=== PATIENT | female | born 1960 | race Caucasian/White ===

== ENCOUNTER 2022-12-18 12:43 | Day surgery (SDC) | payer MEDICARE, MEDICAID, SELFPAY ==
[2022-12-13 09:02] VITALS: BMI 30.6
--- NOTE | 2022-12-18 13:02 | HO.ANESPROP2 ---
[facility] Past Medical History Medical History Atrial fibrillation Chronic pain syndrome COPD (chronic obstructive pulmonary disease) Coronary atherosclerosis Depression Elevated cholesterol Fibromyalgia Gitelman syndrome Heart valve regurgitation HTN (hypertension) Hypercalcemia Hypothyroid Mild asthma Multiple sclerosis Myocardial infarction Neuropathy Opioid dependence Orthostatic hypotension Polycystic ovarian syndrome PTSD (post-traumatic stress disorder) Pulmonary embolism Raynaud's disease Sleep apnea Thyroid nodule Type 2 diabetes mellitus Surgical History Surgical History History of colon resection History of lobectomy of thyroid History of rectal surgery Hx of appendectomy Hx of dilation and curettage Hx of heart artery stent Hx of hernia repair Hx of hysterectomy Hx of reduction mammoplasty Hx of tubal ligation S/P panniculectomy History of Problems with Anesthesia: No Social History Social History Are you a primary residential care officer to a significant other at home: No Patient Tobacco Use Status: Former Tobacco user Quit Date: 2011 Tobacco use type: Cigarette Use of substances other than those prescribed or required for medical reasons: No Have you been hit, kicked, punched, or otherwise hurt by someone within the past year? If so, by whom?: No Are you DNR?: No Advance Directives: No Advance Directives Information Provided: Yes Advance Directives on File: No Recently lost weight without trying: No Eating poorly because of decreased appetite: No Nutrition Risks: No Nutritional Risk Patient : No Poor oral hygiene: Yes (2 chipped teeth) Meds Allergies Allergy/AdvReac Type Severity Reaction Status Date / Time diphenhydramine Allergy Severe Anaphylaxis Verified 12/13/22 08:34 [From Benadryl] Penicillins Allergy Severe Anaphylaxis Verified 12/13/22 08:34 Sulfa (Sulfonamide Allergy Severe Anaphylaxis Verified 12/13/22 08:34 Antibiotics) Cephalosporins Allergy Intermediate shortness Verified 12/13/22 08:34 of breath (can take cephalexin) clarithromycin Allergy Intermediate Shortness Verified 12/13/22 08:34 of Breath gabapentin Allergy Intermediate Confusion Verified 12/13/22 08:34 hydrochlorothiazide Allergy Intermediate Shortness Verified 12/13/22 08:34 [From Hyzaar] of Breath levofloxacin [From Levaquin] Allergy Intermediate dizziness/h Verified 12/13/22 08:34 eadache/ulices sea losartan [From Cozaar] Allergy Intermediate Shortness Verified 12/13/22 08:34 of Breath metformin Allergy Intermediate strange Verified 12/13/22 08:34 feeling amoxicillin [From Augmentin] Allergy Unknown Unknown Verified 12/13/22 08:34 clavulanic acid Allergy Unknown Unknown Verified 12/13/22 08:34 [From Augmentin] duloxetine [From Cymbalta] Allergy Unknown Unknown Verified 12/13/22 08:34 fluoxetine Allergy Unknown Unknown Verified 12/13/22 08:34 NSAIDS (Non-Steroidal Allergy Unknown Unknown Verified 12/13/22 08:34 Anti-Inflamma pregabalin AdvReac Intermediate Dizziness Verified 12/13/22 08:34 doxycycline AdvReac Mild Gastrointestinal Verified 12/13/22 08:34 Upset Active Medications: Current Medications Albuterol Sulfate (Albuterol Sulfate (0.083%) 2.5 Mg/3 Ml Vial.Neb) 2.5 mg INHALE ONCE PRN PRN Reason: Shortness of Breath/Wheezing Lactated Ringer's (Lr) 1,000 mls @ 50 mls/hr IVCONT .Q20H ROBERT Home Medications Medication Instructions Recorded Confirmed Last Taken Type amantadine HCl 100 mg capsule 100 mg PO BID 12/13/22 12/13/22 Unknown History apixaban 5 mg tablet (Eliquis) 5 mg PO BID 12/13/22 12/13/22 Unknown History aspirin 81 mg tablet,delayed 81 mg PO DAILY 12/13/22 12/13/22 Unknown History release brimonidine 0.2 % eye drops 1 drp ophthalmic (eye) DAILY 12/13/22 12/13/22 Unknown History dextroamphetamine-amphetamine 30 30 mg PO DAILY 12/13/22 12/13/22 Unknown History mg tablet (Adderall) dorzolamide 2 % eye drops 1 drp ophthalmic (eye) DAILY 12/13/22 12/13/22 Unknown History dulaglutide 4.5 mg/0.5 mL 4.5 mg subcut QWEEK 12/13/22 12/13/22 Unknown History subcutaneous pen injector (Trulicity) ergocalciferol (vitamin D2) 1,250 1,250 mcg PO QWEEK 12/13/22 12/13/22 Unknown History mcg (50,000 unit) capsule (Vitamin D2) estradiol 10 mcg vaginal tablet 10 mcg vaginal 2XW 12/13/22 12/13/22 Unknown History fluconazole 150 mg tablet 300 mg PO QWEEK 12/13/22 12/13/22 Unknown History glipizide 5 mg tablet 10 mg PO BID 12/13/22 12/13/22 Unknown History levothyroxine 100 mcg tablet PO 12/13/22 Unknown History lisinopril 5 mg tablet 5 mg PO DAILY 12/13/22 12/13/22 Unknown History magnesium oxide 2,000 mg PO BID 12/13/22 12/13/22 Unknown History methenamine hippurate 1 gram tablet 1 g PO DAILY 12/13/22 12/13/22 Unknown History modafinil 100 mg tablet 100 mg PO BID 12/13/22 12/13/22 Unknown History montelukast 10 mg tablet 10 mg PO DAILY 12/13/22 12/13/22 Unknown History morphine 15 mg immediate release 15 mg PO TID PRN Pain 12/13/22 12/13/22 Unknown History tablet promethazine 25 mg tablet 25 mg PO Q6H PRN Vomiting 12/13/22 12/13/22 Unknown History sildenafil (pulm.hypertension) 20 20 mg PO TID 12/13/22 12/13/22 Unknown History mg tablet spironolactone 100 mg tablet 100 mg PO DAILY 12/13/22 12/13/22 Unknown History zolpidem 5 mg tablet 5 mg PO BEDTIME 12/13/22 12/13/22 Unknown History Exam Exam Date and Time: December 18, 2022 130 Height,Weight and Vital Signs: Height 5 ft 2.5 in Weight 77.111 kg Airway Mallampati Class: III TM Dist: >3cm Neck ROM: Full Loose/Missing/Broken Teeth: Yes, Upper and Lower Heart: RRR Lungs: CTA Assessment and Plan Assessment Anesthesia Assessment: Anesthesia Plan Discussed and Chart Reviewed Final Anesthetic Review History of Problems with Anesthesia: No NPO: Yes ASA Class: III Final Preanesthetic Review: Meds/Allgs Chart Reviewed, Consent Obtained/Reviewed and Anes Risks/Benef Reviewed Patient Risk: Intermediate Procedure Risk: Low Anesthetic Plan Anesthetic Plan: GA Disposition: Standard PACU
[2022-12-18 13:20] LABS: Glucose, Whole Blood 324 mg/dL (60-115)
[2022-12-18 13:35] VITALS: BMI 30.6
[2022-12-18 13:56] LABS: Anion Gap 15 (12-20); Carbon Dioxide 24 mmol/L (22-29); Chloride 98 mmol/L (96-108); Sodium 133 mmol/L (135-145)
[2022-12-18] MEDS: Insulin Lispro 100 UNIT/ML 3 ML VIAL 10 UNIT SUBCUT (14:10)
[2022-12-18] MEDS: Lactated Ringers 1,000 ML 50 ML IVCONT (14:12)
[2022-12-18 14:32] LABS: Magnesium 1.4 mg/dL (1.6-2.6)
[2022-12-18 15:20] VITALS: BP 162/77; PULSE 66; RESP 14; TEMP 36.4; O2SAT 100
--- NOTE | 2022-12-18 15:22 | HO.OPHTHAL ---
Ophthalmology Operative Note Date of Service: 12/18/22 Narrative: Diet and diagnosis exotropia. Procedure bilateral lateral rectus recessions of [address] Estrada. Anesthesia general. Complications none. The patient was brought to the operating room placed under general anesthesia. The eyes were prepped and draped in the usual sterile ophthalmic fashion. A lid speculum was placed in the right eye and incisions made at bare sclera in the inferotemporal fornix. The lateral rectus muscle was hooked and secured with a double-armed Vicryl suture. The muscle was disinserted the globe and reattached to a position 5 mm behind the original insertion. Conjunctiva was closed with interrupted Vicryl sutures. An identical procedure was then performed on the left eye. The patient was then awoken from general anesthesia and discharged to postoperative recovery in good condition.
[2022-12-18 15:25] VITALS: BP 143/67; PULSE 64; RESP 14; O2SAT 98
[2022-12-18 15:28] LABS: Glucose, Whole Blood 271 mg/dL (60-115)
[2022-12-18 15:30] VITALS: BP 143/69; PULSE 66; RESP 16; O2SAT 96
[2022-12-18 15:32] VITALS: BP 137/68; PULSE 65; RESP 16; O2SAT 96
[2022-12-18 15:47] VITALS: BP 147/71; PULSE 69; RESP 16; TEMP 36.4; O2SAT 97
== END 2022-12-18 16:18 | disposition home or self-care (01) ==
PROVIDERS: Anesthesiology; PCP Thoracic Surgery (Cardiothoracic Vascular Surgery); Visit Provider Ophthalmology
PROC: (CPT 67311; principal; 2022-12-18 14:40)
DX: H50.15 Alternating exotropia (principal); Z79.01 Long term (current) use of anticoagulants; Z79.82 Long term (current) use of aspirin; Z79.85 Long-term (current) use of injectable non-insulin antidiabetic drugs; Z79.84 Long term (current) use of oral hypoglycemic drugs; G35 Multiple sclerosis; M79.7 Fibromyalgia; G89.4 Chronic pain syndrome; E78.5 Hyperlipidemia, unspecified; I48.91 Unspecified atrial fibrillation; I25.10 Atherosclerotic heart disease of native coronary artery without angina pectoris; Z95.5 Presence of coronary angioplasty implant and graft; I10 Essential (primary) hypertension; E11.40 Type 2 diabetes mellitus with diabetic neuropathy, unspecified; Z88.0 Allergy status to penicillin; Z88.1 Allergy status to other antibiotic agents; Z88.2 Allergy status to sulfonamides; Z88.8 Allergy status to other drugs, medicaments and biological substances; Z79.899 Other long term (current) drug therapy; Z87.891 Personal history of nicotine dependence; Z98.890 Other specified postprocedural states
CPT/HCPCS: 67311; 36415; 80051; 82947; 83735; J0131; J1100; J1885; J2250; J2405; J3010

== ENCOUNTER 2025-04-16 19:21 | Inpatient (IN) | payer OTHER, SELFPAY ==
--- NOTE | 2025-04-16 | ECG_ITS ---
Test Reason : chest pain Blood Pressure : */* mmHG Vent. Rate : 75 BPM Atrial Rate : 75 BPM P-R Int : * ms QRS Dur : 96 ms QT Int : 404 ms P-R-T Axes : * 26 -2 degrees QTcB Int : 451 ms Atrial fibrillation Incomplete right bundle branch block Abnormal ECG No previous ECGs available Referred By: Generic ED Physician Electronically Signed By: Franklin Ayers
--- NOTE | ~2025-04-16 | CT_ITS ---
CLINICAL HISTORY: abdominal pain and vomiting CT abdomen and pelvis without contrast Comparison: None provided Findings: The lung bases are clear. Prior cholecystectomy. Mdvq-vo-[id number] calcified atherosclerotic disease of the abdominal aorta. Unremarkable solid organs. No urolithiasis. No bowel obstruction, pneumoperitoneum, or pneumatosis. Pelvic contents unremarkable. Normal appendix. No acute fracture. Prior hysterectomy. There is diffuse fecal material seen throughout the colon. Prior rectal surgical anastomosis. Mild osteopenia. IMPRESSION: Constipation. Bhko-fj-czvjmlfh calcified atherosclerotic disease of the abdominal aorta. This document has been electronically signed by: Austen Lamas MD on 04/16/2025 23:12:09
--- NOTE | ~2025-04-16 | XR_ITS ---
EXAMINATION: XR CHEST CLINICAL INFORMATION: post PPM COMPARISON: X-ray 02/19/2025 TECHNIQUE: Frontal view of the chest was obtained. FINDINGS: [Cardiac pacemaker with lead tip projected over the right ventricle. Cardiomediastinal silhouette is stable. Aortic arch calcification. Slightly low lung volumes. No consolidation. No effusion. No pulmonary edema. No pneumothorax. No acute osseous findings XR/XR chest 1V IMPRESSION: No acute pulmonary process. Electronically signed by: Scout Coombs MD 04/22/2025 11:08 AM JUDY
--- NOTE | ~2025-04-16 | XR_ITS ---
CLINICAL HISTORY: s p pacemaker 1 view chest x-ray. Comparison: 04/20/2025 Findings: No consolidation or effusion. No pneumothorax. Cardiac and mediastinal contours reveal interval placement of the cardiac pacer hardware, lead tip overlies right ventricle. Bones unremarkable. Impression: 1. No acute pulmonary disease. This document has been electronically signed by: Fabricio Call MD on 04/21/2025 20:25:40
--- NOTE | ~2025-04-16 | XR_ITS ---
CLINICAL HISTORY: chest pian, shortness of breath 1 view chest x-ray Comparison: CR - XR CHEST 1V - 04/16/25 20:49 EST Findings: No consolidation or effusion. Normal size heart. No acute fracture. IMPRESSION: 1. No acute findings. This document has been electronically signed by: Narcisa Pascual MD on 04/20/2025 22:02:33
[2025-04-16 19:26] VITALS: BP 99/46; PULSE 64; O2SAT 98
[2025-04-16 19:28] VITALS: BP 95/43; PULSE 80; RESP 20; TEMP 37.2; O2SAT 97; BMI 25.5
[2025-04-16 20:15] LABS: Alanine Aminotransferase 18 U/L (0-31); Albumin Level 3.0 g/dL (3.5-5.0); Alkaline Phosphatase 305 U/L (39-117); Anion Gap 14 (12-20); Aspartate Amino Transferase 50 U/L (5-31); Blood Urea Nitrogen 37 mg/dL (9-16); Calcium 9.0 mg/dL (8.4-10.2); Carbon Dioxide 24 mmol/L (22-29); Chloride 104 mmol/L (96-108); Creatinine Clr Calc Pharmacy 28.2; Estimated Glomerular Filt Rate 30; Potassium 3.6 mmol/L (3.3-5.1); Sodium 138 mmol/L (135-145); Total Protein 6.5 g/dL (6.5-8.0)
[2025-04-16 20:21] LABS: Hematocrit 26.0 % (37.0-47.0); Hemoglobin 8.3 g/dl (12.0-16.0); Mean Corpuscular HGB Conc 31.9 g/dl (31.0-35.0); Mean Corpuscular Hemoglobin 28.8 pg (27.0-33.0); Mean Corpuscular Volume 90.3 fL (80.0-98.0); NRBC Abs Auto 0.000 X10*3/uL (0.0-0.012); NRBC Pct Auto 0.0 /100WBC (0.0-0.2); Platelet Count 402 X10*3/uL (160-400); Red Blood Count 2.88 X10*6/uL (4.20-5.50); Troponin-I High Sensitivity 9.1 ng/L (<3.5-17.0); White Blood Count 17.5 X10*3/uL (4.8-10.8)
--- OUTSIDE RECORDS SUMMARY | 2025-04-16 20:53 | XMS_ITS | Encounter Summary ---
Author Organization [facility] Address [address] [place] [address] Phone Care Team Providers Care Equine Breeder Name Role Phone Martin Bales MD Unavailable Jose Gallagher MD Unavailable [phone] Ramiro Schmidt MD Unavailable Enio Starkey MD Unavailable [phone] Kenneth Carter MD Unavailable [phone] Noe Mccann MD Unavailable Unavailable Audra Gutierrez MD Unavailable [phone] Edouard Mosley MD Unavailable Martin Green MD Primary Care Provider Nara Tejada MD Unavailable Jose Thomas MD Unavailable [phone] Trish Hammonds MD Unavailable Celina He DPM Unavailable Fabián Seaman MD Unavailable [phone] Elizabeth Goode MD Unavailable Martin Green MD Primary Care Provider +[phone] Martin Green MD Primary Care Provider +-[phone] Griselda Bello NP Primary Care Provider [phone]- [phone] Encounter Details Date Type Department Care Team (Late Contact Info) Description 05/19/2019 Transcribe Orders [facility] Pulmonary, Allergy and Critical Care Medicine [address] [place] [address] Audra Gutierrez MD [address] [place] [id number] Social History Tobacco Use Types Packs/Day Years Used Date Smoking Tobacco: Former Cigarettes 2 45 1 966 - 2010 Smokeless Tobacco: Never Alcohol Use Standard Drinks/Week Comments No 0 (1 standard drink = 0.6 oz pur e alcohol) Comments No Sex and Gender Information Value Date Recorded Sex Assigned at Female 10/17/2017 8:32 PM EDT Legal Sex Female 12:39 PM EDT Gender Identity Female 10/17/2017 8:32 PM EDT Sexual Orientation Straight 06/30/2020 5: 59 PM EST 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 documented as of this encounter Plan of Treatment Upcoming Encounters Date Type Department Care Team (Late Contact Info) Description 04/28/2025 2:00 PM EST Office Visit [facility] [address] [place] [address], [address] [place] [address] Minda Nelson DNP [address] [place] [address], [address] [address] 07/29/2025 1:00 PM EST Office Visit [facility] [address] [place] [address] 3rd [facility], [address] [place] [address] Minda Nelson DNP [address] [place] [address], [address] [address] [email or web address] 08/31/2025 11:50 AM EDT Office Visit [facility] Pulmonary, Allergy and Critical Care Medicine [address] [facility] [place] [address] Audra Gutierrez MD [address] [facility] 2nd [place] [address] [email or web address] documented as of this encounter Visit Diagnoses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documented in this encounter Additional Health Concerns Infection Onset Date Last Indicated Resolved Time 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 Infection Utility 08/05/2015 08/05/2015 07/24/2022 1:27 A M EST CoV-Risk 12/17/2019 12/20/2019 12/31/2019 3:34 AM EDT CoV-Risk 03/26/2020 03/26/2020 03/27/2020 11:4 8 AM EDT CoV-Risk 05/19/2020 05/19/2020 06/02/2020 1:24 AM EST CoV-Exposed Comment:Positive COVID-19 05/24/2021 05/24/2021 05/26/2021 5:5 6 PM EST CoV-Risk 05/26/2021 05/26/2021 05/26/2021 5:56 PM EST COVID-19 05/26/2021 05/26/2021 06/16/2021 1:23 AM EST CoV-Risk 05/29/2023 06/05/2023 06/06/2023 9:59 AM EST CoV-Risk Comment:Per note documentation 07/20/2024 07/20/2024 5:59 PM EST CoV-Risk 01/30/2025 01/30/2025 02/10/2025 1:21 AM EDT CDiff-Risk 03/21/2025 03/21/2025 03/22/2025 9:01 AM EDT CDiff-Risk 03/26/2025 03/26/2025 03/27/2025 8:59 AM EDT CDiff-Risk 04/10/2025 04/10/2025 04/10/2025 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 documented as of this encounter Care Teams Equine Breeder Relationship Specialty Start Date End Date Martin Green MD [address] [place] [address], [address] [address] [email or web address] PCP - General Internal Medicine 02/11/19 04/11/20 Martin Green MD [address] [place] [address], [address] [address] [email or web address] PCP - General Internal Medicine 04/12/20 05/25/23 Martin Green MD [address] [place] [phone] [email or web address] PCP - General Internal Medicine 05/26/23 01/25/25 Griselda Bello NP [address] [place] [address] PCP - General Nurse Practitioner 01/26/25 Martin Bales MD [address] [place] [address] [email or web address] Gastroenterology 10/07/18 11/13/20 Jose Gallagher MD [address] [place] [address], [address] [place] [address] [email or web address] Urology 10/07/18 11/13/20 Ramiro Schmidt MD [address] [place] [address], [address] [place] [address] Endocrinology 02/11/19 11/13/20 Enio Starkey MD [address] [facility], [address] [place] [address] [email or web address] Cardiology 02/11/19 11/13/20 Kenneth Carter MD [address] [place] [address] Neurology 02/11/19 11/13/20 Noe Mccann MD Ophthalmology 02/11/19 Audra Gutierrez MD [address] [address] [email or web address] Intensive Care 02/11/19 Edouard Mosley MD [address] [place] [address], [facility] [address] [place] [address] [email or web address] Plastic and Reconstructive Surgery 02/11/19 Nara Tejada MD [address] [place] [address], [address] [place] [address] Consulting Provider Nephrology 02/11/19 Jose Thomas MD [address] [place] [address] [email or web address] Consulting Provider Infectious Diseases 02/11/19 Trish Hammonds MD [address] [place] [address], [address] [place] [address] [email or web address] Rheumatology 02/11/19 Celina He DPM [address] [facility], [address] [place] [address] [email or web address] Podiatry 02/11/19 Fabián Seaman MD [address] [facility], [address] [place] [address] [email or web address] Insurance Assigned Provider 03/06/19 07/09/19 Elizabeth Goode MD [address] [place] [address] Psychologist 03/27/20 documented as of this encounter Additional Source Comments The information contained in this document represents components of the legal health record. It is not the complete legal health record.[facility]
--- OUTSIDE RECORDS SUMMARY | 2025-04-16 20:53 | XMS_ITS | Encounter Summary ---
Author Organization [facility] Address [address] [place] [address] [address] [place] [address] Phone Care Team Providers Care Attendant Arcade Name Role Phone Noe Mccann MD Unavailable Unavailable Audra Gutierrez MD Unavailable Edoaurd Mosley MD Unavailable Nara Tejada MD Unavailable [phone] Jose Thomas MD Unavailable + [phone] Trish Hammonds MD Unavailable [phone] Celina He DPM Unavailable [phone] Elizabeth Goode MD Unavailable [phone] Martin Green MD Primary Care Provider [phone] Martin Green MD Primary Care Provider [phone] Griselda Bello NP Primary Care Provider + [phone] Encounter Details Date Type Department Care Team (Late st Contact Info) Description 11/14/2020 Procedure Pass [facility], Ct Scan - [facility] [address] [place] [address] Social History Tobacco Use Types Packs/Day Years [...] 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 Wish to be (Past 1 Month) No 021 1:07 PM EDT Dara Latham RN 2. Non-Specific Active Suici aby Thoughts (Past 1 Month) No 11/14/2020 1:07 PM EDT Dara Latham RN 6. Suicidal Behavior (Lifetime) No 1:07 PM EDT Dara Latham RN documented as of this encounter Plan of Treatment Upcoming Encounters Date Type Department Care Team (Late st Contact Info) Description 04/28/2025 2:00 PM EST Office Visit [facility] [address] [place] [address], [address] [address] Minda Nelson DNP [address] [place] [address] 07/29/2025 1:00 PM EST Office Visit [facility] [address] 3rd [facility], [address] [address] Minda Nelson DNP [address] [place] [address] 08/31/2025 11:50 AM EDT Office Visit [facility] Pulmonary, Allergy and Critical Care Medicine [address] [facility] [place] [address] Audra Gutierrez MD [address] [place] [address] [place] [address] [email or web address] documented as of this encounter Visit Diagnoses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documented in this encounter Additional Health Concerns Infection Onset Date Last Indicated Resolved Time 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 Infection Utility 08/05/2015 08/05/2015 07/24/2022 1:[address] CoV-Exposed Comment:Positive COVID-19 05/24/2021 05/24/2021 05/26/2021 5:5 [...] documented as of this encounter Care Teams Attendant Arcade Relationship Specialty Start Date End Date Martin Green MD [address] [place] [address] [address] [place] [address] [email or web address] PCP - General Internal Medicine 04/12/20 05/25/23 Martin Green MD [address] [place] [address] [email or web address] PCP - General Internal Medicine 05/26/23 01/25/25 Griselda Bello, GAEL [address] [place] [address] PCP - General Nurse Practitioner 01/26/25 Noe Mccann MD Ophthalmology 02/11/19 Audra Gutierrez MD [address] [place] [address] 2nd [place] [address] Intensive Care 02/11/19 Edouard Mosley MD [address] [place] [address], [facility] [address] [place] [address] Plastic and Reconstructive Surgery 02/11/19 Nara Tejada MD [address] [place] [address], [address] [place] [address] Consulting Provider Nephrology 02/11/19 Jose Thomas MD [address] [place] [address] [email or web address] Consulting Provider Infectious Diseases 02/11/19 Trish Hammonds MD [address] [place] [address], [address] [place] [address] Rheumatology 02/11/19 Celina He DPM [address] [place] [address], [address] [place] [address] [email or web address] Podiatry 02/11/19 Elizabeth Goode MD [address] [place] [address] Psychologist 03/27/20 documented as of this encounter Additional Source Comments The information contained in this document represents components of the legal health record. It is not the complete legal health record.[facility]
--- OUTSIDE RECORDS SUMMARY | 2025-04-16 20:53 | XMS_ITS | Encounter Summary ---
Author Organization [facility] Address [address] [place] [address] Phone Care Team Providers Care Lap Winder Name Role Phone Noe Mccann MD Unavailable Unavailable Audra Gutierrez MD Unavailable Edouard Mosley MD Unavailable Nara Tejada MD Unavailable Jose Thomas MD Unavailable [phone] Trish Hammonds MD Unavailable Celina He DPM Unavailable Elizabeth Goode MD Unavailable Griselda Bello OBSTETRICS GYN PHYSICIAN Primary Care Provider [phone]- [phone] Encounter Details Date Type Department Care Team (Late st Contact Info) Description 03/26/2025 Procedure Pass [facility] CT, Josh [address] [facility], 2nd Floor, [address] [place] [address] Social History Tobacco Use Types Packs/Day Years Used Date Smoking Tobacco: Former Cigarettes 2 45 1 966 - 2010 Passive Smoke Exposure: Past Smokeless Tobacco: Never Alcohol Use Standard Drinks/Week Comments No 0 (1 standard drink = 0.6 oz pur e alcohol) Home Health Assessment: Transportation Answer Date Recorded Lack of Transportation (Medical) No 10/12/2024 Lack of Transportation (Non-Medical) No 10/12/2024 Patient Unable or Declines to Respond No 10/12/2024 Education Answer Date Recorded Are you interested in more education? Not on lucius e 10/04/2022 Are you concerned about learning?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 10/04/2022 No 10/04/2022 No 10/04/2022 Food Answer Date Recorded Within the past 6 months we worried whether our food would run out before we got money to buy more. Never True 03/10/2025 Within the past 6 months the food we bought just didn't last and we didn't have enough money to get more. Never True Residential Stability Answer Date Recor ded What is your housing situation today? I have krish sing 03/10/2025 How many times have you move d in the past 12 months? Zero (I did not move) 03/10/2025 Paying for Meds Answer Date Recorded Do you have trouble paying for medicines? No 03/10/2025 Paying Utility Bills Answer Date Record ed Do you have trouble paying your heating or elect ricity bill? No 03/10/2025 Transportation Answer Date Recorded Has the lack of transportati on kept you from medical appointments or from getting medications? No 03/10/2025 Digital Access Answer Date Recorded No 03/10/2025 Yes 03/10/2025 Do you have reliable internet access at home? Ye s 03/10/2025 Do you have a device (e.g., phone, tablet, computer) with a working camera? Yes 03/10/2025 Intimate Partner Violence Answer Date R ecorded Are you denied basic needs s uch as food, clothing, or medical care? No 03/17/2025 In the past 12 months have y ou been in a relationship with a person who hurts, threatens, or tries to control you? No 03/17/2025 Are you denied basic needs s uch as food, clothing, or medical care? No 03/17/2025 In the past 12 months have y ou been in a relationship with a person who hurts, threatens, or tries to control you? 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 documented as of this encounter Plan of Treatment Upcoming Encounters Date Type Department Care Team ([facility] st Contact Info) Description 04/28/2025 2:00 PM EST Office Visit [facility] [address] [place] [address] [address] [facility], [address] [place] [address] Minda Nelson DNP [address] [place] [address] [email or web address] 07/29/2025 1:00 PM EST Office Visit [facility] [address] [facility], [address] [place] [address] Minda Nelson DNP [address] [place] [address] 08/31/2025 11:50 AM EDT Office Visit [facility] [address] [place] [address] Audra Gutierrez MD [address] [place] [address] documented as of this encounter Visit Diagnoses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documented in this encounter Additional Health Concerns 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 03/26/2025 03/26/2025 03/27/2025 8:59 AM EDT CDiff-Risk 04/10/2025 04/10/2025 04/10/2025 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 Assessment Noted Time PHQ-9 Depression Total Score: 20 021 1:11 PM EDT PHQ-2 Depression Total Score: 6 01/16/20 21 1:11 PM EDT documented as of this encounter Care Teams Lap Winder Relationship Specialty Start Date End Date AceGriseldaGAEL fine [address] [place] [address] PCP - General Nurse Practitioner 01/26/25 Noe Mccann MD Ophthalmology 02/11/19 Audra Gutierrez MD [address] [place] [address] 2nd [place] [address] [email or web address] Intensive Care 02/11/19 Edouard Mosley MD [address] [place] [address] [email or web address] Plastic and Reconstructive Surgery 02/11/19 Nara Tejada MD [address] [place] [address], [address] [place] [address] [email or web address] Consulting Provider Nephrology 02/11/19 Jose Thomas MD [address] [place] [address] [email or web address] Consulting Provider Infectious Diseases 02/11/19 Trish Hammonds MD [address] [place] [address] [email or web address] Rheumatology 02/11/19 Celina He DPM [address] [place] [address] Podiatry 02/11/19 Elizabeth Goode MD [address] [facility] 200 [place] [address] Psychologist 03/27/20 documented as of this encounter Additional Source Comments The information contained in this document represents components of the legal health record. It is not the complete legal health record.[facility]
--- OUTSIDE RECORDS SUMMARY | 2025-04-16 20:53 | XMS_ITS | Encounter Summary ---
Author Organization [facility] Address [address] [place] [address] [address] [place] [address] Phone Care Team Providers Care Laundry Route Driver Name Role Phone Noe Mccann MD Unavailable Unavailable Audra Gutierrez MD Unavailable Edouard Mosley MD Unavailable Nara Tejada MD Unavailable [phone] Jose Thomas MD Unavailable + [phone] Trish Hammonds MD Unavailable [phone] Celina He DPM Unavailable [phone] Elizabeth Goode MD Unavailable [phone] Martin Green MD Primary Care Provider [phone] Martin Green MD Primary Care Provider [phone] Griselda Bello NP Primary Care Provider + [phone] Encounter Details Date Type Department Care Team (Late st Contact Info) Description 11/14/2020 Procedure Pass [facility] Ct Scan - [facility] [address] [place] [address] Social History Tobacco Use Types Packs/Day Years [...] 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 documented as of this encounter Functional Status * Calculated C-SSRS Risk Score (Lifetime/Recent) Answer Date of Assessment Author No Risk Indicated 11/14/2020 1:07 PM EDT Dara Latham RN * [place] Suicide Severity Rating Scale (Screener/Recent Self-Report) Question [...] Description 04/28/2025 2:00 PM EST Office Visit [facility] [address] [place] [address], [address] [address] Minda Nelson DNP [address] [place] [address] 07/29/2025 1:00 PM EST Office Visit [facility] [address] 3rd [facility], [address] [address] Minda Nelson DNP [address] [place] [address] 08/31/2025 11:50 AM EDT Office Visit [facility] [address] [facility] [address] [place] [address] Audra Gutierrez MD [address] [place] [address] [place] [address] [email or web address] documented as of this encounter Visit Diagnoses [...] documented as of this encounter Care Teams Laundry Route Driver Relationship Specialty Start Date End Date Martin Green MD [address] [place] [address] [address] [place] [address] [email or web address] PCP - General Internal Medicine 04/12/20 05/25/23 Martin Green MD [address] [place] [address] [email or web address] PCP - General Internal Medicine 05/26/23 01/25/25 Griselda Bello, GAEL [address] [place] [address] PCP - General Nurse Practitioner 01/26/25 Noe Mccann MD Ophthalmology 02/11/19 Audra Gutierrez MD [address] [place] [address] 2nd [place] [address] Intensive Care 02/11/19 Edouard Mosley MD [address] [place] [address], [facility] [address] [place] [address] Plastic and Reconstructive Surgery 02/11/19 Nara Tejada MD [address] [place] [address], [address] [place] [address] Consulting Provider Nephrology 02/11/19 Jose Thomas MD [address] [place] [address] [email or web address] Consulting Provider Infectious Diseases 02/11/19 Trish Hammonds MD [address] [place] [address], [address] [place] [address] Rheumatology 02/11/19 Celina He DPM [address] [place] [address], [address] [place] [address] [email or web address] Podiatry 02/11/19 Elizabeth Goode MD [address] [place] [address] Psychologist 03/27/20 documented as of this encounter Additional Source Comments The information contained in this document represents components of the legal health record. It is not the complete legal health record.[facility]
--- OUTSIDE RECORDS SUMMARY | 2025-04-16 20:53 | XMS_ITS | Encounter Summary ---
Author Organization [facility] [place] Address [address] [place] [address] Phone Care Team Providers Care Sales Assistant Entertainment [employer] Media Name Role Phone Noe Mccann MD Unavailable Unavailable Audra Gutierrez MD Unavailable Edouard Mosley MD Unavailable Nara Tejada MD Unavailable Jose Thomas MD Unavailable [phone] Trish Hammonds MD Unavailable Celina He DPM Unavailable Elizabeth Goode MD Unavailable Griselda Bello COPY COORDINATOR Primary Care Provider [phone] Encounter Details Date Type Department Care Team (Late st Contact Info) Description 04/04/2025 Procedure Pass [facility], Josh 2 [address] [facility], 2nd Floor, [address] [place] [address] Social History Tobacco Use Types Packs/Day Years [...] 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 documented as of this encounter Plan of Treatment Upcoming Encounters Date Type Department Care Team ([facility] st Contact Info) Description 04/28/2025 2:00 PM EST Office Visit [facility] [address] [place] [address] 3rd [facility], [address] [place] [address] Minda Nelson DNP [address] [place] [address] 07/29/2025 1:00 PM EST Office Visit [facility] [address] [place] [address] 3rd Floor, [address] [place] [address] Minda Nelson DNP [address] [place] [address] 08/31/2025 11:50 AM EDT Office Visit [facility] [address] [place] [address] Audra Gutierrez MD [address] [place] [address] documented as of this encounter Visit Diagnoses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documented in this encounter Additional Health Concerns 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 04/10/2025 04/10/2025 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 Assessment Noted Time PHQ-9 Depression Total Score: 20 021 1:11 PM EDT PHQ-2 Depression Total Score: 6 01/16/20 21 1:11 PM EDT documented as of this encounter Care Teams Sales Assistant Entertainment And Media Relationship Specialty Start Date End Date Ace Griseldajourdan Cancino, GAEL [address] [place] [address] PCP - General Nurse Practitioner 01/26/25 Noe Mccann MD Ophthalmology 02/11/19 Audra Gutierrez MD [address] [place] [address] 2nd [place] [address] [email or web address] Intensive Care 02/11/19 Edouard Mosley MD [address] [place] [address], [facility] 202 [place] [address] [email or web address] Plastic and Reconstructive Surgery 02/11/19 Nraa Tejada MD [address] [place] [address], [address] [place] [address] [email or web address] Consulting Provider Nephrology 02/11/19 Jose Thomas MD [address] [place] [address] [email or web address] Consulting Provider Infectious Diseases 02/11/19 Trish Hammonds MD [address] [place] [address], [address] [address] Rheumatology 02/11/19 Celina He DPM [address] [place] [address], [address] [address] Podiatry 02/11/19 Elizabeth Goode MD [address] [facility] 200 [place] [address] Psychologist 03/27/20 documented as of this encounter Additional Source Comments The information contained in this document represents components of the legal health record. It is not the complete legal health record.[facility] [place]
--- OUTSIDE RECORDS SUMMARY | 2025-04-16 20:53 | XMS_ITS | Encounter Summary ---
Author Organization [facility] Address [address] [place] [address] Phone Care Team Providers Care Auctioneer Art Name Role Phone Noe Mccann MD Unavailable Unavailable Audra Gutierrez MD Unavailable [phone] Edouard Mosley MD Unavailable Nara Tejada MD Unavailable [phone] Jose Thomas MD Unavailable [phone] Trish Hammonds MD Unavailable Celina He DPM Unavailable [phone] Elizabeth Goode MD Unavailable Griselda Bello JUNIOR SYSTEMS ANALYST Primary Care Provider [phone] Encounter Details Date Type Department Care Team (Late st Contact Info) Description 03/26/2025 Procedure Pass [facility] CT, Josh 2 [address] [facility], 2nd Floor, [address] [place] [address] Social History Tobacco Use Types Packs/Day Years [...] 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 documented as of this encounter Plan of Treatment Upcoming Encounters Date Type Department Care Team ([facility] st Contact Info) Description 04/28/2025 2:00 PM EST Office Visit [facility] [address] [place] [address] [address]rd [facility], [address] [place] [address] Minda Nelson DNP [address] [place] [address] 07/29/2025 1:00 PM EST Office Visit [facility] [address] [facility], [address] [place] [address] Minda Nelson DNP [address] [place] [address] 08/31/2025 11:50 AM EDT Office Visit [facility] [address] [place] [address] Audra Gutierrez MD [address] [place] [address] documented as of this encounter Visit Diagnoses [...] documented as of this encounter Care Teams Auctioneer Art Relationship Specialty Start Date End Date AceGriseldaGAEL fine [address] [place] [address] PCP - General Nurse Practitioner 01/26/25 oNe Mccann MD Ophthalmology 02/11/19 Audra Gutierrez MD [address] [place] [address] 2nd [place] [address] [email or web address] Intensive Care 02/11/19 Edouard Mosley MD [address] [place] [address] [email or web address] Plastic and Reconstructive Surgery 02/11/19 Nara Tejada MD [address] [place] [address], [address] [place] [address] [email or web address] Consulting Provider Nephrology 02/11/19 Jose Thomas MD [address] [place] [address] [email or web address] Consulting Provider Infectious Diseases 02/11/19 Trish Hammonds MD [address] [place] [address] [email or web address] Rheumatology 02/11/19 Celina He DPM [address] [place] [address] Podiatry 02/11/19 Elizabeth Goode MD [address] [facility] 200 [place] [address] Psychologist 03/27/20 documented as of this encounter Additional Source Comments The information contained in this document represents components of the legal health record. It is not the complete legal health record.[facility]
--- OUTSIDE RECORDS SUMMARY | 2025-04-16 20:53 | XMS_ITS | Encounter Summary ---
Author Organization [facility] Address [address] [place] [address] Phone Care Team Providers Care Survey Associate Name Role Phone Noe Mccann MD Unavailable Unavailable Audra Gutierrez MD Unavailable Edouard Mosley MD Unavailable Nara Tejada MD Unavailable Jose Thomas MD Unavailable [phone] Trish Hammonds MD Unavailable Celina He DPM Unavailable Elizabeth Goode MD Unavailable [phone] Griselda Bello CARCASS WASHER Primary Care Provider [phone] Reason for Visit * Auth/Cert (Routine) Specialty Diagnoses / Procedures Referred By Ludwin christie Referred To Contact Diagnoses Renal failure MS, Liver Failure, Renal Failure Referral ID Status Reason Start Date Expiration Date Visits Re quested Visits Authorized [id number] 1 1 Encounter Details Date Type Department Care Team (Late st Contact Info) Description 04/15/2025 Lab Requisition [facility] Lab Main [address] [place] [address] Alia Vail, DNP [address] [place] [address] [email or web address] Encounter for general adult medical examination without abnormal findings Social History Tobacco Use Types Packs/Day Years [...] your housing situation today? 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 documented as of this encounter Plan of Treatment Upcoming Encounters Date Type Department Care Team (Late st Contact Info) Description 04/28/2025 2:00 PM EST Office Visit [facility] [address] [place] [address], [address] [address] Minda Nelson DNP [address] [place] [address] 07/29/2025 1:00 PM EST Office Visit [facility] [address], [address] [address] Minda Nelson DNP [address] [place] [address] 08/31/2025 11:50 AM EDT Office Visit [facility] 10 [place] [address] Audra Gutierrez MD [address] [address] documented as of this encounter Procedures Procedure Name Priority Date/Time Associated Diagnosis Comments MAGNESIUM Today 04/15/2025 6:40 AM EST Encounter for general adult medical examination without abnormal findings BASIC METABOLIC PANEL (BMP) Today 04/15/2025 6:40 AM EST Encounter for general adult medical examination without abnormal findings documented in this encounter Results * Magnesium (04/15/2025 6:40 AM EST) Magnesium 1.8 1.7 - 2.6 mg/dL 04/15/2025 8:26 AM EST [facility] Blood (Blood) 04/15/2025 6:4 0 AM EST 04/15/2025 7:39 AM EST us Alia Vail DNP LAB BLOOD BKR ORDERABLES Fi nal Result Performing Organization Address City/State/[facility] Co de Phone Number [address] [address] * (ABNORMAL) Basic Metabolic Panel (BMP) (04/15/2025 6:40 AM EST) Sodium 137 136 - 145 mmol/L 04/15/2025 8:26 AM EST [facility] Potassium 4.2 3.4 - 5.1 mmol/L 04/15/2025 8:26 AM EST [facility] Chloride 104 98 - 107 mmol/L 04/15/2025 8:26 AM EST [facility] CO2 20 20 - 31 mmol/L 04/15/2025 8:26 AM EST [facility] Anion Gap 13 3 - 17 mmol/L 04/15/2025 8:26 AM EST [facility] BUN 33(H) 6 - 23 mg/dL 04/15/2025 8:26 AM [facility] Creatinine 1.46(H) 0.50 - 1.00 mg/dL 04/15/2025 8:26 AM [facility] eGFR 39(L) >59 mL/min/1. 73m2 04/15/2025 8:26 AM EST [facility] Comment:Estimated glomerular filtration rate calculated using the CKD-EPI refit equation. 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 Assessment Noted Time PHQ-9 Depression Total Score: 20 021 1:11 PM EDT PHQ-2 Depression Total Score: 6 01/16/20 21 1:11 PM EDT documented as of this encounter Care Teams Survey Associate Relationship Specialty Start Date End Date Griselda Bello NP [address] [place] [address] PCP - General Nurse Practitioner 01/26/25 Noe Mccann MD Ophthalmology 02/11/19 Audra Gutierrez MD [address] [place] [address] 2nd [place] [address] [email or web address] Intensive Care 02/11/19 Edouard Mosley MD [address] [place] [address], [address] [place] [address] Plastic and Reconstructive Surgery 02/11/19 Nara Tejada MD [address] [facility], [address] [place] [address] Consulting Provider Nephrology 02/11/19 Jose Thomas MD [address] [place] [address] [email or web address] Consulting Provider Infectious Diseases 02/11/19 Trish Hammonds MD [address] [facility] [place], [address] [address] [email or web address] Rheumatology 02/11/19 Celina He DPM [address] [facility] [place], [address] [address] [email or web address] Podiatry 02/11/19 Elizabeth Goode MD [address] [place] [address] Psychologist 03/27/20 documented as of this encounter Additional Source Comments The information contained in this document represents components of the legal health record. It is not the complete legal health record.[facility]
--- OUTSIDE RECORDS SUMMARY | 2025-04-16 20:53 | XMS_ITS | Encounter Summary ---
Author Organization [facility] Address [address] [facility] [address] [place] [address] Phone Care Team Providers Care Watch And Clock Repairer Name Role Phone Noe Mccann MD Unavailable Unavailable Audra Gutierrez MD Unavailable Edouard Mosley MD Unavailable Nara Tejada MD Unavailable Jose Thomas MD Unavailable [phone] Trish Hammonds MD Unavailable [phone] Celina He DPM Unavailable Elizabeth Goode MD Unavailable Griselda Bello STRAP SEWER Primary Care Provider [phone] Encounter Details Date Type Department Care Team (Late st Contact Info) Description 04/05/2025 Procedure Pass [facility] [place] Thread Tool Grinder Set Up Operator [address] [facility], [address] 9, [address] [place] [address] Social History Tobacco Use Types Packs/Day Years [...] 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 documented as of this encounter Plan of Treatment Upcoming Encounters Date Type Department Care Team ([facility] st Contact Info) Description 04/28/2025 2:00 PM EST Office Visit [facility] [address] [place] [address] 3rd [facility], [address] [place] [address] Minda Nelson DNP [address] [place] [address] 07/29/2025 1:00 PM EST Office Visit [facility] [address] 3rd [facility], [address] [place] [address] Minda Nelson DNP [address] [place] [address] 08/31/2025 11:50 AM EDT Office Visit [facility] [address] [place] [address] Audra Gutierrez MD [address] [place] [address] documented as of this encounter Visit Diagnoses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documented in this encounter Additional Health Concerns 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 04/10/2025 04/10/2025 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 Assessment Noted Time PHQ-9 Depression Total Score: 20 021 1:11 PM EDT PHQ-2 Depression Total Score: 6 01/16/20 21 1:11 PM EDT documented as of this encounter Care Teams Watch And Clock Repairer Relationship Specialty Start Date End Date Ace Griseldajourdan Cancino, GAEL [address] [place] [address] PCP - General Nurse Practitioner 01/26/25 Noe Mccann MD Ophthalmology 02/11/19 Audra Gutierrez MD [address] [place] [address] 2nd [place] [address] [email or web address] Intensive Care 02/11/19 Edouard Mosley MD [address] [place] [address], [facility] 202 [place] [address] [email or web address] Plastic and Reconstructive Surgery 02/11/19 Nara Tejada MD [address] [place] [address], [address] [place] [address] Consulting Provider Nephrology 02/11/19 Jose Thomas MD [address] [place] [address] [email or web address] Consulting Provider Infectious Diseases 02/11/19 Trish Hammonds MD [address] [place] [address], [address] [address] Rheumatology 02/11/19 Celina He DPM [address] [place] [address], [address] [place] [address] Podiatry 02/11/19 Elizabeth Goode MD [address] [facility] 200 [place] [address] Psychologist 03/27/20 documented as of this encounter Additional Source Comments The information contained in this document represents components of the legal health record. It is not the complete legal health record.[facility]
--- OUTSIDE RECORDS SUMMARY | 2025-04-16 20:53 | XMS_ITS | Encounter Summary ---
Author Organization [facility] Address [address] [facility] [address] [place] [address] Phone Care Team Providers Care Meat Scrubber Name Role Phone Noe Mccann MD Unavailable Unavailable Audra Gutierrez MD Unavailable Edouard Mosley MD Unavailable Nara Tejada MD Unavailable [phone] Jose Thomas MD Unavailable [phone] Trish Hammonds MD Unavailable Celina He DPM Unavailable Elizabeth Goode MD Unavailable Griselda Bello BULLDOZER MECHANIC Primary Care Provider [phone] Encounter Details Date Type Department Care Team (Late st Contact Info) Description 04/03/2025 Procedure Pass [facility] [place], Josh [address] [facility], 2nd Floor, [address] [place] [address] Social History Tobacco Use Types Packs/Day Years [...] 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, [address] [place] [address] Minda Nelson DNP [address] [place] [address] 07/29/2025 1:00 PM EST Office Visit [facility] [address] [place] [address] 3rd Floor, [address] [place] [address] Minda Nelson DNP [address] [place] [address] 08/31/2025 11:50 AM EDT Office Visit [facility] [address] [place] [address] Audra Gutierrez MD [address] [place] [address] documented as of this encounter Visit Diagnoses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documented in this encounter Additional Health Concerns 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 04/10/2025 04/10/2025 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 Assessment Noted Time PHQ-9 Depression Total Score: 20 021 1:11 PM EDT PHQ-2 Depression Total Score: 6 01/16/20 21 1:11 PM EDT documented as of this encounter Care Teams Meat Scrubber Relationship Specialty Start Date End Date Ace Griseldajourdan Cancino, GAEL [address] [place] [address] PCP - General Nurse Practitioner 01/26/25 Noe Mccann MD Ophthalmology 02/11/19 Audra Gutierrez MD [address] [place] [address] 2nd [place] [address] [email or web address] Intensive Care 02/11/19 Edouard Mosley MD [address] [place] [address], [facility] 202 [place] [address] [email or web address] Plastic and Reconstructive Surgery 02/11/19 Nara Tejada MD [address] [place] [address], [address] [place] [address] [email or web address] Consulting Provider Nephrology 02/11/19 Jose Thomas MD [address] [place] [address] [email or web address] Consulting Provider Infectious Diseases 02/11/19 Trish Hammonds MD [address] [place] [address], [address] [address] Rheumatology 02/11/19 Celina He DPM [address] [place] [address], [address] [address] Podiatry 02/11/19 Elizabeth Goode MD [address] [facility] 200 [place] [address] Psychologist 03/27/20 documented as of this encounter Additional Source Comments The information contained in this document represents components of the legal health record. It is not the complete legal health record.[facility]
--- OUTSIDE RECORDS SUMMARY | 2025-04-16 20:53 | XMS_ITS | Encounter Summary ---
Author Organization [facility] Address [address] [facility] [address] [place] [address] Phone Care Team Providers Care Information Systems Coordinator Name Role Phone Noe Mccann MD Unavailable Unavailable Audra Gutierrez MD Unavailable [phone] Edouard Mosley MD Unavailable Nara Tejada MD Unavailable [phone] Jose Thomas MD Unavailable [phone] Trish Hammonds MD Unavailable [phone] Celina He DPM Unavailable [phone] Elizabeth Goode MD Unavailable [phone] Griselda Bello VP OF MARKETING Primary Care Provider [phone] Reason for Visit * Auth/Cert (Routine) Specialty Diagnoses / Procedures Referred By Ludwin christie Referred To Contact Diagnoses Renal failure MS, Liver Failure, Renal Failure Referral ID Status Reason Start Date Expiration Date Visits Re quested Visits Authorized [id number] 1 1 Encounter Details Date Type Department Care Team (Late st Contact Info) Description 04/15/2025 Lab Requisition [facility] Lab Main [address] [place] [address] Alia Vail, DNP [address] BLK [address] [place] [address] [email or web address] Encounter for general adult medical examination without [...] 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 documented as of this encounter Plan of Treatment Upcoming Encounters Date Type Department Care Team (Late st Contact Info) Description 04/28/2025 2:00 PM EST Office Visit [facility] [address] [place] [address], [address] [address] Minda Nelson DNP [address] [place] [address] 07/29/2025 1:00 PM EST Office Visit [facility] [address], [address] [address] Minad Nelson DNP [address] [place] [address] 08/31/2025 11:50 AM EDT Office Visit [facility] 10 [place] [address] Audra Gutierrez MD [address] [address] Pending Results Name Type Priority Associated Diagnoses Date /Time Basic Metabolic Panel (BMP) Lab Today Encounter for general adult medical examination without abnormal findings 04/15/2025 6:40 AM EST Magnesium Lab Today Encounter for general adult medical examination without abnormal findings 04/15/2025 6:40 AM EST documented as of this encounter Visit Diagnoses Diagnosis Encounter for general adult medical examination without abnormal findings documented in this encounter 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 Assessment Noted Time PHQ-9 Depression Total Score: 20 021 1:11 PM EDT PHQ-2 Depression Total Score: 6 01/16/20 21 1:11 PM EDT documented as of this encounter Care Teams Information Systems Coordinator Relationship Specialty Start Date End Date Griselda Bello NP [address] [place] [address] PCP - General Nurse Practitioner 01/26/25 Noe Mccann MD Ophthalmology 02/11/19 Audra Gutierrez MD [address] [place] [address] 2nd [place] [address] [email or web address] Intensive Care 02/11/19 Edouard Mosley MD [address] [place] [address], [address] [place] [address] [email or web address] Plastic and Reconstructive Surgery 02/11/19 Nara Tejada MD [address] [place] [address], [address] [place] [address] [email or web address] Consulting Provider Nephrology 02/11/19 Jose Thomas MD [address] [place] [address] [email or web address] Consulting Provider Infectious Diseases 02/11/19 Trish Hammonds MD [address] [facility], [address] [address] Rheumatology 02/11/19 Celina He DPM [address] [facility], [address] [address] Podiatry 02/11/19 Elizabeth Goode MD [address] [place] [address] Psychologist 03/27/20 documented as of this encounter Additional Source Comments The information contained in this document represents components of the legal health record. It is not the complete legal health record.[facility]
--- OUTSIDE RECORDS SUMMARY | 2025-04-16 20:53 | XMS_ITS | Encounter Summary ---
Author Organization [facility] Address [address] [place] [address] [place] [address] Phone Care Team Providers Care Manager Audio Name Role Phone Noe Mccann MD Unavailable Unavailable Audra Gutierrez MD Unavailable [phone] Edouard Mosley MD Unavailable Nara Tejada MD Unavailable [phone] Jose Thomas MD Unavailable + [phone] Trish Hammonds MD Unavailable [phone] Celina He DPM Unavailable [phone] Elizabeth Goode MD Unavailable [phone] Martin Green MD Primary Care Provider + Martin Green MD Primary Care Provider + Griselda Bello NP Primary Care Provider + [phone] Encounter Details Date Type Department Care Team (Late st Contact Info) Description 02/23/2021 Ancillary Orders [facility],Outside Imaging [address] [place], [place] [id number] System, Provider Not In, [place] [address] Social History Tobacco Use Types Packs/Day Years Used Date Smoking Tobacco: Former Cigarettes 2 45 1 966 - 2011 Smokeless Tobacco: Never Alcohol Use Standard Drinks/Week [...] 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 documented as of this encounter Plan of Treatment Upcoming Encounters Date Type Department Care Team ([facility] st Contact Info) Description 04/28/2025 2:00 PM EST Office Visit [facility] [address], [address] [address] Minda Nelson DNP [address] [place] [address] 07/29/2025 1:00 PM EST Office Visit [address], [address] [address] Minda Nelson DNP [address] [place] [address] 08/31/2025 11:50 AM EDT Office Visit [facility], Allergy and Critical Care Medicine [address] [place] [address] Audra Gutierrez MD [address] [address] documented as of this encounter Results * CT Chest Outside (No Interpretation) (02/19/2021 12:00 AM EDT) Narrative SYSTEMGENERATED, DOCUMENTATION - 02/23/2021 1:05 PM EDT This study is for PACS storage only and not for interpretation. us Provider Not In System PhD IMG OUTSIDE IMAGING W /OUT INTERPRETATION Final Result documented in this encounter Visit Diagnoses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documented [...] documented as of this encounter Care Teams Manager Audio Relationship Specialty Start Date End Date Martin Green MD [address] [address] PCP - General Internal Medicine 04/12/20 05/25/23 Martin Green MD 238 [place] [address] [email or web address] PCP - General Internal Medicine 05/26/23 01/25/25 Griselda Bello, GAEL [address] [place] [address] PCP - General Nurse Practitioner 01/26/25 Noe Mccann MD Ophthalmology 02/11/19 Audar Gutierrez MD [address] [place] [address] 2nd [place] [address] [email or web address] Intensive Care 02/11/19 Edouard Mosley MD [address] [place] [address], [facility] 202 [place] [address] Plastic and Reconstructive Surgery 02/11/19 Nara Tejada MD [address] [place] [address], [address] [place] [address] Consulting Provider Nephrology 02/11/19 Jose Thomas MD [address] [place] [address] [email or web address] Consulting Provider Infectious Diseases 02/11/19 Trish Hammonds MD [address] [place] [address], [address] [place] [address] Rheumatology 02/11/19 Celina He DPM [address] [place] [address], [address] [place] [address] [email or web address] Podiatry 02/11/19 Elizabeth Goode MD [address] [place] [address] Psychologist 03/27/20 documented as of this encounter Additional Source Comments The information contained in this document represents components of the legal health record. It is not the complete legal health record.[facility]
--- OUTSIDE RECORDS SUMMARY | 2025-04-16 20:53 | XMS_ITS | Encounter Summary ---
Author Organization [facility] Address [address] [facility] [address] [place] [address] Phone Care Team Providers Care Drywall Hanger Framer Name Role Phone Noe Mccann MD Unavailable Unavailable Audra Gutierrez MD Unavailable [phone] Edouard Mosley MD Unavailable Nara Tejada MD Unavailable Jose Thomas MD Unavailable [phone] Trish Hammonds MD Unavailable [phone] Celina He DPEvelin Unavailable [phone] Elizabeth Goode MD Unavailable Griselda Bello PELLET POST INSPECTOR Primary Care Provider [phone] Encounter Details Date Type Department Care Team (Late st Contact Info) Description 03/24/2025 Procedure Pass [facility] [place] [address] [place] [address] Social History Tobacco Use Types Packs/Day Years [...] 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 st Contact Info) Description 04/28/2025 2:00 PM EST Office Visit [facility] [address] [place] [address], [address] [address] Minda Nelson DNP [address] [place] [address] [email or web address] 07/29/2025 1:00 PM EST Office Visit [facility] [address], [address] [address] Minda Nelson DNP [address] [place] [address] [email or web address] 08/31/2025 11:50 AM EDT Office Visit [facility], Allergy and Critical Care Medicine [address] [place] [address] Audra Gutierrez MD [address] [place] [address] documented as of this encounter Visit Diagnoses [...] documented as of this encounter Care Teams Drywall Hanger Framer Relationship Specialty Start Date End Date Griselda Bello NP [address] [place] [address] PCP - General Nurse Practitioner 01/26/25 Noe Mccann MD Ophthalmology 02/11/19 Audra Gutierrez MD [address] [place] [address] 2nd [place] [address] [email or web address] Intensive Care 02/11/19 Edouard Mosley MD [address] [place] [address], [address] [place] [address] [email or web address] Plastic and Reconstructive Surgery 02/11/19 Nara Tejada MD [address] [place] [address], [address] [place] [address] [email or web address] Consulting Provider Nephrology 02/11/19 Jose Thomas MD [address] [place] [address] [email or web address] Consulting Provider Infectious Diseases 02/11/19 Trish Hammonds MD [address] [place] [address], [address] [place] [address] [email or web address] Rheumatology 02/11/19 Celina He DPM 22 [facility], [address] [place] [address] Podiatry 02/11/19 Elizabeth Goode MD [address] [place] [address] Psychologist 03/27/20 documented as of this encounter Additional Source Comments The information contained in this document represents components of the legal health record. It is not the complete legal health record.[facility]
--- OUTSIDE RECORDS SUMMARY | 2025-04-16 20:53 | XMS_ITS | Encounter Summary ---
Author Organization [facility] Address [address] [place] [address] Phone Care Team Providers Care Security Systems Engineer Name Role Phone Noe Mccann MD Unavailable Unavailable Audra Gutierrez MD Unavailable Edouard Mosley MD Unavailable Nara Tejada MD Unavailable [phone] Jose Thomas MD Unavailable [phone] Trish Hammonds MD Unavailable Celina He DPM Unavailable [phone] Elizabeth Goode MD Unavailable [phone] Griselda Bello SURGICAL ASSISTANT CERTIFIED Primary Care Provider [phone] Reason for Visit * Auth/Cert (Routine) Specialty Diagnoses / Procedures Referred By Ludwin christie Referred To Contact Diagnoses Renal failure MS, Liver Failure, Renal Failure Referral ID Status Reason Start Date Expiration Date Visits Re quested Visits Authorized [id number] 1 1 Encounter Details Date Type Department Care Team (Late st Contact Info) Description 04/15/2025 Lab Requisition [facility] [address] [place], [place] [id number] Virginia Gonsales MD [id number] [place] [address] [email or web address] Encounter for general adult medical examination without [...] 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 documented as of this encounter Plan of Treatment Upcoming Encounters Date Type Department Care Team (Late st Contact Info) Description 04/28/2025 2:00 PM EST Office Visit [facility] [address] [place] [address], [address] [address] Minda Nelson DNP [address] [place] [address] 07/29/2025 1:00 PM EST Office Visit [facility] [address], [address] [address] Minda Nelson DNP [address] [place] [address] 08/31/2025 11:50 AM EDT Office Visit [facility] 10 [place] [address] Audra Gutierrez MD [address] [address] documented as of this encounter Procedures Procedure Name Priority Date/Time Associated Diagnosis Comments CBC Today 04/15/2025 6:40 AM EST Encounter for general adult medical examination without abnormal findings documented in this encounter Results * (ABNORMAL) CBC (04/15/2025 6:40 AM EST) WBC 16.89(H) 4.00 - 11.00 K/uL 04/15/2025 8:03 AM [facility] RBC 2.82(L) 4.00 - 5.20 M/uL 04/15/2025 8:03 AM [facility] Hemoglobin 8.2(L) 12.0 - 16.0 g/dL 04/15/2025 8:03 AM [facility] Hematocrit 25.3(L) 36.0 - 46.0 % 04/15/2025 8:03 AM [facility] MCV 89.7 80.0 - 100.0 fL 04/15/2025 8:03 AM [facility] MCH 29.1 27.0 - 31.0 pg 04/15/2025 8:03 AM [facility] MCHC 32.4 32.0 - 36.0 g/dL 04/15/2025 8:03 AM [facility] PLT 342 150 - 450 K/uL 04/15/2025 8:03 AM [facility] MPV 9.3 8.4 - 12.0 fL 04/15/2025 8:03 AM [facility] RDW-CV 16.5(H) 11.5 - 14.5 % 04/15/2025 8:03 AM [facility] Absolute NRBC 0.00 <=0.00 K cells/uL 04/15/2025 8:03 AM [facility] NRBC 0.0 <=0.0 /100 WBCs 04/15/2025 8:03 AM [facility] Blood (Blood) 04/15/2025 6:4 0 AM EST 04/15/2025 7:46 AM EST us Virginia Gonsales MD LAB BLOOD BKR ORDERABLES Final R esult [facility] [address] [place] [address] documented in this encounter Visit Diagnoses Diagnosis Encounter for general adult medical examination without abnormal findings documented in this encounter 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 Assessment Noted Time PHQ-9 Depression Total Score: 20 021 1:11 PM EDT PHQ-2 Depression Total Score: 6 01/16/20 21 1:11 PM EDT documented as of this encounter Care Teams Security Systems Engineer Relationship Specialty Start Date End Date Griselda Bello NP [address] [place] [address] PCP - General Nurse Practitioner 01/26/25 Noe Mccann MD Ophthalmology 02/11/19 Audra Gutierrez MD [address] [place] [address] 2nd [place] [address] [email or web address] Intensive Care 02/11/19 Edouard Mosley MD [address] [place] [address], [address] [place] [address] [email or web address] Plastic and Reconstructive Surgery 02/11/19 Nara Tejada MD [address] [place] [address], [address] [place] [address] [email or web address] Consulting Provider Nephrology 02/11/19 Jose Thomas MD [address] [place] [address] [email or web address] Consulting Provider Infectious Diseases 02/11/19 Trish Hammonds MD [address] [place] [address], [address] [place] [address] Rheumatology 02/11/19 Celina He DPM [address] [place] [address], [address] [place] [address] Podiatry 02/11/19 Elizabeth Goode MD [address] [place] [address] Psychologist 03/27/20 documented as of this encounter Additional Source Comments The information contained in this document represents components of the legal health record. It is not the complete legal health record.[facility]
--- OUTSIDE RECORDS SUMMARY | 2025-04-16 20:53 | XMS_ITS | Encounter Summary ---
Author Organization [facility] Address [address] [place] [address] [address] [place] [address] Phone Care Team Providers Care Transformer Assembler Name Role Phone Noe Mccann MD Unavailable Unavailable Audra Gutierrez MD Unavailable Edouard Mosley MD Unavailable Nara Tejada MD Unavailable Jose Thomas MD Unavailable [phone] Trish Hammonds MD Unavailable Celina He DPEvelin Unavailable Elizabeth Goode MD Unavailable Griselda Bello LICENSE CLERK Primary Care Provider [phone] Encounter Details Date Type Department Care Team (Late st Contact Info) Description 03/31/2025 Procedure Pass [facility], [address], Floor 1 [place] [address] Social History Tobacco Use Types Packs/Day Years [...] 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 documented as of this encounter Plan of Treatment Upcoming Encounters Date Type Department Care Team ([facility] st Contact Info) Description 04/28/2025 2:00 PM EST Office Visit [facility] [address] [place] [address], [address] [place] [address] Minda Nelson DNP [address] [place] [address] 07/29/2025 1:00 PM EST Office Visit [address], [address] [address] Minda Nelson DNP [address] [place] [address] 08/31/2025 11:50 AM EDT Office Visit [facility] [address] [place] [address] Audra Gutierrez MD [address] [place] [address] documented as of this encounter Visit Diagnoses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documented in this encounter Additional Health Concerns 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 04/10/2025 04/10/2025 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 Assessment Noted Time PHQ-9 Depression Total Score: 20 021 1:11 PM EDT PHQ-2 Depression Total Score: 6 01/16/20 21 1:11 PM EDT documented as of this encounter Care Teams Transformer Assembler Relationship Specialty Start Date End Date AceGriseldaleine, GAEL [address] [place] [address] PCP - General Nurse Practitioner 01/26/25 Noe Mccann MD Ophthalmology 02/11/19 Audra Gutierrez MD [address] [place] [address] 2nd [place] [address] [email or web address] Intensive Care 02/11/19 Edouard Mosley MD [address] [place] [address], [address] [place] [address] [email or web address] Plastic and Reconstructive Surgery 02/11/19 Nara Tejada MD [address] [place] [address], 3 [place] [address] [email or web address] Consulting Provider Nephrology 02/11/19 Jose Thomas MD [address] [place] [address] [email or web address] Consulting Provider Infectious Diseases 02/11/19 Trish Hammonds MD [address] [place] [address], [address] [place] [address] Rheumatology 02/11/19 Celina He DPM [address] [place] [address], [address] [place] [address] Podiatry 02/11/19 Elizabeth Goode MD 301 [facility] [address] [place] [address] Psychologist 03/27/20 documented as of this encounter Additional Source Comments The information contained in this document represents components of the legal health record. It is not the complete legal health record.[facility]
--- OUTSIDE RECORDS SUMMARY | 2025-04-16 20:54 | XMS_ITS | Encounter Summary ---
Author Organization [facility] Address [address] [place] [address] Phone Care Team Providers Care Painter Touch Up Name Role Phone Martin Bales MD Unavailable Jose Gallagher MD Unavailable [phone] Ramiro Schmidt MD Unavailable [phone] Enio Starkey MD Unavailable [phone] Kenneth Carter MD Unavailable Noe Mccann MD Unavailable Unavailable Audra Gutierrez MD Unavailable [phone] Edouard Mosley MD Unavailable Nara Tejada MD Unavailable [phone] Jose Thomas MD Unavailable [phone] Trish Hammonds MD Unavailable Celina He DPM Unavailable Elizabeth Goode MD Unavailable Martin Green MD Primary Care Provider [phone] Martin Green MD Primary Care Provider Griselda Bello NP Primary Care Provider [phone] Encounter Details Date Type Department Care Team (Late Contact Info) Description 08/30/2020 Transcribe Orders Virtual Department 30 [place] [address] Martin Green MD [address] [place] [address] Encounter for laboratory testing for COVID-19 virus (Primary Dx) Social History Tobacco Use Types Packs/Day Years [...] 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 documented as of this encounter Plan of Treatment Upcoming Encounters Date Type Department Care Team (Late Contact Info) Description 04/28/2025 2:00 PM EST Office Visit [facility] [address] [place] [address], [address] [address] Minda Nelson DNP [address] [place] [address] 07/29/2025 1:00 PM EST Office Visit [facility] [address] [place] [address], [address] [address] Minda Nelson DNP [address] [place] [address] 08/31/2025 11:50 AM EDT Office Visit [facility] [address] [facility] [place] [address] Audra Gutierrez MD 10 [facility] 2nd [place] [address] [email or web address] documented as of this encounter Results * COVID-19 PCR Order (09/02/2020 7:47 AM EDT) COVID Testing Status Specimen received in analyzing lab. Results should be available within 24 to 48 hrs. [facility] Symptomatic? NO [facility] 09/02/2020 7:47 AM EDT 09/02/2020 3:24 PM EDT us Martin Green MD LAB GENERAL ORDERABLES Final Re sult [address] [address] [facility] [address] [place] [address] documented in this encounter Visit Diagnoses Diagnosis Encounter for laboratory testing for COVID-19 virus- Primary documented in this encounter Additional Health Concerns [...] documented as of this encounter Care Teams Painter Touch Up Relationship Specialty Start Date End Date Martin Green MD [address] [place] [address] [address] [place] [address] [email or web address] PCP - General Internal Medicine 04/12/20 05/25/23 Martin Green MD [address] [place] [phone] [email or web address] PCP - General Internal Medicine 05/26/23 01/25/25 Griselda Bello NP [address] [place] [address] PCP - General Nurse Practitioner 01/26/25 Martin Balse MD [address] [place] [address] Gastroenterology 10/07/18 11/13/20 Jose Gallagher MD [address] [place] [address], [address] [place] [address] Urology 10/07/18 11/13/20 Ramiro Schmidt MD [address] [place] [address], [address] [place] [address] [email or web address] Endocrinology 02/11/19 11/13/20 [place] [address] [place] [address], [address] [place] [address] [email or web address] Cardiology 02/11/19 11/13/20 Kenneth Carter MD [address] [place] [address] Neurology 02/11/19 11/13/20 Noe Mccann MD Ophthalmology 02/11/19 Audra Gutierrez MD [address] [place] [address] 2nd [place] [address] [email or web address] Intensive Care 02/11/19 Edouard Mosley MD [address] [place] [address], [address] [place] [address] [email or web address] Plastic and Reconstructive Surgery 02/11/19 Nara Tejada MD [address] [place] [address], [address] [place] [address] [email or web address] Consulting Provider Nephrology 02/11/19 Jose Thomas MD [address] [place] [address] [email or web address] Consulting Provider Infectious Diseases 02/11/19 Trish Hammonds MD [address] [place] [address], [address] [place] [address] Rheumatology 02/11/19 Celina He DPM [address] [facility], [address] [place] [address] [email or web address] Podiatry 02/11/19 Elizabeth Goode MD [address] [place] [address] Psychologist 03/27/20 documented as of this encounter Additional Source Comments The information contained in this document represents components of the legal health record. It is not the complete legal health record.[facility]
--- OUTSIDE RECORDS SUMMARY | 2025-04-16 20:54 | XMS_ITS | Encounter Summary ---
Author Organization [facility] Address [address] [facility] [address] [place] [address] Phone Care Team Providers Care Maintenance Electrician Name Role Phone Martin Bales MD Unavailable Jose Gallagher MD Unavailable [phone] Ramiro Schmidt MD Unavailable Enio Starkey MD Unavailable [phone] Kenneth Carter MD Unavailable [phone] Noe Mccann MD Unavailable Unavailable Audra Gutierrez MD Unavailable Edouard Mosley MD Unavailable Nara Tejada MD Unavailable Jose Thomas MD Unavailable [phone] Trish Hammonds MD Unavailable [phone] Celina He DPM Unavailable Elizabeth Goode MD Unavailable Martin Green MD Primary Care Provider [phone] Martin Green MD Primary Care Provider Griselda Bello NP Primary Care Provider [phone] Encounter Details Date Type Department Care Team (Late Contact Info) Description 09/05/2020 Procedure Pass [facility] Cardiac Bed And Breakfast Cook [address] [place] [address] Social History Tobacco Use Types Packs/Day Years [...] 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 documented as of this encounter Plan of Treatment Upcoming Encounters Date Type Department Care Team (Late Contact Info) Description 04/28/2025 2:00 PM EST Office Visit [facility] [address] [place] [address], [address] [address] Minda Nelson DNP [address] [place] [address] 07/29/2025 1:00 PM EST Office Visit [facility] [address] 3rd [facility], [address] [address] Minda Nelson DNP [address] [place] [address] 08/31/2025 11:50 AM EDT Office Visit [facility] [address] [place] [address] Audra Gutierrez MD 10 [facility] 2nd [place] [address] [email or web address] documented as of this encounter Visit Diagnoses [...] documented as of this encounter Care Teams Maintenance Electrician Relationship Specialty Start Date End Date Martin Green MD [address] [place] [address] [email or web address] PCP - General Internal Medicine 04/12/20 05/25/23 Martin Green MD [address] [place] [phone] [email or web address] PCP - General Internal Medicine 05/26/23 01/25/25 Griselda Bello NP [address] [place] [address] PCP - General Nurse Practitioner 01/26/25 Martin Bales MD [address] [place] [address] [email or web address] Gastroenterology 10/07/18 11/13/20 Jose Gallagher MD [address] [place] [address], [address] [address] [email or web address] Urology 10/07/18 11/13/20 Ramiro Schmidt MD [address] [place] [address], [address] [address] [email or web address] Endocrinology 02/11/19 11/13/20 Enio Starkey MD [address] [place] [address], [address] [address] [email or web address] Cardiology 02/11/19 11/13/20 Kenneth Carter MD [address] [place] [address] Neurology 02/11/19 11/13/20 Noe Mccann MD Ophthalmology 02/11/19 Audra Gutierrez MD [address] [place] [address] [email or web address] Intensive Care 02/11/19 Edouard Mosley MD [address] [place] [address], [address] [place] [address] [email or web address] Plastic and Reconstructive Surgery 02/11/19 Nara Tejada MD [address] [place] [address], [address] [place] [address] [email or web address] Consulting Provider Nephrology 02/11/19 Jose Thomas MD [address] [place] [address] [email or web address] Consulting Provider Infectious Diseases 02/11/19 Trish Hammonds MD 22 [facility] 203 [place] [address] [email or web address] Rheumatology 02/11/19 Celina He DPM [address] [facility], [address] [address] [email or web address] Podiatry 02/11/19 Elizabeth Goode MD [address] [place] [address] Psychologist 03/27/20 documented as of this encounter Additional Source Comments The information contained in this document represents components of the legal health record. It is not the complete legal health record.[facility]
--- OUTSIDE RECORDS SUMMARY | 2025-04-16 20:55 | XMS_ITS | Clinical Summary ---
Author Organization [facility] Address [address] [place] [id number] Phone Care Team Providers Care Plan Manager Name Role Phone Noe Mccann MD Unavailable Unavailable Audra Gutierrez MD Unavailable Edouard Mosley MD Unavailable Nara Tejada MD Unavailable [phone] Jose Thomas MD Unavailable [phone] Trish Hammonds MD Unavailable [phone] Celina He DPM Unavailable [phone] Elizabeth Goode MD Unavailable [phone] Griselda Bello [employer] Primary Care Provider [phone] Allergies Active Allergy Reactions Criticality Noted Date Comments Acetaminophen-Salicylam serjio Nausea and/or Vomiting 03/23/2020 Fluticasone Propion-Salmeterol Shortness Of Breath High 10/06/2019 SOB Amoxicillin-Pot Clavulanate Anaphylaxis High 04/24/2017 Diphenhydramine Hcl Anaphylaxis High 05/12/2017 Cephalosporins Shortness Of Breath High 10/14/2013 Difficulty with several cephalosporins but cephalexin is OK Ciprofloxacin Unknown Clarithromycin Shortness Of Breath High 10/14/2013 Codeine Shortness Of Breath High 04/24/2017 Losartan Shortness Of Breath High 07/11/2017 Duloxetine Other (See Comments) Medium 02/11/2019 Depression Doxycycline Calcium Shortness Of Breath High 03/21/2020 Doxycycline Hyclate GI Upset 09/10/2017 Duloxetine Hcl Other (See Comments) 03/29/2021 Cefadroxil Shortness Of Breath High 05/12/2017 Fluoxetine Other (See Comments) Medium 11/10/2013 Made her mean Gabapentin Medium 04/24/2017 can't think right Levofloxacin Shortness Of Breath High 01/28/2020 Escitalopram Oxalate Mental Status Change Medium 10/07/2018 Made her mean Lisinopril Medium 04/24/2017 can't think right Metformin Other (See Comments) Medium 02/11/2019 I did not feel like myself Nsaids (Non-Steroidal Anti-Inflammatory Drug) Other (See Comments) 02/11/2019 GI upset Ondansetron Nausea and/or Vomiting 01/21/2023 Other Anaphylaxis,Shortn ess Of Breath High 10/14/2013 Benadryl. Codeine Derivatives. Steroids Penicillins Anaphylaxis High 05/12/2017 Pregabalin Dizziness Medium Red Blood Cells Other (See Comments) High 03/23/2025 The patient has a history of clinically significant antibody against RBC antigens. Delays in provision of compatible blood may occur. A new blood bank sample is required >= 24 hrs before elective surgery. DO NOT DELETE OR MODIFY THIS MESSAGE: ONLY DESIGNATED BLOOD BANK STAFF MAY MODIFY. Sulfa (Sulfonamide Antibiotics) Anaphylaxis High 05/12/2017 Sulfamethoxazole-Trimet hopri 09/26/2021 Ketorolac Shortness Of Breath High 03/27/2020 Medications montelukast (SINGULAIR) 10 mg tabletIndicatio ns:Asthma TAKE ONE TABLET BY MOUTH EVERY DAY 90 tablet 3 018 Active dorzolamide (TRUSOPT) 2 % ophthalmic solution Place 1 drop into each eye 2 (two) times a day. 020 Active modafiniL (PROVIGIL) 100 MG tablet Take 100 mg by mouth 2 (two) times a day. Active ELIQUIS 5 mg tabletIndicatio ns:Acute saddle pulmonary embolism TAKE ONE TABLET BY MOUTH TWICE A DAY 60 tablet 5 Active spironolactone (ALDACTONE) 25 MG tablet Take 25 mg by mouth daily. Active brimonidine (ALPHAGAN) 0.2 % ophthalmic solution Place 1 drop into each eye 2 (two) times a day. Active aspirin 81 mg Cap Take 81 mg by mouth daily. Active promethazine (PHENERGAN) 25 MG tablet Take 25 mg by mouth as needed for nausea. Active nut.tx.glucose intolerance,soy (GLUCERNA ORAL) Take 237 mL by mouth 4 (four) times a day. Active diazePAM (VALIUM) 5 MG tablet Take 5 mg by mouth every 8 (eight) hours as needed for other (free text field) or anxiety (Spasm). Active amantadine HCl (SYMMETREL) 100 mg capsule Take 100 mg by mouth 2 (two) times a day. Active dextroamphetami ne-amphetamine (ADDERALL) 30 mg Tab tablet Take 30 mg by mouth daily. Active FREESTYLE LITE Strp strips Active levothyroxine (SYNTHROID, LEVOTHROID) 75 MCG tablet Take 75 mcg by mouth. Active DUPIXENT SYRINGE 300 mg/2 mL subcutaneous syringe Inject 2 mL (300 mg total) under the skin every 14 (fourteen) days. 4 mL 11 Active latanoprost (XALATAN) 0.005 % ophthalmic solution Place 1 drop into each eye nightly at bedtime. Active sildenafiL (REVATIO) 20 mg tabletIndicatio ns:Raynaud's disease without gangrene TAKE ONE TABLET BY MOUTH THREE TIMES A DAY 270 tablet 3 Active pantoprazole (PROTONIX) 20 MG tablet Take 40 mg by mouth daily. Active TRULICITY 3 mg/0.5 mL subcutaneous injection Active albuterol 2.5 mg /3 mL (0.083 %) nebulizer solutionIndicat ions:Severe persistent asthma, unspecified whether complicated,Joya rtness of breath Take 3 mL (2.5 mg total) by nebulization every 6 (six) hours as needed for wheezing. 240 mL 11 Active sodium chloride (HYPERSAL) 7 % NebuIndications :Severe persistent asthma, unspecified whether complicated,Joya rtness of breath Take 4 mL by nebulization 2 (two) times a day. 240 mL 6 Active prednisoLONE acetate (PRED FORTE) 1 % ophthalmic suspension Place 1 drop into the right eye 3 (three) times a day. Active ketorolac (ACULAR) 0.5 % ophthalmic solution Place 1 drop into the right eye 3 (three) times a day. Active empagliflozin (JARDIANCE) 10 mg tablet Take 1 tablet (10 mg total) by mouth daily. 30 tablet Active camphor-menthoL (SARNA) lotion Apply topically as needed for itching. Active diclofenac sodium (VOLTAREN) 1 % Gel Apply 2 g topically 4 (four) times a day. Active dilTIAZem (TIAZAC) 300 MG 24 hr capsule Take 1 capsule (300 mg total) by mouth daily. Active insulin glargine (LANTUS) 100 unit/mL injection vial Inject 30 Units under the skin nightly at bedtime. Active insulin lispro (ADMELOG, HUMALOG) 100 unit/mL injection vial Inject 0-12 Units under the skin 3 (three) times a day with meals. Active insulin lispro (ADMELOG, HUMALOG) 100 unit/mL injection vial Inject 2 Units under the skin With Snacks as needed (with snacks). Active insulin lispro (ADMELOG, HUMALOG) 100 unit/mL injection vial Inject 6 Units under the skin 3 (three) times a day with meals. Active lidocaine 4 % Place 1 patch onto the skin daily. Active lidocaine 4 % Place 2 patches onto the skin daily. Active melatonin 5 mg Tab Take 1 tablet (5 mg total) by mouth nightly at bedtime. Active metoprolol succinate (TOPROL-XL) 50 MG 24 hr tablet Take 1 tablet (50 mg total) by mouth daily. Active multivitamin with tcsocctf-hiuk-p olic acid (ONE-A-DAY WOMEN'S COMPLETE) 18 mg iron- 400 mcg Tab per tablet Take 1 tablet by mouth daily. Active nystatin (NYSTOP) powder Apply topically 2 (two) times a day. Active thiamine (VITAMIN B-1) 100 MG tablet Take 1 tablet (100 mg total) by mouth daily. Active torsemide (DEMADEX) 20 MG tablet Take 2 tablets (40 mg total) by mouth daily. Active traZODone (DESYREL) 50 MG tablet Take 0.5 tablets (25 mg total) by mouth every 6 (six) hours as needed (insomnia). Active linezolid (ZYVOX) 600 mg tablet Take 1 tablet (600 mg total) by mouth every 12 (twelve) hours for 10 doses. 2024 Active morphine (MSIR) 15 MG tablet Take 1 tablet (15 mg total) by mouth every 8 (eight) hours as needed for pain (specific location in comments). 9 tablet 2024 Active morphine (MSIR) 15 MG tablet Take 15 mg by mouth every 8 (eight) hours as needed. 2024 Discontinued lactulose (CONSTULOSE) 10 gram/15 mL solution Take 30 mL (20 g total) by mouth 3 (three) times a day. 2024 Discontinued(S top Taking at Discharge) Active Problems Problem Noted Date Diagnosed Date SVT (supraventricular tachycardia) 04/06/2025 Assessment & Plan (04/14/2025 1:16 PM EST): # SVT # ?Tachy/dalia syndrome # Hypotension Developed chest pain and tachycardia to 150s, reassuringly remained HDS. EKG showed SVT which ultimately resolved with metoprolol tartrate 5 mg IV x 2, 6 mg adenosine x 2, amio 150 mg x 1 plus 400 mg po, and 20 mg IV diltiazem. Recurred again 03/31, though resistant to adenosine 6 mg then 12 mg IV, as well as PO Amio. At this time thought to have atrial tachycardia with variable block and was transitioned to diltiazem with adequate rate control. Encinal to be possibly related to volume overload and underling structural damage from rheumatic heart disease. Also some concern for possible tachy/dalia syndrome which may require a pacemaker. Developed SVT again overnight on 04/11 with HR in 160s. Suspect SVT was likely provoked in the setting of infection, as UA earlier in the day was suggestive of UTI. She received 10 mg IV diltiazem and subsequently developed hypotension to 80s/50s. Hypotension possibly related to active infection vs decreased filling time from SVT vs medication effect from Diltiazem and recently resumed Sildenafil. Started on metoprolol per discussion with cardiology with overall improvement in HR and BP. Recurrence of SVT 04/14 with HR 160-180s. Pt asymptomatic with stable EKG without ischemic changes. Of note, diltiazem not given 04/13 d/t hold parameters. Gave scheduled diltiazem and metoprolol. Also ordered diltiazem 30mg BID for today with plan to increase to 300 mg diltiazem tomorrow. HR subsequently improved to 90s. Will ensure hold parameters are updated so that pt does not miss doses of diltiazem or metoprolol. - Appreciate EP input - Increase Diltiazem ER to 300 mg daily - Continue metoprolol tartrate 12.5 mg Q6H, consolidate to metoprolol succinate 50 mg daily when BP and HR stable - Hold Sildenafil, consider resuming pending BP trend - If she goes into a junctional bradycardic rhythm, then she will have declared herself to need a pacemaker, at which point further diltiazem should be held - Continue Low-risk telemetry Discharge planning: - EP study outpatient - Cardiology f/u 04/28/25 at 1:45 pm with [facility] Assessment & Plan (04/13/2025 4:07 PM EST): # SVT # ?Tachy/dalia syndrome # Hypotension Developed chest pain and tachycardia to 150s, reassuringly remained HDS. EKG showed SVT which ultimately resolved with metoprolol tartrate 5 mg IV x 2, 6 mg adenosine x 2, amio 150 mg x 1 plus 400 mg po, and 20 mg IV diltiazem. Recurred again 03/31, though resistant to adenosine 6 mg then 12 mg IV, as well as PO Amio. At this time thought to have atrial tachycardia with variable block and was transitioned to diltiazem with adequate rate control. Encinal to be possibly related to volume overload and underling structural damage from rheumatic heart disease. Also some concern for possible tachy/dalia syndrome which may require a pacemaker. Developed SVT again overnight on 04/11 with HR in 160s. Suspect SVT was likely provoked in the setting of infection, as UA earlier in the day was suggestive of UTI. She received 10 mg IV diltiazem and subsequently developed hypotension to 80s/50s. Hypotension possibly related to active infection vs decreased filling time from SVT vs medication effect from Diltiazem and recently resumed Sildenafil. Started on metoprolol per discussion with cardiology with overall improvement in HR and BP. - Appreciate EP input - Continue Diltiazem ER 240 mg daily - Continue metoprolol tartrate 12.5 mg Q6H, with plan to consolidate to metoprolol succinate 50 mg daily tomorrow - Hold Sildenafil, consider resuming pending BP trend - If she goes into a junctional bradycardic rhythm, then she will have declared herself to need a pacemaker, at which point further diltiazem should be held - Continue Low-risk telemetry Discharge planning: - EP study outpatient - Cardiology f/u 04/28/25 at 1:45 pm with [facility] Assessment & Plan (04/12/2025 3:48 PM EST): # SVT # ?Tachy/dalia syndrome # Hypotension Developed chest pain and tachycardia to 150s, reassuringly remained HDS. EKG showed SVT which ultimately resolved with metoprolol tartrate 5 mg IV x 2, 6 mg adenosine x 2, amio 150 mg x 1 plus 400 mg po, and 20 mg IV diltiazem. Recurred again 03/31, though resistant to adenosine 6 mg then 12 mg IV, as well as PO Amio. At this time thought to have atrial tachycardia with variable block and was transitioned to diltiazem with adequate rate control. Encinal to be possibly related to volume overload and underling structural damage from rheumatic heart disease. Also some concern for possible tachy/dalia syndrome which may require a pacemaker. Developed SVT again overnight on 04/11 with HR in 160s despite being stable on current dose of diltiazem. Suspect SVT was likely provoked in the setting of infection, as UA earlier in the day was suggestive of UTI. She received 10 mg IV diltiazem and subsequently developed hypotension to 80s/50s. Hypotension possibly related to active infection vs decreased filling time from SVT vs medication effect from Diltiazem and recently resumed Sildenafil. Started on metoprolol per discussion with cardiology with overall improvement in HR and BP. - Appreciate EP input - Continue Diltiazem ER 240 mg daily - START metoprolol tartrate 12.5 mg Q6H, if tolerates hemodynamically with adequate rhythm control would change to Toprol XL 25 mg BID. If recurrent AT/SVT, can uptitrate metoprolol as tolerated - Hold Sildenafil, consider resuming pending BP trend - If she goes into a junctional bradycardic rhythm, then she will have declared herself to need a pacemaker, at which point further diltiazem should be held - Low-risk telemetry Discharge planning: - EP study outpatient - Cardiology f/u 04/28/25 at 1:45 pm with [facility] Assessment & Plan (04/11/2025 6:03 PM EST): # SVT # ?Tachy/dalia syndrome Developed chest pain and tachycardia to 150s, reassuringly remained HDS. EKG showed SVT which ultimately resolved with metoprolol tartrate 5 mg IV x 2, 6 mg adenosine x 2, amio 150 mg x 1 plus 400 mg po, and 20 mg IV diltiazem. Recurred again 03/31, though resistant to adenosine 6 mg then 12 mg IV, as well as PO Amio. At this time thought to have atrial tachycardia with variable block and was transitioned to diltiazem with adequate rate control. Encinal to be possibly related to volume overload and underling structural damage from rheumatic heart disease. Also some concern for possible tachy/dalia syndrome which may require a pacemaker. - Continue Diltiazem ER 240 mg daily - If she goes into a junctional bradycardic rhythm, then she will have declared herself to need a pacemaker, at which point further diltiazem should be held - Low-risk telemetry Discharge planning: - EP study outpatient - Cardiology f/u 04/28/25 at 1:45 pm with [facility] Assessment & Plan (04/10/2025 4:46 PM EST): # SVT # ?Tachy/dalia syndrome Developed chest pain and tachycardia to 150s, reassuringly remained HDS. EKG showed SVT which ultimately resolved with metoprolol tartrate 5 mg IV x 2, 6 mg adenosine x 2, amio 150 mg x 1 plus 400 mg po, and 20 mg IV diltiazem. Recurred again 03/31, though resistant to adenosine 6 mg then 12 mg IV, as well as PO Amio. At this time thought to have atrial tachycardia with variable block and was transitioned to diltiazem with adequate rate control. Encinal to be possibly related to volume overload and underling structural damage from rheumatic heart disease. Also some concern for possible tachy/dalia syndrome which may require a pacemaker. - Continue Diltiazem ER 240 mg daily - If she goes into a junctional bradycardic rhythm, then she will have declared herself to need a pacemaker, at which point further diltiazem should be held - Low-risk telemetry Discharge planning: - EP study outpatient - Cardiology f/u 04/28/25 at 1:45 pm with [facility] Assessment & Plan (04/09/2025 11:38 AM EDT): #SVT #?Tachy/dalia syndrome Developed chest pain and tachycardia to 150s, reassuringly remained HDS. EKG showed SVT which ultimately resolved with metoprolol tartrate 5 mg IV x 2, 6 mg adenosine x 2, amio 150 mg x 1 plus 400 mg po, and 20 mg IV diltiazem. Recurred again 03/31, though resistant to adenosine 6 mg then 12 mg IV, as well as PO Amio. At this time thought to have atrial tachycardia with variable block and was transitioned to diltiazem with adequate rate control. Encinal to be possibly related to volume overload and underling structural damage from rheumatic heart disease. Also some concern for possible tachy/dalia syndrome which may require a pacemaker. Dx: -telemetry monitoring Tx: -Consolidate Diltiazem to 240 mg extended release -If she goes into a junctional bradycardic rhythm, then she will have declared herself to need a pacemaker, at which point further diltiazem should be held Dispo: -Ep study outpatient -Cardiology f/u 04/28/25 at 1:45 pm with [facility] Assessment & Plan (04/08/2025 1:48 PM EDT): #SVT #?Tachy/dalia syndrome Developed chest pain and tachycardia to 150s, reassuringly remained HDS. EKG showed SVT which ultimately resolved with metoprolol tartrate 5 mg IV x 2, 6 mg adenosine x 2, amio 150 mg x 1 plus 400 mg po, and 20 mg IV diltiazem. Recurred again 03/31, though resistant to adenosine 6 mg then 12 mg IV, as well as PO Amio. At this time thought to have atrial tachycardia with variable block and was transitioned to diltiazem with adequate rate control. Encinal to be possibly related to volume overload and underling structural damage from rheumatic heart disease. Also some concern for possible tachy/dalia syndrome which may require a pacemaker. Dx: -telemetry monitoring Tx: -Consolidate Diltiazem to 240 mg extended release -If she goes into a junctional bradycardic rhythm, then she will have declared herself to need a pacemaker, at which point further diltiazem should be held Dispo: -Ep study outpatient -Cardiology f/u 04/28/25 at 1:45 pm with [facility] Assessment & Plan (04/07/2025 4:02 PM EDT): #SVT #?Tachy/dalia syndrome Developed chest pain and tachycardia to 150s, reassuringly remained HDS. EKG showed SVT which ultimately resolved with metoprolol tartrate 5 mg IV x 2, 6 mg adenosine x 2, amio 150 mg x 1 plus 400 mg po, and 20 mg IV diltiazem. Recurred again 03/31, though resistant to adenosine 6 mg then 12 mg IV, as well as PO Amio. At this time thought to have atrial tachycardia with variable block and was transitioned to diltiazem 45 mg Q6 which was consolidated to 180 extended release with good effect, though 04/06 with recurrence of sustained heart rates on the 150s. EP reengaged and recommended diltiazem 60 mg Q6h and felt possibly related to volume overload and underling structural damage from rheumatic heart disease. Also some concern for possible tachy/dalia syndrome which may require a pacemaker. Dx: -telemetry monitoring Tx: -continue diltiazem 60 mg Q6, uptitrate PRN, consolidate as able -If she goes into a junctional bradycardic rhythm, then she will have declared herself to need a pacemaker, at which point further diltiazem should be held Dispo: -Ep study outpatient -Cardiology f/u 07/29/2025, IAC request placed to move up appointment Assessment & Plan (04/06/2025 2:39 PM EDT): #SVT #?Tachy/dalia syndrome Developed chest pain and tachycardia to 150s, reassuringly remained HDS. EKG showed SVT which ultimately resolved with metoprolol tartrate 5 mg IV x 2, 6 mg adenosine x 2, amio 150 mg x 1 plus 400 mg po, and 20 mg IV diltiazem. Recurred again 03/31, though resistant to adenosine 6 mg then 12 mg IV, as well as PO Amio. At this time thought to have atrial tachycardia with variable block and was transitioned to diltiazem 45 mg Q6 which was consolidated to 180 extended release with good effect, though 04/06 with recurrence of sustained heart rates on the 150s. EP reengaged and recommended diltiazem 60 mg Q6h and felt possibly related to volume overload and underling structural damage from rheumatic heart disease. Also some concern for possible tachy/dalia syndrome which may require a pacemaker. Dx: -telemetry monitoring Tx: -continue diltiazem 60 mg Q6, uptitrate PRN -If she goes into a junctional bradycardic rhythm, then she will have declared herself to need a pacemaker, at which point further diltiazem should be held Dispo: -Ep study outpatient Schizophrenia 04/01/2025 Assessment & Plan (04/14/2025 12:24 PM EST): Patient with unclear hx of schizophrenia and PTSD. On home valium, no other medications listed. Psyciatry consulted iso agitation/delerium-did not note any signs of myron, psychosis, or acute depression necessitating treatment. - Trazodone 25 mg Q6PRN Assessment & Plan (04/13/2025 4:34 PM EST): Patient with unclear hx of schizophrenia and PTSD. On home valium, no other medications listed. Psyciatry consulted iso agitation/delerium-did not note any signs of myron, psychosis, or acute depression necessitating treatment. - Trazodone 25 mg Q6PRN Assessment & Plan (04/12/2025 1:57 PM EST): Patient with unclear hx of schizophrenia and PTSD. On home valium, no other medications listed. Psyciatry consulted iso agitation/delerium-did not note any signs of myron, psychosis, or acute depression necessitating treatment. - Trazodone 25 mg Q6PRN Assessment & Plan (04/11/2025 6:03 PM EST): Patient with unclear hx of schizophrenia and PTSD. On home valium, no other medications listed. Psyciatry consulted iso agitation/delerium-did not note any signs of myron, psychosis, or acute depression necessitating treatment. - Trazodone 25 mg Q6PRN Assessment & Plan (04/10/2025 4:46 PM EST): Patient with unclear hx of schizophrenia and PTSD. On home valium, no other medications listed. Psyciatry consulted iso agitation/delerium-did not note any signs of myron, psychosis, or acute depression necessitating treatment. - Trazodone 25 mg Q6PRN Assessment & Plan (04/09/2025 11:38 AM EDT): #Schizophrenia Patient with unclear hx of schizophrenia and PTSD. On home valium, no other medications listed. Psyciatry consulted iso agitation/delerium-did not note any signs of myron, psychosis, or acute depression necessitating treatment. Trazodone Prn recommended for agitation -trazodone 25 mg Q6PRN Assessment & Plan (04/08/2025 1:48 PM EDT): #Schizophrenia Patient with unclear hx of schizophrenia and PTSD. On home valium, no other medications listed. Psyciatry consulted iso agitation/delerium-did not note any signs of myron, psychosis, or acute depression necessitating treatment. Trazodone Prn recommended for agitation -trazodone 25 mg Q6PRN Assessment & Plan (04/07/2025 4:02 PM EDT): #Schizophrenia Patient with unclear hx of schizophrenia and PTSD. On home valium, no other medications listed. Psyciatry consulted iso agitation/delerium-did not note any signs of myron, psychosis, or acute depression necessitating treatment. Trazodone Prn recommended for agitation -trazodone 25 mg Q6PRN Assessment & Plan (04/06/2025 2:39 PM EDT): Patient with unclear hx of schizophrenia and PTSD. On home valium, no other medications listed. Psyciatry consulted iso agitation/delerium-did not note any signs of myron, psychosis, or acute depression necessitating treatment. Trazodone Prn recommended for agitation -trazodone 25 mg Q6PRN Assessment & Plan (04/05/2025 8:06 AM EDT): Patient with unclear hx of schizophrenia and PTSD. On home valium, no other medications listed. Noted to have ongoing agitation and delirium this hospital admission without psych consultation. Will reach out to psych for recs. Reassuringly although agitated at times, is somewhat agreeable to plan of care and interventions with continued discussions and encouragement. -F/u psych consult, appreciate recs Assessment & Plan (04/04/2025 5:43 PM EDT): Patient with unclear hx of schizophrenia and PTSD. On home valium, no other medications listed. Noted to have ongoing agitation and delirium this hospital admission without psych consultation. Will reach out to psych for recs. Reassuringly although agitated at times, is somewhat agreeable to plan of care and interventions with continued discussions and encouragement. -F/u psych consult, appreciate recs Assessment & Plan (04/03/2025 1:14 PM EDT): Patient with unclear hx of schizophrenia and PTSD. On home valium, no other medications listed. Noted to have ongoing agitation and delirium this hospital admission without psych consultation. Will reach out to psych for recs. -F/u psych consult, appreciate recs Assessment & Plan (04/02/2025 10:41 AM EDT): Patient with unclear hx of schizophrenia and PTSD. On home valium, no other medications listed. Noted to have ongoing agitation and delirium this hospital admission without psych consultation. Will reach out to psych for recs. -F/u psych consult, appreciate recs Assessment & Plan (04/01/2025 1:44 PM EDT): Patient with unclear hx of schizophrenia and PTSD. On home valium, no other medications listed. Noted to have ongoing agitation and delirium this hospital admission without psych consultation. Will reach out to psych for recs. -F/u psych consult, appreciate recs MGUS (monoclonal gammopathy of unknown significa nce) 03/28/2025 Assessment & Plan (04/14/2025 12:24 PM EST): SPEP/FLCs sent for ARF workup. Elevated FLCs and a 0.06 g/dl IgG lambda M component and 0.13 g/dl IgG kappa M component, both in the gamma region. - Recommend repeat SPEP/FLCs in 4-6 months given e/o MGUS Assessment & Plan (04/13/2025 4:34 PM EST): SPEP/FLCs sent for ARF workup. Elevated FLCs and a 0.06 g/dl IgG lambda M component and 0.13 g/dl IgG kappa M component, both in the gamma region. - Recommend repeat SPEP/FLCs in 4-6 months given e/o MGUS Assessment & Plan (04/12/2025 1:57 PM EST): SPEP/FLCs sent for ARF workup. Elevated FLCs and a 0.06 g/dl IgG lambda M component and 0.13 g/dl IgG kappa M component, both in the gamma region. - Recommend repeat SPEP/FLCs in 4-6 months given e/o MGUS Assessment & Plan (04/11/2025 6:03 PM EST): SPEP/FLCs sent for ARF workup. Elevated FLCs and a 0.06 g/dl IgG lambda M component and 0.13 g/dl IgG kappa M component, both in the gamma region. - Recommend repeat SPEP/FLCs in 4-6 months given e/o MGUS Assessment & Plan (04/10/2025 4:46 PM EST): SPEP/FLCs sent for ARF workup. Elevated FLCs and a 0.06 g/dl IgG lambda M component and 0.13 g/dl IgG kappa M component, both in the gamma region. - Recommend repeat SPEP/FLCs in 4-6 months given e/o MGUS Assessment & Plan (04/09/2025 11:38 AM EDT): #MGUS SPEP/FLCs sent for ARF workup. Elevated FLCs and a 0.06 g/dl IgG lambda M component and 0.13 g/dl IgG kappa M component, both in the gamma region. - Recommend repeat SPEP/FLCs in 4-6 months given e/o MGUS Assessment & Plan (04/08/2025 1:48 PM EDT): #MGUS SPEP/FLCs sent for ARF workup. Elevated FLCs and a 0.06 g/dl IgG lambda M component and 0.13 g/dl IgG kappa M component, both in the gamma region. - Recommend repeat SPEP/FLCs in 4-6 months given e/o MGUS Assessment & Plan (04/07/2025 8:30 AM EDT): #MGUS SPEP/FLCs sent for ARF workup. Elevated FLCs and a 0.06 g/dl IgG lambda M component and 0.13 g/dl IgG kappa M component, both in the gamma region. - Recommend repeat SPEP/FLCs in 4-6 months given e/o MGUS Assessment & Plan (04/06/2025 2:39 PM EDT): #MGUS SPEP/FLCs sent for ARF workup. Elevated FLCs and a 0.06 g/dl IgG lambda M component and 0.13 g/dl IgG kappa M component, both in the gamma region. - Recommend repeat SPEP/FLCs in 4-6 months given e/o MGUS Assessment & Plan (04/05/2025 1:43 PM EDT): SPEP/FLCs sent for ARF workup. Elevated FLCs and a 0.06 g/dl IgG lambda M component and 0.13 g/dl IgG kappa M component, both in the gamma region. - Recommend repeat SPEP/FLCs in 4-6 months given e/o MGUS Assessment & Plan (04/04/2025 4:38 PM EDT): SPEP/FLCs sent for ARF workup. Elevated FLCs and a 0.06 g/dl IgG lambda M component and 0.13 g/dl IgG kappa M component, both in the gamma region. - Recommend repeat SPEP/FLCs in 4-6 months given e/o MGUS Assessment & Plan (04/03/2025 1:14 PM EDT): SPEP/FLCs sent for ARF workup. Elevated FLCs and a 0.06 g/dl IgG lambda M component and 0.13 g/dl IgG kappa M component, both in the gamma region. - Recommend repeat SPEP/FLCs in 4-6 months given e/o MGUS Assessment & Plan (04/02/2025 10:41 AM EDT): SPEP/FLCs sent for ARF workup. Elevated FLCs and a 0.06 g/dl IgG lambda M component and 0.13 g/dl IgG kappa M component, both in the gamma region. - Recommend repeat SPEP/FLCs in 4-6 months given e/o MGUS Assessment & Plan (04/01/2025 7:39 AM EDT): SPEP/FLCs sent for ARF workup. Elevated FLCs and a 0.06 g/dl IgG lambda M component and 0.13 g/dl IgG kappa M component, both in the gamma region. - Recommend repeat SPEP/FLCs in 4-6 months given e/o MGUS Assessment & Plan (03/31/2025 7:38 AM EDT): SPEP/FLCs sent for ARF workup. Elevated FLCs and a 0.06 g/dl IgG lambda M component and 0.13 g/dl IgG kappa M component, both in the gamma region. - Recommend repeat SPEP/FLCs in 4-6 months given e/o MGUS Assessment & Plan (03/30/2025 7:04 AM EDT): SPEP/FLCs sent for ARF workup. Elevated FLCs and a 0.06 g/dl IgG lambda M component and 0.13 g/dl IgG kappa M component, both in the gamma region. - Recommend repeat SPEP/FLCs in 4-6 months given e/o MGUS Assessment & Plan (03/29/2025 8:15 AM EDT): SPEP/FLCs sent for ARF workup. Elevated FLCs and a 0.06 g/dl IgG lambda M component and 0.13 g/dl IgG kappa M component, both in the gamma region. - Recommend repeat SPEP/FLCs in 4-6 months given e/o MGUS Assessment & Plan (03/28/2025 5:52 PM EDT): SPEP/FLCs sent for ARF workup. Elevated FLCs and a 0.06 g/dl IgG lambda M component and 0.13 g/dl IgG kappa M component, both in the gamma region. - Recommend repeat SPEP/FLCs in 4-6 months given e/o MGUS Bilateral subdural hematomas 03/27/2025 Assessment & Plan (04/14/2025 1:16 PM EST): CT head obtained 03/26 for persistent delirium as below, with interval development/ b/l SDH of 4.4mm, repeat CTH unchanged. Neuro exam remains nonfocal. Per neurology, etiology of bilateral SDH may be related to underlying coagulopathy and liver dysfunction. NSGY also consulted who noted no need for surgical intervention and she was treated with 7 days of Keppra empirically. Given stability/ resolution on interval CT started on heparin ggt and ultimately transitioned to her home apixaban without recurrence of altered mentation. - Appreciate Neurology recs --- Goal platelets >100 --- rEEG (patient continues to refuse) --- Keep HOB >30 degrees --- Goal SBP <160 - Appreciate Neurosurgery recs (following peripherally) --- No indication for surgical intervention Assessment & Plan (04/13/2025 4:07 PM EST): CT head obtained 03/26 for persistent delirium as below, with interval development/ b/l SDH of 4.4mm, repeat CTH unchanged. Neuro exam remains nonfocal. Per neurology, etiology of bilateral SDH may be related to underlying coagulopathy and liver dysfunction. NSGY also consulted who noted no need for surgical intervention and she was treated with 7 days of Keppra empirically. Given stability/ resolution on interval CT started on heparin ggt in anticipation of procedures which was transitioned to her home apixaban without recurrence of altered mentation. - Appreciate Neurology recs --- Goal platelets >100 --- rEEG (patient continues to refuse) --- Keep HOB >30 degrees --- Goal SBP <160 - Appreciate Neurosurgery recs (following peripherally) --- No indication for surgical intervention Assessment & Plan (04/12/2025 3:48 PM EST): CT head obtained 03/26 for persistent delirium as below, with interval development/ b/l SDH of 4.4mm, repeat CTH unchanged. Neuro exam remains nonfocal. Per neurology, etiology of bilateral SDH may be related to underlying coagulopathy and liver dysfunction. NSGY also consulted who noted no need for surgical intervention and she was treated with 7 days of Keppra empirically. Given stability/ resolution on interval CT started on heparin ggt in anticipation of procedures which was transitioned to her home apixaban without recurrence of altered mentation. - Appreciate Neurology recs --- Goal platelets >100 --- rEEG (patient continues to refuse) --- Keep HOB >30 degrees --- Goal SBP <160 - Appreciate Neurosurgery recs (following peripherally) --- No indication for surgical intervention Assessment & Plan (04/11/2025 6:03 PM EST): CT head obtained 03/26 for persistent delirium as below, with interval development/ b/l SDH of 4.4mm, repeat CTH unchanged. Neuro exam remains nonfocal. Per neurology, etiology of bilateral SDH may be related to underlying coagulopathy and liver dysfunction. NSGY also consulted who noted no need for surgical intervention and she was treated with 7 days of Keppra empirically. Given stability/ resolution on interval CT started on heparin ggt in anticipation of procedures which was transitioned to her home apixaban without recurrence of altered mentation. - Appreciate Neurology recs --- Goal platelets >100 --- rEEG (patient continues to refuse) --- Keep HOB >30 degrees --- Goal SBP <160 - Appreciate Neurosurgery recs (following peripherally) --- No indication for surgical intervention Assessment & Plan (04/10/2025 4:46 PM EST): CT head obtained 03/26 for persistent delirium as below, with interval development/ b/l SDH of 4.4mm, repeat CTH unchanged. Neuro exam remains nonfocal. Per neurology, etiology of bilateral SDH may be related to underlying coagulopathy and liver dysfunction. NSGY also consulted who noted no need for surgical intervention and she was treated with 7 days of Keppra empirically. Given stability/ resolution on interval CT started on heparin ggt in anticipation of procedures which was transitioned to her home apixaban without recurrence of altered mentation. - Appreciate Neurology recs --- Goal platelets >100 --- rEEG (patient continues to refuse) --- Keep HOB >30 degrees --- Goal SBP <160 - Appreciate Neurosurgery recs (following peripherally) --- No indication for surgical intervention Assessment & Plan (04/09/2025 11:38 AM EDT): #SDH CT head obtained 03/26 for persistent delirium as below, with interval development/ b/l SDH of 4.4mm, repeat CTH unchanged. Neuro exam remains nonfocal. Per neurology, etiology of bilateral SDH may be related to underlying coagulopathy and liver dysfunction. NSGY also consulted who noted no need for surgical intervention and she was treated with 7 days of Keppra empirically. Given stability/ resolution on interval CT started on heparin ggt in anticipation of procedures which was transitioned to her home apixaban without recurrence of altered mentation. - Appreciate Neurology recs --- Goal platelets >100 --- rEEG (patient continues to refuse) --- Keep HOB >30 degrees --- Goal SBP <160 - Appreciate Neurosurgery recs (following peripherally) --- No indication for surgical intervention Assessment & Plan (04/08/2025 1:48 PM EDT): #SDH CT head obtained 03/26 for persistent delirium as below, with interval development/ b/l SDH of 4.4mm, repeat CTH unchanged. Neuro exam remains nonfocal. Per neurology, etiology of bilateral SDH may be related to underlying coagulopathy and liver dysfunction. NSGY also consulted who noted no need for surgical intervention and she was treated with 7 days of Keppra empirically. Given stability/ resolution on interval CT started on heparin ggt in anticipation of procedures which was transitioned to her home apixaban without recurrence of altered mentation. - Appreciate Neurology recs --- Goal platelets >100 --- rEEG (patient continues to refuse) --- Keep HOB >30 degrees --- Goal SBP <160 - Appreciate Neurosurgery recs (following peripherally) --- No indication for surgical intervention Assessment & Plan (04/07/2025 4:02 PM EDT): #SDH CT head obtained 03/26 for persistent delirium as below, with interval development/ b/l SDH of 4.4mm, repeat CTH unchanged. Neuro exam remains nonfocal. Per neurology, etiology of bilateral SDH may be related to underlying coagulopathy and liver dysfunction. NSGY also consulted who noted no need for surgical intervention and she was treated with 7 days of Keppra empirically. Given stability/ resolution on interval CT started on heparin ggt in anticipation of procedures which was transitioned to her home apixaban - Appreciate Neurology recs --- Goal platelets >100 --- rEEG (patient continues to refuse) --- Keep HOB >30 degrees --- Goal SBP <160 - Appreciate Neurosurgery recs (following peripherally) --- No indication for surgical intervention Assessment & Plan (04/06/2025 2:39 PM EDT): #SDH CT head obtained 03/26 for persistent delirium as below, with interval development/ b/l SDH of 4.4mm, repeat CTH unchanged. Neuro exam remains nonfocal. Per neurology, etiology of bilateral SDH may be related to underlying coagulopathy and liver dysfunction. NSGY also consulted who noted no need for surgical intervention and she was treated with 7 days of Keppra empirically. Given stability/ resolution on interval CT started on heparin ggt in anticipation of procedures which was transitioned to her home apixaban - Appreciate Neurology recs --- Goal platelets >100 --- rEEG (patient continues to refuse) --- Keep HOB >30 degrees --- Goal SBP <160 - Appreciate Neurosurgery recs (following peripherally) --- No indication for surgical intervention --- s/p Vitamin K 03/26-03/27 (S/p vitamin K IV 10mg x1 on 03/26, PO 5mg on 03/27) (goal INR <1.4) Assessment & Plan (04/05/2025 1:43 PM EDT): CT head obtained 03/26 for persistent delirium as below, with interval development/ b/l SDH of 4.4mm, repeat CTH unchanged. The patient has been on a heparin gtt for therapeutic AC for hx of PE as below (on eliquis at home.) INR was ranging 1.6- 2.4 in the time the SDH developed. Neuro exam remains nonfocal. Speech nonsensical, though orientation waxes and wanes. Per neurology, etiology of bilateral SDH may be related to underlying coagulopathy and liver dysfunction. Repeat CTH completed 03/31 stable without changes so restarted anticoagulation per neurology 04/01. Pt r/o new onset STALLINGS 04/03 evening. Obtained repeat HCT 04/03 which showed interval decrease in size of the bilateral SDH without new intracranial hemorrage. And addition HCT 04/04 once heparin gtt was therapeutic and SDH was stable. - Appreciate Neurology recs --- Goal platelets >100 --- rEEG (patient continues to refuse) --- Discontinued Apixiban 2.5 mg BID in consideration of RHC Friday. --- Briefly on therapeutic lovenox in setting to RHC, later transitioned to heparin gtt for improved control of anticoagulation in preparation for RHC. Continue heparin gtt for PTT goal 60-90. --- Keep HOB >30 degrees --- Goal SBP <160 - Appreciate Neurosurgery recs (following peripherally) --- No indication for surgical intervention --- Continue Keppra 500 mg BID x7d (03/26-04/01), dosed per CrCl --- s/p Vitamin K 03/26-03/27 (S/p vitamin K IV 10mg x1 on 03/26, PO 5mg on 03/27) (goal INR <1.4) Assessment & Plan (04/04/2025 5:43 PM EDT): CT head obtained 03/26 for persistent delirium as below, with interval development/ b/l SDH of 4.4mm, repeat CTH unchanged. The patient has been on a heparin gtt for therapeutic AC for hx of PE as below (on eliquis at home.) INR was ranging 1.6- 2.4 in the time the SDH developed. Neuro exam remains nonfocal. Speech nonsensical, though orientation waxes and wanes. Per neurology, etiology of bilateral SDH may be related to underlying coagulopathy and liver dysfunction. Repeat CTH completed 03/31 stable without changes so restarted anticoagulation per neurology 04/01. Pt r/o new onset STALLINGS 04/03 evening. Obtained repeat HCT 04/03 which showed interval decrease in size of the bilateral SDH without new intracranial hemorrage. - Appreciate Neurology recs --- Goal platelets >100 --- rEEG (patient continues to refuse) --- Discontinued DVT ppx heparin SQ BID --- Discontinued Apixiban 2.5 mg BID in consideration of RHC Friday. --- Briefly on therapeutic lovenox in setting to RHC, later transitioned to heparin gtt for improved control of anticoagulation in preparation for RHC. --- Keep HOB >30 degrees --- Goal SBP <160 - Appreciate Neurosurgery recs (following peripherally) --- No indication for surgical intervention --- Continue Keppra 500 mg BID x7d (03/26-04/01), dosed per CrCl --- s/p Vitamin K 03/26-03/27 (S/p vitamin K IV 10mg x1 on 03/26, PO 5mg on 03/27) (goal INR <1.4) Assessment & Plan (04/03/2025 4:54 PM EDT): CT head obtained 03/26 for persistent delirium as below, with interval development/ b/l SDH of 4.4mm, repeat CTH unchanged. The patient has been on a heparin gtt for therapeutic AC for hx of PE as below (on eliquis at home.) INR was ranging 1.6- 2.4 in the time the SDH developed. Neuro exam remains nonfocal. Speech nonsensical, though orientation waxes and wanes. Per neurology, etiology of bilateral SDH may be related to underlying coagulopathy and liver dysfunction. Repeat CTH completed 03/31 stable without changes so will plan to restart apixiban tomorrow pr neurology recs and closely monitor. - Appreciate Neurology recs --- Goal platelets >100 --- rEEG (patient continues to refuse) --- Discontinued DVT ppx heparin SQ BID --- Discontinued Apixiban 2.5 mg BID in consideration of C Friday. -----Continue therapeutic Lovenox 70mg BID started . Anti-Xa sent for dose monitoring, likely unreliable given Eliquis is still in system. -- Per neurology will follow-up HCT 04/04 to monitor SDH while on anticoagulation. --- Keep HOB >30 degrees --- Goal SBP <160 - Appreciate Neurosurgery recs (following peripherally) --- No indication for surgical intervention --- Continue Keppra 500 mg BID x7d (03/26-04/01), dosed per CrCl --- s/p Vitamin K 03/26-03/27 (S/p vitamin K IV 10mg x1 on 03/26, PO 5mg on 03/27) (goal INR <1.4) Assessment & Plan (04/02/2025 5:28 PM EDT): CT head obtained 03/26 for persistent delirium as below, with interval development/ b/l SDH of 4.4mm, repeat CTH unchanged. The patient has been on a heparin gtt for therapeutic AC for hx of PE as below (on eliquis at home.) INR was ranging 1.6- 2.4 in the time the SDH developed. Neuro exam remains nonfocal. Speech nonsensical, though orientation waxes and wanes. Per neurology, etiology of bilateral SDH may be related to underlying coagulopathy and liver dysfunction. Repeat CTH completed 03/31 stable without changes so will plan to restart apixiban tomorrow pr neurology recs and closely monitor. - Appreciate Neurology recs --- Goal platelets >100 --- rEEG (patient continues to refuse) --- Discontinued DVT ppx heparin SQ BID --- Continue Apixiban 5 mg BID and closely monitor -----Will plan to discontinue after evening dose and start therapeutic Lovenox in preparation for possible RHC Friday. --- Keep HOB >30 degrees --- Goal SBP <160 - Appreciate Neurosurgery recs (following peripherally) --- No indication for surgical intervention --- Continue Keppra 500 mg BID x7d (03/26-04/01), dosed per CrCl --- s/p Vitamin K 03/26-03/27 (S/p vitamin K IV 10mg x1 on 03/26, PO 5mg on 03/27) (goal INR <1.4) Assessment & Plan (04/01/2025 1:44 PM EDT): CT head obtained 03/26 for persistent delirium as below, with interval development/ b/l SDH of 4.4mm, repeat CTH unchanged. The patient has been on a heparin gtt for therapeutic AC for hx of PE as below (on eliquis at home.) INR was ranging 1.6- 2.4 in the time the SDH developed. Neuro exam remains nonfocal. Speech nonsensical, though orientation waxes and wanes. Per neurology, etiology of bilateral SDH may be related to underlying coagulopathy and liver dysfunction. Repeat CTH completed 03/31 stable without changes so will plan to restart apixiban tomorrow pr neurology recs and closely monitor. - Appreciate Neurology recs --- Goal platelets >100 --- rEEG (patient continues to refuse) --- Discontinue DVT ppx heparin SQ BID --- Restart Apixiban 5 mg BID and closely monitor --- Keep HOB >30 degrees --- Goal SBP <160 - Appreciate Neurosurgery recs (following peripherally) --- No indication for surgical intervention --- Continue Keppra 500 mg BID x7d (03/26-04/01), dosed per CrCl --- s/p Vitamin K 03/26-03/27 (S/p vitamin K IV 10mg x1 on 03/26, PO 5mg on 03/27) (goal INR <1.4) Assessment & Plan (03/31/2025 4:37 PM EDT): CT head obtained 03/26 for persistent delirium as below, with interval development/ b/l SDH of 4.4mm, repeat CTH unchanged. The patient has been on a heparin gtt for therapeutic AC for hx of PE as below (on eliquis at home.) INR was ranging 1.6- 2.4 in the time the SDH developed. Neuro exam remains nonfocal. Speech nonsensical, though orientation waxes and wanes. Per neurology, etiology of bilateral SDH may be related to underlying coagulopathy and liver dysfunction. Repeat CTH completed 03/31 stable without changes so will plan to restart apixiban tomorrow and closely monitor. - Appreciate Neurology recs --- Goal platelets >100 --- rEEG (patient continues to refuse) --- Restart Apixiban tomorrow 04/01 --- Keep HOB >30 degrees --- Goal SBP <160 - Appreciate Neurosurgery recs (following peripherally) --- No indication for surgical intervention --- Continue Keppra 500 mg BID x7d (03/26-04/01), dosed per CrCl --- s/p Vitamin K 03/26-03/27 (S/p vitamin K IV 10mg x1 on 03/26, PO 5mg on 03/27) (goal INR <1.4) - Discontinue DVT ppx heparin SQ BID after 2100 dose Assessment & Plan (03/30/2025 10:47 AM EDT): CT head obtained 03/26 for persistent delirium as below, with interval development/ b/l SDH of 4.4mm, repeat CTH unchanged. The patient has been on a heparin gtt for therapeutic AC for hx of PE as below (on eliquis at home.) INR was ranging 1.6- 2.4 in the time the SDH developed. Neuro exam remains nonfocal. Speech nonsensical, though orientation waxes and wanes. Per neurology, etiology of bilateral SDH may be related to underlying coagulopathy and liver dysfunction. - Appreciate Neurology recs --- Goal platelets >100 --- rEEG (patient has been refusing 03/28, 03/29, 03/30) --- Continue to hold AC (Heparin gtt) --- Keep HOB >30 degrees --- Goal SBP <160 - Appreciate Neurosurgery recs (following peripherally) --- No indication for surgical intervention --- Continue Keppra 500 mg BID x7d (03/26-04/01), dosed per CrCl --- Prior to initiating AC will obtain CTH for stability, then start hep gtt, low dose, no bolus. Obtain CTH when therapeutic. --- s/p Vitamin K 03/26-03/27 (S/p vitamin K IV 10mg x1 on 03/26, PO 5mg on 03/27) (goal INR <1.4) - Continue DVT ppx today, heparin SQ BID, and monitor closely for bleeding (the patient's mental status has been improving daily since 03/26, INR is 1.2, H/H are stable, PLTs >100) Assessment & Plan (03/29/2025 5:37 PM EDT): CT head obtained 03/26 for persistent delirium as below, with interval development/ b/l SDH of 4.4mm, repeat CTH unchanged. The patient has been on a heparin gtt for therapeutic AC for hx of PE as below (on eliquis at home.) INR was ranging 1.6- 2.4 in the time the SDH developed. Neuro exam remains nonfocal. Speech nonsensical, though orientation waxes and wanes. Per neurology, etiology of bilateral SDH may be related to underlying coagulopathy and liver dysfunction. - Appreciate Neurology recs --- Goal platelets >100 --- rEEG (patient has been refusing 03/28 and 03/29) --- Continue to hold AC (Heparin gtt) --- Keep HOB >30 degrees --- Goal SBP <160 - Appreciate Neurosurgery recs (following peripherally) --- No indication for surgical intervention --- Continue Keppra 500 mg BID x7d (03/26-04/01), dosed per CrCl --- Prior to initiating AC will obtain CTH for stability, then start hep gtt, low dose, no bolus. Obtain CTH when therapeutic. --- s/p Vitamin K 03/26-03/27 (S/p vitamin K IV 10mg x1 on 03/26, PO 5mg on 03/27) (goal INR <1.4) - Start DVT ppx today, heparin SQ BID, and monitor closely for bleeding (the patient's mental status has been improving daily since 03/26, INR is 1.2, H/H are stable, PLTs >100) Assessment & Plan (03/28/2025 6:38 PM EDT): CT head obtained 03/26 for persistent delirium as below, with interval development/ b/l SDH of 4.4mm, repeat CTH unchanged. The patient has been on a heparin gtt for therapeutic AC for hx of PE as below (on eliquis at home.) INR was ranging 1.6- 2.4 in the time the SDH developed. Neuro exam remains nonfocal. Speech nonsensical, though orientation waxes and wanes. Per neurology, etiology of bilateral SDH may be related to underlying coagulopathy and liver dysfunction. - Appreciate Neurology recs --- Goal platelets >100 --- rEEG scheduled for today 03/28; patient refused, will continue to attempt --- Continue to hold AC (Heparin gtt) --- Keep HOB >30 degrees --- Goal SBP <160 - Appreciate Neurosurgery recs (following peripherally) --- No indication for surgical intervention --- Continue Keppra 500 mg BID x7d (03/26-04/01), dosed per CrCl --- Prior to initiating AC will obtain CTH for stability, then start hep gtt, low dose, no bolus. Obtain CTH when therapeutic. --- Vitamin K x3 days (goal INR <1.4) 03/26-03/28 (S/p vitamin K IV 10mg x1 on 03/26, PO 5mg on 03/27) - Consider hematology consult given coagulopathy and history of PEs as well as GI bleeds and now SDH Assessment & Plan (03/27/2025 6:39 PM EDT): CT head obtained 03/26 for persistent delirium as below, with interval development/ b/l SDH of 4.4mm, repeat CTH unchanged. The patient has been on a heparin gtt for therapeutic AC for hx of PE as below (on eliquis at home.) INR was ranging 1.6- 2.4 in the time the SDH developed. Neuro exam remains nonfocal. Speech nonsensical, though orientation waxes and wanes. Per neurology, etiology of bilateral SDH may be related to underlying coagulopathy and liver dysfunction. - Appreciate Neurology recs --- Goal platelets >100 --- rEEG scheduled for today 03/27 --- Continue to hold AC (Heparin gtt) --- Keep HOB >30 degrees --- Goal SBP <160 - Appreciate Neurosurgery recs (following peripherally) --- No indication for surgical intervention --- Continue Keppra 500 mg BID x7d (03/26-04/01), dosed per CrCl --- Prior to initiating AC (indication per primary team), please obtain CTH for stability, then can start hep gtt, low dose, no bolus. Obtain CTH when therapeutic. --- Vitamin K 5 mg PO x3 (goal INR <1.4) 03/27-03/29 (S/p vitamin K IV 10mg x1 on 03/26) - Consider hematology consult given coagulopathy and history of PEs as well as GI bleeds and now SDH - Hold hep gtt Acute liver failure without hepatic coma 025 Assessment & Plan (04/14/2025 12:24 PM EST): # Coagulopathy (improved) Initially presented to [facility] in acute liver failure, with INR of 7.7. On transfer her LFTs significantly elevated with AST 1258 and ALT 1354. Infectious (Hepatitis, HIV, VZV, HSV, lyme/ehrlichia/anaplasma serologies, hep E IgM), autoimmune markers (GILBERTO weakly + 1:160), malignant (AFP), and tox screen negative with no Hx ETOH intake. RUQUS showed patent hepatic vasculature; no acute abnormalities on OSH MRCP. GI/hepatology was consulted and felt to be possibly related to DILI (recent fosfomycin and macrobid), though more likely related to vascular congestion iso severe TR/MR given improvement with diuresis. INR was corrected with IV vitamin K and was treated with NAC for non APAP HALF-WAY X4 days (03/17-03/20). Initially started on lactulose and rifaximin which have since been discontinued as encephalopathy/hyperammoniemia has resolved. Ultimately LFTs improved with diuresis and remained stable. - GI/Hepatology signed off, appreciate recommendations - Omeprazole 40mg BID in place of home pantoprazole - Diuresis as above Dispo: - Of note; lupus anticoagulant/PTT-LA uninterpretable due to apixaban, anticardiolipin IgM weakly positive (24). Per heme, will need to repeat ALPS labs as outpatient if able to temporarily rotate off apixaban Assessment & Plan (04/13/2025 4:07 PM EST): # Coagulopathy (improved) Initially presented to [facility] in acute liver failure, with INR of 7.7. On transfer her LFTs significantly elevated with AST 1258 and ALT 1354. Infectious (Hepatitis, HIV, VZV, HSV, lyme/ehrlichia/anaplasma serologies, hep E IgM), autoimmune markers (GILBERTO weakly + 1:160), malignant (AFP), and tox screen negative with no Hx ETOH intake. RUQUS showed patent hepatic vasculature; no acute abnormalities on OSH MRCP. GI/hepatology was consulted and felt to be possibly related to DILI (recent fosfomycin and macrobid), though more likely related to vascular congestion iso severe TR/MR given improvement with diuresis. INR was corrected with IV vitamin K and was treated with NAC for non APAP HALF-WAY X4 days (03/17-03/20). Initially started on lactulose and rifaximin which have since been discontinued as encephalopathy/hyperammoniemia has resolved. Ultimately LFTs improved with diuresis and remained stable. - GI/Hepatology signed off, appreciate recommendations - Omeprazole 40mg BID in place of home pantoprazole - Diuresis as above Dispo: - Of note; lupus anticoagulant/PTT-LA uninterpretable due to apixaban, anticardiolipin IgM weakly positive (24). Per heme, will need to repeat ALPS labs as outpatient if able to temporarily rotate off apixaban Assessment & Plan (04/12/2025 3:48 PM EST): # Coagulopathy (improved) Initially presented to [facility] in acute liver failure, with INR of 7.7. On transfer her LFTs significantly elevated with AST 1258 and ALT 1354. Infectious (Hepatitis, HIV, VZV, HSV, lyme/ehrlichia/anaplasma serologies, hep E IgM), autoimmune markers (GILBERTO weakly + 1:160), malignant (AFP), and tox screen negative with no Hx ETOH intake. RUQUS showed patent hepatic vasculature; no acute abnormalities on OSH MRCP. GI/hepatology was consulted and felt to be possibly related to DILI (recent fosfomycin and macrobid), though more likely related to vascular congestion iso severe TR/MR given improvement with diuresis. INR was corrected with IV vitamin K and was treated with NAC for non APAP EMA X4 days (03/17-03/20). Initially started on lactulose and rifaximin which have since been discontinued as encephalopathy/hyperammoniemia has resolved. Ultimately LFTs improved with diuresis and remained stable. - GI/Hepatology signed off, appreciate recommendations - Omeprazole 40mg qd in place of home pantoprazole - Diuresis as above Dispo: - Of note; lupus anticoagulant/PTT-LA uninterpretable due to apixaban, anticardiolipin IgM weakly positive (24). Per heme, will need to repeat ALPS labs as outpatient if able to temporarily rotate off apixaban Assessment & Plan (04/11/2025 6:03 PM EST): # Coagulopathy (improved) Initially presented to [facility] in acute liver failure, with INR of 7.7. On transfer her LFTs significantly elevated with AST 1258 and ALT 1354. Infectious (Hepatitis, HIV, VZV, HSV, lyme/ehrlichia/anaplasma serologies, hep E IgM), autoimmune markers (GILBERTO weakly + 1:160), malignant (AFP), and tox screen negative with no Hx ETOH intake. RUQUS showed patent hepatic vasculature; no acute abnormalities on OSH MRCP. GI/hepatology was consulted and felt to be possibly related to DILI (recent fosfomycin and macrobid), though more likely related to vascular congestion iso severe TR/MR given improvement with diuresis. INR was corrected with IV vitamin K and was treated with NAC for non APAP HALF-WAY X4 days (03/17-03/20). Initially started on lactulose and rifaximin which have since been discontinued as encephalopathy/hyperammoniemia has resolved. Ultimately LFTs improved with diuresis and remained stable. - GI/Hepatology signed off, appreciate recommendations - Omeprazole 40mg qd in place of home pantoprazole - Diuresis as above Dispo: - Of note; lupus anticoagulant/PTT-LA uninterpretable due to apixaban, anticardiolipin IgM weakly positive (24). Per heme, will need to repeat ALPS labs as outpatient if able to temporarily rotate off apixaban Assessment & Plan (04/10/2025 4:46 PM EST): # Coagulopathy (improved) Initially presented to [facility] in acute liver failure, with INR of 7.7. On transfer her LFTs significantly elevated with AST 1258 and ALT 1354. Infectious (Hepatitis, HIV, VZV, HSV, lyme/ehrlichia/anaplasma serologies, hep E IgM), autoimmune markers (GILBERTO weakly + 1:160), malignant (AFP), and tox screen negative with no Hx ETOH intake. RUQUS showed patent hepatic vasculature; no acute abnormalities on OSH MRCP. GI/hepatology was consulted and felt to be possibly related to DILI (recent fosfomycin and macrobid), though more likely related to vascular congestion iso severe TR/MR. INR was corrected with IV vitamin K and was treated with NAC for non APAP EMA X4 days (03/17-03/20). Initially started on lactulose and rifaximin which have since been discontinued as encephalopathy/hyperammoniemia has resolved. Ultimately LFTs improved with diuresis and remained stable. - GI/Hepatology signed off, appreciate recommendations - Omeprazole 40mg qd in place of home pantoprazole - Diuresis as above Dispo: - Of note; lupus anticoagulant/PTT-LA uninterpretable due to apixaban, anticardiolipin IgM weakly positive (24). Per heme, will need to repeat ALPS labs as outpatient if able to temporarily rotate off apixaban Assessment & Plan (04/09/2025 11:38 AM EDT): #Coagulopathy (improved) Initially presented to [facility] in acute liver failure, with INR of 7.7. On transfer her LFTs significantly elevated with AST 1258 and ALT 1354. Infectious (Hepatitis, HIV, VZV, HSV, lyme/ehrlichia/anaplasma serologies, hep E IgM), autoimmune markers (GILBERTO weakly + 1:160), malignant (AFP), and tox screen negative with no Hx ETOH intake. RUQUS showed patent hepatic vasculature; no acute abnormalities on OSH MRCP. GI/hepatology was consulted and felt to be possibly related to DILI (recent fosfomycin and macrobid), though more likely related to vascular congestion iso severe TR/MR. INR was corrected with IV vitamin K and was treated with NAC for non APAP EMA X4 days (03/17-03/20). Initially started on lactulose and rifaximin which have since been discontinued as encephalopathy/hyperammoniemia has resolved. Ultimately LFTs improved with diuresis and remained stable. - GI/Hepatology signed off, appreciate recommendations - Omeprazole 40mg qd in place of home pantoprazole - Diuresis as above Dispo: - Of note; lupus anticoagulant/PTT-LA uninterpretable due to apixaban, anticardiolipin IgM weakly positive (24). Per heme, will need to repeat ALPS labs as outpatient if able to temporarily rotate off apixaban Assessment & Plan (04/08/2025 1:48 PM EDT): #Coagulopathy (improved) Initially presented to [facility] in acute liver failure, with INR of 7.7. On transfer her LFTs significantly elevated with AST 1258 and ALT 1354. Infectious (Hepatitis, HIV, VZV, HSV, lyme/ehrlichia/anaplasma serologies, hep E IgM), autoimmune markers (GILBERTO weakly + 1:160), malignant (AFP), and tox screen negative with no Hx ETOH intake. RUQUS showed patent hepatic vasculature; no acute abnormalities on OSH MRCP. GI/hepatology was consulted and felt to be possibly related to DILI (recent fosfomycin and macrobid), though more likely related to vascular congestion iso severe TR/MR. INR was corrected with IV vitamin K and was treated with NAC for non APAP HALF-WAY X4 days (03/17-03/20). Initially started on lactulose and rifaximin which have since been discontinued as encephalopathy/hyperammoniemia has resolved. Ultimately LFTs improved with diuresis and remained stable. - GI/Hepatology signed off, appreciate recommendations - Omeprazole 40mg qd in place of home pantoprazole - Diuresis as above Dispo: - Of note; lupus anticoagulant/PTT-LA uninterpretable due to apixaban, anticardiolipin IgM weakly positive (24). Per heme, will need to repeat ALPS labs as outpatient if able to temporarily rotate off apixaban Assessment & Plan (04/07/2025 8:30 AM EDT): #Coagulopathy (improved) Initially presented to [facility] in acute liver failure, with INR of 7.7. On transfer her LFTs significantly elevated with AST 1258 and ALT 1354. Hepatitis, VZV, HSV, lyme/ehrlichia/anaplasma serologies, and hep E IgM were negative; RUQUS showed patent hepatic vasculature; no acute abnormalities on OSH MRCP; hepatitis and HIV serologies negative; tox screen negative; no hx ETOH intake; autoimmune markers negative (GILBERTO weakly + 1:160); AFP<1.8. INR corrected with IV vitamin K. She was also treated with NAC for non-APAP HALF-WAY x 4 days (03/17-), and started on lactulose and rifaximin given encephalopathy and hyperammonemia, both now discontinued as ammonia level WNL and she is having frequent BMs. She has been diuresed as above, and LFTs continue to downtrend steadily. GI/hepatology was consulted and have signed off. It is possible ALI was related to a DILI (recent fosfomycin, macrobid are potential culprits,) however it is more likely her ALI and subsequent coagulopathy may have been in the setting of vascular congestion given findings of severe TR this admission and improvement with diuresis. INR may have also been disproportionately elevated due to previous SANDRA and impaired clearance of eliquis. - GI/Hepatology signed off, appreciate recommendations - Trend LFTs, INR daily - Omeprazole 40mg qd in [address] of home pantoprazole - Diuresis as above Dispo: - Of note; lupus anticoagulant/PTT-LA uninterpretable due to apixaban, anticardiolipin IgM weakly positive (24). Per heme, will need to repeat ALPS labs as outpatient if able to temporarily rotate off apixaban Assessment & Plan (04/06/2025 2:39 PM EDT): #Coagulopathy (improved) Initially presented to [facility] in acute liver failure, with INR of 7.7. On transfer her LFTs significantly elevated with AST 1258 and ALT 1354. Hepatitis, VZV, HSV, lyme/ehrlichia/anaplasma serologies, and hep E IgM were negative; RUQUS showed patent hepatic vasculature; no acute abnormalities on OSH MRCP; hepatitis and HIV serologies negative; tox screen negative; no hx ETOH intake; autoimmune markers negative (GILBERTO weakly + 1:160); AFP<1.8. INR corrected with IV vitamin K. She was also treated with NAC for non-APAP EMA x 4 days (03/17-), and started on lactulose and rifaximin given encephalopathy and hyperammonemia, both now discontinued as ammonia level WNL and she is having frequent BMs. She has been diuresed as above, and LFTs continue to downtrend steadily. GI/hepatology was consulted and have signed off. It is possible ALI was related to a DILI (recent fosfomycin, macrobid are potential culprits,) however it is more likely her ALI and subsequent coagulopathy may have been in the setting of vascular congestion given findings of severe TR this admission and improvement with diuresis. INR may have also been disproportionately elevated due to previous SANDRA and impaired clearance of eliquis. - GI/Hepatology signed off, appreciate recommendations - Trend LFTs, INR daily - Omeprazole 40mg qd in [address] of home pantoprazole - Diuresis as above Dispo: - Of note; lupus anticoagulant/PTT-LA uninterpretable due to apixaban, anticardiolipin IgM weakly positive (24). Per heme, will need to repeat ALPS labs as outpatient if able to temporarily rotate off apixaban Assessment & Plan (04/05/2025 8:06 AM EDT): #Coagulopathy (improved) Initially presented to [facility] in acute liver failure, with INR of 7.7. On transfer her LFTs significantly elevated with AST 1258 and ALT 1354. Hepatitis, VZV, HSV, lyme/ehrlichia/anaplasma serologies, and hep E IgM were negative; RUQUS showed patent hepatic vasculature; no acute abnormalities on OSH MRCP; hepatitis and HIV serologies negative; tox screen negative; no hx ETOH intake; autoimmune markers negative (GILBERTO weakly + 1:160); AFP<1.8. INR corrected with IV vitamin K. She was also treated with NAC for non-APAP EMA x 4 days (03/17-), and started on lactulose and rifaximin given encephalopathy and hyperammonemia, both now discontinued as ammonia level WNL and she is having frequent BMs. She has been diuresed as above, and LFTs continue to downtrend steadily. GI/hepatology was consulted and have signed off. It is possible ALI was related to a DILI (recent fosfomycin, macrobid are potential culprits,) however it is more likely her ALI and subsequent coagulopathy may have been in the setting of vascular congestion given findings of severe TR this admission and improvement with diuresis. INR may have also been disproportionately elevated due to previous SANDRA and impaired clearance of eliquis. - GI/Hepatology signed off, appreciate recommendations - Trend LFTs, INR daily - Discontinued rifaximin 550mg BID given stable ammonia level and downtrending LFTs - Omeprazole [address]mg q[address] of home pantoprazole - Diuresis as above Dispo: - Of note; lupus anticoagulant/PTT-LA uninterpretable due to apixaban, anticardiolipin IgM weakly positive (24). Per heme, will need to repeat ALPS labs as outpatient if able to temporarily rotate off apixaban Assessment & Plan (04/04/2025 4:38 PM EDT): #Coagulopathy (improved) Initially presented to [facility] in acute liver failure, with INR of 7.7. On transfer her LFTs significantly elevated with AST 1258 and ALT 1354. Hepatitis, VZV, HSV, lyme/ehrlichia/anaplasma serologies, and hep E IgM were negative; RUQUS showed patent hepatic vasculature; no acute abnormalities on OSH MRCP; hepatitis and HIV serologies negative; tox screen negative; no hx ETOH intake; autoimmune markers negative (GILBERTO weakly + 1:160); AFP<1.8. INR corrected with IV vitamin K. She was also treated with NAC for non-APAP HALF-WAY x 4 days (03/17-), and started on lactulose and rifaximin given encephalopathy and hyperammonemia, both now discontinued as ammonia level WNL and she is having frequent BMs. She has been diuresed as above, and LFTs continue to downtrend steadily. GI/hepatology was consulted and have signed off. It is possible ALI was related to a DILI (recent fosfomycin, macrobid are potential culprits,) however it is more likely her ALI and subsequent coagulopathy may have been in the setting of vascular congestion given findings of severe TR this admission and improvement with diuresis. INR may have also been disproportionately elevated due to previous SANDRA and impaired clearance of eliquis. - GI/Hepatology signed off, appreciate recommendations - Trend LFTs, INR daily - Discontinued rifaximin 550mg BID given stable ammonia level and downtrending LFTs - Omeprazole [address]mg q[address] in [address] of home pantoprazole - Diuresis as above Dispo: - Of note; lupus anticoagulant/PTT-LA uninterpretable due to apixaban, anticardiolipin IgM weakly positive (24). Per heme, will need to repeat ALPS labs as outpatient if able to temporarily rotate off apixaban Assessment & Plan (04/03/2025 1:14 PM EDT): #Coagulopathy (improved) Initially presented to [facility] in acute liver failure, with INR of 7.7. On transfer her LFTs significantly elevated with AST 1258 and ALT 1354. Hepatitis, VZV, HSV, lyme/ehrlichia/anaplasma serologies, and hep E IgM were negative; RUQUS showed patent hepatic vasculature; no acute abnormalities on OSH MRCP; hepatitis and HIV serologies negative; tox screen negative; no hx ETOH intake; autoimmune markers negative (GILBERTO weakly + 1:160); AFP<1.8. INR corrected with IV vitamin K. She was also treated with NAC for non-APAP EMA x 4 days (03/17-), and started on lactulose and rifaximin given encephalopathy and hyperammonemia, both now discontinued as ammonia level WNL and she is having frequent BMs. She has been diuresed as above, and LFTs continue to downtrend steadily. GI/hepatology was consulted and have signed off. It is possible ALI was related to a DILI (recent fosfomycin, macrobid are potential culprits,) however it is more likely her ALI and subsequent coagulopathy may have been in the setting of vascular congestion given findings of severe TR this admission and improvement with diuresis. INR may have also been disproportionately elevated due to previous SANDRA and impaired clearance of eliquis. - GI/Hepatology signed off, appreciate recommendations - Trend LFTs, INR daily - Discontinued rifaximin 550mg BID given stable ammonia level and downtrending LFTs - Omeprazole 40mg q[address] in [address] of home pantoprazole - Diuresis as above Dispo: - Of note; lupus anticoagulant/PTT-LA uninterpretable due to apixaban, anticardiolipin IgM weakly positive (24). Per heme, will need to repeat ALPS labs as outpatient if able to temporarily rotate off apixaban Assessment & Plan (04/02/2025 5:28 PM EDT): #Coagulopathy (improved) Initially presented to [facility] in acute liver failure, with INR of 7.7. On transfer her LFTs significantly elevated with AST 1258 and ALT 1354. Hepatitis, VZV, HSV, lyme/ehrlichia/anaplasma serologies, and hep E IgM were negative; RUQUS showed patent hepatic vasculature; no acute abnormalities on OSH MRCP; hepatitis and HIV serologies negative; tox screen negative; no hx ETOH intake; autoimmune markers negative (GILBERTO weakly + 1:160); AFP<1.8. INR corrected with IV vitamin K. She was also treated with NAC for non-APAP EMA x 4 days (03/17-), and started on lactulose and rifaximin given encephalopathy and hyperammonemia, both now discontinued as ammonia level WNL and she is having frequent BMs. She has been diuresed as above, and LFTs continue to downtrend steadily. GI/hepatology was consulted and have signed off. It is possible ALI was related to a DILI (recent fosfomycin, macrobid are potential culprits,) however it is more likely her ALI and subsequent coagulopathy may have been in the setting of vascular congestion given findings of severe TR this admission and improvement with diuresis. INR may have also been disproportionately elevated due to previous SANDRA and impaired clearance of eliquis. - GI/Hepatology signed off, appreciate recommendations - Trend LFTs, INR daily - Discontinued rifaximin 550mg BID given stable ammonia level and downtrending LFTs - Omeprazole 40mg q[address] in [address] of home pantoprazole - Diuresis as above Dispo: - Of note; lupus anticoagulant/PTT-LA uninterpretable due to apixaban, anticardiolipin IgM weakly positive (24). Per heme, will need to repeat ALPS labs as outpatient if able to temporarily rotate off apixaban Assessment & Plan (04/01/2025 7:39 AM EDT): #Coagulopathy (improved) Initially presented to [facility] in acute liver failure, with INR of 7.7. On transfer her LFTs significantly elevated with AST 1258 and ALT 1354. Hepatitis, VZV, HSV, lyme/ehrlichia/anaplasma serologies, and hep E IgM were negative; RUQUS showed patent hepatic vasculature; no acute abnormalities on OSH MRCP; hepatitis and HIV serologies negative; tox screen negative; no hx ETOH intake; autoimmune markers negative (GILBERTO weakly + 1:160); AFP<1.8. INR corrected with IV vitamin K. She was also treated with NAC for non-APAP HALF-WAY x 4 days (03/17-), and started on lactulose and rifaximin given encephalopathy and hyperammonemia, both now discontinued as ammonia level WNL and she is having frequent BMs. She has been diuresed as above, and LFTs continue to downtrend steadily. GI/hepatology was consulted and have signed off. It is possible ALI was related to a DILI (recent fosfomycin, macrobid are potential culprits,) however it is more likely her ALI and subsequent coagulopathy may have been in the setting of vascular congestion given findings of severe TR this admission and improvement with diuresis. INR may have also been disproportionately elevated due to previous SANDRA and impaired clearance of eliquis. - GI/Hepatology signed off, appreciate recommendations - Trend LFTs, INR daily - Discontinued rifaximin 550mg BID given stable ammonia level and downtrending LFTs - Omeprazole [address]mg q[address] in [address] of home pantoprazole - Diuresis as above Dispo: - Of note; lupus anticoagulant/PTT-LA uninterpretable due to apixaban, anticardiolipin IgM weakly positive (24). Per heme, will need to repeat ALPS labs as outpatient if able to temporarily rotate off apixaban Assessment & Plan (03/31/2025 7:38 AM EDT): #Coagulopathy (improved) Initially presented to [facility] in acute liver failure, with INR of 7.7. On transfer her LFTs significantly elevated with AST 1258 and ALT 1354. Hepatitis, VZV, HSV, lyme/ehrlichia/anaplasma serologies, and hep E IgM were negative; RUQUS showed patent hepatic vasculature; no acute abnormalities on OSH MRCP; hepatitis and HIV serologies negative; tox screen negative; no hx ETOH intake; autoimmune markers negative (GILBERTO weakly + 1:160); AFP<1.8. INR corrected with IV vitamin K. She was also treated with NAC for non-APAP HALF-WAY x 4 days (03/17-), and started on lactulose and rifaximin given encephalopathy and hyperammonemia, both now discontinued as ammonia level WNL and she is having frequent BMs. She has been diuresed as above, and LFTs continue to downtrend steadily. GI/hepatology was consulted and have signed off. It is possible ALI was related to a DILI (recent fosfomycin, macrobid are potential culprits,) however it is more likely her ALI and subsequent coagulopathy may have been in the setting of vascular congestion given findings of severe TR this admission and improvement with diuresis. INR may have also been disproportionately elevated due to previous SANDRA and impaired clearance of eliquis. - GI/Hepatology signed off, appreciate recommendations - Trend LFTs, INR daily - Discontinued rifaximin 550mg BID given stable ammonia level and downtrending LFTs - Omeprazole 40mg qd in place of home pantoprazole - Diuresis as above Dispo: - Of note; lupus anticoagulant/PTT-LA uninterpretable due to apixaban, anticardiolipin IgM weakly positive (24). Per heme, will need to repeat ALPS labs as outpatient if able to temporarily rotate off apixaban Assessment & Plan (03/30/2025 7:04 AM EDT): #Coagulopathy (improved) Initially presented to [facility] in acute liver failure, with INR of 7.7. On transfer her LFTs significantly elevated with AST 1258 and ALT 1354. Hepatitis, VZV, HSV, lyme/ehrlichia/anaplasma serologies, and hep E IgM were negative; RUQUS showed patent hepatic vasculature; no acute abnormalities on OSH MRCP; hepatitis and HIV serologies negative; tox screen negative; no hx ETOH intake; autoimmune markers negative (GILBERTO weakly + 1:160); AFP<1.8. INR corrected with IV vitamin K. She was also treated with NAC for non-APAP HALF-WAY x 4 days (03/17-), and started on lactulose and rifaximin given encephalopathy and hyperammonemia, both now discontinued as ammonia level WNL and she is having frequent BMs. She has been diuresed as above, and LFTs continue to downtrend steadily. GI/hepatology was consulted and have signed off. It is possible ALI was related to a DILI (recent fosfomycin, macrobid are potential culprits,) however it is more likely her ALI and subsequent coagulopathy may have been in the setting of vascular congestion given findings of severe TR this admission and improvement with diuresis. INR may have also been disproportionately elevated due to previous SANDRA and impaired clearance of eliquis. - GI/Hepatology signed off, appreciate recommendations - Trend LFTs, INR daily - Discontinued rifaximin 550mg BID given stable ammonia level and downtrending LFTs - Omeprazole 40mg qd in [address] of home pantoprazole - Diuresis as above Dispo: - Of note; lupus anticoagulant/PTT-LA uninterpretable due to apixaban, anticardiolipin IgM weakly positive (24). Per heme, will need to repeat ALPS labs as outpatient if able to temporarily rotate off apixaban Assessment & Plan (03/29/2025 5:37 PM EDT): #Coagulopathy (improved) Initially presented to [facility] in acute liver failure, with INR of 7.7. On transfer her LFTs significantly elevated with AST 1258 and ALT 1354. Hepatitis, VZV, HSV, lyme/ehrlichia/anaplasma serologies, and hep E IgM were negative; RUQUS showed patent hepatic vasculature; no acute abnormalities on OSH MRCP; hepatitis and HIV serologies negative; tox screen negative; no hx ETOH intake; autoimmune markers negative (GILBERTO weakly + 1:160); AFP<1.8. INR corrected with IV vitamin K. She was also treated with NAC for non-APAP EMA x 4 days (03/17-), and started on lactulose and rifaximin given encephalopathy and hyperammonemia, both now discontinued as ammonia level WNL and she is having frequent BMs. She has been diuresed as above, and LFTs continue to downtrend steadily. GI/hepatology was consulted and have signed off. It is possible ALI was related to a DILI (recent fosfomycin, macrobid are potential culprits,) however it is more likely her ALI and subsequent coagulopathy may have been in the setting of vascular congestion given findings of severe TR this admission and improvement with diuresis. INR may have also been disproportionately elevated due to previous SANDRA and impaired clearance of eliquis. - GI/Hepatology signed off, appreciate recommendations - Trend LFTs, INR daily - Discontinued rifaximin 550mg BID given stable ammonia level and downtrending LFTs - Omeprazole 40mg qd in [address] of home pantoprazole - Diuresis as above Dispo: - Of note; lupus anticoagulant/PTT-LA uninterpretable due to apixaban, anticardiolipin IgM weakly positive (24). Per heme, will need to repeat ALPS labs as outpatient if able to temporarily rotate off apixaban Assessment & Plan (03/28/2025 6:38 PM EDT): #Coagulopathy (improved) Initially presented to [facility] in acute liver failure, with INR of 7.7. On transfer her LFTs significantly elevated with AST 1258 and ALT 1354. Hepatitis, VZV, HSV, lyme/ehrlichia/anaplasma serologies, and hep E IgM were negative; RUQUS showed patent hepatic vasculature; no acute abnormalities on OSH MRCP; hepatitis and HIV serologies negative; tox screen negative; no hx ETOH intake; autoimmune markers negative (GILBERTO weakly + 1:160); AFP<1.8. INR corrected with IV vitamin K. She was also treated with NAC for non-APAP EMA x 4 days (03/17-), and started on lactulose and rifaximin given encephalopathy and hyperammonemia, both now discontinued as ammonia level WNL and she is having frequent BMs. She has been diuresed as above, and LFTs continue to downtrend steadily. GI/hepatology was consulted and have signed off. It is possible ALI was related to a DILI (recent fosfomycin, macrobid are potential culprits,) however it is more likely her ALI and subsequent coagulopathy may have been in the setting of vascular congestion given findings of severe TR this admission and improvement with diuresis. INR may have also been disproportionately elevated due to previous SANDRA and impaired clearance of eliquis. - GI/Hepatology signed off, appreciate recommendations - Trend LFTs, INR daily - Discontinue rifaximin 550mg BID given stable ammonia level and downtrending LFTs - Omeprazole 40mg q[address] of home pantoprazole - Diuresis as above Dispo: - Of note; lupus anticoagulant/PTT-LA uninterpretable due to apixaban, anticardiolipin IgM weakly positive (24). Per heme, will need to repeat ALPS labs as outpatient if able to temporarily rotate off apixaban Assessment & Plan (03/27/2025 6:39 PM EDT): #Coagulopathy (improved) Initially presented to [facility] in acute liver failure, with INR of 7.7. On transfer her, LFTs significantly elevated with AST 1258 and ALT 1354. Hepatology was consulted who are unclear on true etiology, but suggest that this may have been a DILI (recent fosfomycin, macrobid are potential culprits) versus congestive hepatopathy especially in the setting of newly severe #TR. In terms of workup for alternative etiologies: Hepatitis, VZV, HSV, lyme/ehrlichia/anaplasma serologies were negative; RUQUS showed patent hepatic vasculature; no acute abnormalities on OSH MRCP; hepatitis and HIV serologies negative; tox screen negative; no hx ETOH intake; autoimmune markers negative (GILBERTO weakly + 1:160); AFP<1.8. For her INR, she received IV VK 10mg x 3 doses (03/16-03/18). She was also treated with NAC for non-APAP EMA x 4 days (03/17-), and started on lactulose and rifaximin given # delirium and hyperammonemia. With time and ongoing diuresis, LFTs have been down-trending steadily, supporting congestive hepatopathy +/- DILI. Lactulose was held iso colitis/pneumonitis, but now with asterixis on exam. Repeat ammonia level 23. Continues to meet goal BMs per day. - Appreciate Hepatology following & recs - Trend LFTs, INR daily - F/U pending workup: hep E IgM, SPEP - Of note; lupus anticoagulant/PTT-LA uninterpretable due to apixaban, anticardiolipin IgM weakly positive (24). - Stopped lactulose per GI given improvement in hepatic function. Maintain bowel regimen with rifaxamin and prn miralax/senna, goal 2-3 BMs/day - Cont rifaximin 550mg BID - Omeprazole 40mg q[address] of home pantoprazole - Diuresis as above Dispo: - Per heme, will need to repeat ALPS labs as outpatient if able to temporarily rotate off apixaban Assessment & Plan (03/26/2025 6:37 PM EDT): #Coagulopathy (improved) Initially presented to [facility] in acute liver failure, with INR of 7.7. On transfer her, LFTs significantly elevated with AST 1258 and ALT 1354. Hepatology was consulted who are unclear on true etiology, but suggest that this may have been a DILI (recent fosfomycin, macrobid are potential culprits) versus congestive hepatopathy especially in the setting of newly severe #TR. In terms of workup for alternative etiologies: Hepatitis, VZV, HSV, lyme/ehrlichia/anaplasma serologies were negative; RUQUS showed patent hepatic vasculature; no acute abnormalities on OSH MRCP; hepatitis and HIV serologies negative; tox screen negative; no hx ETOH intake; autoimmune markers negative (GILBERTO weakly + 1:160); AFP<1.8. For her INR, she received IV VK 10mg x 3 doses (03/16-03/18). She was also treated with NAC for non-APAP EMA x 4 days (03/17-), and started on lactulose and rifaximin given # delirium and hyperammonemia. With time and ongoing diuresis, LFTs have been down-trending steadily, supporting congestive hepatopathy +/- DILI. Lactulose was held iso colitis/pneumonitis, but now with asterixis on exam. Will check ammonia level. Had 2 large soft stools today. - Appreciate Hepatology following & recs - Trend LFTs, INR daily - F/u ammonia - F/U pending workup: hep E IgM, SPEP - Of note; lupus anticoagulant/PTT-LA uninterpretable due to apixaban, anticardiolipin IgM weakly positive (24). - Stopped lactulose per GI given improvement in hepatic function. Maintain bowel regimen with rifaxamin and prn miralax/senna, goal 2-3 BMs/day - Cont rifaximin 550mg BID - Omeprazole 40mg q[address] of home pantoprazole - Diuresis as above Dispo: - Per heme, will need to repeat ALPS labs as outpatient if able to temporarily rotate off apixaban Assessment & Plan (03/25/2025 12:00 PM EDT): #Coagulopathy (improved) Initially presented to [facility] in acute liver failure, with INR of 7.7. On transfer her, LFTs significantly elevated with AST 1258 and ALT 1354. Hepatology was consulted who are unclear on true etiology, but suggest that this may have been a DILI (recent fosfomycin, macrobid are potential culprits) versus congestive hepatopathy especially in the setting of newly severe #TR. In terms of workup for alternative etiologies: Hepatitis, VZV, HSV, lyme/ehrlichia/anaplasma serologies were negative; RUQUS showed patent hepatic vasculature; no acute abnormalities on OSH MRCP; hepatitis and HIV serologies negative; tox screen negative; no hx ETOH intake; autoimmune markers negative (GILBERTO weakly + 1:160); AFP<1.8. For her INR, she received IV VK 10mg x 3 doses (03/16-03/18). She was also treated with NAC for non-APAP HALF-WAY x 4 days (03/17-), and started on lactulose and rifaximin given # delirium and hyperammonemia (now resolved). With time and ongoing diuresis, LFTs have been down-trending steadily, supporting congestive hepatopathy +/- DILI. - Appreciate Hepatology following & recs - Trend LFTs, INR daily - F/U pending workup: hep E IgM, SPEP --- Of note; lupus anticoagulant/PTT-LA uninterpretable due to apixaban, anticardiolipin IgM weakly positive (24). - Stopped lactulose per GI given improvement in hepatic function. Maintain bowel regimen with rifaxamin and prn miralax/senna, goal 2-3 BMs/day - Cont rifaximin 550mg BID - Omeprazole 40mg qd [address] of home pantoprazole - Diuresis as above Dispo: - Per heme, will need to repeat ALPS labs as outpatient if able to temporarily rotate off apixaban Assessment & Plan (03/24/2025 4:37 PM EDT): #Coagulopathy (improved) Initially presented to [facility] in acute liver failure, with INR of 7.7. On transfer her, LFTs significantly elevated with AST 1258 and ALT 1354. Hepatology was consulted who are unclear on true etiology, but suggest that this may have been a DILI (recent fosfomycin, macrobid are potential culprits) versus congestive hepatopathy especially in the setting of newly severe #TR. In terms of workup for alternative etiologies: RUQUS with patent hepatic vasculature; no acute abnormalities on OSH MRCP; hepatitis and HIV serologies negative; tox screen negative; no hx ETOH intake; autoimmune markers negative (GILBERTO weakly + 1:160); AFP<1.8. For her INR, she received IV VK 10mg x 3 doses (03/16-03/18). She was also treated with NAC for non-APAP HALF-WAY x 4 days (03/17-), and started on lactulose and rifaximin given # delirium and hyperammonemia (now resolved). With time and ongoing diuresis, LFTs have been down-trending steadily, supporting congestive hepatopathy +/- DILI. - Appreciate Hepatology following & recs - Trend LFTs, INR daily - F/U pending workup: hep E IgM, SPEP --- PEth, Lyme/ehrlichia/anaplasma. VZV, HSV negative, Lupus anticoagulant/PTT- LA uninterpretable due to apixaban, anticardiolipin IgM weakly positive (24). - Stopped lactulose per GI given improvement in hepatic function, maintain bowel regimen with rifaxamin and prn miralax/senna, goal 2-3 BMs/day - Cont rifaximin 550mg BID - Omeprazole 40mg qd [address] of home pantoprazole - Diuresis as above Dispo: - Per heme, will need to repeat ALPS labs as outpatient if able to temporarily rotate off apixaban Assessment & Plan (03/23/2025 2:31 PM EDT): #Coagulopathy (improved) Initially presented to [facility] in acute liver failure, with INR of 7.7. On transfer her, LFTs significantly elevated with AST 1258 and ALT 1354. Hepatology was consulted who are unclear on true etiology, but suggest that this may have been a DILI (recent fosfomycin, macrobid are potential culprits) versus congestive hepatopathy especially in the setting of newly severe #TR. In terms of workup for alternative etiologies: RUQUS with patent hepatic vasculature; no acute abnormalities on OSH MRCP; hepatitis and HIV serologies negative; tox screen negative; no hx ETOH intake; autoimmune markers negative (GILBERTO weakly + 1:160); AFP<1.8. For her INR, she received IV VK 10mg x 3 doses (03/16-03/18). She was also treated with NAC for non-APAP EMA x 4 days (03/17-), and started on lactulose and rifaximin given # delirium and hyperammonemia (now resolved). With time and ongoing diuresis, LFTs have been down-trending steadily, supporting congestive hepatopathy +/- DILI. - Appreciate Hepatology following & recs - Trend LFTs, INR daily - F/U pending workup: VZV IgM, HSV PCR, hep E IgM, SPEP/SFLC, APLAS labs --- Lyme/ehrlichia/anaplasma negative, Lupus anticoagulant/PTT-LA positive, anticardiolipin IgM weakly positive (24), PEth negative. - STOP lactulose per GI given improvement in hepatic function, maintain bowel regimen with rifaxamin and prn miralax/senna, goal 2-3 BMs/day - Cont rifaximin 550mg BID - Omeprazole 40mg q[address] of home pantoprazole - Diuresis as above Assessment & Plan (03/22/2025 2:02 PM EDT): #Coagulopathy (improved) Initially presented to [facility] in acute liver failure, with INR of 7.7. On transfer her, LFTs significantly elevated with AST 1258 and ALT 1354. Hepatology was consulted who are unclear on true etiology, but suggest that this may have been a DILI (recent fosfomycin, macrobid are potential culprits) versus congestive hepatopathy especially in the setting of newly severe #TR. In terms of workup for alternative etiologies: RUQUS with patent hepatic vasculature; no acute abnormalities on OSH MRCP; hepatitis and HIV serologies negative; tox screen negative; no hx ETOH intake; autoimmune markers negative (GILBERTO weakly + 1:160); AFP<1.8. For her INR, she received IV VK 10mg x 3 doses (03/16-03/18). She was also treated with NAC for non-APAP HALF-WAY x 4 days (03/17-), and started on lactulose and rifaximin given # delirium and hyperammonemia (now resolved). With time and ongoing diuresis, LFTs have been down-trending steadily, supporting congestive hepatopathy +/- DILI. - Appreciate Hepatology following & recs - Trend LFTs, INR daily - F/U pending workup: VZV IgM, HSV PCR, hep E IgM, SPEP/SFLC, PEth, Lyme screen, ehrlichia/anaplasma, APLAS labs --- Lyme negative, - Cont lactulose 20g TID; hold if >3 BMs in 1 day - Cont rifaximin 550mg BID - Omeprazole 40mg qd in [address] of home pantoprazole - Diuresis as above Assessment & Plan (03/21/2025 10:17 AM EDT): Patient with liver function tests initially notable for AST 1258 and ALT 1354. Hepatology consulted who are unclear on true etiology, but suggest that this could be DILI (fosfomycin, macrobid are potential culprits) versus congestive hepatopathy especially in the setting of newly severe # TR. In terms of workup for alternative etiologies: RUQUS with patent hepatic vasculature; no acute abnormalities on OSH MRCP; hepatitis and HIV serologies negative; tox screen negative; no hx ETOH intake; autoimmune markers negative (GILBERTO weakly + 1:160); AFP<1.8. With ongoing diuresis LFTs have been down-trending steadily, supporting congestive hepatopathy as most likely. Treated with NAC for non-APAP HALF-WAY x 4 days (03/17-) per GI and started on lactulose and rifaximin given # delirium and hyperammonemia (peak 97, wnl in 40s last check, no longer trending per GI). - Appreciate hepatology following & recs - Trend LFTs daily - F/U pending workup: VZV IgM, HSV PCR, hep E IgM, SPEP/SFLC, PEth, Lyme screen, ehrlichia/anaplasma, APLAS labs - S/P NAC - Cont lactulose 20g TID - Cont rifaximin 550mg BID - Diuresis as above Assessment & Plan (03/20/2025 2:00 PM EDT): Patient with liver function tests initially notable for AST 1258 and ALT 1354. Hepatology consulted who are unclear on true etiology, but suggest that this could be DILI (fosfomycin, macrobid are potential culprits) versus congestive hepatopathy especially in the setting of severe TR. In terms of workup for alternative etiologies: RUQUS with patent hepatic vasculature; no acute abnormalities on OSH MRCP; hepatitis and HIV serologies negative; tox screen negative; no hx ETOH intake; autoimmune markers negative (GILBERTO weakly + 1:160); AFP<1.8. With ongoing diuresis LFTs have been down-trending steadily, supporting congestive hepatopathy as most likely. Treated with NAC for non-APAP HALF-WAY x 4 days (03/17-) per GI and started on lactulose and rifaximin given # somnolence and hyperammonemia (peak 97, wnl in 40s last check, no longer trending per GI). - Appreciate hepatology following & recs - Trend LFTs daily - F/U pending workup: VZV IgM, HSV PCR, hep E IgM, SPEP/SFLC, PEth, Lyme screen, APLAS labs - S/P NAC 03/17- - Cont lactulose 20g TID - Start rifaximin 550mg BID per GI - Diuresis as above Assessment & Plan (03/20/2025 4:11 AM EDT): Patient with liver function tests initially notable for AST 1258 and ALT 1354, now improving. Hepatology consulted who are unclear on true etiology, but suggest that this could be DILI versus congestive hepatopathy especially in the setting of severe TR. Dopper US with patent veins without evidence of portal HTN. Also unclear story if patient ever received fosfomycin but appears she has not. - Hepatology following, appreciate recs - trend LFTs - f/u PEth - held home eliquis given elevated INR requiring vitamin K earlier in hospital course - continue NAC protocol for now AMS (altered mental status) 03/20/2025 Assessment & Plan (04/14/2025 12:24 PM EST): # TME (resolved) # Hepatic encephalopathy (resolved) # Delirium (resolved) Pt with hx CVA, PE (2019) as below as well as white matter lesions due to MS. Per son Olvin, her baseline cognition is very good. This admission pt with AMS and somnolence found to be multifactorial in the setting of hospital acquired delirium, TME from colitis in the setting of MS, and bilateral SDH as elsewhere. Psychiatry consulted who recommended trazodone as first line for agitation, of note family is not comfortable with pt receiving zyprexa as second line. Reassuringly her mental status has improved to baseline. - Appreciate psych recs ---Trazodone 25mg Q6h PRN - Monitor for recurrence of infection as per #colitis - Optimize sleep/wake cycle --- Scheduled melatonin earlier for 6pm for improved effect. - Ensure regular BMs - Appreciate GEOLOGICAL ENGINEER following --- Advanced to regular diet, carb controlled - Hold home adderall, amantadine, valium Assessment & Plan (04/13/2025 4:07 PM EST): # TME (resolved) # Hepatic encephalopathy (resolved) # Delirium (resolved) Pt with hx CVA, PE (2019) as below as well as white matter lesions due to MS. Per maxx Bah, her baseline cognition is very good. This admission pt with AMS and somnolence found to be multifactorial in the setting of hospital acquired delirium, TME from colitis in the setting of MS, and bilateral SDH as elsewhere. Psychiatry consulted who recommended trazodone as first line for agitation, of note family is not comfortable with pt receiving zyprexa as second line. Reassuringly her mental status has improved to baseline. - Appreciate psych recs ---Trazodone 25mg Q6h PRN - Monitor for recurrence of infection as per #colitis - Optimize sleep/wake cycle --- Scheduled melatonin earlier for 6pm for improved effect. - Ensure regular BMs - Appreciate GEOLOGICAL ENGINEER following --- Advanced to regular diet, carb controlled - Hold home adderall, amantadine, valium Assessment & Plan (04/12/2025 3:48 PM EST): # TME (resolved) # Hepatic encephalopathy (resolved) # Delirium (resolved) Pt with hx CVA, PE (2019) as below as well as white matter lesions due to MS. Per son Olvin, her baseline cognition is very good. This admission pt with AMS and somnolence found to be multifactorial in the setting of hospital acquired delirium, TME from colitis in the setting of MS, and bilateral SDH as elsewhere. Psychiatry consulted who recommended trazodone as first line for agitation, of note family is not comfortable with pt receiving zyprexa as second line. Reassuringly her mental status has improved to baseline. - Appreciate psych recs ---Trazodone 25mg Q6h PRN - Monitor for recurrence of infection as per #colitis - Optimize sleep/wake cycle --- Scheduled melatonin earlier for 6pm for improved effect. - Ensure regular BMs - Appreciate GEOLOGICAL ENGINEER following --- Advanced to regular diet, carb controlled - Hold home adderall, amantadine, valium Assessment & Plan (04/11/2025 6:03 PM EST): # TME (resolved) # Hepatic encephalopathy (resolved) # Delirium (resolved) Pt with hx CVA, PE (2019) as below as well as white matter lesions due to MS. Per maxx Bah, her baseline cognition is very good. This admission pt with AMS and somnolence found to be multifactorial in the setting of hospital acquired delirium, TME from colitis in the setting of MS, and bilateral SDH as elsewhere. Psychiatry consulted who recommended trazodone as first line for agitation, of note family is not comfortable with pt receiving zyprexa as second line. Reassuringly her mental status has improved to baseline. -Appreciate psych recs ---Trazodone 25mg Q6h PRN - Monitor for recurrence of infection as per #colitis - Optimize sleep/wake cycle --- Scheduled melatonin earlier for 6pm for improved effect. - Ensure regular BMs - Appreciate GEOLOGICAL ENGINEER following --- Advanced to regular diet, carb controlled. - Hold home adderall, amantadine, valium Assessment & Plan (04/10/2025 4:46 PM EST): # TME (resolved) # Hepatic encephalopathy (resolved) # Delirium (resolved) Pt with hx CVA, PE (2019) as below as well as white matter lesions due to MS. Per maxx Bah, her baseline cognition is very good. This admission pt with AMS and somnolence found to be multifactorial in the setting of hospital acquired delirium, TME from colitis in the setting of MS, and bilateral SDH as elsewhere. Psychiatry consulted who recommended trazodone as first line for agitation, of note family is not comfortable with pt receiving zyprexa as second line. Reassuringly her mental status has improved to baseline. -Appreciate psych recs ---Trazodone 25mg Q6h PRN - Monitor for recurrence of infection as per #colitis - Optimize sleep/wake cycle --- Scheduled melatonin earlier for 6pm for improved effect. - Ensure regular BMs - Appreciate GEOLOGICAL ENGINEER following --- Advanced to regular diet, carb controlled. - Hold home adderall, amantadine, valium Assessment & Plan (04/09/2025 11:38 AM EDT): #TME (resolved) #Hepatic encephalopathy (resolved) #Delirium (resolved) Pt with hx CVA, PE (2019) as below as well as white matter lesions due to MS. Per maxx Bah, her baseline cognition is very good. This admission pt with AMS and somnolence found to be multifactorial in the setting of hospital acquired delirium, TME from colitis in the setting of MS, and bilateral SDH as elsewhere. Psychiatry consulted who recommended trazodone as first line for agitation, of note family is not comfortable with pt receiving zyprexa as second line. Reassuringly her mental status has improved to baseline. -Appreciate psych recs ---Trazodone 25mg Q6h PRN - Monitor for recurrence of infection as per #colitis - Optimize sleep/wake cycle --- Scheduled melatonin earlier for 6pm for improved effect. - Ensure regular BMs - Appreciate GEOLOGICAL ENGINEER following --- Advanced to regular diet, carb controlled. - Hold home modafinil, adderall, amantadine, valium Assessment & Plan (04/08/2025 1:48 PM EDT): #TME (resolved) #Hepatic encephalopathy (resolved) #Delirium (resolved) Pt with hx CVA, PE (2019) as below as well as white matter lesions due to MS. Per maxx Bah, her baseline cognition is very good. This admission pt with AMS and somnolence found to be multifactorial in the setting of hospital acquired delirium, TME from colitis in the setting of MS, and bilateral SDH as elsewhere. Psychiatry consulted who recommended trazodone as first line for agitation, of note family is not comfortable with pt receiving zyprexa as second line. Reassuringly her mental status has improved to baseline. -Appreciate psych recs ---Trazodone 25mg Q6h PRN - Monitor for recurrence of infection as per #colitis - Optimize sleep/wake cycle --- Scheduled melatonin earlier for 6pm for improved effect. - Ensure regular BMs - Appreciate GEOLOGICAL ENGINEER following --- Advanced to regular diet, carb controlled. - Hold home modafinil, adderall, amantadine, valium Assessment & Plan (04/07/2025 8:30 AM EDT): #TME (resolved) #Hepatic encephalopathy (resolved) #Delirium (resolved) Pt with hx CVA, PE (2019) as below as well as white matter lesions due to MS. Per maxx Bah, her baseline cognition is very good. She has help at home with laundry, cooking, but this is mostly due to physical disability. This admission pt with AMS and somnolence iso ARF and ALI as elsewhere. Had mild hyperammonemia (peak 97) so HE likely contributed as well. Additionally, she had colitis and hypernatremia that could have contributed to her AMS as her renal and liver function improved. It is possible that any improvement in mental status is lagging behind the corrections in toxic-metabolic derangements. Multiple CT heads (03/17, 03/21) negative, though mental status continued to deteriorate, repeat CTH 03/26 with interval development of SDH as above. Repeat ammonia level 23, and with downtrending LFTs, less likely related to ALI/HE. AMS is likely multifactorial in the setting of hospital acquired delirium, TME from colitis (which may take time to clear after the infection has been treated) in the setting of MS, and bilateral SDH. Psychiatry consulted who recommended trazodone as first line for agitation, of note family is not comfortable with pt receiving zyprexa as second line, though reassuringly her mental status has improved to baseline. -Appreciate psych recs ---Trazodone 25mg Q6h PRN - Monitor for recurrence of infection as per #colitis - Optimize sleep/wake cycle --- Scheduled melatonin earlier for 6pm for improved effect. - Ensure regular BMs - Appreciate GEOLOGICAL ENGINEER following --- Advanced to regular diet, carb controlled. - Hold home modafinil, adderall, amantadine, valium Assessment & Plan (04/06/2025 2:39 PM EDT): #TME (resolved) #Hepatic encephalopathy (resolved) #Delirium (resolved) Pt with hx CVA, PE (2019) as below as well as white matter lesions due to MS. Per son Olvin, her baseline cognition is very good. She has help at home with laundry, cooking, but this is mostly due to physical disability. This admission pt with AMS and somnolence iso ARF and ALI as elsewhere. Had mild hyperammonemia (peak 97) so HE likely contributed as well. Additionally, she had colitis and hypernatremia that could have contributed to her AMS as her renal and liver function improved. It is possible that any improvement in mental status is lagging behind the corrections in toxic-metabolic derangements. Multiple CT heads (03/17, 03/21) negative, though mental status continued to deteriorate, repeat CTH 03/26 with interval development of SDH as above. Repeat ammonia level 23, and with downtrending LFTs, less likely related to ALI/HE. AMS is likely multifactorial in the setting of hospital acquired delirium, TME from colitis (which may take time to clear after the infection has been treated) in the setting of MS, and bilateral SDH. Psychiatry consulted who recommended trazodone as first line for agitation, of note family is not comfortable with pt receiving zyprexa as second line, though reassuringly her mental status has improved to baseline. -Appreciate psych recs ---Trazodone 25mg Q6h PRN - Monitor for recurrence of infection as per #colitis - Optimize sleep/wake cycle --- Scheduled melatonin earlier for 6pm for improved effect. - Ensure regular BMs - Appreciate GEOLOGICAL ENGINEER following --- Advanced to regular diet, carb controlled. - Hold home modafinil, adderall, amantadine, valium Assessment & Plan (04/05/2025 1:43 PM EDT): #TME #Hepatic encephalopathy #Delirium Pt with hx CVA, PE (2019) as below as well as white matter lesions due to MS. Per son Olvin, her baseline cognition is very good. She has help at home with laundry, cooking, but this is mostly due to physical disability. This admission pt with AMS and somnolence iso ARF and ALI as elsewhere. Had mild hyperammonemia (peak 97) so HE likely contributed as well. Additionally, she had colitis and hypernatremia that could have contributed to her AMS as her renal and liver function improved. It is possible that any improvement in mental status is lagging behind the corrections in toxic-metabolic derangements. Multiple CT heads (03/17, 03/21) negative, though mental status continued to deteriorate, repeat CTH 03/26 with interval development of SDH as above. Repeat ammonia level 23, and with downtrending LFTs, less likely related to ALI/HE. AMS is likely multifactorial in the setting of hospital acquired delirium, TME from colitis (which may take time to clear after the infection has been treated) in the setting of MS, and bilateral SDH. Given ongoing delirium (improving) and continued agitation, consulted psych team for recommendations. - Monitor for recurrence of infection as per #colitis - consulted psych, appreciate recs - discussed with son who is not comfortable with pt receiving olanzapine for agitation given side effects. Pt has not required. Continue with trazodone prn. Olanzapine discontinued. - Optimize sleep/wake cycle --- Scheduled melatonin earlier for 6pm for improved effect. - Ensure regular BMs - Appreciate GEOLOGICAL ENGINEER following --- Advanced to regular diet, carb controlled. - Hold home modafinil, adderall, amantadine, valium Assessment & Plan (04/04/2025 5:43 PM EDT): #TME #Hepatic encephalopathy #Delirium Pt with hx CVA, PE (2019) as below as well as white matter lesions due to MS. Per son Olvin, her baseline cognition is very good. She has help at home with laundry, cooking, but this is mostly due to physical disability. This admission pt with AMS and somnolence iso ARF and ALI as elsewhere. Had mild hyperammonemia (peak 97) so HE likely contributed as well. Additionally, she had colitis and hypernatremia that could have contributed to her AMS as her renal and liver function improved. It is possible that any improvement in mental status is lagging behind the corrections in toxic-metabolic derangements. Multiple CT heads (03/17, 03/21) negative, though mental status continued to deteriorate, repeat CTH 03/26 with interval development of SDH as above. Repeat ammonia level 23, and with downtrending LFTs, less likely related to ALI/HE. AMS is likely multifactorial in the setting of hospital acquired delirium, TME from colitis (which may take time to clear after the infection has been treated) in the setting of MS, and bilateral SDH. Given ongoing delirium (improving) and continued agitation, consulted psych team for recommendations. - Monitor for recurrence of infection as per #colitis - consulted psych, appreciate recs - discussed with son who is not comfortable with pt receiving olanzapine for agitation given side effects. Pt has not required. Continue with trazodone prn. - Optimize sleep/wake cycle --- Scheduled melatonin earlier for 6pm for improved effect. - Ensure regular BMs - Appreciate GEOLOGICAL ENGINEER following --- Advanced to regular diet, carb controlled. - Hold home modafinil, adderall, amantadine, valium Assessment & Plan (04/03/2025 4:54 PM EDT): #TME #Hepatic encephalopathy #Delirium Pt with hx CVA, PE (2019) as below as well as white matter lesions due to MS. Per son Olvin, her baseline cognition is very good. She has help at home with laundry, cooking, but this is mostly due to physical disability. This admission pt with AMS and somnolence iso ARF and ALI as elsewhere. Had mild hyperammonemia (peak 97) so HE likely contributed as well. Additionally, she had colitis and hypernatremia that could have contributed to her AMS as her renal and liver function improved. It is possible that any improvement in mental status is lagging behind the corrections in toxic-metabolic derangements. Multiple CT heads (03/17, 03/21) negative, though mental status continued to deteriorate, repeat CTH 03/26 with interval development of SDH as above. Repeat ammonia level 23, and with downtrending LFTs, less likely related to ALI/HE. AMS is likely multifactorial in the setting of hospital acquired delirium, TME from colitis (which may take time to clear after the infection has been treated) in the setting of MS, and bilateral SDH. Given ongoing delirium (improving) and continued agitation, consulted psych team for recommendations. - Monitor for recurrence of infection as per #colitis - consulted psych, appreciate recs - discussed with son who is not comfortable with pt receiving olanzapine for agitation given side effects. Pt has not required. Continue with trazodone prn. - Optimize sleep/wake cycle --- Scheduled melatonin earlier for 6pm for improved effect. - Ensure regular BMs - Appreciate GEOLOGICAL ENGINEER following --- Dysphagia soft & bite sized + thin liquids with 1:1 feeding assistance. --- Aspiration precautions - Hold home modafinil, adderall, amantadine, valium Assessment & Plan (04/02/2025 5:28 PM EDT): #TME #Hepatic encephalopathy #Delirium Pt with hx CVA, PE (2019) as below as well as white matter lesions due to MS. Per maxx Bah, her baseline cognition is very good. She has help at home with laundry, cooking, but this is mostly due to physical disability. This admission pt with AMS and somnolence iso ARF and ALI as elsewhere. Had mild hyperammonemia (peak 97) so HE likely contributed as well. Additionally, she had colitis and hypernatremia that could have contributed to her AMS as her renal and liver function improved. It is possible that any improvement in mental status is lagging behind the corrections in toxic-metabolic derangements. Multiple CT heads (03/17, 03/21) negative, though mental status continued to deteriorate, repeat CTH 03/26 with interval development of SDH as above. Repeat ammonia level 23, and with downtrending LFTs, less likely related to ALI/HE. AMS is likely multifactorial in the setting of hospital acquired delirium, TME from colitis (which may take time to clear after the infection has been treated) in the setting of MS, and bilateral SDH. Given ongoing delirium (imrpoving) and agitation, will consult psych team for recommendations. - Monitor for recurrence of infection as per #colitis - consulted psych, appreciate recs - discussed with son who is not comfortable with pt receiving olanzapine for agitation given side effects. Pt has not required. Continue with trazodone prn. - Optimize sleep/wake cycle --- Scheduled melatonin earlier for 6pm for improved effect. - Ensure regular BMs - Appreciate GEOLOGICAL ENGINEER following --- Dysphagia soft & bite sized + thin liquids with 1:1 feeding assistance. --- Aspiration precautions - Hold home modafinil, adderall, amantadine, valium Assessment & Plan (04/01/2025 1:44 PM EDT): #TME #Hepatic encephalopathy #Delirium Pt with hx CVA, PE (2019) as below as well as white matter lesions due to MS. Per son Olvin, her baseline cognition is very good. She has help at home with laundry, cooking, but this is mostly due to physical disability. This admission pt with AMS and somnolence iso ARF and ALI as elsewhere. Had mild hyperammonemia (peak 97) so HE likely contributed as well. Additionally, she had colitis and hypernatremia that could have contributed to her AMS as her renal and liver function improved. It is possible that any improvement in mental status is lagging behind the corrections in toxic-metabolic derangements. Multiple CT heads (03/17, 03/21) negative, though mental status continued to deteriorate, repeat CTH 03/26 with interval development of SDH as above. Repeat ammonia level 23, and with downtrending LFTs, less likely related to ALI/HE. AMS is likely multifactorial in the setting of hospital acquired delirium, TME from colitis (which may take time to clear after the infection has been treated) in the setting of MS, and bilateral SDH. Given ongoing delirium (imrpoving) and agitation, will consult psych team for recommendations. - Monitor for recurrence of infection as per #colitis - consulted psych, appreciate recs - Optimize sleep/wake cycle --- Schedule melatonin earlier - Ensure regular BMs - Appreciate GEOLOGICAL ENGINEER following --- Dysphagia soft & bite sized + thin liquids with 1:1 feeding assistance. --- Aspiration precautions - Hold home modafinil, adderall, amantadine, valium Assessment & Plan (03/31/2025 7:38 AM EDT): #TME #Hepatic encephalopathy #Delirium Pt with hx CVA, PE (2019) as below as well as white matter lesions due to MS. Per son Olvin, her baseline cognition is very good. She has help at home with laundry, cooking, but this is mostly due to physical disability. This admission pt with AMS and somnolence iso ARF and ALI as elsewhere. Had mild hyperammonemia (peak 97) so HE likely contributed as well. Additionally, she had colitis and hypernatremia that could have contributed to her AMS as her renal and liver function improved. It is possible that any improvement in mental status is lagging behind the corrections in toxic-metabolic derangements. Multiple CT heads (03/17, 03/21) negative, though mental status continued to deteriorate, repeat CTH 03/26 with interval development of SDH as above. Repeat ammonia level 23, and with downtrending LFTs, less likely related to ALI/HE. AMS is likely multifactorial in the setting of hospital acquired delirium, TME from colitis (which may take time to clear after the infection has been treated) in the setting of MS, and bilateral SDH. - Monitor for recurrence of infection as per #colitis - Optimize sleep/wake cycle --- Schedule melatonin earlier --- Belsomra 5mg nightly PRN - Ensure regular BMs - Appreciate GEOLOGICAL ENGINEER following --- Dysphagia soft & bite sized + thin liquids with 1:1 feeding assistance. --- Aspiration precautions - Hold home modafinil, adderall, amantadine, valium Assessment & Plan (03/30/2025 7:04 AM EDT): #TME #Hepatic encephalopathy #Delirium Pt with hx CVA, PE (2019) as below as well as white matter lesions due to MS. Per maxx Bah, her baseline cognition is very good. She has help at home with laundry, cooking, but this is mostly due to physical disability. This admission pt with AMS and somnolence iso ARF and ALI as elsewhere. Had mild hyperammonemia (peak 97) so HE likely contributed as well. Additionally, she had colitis and hypernatremia that could have contributed to her AMS as her renal and liver function improved. It is possible that any improvement in mental status is lagging behind the corrections in toxic-metabolic derangements. Multiple CT heads (03/17, 03/21) negative, though mental status continued to deteriorate, repeat CTH 03/26 with interval development of SDH as above. Repeat ammonia level 23, and with downtrending LFTs, less likely related to ALI/HE. AMS is likely multifactorial in the setting of hospital acquired delirium, TME from colitis (which may take time to clear after the infection has been treated) in the setting of MS, and bilateral SDH. - Monitor for recurrence of infection as per #colitis - Optimize sleep/wake cycle --- Schedule melatonin earlier --- Belsomra 5mg nightly PRN - Ensure regular BMs - Appreciate GEOLOGICAL ENGINEER following --- Dysphagia soft & bite sized + thin liquids with 1:1 feeding assistance. --- Aspiration precautions - Hold home modafinil, adderall, amantadine, valium Assessment & Plan (03/29/2025 8:15 AM EDT): #TME #Hepatic encephalopathy #Delirium Pt with hx CVA, PE (2019) as below as well as white matter lesions due to MS. Per maxx Bah, her baseline cognition is very good. She has help at home with laundry, cooking, but this is mostly due to physical disability. This admission pt with AMS and somnolence iso ARF and ALI as elsewhere. Had mild hyperammonemia (peak 97) so HE likely contributed as well. Additionally, she had colitis and hypernatremia that could have contributed to her AMS as her renal and liver function improved. It is possible that any improvement in mental status is lagging behind the corrections in toxic-metabolic derangements. Multiple CT heads (03/17, 03/21) negative, though mental status continued to deteriorate, repeat CTH 03/26 with interval development of SDH as above. Repeat ammonia level 23, and with downtrending LFTs, less likely related to ALI/HE. AMS is likely multifactorial in the setting of hospital acquired delirium, TME from colitis (which may take time to clear after the infection has been treated) in the setting of MS, and bilateral SDH. - Monitor for recurrence of infection as per #colitis - Optimize sleep/wake cycle --- Schedule melatonin earlier --- Belsomra 5mg nightly PRN - Ensure regular BMs - Appreciate GEOLOGICAL ENGINEER following --- Dysphagia soft & bite sized + thin liquids with 1:1 feeding assistance. --- Aspiration precautions - Hold home modafinil, adderall, amantadine, valium Assessment & Plan (03/28/2025 6:38 PM EDT): #TME #Hepatic encephalopathy #Delirium Pt with hx CVA, PE (2019) as below as well as white matter lesions due to MS. Per son Olvin, her baseline cognition is very good. She has help at home with laundry, cooking, but this is mostly due to physical disability. This admission pt with AMS and somnolence iso ARF and ALI as elsewhere. Had mild hyperammonemia (peak 97) so HE likely contributed as well. Additionally, she had colitis and hypernatremia that could have contributed to her AMS as her renal and liver function improved. It is possible that any improvement in mental status is lagging behind the corrections in toxic-metabolic derangements. Multiple CT heads (03/17, 03/21) negative, though mental status continued to deteriorate, repeat CTH 03/26 with interval development of SDH as above. Repeat ammonia level 23, and with downtrending LFTs, less likely related to ALI/HE. AMS is likely multifactorial in the setting of hospital acquired delirium, TME from colitis (which may take time to clear after the infection has been treated) in the setting of MS, and bilateral SDH. - Monitor for recurrence of infection as per #colitis - Optimize sleep/wake cycle --- Schedule melatonin earlier --- Belsomra 5mg nightly PRN - Ensure regular BMs - Appreciate GEOLOGICAL ENGINEER following --- Dysphagia soft & bite sized + thin liquids with 1:1 feeding assistance. --- Aspiration precautions - Hold home modafinil, adderall, amantadine, valium Assessment & Plan (03/27/2025 6:39 PM EDT): #TME #Hepatic encephalopathy #Aspiration risk Pt with hx CVA, PE (2019) as below as well as white matter lesions due to MS. Per son Olvin, her baseline cognition is very good. She has help at home with laundry, cooking, but this is mostly due to physical disability. This admission pt with AMS and somnolence iso ARF and ALI as elsewhere. Had mild hyperammonemia (peak 97) so HE likely contributed as well. Additionally, she had colitis and hypernatremia that could have contributed to her AMS as her renal and liver function improved. It is possible that any improvement in mental status is lagging behind the corrections in toxic-metabolic derangements. Multiple CT heads (03/17, 03/21) negative, though mental status seemingly continued to deteriorate. Repeat ammonia level 23. - For agitation: - PO trazodone 25mg (1st line; 12.5mg was ineffective) - IV zyprexa 2.5-5mg (2nd line or refusing PO) - Continue rifaximin 550mg BID - Appreciate GEOLOGICAL ENGINEER following - dysphagia soft & bite sized + thin liquids with aspiration precautions and 1:1 feeding assistance. - Liquid diet for bowel rest in setting of colitis. As able, resume dysphagia soft & bite-sized solids + thin liquids with aspiration precautions and 1:1 assistance with feeding. - Hold home modafinil, adderall, amantadine, valium for now Assessment & Plan (03/26/2025 6:37 PM EDT): #Bilateral SDH #TME #Hepatic encephalopathy #Aspiration risk Pt with hx CVA, PE (2019) as below as well as white matter lesions due to MS. Per son Olvin, her baseline cognition is very good. She has help at home with laundry, cooking, but this is mostly due to physical disability. This admission pt with AMS and somnolence iso ARF and ALI as elsewhere. Had mild hyperammonemia (peak 97) so HE likely contributed as well. Additionally, she had colitis and hypernatremia that could have contributed to her AMS as her renal and liver function improved. It is possible that any improvement in mental status is lagging behind the corrections in toxic-metabolic derangements. Multiple CT heads (03/17, 03/21) negative, though mental status seemingly continued to deteriorate. Repeat CT head done today 03/26 with new b/l SDH. Neuro exam nonfocal. Speech nonsensical, though orientation waxes and wanes. Neurosurgery and Neurology consulted. Will get repeat CT head. C/s: - Appreciate Neurology recs - Appreciate Neurosurgery recs Dx: - CTM mental status - Repeat NTCTH - Vitamin K 10 mg IV x3 (goal INR <1.4) - F/u ammonia Tx: - Keep HOB >30 degrees - Goal SBP <160 - Start Keppra 500 mg BID x7 days - For agitation: - PO trazodone 25mg (1st line; 12.5mg was ineffective) - IV zyprexa 2.5-5mg (2nd line or refusing PO) - Continue rifaximin 550mg BID - Appreciate GEOLOGICAL ENGINEER following - dysphagia soft & bite sized + thin liquids with aspiration precautions and 1:1 feeding assistance. - Liquid diet for bowel rest in setting of colitis. As able, resume dysphagia soft & bite-sized solids + thin liquids with aspiration precautions and 1:1 assistance with feeding. - Hold home modafinil, adderall, amantadine, valium for now - Hold hep gtt Assessment & Plan (03/25/2025 12:00 PM EDT): # Aspiration risk Pt with hx # CVA iso # PE as below as well as white matter lesions ISO # MS. Per son Olvin, her baseline cognition is very good. She has help at home with laundry, cooking, but this is mostly due to physical disability. This admission pt with AMS and somnolence iso # ARF and # ALI as above. Multiple CT heads (03/17, 03/21) negative. Had mild hyperammonemia (peak 97) so HE likely contributed as well as uremia and overall critical illness in a poor substrate. Now with additional insult of #colitis and #hypernatremia. With improvement in renal and liver function her mental status has improved though still not back to baseline. GEOLOGICAL ENGINEER evaluated and cleared her for dysphagia soft & bite sized + thin liquids with aspiration precautions and 1:1 feeding assistance. - CTM mental status - For agitation: --- PO trazodone 25mg (1st line; 12.5mg was ineffective) --- IV zyprexa 2.5-5mg (2nd line or refusing PO) - Continue rifaximin 550mg BID - Holding home modafinil, adderall, amantadine, valium for now - Appreciate GEOLOGICAL ENGINEER following - Liquid diet for bowel rest in setting of colitis. As able, resume dysphagia soft & bite-sized solids + thin liquids with aspiration precautions and 1:1 assistance with feeding. Assessment & Plan (03/24/2025 4:37 PM EDT): # Aspiration risk Pt with hx # CVA iso # PE as below as well as white matter lesions ISO # MS. Per son Olvin, her baseline cognition is very good. She has help at home with laundry, cooking, but this is mostly due to physical disability. This admission pt with AMS and somnolence iso # ARF and # ALI as above. Multiple CT heads (03/17, 03/21) negative. Had mild hyperammonemia (peak 97) so HE likely contributed as well as uremia and overall critical illness in a poor substrate. Now with additional insult of #colitis and #hypernatremia. With improvement in renal and liver function her mental status has improved though still not back to baseline. GEOLOGICAL ENGINEER evaluated and cleared her for dysphagia soft & bite sized + thin liquids with aspiration precautions and 1:1 feeding assistance. - CTM mental status - For agitation: --- PO trazodone 25mg (1st line; 12.5mg ineffective) --- IV zyprexa 2.5-5mg (2nd line or refusing PO) - Continue rifaximin 550mg BID - Continue home modafinil 100mg BID; holding home adderall, amantadine, valium for now - Appreciate GEOLOGICAL ENGINEER following - CLD for bowel rest in setting of colitis. As able, resume dysphagia soft & bite-sized solids + thin liquids with aspiration precautions and 1:1 assistance with feeding. Assessment & Plan (03/23/2025 2:31 PM EDT): # Aspiration risk Pt with hx # CVA iso # PE as below as well as white matter lesions ISO # MS. Per maxx Bah, her baseline cognition is very good. She has help at home with laundry, cooking, but this is mostly due to physical disability. This admission pt with AMS and somnolence iso # ARF and # ALI as above. Multiple CT heads (03/17, 03/21) negative. Had mild hyperammonemia (peak 97) so HE likely contributed as well as uremia and overall critical illness in a poor substrate. Now with additional insult of #colitis and #hypernatremia. With improvement in renal and liver function her mental status has improved though still not back to baseline. GEOLOGICAL ENGINEER evaluated and cleared her for dysphagia soft & bite sized + thin liquids with aspiration precautions and 1:1 feeding assistance. - CTM mental status - For agitation: --- PO trazodone 25mg (1st line; 12.5mg ineffective) --- IV zyprexa 2.5-5mg (2nd line or refusing PO) - Continue rifaximin 550mg BID - Continue home modafinil 100mg BID; holding home adderall, amantadine, valium for now - Appreciate GEOLOGICAL ENGINEER following - NPO for bowel rest in setting of colitis. When able to resume POs, resume dysphagia soft & bite-sized solids + thin liquids with aspiration precautions and 1:1 assistance with feeding. Assessment & Plan (03/22/2025 2:00 PM EDT): # Aspiration risk Pt with hx # CVA iso # PE as below as well as white matter lesions ISO # MS. Per maxx Bah, her baseline cognition is very good. She has help at home with laundry, cooking, but this is mostly due to physical disability. This admission pt with AMS and somnolence iso # ARF and # ALI as above. Multiple CT heads (03/17, 03/21) negative. Had mild hyperammonemia (peak 97) so HE likely contributed as well as uremia and overall critical illness in a poor substrate. Now with additional insult of #colitis. With improvement in renal and liver function her mental status has improved though still not back to baseline. GEOLOGICAL ENGINEER evaluated and cleared her for dysphagia soft & bite sized + thin liquids with aspiration precautions and 1:1 feeding assistance. - CTM mental status - Continue lactulose 20g TID + rifaximin 550mg BID - Continue home modafinil 100mg BID; holding home adderall, amantadine, valium for now - Appreciate GEOLOGICAL ENGINEER following - NPO for bowel rest in setting of colitis. When able to resume POs, resume dysphagia soft & bite-sized solids + thin liquids with aspiration precautions and 1:1 assistance with feeding. Assessment & Plan (03/21/2025 10:17 AM EDT): # Aspiration risk Pt with hx # CVA iso # PE as below as well as white matter lesions iso # MS but per son Olvin her baseline cognition is very good. She has help at home with laundry, cooking, but this is mostly due to physical disability. This admission pt with AMS and somnolence iso # ARF and # ALI as above. CTH negative. Had mild hyperammonemia (peak 97) so HE likely contributed as well as uremia and overall critical illness in a poor substrate. With improvement in renal and liver function her mental status has improved tho still not back to baseline. NPO except meds on transfer to the floor 03/20. Seen by GEOLOGICAL ENGINEER who noted no swallowing issues with main limitation related to delirium; cleared her for dysphagia soft & bite sized + thin liquids with aspiration precautions and 1:1 feeding assistance. Tolerating thus far. - CTM mental status - Continue lactulose 20g TID + rifaximin 550mg BID - Continue home modafinil 100mg BID; holding home adderall, amantadine, valium for now - Appreciate GEOLOGICAL ENGINEER following; cont dysphagia soft & bite-sized solids + thin liquids with aspiration precautions and 1:1 assistance with feeding Assessment & Plan (03/20/2025 2:00 PM EDT): Pt with hx # CVA iso # PE as below as well as white matter lesions iso # MS but per son Olvin her baseline cognition is very good. She has help at home with laundry, cooking, but this is mostly due to physical disability. This admission pt with AMS and somnolence iso # ARF and # ALI as above. CTH negative. Had mild hyperammonemia (peak 97) so HE likely contributed as well as uremia and overall critical illness in a poor substrate. With improvement in renal and liver function her mental status has improved tho still not back to baseline. NPO except meds on transfer to the floor 03/20. - CTM mental status - Continue lactulose 20g TID + rifaximin 550mg BID - Continue home modafinil 100mg BID; holding home adderall, amantadine, valium for now - Seen by GEOLOGICAL ENGINEER 03/20: swallow is OK but delirium is major risk factor for aspiration; cleared for dysphagia soft & bite-sized solids + thin liquids with aspiration precautions and 1:1 assistance with feeding Assessment & Plan (03/20/2025 3:53 AM EDT): Patient with altered mental status but some signs of somnolence. She was confused but able to follow commands. Ammonia peaked at 97, started on lactulose initially but was unable to take due to lack of enteral access. Given concern for cerebral edema in acute liver failure, head CT was performed which was negative. Appears to be improving. - continue lactulose 20g TID if able to tolerate - continue modafinil 100 mg BID Nonrheumatic tricuspid valve regurgitation 03/20 Assessment & Plan (04/14/2025 1:16 PM EST): # HFpEF # CAD c/b STEMI in 2012 s/p ERNST to LAD # HTN # Severe MR, TR Patient presents with significant volume overload and markedly elevated NT- proBNP (>22,000). Has a long-standing history of dyspnea, followed by cardiology at [facility]. Work-up had been relatively negative, including PFTs, CPET and right heart catheterization. Most recent stress test for chest discomfort and dyspnea last year without evidence of ischemia. Initial TTE showed preserved EF (65%) but new RV dilation, severe tricuspid regurgitation (TR), and elevated RVSP (39 mmHg), all worsening compared to prior studies. Troponin was elevated (190s) but adynamic, likely secondary to demand ischemia from hypervolemia and RV strain. Cardiology was consulted. Repeat TTE showed progression of mitral regurgitation to moderate-severe, persistent severe TR, definitive pulmonary hypertension, and reduced EF (57%). Right and Left heart cath notable for elevated PCWP and v waves though no obstructive coronary disease. Was diuresed with IV lasix, then transitioned to home spironolactone and oral torsemide to maintain TBB even to slightly negative. Home diuretics held briefly d/t elevated Cr, now resuming as at renal baseline. - Trend daily standing weights - Trend I/O: goal euvolemic to slightly negative - Monitor and replete electrolytes to maintain goal Mg > 2.2, K > 4 - GDMT ---MRA: spironolactone 25 mg daily ---Would benefit from SGLT2-I, though will defer at this time. Jardiance copay $0 sent 03/30 SGLT2i iso UTI - Hold statin as LFTs normalize, consider starting low dose rosuvastatin - Hold ASA while on apixaban given SDH - HOLD amlodipine iso soft BPs - HOLD home clonidine given bradycardia and junctional rhythm - Hold Torsemide 40 mg daily, consider dosing in PM pending BP and HR as discussed elsewhere - Received Venofer 300 mg x2 doses, 3rd dose held in the setting of active infection --- Repeat iron studies in 2-3 months Assessment & Plan (04/13/2025 4:34 PM EST): # HFpEF # CAD c/b STEMI in 2013 s/p ERNST to LAD # HTN # Severe MR, TR Patient presents with significant volume overload and markedly elevated NT- proBNP (>22,000). Has a long-standing history of dyspnea, followed by cardiology at [facility]. Work-up had been relatively negative, including PFTs, CPET and right heart catheterization. Most recent stress test for chest discomfort and dyspnea last year without evidence of ischemia. Initial TTE showed preserved EF (65%) but new RV dilation, severe tricuspid regurgitation (TR), and elevated RVSP (39 mmHg), all worsening compared to prior studies. Troponin was elevated (190s) but adynamic, likely secondary to demand ischemia from hypervolemia and RV strain. Cardiology was consulted. Repeat TTE showed progression of mitral regurgitation to moderate-severe, persistent severe TR, definitive pulmonary hypertension, and reduced EF (57%). Right and Left heart cath notable for elevated PCWP and v waves though no obstructive coronary disease. Was diuresed with IV lasix, then transitioned to home spironolactone and oral torsemide to maintain TBB even to slightly negative. Home diuretics held briefly d/t elevated Cr, now resuming as at renal baseline. - Trend daily standing weights - Trend I/O: goal euvolemic to slightly negative - Monitor and replete electrolytes to maintain goal Mg > 2.2, K > 4 - GDMT ---MRA: spironolactone 25 mg daily ---Would benefit from SGLT2-I, though will defer at this time. Jardiance copay $0 sent 03/30 SGLT2i iso UTI - Hold statin as LFTs normalize, consider starting low dose rosuvastatin - Hold ASA while on apixaban given SDH - HOLD amlodipine iso soft BPs - HOLD home clonidine given bradycardia and junctional rhythm - Resume Torsemide 40 mg daily - Received Venofer 300 mg x2 doses, 3rd dose held in the setting of active infection --- Repeat iron studies in 2-3 months Assessment & Plan (04/12/2025 3:48 PM EST): # HFpEF # CAD c/b STEMI in 2013 s/p ERNST to LAD # HTN # Severe MR, TR Patient presents with significant volume overload and markedly elevated NT- proBNP (>22,000). Has a long-standing history of dyspnea, followed by cardiology at [facility]. Work-up had been relatively negative, including PFTs, CPET and right heart catheterization. Most recent stress test for chest discomfort and dyspnea last year without evidence of ischemia. Initial TTE showed preserved EF (65%) but new RV dilation, severe tricuspid regurgitation (TR), and elevated RVSP (39 mmHg), all worsening compared to prior studies. Troponin was elevated (190s) but adynamic, likely secondary to demand ischemia from hypervolemia and RV strain. Cardiology was consulted. Repeat TTE showed progression of mitral regurgitation to moderate-severe, persistent severe TR, definitive pulmonary hypertension, and reduced EF (57%). Right and Left heart cath notable for elevated PCWP and v waves though no obstructive coronary disease. Was diuresed with IV lasix, now transitioned or home spironolactone and oral torsemide to maintain TBB even to slightly negative. Dx: - Trend daily standing weights - Trend I/O: goal euvolemic to slightly negative - Monitor and replete electrolytes to maintain goal Mg > 2.2, K > 4 Tx: - GDMT ---MRA: spironolactone 25 mg daily - holding iso SANDRA ---Would benefit from SGLT2-I, though will defer at this time. Jardiance copay $0 sent 03/30 SGLT2i iso UTI - Hold statin as LFTs normalize, consider starting low dose rosuvastatin - Hold ASA while on apixaban given SDH - HOLD amlodipine iso soft BPs - HOLD home clonidine given bradycardia and junctional rhythm - Hold Torsemide 40 mg daily iso SANDRA, resume pending volume status/creatinine trend - Received Venofer 300 mg x2 doses, 3rd dose held in the setting of active infection --- Repeat iron studies in 2-3 months Assessment & Plan (04/11/2025 6:03 PM EST): # HFpEF # CAD c/b STEMI in 2012 s/p ERNST to LAD # HTN # Severe MR, TR Patient presents with significant volume overload and markedly elevated NT- proBNP (>22,000). Has a long-standing history of dyspnea, followed by cardiology at [facility]. Work-up had been relatively negative, including PFTs, CPET and right heart catheterization. Most recent stress test for chest discomfort and dyspnea last year without evidence of ischemia. Initial TTE showed preserved EF (65%) but new RV dilation, severe tricuspid regurgitation (TR), and elevated RVSP (39 mmHg), all worsening compared to prior studies. Troponin was elevated (190s) but adynamic, likely secondary to demand ischemia from hypervolemia and RV strain. Cardiology was consulted. Repeat TTE showed progression of mitral regurgitation to moderate-severe, persistent severe TR, definitive pulmonary hypertension, and reduced EF (57%). Right and Left heart cath notable for elevated PCWP and v waves though no obstructive coronary disease. Was diuresed with IV lasix, now transitioned or home spironolactone and oral torsemide to maintain TBB even to slightly negative. Dx: - Trend daily standing weights - Trend I/O: goal euvolemic to slightly negative - Monitor and replete electrolytes to maintain goal Mg > 2.2, K > 4 Tx: - GDMT ---MRA: spironolactone 25 mg daily - holding iso SANDRA ---Would benefit from SGLT2-I, though will defer at this time. Jardiance copay $0 sent 03/30 SGLT2i iso UTI - Hold statin as LFTs normalize, consider starting low dose rosuvastatin - Hold ASA while on apixaban given SDH - HOLD amlodipine iso soft BPs - HOLD home clonidine given bradycardia and junctional rhythm - Hold Torsemide 40 mg daily iso SANDRA, resume pending volume status/creatinine trend - Venofer 300 mg 3X weekly for 3 doses, repeat iron studies in 2-3 months Assessment & Plan (04/10/2025 4:46 PM EST): # HFpEF # CAD c/b STEMI in 2012 s/p ERNST to LAD # HTN # Severe MR, TR Patient presents with significant volume overload and markedly elevated NT- proBNP (>22,000). Has a long-standing history of dyspnea, followed by cardiology at [facility]. Work-up had been relatively negative, including PFTs, CPET and right heart catheterization. Most recent stress test for chest discomfort and dyspnea last year without evidence of ischemia. Initial TTE showed preserved EF (65%) but new RV dilation, severe tricuspid regurgitation (TR), and elevated RVSP (39 mmHg), all worsening compared to prior studies. Troponin was elevated (190s) but adynamic, likely secondary to demand ischemia from hypervolemia and RV strain. Cardiology was consulted. Repeat TTE showed progression of mitral regurgitation to moderate-severe, persistent severe TR, definitive pulmonary hypertension, and reduced EF (57%). Right and Left heart cath notable for elevated PCWP and v waves though no obstructive coronary disease. Was diuresed with IV lasix, now transitioned or home spironolactone and oral torsemide to maintain TBB even to slightly negative. Dx: - Trend daily standing weights - Trend I/O: goal euvolemic to slightly negative - Monitor and replete electrolytes to maintain goal Mg > 2.2, K > 4 Tx: - GDMT ---MRA: spironolactone 25 mg daily ---Would benefit from SGLT2-I, though will defer at this time. Jardiance copay $0 sent 03/30 SGLT2i iso UTI - Hold statin as LFTs normalize, consider starting low dose rosuvastatin - Hold ASA while on apixaban given SDH - HOLD amlodipine iso soft BPs - HOLD home clonidine given bradycardia and junctional rhythm -Torsemide 40 mg daily - Venofer 300 mg 3X weekly for 3 doses, repeat iron studies in 2-3 months Assessment & Plan (04/09/2025 1:07 PM EDT): #HFpEF #CAD c/b STEMI in 2013 s/p ERNST to LAD #HTN #Severe MR, TR Patient presents with significant volume overload and markedly elevated NT- proBNP (>22,000). Has a long-standing history of dyspnea, followed by cardiology at [facility]. Work-up had been relatively negative, including PFTs, CPET and right heart catheterization. Most recent stress test for chest discomfort and dyspnea last year without evidence of ischemia. Initial TTE showed preserved EF (65%) but new RV dilation, severe tricuspid regurgitation (TR), and elevated RVSP (39 mmHg), all worsening compared to prior studies. Troponin was elevated (190s) but adynamic, likely secondary to demand ischemia from hypervolemia and RV strain. Cardiology was consulted. Repeat TTE showed progression of mitral regurgitation to moderate-severe, persistent severe TR, definitive pulmonary hypertension, and reduced EF (57%). Right and Left heart cath notable for elevated PCWP and v waves though no obstructive coronary disease. Was diuresed with IV lasix, now transitioned or home spironolactone and oral torsemide to maintain TBB even to slightly negative. Dx: -Trend daily standing weights -Trend I/O: goal euvolemic to slightly negative - monitor and replete electrolytes to maintain Mg++>2.2, K+>4 Tx: -GDMT -----MRA: spironolactone 25 mg daily ----Would benefit from SGLT2-I, though will defer at this time. Jardiance copay $0 sent 03/30 SGLT2i iso UTI - Hold statin as LFTs normalize, consider starting low dose rosuvastatin - Hold ASA while on apixaban given SDH - HOLD amlodipine iso soft BPs - HOLD home clonidine given bradycardia and junctional rhythm -Torsemide 40 mg daily -Venofer 300 mg 3X weekly for 3 doses, repeat iron studies in 2-3 months Assessment & Plan (04/08/2025 1:48 PM EDT): #HFpEF #CAD c/b STEMI in 2013 s/p ERNST to LAD #HTN #Severe MR, TR Patient presents with significant volume overload and markedly elevated NT- proBNP (>22,000). Has a long-standing history of dyspnea, followed by cardiology at [facility]. Work-up had been relatively negative, including PFTs, CPET and right heart catheterization. Most recent stress test for chest discomfort and dyspnea last year without evidence of ischemia. Initial TTE showed preserved EF (65%) but new RV dilation, severe tricuspid regurgitation (TR), and elevated RVSP (39 mmHg), all worsening compared to prior studies. Troponin was elevated (190s) but adynamic, likely secondary to demand ischemia from hypervolemia and RV strain. Cardiology was consulted. Repeat TTE showed progression of mitral regurgitation to moderate-severe, persistent severe TR, definitive pulmonary hypertension, and reduced EF (57%). Right and Left heart cath notable for elevated PCWP and v waves though no obstructive coronary disease. Was diuresed with IV lasix, now transitioned or home spironolactone and oral torsemide to maintain TBB even to slightly negative. Dx: -Trend daily standing weights -Trend I/O: goal euvolemic to slightly negative - monitor and replete electrolytes to maintain Mg++>2.2, K+>4 Tx: -GDMT -----MRA: spironolactone 25 mg daily ----Would benefit from SGLT2-I, though will defer at this time. Jardiance copay $0 sent 03/30 SGLT2i iso UTI -Hold statin as LFTs normalize, consider starting low dose rosuvastatin when normalized -Hold ASA while on apixaban given SDH - HOLD amlodipine iso soft BPs - HOLD home clonidine given bradycardia and junctional rhythm - HOLD home ASA iso SDH -Torsemide 40 mg daily -Venofer 300 mg 3X weekly for 3 doses, repeat iron studies in 2-3 months Assessment & Plan (04/07/2025 4:02 PM EDT): #HFpEF #CAD c/b STEMI in 2013 s/p ERNST to LAD #HTN #Severe MR, TR Patient presents with significant volume overload and markedly elevated NT- proBNP (>22,000). Has a long-standing history of dyspnea, followed by cardiology at [facility]. Work-up had been relatively negative, including PFTs, CPET and right heart catheterization. Most recent stress test for chest discomfort and dyspnea last year without evidence of ischemia. Initial TTE showed preserved EF (65%) but new RV dilation, severe tricuspid regurgitation (TR), and elevated RVSP (39 mmHg), all worsening compared to prior studies. Troponin was elevated (190s) but adynamic, likely secondary to demand ischemia from hypervolemia and RV strain. Cardiology was consulted. Repeat TTE showed progression of mitral regurgitation to moderate-severe, persistent severe TR, definitive pulmonary hypertension, and reduced EF (57%). Right and Left heart cath notable for elevated PCWP and v waves though no obstructive coronary disease. Was intermittently diuresed with IV lasix, now transitioned or home spironolactone and oral torsemide to maintain TBB even to slightly negative. Dx: -Trend daily standing weights -Trend I/O: goal euvolemic to slightly negative - monitor and replete electrolytes to maintain Mg++>2.2, K+>4 Tx: -GDMT -----MRA: spironolactone 25 mg daily ----Would benefit from SGLT2-I, though will defer at this time. Jardiance copay $0 sent 03/30 SGLT2i iso UTI -Hold statin as LFTs normalize, consider starting low dose rosuvastatin when normalized -Hold ASA while on apixaban given SDH - HOLD amlodipine iso soft BPs - HOLD home clonidine given bradycardia and junctional rhythm - HOLD home ASA iso SDH -Torsemide 40 mg daily -Venofer 300 mg 3X weekly for 3 doses, repeat iron studies in 2-3 months Assessment & Plan (04/06/2025 2:39 PM EDT): #HFpEF #CAD c/b STEMI in 2012 s/p ERNST to LAD #HTN Patient presents with significant volume overload and markedly elevated NT- proBNP (>22,000). patient has a long-standing history of dyspnea, followed by cardiology at [facility]. Work-up had been relatively negative, including PFTs, CPET and right heart catheterization. Most recent stress test for chest discomfort and dyspnea last year without evidence of ischemia. Initial TTE showed preserved EF (65%) but new RV dilation, severe tricuspid regurgitation (TR), and elevated RVSP (39 mmHg), all worsening compared to prior studies. Troponin was elevated (190s) but adynamic, likely secondary to demand ischemia from hypervolemia and RV strain. Cardiology was consulted. Repeat TTE showed progression of mitral regurgitation to moderate-severe, persistent severe TR, definitive pulmonary hypertension, and reduced EF (57%). Right and Left heart cath notable for elevated PCWP and v waves though no obstructive coronary disease. Was intermittently diuresed with IV lasix, now transitioned or home spironolactone and intermittent oral torsemide to maintain TBB even to slightly negative. Dx: -Trend daily standing weights -Trend I/O: goal euvolemic to slightly negative - monitor and replete electrolytes to maintain Mg++>2.2, K+>4 Tx: -GDMT -----MRA: spironolactone 25 mg daily ----Would benefit from SGLT2-I, though will defer at this time. Jardiance copay $0 sent 03/30 SGLT2i iso UTI -Hold statin as LFTs normalize, consider starting low dose rosuvastatin when normalized -Hold ASA while on apixaban given SDH - HOLD amlodipine iso soft BPs - HOLD home clonidine given bradycardia and junctional rhythm - HOLD home ASA -Consider IV iron when infectious concerns resolved Pt went for RHC 04/05. - EP following for rhythm management (now signed off) ---Continue diltiazem to 45mg Q6H (can uptitrate as needed to reduce HR while mindful of BP effects) ---EP study outpatient Assessment & Plan (04/05/2025 1:43 PM EDT): #Volume overload #CAD c/b STEMI in 2013 s/p ERNST to LAD #HTN Patient presents with significant volume overload and markedly elevated NT- proBNP (>22,000). Initial TTE showed preserved EF (65%) but new RV dilation, severe tricuspid regurgitation (TR), and elevated RVSP (39 mmHg), all worsening compared to prior studies. Troponin was elevated (190s) but adynamic, likely secondary to demand ischemia from hypervolemia and RV strain. There is concern for worsening valvular disease contributing to acute liver failure and acute renal failure due to congestive pathology, though primary hepatic injury leading to TR/RV strain and subsequent cardiorenal syndrome is also considered. Cardiology was consulted. Lipid panel was normal. Patient received IV diuresis. Repeat TTE showed progression of mitral regurgitation to moderate-severe, persistent severe TR, definitive pulmonary hypertension, and reduced EF (57%). 03/30 pt c/o chest pain with onset of HR sustained 150c. BP remained stable. EKG showed SVT (baseline junctional). Chest pain resolved with metoprolol, but tachycardia persisted. Gave adenosine, amio 150mg bolus, and diltiazem. Cardiology considered cardioversion, but deferred in setting of limited ability to received anticoagulation in setting of SDH. Suspect atrial tachycardia verses flutter (less likely fib), which improves temporarily after receiving gianni blockade with gradual return to tachycardia. We suspect this patient has tachybrady syndrome. EP team consulted. Overall strategy will be to manage SVT with diltiazem as she has been responsive to it while pursuing RHC and coronary angiogram, with likely pacemaker pending w/u and course. Pt went for RHC 04/05. - EP following for rhythm management (now signed off) ---Continue diltiazem to 45mg Q6H (can uptitrate as needed to reduce HR while mindful of BP effects) ---EP study outpatient - Cardiology following, appreciate recs --- Continue home spironolactone 25mg. --- Hold diuresis today given euvolemic on exam. --- Plan for RHC and coronary angiogram 04/05. --- Goal euvolemic --- would benefit from SGLT2-I, though will defer at this time. Jardiance copay $0 sent 03/30 - Standing weights as able - Strict Is/Os - monitor and replete electrolytes to maintain Mg++>2.2, K+>4 - HOLD amlodipine iso soft BPs - HOLD home clonidine given bradycardia and junctional rhythm - HOLD home ASA iso #coagulopathy and SDH - Consider starting statin once LFTs normalize if patient is amenable Assessment & Plan (04/04/2025 5:43 PM EDT): #Volume overload #CAD c/b STEMI in 2013 s/p ERNTS to LAD #HTN Patient presents with significant volume overload and markedly elevated NT- proBNP (>22,000). Initial TTE showed preserved EF (65%) but new RV dilation, severe tricuspid regurgitation (TR), and elevated RVSP (39 mmHg), all worsening compared to prior studies. Troponin was elevated (190s) but adynamic, likely secondary to demand ischemia from hypervolemia and RV strain. There is concern for worsening valvular disease contributing to acute liver failure and acute renal failure due to congestive pathology, though primary hepatic injury leading to TR/RV strain and subsequent cardiorenal syndrome is also considered. Cardiology was consulted. Lipid panel was normal. Patient received IV diuresis. Repeat TTE showed progression of mitral regurgitation to moderate-severe, persistent severe TR, definitive pulmonary hypertension, and reduced EF (57%). 03/30 evening patient c/o chest pain with HR sustained in 150s, BP 130/60s. EKG with SVT (baseline junctional). S/p metoprolol 5mg IV x1 chest pain resolved, though HR remained elevated. Then given adenosine 6 mg IV x2, amio 150 mg IV bolus, and diltiazem 20 mg IV x1. Cards attending discussed possible cardioversion with EP team, though have deferred at this time given overall clinical stability and hesitancy to anticoagulate given recent SDH. Neurology aware and if needed, OK for AC with serial CT head monitoring. HR again noted to have tachycardia with a rate sustaining in he 140s-150s. Our suspicion is just this may be an atrial tachycardia versus flutter (less likely fib), which improves temporarily after receiving gianni blockade with gradual return to tachycardia. We suspect this patient has tachybrady syndrome. EP team consulted. Overall strategy will be to manage SVT with diltiazem as she has been responsive to it while pursuing RHC and coronary angiogram, with likely pacemaker pending w/u and course. 04/03 pt reported chest pain that was sharp and did not radiate. Correlated with elevated HR 120s-130s with stable BP. ECG obtained showing ectopic artrial tachycardia with 2nd degree AV block. Largely unchanged him prior ECG 04/01. Troponin obtained and unremarkable. Chest pain reoccurred later in afternoon with repeat troponin stable. Reassuringly improved with IVF 250cc. No reported chest pain 04/04. Cardiology made aware and following. - EP following for rhythm management (now signed off) ---Continue diltiazem to 45mg Q6H (can uptitrate as needed to reduce HR while mindful of BP effects) ---EP study outpatient - Cardiology following, appreciate recs --- Continue home spironolactone 25mg. --- Hold diuresis today given euvolemic on exam. --- Plan for RHC and coronary angiogram 04/05. --- Goal euvolemic --- would benefit from SGLT2-I, though will defer at this time. Jardiance copay $0 sent 03/30 - Standing weights as able - Strict Is/Os - monitor and replete electrolytes to maintain Mg++>2.2, K+>4 - HOLD amlodipine iso soft BPs - HOLD home clonidine given bradycardia and junctional rhythm - HOLD home ASA iso #coagulopathy and SDH - Consider starting statin once LFTs normalize if patient is amenable Assessment & Plan (04/03/2025 4:54 PM EDT): #Volume overload #CAD c/b STEMI in 2012 s/p ERNST to LAD #HTN Patient presents with significant volume overload and markedly elevated NT- proBNP (>22,000). Initial TTE showed preserved EF (65%) but new RV dilation, severe tricuspid regurgitation (TR), and elevated RVSP (39 mmHg), all worsening compared to prior studies. Troponin was elevated (190s) but adynamic, likely secondary to demand ischemia from hypervolemia and RV strain. There is concern for worsening valvular disease contributing to acute liver failure and acute renal failure due to congestive pathology, though primary hepatic injury leading to TR/RV strain and subsequent cardiorenal syndrome is also considered. Cardiology was consulted. Lipid panel was normal. Patient received IV diuresis. Repeat TTE showed progression of mitral regurgitation to moderate-severe, persistent severe TR, definitive pulmonary hypertension, and reduced EF (57%). 03/30 evening patient c/o chest pain with HR sustained in 150s, BP 130/60s. EKG with SVT (baseline junctional). S/p metoprolol 5mg IV x1 chest pain resolved, though HR remained elevated. Then given adenosine 6 mg IV x2, amio 150 mg IV bolus, and diltiazem 20 mg IV x1. Cards attending discussed possible cardioversion with EP team, though have deferred at this time given overall clinical stability and hesitancy to anticoagulate given recent SDH. Neurology aware and if needed, OK for AC with serial CT head monitoring. HR again noted to have tachycardia with a rate sustaining in he 140s-150s. Our suspicion is just this may be an atrial tachycardia versus flutter (less likely fib), which improves temporarily after receiving gianni blockade with gradual return to tachycardia. We suspect this patient has tachybrady syndrome. EP team consulted. Overall strategy will be to manage SVT with diltiazem as she has been responsive to it while pursuing RHC and coronary angiogram, with likely pacemaker pending w/u and course. Pt reported chest pain in afternoon. Reported sharp pain that did not radiate. Denied chest tightness, ECG obtained showing ectopic artrial tachycardia with 2nd degree AV block. Largely unchanged him prior ECG 04/01. Troponin obtained and unremarkable at 47 with is decreased prior prior check of 63 on 03/31. Reassuringly pain improved on repeat evaluation. Would also consider possible PE given anticoagulation was held intermittently in setting of SDH. Can consider CT PE if chest pain is persistent. - EP following for rhythm management (now signed off) ---Increased diltiazem to 45mg Q6H (can uptitrate as needed to reduce HR while mindful of BP effects) ---EP study outpatient - Cardiology following, appreciate recs --- Continue home spironolactone 25mg. --- Hold diuresis today given euvolemic on exam. --- will need RHC and coronary angiogram pending mental status and stability of arrhythmia (likely Friday next week). --- Goal net negative 1-2L --- would benefit from SGLT2-I, though will defer at this time. Jardiance copay $0 sent 03/30 - Standing weights as able - Strict Is/Os - monitor and replete electrolytes to maintain Mg++>2.2, K+>4 - HOLD amlodipine iso soft BPs - HOLD home clonidine given bradycardia and junctional rhythm - HOLD home ASA iso #coagulopathy and SDH - Consider starting statin once LFTs normalize if patient is amenable Assessment & Plan (04/02/2025 5:28 PM EDT): #Volume overload #CAD c/b STEMI in 2013 s/p ERNST to LAD #HTN Patient presents with significant volume overload and markedly elevated NT- proBNP (>22,000). Initial TTE showed preserved EF (65%) but new RV dilation, severe tricuspid regurgitation (TR), and elevated RVSP (39 mmHg), all worsening compared to prior studies. Troponin was elevated (190s) but adynamic, likely secondary to demand ischemia from hypervolemia and RV strain. There is concern for worsening valvular disease contributing to acute liver failure and acute renal failure due to congestive pathology, though primary hepatic injury leading to TR/RV strain and subsequent cardiorenal syndrome is also considered. Cardiology was consulted. Lipid panel was normal. Patient received IV diuresis. Repeat TTE showed progression of mitral regurgitation to moderate-severe, persistent severe TR, definitive pulmonary hypertension, and reduced EF (57%). 03/30 evening patient c/o chest pain with HR sustained in 150s, BP 130/60s. EKG with SVT (baseline junctional). S/p metoprolol 5mg IV x1 chest pain resolved, though HR remained elevated. Then given adenosine 6 mg IV x2, amio 150 mg IV bolus, and diltiazem 20 mg IV x1. Cards attending discussed possible cardioversion with EP team, though have deferred at this time given overall clinical stability and hesitancy to anticoagulate given recent SDH. Neurology aware and if needed, OK for AC with serial CT head monitoring. HR again noted to have tachycardia with a rate sustaining in he 140s-150s. Our suspicion is just this may be an atrial tachycardia versus flutter (less likely fib), which improves temporarily after receiving gianni blockade with gradual return to tachycardia. We suspect this patient has tachybrady syndrome. EP team consulted. Overall strategy will be to manage SVT with diltiazem as she has been responsive to it while pursuing RHC and coronary angiogram, with likely pacemaker pending w/u and course. - EP following for rhythm management (now signed off) ---continue diltiazem 30 mg Q6H (can uptitrate as needed to reduce HR while mindful of BP effects) ---EP study outpatient - Cardiology following, appreciate recs --- Continue home spironolactone 25mg --- Hold diuresis today given euvolemic on exam, consider resuming 04/03. --- will need RHC and coronary angiogram pending mental status and stability of arrhythmia (likely Friday next week) --- Goal net negative 1-2L --- would benefit from SGLT2-I, though will defer at this time. Fe copay $0 sent 03/30 - Standing weights as able - Strict Is/Os - monitor and replete electrolytes to maintain Mg++>2.2, K+>4 - HOLD amlodipine iso soft BPs - HOLD home clonidine given bradycardia and junctional rhythm - HOLD home ASA iso #coagulopathy and SDH - Consider starting statin once LFTs normalize if patient is amenable Assessment & Plan (04/01/2025 12:25 PM EDT): #Volume overload #CAD c/b STEMI in 2012 s/p ERNST to LAD #HTN Patient presents with significant volume overload and markedly elevated NT- proBNP (>22,000). Initial TTE showed preserved EF (65%) but new RV dilation, severe tricuspid regurgitation (TR), and elevated RVSP (39 mmHg), all worsening compared to prior studies. Troponin was elevated (190s) but adynamic, likely secondary to demand ischemia from hypervolemia and RV strain. There is concern for worsening valvular disease contributing to acute liver failure and acute renal failure due to congestive pathology, though primary hepatic injury leading to TR/RV strain and subsequent cardiorenal syndrome is also considered. Cardiology was consulted. Lipid panel was normal. Patient received IV diuresis. Repeat TTE showed progression of mitral regurgitation to moderate-severe, persistent severe TR, definitive pulmonary hypertension, and reduced EF (57%). 03/30 evening patient c/o chest pain with HR sustained in 150s, BP 130/60s. EKG with SVT (baseline junctional). S/p metoprolol 5mg IV x1 chest pain resolved, though HR remained elevated. Then given adenosine 6 mg IV x2, amio 150 mg IV bolus, and diltiazem 20 mg IV x1. Cards attending discussed possible cardioversion with EP team, though have deferred at this time given overall clinical stability and hesitancy to anticoagulate given recent SDH. Neurology aware and if needed, OK for AC with serial CT head monitoring. HR again noted to have tachycardia with a rate sustaining in he 140s-150s. Our suspicion is just this may be an atrial tachycardia versus flutter (less likely fib), which improves temporarily after receiving gianni blockade with gradual return to tachycardia. We suspect this patient has tachybrady syndrome. EP team consulted. Overall strategy will be to manage SVT with diltiazem as she has been responsive to it while pursuing RHC and coronary angiogram, with likely pacemaker pending w/u and course. - EP following for rhythm management (now signed off) ---continue diltiazem 30 mg Q6H (can uptitrate as needed to reduce HR while mindful of BP effects) ---EP study outpatient - Cardiology following, appreciate recs --- Restart home spironolactone 25mg ---give 40 mg IV lasix x1 --- will need RHC and coronary angiogram pending mental status and stability of arrhythmia (likely Friday next week) --- Goal net negative 1-2L --- would benefit from SGLT2-I, though will defer at this time. Jardiance copay $0 sent 03/30 - Standing weights - Strict Is/Os - monitor and replete electrolytes to maintain Mg++>2.2, K+>4 - HOLD amlodipine iso soft BPs - HOLD home clonidine given bradycardia and junctional rhythm - HOLD home ASA iso #coagulopathy and SDH - Consider starting statin once LFTs normalize if patient is amenable Assessment & Plan (03/31/2025 4:37 PM EDT): #Volume overload #CAD c/b STEMI in 2012 s/p ERNST to LAD #HTN Patient presents with significant volume overload and markedly elevated NT- proBNP (>22,000). Initial TTE showed preserved EF (65%) but new RV dilation, severe tricuspid regurgitation (TR), and elevated RVSP (39 mmHg), all worsening compared to prior studies. Troponin was elevated (190s) but adynamic, likely secondary to demand ischemia from hypervolemia and RV strain. There is concern for worsening valvular disease contributing to acute liver failure and acute renal failure due to congestive pathology, though primary hepatic injury leading to TR/RV strain and subsequent cardiorenal syndrome is also considered. Cardiology was consulted. Lipid panel was normal. Patient received IV diuresis. Repeat TTE showed progression of mitral regurgitation to moderate-severe, persistent severe TR, definitive pulmonary hypertension, and reduced EF (57%). 03/30 evening patient c/o chest pain with HR sustained in 150s, BP 130/60s. EKG with SVT (baseline junctional). S/p metoprolol 5mg IV x1 chest pain resolved, though HR remained elevated. Then given adenosine 6 mg IV x2, amio 150 mg IV bolus, and diltiazem 20 mg IV x1. Cards attending discussed possible cardioversion with EP team, though have deferred at this time given overall clinical stability and hesitancy to anticoagulate given recent SDH. Neurology aware and if needed, OK for AC with serial CT head monitoring. HR again noted to have tachycardia with a rate sustaining in he 140s-150s. Our suspicion is just this may be an atrial tachycardia versus flutter (less likely fib), which improves temporarily after receiving gianni blockade with gradual return to tachycardia. We suspect this patient has tachybrady syndrome. EP team consulted. Overall strategy will be to manage SVT with diltiazem as she has been responsive to it while pursuing RHC and coronary angiogram, with likely pacemaker pending w/u and course. - EP consulted, appreciate recs ---start diltiazem 30 mg Q6H (can uptitrate as needed to reduce HR while mindful of BP effects) ---pending ischemic eval and her course may need PPM for sinus node dysfunction - Cardiology following, appreciate recs ---will need RHC and coronary angiogram when euvolemic and not in SVT --- Goal net negative 1-2L --- Continue home spironolactone 25mg (restarted 03/29) --- would benefit from SGLT2-I, though will defer at this time. Jardiance copay $0 sent 03/30 - Standing weights - Strict Is/Os - HOLD amlodipine iso soft BPs - HOLD home clonidine given bradycardia and junctional rhythm - HOLD home ASA iso #coagulopathy and SDH - Consider starting statin once LFTs normalize if patient is amenable Assessment & Plan (03/30/2025 1:40 PM EDT): #Volume overload #CAD c/b STEMI in 2012 s/p ERNST to LAD #HTN NT-proBNP elevated at >22K in the setting of volume overload. Obtained TTE 03/18 which showed EF preserved at 65%, but new dilated RV and severe TR with RVSP 39, significantly worse compared to TTE 03/11 and prior in 2022. Trop elevated to 190s but adynamic, likely demand related iso hypervolemia and RV strain. Suspect worsening valvular disease may have contributed to # acute liver failure and # ARF due congestive pathology, though it is also possible that the original injury was hepatic which then caused the worsening TR/RV strain which then led to cardiorenal syndrome. Cardiology was consulted for further workup and management. Lipid tests WNL. She was actively diuresed with IV lasix, repeated TTE which showed progression of MR to mod-severe, similar severe TR, now-definitive evidence of pulmonary HTN, and a reduced EF from 65-->57%. - Cardiology consulted, appreciate recs --- Goal net negative 1-2L --- Resume IV diuresis as able (unable to place PIV as patient is continuing to refuse PIV placement) Give 40 mg po Torsemide now and reassess for evening dose --- Continue home spironolactone 25mg (restarted 03/29) --- would benefit from SGLT2-I, though will defer at this time. Jardiance copay $0 sent 03/30 - Standing weights - Strict Is/Os - Continue amlodipine - HOLD home clonidine given bradycardia and junctional rhythm - HOLD home ASA iso #coagulopathy and SDH - Consider starting statin once LFTs normalize if patient is amenable Assessment & Plan (03/29/2025 5:51 PM EDT): #Volume overload #CAD c/b STEMI in 2012 s/p ERNST to LAD #HTN NT-proBNP elevated at >22K in the setting of volume overload. Obtained TTE 03/18 which showed EF preserved at 65%, but new dilated RV and severe TR with RVSP 39, significantly worse compared to TTE 03/11 and prior in 2022. Trop elevated to 190s but adynamic, likely demand related iso hypervolemia and RV strain. Suspect worsening valvular disease may have contributed to # acute liver failure and # ARF due congestive pathology, though it is also possible that the original injury was hepatic which then caused the worsening TR/RV strain which then led to cardiorenal syndrome. Cardiology was consulted for further workup and management. She was actively diuresed with IV lasix, with a plan to repeat TTE once euvolemic, which showed progression of MR to mod-severe, similar severe TR, now-definitive evidence of pulmonary HTN, and a reduced EF from 65-->57%. - Cardiology consulted, appreciate recs --- Goal net negative 1-2L --- Resume IV diuresis as able (unable to place PIV today as patient is refusing PIV placement.); s/p lasix 20mg PO this morning, will give PO torsemide 40mg this PM and continue to work towards getting IV access --- RESTART home spironolactone 25mg - Standing weights - Strict Is/Os - Continue amlodipine - HOLD home clonidine given bradycardia and junctional rhythm - HOLD home ASA iso #coagulopathy and SDH - Consider starting statin once LFTs normalize if patient is amenable Assessment & Plan (03/28/2025 6:38 PM EDT): #Volume overload #CAD c/b STEMI in 2012 s/p ERNST to LAD #HTN NT-proBNP elevated at >22K in the setting of volume overload. Obtained TTE 03/18 which showed EF preserved at 65%, but new dilated RV and severe TR with RVSP 39, significantly worse compared to TTE 03/11 and prior in 2022. Trop elevated to 190s but adynamic, likely demand related iso hypervolemia and RV strain. Suspect worsening valvular disease may have contributed to # acute liver failure and # ARF due congestive pathology, though it is also possible that the original injury was hepatic which then caused the worsening TR/RV strain which then led to cardiorenal syndrome. Cardiology was consulted for further workup and management. She was actively diuresed with IV lasix, with a plan to repeat TTE once euvolemic, which showed progression of MR to mod-severe, similar severe TR, now-definitive evidence of pulmonary HTN, and a reduced EF from 65-->57%. - Cardiology signed off for now, appreciate recs - Initiate lasix 20mg daily for maintenance dosing - Continue amlodipine - HOLD home spironolactone 25mg due to recovering SANDRA - HOLD home clonidine given bradycardia and junctional rhythm - HOLD home ASA iso #coagulopathy and SDH - Consider starting statin once LFTs normalize if patient is amenable Assessment & Plan (03/27/2025 6:39 PM EDT): #volume overload #CAD c/b STEMI in 2013 s/p ERNST to LAD #HTN NT-proBNP elevated at >22K in the setting of volume overload. Obtained TTE 03/18 which showed EF preserved at 65%, but new dilated RV and severe TR with RVSP 39, significantly worse compared to TTE 03/11 and prior in 2022. Trop elevated to 190s but adynamic, likely demand related iso hypervolemia and RV strain. Suspect worsening valvular disease may have contributed to # acute liver failure and # ARF due congestive pathology, though it is also possible that the original injury was hepatic which then caused the worsening TR/RV strain which then led to cardiorenal syndrome. Cardiology was consulted for further workup and management. She was actively diuresed with IV lasix, with a plan to repeat TTE once euvolemic. - Cardiology signed off for now, appreciate recs - Repeat TTE (ordered) - Hold diuresis as patient appear euvolemic on exam - Continue amlodipine - HOLD home spironolactone 25mg due to recovering SANDRA - HOLD home clonidine given recent bradycardia at [facility] and junctional rhythm - HOLD home ASA iso #coagulopathy and blood clots in stool - Consider starting statin once LFTs normalize if patient is amenable Assessment & Plan (03/26/2025 6:37 PM EDT): #volume overload #CAD c/b STEMI in 2012 s/p ERNST to LAD #HTN NT-proBNP elevated at >22K in the setting of volume overload. Obtained TTE 03/18 which showed EF preserved at 65%, but new dilated RV and severe TR with RVSP 39, significantly worse compared to TTE 03/11 and prior in 2022. Trop elevated to 190s but adynamic, likely demand related iso hypervolemia and RV strain. Suspect worsening valvular disease may have contributed to # acute liver failure and # ARF due congestive pathology, though it is also possible that the original injury was hepatic which then caused the worsening TR/RV strain which then led to cardiorenal syndrome. Cardiology was consulted for further workup and management. She was actively diuresed with IV lasix, with a plan to repeat TTE once euvolemic. - Cardiology signed off for now, appreciate recs - Will repeat TTE (not yet scheduled) - Continue amlodipine - HOLD home spironolactone 25mg due to recovering SANDRA - HOLD home clonidine given recent bradycardia at [facility] and junctional rhythm - HOLD home ASA iso #coagulopathy and blood clots in stool - Consider starting statin once LFTs normalize if patient is amenable Assessment & Plan (03/25/2025 12:00 PM EDT): #volume overload #CAD c/b STEMI in 2013 s/p ERNST to LAD #HTN NT-proBNP elevated at >22K in the setting of volume overload. Obtained TTE 03/18 which showed EF preserved at 65%, but new dilated RV and severe TR with RVSP 39, significantly worse compared to TTE 03/11 and prior in 2022. Trop elevated to 190s but adynamic, likely demand related iso hypervolemia and RV strain. Suspect worsening valvular disease may have contributed to # acute liver failure and # ARF due congestive pathology, though it is also possible that the original injury was hepatic which then caused the worsening TR/RV strain which then led to cardiorenal syndrome. Cardiology was consulted for further workup and management. She was actively diuresed with IV lasix, with a plan to repeat TTE once euvolemic. - Cardiology signed off for now, appreciate recs -- Now dry/euvolemic on exam, will repeat TTE to re-assess tricuspid regurgitation (Cards notified 03/25) - HOLD home spironolactone 25mg due to recovering SANDRA - Resume new amlodipine today - HOLD home clonidine given recent bradycardia at [facility] and junctional rhythm - HOLD home ASA iso #coagulopathy and blood clots in stool - Consider starting statin once LFTs normalize if patient is amenable Assessment & Plan (03/24/2025 4:37 PM EDT): #volume overload #CAD c/b STEMI in 2013 s/p ERNST to LAD #HTN NT-proBNP elevated at >22K in the setting of volume overload. Obtained TTE 03/18 which showed EF preserved at 65%, but new dilated RV and severe TR with RVSP 39, significantly worse compared to TTE 03/11 and prior in 2022. Trop elevated to 190s but adynamic, likely demand related iso hypervolemia and RV strain. Suspect worsening valvular disease may have contributed to # acute liver failure and # ARF due congestive pathology, though it is also possible that the original injury was hepatic which then caused the worsening TR/RV strain which then led to cardiorenal syndrome. Cardiology was consulted for further workup and management. - Cardiology signed off for now, appreciate recs -- Dry/euvolemic on exam, will repeat TTE to re-assess tricuspid regurgitation - HOLD home spironolactone 25mg due to recovering SANDRA - HOLD new amlodipine in the setting of colitis, resume as able - HOLD home clonidine given recent bradycardia at [facility] and junctional rhythm - HOLD home ASA iso #coagulopathy and blood clots in stool - Consider starting statin once LFTs normalize if patient is amenable Assessment & Plan (03/23/2025 2:31 PM EDT): #volume overload #CAD c/b STEMI in 2012 s/p ERNST to LAD #HTN NT-proBNP elevated at >22K in the setting of volume overload. Obtained TTE 03/18 which showed EF preserved at 65%, but new dilated RV and severe TR with RVSP 39, significantly worse compared to TTE 03/11 and prior in 2022. Trop elevated to 190s but adynamic, likely demand related iso hypervolemia and RV strain. Suspect worsening valvular disease may have contributed to # acute liver failure and # ARF due congestive pathology, though it is also possible that the original injury was hepatic which then caused the worsening TR/RV strain which then led to cardiorenal syndrome. Cardiology was consulted for further workup and management. - Cardiology signing off for now, appreciate recs - Continue diuresis for goal 1-2L TBB negative; responding well to 40mg IV Lasix --- BID BMP/Mg while actively diuresing, replete as needed for K>4, Mg>2.2. - HOLD home spironolactone 25mg due to recovering SANDRA - HOLD new amlodipine in the setting of worsening colitis, resume as able - HOLD home clonidine given recent bradycardia at [facility] and junctional rhythm - HOLD home ASA iso #coagulopathy and blood clots in stool - Once closer to euvolemia re-consult Cardiology and get TTE to re-assess tricuspid regurgitation - Consider starting statin once LFTs normalize if patient is amenable Assessment & Plan (03/22/2025 2:51 PM EDT): #volume overload #CAD c/b STEMI in 2012 s/p ERNST to LAD #HTN NT-proBNP elevated at >22K in the setting of volume overload. Obtained TTE 03/18 which showed EF preserved at 65%, but new dilated RV and severe TR with RVSP 39, significantly worse compared to TTE 03/11 and prior in 2022. Trop elevated to 190s but adynamic, likely demand related iso hypervolemia and RV strain. Suspect worsening valvular disease may have contributed to # acute liver failure and # ARF due congestive pathology, though it is also possible that the original injury was hepatic which then caused the worsening TR/RV strain which then led to cardiorenal syndrome. Cardiology now consulted for further workup and management. - Cardiology following, appreciate recs - Continue diuresis for goal 1-2L TBB negative; responding well to 40mg IV Lasix --- BID BMP/Mg while actively diuresing, replete as needed for K>4, Mg>2.2. - HOLD home spironolactone 25mg due to recovering SANDRA - HOLD new amlodipine in the setting of worsening colitis, resume as able - HOLD home clonidine given recent bradycardia at [facility] and junctional rhythm - HOLD home ASA iso # coagulopathy and 2 episodes melena in ICU; if no recurrent melena and Hgb stable will consider resuming ASA in coming days - once closer to euvolemia will repeat TTE to re-assess tricuspid regurgitation - Consider starting statin once LFTs normalize if patient is amenable Assessment & Plan (03/21/2025 10:17 AM EDT): Patient found to have elevated NT-proBNP >22K from 7.3K on 03/07. TTE 03/18 notable for EF 65%, dilated RV, trace AI, mild-moderate MR, and severe TR with RVSP 39. TR noted to have worsened significantly compared to TTE 03/11, and even moreso compared to TTE prior to that in 2022. Suspect # acute liver failure and # ARF 2/2 congestive pathology iso new severe TR, tho it is also possible that the original injury was hepatic which then caused the worsening TR/RV strain which then led to cardiorenal syndrome. - Cardiology consulted, appreciate recs - Diuresis as elsewhere Assessment & Plan (03/20/2025 2:00 PM EDT): Patient found to have elevated NT-proBNP >22K from 7.3K on 03/07. TTE 03/18 notable for EF 65%, dilated RV, trace AI, mild-moderate MR, and severe TR with RVSP 39. TR noted to have worsened significantly compared to TTE 03/11. - Diuresis as elsewhere - Consider cardiology involvement PRN; structural cards down the line once acute issues stabilized Assessment & Plan (03/20/2025 3:53 AM EDT): Patient found to have elevated NT-proBNP>22k. TTE notable for EF 65%, dilated RV, trace AI, mild-moderate MR, severe TR with RVSP 39. Coagulopathy 03/20/2025 Assessment & Plan (03/21/2025 10:17 AM EDT): On presentation to [facility] INR elevated to 7.7 iso # acute liver failure. S/P IV VK 10mg x 3 doses (). With this and improvement in LFTs, INR improved. Reportedly with 2 episodes of melena in ICU tho none observed since transfer to the floor and Hgb remains stable, see # anemia. Home eliquis has been on hold in the setting of all this; INR dropped below 2 on 03/21 so resuming eliquis. - Trend PT-INR daily - Monitor for melena, overt bleeding - Revert PPI from IV back to home PO - omeprazole 40mg qd in place of home pantoprazole - Resume home apixaban 5mg BID today 03/21 given INR now <2 Assessment & Plan (03/20/2025 2:00 PM EDT): On presentation to [facility] INR elevated to 7.7 iso # ALI. S/P IV VK 10mg x 3 doses (). With this and improvement in # ALI, INR improving, now 2.7 as of 03/20. Reportedly with 2 episodes of melena in ICU tho none observed since transfer to the floor and Hgb remains stable, see # anemia. - Trend PT-INR daily - Monitor for melena, overt bleeding; cont IV PPI BID in place of home PO pantoprazole - Holding home apixaban, ASA for now; holding DVT ppx Leukocytosis 03/20/2025 Assessment & Plan (04/14/2025 1:16 PM EST): # Diarrhea (resolved) # UTI Initial leukocytosis on admission felt to be secondary to colitis, infectious workup unrevealing and ultimately resolved without intervention. Now with recurrent leukocytosis. Does have intermittent diarrhea, C Diff negative and diarrhea now resolved. UA positive and urine culture growing vancomycin resistant Enterococcus faecium . Treated with fosfomycin 3g x1 on 04/11. - Trend CBC with diff - F/u Ucx - vancomycin resistant Enterococcus faecium - F/u Bcx (04/12)- NGTD - S/p Fosfomycin 3g x1 (04/11), LFTs stable - S/p CTX 2g IV x1 (04/12), will defer further doses as Fosfomycin should provide adequate coverage - FYI: Extensive antibiotic allergies (PCN, cephalosporins (but keflex apparently OK), amoxicillin, bactrim, LVQ, cipro, doxycycline, clarithromycin). Avoid potential nephrotoxins and dose for GFR<30; avoid potential hepatotoxins. Options for empiric abx include keflex, vanc (but MRSA negative), azithromycin (on this chronically at home for asthma), carbapenems Assessment & Plan (04/13/2025 4:24 PM EST): # Diarrhea (resolved) # UTI Initial leukocytosis on admission felt to be secondary to colitis, infectious workup unrevealing and ultimately resolved without intervention. Now with recurrent leukocytosis. Does have intermittent diarrhea, C Diff negative and diarrhea now resolved. UA notable for 2+ blood, 3+ leukocyte esterase, > 100 WBC and patient endorsing dysuria c/w UTI. Treated with fosfomycin 3g x1 on 04/11. However, patient developed recurrent episode of SVT overnight 04/11-04/12 possibly provoked in the setting of infection. CXR without evidence of PNA. - Trend CBC with diff - F/u Ucx - >100,000 Enterococcus faecium - F/u Bcx (04/12) - S/p Fosfomycin 3g x1 (04/11), LFTs stable - S/p CTX 2g IV x1 (04/12), will defer further doses as Fosfomycin should provide adequate coverage. If WBC trending up, consider broadening antibiotics. - FYI: Extensive antibiotic allergies (PCN, cephalosporins (but keflex apparently OK), amoxicillin, bactrim, LVQ, cipro, doxycycline, clarithromycin). Avoid potential nephrotoxins and dose for GFR<30; avoid potential hepatotoxins. Options for empiric abx include keflex, vanc (but MRSA negative), azithromycin (on this chronically at home for asthma), carbapenems Assessment & Plan (04/12/2025 3:54 PM EST): # Diarrhea (resolved) # UTI Initial leukocytosis on admission felt to be secondary to colitis, infectious workup unrevealing and ultimately resolved without intervention. Now with recurrent leukocytosis trending up to 14.9 -> 15.87 today. Does have intermittent diarrhea, C Diff negative and diarrhea now resolved. UA notable for 2+ blood, 3+ leukocyte esterase, > 100 WBC and patient endorsing dysuria c/w UTI. Treated with fosfomycin 3g x1 on 04/11. However, patient developed recurrent episode of SVT overnight 04/11- 04/12 possibly provoked in the setting of infection. CXR without evidence of PNA. - Trend CBC with diff - F/u Ucx - pending - F/u Bcx (04/12) - S/p Fosfomycin 3g x1 (04/11), LFTs stable - S/p CTX 2g IV x1 (04/12), will defer further doses pending WBC trend tomorrow as Fosfomycin should provide adequate coverage. If WBC trending up, consider broadening antibiotics. - FYI: Extensive antibiotic allergies (PCN, cephalosporins (but keflex apparently OK), amoxicillin, bactrim, LVQ, cipro, doxycycline, clarithromycin). Avoid potential nephrotoxins and dose for GFR<30; avoid potential hepatotoxins. Options for empiric abx include keflex, vanc (but MRSA negative), azithromycin (on this chronically at home for asthma), carbapenems Assessment & Plan (04/11/2025 6:03 PM EST): # Diarrhea # UTI Leukocytosis on admission felt to be secondary to colitis, infectious workup unrevealing and ultimately resolved without intervention. Now with new leukocytosis trending up to 14.9 today. Does have intermittent diarrhea, C Diff negative. Patient now with new dysuria today, UA notable for 2+ blood, 3+ leukocyte esterase, > 100 WBC c/w UTI. - Trend CBC with diff - Treat with Fosfomycin 3g x1, will trend LFTs with AM labs given c/f possible DILI however liver injury on admission most likely related to hepatic congestion, as elsewhere --- Can consider CTX as alternate antibiotic (previously tolerated) - FYI: Extensive antibiotic allergies (PCN, cephalosporins (but keflex apparently OK), amoxicillin, bactrim, LVQ, cipro, doxycycline, clarithromycin). Avoid potential nephrotoxins and dose for GFR<30; avoid potential hepatotoxins. Options for empiric abx include keflex, vanc (but MRSA negative), azithromycin (on this chronically at home for asthma), carbapenems Assessment & Plan (04/10/2025 4:46 PM EST): # Diarrhea Leukocytosis on admission felt to be secondary to colitis, infectious workup unrevealing and ultimately resolved without intervention. Now with new leukocytosis with WBC to 13 today. Patient denies any shortness of breath, cough, dysuria, or other localizing infectious symptoms. Per nursing, patient has had multiple episodes of watery diarrhea today raising concern for ongoing colitis vs possible C Diff infection given prolonged hospitalization and recent antibiotic treatment for UTI. - Trend CBC with diff - F/u C Diff - Defer antibiosis for now in the absence of localizing symptoms - If fevers, would repeat infectious workup (Bcx, UA, CXR) and start broad spectrum antibiotics with vanc, flagyl, meropenem - FYI: Extensive antibiotic allergies (PCN, cephalosporins (but keflex apparently OK), amoxicillin, bactrim, LVQ, cipro, doxycycline, clarithromycin). Avoid potential nephrotoxins and dose for GFR<30; avoid potential hepatotoxins. Options for empiric abx include keflex, vanc (but MRSA negative), azithromycin (on this chronically at home for asthma), carbapenems Assessment & Plan (03/21/2025 10:17 AM EDT): WBC slightly elevated low teens on transfer to [facility], normalizing by 03/18, then rising again 8->10->12->17 by 03/20. No fever, hypotension or tachycardia. UA 03/20 bland, BCx NGTD. Blanchable area on sacrum, no open wounds. MRSA negative 03/17. Remains on RA without respiratory symptoms; CXR 03/19 with no evidence of PNA, tho she is at risk for aspiration iso # delirium. Also consider GI source as in # abdominal pain below. Ddx also includes reactive leukocytosis iso ALI however with CRP also elevated to 129 (ESR wnl). Has not received any steroids recently. - Trend WBC on daily CBC - Infectious GI workup as below in # abdominal pain - F/U pending ID studies as in # acute liver failure - Extensive antibiotic allergies (PCN, cephalosporins (but keflex apparently OK), amoxicillin, bactrim, LVQ, cipro, doxycycline, clarithromycin). Avoid potential nephrotoxins and dose for GFR<30; avoid potential hepatotoxins. Options for empiric abx include keflex, vanc (but MRSA negative), azithromycin (on this chronically at home for asthma), carbapenems Assessment & Plan (03/20/2025 4:19 PM EDT): WBC slightly elevated low teens on transfer to [facility] [place], normalizing by 03/18, then rising again 8->10->12->17 as of 03/20. No fever, hypotension or tachycardia. UA/cx 03/17 negative. BCx 03/18 NGTD. Remains on RA without respiratory symptoms; CXR 03/19 with no evidence of PNA. She is at risk for aspiration iso # delirium. Also has been having frequent loose stools the past couple days but is on lactulose; no blood in the stool per nursing. Blanchable area on sacrum, no open wounds. MRSA negative 03/17. Ddx includes reactive iso ALI vs infectious vs inflammatory vs malignancy. - Trend WBC on daily CBC; obtain diff tmrw AM - F/U AM CRP, ESR - F/U repeat UA w/ reflex - F/U pending ID studies (ehrlichia/anaplasma, Lyme screen, BCx 03/18, etc) - Extensive antibiotic allergies (PCN, cephalosporins (but keflex apparently OK), amoxicillin, bactrim, LVQ, cipro, doxycycline, clarithromycin). Avoid potential nephrotoxins and dose for GFR<30; avoid potential hepatotoxins. Options for empiric abx include keflex, vanc (but MRSA negative), azithromycin (on this chronically at home for asthma), carbapenems Elevated liver enzymes 03/17/2025 Acute renal failure 03/17/2025 Assessment & Plan (04/14/2025 12:24 PM EST): # Cardiorenal syndrome Baseline Cr. ~1.5. Transferred from OSH to [facility] on 03/17 with SANDRA up to Cr of 4.9. Renal was consulted, ultimately felt to be cardiorenal in the setting of volume overload (discussed elsewhere). Autoimmune workup with C3/C4, cryoglobulin, ASO screen, UPEP negative. SLFC ratio elevated (2.6). Cr improved with diuresis and did not require CVVH. AIN was also felt to be possible given WBCs on sediment, however with improving Cr renal did not recommend steroids. Cr now returned to baseline. - Diuretics as above - Trend I&O's, Cr - Repeat SPEP, SFLC in 4-6 months Assessment & Plan (04/13/2025 4:16 PM EST): # Cardiorenal syndrome Baseline Cr. ~1.5. Transferred from OSH to [facility] on 03/17 with SANDRA up to Cr of 4.9. Renal was consulted, ultimately felt to be cardiorenal in the setting of volume overload (discussed elsewhere). Autoimmune workup with C3/C4, cryoglobulin, ASO screen, UPEP negative. SLFC ratio elevated (2.6). Cr improved with diuresis and did not require CVVH. AIN was also felt to be possible given WBCs on sediment, however with improving Cr renal did not recommend steroids. Cr now returned to baseline. - Diuretics as above - Trend I&O's, Cr - Repeat SPEP, SFLC in 4-6 months Assessment & Plan (04/12/2025 3:48 PM EST): # Cardiorenal syndrome Baseline Cr. ~1.5. Transferred from OSH to [facility] on 03/17 with SANDRA up to Cr of 4.9. Renal was consulted, ultimately felt to be cardiorenal in the setting of volume overload (discussed elsewhere). Autoimmune workup with C3/C4, cryoglobulin, ASO screen, UPEP negative. SLFC ratio elevated (2.6). Cr improved with diuresis and did not require CVVH. AIN was also felt to be possible given WBCs on sediment, however with improving Cr renal did not recommend steroids. Cr now returned to baseline. - Diuretics as above - Trend I&O's, Cr - Repeat SPEP, SFLC in 4-6 months Assessment & Plan (04/11/2025 6:03 PM EST): # Cardiorenal syndrome Baseline Cr. ~1.5. Transferred from OSH to [facility] on 03/17 with SANDRA up to Cr of 4.9. Renal was consulted, ultimately felt to be cardiorenal in the setting of volume overload (discussed elsewhere). Autoimmune workup with C3/C4, cryoglobulin, ASO screen, UPEP negative. SLFC ratio elevated (2.6). Cr improved with diuresis and did not require CVVH. AIN was also felt to be possible given WBCs on sediment, however with improving Cr renal did not recommend steroids. Cr now returned to baseline. - Diuretics as above - Trend I&O's, Cr - Repeat SPEP, SFLC in 4-6 months Assessment & Plan (04/10/2025 4:46 PM EST): # Cardiorenal syndrome Baseline Cr. ~1.5. Transferred from OSH to [facility] on 03/17 with SANDRA up to Cr of 4.9. Renal was consulted, ultimately felt to be cardiorenal in the setting of volume overload (discussed elsewhere). Autoimmune workup with C3/C4, cryoglobulin, ASO screen, UPEP negative. SLFC ratio elevated (2.6). Cr improved with diuresis and did not require CVVH. AIN was also felt to be possible given WBCs on sediment, however with improving Cr renal did not recommend steroids. Cr now returned to baseline. - Diuretics as above - Trend I&O's, Cr - Repeat SPEP, SFLC in 4-6 months Assessment & Plan (04/09/2025 11:38 AM EDT): #Cardiorenal syndrome Baseline Cr. ~1.5. Transferred from OSH to [facility] on 10/9 with SANDRA up to Cr of 4.9. Renal was consulted, ultimately felt to be cardiorenal in the setting of volume overload (discussed elsewhere). Autoimmune workup with C3/C4, cryoglobulin, ASO screen, UPEP negative. SLFC ratio elevated (2.6). Cr improved with diuresis and did not require CVVH. AIN was also felt to be possible given WBCs on sediment, however with improving Cr renal did not recommend steroids. Cr now returned to baseline. - Diuretics as above - Trend I&O's, Cr -Repeat SPEP, SFLC in 4-6 months Assessment & Plan (04/08/2025 1:48 PM EDT): #Cardiorenal syndrome Baseline Cr. ~1.5. Transferred from OSH to [facility] on 03/17 with SANDRA up to Cr of 4.9. Renal was consulted, ultimately felt to be cardiorenal in the setting of volume overload (discussed elsewhere). Autoimmune workup with C3/C4, cryoglobulin, ASO screen, UPEP negative. SLFC ratio elevated (2.6). Cr improved with diuresis and did not require CVVH. AIN was also felt to be possible given WBCs on sediment, however with improving Cr renal did not recommend steroids. Cr now returned to baseline. - Diuretics as above - Trend I&O's, Cr -Repeat SPEP, SFLC in 4-6 months Assessment & Plan (04/07/2025 11:36 AM EDT): #Cardiorenal syndrome Baseline Cr. ~1.5. Transferred from OSH to [facility] on 03/17 with SANDRA up to Cr of 4.9. Renal was consulted, ultimately felt to be cardiorenal in the setting of volume overload (discussed elsewhere). Autoimmune workup with C3/C4, cryoglobulin, ASO screen, UPEP negative. SLFC ratio elevated (2.6). Cr improved with diuresis and did not require CVVH. AIN was also felt to be possible given WBCs on sediment, however with improving Cr renal did not recommend steroids. Cr now returned to baseline. - Diuretics as above - Trend I&O's, Cr Assessment & Plan (04/06/2025 2:39 PM EDT): #Cardiorenal syndrome #MGUS Baseline Cr. ~1.5. Transferred from OSH to [facility] on 03/17 with SANDRA up to Cr of 4.9. Renal was consulted, ultimately felt to be cardiorenal in the setting of volume overload (discussed elsewhere). Autoimmune workup with C3/C4, cryoglobulin, ASO screen, UPEP negative. SLFC ratio elevated (2.6). Cr improved with diuresis and did not require CVVH. AIN was also felt to be possible given WBCs on sediment, however with improving Cr renal did not recommend steroids. Cr now returned to baseline. - Diuretics as above - Trend I&O's, Cr Assessment & Plan (04/05/2025 8:06 AM EDT): #Cardiorenal syndrome #MGUS Baseline Cr. ~1.5. Transferred from OSH to [facility] on 03/17 with SANDRA up to Cr of 4.9. Renal was consulted, ultimately felt to be cardiorenal in the setting of volume overload (discussed elsewhere). Autoimmune workup with C3/C4, cryoglobulin, ASO screen, UPEP negative. SLFC ratio elevated (2.6). Cr improved with diuresis and did not require CVVH. AIN was also felt to be possible given WBCs on sediment, however with improving Cr renal did not recommend steroids. Cr now returned to baseline. - Nephrology following, appreciate recs - Diuretics as above - Trend I&O's, Cr Assessment & Plan (04/04/2025 4:38 PM EDT): #Cardiorenal syndrome #MGUS Baseline Cr. ~1.5. Transferred from OSH to [facility] on 03/17 with SANDRA up to Cr of 4.9. Renal was consulted, ultimately felt to be cardiorenal in the setting of volume overload (discussed elsewhere). Autoimmune workup with C3/C4, cryoglobulin, ASO screen, UPEP negative. SLFC ratio elevated (2.6). Cr improved with diuresis and did not require CVVH. AIN was also felt to be possible given WBCs on sediment, however with improving Cr renal did not recommend steroids. Cr now returned to baseline. - Nephrology following, appreciate recs - Diuretics as above - Trend I&O's, Cr Assessment & Plan (04/03/2025 1:14 PM EDT): #Cardiorenal syndrome #MGUS Baseline Cr. ~1.5. Transferred from OSH to [facility] on 03/17 with SANDRA up to Cr of 4.9. Renal was consulted, ultimately felt to be cardiorenal in the setting of volume overload (discussed elsewhere). Autoimmune workup with C3/C4, cryoglobulin, ASO screen, UPEP negative. SLFC ratio elevated (2.6). Cr improved with diuresis and did not require CVVH. AIN was also felt to be possible given WBCs on sediment, however with improving Cr renal did not recommend steroids. Cr now returned to baseline. - Nephrology following, appreciate recs - Diuretics as above - Trend I&O's, Cr Assessment & Plan (04/02/2025 10:41 AM EDT): #Cardiorenal syndrome #MGUS Baseline Cr. ~1.5. Transferred from OSH to [facility] on 03/17 with SANDRA up to Cr of 4.9. Renal was consulted, ultimately felt to be cardiorenal in the setting of volume overload (discussed elsewhere). Autoimmune workup with C3/C4, cryoglobulin, ASO screen, UPEP negative. SLFC ratio elevated (2.6). Cr improved with diuresis and did not require CVVH. AIN was also felt to be possible given WBCs on sediment, however with improving Cr renal did not recommend steroids. Cr now returned to baseline. - Nephrology following, appreciate recs - Diuretics as above - Trend I&O's, Cr Assessment & Plan (04/01/2025 12:25 PM EDT): #Cardiorenal syndrome #MGUS Baseline Cr. ~1.5. Transferred from OSH to [facility] on 03/17 with SANDRA up to Cr of 4.9. Renal was consulted, ultimately felt to be cardiorenal in the setting of volume overload (discussed elsewhere). Autoimmune workup with C3/C4, cryoglobulin, ASO screen, UPEP negative. SLFC ratio elevated (2.6). Cr improved with diuresis and did not require CVVH. AIN was also felt to be possible given WBCs on sediment, however with improving Cr renal did not recommend steroids. Cr now returned to baseline. - Nephrology following, appreciate recs - Diuretics as above - Trend I&O's, Cr Assessment & Plan (03/31/2025 7:38 AM EDT): #Cardiorenal syndrome #MGUS Baseline Cr. ~1.5. Transferred from OSH to [facility] on 03/17 with SANDRA up to Cr of 4.9. Renal was consulted, ultimately felt to be cardiorenal in the setting of volume overload (discussed elsewhere). Autoimmune workup with C3/C4, cryoglobulin, ASO screen, UPEP negative. SLFC ratio elevated (2.6). Cr improved with diuresis and did not require CVVH. AIN was also felt to be possible given WBCs on sediment, however with improving Cr renal did not recommend steroids. Cr now returned to baseline. Has subsequently developed new hypernatremia to 158, likely in the setting of loop diuretics, poor PO intake, and diarrhea. S/p D5W with improvement in Na. Cr back to baseline (improved.) - Nephrology following, appreciate recs - Diuretics as above - Trend I&O's, Cr Assessment & Plan (03/30/2025 7:04 AM EDT): #Cardiorenal syndrome #MGUS Baseline Cr. ~1.5. Transferred from OSH to [facility] on 03/17 with SANDRA up to Cr of 4.9. Renal was consulted, ultimately felt to be cardiorenal in the setting of volume overload (discussed elsewhere). Autoimmune workup with C3/C4, cryoglobulin, ASO screen, UPEP negative. SLFC ratio elevated (2.6). Cr improved with diuresis and did not require CVVH. AIN was also felt to be possible given WBCs on sediment, however with improving Cr renal did not recommend steroids. Cr now returned to baseline. Has subsequently developed new hypernatremia to 158, likely in the setting of loop diuretics, poor PO intake, and diarrhea. S/p D5W with improvement in Na. Cr back to baseline (improved.) - Nephrology following, appreciate recs - Diuretics as above - Trend I&O's, Cr Assessment & Plan (03/29/2025 5:37 PM EDT): #Cardiorenal syndrome #MGUS Baseline Cr. ~1.5. Transferred from OSH to [facility] on 03/17 with SANDRA up to Cr of 4.9. Renal was consulted, ultimately felt to be cardiorenal in the setting of volume overload (discussed elsewhere). Autoimmune workup with C3/C4, cryoglobulin, ASO screen, UPEP negative. SLFC ratio elevated (2.6). Cr improved with diuresis and did not require CVVH. AIN was also felt to be possible given WBCs on sediment, however with improving Cr renal did not recommend steroids. Cr now returned to baseline. Has subsequently developed new hypernatremia to 158, likely in the setting of loop diuretics, poor PO intake, and diarrhea. S/p D5W with improvement in Na. Cr back to baseline (improved.) - Nephrology following, appreciate recs - Diuretics as above - Trend I&O's, Cr Assessment & Plan (03/28/2025 6:38 PM EDT): #Cardiorenal syndrome #MGUS Baseline Cr. ~1.5. Transferred from OSH to [facility] on 03/17 with SANDRA up to Cr of 4.9. Renal was consulted, ultimately felt to be cardiorenal in the setting of volume overload (discussed elsewhere). Autoimmune workup with C3/C4, cryoglobulin, ASO screen, UPEP negative. SLFC ratio elevated (2.6). Cr improved with diuresis and did not require CVVH. AIN was also felt to be possible given WBCs on sediment, however with improving Cr renal did not recommend steroids. Cr now returned to baseline. Has subsequently developed new hypernatremia to 158, likely in the setting of loop diuretics, poor PO intake, and diarrhea. S/p D5W with improvement in Na. Cr back to baseline (improved.) - Nephrology following, appreciate recs - Diuretics as below - Trend I&O's, Cr Assessment & Plan (03/27/2025 6:39 PM EDT): #Cardiorenal syndrome #Hypernatremia Baseline Cr. ~1.5. Transferred from OSH to [facility] on 03/17 with SANDRA up to Cr of 4.9. Renal was consulted, ultimately felt to be cardiorenal in the setting of volume overload (discussed elsewhere). Autoimmune workup with C3/C4, cryoglobulin, ASO screen, UPEP negative. SLFC ratio elevated (2.6). Cr improved with diuresis and did not require CVVH. AIN was also felt to be possible given WBCs on sediment, however with improving Cr renal did not recommend steroids. Cr now returned to baseline. Has subsequently developed new hypernatremia to 158, likely in the setting of loop diuretics, poor PO intake, and diarrhea. Now giving D5W as needed, with improvement in Na. - Nephrology following, appreciate recs - D5W prn for hypernatremia - Diuretics as below - Trend I&O's, Cr - F/u remaining autoimmune workup: SPEP Assessment & Plan (03/26/2025 6:37 PM EDT): #Cardiorenal syndrome #Hypernatremia Baseline Cr. ~1.5. Transferred from OSH to [facility] on 03/17 with SANDRA up to Cr of 4.9. Renal was consulted, ultimately felt to be cardiorenal in the setting of volume overload (discussed elsewhere). Autoimmune workup with C3/C4, cryoglobulin, ASO screen, UPEP negative. SLFC ratio elevated (2.6). Cr improved with diuresis and did not require CVVH. AIN was also felt to be possible given WBCs on sediment, however with improving Cr renal did not recommend steroids. Cr now returned to baseline. Has subsequently developed new hypernatremia to 158, likely in the setting of loop diuretics, poor PO intake, and diarrhea. Now giving D5W as needed, with improvement in Na. - Nephrology following, appreciate recs - D5W prn for hypernatremia - Diuretics as below - Trend I&O's, Cr - F/u remaining autoimmune workup: SPEP Assessment & Plan (03/25/2025 12:00 PM EDT): #Cardiorenal syndrome #Hypernatremia Baseline Cr. ~1.5. Transferred from OSH to [facility] on 03/17 with SANDRA up to Cr of 4.9. Renal was consulted, ultimately felt to be cardiorenal in the setting of volume overload (discussed elsewhere). Autoimmune workup with C3/C4, cryoglobulin, ASO screen, UPEP negative. SLFC ratio elevated (2.6). Cr improved with diuresis and did not require CVVH. AIN was also felt to be possible given WBCs on sediment, however with improving Cr renal did not recommend steroids. Cr now returned to baseline. Has subsequently developed new hypernatremia to 158, likely in the setting of loop diuretics, poor PO intake, and diarrhea. Now giving D5W as needed, with improvement in Na. - Nephrology following, appreciate recs - S/p 1.5L D5W 03/24, Na down to 146 today. Will defer further D5W today - Diuretics as below - Trend I&O's, Cr - F/u remaining autoimmune workup: SPEP Assessment & Plan (03/24/2025 5:44 PM EDT): #Cardiorenal syndrome #Hypernatremia Baseline Cr. ~1.5. Transferred from OSH to [facility] on 03/17 with SANDRA up to Cr of 4.9. Renal was consulted out of concern for HRS vs ATN vs AIN. SANDRA was ultimately felt to be cardiorenal in the setting of volume overload (discussed elsewhere), and her Cr improved with diuresis. Did not require CVVH. No casts on sediment that would be c/w ATN. HRS less likely with BPs on the higher side. AIN possible given WBCs on sediment however with improving Cr renal would not treat with steroids. Cr now returned to baseline, though with new hypernatremia to 158 (likely loop diuretics vs poorPO/GI losses ISO frequent BMs) - Nephrology re-consulted for management of SANDRA and hypernatremia, appreciate recs - S/p D5W 03/23, Na 152 today. Repeat D5W 500ccs bolus, next BMP 8pm. Goal Na 150 by 03/25 AM - Diuretics as below - Trend I&O's, Cr - C3/C4 low. No cryoglobulin. ASO screen negative. UPEP negative. SLFC ratio elevated (2.6). APLS labs as per #coagulopathy. F/u SPEP Assessment & Plan (03/23/2025 5:32 PM EDT): #Cardiorenal syndrome #Hypernatremia Baseline Cr. ~1.5. Transferred from OSH to [facility] on 03/17 with SANDRA up to Cr of 4.9. Renal was consulted out of concern for HRS vs ATN vs AIN. SANDRA was ultimately felt to be cardiorenal in the setting of volume overload (discussed elsewhere), and her Cr improved with diuresis. Did not require CVVH. No casts on sediment that would be c/w ATN. HRS less likely with BPs on the higher side. AIN possible given WBCs on sediment however with improving Cr renal would not treat with steroids. Cr now returned to baseline, though with new hypernatremia to 153 (likely loop diuretics vs poorPO/GI losses ISO frequent BMs) - Nephrology re-consulted for management of SANDRA and hypernatremia, appreciate recs - Diuretics as below - Trend I&O's, Cr - C3/C4 low. No cryoglobulin. ASO screen negative. UPEP negative. APLS labs as per #coagulopathy. F/u SPEP, SFLC. Assessment & Plan (03/22/2025 2:00 PM EDT): #Cardiorenal syndrome Baseline Cr. ~1.5. Transferred from OSH to [facility] on 03/17 with SANDRA up to Cr of 4.9. Renal was consulted out of concern for HRS vs ATN vs AIN. SANDRA was ultimately felt to be cardiorenal in the setting of volume overload (discussed elsewhere), and her Cr improved with diuresis. Did not require CVVH. No casts on sediment that would be c/w ATN. HRS less likely with BPs on the higher side. AIN possible given WBCs on sediment however with improving Cr renal would not treat with steroids. As of 03/22, Cr returned to baseline and Renal signed off. - Diuretics as below - Trend I&O's, Cr - C3/C4 low. No cryoglobulin. ASO screen negative. F/u SPEP, SFLC; APLAS labs. Reach back out to Renal if any abnormal. Assessment & Plan (03/21/2025 10:17 AM EDT): Patient has hx CKD with baseline Cr ~1.5. Presented to OSH 03/10 with SANDRA with Cr peak at 4.9. Transferred to [facility] given concern for potential need for CVVH. Nephrology consulted here. Etiology of SANDRA at this point favored to be cardiorenal given improvement with diuresis. No casts on sediment that would be c/w ATN. HRS less likely with BPs on the higher side. AIN possible given WBCs on sediment however with improving Cr renal would not treat with steroids. Noted to have low C3/C4 at OSH as well. With ongoing diuresis Cr has been down-trending, now to 1.8. No indication for METEOROLOGICAL EQUIPMENT REPAIRER. 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 Presented to OSH 03/10 with SANDRA with Cr peak at 4.9. Transferred to [facility] given concern for potential need for CVVH. Nephrology consulted here. Etiology of SANDRA at this point favored to be cardiorenal given improvement with diuresis. No casts on sediment that would be c/w ATN. HRS less likely with BPs on the higher side. AIN possible given WBCs on sediment. Noted to have low C3/C4 at OSH as well. With ongoing diuresis Cr has been down-trending, now to 2.5. No indication for METEOROLOGICAL EQUIPMENT REPAIRER. - Appreciate renal following & recs - Trend Cr on daily BMP - F/U repeat C3, C4; cryoglobulins; SPEP, SFLC; ASO screen; APLAS labs - Cont diuresis for goal 1-2L TBB negative; responding well to 40mg IV Lasix Assessment & Plan (03/20/2025 2:41 AM EDT): Assessment & Plan (03/20/2025 4:11 AM EDT): #SANDRA Patient was admitted to OSH with acute kidney injury, transferred to [facility] for consideration of CVVH if needed. Cr peaked at 4.9 before improving. Baseline Cr around 1.5. Nephrology was consulted who are unclear of true etiology of renal failure who believe at least part of presentation may be due to cardiorenal syndrome. Currently making adequate urine. - continue diuresis for at least 1-2L negative, hold off on further IVF - trend Cr - f/u complement C3, C4, lyme screen, lupus anticoagulant, anti-cardiolipin, cryoglobulins - Nephrology consulting, appreciate recs Acidosis 03/16/2025 Assessment & Plan (03/17/2025 9:04 AM EDT): - In the setting of high anion gap metabolic acidosis associated with SANDRA and liver failure component of lactic acid likely playing a role. Assessment & Plan (03/16/2025 8:43 AM EDT): - In the setting of high anion gap metabolic acidosis associated with SANDRA and liver failure component of lactic acid likely playing a role. Known medical problems 03/15/2025 Assessment & Plan (04/14/2025 1:16 PM EST): # Hx saddle PE # History of CVA Unprovoked PE in 2019 with pulmonary infarct in the RLL and RML, also c/b # CVA. Has been on apixaban since with plan for lifelong AC. Apixaban held on admission iso # coagulopathy and SDH. Started on heparin ggt for procedures and now transitioned back to home apixaban. - Continue apixaban 5 mg BID # MS Follows with [facility] neurology Dr. Carter for long-standing hx MS. Recent MRI brain 03/05 showed no changes in white matter lesions or evidence of progressive disease. - Continue modafinil 100 mg BID - Holding home amantadine, adderall for now as above # Asthma Follows with [facility] Dr Gutierrez, managed on azithromycin 250 mg daily and dupixent, not on any inhalers. No wheezing or cough currently, stable on RA. - Holding home azithromycin and dupixent for now; unclear when last dupixent dose was (q14 days) - Cont home singulair - Albuterol INH PRN # Chronic pain syndrome # Chronic right shoulder pain On MSIR 15 mg q8H PRN at home. - Continue home MSIR 15 mg Q8H PRN - Lidocaine patch daily - Voltaren gel QID # Raynaud's disease - Hold home sildenafil 20 mg TID given newly initiated metoprolol, monitor BP # Hypothyroidism TSH wnl 03/15. - Cont home levothyroxine 75 mcg qd Assessment & Plan (04/13/2025 4:34 PM EST): # Hx saddle PE # History of CVA Unprovoked PE in 2019 with pulmonary infarct in the RLL and RML, also c/b # CVA. Has been on apixaban since with plan for lifelong AC. Apixaban held on admission iso # coagulopathy and SDH. Started on heparin ggt for procedures and now transitioned back to home apixaban. - Continue apixaban 5 mg BID # MS Follows with [facility] neurology Dr. Carter for long-standing hx MS. Recent MRI brain 03/05 showed no changes in white matter lesions or evidence of progressive disease. - Continue modafinil 100 mg BID - Holding home amantadine, adderall for now as above # Asthma Follows with [facility] Dr Gutierrez, managed on azithromycin 250 mg daily and dupixent, not on any inhalers. No wheezing or cough currently, stable on RA. - Holding home azithromycin and dupixent for now; unclear when last dupixent dose was (q14 days) - Cont home singulair - Albuterol INH PRN # Chronic pain syndrome # Chronic right shoulder pain On MSIR 15 mg q8H PRN at home. - Continue home MSIR 15 mg Q8H PRN - Lidocaine patch daily - Voltaren gel QID # Raynaud's disease - Hold home sildenafil 20 mg TID given newly initiated metoprolol, monitor BP # Hypothyroidism TSH wnl 03/15. - Cont home levothyroxine 75 mcg qd Assessment & Plan (04/12/2025 3:55 PM EST): # Hx saddle PE # History of CVA Unprovoked PE in 2020 with pulmonary infarct in the RLL and RML, also c/b # CVA. Has been on apixaban since with plan for lifelong AC. Apixaban held on admission iso # coagulopathy and SDH. Started on heparin ggt in anticipation of RHC. Resumed home apixaban 04/05 - Continue apixaban 5 mg BID # MS Follows with [facility] neurology Dr. Carter for long-standing hx MS. Recent MRI brain 03/05 showed no changes in white matter lesions or evidence of progressive disease. - Resume modafinil - Holding home amantadine, adderall for now as above # Asthma Follows with [facility] Dr Gutierrez, managed on azithromycin 250 mg daily and dupixent, not on any inhalers. No wheezing or cough currently, stable on RA. - Holding home azithromycin and dupixent for now; unclear when last dupixent dose was (q14 days) - Cont home singulair - Albuterol INH PRN # Chronic pain syndrome # Chronic right shoulder pain On MSIR 15 mg q8H PRN at home. - Continue home MSIR 15 mg Q8H PRN - Lidocaine patch daily - Voltaren gel QID # Raynaud's disease - Resume home sildenafil 20 mg TID (ok to resume home dose per discussion with pharmacy) # Hypothyroidism TSH wnl 03/15. - Cont home levothyroxine 75 mcg qd Assessment & Plan (04/11/2025 6:03 PM EST): # Hx saddle PE # History of CVA Unprovoked PE in 2019 with pulmonary infarct in the RLL and RML, also c/b # CVA. Has been on apixaban since with plan for lifelong AC. Apixaban held on admission iso # coagulopathy and SDH. Started on heparin ggt in anticipation of RHC. Resumed home apixaban 04/05 - Continue apixaban 5 mg BID # MS Follows with [facility] neurology Dr. Carter for long-standing hx MS. Recent MRI brain 03/05 showed no changes in white matter lesions or evidence of progressive disease. - Resume modafinil - Holding home amantadine, adderall for now as above # Asthma Follows with [facility] Dr Gutierrez, managed on azithromycin 250 mg daily and dupixent, not on any inhalers. No wheezing or cough currently, stable on RA. - Holding home azithromycin and dupixent for now; unclear when last dupixent dose was (q14 days) - Cont home singulair - Albuterol INH PRN # Chronic pain syndrome On MSIR 15 mg q8H PRN at home. - Increase MSIR to home dose 15 mg Q8H PRN # Raynaud's disease - Resume home sildenafil 20 mg TID (ok to resume home dose per discussion with pharmacy) # Hypothyroidism TSH wnl 03/15. - Cont home levothyroxine 75 mcg qd Assessment & Plan (04/10/2025 4:46 PM EST): # Hx saddle PE # History of CVA Unprovoked PE in 2019 with pulmonary infarct in the RLL and RML, also c/b # CVA. Has been on apixaban since with plan for lifelong AC. Apixaban held on admission iso # coagulopathy and SDH. Started on heparin ggt in anticipation of RHC. Resumed home apixaban 04/05 - Continue apixaban 5 mg BID # MS Follows with [facility] neurology Dr. Carter for long-standing hx MS. Recent MRI brain 03/05 showed no changes in white matter lesions or evidence of progressive disease. - Resume modafinil - Holding home amantadine, adderall for now as above # Asthma Follows with [facility] Dr Gutierrez, managed on azithromycin 250 mg daily and dupixent, not on any inhalers. No wheezing or cough currently, stable on RA. - Holding home azithromycin and dupixent for now; unclear when last dupixent dose was (q14 days) - Cont home singulair - Albuterol INH PRN # Chronic pain syndrome On MSIR 15 mg q8H PRN at home. - Increase MSIR to home dose 15 mg Q8H PRN # Raynaud's disease - HOLD home sildenafil 20 mg TID, consider resuming 04/11 # Hypothyroidism TSH wnl 03/15. - Cont home levothyroxine 75 mcg qd Assessment & Plan (04/09/2025 1:07 PM EDT): #Hx saddle PE #History of CVA Unprovoked PE in 2019 with pulmonary infarct in the RLL and RML, also c/b # CVA. Has been on apixaban since with plan for lifelong AC. Apixaban held on admission iso # coagulopathy and SDH. Started on heparin ggt in anticipation of RHC. Resumed home apixaban 04/05 - Continue apixaban 5 mg BID #MS Follows with [facility] neurology Dr. Carter for long-standing hx MS. Recent MRI brain 03/05 showed no changes in white matter lesions or evidence of progressive disease. - Holding home modafinil, amantadine, adderall for now as above #Asthma Follows with [facility] Dr Gutierrez, managed on azithromycin 250mg daily and dupixent, not on any inhalers. No wheezing or cough currently, stable on RA. - Holding home azithromycin and dupixent for now; unclear when last dupixent dose was (q14 days) - Cont home singulair - Albuterol INH PRN #Chronic pain syndrome On MSIR 15mg q8H PRN at home. -Continue on reduced dose 10mg q8H #Raynaud's disease - HOLD home sildenafil 20mg TID #Hypothyroidism TSH wnl 03/15. 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 Has been on apixaban since with plan for lifelong AC. Apixaban held on admission iso # coagulopathy and SDH. Started on heparin ggt in anticipation of RHC. Resumed home apixaban 04/05 - Continue apixaban 5 mg BID #MS Follows with [facility] neurology Dr. Carter for long-standing hx MS. Recent MRI brain 03/05 showed no changes in white matter lesions or evidence of progressive disease. - Holding home modafinil, amantadine, adderall for now as above #Asthma Follows with [facility] Dr Gutierrez, managed on azithromycin 250mg daily and dupixent, not on any inhalers. No wheezing or cough currently, stable on RA. - Holding home azithromycin and dupixent for now; unclear when last dupixent dose was (q14 days) - Cont home singulair - Albuterol INH PRN #Chronic pain syndrome On MSIR 15mg q8H PRN at home. - Cont reduced dose PO morphine 5mg TID PRN moderate pain for now iso # delirium + IV dilaudid discontinued as pt was not requiring. #Raynaud's disease - HOLD home sildenafil 20mg TID #Hypothyroidism TSH wnl 03/15. 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 Has been on apixaban since with plan for lifelong AC. Apixaban held on admission iso # coagulopathy and SDH. Started on heparin ggt in anticipation of RHC. Resumed home apixaban 04/05 - Continue apixaban 5 mg BID #MS Follows with [facility] neurology Dr. Carter for long-standing hx MS. Recent MRI brain 03/05 showed no changes in white matter lesions or evidence of progressive disease. - Holding home modafinil, amantadine, adderall for now as above #Asthma Follows with [facility] Dr Gutierrez, managed on azithromycin 250mg daily and dupixent, not on any inhalers. No wheezing or cough currently, stable on RA. - Holding home azithromycin and dupixent for now; unclear when last dupixent dose was (q14 days) - Cont home singulair - Albuterol INH PRN #Chronic pain syndrome On MSIR 15mg q8H PRN at home. - Cont reduced dose PO morphine 5mg TID PRN moderate pain for now iso # delirium + IV dilaudid discontinued as pt was not requiring. #Raynaud's disease - HOLD home sildenafil 20mg TID #Hypothyroidism TSH wnl 03/15. 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 Has been on apixaban since with plan for lifelong AC. Apixaban held on admission iso # coagulopathy and SDH. Started on heparin ggt in anticipation of RHC. Resumed home apixaban 04/05 - Continue apixaban 5 mg BID #MS Follows with [facility] neurology Dr. Carter for long-standing hx MS. Recent MRI brain 03/05 showed no changes in white matter lesions or evidence of progressive disease. - Holding home modafinil, amantadine, adderall for now as above #Asthma Follows with [facility] Dr Gutierrez, managed on azithromycin 250mg daily and dupixent, not on any inhalers. No wheezing or cough currently, stable on RA. - Holding home azithromycin and dupixent for now; unclear when last dupixent dose was (q14 days) - Cont home singulair - Albuterol INH PRN #Chronic pain syndrome On MSIR 15mg q8H PRN at home. - Cont reduced dose PO morphine 5mg TID PRN moderate pain for now iso # delirium + IV dilaudid discontinued as pt was not requiring. #Raynaud's disease - HOLD home sildenafil 20mg TID #Hypothyroidism TSH wnl 03/15. - Cont home levothyroxine 75mcg qd Assessment & Plan (04/05/2025 8:06 AM EDT): #Hx saddle PE #History of CVA Unprovoked PE in 2019 with pulmonary infarct in the RLL and RML, also c/b # CVA. Has been on apixaban since with plan for lifelong AC. Apixaban held on admission iso # coagulopathy, now holding in setting of SDH, restarted 04/01 at reduced dose. Stopped in setting or RHC, Started on therapeutic Lovenox. - Resumed home apixiban, now on therapeutic lovenox. #MS Follows with [facility] neurology Dr. Carter for long-standing hx MS. Recent MRI brain 03/05 showed no changes in white matter lesions or evidence of progressive disease. - Holding home modafinil, amantadine, adderall for now as above #Asthma Follows with [facility] Dr Gutierrez, managed on azithromycin 250mg daily and dupixent, not on any inhalers. No wheezing or cough currently, stable on RA. - Holding home azithromycin and dupixent for now; unclear when last dupixent dose was (q14 days) - Cont home singulair - Albuterol INH PRN #Chronic pain syndrome On MSIR 15mg q8H PRN at home. - Cont reduced dose PO morphine 5mg TID PRN moderate pain for now iso # delirium + IV dilaudid discontinued as pt was not requiring. #Raynaud's disease - HOLD home sildenafil 20mg TID #Hypothyroidism TSH wnl 03/15. - Cont home levothyroxine 75mcg qd Assessment & Plan (04/04/2025 4:38 PM EDT): #Hx saddle PE #History of CVA Unprovoked PE in 2019 with pulmonary infarct in the RLL and RML, also c/b # CVA. Has been on apixaban since with plan for lifelong AC. Apixaban held on admission iso # coagulopathy, now holding in setting of SDH, restarted 04/01 at reduced dose. Stopped in setting or RHC, Started on therapeutic Lovenox. - Resumed home apixiban, now on therapeutic lovenox. #MS Follows with [facility] neurology Dr. Carter for long-standing hx MS. Recent MRI brain 03/05 showed no changes in white matter lesions or evidence of progressive disease. - Holding home modafinil, amantadine, adderall for now as above #Asthma Follows with [facility] Dr Gutierrez, managed on azithromycin 250mg daily and dupixent, not on any inhalers. No wheezing or cough currently, stable on RA. - Holding home azithromycin and dupixent for now; unclear when last dupixent dose was (q14 days) - Cont home singulair - Albuterol INH PRN #Chronic pain syndrome On MSIR 15mg q8H PRN at home. - Cont reduced dose PO morphine 5mg TID PRN moderate pain for now iso # delirium + IV dilaudid discontinued as pt was not requiring. #Raynaud's disease - HOLD home sildenafil 20mg TID #Hypothyroidism TSH wnl 03/15. - Cont home levothyroxine 75mcg qd Assessment & Plan (04/03/2025 4:54 PM EDT): #Hx saddle PE #History of CVA Unprovoked PE in 2019 with pulmonary infarct in the RLL and RML, also c/b # CVA. Has been on apixaban since with plan for lifelong AC. Apixaban held on admission iso # coagulopathy, now holding in setting of SDH, restarted 04/01 at reduced dose. Stopped in setting or RHC, Started on therapeutic Lovenox. - Resumed home apixiban, now on therapeutic lovenox. #MS Follows with [facility] neurology Dr. Carter for long-standing hx MS. Recent MRI brain 03/05 showed no changes in white matter lesions or evidence of progressive disease. - Holding home modafinil, amantadine, adderall for now as above #Asthma Follows with [facility] Dr Gutierrez, managed on azithromycin 250mg daily and dupixent, not on any inhalers. No wheezing or cough currently, stable on RA. - Holding home azithromycin and dupixent for now; unclear when last dupixent dose was (q14 days) - Cont home singulair - Albuterol INH PRN #Chronic pain syndrome On MSIR 15mg q8H PRN at home. - Cont reduced dose PO morphine 5mg TID PRN moderate pain for now iso # delirium + IV dilaudid discontinued as pt was not requiring. #Raynaud's disease - HOLD home sildenafil 20mg TID #Hypothyroidism TSH wnl 03/15. - Cont home levothyroxine 75mcg qd Assessment & Plan (04/02/2025 10:41 AM EDT): #Hx saddle PE #History of CVA Unprovoked PE in 2019 with pulmonary infarct in the RLL and RML, also c/b # CVA. Has been on apixaban since with plan for lifelong AC. Apixaban held on admission iso # coagulopathy, now holding in setting of SDH. - Resume home apixiban #MS Follows with [facility] neurology Dr. Carter for long-standing hx MS. Recent MRI brain 03/05 showed no changes in white matter lesions or evidence of progressive disease. - Holding home modafinil, amantadine, adderall for now as above #Asthma Follows with [facility] Dr Gutierrez, managed on azithromycin 250mg daily and dupixent, not on any inhalers. No wheezing or cough currently, stable on RA. - Holding home azithromycin and dupixent for now; unclear when last dupixent dose was (q14 days) - Cont home singulair - Albuterol INH PRN #Chronic pain syndrome On MSIR 15mg q8H PRN at home. - Cont reduced dose PO morphine 5mg TID PRN moderate pain for now iso # delirium + IV dilaudid 0.2-0.5mg Q3H PRN severe pain #Raynaud's disease - HOLD home sildenafil 20mg TID #Hypothyroidism TSH wnl 03/15. - Cont home levothyroxine 75mcg qd Assessment & Plan (04/01/2025 12:25 PM EDT): #Hx saddle PE #History of CVA Unprovoked PE in 2019 with pulmonary infarct in the RLL and RML, also c/b # CVA. Has been on apixaban since with plan for lifelong AC. Apixaban held on admission iso # coagulopathy, now holding in setting of SDH. - Resume home apixiban #MS Follows with [facility] neurology Dr. Carter for long-standing hx MS. Recent MRI brain 03/05 showed no changes in white matter lesions or evidence of progressive disease. - Holding home modafinil, amantadine, adderall for now as above #Asthma Follows with [facility] Dr Gutierrez, managed on azithromycin 250mg daily and dupixent, not on any inhalers. No wheezing or cough currently, stable on RA. - Holding home azithromycin and dupixent for now; unclear when last dupixent dose was (q14 days) - Cont home singulair - Albuterol INH PRN #Chronic pain syndrome On MSIR 15mg q8H PRN at home. - Cont reduced dose PO morphine 5mg TID PRN moderate pain for now iso # delirium + IV dilaudid 0.2-0.5mg Q3H PRN severe pain #Raynaud's disease - HOLD home sildenafil 20mg TID #Hypothyroidism TSH wnl 03/15. - Cont home levothyroxine 75mcg qd Assessment & Plan (03/31/2025 4:37 PM EDT): #Hx saddle PE #History of CVA Unprovoked PE in 2019 with pulmonary infarct in the RLL and RML, also c/b # CVA. Has been on apixaban since with plan for lifelong AC. Apixaban held on admission iso # coagulopathy, now holding in setting of SDH. - Resuming home apixiban tomorrow 04/01 #MS Follows with [facility] neurology Dr. Carter for long-standing hx MS. Recent MRI brain 03/05 showed no changes in white matter lesions or evidence of progressive disease. - Holding home modafinil, amantadine, adderall for now as above #Asthma Follows with [facility] Dr Gutierrez, managed on azithromycin 250mg daily and dupixent, not on any inhalers. No wheezing or cough currently, stable on RA. - Holding home azithromycin and dupixent for now; unclear when last dupixent dose was (q14 days) - Cont home singulair - Albuterol INH PRN #Chronic pain syndrome On MSIR 15mg q8H PRN at home. - Cont reduced dose PO morphine 5mg TID PRN moderate pain for now iso # delirium + IV dilaudid 0.2-0.5mg Q3H PRN severe pain #Raynaud's disease - HOLD home sildenafil 20mg TID #Hypothyroidism TSH wnl 03/15. - Cont home levothyroxine 75mcg qd Assessment & Plan (03/30/2025 7:04 AM EDT): #Hx saddle PE #History of CVA Unprovoked PE in 2019 with pulmonary infarct in the RLL and RML, also c/b # CVA. Has been on apixaban since with plan for lifelong AC. Apixaban held on admission iso # coagulopathy, now holding in setting of SDH. - Apixaban & heparin gtt held iso SDH, resume as able. #MS Follows with [facility] neurology Dr. Carter for long-standing hx MS. Recent MRI brain 03/05 showed no changes in white matter lesions or evidence of progressive disease. - Holding home modafinil, amantadine, adderall for now as above #Asthma Follows with [facility] Dr Gutierrez, managed on azithromycin 250mg daily and dupixent, not on any inhalers. No wheezing or cough currently, stable on RA. - Holding home azithromycin and dupixent for now; unclear when last dupixent dose was (q14 days) - Cont home singulair - Albuterol INH PRN #Chronic pain syndrome On MSIR 15mg q8H PRN at home. - Cont reduced dose PO morphine 5mg TID PRN moderate pain for now iso # delirium + IV dilaudid 0.2-0.5mg Q3H PRN severe pain #Raynaud's disease - Cont home sildenafil 20mg TID #Hypothyroidism TSH wnl 03/15. - Cont home levothyroxine 75mcg qd Assessment & Plan (03/29/2025 8:15 AM EDT): #Hx saddle PE #History of CVA Unprovoked PE in 2019 with pulmonary infarct in the RLL and RML, also c/b # CVA. Has been on apixaban since with plan for lifelong AC. Apixaban held on admission iso # coagulopathy, now holding in setting of SDH. - Apixaban & heparin gtt held iso SDH, resume as able. #MS Follows with [facility] neurology Dr. Carter for long-standing hx MS. Recent MRI brain 03/05 showed no changes in white matter lesions or evidence of progressive disease. - Holding home modafinil, amantadine, adderall for now as above #Asthma Follows with [facility] Dr Gutierrez, managed on azithromycin 250mg daily and dupixent, not on any inhalers. No wheezing or cough currently, stable on RA. - Holding home azithromycin and dupixent for now; unclear when last dupixent dose was (q14 days) - Cont home singulair - Albuterol INH PRN #Chronic pain syndrome On MSIR 15mg q8H PRN at home. - Cont reduced dose PO morphine 5mg TID PRN moderate pain for now iso # delirium + IV dilaudid 0.2-0.5mg Q3H PRN severe pain #Raynaud's disease - Cont home sildenafil 20mg TID #Hypothyroidism TSH wnl 03/15. - Cont home levothyroxine 75mcg qd Assessment & Plan (03/28/2025 6:38 PM EDT): #Hx saddle PE #History of CVA Unprovoked PE in 2019 with pulmonary infarct in the RLL and RML, also c/b # CVA. Has been on apixaban since with plan for lifelong AC. Apixaban held on admission iso # coagulopathy, now holding in setting of SDH. - Apixaban & heparin gtt held iso SDH, resume as able. #MS Follows with [facility] neurology Dr. Carter for long-standing hx MS. Recent MRI brain 03/05 showed no changes in white matter lesions or evidence of progressive disease. - Holding home modafinil, amantadine, adderall for now as above #Asthma Follows with [facility] Dr Gutierrez, managed on azithromycin 250mg daily and dupixent, not on any inhalers. No wheezing or cough currently, stable on RA. - Holding home azithromycin and dupixent for now; unclear when last dupixent dose was (q14 days) - Cont home singulair - Albuterol INH PRN #Chronic pain syndrome On MSIR 15mg q8H PRN at home. - Cont reduced dose PO morphine 5mg TID PRN moderate pain for now iso # delirium + IV dilaudid 0.2-0.5mg Q3H PRN severe pain #Raynaud's disease - Cont home sildenafil 20mg TID #Hypothyroidism TSH wnl 03/15. - Cont home levothyroxine 75mcg qd Assessment & Plan (03/27/2025 7:17 AM EDT): #MS Follows with [facility] neurology Dr. Carter for long-standing hx MS. Recent MRI brain 03/05 showed no changes in white matter lesions or evidence of progressive disease. - Holding home modafinil, amantadine, adderall for now #Asthma Follows with [facility] Dr Gutierrez, managed on azithromycin 250mg daily and dupixent, not on any inhalers. No wheezing or cough currently, stable on RA. - Holding home azithromycin and dupixent for now; unclear when last dupixent dose was (q14 days) - Cont home singulair - Albuterol INH PRN #Chronic pain syndrome On MSIR 15mg q8H PRN at home. - Cont reduced dose PO morphine 5mg TID PRN moderate pain for now iso # delirium + IV dilaudid 0.2-0.5mg Q3H PRN severe pain #Raynaud's disease - Cont home sildenafil 20mg TID #Hypothyroidism TSH wnl 03/15. - Cont home levothyroxine 75mcg qd Assessment & Plan (03/26/2025 6:37 PM EDT): #MS Follows with [facility] neurology Dr. Carter for long-standing hx MS. Recent MRI brain 03/05 showed no changes in white matter lesions or evidence of progressive disease. - Holding home modafinil, amantadine, adderall for now #Asthma Follows with [facility] Dr Gutierrez, managed on azithromycin 250mg daily and dupixent, not on any inhalers. No wheezing or cough currently, stable on RA. - Holding home azithromycin and dupixent for now; unclear when last dupixent dose was (q14 days) - Cont home singulair - Albuterol INH PRN #Chronic pain syndrome On MSIR 15mg q8H PRN at home. - Cont reduced dose PO morphine 5mg TID PRN moderate pain for now iso # delirium + IV dilaudid 0.2-0.5mg Q3H PRN severe pain #Raynaud's disease - Cont home sildenafil 20mg TID #Hypothyroidism TSH wnl 03/15. - Cont home levothyroxine 75mcg qd Assessment & Plan (03/25/2025 12:00 PM EDT): #MS Follows with [facility] neurology Dr. Carter for long-standing hx MS. Recent MRI brain 03/05 showed no changes in white matter lesions or evidence of progressive disease. - Holding home modafinil, amantadine, adderall for now #Asthma Follows with [facility] Dr Gutierrez, managed on azithromycin 250mg daily and dupixent, not on any inhalers. No wheezing or cough currently, stable on RA. - Holding home azithromycin and dupixent for now; unclear when last dupixent dose was (q14 days) - Cont home singulair - Albuterol INH PRN #Chronic pain syndrome On MSIR 15mg q8H PRN at home. - Cont reduced dose PO morphine 5mg TID PRN moderate pain for now iso # delirium + IV dilaudid 0.2-0.5mg q3H PRN severe pain #Raynaud's disease - Cont home sildenafil 20mg TID #Hypothyroidism TSH wnl 03/15. - Cont home levothyroxine 75mcg qd Assessment & Plan (03/24/2025 2:39 PM EDT): #MS Follows with [facility] neurology Dr. Carter for long-standing hx MS. Recent MRI brain 03/05 showed no changes in white matter lesions or evidence of progressive disease. - Holding home amantadine, adderall for now - Cont home modafinil 100mg BID #Asthma Follows with [facility] Dr Gutierrez, managed on azithromycin 250mg daily and dupixent, not on any inhalers. No wheezing or cough currently, stable on RA. - Holding home azithromycin and dupixent for now; unclear when last dupixent dose was (q14 days) - Cont home singulair - Albuterol INH PRN #Chronic pain syndrome On MSIR 15mg q8H PRN at home. - Cont reduced dose PO morphine 5mg TID PRN moderate pain for now iso # delirium + IV dilaudid 0.2-0.5mg q3H PRN severe pain #Raynaud's disease - Cont home sildenafil 20mg TID #Hypothyroidism TSH wnl 03/15. - Cont home levothyroxine 75mcg qd Assessment & Plan (03/23/2025 9:02 AM EDT): #MS Follows with [facility] neurology Dr. Carter for long-standing hx MS. Recent MRI brain 03/05 showed no changes in white matter lesions or evidence of progressive disease. - Holding home amantadine, adderall for now - Cont home modafinil 100mg BID #Asthma Follows with [facility] Dr Gutierrez, managed on azithromycin 250mg daily and dupixent, not on any inhalers. No wheezing or cough currently, stable on RA. - Holding home azithromycin and dupixent for now; unclear when last dupixent dose was (q14 days) - Cont home singulair - Albuterol INH PRN #Chronic pain syndrome On MSIR 15mg q8H PRN at home. - Cont reduced dose PO morphine 5mg TID PRN moderate pain for now iso # delirium + IV dilaudid 0.2-0.5mg q3H PRN severe pain #Raynaud's disease - Cont home sildenafil 20mg TID #Hypothyroidism TSH wnl 03/15. - Cont home levothyroxine 75mcg qd Assessment & Plan (03/22/2025 2:00 PM EDT): #MS Follows with [facility] neurology Dr. Carter for long-standing hx MS. Recent MRI brain 03/05 showed no changes in white matter lesions or evidence of progressive disease. - Holding home amantadine, adderall for now - Cont home modafinil 100mg BID #Asthma Follows with [facility] Dr Gutierrez, managed on azithromycin 250mg daily and dupixent, not on any inhalers. No wheezing or cough currently, stable on RA. - Holding home azithromycin and dupixent for now; unclear when last dupixent dose was (q14 days) - Cont home singulair - Albuterol INH PRN #Chronic pain syndrome On MSIR 15mg q8H PRN at home. - Cont reduced dose PO morphine 5mg TID PRN moderate pain for now iso # delirium + IV dilaudid 0.2-0.5mg q3H PRN severe pain #Raynaud's disease - Cont home sildenafil 20mg TID #Hypothyroidism TSH wnl 03/15. - Cont home levothyroxine 75mcg qd Assessment & Plan (03/20/2025 3:53 AM EDT): #MS - cont home modafinil #DM - hold home trulicity, POC glucose and RISS Assessment & Plan (03/16/2025 3:56 PM EDT): Anemia Workup includes iron, iron saturation, TIBC, folate, B12, ferritin all within normal limits. Recent colonoscopy and endoscopy were unremarkable.Reported redish diarrhea but HH stable. - Will continue to monitor H&H as it appears to be stable. - Will likely need outpatient capsule endoscopy. - Follow-up with GI. Multiple sclerosis -Not on any treatment at this time Chronic pain syndrome -Continue morphine DM2 (diabetes mellitus, type 2) -Trulicity on hold (there was a prior ICU hospitalization for persistent hypoglycemia and patient was advised to discontinue Trulicity however it appears that she is still currently on it) HgbA1c is 5.8. Blood sugars here thus far been well-controlled -Monitor point of care, cover with insulin sliding scale as needed Essential hypertension -BP controlled -Spironolactone on hold for sandra Asthma - Stable. Currently no wheezing -Continue albuterol, hypersal, empiric azithro History of pulmonary embolus (PE) -Continue Eliquis(dosing is for PE) Bradycardia Patient monitored on telemetry and noted to have bradycardia with heart rate in the 40 consistently throughout the day. On review with monitor check patient appears to be in junctional rhythm but asymptomatic. -Avoiding gianni blocking drugs, clonidine. -Cardiology following,for now improving so doesn't need immediate attention Assessment & Plan (03/15/2025 5:12 PM EDT): Anemia Workup includes iron, iron saturation, TIBC, folate, B12, ferritin all within normal limits. Recent colonoscopy and endoscopy were unremarkable.Reported redish diarrhea but HH stable. - Will continue to monitor H&H as it appears to be stable. - Will likely need outpatient capsule endoscopy. - Follow-up with GI. Multiple sclerosis -Not on any treatment at this time Chronic pain syndrome -Continue morphine DM2 (diabetes mellitus, type 2) -Trulicity on hold (there was a prior ICU hospitalization for persistent hypoglycemia and patient was advised to discontinue Trulicity however it appears that she is still currently on it) HgbA1c is 5.8. Blood sugars here thus far been well-controlled -Monitor point of care, cover with insulin sliding scale as needed Essential hypertension -BP controlled -Spironolactone on hold for sandra Asthma - Stable. Currently no wheezing -Continue albuterol, hypersal, empiric azithro History of pulmonary embolus (PE) -Continue Eliquis(dosing is for PE) Bradycardia Patient monitored on telemetry and noted to have bradycardia with heart rate in the 40 consistently throughout the day. On review with monitor check patient appears to be in junctional rhythm but asymptomatic. Blood pressure is borderline. -Avoiding gianni blocking drugs, clonidine. -Cardiology following, if not improving off meds, will need pacer New onset of congestive heart failure 03/15/2025 Drug-induced injury of liver 03/14/2025 Assessment & Plan (03/16/2025 3:56 PM EDT): LFTs trending up after last discharge 03/08, negative hepatitis A, B, C panel. Right upper quadrant ultrasound limited but showing s/p cholecystectomy. CBD mildly dilated thought to be postcholecystectomy state. MRCP without acute finding. GI suspects this might be drug-induced liver injury from macrobid or fosfomycin. Not clear that she took prescribed antibiotics. Concurrent kidney injury as above. - further work up: as above - Continue to trend LFTs - Supportive care - GI following: hold off liver biopsy for now - Monitor for symptoms of hepatic decompensation (encephalopathy, jaundice, INR, ammonia) INR and ammonia up, vitamin k and lactulose Assessment & Plan (03/15/2025 5:12 PM EDT): LFTs trending up after last discharge 03/08, negative hepatitis A, B, C panel. Right upper quadrant ultrasound limited but showing s/p cholecystectomy. CBD mildly dilated thought to be postcholecystectomy state. MRCP without acute finding. GI suspects this might be drug-induced liver injury from macrobid. Concurrent kidney injury as above. - further work up: as above - Continue to trend LFTs - Supportive care - GI following: hold off liver biopsy for now - Monitor for symptoms of hepatic decompensation (encephalopathy, jaundice, INR, ammonia) Assessment & Plan (03/14/2025 6:54 PM EDT): LFTs trending up after last discharge 03/08, negative hepatitis A, B, C panel. Right upper quadrant ultrasound limited but showing s/p cholecystectomy. CBD mildly dilated thought to be postcholecystectomy state. MRCP without acute finding. GI suspects this might be drug-induced liver injury from macrobid. - Continue to trend LFTs - Supportive care - GI following - Monitor for symptoms of hepatic decompensation (encephalopathy, jaundice, INR, ammonia) Tinnitus 03/14/2025 Assessment & Plan (03/16/2025 3:48 PM EDT): Left Ear Tinnitus: New complaint of ringing in left ear. No associated dizziness, vertigo, hearing loss, or otalgia. Could be medication-related, vascular, or related to systemic illness -Basic hearing exam at bedside -Review med list (modafinil, amphetamines, etc.) for ototoxicity -No inpatient ENT, outpatient ENT referral if persistent Assessment & Plan (03/15/2025 5:12 PM EDT): Left Ear Tinnitus: New complaint of ringing in left ear. No associated dizziness, vertigo, hearing loss, or otalgia. Could be medication-related, vascular, or related to systemic illness -Basic hearing exam at bedside -Review med list (modafinil, amphetamines, etc.) for ototoxicity -No inpatient ENT, outpatient ENT referral if persistent Assessment & Plan (03/14/2025 6:54 PM EDT): Left Ear Tinnitus: New complaint of ringing in left ear. No associated dizziness, vertigo, hearing loss, or otalgia. Could be medication-related, vascular, or related to systemic illness -Basic hearing exam at bedside -Review med list (modafinil, amphetamines, etc.) for ototoxicity -Outpatient ENT referral if persistent Bradycardia 03/11/2025 Assessment & Plan (03/14/2025 6:54 PM EDT): Patient monitored on telemetry and noted to have bradycardia with heart rate in the 40 consistently throughout the day. On review with monitor check patient appears to be in junctional rhythm but asymptomatic. Blood pressure is borderline. -Avoiding gianni blocking drugs, clonidine. -Cardiology following, if not improving off meds, will need pacer. Assessment & Plan (03/13/2025 3:14 PM EDT): Patient monitored on telemetry and noted to have bradycardia with heart rate in the 40 consistently throughout the day. On review with monitor check patient appears to be in junctional rhythm but asymptomatic. Blood pressure is borderline. Avoiding gianni blocking drugs. Stopping clonidine 03/13. Cardiology following, if not improving off meds, will need pacer. Assessment & Plan (03/12/2025 4:32 PM EDT): Patient monitored on telemetry and noted to have bradycardia with heart rate in the 40 consistently throughout the day. On review with monitor check patient appears to be in junctional rhythm but asymptomatic. Blood pressure is borderline. Avoiding gianni blocking drugs. May need to remove the clonidine. Cardiology aware and following Assessment & Plan (03/11/2025 5:55 PM EDT): Patient monitored on telemetry and noted to have bradycardia with heart rate in the 40 consistently throughout the day. On review with monitor check patient appears to be in junctional rhythm but asymptomatic. Blood pressure is borderline. -Will review with cardiology question bradycardia contributing to cardiac output and SANDRA on falls. May need pacemaker. SANDRA (acute kidney injury) 03/10/2025 Assessment & Plan (03/17/2025 9:04 AM EDT): - Labs pending this morning, SANDRA unclear urine output at this point clinically remains unchanged in acute delirium, rising transaminitis consistent with metabolic encephalopathy. Increased ammonia levels 97. -Coagulopathic transaminitis is noted workup in progress, given the clinical course in the context of hepatic encephalopathy and SANDRA further diagnostics such as tissue biopsy will make sense including liver biopsy, presently not entirely clear if renal biopsy would make a difference in the diagnosis and therapy. Will add LDH haptoglobin consider tick panel. - If renal parameters worsening or no improvement dialysis not available here today, I would highly suggest to consider transfer patient to our liver center in [place] - Persistent lower extremity edema proteinuria not overwhelming consider echocardiogram rule out R>L heart failure. Assessment & Plan (03/16/2025 3:56 PM EDT): SANDRA on CKD with creatinine up trending (Cr baseline 1.4, 03/08), 4.7, 4.5, 4.8 . No urinary retention. Renal bladder ultrasound no obstruction, no hydronephrosis. Small/volume ascites noted. Initially worked on likely prerenal azotemia due to intravascular depletion (dry exam), despite elevated BNP, receiving IVF but reporting weight gain, oligouria, persistent weakness. S/P IVF at 100 mL/hr, now off -> encourage PO - further workup: LKM1, GILBERTO (positive), Anti-dsDNA, ANCA (c-ANCA, p-ANCA), Anti- GBM antibody, Complement levels (C3, C4), ASO titers (post-streptococcal), Cryoglobulins, Hepatitis B & C (NR), SPEP, UPEP -Daily renal panel, monitor BUN/Cr trend -Hold nephrotoxic meds: spironolactone, amantadine -All current meds renally dosed -- continue monitoring -Consider renal biopsy ? cannot happen until INR improved Michelle <20 perhaps indicating hypovolemia Acidosis as well Will resuscitate with D5W with sodium bicarb Assessment & Plan (03/16/2025 8:43 AM EDT): - Labs showing mild improvement in SANDRA unclear urine output at this point unfortunately remains in acute delirium, rising transaminitis consistent with metabolic encephalopathy. Increased ammonia levels 97. -Coagulopathic transaminitis is noted workup in progress, given the clinical course in the context of hepatic encephalopathy and SANDRA further diagnostics such as tissue biopsy will make sense including liver biopsy, presently not entirely clear if renal biopsy would make a difference in the diagnosis and therapy. Will add LDH haptoglobin consider tick panel. -I agree with vitamin K, consider trial of D5W +3 A of sodium bicarbonate at 75 mL/h x 1 L if hypoxemia signs consider a trial of IV furosemide 80 mg IVP. Fortunately at present time no acute dialysis requirements however if no improvement may require renal replacement therapy in the next 24 hours. -I would highly suggest to consider transfer patient to our liver center in [place] - Persistent lower extremity edema proteinuria not overwhelming consider echocardiogram rule out R>L heart failure. Assessment & Plan (03/15/2025 5:12 PM EDT): SANDRA on CKD with creatinine up trending (Cr baseline 1.4, 03/08), 4.7, 4.5, 4.8 today. No urinary retention. Renal bladder ultrasound no obstruction, no hydronephrosis. Small/volume ascites noted. Initially worked on likely prerenal azotemia due to intravascular depletion (dry exam), despite elevated BNP, receiving IVF but reporting weight gain, oligouria, persistent weakness. S/P IVF at 100 mL/hr, now off -> encourage PO - further workup: LKM1, GILBERTO (positive), Anti-dsDNA, ANCA (c-ANCA, p-ANCA), Anti- GBM antibody, Complement levels (C3, C4), ASO titers (post-streptococcal), Cryoglobulins, Hepatitis B & C (NR), SPEP, UPEP -Daily renal panel, monitor BUN/Cr trend -Hold nephrotoxic meds: spironolactone, amantadine -All current meds renally dosed -- continue monitoring -Consider renal biopsy ? discussed with renal, but patient asked to think about it tonight, while pending work ups as above -Nephrology following: consider renal biopsy but no CVVD Assessment & Plan (03/15/2025 8:46 AM EDT): - Labs pending this morning however creatinine levels starting to show some improvement - Continue to push p.o. intake good consider starting a diuretic torsemide 20 mg p.o. twice daily hold off on the spironolactone. - Strict I's and O's bladder scans every shift -Low-sodium diet - Persistent lower extremity edema proteinuria not overwhelming consider echocardiogram rule out R>L heart failure. Assessment & Plan (03/14/2025 6:54 PM EDT): SANDRA on CKD with creatinine up trending (Cr baseline 1.4, 03/08), peaked 4.7, down trending 4.5 today. No urinary retention. Renal bladder ultrasound no obstruction, no hydronephrosis. Small/volume ascites noted. Likely prerenal azotemia due to intravascular depletion (dry exam), despite elevated BNP. - S/P IVF at 100 mL/hr, now off -> encourage PO -Daily renal panel, monitor BUN/Cr trend -Hold nephrotoxic meds: spironolactone, amantadine -All current meds renally dosed -- continue monitoring -Consider albumin if poor response to fluids and continued third spacing ? DW urology/renal -Nephrology following: current no plans of renal biopsy or CVVD Assessment & Plan (03/14/2025 10:42 AM EDT): - Creatinine levels starting to show some improvement - Would hold off on further IV fluids keep pushing p.o. intake - Continue to hold off spironolactone and clonidine. - Strict I's and O's bladder scans every shift - Repeat urinalysis and urine sodium. Assessment & Plan (03/13/2025 3:14 PM EDT): -Patient with CKD and baseline creatinine of around 1.4, 03/08 her creatinine was 1.9 increased to 3.6. Creatinine stable at 4.7 today. -Bladder scan showed low PVRs in the 60s and patient has not voided overnight. No evidence of urinary retention. She must be third spacing the fluid. Will DW urology if albumin might help in the short term. SANDRA likely secondary to prerenal azotemia as patient is very dry despite elevated BNP. -IV fluids 100 mL/h - Repeat renal labs in a.m. - Renal bladder ultrasound no obstruction, no hydronephrosis. Small/volume ascites noted -Continue to hold spironolactone and amantadine. Her meds are all renally dosed. Assessment & Plan (03/12/2025 4:32 PM EDT): -Patient with CKD and baseline creatinine of around 1.4, 03/08 her creatinine was 1.9 increased to 3.6. Creatinine stable at 4.7 today. -Bladder scan showed low PVRs in the 60s and patient has not voided overnight. No evidence of urinary retention. Continuing IV fluids for now. SANDRA likely secondary to prerenal azotemia as patient is very dry despite elevated BNP. -IV fluids 100 mL/h - Repeat renal labs in a.m. - Renal bladder ultrasound to look for obstruction, no hydronephrosis. Small/volume ascites noted -Continue to hold spironolactone and amantadine Assessment & Plan (03/11/2025 2:39 PM EDT): -Patient with CKD and baseline creatinine of around 1.4, 03/08 her creatinine was 1.9 increased to 3.6. 03/11 Creatinine now up to 4.7 today. Patient did receive IV Lasix in the ED x 1 dose. -Bladder scan showed low PVRs in the 60s and patient has not voided overnight. No evidence of urinary retention SANDRA likely secondary to prerenal azotemia as patient is very dry despite elevated BNP, urine output is minimal since admission with low PVRs.. Seen by cardiology and nephrology and both agree. - Abdominal ultrasound was limited focus primarily on the biliary tree with no mention of the kidneys. -IV fluids 100 mL/h overnight. - Repeat renal labs in a.m. - Renal bladder ultrasound to look for obstruction -Continue to hold spironolactone and amantadine -Follow urine and blood cultures rule out UTI - Follow with nephrology - Avoid nephrotoxic meds Assessment & Plan (03/10/2025 8:22 PM EDT): -Patient with CKD and baseline creatinine of around 1.4, 03/08 her creatinine was 1.9, and today it is 3.6 -Follow-up bladder scan to rule out retention -Hold nephrotoxic meds including spironolactone, amantadine -Follow-up nephro consult Elevated troponin 03/10/2025 Assessment & Plan (03/14/2025 6:54 PM EDT): -Patient denies any chest pain. Seen by cardiology not thought to have ACS -Likely secondary to SANDRA Assessment & Plan (03/13/2025 3:14 PM EDT): -Patient denies any chest pain. Seen by cardiology not thought to have ACS -Likely secondary to SANDRA Assessment & Plan (03/12/2025 4:32 PM EDT): -Patient denies any chest pain. Seen by cardiology not thought to have ACS -Likely secondary to SANDRA Assessment & Plan (03/11/2025 2:39 PM EDT): -Patient denies any chest pain. Seen by cardiology not thought to have ACS -Likely secondary to SANDRA Assessment & Plan (03/10/2025 8:22 PM EDT): -Patient denies any chest pain -Likely secondary to SANDRA Elevated brain natriuretic peptide (BNP) level 1 Assessment & Plan (03/14/2025 6:54 PM EDT): -In January BNP was around 2000, 3 days ago BNP was 7000, and on admission was 27,000 -Repeat echo RV moderately dilated. Mildly reduced function. No valvular disease. EF 55%. PA pressure moderately elevated. Clinically she appears dry. Assessment & Plan (03/13/2025 3:14 PM EDT): -In January BNP was around 2000, 3 days ago BNP was 7000, and on admission was 27,000 -Repeat echo RV moderately dilated. Mildly reduced function. No valvular disease. EF 55%. PA pressure moderately elevated. Clinically she appears dry. Assessment & Plan (03/12/2025 4:32 PM EDT): -In January BNP was around 2000, 3 days ago BNP was 7000, and on admission was 27,000 -Repeat echo RV moderately dilated. Mildly reduced function. No valvular disease. EF 55%. PA pressure moderately elevated. Clinically she appears dry. Assessment & Plan (03/11/2025 2:39 PM EDT): -In January BNP was around 2000, 3 days ago BNP was 7000, and today it is almost 27,000. -Chest x-ray is clear. -In the ED patient received a dose of IV Lasix, -Today patient appears dry with no JVD, pulmonary crackles, leg edema. - Seen by cardiology and thought to be dry recommend IV fluid but hold further diuretics until renal function back to baseline. -Consider outpatient CardioMEMS implant given difficult to assess fluid status. -Repeat echo RV moderately dilated. Mildly reduced function. No valvular disease. EF 55%. PA pressure moderately elevated. Assessment & Plan (03/10/2025 8:22 PM EDT): -In January BNP was around 2000, 3 days ago BNP was 7000, and today it is almost 27,000 -There is no lower extremity edema, lungs are clear, minimal JVD is seen, chest x-ray is clear -In the ED patient received a dose of IV Lasix, will monitor response and renal function but hold off on further diuresis for now -Follow-up TTE -Follow-up cardiology consult Elevated LFTs 03/10/2025 Assessment & Plan (03/14/2025 10:42 AM EDT): - Likely drug-induced, continue GI recommendations Assessment & Plan (03/13/2025 3:14 PM EDT): -LFTs were slightly trending up prior to her discharge 03/08 and are further trending up today -hepatitis A, B, C panel nonreactive, right upper quadrant ultrasound limited but showing s/p cholecystectomy. CBD mildly dilated thought to be postcholecystectomy state. MRCP without acute finding. GI suspects this might be drug-induced liver injury. Has steatosis. Continue to trend LFTs. Hopefully peaking in net day or two. Assessment & Plan (03/12/2025 4:32 PM EDT): -LFTs were slightly trending up prior to her discharge 03/08 and are further trending up today -hepatitis A, B, C panel nonreactive, - right upper quadrant ultrasound limited but showing s/p cholecystectomy. CBD mildly dilated thought to be postcholecystectomy state. MRCP without acute finding. GI suspects this might be drug-induced liver injury. Has steatosis. Continue to trend LFTs Assessment & Plan (03/11/2025 2:39 PM EDT): -LFTs were slightly trending up prior to her discharge 03/08 and are further trending up today -hepatitis A, B, C panel nonreactive, -EBV, CMV pending. - right upper quadrant ultrasound limited but showing s/p cholecystectomy. CBD mildly dilated thought to be postcholecystectomy state. - Seen by GI recommend MRCP with no contrast.. Autoimmune markers ordered. Assessment & Plan (03/10/2025 8:22 PM EDT): -LFTs were slightly trending up prior to her discharge 03/08 and are further trending up today -Follow-up hepatitis panel, EBV, CMV -Follow-up right upper quadrant ultrasound -Follow-up GI consult Weakness 03/07/2025 Assessment & Plan (03/07/2025 11:44 PM EDT): Patient presented with progressive generalized weakness in setting of her MS. Having increased difficulty in ambulating despite the use of a walker which is complicated by worsening vision due to cataracts/glaucoma/early macular degeneration. Workup has otherwise been unremarkable although proBNP is elevated greater than 7000. Patient commented on nonspecific shortness of breath but there is no peripheral edema or evidence of congestion on chest x-ray. Saturating in the high 90s on room air. Urinalysis had concerns for possible infection but may be contaminated. Patient had concern of malodorous urine and darker in appearance. ED recommended observation for PT/case management in the morning for rehab placement. - Patient will be observed on MedSurg -Repeating CBC and CMP -Will attempt repeating urinalysis with reflex. But given her symptoms we will plan to give 1 dose of fosfomycin - PT/OT/Case management consultation in the morning History of pulmonary embolus (PE) 03/07/2025 Assessment & Plan (03/14/2025 6:54 PM EDT): -Continue Eliquis(dosing is for PE) Assessment & Plan (03/13/2025 3:14 PM EDT): -Continue Eliquis(dosing is for PE) Assessment & Plan (03/12/2025 4:32 PM EDT): -Continue Eliquis Assessment & Plan (03/11/2025 2:39 PM EDT): -Continue Eliquis Assessment & Plan (03/10/2025 8:22 PM EDT): -Continue Eliquis Assessment & Plan (03/07/2025 11:44 PM EDT): Continue Eliquis 5 mg twice daily Anemia 07/23/2024 Assessment & Plan (04/14/2025 12:24 PM EST): # Iron deficiency anemia Recent b/l Hgb ~9. Colonoscopy and EGD in 07/2024 largely normal aside from hemorrhoids. Has been below baseline this admission at ~7-8. Likely in the setting of coagulopathy (reportedly melena x 2 in ICU) and critical illness. B12, folate, hemolysis labs all reassuring/wnl. Received 2 units pRBC this admission. Given heart failure and Tsat <20, gave IV repletion x2 doses (held 3rd dose d/t UTI as discussed elsewhere). - Trend Hgb on daily CBC - Maintain active T&S (expires 04/16) --- Of note, patient has a history of clinically significant antibodies, extra time may be required to identify antigen-negative, compatible RBC units - S/p Venofer 300 mg x2 doses, repeat iron studies in 2-3 months Assessment & Plan (04/13/2025 4:16 PM EST): # Iron deficiency anemia Recent b/l Hgb ~9. Colonoscopy and EGD in 07/2024 largely normal aside from hemorrhoids. Has been below baseline this admission at ~7-8. Likely in the setting of coagulopathy (reportedly melena x 2 in ICU) and critical illness. B12, folate, hemolysis labs all reassuring/wnl. Received 2 units pRBC this admission. Given heart failure and Tsat <20, gave IV repletion x2 doses (held 3rd dose d/t UTI as discussed elsewhere). - Trend Hgb on daily CBC - Maintain active T&S (expires 04/16) --- Of note, patient has a history of clinically significant antibodies, extra time may be required to identify antigen-negative, compatible RBC units - S/p Venofer 300 mg x2 doses, repeat iron studies in 2-3 months Assessment & Plan (04/12/2025 3:48 PM EST): # Iron deficiency anemia Recent b/l Hgb ~9. Colonoscopy and EGD in 07/2024 largely normal aside from hemorrhoids. Has been below baseline this admission at ~7-8. Likely in the setting of coagulopathy (reportedly melena x 2 in ICU) and critical illness. Required 1U PRBC in ICU. B12, folate, hemolysis labs all reassuring/wnl. No s/sx of bleeding at this time. Hgb decreased to 6.9 04/04 evening. Received 1 unit pRBC with good response in Hgb to 8.4. Low suspicion for active bleed at this time given HDS. Given heart failure will plan for IV iron repletion as Tsat <20. - Trend Hgb on daily CBC - Maintain active T&S (expires 04/12 at 11:59PM) --- Of note, patient has a history of clinically significant antibodies, extra time may be required to identify antigen-negative, compatible RBC units - Venofer 300 mg 3X weekly for 3 doses, repeat iron studies in 2-3 months Assessment & Plan (04/11/2025 6:03 PM EST): # Iron deficiency anemia Recent b/l Hgb ~9. Colonoscopy and EGD in 07/2024 largely normal aside from hemorrhoids. Has been below baseline this admission at ~7-8. Likely in the setting of coagulopathy (reportedly melena x 2 in ICU) and critical illness. Required 1U PRBC in ICU. B12, folate, hemolysis labs all reassuring/wnl. No s/sx of bleeding at this time. Hgb decreased to 6.9 04/04 evening. Received 1 unit pRBC with good response in Hgb to 8.4. Low suspicion for active bleed at this time given HDS. Given heart failure will plan for IV iron repletion as Tsat <20. - Trend Hgb on daily CBC - Maintain active T&S (expires 04/12 at 11:59PM) --- Of note, patient has a history of clinically significant antibodies, extra time may be required to identify antigen-negative, compatible RBC units - Venofer 300 mg 3X weekly for 3 doses, repeat iron studies in 2-3 months Assessment & Plan (04/10/2025 4:46 PM EST): # Iron deficiency anemia Recent b/l Hgb ~9. Colonoscopy and EGD in 07/2024 largely normal aside from hemorrhoids. Has been below baseline this admission at ~7-8. Likely in the setting of coagulopathy (reportedly melena x 2 in ICU) and critical illness. Required 1U PRBC in ICU. B12, folate, hemolysis labs all reassuring/wnl. No s/sx of bleeding at this time. Hgb decreased to 6.9 10 evening. Received 1 unit pRBC with good response in Hgb to 8.4. Low suspicion for active bleed at this time given HDS. Given heart failure will plan for IV iron repletion as Tsat <20. - Trend Hgb on daily CBC. - Maintain active T&S (expires 04/12 at 11:59PM) --- Of note, patient has a history of clinically significant antibodies, extra time may be required to identify antigen-negative, compatible RBC units - Venofer 300 mg 3X weekly for 3 doses, repeat iron studies in 2-3 months Assessment & Plan (04/09/2025 11:38 AM EDT): #Anemia Recent b/l Hgb ~9. Colonoscopy and EGD in 07/2024 largely normal aside from hemorrhoids. Has been below baseline this admission at ~7-8. Likely in the setting of coagulopathy (reportedly melena x 2 in ICU) and critical illness. Required 1U PRBC in ICU. B12, folate, hemolysis labs all reassuring/wnl. No s/sx of bleeding at this time. Hgb decreased to 6.9 10 evening. Received 1 unit pRBC with good response in Hgb to 8.4. Low suspicion for active bleed at this time given HDS. Given heart failure will plan for IV iron repletion as Tsat <20 - Trend Hgb on daily CBC. - Maintain active T&S - expires 04/08 11:59PM --- Of note, patient has a history of clinically significant antibodies, extra time may be required to identify antigen-negative, compatible RBC units. -Venofer 300 mg 3X weekly for 3 doses, repeat iron studies in 2-3 months Assessment & Plan (04/08/2025 1:48 PM EDT): #Anemia Recent b/l Hgb ~9. Colonoscopy and EGD in 07/2024 largely normal aside from hemorrhoids. Has been below baseline this admission at ~7-8. Likely in the setting of coagulopathy (reportedly melena x 2 in ICU) and critical illness. Required 1U PRBC in ICU. B12, folate, hemolysis labs all reassuring/wnl. No s/sx of bleeding at this time. Hgb decreased to 6.9 10 evening. Received 1 unit pRBC with good response in Hgb to 8.4. Low suspicion for active bleed at this time given HDS. Given heart failure will plan for IV iron repletion as Tsat <20 - Trend Hgb on daily CBC. - Maintain active T&S - expires 04/08 11:59PM --- Of note, patient has a history of clinically significant antibodies, extra time may be required to identify antigen-negative, compatible RBC units. -Venofer 300 mg 3X weekly for 3 doses, repeat iron studies in 2-3 months Assessment & Plan (04/07/2025 11:36 AM EDT): #Anemia Recent b/l Hgb ~9. Colonoscopy and EGD in 07/2024 largely normal aside from hemorrhoids. Has been below baseline this admission at ~7-8. Likely in the setting of coagulopathy (reportedly melena x 2 in ICU) and critical illness. Required 1U PRBC in ICU. B12, folate, hemolysis labs all reassuring/wnl. No s/sx of bleeding at this time. Hgb decreased to 6.9 04/04 evening. Received 1 unit pRBC with good response in Hgb to 8.4. Low suspicion for active bleed at this time given HDS. Given heart failure will plan for IV iron repletion as Tsat <20 - Trend Hgb on daily CBC. - Maintain active T&S - expires 04/08 11:59PM --- Of note, patient has a history of clinically significant antibodies, extra time may be required to identify antigen-negative, compatible RBC units. -Venofer 300 mg 3X weekly for 3 doses, repeat iron studies in 2-3 months Assessment & Plan (04/06/2025 9:22 AM EDT): Recent b/l Hgb ~9. Colonoscopy and EGD in 07/2024 largely normal aside from hemorrhoids. Has been below baseline this admission at ~7-8. Likely in the setting of coagulopathy (reportedly melena x 2 in ICU) and critical illness. Required 1U PRBC in ICU. Iron studies, B12, folate, hemolysis labs all reassuring/wnl. No s/sx of bleeding at this time. Hgb decreased to 6.9 10 evening. Received 1 unit pRBC with good response in Hgb to 8.4. Low suspicion for active bleed at this time given HDS. No melena or hematemesis. Pt reported improved abdominal pain. - Trend Hgb on daily CBC - Noted Hgb decreased from 8.6 to 7.8. - Follow-up CBC 1600 to ensure stable. - Maintain active T&S - expires 04/05 11:59PM- reordered 04/05. --- Of note, patient has a history of clinically significant antibodies, extra time may be required to identify antigen-negative, compatible RBC units. Assessment & Plan (04/05/2025 1:43 PM EDT): Recent b/l Hgb ~9. Colonoscopy and EGD in 07/2024 largely normal aside from hemorrhoids. Has been below baseline this admission at ~7-8. Likely in the setting of coagulopathy (reportedly melena x 2 in ICU) and critical illness. Required 1U PRBC in ICU. Iron studies, B12, folate, hemolysis labs all reassuring/wnl. No s/sx of bleeding at this time. Hgb decreased to 6.9 10 evening. Received 1 unit pRBC with good response in Hgb to 8.4. Low suspicion for active bleed at this time given HDS. No melena or hematemesis. Pt reported improved abdominal pain. - Trend Hgb on daily CBC - Noted Hgb decreased from 8.6 to 7.8. - Follow-up CBC 1600 to ensure stable. - Maintain active T&S - expires 04/05 11:59PM- reordered 04/05. --- Of note, patient has a history of clinically significant antibodies, extra time may be required to identify antigen-negative, compatible RBC units. Assessment & Plan (04/04/2025 5:43 PM EDT): Recent b/l Hgb ~9. Colonoscopy and EGD in 07/2024 largely normal aside from hemorrhoids. Has been below baseline this admission at ~7-8. Likely in the setting of coagulopathy (reportedly melena x 2 in ICU) and critical illness. Required 1U PRBC in ICU. Iron studies, B12, folate, hemolysis labs all reassuring/wnl. No s/sx of bleeding at this time. Hgb decreased to 6.9 04/04 evening. Received 1 unit pRBC with good response in Hgb. Low suspicion for active bleed at this time given HDS. No melena or hematemesis. Pt reported improved abdominal pain. - Trend Hgb on daily CBC - Maintain active T&S - expires 04/05 11:59PM --- Of note, patient has a history of clinically significant antibodies, extra time may be required to identify antigen-negative, compatible RBC units. Assessment & Plan (04/03/2025 1:14 PM EDT): Recent b/l Hgb ~9. Colonoscopy and EGD in 07/2024 largely normal aside from hemorrhoids. Has been below baseline this admission at ~7-8. Likely in the setting of coagulopathy (reportedly melena x 2 in ICU) and critical illness. Required 1U PRBC in ICU. Iron studies, B12, folate, hemolysis labs all reassuring/wnl. No s/sx of bleeding at this time. - Trend Hgb on daily CBC - Maintain active T&S - expires 04/01 (reordered for am labs) --- Of note, patient has a history of clinically significant antibodies, extra time may be required to identify antigen-negative, compatible RBC units. Assessment & Plan (04/02/2025 10:41 AM EDT): Recent b/l Hgb ~9. Colonoscopy and EGD in 07/2024 largely normal aside from hemorrhoids. Has been below baseline this admission at ~7-8. Likely in the setting of coagulopathy (reportedly melena x 2 in ICU) and critical illness. Required 1U PRBC in ICU. Iron studies, B12, folate, hemolysis labs all reassuring/wnl. No s/sx of bleeding at this time. - Trend Hgb on daily CBC - Maintain active T&S - expires 04/01 (reordered for am labs) --- Of note, patient has a history of clinically significant antibodies, extra time may be required to identify antigen-negative, compatible RBC units. Assessment & Plan (04/01/2025 12:25 PM EDT): Recent b/l Hgb ~9. Colonoscopy and EGD in 07/2024 largely normal aside from hemorrhoids. Has been below baseline this admission at ~7-8. Likely in the setting of coagulopathy (reportedly melena x 2 in ICU) and critical illness. Required 1U PRBC in ICU. Iron studies, B12, folate, hemolysis labs all reassuring/wnl. No s/sx of bleeding at this time. - Trend Hgb on daily CBC - Maintain active T&S - expires 04/01 (reordered for am labs) --- Of note, patient has a history of clinically significant antibodies, extra time may be required to identify antigen-negative, compatible RBC units. Assessment & Plan (03/31/2025 7:38 AM EDT): Recent b/l Hgb ~9. Colonoscopy and EGD in 07/2024 largely normal aside from hemorrhoids. Has been below baseline this admission at ~7-8. Likely in the setting of coagulopathy (reportedly melena x 2 in ICU) and critical illness. Required 1U PRBC 10/10 for Hgb 6.7 with appropriate bump to 8.1. Largely stable since, thought intermittently passing clots in stool in setting of #colitis. Iron studies, B12, folate, hemolysis labs all reassuring/wnl. - Trend Hgb on daily CBC - Maintain active T&S - expires 04/01 --- Of note, patient has a history of clinically significant antibodies, extra time may be required to identify antigen-negative, compatible RBC units. Assessment & Plan (03/30/2025 1:33 PM EDT): Recent b/l Hgb ~9. Colonoscopy and EGD in 07/2024 largely normal aside from hemorrhoids. Has been below baseline this admission at ~7-8. Likely in the setting of coagulopathy (reportedly melena x 2 in ICU) and critical illness. Required 1U PRBC 10/10 for Hgb 6.7 with appropriate bump to 8.1. Largely stable since, thought intermittently passing clots in stool in setting of #colitis. Iron studies, B12, folate, hemolysis labs all reassuring/wnl. - Trend Hgb on daily CBC - Maintain active T&S - expires 04/01 --- Of note, patient has a history of clinically significant antibodies, extra time may be required to identify antigen-negative, compatible RBC units. Assessment & Plan (03/29/2025 8:15 AM EDT): Recent b/l Hgb ~9. Colonoscopy and EGD in 07/2024 largely normal aside from hemorrhoids. Has been below baseline this admission at ~7-8. Likely in the setting of coagulopathy (reportedly melena x 2 in ICU) and critical illness. Required 1U PRBC 10/10 for Hgb 6.7 with appropriate bump to 8.1. Largely stable since, thought intermittently passing clots in stool in setting of #colitis. Iron studies, B12, folate, hemolysis labs all reassuring/wnl. - Trend Hgb on daily CBC - Maintain active T&S - expires 03/28; next ordered --- Of note, patient has a history of clinically significant antibodies, extra time may be required to identify antigen-negative, compatible RBC units. Assessment & Plan (03/28/2025 5:52 PM EDT): Recent b/l Hgb ~9. Colonoscopy and EGD in 07/2024 largely normal aside from hemorrhoids. Has been below baseline this admission at ~7-8. Likely in the setting of coagulopathy (reportedly melena x 2 in ICU) and critical illness. Required 1U PRBC 10/10 for Hgb 6.7 with appropriate bump to 8.1. Largely stable since, thought intermittently passing clots in stool in setting of #colitis. Iron studies, B12, folate, hemolysis labs all reassuring/wnl. - Trend Hgb on daily CBC - Maintain active T&S - expires 03/28; next ordered --- Of note, patient has a history of clinically significant antibodies, extra time may be required to identify antigen-negative, compatible RBC units. Assessment & Plan (03/27/2025 6:39 PM EDT): Recent b/l Hgb ~9. Colonoscopy and EGD in 07/2024 largely normal aside from hemorrhoids. Has been below baseline this admission at ~7-8. Likely in the setting of coagulopathy (reportedly melena x 2 in ICU) and critical illness. Required 1U PRBC 10/10 for Hgb 6.7 with appropriate bump to 8.1. Largely stable since, thought intermittently passing clots in stool in setting of #colitis. Iron studies, B12, folate, hemolysis labs all reassuring/wnl. - Trend Hgb on daily CBC - Maintain active T&S - expires 03/28 - Of note, patient has a history of clinically significant antibodies, extra time may be required to identify antigen-negative, compatible RBC units. Assessment & Plan (03/26/2025 6:37 PM EDT): Recent b/l Hgb ~9. Colonoscopy and EGD in 07/2024 largely normal aside from hemorrhoids. Has been below baseline this admission at ~7-8. Likely in the setting of coagulopathy (reportedly melena x 2 in ICU) and critical illness. Required 1U PRBC 10/10 for Hgb 6.7 with appropriate bump to 8.1. Largely stable since, thought intermittently passing clots in stool in setting of #colitis. Iron studies, B12, folate, hemolysis labs all reassuring/wnl. - Trend Hgb on daily CBC - Maintain active T&S - expires 03/28 - Of note, patient has a history of clinically significant antibodies, extra time may be required to identify antigen-negative, compatible RBC units. Assessment & Plan (03/25/2025 12:00 PM EDT): Recent b/l Hgb ~9. Colonoscopy and EGD in 07/2024 largely normal aside from hemorrhoids. Has been below baseline this admission at ~7-8. Likely in the setting of # coagulopathy (reportedly melena x 2 in ICU) and critical illness. Required 1U PRBC 10/10 for Hgb 6.7 with appropriate bump to 8.1. Largely stable since, thought intermittently passing clots in stool in setting of #colitis. Iron studies, B12, folate, hemolysis labs all reassuring/wnl. - Trend Hgb on daily CBC - Maintain active T&S - expires 03/28 --- Of note, patient has a history of clinically significant antibodies, extra time may be required to identify antigen-negative, compatible RBC units. Assessment & Plan (03/24/2025 4:37 PM EDT): Recent b/l Hgb ~9. Colonoscopy and EGD in 07/2024 largely normal aside from hemorrhoids. Has been below baseline this admission at ~7-8. Likely in the setting of # coagulopathy (reportedly melena x 2 in ICU) and critical illness. Required 1U PRBC 10/10 for Hgb 6.7 with appropriate bump to 8.1. Largely stable since with no overt GIB witnessed on the floor. Iron studies, B12, folate, hemolysis labs all reassuring/wnl. - Trend Hgb on daily CBC - Maintain active T&S - ordered for 03/25 Assessment & Plan (03/23/2025 9:02 AM EDT): Recent b/l Hgb ~9. Colonoscopy and EGD in 07/2024 largely normal aside from hemorrhoids. Has been below baseline this admission at ~7-8. Likely in the setting of # coagulopathy (reportedly melena x 2 in ICU) and critical illness. Required 1U PRBC 10/10 for Hgb 6.7 with appropriate bump to 8.1. Largely stable since with no overt GIB witnessed on the floor. Iron studies, B12, folate, hemolysis labs all reassuring/wnl. - Trend Hgb on daily CBC - Maintain active T&S - current exp 03/24 @ [id number] Assessment & Plan (03/22/2025 2:00 PM EDT): Recent b/l Hgb ~9. Colonoscopy and EGD in 07/2024 largely normal aside from hemorrhoids. Has been below baseline this admission at ~7-8. Likely in the setting of # coagulopathy (reportedly melena x 2 in ICU) and critical illness. Required 1U PRBC 10/10 for Hgb 6.7 with appropriate bump to 8.1. Largely stable since with no overt GIB witnessed on the floor. Iron studies, B12, folate, hemolysis labs all reassuring/wnl. - Trend Hgb on daily CBC - Maintain active T&S - current exp 03/24 Assessment & Plan (03/21/2025 10:17 AM EDT): Recent b/l Hgb ~9. Colonoscopy and EGD in 07/2024 largely normal aside from hemorrhoids. Has been below baseline this admission ~7-8 iso # coagulopathy and reportedly melena x 2 in ICU. S/P 1U PRBC 10/10 for Hgb 6.7 with appropriate bump to 8.1 and largely stable since with no overt GIB witnessed on the floor. Iron studies, B12, folate, hemolysis labs all reassuring/wnl. - Trend Hgb on daily CBC - Maintain active T&S - current exp 03/24 Assessment & Plan (03/20/2025 2:00 PM EDT): Recent b/l Hgb ~9. Colonoscopy and EGD in 07/2024 largely normal aside from hemorrhoids. Has been below baseline this admission ~7-8 iso # coagulopathy and reportedly melena x 2 in ICU. S/P 1U PRBC 10/10 for Hgb 6.7 with appropriate bump to 8.1 and largely stable since with no overt GIB witnessed on the floor. Iron studies, B12, folate, hemolysis labs all reassuring/wnl. - Trend Hgb on daily CBC - Maintain active T&S - ordered for 03/21 AM Assessment & Plan (03/14/2025 6:54 PM EDT): Hemoglobin ranging from 8.6-9.4 for the past 10 months. In July patient was anemic to 6.8 on July 24 when she was in house and transfused 1 unit of packed red cells. She was seen by gastroenterology and underwent upper endoscopy Revealing normal exam with no bleeding source identified. Recommendation was for outpatient colonoscopy. - Patient had heme positive stools and colonoscopy was performed on 07/28 revealing a polyp which was snared and cauterized in the cecum but no source of anemia identified. 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 Workup includes iron, iron saturation, TIBC, folate, B12, ferritin all within normal limits. As noted above recent colonoscopy and endoscopy were unremarkable. -FIT is positive for Hemoccult blood as it has been in the past. - Will continue to monitor H&H as it appears to be stable. - Will likely need outpatient capsule endoscopy. Follow-up with GI. Assessment & Plan (03/13/2025 3:14 PM EDT): Hemoglobin ranging from 8.6-9.4 for the past 10 months. In July patient was anemic to 6.8 on July 24 when she was in house and transfused 1 unit of packed red cells. She was seen by gastroenterology and underwent upper endoscopy Revealing normal exam with no bleeding source identified. Recommendation was for outpatient colonoscopy. - Patient had heme positive stools and colonoscopy was performed on 07/28 revealing a polyp which was snared and cauterized in the cecum but no source of anemia identified. 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 Workup includes iron, iron saturation, TIBC, folate, B12, ferritin all within normal limits. As noted above recent colonoscopy and endoscopy were unremarkable. -FIT is positive for Hemoccult blood as it has been in the past. - Will continue to monitor H&H as it appears to be stable. - Will likely need outpatient capsule endoscopy. Follow-up with GI. Assessment & Plan (03/12/2025 4:32 PM EDT): Hemoglobin ranging from 8.6-9.4 for the past 10 months. In July patient was anemic to 6.8 on July 24 when she was in house and transfused 1 unit of packed red cells. She was seen by gastroenterology and underwent upper endoscopy Revealing normal exam with no bleeding source identified. Recommendation was for outpatient colonoscopy. - Patient had heme positive stools and colonoscopy was performed on 07/28 revealing a polyp which was snared and cauterized in the cecum but no source of anemia identified. 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 Workup includes iron, iron saturation, TIBC, folate, B12, ferritin all within normal limits. As noted above recent colonoscopy and endoscopy were unremarkable. -FIT is positive for Hemoccult blood as it has been in the past. - Will continue to monitor H&H as it appears to be stable. - Will likely need outpatient capsule endoscopy. Follow-up with GI. Assessment & Plan (03/11/2025 2:39 PM EDT): Hemoglobin ranging from 8.6-9.4 for the past 10 months. In July patient was anemic to 6.8 on July 24 when she was in house and transfused 1 unit of packed red cells. She was seen by gastroenterology and underwent upper endoscopy Revealing normal exam with no bleeding source identified. Recommendation was for outpatient colonoscopy. - Patient had heme positive stools and colonoscopy was performed on 07/28 revealing a polyp which was snared and cauterized in the cecum but no source of anemia identified. 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 Workup includes iron, iron saturation, TIBC, folate, B12, ferritin all within normal limits. As noted above recent colonoscopy and endoscopy were unremarkable. -FIT is positive for Hemoccult blood as it has been in the past. - Will continue to monitor H&H as it appears to be stable. - Will likely need outpatient capsule endoscopy. Follow-up with GI. Assessment & Plan (03/10/2025 8:22 PM EDT): -Follow-up FIT -Follow-up iron studies, B12, folate Assessment & Plan (07/28/2024 4:15 PM EST): - concern for GI etiology given epigastric pain and report of recent melena - agree also component of dilution and renal dz may have contributed - 07/22 iron studies did not show iron deficiency - 07/23 held anticoagulation - 07/24 held aspirin - 07/24 1 unit of blood transfused - 07/25 hemoglobin improved - 07/26 Hb stable - history of PE, holding eliquis for now in setting of concern for recent bleeding -EGD was normal -Colonoscopy normal 1 polyp was biopsied -Monitor overnight (she was hypotensive during her colonoscopy) with expected discharge in the morning Assessment & Plan (07/27/2024 1:50 PM EST): - concern for GI etiology given epigastric pain and report of recent melena - agree also component of dilution and renal dz may have contributed - 07/22 iron studies did not show iron deficiency - 07/23 held anticoagulation - 15 held aspirin - /15 1 unit of blood transfused - 07/25 hemoglobin improved - 07/26 Hb stable - history of PE, holding eliquis for now in setting of concern for recent bleeding -EGD was normal -MgCitrate prep unsuccessful; willing to try golytly today -CLS tomorrow if prep successful Assessment & Plan (07/26/2024 12:30 PM EST): - concern for GI etiology given epigastric pain and report of recent melena - agree also component of dilution and renal dz may have contributed - 07/22 iron studies did not show iron deficiency - 07/23 held anticoagulation - 07/24 held aspirin - 15 1 unit of blood transfused - 07/25 hemoglobin improved - 07/26 Hb stable - history of PE, holding eliquis for now in setting of concern for recent bleeding -EGD today was normal -Patient agreeable to colonoscopy tomorrow, prep this evening Assessment & Plan (07/25/2024 11:56 AM EST): - concern for GI etiology given epigastric pain and report of recent melena - agree also component of dilution and renal dz may have contributed - 07/22 iron studies did not show iron deficiency - 07/23 held anticoagulation - 15 held aspirin - 15 1 unit of blood transfused - 07/25 hemoglobin improved - repeat CBC on 07/26 - history of PE, holding eliquis for now in setting of concern for recent bleeding, likely resume after endoscopy Assessment & Plan (07/24/2024 9:58 AM EST): - concern for GI etiology given epigastric pain and report of melena - agree also component of dilution and renal dz may have contributed - currently reporting constipation - 07/22 iron studies did not show iron deficiency - 07/23 held anticoagulation - 15 holding aspirin - 15 hemoglobin has continued to decrease, no active bleeding, melena was a few days ago - clear diet, IV PPI, transfuse 1 unit, 1 unit on hold, GI consult, considering endoscopy, appreciate GI recs - patient has a number of concerns about safety of procedure - assess serial hemoglobin (now off IVF so will not have further dilution) Assessment & Plan (07/23/2024 4:46 PM EST): - concern for GI etiology given epigastric pain and report of melena - currently reporting constipation - 07/22 iron studies did not show iron deficiency - 07/23 hold anticoagulation for today and reassess hemoglobin in am - empiric ppi if can tolerated (has 28 allergies/intolerances) - take aspirin with food HTN (hypertension), benign 07/22/2024 Assessment & Plan (03/21/2025 7:24 AM EDT): [employer] meds include clonidine 0.1mg BID and spironolactone 25mg qd. BPs have generally been elevated this admission, with SBP ~140s-160s. - Holding home clonidine, spironolactone for now Assessment & Plan (03/20/2025 2:00 PM EDT): [employer] meds include clonidine 0.1mg BID and spironolactone 25mg qd. BPs have generally been elevated this admission, with SBP ~140s-160s. - Holding home clonidine, spironolactone for now Assessment & Plan (07/28/2024 4:15 PM EST): Blood pressure is fine on clonidine only Holding lisinopril and spironolactone currently Assessment & Plan (07/27/2024 1:50 PM EST): Blood pressure is fine on clonidine only Holding lisinopril and spironolactone currently Assessment & Plan (07/26/2024 12:30 PM EST): Blood pressure is fine on clonidine only Holding lisinopril and spironolactone currently Assessment & Plan (07/25/2024 12:12 PM EST): Assessment & Plan (07/25/2024 12:12 PM EST): Assessment & Plan (07/24/2024 9:58 AM EST): Assessment & Plan (07/24/2024 7:52 AM EST): Assessment & Plan (07/23/2024 11:43 AM EST): Assessment & Plan (07/23/2024 9:03 AM EST): Assessment & Plan (07/22/2024 2:44 PM EST): Holding her home meds due to sandra and relative hypotension Hypoglycemia 07/20/2024 Assessment & Plan (07/28/2024 4:15 PM EST): Possibly from [facility], and change in renal function Prior to admission she told me she had not recently been on steroids (though appears 5 days of prednisone 40 mg daily was prescribed in June), this admission, in the setting of hypocglycemia, she was initially empirically started on hydrocortisone for an adrenal crisis, completed 2 day IV steroid blood sugars have improved Holding trulicity - ICU team felt she should not resume trulicity - 2/14 hyperglycemia, increased insulin - 2/15 blood glucose below goal, decreased insulin - she did not take glargine - 2/16 no changes in ordered insulin - likely discharge on small doses of insulin - monitoring off steroids - close monitoring for signs of adrenal insufficiency Assessment & Plan (07/27/2024 1:50 PM EST): Possibly from [facility], and change in renal function Prior to admission she told me she had not recently been on steroids (though appears 5 days of prednisone 40 mg daily was prescribed in June), this admission, in the setting of hypocglycemia, she was initially empirically started on hydrocortisone for an adrenal crisis, completed 2 day IV steroid blood sugars have improved Holding trulicity - ICU team felt she should not resume trulicity - 2/14 hyperglycemia, increased insulin - 2/15 blood glucose below goal, decreased insulin - she did not take glargine - 2/16 no changes in ordered insulin - likely discharge on small doses of insulin - monitoring off steroids - close monitoring for signs of adrenal insufficiency Assessment & Plan (07/26/2024 12:30 PM EST): Possibly from [facility], and change in renal function Prior to admission she told me she had not recently been on steroids (though appears 5 days of prednisone 40 mg daily was prescribed in June), this admission, in the setting of hypocglycemia, she was initially empirically started on hydrocortisone for an adrenal crisis, completed 2 day IV steroid blood sugars have improved Holding trulicity - ICU team felt she should not resume trulicity - 2/14 hyperglycemia, increased insulin - 2/15 blood glucose below goal, decreased insulin - she did not take glargine - 2/16 no changes in ordered insulin - likely discharge on small doses of insulin - monitoring off steroids - close monitoring for signs of adrenal insufficiency Assessment & Plan (07/25/2024 12:12 PM EST): Possibly from [facility], and change in renal function Prior to admission she told me she had not recently been on steroids (though appears 5 days of prednisone 40 mg daily was prescribed in June), this admission, in the setting of hypocglycemia, she was initially empirically started on hydrocortisone for an adrenal crisis, completed 2 day IV steroid blood sugars have improved Holding trulicity - ICU team felt she should not resume trulicity - 2/14 hyperglycemia, increased insulin - 2/15 blood glucose below goal, decreased insulin - she did not take glargine - 2/16 no changes in ordered insulin - likely discharge on small doses of insulin - monitoring off steroids - close monitoring for signs of adrenal insufficiency Assessment & Plan (07/24/2024 9:58 AM EST): Possibly from [facility], and change in renal function Was started on hydrocortisone for an adrenal crisis blood sugars have improved Holding trulicity - 2/14 hyperglycemia, increased insulin - 2/15 blood glucose below goal, decrease insulin - monitoring off steroids - close monitoring for signs of adrenal insufficiency Assessment & Plan (07/23/2024 4:46 PM EST): Possibly from [facility], and change in renal function Was started on hydrocortisone for an adrenal crisis blood sugars have improved Holding trulicity - 2/14 hyperglycemia - increase insulin - she has not been on chronic steroids - trial stopping steroids - monitor closely - may need steroid or maintenance dose if there is further evidence of adrenal insufficiency Assessment & Plan (07/22/2024 2:44 PM EST): Possibly from [facility], though that seems unlikely. Was started on hydrocortisone for an adrenal crisis and blood sugars have improved Hold trulicity Diabetic diet Begin steroid taper, switching to TID today Vitamin D deficiency, unspecified 03/14/2024 Hair loss 02/26/2024 Assessment & Plan (03/14/2024 8:01 PM EDT): Continue well-balanced nutritionally diet, rich in vitamins from group B and check TSH to make sure that thyroid dysfunction is not contributory. Use gentle shampoo and conditioner boosting hair regrowth. Anxiety 06/11/2023 Assessment & Plan (06/12/2023 12:53 PM EST): She is reporting significant anxiety. Told nursing she takes alprazolam for this. PDMP shows prescriptions for diazepam but not alprazolam Suspect Solu-Medrol may be worsening her anxiety -- using valium prn Hyperglycemia 06/11/2023 Assessment & Plan (06/12/2023 12:55 PM EST): Blood sugar levels today climbing into the 300s. This is probably steroid- induced Hemoglobin A1c is 6.6 Blood sugar level still elevated but improved -- Increase Lantus to 15 units tonight. Continue mealtime insulin Acute kidney injury 06/06/2023 Assessment & Plan (06/10/2023 8:17 PM EST): Resolving. Suspect due to prerenal/poor PO intake from having her teeth removed earlier this month. Fever 06/06/2023 Assessment & Plan (06/09/2023 1:48 PM EST): Notes having sweats and chills at home however says she does not have a temperature. Was febrile on last admission without clear cause. Not febrile currently. Has a cough which sounds chronic. Recently had a number of teeth pulled, no particular symptoms in mouth currently. Bcx thought to represent contamination and antibiotics have been stopped. Echo without vegetation. Repeat blood cultures NGTD 07/13 Bcx coag negative staff Repeat bcx pending ID recommended discontinuing antibiotics Other insomnia 06/06/2023 Assessment & Plan (03/14/2024 7:55 PM EDT): Principles of sleep hygiene strongly encouraged and continue close follow-up with sleep specialist as scheduled to review different option/adjustment since CPAP causes burning throat. Assessment & Plan (06/12/2023 1:00 PM EST): States that she has trouble sleeping in the hospital. Has used trazodone with good effect in the past. Dose was increased to 50 mg earlier in the admission. Would wonder if this is contributing to her orthostasis -- Hold trazodone. -- Will give melatonin prn At high risk for injury related to fall 06/06/20 Assessment & Plan (06/10/2023 8:18 PM EST): Due to orthostatic hypotension. Pt/ot referrals Right ear pain 06/06/2023 Assessment & Plan (06/06/2023 4:39 AM EST): Reports using qtips. Does have a scratch with some dried blood to external auditory canal. TM appears pearly lynn. No evidence of otitis externa. Bacteremia 06/06/2023 Dysphagia 05/28/2023 Assessment & Plan (03/14/2024 8:02 PM EDT): Continue to monitor closely, avoid known triggers and follow instructions from speech and swallow specialist. Assessment & Plan (05/28/2023 5:46 PM EST): She is reporting some swallowing difficulty -- GEOLOGICAL ENGINEER eval --Patient requests minced and moist diet Fever 05/28/2023 Assessment & Plan (05/28/2023 5:50 PM EST): Fever to 100.9 today Blood and urine cultures this admission negative. SARS Cov 19 PCR negative in ED. Influenza swab also negative -- Check 2nd COVID --Could consider abdominal imaging if she has more symptoms are persistent unexplained fever DM2 (diabetes mellitus, type 2) 05/26/2023 Assessment & Plan (04/14/2025 1:16 PM EST): # Type II diabetes Managed on Trulicity at home. Hgb A1c 5.8 on 03/11. Poor PO here. Reportedly FS are less accurate than blood draw glucose iso # Raynaud's. Noted to have elevated BS, considered to be in setting of ensure plus/clear beverages. Adjusted to boost (glucerna) for improved carb control. Given persistently elevated BS started nutritional and basal insulin and titrating doses as needed. - Holding home Trulicity in-house - FSBG with meals - Continue Moderate dose sliding scale TID with meals - Continue nutritional insulin lispro 6 units w/ meals. - Continue nutritional insulin lispro 2 units PRN with snacks - Continue Lantus to 30 units nightly, consider increasing further pending glucose trend - Consider diabetes consult Assessment & Plan (04/13/2025 4:34 PM EST): # Type II diabetes Managed on Trulicity at home. Hgb A1c 5.8 on 03/11. Poor PO here. Reportedly FS are less accurate than blood draw glucose iso # Raynaud's. Noted to have elevated BS, considered to be in setting of ensure plus/clear beverages. Adjusted to boost (glucerna) for improved carb control. Given persistently elevated BS started nutritional and basal insulin and titrating doses as needed. - Holding home Trulicity in-house - FSBG with meals - Continue Moderate dose sliding scale TID with meals - Increase nutritional insulin lispro to 6 units w/ meals. - Start nutritional insulin lispro 2 units PRN with snacks - Increase Lantus to 30 units nightly, consider increasing further pending glucose trend - Consider diabetes consult Assessment & Plan (04/12/2025 3:48 PM EST): # Type II diabetes Managed on Trulicity at home. Hgb A1c 5.8 on 03/11. Poor PO here. Reportedly FS are less accurate than blood draw glucose iso # Raynaud's. Noted to have elevated BS, considered to be in setting of ensure plus/clear beverages. Adjusted to boost (glucerna) for improved carb control. Given persistently elevated BS will add nutritional and basal insulin. - Holding home Trulicity in-house - FSBG with meals - Continue Moderate dose sliding scale TID with meals - Continue nutritional insulin lispro 4 units w/ meals. - Adjusted Lantus to 28 units nightly, consider increasing further pending glucose trend - Consider diabetes consult Assessment & Plan (04/11/2025 6:03 PM EST): # Type II diabetes Managed on Trulicity at home. Hgb A1c 5.8 on 03/11. Poor PO here. Reportedly FS are less accurate than blood draw glucose iso # Raynaud's. Noted to have elevated BS, considered to be in setting of ensure plus/clear beverages. Adjusted to boost (glucerna) for improved carb control. Given persistently elevated BS will add nutritional and basal insulin. - Holding home Trulicity in-house - FSBG with meals - Continue Moderate dose sliding scale TID with meals - Continue nutritional insulin lispro 4 units w/ meals. - Increase Lantus to 35 units nightly, consider increasing further pending glucose trend - Consider diabetes consult Assessment & Plan (04/10/2025 4:46 PM EST): # Type II diabetes Managed on Trulicity at home. Hgb A1c 5.8 on 03/11. Poor PO here. Reportedly FS are less accurate than blood draw glucose iso # Raynaud's. Noted to have elevated BS, considered to be in setting of ensure plus/clear beverages. Adjusted to boost (glucerna) for improved carb control. Given persistently elevated BS will add nutritional and basal insulin. - Holding home Trulicity in-house - FSBG with meals - Continue Moderate dose sliding scale TID with meals - Continue nutritional insulin lispro 2 units w/ meals. - Increased Lantus 23 units nightly, consider increasing further pending glucose trend - Consider diabetes consult Assessment & Plan (04/09/2025 11:38 AM EDT): #Type II diabetes Managed on Trulicity at home. Hgb A1c 5.8 on 03/11. Poor PO here. Reportedly FS are less accurate than blood draw glucose iso # Raynaud's. Noted to have elevated BS, considered to be in setting of ensure plus/clear beverages. Adjusted to boost(glucerna) for improved carb control. Given persistently elevated BS will add nutritional and basal insulin. - Holding home Trulicity in-house - FSBG with meals - Continue Moderate dose sliding scale - Continue nutritional insulin lispro 2 units w/ meals. - Increase Lantus 23 units nightly. Assessment & Plan (04/08/2025 1:48 PM EDT): #Type II diabetes Managed on Trulicity at home. Hgb A1c 5.8 on 03/11. Poor PO here. Reportedly FS are less accurate than blood draw glucose iso # Raynaud's. Noted to have elevated BS, considered to be in setting of ensure plus/clear beverages. Adjusted to boost(glucerna) for improved carb control. Given persistently elevated BS will add nutritional and basal insulin. - Holding home Trulicity in-house - FSBG with meals - Continue Moderate dose sliding scale - Continue nutritional insulin lispro 2 units w/ meals. - Increase Lantus 23 units nightly. Assessment & Plan (04/07/2025 4:02 PM EDT): #Type II diabetes Managed on Trulicity at home. Hgb A1c 5.8 on 03/11. Poor PO here. Reportedly FS are less accurate than blood draw glucose iso # Raynaud's. Noted to have elevated BS, considered to be in setting of ensure plus/clear beverages. Adjusted to boost(glucerna) for improved carb control. Given persistently elevated BS will add nutritional and basal insulin. - Holding home Trulicity in-house - FSBG with meals - Continue Moderate dose sliding scale - Continue nutritional insulin lispro 2 units w/ meals. - Increase Lantus 15 units nightly. Assessment & Plan (04/06/2025 2:39 PM EDT): #Type II diabetes Managed on Trulicity at home. Hgb A1c 5.8 on 03/11. Poor PO here. Reportedly FS are less accurate than blood draw glucose iso # Raynaud's. Noted to have elevated BS, considered to be in setting of ensure plus/clear beverages. Adjusted to boost(glucerna) for improved carb control. Given persistently elevated BS will add nutritional and basal insulin. - Holding home Trulicity in-house - FSBG with meals - Continue Moderate dose sliding scale - Continue nutritional insulin lispro 2 units w/ meals. - Increase Lantus 9 units nightly. Assessment & Plan (04/05/2025 8:06 AM EDT): Managed on Trulicity at home. Hgb A1c 5.8 on 03/11. Poor PO here. Reportedly FS are less accurate than blood draw glucose iso # Raynaud's. Noted to have elevated BS, considered to be in setting of ensure plus/clear beverages. Adjusted to boost(glucerna) for improved carb control. Given persistently elevated BS will add nutritional and basal insulin. - Holding home Trulicity in-house - FSBG with meals - Continue Moderate dose sliding scale - Continue nutritional insulin lispro 2 units w/ meals. - Continue Lantus 4 units nightly. Assessment & Plan (04/04/2025 5:43 PM EDT): Managed on Trulicity at home. Hgb A1c 5.8 on 03/11. Poor PO here. Reportedly FS are less accurate than blood draw glucose iso # Raynaud's. Noted to have elevated BS, considered to be in setting of ensure plus/clear beverages. Adjusted to boost(glucerna) for improved carb control. Given persistently elevated BS will add nutritional and basal insulin. - Holding home Trulicity in-house - FSBG with meals - Continue Moderate dose sliding scale - Continue nutritional insulin lispro 2 units w/ meals. - Continue Lantus 4 units nightly. Assessment & Plan (04/03/2025 1:14 PM EDT): Managed on Trulicity at home. Hgb A1c 5.8 on 03/11. Poor PO here. Reportedly FS are less accurate than blood draw glucose iso # Raynaud's. Noted to have elevated BS, considered to be in setting of ensure plus/clear beverages. Adjusted to boost(glucerna) for improved carb control. Given persistently elevated BS will add nutritional and basal insulin. - Holding home Trulicity in-house - FSBG with meals - Continue Moderate dose sliding scale - Start nutritional insulin lispro 2 units w/ meals. - Start Lantus 4 units nightly. Assessment & Plan (04/02/2025 5:28 PM EDT): Managed on Trulicity at home. Hgb A1c 5.8 on 03/11. Poor PO here. Reportedly FS are less accurate than blood draw glucose iso # Raynaud's. Noted to have elevated BS 04/02, considered to be in setting of ensure plus/clear beverages. Adjusted to boost(glucerna) for improved carb control. - Holding home Trulicity in-house - FSBG with meals - Continue Moderate dose sliding scale Assessment & Plan (04/01/2025 7:39 AM EDT): Managed on Trulicity at home. Hgb A1c 5.8 on 03/11. Poor PO here. Reportedly FS are less accurate than blood draw glucose iso # Raynaud's. - Holding home Trulicity in-house - FSBG with meals - Moderate dose sliding scale Assessment & Plan (03/31/2025 7:38 AM EDT): Managed on Trulicity at home. Hgb A1c 5.8 on 03/11. Poor PO here. Reportedly FS are less accurate than blood draw glucose iso # Raynaud's. - Holding home Trulicity in-house - FSBG with meals - Moderate dose sliding scale Assessment & Plan (03/30/2025 7:04 AM EDT): Managed on Trulicity at home. Hgb A1c 5.8 on 03/11. Poor PO here. Reportedly FS are less accurate than blood draw glucose iso # Raynaud's. - Holding home Trulicity in-house - FSBG with meals - Moderate dose sliding scale Assessment & Plan (03/29/2025 5:37 PM EDT): Managed on Trulicity at home. Hgb A1c 5.8 on 03/11. Poor PO here. Reportedly FS are less accurate than blood draw glucose iso # Raynaud's. - Holding home Trulicity in-house - FSBG with meals - Moderate dose sliding scale Assessment & Plan (03/28/2025 6:58 AM EDT): Managed on Trulicity at home. Hgb A1c 5.8 on 03/11. Poor PO here. Reportedly FS are less accurate than blood draw glucose iso # Raynaud's. - Holding home Trulicity in-house - FSBG Q6H + ISS Assessment & Plan (03/27/2025 7:17 AM EDT): Managed on Trulicity at home. Hgb A1c 5.8 on 03/11. Poor PO here. Reportedly FS are less accurate than blood draw glucose iso # Raynaud's. - Holding home Trulicity in-house - FSBG Q6H + ISS Assessment & Plan (03/26/2025 6:37 PM EDT): Managed on Trulicity at home. Hgb A1c 5.8 on 03/11. Poor PO here. Reportedly FS are less accurate than blood draw glucose iso # Raynaud's. - Holding home Trulicity in-house - FSBG Q6H + ISS Assessment & Plan (03/25/2025 8:54 AM EDT): Managed on Trulicity at home. Hgb A1c 5.8 on 03/11. Poor PO here. Reportedly FS are less accurate than blood draw glucose iso # Raynaud's. - Holding home Trulicity in-house - FSBG q6H + ISS Assessment & Plan (03/24/2025 2:39 PM EDT): Managed on Trulicity at home. Hgb A1c 5.8 on 03/11. Poor PO here. Reportedly FS are less accurate than blood draw glucose iso # Raynaud's. - Holding home Trulicity in-house - FSBG q6H + ISS Assessment & Plan (03/23/2025 9:02 AM EDT): Managed on Trulicity at home. Hgb A1c 5.8 on 03/11. Poor PO here. Reportedly FS are less accurate than blood draw glucose iso # Raynaud's. - Holding home Trulicity in-house - FSBG q6H + ISS Assessment & Plan (03/22/2025 10:36 AM EDT): Managed on Trulicity at home. Hgb A1c 5.8 on 03/11. Poor PO here. Reportedly FS are less accurate than blood draw glucose iso # Raynaud's. - Holding home Trulicity in-house - FSBG q6H + ISS Assessment & Plan (03/21/2025 7:24 AM EDT): Managed on Trulicity at home. Hgb A1c 5.8 on 03/11. Poor PO here. Reportedly FS are less accurate than blood draw glucose iso # Raynaud's. - Holding home Trulicity in-house - FSBG q6H + ISS Assessment & Plan (03/20/2025 2:00 PM EDT): Managed on Trulicity at home. Hgb A1c 5.8 on 03/11. Poor PO here. Reportedly FS are less accurate than blood draw glucose iso # Raynaud's. - Holding home Trulicity in-house - FSBG q6H + ISS Assessment & Plan (03/14/2025 6:54 PM EDT): -Trulicity on hold (there was a prior ICU hospitalization for persistent hypoglycemia and patient was advised to discontinue Trulicity however it appears that she is still currently on it) HgbA1c is 5.8. Blood sugars here thus far been well-controlled -Monitor point of care, cover with insulin sliding scale as needed Assessment & Plan (03/13/2025 3:14 PM EDT): -Trulicity on hold (there was a prior ICU hospitalization for persistent hypoglycemia and patient was advised to discontinue Trulicity however it appears that she is still currently on it) HgbA1c is 5.8. Blood sugars here thus far been well-controlled -Monitor point of care, cover with insulin sliding scale as needed Assessment & Plan (03/12/2025 4:32 PM EDT): -Trulicity on hold (there was a prior ICU hospitalization for persistent hypoglycemia and patient was advised to discontinue Trulicity however it appears that she is still currently on it) HgbA1c is 5.8. Blood sugars here thus far been well-controlled -Monitor point of care, cover with insulin sliding scale as needed Assessment & Plan (03/11/2025 2:39 PM EDT): -Trulicity on hold (there was a prior ICU hospitalization for persistent hypoglycemia and patient was advised to discontinue Trulicity however it appears that she is still currently on it) HgbA1c is 5.8. 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 Continue regular nightly foot spa. Carefully apply topical lidocaine Encephalopathy acute 07/26/2022 Assessment & Plan (07/28/2024 4:15 PM EST): Resolved-suspect this was due to hypoglycemia, possibly meds as well Resume home meds as tolerated - holding dextroamphetamine-amphetamine and modafinil at her request - cont as needed valium Assessment & Plan (07/27/2024 1:50 PM EST): Improved suspected this was due to hypoglycemia, possibly meds as well Resume home meds as tolerated - holding dextroamphetamine-amphetamine and modafinil at her request - cont as needed valium Assessment & Plan (07/26/2024 12:30 PM EST): Improved suspected this was due to hypoglycemia, possibly meds as well Resume home meds as tolerated - holding dextroamphetamine-amphetamine and modafinil at her request - cont as needed valium Assessment & Plan (07/25/2024 11:56 AM EST): Improved suspected this was due to hypoglycemia, possibly meds as well Resume home meds as tolerated - holding dextroamphetamine-amphetamine and modafinil at her request - cont as needed valium Assessment & Plan (07/24/2024 9:58 AM EST): Improved suspected this was due to hypoglycemia, possibly meds as well Resume home meds as tolerated 07/24 extreme anxiety, had re-started as needed valium on 07/23 - request BHRT and SW visit - holding dextroamphetamine-amphetamine and modafinil at her request Assessment & Plan (07/23/2024 4:46 PM EST): Improved suspected this was due to hypoglycemia, possibly meds as well Resume home meds as tolerated Assessment & Plan (07/22/2024 2:44 PM EST): I suspect this was due to hypoglycemia, possibly meds as well Improving Resume home meds as tolerated Headache 07/26/2022 Hypertensive urgency 07/26/2022 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 She feels that it would come right back. Seeing learning coach. Pain is getting worse. Hypokalemia 05/24/2021 Assessment & Plan (03/21/2025 10:17 AM EDT): Intermittent HypoK in low 3's iso ongoing diuresis. Refused PO KCl repletion 03/20 so given IV. K 3.6 03/21 AM. - Monitor K and Mg BID while diuresing and replete PRN - Holding home spironolactone for now (d/w renal, they want to cont to hold) Assessment & Plan (03/20/2025 2:00 PM EDT): HypoK in low 3's iso ongoing diuresis. Refusing PO KCl 03/20. - IV KCl 10 mEq q1H x 4 doses - Diuresis as elsewhere - Replete Mg PRN - Holding home spironolactone for now (d/w renal, they want to cont to hold) Assessment & Plan (05/24/2021 2:36 PM EST): Repeat BMP MJ. Cont with KCL supplements. Stage 3b chronic kidney disease 04/10/2021 Assessment & Plan (03/07/2025 11:44 PM EDT): Possibly new baseline creatinine 1.9. Creatinine has been trending up over the past 6 months ranging from 1.6-2. -Continue to monitor and follow-up with renal outpatient Assessment & Plan (02/26/2024 4:54 PM EDT): Keep well-hydrated. Avoid antibiotics, NSAIDs and other nephrotoxics. Assessment & Plan (05/21/2023 2:45 PM EST): Keep well-hydrated. Avoid antibiotics, NSAIDs and other nephrotoxics. Assessment & Plan (12/08/2022 6:54 PM EDT): Keep well-hydrated. Avoid antibiotics, NSAIDs and other nephrotoxics. Acute metabolic encephalopathy 03/23/2021 Assessment & Plan (03/25/2021 5:46 PM EDT): Likely from acute valium withdrawal. She is doing better, back to her mental baseline. She does not want to continue Zyprexa. No clinical evidence of infection. No fever, nl wbc. UA essentially normal, CXR negative. Ammonia <10. Head CT showed nothing acute. Case discussed with Dr Sung who agrees that abrupt volume cessation is the likely cause of her symptoms. He agrees with discontinuing Zyprexa, continuing Valium and starting trazodone at night. -Provigil and Adderall remain on hold, due to agitation. Diabetic polyneuropathy asso ciated with type 2 diabetes mellitus 12/13/2020 Assessment & Plan (05/21/2023 2:47 PM EST): She finds lidocaine patches somewhat helpful and requests refills so she can tolerate the pain. Assessment & Plan (11/20/2022 3:14 PM EDT): She finds lidocaine patches somewhat helpful and requests refills so she can tolerate the pain. Assessment & Plan (09/28/2021 12:30 PM EDT): She finds lidocaine patches somewhat helpful and requests refills so she can tolerate the pain. Assessment & Plan (03/20/2021 12:01 AM EDT): POC's and SSI while here Diabetic diet Assessment & Plan (12/17/2020 2:36 PM EDT): She finds lidocaine patches somewhat helpful and requests refills so she can tolerate the pain. Anticoagulated 12/13/2020 Assessment & Plan (05/21/2023 2:47 PM EST): Continue Eliquis as prescribed due to history of saddle pulmonary emboli. Avoid falls, injuries and cuts. Monitor for excessive bruising and bleeding. 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 Avoid falls, injuries and cuts. Monitor for excessive bruising and bleeding. Assessment & Plan (09/28/2021 12:29 PM EDT): Avoid falls, injuries and cuts. Monitor for excessive bruising and bleeding. Assessment & Plan (03/20/2021 12:00 AM EDT): Continue Eliquis for hx of PE's Assessment & Plan (12/13/2020 11:38 AM EDT): Avoid falls, injuries and cuts. Monitor for excessive bruising and bleeding. Dysautonomia 09/18/2020 Assessment & Plan (10/22/2021 10:37 AM EDT): Patient is needing stockings that going up past the waist. She will try to get the waist length from a ballet store. Assessment & Plan (09/28/2021 12:30 PM EDT): Continue midodrine, compression stockings and Pedialyte prior to exertion as instructed by her chassis wirer and neurologist-close follow-up as scheduled. Assessment & Plan (05/24/2021 2:34 PM EST): Recommend compression stockings. Send to [facility]. Assessment & Plan (12/17/2020 2:38 PM EDT): Continue midodrine, compression stockings and Pedialyte prior to exertion as instructed by her chassis wirer and neurologist-close follow-up as scheduled. Assessment & Plan (12/06/2020 2:46 PM EDT): Continue with the midodrine. Continue with compression stockings and using Pedialyte prior to exertion. Needs to stay well-hydrated. Had to ED visits requiring IV fluids. Follow-up skin biopsy done last week. She will be seeing her neurologist soon. Assessment & Plan (09/18/2020 11:28 AM EDT): Patient does seem to have testing consistent with dysautonomia. Will likely need a nerve biopsy. Patient to f/u with Dr. Sewell whom I hope will have some connections there. In the meanwhile I have ordered some compression stockings and advised taking Pedialyte (because she can't drink sugar-free gatorade) prior to exertion. JERRELL (obstructive sleep apnea) 09/18/2020 Assessment & Plan (03/14/2024 7:57 PM EDT): Initially had difficulty using CPAP though lately reports severe burning in her throat with nightly use. Contact the supplier and treating chassis wirer/sleep specialist to discuss adjustments/different options. Assessment & Plan (02/05/2024 2:08 PM EDT): Reports of chronic fatigue and poor sleep quality. Previous non-compliance with CPAP therapy. -Encouraged to try using CPAP machine again, initially during waking hours to acclimate to the device. -If needed, can order CPAP supplies. Assessment & Plan (02/15/2021 12:58 PM EDT): Encouraged f/u with CPAP. Assessment & Plan (12/06/2020 2:47 PM EDT): CPAP titration study performed last week. Again waiting for the study. I think CPAP with help her quite a bit. Assessment & Plan (09/18/2020 11:29 AM EDT): Mild JERRELL but sxs severe. Waking up gasping for air in the middle of the night. This would not be explained by dysautonomia. Recommend CPAP titration study. Patient is agreeable. New daily persistent headache 07/18/2020 Assessment & Plan (07/18/2020 5:30 PM EST): Patient complaining of headaches and nausea. Also has been falling frequently listing to the right side. Last MRI was couple of years ago. Will repeat MRI now. We hope that these are not signs of increasing intracranial pressure. Patient does have a neurologist who I hope will have access to these results. Monilial esophagitis 04/14/2020 Assessment & Plan (04/14/2020 2:13 PM EST): Signs and sxs consistent with monilial esophagitis. Will treat with Diflucan for 21 days. Patient does not wish to proceed with a barium swallow at this time. Constipation 03/29/2020 Assessment & Plan (07/28/2024 4:15 PM EST): - reviewed home med list and med dispense hx- dont see bowel meds, consistent with her report that she has been using various over the counter options -Underwent colon prep while hospitalized Assessment & Plan (07/27/2024 1:50 PM EST): - reviewed home med list and med dispense hx- dont see bowel meds, consistent with her report that she has been using various over the counter options - as needed oral bisacodyl as she requested - continue to discuss potential bowel regimen options - Colon prep continues Assessment & Plan (07/26/2024 12:30 PM EST): - reviewed home med list and med dispense hx- dont see bowel meds, consistent with her report that she has been using various over the counter options - as needed oral bisacodyl as she requested - continue to discuss potential bowel regimen options -Plans for colon prep later this evening Assessment & Plan (07/25/2024 11:56 AM EST): - reviewed home med list and med dispense hx- dont see bowel meds, consistent with her report that she has been using various over the counter options - here as needed oral bisacodyl as she requested - last BM 07/24 but she feels there is still stool to clear and certainly many options that could be given orally today but she is declining bowel meds until after procedure tomorrow - offered suppository 07/25 which may have a quicker effect, declined - continue to discuss potential bowel regimen options Assessment & Plan (06/12/2023 12:54 PM EST): She has chronic constipation relating to MS, chronic opioid use, immobility -- Give fleets enema now. Continue senna and MiraLAX Assessment & Plan (03/29/2020 4:31 PM EDT): - fleet enema today - she is one increased opiates now, discussed with her, should increase oral bowel regimen, consider senna, miralax, discussed lactulose but will likely worse blood sugars - constipation may be contributing to RUQ tenderness - in addition to pleuritic pain from PE Other chest pain 03/28/2020 Assessment & Plan (08/06/2023 1:42 PM EST): Patient is not due to see a hematology specialist for another month. Not actively having chest pain now but I do worry about coronary artery disease given her history of NH and stent over 10 years ago. I will order a stress test prior to her visit with her hematology specialist. She did have an echo as an inpatient a few weeks ago that had a normal ejection fraction. Assessment & Plan (06/12/2023 12:55 PM EST): Chest pain is relieved by rubbing the sternum. Suspect this is related to anxiety. Troponin levels normal. EKG did not show ischemic changes -- Symptoms have resolved. Will continue to monitor Assessment & Plan (07/18/2022 1:44 PM EST): Twelve-lead EKG obtained in the office. Does look like atrial fibrillation though she does not carry this diagnosis. Could be a few PACs. Recommend she follow-up with cardiology. Also the abnormalities on her potassium and magnesium could be contributing to an arrhythmia. I will send a message to Dr. Sanchez. If she is in A-fib then that could be the cause of her more recent symptoms. Assessment & Plan (09/26/2021 4:02 PM EDT): Atypical. Nonexertional. No indication that her known CAD is progressing or worsening based on symptoms reported. Assessment & Plan (02/15/2021 1:01 PM EDT): Will repeat CTPA to see if there is a chronic clot causing her unusual chest pain. Assessment & Plan (03/28/2020 12:26 PM EDT): Right-sided chest pain with tenderness on palpation under the right breast. It is also pleuritic in nature. Some of this is likely related to right pulmonary infarct resulting in pleuritic pain. There appears to also be a musculoskeletal component with tenderness to palpation on exam. Per patient, lidocaine patches have not helped. Could try warm compress, Tylenol as needed. NSAIDs would be contraindicated given the patient's history of coronary disease. Acute saddle pulmonary embolism 03/26/2020 Assessment & Plan (03/27/2025 6:39 PM EDT): #History of CVA Unprovoked PE in 2020 with pulmonary infarct in the RLL and RML, also c/b # CVA. Has been on apixaban since with plan for lifelong AC. Apixaban held on admission iso # coagulopathy, now holding in setting of colitis. - Apixaban & heparin gtt held iso SDH, resume as able. Assessment & Plan (03/26/2025 6:37 PM EDT): #History of CVA Unprovoked PE in 2019 with pulmonary infarct in the RLL and RML, also c/b # CVA. Has been on apixaban since with plan for lifelong AC. Apixaban held on admission iso # coagulopathy, now holding in setting of colitis. - Apixaban & heparin gtt held iso SDH, resume as able. Assessment & Plan (03/25/2025 8:54 AM EDT): #History of CVA Unprovoked PE in 2019 with pulmonary infarct in the RLL and RML, also c/b # CVA. Has been on apixaban since with plan for lifelong AC. Apixaban held on admission iso # coagulopathy, now holding in setting of colitis. - Apixaban on hold while on heparin gtt, resume as able. Assessment & Plan (03/24/2025 2:39 PM EDT): #History of CVA Unprovoked PE in 2019 with pulmonary infarct in the RLL and RML, also c/b # CVA. Has been on apixaban since with plan for lifelong AC. Apixaban held on admission iso # coagulopathy, now holding in setting of colitis. - Apixaban on hold while on heparin gtt, resume as able. Assessment & Plan (03/23/2025 9:02 AM EDT): #History of CVA Unprovoked PE in 2019 with pulmonary infarct in the RLL and RML, also c/b # CVA. Has been on apixaban since with plan for lifelong AC. Apixaban held on admission iso # coagulopathy, now holding in setting of colitis. - Apixaban on hold while on heparin gtt, resume as able. Assessment & Plan (03/22/2025 2:00 PM EDT): #History of CVA Unprovoked PE in 2019 with pulmonary infarct in the RLL and RML, also c/b # CVA. Has been on apixaban since with plan for lifelong AC. Apixaban held on admission iso # coagulopathy, now holding in setting of colitis. - Apixaban on hold while on heparin gtt, resume as able. Assessment & Plan (03/21/2025 10:17 AM EDT): Unprovoked PE in 2019 with pulmonary infarct in the RLL and RML, also c/b # CVA. Has been on apixaban since with plan for lifelong AC. Apixaban held on admission iso # coagulopathy, resumed 03/21 once INR<2. - Cont home apixaban 5mg BID Assessment & Plan (03/20/2025 2:00 PM EDT): Unprovoked PE in 2019 with pulmonary infarct in the RLL and RML, also c/b # CVA. Has been on apixaban since with plan for lifelong AC. - Holding home apixaban for now iso # coagulopathy Assessment & Plan (12/17/2022 5:08 PM EDT): Continue with Eliquis 2.5 mg twice daily. Assessment & Plan (07/18/2022 1:45 PM EST): History of unprovoked PE. Continue with Eliquis 2.5 twice daily. Assessment & Plan (03/23/2021 7:11 PM EDT): Continue Eliquis BID. Assessment & Plan (12/06/2020 2:46 PM EDT): Continue with lifelong anticoagulation. Assessment & Plan (04/14/2020 2:12 PM EST): Continue with Eliquis. Hopefully her symptoms are not side effects of that medication. Assessment & Plan (03/28/2020 12:29 PM EDT): Patient presented with acute onset of right-sided pleuritic chest pain and subacute worsening of dyspnea. CTA chest from 03/26/2020 notable for saddle PE and pulmonary infarct in the right lower lobe and right middle lobe. No radiographic or EKG evidence of right heart strain, normal RV on echo, and cardiac biomarkers not elevated. Suspect subacute PE resulting for recent worsening of her dyspnea. Despite significant clot burden, no indication for thrombolytic therapy or catheter directed thrombolysis. Bilateral lower extremity Doppler ultrasound negative for DVT. She was transitioned from heparin drip to apixaban today. Very discouraged about her overall health. Recommendations in brief: -Agree with transition to apixaban -No obvious provoking factor identified to date (patient was on vaginal estradiol but this would seem to be an unlikely precipitant) so for now, patient should continue indefinite anticoagulation -Hypercoagulable work-up in the outpatient setting -Incentive spirometry, out of bed Assessment & Plan (03/29/2020 4:28 PM EDT): -- and right sided infarct - cont apixaban - feel she needs life long anticoagulation - severe pleuritic pain: trial off IV meds, using oral morphine and lidocaine (can't take NSAIDs or acetaminophen) - also has diazepam which she uses chronically - f/u GILBERTO (recommended by Dr. Schmitt, was positive in 2018) - can discuss age appropriate cancer screening with PCP - encouraged patient will need to stop vaginal estogen, restaurant line cook recommends can use coconut oil or A+D ointment, she had more questions about this and I asked women's health triage nurse to see if office could answer some of her questions, she will need follow up visit Assessment & Plan (03/26/2020 9:31 AM EDT): Acute versus subacute pulmonary embolism. Given history, very likely a subacute PE accounting for recent worsening dyspnea, followed by secondary acute thromboembolism with right infarct causing pleuritic pain and current medical evaluation. Radiographic finding of saddle thromboembolism, right middle/lower lobe infarct but stable hemodynamics, no oxygen requirement, normal EKG with normal troponin and BNP. Despite significant clot burden and radiographic changes, no features indicating need for ICU monitoring and no indication for thrombolytic therapy. RECOMMENDATION: Agree with fractionated heparin bolus followed by drip. Patient upon discharge would likely benefit most from DOAC therapy, and given comorbidities, will require lifelong anticoagulation. Echocardiogram ordered to rule out right heart strain. Lower extremity Dopplers ordered to rule out occult DVT. Pain control for right-sided pleurisy related to pulmonary infarct. Incentive spirometry. Infiltrate relatively small in associated area of infarct, further bleeding risk relatively low despite full anticoagulation. Close monitoring however certainly is warranted. Recommend limited hypercoagulable work-up to include repeat GILBERTO, rheumatoid factor, and lupus anticoagulant. Stable to admit to telemetry. Impression reviewed with emergency room physician and covering hospitalist. Pulmonary service will continue to follow. Low threshold for reevaluation and transfer to ICU if evidence of clinical deterioration. Hypomagnesemia 03/26/2020 Assessment & Plan (02/26/2024 5:00 PM EDT): Check serum level to make sure that she does not require additional supplementation Assessment & Plan (09/28/2021 12:30 PM EDT): Check serum level to make sure that she does not require additional supplementation Assessment & Plan (12/17/2020 2:35 PM EDT): Check serum level to make sure that she does not require additional supplementation Assessment & Plan (03/28/2020 11:43 AM EDT): -improved cont large oral dose she takes chronically Oropharyngeal dysphagia 11/24/2019 Assessment & Plan (02/15/2021 1:02 PM EDT): Check modified barium swallow. Previously improved with Diflucan. Assessment & Plan (12/31/2019 12:54 PM EDT): Much improved after Diflucan. Assessment & Plan (11/24/2019 11:19 AM EDT): Though I am certain some of this has to do with the multiple sclerosis, I cannot exclude that a monilial esophagitis is not to be contributing. At least this is something we can treat. I will give her Diflucan for 14 days. She is continually aspirating due to it her esophagitis perhaps we can treat the underlying problem and not have this problem anymore. Esophageal dysmotility 11/19/2019 Assessment & Plan (03/24/2020 1:21 PM EDT): Continue speech therapy guided safe swallowing techniques. Keep a diary of episodes with modifying factors. Seek help if increasing frequency/severity of episodes. Assessment & Plan (11/20/2019 5:17 PM EDT): Continue speech therapy guided safe swallowing techniques. Opiate use 07/02/2019 Assessment & Plan (02/26/2024 4:54 PM EDT): Take exactly as prescribed, try to limit frequency by employing non-for pharmacologic measures such as topical creams, warm packs, patches, regular relaxation/mediation/positive imagery sessions etc. Build up regular exercise routine up to the goal of 30-45 minutes daily. Monitor for increasing shortness of breath, reduced respiratory drive, increasing constipation Assessment & Plan (06/07/2023 1:20 PM EST): Resume home dose of morphine Assessment & Plan (05/21/2023 2:53 PM EST): Take exactly as prescribed, try to limit frequency by employing non-for pharmacologic measures such as topical creams, warm packs, patches, regular relaxation/mediation/positive imagery sessions etc. Build up regular exercise routine up to the goal of 30-45 minutes daily. Monitor for increasing shortness of breath, reduced respiratory drive, increasing constipation Assessment & Plan (09/28/2021 12:31 PM EDT): Take exactly as prescribed, try to limit frequency by employing non-for pharmacologic measures such as topical creams, warm packs, patches, regular relaxation/mediation/positive imagery sessions etc. Build up regular exercise routine up to the goal of 30-45 minutes daily. Monitor for increasing shortness of breath, reduced respiratory drive, increasing constipation Assessment & Plan (03/20/2021 12:01 AM EDT): Chronic use, Verified in PDMP Continue home dosing of controlled narcotic and benzo Assessment & Plan (12/17/2020 2:38 PM EDT): Take exactly as prescribed, try to limit frequency by employing non-for pharmacologic measures such as topical creams, warm packs, patches, regular relaxation/mediation/positive imagery sessions etc. Build up regular exercise routine up to the goal of 30-45 minutes daily. Monitor for increasing shortness of breath, reduced respiratory drive, increasing constipation Assessment & Plan (10/02/2019 11:11 AM EDT): Take exactly as prescribed, try to limit frequency by employing non-for pharmacologic measures such as topical creams, warm packs, patches, regular relaxation/mediation/positive imagery sessions etc. Build up regular exercise routine up to the goal of 30-45 minutes daily. Monitor for increasing shortness of breath, reduced respiratory drive, increasing constipation Assessment & Plan (07/02/2019 9:35 AM EST): Take exactly as prescribed, try to limit frequency by employing non-for pharmacologic measures such as topical creams, warm packs, patches, regular relaxation/mediation/positive imagery sessions etc. Build up regular exercise routine up to the goal of 30-45 minutes daily. Monitor for increasing shortness of breath, reduced respiratory drive, increasing constipation Acute diarrhea 06/13/2019 Assessment & Plan (06/14/2019 9:57 AM EST): The patient believes that her diarrhea is due to a single dose of linaclotide that she took in the morning before her diarrhea started. She has had no further episodes of diarrhea during her admission. She was hydrated with IVF. Acute kidney injury superimposed on chronic kidn ey disease 06/13/2019 Assessment & Plan (07/28/2024 4:15 PM EST): - baseline creatinine appears to be 1.2 (December 2023), peaked at 4.2 -gradual improvement 1.2 - holding spironolactone and lisinopril (renal function improving but blood pressures intermittently low) Assessment & Plan (07/27/2024 1:50 PM EST): - baseline creatinine appears to be 1.2 (December 2023), peaked at 4.2 -gradual improvement 1.2 - holding spironolactone and lisinopril (renal function improving but blood pressures intermittently low) Assessment & Plan (07/26/2024 12:30 PM EST): - baseline creatinine appears to be 1.2 (December 2023), peaked at 4.2 -gradual improvement 1.3 - holding spironolactone and lisinopril (renal function improving but blood pressures intermittently low) -cont IVF while prep for CLS underway Assessment & Plan (07/25/2024 12:12 PM EST): -Renal function improving (creatinine 1.5 mg/dL today) doing well off of IV fluids -Dosing meds for eGFR < 45 mL/min -Given labile BP readings, I would continue holding ACEi and spironolactone for now -Continue to monitor chemistries blood cultures urine culture and urine output. Assessment & Plan (07/25/2024 11:56 AM EST): - baseline creatinine appears to be 1.2 (December 2023), peaked at 4.2 Renal following Continue to monitor -gradual improvement - holding spironolactone and lisinopril (renal function improving but blood pressures intermittently low) - 07/23 re-started clonidine - 2/15 off IVF Assessment & Plan (07/24/2024 9:58 AM EST): - baseline creatinine appears to be 1.2 (December 2023), peaked at 4.2 Renal following Continue to monitor -gradual improvement - holding spironolactone and lisinopril - 07/23 re-started clonidine - 2/15 off IVF Assessment & Plan (07/24/2024 7:52 AM EST): -Renal function improving (creatinine 1.7 mg/dL today) ok to stop IV fluids at this time as long as adequate PO intake. -Dosing meds for eGFR < 45 mL/min -OK to continue holding ACEi and spironolactone for now -Continue to monitor chemistries blood cultures urine culture and urine output. Assessment & Plan (07/23/2024 4:46 PM EST): - baseline creatinine appears to be 1.2 (December 2023), peaked at 4.2 Renal following Continue to monitor - thus far, modest improvement, cont IVF as recommended by Dr. Bucio - holding spironolactone and lisinopril - 07/23 re-start clonidine Assessment & Plan (07/23/2024 9:03 AM EST): -Renal function improving on IV fluids could potentially continue for another 24 hours. Fortunately hypoglycemia has resolved. -Continue to monitor chemistries blood cultures urine culture and urine output. Assessment & Plan (07/22/2024 2:44 PM EST): Likely prerenal, responding to resuscitation Renal following Continue to monitor Assessment & Plan (07/22/2024 9:09 AM EST): -Renal function improving on IV fluids continue with IV fluids as you are doing. -Could switch fluids to D5 NS. -Continue to monitor chemistries blood cultures urine culture and urine output. Assessment & Plan (03/23/2021 7:16 PM EDT): Continue to hold aldactone; encourage oral hydration; continues to slowly improve. Assessment & Plan (03/20/2021 12:00 AM EDT): Mild SANDRA bump from 1.2 -> 1.9, with reassuring UA. No clear etiology Urine FeNa pending US renal pending for structural abnormalities as well. BP's normal range currently, will monitor. Expect if there is modest renal function improvement she could follow up with scheduled outpatient evaluation with Nephrology on 04/09 as she reports. Will continue to hold spironolactone as PCP advised. Assessment & Plan (06/14/2019 9:58 AM EST): The patient's baseline creatinine appears to be 0.9 and today is 1.3. She appears to be suffering from acute kidney injury due to volume depletion. She was hydrated with IVF with normalized kidney function Confusion and disorientation 04/28/2019 Assessment & Plan (04/28/2019 3:30 PM EST): Patient had some admissions with aphasia and disorientation. Subsequent MR brain confirmed CVA. However does have fecal incontinence with these episodes. Will check EEG. Asthma 04/26/2019 Assessment & Plan (03/21/2025 10:17 AM EDT): Follows with [facility] Dr Gutierrez, managed on azithromycin 250mg daily and dupixent, not on any inhalers. No wheezing or cough currently, stable on RA. - Holding home azithromycin and dupixent for now; unclear when last dupixent dose was (q14 days) - Cont home singulair - Albuterol INH PRN Assessment & Plan (03/20/2025 2:00 PM EDT): Follows with [facility] Dr Gutierrez, managed on azithromycin 250mg daily and dupixent, not on any inhalers. No wheezing or cough currently, stable on RA. - Holding home azithromycin and dupixent for now; unclear when last dupixent dose was (q14 days) Assessment & Plan (03/14/2025 6:54 PM EDT): - Stable. Currently no wheezing -Continue albuterol, hypersal, empiric azithro Assessment & Plan (03/13/2025 3:14 PM EDT): - Stable. Currently no wheezing -Continue albuterol, hypersal, empiric azithro Assessment & Plan (03/12/2025 4:32 PM EDT): - Stable. Currently no wheezing -Continue albuterol, hypersal, empiric azithro Assessment & Plan (03/11/2025 2:39 PM EDT): - Stable. Currently no wheezing -Continue albuterol, hypersal, empiric azithro Assessment & Plan (03/10/2025 8:22 PM EDT): -Currently no wheezing -Continue albuterol, hypersal, empiric azithro Assessment & Plan (03/07/2025 11:44 PM EDT): History of asthma followed by Dr. Gutierrez, on daily azithromycin, twice daily hypersaline nebs, and albuterol as needed. No evidence of acute exacerbation. -Continue home medications. Assessment & Plan (02/23/2025 4:02 PM EDT): Reports recent episode of increased mucus production and difficulty breathing, managed with Robitussin. Continues on Dupixent and azithromycin, which are generally effective. No current use of inhalers or oxygen due to throat irritation. No recent chest x-ray changes. - Continue Dupixent and azithromycin with refills for a year. - Use Robitussin as needed for mucus management. - Order chest x-ray if significant increase in cough or sputum production. Orders: albuterol 2.5 mg /3 mL (0.083 %) nebulizer solution; Take 3 mL (2.5 mg total) by nebulization every 6 (six) hours as needed for wheezing. azithromycin (ZITHROMAX) 250 MG tablet; Take 1 tablet (250 mg total) by mouth daily. sodium chloride (HYPERSAL) 7 % Nebu; Take 4 mL by nebulization 2 (two) times a day. Assessment & Plan (02/05/2024 2:08 PM EDT): Improvement in symptoms with Dupixent and azithromycin. No current cough or phlegm production. -Continue Dupixent and azithromycin. -Perform EKG to rule out cardiac arrhythmias secondary to azithromycin use. Steroid Use Currently on 2mg Medrol daily with plan to taper off. Reports of bruising likely secondary to steroid use. -Taper Medrol to 2mg every other day for two weeks, then discontinue. -Monitor for signs of adrenal insufficiency (increased fatigue). Assessment & Plan (10/09/2023 4:38 PM EDT): Steroid Use: Patient is currently on 4mg of steroids daily and is experiencing side effects such as bruising. She expresses a desire to reduce steroid use. -Reduce steroid dose to 2mg daily. Monitor for any worsening of respiratory symptoms. Dupixent Therapy: Patient has been on Dupixent for approximately six weeks for an unspecified condition. She reports missing one and a half doses. -Continue Dupixent therapy for a full six months before assessing efficacy. Assessment & Plan (08/06/2023 1:41 PM EST): Continue with the 4 mg of Medrol until 2 doses of Dupixent is ended. Then drop to 2 mg daily of Medrol. After her third dose of Dupixent we will see how she is feeling and then perhaps discontinue this. Continue with the standing azithromycin. Patient is intolerant of all inhalers. Assessment & Plan (06/11/2023 3:20 PM EST): Followed by Dr. Gutierrez. On chronic solumedrol and azithromycin. Continue home meds. -- Resume home dose steroids after completion of IV and oral pulse Assessment & Plan (04/22/2023 10:59 AM EST): Continue with Medrol at 4 mg daily. If she thinks the dosing is too high it is okay with me to drop it after 30 days to 2 mg daily. I do think since she is now steroid-dependent asthma that we should add Dupixent. She is agreeable. We will also continue standing azithromycin. Patient is intolerant of all inhalers. Assessment & Plan (03/05/2023 11:37 AM EDT): Patient is intolerant of inhalers and prednisone. Continue with montelukast. We will plan to check blood work at next visit when she is not sick to see if she is a candidate for some of the Biologics. Assessment & Plan (12/17/2022 5:08 PM EDT): Continue with montelukast and Acapella valve. I wonder if she would be a candidate for some of the Biologics. We will plan to check some blood work for that at her next visit if she remains short of breath. Assessment & Plan (07/18/2022 1:44 PM EST): Continue with montelukast and Acapella valve. Unfortunately she is unable to tolerate any inhalers or steroids. Assessment & Plan (10/22/2021 10:33 AM EDT): Cont montelukast. Acapella valve. Assessment & Plan (05/24/2021 2:35 PM EST): Cont Spiriva, montelukast Assessment & Plan (02/15/2021 12:57 PM EDT): Cont with Spiriva and montelukast. Assessment & Plan (04/14/2020 2:13 PM EST): History of questionable asthma. Continue Spiriva and montelukast. Assessment & Plan (03/26/2020 9:18 AM EDT): History of questionable asthma. Would hold all inhalers at this time. Can continue montelukast. Use albuterol MDI as needed. Assessment & Plan (03/10/2020 1:15 PM EDT): We will continue with the Spiriva. Assessment & Plan (12/31/2019 12:53 PM EDT): Continue with Spiriva. Offered stiolto but she thinks her insurance won't pay for it and she can't afford it. Assessment & Plan (11/24/2019 11:18 AM EDT): Continue with Spiriva and albuterol inhaler despite the uncomfortable feeling on her vocal cords. No steroids have not helped her breathing in the past and are detrimental to her multiple sclerosis according to her doctors. Assessment & Plan (09/29/2019 9:58 AM EDT): Will add albuterol inhaler PRN and standing Spiriva for asthma. Assessment & Plan (07/23/2019 1:12 PM EST): Has never done well with inhalers but will try with Anoro. Assessment & Plan (04/28/2019 3:28 PM EST): Asthma noted on PFTs, but patient never improved on inhalers. Will hold off. Cognitive change 03/18/2019 Atrial ectopy 12/18/2018 Assessment & Plan (12/18/2018 9:05 AM EDT): Fairly frequent atrial ectopy with short atrial runs but no atrial fibrillation. She is unaware of this dysrhythmia and I have occasions for this. Shortness of breath 12/06/2018 Assessment & Plan (02/23/2025 4:02 PM EDT): Recommend repeat CBC and BMP given the abnormalities noted at last ED visit. Would also repeat CXR. She's not able to drive so these things are tricky. She is planning on following up with her PCP for this. Orders: albuterol 2.5 mg /3 mL (0.083 %) nebulizer solution; Take 3 mL (2.5 mg total) by nebulization every 6 (six) hours as needed for wheezing. sodium chloride (HYPERSAL) 7 % Nebu; Take 4 mL by nebulization 2 (two) times a day. XR Chest; Future CBC and differential; Future Basic metabolic panel; Future Assessment & Plan (05/24/2024 12:57 PM EST): Continues to report shortness of breath which is chronic, ongoing. She does follow with Dr. Gutierrez Assessment & Plan (10/09/2023 4:39 PM EDT): Patient reports shortness of breath with minimal exertion. CT scan shows ground glass nodules and a cyst, but overall lung appearance is good. Mild emphysema noted, likely due to past smoking history. Patient has a history of MS, which may be contributing to her symptoms. -Order an incentive spirometer for the patient to use at home to improve lung capacity and potentially alleviate symptoms. -Consider a repeat pulmonary function test if symptoms persist despite use of the spirometer. Assessment & Plan (03/05/2023 11:37 AM EDT): Recommend starting Mucinex at 600 mg twice daily for a week and then increasing to 1200 mg twice daily. My recollection is that she had some pain in her chest when she was on that medication previously. She should drink plenty of water. Continue with Acapella valve. I do think she should try to sterilize it before her next use. We will try to get her a new device as well. Assessment & Plan (12/17/2022 5:07 PM EDT): I do think that a lot of her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 in a diet. Assessment & Plan (08/06/2018 7:56 PM EST): Begin insulin lispro SC injection Hold dulaglutide (trulicity) POCT glucose 4 times daily before meals and at bedtime Assessment & Plan (05/14/2018 2:27 PM EST): Controlled. The hemoglobin A1c has increased from 6.2-6.7%. However based on this hemoglobin A1c she has excellent glycemic control. She is doing well on Trulicity 1.5 mg and I do not see any reason to change it. She will follow in 6 months time. Assessment & Plan (10/18/2017 5:24 PM EDT): Trulicity nonformulary. Since her intake is minimal at this time we will just check her sugars and use sliding scale insulin if needed Multiple sclerosis 04/29/2017 Assessment & Plan (03/21/2025 7:24 AM EDT): Follows with [facility] neurology Dr. Carter for long-standing hx MS. Recent MRI brain 03/05 showed no changes in white matter lesions or evidence of progressive disease. - Holding home amantadine, adderall for now - Cont home modafinil 100mg BID Assessment & Plan (03/20/2025 2:00 PM EDT): Follows with [facility] neurology Dr. Carter for long-standing hx MS. Recent MRI brain 03/05 showed no changes in white matter lesions or evidence of progressive disease. - Holding home amantadine, adderall for now - Cont home modafinil 100mg BID Assessment & Plan (03/14/2025 6:54 PM EDT): -Not on any treatment at this time Assessment & Plan (03/13/2025 3:14 PM EDT): -Not on any treatment at this time Assessment & Plan (03/12/2025 4:32 PM EDT): -Not on any treatment at this time Assessment & Plan (03/11/2025 2:39 PM EDT): -Not on any treatment at this time Assessment & Plan (03/10/2025 8:22 PM EDT): -Not on any treatment at this time Assessment & Plan (03/07/2025 11:44 PM EDT): Patient has a history of multiple sclerosis diagnosed in 1995 followed by [facility] neurology, not currently on treatment. Experiencing increasing neurological complications with cognitive/speech/mobility. Had a recent MRI which is pending review by her neurologist. - Fall precaution -Continue management as above -Will need follow-up with [facility] for treatment plan options Assessment & Plan (07/28/2024 4:15 PM EST): 07/[address] Kenneth Carter [facility] neuro office, held and ultimately left a message - 07/25 resumed home med amantadine (renally dosed) - methenamine prophylaxis held while renal function improving; resume at discharge Assessment & Plan (07/27/2024 1:50 PM EST): 07/[address] Kenneth Carter [facility] neuro office, held and ultimately left a message - 07/25 resumed home med amantadine (renally dosed) - methenamine prophylaxis held while renal function improving; resume at discharge Assessment & Plan (07/26/2024 12:30 PM EST): 07/[address] Kenneth Carter [facility] neuro office, held and ultimately left a message - 07/25 resumed home med amantadine (renally dosed) - methenamine prophylaxis held while renal function improving Assessment & Plan (07/25/2024 11:56 AM EST): 07/[address] Kenneth Carter [facility] neuro office, held and ultimately left a message - 07/25 resumed home med amantadine (renally dosed) - methenamine prophylaxis held while renal function improving Assessment & Plan (07/24/2024 9:58 AM EST): 07/[address] Kenneth Carter [facility] neuro office, held and ultimately left a message Assessment & Plan (07/23/2024 4:46 PM EST): Called her neurologist Dr. Kenneth Carter [facility] neuro office, held and ultimately left a message Assessment & Plan (07/22/2024 2:44 PM EST): Patient describing increased weakness and falls she feels could be due to an MS flare. I called her neurologists office twice with no answer. Assessment & Plan (03/14/2024 7:59 PM EDT): Continue diazepam as prescribed. Reach out to MS support group to access needed services. Close follow-up with treating neurologist exactly as scheduled. Assessment & Plan (02/05/2024 2:07 PM EDT): Reports of fatigue and difficulty with fine motor skills. Discussed the impact of MS on daily life and the patient's frustration with her current state. -Encouraged to continue current MS management. -Consider reaching out to MS Society for caregiver resources. Assessment & Plan (06/12/2023 12:54 PM EST): MRI brain 05/27 and MRI cervical spine 06/10 unchanged. 06/10: Hospitalist called her outpatient Neurologist, Dr. Kenneth Carter. He is on vacation, but I spoke to one of his colleagues, Dr Debbie Diaz. On speakerphone, Dr Diaz interviewed the patient and felt the patient's new blurry vision symptom and the fact that her chronic symptoms are still worse is suggestive of MS flare. Dr Ashton recommended initiation of IV steroids. - treat with solumedrol 1g daily (06/10-06/12), to be followed by 5 day prednisone taper (50/40/30/20/10mg) - while getting IV steroids, daily BMP --Watching glucose. Will give insulin - Neurology suggests consideration of workup for adrenal insufficiency as outpatient. Orthostatic hypotension here is probably related to autonomic dysregulation as she is currently receiving high-dose steroids - of note, patient is a steroid dependent asthmatic, takes medrol 4mg daily per Dr Gutierrez. After prednisone taper, should return to prior medrol regimen. Assessment & Plan (05/28/2023 5:46 PM EST): Acute on chronic nausea and lower extremity pain. ED discussed the case with teleneurology who was concerned of possible MS exacerbation. Recommended giving Solu-Medrol 1000 mg daily x 3 days ONLY IF MRI brain shows an enhancing lesion. MRI brain showed no new lesions, so no solu-medrol indicated. Will provide symptomatic relief of her nausea and lower extremity pain. -- PT following -- Oral Dulcolax for constipation --Neurologist is at [facility] Assessment & Plan (04/22/2023 11:00 AM EST): Not sure if symptoms are related to MS at all. Should improve with the medrol as well if so. Assessment & Plan (03/26/2020 12:53 PM EDT): - cont home med: amantidine - cont urine prophylaxis Assessment & Plan (10/02/2019 11:08 AM EDT): Continue diazepam as prescribed. Close follow-up with treating neurologist. Assessment & Plan (07/23/2019 1:11 PM EST): Progressive symptoms. Following with doctor in [place]. Considering switching to another group in [place] that might be closer. Assessment & Plan (07/02/2019 9:31 AM EST): Continue diazepam as prescribed. Close follow-up with treating neurologist. Assessment & Plan (05/13/2019 5:54 PM EST): Continue diazepam as prescribed. Close follow-up with treating neurologist. Assessment & Plan (04/28/2019 3:28 PM EST): Suspect much of her sxs are progressive MS. She has a neurologist at [facility]. Will try a dose of Kenalog 80mg IM. Assessment & Plan (12/06/2018 11:20 AM EDT): Has not found any benefit from prednisone in the past. She does see a new neurologist at [place]. Perhaps they will have other ideas dyspnea. Ho help the underlying problem that is causing her dyspnea. Assessment & Plan (10/17/2018 12:10 PM EDT): Continue diazepam and Ampyra (dalfampridine) as prescribed. Close follow-up with treating neurologist. Assessment & Plan (08/06/2018 8:20 PM EST): Continue Dalfampridine (ampyra) 10mg BID BID Continue diazepam Assessment & Plan (10/18/2017 5:21 PM EDT): Her medication is non-form Assessment & Plan (07/02/2017 10:00 AM EST): Assessment This is a 57 year old woman with a >20 year history of multiple sclerosis. She presents today for a second opinion seeking a unifying diagnosis of her numerous neurological and systemic symptoms. In retrospect it is very difficult to assess the initial diagnosis of multiple sclerosis. Over the years she certainly has not had symptoms consistent with multiple sclerosis relapses, and it would not explain her numerous symptoms. It is possible that this is a benign form of multiple sclerosis, alternatively the white matter changes on her Brain MRI could be explained by migraine and vascular risk factors. The lesion in the spinal cord could represent a demyelinating event, or other process such as a vascular event. Regardless, disease modifying therapy is not indicated given her relative stability of many years. With regards to her numerous other symptoms, we discussed that there may not be an underlying unifying diagnosis, but it is more likely that these are contributed to by her multiple chronic medical problems. This includes diabetes complicated by a neuropathy confirmed by EMG, fibromyalgia on chronic opiate therapy, and a possible rheumatologic disorder with Raynaud's phenomenon. With regards to her Raynaud's phenomenon, she does not describe white clearly demarcated changes in the toes as I might expect. Given the inconclusive rheumatologic serological testing, and remaining uncertainty regarding her rheumatologic diagnosis it may be helpful to obtain a second opinion from Rheumatology. Plan 1. I do not recommend initiation of disease modifying therapy for MS. 2. Consult with [facility] Rheumatology requested. This would be facilitated by her PCP providing results of prior rheumatologic serological testing and Rheumatology evaluautions. 3. Use Ampyra with caution given her diabetic chronic kidney disease. This puts her at an increased risk for seizures. It is also not clear this medication is offering a clear benefit. 4. RTC as needed. Chronic pain syndrome 04/29/2017 Assessment & Plan (03/21/2025 10:17 AM EDT): On MSIR 15mg q8H PRN at home. - Cont reduced dose PO morphine 5mg TID PRN moderate pain for now iso # delirium + IV dilaudid 0.2-0.5mg q3H PRN severe pain Assessment & Plan (03/20/2025 2:00 PM EDT): On MSIR 15mg q8H PRN at home. - Cont reduced dose MSIR 5mg TID PRN for now iso # delirium Assessment & Plan (03/14/2025 6:54 PM EDT): -Continue morphine Assessment & Plan (03/13/2025 3:14 PM EDT): -Continue morphine Assessment & Plan (03/12/2025 4:32 PM EDT): -Continue morphine Assessment & Plan (03/11/2025 2:39 PM EDT): -Continue morphine Assessment & Plan (03/10/2025 8:22 PM EDT): -Continue morphine Assessment & Plan (03/07/2025 11:44 PM EDT): PDMP confirmed. Continue morphine sulfate 15 mg 3 times daily. Assessment & Plan (07/28/2024 4:15 PM EST): Continue morphine - 2/14 chest pain, seems noncardiac, improved - PE unlikely not hypoxic -using prn oral morphine 1-2 times daily Assessment & Plan (07/27/2024 1:50 PM EST): Continue morphine - 2/14 chest pain, seems noncardiac, improved - PE unlikely not hypoxic -using prn oral morphine 1-2 times daily Assessment & Plan (07/26/2024 12:30 PM EST): Continue morphine - 2/14 chest pain, seems noncardiac, improved - PE unlikely not hypoxic -using prn oral morphine 1-2 times daily Assessment & Plan (07/25/2024 11:56 AM EST): Continue morphine - 2/14 chest pain, seems noncardiac, improved - PE unlikely not hypoxic - IV morphine added while assessing - this has been improved and she hasn't needed any further IV morphine, she generally tries to avoid medications Assessment & Plan (07/24/2024 9:58 AM EST): Continue morphine - 2/14 chest pain, seems noncardiac, improved - PE unlikely not hypoxic - IV morphine added while assessing Assessment & Plan (07/23/2024 4:46 PM EST): Continue morphine - 2/14 chest pain, seems noncardiac based on troponins EKG, do not suspect pulmonary embolism - there is chest pain to palpation on exam, GI etiology also considered - IV morphine added while assessing Assessment & Plan (07/22/2024 2:44 PM EST): Continue morphine Assessment & Plan (02/26/2024 4:49 PM EDT): Gentle, regular exercise routine. Continue regular meditation and stress management strategies as educated by cognitive behavioral therapy. Continue regular personal psychotherapy with positive imagery, DNRS etc. Use topical creams versus patches as needed. Take anti- anxiety medications as instructed Assessment & Plan (05/21/2023 2:47 PM EST): Gentle, regular exercise routine. Continue regular meditation and stress management strategies as educated by cognitive behavioral therapy. Continue regular personal psychotherapy with positive imagery, DNRS etc. Use topical creams versus patches as needed. Take anti- anxiety medications as instructed Assessment & Plan (11/20/2022 3:13 PM EDT): Gentle, regular exercise routine. Continue regular meditation and stress management strategies as educated by cognitive behavioral therapy. Continue regular personal psychotherapy with positive imagery, DNRS etc. Use topical creams versus patches as needed. Take anti- anxiety medications as instructed Assessment & Plan (09/28/2021 12:30 PM EDT): Gentle, regular exercise routine. Continue regular meditation and stress management strategies as educated by cognitive behavioral therapy. Continue regular personal psychotherapy with positive imagery, DNRS etc. Use topical creams versus patches as needed. Take anti- anxiety medications as instructed Assessment & Plan (12/13/2020 11:38 AM EDT): Gentle, regular exercise routine. Continue regular meditation and stress management strategies as educated by cognitive behavioral therapy. Continue regular personal psychotherapy with positive imagery, DNRS etc. Use topical creams versus patches as needed. Take anti- anxiety medications as instructed Assessment & Plan (09/11/2020 11:49 AM EDT): Gentle, regular exercise routine. Continue regular meditation and stress management strategies as educated by cognitive behavioral therapy. Continue regular personal psychotherapy with positive imagery, DNRS etc. Use topical creams versus patches as needed. Take anti- anxiety medications as instructed Assessment & Plan (03/27/2020 3:40 PM EDT): . Assessment & Plan (03/24/2020 1:21 PM EDT): Gentle, regular exercise routine. Continue regular meditation and stress management strategies as educated by cognitive behavioral therapy. Continue regular personal psychotherapy with positive imagery, DNRS etc. Use topical creams versus patches as needed. Take anti- anxiety medications as instructed Assessment & Plan (11/20/2019 5:17 PM EDT): Gentle, regular exercise routine. Continue regular meditation and stress management strategies as educated by cognitive behavioral therapy. Continue regular personal psychotherapy with positive imagery, DNRS etc. Use topical creams versus patches as needed. Take anti- anxiety medications as instructed Assessment & Plan (07/02/2019 9:30 AM EST): Gentle, regular exercise routine. Continue regular meditation and stress management strategies as educated by cognitive behavioral therapy. Continue regular personal psychotherapy with positive imagery, DNRS etc. Use topical creams versus patches as needed. Take anti- anxiety medications as instructed Assessment & Plan (06/13/2019 2:17 AM EST): We have continued the patient's usual medications for PTSD, chronic pain and anxiety. Her polypharmacy is somewhat alarming but can be dealt with as an outpatient. Assessment & Plan (05/13/2019 5:48 PM EST): Gentle, regular exercise routine. Continue regular meditation and stress management strategies as educated by cognitive behavioral therapy. Continue regular personal psychotherapy with positive imagery, DNRS etc. Use topical creams versus patches as needed. Take anti- anxiety medications as instructed Assessment & Plan (10/17/2018 12:13 PM EDT): Gentle, regular exercise routine. Continue regular meditation and stress management strategies as educated by cognitive behavioral therapy. Continue regular personal psychotherapy with positive imagery, DNRS etc. Use topical creams versus patches as needed. Take anti- anxiety medications as instructed Assessment & Plan (08/06/2018 7:44 PM EST): Continue lidocaine 4% 1 patch Assessment & Plan (07/14/2018 7:55 PM EST): Joint protection, energy conservation. Gentle, regular exercise routine. Continue regular meditation and stress management strategies as educated by cognitive behavioral therapy. Consider regular personal psychotherapy with positive imagery, DNRS etc. Use topical creams versus patches as needed. Take anti- anxiety medications as instructed Assessment & Plan (05/10/2017 7:28 PM EST): Not sure what her pain is from. I do agree with her PCP to refer to a neurologist. Patient is not interested. She thinks everyone will blame her MS. Atherosclerosis of [place] ronary artery of [place] heart without angina pectoris 04/23/2017 Overview (12/07/2019): 12/2012 PCI STEMI LAD EF 40-50% 08/2015 NUKE - EF 55% 12/2015 ECHO EF 60-65%; SL PAS 11/2018 ECHO EF 50-55%; 1+AI; 1+MR; DD1; NL PAS 04/08/2019 NUKE - EF 59% 07/10/2019 ECHO Normal LV size and function EF 55%. Normal diastolic function for age. Normal PA pressure estimation. Trace aortic insufficiency. Mild to moderate tricuspid regurgitation with normal PA pressure estimation. Compared to study from November 2018, no change. Assessment & Plan (03/21/2025 10:17 AM EDT): Hx CAD c/b STEMI in 2012 s/p ERNST to LAD. Stress test 07/2023 normal. Trop elevated to 190s on admission but adynamic, likely demand related iso hypervolemia and RV strain. - Cardiology c/s as above - Holding home ASA iso # coagulopathy and 2 episodes melena in ICU; resuming eliquis 03/21, if no recurrent melena and Hgb stable will consider resuming ASA in coming days - Not on BB (?hx bradycardia) or statin (?intolerance, ?refusal) Assessment & Plan (03/20/2025 2:00 PM EDT): Hx CAD c/b STEMI in 2012 s/p ERNST to LAD. Stress test 07/2023 normal. Trop elevated to 190s on admission but adynamic, likely demand related iso hypervolemia and RV strain. - Holding home ASA iso # coagulopathy and 2 episodes melena in ICU - Not on BB (?hx bradycardia) or statin (?intolerance, ?refusal) Assessment & Plan (03/14/2025 6:54 PM EDT): -History of drug eluting stent. -She is fully anticoagulated on Eliquis and reports not always taking aspirin. -Seen by cardiology. No changes Assessment & Plan (03/13/2025 3:14 PM EDT): -History of drug eluting stent. -She is fully anticoagulated on Eliquis and reports not always taking aspirin. -Seen by cardiology. No changes Assessment & Plan (03/12/2025 4:32 PM EDT): -History of drug eluting stent. -She is fully anticoagulated on Eliquis and reports not always taking aspirin. -Seen by cardiology. No changes Assessment & Plan (03/11/2025 2:39 PM EDT): -History of drug eluting stent. -She is fully anticoagulated on Eliquis and reports not always taking aspirin. -Seen by cardiology. No changes Assessment & Plan (03/10/2025 8:22 PM EDT): -History of ERNST -She is fully anticoagulated on Eliquis and reports not always taking aspirin Assessment & Plan (03/07/2025 11:44 PM EDT): History of CAD status post drug-eluting stents to LAD. No evidence of active chest pain. Recent cardiology visit in January for medical clearance. Recent stress test in 2023 was normal. - Continue aspirin 81 mg, spironolactone 25 mg daily Assessment & Plan (01/26/2025 3:46 PM EDT): She denies having chest pain with any activity. She did have a stress test in 2023 which is essentially normal we will continue to optimize cardiac risk factors though she is possibly taking aspirin 81 mg daily she does not do this. She is on Eliquis 5 mg twice daily for anticoagulation. She has on clonidine 0.2 mg nightly, spironolactone 25 mg daily. Her blood pressure is well-controlled at 124/80. Assessment & Plan (05/24/2024 12:56 PM EST): repeat ETT with nuclear MPI which showed no evidence of infarction or ischemia. Will continue to optimize cardiac risk factors. She is on aspirin 81 mg daily which she remain on lifelong, clonidine 0.1 mg twice daily, lisinopril 5 mg daily, spironolactone 100 mg daily. She will remain on his medication without change. SBP goal less than 130/80. LDL goal less than 70 mg/dL. Assessment & Plan (04/05/2020 12:33 PM EDT): No evidence for ischemic etiology. Overall systolic function low normal. She is aware of my plans to retire and will follow up with a colleague in several months. Assessment & Plan (12/07/2019 9:14 AM EDT): No clinical events. Her various aches and pains do not appear to be cardiac. Assessment & Plan (07/06/2019 9:38 AM EST): Chest pain continues but no evidence of myocardial ischemia. Assessment & Plan (04/20/2019 3:04 PM EST): I have no evidence that her symptoms are cardiac. Assessment & Plan (04/02/2019 9:18 AM EDT): I think it is unlikely that her symptoms represent ischemic disease but I believe it is worthwhile at least putting her through another nuclear stress test to be sure nothing has changed. She is not able to exercise. Assessment & Plan (12/18/2018 9:01 AM EDT): No convincing evidence of angina. Systolic function preserved. Assessment & Plan (10/12/2018 4:34 PM EDT): No symptoms. I will have her echo repeated. Last one was 2-1/2 years ago without evidence of a wall motion abnormality and systolic function was normal. I have ordered the 30-day monitor as well. Assessment & Plan (09/23/2018 4:08 PM EDT): Present chest discomfort is noncardiac. Assessment & Plan (08/21/2018 12:21 PM EDT): 1 of the few symptoms she has not had is significant anginal like chest discomfort. She has remained on a cardiac medications. Her LDL has come down to 99 without specific therapy but likely relates to her poor intake. Assessment & Plan (07/13/2018 3:13 PM EST): No cardiac issues. Her ECG today is a normal tracing at a rate of 85. No evidence for ischemia or her previous infarct. Examination of her chest reveals some extremely tender spots and I wonder about a rib fracture. She is refusing to have x-rays done but I told her if the pain does not get better over the next several days to call and I will order rib films. Assessment & Plan (04/17/2018 9:45 AM EST): No convincing symptoms of angina. No changes for now but I will have her come back in 3 or 4 months. Assessment & Plan (12/15/2017 4:34 PM EDT): At least from a cardiac perspective she continues to do well. Her chest discomforts come and go and are unlikely related to ischemic disease although every year or so we do put her through some functional testing. Assessment & Plan (10/18/2017 5:28 PM EDT): No signs of any acute issues presently. This diagnosis accurate. She is not on no medications treat this issue Assessment & Plan (04/24/2017 11:06 AM EST): No clinical evidence of recurrence. She has atypical chest discomfort on and off which is noncardiac. She is known to have normal systolic function. Last nuclear stress test was benign and was performed I believe in 2014. Peripheral neuropathy 11/10/2013 Overview (07/26/2022): Peripheral Neuropathy Peripheral Neuropathy History of myocardial infarction 10/14/2013 Overview (07/26/2022): Prior Myocardial Infarction Resolved Problems Problem Noted Date Diagnosed Date Resolved Date Urinary tract infection 04/05/2025 11/0 07/2024 Assessment & Plan (04/09/2025 11:38 AM EDT): #UTI Pt reported burning with urination UA sent 04/03 with >100 WBC. Pt started on IV CTX 1g (04/04, 04/05) Urine culture resulted showed <100,000 colony forming units if mixed organisms. - Discontinued CTX 04/05, will monitor urinary symptoms off antibiotics. Assessment & Plan (04/08/2025 1:48 PM EDT): #UTI Pt reported burning with urination UA sent 04/03 with >100 WBC. Pt started on IV CTX 1g (04/04, 04/05) Urine culture resulted showed <100,000 colony forming units if mixed organisms. - Discontinued CTX 04/05, will monitor urinary symptoms off antibiotics. Assessment & Plan (04/07/2025 4:02 PM EDT): #UTI Pt reported burning with urination UA sent 04/03 with >100 WBC. Pt started on IV CTX 1g (04/04, 04/05) Urine culture resulted showed <100,000 colony forming units if mixed organisms. - Discontinued CTX 04/05, will monitor urinary symptoms off antibiotics. Assessment & Plan (04/06/2025 2:39 PM EDT): #UTI Pt reported burning with urination UA sent 04/03 with >100 WBC. Pt started on IV CTX 1g (04/04, 04/05) Urine culture resulted showed <100,000 colony forming units if mixed organisms. - Discontinued CTX 04/05, will monitor urinary symptoms off antibiotics. Assessment & Plan (04/05/2025 1:43 PM EDT): Pt reported burning with urination UA sent 04/03 with >100 WBC. Pt started on IV CTX 1g (04/04, 04/05) Urine culture resulted showed <100,000 colony forming units if mixed organisms. - Discontinued CTX 04/05, will monitor urinary symptoms off antibiotics. Stage 3a chronic kidney disease 05/26/2023 02/26/2024 Assessment & Plan (05/26/2023 11:29 PM EST): Renal function stable. detention current use of systemic steroids 05/21/2023 02/26/2024 Assessment & Plan (05/24/2023 5:10 PM EST): Gently taper as tolerated. Daily calcium and vitamin D supplementation. Regular weightbearing exercises. Fall prevention strategies. Monitor for multiple side effects including but not limited to increased risk of hips, knees, jaw osteonecrosis, mood swings, increased intraocular and systemic pressure, diabetes, osteoporosis, fluid retention, increased appetite, risk of infection, bruising, hair thinning etc. At risk for polypharmacy 03/20/2021 Assessment & Plan (03/25/2021 5:47 PM EDT): She is tolerating her chronic home medications point. Assessment & Plan (03/20/2021 12:17 AM EDT): Patient appears to be at significant risk for polypharmacy with multiple high risk substances, which could be contributing to her falls. Consider [facility] consult as an outpatient to help address this impending issue. Positive GILBERTO (antinuclear antibody) 05/13/2019 05/21/2023 Acute metabolic encephalopathy 08/06/2018 08/08/2018 Assessment & Plan (08/07/2018 7:45 PM EST): Patient presentation of lethargy and comorbidities concerning for metabolic encephalopathy. There was a concern for overdose due to pinpoint pupils and lethargy with a positive toxicology for amphetamines and opiates. While in the emergency department she received 0.2 mg of Narcan which immediately the patient became responsive. However upon arrival on the floor she again became less responsive and another 0.2 mg of Narcan was given with good effect. Contrast CT of brain revealed no hematoma or ischemia. Fever on admission, up to 38.9 Celsius overnight. Chest x- ray no acute disease. Urinalysis no leukocyte esterase or nitrite. CT abdomen and pelvis without contrast no acute pathology. TSH nl. 08/07 had a long discussion with the son who was quite defensive when I asked questions about patient's use of narcotics and benzodiazepines. acute metabolic encephalopathy appears to be a combination of infection (fevers all night) and medication. Urine drug screen positive for amphetamines, benzodiazepines, opiates. Patient is on all 3. Patient states she takes her Dilaudid 4 mg 4 times a day and did not increase, in fact decrease the dose on the day of admission. Infection pointing more viral at this time. no antibiotics for now. - Blood cultures pending Colitis 08/06/2018 04/12/2025 Assessment & Plan (04/11/2025 6:03 PM EST): # Abdominal pain (resolved) # Leukocytosis # Lactic acidosis (resolved) CTAP on admission showed circumferential ascending colonic wall thickening c/f colitis with possible right sided colonic pneumatosis accompanied by rising leukocytosis, inflammatory markers, and lactate. Infectious studies (Cdiff, bacterial pcr) were negative, felt most likely to be due to ischemia in the setting of venous congestion as elsewhere. Evaluated by surgery who advised non operative management given medical complexity, significant surgical history, and likely need for end-ileostomy. She was treated briefly with vanc/meropenem/flagyl (03/21-03/24) which was narrowed to meropenem monotherapy (03/24-03/26) in addition to diuresis. Complicated by continued rising lactic acid despite interval improvement in colitis on CT, negative UA, negative blood cultures and no other signs/symptoms of infection. Ultimately felt to be due to delayed clearance in the setting of hepatic dysfunction. Reassuringly has remained asymptomatic, hemodynamically stable. - If clinical change, recheck lactate (new fever, abdominal pain, HD instability) and notify [facility] team Assessment & Plan (04/10/2025 4:46 PM EST): # Abdominal pain (resolved) # Leukocytosis # Lactic acidosis (resolved) CTAP on admission showed circumferential ascending colonic wall thickening c/f colitis with possible right sided colonic pneumatosis accompanied by rising leukocytosis, inflammatory markers, and lactate. Infectious studies (Cdiff, bacterial pcr) were negative, felt most likely to be due to ischemia in the setting of venous congestion as elsewhere. Evaluated by surgery who advised non operative management given medical complexity, significant surgical history, and likely need for end-ileostomy. She was treated briefly with vanc/meropenem/flagyl (03/21-03/24) which was narrowed to meropenem monotherapy (03/24-03/26) in addition to diuresis. Complicated by continued rising lactic acid despite interval improvement in colitis on CT, negative UA, negative blood cultures and no other signs/symptoms of infection. Ultimately felt to be due to delayed clearance in the setting of hepatic dysfunction. Reassuringly has remained asymptomatic, hemodynamically stable. - If clinical change, recheck lactate (new fever, abdominal pain, HD instability) and notify [facility] team Assessment & Plan (04/09/2025 11:38 AM EDT): #Abdominal pain (resolved) #Leukocytosis (resolved) #Lactic acidosis (resolved) CTAP on admission showed circumferential ascending colonic wall thickening c/f colitis with possible right sided colonic pneumatosis accompanied by rising leukocytosis, inflammatory markers, and lactate. Infectious studies (Cdiff, bacterial pcr) were negative, felt most likely to be due to ischemia in the setting of venous congestion as elsewhere. Evaluated by surgery who advised non operative management given medical complexity, significant surgical history, and likely need for end-ileostomy. She was treated briefly with vanc/meropenem/flagyl (03/21-03/24) which was narrowed to meropenem monotherapy (03/24-03/26) in addition to diuresis. Complicated by continued rising lactic acid despite interval improvement in colitis on CT, negative UA, negative blood cultures and no other signs/symptoms of infection. Ultimately felt to be due to delayed clearance in the setting of hepatic dysfunction. Reassuringly has remained asymptomatic, hemodynamically stable, and without leukocytosis - Trend leukocytosis - If clinical change, recheck lactate (new fever, abdominal pain, HD instability) and notify [facility] team Assessment & Plan (04/08/2025 1:48 PM EDT): #Abdominal pain (resolved) #Leukocytosis (resolved) #Lactic acidosis (resolved) CTAP on admission showed circumferential ascending colonic wall thickening c/f colitis with possible right sided colonic pneumatosis accompanied by rising leukocytosis, inflammatory markers, and lactate. Infectious studies (Cdiff, bacterial pcr) were negative, felt most likely to be due to ischemia in the setting of venous congestion as elsewhere. Evaluated by surgery who advised non operative management given medical complexity, significant surgical history, and likely need for end-ileostomy. She was treated briefly with vanc/meropenem/flagyl (03/21-03/24) which was narrowed to meropenem monotherapy (03/24-03/26) in addition to diuresis. Complicated by continued rising lactic acid despite interval improvement in colitis on CT, negative UA, negative blood cultures and no other signs/symptoms of infection. Ultimately felt to be due to delayed clearance in the setting of hepatic dysfunction. Reassuringly has remained asymptomatic, hemodynamically stable, and without leukocytosis - Trend leukocytosis - If clinical change, recheck lactate (new fever, abdominal pain, HD instability) and notify [facility] team Assessment & Plan (04/07/2025 11:36 AM EDT): #Abdominal pain (resolved) #Leukocytosis (resolved) #Lactic acidosis (resolved) CTAP on admission showed circumferential ascending colonic wall thickening c/f colitis, along with mild leukocytosis. Had no other clinical signs/symptoms of colitis at that time. On 03/21, developed worsening abdominal pain and leukocytosis up to the 20s, elevated CRP, and lactate rising to 3.1. Repeat CTAP showed worsening colitis, with possible right-sided colonic pneumatosis. Encinal most likely to be ischemic from venous congestion in the setting of volume overload. Unlikely infectious given CDiff and stool PCR were negative. Surgery evaluated and given her medical complexity and significant surgical history, advised non-operative management as surgery would likely result in need for end ileostomy. She was made NPO, started on empiric vanc/meropenem/flagyl (03/21), and diuresed with IV lasix. Despite this, developed worsening lactic acidosis up to 7 (03/22-03/23), with new blood clots in the stool. CTAP 03/23 showed improvement in the colitis. Repeat UA was negative, and had no respiratory symptoms to suggest pneumonia. Lactate ultimately felt to be elevated possibly from delayed clearance in the setting of hepatic dysfunction. Most recent c.diff negative 03/27 (repeated for diarrhea.) Abx narrowed to meropenem alone and discontinued given benign abdominal exam, improvement in leukocytosis, afebrile, and stable lactates. Blood cultures with no growth. Has remained asymptomatic - Trend leukocytosis - S/p vanc/flagyl (03/21-03/24), meropenem (03/21 - 03/26) - Surgery signed off --- If clinical change, recheck lactate (new fever, abdominal pain, HD instability) and notify [facility] team Assessment & Plan (04/06/2025 2:39 PM EDT): #Abdominal pain (resolved) #Leukocytosis (resolved) #Lactic acidosis (resolved) CTAP on admission showed circumferential ascending colonic wall thickening c/f colitis, along with mild leukocytosis. Had no other clinical signs/symptoms of colitis at that time. On 03/21, developed worsening abdominal pain and leukocytosis up to the 20s, elevated CRP, and lactate rising to 3.1. Repeat CTAP showed worsening colitis, with possible right-sided colonic pneumatosis. Encinal most likely to be ischemic from venous congestion in the setting of volume overload. Unlikely infectious given CDiff and stool PCR were negative. Surgery evaluated and given her medical complexity and significant surgical history, advised non-operative management as surgery would likely result in need for end ileostomy. She was made NPO, started on empiric vanc/meropenem/flagyl (03/21), and diuresed with IV lasix. Despite this, developed worsening lactic acidosis up to 7 (03/22-03/23), with new blood clots in the stool. CTAP 03/23 showed improvement in the colitis. Repeat UA was negative, and had no respiratory symptoms to suggest pneumonia. Lactate ultimately felt to be elevated possibly from delayed clearance in the setting of hepatic dysfunction. Most recent c.diff negative 03/27 (repeated for diarrhea.) Abx narrowed to meropenem alone and discontinued given benign abdominal exam, improvement in leukocytosis, afebrile, and stable lactates. Blood cultures with no growth. - Trend leukocytosis - S/p vanc/flagyl (03/21-03/24), meropenem (03/21 - 03/26) - Surgery signed off --- If clinical change, recheck lactate (new fever, abdominal pain, HD instability) and notify [facility] Assessment & Plan (04/05/2025 8:06 AM EDT): #Abdominal pain (resolved) #Leukocytosis #Lactic acidosis (resolved) CTAP on admission showed circumferential ascending colonic wall thickening c/f colitis, along with mild leukocytosis. Had no other clinical signs/symptoms of colitis at that time. On 03/21, developed worsening abdominal pain and leukocytosis up to the 20s, elevated CRP, and lactate rising to 3.1. Repeat CTAP showed worsening colitis, with possible right-sided colonic pneumatosis. Encinal most likely to be ischemic from venous congestion in the setting of volume overload. Unlikely infectious given CDiff and stool PCR were negative. Surgery evaluated and given her medical complexity and significant surgical history, advised non-operative management as surgery would likely result in need for end ileostomy. She was made NPO, started on empiric vanc/meropenem/flagyl (03/21), and diuresed with IV lasix. Despite this, developed worsening lactic acidosis up to 7 (03/22-03/23), with new blood clots in the stool. CTAP 03/23 showed improvement in the colitis. Repeat UA was negative, and had no respiratory symptoms to suggest pneumonia. Lactate ultimately felt to be elevated possibly from delayed clearance in the setting of hepatic dysfunction. Most recent c.diff negative 03/27 (repeated for diarrhea.) Abx narrowed to meropenem alone and discontinued given benign abdominal exam, improvement in leukocytosis, afebrile, and stable lactates. Blood cultures with no growth. - Trend leukocytosis, improved at 6.3 - S/p vanc/flagyl (03/21-03/24), meropenem (03/21 - 03/26) - Dysphagia soft & bite-sized solids + thin liquids with aspiration precautions - Surgery signed off --- If clinical change, recheck lactate (new fever, abdominal pain, HD instability) and notify [facility] Assessment & Plan (04/04/2025 4:38 PM EDT): #Abdominal pain (resolved) #Leukocytosis #Lactic acidosis (resolved) CTAP on admission showed circumferential ascending colonic wall thickening c/f colitis, along with mild leukocytosis. Had no other clinical signs/symptoms of colitis at that time. On 03/21, developed worsening abdominal pain and leukocytosis up to the 20s, elevated CRP, and lactate rising to 3.1. Repeat CTAP showed worsening colitis, with possible right-sided colonic pneumatosis. Encinal most likely to be ischemic from venous congestion in the setting of volume overload. Unlikely infectious given CDiff and stool PCR were negative. Surgery evaluated and given her medical complexity and significant surgical history, advised non-operative management as surgery would likely result in need for end ileostomy. She was made NPO, started on empiric vanc/meropenem/flagyl (03/21), and diuresed with IV lasix. Despite this, developed worsening lactic acidosis up to 7 (03/22-03/23), with new blood clots in the stool. CTAP 03/23 showed improvement in the colitis. Repeat UA was negative, and had no respiratory symptoms to suggest pneumonia. Lactate ultimately felt to be elevated possibly from delayed clearance in the setting of hepatic dysfunction. Most recent c.diff negative 03/27 (repeated for diarrhea.) Abx narrowed to meropenem alone and discontinued given benign abdominal exam, improvement in leukocytosis, afebrile, and stable lactates. Blood cultures with no growth. - Trend leukocytosis, improved at 6.3 - S/p vanc/flagyl (03/21-03/24), meropenem (03/21 - 03/26) - Dysphagia soft & bite-sized solids + thin liquids with aspiration precautions - Surgery signed off --- If clinical change, recheck lactate (new fever, abdominal pain, HD instability) and notify [facility] team Assessment & Plan (04/03/2025 1:14 PM EDT): #Abdominal pain (resolved) #Leukocytosis #Lactic acidosis (resolved) CTAP on admission showed circumferential ascending colonic wall thickening c/f colitis, along with mild leukocytosis. Had no other clinical signs/symptoms of colitis at that time. On 03/21, developed worsening abdominal pain and leukocytosis up to the 20s, elevated CRP, and lactate rising to 3.1. Repeat CTAP showed worsening colitis, with possible right-sided colonic pneumatosis. Encinal most likely to be ischemic from venous congestion in the setting of volume overload. Unlikely infectious given CDiff and stool PCR were negative. Surgery evaluated and given her medical complexity and significant surgical history, advised non-operative management as surgery would likely result in need for end ileostomy. She was made NPO, started on empiric vanc/meropenem/flagyl (03/21), and diuresed with IV lasix. Despite this, developed worsening lactic acidosis up to 7 (03/22-03/23), with new blood clots in the stool. CTAP 03/23 showed improvement in the colitis. Repeat UA was negative, and had no respiratory symptoms to suggest pneumonia. Lactate ultimately felt to be elevated possibly from delayed clearance in the setting of hepatic dysfunction. Most recent c.diff negative 03/27 (repeated for diarrhea.) Abx narrowed to meropenem alone and discontinued given benign abdominal exam, improvement in leukocytosis, afebrile, and stable lactates. Blood cultures with no growth. - Trend leukocytosis, improved at 6.3 - S/p vanc/flagyl (03/21-03/24), meropenem (03/21 - 03/26) - Dysphagia soft & bite-sized solids + thin liquids with aspiration precautions - Surgery signed off --- If clinical change, recheck lactate (new fever, abdominal pain, HD instability) and notify [facility] team Assessment & Plan (04/02/2025 5:28 PM EDT): #Abdominal pain (resolved) #Leukocytosis #Lactic acidosis (resolved) CTAP on admission showed circumferential ascending colonic wall thickening c/f colitis, along with mild leukocytosis. Had no other clinical signs/symptoms of colitis at that time. On 03/21, developed worsening abdominal pain and leukocytosis up to the 20s, elevated CRP, and lactate rising to 3.1. Repeat CTAP showed worsening colitis, with possible right-sided colonic pneumatosis. Encinal most likely to be ischemic from venous congestion in the setting of volume overload. Unlikely infectious given CDiff and stool PCR were negative. Surgery evaluated and given her medical complexity and significant surgical history, advised non-operative management as surgery would likely result in need for end ileostomy. She was made NPO, started on empiric vanc/meropenem/flagyl (03/21), and diuresed with IV lasix. Despite this, developed worsening lactic acidosis up to 7 (03/22-03/23), with new blood clots in the stool. CTAP 03/23 showed improvement in the colitis. Repeat UA was negative, and had no respiratory symptoms to suggest pneumonia. Lactate ultimately felt to be elevated possibly from delayed clearance in the setting of hepatic dysfunction. Most recent c.diff negative 03/27 (repeated for diarrhea.) Abx narrowed to meropenem alone and discontinued given benign abdominal exam, improvement in leukocytosis, afebrile, and stable lactates. Blood cultures with no growth. - Trend leukocytosis, improved at 6.3 - S/p vanc/flagyl (03/21-03/24), meropenem (03/21 - 03/26) - Dysphagia soft & bite-sized solids + thin liquids with aspiration precautions - Surgery signed off --- If clinical change, recheck lactate (new fever, abdominal pain, HD instability) and notify [facility] team Assessment & Plan (04/01/2025 7:39 AM EDT): #Abdominal pain (resolved) #Leukocytosis #Lactic acidosis (resolved) CTAP on admission showed circumferential ascending colonic wall thickening c/f colitis, along with mild leukocytosis. Had no other clinical signs/symptoms of colitis at that time. On 03/21, developed worsening abdominal pain and leukocytosis up to the 20s, elevated CRP, and lactate rising to 3.1. Repeat CTAP showed worsening colitis, with possible right-sided colonic pneumatosis. Encinal most likely to be ischemic from venous congestion in the setting of volume overload. Unlikely infectious given CDiff and stool PCR were negative. Surgery evaluated and given her medical complexity and significant surgical history, advised non-operative management as surgery would likely result in need for end ileostomy. She was made NPO, started on empiric vanc/meropenem/flagyl (03/21), and diuresed with IV lasix. Despite this, developed worsening lactic acidosis up to 7 (03/22-03/23), with new blood clots in the stool. CTAP 03/23 showed improvement in the colitis. Repeat UA was negative, and had no respiratory symptoms to suggest pneumonia. Lactate ultimately felt to be elevated possibly from delayed clearance in the setting of hepatic dysfunction. Most recent c.diff negative 03/27 (repeated for diarrhea.) Abx narrowed to meropenem alone and discontinued given benign abdominal exam, improvement in leukocytosis, afebrile, and stable lactates. Blood cultures with no growth. - Trend leukocytosis - S/p vanc/flagyl (03/21-03/24), meropenem (03/21 - 03/26) - Dysphagia soft & bite-sized solids + thin liquids with aspiration precautions - Surgery signed off --- If clinical change, recheck lactate (new fever, abdominal pain, HD instability) and notify [facility] team Assessment & Plan (03/31/2025 4:37 PM EDT): #Abdominal pain (resolved) #Leukocytosis #Lactic acidosis (resolved) CTAP on admission showed circumferential ascending colonic wall thickening c/f colitis, along with mild leukocytosis. Had no other clinical signs/symptoms of colitis at that time. On 03/21, developed worsening abdominal pain and leukocytosis up to the 20s, elevated CRP, and lactate rising to 3.1. Repeat CTAP showed worsening colitis, with possible right-sided colonic pneumatosis. Encinal most likely to be ischemic from venous congestion in the setting of volume overload. Unlikely infectious given CDiff and stool PCR were negative. Surgery evaluated and given her medical complexity and significant surgical history, advised non-operative management as surgery would likely result in need for end ileostomy. She was made NPO, started on empiric vanc/meropenem/flagyl (03/21), and diuresed with IV lasix. Despite this, developed worsening lactic acidosis up to 7 (03/22-03/23), with new blood clots in the stool. CTAP 03/23 showed improvement in the colitis. Repeat UA was negative, and had no respiratory symptoms to suggest pneumonia. Lactate ultimately felt to be elevated possibly from delayed clearance in the setting of hepatic dysfunction. Most recent c.diff negative 03/27 (repeated for diarrhea.) Abx narrowed to meropenem alone and discontinued given benign abdominal exam, improvement in leukocytosis, afebrile, and stable lactates. Blood cultures with no growth. - Trend leukocytosis - S/p vanc/flagyl (03/21-03/24), meropenem (03/21 - 03/26) - Dysphagia soft & bite-sized solids + thin liquids with aspiration precautions - Surgery signed off --- If clinical change, recheck lactate (new fever, abdominal pain, HD instability) and notify [facility] team Assessment & Plan (03/30/2025 7:19 AM EDT): #Abdominal pain (resolved) #Leukocytosis #Lactic acidosis (resolved) CTAP on admission showed circumferential ascending colonic wall thickening c/f colitis, along with mild leukocytosis. Had no other clinical signs/symptoms of colitis at that time. On 03/21, developed worsening abdominal pain and leukocytosis up to the 20s, elevated CRP, and lactate rising to 3.1. Repeat CTAP showed worsening colitis, with possible right-sided colonic pneumatosis. Encinal most likely to be ischemic from venous congestion in the setting of volume overload. Unlikely infectious given CDiff and stool PCR were negative. Surgery evaluated and given her medical complexity and significant surgical history, advised non-operative management as surgery would likely result in need for end ileostomy. She was made NPO, started on empiric vanc/meropenem/flagyl (03/21), and diuresed with IV lasix. Despite this, developed worsening lactic acidosis up to 7 (03/22-03/23), with new blood clots in the stool. CTAP 03/23 showed improvement in the colitis. Repeat UA was negative, and had no respiratory symptoms to suggest pneumonia. Lactate ultimately felt to be elevated possibly from delayed clearance in the setting of hepatic dysfunction. Most recent c.diff negative 03/27 (repeated for diarrhea.) Abx narrowed to meropenem alone and discontinued given benign abdominal exam, improvement in leukocytosis, afebrile, and stable lactates. Blood cultures with no growth. - Trend leukocytosis - S/p vanc/flagyl (03/21-03/24), meropenem (03/21 - 03/26) - Dysphagia soft & bite-sized solids + thin liquids with aspiration precautions - Surgery signed off --- If clinical change, recheck lactate (new fever, abdominal pain, HD instability) and notify [facility] team Assessment & Plan (03/29/2025 5:37 PM EDT): #Abdominal pain (resolved) #Leukocytosis #Lactic acidosis (resolved) CTAP on admission showed circumferential ascending colonic wall thickening c/f colitis, along with mild leukocytosis. Had no other clinical signs/symptoms of colitis at that time. On 03/21, developed worsening abdominal pain and leukocytosis up to the 20s, elevated CRP, and lactate rising to 3.1. Repeat CTAP showed worsening colitis, with possible right-sided colonic pneumatosis. Encinal most likely to be ischemic from venous congestion in the setting of volume overload. Unlikely infectious given CDiff and stool PCR were negative. Surgery evaluated and given her medical complexity and significant surgical history, advised non-operative management as surgery would likely result in need for end ileostomy. She was made NPO, started on empiric vanc/meropenem/flagyl (03/21), and diuresed with IV lasix. Despite this, developed worsening lactic acidosis up to 7 (03/22-03/23), with new blood clots in the stool. CTAP 03/23 showed improvement in the colitis. Repeat UA was negative, and had no respiratory symptoms to suggest pneumonia. Lactate ultimately felt to be elevated possibly from delayed clearance in the setting of hepatic dysfunction. Most recent c.diff negative 03/27 (repeated for diarrhea.) Abx narrowed to meropenem alone and discontinued given benign abdominal exam, improvement in leukocytosis, afebrile, and stable lactates. Blood cultures with no growth. - Trend leukocytosis - S/p vanc/flagyl (03/21-03/24), meropenem (03/21 - 03/26) - Advance diet to dysphagia soft & bite-sized solids + thin liquids with aspiration precautions - Surgery signed off --- If clinical change, recheck lactate (new fever, abdominal pain, HD instability) and notify [facility] team Assessment & Plan (03/28/2025 6:38 PM EDT): #Abdominal pain (resolved) #Leukocytosis #Lactic acidosis (resolved) CTAP on admission showed circumferential ascending colonic wall thickening c/f colitis, along with mild leukocytosis. Had no other clinical signs/symptoms of colitis at that time. On 03/21, developed worsening abdominal pain and leukocytosis up to the 20s, elevated CRP, and lactate rising to 3.1. Repeat CTAP showed worsening colitis, with possible right-sided colonic pneumatosis. Encinal most likely to be ischemic from venous congestion in the setting of volume overload. Unlikely infectious given CDiff and stool PCR were negative. Surgery evaluated and given her medical complexity and significant surgical history, advised non-operative management as surgery would likely result in need for end ileostomy. She was made NPO, started on empiric vanc/meropenem/flagyl (03/21), and diuresed with IV lasix. Despite this, developed worsening lactic acidosis up to 7 (03/22-03/23), with new blood clots in the stool. CTAP 03/23 showed improvement in the colitis. Repeat UA was negative, and had no respiratory symptoms to suggest pneumonia. Lactate ultimately felt to be elevated possibly from delayed clearance in the setting of hepatic dysfunction. Most recent c.diff negative 03/27 (repeated for diarrhea.) Abx narrowed to meropenem alone and discontinued given benign abdominal exam, improvement in leukocytosis, afebrile, and stable lactates. Blood cultures with no growth. - Trend leukocytosis - S/p vanc/flagyl (03/21-03/24), meropenem (03/21 - 03/26) - Continue liquid diet for bowel rest in setting of colitis. As able, resume dysphagia soft & bite-sized solids + thin liquids with aspiration precautions; anticipate advancing 03/29 if abdominal exam remains benign - Surgery signed off --- If clinical change, recheck lactate (new fever, abdominal pain, HD instability) and notify [facility] team Assessment & Plan (03/27/2025 6:39 PM EDT): #Abdominal pain #Leukocytosis #Lactic acidosis CTAP on admission showed circumferential ascending colonic wall thickening c/f colitis, along with mild leukocytosis. Had no other clinical signs/symptoms of colitis at that time. On 03/21, developed worsening abdominal pain and leukocytosis up to the 20s, elevated CRP, and lactate rising to 3.1. Repeat CTAP showed worsening colitis, with possible right-sided colonic pneumatosis. Encinal most likely to be ischemic from venous congestion in the setting of volume overload. Unlikely infectious given CDiff and stool PCR were negative. Surgery evaluated and given her medical complexity and significant surgical history, advised non-operative management as surgery would likely result in need for end ileostomy. She was made NPO, started on empiric vanc/meropenem/flagyl (03/21), and diuresed with IV lasix. Despite this, developed worsening lactic acidosis up to 7 (03/22-03/23), with new blood clots in the stool. CTAP 03/23 showed improvement in the colitis, and blood cultures have remained NGTD. Repeat UA was negative, and had no respiratory symptoms to suggest pneumonia. Lactate ultimately felt to be elevated possibly from delayed clearance in the setting of hepatic dysfunction. Abx narrowed to meropenem alone. Abdomen was benign on exam and lactate continued to downtrend, so tobi was discontinued. Dx - Trend leukocytosis - Trend lactate daily unless clinical change (new fever, abdominal pain, HD instability) - F/u blood cultures: - 03/18: NGTD - 03/22: NGTD - 03/23: NGTD - Repeat C.diff negative 03/27 Tx - S/p vanc/flagyl (03/21-03/24), meropenem (03/21 - 03/26) - Surgery signed off - Continue full liquid 03/25 - Apixaban held - Holding heparin gtt due to new SDH - In the event patient becomes unstable, notify [facility] team Assessment & Plan (03/26/2025 6:37 PM EDT): #Abdominal pain #Leukocytosis #Lactic acidosis CTAP on admission showed circumferential ascending colonic wall thickening c/f colitis, along with mild leukocytosis. Had no other clinical signs/symptoms of colitis at that time. On 03/21, developed worsening abdominal pain and leukocytosis up to the 20s, elevated CRP, and lactate rising to 3.1. Repeat CTAP showed worsening colitis, with possible right-sided colonic pneumatosis. Encinal most likely to be ischemic from venous congestion in the setting of volume overload. Unlikely infectious given CDiff and stool PCR were negative. Surgery evaluated and given her medical complexity and significant surgical history, advised non-operative management as surgery would likely result in need for end ileostomy. She was made NPO, started on empiric vanc/meropenem/flagyl (03/21), and diuresed with IV lasix. Despite this, developed worsening lactic acidosis up to 7 (03/22-03/23), with new blood clots in the stool. CTAP 03/23 showed improvement in the colitis, and blood cultures have remained NGTD. Repeat UA was negative, and had no respiratory symptoms to suggest pneumonia. Lactate ultimately felt to be elevated possibly from delayed clearance in the setting of hepatic dysfunction. Abx narrowed to meropenem alone. Abdomen was benign on exam and lactate continued to downtrend, so tobi was discontinued. Dx - Trend leukocytosis - Trend lactate daily unless clinical change (new fever, abdominal pain, HD instability) - Discontinued meropenem - F/u blood cultures: - 03/18: NGTD - 03/22: NGTD - 03/23: NGTD Tx - S/p vanc/flagyl (03/21-03/24), meropenem (03/21 - 03/26) - Surgery signed off - Continue full liquid 03/25 - Apixaban held - Holding heparin gtt due to new blood clots - In the event patient becomes unstable, notify [facility] team Assessment & Plan (03/25/2025 12:00 PM EDT): #abdominal pain #leukocytosis #lactic acidosis CTAP on admission showed circumferential ascending colonic wall thickening c/f colitis, along with mild leukocytosis. Had no other clinical signs/symptoms of colitis at that time. On 03/21, developed worsening abdominal pain and leukocytosis up to the 20s, elevated CRP, and lactate rising to 3.1. Repeat CTAP showed worsening colitis, with possible right-sided colonic pneumatosis. Encinal most likely to be ischemic from venous congestion in the setting of volume overload. Unlikely infectious given CDiff and stool PCR were negative. Surgery evaluated and given her medical complexity and significant surgical history, advised non-operative management as surgery would likely result in need for end ileostomy. She was made NPO, started on empiric vanc/meropenem/flagyl (D1 03/21), and diuresed with IV lasix. Despite this, developed worsening lactic acidosis up to 7 03/22-03/23, with new blood clots in the stool. CTAP 03/23 showed improvement in the colitis, and blood cultures have remained NGTD. Repeat UA was negative, and had no respiratory symptoms to suggest pneumonia. Lactate ultimately felt to be elevated possibly from delayed clearance in the setting of hepatic dysfunction. Now narrowed to meropenem alone. Lactate continues to improve and abdominal exam is benign. Advancing diet as tolerated. Dx - Trend leukocytosis - Trend lactate daily unless clinical change (new fever, abdominal pain, HD instability) - ID consulted for antibiotic management given multiple drug allergies -- Extensive antibiotic allergies (PCN, cephalosporins (but keflex apparently OK), amoxicillin, bactrim, LVQ, cipro, doxycycline, clarithromycin). Defer test dose of cefepime given medical complexities/severe illness. - F/u blood cultures: --- 03/18: NGTD --- 03/22: NGTD --- 03/23: NGTD Tx - S/p vanc/flagyl (03/21-03/24), continue meropenem (03/21 - ___) for now - Surgery signed off - Advance diet to full liquid 03/25 -- Apixaban on hold, heparin gtt for anticoagulation (#PE) while she is in this acute window - Holding heparin gtt due to new blood clots -- In the event patient becomes unstable, notify [facility] team Assessment & Plan (03/24/2025 4:37 PM EDT): #abdominal pain #leukocytosis #lactic acidosis CTAP on admission showed circumferential ascending colonic wall thickening c/f colitis, along with mild leukocytosis. Had no other clinical signs/symptoms of colitis at that time. On 03/21, developed worsening abdominal pain and leukocytosis up to 20, and lactate rising to 3.1. ESR normal, CRP elevated (129). Repeat CTAP showed worsening colitis, with possible right-sided colonic pneumatosis. Greatest concern is for ischemic (venous congestion in the setting of volume overload) rather than infectious given CDiff and stool PCR negative. Surgery evaluated and given her medical complexity and significant surgical history, advised non-operative management as surgery would likely result in need for end ileostomy. She was started on empiric vanc/meropenem/flagyl (D1 03/21), then narrowed to meropenem alone. Continuing with active diuresis to optimize volume status. 03/22-03/23 developed worsening lactic acidosis up to 7, with new blood clots in the stool. BP stable, and her abdominal exam remains largely reassuring. Greatest concern for source of lactic acidosis is worsening colitis, though CTAP 03/23 showed improvement. Considered infectious sources, though repeat UA negative, and no respiratory symptoms to suggest pneumonia. Blood cultures NGTD making gut translocation less likely. Lactate elevated possibly due to delayed clearance in the setting of hepatic dysfunction. VBG reassuringly shows she is compensated. She was empirically broadened back to vanc/tobi/flagyl into 03/24, now with improving lactate. Dx - Trend leukocytosis - BID CBC - Trend lactate, next 03/24 unless clinical changes - Check TTE now volume status is improving - ID consulted for antibiotic management given multiple drug allergies -- Extensive antibiotic allergies (PCN, cephalosporins (but keflex apparently OK), amoxicillin, bactrim, LVQ, cipro, doxycycline, clarithromycin). Defer test dose of cefepime given medical complexities/severe illness. - F/u blood cultures: --- 03/18: NGTD --- 03/22: NGTD --- 03/23: NGTD Tx - Stop vanc/flagyl (03/21-03/24), continue empiric meropenem (03/21 - ___) for now - Surgery following, appreciate recs -- OK to advance diet today, start with CLD 03/24 -- Apixaban on hold, heparin gtt for anticoagulation (#PE) while she is in this acute window - Holding heparin gtt due to new blood clots -- In the event patient becomes unstable, notify [facility] team Assessment & Plan (03/23/2025 2:31 PM EDT): #abdominal pain #leukocytosis #lactic acidosis CTAP on admission showed circumferential ascending colonic wall thickening c/f colitis, along with mild leukocytosis. Had no other clinical signs/symptoms of colitis at that time. On 03/21, developed worsening abdominal pain and leukocytosis up to 20, and lactate rising to 3.1. ESR normal, CRP elevated (129). Repeat CTAP showed worsening colitis, with possible right-sided colonic pneumatosis. Greatest concern is for ischemic (venous congestion in the setting of volume overload) rather than infectious given CDiff and stool PCR negative. Surgery evaluated and given her medical complexity and significant surgical history, advised non-operative management as surgery would likely result in need for end ileostomy. She was started on empiric vanc/meropenem/flagyl (D1 03/21), now narrowed to meropenem alone per ID recs. Continuing with active diuresis to optimize volume status. 03/22 overnight developed worsening lactic acidosis again to 4.7 on 03/23 AM, with new blood clots in the stool. BP stable, and her abdominal exam remains largely reassuring. Greatest concern for source of lactic acidosis is worsening colitis, though should also consider infectious sources. Repeat UA negative, and no respiratory symptoms to suggest pneumonia. Blood cultures NGTD making gut translocation less likely. Dx - Trend leukocytosis - BID CBC - Trend lactate, next 6pm 03/23 unless clinical changes - Repeat CTAP with contrast today - ID consulted for antibiotic management given multiple drug allergies -- Extensive antibiotic allergies (PCN, cephalosporins (but keflex apparently OK), amoxicillin, bactrim, LVQ, cipro, doxycycline, clarithromycin). Defer test dose of cefepime given medical complexities/severe illness. - F/u blood cultures: --- 03/18: NGTD --- 03/22: NGTD --- repeat Bcx 03/23 Tx - S/p vanc/flagyl (03/21-03/22), continue empiric meropenem (03/21 - ___) for now - Surgery following, appreciate recs -- NPO for bowel rest -- Apixaban on hold, heparin gtt for anticoagulation (#PE) while she is in this acute window - HOLD heparin gtt due to new blood clots -- In the event patient becomes unstable, tx to ICU for continued medical management and notify [facility] team. Assessment & Plan (03/22/2025 2:00 PM EDT): #abdominal pain #leukocytosis CTAP on admission showed circumferential ascending colonic wall thickening c/f colitis, along with mild leukocytosis. Had no other clinical signs/symptoms of colitis at that time. On 03/21, developed worsening abdominal pain and leukocytosis up to 20, and lactate rising to 3.1. ESR normal, CRP elevated (129). Repeat CTAP showed worsening colitis, with possible right-sided colonic pneumatosis. Greatest concern is for ischemic (venous congestion in the setting of volume overload) vs infectious. Surgery evaluated and given her medical complexity and significant surgical history, advised non-operative management as surgery would likely result in need for end ileostomy. She was started on empiric vanc/meropenem/flagyl (D1 03/21). Now continuing with active diuresis to optimize volume status, while undergoing infectious workup. CDiff negative. Reassuringly remains afebrile, HD stable, with a soft abdomen on exam. - Continue empiric vanc/meropenem/flagyl (D1 03/21) for now - ID consulted for antibiotic management given multiple drug allergies -- Extensive antibiotic allergies (PCN, cephalosporins (but keflex apparently OK), amoxicillin, bactrim, LVQ, cipro, doxycycline, clarithromycin). Defer test dose of cefepime given medical complexities/severe illness -- F/u stool PCR - Surgery following, appreciate recs -- NPO for bowel rest -- Apixaban on hold, heparin gtt for anticoagulation (#PE) while she is in this acute window -- Recheck lactate 03/22, page Surgery if uptrending again -- In the event patient becomes unstable, tx to ICU for continued medical management and notify [facility] team. Assessment & Plan (03/21/2025 10:17 AM EDT): Complaining of diffuse abdominal pain with tenderness and guarding on exam 03/21 iso # leukocytosis. CTAP 03/17 showed circumferential ascending colonic wall thickening c/f colitis however no clinical evidence of this at that time. Has been having frequent loose BMs but is on lactulose. No vomiting, tolerating PO, and no distention on exam, with normoactive BS. Colonoscopy and EGD in 07/2024 largely normal aside from hemorrhoids. Ddx includes infectious colitis/Cdif vs ischemic colitis (holding home AC, but INR>2 iso # coagulopathy until 03/21) vs related to # chronic pain/possible inadequate analgesia (holding home MSIR but giving PRN IV dilaudid and PO morphine at lower dose). LFTs cont to trend down so low suspicion for biliary etiology. Repeat UA 03/20 with no pyuria so low suspicion for UTI. No significant ascites on abdominal imaging or exam so low suspicion for SBP. - Repeat CTAP today 03/21 - Check Cdif, lipase, lactate - Cont PPI, analgesia and diet as elsewhere Assessment & Plan (08/07/2018 7:35 PM EST): Patient presents with lethargy and complains of abdominal pain. Based on questioning of secondary sources, she has been having diarrhea, abdominal pain, and foul smelling breath for the last several days. She has a significant past abdominal surgery history. 08/06 CT abdomen/pelvis no acute pathology. Clear liquid diet Altered mental status 10/18/20172017 Assessment & Plan (10/18/2017 5:20 PM EDT): Patient is somnolent. There is concern raised about medication overuse. 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 04/29/2017 10/18/2017 Assessment & Plan (10/18/2017 5:18 PM EDT): Due to somnolence pain medication held Dyslipidemia 10/14/2013 09/23/2018 Overview (08/04/2017): Overview: Dyslipidemia Assessment & Plan (08/06/2018 8:18 PM EST): No meds Encounters Date Type Department Care Team Description 04/15/2025 Lab Requisition [facility] Main [address] [place] [address] Virginia Gonsales MD Encounter for general adult medical examination without abnormal findings 04/15/2025 Lab Requisition [facility] Lab Main [address] [place] [address] Alia Vail DNP Encounter for general adult medical examination without abnormal findings 04/15/2025 Lab Requisition [facility] Lab Main [address] [place] [address] Alia Vail, ESTRELLITA Encounter for general adult medical examination without abnormal findings 04/10/2025 Orders Only [facility] [address] [place] [address] Ishmael Sanchez MD, MPH 04/05/2025 11:40 AM EDT - 04/05/2025 1:15 PM EDT Surgery [facility] Cardiac Plant [employer] Scientist [address] [facility], Floor 9, [address] [place] [address] Baron Shabazz MD Coronary Arteriogram with Possible Intervention 04/05/2025 Procedure Pass [facility] Cardiac Plant [employer] Scientist [address] [facility], Floor [address], [address] [place] [address] 04/04/2025 Procedure Pass [facility] CT, Josh [address] [facility], 2nd Floor, [address] [place] [address] 04/03/2025 Procedure Pass [facility] CT, Josh [address] [facility], 2nd Floor, [address] [place] [address] 03/31/2025 Procedure Pass [facility] Emergency Imaging, [facility] [address] [facility], Floor [address] [place] [address] 03/26/2025 Procedure Pass [facility] CT, Josh [address] [facility], 2nd Floor, [address] [place] [address] 03/26/2025 Procedure Pass [facility] CT, Josh [address] [facility], 2nd Floor, [address] [place] [address] 03/24/2025 Procedure Pass [facility] Cardiac US [address] [place] [address] 03/23/2025 Procedure Pass [facility] CT, Josh [address] [facility], 2nd Floor, [address] [place] [address] 03/21/2025 Procedure Pass [facility] CT, Josh [address] [facility], 2nd Floor, [address] [place] [address] 03/21/2025 Procedure Pass [facility] CT, Josh [address] [facility], 2nd Floor, [address] [place] [address] 03/18/2025 Orders Only [facility] [address] [place] [address] Homehealth, Harriet Garrido MD 03/17/2025 7:03 PM EDT - 04/15/2025 12:40 PM EST Hospital Encounter [facility] [facility] Perez [address] [place] [address] Patrick Troncoso MD Medoff, MD Anup Chapman, MD Celina Shafer Warren, MD Gwyn, MD Ralph Morataya, Janusz Regalado MD, MPH Sybil, Barry Regalado MD, MPH Ilda, MD Justin Coleman, Adria Caballero MD Discharge Disposition: Rehab Facility 03/17/2025 Procedure Pass [facility] Cardiac US [address] [place] [address] 03/17/2025 Procedure Pass [facility] CT, Josh [address] [facility], 2nd Floor, [address] [place] [address] 03/17/2025 Procedure Pass [facility], Ct Scan - [address] [address] 03/11/2025 Procedure Pass [facility], Mri - [address] [address] 03/10/2025 12:49 PM EDT - 03/17/2025 4:30 PM EDT Hospital Encounter [facility] [address] [place] [address] Tim Grossman MD Israeli, Diana A, Jeniffer Gamble MD Miskovsky, Glenn E, MD Lu, Sarah Hernandez MD, PhD Quiana Hernandez MD Discharge Disposition: Short Term Hospital 03/10/2025 Procedure Pass [facility] Echo Lab [address] [place] [address] 03/10/2025 Home Care Visit [facility] [address] [place] [address] Che Giles RN TELEPHONE ENCOUNTER 03/10/2025 Telephone [facility] Rheumatology [address] [place] [address] Trish Hammonds MD Appointment 03/08/2025 Orders Only [facility] [address] [place] [address] Homehealth, Interface Provider, 03/07/2025 12:33 PM EDT - 03/08/2025 3:17 PM EDT Hospital Encounter [facility] [place] [id number] [address] [place] [address] Omari Peoples MD Wong, MD Marielena Mcneil, Katina Mckeon DO, MPH Discharge Disposition: Home-Health Care Sv 03/03/2025 Telephone [facility] [address] [place] [address] Eloisa Grant orders for labs, XR chest and resp smear to [facility] 02/23/2025 2:00 PM EDT Office Visit [facility] [address] [place] [address] Audra Gutierrez MD Shortness of breath (Primary Dx); Severe persistent asthma, unspecified whether complicated 01/31/2025 Telephone [facility] [address] [place] [address] Farrah Gramajo RN 01/30/2025 10:47 PM EDT - 01/31/2025 7:18 AM EDT Emergency [facility] Emergency [address] [place] [address] Alan Deleon MD Perez, Alberto Juan Ignacio, MD Discharge Disposition: Home or Self Care 01/26/2025 3:30 PM EDT Office Visit [facility] [address] 3[address] Floor, [address] [place] [address] Minda Nelson, ESTRELLITA Atherosclerosis of beaver coronary artery of beaver heart without angina pectoris (Primary Dx); Essential hypertension; Cerebrovascular accident (CVA) due to embolism of left middle cerebral artery from Last 3 Months Immunizations Immunization Administration Dates Next Due COVID-19 (Pre-03/31) Pfizer Vaccine, mRNA, PF 09/16/2020,08/24/2020 Influenza High-Dose Trivalen t Preservative Free IM 07/29/2024(Deferred: Patient Refused) Influenza Quadrivalent Prese rvative Free IM 03/26/2021(Deferred: Patient Refused) Pneumococcal conjugate PCV13 06/30/2014 Pneumococcal polysaccharide PPSV23 10/07/2017, Td (adult),2 Lf Tetanus Toxo id, PF, Adsorbed 10/20/2018 Tdap 12/11/2012 Family History Medical History Relation Comments Cancer Brother 1 carcinoma in sit u of mouth Multiple sclerosis Brother 1 Stroke Brother 1 Multiple sclerosis Brother 2 Heart attack Father Hypertension Father Premature CHD Father first of 5 NH's age 42 Heart attack Maternal Aunt Carotid stenosis Mother Glaucoma Mother Heart attack Mother Hypertension Mother Pacemaker Mother Peripheral Arterial Disease Mother Stroke Mother Heart attack Paternal Aunt Raynaud syndrome Sister 1 Tremor Sister 1 Heart attack Sister 2 Rheumatoid arthritis Sister 2 Alcohol abuse Son Schizoaffective disorder Son Relation Status Comments Brother 1 Brother 2 Alive Father (Age 48) Maternal Aunt Mother (Age 88) Paternal Aunt Sister 1 Alive Sister 2 Son Alive Social History Tobacco Use Types Packs/Day Years Used Date Smoking Tobacco: Former Cigarettes 2 45 1 966 - 2010 Passive Smoke Exposure: Past Smokeless Tobacco: Never Tobacco Cessation:Counseling Given: Not Answered Alcohol Use Standard Drinks/Week Comments No 0 [...] Job Start Date Job End Date Retired [employer]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 Last Filed Vital Signs Vital Sign Reading Time Taken Comments Blood Pressure 109/59 04/15/2025 9:04 AM EST Pulse 90 04/15/2025 9:04 AM EST Temperature 36.7 C (98.1 F) 04/15/2025 8:35 AM EST Respiratory Rate 18 04/15/2025 7:59 AM EST Oxygen Saturation 98% 04/15/2025 7:59 AM EST Inhaled Oxygen Concentration - - Weight 62.3 kg (137 lb 5.6 oz) 04/13/2025 3:14 A M EST Height 157.5 cm (5' 2.01 ) 03/18/2025 3:00 PM E DT Body Mass Index 25.11 03/18/2025 3:00 PM EDT Plan of Treatment Upcoming Encounters Date Type Department Care Team (Late st Contact Info) Description 04/28/2025 2:00 PM EST Office Visit [facility] [address] [place] [address], [address] [place] [phone] Minda Nelson DNP [address] [place] [id number] 07/29/2025 1:00 PM EST Office Visit [facility] [address] [place] [address], [address] [place] [id number] Minda Nelson DNP [address] [place] [address], [address] [address] 08/31/2025 11:50 AM EDT Office Visit [facility] [address] [place] [address] Audra Gutierrez MD [address] [address] Health Maintenance Due Date Last Done Comments HEPATITIS A VACCINES (1 of 2 - Risk 2-dose series) 1977 COLOGUARD 2003 FOBT 2003 SIGMOIDOSCOPY 2003 VIRTUAL COLONOSCOPY 2003 RSV VACCINE (1 - Risk 50-74 years 1-dose series) 01/05/2008 ZOSTER VACCINES (1 of 2) 01/05/2008 DIABETIC EYE EXAM 01/08/2019 01/08/2018 MAMMOGRAM 10/09/2020 10/09/2018 DEPRESSION SCREENING 01/15/2022 01/15/2021, 01/16/20 21 PNEUMOCOCCAL VACCINES (50+ years) (3 of 3 - PCV20 or PCV21) 10/07/2022 10/07/2017, 06/30/2014, 12/11/2012 LUNG CANCER SCREENING (LDCT Only) 09/16/2024 09/17/2023, 11/14/2020, 08/22/2020, Additional history exists INFLUENZA VACCINE (#1) 2025 04/05/2022, 2018 COVID-19 VACCINE ( season) 2025 10/15/2021, 06/22/2021, 09/16/2020, Additional history exists BLOOD PRESSURE 07/29/2025 01/26/2025 HEMOGLOBIN A1C 09/09/2025 03/11/2025, 07/10, 06/06/2023, Additional history exists TSH LEVEL 03/15/2026 03/15/2025, 07/10, 03/05/2024, Additional history exists FIT TEST 03/16/2026 03/16/2025, 07/23/2024 LIPID PANEL 03/30/2026 03/30/2025, 03/09, 05/15/2020, Additional history exists CREATININE LEVEL 04/15/2026 04/15/2025, 11/2024, 04/13/2025, Additional history exists POTASSIUM LEVEL 04/15/2026 04/15/2025, 11/0 11/2024, 04/13/2025, Additional history exists COLONOSCOPY 07/29/2027 07/28/2024, 10/05/2018 COLORECTAL CANCER SCREENING 07/29/2027 Adult Td,Tdap Booster 10/20/2028 10/20/2018, 013 OSTEOPOROSIS SCREENING INITIAL (ONE-TIME) Completed 12/16/2018 HEPATITIS C SCREENING Completed 03/17/2025 , 03/11/2025, 03/11/2025, Additional history exists HIB VACCINES Aged Out No longer eligi ble based on patient's age to complete this topic IPV VACCINES Aged Out No longer eligi ble based on patient's age to complete this topic MENINGOCOCCAL VACCINES (ACWY) Aged Out No longer eligible based on patient's age to complete this topic MENINGOCOCCAL VACCINES (B) Aged Out N o longer eligible based on patient's age to complete this topic Medical Devices Implanted Type Area Fittings Finisher Device Identifier Shelf Expiration Date Model / Serial / Lot Clip Clip Stent Stent Heart Procedures Procedure Name Priority Date/Time Associated Diagnosis Comments POCT GLUCOSE Routine 04/15/2025 12:11 PM EST POCT GLUCOSE Routine 04/15/2025 8:00 AM EST CBC Today 04/15/2025 6:40 AM EST Encounter for general adult medical examination without abnormal findings MAGNESIUM Today 04/15/2025 6:40 AM EST Encounter for general adult medical examination without abnormal findings BASIC METABOLIC PANEL (BMP) Today 12/2024 6:40 AM EST Encounter for general adult medical examination without abnormal findings POCT GLUCOSE Routine 04/14/2025 8:33 PM EST POCT GLUCOSE Routine 04/14/2025 4:09 PM EST POCT GLUCOSE Routine 04/14/2025 11:18 AM EST POCT GLUCOSE Routine 04/14/2025 7:32 AM EST CBC STAT 04/14/2025 5:25 AM EST MAGNESIUM Routine 04/14/2025 5:25 AM EST BASIC METABOLIC PANEL (BMP) Routine 11/2024 5:25 AM EST POCT GLUCOSE Routine 04/13/2025 8:43 PM EST POCT GLUCOSE Routine 04/13/2025 4:41 PM EST POCT GLUCOSE Routine 04/13/2025 12:11 PM EST POCT GLUCOSE Routine 04/13/2025 7:39 AM EST ANTIBODY IDENTIFICATION Today 04/13/20 3:23 AM EST TYPE AND SCREEN (ABO, RH, ANTIBODY SCREEN) Routine 04/13/2025 3:23 AM EST TYPE AND SCREEN (ABO,RH,ANTIBODY SCREEN) Routine 04/13/2025 3:23 AM EST CBC STAT 04/13/2025 3:23 AM EST MAGNESIUM Routine 04/13/2025 3:23 AM EST BASIC METABOLIC PANEL (BMP) Routine 10/2024 3:23 AM EST POCT GLUCOSE Routine 04/12/2025 8:05 PM EST POCT GLUCOSE Routine 04/12/2025 4:36 PM EST POCT GLUCOSE Routine 04/12/2025 11:05 AM EST XR CHEST PORTABLE Routine 04/12/2025 8:17 AM EST POCT GLUCOSE Routine 04/12/2025 7:28 AM EST BLOOD CULTURE, ROUTINE STAT 6:10 AM EST MRSA NASAL SCREEN Routine 04/12/2025 6:10 AM EST BLOOD CULTURE, ROUTINE STAT 6:09 AM EST TROPONIN Routine 04/12/2025 2:08 AM EST LFTS (HEPATIC PANEL) Routine 04/12/2025 2:08 AM EST CBC STAT 04/12/2025 2:08 AM EST MAGNESIUM Routine 04/12/2025 2:08 AM EST BASIC METABOLIC PANEL (BMP) Routine 09/2024 2:08 AM EST COMPREHENSIVE METABOLIC PANE L (CMP) Routine 04/12/2025 12:40 AM EST TROPONIN Routine 04/12/2025 12:38 AM EST POCT GLUCOSE Routine 04/11/2025 8:03 PM EST POCT GLUCOSE Routine 04/11/2025 4:44 PM EST URINE CULTURE Routine 04/11/2025 4:12 PM EST URINE SEDIMENT Today 04/11/2025 12:55 PM EST URINALYSIS WITH REFLEX TO URINE CULTURE Routine 04/11/2025 12:55 PM EST POCT GLUCOSE Routine 04/11/2025 11:41 AM EST POCT GLUCOSE Routine 04/11/2025 7:44 AM EST RED BLOOD CELL (RBC) MORPHOLOGY STAT 04/11/2025 5:45 AM EST DIFFERENTIAL, MANUAL (SYSMEX) STAT 5:45 AM EST CBC AND DIFFERENTIAL STAT 04/11/2025 5:45 AM EST SEDIMENTATION RATE (ESR) Routine 5:45 AM EST C-REACTIVE PROTEIN (CRP) Routine 5:45 AM EST CBC AND DIFFERENTIAL Routine 04/11/2025 5:45 AM EST LFTS (HEPATIC PANEL) STAT 04/11/2025 5:45 AM EST MAGNESIUM Routine 04/11/2025 5:45 AM EST BASIC METABOLIC PANEL (BMP) Routine 08/2024 5:45 AM EST POCT GLUCOSE Routine 04/10/2025 8:10 PM EST CLOSTRIDIOIDES (CLOSTRIDIUM) DIFFICILE, PCR Routine 04/10/2025 5:32 PM EST POCT GLUCOSE Routine 04/10/2025 4:37 PM EST POCT GLUCOSE Routine 04/10/2025 4:09 PM EST POCT GLUCOSE Routine 04/10/2025 11:55 AM EST MAGNESIUM Routine 04/10/2025 11:04 AM EST CBC Routine 04/10/2025 11:04 AM EST BASIC METABOLIC PANEL (BMP) Routine 07/2024 11:04 AM EST TYPE AND SCREEN (CONVERSION) Routine 07/2024 8:45 AM EST POCT GLUCOSE Routine 04/10/2025 7:18 AM EST POCT GLUCOSE Routine 04/09/2025 8:40 PM EDT POCT GLUCOSE Routine 04/09/2025 4:50 PM EDT POCT GLUCOSE Routine 04/09/2025 4:46 PM EDT POCT GLUCOSE Routine 04/09/2025 11:42 AM EDT POCT GLUCOSE Routine 04/09/2025 7:28 AM EDT HC ANTIBODY SCREEN RBC EACH SERUM TECHNIQUE Routine 04/09/2025 5:53 AM EDT CBC Routine 04/09/2025 5:40 AM EDT MAGNESIUM Routine 04/09/2025 5:40 AM EDT BASIC METABOLIC PANEL (BMP) Routine 06/2024 5:40 AM EDT PHOSPHORUS Routine 04/09/2025 5:40 AM EDT POCT GLUCOSE Routine 04/08/2025 8:04 PM EDT POCT GLUCOSE Routine 04/08/2025 4:29 PM EDT POCT GLUCOSE Routine 04/08/2025 11:48 AM EDT POCT GLUCOSE Routine 04/08/2025 7:52 AM EDT CBC Routine 04/08/2025 5:55 AM EDT MAGNESIUM Routine 04/08/2025 5:55 AM EDT BASIC METABOLIC PANEL (BMP) Routine 03/11 5:55 AM EDT PHOSPHORUS Routine 04/08/2025 5:55 AM EDT POCT GLUCOSE Routine 04/07/2025 8:56 PM EDT POCT GLUCOSE Routine 04/07/2025 4:02 PM EDT POCT GLUCOSE Routine 04/07/2025 11:23 AM EDT POCT GLUCOSE Routine 04/07/2025 7:52 AM EDT CBC Routine 04/07/2025 6:25 AM EDT MAGNESIUM Routine 04/07/2025 6:25 AM EDT BASIC METABOLIC PANEL (BMP) Routine 03/11 6:25 AM EDT PT-INR Routine 04/07/2025 6:25 AM EDT PHOSPHORUS Routine 04/07/2025 6:25 AM EDT POCT GLUCOSE Routine 04/06/2025 8:48 PM EDT POCT GLUCOSE Routine 04/06/2025 4:30 PM EDT POCT GLUCOSE Routine 04/06/2025 11:25 AM EDT XR CHEST PORTABLE Routine 04/06/2025 10:43 AM EDT PREPARE RBC Routine 04/06/2025 7:58 AM EDT POCT GLUCOSE Routine 04/06/2025 7:13 AM EDT CBC Routine 04/06/2025 5:50 AM EDT MAGNESIUM Routine 04/06/2025 5:50 AM EDT BASIC METABOLIC PANEL (BMP) Routine 03/10 5:50 AM EDT PT-INR Routine 04/06/2025 5:50 AM EDT PHOSPHORUS Routine 04/06/2025 5:50 AM EDT POCT GLUCOSE Routine 04/05/2025 8:25 PM EDT POCT GLUCOSE Routine 04/05/2025 5:03 PM EDT CBC Routine 04/05/2025 4:20 PM EDT POCT ACTIVATED CLOTTING TIME Routine 1:08 PM EDT RIGHT HEART CATHETERIZATION Routine 03/10 1:07 PM EDT Acute on chronic heart failure, unspecified heart failure type Junctional bradycardia Acute on chronic diastolic (congestive) heart failure CORONARY ARTERIOGRAM WITH POSSIBLE INTERVENTION Routine 04/05/2025 1:07 PM EDT Acute on chronic heart failure, unspecified heart failure type Junctional bradycardia Acute on chronic diastolic (congestive) heart failure POCT GLUCOSE Routine 04/05/2025 11:31 AM EDT PTT STAT 04/05/2025 11:25 AM EDT HC BLOOD TYPING SEROLOGIC ABO Routine 11:24 AM EDT POCT GLUCOSE Routine 04/05/2025 8:45 AM EDT PTT STAT 04/05/2025 6:00 AM EDT CBC Routine 04/05/2025 5:27 AM EDT MAGNESIUM Routine 04/05/2025 5:27 AM EDT BASIC METABOLIC PANEL (BMP) Routine 03/10 5:27 AM EDT PT-INR Routine 04/05/2025 5:27 AM EDT PHOSPHORUS Routine 04/05/2025 5:27 AM EDT PREPARE RBC Routine 04/05/2025 12:38 AM EDT POCT GLUCOSE Routine 04/04/2025 9:[address] HEAD WITHOUT CONTRAST Routine 025 9:26 PM EDT PTT STAT 04/04/2025 5:35 PM EDT POCT GLUCOSE Routine 04/04/2025 4:36 PM EDT PTT STAT 04/04/2025 11:30 AM EDT POCT GLUCOSE Routine 04/04/2025 11:18 AM EDT POCT GLUCOSE Routine 04/04/2025 7:48 AM EDT PTT STAT 04/04/2025 4:02 AM EDT LACTIC ACID (LACTATE) Routine 04/04/2025 4:02 AM EDT CBC Routine 04/04/2025 4:02 AM EDT LFTS (HEPATIC PANEL) Routine 04/04/2025 4:02 AM EDT MAGNESIUM Routine 04/04/2025 4:02 AM EDT BASIC METABOLIC PANEL (BMP) Routine 03/10 4:02 AM EDT PT-INR Routine 04/04/2025 4:02 AM EDT PHOSPHORUS Routine 04/04/2025 4:02 AM EDT HC URNLS DIP STICK/TABLET REAGENT AUTO MICROSCOPY Routine 04/03/2025 11:15 PM EDT URINALYSIS WITH REFLEX TO URINE CULTURE Routine 04/03/2025 11:15 PM EDT URINE CULTURE Routine 04/03/2025 11:15 PM EDT PTT STAT 04/03/2025 9:45 PM EDT TRANSFUSE RED BLOOD CELLS STAT 2024 9:13 PM EDT POCT GLUCOSE Routine 04/03/2025 9:00 PM EDT LACTIC ACID (LACTATE) STAT 04/03/2025 8:23 PM EDT BLOOD CULTURE, ROUTINE Routine 8:[address] HEAD WITHOUT CONTRAST STAT 025 8:04 PM EDT TROPONIN STAT 04/03/2025 7:40 PM EDT VENOUS BLOOD GAS STAT 04/03/2025 7:40 PM EDT XR CHEST PORTABLE Routine 04/03/2025 7:24 PM EDT BLOOD CULTURE, ROUTINE Routine 7:22 PM EDT LFTS (HEPATIC PANEL) STAT 04/03/2025 6:52 PM EDT LACTIC ACID (LACTATE) STAT 04/03/2025 6:52 PM EDT CBC STAT 04/03/2025 6:52 PM EDT MAGNESIUM STAT 04/03/2025 6:52 PM EDT BASIC METABOLIC PANEL (BMP) STAT 03/10 6:52 PM EDT POCT GLUCOSE Routine 04/03/2025 4:33 PM EDT TROPONIN Routine 04/03/2025 2:45 PM EDT ANTI-XA (FOR LOVENOX) Routine 04/03/2025 12:52 PM EDT POCT GLUCOSE Routine 04/03/2025 11:37 AM EDT POCT GLUCOSE Routine 04/03/2025 7:34 AM EDT CBC Routine 04/03/2025 4:29 AM EDT MAGNESIUM Routine 04/03/2025 4:29 AM EDT BASIC METABOLIC PANEL (BMP) Routine 03/10 4:29 AM EDT PT-INR Routine 04/03/2025 4:29 AM EDT PHOSPHORUS Routine 04/03/2025 4:29 AM EDT POCT GLUCOSE Routine 04/02/2025 8:39 PM EDT POCT GLUCOSE Routine 04/02/2025 5:05 PM EDT POCT GLUCOSE Routine 04/02/2025 11:21 AM EDT POCT GLUCOSE Routine 04/02/2025 7:37 AM EDT PT-INR Routine 04/02/2025 6:46 AM EDT CBC Routine 04/02/2025 6:20 AM EDT LFTS (HEPATIC PANEL) Routine 04/02/2025 6:20 AM EDT MAGNESIUM Routine 04/02/2025 6:20 AM EDT BASIC METABOLIC PANEL (BMP) Routine 03/10 6:20 AM EDT PHOSPHORUS Routine 04/02/2025 6:20 AM EDT HC BLOOD TYPING SEROLOGIC ABO Routine 6:19 AM EDT POCT GLUCOSE Routine 04/01/2025 8:12 PM EDT POCT GLUCOSE Routine 04/01/2025 4:52 PM EDT POCT GLUCOSE Routine 04/01/2025 11:20 AM EDT ECG 12-LEAD Routine 04/01/2025 8:24 AM EDT POCT GLUCOSE Routine 04/01/2025 7:48 AM EDT CBC Routine 04/01/2025 4:10 AM EDT MAGNESIUM Routine 04/01/2025 4:10 AM EDT BASIC METABOLIC PANEL (BMP) Routine 03/10 4:10 AM EDT PT-INR Routine 04/01/2025 4:10 AM EDT PHOSPHORUS Routine 04/01/2025 4:10 AM EDT POCT GLUCOSE Routine 03/31/2025 9:07 PM EDT POCT GLUCOSE Routine 03/31/2025 4:28 PM EDT POCT GLUCOSE Routine 03/31/2025 11:56 AM EDT URINE SEDIMENT Routine 03/31/2025 8:45 AM EDT URINALYSIS WITH REFLEX TO URINE CULTURE Routine 03/31/2025 8:45 AM EDT VENOUS BLOOD GAS STAT 03/31/2025 8:09 AM EDT BLOOD CULTURE, ROUTINE Routine 8:06 AM EDT BLOOD CULTURE, ROUTINE STAT 8:06 AM EDT POCT GLUCOSE Routine 03/31/2025 8:05 AM EDT LAB ADD ON Routine 03/31/2025 7:50 AM EDT DIFFERENTIAL Routine 03/31/2025 6:00 AM EDT LACTIC ACID (LACTATE) Routine 03/31/2025 6:00 AM EDT TROPONIN Routine 03/31/2025 6:00 AM EDT CBC Routine 03/31/2025 6:00 AM EDT LFTS (HEPATIC PANEL) Routine 03/31/2025 6:00 AM EDT MAGNESIUM Routine 03/31/2025 6:00 AM EDT BASIC METABOLIC PANEL (BMP) Routine 03/10 6:00 AM EDT PT-INR Routine 03/31/2025 6:00 AM EDT PHOSPHORUS Routine 03/31/2025 6:[address] HEAD WITHOUT CONTRAST STAT 025 2:40 AM EDT LFTS (HEPATIC PANEL) Routine 03/30/2025 10:30 PM EDT CBC Routine 03/30/2025 10:30 PM EDT MAGNESIUM Routine 03/30/2025 10:30 PM EDT BASIC METABOLIC PANEL (BMP) Routine 03/10 10:30 PM EDT TROPONIN STAT 03/30/2025 10:30 PM EDT LACTIC ACID (LACTATE) Routine 03/30/2025 10:30 PM EDT POCT GLUCOSE Routine 03/30/2025 8:55 PM EDT XR CHEST PORTABLE Routine 03/30/2025 7:08 PM EDT LAB ADD ON Routine 03/30/2025 6:52 PM EDT TROPONIN STAT 03/30/2025 5:39 PM EDT TROPONIN Routine 03/30/2025 5:31 PM EDT MAGNESIUM Routine 03/30/2025 5:31 PM EDT LAB ADD ON Routine 03/30/2025 5:31 PM EDT LACTIC ACID (LACTATE) STAT 03/30/2025 5:31 PM EDT PTT STAT 03/30/2025 5:31 PM EDT PT-INR STAT 03/30/2025 5:31 PM EDT LFTS (HEPATIC PANEL) STAT 03/30/2025 5:31 PM EDT BASIC METABOLIC PANEL (BMP) STAT 03/10 5:31 PM EDT CBC STAT 03/30/2025 5:31 PM EDT POCT GLUCOSE Routine 03/30/2025 5:30 PM EDT POCT GLUCOSE Routine 03/30/2025 4:58 PM EDT POCT GLUCOSE Routine 03/30/2025 11:51 AM EDT POCT GLUCOSE Routine 03/30/2025 7:39 AM EDT LAB ADD ON Routine 03/30/2025 6:43 AM EDT LIPID PANEL Routine 03/30/2025 6:05 AM EDT CBC Routine 03/30/2025 6:05 AM EDT MAGNESIUM Routine 03/30/2025 6:05 AM EDT BASIC METABOLIC PANEL (BMP) Routine 03/10 6:05 AM EDT PT-INR Routine 03/30/2025 6:05 AM EDT PHOSPHORUS Routine 03/30/2025 6:05 AM EDT POCT GLUCOSE Routine 03/29/2025 8:45 PM EDT POCT GLUCOSE Routine 03/29/2025 4:52 PM EDT POCT GLUCOSE Routine 03/29/2025 11:22 AM EDT NT-PROBNP Routine 03/29/2025 6:00 AM EDT LAB ADD ON Routine 03/29/2025 6:00 AM EDT MAGNESIUM Routine 03/29/2025 6:00 AM EDT BASIC METABOLIC PANEL (BMP) Routine 03/10 6:00 AM EDT CBC AND DIFFERENTIAL Routine 03/29/2025 6:00 AM EDT PT-INR Routine 03/29/2025 6:00 AM EDT PHOSPHORUS Routine 03/29/2025 6:00 AM EDT LFTS (HEPATIC PANEL) Routine 03/29/2025 6:00 AM EDT POCT GLUCOSE Routine 03/29/2025 5:53 AM EDT HC BLOOD TYPING SEROLOGIC ABO Routine 2:50 AM EDT POCT GLUCOSE Routine 03/28/2025 11:41 PM EDT POCT GLUCOSE Routine 03/28/2025 5:13 PM EDT ECG 12-LEAD Routine 03/28/2025 12:08 PM EDT POCT GLUCOSE Routine 03/28/2025 11:09 AM EDT TTE COMPREHENSIVE Routine 03/28/2025 9:16 AM EDT Acute on chronic heart failure, unspecified heart failure type POCT GLUCOSE Routine 03/28/2025 5:28 AM EDT TROPONIN Routine 03/28/2025 4:00 AM EDT BASIC METABOLIC PANEL (BMP) Routine 03/10 4:00 AM EDT CBC AND DIFFERENTIAL Routine 03/28/2025 4:00 AM EDT MAGNESIUM Routine 03/28/2025 4:00 AM EDT PT-INR Routine 03/28/2025 4:00 AM EDT PHOSPHORUS Routine 03/28/2025 4:00 AM EDT LFTS (HEPATIC PANEL) Routine 03/28/2025 4:00 AM EDT LACTIC ACID (LACTATE) Routine 03/28/2025 1:44 AM EDT TROPONIN Routine 03/28/2025 1:44 AM EDT POCT GLUCOSE Routine 03/27/2025 11:27 PM EDT POCT GLUCOSE Routine 03/27/2025 9:09 PM EDT BASIC METABOLIC PANEL (BMP) Routine 03/09 7:26 PM EDT MAGNESIUM Routine 03/27/2025 7:26 PM EDT POCT GLUCOSE Routine 03/27/2025 4:26 PM EDT POCT GLUCOSE Routine 03/27/2025 11:42 AM EDT POCT GLUCOSE Routine 03/27/2025 5:58 AM EDT TROPONIN Routine 03/27/2025 3:42 AM EDT LACTIC ACID (LACTATE) Routine 03/27/2025 1:57 AM EDT AMMONIA Routine 03/27/2025 1:57 AM EDT BASIC METABOLIC PANEL (BMP) Routine 03/09 1:57 AM EDT MAGNESIUM Routine 03/27/2025 1:57 AM EDT PHOSPHORUS Routine 03/27/2025 1:57 AM EDT LFTS (HEPATIC PANEL) Routine 03/27/2025 1:57 AM EDT TROPONIN Routine 03/27/2025 1:40 AM EDT CBC AND DIFFERENTIAL Routine 03/27/2025 1:40 AM EDT PT-INR Routine 03/27/2025 1:40 AM EDT POCT GLUCOSE Routine 03/26/2025 11:08 PM EDT POCT GLUCOSE Routine 03/26/2025 8:[address] HEAD WITHOUT CONTRAST Imaging within next 6 hours 03/26/2025 6:27 PM EDT CLOSTRIDIOIDES (CLOSTRIDIUM) DIFFICILE, PCR Routine 03/26/2025 5:53 PM EDT LAB ADD ON Routine 03/26/2025 5:36 PM EDT POCT GLUCOSE Routine 03/26/2025 5:06 PM EDT VENOUS BLOOD GAS Routine 03/26/2025 3:28 PM EDT BASIC METABOLIC PANEL (BMP) Routine 03/09 3:28 PM EDT MAGNESIUM Routine 03/26/2025 3:[address] HEAD WITHOUT CONTRAST Routine 1:44 PM EDT POCT GLUCOSE Routine 03/26/2025 11:37 AM EDT BASIC METABOLIC PANEL (BMP) Routine 03/09 6:19 AM EDT CBC AND DIFFERENTIAL Routine 03/26/2025 6:19 AM EDT MAGNESIUM Routine 03/26/2025 6:19 AM EDT PT-INR Routine 03/26/2025 6:19 AM EDT PHOSPHORUS Routine 03/26/2025 6:19 AM EDT LFTS (HEPATIC PANEL) Routine 03/26/2025 6:19 AM EDT POCT GLUCOSE Routine 03/26/2025 6:00 AM EDT POCT GLUCOSE Routine 03/25/2025 11:59 PM EDT POCT GLUCOSE Routine 03/25/2025 8:46 PM EDT BASIC METABOLIC PANEL (BMP) Routine 03/09 8:20 PM EDT MAGNESIUM Routine 03/25/2025 8:20 PM EDT POCT GLUCOSE Routine 03/25/2025 4:46 PM EDT POCT GLUCOSE Routine 03/25/2025 12:33 PM EDT LAB ADD ON Routine 03/25/2025 11:06 AM EDT CYSTATIN C WITH ESTIMATED GLOMERULAR FILTRATION RATE (EGFR) Routine 03/25/2025 7:22 AM EDT HC BLOOD TYPING SEROLOGIC ABO Routine 7:22 AM EDT BASIC METABOLIC PANEL (BMP) Routine 03/09 7:22 AM EDT CBC AND DIFFERENTIAL Routine 03/25/2025 7:22 AM EDT LACTIC ACID (LACTATE) Routine 03/25/2025 7:22 AM EDT MAGNESIUM Routine 03/25/2025 7:22 AM EDT PT-INR Routine 03/25/2025 7:22 AM EDT PHOSPHORUS Routine 03/25/2025 7:22 AM EDT LFTS (HEPATIC PANEL) Routine 03/25/2025 7:22 AM EDT POCT GLUCOSE Routine 03/25/2025 5:03 AM EDT POCT GLUCOSE Routine 03/25/2025 12:07 AM EDT BASIC METABOLIC PANEL (BMP) Routine 03/09 8:20 PM EDT MAGNESIUM Routine 03/24/2025 6:30 PM EDT POCT GLUCOSE Routine 03/24/2025 5:47 PM EDT LACTIC ACID (LACTATE) Routine 03/24/2025 2:07 PM EDT BASIC METABOLIC PANEL (BMP) Routine 03/09 2:07 PM EDT POCT GLUCOSE Routine 03/24/2025 11:45 AM EDT LAB ADD ON Routine 03/24/2025 10:47 AM EDT VANCOMYCIN, TROUGH Timed 03/24/2025 8:55 AM EDT VANCOMYCIN, UNSPECIFIED Timed 03/24/20 25 7:45 AM EDT IMMUNOFIXATION Routine 03/24/2025 5:58 AM EDT DIFFERENTIAL Routine 03/24/2025 5:58 AM EDT FREE LIGHT CHAINS, SERUM Routine 025 5:58 AM EDT SPEP PANEL Routine 03/24/2025 5:58 AM EDT MAGNESIUM Routine 03/24/2025 5:58 AM EDT BASIC METABOLIC PANEL (BMP) Routine 03/09 5:58 AM EDT CBC Routine 03/24/2025 5:58 AM EDT PT-INR Routine 03/24/2025 5:58 AM EDT PHOSPHORUS Routine 03/24/2025 5:58 AM EDT LFTS (HEPATIC PANEL) Routine 03/24/2025 5:58 AM EDT LACTIC ACID (LACTATE) Routine 03/24/2025 5:50 AM EDT POCT GLUCOSE Routine 03/24/2025 5:42 AM EDT POCT GLUCOSE Routine 03/24/2025 12:26 AM EDT POCT GLUCOSE Routine 03/23/2025 11:44 PM EDT PTT Timed 03/23/2025 10:05 PM EDT LFTS (HEPATIC PANEL) Routine 03/23/2025 10:05 PM EDT BASIC METABOLIC PANEL (BMP) Routine 03/09 10:05 PM EDT FIBRINOGEN Routine 03/23/2025 10:05 PM EDT PT-INR Routine 03/23/2025 10:05 PM EDT CBC Routine 03/23/2025 10:05 PM EDT LACTIC ACID (LACTATE) Routine 03/23/2025 10:05 PM EDT VENOUS BLOOD GAS Routine 03/23/2025 7:20 PM EDT POCT GLUCOSE Routine 03/23/2025 5:[address] ABDOMEN/PELVIS WITH CONTRAST Imaging within next 6 hours 03/23/2025 5:30 PM EDT CBC Routine 03/23/2025 4:34 PM EDT LACTIC ACID (LACTATE) Routine 03/23/2025 4:13 PM EDT BLOOD CULTURE, ROUTINE Routine 4:13 PM EDT LAB ADD ON Routine 03/23/2025 3:46 PM EDT URINE SEDIMENT Routine 03/23/2025 1:20 PM EDT URINALYSIS WITH REFLEX TO URINE CULTURE Routine 03/23/2025 1:20 PM EDT POCT GLUCOSE Routine 03/23/2025 12:10 PM EDT LACTIC ACID (LACTATE) STAT 03/23/2025 8:29 AM EDT DIFFERENTIAL Routine 03/23/2025 8:06 AM EDT MAGNESIUM Routine 03/23/2025 8:06 AM EDT CBC Routine 03/23/2025 8:06 AM EDT LFTS (HEPATIC PANEL) Routine 03/23/2025 8:06 AM EDT BASIC METABOLIC PANEL (BMP) Routine 03/09 8:06 AM EDT POCT GLUCOSE Routine 03/23/2025 5:49 AM EDT LAB ADD ON Routine 03/23/2025 5:34 AM EDT PTT Routine 03/23/2025 3:50 AM EDT LACTIC ACID (LACTATE) Routine 03/23/2025 3:50 AM EDT MAGNESIUM Routine 03/23/2025 3:50 AM EDT BASIC METABOLIC PANEL (BMP) Routine 03/09 3:50 AM EDT CBC Routine 03/23/2025 3:50 AM EDT PT-INR Routine 03/23/2025 3:50 AM EDT PHOSPHORUS Routine 03/23/2025 3:50 AM EDT LFTS (HEPATIC PANEL) Routine 03/23/2025 3:50 AM EDT POCT GLUCOSE Routine 03/23/2025 12:09 AM EDT POTASSIUM STAT 03/22/2025 9:28 PM EDT PTT STAT 03/22/2025 7:48 PM EDT MAGNESIUM Routine 03/22/2025 7:48 PM EDT BASIC METABOLIC PANEL (BMP) Routine 03/09 7:48 PM EDT LACTIC ACID (LACTATE) Routine 03/22/2025 7:48 PM EDT BLOOD CULTURE, ROUTINE Routine 7:00 PM EDT BLOOD CULTURE, ROUTINE Routine 6:39 PM EDT POCT GLUCOSE Routine 03/22/2025 5:09 PM EDT POCT GLUCOSE Routine 03/22/2025 12:35 PM EDT PTT STAT 03/22/2025 11:49 AM EDT LACTIC ACID (LACTATE) Routine 03/22/2025 5:58 AM EDT LIPASE Routine 03/22/2025 5:58 AM EDT LIPID PANEL Routine 03/22/2025 5:58 AM EDT CBC Routine 03/22/2025 5:58 AM EDT PT-INR Routine 03/22/2025 5:58 AM EDT PHOSPHORUS Routine 03/22/2025 5:58 AM EDT MAGNESIUM Routine 03/22/2025 5:58 AM EDT BASIC METABOLIC PANEL (BMP) Routine 03/09 5:58 AM EDT LFTS (HEPATIC PANEL) Routine 03/22/2025 5:58 AM EDT POCT GLUCOSE Routine 03/22/2025 5:54 AM EDT LACTIC ACID (LACTATE) Routine 03/22/2025 12:10 AM EDT POCT GLUCOSE Routine 03/22/2025 12:05 AM EDT POCT GLUCOSE Routine 03/21/2025 7:56 PM EDT CBC Routine 03/21/2025 7:55 PM EDT LACTIC ACID (LACTATE) Routine 03/21/2025 7:55 PM EDT XR CHEST PORTABLE Routine 03/21/2025 4:[address] HEAD WITHOUT CONTRAST Routine 4:[address] ABDOMEN/PELVIS WITH CONTRAST Routine 03/21/2025 4:10 PM EDT AMMONIA Routine 03/21/2025 2:55 PM EDT LIPASE Routine 03/21/2025 2:55 PM EDT LACTIC ACID (LACTATE) Routine 03/21/2025 2:55 PM EDT MAGNESIUM Routine 03/21/2025 2:55 PM EDT BASIC METABOLIC PANEL (BMP) Routine 03/09 2:55 PM EDT BACTERIAL STOOL PCR PANEL Routine 2024 12:04 PM EDT CLOSTRIDIOIDES (CLOSTRIDIUM) DIFFICILE, PCR Routine 03/21/2025 12:04 PM EDT POCT GLUCOSE Routine 03/21/2025 11:55 AM EDT PREPARE RBC Routine 03/21/2025 7:51 AM EDT C-REACTIVE PROTEIN (CRP) Routine 025 5:45 AM EDT SEDIMENTATION RATE (ESR) Routine 025 5:45 AM EDT CBC AND DIFFERENTIAL Routine 03/21/2025 5:45 AM EDT PT-INR Routine 03/21/2025 5:45 AM EDT PHOSPHORUS Routine 03/21/2025 5:45 AM EDT MAGNESIUM Routine 03/21/2025 5:45 AM EDT BASIC METABOLIC PANEL (BMP) Routine 03/09 5:45 AM EDT LFTS (HEPATIC PANEL) Routine 03/21/2025 5:45 AM EDT VARICELLA-ZOSTER (VZV) ANTIBODY, IGM Routine 03/21/2025 5:45 AM EDT HC IADNA HERPES SOMPLX VIRUS QUANTIFICATION Routine 03/21/2025 5:45 AM EDT HEPATITIS E ANTIBODY, IGM Routine 2024 5:45 AM EDT HC BLOOD TYPING SEROLOGIC ABO Routine 5:38 AM EDT POCT GLUCOSE Routine 03/21/2025 5:28 AM EDT POCT GLUCOSE Routine 03/20/2025 11:21 PM EDT URINE SEDIMENT Routine 03/20/2025 5:30 PM EDT URINALYSIS WITH REFLEX TO URINE CULTURE Routine 03/20/2025 5:30 PM EDT POCT GLUCOSE Routine 03/20/2025 4:45 PM EDT PTT Routine 03/20/2025 12:59 PM EDT PT-INR Routine 03/20/2025 12:59 PM EDT FIBRINOGEN Routine 03/20/2025 12:59 PM EDT CBC Routine 03/20/2025 12:59 PM EDT HC ASSAY OF MAGNESIUM Routine 03/20/2025 12:59 PM EDT LFTS (HEPATIC PANEL) Routine 03/20/2025 12:59 PM EDT BASIC METABOLIC PANEL (BMP) Routine 03/09 12:59 PM EDT POCT GLUCOSE Routine 03/20/2025 11:32 AM EDT POCT GLUCOSE Routine 03/20/2025 8:21 AM EDT POCT GLUCOSE Routine 03/20/2025 7:35 AM EDT POCT GLUCOSE Routine 03/20/2025 4:58 AM EDT POCT GLUCOSE Routine 03/20/2025 4:56 AM EDT ECG 12-LEAD Routine 03/20/2025 4:24 AM EDT POCT GLUCOSE Routine 03/20/2025 12:37 AM EDT COMPLEMENT C4 Routine 03/20/2025 12:31 AM EDT COMPLEMENT C3 Routine 03/20/2025 12:31 AM EDT PTT Timed 03/20/2025 12:31 AM EDT PT-INR Routine 03/20/2025 12:31 AM EDT PHOSPHORUS Routine 03/20/2025 12:31 AM EDT MAGNESIUM Routine 03/20/2025 12:31 AM EDT LFTS (HEPATIC PANEL) Routine 03/20/2025 12:31 AM EDT FIBRINOGEN Routine 03/20/2025 12:31 AM EDT CBC Routine 03/20/2025 12:31 AM EDT BASIC METABOLIC PANEL (BMP) Routine 03/09 12:31 AM EDT POTASSIUM Routine 03/19/2025 9:12 PM EDT POCT GLUCOSE Routine 03/19/2025 5:26 PM EDT POCT GLUCOSE Routine 03/19/2025 11:08 AM EDT PTT Timed 03/19/2025 11:03 AM EDT PT-INR Routine 03/19/2025 11:03 AM EDT PHOSPHORUS Routine 03/19/2025 11:03 AM EDT MAGNESIUM Routine 03/19/2025 11:03 AM EDT LFTS (HEPATIC PANEL) Routine 03/19/2025 11:03 AM EDT FIBRINOGEN Routine 03/19/2025 11:03 AM EDT CBC Routine 03/19/2025 11:03 AM EDT BASIC METABOLIC PANEL (BMP) Routine 03/09 11:03 AM EDT BASIC METABOLIC PANEL (BMP) Routine 03/09 5:24 AM EDT LACTIC ACID (LACTATE) Routine 03/19/2025 5:24 AM EDT POCT GLUCOSE Routine 03/19/2025 5:14 AM EDT POCT GLUCOSE Routine 03/19/2025 5:09 AM EDT POCT GLUCOSE Routine 03/19/2025 5:07 AM EDT ECG 12-LEAD Routine 03/19/2025 5:02 AM EDT XR CHEST PORTABLE Imaging in AM 03/19/2025 4:40 AM EDT PTT Timed 03/19/2025 12:06 AM EDT PT-INR Routine 03/19/2025 12:06 AM EDT PHOSPHORUS Routine 03/19/2025 12:06 AM EDT MAGNESIUM Routine 03/19/2025 12:06 AM EDT LFTS (HEPATIC PANEL) Routine 03/19/2025 12:06 AM EDT LACTIC ACID (LACTATE) Routine 03/19/2025 12:06 AM EDT FIBRINOGEN Routine 03/19/2025 12:06 AM EDT CBC Routine 03/19/2025 12:06 AM EDT BASIC METABOLIC PANEL (BMP) Routine 03/09 12:06 AM EDT POCT GLUCOSE Routine 03/19/2025 12:05 AM EDT XR ABDOMEN 2 VIEWS Routine 03/18/2025 11:22 PM EDT FIBRINOGEN Routine 03/18/2025 9:40 PM EDT CBC Routine 03/18/2025 8:37 PM EDT LACTIC ACID (LACTATE) Routine 03/18/2025 8:37 PM EDT VENOUS BLOOD GAS Routine 03/18/2025 8:37 PM EDT PT-INR Routine 03/18/2025 8:37 PM EDT PHOSPHORUS Routine 03/18/2025 8:37 PM EDT MAGNESIUM Routine 03/18/2025 8:37 PM EDT LFTS (HEPATIC PANEL) Routine 03/18/2025 8:37 PM EDT BASIC METABOLIC PANEL (BMP) Routine 03/09 8:37 PM EDT POCT GLUCOSE Routine 03/18/2025 5:37 PM EDT TTE COMPREHENSIVE Routine 03/18/2025 3:33 PM EDT Localized edema LACTIC ACID (LACTATE) Routine 03/18/2025 2:40 PM EDT LYME SCREEN W/REFLEX TO ENZYME IMMUNOASSAYS Routine 03/18/2025 12:39 PM EDT US ABDOMEN LIMITED WITH DOPPLER Routine 03/18/2025 11:11 AM EDT HC HEPARIN NEUTRALIZATION Routine 2024 10:08 AM EDT LUPUS ANTICOAGULANT PANEL Routine 2024 10:08 AM EDT HC HEPARIN ASSAY Routine 03/18/2025 10:08 AM EDT PTT Routine 03/18/2025 10:08 AM EDT INR Routine 03/18/2025 10:08 AM EDT SPECIAL COAGULATION INTERPRETATION Routine 03/18/2025 10:08 AM EDT ANTI-CARDIOLIPIN ANTIBODIES Routine 03/09 10:08 AM EDT FACTOR II Routine 03/18/2025 10:08 AM EDT HC CLOTTING FACTOR V ACG/PROACCELERIN LABILE FACTOR Routine 03/18/2025 10:08 AM EDT ANTI-XA (FOR LOVENOX) Routine 03/18/2025 10:08 AM EDT PTT MIXING STUDIES Routine 03/18/2025 10:08 AM EDT PT MIXING STUDIES Routine 03/18/2025 10:08 AM EDT FIBRINOGEN Routine 03/18/2025 10:08 AM EDT FACTOR VIII Routine 03/18/2025 10:08 AM EDT FACTOR VII Routine 03/18/2025 10:08 AM EDT LUPUS ANTICOAGULANT PANEL Routine 2024 10:08 AM EDT SPECIAL SLIDE BOX Routine 03/18/2025 10:08 AM EDT FACTOR INHIBITOR ASSAY Routine 10:08 AM EDT VENOUS BLOOD GAS Routine 03/18/2025 10:08 AM EDT PT-INR Routine 03/18/2025 10:08 AM EDT PHOSPHORUS Routine 03/18/2025 10:08 AM EDT MAGNESIUM Routine 03/18/2025 10:08 AM EDT CBC Routine 03/18/2025 10:08 AM EDT LFTS (HEPATIC PANEL) Routine 03/18/2025 10:08 AM EDT LACTIC ACID (LACTATE) Routine 03/18/2025 10:08 AM EDT BASIC METABOLIC PANEL (BMP) Routine 03/09 10:08 AM EDT SODIUM, RANDOM URINE Routine 03/18/2025 10:01 AM EDT NT-PROBNP Routine 03/18/2025 9:57 AM EDT POCT GLUCOSE Routine 03/18/2025 5:29 AM EDT AMMONIA Routine 03/18/2025 4:46 AM EDT CRYOGLOBULINS Routine 03/18/2025 4:46 AM EDT PT-INR Routine 03/18/2025 4:46 AM EDT PHOSPHORUS Routine 03/18/2025 4:46 AM EDT MAGNESIUM Routine 03/18/2025 4:46 AM EDT CBC Routine 03/18/2025 4:46 AM EDT LFTS (HEPATIC PANEL) Routine 03/18/2025 4:46 AM EDT LACTIC ACID (LACTATE) Routine 03/18/2025 4:46 AM EDT KETONE BODIES, SERUM Routine 03/18/2025 4:46 AM EDT BASIC METABOLIC PANEL (BMP) Routine 03/09 4:46 AM EDT ECG 12-LEAD Routine 03/18/2025 4:44 AM EDT VENOUS BLOOD GAS Routine 03/18/2025 3:18 AM EDT TRANSFUSE RED BLOOD CELLS Routine 2024 3:12 AM EDT BLOOD CULTURE, ROUTINE Routine 2:26 AM EDT POCT GLUCOSE Routine 03/18/2025 12:24 AM EDT PTT Timed 03/18/2025 12:22 AM EDT PT-INR Routine 03/18/2025 12:22 AM EDT CBC Routine 03/18/2025 12:22 AM EDT LFTS (HEPATIC PANEL) Routine 03/18/2025 12:22 AM EDT AFP (NON-MATERNAL SPECIMENS) Routine 03/2025 12:22 AM EDT LACTIC ACID (LACTATE) Routine 03/18/2025 12:22 AM EDT BABESIA SPECIES PCR Routine 03/18/2025 12:22 AM EDT HIV-1 VIRAL LOAD (PCR) Routine 12:[address] HEAD WITHOUT CONTRAST Imaging within next 6 hours 03/17/2025 10:09 PM EDT LAB ADD ON Routine 03/17/2025 9:35 PM EDT CREATINE KINASE (CK) Routine 03/17/2025 8:10 PM EDT SPECIAL SLIDE BOX Routine 03/17/2025 8:10 PM EDT HAPTOGLOBIN Routine 03/17/2025 8:10 PM EDT LDH Routine 03/17/2025 8:10 PM EDT Ehrlichia/anaplasma PCR Routine 03/17/20 8:10 PM EDT URINALYSIS Routine 03/17/2025 8:02 PM EDT AMMONIA Routine 03/17/2025 8:02 PM EDT Basic serum toxicology Routine 8:02 PM EDT PHOSPHATIDYLETHANOL Routine 03/17/2025 8:02 PM EDT TOXICOLOGY SCREEN, URINE Routine 025 8:02 PM EDT ACETAMINOPHEN LEVEL Timed 03/17/2025 8:02 PM EDT URINE CULTURE Routine 03/17/2025 8:02 PM EDT HEPATITIS A ANTIBODY, IGM Routine 2024 8:02 PM EDT ANTIBODY IDENTIFICATION Routine 03/17/20 25 7:47 PM EDT ABO AND RH Routine 03/17/2025 7:47 PM EDT HC BLOOD TYPING SEROLOGIC ABO Routine 7:47 PM EDT CBC AND DIFFERENTIAL Routine 03/17/2025 7:44 PM EDT FIBRINOGEN Routine 03/17/2025 7:44 PM EDT PTT Timed 03/17/2025 7:44 PM EDT PT-INR Routine 03/17/2025 7:44 PM EDT VENOUS BLOOD GAS STAT 03/17/2025 7:44 PM EDT LACTIC ACID (LACTATE) STAT 03/17/2025 7:44 PM EDT PHOSPHORUS Routine 03/17/2025 7:44 PM EDT MAGNESIUM Routine 03/17/2025 7:44 PM EDT LFTS (HEPATIC PANEL) Routine 03/17/2025 7:44 PM EDT BASIC METABOLIC PANEL (BMP) Routine 02/2025 7:44 PM EDT VANCOMYCIN RESISTANT ENTEROCOCCI (VRE) RECTAL SCREEN Routine 03/17/2025 7:44 PM EDT MRSA NASAL SCREEN Routine 03/17/2025 7:44 PM EDT LDH STAT 03/17/2025 1:37 PM EDT HAPTOGLOBIN STAT 03/17/2025 1:37 PM EDT FIBRINOGEN STAT 03/17/2025 1:37 PM EDT D-DIMER STAT 03/17/2025 1:37 PM EDT HC BLOOD TYPING SEROLOGIC ABO Routine 1:[address] ABDOMEN/PELVIS WITHOUT CONTRAST STAT 03/17/2025 11:56 AM EDT POCT GLUCOSE Routine 03/17/2025 11:45 AM EDT PT-INR Routine 03/17/2025 7:51 AM EDT COMPREHENSIVE METABOLIC PANE L (CMP) Routine 03/17/2025 7:51 AM EDT CBC Routine 03/17/2025 7:51 AM EDT RHEUMATOID FACTOR Routine 03/17/2025 7:51 AM EDT CRYOGLOBULINS Routine 03/17/2025 7:51 AM EDT POCT GLUCOSE Routine 03/17/2025 7:24 AM EDT POCT GLUCOSE Routine 03/16/2025 8:14 PM EDT POCT GLUCOSE Routine 03/16/2025 4:36 PM EDT ECG 12-LEAD Routine 03/16/2025 1:39 PM EDT POCT GLUCOSE Routine 03/16/2025 11:21 AM EDT HC CREATININE OTHER SOURCE Routine 03/16 10:52 AM EDT ECG 12-LEAD Routine 03/16/2025 10:09 AM EDT POCT GLUCOSE Routine 03/16/2025 7:48 AM EDT AMMONIA STAT 03/16/2025 7:40 AM EDT SODIUM, RANDOM URINE Routine 03/16/2025 7:31 AM EDT FECAL IMMUNOCHEMICAL BLOOD TEST X1 (FIT) Routine 03/16/2025 7:31 AM EDT LDH Routine 03/16/2025 5:56 AM EDT HAPTOGLOBIN Routine 03/16/2025 5:56 AM EDT PT-INR Routine 03/16/2025 5:56 AM EDT CBC Routine 03/16/2025 5:56 AM EDT 25-OH VITAMIN D Routine 03/16/2025 5:56 AM EDT COMPREHENSIVE METABOLIC PANE L (CMP) Routine 03/16/2025 5:56 AM EDT PHOSPHORUS Routine 03/16/2025 5:56 AM EDT MAGNESIUM Routine 03/16/2025 5:56 AM EDT POCT GLUCOSE Routine 03/15/2025 7:41 PM EDT LIVER KIDNEY MICROSOMAL (LKM1) ANTIBODIES Routine 03/15/2025 5:40 PM EDT COMPLEMENT C4 Routine 03/15/2025 5:40 PM EDT COMPLEMENT C3 Routine 03/15/2025 5:40 PM EDT GLOMERULAR BASEMENT MEMBRANE (GBM) ANTIBODY Routine 03/15/2025 5:40 PM EDT ANTI-NEUTROPHIL CYTOPLASMIC ANTIBODY (ANCA) Routine 03/15/2025 5:40 PM EDT DOUBLE STRANDED DNA ANTIBODIES Routine 03/15/2025 5:40 PM EDT MONOCLONAL PROTEIN STUDY, SERUM Routine 03/15/2025 5:40 PM EDT ANTISTREPTOLYSIN O (ASO) SCREEN Routine 03/15/2025 5:40 PM EDT POCT GLUCOSE Routine 03/15/2025 5:09 PM EDT URINE SEDIMENT Routine 03/15/2025 12:53 PM EDT URINALYSIS WITH REFLEX TO URINE CULTURE Routine 03/15/2025 12:53 PM EDT URINE CULTURE Routine 03/15/2025 12:53 PM EDT POCT GLUCOSE Routine 03/15/2025 11:54 AM EDT XR CHEST PORTABLE Routine 03/15/2025 8:06 AM EDT POCT GLUCOSE Routine 03/15/2025 7:57 AM EDT THYROID STIMULATING HORMONE (TSH) Routine 03/15/2025 5:38 AM EDT LFTS (HEPATIC PANEL) Routine 03/15/2025 5:38 AM EDT CBC Routine 03/15/2025 5:38 AM EDT MAGNESIUM Routine 03/15/2025 5:38 AM EDT BASIC METABOLIC PANEL (BMP) Routine 12/2024 5:38 AM EDT POCT GLUCOSE Routine 03/14/2025 8:16 PM EDT POCT GLUCOSE Routine 03/14/2025 4:46 PM EDT HC NASAL SMEAR EOSINOPHILS Routine 03/14 1:59 PM EDT TOTAL PROTEIN CREATININE RATIO, RANDOM URINE Routine 03/14/2025 1:59 PM EDT URINE SEDIMENT Routine 03/14/2025 1:59 PM EDT OSMOLALITY (URINE, RANDOM) Routine 03/14 1:59 PM EDT CREATININE (RANDOM URINE) Routine 2024 1:59 PM EDT SODIUM, RANDOM URINE Routine 03/14/2025 1:59 PM EDT URINALYSIS Routine 03/14/2025 1:59 PM EDT POCT GLUCOSE Routine 03/14/2025 11:35 AM EDT ECG 12-LEAD Routine 03/14/2025 10:18 AM EDT POCT GLUCOSE Routine 03/14/2025 7:34 AM EDT MAGNESIUM Routine 03/14/2025 5:27 AM EDT BASIC METABOLIC PANEL (BMP) Routine 11/2024 5:27 AM EDT LFTS (HEPATIC PANEL) Routine 03/14/2025 5:27 AM EDT POCT GLUCOSE Routine 03/13/2025 7:22 PM EDT POCT GLUCOSE Routine 03/13/2025 4:39 PM EDT POCT GLUCOSE Routine 03/13/2025 11:30 AM EDT ECG 12-LEAD Routine 03/13/2025 9:43 AM EDT BASIC METABOLIC PANEL (BMP) Routine 10/2024 8:07 AM EDT LFTS (HEPATIC PANEL) Routine 03/13/2025 8:07 AM EDT CBC Routine 03/13/2025 8:07 AM EDT POCT GLUCOSE Routine 03/13/2025 7:25 AM EDT POCT GLUCOSE Routine 03/12/2025 7:14 PM EDT POCT GLUCOSE Routine 03/12/2025 4:36 PM EDT POCT GLUCOSE Routine 03/12/2025 11:47 AM EDT US KIDNEYS AND BLADDER Routine 9:54 AM EDT POCT GLUCOSE Routine 03/12/2025 7:42 AM EDT Antinuclear antibody, titer and pattern Routine 03/12/2025 5:43 AM EDT BASIC METABOLIC PANEL (BMP) Routine 09/2024 5:43 AM EDT ANTINUCLEAR ANTIBODY (GILBERTO) Routine 03/12 5:43 AM EDT SMOOTH MUSCLE ANTIBODY Routine 5:43 AM EDT MRI CHOLANGIOPANCREATOGRAPHY (MRCP) WITHOUT CONTRAST Routine 03/11/2025 9:58 PM EDT URINE SEDIMENT STAT 03/11/2025 9:29 PM EDT CREATININE (RANDOM URINE) Routine 2024 9:29 PM EDT SODIUM, RANDOM URINE Routine 03/11/2025 9:29 PM EDT URINALYSIS WITH REFLEX TO URINE CULTURE STAT 03/11/2025 9:29 PM EDT URINE CULTURE Routine 03/11/2025 9:29 PM EDT POCT GLUCOSE Routine 03/11/2025 9:14 PM EDT POCT GLUCOSE Routine 03/11/2025 4:20 PM EDT POCT GLUCOSE Routine 03/11/2025 12:26 PM EDT LAB ADD ON Routine 03/11/2025 10:38 AM EDT POCT GLUCOSE Routine 03/11/2025 9:48 AM EDT US ABDOMEN LIMITED SINGLE ORGAN Routine 03/11/2025 8:57 AM EDT TTE COMPREHENSIVE Routine 03/11/2025 8:48 AM EDT Acute heart failure, unspecified heart failure type HEMOGLOBIN A1C Routine 03/11/2025 5:33 AM EDT HEPATITIS B SURFACE ANTIBODY Routine 08/2024 5:33 AM EDT FOLATE Routine 03/11/2025 5:33 AM EDT VITAMIN B12 Routine 03/11/2025 5:33 AM EDT FERRITIN Routine 03/11/2025 5:33 AM EDT IRON AND IRON BINDING CAPACITY Routine 03/11/2025 5:33 AM EDT LFTS (HEPATIC PANEL) Routine 03/11/2025 5:33 AM EDT CBC AND DIFFERENTIAL Routine 03/11/2025 5:33 AM EDT PHOSPHORUS Routine 03/11/2025 5:33 AM EDT MAGNESIUM Routine 03/11/2025 5:33 AM EDT BASIC METABOLIC PANEL (BMP) Routine 08/2024 5:33 AM EDT HEPATITIS C ANTIBODY, QUALITATIVE Routine 03/11/2025 5:33 AM EDT HEPATITIS B SURFACE ANTIGEN Routine 08/2024 5:33 AM EDT HEPATITIS B CORE ANTIBODY, TOTAL Routine 03/11/2025 5:33 AM EDT HEPATITIS A ANTIBODY, TOTAL Routine 08/2024 5:33 AM EDT Cytomegalovirus (CMV) PCR, blood Routine 03/11/2025 5:33 AM EDT Jessica-Jacobs virus (EBV) PCR , blood Routine 03/11/2025 5:33 AM EDT ECG 12-LEAD STAT 03/10/2025 11:57 PM EDT POCT GLUCOSE Routine 03/10/2025 8:57 PM EDT POCT GLUCOSE Routine 03/10/2025 8:55 PM EDT ECG 12-LEAD Routine 03/10/2025 8:52 PM EDT TROPONIN STAT 03/10/2025 3:59 PM EDT ECG 12-LEAD Routine 03/10/2025 3:19 PM EDT XR CHEST 1 VIEW Routine 03/10/2025 2:43 PM EDT TROPONIN Routine 03/10/2025 2:14 PM EDT NT-PROBNP STAT 03/10/2025 2:14 PM EDT MAGNESIUM STAT 03/10/2025 2:14 PM EDT LFTS (HEPATIC PANEL) STAT 03/10/2025 2:14 PM EDT BASIC METABOLIC PANEL (BMP) STAT 07/2024 2:14 PM EDT CBC AND DIFFERENTIAL STAT 03/10/2025 2:14 PM EDT POCT GLUCOSE Routine 03/08/2025 11:46 AM EDT POCT GLUCOSE Routine 03/08/2025 7:50 AM EDT CBC AND DIFFERENTIAL Routine 03/08/2025 6:02 AM EDT COMPREHENSIVE METABOLIC PANE L (CMP) Routine 03/08/2025 6:02 AM EDT POCT GLUCOSE Routine 03/08/2025 12:59 AM EDT URINE SEDIMENT STAT 03/08/2025 12:32 AM EDT URINALYSIS WITH REFLEX TO URINE CULTURE STAT 03/08/2025 12:32 AM EDT URINE CULTURE Routine 03/08/2025 12:32 AM EDT XR CHEST PORTABLE Routine 03/07/2025 4:43 PM EDT NT-PROBNP STAT 03/07/2025 4:32 PM EDT LIPASE STAT 03/07/2025 4:32 PM EDT LFTS (HEPATIC PANEL) STAT 03/07/2025 4:32 PM EDT BASIC METABOLIC PANEL (BMP) STAT 02/08 4:32 PM EDT CBC AND DIFFERENTIAL STAT 03/07/2025 4:32 PM EDT URINE SEDIMENT STAT 03/07/2025 4:31 PM EDT URINALYSIS WITH REFLEX TO URINE CULTURE STAT 03/07/2025 4:31 PM EDT URINE CULTURE Routine 03/07/2025 4:31 PM EDT ECG 12-LEAD STAT 03/07/2025 1:22 PM EDT URINE SEDIMENT STAT 01/31/2025 1:11 AM EDT URINALYSIS WITH REFLEX TO URINE CULTURE STAT 01/31/2025 1:11 AM EDT URINE CULTURE Routine 01/31/2025 1:11 AM EDT COVID PANDEMIC RESPIRATORY VIRAL ORDER (PRO) STAT 01/30/2025 11:38 PM EDT TROPONIN STAT 01/30/2025 11:26 PM EDT ECG 12-LEAD STAT 01/30/2025 8:31 PM EDT TROPONIN Routine 01/30/2025 8:21 PM EDT NT-PROBNP Routine 01/30/2025 8:21 PM EDT MAGNESIUM Routine 01/30/2025 8:21 PM EDT BASIC METABOLIC PANEL (BMP) STAT 01/08 8:21 PM EDT CBC AND DIFFERENTIAL STAT 01/30/2025 8:21 PM EDT XR CHEST 1 VIEW Routine 01/30/2025 7:57 PM EDT ECG 12-LEAD STAT 01/30/2025 7:49 PM EDT ENDOSCOPY, COLON 07/28/2024 1:[address] CHEST WITH CONTRAST Routine 4 1:02 PM EDT Other chest pain BD DXA AXIAL (SPINE) WITH HIP Routine 11:00 AM EDT Vitamin D insufficiency BI MAMMOGRAM SCREENING WITH TOMOSYNTHESIS WITH CAD (BILATERAL) Routine 10/09/2018 12:58 PM EDT Breast screening DIABETES EYE EXAM FOR RESULT ENTRY ONLY Routine 01/08/2018 from Last 3 Months or Most Recently Relevant to Health Maintenance Results * (ABNORMAL) POCT Glucose (04/15/2025 12:11 PM EST) Only the most recent of23 resultswithin the time period is included. Glucose 261(H) 70 - 99 mg/dL 04/15/2025 12:13 PM EST [facility] GROUPS 1 & 2 Blood (Blood) 04/15/2025 12: 11 PM EST 04/15/2025 12:13 PM EST Adria Anderson MD LAB POCT DOCKED DEVICE UNSOLICT ED RESULTS Final Result Performing Organization Address City/State/[facility] Co de Phone Number [facility] SPECIAL [facility] GROUPS 1 & [address] [place], [place] [id number] * (ABNORMAL) CBC (04/15/2025 6:40 AM EST) Only the most recent of39 resultswithin the time period is included. WBC 16.89(H) 4.00 - 11.00 K/uL 04/15/2025 8:03 AM [facility] RBC 2.82(L) 4.00 - 5.20 M/uL 04/15/2025 8:03 AM [facility] Hemoglobin 8.2(L) 12.0 - 16.0 g/dL 04/15/2025 8:03 AM [facility] Hematocrit 25.3(L) 36.0 - 46.0 % 04/15/2025 8:03 AM [facility] MCV 89.7 80.0 - 100.0 fL 04/15/2025 8:03 AM [facility] MCH 29.1 27.0 - 31.0 pg 04/15/2025 8:03 AM [facility] MCHC 32.4 32.0 - 36.0 g/dL 04/15/2025 8:03 AM [facility] PLT 342 150 - 450 K/uL 04/15/2025 8:03 AM [facility] MPV 9.3 8.4 - 12.0 fL 04/15/2025 8:03 AM [facility] RDW-CV 16.5(H) 11.5 - 14.5 % 04/15/2025 8:03 AM [facility] Absolute NRBC 0.00 <=0.00 K cells/uL 04/15/2025 8:03 AM [facility] NRBC 0.0 <=0.0 /100 WBCs 04/15/2025 8:03 AM [facility] Blood (Blood) 04/15/2025 6:4 0 AM EST 04/15/2025 7:46 AM EST us Virginia Gonsales MD LAB BLOOD BKR ORDERABLES Final R esult Performing Organization Address City/[facility]/ZIP Co de Phone Number [address] [id number] * Magnesium (04/15/2025 6:40 AM EST) Only the most recent of49 resultswithin the time period is included. Magnesium 1.8 1.7 - 2.6 mg/dL 04/15/2025 8:26 AM [facility] Blood (Blood) 04/15/2025 6:4 0 AM EST 04/15/2025 7:39 AM EST us Alia Vail DNP LAB BLOOD BKR ORDERABLES Fi nal Result Performing Organization Address City/[facility]/ZIP Co de Phone Number [address] [address] * (ABNORMAL) Basic Metabolic Panel (BMP) (04/15/2025 6:40 AM EST) Only the most recent of55 resultswithin the time period is included. Sodium 137 136 - 145 mmol/L 04/15/2025 8:26 AM [facility] Potassium 4.2 3.4 - 5.1 mmol/L 04/15/2025 8:26 AM [facility] Chloride 104 98 - 107 mmol/L 04/15/2025 8:26 AM [facility] CO2 20 20 - 31 mmol/L 04/15/2025 8:26 AM [facility] Anion Gap 13 3 - 17 mmol/L 04/15/2025 8:26 AM [facility] BUN 33(H) 6 - 23 mg/dL 04/15/2025 8:26 AM [facility] Creatinine 1.46(H) 0.50 - 1.00 mg/dL 04/15/2025 8:26 AM [facility] eGFR 39(L) >59 mL/min/1. 73m2 04/15/2025 8:26 AM [facility] Comment:Estimated glomerular filtration rate calculated using the CKD-EPI refit equation. Glucose 83 70 - 99 mg/dL 04/15/2025 8:26 AM [facility] Calcium 9.5 8.5 - 10.5 mg/dL 04/15/2025 8:26 AM [facility] Blood (Blood) 04/15/2025 6:4 0 AM EST 04/15/2025 7:39 AM EST Alia Vail [facility] LAB BLOOD BKR ORDERABLES Fi nal Result [address] [address] * (ABNORMAL) RBC Antibody Identification (04/13/2025 3:23 AM EST) Only the most recent of2 resultswithin the time period is included. Anti-JKB POS <JKB(A) 04/13/2025 12:34 PM EST [facility] [facility] Blood (Blood) Catheter/Line / Unknown 04/13/2025 3:23 AM EST 04/13/2025 3:37 AM EST Alia Vail DNP LAB BLOOD BANK TEST ORDERAB LES Final Result [facility]OLOG[facility] [address] [place] [id number] * (ABNORMAL) Type and Screen (ABO, Rh, Antibody Screen) (04/13/2025 3:23 AM EST) ABO/Rh A POS 04/13/2025 4:42 AM EST [facility] Antibody Screen POS(A) 4:42 AM EST [facility] Sample Expiration 04/16/2025 23:59 04/13/2025 4:42 AM EST [facility] Blood (Blood) Catheter/Line / Unknown 04/13/2025 3:23 AM EST 04/13/2025 3:37 AM EST us Alia Vail DNP LAB BLOOD BANK TEST ORDERAB LES Final Result Performing Organization Address City/State/[facility] Co de Phone Number [facility]OLOGY [address] [place] [id number] * XR Chest Portable (04/12/2025 8:17 AM EST) Anatomical Region Laterality Modality Chest Computed Radiogr aphy 04/12/2025 10:3 9 AM EST Impressions 04/12/2025 10:41 AM EST The heart size is at the upper limits of normal. Lungs however are well expanded and clear. There is no evidence of pneumonia or other infection Narrative 04/12/2025 10:41 AM EST XR CHEST PORTABLE Referring clinician's provided indication for this examination in [facility]: Pneumonia; concern for worsening PNA; Infection COMPARISON: XR CHEST PORTABLE FINDINGS: Devices/Tubes/Lines: None. Lungs: RIGHT lung is well expanded and clear. Pleura: Normal. No pleural effusion or pneumothorax. Heart/Mediastinum: Normal heart and mediastinum. Bones/Soft Tissues: Normal. No significant skeletal abnormality. Procedure Note Bella Barreto MD - 04/12/2025 XR CHEST PORTABLE Referring clinician's provided indication for this examination in [facility]:Pneumonia; concern for worsening PNA; Infection COMPARISON: XR CHEST PORTABLE FINDINGS: Devices/Tubes/Lines: None. Lungs: RIGHT lung is well expanded and clear. Pleura: Normal. No pleural effusion or pneumothorax. Heart/Mediastinum: Normal heart and mediastinum. Bones/Soft Tissues: Normal. No significant skeletal abnormality. IMPRESSION: The heart size is at the upper limits of normal. Lungs however are well expanded and clear. There is no evidence of pneumonia or other infection us Adore Kim MEDICATION ASSISTANT IMG XR CHEST Final Result * MRSA Screen, Culture (04/12/2025 6:10 AM EST) Only the most recent of2 resultswithin the time period is included. Methicillin Resistant Staphylococcus Aureus (MRSA) Screen Culture/Test No MRSA isolated 04/13/2025 9:00 AM EST [facility] Swab (Anterior Nares) Non-Blood Collection / Unknown 04/12/2025 6:10 AM EST 04/12/2025 9:36 AM EST Madison Enicso MD LAB MICROBIOLOGY CULTURE ORDERABLES Final Result [address] [address] * (ABNORMAL) Hepatic Panel (LFTs) (04/12/2025 2:08 AM EST) Only the most recent of34 resultswithin the time period is included. AST 28 9 - 32 U/L 04/12/2025 6:26 AM EST [facility] ALT 17 7 - 33 U/L 04/12/2025 6:26 AM EST [facility] Alkaline Phosphatase 308(H) 40 - 130 U/L 04/12/2025 6:26 AM EST [facility] Bilirubin, Total 0.5 0.0 - 1.2 mg/dL 04/12/2025 6:26 AM [facility] Bilirubin, Direct 0.3 0.0 - 0.3 mg/dL 04/12/2025 6:26 AM EST [facility] Total Protein 6.5 6.4 - 8.3 g/dL 04/12/2025 6:26 AM EST [facility] Albumin 3.1(L) 3.5 - 5.2 g/dL 04/12/2025 6:26 AM EST [facility] Globulin 3.4 1.9 - 4.1 g/dL 04/12/2025 6:26 AM EST [facility] Blood (Blood) Catheter/Line / Unknown 04/12/2025 2:08 AM EST 04/12/2025 2:40 AM EST us Alia Vail DNP LAB BLOOD BKR ORDERABLES Fi nal Result Performing Organization Address City/[facility]/ZIP Co de Phone Number [address] [address] * (ABNORMAL) Troponin (04/12/2025 2:08 AM EST) Only the most recent of16 resultswithin the time period is included. Pathologist [facility] Troponin-T HS Gen5 41(H) 0 - 9 ng/L 04/12/2025 5:40 AM [facility] Blood (Blood) Catheter/Line / Unknown 04/12/2025 2:08 AM EST 04/12/2025 2:40 AM EST us Madison Enciso MD LAB BLOOD BKR ORDERABLES Final Result Performing Organization Address City/[facility] Co de Phone Number [address] [address] * (ABNORMAL) Comprehensive Metabolic Panel (CMP) (04/12/2025 12:40 AM EST) Only the most recent of4 resultswithin the time period is included. Sodium 131(L) 136 - 145 mmol/L 04/12/2025 7:01 AM [facility] Potassium 3.9 3.4 - 5.1 mmol/L 04/12/2025 7:01 AM [facility] Chloride 96(L) 98 - 107 mmol/L 04/12/2025 7:01 AM [facility] CO2 20 20 - 31 mmol/L 04/12/2025 7:01 AM [facility] Anion Gap 15 3 - 17 mmol/L 04/12/2025 7:01 AM [facility] BUN 37(H) 6 - 23 mg/dL 04/12/2025 7:01 AM [facility] Creatinine 1.44(H) 0.50 - 1.00 mg/dL 04/12/2025 7:01 AM [facility] eGFR 40(L) >59 mL/min/1. 73m2 04/12/2025 7:01 AM [facility] Comment:Estimated glomerular filtration rate calculated using the CKD-EPI refit equation. Glucose 263(H) 70 - 99 mg/dL 04/12/2025 7:01 AM [facility] Calcium 9.3 8.5 - 10.5 mg/dL 04/12/2025 7:01 AM [facility] AST 28 9 - 32 U/L 04/12/2025 7:01 AM [facility] ALT 19 7 - 33 U/L 04/12/2025 7:01 AM [facility] Alkaline Phosphatase 309(H) 40 - 130 U/L 04/12/2025 7:01 AM [facility] Bilirubin, Total 0.5 0.0 - 1.2 mg/dL 04/12/2025 7:01 AM [facility] Total Protein 6.6 6.4 - 8.3 g/dL 04/12/2025 7:01 AM [facility] Albumin 3.0(L) 3.5 - 5.2 g/dL 04/12/2025 7:01 AM [facility] Globulin 3.6 1.9 - 4.1 g/dL 04/12/2025 7:01 AM [facility] Blood (Blood) Venipuncture / Unknown 04/12/2025 12:40 AM EST 04/12/2025 1:32 AM EST Madison Enciso MD LAB BLOOD BKR ORDERABLES Final Result Performing Organization Address City/State/[facility] Co de Phone Number [address] [address] * (ABNORMAL) Urine Culture (04/11/2025 4:12 PM EST) Only the most recent of8 resultswithin the time period is included. Urine Culture/Tala t >100,000 CFU/mL Enterococcus faecium(A) RAPID SUSCEPTIBILITY TESTING (EULOGIO) 04/14/2025 3:29 PM [facility] Urine (Urine, Voided) Non-Blood Collection / Unknown 04/11/2025 4:12 PM EST 04/11/2025 8:05 PM EST Narrative [facility] - 04/14/2025 3:29 PM EST Plus growth of clinically insignificant microbiota. Organism Antibiotic Method Susceptibility Enterococcus faecium Ampicillin RAPID SUSCE PTIBILITY TESTING (EULOGIO) >=32: Resistant Enterococcus faecium Ciprofloxacin RAPID SUSCE PTIBILITY TESTING (EULOGIO) >=8: Resistant Enterococcus faecium Levofloxacin RAPID SUSCE PTIBILITY TESTING (EULOGIO) >=8: Resistant Enterococcus faecium Linezolid RAPID SUSCE PTIBILITY TESTING (EULOGIO) 2: Susceptible Enterococcus faecium Vancomycin RAPID SUSCE PTIBILITY TESTING (EULOGIO) >=32: Resistant Enterococcus faecium Doxycycline RAPID SUSCE PTIBILITY TESTING (EULOGIO) >=16: Resistant Enterococcus faecium Tetracycline RAPID SUSCE PTIBILITY TESTING (EULOGIO) >=16: Resistant Enterococcus faecium Nitrofurantoin RAPID SUSCE PTIBILITY TESTING (EULOGIO) 64: Intermediate Alia Vail [facility] LAB MICROBIOLOGY CULTURE OR DERABLES Final Result [address] [address] * (ABNORMAL) Urinalysis with Reflex to Urine Culture (04/11/2025 12:55 PM EST) Only the most recent of10 resultswithin the time period is included. Color Maria A(A) Yellow 04/11/2025 2:07 PM [facility] Comment:Abnormal urine color may be associated with false-positive results. Interpret results with caution. Clarity Turbid(A) Clear 04/11/2025 2:07 PM EST [facility] Glucose Negative Negative 04/11/2025 2:07 PM [facility] Bilirubin Urine Negative Negative 2:07 PM EST [facility] Ketone Urine Negative Negative 04/11/2025 2:07 PM EST [facility] Specific [place] 1.012 1.001 - 1.035 04/11/2025 2:07 PM EST [facility] Blood 2+(A) Negative 04/11/2025 2:07 PM [facility] pH 5.5 5.0 - 8.0 04/11/2025 2:07 PM EST [facility] Protein 1+(A) Negative 04/11/2025 2:07 PM [facility] Nitrites Negative Negative 04/11/2025 2:07 PM [facility] Leukocyte Esterase 3+(A) Negative 04/11/2025 2:07 PM EST [facility] Urobilinogen Negative Negative 04/11/2025 2:07 PM EST [facility] Urine (Urine, Voided) Non-Blood Collection / Unknown 04/11/2025 12:55 PM EST 04/11/2025 1:14 PM EST Alia Vail [facility] LAB URINE ORDERABLES Final Result Performing Organization Address City/[facility]/ZIP Co de Phone Number [address] [address] * (ABNORMAL) URINE SEDIMENT (04/11/2025 12:55 PM EST) Only the most recent of7 resultswithin the time period is included. WBC >100(A) 0 - 9 /hpf 04/11/2025 2:39 PM EST [facility] RBC 10-20(A) 0 - 2 /hpf 04/11/2025 2:39 PM [facility] Squamous Epithelial Cells 6-9(A) Not Present /hpf 04/11/2025 2:39 PM EST [facility] Mucus Present(A ) Not Present /hpf 04/11/2025 2:39 PM [facility] Bacteria 3+(A) Negative /hpf 04/11/2025 2:39 PM [facility] WBC Clumps Present(A ) Not Present /hpf 04/11/2025 2:39 PM [facility] Hyaline Cast >100(A) 0 - 2 /lpf 04/11/2025 2:39 PM [facility] Amorphous Urate/Phosphat e crystals Present(A ) Not Present /hpf 04/11/2025 2:39 PM EST [facility] Budding Yeast Present(A ) Not Present /hpf 04/11/2025 2:39 PM EST [facility] Urine (Urine, Voided) Non-Blood Collection / Unknown 04/11/2025 12:55 PM EST 04/11/2025 1:14 PM EST Alia Vail DNP LAB URINE ORDERABLES Final Result Performing Organization Address City/[facility]/ZIP Co de Phone Number [address] [address] * (ABNORMAL) DIFFERENTIAL, MANUAL (SYSMEX) (04/11/2025 5:45 AM EST) Neutrophils 70.1 % 04/11/2025 8:30 AM EST [facility] Bands 1.7 % 04/11/2025 8:30 AM EST [facility] Lymphocytes 10.3 % 04/11/2025 8:30 AM [facility] Monocytes 9.4 % 04/11/2025 8:30 AM [facility] Eosinophils 0.8 % 04/11/2025 8:30 AM EST [facility] Basophils 0.8 % 04/11/2025 8:30 AM [facility] Metamyelocytes 4.3 % 04/11/2025 8:30 AM [facility] Myelocytes 2.6 % 04/11/2025 8:30 AM [facility] Absolute Neutrophils 10.70(H) 1.92 - 7.60 K/uL 04/11/2025 8:30 AM [facility] Absolute Lymphocytes 1.53 0.72 - 4.10 K/uL 04/11/2025 8:30 AM [facility] Absolute Monocytes 1.40(H) 0.16 - 1.10 K/uL 04/11/2025 8:30 AM [facility] Absolute Eosinophils 0.12 0.00 - 0.50 K/uL 04/11/2025 8:30 AM [facility] Absolute Basophils 0.12 0.00 - 0.15 K/uL 04/11/2025 8:30 AM [facility] Absolute Metamyelocytes 0.64(H) <=0.00 K/uL 04/11/2025 8:30 AM [facility] Absolute Myelocytes 0.39(H) <=0.00 K/uL 04/11/2025 8:30 AM [facility] Diff Type Manual 04/11/2025 8:30 AM [facility] Blood (Blood) Catheter/Line / Unknown 04/11/2025 5:45 AM EST 04/11/2025 6:39 AM EST us Virginia Gonsaels MD LAB BLOOD BKR ORDERABLES Final R esult [facility] [address] [place] [address] * (ABNORMAL) CBC and Differential (04/11/2025 5:45 AM [facility]) WBC 14.90(H) 4.00 - 11.00 K/uL 04/11/2025 8:30 AM [facility] RBC 2.89(L) 4.00 - 5.20 M/uL 04/11/2025 8:30 AM [facility] Hemoglobin 8.3(L) 12.0 - 16.0 g/dL 04/11/2025 8:30 AM [facility] Hematocrit 26.9(L) 36.0 - 46.0 % 04/11/2025 8:30 AM [facility] MCV 93.1 80.0 - 100.0 fL 04/11/2025 8:30 AM [facility] MCH 28.7 27.0 - 31.0 pg 04/11/2025 8:30 AM [facility] MCHC 30.9(L) 32.0 - 36.0 g/dL 04/11/2025 8:30 AM [facility] MPV 9.7 8.4 - 12.0 fL 04/11/2025 8:30 AM [facility] RDW-CV 17.1(H) 11.5 - 14.5 % 04/11/2025 8:30 AM [facility] PLT 394 150 - 450 K/uL 04/11/2025 8:30 AM [facility] NRBC 0.0 <=0.0 /100 WBCs 04/11/2025 8:30 AM [facility] Absolute NRBC 0.00 <=0.00 K cells/uL 04/11/2025 8:30 AM [facility] Absolute Neutrophils 8.87(H) 1.92 - 7.60 K/uL 04/11/2025 8:30 AM [facility] Comment:Automated cell count . Manual ANC may differ if performed. Diff Type Manual 04/11/2025 8:30 AM [facility] Blood (Blood) Catheter/Line / Unknown 04/11/2025 5:45 AM EST 04/11/2025 6:39 AM EST us Virginia Gonsales MD LAB BLOOD BKR ORDERABLES Final R esult Performing Organization Address City/[facility]/ZIP Co de Phone Number [address] [address] * Red Blood Cell (RBC) Morphology (04/11/2025 5:45 AM EST) RBC Morphology Reviewed 04/11/2025 8:30 AM EST [facility] Dohle Bodies present 04/11/2025 8:30 AM EST [facility] Giant/Large Platelets present 04/11/2025 8:30 AM EST [facility] Blood (Blood) Catheter/Line / Unknown 04/11/2025 5:45 AM EST 04/11/2025 6:39 AM EST us Virginia Gonsales MD LAB BLOOD BKR ORDERABLES Final R esult Performing Organization Address [facility] Co de Phone Number [address] [address] * (ABNORMAL) Erythrocyte Sedimentation Rate (ESR) (04/11/2025 5:45 AM EST) Only the most recent of2 resultswithin the time period is included. ESR 65(H) 0 - 30 mm/h 04/11/2025 7:32 AM EST [facility] Blood (Blood) Catheter/Line / Unknown 04/11/2025 5:45 AM EST 04/11/2025 6:39 AM EST us Alia Vail DNP LAB BLOOD BKR ORDERABLES Fi nal Result Performing Organization Address City/[facility]/ZIP Co de Phone Number [address] [address] * (ABNORMAL) C-Reactive Protein (CRP) (04/11/2025 5:45 AM EST) Only the most recent of2 resultswithin the time period is included. C Reactive Protein 147.4(H) <10.0 mg/L 04/11/2025 7:26 AM EST [facility] Comment:NOTE: This reference range is for the evaluation of inflammation. Order CRP, High Sensitivity for cardiac risk status evaluation. Blood (Blood) Catheter/Line / Unknown 04/11/2025 5:45 AM EST 04/11/2025 6:40 AM EST Alia Vail DNP LAB BLOOD BKR ORDERABLES Fi nal Result Performing Organization Address [facility] Co de Phone Number [address] [address] * CLOSTRIDIOIDES (CLOSTRIDIUM) DIFFICILE, PCR (04/10/2025 5:32 PM EST) Only the most recent of3 resultswithin the time period is included. C. difficile PCR Negative Negative 04/10/2025 9:10 PM EST [facility] Comment:Negative for C. diff icile Stool (Per Rectum) 04/10/2025 5:32 PM EST 04/10/2025 6:45 PM EST Alia Vail DNP LAB BODY FLUIDS AND STOOL O RDERABLES Final Result Performing Organization Address [facility] Co de Phone Number [address] [address] * Type and Screen (Conversion) (04/10/2025 8:45 AM EST) Hold Tube Completed? Yes 04/10/2025 8:55 AM EST [facility] Blood (Blood) 04/10/2025 8:4 5 AM EST 04/10/2025 8:45 AM EST Ishmael Sanchez MD, MPH LAB BLOOD BANK TEST ORDERAB LES Final Result Performing Organization Address [facility] Co de Phone Number [facility] [address] [place] [phone] * (ABNORMAL) POCT Glucose (04/09/2025 8:40 PM EDT) Only the most recent of133 resultswithin the time period is included. Glucose, POCT 241(H) 70 - 110 mg/dL [facility] 04/09/2025 8:40 PM EDT 04/09/2025 8:42 PM EDT us Virginia Gonsales MD POINT OF CARE TEST ORDERABLES Fi nal Result [address] [address] * Type and Screen (ABO,Rh,Antibody Screen) (04/09/2025 5:53 AM EDT) Only the most recent of8 resultswithin the time period is included. Expiration Date of Sample 04/12/2025 11:59 PM [facility] Antibody Screen Negative 04/09/2025 8:01 AM EDT [facility] Resulting Agency [facility] ABO A 04/09/2025 8:07 AM EDT [facility] Rh Positive 04/09/2025 8:07 AM EDT [facility] Blood 04/09/2025 5:53 AM EDT 04/09/2025 6:07 AM EDT us Nallely An PA-C LAB BLOOD BANK TEST ORDERA BLES Final Result Performing Organization Address City/[facility] Co de Phone Number [address] [address] * Phosphorus (04/09/2025 5:40 AM EDT) Only the most recent of29 resultswithin the time period is included. PHOSPHORUS 3.7 2.6 - 4.5 mg/dL [facility] Blood 04/09/2025 5:40 AM EDT 04/09/2025 6:45 AM EDT us Lynn Gaines PA-C LAB BLOOD BKR ORDERAB LES Final Result [address] [address] * (ABNORMAL) PT-INR (04/07/2025 6:25 AM EDT) Only the most recent of31 resultswithin the time period is included. PT 17.8(H) 10.0 - 13.0 sec [facility] INR 1.6(H) 0.9 - 1.1 [facility] Blood 04/07/2025 6:25 AM EDT 04/07/2025 7:25 AM EDT us Lynn Gaines PA-C LAB BLOOD BKR ORDERAB LES Final Result [facility] [address] [place] [address] * XR Chest Portable (04/06/2025 10:43 AM EDT) Anatomical Region Laterality Modality Chest Computed Radiogr aphy 04/06/2025 12:1 3 PM EDT Impressions 04/06/2025 2:48 PM EDT New patchy left apical opacity suspicious for pneumonia. Left basal subsegmental atelectasis. ATTESTATION: I, Dr. Jose Luis Martínez as teaching physician, have reviewed the images for this case and if necessary edited the report originally created by Aureliano Pacheco. Narrative 04/06/2025 2:48 PM EDT XR CHEST PORTABLE Referring clinician's provided indication for this examination in [facility]: Cough; Cough, persistent COMPARISON: XR CHEST PORTABLE FINDINGS: Devices/Tubes/Lines: None. Lungs: New patchy left apical opacity. Subsegmental left basilar atelectasis. Pleura: No pleural effusion or pneumothorax. Heart/Mediastinum: Borderline-enlarged cardiac silhouette. Bones/Soft Tissues: No significant skeletal abnormality. Procedure Note Jose Luis Martínez MD - 04/06/2025 XR CHEST PORTABLE Referring clinician's provided indication for this examination in [facility]:Cough; Cough, persistent COMPARISON: XR CHEST PORTABLE FINDINGS: Devices/Tubes/Lines: None. Lungs: New patchy left apical opacity. Subsegmental left basilaratelectasis. Pleura: No pleural effusion or pneumothorax. Heart/Mediastinum: Borderline-enlarged cardiac silhouette. Bones/Soft Tissues: No significant skeletal abnormality. IMPRESSION: New patchy left apical opacity suspicious for pneumonia. Left basal subsegmental atelectasis. ATTESTATION: I, Dr. Jose Luis Martínez as teaching physician, have reviewedthe images for this case and if necessary edited the report originallycreated by Aureliano Pacheco. us Nallely An PA-C IMG XR CHEST Final Resu lt * Prepare RBC, 1 Units (04/06/2025 7:58 AM EDT) Only the most recent of3 resultswithin the time period is included. Product Code [id number] 04/06/2025 7:58 AM EDT [facility] Unit Number [id number] 04/06/20 7:58 AM EDT [facility] Crossmatch Interpretation Compatible 04/04/2025 3:24 PM EDT [facility] Product Status No Longer Ready 04/06 7:58 AM EDT [facility] ABO/Rh of Unit ONEG 04/06/2025 7:58 AM EDT [facility] Expiration Date/Time [id number] 04/06/2025 7:58 AM EDT [facility] Unit Barcode 04/06/2025 7:58 AM EDT [facility] 04/02/2025 6:3 1 AM EDT us Anisa Tsang MEDICATION ASSISTANT BLOOD BANK PRODUCT ORDERABLES F inal Result Performing Organization Address [facility] Co de Phone Number [address] [address] * (ABNORMAL) POCT Activated Clotting Time (04/05/2025 1:08 PM EDT) ACTIVATED CLOT TIME 178(H) 90 - 130 sec [facility] 04/05/2025 1:08 PM EDT 04/05/2025 1:14 PM EDT us Janusz Rosas MD, MPH LAB POCT ENTER/EDIT ORDERAB LES Final Result Performing Organization Address City/[facility] Co de Phone Number [address] [address] * CORONARY ARTERIOGRAM WITH POSSIBLE INTERVENTION, RIGHT HEART CATHETERIZATION (04/05/2025 1:07 PM EDT) Anatomical Region Laterality Modality X-Ray Angiograph y 04/05/2025 1:07 PM EDT Narrative 04/13/2025 7:50 AM EST Cardiac Catheterization Report [facility] CARDIAC CATHETERIZATION LABORATORY FINAL REPORT PATIENT NAME:EVERTON COBURN AGE: 65 CASE DATE/TIME: 04/05/2025 12:42 PM DESTINATION: Post side for TRB removal DIAGNOSTIC ATTENDING MD: Baron Shabazz MD DIAGNOSTIC FELLOW MD: Jose Luis Doss MD PRELIMINARY DIAGNOSES: Heart failure, unspecified Bradycardia, unspecified FINAL DIAGNOSES: Heart failure, unspecified, Supraventricular tachycardia, Acute on chronic diastolic (congestive) heart failure, INDICATION(S) FOR PRIMARY, SECONDARY PROCEDURE: Supraventricular Tachycardia, HFpEF DIAGNOSTIC SUMMARY: 1. RHC - Right IJ access was obtained under ultrasound-guidance and a 7F introducer sheath was advanced into position using a modified Seldinger technique. - 7Fr balloon-tipped PA catheter advanced and hemodynamic measurements obtained. - Elevated right and left filling pressures. - Moderate pulmonary hypertension. - Normal cardiac output and index. - At the conclusion of the procedure, the catheter and introducer were removed and pressure was applied to achieve hemostasis. Condition:Rest Thermodilution Cardiac Output:4.07 l/min; CI:2.42 l/min/m2 RA (m):17 RV (s/edp):37/17 PA (s/d/m):40/22/30 PW (m/v-wave):20/30 AO (s/d/m):97/62/76 2. Coronary angiogram: - Right radial artery access was obtained under ultrasound-guidance and a 6F Slender introducer sheath was advanced into position using a modified Seldinger technique. - Pre-shaped coronary diagnostic catheters were then advanced over a 0.035 wire into the aortic root. - A 5Fr JR4 diagnostic catheter was used to engage the right coronary artery and a 5F JL3.5 diagnostic catheter was used to engage the left main coronary artery. - Angiographic images were then obtained in multiple projections. * Results: - Right dominant circulation. - LMCA: Large sized vessel. Bifurcates into the LAD and LCx. Minimal luminal irregularities. - LAD: Medium sized vessel. Gives rise to 2 medium sized diagonal branches. Minimal luminal irregularities. - LCx: Medium sized vessel. Gives rise to 2 medium sized obtuse marginal branches. Minimal luminal irregularities. - RCA: Medium sized vessel. Proximal 50% disease. Diffuse mild disease otherwise with moderate calcification. PATIENT CONDITION, PLAN AND RECOMMENDATIONS: - Moderate CAD without obstructive disease. Elevated filling pressures. - Maximize medical therapy. - Return to floor for further management. PROCEDURES: Ultrasound guidance for vascular access Right Heart Catheterization including oximetry and CO measurement Coronary Angiogram Only including S&I Moderate sedation provided by the same physician performing procedure, requiring the presence of an independent trained observer to assist in the monitoring of the patients LOC and physiol status; initial 15 minutes, patient 5 years or older Moderate sedation provided by the same physician performing procedure, requiring the presence of an independent trained observer to assist in the monitoring of the patients LOC and physiol status; initial 15 minutes, patient 5 years or older DIAGNOSTIC TECHNIQUE: Under ultrasound guidance and Lidocaine 2% local anesthesia a 7 F non-tunneled central venous catheter was placed in the right internal jugular vein using a 7F micropuncture access kit and maintained usual fashion. A 7 F balloon tipped catheter was introduced via the venous sheath, the balloon was inflated and catheter was advanced through the right heart chambers into the pulmonary capillary wedge position. Right sided pressures were obtained and recorded. Cardiac output was measured using thermodilution. Following the procedure, the sheath was removed. Under Lidocaine 2% local anesthesia a 5F introducer was placed in the right radial artery using modified Seldinger technique. Selective coronary arteriography was then performed using a 5 F Wendy left number 3.5 catheter to engage the left coronary artery and a 5 F Wendy right number 4 catheter to engage the right coronary artery. Right and left coronary arteriography were performed in multiple views by hand injections of Omnipaque 350. Following the procedure, the sheath was removed. HEMODYNAMICS: STATE: Rest Thermodilution Cardiac Output (l/min):4.07; CI (l/min/m2):2.42 PVR (dyn*s/cm5):196.6 Walker Units:2.46 SVR (dyn*s/cm5):1159.7 Walker Units:14.5 ; Index:1950.5 PVR/SVR Ratio:0.17 Heart rate (bpm):94 PRESSURES(mmHg): RA 19 / 22 / 17 RV 37 / 10 / 17 PA 40 / 22 / 30 PCW AO 97 / 62 / 76 CORONARY ANATOMY FINDINGS: Dominance: Right Left Main: The left main coronary artery originates from the left sinus of Valsalva. It is large sized and medium length vessel. Left main bifurcates and gives origin to Left Anterior Descending and Left Circumflex coronary arteries. Left main coronary artery contains minimal irregularities. LAD: The left anterior descending coronary artery originates from the left main. It is medium sized vessel reaching the apex of the heart. It gives origin to 2 moderate sized diagonal arteries. Left anterior descending coronary artery contains minimal irregularities. Left Circumflex: The left circumflex coronary artery originates from the left main. It is medium sized vessel of moderate length. It gives origin to 2 moderate sized obtuse marginal arteries. Left circumflex coronary artery contains minimal irregularities. RCA: RCA is moderate sized vessel. It originates from the right sinus of Valsalva. The Proximal RCA has a focal 50 % stenosis . EQUIPMENT: Terumo, [place] Precision access system, Introducer Sheath, 7F, 10 [facility], [place] Catheter, [place] Catheter, 7F, 0 Terumo, 5F Slender, Transradial Access Kit, 5F, 10 Cordis, INFINITI JR 4, Diagnostic Catheter, 4F, 100 Cordis, INFINITI JL 4.0, Diagnostic Catheter, 4F, 100 Burden, Versacore MOD J, Peripheral Guidewire, 175 [employer], JL 3.5, Diagnostic Catheter, 5F, 100 Terumo, TR Band -- Regular, Hemostasis Device, 0 Terumo, 5F Slender, Transradial Access Kit, 5F, 10 Terumo, [place] Precision access system, Introducer Sheath, 7F, 10 ACTIVATED CLOTTING TIME: Time of test Sec 04/05/2025 1:08:58 PM 178 04/05/2025 1:08:58 PM 178 MEDICATIONS: LIDOCAINE HCL 20 MG/ML (2 %) INJECTION SOLUTION : 5 ml Subcutaneous LIDOCAINE HCL 20 MG/ML (2 %) INJECTION SOLUTION : 2 ml Subcutaneous Comment:R Wrist MIDAZOLAM (PF) 1 MG/ML INJECTION SOLUTION : 0.5 mg Intravenous FENTANYL (PF) 50 MCG/ML INJECTION SOLUTION : 50 mcg Intravenous FENTANYL (PF) 50 MCG/ML INJECTION SOLUTION : 25 mcg Intravenous FENTANYL (PF) 50 MCG/ML INJECTION SOLUTION : 25 mcg Intravenous VERAPAMIL 2.5 MG/ML INTRAVENOUS SOLUTION : 5 mg Intra-Arterial HEPARIN (PORCINE) 1,000 UNIT/ML INJECTION SOLUTION : 2000 units Intra-Arterial DICLOFENAC 1 % TOPICAL GEL : 2 g Topical CASE DURATION: 24 minutes VASCULAR ACCESS: Routine CONTRAST Volume(ml) Omnipaque 350 40 ARTERIAL ACCESS SITE: radial. ANESTHETIC: Local and conscious sedation X-RAY DOSE: Fluro Time: 5 min . Kerma Area Product: 9 (Gy.cm2) Reference Air Kerma: 84.6 (mGy) COMPLICATIONS: none The procedural team has confirmed that the Time-Out has occurred. Anesthetic: Local and conscious sedation Estimated Blood loss: <50 cc Specimens: None Procedural findings were communicated to: MD Baron Melendez MD was personally present during the entire procedure. I was present from the first injection of medication for sedation and continuously for the administration and monitoring of sedation for 47 minutes. The sedation level was moderate. The patients post-sedation status at the end of the procedure was stable. EMERGENCY CONTACTS: Baron Shabazz MD Pager: [phone] This report has been electronically signed by Dr. Baron Shabazz MD, Date: 04/13/2025 7:50:51 AM. This is a Final Report. Preliminary report was initially submitted on 04/07/2025 3:34:16 PM by Baron Shabazz MD. Reference Ranges: All Hemodynamics pressure measurements are in mm Hg Oxygen saturation - Arterial: 90-100% - Mixed venous: 60-80% ACT - 170-230 sec for patients on G2b-3a inhibitors - 200-240 sec for patients off G2b-3a inhibitors Finger stick glucose - Adult fastin-140 mg/dl - Non-fastin-200 mg/dl - Critical values: <40 or >500 mg/dl Procedure Note Baron Shabazz MD - 04/13/2025 Cardiac Catheterization Report [facility] FINAL REPORT PATIENT NAME:EVERTON COBURN AGE: 65 CASE DATE/TIME: 04/05/2025 12:42 PM DESTINATION: Post side for TRB removal DIAGNOSTIC ATTENDING MD: Baron Shabazz MD DIAGNOSTIC FELLOW MD: Jose Luis Doss MD PRELIMINARY DIAGNOSES: Heart failure, unspecified Bradycardia, unspecified FINAL DIAGNOSES: Heart failure, unspecified, Supraventricular tachycardia, Acute on chronicdiastolic (congestive) heart failure, INDICATION(S) FOR PRIMARY, SECONDARY PROCEDURE: Supraventricular Tachycardia, HFpEF DIAGNOSTIC SUMMARY: 1. RHC - Right IJ access was obtained under ultrasound-guidance and a 7F introducer sheath was advanced into position using a modified Seldinger technique. - 7Fr balloon-tipped PA catheter advanced and hemodynamic measurements obtained. - Elevated right and left filling pressures. - Moderate pulmonary hypertension. - Normal cardiac output and index. - At the conclusion of the procedure, the catheter and introducer were removed and pressure was applied to achieve hemostasis. Condition:Rest Thermodilution Cardiac Output:4.07 l/min; CI:2.42 l/min/m2 RA (m):17 RV (s/edp):37/17 PA (s/d/m):40/22/30 PW (m/v-wave):20/30 AO (s/d/m):97/62/76 2. Coronary angiogram: - Right radial artery access was obtained under ultrasound-guidance jose 6F Slender introducer sheath was advanced into position using a modified Seldinger technique. - Pre-shaped coronary diagnostic catheters were then advanced over a 0.035 wire into the aortic root. - A 5Fr JR4 diagnostic catheter was used to engage the right coronary artery and a 5F JL3.5 diagnostic catheter was used to engage the leftmain coronary artery. - Angiographic images were then obtained in multiple projections. * Results: - Right dominant circulation. - LMCA: Large sized vessel. Bifurcates into the LAD and LCx. Minimal luminal irregularities. - LAD: Medium sized vessel. Gives rise to 2 medium sized diagonal branches. Minimal luminal irregularities. - LCx: Medium sized vessel. Gives rise to 2 medium sized obtuse marginal branches. Minimal luminal irregularities. - RCA: Medium sized vessel. Proximal 50% disease. Diffuse mild disease otherwise with moderate calcification. PATIENT CONDITION, PLAN AND RECOMMENDATIONS: - Moderate CAD without obstructive disease. Elevated filling pressures. - Maximize medical therapy. - Return to floor for further management. PROCEDURES: Ultrasound guidance for vascular access Right Heart Catheterization including oximetry and CO measurement Coronary Angiogram Only including S&I Moderate sedation provided by the same physician performing procedure, requiring the presence of an independent trained observer to assist inthe monitoring of the patients LOC and physiol status; initial 15 minutes,patient 5 years or older Moderate sedation provided by the same physician performing procedure, requiring the presence of an independent trained observer to assist inthe monitoring of the patients LOC and physiol status; initial 15 minutes,patient 5 years or older DIAGNOSTIC TECHNIQUE: Under ultrasound guidance and Lidocaine 2% local anesthesia a 7 F non-tunneled central venous catheter was placed in the right internal jugular vein using a 7F micropuncture access kit and maintained usual fashion. A 7 F balloon tipped catheter was introduced via the venous sheath, the balloon was inflated and catheter was advanced through the right heart chambers into the pulmonary capillary wedge position. Right sided pressures were obtained and recorded. Cardiac output was measured using thermodilution. Following the procedure, the sheath was removed. Under Lidocaine 2% local anesthesia a 5F introducer was placed in the right radial artery using modified Seldinger technique. Selectivecoronary arteriography was then performed using a 5 F Wendy left number 3.5 catheter to engage the left coronary artery and a 5 F Wendy rightnumber 4 catheter to engage the right coronary artery. Right and left coronary arteriography were performed in multiple views by hand injections of Omnipaque 350. Following the procedure, the sheath was removed. HEMODYNAMICS: STATE: Rest Thermodilution Cardiac Output (l/min):4.07; CI (l/min/m2):2.42 PVR (dyn*s/cm5):196.6 Walker Units:2.46 SVR (dyn*s/cm5):1159.7 Walker Units:14.5 ; Index:1950.5 PVR/SVR Ratio:0.17 Heart rate (bpm):94 PRESSURES(mmHg): RA 19 / 22 / 17 RV 37 / 10 / 17 PA PCW AO 97 / 62 / 76 CORONARY ANATOMY FINDINGS: Dominance: Right Left Main: The left main coronary artery originates from the left sinus of Valsalva.It is large sized and medium length vessel. Left main bifurcates and givesorigin to Left Anterior Descending and Left Circumflex coronary arteries. Leftmain coronary artery contains minimal irregularities. LAD: The left anterior descending coronary artery originates from the leftmain. It is medium sized vessel reaching the apex of the heart. It gives origin to2 moderate sized diagonal arteries. Left anterior descending coronaryartery contains minimal irregularities. Left Circumflex: The left circumflex coronary artery originates from the left main. It ismedium sized vessel of moderate length. It gives origin to 2 moderate sizedobtuse marginal arteries. Left circumflex coronary artery contains minimal irregularities. RCA: RCA is moderate sized vessel. It originates from the right sinus ofValsalva. The Proximal RCA has a focal 50 % stenosis . EQUIPMENT: Terumo, [place] Precision access system, Introducer Sheath, 7F, 10 [facility], [place] Catheter, [place] Catheter, 7F, 0 Terumo, 5F Slender, Transradial Access Kit, 5F, 10 Cordis, INFINITI JR 4, Diagnostic Catheter, 4F, 100 Cordis, INFINITI JL 4.0, Diagnostic Catheter, 4F, 100 Burden, Versacore MOD J, Peripheral Guidewire, 175 [employer], JL 3.5, Diagnostic Catheter, 5F, 100 Terumo, TR Band -- Regular, Hemostasis Device, 0 Terumo, 5F Slender, Transradial Access Kit, 5F, 10 Terumo, [place] Precision access system, Introducer Sheath, 7F, 10 ACTIVATED CLOTTING TIME: Time of test Sec 04/05/2025 1:08:58 PM 178 04/05/2025 1:08:58 PM 178 MEDICATIONS: LIDOCAINE HCL 20 MG/ML (2 %) INJECTION SOLUTION : 5 ml Subcutaneous LIDOCAINE HCL 20 MG/ML (2 %) INJECTION SOLUTION : 2 ml Subcutaneous Comment:R Wrist MIDAZOLAM (PF) 1 MG/ML INJECTION SOLUTION : 0.5 mg Intravenous FENTANYL (PF) 50 MCG/ML INJECTION SOLUTION : 50 mcg Intravenous FENTANYL (PF) 50 MCG/ML INJECTION SOLUTION : 25 mcg Intravenous FENTANYL (PF) 50 MCG/ML INJECTION SOLUTION : 25 mcg Intravenous VERAPAMIL 2.5 MG/ML INTRAVENOUS SOLUTION : 5 mg Intra-Arterial HEPARIN (PORCINE) 1,000 UNIT/ML INJECTION SOLUTION : 2000 units Intra-Arterial DICLOFENAC 1 % TOPICAL GEL : 2 g Topical CASE DURATION: 24 minutes VASCULAR ACCESS: Routine CONTRAST Volume(ml) Omnipaque 350 40 ARTERIAL ACCESS SITE: radial. ANESTHETIC: Local and conscious sedation X-RAY DOSE: Fluro Time: 5 min . Kerma Area Product: 9 (Gy.cm2) Reference Air Kerma: 84.6 (mGy) COMPLICATIONS: none The procedural team has confirmed that the Time-Out has occurred. Anesthetic: Local and conscious sedation Estimated Blood loss: <50 cc Specimens: None Procedural findings were communicated to: MD Baron Melendez MD was personally present during the entire procedure. I was present from the first injection of medication for sedation and continuously for the administration and monitoring of sedation for 47 minutes. The sedation level was moderate. The patients post-sedation status at the end of the procedure was stable. EMERGENCY CONTACTS: Baron Shabazz MD Pager: [phone] This report has been electronically signed by Dr. Baron Shabazz MD,Date: 04/13/2025 7:50:51 AM. This is a Final Report. Preliminary report was initially submitted on04/07/2025 3:34:16 PM by Baron Shabazz MD. Reference Ranges: All Hemodynamics pressure measurements are in mm Hg Oxygen saturation - Arterial: 90-100% - Mixed venous: 60-80% ACT - 170-230 sec for patients on G2b-3a inhibitors - 200-240 sec for patients off G2b-3a inhibitors Finger stick glucose - Adult fastin-140 mg/dl - Non-fastin-200 mg/dl - Critical values: <40 or >500 mg/dl Kathy Jones MEDICATION ASSISTANT CV CARDIAC CATH ORDERABLES F inal Result * (ABNORMAL) PTT (04/05/2025 11:25 AM EDT) Only the most recent of17 resultswithin the time period is included. APTT 98.0(H) 24.0 - 37.5 sec [facility] Comment:Check MAR for the ta rget range that is ordered for your patient. Blood 04/05/2025 11:2 5 AM EDT 04/05/2025 11:32 AM EDT Alyson Goode MD LAB BLOOD BKR ORDERABLES Final R esult [address] [address] * CT HEAD WITHOUT CONTRAST (04/04/2025 9:26 PM EDT) Anatomical Region Laterality Modality Head Computed Tomogra phy 04/04/2025 9:48 PM EDT Impressions 04/04/2025 10:26 PM EDT 1. Further slight interval decrease in size of previously noted small bilateral subdural collections. The left subdural collection is no longer discretely measurable. 2. No new acute intracranial hemorrhage. ATTESTATION: I, Andi Mcfarland as teaching physician, have reviewed the images for this case and if necessary edited the report originally created by Jeremías Strickland. Narrative 04/04/2025 10:[address] HEAD WITHOUT CONTRAST Referring clinician's provided indication for this examination in Epic: * Subdural hematoma TECHNIQUE: Multidetector-row CT of the head was performed without intravenous contrast using tailored dose modulation techniques. Images were reconstructed in the axial, coronal, and sagittal planes. COMPARISON: CT HEAD WITHOUT CONTRAST FINDINGS: Brain Parenchyma: No midline shift, mass effect, parenchymal hemorrhage, or evidence of acute territorial infarct. There are areas of hypodensity in the periventricular white matter, likely a manifestation of chronic small vessel disease. 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 Ventricular System and Extra-Axial Spaces: The ventricles and sulci are prominent. Minimal decrease in size of the previously noted hypoattenuating right extra- axial collection, measuring approximately 2 mm in thickness, previously 3 mm. Previously noted left extra-axial collection is less conspicuous and no longer measurable. Basal cisterns are patent. No hydrocephalus. Osseous and Extracranial Structures: Hyperostosis frontalis. No significant paranasal sinus disease. Right lens replacement. Procedure Note Andi Mcfarland MD - 04/04/2025 CT HEAD WITHOUT CONTRAST Referring clinician's provided indication for this examination in Epic: *Subdural hematoma TECHNIQUE: Multidetector-row CT of the head was performed withoutintravenous contrast using tailored dose modulation techniques. Imageswere reconstructed in the axial, coronal, and sagittal planes. COMPARISON: CT HEAD WITHOUT CONTRAST FINDINGS: Brain Parenchyma: No midline shift, mass effect, parenchymal hemorrhage,or evidence of acute territorial infarct. There are areas of hypodensityin the periventricular white matter, likely a manifestation of chronicsmall vessel disease. Unchanged chronic infarction in the left inferiorfrontal gyrus. Ventricular System and Extra-Axial Spaces: The ventricles and sulci areprominent. Minimal decrease in size of the previously notedhypoattenuating right extra- axial collection, measuring approximately 2 mmin thickness, previously 3 mm. Previously noted left extra-axialcollection is less conspicuous and no longer measurable. Basal cisternsare patent. No hydrocephalus. Osseous and Extracranial Structures: Hyperostosis frontalis. Nosignificant paranasal sinus disease. Right lens replacement. IMPRESSION: 1. Further slight interval decrease in size of previously noted smallbilateral subdural collections. The left subdural collection is no longerdiscretely measurable. 2. No new acute intracranial hemorrhage. ATTESTATION: I, Andi Mcfarland as teaching physician, have reviewed theimages for this case and if necessary edited the report originally createdby Jeremías Strickland. us Anisa Tsang CNP IMG CT HEAD/NECK Final Result * Lactate (04/04/2025 4:02 AM EDT) Only the most recent of28 resultswithin the time period is included. LACTIC ACID (MMOL/L) 1.6 0.5 - 2.0 mmol/L [facility] Blood 04/04/2025 4:0 2 AM EDT 04/04/2025 4:14 AM EDT Alyson Goode MD LAB BLOOD BKR ORDERABLES Final R esult Performing Organization Address City/[facility] Co de Phone Number [address] [address] * Transfuse RBC (04/03/2025 11:31 PM EDT) Only the most recent of2 resultswithin the time period is included. Anisa Tsang CNP NURSING TREATMENT ORDERABLES - BLOOD ADMIN Final Result Performing Organization Address [facility] de Phone Number [id number] * (ABNORMAL) Urine Sediment (04/03/2025 11:15 PM EDT) Only the most recent of4 resultswithin the time period is included. Pathologist [facility] RBC 3-5(A) 0 - 2 /hpf [facility] WBC >100(A) <10 /hpf [facility] SQUAMOUS CELLS Present(A ) None /hpf [facility] BLADDER CELLS 2+(A) None /hpf [facility] BACTERIA 1+(A) None /hpf [facility] HYALINE CAST 5-10(A) 0 - 2 /lpf [facility] YEAST Present(A ) None /hpf [facility] WBC CLUMPS Present(A ) None /hpf [facility] MUCUS Present(A ) None [facility] AMORPHOUS CRYSTALS Present(A ) None /hpf [facility] 04/03/2025 11:1 5 PM EDT 04/03/2025 11:31 PM EDT Anisa Tsang CNP URINE ORDERABLES Final Result Performing Organization Address [facility] Co de Phone Number [address] [address] * Blood Culture, Routine (04/03/2025 8:14 PM EDT) Only the most recent of8 resultswithin the time period is included. Special Requests INFORMATION TAKEN FROM SPECIMEN CONTAINER. 04/03/2025 9:39 PM EDT [facility] BLOOD CULTURE NO GROWTH 5 DAYS 04/08/2025 9:01 AM EDT [facility] Blood (Blood) 04/03/2025 8:1 4 PM EDT 04/03/2025 9:38 PM EDT Comment:LEFT~HAND us Anisa Tsang MEDICATION ASSISTANT LAB MICROBIOLOGY CULTURE ORDERA BLES Final Result [facility] [address] [place] [address] * CT HEAD WITHOUT CONTRAST (04/03/2025 8:04 PM EDT) Anatomical Region Laterality Modality Head Computed Tomogra phy 04/03/2025 8:16 PM EDT Impressions 04/03/2025 9:07 PM EDT 1. Slight interval decrease in size of the trace bilateral subdural collections. 2. No new intracranial hemorrhage. ATTESTATION: I, Dr. Jorge Flores as teaching physician, have reviewed the images for this case and if necessary edited the report originally created by Dave Encarnacion. Narrative 04/03/2025 9:[address] HEAD WITHOUT CONTRAST Referring clinician's provided indication for this examination in Epic: * Subdural hematoma TECHNIQUE: Multidetector-row CT of the head was performed without intravenous contrast using tailored dose modulation techniques. Images were reconstructed in the axial, coronal, and sagittal planes. COMPARISON: CT HEAD WITHOUT CONTRAST (most recent prior); CT HEAD WITHOUT CONTRAST (first described); CT HEAD WITHOUT CONTRAST (baseline study) FINDINGS: Brain Parenchyma: No midline shift, mass effect, parenchymal hemorrhage, or evidence of acute territorial infarct. There are faint areas of hypoattenuation in the periventricular white matter, likely a manifestation of chronic small vessel change. Ventricular System and Extra-Axial Spaces: Interval minimal decrease in size of the bilateral low attenuating subdural collections, now measuring up to 3 mm in the right and 2 mm on the left. No new extra-axial fluid collections. Basal cisterns are patent. No hydrocephalus. Atherosclerotic calcification of the bilateral vertebral arteries and the carotid siphons. Osseous and Extracranial Structures: There is hyperostosis frontalis. No significant paranasal sinus disease. Deviated nasal septum to the left. Right lens extraction. Procedure Note Jorge Flores MD - 04/03/2025 CT HEAD WITHOUT CONTRAST Referring clinician's provided indication for this examination in Epic: *Subdural hematoma TECHNIQUE: Multidetector-row CT of the head was performed withoutintravenous contrast using tailored dose modulation techniques. Imageswere reconstructed in the axial, coronal, and sagittal planes. COMPARISON: CT HEAD WITHOUT CONTRAST (most recent prior); CTHEAD WITHOUT CONTRAST (first described); CT HEAD WITHOUTCONTRAST (baseline study) FINDINGS: Brain Parenchyma: No midline shift, mass effect, parenchymal hemorrhage,or evidence of acute territorial infarct. There are faint areas ofhypoattenuation in the periventricular white matter, likely amanifestation of chronic small vessel change. Ventricular System and Extra-Axial Spaces: Interval minimal decrease insize of the bilateral low attenuating subdural collections, now measuringup to 3 mm in the right and 2 mm on the left. No new extra-axial fluidcollections. Basal cisterns are patent. No hydrocephalus. Atheroscleroticcalcification of the bilateral vertebral arteries and the carotidsiphons. Osseous and Extracranial Structures: There is hyperostosis frontalis. Nosignificant paranasal sinus disease. Deviated nasal septum to the left.Right lens extraction. IMPRESSION: 1. Slight interval decrease in size of the trace bilateral subduralcollections. 2. No new intracranial hemorrhage. ATTESTATION: I, Dr. Jorge Flores as teaching physician, have reviewedthe images for this case and if necessary edited the report originallycreated by Dave Encarnacion. Anisa Tsang CNP [facility] CT HEAD/NECK Final Result * (ABNORMAL) Venous blood gas (04/03/2025 7:40 PM EDT) Only the most recent of8 resultswithin the time period is included. FIO2 UNSPEC. FIO2/L min [facility] PH 7.46(H) 7.30 - 7.40 [facility] PCO2 31(L) 38 - 50 mm[Hg] [facility] PO2 58(H) 35 - 50 mm[Hg] [facility] Base Excess, unspecified NEG 0.0 - 3.0 mmol/L [facility] Comment:1.8NEG HCO3, unspecified 22(L) 24 - 30 mmol/L [facility] Blood 04/03/2025 7:40 PM EDT 04/03/2025 7:45 PM EDT us Anisa Tsang CNP LAB BLOOD BKR ORDERABLES Final Result [address] [address] * XR Chest Portable (04/03/2025 7:24 PM EDT) Anatomical Region Laterality Modality Chest Computed Radiogr aphy 04/04/2025 9:03 AM EDT Impressions 04/04/2025 9:05 AM EDT Faint linear opacities in the right lower lung may represent atelectasis or scarring. Superimposed aspiration/pneumonia cannot be excluded Narrative 04/04/2025 9:05 AM EDT XR CHEST PORTABLE Referring clinician's provided indication for this examination in [facility]: Infection COMPARISON: XR CHEST PORTABLE FINDINGS: Devices/Tubes/Lines: None. Lungs: There are faint linear opacities in the right lower lung. There is no pulmonary edema. Pleura: No pleural effusion or pneumothorax. Heart/Mediastinum: Unchanged in appearance. Bones/Soft Tissues: Unchanged Procedure Note Rose Larkin MD - 04/04/2025 XR CHEST PORTABLE Referring clinician's provided indication for this examination in [facility]:Infection COMPARISON: XR CHEST PORTABLE FINDINGS: Devices/Tubes/Lines: None. Lungs: There are faint linear opacities in the right lower lung. There isno pulmonary edema. Pleura: No pleural effusion or pneumothorax. Heart/Mediastinum: Unchanged in appearance. Bones/Soft Tissues: Unchanged IMPRESSION: Faint linear opacities in the right lower lung may represent atelectasisor scarring. Superimposed aspiration/pneumonia cannot be excluded us Anisa Tsang MEDICATION ASSISTANT IMG XR CHEST Final Result * (ABNORMAL) Anti-Xa (Lovenox) (04/03/2025 12:52 PM EDT) Only the most recent of2 resultswithin the time period is included. Pathologist [facility] Anti-Xa (Lovenox) 1.29(H) <1.00 IU/mL [facility] Comment: The therapeutic range for treatment of deep venous thrombosis with low molecular weight heparin using twice daily dosing measured by this Anti-Xa method on a specimen drawn 4 HOURS after low molecular weight heparin injection is 0.5 to 1.0 IU/mL. This range does not apply to any other anticoagulants. Lower results indicate lower levels of anticoagulation. Higher results indicate higher levels of anticoagulation. Note: Antithrombin III is not added in this assay. It is dependent on the patient's antithrombin III level. Rivaroxaban or apixaban, even at trough levels, are detected by this assay and can cause these results to be >2.0 IU/mL. Blood 04/03/2025 12:5 2 PM EDT 04/03/2025 1:06 PM EDT Anisa Tsang CNP LAB BLOOD BKR ORDERABLES Final Result [address] [address] * ECG 12-LEAD (04/01/2025 8:24 AM EDT) Only the most recent of15 resultswithin the time period is included. Systolic Blood Pressure [facility] Diastolic Blood Pressure [facility] Ventricular Rate EKG/MIN 113 BPM [facility] Atrial Rate 147 BPM [facility] NE Interval [facility] QRS Duration 90 ms [facility] QT [facility]val 276 ms [facility] QTC Interval 378 ms [facility] P [place] 253 degrees [facility] R Wave [place] 19 degrees [facility] T Wave [place] -75 degrees [facility] 04/01/2025 8:24 AM EDT 04/09/2025 1:58 AM EDT Narrative [facility] - 04/09/2025 1:58 AM EDT LOC: [id number] DX: ARRHYTHMIA REF: ISLAS LAUREN ATRIAL FIBRILLATION WITH RAPID VENTRICULAR RESPONSE BORDERLINE CRITERIA FOR LOW VOLTAGE NONSPECIFIC T WAVE ABNORMALITIES WHEN COMPARED WITH ECG OF 01-Apr-2025 08:23, NO SIGNIFICANT CHANGE us Lynn Islas PILLOW AGENT ECG ORDERABLES Final Result [facility] [place] * Lab Add On: differential (03/31/2025 7:50 AM EDT) Only the most recent of12 resultswithin the time period is included. TEST REQUESTED DIFFERENTIAL [facility] Comments (Chemistry) ADD ON COMPLETE. [facility] Comment:SEE ACCN:[id number] 03/31/2025 7:50 AM EDT 03/31/2025 8:05 AM EDT Lynn Islas PILLOW AGENT LAB BLOOD ORDERABLES Final Result Performing Organization Address City/[facility] Co de Phone Number [facility] [address] [place] [address] * (ABNORMAL) Differential (03/31/2025 6:00 AM EDT) Only the most recent of3 resultswithin the time period is included. DIFF METHOD Auto [facility] [facility] NEUTS 76.7(H) 48.0 - 76.0 % [facility] LYMPHS 14.1(L) 18.0 - 41.0 % [facility] MONOS 6.0 4.0 - 11.0 % [facility] EOS 2.1 0.0 - 5.0 % [facility] BASOS 0.4 0.0 - 1.5 % [facility] % IMMATURE GRANS 0.7 0.0 - 0.9 % [facility] ABSOLUTE NEUTS 8.56(H) 1.92 - 7.60 K/uL [facility] ABSOLUTE LYMPHS 1.57 0.72 - 4.10 K/uL [facility] ABSOLUTE MONOS 0.67 0.16 - 1.10 K/uL [facility] ABSOLUTE EOS 0.23 0.00 - 0.50 K/uL [facility] ABSOLUTE BASOS 0.04 0.00 - 0.15 K/uL [facility] ABS IMMATURE GRANS 0.08 0.00 - 0.09 K/uL [facility] 03/31/2025 6:00 AM EDT 03/31/2025 6:23 AM EDT us Danielle Luevano MEDICATION ASSISTANT LAB BLOOD ORDERABLES Final Res ult [facility] [address] [place] [address] * CT HEAD WITHOUT CONTRAST (03/31/2025 2:40 AM EDT) Anatomical Region Laterality Modality Head Computed Tomogra phy 03/31/2025 2:53 AM EDT Impressions 03/31/2025 3:59 AM EDT * Similar size and appearance of bilateral low-attenuation subdural collections measuring up to 4 mm. * No evidence of new hemorrhage. ATTESTATION: Sean Cleveland as teaching physician, have reviewed the images for this case and if necessary edited the report originally created by Aaron Prince. Narrative 03/31/2025 3:[address] HEAD WITHOUT CONTRAST Referring clinician's provided indication for this examination in Epic: * Subdural hematoma; hx of bilateral subdural now reporting worsening headache. TECHNIQUE: Multidetector-row CT of the head was performed without intravenous contrast using tailored dose modulation techniques. Images were reconstructed in the axial, coronal, and sagittal planes. COMPARISON: CT HEAD WITHOUT CONTRAST FINDINGS: Brain Parenchyma: No midline shift, mass effect, parenchymal hemorrhage, or evidence of acute territorial infarct. Ventricular System and Extra-Axial Spaces: Similar size and appearance of low-attenuation bilateral subdural collections measuring up to 4 mm bilaterally. Basal cisterns are patent. No hydrocephalus. Osseous and Extracranial Structures: Hyperostosis frontalis interna. No significant paranasal sinus disease. No orbital abnormality. No evidence of displacement. Procedure Note Sean Irwin MD - 03/31/2025 CT HEAD WITHOUT CONTRAST Referring clinician's provided indication for this examination in [facility]: *Subdural hematoma; hx of bilateral subdural now reporting worseningheadache. TECHNIQUE: Multidetector-row CT of the head was performed withoutintravenous contrast using tailored dose modulation techniques. Imageswere reconstructed in the axial, coronal, and sagittal planes. COMPARISON: CT HEAD WITHOUT CONTRAST FINDINGS: Brain Parenchyma: No midline shift, mass effect, parenchymal hemorrhage,or evidence of acute territorial infarct. Ventricular System and Extra-Axial Spaces: Similar size and appearance oflow-attenuation bilateral subdural collections measuring up to 4 mmbilaterally. Basal cisterns are patent. No hydrocephalus. Osseous and Extracranial Structures: Hyperostosis frontalis interna. Nosignificant paranasal sinus disease. No orbital abnormality. No evidenceof displacement. IMPRESSION: * Similar size and appearance of bilateral low-attenuation subduralcollections measuring up to 4 mm. * No evidence of new hemorrhage. ATTESTATION: ISean as teaching physician, have reviewed theimages for this case and if necessary edited the report originally createdby Aaron Prince. Segun Elizondo MD IMG CT HEAD/NECK Fi nal Result * XR Chest Portable (03/30/2025 7:08 PM EDT) Anatomical Region Laterality Modality Chest Computed Radiogr aphy 03/31/2025 8:25 AM EDT Impressions 03/31/2025 8:25 AM EDT Normal heart size and clear lungs Narrative 03/31/2025 8:25 AM EDT XR CHEST PORTABLE Referring clinician's provided indication for this examination in [facility]: Pain COMPARISON: XR CHEST PORTABLE FINDINGS: Devices/Tubes/Lines: None. Lungs: Normal. The lungs are clear. No focal consolidation or pulmonary edema. Pleura: Normal. No pleural effusion or pneumothorax. Heart/Mediastinum: Normal heart and mediastinum. Bones/Soft Tissues: Normal. No significant skeletal abnormality. Procedure Note Bella Barreto MD - 03/31/2025 XR CHEST PORTABLE Referring clinician's provided indication for this examination in [facility]:Pain COMPARISON: XR CHEST PORTABLE FINDINGS: Devices/Tubes/Lines: None. Lungs: Normal. The lungs are clear. No focal consolidation or pulmonaryedema. Pleura: Normal. No pleural effusion or pneumothorax. Heart/Mediastinum: Normal heart and mediastinum. Bones/Soft Tissues: Normal. No significant skeletal abnormality. IMPRESSION: Normal heart size and clear lungs Eloisa Pineda MEDICATION ASSISTANT IMG XR CHEST Fi nal Result * (ABNORMAL) Lipid panel (03/30/2025 6:05 AM EDT) Only the most recent of2 resultswithin the time period is included. HDL 20(L) 35 - 100 mg/dL [facility] CHOLESTEROL 67 <200 mg/dL [facility] TRIGLYCERIDES 66 40 - 150 mg/dL [facility] LDL 34(L) 50 - 129 mg/dL [facility] CARDIAC RISK RATIO 3.4 0.0 - 5.0 [facility] NON-HDL CHOLESTEROL 47 mg/dL [facility] Comment:Guidelines suggest a non-HDL cholesterol goal 30 mg/dL higher than the patient-specific LDL goal. 03/30/2025 6:05 AM EDT 03/30/2025 7:04 AM EDT Lynn Gaines PA-C LAB BLOOD BKR ORDERAB LES Final Result [facility] [address] [place] [address] * (ABNORMAL) CBC and differential (03/29/2025 6:00 AM EDT) Only the most recent of12 resultswithin the time period is included. WBC 10.50 4.00 - 11.00 K/uL [facility] RBC 2.72(L) 4.00 - 5.20 M/uL [facility] HGB 8.2(L) 12.0 - 16.0 g/dL [facility] HCT 26.7(L) 36.0 - 46.0 % [facility] PLT 174 150 - 450 K/uL [facility] MCV 98.2 80.0 - 100.0 fL [facility] MCH 30.1 27.0 - 31.0 pg [facility] MCHC 30.7(L) 32.0 - 36.0 g/dL [facility] RDW 17.6(H) 11.5 - 14.5 % [facility] MPV 11.3 8.4 - 12.0 fL [facility] NRBC 0.00 0.00 /100 WBCs [facility] ABSOLUTE NRBC 0.00 0.00 K/uL [facility] DIFF METHOD Manual [facility] TOTAL CELLS COUNTED 116 [facility] NEUTS 81.0(H) 48.0 - 76.0 % [facility] LYMPHS 9.5(L) 18.0 - 41.0 % [facility] MONOS 5.2 4.0 - 11.0 % [facility] EOS 2.6 0.0 - 5.0 % [facility] BASOS 1.7(H) 0.0 - 1.5 % [facility] ABSOLUTE NEUTS 8.51(H) 1.92 - 7.60 K/uL [facility] ABSOLUTE LYMPHS 1.00 0.72 - 4.10 K/uL [facility] ABSOLUTE MONOS 0.55 0.16 - 1.10 K/uL [facility] ABSOLUTE EOS 0.27 0.00 - 0.50 K/uL [facility] ABSOLUTE BASOS 0.18(H) 0.00 - 0.15 K/uL [facility] VIKASH CELLS Present(A) None [facility] POLYCHROME 1+(A) NORMAL [facility] SCHISTOCYTES 1+(A) None [facility] PLTS, giant Present [facility] Blood 03/29/2025 6:00 AM EDT 03/29/2025 6:40 AM EDT us Griselda Jarvis PA-C, MPH LAB BLOOD BKR ORDERABLES F inal Result [address] [address] * (ABNORMAL) NT-proBNP (03/29/2025 6:00 AM EDT) Only the most recent of5 resultswithin the time period is included. NT-PROBNP 4,331(H) 0 - 900 pg/mL [facility] Comment: Reference Range: Age <50 years: 0-450 pg/ml Age 50-75 years: 0-900 pg/ml Age >75 years: 0-1800 pg/ml Among patients with dyspnea, NT-proBNP is highly sensitive for the detection of acute congestive heart failure. In addition, a NT-proBNP <300 pg/ml effectively rules out acute congestive heart failure, with 99% negative predictive value. Knowledge of each individual patient's NT-proBNP range may be more useful than using similar cut-points for every patient. Marked elevations in NT-proBNP levels may be observed in states other than left ventricular congestive heart failure, including: acute coronary syndromes, right heart strain/failure (including pulmonary embolism and cor pulmonae), critical illness, renal failure, atrial fibrillation, as well as advanced age. Falsely low NT-proBNP in congestive heart failure patients may be observed with increasing body-mass index. 03/29/2025 6:00 AM EDT 03/29/2025 1:55 PM EDT us Danielle Luevano MEDICATION ASSISTANT LAB BLOOD BKR ORDERABLES Final Result [facility] [address] [place] [address] * TTE COMPREHENSIVE (03/28/2025 9:16 AM EDT) Body Surface Area 1.78 m2 Left Ventricle Internal Diameter End Diastole 48 37 - 52 mm Interventricular Septum Thickness 9 6 - 11 mm Aortic Sinus Diameter 32 <40 mm Height 158 cm Left Ventricle Internal Diameter End Systole 30 <35 mm Left Ventricular Posterior Wall Thickness 9 6 - 11 mm Ascending Aorta Diameter 30 <36 mm Weight 72.20 kg Raw LV EF% 61 % Left Atrium Dimension Anterior-Posterior 43 15 - 40 mm Left Ventricular Apical Contribution 10 Left Atrial Volume Index 47 16 - 34 mL/m2 Ejection Fraction 57 50 - 75 % Right Ventricle TAPSE 20 >=17 mm Right Ventricle Pulse Doppler S Wave 14.0 >=9.5 cm/s Relative Wall Thickness 0.38 0.22 - 0.42 Left Ventricle indexed to BSA 83.0 g/m2 Right Ventricle Basal Diameter 44 25 - 41 mm Left Atrial Volume 83 mL Left Atrial Volume Index by Height 53 mL/m Right Atrium Dimension Superior-Inferior 62 mm Right Atrium Index Superior-Inferior 35 19 - 30 mm/m2 Right Atrium Dimension Medial-Lateral 49 mm Right Atrium Dimension Medial-Lateral 28 13 - 25 mm/m2 Aortic Valve Sinus Index by BSA 18 mm/m2 Aorta Sinus Index by Height 2.03 cm/m Aorta Sinus CSA index by Height 5.09 cm2/m Ascending Aorta Index 17 mm/m2 Asc Aorta CSA Index by Height 4.47 cm2/m Ascending Aorta Index 17 mm Aortic Sinus Index 18 mm Ascending Aorta Diameter 17 mm Aortic Valve Sinus Index 1 18 19 - 27 mm AO ASC DIAM BSA INDEX 16.85 Right Atrium Dimension Medial-Lateral 28 mm/m2 Right Atrium Index Superior-Inferior 35 mm/m2 Tricuspid Valve Peak Velocity 2.7 m/s Right Ventricle to Right Atrium Pressure Gradient 29 mmHg Right Ventricle Peak Systolic Pressure (Assuming RAP 10) 39 mmHg MGB CV ECHO TV RVSP (ASSUMING RAP OF 5) 34 mmHg RVSP (Exclusive of RAP) 29 mmHg Mitral Valve Peak Gradient 9 mmHg Aortic Valve Peak Velocity 1.2 m/s Mitral Valve Mean Gradient 2 mmHg Left Ventricular Outflow Tract Velocity 0.8 m/s Mitral Valve Prosthetic Peak Gradient 9 mmHg Mitral Valve Prosthetic Mean Gradient 2 mmHg Mitral Valve Gradient HR 56 bpm Mitral Valve Aliasing Velocity 31.9 cm/s Mitral Valve PISA Radius 0.23 cm Tricuspid Valve EROA PISA Equation 0.63 cm2 Tricuspid Valve PISA Radius 9 mm Tricuspid Valve Nyquist Aliasing Velocity 33.5 cm/s TV VTI 80.1 cm Tricuspid Valve Regurgitant Volume 51 ml MGB CV AV DIMENSIONLESS INDEX (PEAK) - STRESS ECHO DOBUT - REST 0.67 Pulmonary Valve Peak Velocity 1.4 m/s Tricuspid Valve Prosthetic Peak Gradient 5 mmHg Tricuspid Valve Prosthetic Mean Gradient 1 mmHg Tricuspid Valve Peak Gradient 5 mmHg Tricuspid Valve Mean Gradient 1 mmHg Tricuspid Valve Gradient HR 55 bpm Mitral Valve Vena Contracta 7.0 mm Anatomical Region Laterality Modality Heart Ultrasound Addenda Addendum by Nam Moyer MD on 03/28/2025 3:18 PM EDT Normal left ventricular size and systolic function (LVEF 57%) Right ventricular dilation with preserved systolic function Rheumatic valvular heart disease, 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 Mitral stenosis. Severe tricuspid regurgitation Biatrial enlargement Trace aortic regurgitation Mild pulmonic regurgitation with evidence of PHTN Left Ventricle The left ventricle is normal in size. There is normal wall thickness. There is normal left ventricular systolic function. The LV ejection fraction is 57% (calculated via biplane measurement). There are no wall motion abnormalities. Right Ventricle The right ventricle is dilated. The RV basal dimension is 44 mm. There is normal right ventricular systolic function. TAPSE is 20 mm (normal: >= 17 mm). RV S' wave is 14.0 cm/s (normal: >= 9.5 cm/s). Left Atrium The left atrium is moderately dilated. The left atrial volume is 83 mL. The left atrial volume index by BSA is 47 mL/m2 (normal: 16-34 mL/m2). Right Atrium The right atrium is dilated. The right atrial superior-inferior dimension is 62 mm; index is 35 mm/m2 (normal: 19-30 mm/m2). The right atrial medial-lateral dimension is 49 mm; index is 28 mm/m2 (normal: 13-25 mm/m2). The IVC is not assessed. Mitral Valve There is no evidence of mitral valve prolapse. There is diffuse thickening of both mitral leaflets. There is anterior leaflet doming with immobility of the posterior leaflet, consistent with rheumatic disease. There is chordal thickening present. There is subvalvular thickening. 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 The mitral valve peak and mean gradients are 9 mmHg and 2 mmHg respectively at 56 bpm (regular). There is moderate to severe mitral regurgitation. There is systolic blunting of the pulmonary vein flow, consistent with elevated left atrial pressure. The mitral valve vena contracta width is 7.0 mm. See loop 10 frame 22; also in 62.25, splay of the proximal jet is c/w mod-sev MR. Tricuspid Valve There is incomplete coaptation of the tricuspid valve leaflets. There are rheumatic changes of the tricuspid valve without significant stenosis. There is severe tricuspid regurgitation with a centrally directed jet. The tricuspid valve effective regurgitant orifice area is calculated at 0.63 cm2, by PISA method. The tricuspid valve regurgitant volume is calculated at 51 ml, by PISA method. RVSP could not be estimated due to rapid equilibration of RV and RA pressure due to severe TR. Aortic Valve The aortic valve is tricuspid. Multiple leaflets are thickened. There is no aortic stenosis. There is trace aortic regurgitation. Pulmonic Valve There is mild pulmonic regurgitation. The main, right and left pulmonary arteries are dilated. There is echocardiographic evidence of pulmonary hypertension. Pericardium There is no pericardial effusion. General Findings The image quality was fair (3). Patient terminated exam early. Comparison Findings Compared to prior study (direct image comparison) on 03/18/2025, The degree of mitral regurgitation has increased, previously mild-mod; in part this may relate to technical factors, but appears significant. TR remains severe. PA flow shows more definite evidence of PHTN. IAS/IVS There is diastolic flattening of the interventricular septum consistent with right ventricular volume overload. Griselda Jarvis PA-C, MPH CV ECHO ORDERABLES Edited Result - Final * Ammonia (03/27/2025 1:57 AM EDT) Only the most recent of5 resultswithin the time period is included. PLASMA AMMONIA 23 12 - 48 umol/L [facility] Blood 03/27/2025 1:57 AM EDT 03/27/2025 2:02 AM EDT Karla Andrade PA-C LAB BLOOD BKR ORDERABLES Fi nal Result [address] [address] * CT HEAD WITHOUT CONTRAST (03/26/2025 6:27 PM EDT) Anatomical Region Laterality Modality Head Computed Tomogra phy 03/26/2025 6:51 PM EDT Impressions 03/26/2025 7:43 PM EDT 1. Similar size and appearance of bilateral low-attenuation subdural collections measuring up to 4 mm. 2. No evidence of new hemorrhage. Narrative 03/26/2025 7:[address] HEAD WITHOUT CONTRAST Referring clinician's provided indication for this examination in Epic: * Subdural hematoma; New b/l subdural collections, monitor for worsening per NSGY TECHNIQUE: Multidetector-row CT of the head was performed without intravenous contrast using tailored dose modulation techniques. Images were reconstructed in the axial, coronal, and sagittal planes. COMPARISON: CT head 03/26/2025 FINDINGS: Brain Parenchyma: No midline shift, mass effect, parenchymal hemorrhage, or evidence of acute territorial infarct. Ventricular System and Extra-Axial Spaces: Similar size and appearance of low-attenuation bilateral subdural collections measuring up to 4 mm bilaterally. Basal cisterns are patent. No hydrocephalus. Osseous and Extracranial Structures: Hyperostosis frontalis interna. No significant paranasal sinus disease. No orbital abnormality. Procedure Note Gil Kelley MD - 03/26/2025 CT HEAD WITHOUT CONTRAST Referring clinician's provided indication for this examination in Epic: *Subdural hematoma; New b/l subdural collections, monitor for worsening perNSGY TECHNIQUE: Multidetector-row CT of the head was performed withoutintravenous contrast using tailored dose modulation techniques. Imageswere reconstructed in the axial, coronal, and sagittal planes. COMPARISON: CT head 03/26/2025 FINDINGS: Brain Parenchyma: No midline shift, mass effect, parenchymal hemorrhage,or evidence of acute territorial infarct. Ventricular System and Extra-Axial Spaces: Similar size and appearance oflow-attenuation bilateral subdural collections measuring up to 4 mmbilaterally. Basal cisterns are patent. No hydrocephalus. Osseous and Extracranial Structures: Hyperostosis frontalis interna. Nosignificant paranasal sinus disease. No orbital abnormality. IMPRESSION: 1. Similar size and appearance of bilateral low-attenuation subduralcollections measuring up to 4 mm. 2. No evidence of new hemorrhage. Karla Andrade PA-C IMJudd CT HEAD/NECK Final Resu lt * CT HEAD WITHOUT CONTRAST (03/26/2025 1:44 PM EDT) Anatomical Region Laterality Modality Head Computed Tomogra phy 03/26/2025 3:03 PM EDT Impressions 03/26/2025 3:34 PM EDT 1. Interval development of bilateral subdural collections measuring up to 4 mm, with slight narrowing of the ventricles and partial sulcal effacement. No midline shift or herniation. Collections may be secondary to hemorrhage or intracranial hypotension for example. MRI brain with contrast could be helpful for further evaluation. 2. No evidence of acute territorial infarct or parenchymal hemorrhage. ATTESTATION: I, Andi Mcfarland as teaching physician, have reviewed the images for this case and if necessary edited the report originally created by Renard Nugent. Narrative 03/26/2025 3:[address] HEAD WITHOUT CONTRAST Referring clinician's provided indication for this examination in [facility]: * Delirium; * Mental status change, unknown cause; 65F Hx of CVA, CAD with ERNST, MS, admitted with SANDRA, acute liver failure, and vol overload, course c/b delirium and agitation. Labs improving, but mental status continuing to deteriorate TECHNIQUE: Multidetector-row CT of the head was performed without intravenous contrast using tailored dose modulation techniques. Images were reconstructed in the axial, coronal, and sagittal planes. COMPARISON: CT HEAD WITHOUT CONTRAST ; MRI BRAIN (MS) WITH AND WITHOUT CONTRAST . CT head March 23, 2021. FINDINGS: Brain Parenchyma: No midline shift, parenchymal hemorrhage, or evidence of acute territorial infarct. Ventricular System and Extra-Axial Spaces: Interval development of bilateral subdural collections most prominently along the frontoparietal convexities measuring up to 4 mm bilaterally. Collections appear hypodense, but this can be confounded by adjacent artifact from the calvarium. Interval slight narrowing of the ventricles, with partial sulcal effacement within the frontal, temporal, and parietal lobes. Mamillopontine distance measures 5.5 mm, on the lower limits of normal and decreased since March 21, 2025.. Basal cisterns are patent. No hydrocephalus. Osseous and Extracranial Structures: No significant paranasal sinus disease. Right lens extraction. Procedure Note Andi Mcfarland MD - 03/26/2025 CT HEAD WITHOUT CONTRAST Referring clinician's provided indication for this examination in [facility]: *Delirium; * Mental status change, unknown cause; 65F Hx of CVA, CAD withDES, MS, admitted with SANDRA, acute liver failure, and vol overload, coursec/b delirium and agitation. Labs improving, but mental status continuingto deteriorate TECHNIQUE: Multidetector-row CT of the head was performed withoutintravenous contrast using tailored dose modulation techniques. Imageswere reconstructed in the axial, coronal, and sagittal planes. COMPARISON: CT HEAD WITHOUT CONTRAST ; MRI BRAIN (MS) WITH ANDWITHOUT CONTRAST . CT head March 23, 2021. FINDINGS: Brain Parenchyma: No midline shift, parenchymal hemorrhage, or evidence ofacute territorial infarct. Ventricular System and Extra-Axial Spaces: Interval development ofbilateral subdural collections most prominently along the frontoparietalconvexities measuring up to 4 mm bilaterally. Collections appearhypodense, but this can be confounded by adjacent artifact from thecalvarium. Interval slight narrowing of the ventricles, with partialsulcal effacement within the frontal, temporal, and parietal lobes.Mamillopontine distance measures 5.5 mm, on the lower limits of normal anddecreased since March 21, 2025.. Basal cisterns are patent. Nohydrocephalus. Osseous and Extracranial Structures: No significant paranasal sinusdisease. Right lens extraction. IMPRESSION: 1. Interval development of bilateral subdural collections measuring up to4 mm, with slight narrowing of the ventricles and partial sulcaleffacement. No midline shift or herniation. Collections may be secondaryto hemorrhage or intracranial hypotension for example. MRI brain withcontrast could be helpful for further evaluation. 2. No evidence of acute territorial infarct or parenchymal hemorrhage. ATTESTATION: I, Andi Mcfarland as teaching physician, have reviewed theimages for this case and if necessary edited the report originally createdby Renard Nugent. us Karla Andrade PA-C IMG CT HEAD/NECK Final Resu lt * (ABNORMAL) Cystatin C (03/25/2025 7:22 AM EDT) Cystatin C 2.35(H) 0.61 - 0.95 mg/L [facility] eGFR (Cystatin C) 23(L) >59 mL/min/1. 73m2 [facility] Comment: Cystatin C-based eGFR may differ substantially from creatinine-based eGFR in patients with abnormal muscle mass or acutely changing renal function. Please interpret together with relevant clinical features. 03/25/2025 7:22 AM EDT 03/25/2025 7:29 AM EDT us Lynn Gaines PA-C LAB BLOOD BKR ORDERAB LES Final Result [address] [address] * (ABNORMAL) Vancomycin, trough (03/24/2025 8:55 AM EDT) VANCOMYCIN,TRO UGH 21.0(H) 10.0 - 20.0 ug/mL [facility] Blood 03/24/2025 8:55 AM EDT 03/24/2025 9:34 AM EDT Griselda Jarvis PA-C, MPH LAB BLOOD BKR ORDERABLES F inal Result Performing Organization Address City/[facility] Co de Phone Number [address] [address] * Vancomycin, unspecified (03/24/2025 7:45 AM EDT) VANCOMYCIN,UNS PECIF. 21.2 ug/mL [facility] Comment: PEAK: 15.0-35.0 TROUGH: 10.0-20.0 Blood 03/24/2025 7:45 AM EDT 03/24/2025 9:35 AM EDT Griselda Jarvis PA-C, MPH LAB BLOOD BKR ORDERABLES F inal Result Performing Organization Address City/[facility] Co de Phone Number [address] [address] * Immunofixation only (03/24/2025 5:58 AM EDT) IMMUNOFIXATION There is a 0.06 g/dl IgG lambda M component and a 0.13 g/dl IgG kappa M component, both in the gamma region. [facility] Comment: M-components at concentrations of 0.05 to 0.5 grams per dl, previously designated as very low and low concentration bands, may be seen in patients with treated MM. Also, unusual forms of MM, such as IgD myeloma and the light chain version of MM in which the M-component seldom exceeds 0.2 grams per dl, cold agglutinin disease, Type II cryoproteinemia, CLL and other B cell lymphomas, chronic infection, AIDS, Sjogren's syndrome, immune-mediated neuropathies and amyloidosis. M-components of various concentrations are the product of an expanded clone of B-lymphocytes or plasma cells. If clinical evaluation reveals no other evidence of a lymphoproliferative process, then it seems prudent to determine the stability of the finding at 4-6 month intervals during the first year and, if stable, at yearly intervals, thereafter. In monoclonal gammopathy of uncertain significance (MGUS), the M-component is usually present in concentration of 0.5 to 3 grams per dl, and in multiple myeloma (MM), the concentration of M-component is usually 3 to 5 grams per dl. Performing Physician, Tyson Santos M.D., [id number] 03/24/2025 5:58 AM EDT 03/24/2025 6:50 AM EDT Griselda Jarvis PA-C, MPH LAB BLOOD BKR ORDERABLES F inal Result Performing Organization Address [facility] Co de Phone Number [address] [address] * (ABNORMAL) SPEP PANEL (03/24/2025 5:58 AM EDT) Total Protein 5.7(L) 6.0 - 8.3 g/dL [facility] IMMUNOGLOBULIN G 924 614 - 1,295 mg/dL [facility] IgA 190 69 - 309 mg/dL [facility] IMMUNOGLOBULIN M 90 53 - 334 mg/dL [facility] SPEP Abnormal pattern [facility] Comment: Banding present. Please see Immunofixation for final results. Performing Physician, Tyson Santos M.D., [id number] Serum protein electrophoresis results should be evaluated in the context of separately reported serum free light chain levels and ratio when these additional results are available. Blood 03/24/2025 5:58 AM EDT 03/24/2025 6:50 AM EDT Griselda Jarvis PA-C, MPH LAB BLOOD BKR ORDERABLES F inal Result Performing Organization Address [facility] Co de Phone Number [address] [address] * (ABNORMAL) Free light chains, serum (03/24/2025 5:58 AM EDT) FREE KAPPA LT CHAIN 124.4(H) 3.3 - 19.4 mg/L [facility] FREE LAMBDA LT CHAIN 48.1(H) 5.7 - 26.3 mg/L [facility] FREE KAPPA LAMBDA RAT 2.59(H) 0.30 - 1.70 [facility] Blood 03/24/2025 5:58 AM EDT 03/24/2025 6:50 AM EDT Griselda Jarvis PA-C, MPH LAB BLOOD BKR ORDERABLES F inal Result Performing Organization Address [facility] Co de Phone Number [address] [address] * Fibrinogen (03/23/2025 10:05 PM EDT) Only the most recent of9 resultswithin the time period is included. FIBRINOGEN 365 200 - 400 mg/dL [facility] Blood 03/23/2025 10:0 5 PM EDT 03/23/2025 10:11 PM EDT Griselda Jarvis PA-C, MPH LAB BLOOD BKR ORDERABLES F inal Result Performing Organization Address [facility] de Phone Number [address] [address] * CT ABDOMEN/PELVIS WITH CONTRAST (03/23/2025 5:30 PM EDT) Anatomical Region Laterality Modality Abdomen, Pelvis Computed Tomogra phy 03/23/2025 5:38 PM EDT Impressions 03/23/2025 6:18 PM EDT Compared to CT 03/21/2025: * No acute process of the abdomen or pelvis. * Interval improvement/resolution of colonic pneumatosis. Liquefied stool contents within the large bowel. * Increased small left pleural effusion. ATTESTATION: I, Dr. Javier Rodriguez as teaching physician, have reviewed the images for this case and if necessary edited the report originally created by Kamla Devine. Narrative 03/23/2025 6:[address] ABDOMEN/PELVIS WITH CONTRAST Referring clinician's provided indication for this examination in Epic: * Infectious gastroenteritis or colitis TECHNIQUE: Multidetector-row CT of the abdomen and pelvis was performed after administration of intravenous contrast using tailored dose modulation techniques. Images were reconstructed in the axial, coronal, and sagittal planes. COMPARISON: CT ABDOMEN/PELVIS WITH CONTRAST FINDINGS: Lower chest: Mild cardiomegaly. Mild coronary artery atherosclerotic calcifications. Increased small left pleural effusion with associated compressive atelectasis. Bibasilar scarring. Liver: Hepatic steatosis. No suspicious focal lesions. Biliary: Cholecystomy. No biliary ductal dilatation. Spleen: No splenomegaly or focal lesions. Pancreas: No masses or ductal dilatation. Adrenal glands: No nodules. Kidneys/ureters: Renal cysts. No solid masses or hydronephrosis. No obstructive stones. Bowel: Similar wall thickening of the partially imaged esophagus. Patent colorectal anastomosis. Liquefied contents of the cecum (2:73). Peritoneum/retroperitoneum: No masses, free air, or fluid. Lymph nodes: No lymphadenopathy. Pelvic organs/bladder: No masses. Hysterectomy. Maza balloon and tip within the decompressed urinary bladder. Vessels: Atherosclerotic calcifications of the aorta and its major branch, moderate. No abdominal aortic aneurysm. Bones/soft tissues: No destructive osseous lesions. Diffuse anasarca. Ventral hernia repair with mesh. Gluteal calcified injection granulomas. Procedure Note Javier Rodriguez MD - 03/23/2025 CT ABDOMEN/PELVIS WITH CONTRAST Referring clinician's provided indication for this examination in Epic: *Infectious gastroenteritis or colitis TECHNIQUE: Multidetector-row CT of the abdomen and pelvis was performedafter administration of intravenous contrast using tailored dosemodulation techniques. Images were reconstructed in the axial, coronal,and sagittal planes. COMPARISON: CT ABDOMEN/PELVIS WITH CONTRAST FINDINGS: Lower chest: Mild cardiomegaly. Mild coronary artery atheroscleroticcalcifications. Increased small left pleural effusion with associatedcompressive atelectasis. Bibasilar scarring. Liver: Hepatic steatosis. No suspicious focal lesions. Biliary: Cholecystomy. No biliary ductal dilatation. Spleen: No splenomegaly or focal lesions. Pancreas: No masses or ductal dilatation. Adrenal glands: No nodules. Kidneys/ureters: Renal cysts. No solid masses or hydronephrosis. Noobstructive stones. Bowel: Similar wall thickening of the partially imaged esophagus. Patentcolorectal anastomosis. Liquefied contents of the cecum (2:73). Peritoneum/retroperitoneum: No masses, free air, or fluid. Lymph nodes: No lymphadenopathy. Pelvic organs/bladder: No masses. Hysterectomy. Maza balloon and tipwithin the decompressed urinary bladder. Vessels: Atherosclerotic calcifications of the aorta and its major branch,moderate. No abdominal aortic aneurysm. Bones/soft tissues: No destructive osseous lesions. Diffuse anasarca.Ventral hernia repair with mesh. Gluteal calcified injection granulomas. IMPRESSION: Compared to CT 03/21/2025: * No acute process of the abdomen or pelvis. * Interval improvement/resolution of colonic pneumatosis. Liquefied stoolcontents within the large bowel. * Increased small left pleural effusion. ATTESTATION: I, Dr. Javier Rodriguez as teaching physician, have reviewed theimages for this case and if necessary edited the report originally createdby Kamla Devine. us Griselda Jarvis PA-C, MPH IMG CT ABD/PELVIS Final Re sult * Potassium (03/22/2025 9:28 PM EDT) Only the most recent of2 resultswithin the time period is included. POTASSIUM 4.8 3.4 - 5.0 mmol/L [facility] Blood 03/22/2025 9:28 PM EDT 03/22/2025 9:34 PM EDT us Alie Bojorquez MD LAB BLOOD BKR ORDERABLES Fin al Result [address] [address] * (ABNORMAL) Lipase (03/22/2025 5:58 AM EDT) Only the most recent of3 resultswithin the time period is included. LIPASE 203(H) 13 - 60 U/L [facility] Blood 03/22/2025 5:58 AM EDT 03/22/2025 6:23 AM EDT us Lynn Gaines PA-C LAB BLOOD BKR ORDERAB LES Final Result [facility] [address] [place] [address] * XR Chest Portable (03/21/2025 4:32 PM EDT) Anatomical Region Laterality Modality Chest Computed Radiogr aphy 03/21/2025 4:59 PM EDT Impressions 03/21/2025 5:02 PM EDT Findings suggestive of mild interstitial pulmonary edema. Narrative 03/21/2025 5:02 PM EDT XR CHEST PORTABLE Referring clinician's provided indication for this examination in Epic: Infection COMPARISON: XR CHEST PORTABLE FINDINGS: Devices/Tubes/Lines: None. Lungs: There is cephalization of the pulmonary vasculature. No new consolidation is present. Pleura: No pleural effusion or pneumothorax. Heart/Mediastinum: Unchanged in appearance. Bones/Soft Tissues: The thoracic skeleton is unchanged. Procedure Note Oscar Michele MD - 03/21/2025 XR CHEST PORTABLE Referring clinician's provided indication for this examination in [facility]:Infection COMPARISON: XR CHEST PORTABLE FINDINGS: Devices/Tubes/Lines: None. Lungs: There is cephalization of the pulmonary vasculature. No newconsolidation is present. Pleura: No pleural effusion or pneumothorax. Heart/Mediastinum: Unchanged in appearance. Bones/Soft Tissues: The thoracic skeleton is unchanged. IMPRESSION: Findings suggestive of mild interstitial pulmonary edema. 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 Possible right colonic pneumatosis which may indicate additional ischemia. These findings were discussed with Lynn Gaines on 03/21/2025 4:27 PM, who responded indicating that the communication was understood. A clinically significant result was initiated on 03/21/2025 5:10 PM, Message ID [id number]. ATTESTATION: I, Dr. Ashok Doss as teaching physician, have reviewed the images for this case and if necessary edited the report originally created by Harrison Briggs. Narrative 03/21/2025 5:[address] ABDOMEN/PELVIS WITH CONTRAST Referring clinician's provided indication for this examination in [facility]: * Abdominal abscess/infection suspected; * Abdominal pain, acute, nonlocalized; possible colitis on CT 03/17, now with abd pain/tenderness and leukocytosis TECHNIQUE: Multidetector-row CT of the abdomen and pelvis was performed after administration of intravenous contrast using tailored dose modulation techniques. Images were reconstructed in the axial, coronal, and sagittal planes. COMPARISON: CT ABDOMEN/PELVIS WITHOUT CONTRAST FINDINGS: Lower chest: Peripheral patchy areas of subpleural groundglass in the right middle lobe are new from prior and may reflect areas of infection/inflammation. Biatrial enlargement. Coronary artery calcifications. Liver: No focal lesions. Biliary: Cholecystectomy. No biliary ductal dilatation. Spleen: No splenomegaly or focal lesions. Pancreas: No masses or ductal dilatation. Adrenal glands: No nodules. Kidneys/ureters: No solid masses or hydronephrosis. No stones. Small right renal cyst. Bowel: Increased mural thickening of the partially imaged esophagus, likely infectious/inflammatory. Slightly worse areas of bowel wall thickening including the cecum, ascending colon, transverse colon, and splenic flexure. Curvilinear lucencies along the wall of the cecum and ascending colon may reflect pneumatosis. Bubbly lucencies in the descending colon are likely related to stool. No obstruction. Patent colorectal anastomosis. Peritoneum/retroperitoneum: No masses, free air. Trace ascites. Lymph nodes: No lymphadenopathy. Pelvic organs/bladder: No masses. Maza catheter terminates in an underdistended bladder. Hysterectomy. Vessels: No abdominal aortic aneurysm. Moderate atherosclerosis. Replaced common hepatic artery. Bones/soft tissues: No destructive osseous lesions. Diffuse anasarca. Gluteal injection granulomas. Postoperative changes in the ventral abdominal wall. Procedure Note Ashok Doss MD, MPH - 03/21/2025 CT ABDOMEN/PELVIS WITH CONTRAST Referring clinician's provided indication for this examination in [facility]: *Abdominal abscess/infection suspected; * Abdominal pain, acute,nonlocalized; possible colitis on CT 03/17, now with abd pain/tendernessand leukocytosis TECHNIQUE: Multidetector-row CT of the abdomen and pelvis was performedafter administration of intravenous contrast using tailored dosemodulation techniques. Images were reconstructed in the axial, coronal,and sagittal planes. COMPARISON: CT ABDOMEN/PELVIS WITHOUT CONTRAST FINDINGS: Lower chest: Peripheral patchy areas of subpleural groundglass in theright middle lobe are new from prior and may reflect areas ofinfection/inflammation. Biatrial enlargement. Coronary arterycalcifications. Liver: No focal lesions. Biliary: Cholecystectomy. No biliary ductal dilatation. Spleen: No splenomegaly or focal lesions. Pancreas: No masses or ductal dilatation. Adrenal glands: No nodules. Kidneys/ureters: No solid masses or hydronephrosis. No stones. Small rightrenal cyst. Bowel: Increased mural thickening of the partially imaged esophagus,likely infectious/inflammatory. Slightly worse areas of bowel wallthickening including the cecum, ascending colon, transverse colon, andsplenic flexure. Curvilinear lucencies along the wall of the cecum andascending colon may reflect pneumatosis. Bubbly lucencies in thedescending colon are likely related to stool. No obstruction. Patentcolorectal anastomosis. Peritoneum/retroperitoneum: No masses, free air. Trace ascites. Lymph nodes: No lymphadenopathy. Pelvic organs/bladder: No masses. Maza catheter terminates in anunderdistended bladder. Hysterectomy. Vessels: No abdominal aortic aneurysm. Moderate atherosclerosis. Replacedcommon hepatic artery. Bones/soft tissues: No destructive osseous lesions. Diffuse anasarca.Gluteal injection granulomas. Postoperative changes in the ventralabdominal wall. IMPRESSION: Since 03/17/2025: * Worsening colitis, which may be infectious or inflammatory. Possibleright colonic pneumatosis which may indicate additional ischemia. These findings were discussed with Lynn Gaines on 03/21/2025 4:27 PM,who responded indicating that the communication was understood. A clinically significant result was initiated on 03/21/2025 5:10 PM,Message ID [id number]. ATTESTATION: I, Dr. Ashok Doss as teaching physician, have reviewedthe images for this case and if necessary edited the report originallycreated by Harrison Briggs. us Lynn Osullivan Prince TRIPLETT IMG CT ABD/PELVIS Fin al Result * CT HEAD WITHOUT CONTRAST (03/21/2025 4:10 PM EDT) Anatomical Region Laterality Modality Head Computed Tomogra phy 03/21/2025 4:12 PM EDT Impressions 03/21/2025 4:45 PM EDT No acute intracranial findings. ATTESTATION: I, Dr. Paty Mooney as teaching physician, have reviewed the images for this case and if necessary edited the report originally created by Obinna Sarabia. Narrative 03/21/2025 4:[address] HEAD WITHOUT CONTRAST Referring clinician's provided indication for this examination in [facility]: * Delirium TECHNIQUE: Multidetector-row CT of the head was performed without intravenous contrast using tailored dose modulation techniques. Images were reconstructed in the axial, coronal, and sagittal planes. COMPARISON: CT HEAD WITHOUT CONTRAST FINDINGS: Brain Parenchyma: No midline shift, mass effect, parenchymal hemorrhage, or evidence of acute territorial infarct. Mild hypoattenuation in the periventricular and subcortical white matter, nonspecific but likely represents sequela of small vessel disease. Ventricular System and Extra-Axial Spaces: No extra-axial fluid collections. Basilar cisterns are patent. No hydrocephalus. Prominence of the ventricles, sulci, and cisterns consistent with age-related brain parenchymal volume loss. Atherosclerotic calcifications in the carotid siphons and intradural vertebral arteries.. Extracranial Structures: No orbital abnormality. No calvarial lesion is identified. No significant paranasal sinus disease. No mastoid effusion. Right lens implant. Procedure Note Paty Mooney MD - 03/21/2025 CT HEAD WITHOUT CONTRAST Referring clinician's provided indication for this examination in [facility]: *Delirium TECHNIQUE: Multidetector-row CT of the head was performed withoutintravenous contrast using tailored dose modulation techniques. Imageswere reconstructed in the axial, coronal, and sagittal planes. COMPARISON: CT HEAD WITHOUT CONTRAST FINDINGS: Brain Parenchyma: No midline shift, mass effect, parenchymal hemorrhage,or evidence of acute territorial infarct. Mild hypoattenuation in theperiventricular and subcortical white matter, nonspecific but likelyrepresents sequela of small vessel disease. Ventricular System and Extra-Axial Spaces: No extra-axial fluidcollections. Basilar cisterns are patent. No hydrocephalus. Prominence ofthe ventricles, sulci, and cisterns consistent with age-related brainparenchymal volume loss. Atherosclerotic calcifications in the carotidsiphons and intradural vertebral arteries.. Extracranial Structures: No orbital abnormality. No calvarial lesion isidentified. No significant paranasal sinus disease. No mastoid effusion.Right lens implant. IMPRESSION: No acute intracranial findings. ATTESTATION: I, Dr. Paty Mooney as teaching physician, have reviewed theimages for this case and if necessary edited the report originally createdby Obinna Sarabia. us Lynn Gaines PA-C IMG CT HEAD/NECK Angle l Result * Bacterial Stool PCR Panel (03/21/2025 12:04 PM EDT) Pathologist [facility] Shigella spp./Enteroinvas coral E.coli PCR Not Detected Not Detected [facility] Shiga toxin (stx1/stx2) PCR Not Detected Not Detected [facility] Campylobacter spp. PCR Not Detected Not Detected [facility] Salmonella spp. PCR Not Detected Not Detected [facility] Comment:Low volume of stool received. Potential for false negative results. Please recollect sample if clinically indicated. Stool (Stool) 03/21/2025 12: 04 PM EDT 03/21/2025 6:43 PM EDT Lynn Gaines PA-C LAB BODY FLUIDS AND S TOOL ORDERABLES Final Result [facility] [address] [place] [address] * HSV TYPE 1,2 QUANTITATIVE PCR, BLOOD (03/21/2025 5:45 AM EDT) Pathologist [facility] HSV 1 DNA Not Detected Not Detected copies/mL [facility] HSV 2 PCR Not Detected Not Detected copies/mL [facility] Comment: (NOTE) Assay Range for HSV 1 is 37 copies/mL to 1.00E+08 copies/mL Assay Range for HSV 2 is 73 copies/mL to 1.00E+08 copies/mL The limit of quantitation (LOQ) is 37 (HSV 1) and 73 (HSV 2) copies/mL. HSV DNA detected below the LOQ will be reported as Detected:<37 copies/mL (HSV 1) or Detected:<73 copies/mL (HSV 2). This test was developed and its performance characteristics determined by [employer]. It has not been cleared or approved by the U.S. Food and Drug Administration. Results should be used in conjunction with clinical findings, and should not form the sole basis for a diagnosis or treatment decision. Testing Performed At: [facility] [address] [place] [address], [address] [place] [address] Perianesthesia Nurse: Armando Roberts, PhD ANGELLA (ABB) CLIA # [id number] FLAG Interpretation: A = Abnormal, H = High, L = Low Blood 03/21/2025 5:45 AM EDT 03/21/2025 6:43 AM EDT Lynn Gaines PA-C LAB BLOOD BKR ORDERAB LES Final Result [facility] [address] [place] [address] * HEPATITIS E ANTIBODY, IGM (03/21/2025 5:45 AM EDT) Hepatitis E Virus IgM Antibody Screen Negative Negative [facility] Comment: (NOTE) If clinical suspicion persists, submit new specimen for retesting in 1 to 2 weeks. ADDITIONAL INFORMATION This test was developed and its performance characteristics determined by [facility] in a manner consistent with CLIA requirements. This test has not been cleared or approved by the U.S. Food and Drug Administration. Blood 03/21/2025 5:45 AM EDT 03/21/2025 6:43 AM EDT Lynn Gaines PA-C LAB BLOOD ORDERABLES Final Result Performing Organization Address City/[facility]/ZIP Co de Phone Number [facility] [address] [place] [place] [address] * VARICELLA-ZOSTER (VZV) ANTIBODY, IGM (03/21/2025 5:45 AM EDT) VARICELLA ZOSTER AB, IGM, S Negative Negative [facility] MED/PATH [facility] Blood (Blood) 03/21/2025 5: 45 AM EDT 03/21/2025 6:44 AM EDT Lynn Gaines PA-C NON CULTURE MICROBIOL OGY Final Result Performing Organization Address [facility] de Phone Number [facility] MED/PATH [facility] [address] [place] [address] * (ABNORMAL) Mg/Phos pkg (03/20/2025 12:59 PM EDT) MAGNESIUM 1.6(L) 1.7 - 2.4 mg/dL [facility] PHOSPHORUS 2.5(L) 2.6 - 4.5 mg/dL [facility] 03/20/2025 12:5 9 PM EDT 03/20/2025 1:08 PM EDT Boy Patrick MD LAB BLOOD ORDERABLES Final Resu lt Performing Organization Address [facility]/ZIP Co de Phone Number [facility] [address] [place] [address] * (ABNORMAL) Complement C3 (03/20/2025 12:31 AM EDT) Only the most recent of2 resultswithin the time period is included. C3 65(L) 81 - 157 mg/dl [facility] Comment:Result checked Blood 03/20/2025 12:3 1 AM EDT 03/20/2025 12:54 AM EDT us Summer Nj MEDICATION ASSISTANT LAB BLOOD BKR ORDERABLES Final Result Performing Organization Address City/[facility] Co de Phone Number [address] [address] * (ABNORMAL) Complement C4 (03/20/2025 12:31 AM EDT) Only the most recent of2 resultswithin the time period is included. C4 8(L) 12 - 39 mg/dL [facility] Comment:Result checked Blood 03/20/2025 12:3 1 AM EDT 03/20/2025 12:54 AM EDT Summer Nj [facility] LAB BLOOD BKR ORDERABLES Final Result Performing Organization Address [facility]/[place] de Phone Number [address] [address] * XR Chest Portable (03/19/2025 4:40 AM EDT) Anatomical Region Laterality Modality Chest Computed Radiogr aphy 03/19/2025 11:4 8 AM EDT Impressions 03/19/2025 11:49 AM EDT No evidence of pneumonia or pulmonary edema. Narrative 03/19/2025 11:49 AM EDT XR CHEST PORTABLE Referring clinician's provided indication for this examination in [facility]: Dyspnea (Shortness of Breath) COMPARISON: XR CHEST PORTABLE ; CT CHEST WITH CONTRAST ; CT ABDOMEN/PELVIS WITHOUT CONTRAST FINDINGS: Devices/Tubes/Lines: None. Lungs: No focal consolidation or pulmonary edema. Pleura: Decreased trace right pleural effusion. No pneumothorax. Heart/Mediastinum: Normal cardiomediastinal silhouette. Bones/Soft Tissues: Bony thorax and extrathoracic soft tissues are unchanged. Procedure Note Sepideh Snell MD - 03/19/2025 XR CHEST PORTABLE Referring clinician's provided indication for this examination in [facility]:Dyspnea (Shortness of Breath) COMPARISON: XR CHEST PORTABLE ; CT CHEST WITH [id number]; CT ABDOMEN/PELVIS WITHOUT CONTRAST FINDINGS: Devices/Tubes/Lines: None. Lungs: No focal consolidation or pulmonary edema. Pleura: Decreased trace right pleural effusion. No pneumothorax. Heart/Mediastinum: Normal cardiomediastinal silhouette. Bones/Soft Tissues: Bony thorax and extrathoracic soft tissues areunchanged. IMPRESSION: No evidence of pneumonia or pulmonary edema. us Darion-Chet Jw Turno PA-C IMG XR CHEST Final Result * XR ABDOMEN 2 VIEWS (03/18/2025 11:22 PM EDT) Anatomical Region Laterality Modality Abdomen Computed Radiogr aphy 03/19/2025 9:22 AM EDT Impressions 03/19/2025 9:31 AM EDT FINDINGS/IMPRESSION: Tubes/Lines: Midline pelvic catheter. Cholecystectomy clips. Bowel: Normal. No bowel dilatation. Free Air: Normal. No pneumoperitoneum. Narrative 03/19/2025 9:31 AM EDT XR ABDOMEN 2 VIEWS Referring clinician's provided indication for this examination in [facility]: Abdominal distension; Pain COMPARISON: CT ABDOMEN/PELVIS WITHOUT CONTRAST Procedure Note Annie Kern MD, PhD - 03/19/2025 XR ABDOMEN 2 VIEWS Referring clinician's provided indication for this examination in [facility]:Abdominal distension; Pain COMPARISON: CT ABDOMEN/PELVIS WITHOUT CONTRAST IMPRESSION: FINDINGS/IMPRESSION: Tubes/Lines: Midline pelvic catheter. Cholecystectomy clips. Bowel: Normal. No bowel dilatation. Free Air: Normal. No pneumoperitoneum. us Darion-Chet Jw Turno PA-C IMG XR ABDOMEN Final Result * TTE COMPREHENSIVE (03/18/2025 3:33 PM EDT) Body Surface Area 1.78 m2 Left Ventricular Apical Contribution 10 Tricuspid Valve Peak Velocity 2.7 m/s Right Ventricle to Right Atrium Pressure Gradient 29 mmHg Right Ventricle Peak Systolic Pressure (Assuming RAP 10) 39 mmHg MGB CV ECHO TV RVSP (ASSUMING RAP OF 5) 34 mmHg RVSP (Exclusive of RAP) 29 mmHg Left Ventricle Internal Diameter End Diastole 46 37 - 52 mm Interventricular Septum Thickness 9 6 - 11 mm Aortic Sinus Diameter 33 <40 mm Left Ventricle Internal Diameter End Systole 31 <35 mm Left Ventricular Posterior Wall Thickness 10 6 - 11 mm Ascending Aorta Diameter 35 <36 mm Raw LV EF% 55 % Relative Wall Thickness 0.43 0.22 - 0.42 Left Ventricle indexed to BSA 83.2 g/m2 Aortic Valve Sinus Index by BSA 19 mm/m2 Ascending Aorta Index 20 mm/m2 Ascending Aorta Index 20 mm Aortic Sinus Index 19 mm Ascending Aorta Diameter 20 mm Aortic Valve Sinus Index 1 19 19 - 27 mm AO ASC DIAM BSA INDEX 19.66 Height 158 cm Weight 77.00 kg Left Atrium Dimension Anterior-Posterior 40 15 - 40 mm Ejection Fraction 65 50 - 75 % Aorta Sinus Index by Height 2.09 cm/m Aorta Sinus CSA index by Height 5.41 cm2/m Asc Aorta CSA Index by Height 6.09 cm2/m Tricuspid Valve Vena Contracta 9.0 mm Anatomical Region Laterality Modality Heart Ultrasound Narrative 03/18/2025 4:53 PM EDT Normal biventricular systolic function Dilated RV Rheumatic changes of mitral valve with mild to moderate MR Severe TR with rheumatic changes. Left Ventricle The left ventricle is normal in size. There is normal wall thickness. There is normal left ventricular systolic function. The LV ejection fraction is 65% (calculated via the single dimension method). There are no wall motion abnormalities. Right Ventricle The RV is suboptimally visualized. Visually the right ventricle appears dilated. There appears to be normal systolic function. Left Atrium Left atrial volumes could not be quantified. Right Atrium The right atrium is suboptimally visualized. There is a prominent Eustachian valve (normal variant). The IVC is dilated with reduced inspiratory collapse. This is consistent with elevated RA pressure. The IVC diameter is (normal: <= 21 mm). Mitral Valve There is diffuse thickening of both mitral leaflets without prolapse. There is anterior leaflet doming with immobility of the posterior leaflet, consistent with rheumatic disease. There is mild to moderate mitral regurgitation. Tricuspid Valve There is incomplete closure of the tricuspid valve. There are rheumatic changes of the tricuspid valve without significant stenosis. There is severe tricuspid regurgitation. There is reversal of systolic flow in the hepatic veins. The tricuspid valve vena contracta is 9.0 mm. The RV systolic pressure was calculated at 39 mmHg (using TR peak velocity of 2.7 m/s and assuming an RA pressure of 10 mmHg). (This is likely understimated given the severity of tricuspid regurgitation.) Aortic Valve The aortic valve is tricuspid. There is leaflet thickening without stenosis. There is trace aortic regurgitation. The visualized portions of the thoracic aorta appear normal in size. Pulmonic Valve There is mild pulmonic regurgitation. Pericardium There is no pericardial effusion. General Findings The study was technically difficult (4). Study quality explanation: no apical window and no subcostal views. Comparison Findings Compared to prior report on 03/11/2025, ([facility] TTE) TR is severe. RVSP is lower but likely underestimated. us Carmelina Walden MEDICATION ASSISTANT CV ECHO ORDERABLES Final Resu lt * Lyme Screen w/Reflex to Enzyme Immunoassays (03/18/2025 12:39 PM EDT) LYME IGG/IGM AB Non-React coral [facility] 03/18/2025 12:3 9 PM EDT 03/18/2025 1:10 PM EDT Daniella Kearney MEDICATION ASSISTANT LAB BLOOD BKR ORDERABLES Final Result [address] [address] * US ABDOMEN LIMITED WITH DOPPLER (03/18/2025 11:11 AM EDT) Anatomical Region Laterality Modality Abdomen Ultrasound 03/18/2025 11:3 8 AM EDT Impressions 03/18/2025 11:49 AM EDT - The portal veins demonstrate bidirectional flow reflecting portal hypertension. Otherwise patent hepatic vasculature. - No biliary ductal dilatation. ATTESTATION: I, Dr. Julita White as teaching physician, have reviewed the images for this case and if necessary edited the report originally created by Lesly Hernandez. Narrative 03/18/2025 11:49 AM EDT US ABDOMEN LIMITED WITH DOPPLER Referring clinician's provided indication for this examination in Epic: Hepatic failure; Hepatitis, acute TECHNIQUE: US Abdominal limited right upper quadrant. Color and spectral Doppler performed. COMPARISON: US ABDOMEN LIMITED ONE OR MORE ORGANS ; CT ABDOMEN/PELVIS WITHOUT CONTRAST FINDINGS: Limitations: Technically difficult exam due to patient factors. Liver: No focal lesions. Hepatic Vasculature: Hepatic arteries: Patent with normal waveform and normal velocity. Portal Veins: The main, right and left portal veins are patent but demonstrate bidirectional flow, reflecting portal hypertension. Hepatic Veins: Patent with normal waveforms. Gallbladder: Surgically absent. Biliary: No intrahepatic or extrahepatic biliary ductal dilatation. The common bile duct measures 8 mm, within normal limits post cholecystectomy. Procedure Note Julita White, [facility] LATESHA - 03/18/2025 US ABDOMEN LIMITED WITH DOPPLER Referring clinician's provided indication for this examination in Epic:Hepatic failure; Hepatitis, acute TECHNIQUE: US Abdominal limited right upper quadrant. Color and spectralDoppler performed. COMPARISON: US ABDOMEN LIMITED ONE OR MORE ORGANS ; CTABDOMEN/PELVIS WITHOUT CONTRAST FINDINGS: Limitations: Technically difficult exam due to patient factors. Liver: No focal lesions. Hepatic Vasculature: Hepatic arteries: Patent with normal waveform and normal velocity. Portal Veins: The main, right and left portal veins are patent butdemonstrate bidirectional flow, reflecting portal hypertension. Hepatic Veins: Patent with normal waveforms. Gallbladder: Surgically absent. Biliary: No intrahepatic or extrahepatic biliary ductal dilatation. The common bile duct measures 8 mm, within normal limitspost cholecystectomy. IMPRESSION: - The portal veins demonstrate bidirectional flow reflecting portalhypertension. Otherwise patent hepatic vasculature. - No biliary ductal dilatation. ATTESTATION: I, Dr. Julita White as teaching physician, have reviewedthe images for this case and if necessary edited the report originallycreated by Lesly Hernandez. Summer Nj [facility] IM US ABDOMEN Final Result * Anti XA Screen (03/18/2025 10:08 AM EDT) Anti-Xa Screen Detected [facility] Comment:Anti-Xa assay was pe rformed to determine presence/absence of heparin or other Xa inhibitors for interpretation. Result should not be used to monitor therapy. 03/18/2025 10:0 8 AM EDT 03/18/2025 11:17 AM EDT us Daniella Kearney MEDICATION ASSISTANT LAB BLOOD BKR ORDERABLES Edited Result - Final Performing Organization Address [facility]/ZIP Co de Phone Number [address] [address] * (ABNORMAL) PTT after Hepzyme (03/18/2025 10:08 AM EDT) PTT AFTER HEPZYME 37.9(H) 24.0 - 37.5 sec [facility] 03/18/2025 10:0 8 AM EDT 03/18/2025 11:17 AM EDT us Daniella Gamboa Christel MEDICATION ASSISTANT LAB BLOOD ORDERABLES Angle l Result Performing Organization Address [facility] Co de Phone Number [address] [address] * PTT (03/18/2025 10:08 AM EDT) APTT 34.6 24.0 - 37.5 sec [facility] 03/18/2025 10:0 8 AM EDT 03/18/2025 11:17 AM EDT us Daniella Gamboa Christel MEDICATION ASSISTANT LAB BLOOD ORDERABLES Angle l Result Performing Organization Address [facility] Co de Phone Number [address] [address] * (ABNORMAL) INR (03/18/2025 10:08 AM EDT) PROTHROMBIN TIME 80.0(H) 10.0 - 13.0 sec [facility] INR 7.3(H) 0.9 - 1.1 [facility] 03/18/2025 10:0 8 AM EDT 03/18/2025 11:17 AM EDT us Daniella Gamboa Christel MEDICATION ASSISTANT LAB BLOOD ORDERABLES Angle l Result Performing Organization Address City/[facility]/ZIP Co de Phone Number [address] [address] * (ABNORMAL) Lupus anticoagulant panel (03/18/2025 10:08 AM EDT) Lupus anticoagulant (Hexagonal Phase) Positive (A) Negative [facility] 03/18/2025 10:0 8 AM EDT 03/18/2025 11:17 AM EDT Daniella Kearney [facility] LAB BLOOD ORDERABLES Angle pardo Result [facility] [address] [place] [address] * Special coagulation interpretation (03/18/2025 10:08 AM EDT) Pathologist Richard SPECIAL COAG INTERP. (NOTE) [facility] Comment: 1. The PT is prolonged and the PTT is normal. An Anti-Xa assay detects an anticoagulant, presumably apixaban at 2.10 IU/mL. When the specimen was treated with an enzyme that degrades heparin, the PTT did not decrease, suggesting heparin is not present in the specimen. DOAC exposure can prolong the PT, though not typically to this extent. Additional potential etiologies for the PT prolongation include coumadin, liver dysfunction, vitamin K deficiency, or (if clinically suspected) disseminated intravascular coagulation (DIC). Note that the PT reagent contains a heparin neutralizer, so heparin does not cause an elevated PT. Occasionally, lupus anticoagulants can also prolong the PT by decreasing factor II or by artifactually interfering with the PT assay. The PTT mix was credited because the PTT was not prolonged 5 seconds from the normal range. The PT mix could not be interpreted in the context of apixaban. 2. The PTT-LA lupus anticoagulant assay required confirmation by a second assay because it was initially prolonged but corrected in a 1:1 mix. The confirmatory hexagonal phase assay is positive. Taken together, the results are POSITIVE for a lupus anticoagulant. The IgM anticardiolipin antibody is moderately elevated. Although this value is above the reference range, values under 40 do not count toward the diagnosis of antiphospholipid antibody syndrome. For updated criteria please see PMID [id number]. IgG anticardiolipin antibody is normal. Note that the lupus anticoagulant panel is incomplete as the DRVVT cannot be interpreted due to apixaban interference. If clinically indicated, lupus anticoagulant testing can be repeated when the patient is no longer on apixaban to allow for interpretation of the DRVVT result. Note that other DOACs and warfarin can also interfere with the interpretation of the DRVVT test. The diagnosis of antiphospholipid antibody syndrome (APLAS) requires at least one positive antiphospholipid antibody test (e.g. positive hexagonal phase PTT-LA OR positive DRVVT OR anticardiolipin/qeof-ckqa4-ooegvzryxyjm I as well as thrombosis or complications). Persistently positive tests and proximity to the clinical event increase the likelihood of APLAS. If clinically indicated, repeat testing at least 12 weeks from the positive result. For updated criteria please see PMID [id number]. 3. Factor II, V, VII, and VIII activities could not be interpreted in the context of apixaban. Performing Pathologist: Kanika Phipps MD Signout Location: [facility] [address] [place] [address] Perianesthesia Nurse: Raffy Chinchilla MD 03/18/2025 10:0 8 AM EDT 03/18/2025 11:17 AM EDT us Daniella Kearney [facility] LAB BLOOD ORDERABLES Angle l Result Performing Organization Address City/[facility] Co de Phone Number [facility] [address] [place] [address] * Special slide box (03/18/2025 10:08 AM EDT) Only the most recent of2 resultswithin the time period is included. SPECIAL SLIDE BOX Slide in Main Heme Lab [facility] Blood 03/18/2025 10:0 8 AM EDT 03/18/2025 10:29 AM EDT us Daniella Kearney [facility] LAB BLOOD BKR ORDERABLES Final Result Performing Organization Address [facility]/[place] [address] * PTT mixing studies (03/18/2025 10:08 AM EDT) PTT MIXING STUDY Credit [facility] Comment:Unable to perform mi jason study, the PTT on this specimen is normal. Blood 03/18/2025 10:0 8 AM EDT 03/18/2025 11:17 AM EDT Daniella Kearney MEDICATION ASSISTANT LAB BLOOD BKR ORDERABLES Final Result Performing Organization Address City/[facility]/ZIP Co de Phone Number [address] [address] * PT mixing studies (03/18/2025 10:08 AM EDT) PT MIXING STUDY Results are uninterpretable due to apixaban. [facility] Blood 03/18/2025 10:0 8 AM EDT 03/18/2025 11:17 AM EDT Daniella Kearney MEDICATION ASSISTANT LAB BLOOD ORDERABLES Angle l Result Performing Organization Address [facility] Co de Phone Number [address] [address] * Clotting Inhibitor Level (03/18/2025 10:08 AM EDT) FACTOR INHIBITOR Results are uninterpretable due to apixaban. 0 - 0.5 BU [facility] Blood 03/18/2025 10:0 8 AM EDT 03/18/2025 11:17 AM EDT Daniella Kearney MEDICATION ASSISTANT LAB BLOOD BKR ORDERABLES Final Result Performing Organization Address City/[facility] Co de Phone Number [address] [address] * (ABNORMAL) Lupus anticoagulant panel (03/18/2025 10:08 AM EDT) PTT-LA Preliminary positive, see PTTLA (confirm)(A) Negative for a lupus anticoagul ant. [facility] Comment:Testing done after r emoving heparin from sample. DRVVT Screen Results are uninterpretable due to apixaban.(A) Negative for a lupus anticoagul ant. [facility] Blood 03/18/2025 10:0 8 AM EDT 03/18/2025 11:17 AM EDT Daniella Kearney [facility] LAB BLOOD BKR ORDERABLES Final Result Performing Organization Address [facility] Co de Phone Number [address] [address] * (ABNORMAL) Anti-cardiolipin antibodies (03/18/2025 10:08 AM EDT) [facility] ANTICARDIOLIPIN IGG <9.4 0.0 - 20.0 GPL [facility] ANTICARDIOLIPIN IGM 24.4(H) 0.0 - 20.0 MPL [facility] Blood 03/18/2025 10:0 8 AM EDT 03/18/2025 11:17 AM EDT Daniella Kearney [facility] LAB BLOOD BKR ORDERABLES Final Result Performing Organization Address [facility] Co de Phone Number [address] [address] * Factor VIII (03/18/2025 10:08 AM EDT) Pathologist [facility] FACTOR VIII Results are uninterpretable due to apixaban. 50 - 150 % [facility] Comment:Corrected on 03/22 A T 1245: previously reported as 248 This test overestimates FVIII activity in patients taking emicizumab/hemlibra and underestimates FVIII activity in patients taking efanesoctocog nelson/Altuviiio. Blood 03/18/2025 10:0 8 AM EDT 03/18/2025 11:17 AM EDT Daniella Kearney [facility] LAB BLOOD BKR ORDERABLES Edited Result - Final Performing Organization Address [facility] Co de Phone Number [address] [address] * Factor VII (03/18/2025 10:08 AM EDT) Pathologist [facility] FACTOR VII Results are uninterpretable due to apixaban. 60 - 150 % [facility] Comment:Corrected on 03/22 A T 1244: previously reported as 7 Blood 03/18/2025 10:0 8 AM EDT 03/18/2025 11:17 AM EDT Daniella Kearney MEDICATION ASSISTANT LAB BLOOD ORDERABLES Edit ed Result - Final Performing Organization Address City/[facility]/ZIP Co de Phone Number [address] [address] * Factor V (03/18/2025 10:08 AM EDT) FACTOR V Results are uninterpretable due to apixaban. 60 - 150 % [facility] Comment:Corrected on 03/22 A T 1243: previously reported as 13 Blood 03/18/2025 10:0 8 AM EDT 03/18/2025 11:17 AM EDT Daniella Kearney [facility] LAB BLOOD ORDERABLES Edit ed Result - Final Performing Organization Address [facility] Co de Phone Number [address] [address] * FACTOR II (03/18/2025 10:08 AM EDT) FACTOR II Results are uninterpretable due to apixaban. 60 - 150 % [facility] Comment:Corrected on 03/22 A T 1243: previously reported as 46 Blood 03/18/2025 10:0 8 AM EDT 03/18/2025 11:17 AM EDT Daniella Kearney [facility] LAB BLOOD ORDERABLES Edit ed Result - Final Performing Organization Address [facility] Co de Phone Number [address] [address] * Sodium, random urine (03/18/2025 10:01 AM EDT) Only the most recent of4 resultswithin the time period is included. URINE SODIUM <20 mmol/L [facility] Comment:Results must be inte rpreted based on patient context and with other clinical and laboratory data. Urine (Urine) 03/18/2025 10: 01 AM EDT 03/18/2025 10:12 AM EDT Daniella Gamboa Christel MEDICATION ASSISTANT LAB URINE ORDERABLES Angle l Result [address] [address] * (ABNORMAL) Ketone bodies, serum (03/18/2025 4:46 AM EDT) BETA HYDROXYBUTYRATE 0.5(H) <0.4 mmol/L [facility] Blood 03/18/2025 4:46 AM EDT 03/18/2025 5:03 AM EDT Carmelina Walden MEDICATION ASSISTANT LAB BLOOD BKR ORDERABLES Angle l Result Performing Organization Address [facility] Co de Phone Number [address] [address] * Cryoglobulins (03/18/2025 4:46 AM EDT) Only the most recent of2 resultswithin the time period is included. CRYOPROTEIN None present. [facility] Comment:Normal: None present Blood 03/18/2025 4:46 AM EDT 03/18/2025 5:03 AM EDT Carmelina Walden MEDICATION ASSISTANT LAB BLOOD ORDERABLES Final Re sult Performing Organization Address City/[facility] Co de Phone Number [address] [address] * Babesia species PCR (03/18/2025 12:22 AM EDT) B. Microti DNA, PCR Not Detected Not Detected [facility] Comment: A negative result indicates absence of detectable DNA from Babesia microti in the specimen but does not always rule out ongoing babesiosis since the parasitemia may be present at a very low level or may be sporadic.This test is not expected to detect non-microti Babesia species (e.g., B. duncani, B. divergens, B. divergens-like). This test was developed and its performance characteristics determined by the [facility] Microbiology Laboratory. It has not been cleared or approved by the U.S. Food and Drug Administration, but such licensure is not required since this laboratory is approved under CLIA for high complexity testing. Blood 03/18/2025 12:2 2 AM EDT 03/18/2025 3:53 AM EDT Carmelina Walden [facility] LAB BLOOD ORDERABLES Final Re sult Performing Organization Address [facility] Co de Phone Number [address] [address] * HIV-1 viral load (PCR) (03/18/2025 12:22 AM EDT) [facility] [facility] HIV-1 RNA PCR Not Detected Not Detected cp/mL [facility] Comment: Assay Range: 20-10,000,000 cp/ml Please refer any questions to the Molecular Diagnostics Lab at extension [phone]. This is a quantitative assay utilizing real-time PCR technology. Results of this test may be clinically useful in monitoring the clinical course or response to antiviral therapy in HIV-1 infected patients. This test is not approved for the diagnosis of HIV-1 infection. A test result of less than the lower limit of quantitation (LLoQ) (<20 cp/mL) should be interpreted as <20 HIV-1 RNA cp/mL. The result HIV-1 RNA not detected does not exclude HIV-1 infection. Blood (Blood) 03/18/2025 12: 22 AM EDT 03/18/2025 1:04 AM EDT Carmelina Walden [facility] LAB BLOOD BKR ORDERABLES Angle l Result Performing Organization Address [facility] Co de Phone Number [address] [address] * AFP (non-maternal specimens) (03/18/2025 12:22 AM EDT) [facility] AFP (NON-MATERNAL) <1.8 <7.9 ng/mL [facility] Comment: Note: Reference interval does not apply to newborns where very high levels are expected. Range for newborns is not available. This assay is performed on the Spencer Amanda 8000. Values obtained with different assay methods or kits cannot be used interchangably. The use of AFP as a tumor marker is not recommended in females. Serum levels of AFP, regardless of levels, should not be interpreted as absolute evidence of the presence or absence of disease. AFP is not intended for use as a cancer-screening test. Blood 03/18/2025 12:2 2 AM EDT 03/18/2025 12:49 AM EDT us Carmeilna Walden MEDICATION ASSISTANT LAB BLOOD BKR ORDERABLES Angle l Result [facility] [address] [place] [address] * CT HEAD WITHOUT CONTRAST (03/17/2025 10:09 PM EDT) Anatomical Region Laterality Modality Head Computed Tomogra phy 03/17/2025 10:1 7 PM EDT Impressions 03/17/2025 10:57 PM EDT No evidence of acute territorial infarction, hemorrhage, intracranial mass, or hydrocephalus. Chronic changes as described. ATTESTATION: I, Juventino Arellano as teaching physician, have reviewed the images for this case and if necessary edited the report originally created by Sudheer Kramer. Narrative 03/17/2025 10:[address] HEAD WITHOUT CONTRAST Referring clinician's provided indication for this examination in Epic: * Mental status change, unknown cause; 65 yo OSH admit with liver failure with INR 7, AMS, renal failure TECHNIQUE: Multidetector-row CT of the head was performed without intravenous contrast using tailored dose modulation techniques. Images were reconstructed in the axial, coronal, and sagittal planes. COMPARISON: CT HEAD (CODE STROKE) WITHOUT CONTRAST ; MRI BRAIN (MS) WITH AND WITHOUT CONTRAST FINDINGS: Brain Parenchyma: No midline shift, mass effect, parenchymal hemorrhage, or evidence of acute territorial infarct. Small focus of encephalomalacia is noted in the left precentral gyrus, unchanged from prior exam likely representing sequelae of old insult. There are areas of hypodensity in the periventricular white matter, likely representing a combination of chronic small vessel disease and known demyelinating lesions. Ventricular System and Extra-Axial Spaces: The ventricles and sulci are prominent. No extra-axial fluid collections. Basilar cisterns are patent. No hydrocephalus. Vascular calcifications are seen in the carotid siphons and in the intracranial vertebral arteries bilaterally. Osseous and Extracranial Structures: No significant paranasal sinus disease. Patient is status post right lens replacement. The middle ear cavities and the mastoid air cells are clear. Procedure Note Juventino Arellano MD - 03/17/2025 CT HEAD WITHOUT CONTRAST Referring clinician's provided indication for this examination in [facility]: *Mental status change, unknown cause; 65 yo OSH admit with liver failurewith INR 7, AMS, renal failure TECHNIQUE: Multidetector-row CT of the head was performed withoutintravenous contrast using tailored dose modulation techniques. Imageswere reconstructed in the axial, coronal, and sagittal planes. COMPARISON: CT HEAD (CODE STROKE) WITHOUT CONTRAST ; MRI BRAIN(MS) WITH AND WITHOUT CONTRAST FINDINGS: Brain Parenchyma: No midline shift, mass effect, parenchymal hemorrhage,or evidence of acute territorial infarct. Small focus of encephalomalaciais noted in the left precentral gyrus, unchanged from prior exam likelyrepresenting sequelae of old insult. There are areas of hypodensity in the periventricular white matter, likelyrepresenting a combination of chronic small vessel disease and knowndemyelinating lesions. Ventricular System and Extra-Axial Spaces: The ventricles and sulci areprominent. No extra-axial fluid collections. Basilar cisterns are patent.No hydrocephalus. Vascular calcifications are seen in the carotid siphonsand in the intracranial vertebral arteries bilaterally. Osseous and Extracranial Structures: No significant paranasal sinusdisease. Patient is status post right lens replacement. The middle earcavities and the mastoid air cells are clear. IMPRESSION: No evidence of acute territorial infarction, hemorrhage, intracranialmass, or hydrocephalus. Chronic changes as described. ATTESTATION: IJuventino as teaching physician, have reviewed theimages for this case and if necessary edited the report originally createdby Sudheer Kramer. Carmelina Walden CNP IM CT HEAD/NECK Final Result * Ehrlichia/anaplasma PCR (03/17/2025 8:10 PM EDT) ANAPLASMA PHAGOCYTO Negative Negative [facility] DPT OF LAB MED AND PAT+ EHRLICHIA CHAFFEENS Negative Negative [facility] DPT OF LAB MED AND PAT+ EHRL EWINGII/CANIS Negative Negative [facility] DPT OF LAB MED AND PAT+ EHRL MURIS-LIKE Negative Negative [facility] DPT OF LAB MED AND PAT+ Comment: (NOTE) ADDITIONAL INFORMATION This test was developed and its performance characteristics determined by [facility] in a manner consistent with CLIA requirements. This test has not been cleared or approved by the U.S. Food and Drug Administration. Blood 03/17/2025 8:10 PM EDT 03/17/2025 8:31 PM EDT Carmelina Walden [facility] LAB BLOOD ORDERABLES Final Re sult [facility] DPT OF LAB MED AND PAT+ [address] [place] [address] * (ABNORMAL) LDH (03/17/2025 8:10 PM EDT) Only the most recent of3 resultswithin the time period is included. LDH 556(H) 110 - 210 U/L [facility] Comment:Hemolysis present, r esult falsely increased. Blood 03/17/2025 8:10 PM EDT 03/17/2025 8:31 PM EDT Carmelina Walden [facility] LAB BLOOD BKR ORDERABLES Angle l Result [facility] [address] [place] [address] * Haptoglobin (03/17/2025 8:10 PM EDT) Only the most recent of3 resultswithin the time period is included. HAPTOGLOBIN 152 30 - 200 mg/dL [facility] Blood 03/17/2025 8:10 PM EDT 03/17/2025 8:31 PM EDT Carmelina Walden [facility] LAB BLOOD BKR ORDERABLES Angle l Result [address] [address] * CPK (creatine kinase) (03/17/2025 8:10 PM EDT) CREATINE KINASE 87 40 - 150 U/L [facility] 03/17/2025 8:10 PM EDT 03/17/2025 8:31 PM EDT Ptarick Troncoso MD LAB BLOOD BKR ORDERABL ES Final Result Performing Organization Address [facility]/ZIP Co de Phone Number [address] [address] * Phosphatidylethanol (03/17/2025 8:02 PM EDT) PEth 16:0/18:1 (POPEth) by LC-MS/MS <10 Cutoff: 10 ng/mL [facility] Comment: (NOTE) Phosphatidylethanol (PEth) homologues result interpretation PEth 16:0/18:1 (POPEth) Less than 10 ng/mL: Not detected 10 - 19 ng/mL: Abstinence or light alcohol consumption (<2 drinks per day for several days a week) 20 - 200 ng/mL: Moderate alcohol consumption (up to 4 drinks per day for several days a week) Greater than 200 ng/mL: Heavy alcohol consumption or chronic alcohol use (at least 4 drinks per day several days a week) (Reference: Loreto Sweet and Fabricio Mg 2018 J. Forensic Sci) PEth 16:0/18:2 (PLPEth) by LC-MS/MS <10 Cutoff: 10 ng/mL [facility] Comment: (NOTE) PEth 16:0/18:2 (PLPEth) Reference ranges are not well established PEth Interpretation Negative. [facility] Comment: (NOTE) ADDITIONAL INFORMATION This report is intended for use in clinical monitoring and management of patients. It is not intended for use in employment-related testing. This test was developed and its performance characteristics determined by [facility] in a manner consistent with CLIA requirements. This test has not been cleared or approved by the U.S. Food and Drug Administration. Blood 03/17/2025 8:02 PM EDT 03/17/2025 8:32 PM EDT Carmelina Walden [facility] LAB BLOOD BKR ORDERABLES Angle l Result [facility] [address] [place] [address] * Hepatitis A antibody, IgM (03/17/2025 8:02 PM EDT) Hepatitis A Antibody, IgM Negative Negative [facility] Comment:IgM anti-HAV not det ected. Does not exclude the possibility of exposure to or infection with HAV. Levels of IgM anti-HAV may be below the cut-off in early infection. Blood 03/17/2025 8:02 PM EDT 03/17/2025 8:32 PM EDT Carmelina Walden [facility] LAB BLOOD BKR ORDERABLES Angle l Result Performing Organization Address [facility] Co de Phone Number [address] [address] * Basic serum toxicology (03/17/2025 8:02 PM EDT) SALICYLATES <0.3 0.0 - 20.0 mg/dL [facility] ACETAMINOPHEN <5.0 0.0 - 25.0 ug/mL [facility] ETHANOL Negative Negative mg/dL [facility] TRICYCLIC Negative Negative [facility] Blood 03/17/2025 8:02 PM EDT 03/17/2025 8:32 PM EDT Carmelina Walden [facility] LAB BLOOD BKR ORDERABLES Angle l Result Performing Organization Address City/[facility]/ZIP Co de Phone Number [address] [address] * (ABNORMAL) Toxicology screen, urine (03/17/2025 8:02 PM EDT) URINE AMPHETAMINES Positive(A) Negative [facility] Comment:A false positive res ult can be caused by use of Labetalol, Ranitidine, or Trazodone. URINE BENZODIAZEPINE Positive(A) Negative [facility] URINE COCAINE METAB Negative Negative [facility] URINE OPIATES Positive(A) Negative [facility] URINE OXYCODONE Negative Negative [facility] Fentanyl, urine Negative Negative [facility] URINE CREATININE 132 mg/dL [facility] Urine (Urine) 03/17/2025 8:0 2 PM EDT 03/17/2025 9:47 PM EDT Carmelina Walden CNP LAB URINE ORDERABLES Final Re sult Performing Organization Address [facility] Co de Phone Number [address] [address] * Urinalysis (03/17/2025 8:02 PM EDT) Only the most recent of2 resultswithin the time period is included. COLOR Yellow Yellow [facility] CLARITY Clear Clear [facility] GLUCOSE Negative Negative [facility] BILI Negative Negative [facility] KETONES Negative Negative [facility] SPECIFIC GRAVITY 1.017 1.001 - 1.035 [facility] BLOOD Negative Negative [facility] PH 5.0 5.0 - 9.0 [facility] Protein-UA Negative Negative [facility] UROBILINOGEN Negative Negative [facility] NITRITE Negative Negative [facility] Leukocyte esterase, ur Negative Negative [facility] Urine (Urine) 03/17/2025 8:0 2 PM EDT 03/17/2025 9:47 PM EDT Carmelina Walden CNP LAB URINE ORDERABLES Final Re sult Performing Organization Address [facility] Co de Phone Number [address] [address] * Acetaminophen level (03/17/2025 8:02 PM EDT) ACETAMINOPHEN <5.0 0.0 - 25.0 ug/mL [facility] Blood 03/17/2025 8:02 PM EDT 03/17/2025 8:32 PM EDT Carmelina Walden CNP LAB BLOOD BKR ORDERABLES Angle l Result Performing Organization Address City/[facility]/ZIP Co de Phone Number [address] [address] * ABO and Rh (03/17/2025 7:47 PM EDT) Expiration Date of Sample 03/20/2025 11:59 PM [facility] ABO A 03/17/2025 8:51 PM EDT [facility] Rh Positive 03/17/2025 8:51 PM EDT [facility] Resulting Agency [facility] 03/17/2025 7:47 PM EDT 03/17/2025 7:52 PM EDT Blood Bank LAB BLOOD BANK TEST ORDERABLES F inal Result Performing Organization Address [facility] Co de Phone Number [address] [address] * Vancomycin Resistant Enterococci (VRE), Rectal Screen (03/17/2025 7:44 PM EDT) Special Requests No Special Requests 03/17/2025 7:44 PM EDT [facility] VRE Rectal Culture NEGATIVE FOR VRE 03/19/2025 7:56 AM EDT [facility] Stool (Stool swab) 03/17/2025 7:44 PM EDT 03/17/2025 10:01 PM EDT Carmelina Walden MEDICATION ASSISTANT LAB MICROBIOLOGY CULTURE ORDE RABLES Final Result [address] [address] * (ABNORMAL) D-dimer (03/17/2025 1:37 PM EDT) D-DIMER 6,286(H) <500 ng/mL FEU [facility] Comment:In patients with low to moderate pre-test probability scores for VTE (PE or DVT), a D-Dimer cut-off less than 500 ng/mL (FEU) has a negative predictive value (NPV) of 97 to 100%. Blood 03/17/2025 1:37 PM EDT 03/17/2025 1:55 PM EDT us Quiana Hernandez MD LAB BLOOD BKR ORDERABLES Fi nal Result [facility] [address] [place] [address] * CT ABDOMEN/PELVIS WITHOUT CONTRAST (03/17/2025 11:56 AM EDT) Anatomical Region Laterality Modality Abdomen, Pelvis Computed Tomogra phy 03/17/2025 11:5 7 AM EDT Impressions 03/17/2025 12:22 PM EDT 1. Small right pleural effusion with adjacent atelectasis. 2. Diffuse subcutaneous edema, new from prior study. 3. Probable circumferential colonic wall thickening involving the ascending colon suggesting colitis in the correct clinical scenario, follow-up to resolution advised. No pneumatosis or bowel obstruction. 4. No biliary ductal dilatation or hydronephrosis. Narrative 03/17/2025 12:[address] ABDOMEN/PELVIS WITHOUT CONTRAST Referring clinician's provided indication for this examination in Epic: * Abdominal pain, acute, nonlocalized TECHNIQUE: Multidetector-row CT of the abdomen and pelvis was performed without intravenous contrast using tailored dose modulation techniques. Images were reconstructed in the axial, coronal, and sagittal planes. COMPARISON: Prior studies including 07/20/2024 ABSENCE OF INTRAVENOUS CONTRAST DECREASES SENSITIVITY FOR DETECTION OF FOCAL LESIONS AND VASCULAR PATHOLOGY. FINDINGS: Lower Chest: Small right pleural effusion with adjacent atelectasis. Liver: No focal lesions, within the limitations of this unenhanced technique. Biliary: No biliary ductal dilatation. Cholecystectomy. Spleen: The spleen is nonenlarged. Pancreas: No pancreatic ductal dilatation or peripancreatic inflammation. Adrenal Glands: No nodules. Kidneys/Ureters: No hydronephrosis or radiopaque renal/ureteral stone. . Bowel: Rectosigmoid anastomosis. No bowel obstruction. There is probable circumferential colonic wall thickening involving the ascending colon with adjacent stranding suggesting colitis. Peritoneum/Retroperitoneum: No free intraperitoneal gas or fluid collection. Lymph Nodes: No enlarged abdominal or pelvic lymph nodes. Pelvic Organs/Bladder: No mass. Vessels: No abdominal aortic aneurysm. Bones/Soft Tissues: Degenerative disc changes in the lumbar spine without destructive bone lesion. Diffuse subcutaneous edema, new from prior study. Procedure Note Sukh Guajardo MD - 03/17/2025 CT ABDOMEN/PELVIS WITHOUT CONTRAST Referring clinician's provided indication for this examination in Epic: *Abdominal pain, acute, nonlocalized TECHNIQUE: Multidetector-row CT of the abdomen and pelvis was performedwithout intravenous contrast using tailored dose modulation techniques.Images were reconstructed in the axial, coronal, and sagittal planes. COMPARISON: Prior studies including 07/20/2024 ABSENCE OF INTRAVENOUS CONTRAST DECREASES SENSITIVITY FOR DETECTION OFFOCAL LESIONS AND VASCULAR PATHOLOGY. FINDINGS: Lower Chest: Small right pleural effusion with adjacent atelectasis. Liver: No focal lesions, within the limitations of this unenhancedtechnique. Biliary: No biliary ductal dilatation. Cholecystectomy. Spleen: The spleen is nonenlarged. Pancreas: No pancreatic ductal dilatation or peripancreaticinflammation. Adrenal Glands: No nodules. Kidneys/Ureters: No hydronephrosis or radiopaque renal/ureteral stone. . Bowel: Rectosigmoid anastomosis. No bowel obstruction. There is probable circumferential colonic wall thickening involving theascending colon with adjacent stranding suggesting colitis. Peritoneum/Retroperitoneum: No free intraperitoneal gas or fluidcollection. Lymph Nodes: No enlarged abdominal or pelvic lymph nodes. Pelvic Organs/Bladder: No mass. Vessels: No abdominal aortic aneurysm. Bones/Soft Tissues: Degenerative disc changes in the lumbar spine withoutdestructive bone lesion. Diffuse subcutaneous edema, new from prior study. IMPRESSION: 1. Small right pleural effusion with adjacent atelectasis. 2. Diffuse subcutaneous edema, new from prior study. 3. Probable circumferential colonic wall thickening involving theascending colon suggesting colitis in the correct clinical scenario,follow-up to resolution advised. No pneumatosis or bowel obstruction. 4. No biliary ductal dilatation or hydronephrosis. us Quiana Hernandez MD IMG CT ABD/PELVIS Final Res ult * Rheumatoid factor (03/17/2025 7:51 AM EDT) Pathologist [facility] RHEUMATOID FACTOR 10.9 0.0 - 14.0 IU/ml [facility] Blood 03/17/2025 7:51 AM EDT 03/17/2025 8:33 AM EDT us Quiana Hernandez MD LAB BLOOD BKR ORDERABLES Fi nal Result [address] [address] * (ABNORMAL) MONOCLONAL PROTEIN STUDY, RANDOM URINE (03/16/2025 10:52 AM EDT) Pathologist [facility] M-Protein Isotope MS, Random, U No monoclonal protein detected. [facility] Comment: (NOTE) ADDITIONAL INFORMATION The submitted sample was assayed by five separate immunopurifications for IgG, IgA, IgM, kappa and lambda. The result reflects the findings of either no monoclonal protein detected or those monoclonal immunoglobulins that were detected. This test was developed and its performance characteristics determined by [facility] in a manner consistent with CLIA requirements. This test has not been cleared or approved by the U.S. Food and Drug Administration. Flag M-Protein Isotope MS, Random, U Negative Negative [facility] [address] Albumin 48.8 mg/dL [facility] [address] Alpha-1 Globulin 1.6 mg/dL [facility] [address] Alpha-2 Globulin 8.0 mg/dL [facility]PATH [address] Beta Globulin 11.2 mg/dL [facility] LAB MED/PATH [address] DR Gamma Globulin 9.6 mg/dL [facility]PATH [address] DR A/G RATIO 1.61 % [facility] LAB MED/PATH [address] DR Waters SPIKE Test component not applicable or not reported. [facility] MED/PATH [address] Waters SPIKE Test component not applicable or not reported. [facility] IMPRESSION SEE NOTE [facility] Comment: (NOTE) All fractions present, no apparent M-spike. See Isotype. ADDITIONAL INFORMATION This test has been modified from the campus recruiting internship's instructions. Its performance characteristics were determined by [facility] in a manner consistent with CLIA requirements. This test has not been cleared or approved by the U.S. Food and Drug Administration. Protein, Total, Random, U 80 mg/dL [facility] DPT OF LAB MED AND PAT+ Creatinine, Random, U 167 16 - 326 mg/dL [facility] DPT OF LAB MED AND PAT+ Protein/Creatinine Ratio 0.48(H) <0.18 mg/mg [facility] DPT OF LAB MED AND PAT+ Urine (Urine) 03/16/2025 10: 52 AM EDT 03/16/2025 9:03 PM EDT Quiana Hernandez MD URINE ORDERABLES Final Resu lt Performing Organization Address City/[facility]/ZIP Co de Phone Number [facility] DPT OF LAB MED AND PAT+ [address] [place] [address] [facility] [address] [place] [address] * (ABNORMAL) Fecal immunochemical test x1 (FIT) (03/16/2025 7:31 AM EDT) Immuno Fecal Occult Positive(A ) Negative [facility] Stool (Stool) 03/16/2025 7:3 1 AM EDT 03/17/2025 8:39 AM EDT Sarah Pandya MD, PhD LAB BODY FLUIDS AND STOOL OR DERABLES Final Result Performing Organization Address City/[facility]/ZIP Co de Phone Number [facility] [address] [place] [address] * (ABNORMAL) 25-OH vitamin D (03/16/2025 5:56 AM EDT) 25 OH VIT D (TOTAL) 101(H) 30 - 60 ng/mL [facility] Blood 03/16/2025 5:56 AM EDT 03/16/2025 6:11 AM EDT us Sarah Pandya MD, PhD LAB BLOOD BKR ORDERABLES Fin al Result Performing Organization Address City/[facility]/ZIP Co de Phone Number [facility] [address] [place] [address] * Glomerular basement membrane (GBM) antibody (03/15/2025 5:40 PM EDT) GBM AB <0.2 <1.0 (Negative) U [facility] Blood 03/15/2025 5:40 PM EDT 03/15/2025 5:53 PM EDT us Sarah Pandya MD, PhD LAB BLOOD ORDERABLES Final R esult Performing Organization Address [facility] Co de Phone Number [facility] [address] [place] [address] * ANTISTREPTOLYSIN O (ASO) SCREEN (03/15/2025 5:40 PM EDT) ANTISTREP O TITER <20 0 - 530 IU/mL [facility] Blood (Blood) 03/15/2025 5:4 0 PM EDT 03/15/2025 5:57 PM EDT us Sarah Pandya MD, PhD LAB BLOOD BKR ORDERABLES Fin al Result Performing Organization Address City/[facility]/ZIP Co de Phone Number [facility] [address] [place] [address] * Liver kidney microsomal (LKM1) antibodies (03/15/2025 5:40 PM EDT) LKM1 ANTIBODIES <5.0 <=20.0 (Negative) U [facility] Blood 03/15/2025 5:40 PM EDT 03/15/2025 5:57 PM EDT Sarah Pandya MD, PhD LAB BLOOD ORDERABLES Final R esult Performing Organization Address City/[facility] Co de Phone Number [facility] [address] [place] [address] * Double stranded DNA antibodies (03/15/2025 5:40 PM EDT) ANTI DSDNA ANTIBODY Negative at 1:10 [facility] Comment: Performing Pathologist, Zelda Rainey M.D., Ph.D. [id number] Normal: Negative at 1:10 To interpret a negative test for anti-beaver or double stranded DNA antibodies in a patient suspected of having systemic lupus erythematosus, the following limitation should be noted. Anti-double stranded DNA antibodies are usually detected in SLE patients with active disease, especially in those with active renal disease. Anti-DNA antibodies are usually not detected in SLE patients with spontaneous or drug-induced remissions. Blood 03/15/2025 5:40 PM EDT 03/15/2025 5:56 PM EDT Sarah Pandya MD, PhD LAB BLOOD BKR ORDERABLES Fin al Result Performing Organization Address [facility] Co de Phone Number [address] [address] * Anti-Neutrophil Cytoplasmic Antibody (ANCA) (03/15/2025 5:40 PM EDT) C-ANCA Negative Negative [facility] P-ANCA Negative Negative [facility] Comment: (NOTE) Negative for cANCA and pANCA patterns by immunofluorescence. ADDITIONAL INFORMATION This test was developed and its performance characteristics determined by [facility] in a manner consistent with CLIA requirements. This test has not been cleared or approved by the U.S. Food and Drug Administration. Blood 03/15/2025 5:40 PM EDT 03/15/2025 5:53 PM EDT us Sarah Pandya MD, PhD LAB BLOOD BKR ORDERABLES Fin al Result [facility] [address] [place] [address] * XR Chest Portable (03/15/2025 8:06 AM EDT) Anatomical Region Laterality Modality Chest Computed Radiogr aphy 03/15/2025 8:16 AM EDT Impressions 03/15/2025 8:21 AM EDT Trace right pleural effusion. Narrative 03/15/2025 8:21 AM EDT XR CHEST PORTABLE Referring clinician's provided indication for this examination in [facility]: Infection COMPARISON: XR CHEST 1 VIEW ; XR CHEST PORTABLE ; XR CHEST 1 VIEW ; XR CHEST 1 VIEW FINDINGS: Devices/Tubes/Lines: None. Lungs: Linear atelectasis right lung base. No focal consolidation or pulmonary edema. Pleura: Trace right pleural effusion. No pneumothorax. Heart/Mediastinum: Mildly enlarged cardiac silhouette, unchanged. Scattered thoracic aortic calcifications. Bones/Soft Tissues: Mild spondylosis. Procedure Note Patrick Woods MD - 03/15/2025 XR CHEST PORTABLE Referring clinician's provided indication for this examination in [facility]:Infection COMPARISON: XR CHEST 1 VIEW ; XR CHEST PORTABLE ; XRCHEST 1 VIEW ; XR CHEST 1 VIEW FINDINGS: Devices/Tubes/Lines: None. Lungs: Linear atelectasis right lung base. No focal consolidation orpulmonary edema. Pleura: Trace right pleural effusion. No pneumothorax. Heart/Mediastinum: Mildly enlarged cardiac silhouette, unchanged.Scattered thoracic aortic calcifications. Bones/Soft Tissues: Mild spondylosis. IMPRESSION: Trace right pleural effusion. us Sarah Pandya MD, PhD IMG XR CHEST Final Result * TSH (03/15/2025 5:38 AM EDT) TSH 3.24 0.27 - 4.20 uIU/mL [facility] 03/15/2025 5:38 AM EDT 03/15/2025 5:51 AM EDT us Sarah Pandya MD, PhD LAB BLOOD BKR ORDERABLES Fin al Result Performing Organization Address [facility]/ZIP Co de Phone Number [address] [address] * Smear for eosinophils (03/14/2025 1:59 PM EDT) Neutrophils (manual) Few [facility] SMEAR FOR EOS None None [facility] Specimen Source/Descripti on RANDOM URINE [facility] 03/14/2025 1:59 PM EDT 03/14/2025 2:44 PM EDT us Antolin Bucio MD LAB BLOOD ORDERABLES Final Resul t Performing Organization Address [facility] Co de Phone Number [address] [address] * (ABNORMAL) TOTAL PROTEIN CREATININE RATIO, RANDOM URINE (03/14/2025 1:59 PM EDT) URINE TOTAL PROTEIN 57.0 mg/dL [facility] URINE CREATININE 215 mg/dL [facility] URINE TP CRE RATIO 0.27(H) 0 - 0.19 [facility] 03/14/2025 1:59 PM EDT 03/15/2025 9:03 AM EDT us Tim Grossman MD LAB URINE ORDERABLES Angle l Result Performing Organization Address [facility] Co de Phone Number [address] [address] * Osmolality, Random Urine (03/14/2025 1:59 PM EDT) URINE OSMOLALITY 367 mOsm/kg water [facility] Urine (Urine) 03/14/2025 1:5 9 PM EDT 03/14/2025 2:44 PM EDT us Sarah Pandya MD, PhD LAB URINE ORDERABLES Final R esult Performing Organization Address [facility] de Phone Number [address] [address] * Creatinine, random urine (03/14/2025 1:59 PM EDT) Only the most recent of2 resultswithin the time period is included. URINE CREATININE 210 mg/dL [facility] Urine (Urine) 03/14/2025 1:5 9 PM EDT 03/14/2025 2:44 PM EDT us Antolin Bucio MD LAB URINE ORDERABLES Final Resul t Performing Organization Address [facility] de Phone Number [address] [address] * US Kidneys and Bladder (03/12/2025 9:54 AM EDT) Anatomical Region Laterality Modality Abdomen, Kidney Ultrasound 03/12/2025 11:4 8 AM EDT Impressions 03/12/2025 11:50 AM EDT 1. No hydronephrosis. 2. Small volume ascites. Narrative 03/12/2025 11:50 AM EDT US KIDNEYS AND BLADDER Referring clinician's provided indication for this examination in Epic: Renal failure, acute TECHNIQUE: Kidney Ultrasound. COMPARISON: MRI CHOLANGIOPANCREATOGRAPHY (MRCP) WITHOUT CONTRAST FINDINGS: Right Kidney: Size: 8.7 cm No stones or hydronephrosis. Left Kidney: Size: 9.3 cm No stones or hydronephrosis. Bladder: Not well distended. Small volume ascites. Procedure Note Patrick Woods MD - 03/12/2025 US KIDNEYS AND BLADDER Referring clinician's provided indication for this examination in Epic:Renal failure, acute TECHNIQUE: Kidney Ultrasound. COMPARISON: MRI CHOLANGIOPANCREATOGRAPHY (MRCP) WITHOUT [id number] FINDINGS: Right Kidney: Size: 8.7 cm No stones or hydronephrosis. Left Kidney: Size: 9.3 cm No stones or hydronephrosis. Bladder: Not well distended. Small volume ascites. IMPRESSION: 1. No hydronephrosis. 2. Small volume ascites. us Jeniffer Moy MD [facility] US RENAL Final Result * Antinuclear antibody, titer and pattern (03/12/2025 5:43 AM EDT) GILBERTO TITER 1:160 Nucleolar [facility] 03/12/2025 5:43 AM EDT 03/12/2025 5:55 AM EDT us Mark Steele MD LAB BLOOD BKR ORDERABLES Fin al Result [address] [address] * Smooth Muscle Antibody (03/12/2025 5:43 AM EDT) ANTI-SMOOTH MUSCLE AB Negative Negative [facility] [address] Comment: (NOTE) Negative: No further testing will be performed ADDITIONAL INFORMATION This test was developed and its performance characteristics determined by [facility] in a manner consistent with CLIA requirements. This test has not been cleared or approved by the U.S. Food and Drug Administration. Blood 03/12/2025 5:43 AM EDT 03/12/2025 5:55 AM EDT us Mark Steele MD LAB BLOOD ORDERABLES Final R esult Performing Organization Address [facility]/ZIP Co de Phone Number [facility] [address] [place] [address] * (ABNORMAL) Antinuclear antibody (GILBERTO) (03/12/2025 5:43 AM EDT) GILBERTO SCREEN ON HEP 2 Positive(A ) Negative [facility] Comment: Atypical GILBERTO pattern observed, further testing may be indicated. An GILBERTO Titer has been reflexed. The results will follow. Blood 03/12/2025 5:43 AM EDT 03/12/2025 5:55 AM EDT us Mark Steele MD LAB BLOOD BKR ORDERABLES Fin al Result Performing Organization Address [facility] de Phone Number [address] [address] * MRI CHOLANGIOPANCREATOGRAPHY (MRCP) WITHOUT CONTRAST (03/11/2025 9:58 PM EDT) Anatomical Region Laterality Modality Pancreas, Biliary Magnetic Reson ance 03/12/2025 9:28 AM EDT Impressions 03/12/2025 9:38 AM EDT 1. No choledocholithiasis. 2. Mild periportal edema, small volume ascites, small right pleural effusion and body wall edema, may represent third spacing. 3. Mild hepatic steatosis. Narrative 03/12/2025 9:38 AM EDT MRI CHOLANGIOPANCREATOGRAPHY (MRCP) WITHOUT CONTRAST Referring clinician's provided indication for this examination in Epic: * Cholelithiasis TECHNIQUE: Multiplanar MR imaging of the abdomen was performed using T1, T2, fat saturated, and diffusion weighted techniques. 2D and 3D MRCP sequences were performed. No intravenous contrast was administered. COMPARISON: CT ABDOMEN/PELVIS WITHOUT CONTRAST ABSENCE OF INTRAVENOUS CONTRAST DECREASES SENSITIVITY FOR DETECTION OF FOCAL LESIONS AND VASCULAR PATHOLOGY. FINDINGS: Lower Chest: Small right pleural effusion. Liver: Mild signal loss on opposed phase imaging consistent with mild fatty liver. Mild periportal edema. No suspicious focal lesions on this noncontrast exam. Biliary: Cholecystectomy. 8 mm extrahepatic duct, without obstructing process visualized. No choledocholithiasis. Spleen: No splenomegaly or focal lesion. Pancreas: Mild diffuse parenchymal atrophy, without ductal dilatation or focal lesion. Adrenal Glands: No nodules. Kidneys/Ureters: Small simple bilateral renal cysts. No definite solid mass or hydronephrosis. Bowel: Small hiatal hernia. No inflammation or obstruction evident. Peritoneum/Retroperitoneum: Small volume ascites. Lymph Nodes: Stable 12 mm periportal lymph node. No suspicious lymph nodes in the upper abdomen. Vessels: No abdominal aortic aneurysm. Bones/Soft Tissues: Mild body wall edema. No suspicious marrow replacing lesions. Procedure Note Patrick Woods MD - 03/12/2025 MRI CHOLANGIOPANCREATOGRAPHY (MRCP) WITHOUT CONTRAST Referring clinician's provided indication for this examination in Epic: *Cholelithiasis TECHNIQUE: Multiplanar MR imaging of the abdomen was performed using T1,T2, fat saturated, and diffusion weighted techniques. 2D and 3D MRCPsequences were performed. No intravenous contrast was administered. COMPARISON: CT ABDOMEN/PELVIS WITHOUT CONTRAST ABSENCE OF INTRAVENOUS CONTRAST DECREASES SENSITIVITY FOR DETECTION OFFOCAL LESIONS AND VASCULAR PATHOLOGY. FINDINGS: Lower Chest: Small right pleural effusion. Liver: Mild signal loss on opposed phase imaging consistent with mildfatty liver. Mild periportal edema. No suspicious focal lesions on thisnoncontrast exam. Biliary: Cholecystectomy. 8 mm extrahepatic duct, without obstructingprocess visualized. No choledocholithiasis. Spleen: No splenomegaly or focal lesion. Pancreas: Mild diffuse parenchymal atrophy, without ductal dilatation orfocal lesion. Adrenal Glands: No nodules. Kidneys/Ureters: Small simple bilateral renal cysts. No definite solidmass or hydronephrosis. Bowel: Small hiatal hernia. No inflammation or obstruction evident. Peritoneum/Retroperitoneum: Small volume ascites. Lymph Nodes: Stable 12 mm periportal lymph node. No suspicious lymph nodesin the upper abdomen. Vessels: No abdominal aortic aneurysm. Bones/Soft Tissues: Mild body wall edema. No suspicious marrow replacinglesions. IMPRESSION: 1. No choledocholithiasis. 2. Mild periportal edema, small volume ascites, small right pleuraleffusion and body wall edema, may represent third spacing. 3. Mild hepatic steatosis. us Jeniffer Moy MD IMG MR ABDOMEN Final Result * US ABDOMEN LIMITED SINGLE ORGAN (03/11/2025 8:57 AM EDT) Anatomical Region Laterality Modality Abdomen Ultrasound 03/11/2025 9:09 AM EDT Impressions 03/11/2025 9:14 AM EDT 1. Limited examination due to patient's underlying condition and inability to appropriately position and breath hold. 2. Status post cholecystectomy. Common bile duct is mildly dilated measuring 8 mm in diameter likely due to postcholecystectomy state. Narrative 03/11/2025 9:14 AM EDT US ABDOMEN LIMITED ONE OR MORE ORGANS Referring clinician's provided indication for this examination in Epic: Cholecystitis TECHNIQUE: US Abdominal limited one or more organs. COMPARISON: CT dated 12/26/2023, 07/20/2024 FINDINGS: Limited examination due to patient's underlying condition and inability to appropriately position and breath hold. Within the limitations no focal hepatic lesions identified in the visualized liver. Main Portal Vein: Patent with normal direction of flow. Gallbladder: Surgically absent. Biliary: Common bile duct measures 8 mm in diameter. No dilated intrahepatic biliary ducts. No sonographic evidence for choledocholithiasis in the visualized bile ducts. Procedure Note Ryne Castaneda MD - 03/11/2025 US ABDOMEN LIMITED ONE OR MORE ORGANS Referring clinician's provided indication for this examination in Epic:Cholecystitis TECHNIQUE: US Abdominal limited one or more organs. COMPARISON: CT dated 12/26/2023, 07/20/2024 FINDINGS: Limited examination due to patient's underlying condition and inability toappropriately position and breath hold. Within the limitations no focal hepatic lesions identified in thevisualized liver. Main Portal Vein: Patent with normal direction of flow. Gallbladder: Surgically absent. Biliary: Common bile duct measures 8 mm in diameter. No dilated intrahepatic biliary ducts. No sonographic evidence forcholedocholithiasis in the visualized bile ducts. IMPRESSION: 1. Limited examination due to patient's underlying condition andinability to appropriately position and breath hold. 2. Status post cholecystectomy. Common bile duct is mildly dilatedmeasuring 8 mm in diameter likely due to postcholecystectomy state. us Mark Steele MD IMG US ABDOMEN Final Result * TTE COMPREHENSIVE (03/11/2025 8:48 AM EDT) Body Surface Area 1.64 m2 Height 158 cm Weight 64 kg Systolic BP 114 mmHg Diastolic BP 44 mmHg Interventricular Septum Thickness 8 6 - 11 mm Left Ventricle Internal Diameter End Diastole 46 37 - 52 mm Left Ventricle Internal Diameter End Systole 31 <35 mm Left Ventricular Outflow Tract Diameter 20.0 mm LVOT VTI REST 157.0 mm Left Ventricular Outflow Tract Velocity 0.8 m/s Left Ventricular Outflow Tract Gradient at Rest 2 mmHg Left Ventricular Posterior Wall Thickness 9 6 - 11 mm Left Ventricle Ea Lateral Wave Speed 11.1 cm/s Left Ventricle Ea Septal Wave Speed 6.9 cm/s Ejection Fraction 54 50 - 75 Percent Aortic Valve Mean Gradient 4 mmHg Aortic Valve Time Velocity Integral 301.0 mm Aortic Valve Peak Velocity 1.3 m/s Aortic Valve Peak Gradient 7 mmHg Aortic Sinus Diameter 32 <40 mm Ascending Aorta Diameter 34 <36 mm Left Ventricle A Wave Speed 31.2 cm/s Left Ventricle E Wave Speed 132.0 cm/s Mitral Valve Mean Gradient 2 mmHg Mitral Valve Peak Gradient 8 mmHg Mitral Valve Area Continuity Equation 1.50 cm2 Pulmonary Valve Peak Velocity 1.3 m/s Pulmonary Valve Peak Gradient 7 mmHg Right Ventricle Basal Diameter 43 25 - 41 mm Tricuspid Valve Peak Velocity 2.9 m/s Raw LV EF% 55 % MV E/E' Tissue Velocity Lateral 11.89 Relative Wall Thickness 0.39 0.22 - 0.42 Left Ventricle indexed to BSA 77.8 g/m2 MV E/A ratio 4.2 MV E/e' septal 19.13 Left Ventricle E/e' Average 15.5 Aortic Valve Prosthetic Peak Gradient 7 mmHg Aortic Valve Prosthetic Mean Gradient 4 mmHg Aortic Valve Sinus Index by BSA 20 mm/m2 Aorta Sinus Index by Height 2.03 cm/m Aorta Sinus CSA index by Height 5.09 cm2/m Ascending Aorta Index 21 mm/m2 Asc Aorta CSA Index by Height 5.74 cm2/m Mitral Valve Prosthetic Peak Gradient 8 mmHg Mitral Valve Prosthetic Mean Gradient 2 mmHg Right Ventricle to Right Atrium Pressure Gradient 34 mmHg Right Ventricle Peak Systolic Pressure (Assuming RAP 10) 44 mmHg MGB CV ECHO TV RVSP (ASSUMING RAP OF 5) 39 mmHg RVSP (Exclusive of RAP) 34 mmHg Pulmonic Valve Prosthetic Peak Gradient 7 mmHg MGB CV AV DIMENSIONLESS INDEX (PEAK) - STRESS ECHO DOBUT - REST 0.62 Ascending Aorta Index 21 mm Aortic Sinus Index 20 mm Ascending Aorta Diameter 21 mm Aortic Valve Sinus Index 1 20 19 - 27 mm AO ASC DIAM BSA INDEX 20.73 Echo E/Ea 19.13 Left Atrial Volume Index 46 16 - 34 mL/m2 Right Ventricle TAPSE 18 >=17 mm Right Ventricle Pulse Doppler S Wave 12.5 >=9.5 cm/s Left Atrial Volume 75 mL Left Atrial Volume Index by Height 47 mL/m Right Atrium Area 27 cm2 Right Atrium Area index 16 cm2/m2 Inferior Vena Cava Diameter 27 <21 mm Right Ventricle Peak Systolic Pressure 49 mmHg Right Atrium Pressure Estimated 15 mmHg Anatomical Region Laterality Modality Heart Ultrasound Narrative 03/11/2025 9:19 AM EDT Images from the original result were not included. 1. The indication is heart failure. This patient was imaged during sinus bradycardia. There is grade 1 diastolic impairment and normal left ventricular thickness. Regional wall motion was normal. 2. Mild to moderate dilatation to the RV cavity with mild RV dysfunction. 3. Trileaflet aortic valve there is no evidence of aortic stenosis the ascending aortic root is 34 mm. 4. Moderate mitral and moderate to severe tricuspid insufficiency, the PA pressure on the study is moderately elevated at approximately 50 mmHg. 5. Normal pericardium when compared to the prior echo the degree of mitral and tricuspid sufficiency has increased and the pulmonary artery pressure has increased as well. Left Ventricle The left ventricle is normal in size. There is normal wall thickness. Left ventricular systolic function is at the lower limits of normal. The LV ejection fraction is 54% (calculated via biplane measurement). There is abnormal diastolic function. The E/A ratio is 4.2. The e' septal wave velocity is 6.9 cm/s. The e' lateral wave velocity is 11.1 cm/s. The average E/e' ratio is 15.5. Right Ventricle The right ventricle is dilated. There is normal right ventricular systolic function. TAPSE is 18 mm. RV S' wave is 12.5 cm/s. Left Atrium The left atrium is dilated. The left atrial volume is 75 mL. The left atrial volume index by BSA is 46 mL/m2. Right Atrium The right atrium is dilated. The right atrial area is 27 cm2. The right atrial area index is 16 cm2/m2. The IVC is dilated with reduced inspiratory collapse. Mitral Valve There is mild mitral valve thickening. There is no mitral stenosis. There is moderate mitral regurgitation with a centrally directed jet. Tricuspid Valve There is no obvious structural abnormality. There is no tricuspid stenosis. There is moderate to severe tricuspid regurgitation. The RV systolic pressure was calculated at 49 mmHg (using TR peak velocity of 2.9 m/s and assuming an RA pressure of 15 mmHg). Aortic Valve The aortic valve is tricuspid. There is no aortic stenosis. There is trace aortic regurgitation. The aortic sinus diameter is 32 mm. The ascending aorta is mildly dilated. The ascending aortic diameter is 34 mm. The ascending aorta index by BSA is 21 mm/m2. Pulmonic Valve The pulmonic valve appears normal. There is no pulmonic stenosis. There is trace to mild pulmonic regurgitation. Pericardium There is no pericardial effusion. General Findings The image quality was fair (3). Technique(s) used in the evaluation: Color flow Doppler and Spectral Doppler. Consent was obtained from: patient The predominant rhythm during the study was sinus bradycardia. Patient tolerated the procedure well. No complications observed during the procedure. Comparison Findings Compared to prior TTE on 06/06/2023, IAS/IVS The interatrial septum is suboptimally visualized. us Naila Willisi DO CV ECHO ORDERABLES Final Resu lt * HEPATITIS A ANTIBODY, TOTAL (03/11/2025 5:33 AM EDT) Pathologist [facility] HAV TOTAL AB NON-REACTI VE NON-REACTI VE [facility] Blood 03/11/2025 5:33 AM EDT 03/11/2025 5:42 AM EDT Naila A Palauan DO LAB BLOOD BKR ORDERABLES Angle l Result Performing Organization Address City/[facility]/ZIP Co de Phone Number [address] [address] * Hepatitis C antibody, qualitative (03/11/2025 5:33 AM EDT) Pathologist [facility] HCV NON-REACTIV E NON-REACTI VE [facility] Blood 03/11/2025 5:33 AM EDT 03/11/2025 5:42 AM EDT Naila A Palauan DO LAB BLOOD BKR ORDERABLES Angle l Result Performing Organization Address [facility] Co de Phone Number [address] [address] * Iron and iron binding capacity (03/11/2025 5:33 AM EDT) [facility] IRON 39 30 - 160 ug/dL [facility] IRON BINDING CAPACITY 256 228 - 428 ug/dL [facility] TRANSFERRIN SATURAT. 15 15 - 50 % [facility] Blood 03/11/2025 5:33 AM EDT 03/11/2025 5:42 AM EDT Naila A Palauan DO LAB BLOOD BKR ORDERABLES Angle l Result Performing Organization Address City/[facility] Co de Phone Number [address] [address] * Jessica-Jacobs virus (EBV) PCR, blood (03/11/2025 5:33 AM EDT) Pathologist [facility] EBV Blood, PCR Undetected Undetected IU/mL [facility] Comment: (NOTE) Result in log IU/mL is Undetected. ADDITIONAL INFORMATION The quantification range of this assay is 35 to 100,000,000 IU/mL (1.54 log to 8.00 log IU/mL). Testing was performed using the amanda EBV test ([employer] Blood (Blood) 03/11/2025 5:3 3 AM EDT 03/11/2025 5:41 AM EDT Naila A Palauan DO LAB BLOOD BKR ORDERABLES Angle l Result Performing Organization Address City/[facility]/ZIP Co de Phone Number [facility] [address] [place] [address] * Hepatitis B core antibody, total (03/11/2025 5:33 AM EDT) [facility] HEP B CORE AB, TOT NON-REACTI VE NON-REACTI VE [facility] Blood 03/11/2025 5:33 AM EDT 03/11/2025 5:42 AM EDT Naila A Palauan DO LAB BLOOD BKR ORDERABLES Angle l Result Performing Organization Address City/[facility]/ZIP Co de Phone Number [address] [address] * Cytomegalovirus (CMV) PCR, blood (03/11/2025 5:33 AM EDT) Pathologist [facility] CMV DNA DETECT/QUANT Undetected Undetected IU/mL [facility] Comment: (NOTE) Result in log IU/mL is Undetected. ADDITIONAL INFORMATION The quantification range of this assay is 35 to 10,000,000 IU/mL (1.54 log to 7.00 log IU/mL). Testing was performed using the amanda CMV test ([employer] Blood (Blood) 03/11/2025 5:3 3 AM EDT 03/11/2025 5:41 AM EDT Naila A Palauan DO LAB BLOOD BKR ORDERABLES Angle l Result [facility] [address] [place] [address] * Hepatitis B surface antibody (03/11/2025 5:33 AM EDT) HBV SURFACE ANTIBODY NON-REACTI VE [facility] Comment: Unvaccinated: Non Reactive Vaccinated: Reactive Blood 03/11/2025 5:33 AM EDT 03/11/2025 5:42 AM EDT Naila A Palauan DO LAB BLOOD BKR ORDERABLES Angle l Result Performing Organization Address [facility] Co de Phone Number [address] [address] * Hepatitis B surface antigen (03/11/2025 5:33 AM EDT) HBV SURFACE ANTIGEN NON-REACTI VE NON-REACTI VE [facility] Blood 03/11/2025 5:33 AM EDT 03/11/2025 5:42 AM EDT [facility] A Palauan DO LAB BLOOD BKR ORDERABLES Angle l Result Performing Organization Address City/[facility] Co de Phone Number [address] [address] * Hemoglobin A1c (03/11/2025 5:33 AM EDT) HEMOGLOBIN A1C 5.8 4.3 - 5.8 % [facility] Blood 03/11/2025 5:33 AM EDT 03/11/2025 5:41 AM EDT Naila A Palauan DO LAB BLOOD BKR ORDERABLES Angle l Result Performing Organization Address City/[facility]/ZIP Co de Phone Number [address] [address] * Folate (03/11/2025 5:33 AM EDT) FOLIC ACID 5.5 4.2 - 19.9 ng/mL [facility] Blood 03/11/2025 5:33 AM EDT 03/11/2025 5:42 AM EDT Naila A Palauan DO LAB BLOOD BKR ORDERABLES Angle l Result Performing Organization Address [facility] Co de Phone Number [address] [address] * (ABNORMAL) Ferritin (03/11/2025 5:33 AM EDT) FERRITIN 197(H) 13 - 150 ug/L [facility] Blood 03/11/2025 5:33 AM EDT 03/11/2025 5:42 AM EDT Naila A Palauan DO LAB BLOOD BKR ORDERABLES Angle l Result Performing Organization Address [facility] Co de Phone Number [address] [address] * (ABNORMAL) Vitamin B12 (03/11/2025 5:33 AM EDT) VITAMIN B12 1,409(H) 232 - 1,245 pg/mL [facility] Blood 03/11/2025 5:3 3 AM EDT 03/11/2025 5:42 AM EDT Naila A Palauan DO LAB BLOOD BKR ORDERABLES Angle l Result Performing Organization Address City/[facility]/ZIP Co de Phone Number [address] [address] * POCT Glucose (03/10/2025 8:57 PM EDT) 03/10/2025 8:57 PM EDT Naila Young DO LAB POCT ENTER/EDIT ORDERABLE S Final Result * XR CHEST 1 VIEW (03/10/2025 2:43 PM EDT) Anatomical Region Laterality Modality Chest Computed Radiogr aphy 03/10/2025 3:39 PM EDT Impressions 03/10/2025 3:40 PM EDT No acute abnormality. Narrative 03/10/2025 3:40 PM EDT XR CHEST 1 VIEW Referring clinician's provided indication for this examination in [facility]: Fatigue; hypoxia on arrival COMPARISON: 03/07/2025 FINDINGS: Devices/Tubes/Lines: None. Lungs: No focal consolidation or pulmonary edema. Minimal right basilar atelectasis. Pleura: No pleural effusion or pneumothorax. Heart/Mediastinum: The heart and mediastinum are normal. Bones/Soft Tissues: No significant abnormality. Procedure Note Modesto Christianson MBBS - 03/10/2025 XR CHEST 1 VIEW Referring clinician's provided indication for this examination in [facility]:Fatigue; hypoxia on arrival COMPARISON: 03/07/2025 FINDINGS: Devices/Tubes/Lines: None. Lungs: No focal consolidation or pulmonary edema. Minimal right basilaratelectasis. Pleura: No pleural effusion or pneumothorax. Heart/Mediastinum: The heart and mediastinum are normal. Bones/Soft Tissues: No significant abnormality. IMPRESSION: No acute abnormality. Tim Grossman MD IMG XR CHEST Final Res ult * XR Chest Portable (03/07/2025 4:43 PM EDT) Anatomical Region Laterality Modality Chest Computed Radiogr aphy 03/07/2025 5:53 PM EDT Impressions 03/07/2025 5:53 PM EDT No acute abnormality. Narrative 03/07/2025 5:53 PM EDT XR CHEST PORTABLE Referring clinician's provided indication for this examination in [facility]: Dyspnea (Shortness of Breath) COMPARISON: XR CHEST 1 VIEW FINDINGS: Devices/Tubes/Lines: None. Lungs: No focal consolidation or pulmonary edema. Pleura: No pleural effusion or pneumothorax. Heart/Mediastinum: Normal heart and mediastinum. Bones/Soft Tissues: No significant abnormality. Procedure Note Malachi Tracy MD, MPH - 03/07/2025 XR CHEST PORTABLE Referring clinician's provided indication for this examination in [facility]:Dyspnea (Shortness of Breath) COMPARISON: XR CHEST 1 VIEW FINDINGS: Devices/Tubes/Lines: None. Lungs: No focal consolidation or pulmonary edema. Pleura: No pleural effusion or pneumothorax. Heart/Mediastinum: Normal heart and mediastinum. Bones/Soft Tissues: No significant abnormality. IMPRESSION: No acute abnormality. us Mary English PA-C IMG XR CHEST Final Resul t * COVID Pandemic Respiratory Viral Order (PRO) (01/30/2025 11:38 PM EDT) Test Ordered COVID, Flu has been ordered [facility] Specimen Source/Descriptio n NASOPHARYNGEAL SWAB [facility] Influenza A PCR Not Detected Not Detected [facility] Influenza B PCR Not Detected Not Detected [facility] SARS-CoV 2 (COVID-19) PCR Not Detected Not Detected [facility] Comment: SARS-CoV-2 not detected Negative results do not preclude SARS-CoV-2 infection and should not be used as the sole basis for patient management decisions. Negative results must be combined with clinical observations, patient history, and epidemiological information. Other (Nasopharyngeal swab) 01/30/2025 11:38 PM EDT 01/31/2025 12:04 AM EDT us Alan Deleon MD LAB GENERAL ORDERABLES F inal Result [address] [address] * XR CHEST 1 VIEW (01/30/2025 7:57 PM EDT) Anatomical Region Laterality Modality Chest Computed Radiogr aphy 01/30/2025 8:08 PM EDT Impressions 01/30/2025 8:08 PM EDT No acute abnormality. Narrative 01/30/2025 8:08 PM EDT XR CHEST 1 VIEW Referring clinician's provided indication for this examination in [facility]: Cough; Infection COMPARISON: XR CHEST 1 VIEW FINDINGS: Devices/Tubes/Lines: None. Lungs: No focal consolidation or pulmonary edema. Pleura: No pleural effusion or pneumothorax. Heart/Mediastinum: Normal heart and mediastinum. Bones/Soft Tissues: No significant abnormality. Procedure Note Keeley Soto MBBS - 01/30/2025 XR CHEST 1 VIEW Referring clinician's provided indication for this examination in [facility]:Cough; Infection COMPARISON: XR CHEST 1 VIEW FINDINGS: Devices/Tubes/Lines: None. Lungs: No focal consolidation or pulmonary edema. Pleura: No pleural effusion or pneumothorax. Heart/Mediastinum: Normal heart and mediastinum. Bones/Soft Tissues: No significant abnormality. IMPRESSION: No acute abnormality. us Tim Grossman MD IMG XR CHEST Final Res ult * ENDOSCOPY, COLON (07/28/2024 1:55 PM EST) Narrative Transcriptions Melchor Collins MD - 07/28/2024 1:55 PM EST [facility] Patient Name: Bella Coburn Attending MD:: MELCHOR COLLINS MD, Procedure Date: 07/28/2024 1:55 PM Date of : 1960 Age: 64 Admit Type: Inpatient Gender: Female Room: [place] [address] Referring MD: MELCHOR FALK MD Exam Type: Colonoscopy Indications: Last colonoscopy: September 2018, Iron deficiencyanemia Medications: Propofol per Anesthesia Procedure: Informed consent was obtained from the patientafter discussion of the indications, limitations, alternatives, benefits, and risks of the procedure. Risks specifically discussed include but are not limited to medication reactions, missed lesions, bleeding, perforation, or the need for emergent surgery. Throughout the procedure, the patient's blood pressure, pulse, end-tidal CO2, and oxygensaturations were monitored continuously. The Olympus adult variable colonoscope [id number] #7 was introduced through the anus and advanced to the terminal ileum, with identification of theappendiceal orifice and IC valve. The terminal ileum, the appendiceal orifice and the rectum werephotographed. The colonoscopy was performed without difficulty.The patient tolerated the procedure well. The qualityof the bowel preparation was good. The bowelpreparation used was GoLYTELY and magnesium citrate viaextended prep with split dose instruction. Complications: No immediate complications. Estimated blood loss:None. Findings: The digital rectal exam was normal. Pertinent negatives include no palpable rectal lesions. Hemorrhoids were found on perianal exam. Retroflexion in the right colon was performed. An 11 mm polyp was found in the cecum while retroflexed. The polyp was semi-sessile. The polypwas removed with a hot snare. Resection and retrievalwere complete. The terminal ileum appeared normal. The exam was otherwise without abnormality. Impression: - Hemorrhoids found on perianal exam. - One 11 mm polyp in the cecum, removed with a hot snare. Resected and retrieved. - The examined portion of the ileum was normal. - The examination was otherwise normal. Recommendation: - Resume Eliquis (apixaban) at prior dosetomorrow. - Repeat colonoscopy in 3 years for surveillancebased on pathology results. MELCHOR COLLINS MD 07/28/2024 2:29:00 PM This report has been signed electronically. Number of Addenda: 0 Note Initiated On: 07/28/2024 1:55 PM Procedure Code(s): --- Professional --- 94123, Colonoscopy, flexible; with removal of tumor(s), polyp(s), or other lesion(s) by snare technique --- Technical --- 41390, Colonoscopy, flexible; with removal of tumor(s), polyp(s), or other lesion(s) by snare technique Diagnosis Code(s): --- Professional --- K64.9, Unspecified hemorrhoids D12.0, Benign neoplasm of cecum D50.9, Iron deficiency anemia, unspecified --- Technical --- K64.9, Unspecified hemorrhoids D12.0, Benign neoplasm of cecum D50.9, Iron deficiency anemia, unspecified CPT copyright 2021 [employer]. All rights reserved. The codes documented in this report are preliminary and upon cutter grind tool technician reviewmay be revised to meet current compliance requirements. Procedure Date: 07/28/2024 1:55:[address] [place] [address] us Melchor Falk MD GI PROCEDURE ORDERABLES Final R esult * CT CHEST WITH CONTRAST (09/17/2023 1:02 PM EDT) Anatomical Region Laterality Modality Chest Computed Tomogra phy 09/18/2023 9:32 PM EDT Impressions 09/20/2023 9:36 AM EDT Stable sub-5 mm solid and groundglass pulmonary nodules, most likely benign. Narrative 09/20/2023 9:[address] CHEST WITH CONTRAST Referring clinician's provided indication for this examination in [facility]: * Chest pain or SOB, pleurisy or effusion suspected TECHNIQUE: Multidetector CT of the chest was performed with intravenous contrast using tailored dose modulation techniques. COMPARISON: Chest CT 02/19/2021 FINDINGS: Devices/Tubes/Lines: None. Lungs: Central airways are patent. No consolidation. Linear scarring along the lateral right lung. Punctate calcified granulomas. Solid pulmonary nodules, for example in the left upper lobe on 5:95 and right lower lobe on 5:251, measuring up to 3 mm, stable.5 mm right lower lobe groundglass nodule on 5:140 and 5 mm right upper lobe ground glass nodule on 5:112, stable. No new or enlarging pulmonary nodule. Benign thin-walled cyst in the left lung apex. Pleura: No pleural effusion or pneumothorax. Mediastinum: No cardiomegaly. No mediastinal mass. Similar 1.2 cm hypodense right thyroid nodule, statistically likely benign. Severe coronary calcification. Lymph Nodes: Normal. No enlarged supraclavicular, axillary, mediastinal, or hilar lymph nodes. Upper Abdomen: Partially imaged upper abdomen demonstrates evidence of prior cholecystectomy. Chest Wall: Normal. No chest wall mass. Bones: No suspicious focal osseous lesion. Procedure Note Manjit Wong MD - 09/20/2023 CT CHEST WITH CONTRAST Referring clinician's provided indication for this examination in [facility]: *Chest pain or SOB, pleurisy or effusion suspected TECHNIQUE: Multidetector CT of the chest was performed with intravenouscontrast using tailored dose modulation techniques. COMPARISON: Chest CT 02/19/2021 FINDINGS: Devices/Tubes/Lines: None. Lungs: Central airways are patent. No consolidation. Linear scarring alongthe lateral right lung. Punctate calcified granulomas. Solid pulmonarynodules, for example in the left upper lobe on 5:95 and right lower lobeon 5:251, measuring up to 3 mm, stable.5 mm right lower lobe groundglassnodule on 5:140 and 5 mm right upper lobe ground glass nodule on 5:112,stable. No new or enlarging pulmonary nodule. Benign thin-walled cyst inthe left lung apex. Pleura: No pleural effusion or pneumothorax. Mediastinum: No cardiomegaly. No mediastinal mass. Similar 1.2 cmhypodense right thyroid nodule, statistically likely benign. Severecoronary calcification. Lymph Nodes: Normal. No enlarged supraclavicular, axillary, mediastinal,or hilar lymph nodes. Upper Abdomen: Partially imaged upper abdomen demonstrates evidence ofprior cholecystectomy. Chest Wall: Normal. No chest wall mass. Bones: No suspicious focal osseous lesion. IMPRESSION: Stable sub-5 mm solid and groundglass pulmonary nodules, most likelybenign. us Audra Gutierrez MD IMG CT CHEST Final Result * BD DXA AXIAL (SPINE) WITH HIP (12/16/2018 11:00 AM EDT) Anatomical Region Laterality Modality Bone Density Bone Density 12/16/2018 4:21 PM EDT Impressions 12/16/2018 4:24 PM EDT Bone mineral density remains normal. Statistically significant bone mineral density losses at the left hip and within the lumbar spine compared with 07/11/2016. POS -[id number] Narrative 12/16/2018 4:24 PM EDT This is a 59-year-old postmenopausal female with a perceived lifetime height loss of 0.5 inches. Compared with previous study 07/11/2016. Evaluation of the lumbar spine and both hips is obtained and appears technically adequate. The lumbar spine from L1 through L4 discloses a total bone mineral density of 1.171 g/cm2 with a T-score of 1.1. This is in the normal range. This represents a statistically significant bone mineral density change of -5.3% from 07/11/2016. The right hip has a total bone mineral density of 0.926 g/cm2 with a T-score of -0.1. This is in the normal range. No statistically significant change from 07/11/2016. The left hip has a total bone mineral density of 0.939 g/cm2 for a T-score of 0.0. This is in the normal range. This represents a statistically significant bone mineral density change of -4.4% from 07/11/2016. Lateral instant vertebral imaging is no performed. Procedure Note Mark Avina MD - 12/16/2018 This is a 59-year-old postmenopausal female with a perceived lifetimeheight loss of 0.5 inches. Compared with previous study 07/11/2016. Evaluation of the lumbar spine and both hips is obtained and appearstechnically adequate. The lumbar spine from L1 through L4 discloses a total bone mineral densityof 1.171 g/cm2 with a T-score of 1.1. This is in the normal range. Thisrepresents a statistically significant bone mineral density change of-5.3% from 07/11/2016. The right hip has a total bone mineral density of 0.926 g/cm2 with aT-score of - 0.1. This is in the normal range. No statisticallysignificant change from 07/11/2016. The left hip has a total bone mineral density of 0.939 g/cm2 for a T-scoreof 0.0. This is in the normal range. This represents a statisticallysignificant bone mineral density change of -4.4% from 07/11/2016. Lateral instant vertebral imaging is no performed. IMPRESSION: Bone mineral density remains normal. Statistically significant bonemineral density losses at the left hip and within the lumbar spinecompared with 07/11/2016. POS -[id number] Trish Hammonds MD IMG BD BONE DENSITY DEXA Final Result * BI MAMMOGRAM SCREENING WITH TOMOSYNTHESIS WITH CAD (BILATERAL) (10/09/2018 12:58 PM EDT) Anatomical Region Laterality Modality Breast Left, Breast Right, Breast Bilateral Bila teral Mammography 10/09/2018 2:39 PM EDT Impressions 10/09/2018 2:42 PM EDT Stable appearance relative to prior imaging. No findings suggestive of malignancy are seen. BI-RADS CATEGORY: 1 - Negative. DENSITY: There are scattered fibroglandular densities. POS - [id number] Narrative 10/09/2018 2:42 PM EDT Full-field digital mammography is obtained with computer-aided detection. Comparison with prior imaging from 07/24/2016 is made with older imaging dating back as far as 01/01/2013 also reviewed. There is scattered fibroglandular density evident in the breasts. In addition to 2-D C view imaging, tomosynthesis images are obtained in two projections of each breast. No dominant soft tissue mass of concern, suspicious cluster of calcifications, significant interval skin changes, or architectural distortion is identified. Procedure Note Taisha Philippe MD - 10/09/2018 Full-field digital mammography is obtained with computer-aided detection.Comparison with prior imaging from 07/24/2016 is made with older imagingdating back as far as 01/01/2013 also reviewed. There is scattered fibroglandular density evident in the breasts. Inaddition to 2-D C view imaging, tomosynthesis images are obtained in twoprojections of each breast. No dominant soft tissue mass of concern, suspicious cluster ofcalcifications, significant interval skin changes, or architecturaldistortion is identified. IMPRESSION: Stable appearance relative to prior imaging. No findings suggestive ofmalignancy are seen. BI-RADS CATEGORY: 1 - Negative. DENSITY: There are scattered fibroglandular densities. 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 [place] [id number] [place], [place] [address] MEDICARE REPLACEMENT HILARY SMITH [id number] [facility]ICARE PART A & B [facility] RE[facility] HILARY SMITH [id number] MEDICARE PART A & B MEDICARE PART A & B [facility] & [facility] RE[facility] HILARY SMITH [id number] MEDICARE PART A & B [facility] MEDICARE REPLACEMENT HILARY SMITH [id number] MEDICARE PART A & B [facility] MEDICARE PART A & B MEDICARE PART A & B [facility] MEDICARE REPLACEMENT Advance Directives For more information, please contact: [phone] (9AM - 5PM [facility], Friday-Friday) Documents on File Type Date Recorded Patient Setter Helper Expl anation MOLST 04/15/2025 9:15 AM Healthcare Proxy 03/21/2021 3:14 PM Healthcare Proxy 03/20/2021 2:02 PM healt hcare proxy * DNR/DNI (No CPR/No Intubation) (Latest Code Status on File) Date Activated Date Inactivated Comments 04/14/2025 8:56 AM Question Answer Comments Code Status Confirmed With: Patient Code Status Communicated To: Inpatient Attending * Full Code Date Activated Date Inactivated Comments 04/05/2025 1:48 PM 04/14/2025 8:56 AM Question Answer Comments Code Status Confirmed With: Patient * Full Code Date Activated Date Inactivated Comments 03/17/2025 7:44 PM 04/05/2025 1:48 PM Question Answer Comments Code Status Confirmed With: Patient * Full Code Date Activated Date Inactivated Comments 03/10/2025 7:47 PM 03/17/2025 7:44 PM Question Answer Comments Code Status Confirmed With: Patient * Full Code Date Activated Date Inactivated Comments 03/07/2025 11:12 PM 03/10/2025 7:47 PM Question Answer Comments Code Status Confirmed With: Patient Code Status Communicated To: Inpatient Attending Healthcare Agents on File Name Relationship Healthcare Agent Jessica russ Communication Ana Luisa Garcia Other .Primary Health Care Agent (Proxy form on file) Olvin Borges Alternate Healt hcare Agent (Proxy form on file) Care Teams Plan Manager Relationship Specialty Start Date End Date Griselda Bello NP [address] [place] [id number] PCP - General Nurse Practitioner 01/26/25 Noe Mccann MD Ophthalmology 02/11/19 Audra Gutierrez MD [address] [place] [id number] [email or web address] Intensive Care 02/11/19 Edouard Mosley MD [address] [place] [address] [address] [place] [address] [email or web address] Plastic and Reconstructive Surgery 02/11/19 Nara Tejada MD [address] [place] [address], [address] [place] [address] Consulting Provider Nephrology 02/11/19 Jose Thomas MD [address] [place] [address] [email or web address] Consulting Provider Infectious Diseases 02/11/19 Trish Hammonds MD [address] [place] [address], [address] [place] [address] Rheumatology 02/11/19 Celina He DPM [address] [facility], [address] [place] [address] [email or web address] Podiatry 02/11/19 Elizabeth Goode MD [address] [place] [id number] Psychologist 03/27/20 Additional Source Comments The information contained in this document represents components of the legal health record. It is not the complete legal health record.[facility]
--- OUTSIDE RECORDS SUMMARY | 2025-04-16 20:56 | XMS_ITS | Encounter Summary ---
Author Organization [facility] Address [address] [facility] [address] [place] [address] Phone Care Team Providers Care Plasticator Name Role Phone Olvin Harvey MD Primary Care Provide r Olvin Harvey MD Unavailable [phone] Chelsy MclaughlinW Unavailable [email or web address] DO Primary Care Provider Krissy Hernandez Primary Care Pro vider Martin Green MD Primary Care Provider [phone] Martin Bales MD Unavailable Jose Gallagher MD Unavailable [phone] Ramiro Schmidt MD Unavailable Enio Starkey MD Unavailable [phone] Kenneth Carter MD Unavailable Noe Mccann MD Unavailable Unavailable Audra Gutierrez MD Unavailable Edouard Mosley MD Unavailable Martin Green MD Primary Care Provider + Nara Tejada MD Unavailable [phone] Jose Thomas MD Unavailable + [phone] Trish Hammonds MD Unavailable +[phone] PayamcharCelina DPM Unavailable [phone] Olvin Harvey MD Unavailable [phone] Fabián Seaman MD Unavailable +[phone] Elizabeth Goode MD Unavailable [phone] Martin Green MD Primary Care Provider + Martin Green MD Primary Care Provider + Griselda Bello NP Primary Care Provider [phone] Encounter Details Date Type Department Care Team (Latest Contact Info) Description 05/26/2017 Transcribe Orders [address] [address] Julien Steel MD [address] [place] [address] [email or web address] Inguinal pain, unspecified laterality (Primary Dx) Social History Tobacco Use Types Packs/Day Years Used Date Smoking Tobacco: Former Cigarettes 2 45 1 966 - 2010 Smokeless Tobacco: Never Alcohol Use Standard Drinks/Week Comments No 0 (1 standard drink = 0.6 oz pur e alcohol) Comments Unknown Sex and Gender Information Value Date Recorded Sex Assigned at Female 10/17/2017 8:32 PM EDT Legal Sex Female 12:39 PM EDT Gender Identity Female 10/17/2017 8:32 PM EDT Sexual Orientation Straight 06/30/2020 5: 59 PM EST 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, [address] [address] 07/29/2025 1:00 PM EST Office Visit [facility] [address], [address] [place] [address] Minda Nelson DNP [address] [facility], [address] [place] [address] 08/31/2025 11:50 AM EDT Office Visit [facility] [address] [place] [address] Audra Gutierrez MD [address] [place] [address] documented as of this encounter Results * (ABNORMAL) Comprehensive metabolic panel (05/26/2017 12:16 PM EST) SODIUM 138 133 - 146 mmol/L [facility] POTASSIUM 4.4 3.3 - 5.1 mmol/L [facility] CHLORIDE 96 96 - 108 mmol/L [facility] CO2 30 21 - 35 mmol/L [facility] BUN 20(H) 6 - 19 mg/dL [facility] CREATININE 1.00 0.5 - 1.5 mg/dL [facility] GLUCOSE 148(H) 70 - 99 mg/dL [facility] ALBUMIN 4.0 3.9 - 4.8 g/dL [facility] TOTAL PROTEIN 7.0 6.5 - 8.0 g/dL [facility] CALCIUM 9.7 8.4 - 10.3 mg/dL [facility] ALKALINE PHOSPHATASE 110 39 - 117 U/L [facility] TOTAL BILIRUBIN 0.3 0 - 1.2 mg/dL [facility] AST 25 0 - 37 U/L [facility] ALT 14 0 - 40 U/L [facility] GLOBULIN 3.0 1 - 4.8 g/dL [facility] EGFR 57(L) >60 mL/min/1.7 3m2 [facility] Comment:Abnormal if <60. If patient is -Filipino, multiply the result by 1.21. ANION GAP 16 10 - 20 mmol/L [facility] Blood 05/26/2017 12:1 6 PM EST 05/26/2017 12:21 PM EST us Julien Steel MD LAB BLOOD BKR ORDERABLES Angle pardo Result [facility] [address] [place] [address] * (ABNORMAL) CBC and differential (05/26/2017 12:16 PM EST) WBC 10.68 3.40 - 11.20 K/uL [facility] RBC 4.53 3.80 - 4.80 M/uL [facility] HGB 13.5 12.0 - 15.0 g/dL [facility] HCT 38.9 36.0 - 46.0 % [facility] PLT 320 130 - 400 K/uL [facility] MCV 85.9 79.0 - 98.0 [facility] MCH 29.8 27.0 - 34.8 pg [facility] MCHC 34.7 31.5 - 36.0 g/dL [facility] RDW 12.4 10.8 - 14.6 % [facility] MPV 9.4 9.4 - 12.4 [facility] NRBC 0.00 /100 WBCs [facility] ABSOLUTE NRBC 0.00 K/uL [facility] DIFF METHOD Auto [facility] NEUTS 71.3 45.30 - 77.70 % [facility] LYMPHS 20.6 12.30 - 39.70 % [facility] MONOS 5.0 4.10 - 12.80 % [facility] EOS 2.0 0 - 7.2 % [facility] BASOS 0.5 0 - 2.80 % [facility] Granulocytes, immature (%) 0.6 0.0 - 0.9 % [facility] ABSOLUTE NEUTS 7.63 1.40 - 7.70 K/uL [facility] ABSOLUTE LYMPHS 2.20 0.60 - 3.20 K/uL [facility] ABSOLUTE MONOS 0.53 0.11 - 0.59 K/uL [facility] ABSOLUTE EOS 0.21 0.01 - 0.50 K/uL [facility] ABSOLUTE BASOS 0.05 0.00 - 0.08 K/uL [facility] Granulocytes, immature 0.06(H) 0.00 - 0.05 K/uL [facility] Blood 05/26/2017 12:1 6 PM EST 05/26/2017 12:21 PM EST Julien Steel MD LAB BLOOD BKR ORDERABLES Angle l Result Performing Organization Address City/[facility]/ZIP Co de Phone Number [facility] [address] [place] [address] * Tissue transglutaminase IgA (05/26/2017 12:16 PM EST) TTG IGA ANTIBODY <1.2 <4.0 (Negative) U/mL [facility] DPT OF LAB MED AND PAT+ Blood 05/26/2017 12:1 6 PM EST 05/26/2017 12:22 PM EST us Julien Steel MD LAB BLOOD BKR ORDERABLES Angle l Result [facility] DPT OF LAB MED AND PAT+ [address] [place] [address] * Immunoglobulin A (05/26/2017 12:16 PM EST) IgA 111 70 - 400 mg/dL [facility] Blood 05/26/2017 12:1 6 PM EST 05/26/2017 12:21 PM EST us Julien Steel MD LAB BLOOD BKR ORDERABLES Angle l Result [facility] [address] [place] [address] documented in this encounter Visit Diagnoses Diagnosis Inguinal pain, unspecified laterality- Primary documented in this encounter Additional Health [...] documented as of this encounter Care Teams Plasticator Relationship Specialty Start Date End Date Olvin Harvey MD [address] [facility] 1 [place] [address] [email or web address] PCP - General 12/07/13 06/11/18 Ema Kaufman DO [address] [place] [phone] [email or web address] PCP - General 06/12/18 09/22/18 Krissy Hernandez PA [address] [place] [address] [email or web address] PCP - General Internal Medicine 09/23/18 10/04/18 Martin Green MD [address] [place] [address] [email or web address] PCP - General Internal Medicine 10/05/18 02/10/19 Martin Green MD [address] [place] [address] [email or web address] PCP - General Internal Medicine 02/11/19 04/11/20 Martin Green MD [address] [place] [address] [email or web address] PCP - General Internal Medicine 04/12/20 05/25/23 Martin Green MD [address] [place] [phone] [email or web address] PCP - General Internal Medicine 05/26/23 01/25/25 Griselda Bello NP [address] [place] [address] PCP - General Nurse Practitioner 01/26/25 Olvin Harvey MD [address] [facility] 1 [place] [address] [email or web address] Insurance Assigned Provider 04/12/17 02/10/19 Chelsy Mclaughlin ALARM SIGNALER [address] [facility] 1 [place] [address] [email or web address] Inspector 08/08/17 07/05/18 Martin Bales MD [address] [place] [address] [email or web address] Gastroenterology 10/07/18 11/13/20 Jose Gallagher MD [address] [place] [address], [address] [place] [address] [email or web address] Urology 10/07/18 11/13/20 Ramiro Schmidt MD [address] [place] [address], [address] [place] [address] [email or web address] Endocrinology 02/11/19 11/13/20 Enio Starkey MD [address] [place] [address], [address] [place] [address] [email or web address] Cardiology 02/11/19 11/13/20 Kenneth Carter MD [address] [place] [address] Neurology 02/11/19 11/13/20 Noe Mccann MD Ophthalmology 02/11/19 Audra Gutierrez MD [facility] 2nd [place] [address] [email or web address] Intensive Care 02/11/19 Edouard Mosley MD [address] [place] [address], [address] [place] [address] [email or web address] Plastic and Reconstructive Surgery 02/11/19 Nara Tejada MD [address] [place] [address], [address] [place] [address] [email or web address] Consulting Provider Nephrology 02/11/19 Jose Thomas MD [address] [place] [address] [email or web address] [email or web address] Provider Infectious Diseases 02/11/19 Trish Hammonds MD [address] [facility], [address] [place] [address] [email or web address] Rheumatology 02/11/19 Celina He DPM [address] [facility], [address] [place] [address] [email or web address] Podiatry 02/11/19 Olvin Harvey MD [address] [facility] Floor 1 [place] [address] [email or web address] Insurance Assigned Provider 04/12/17 03/06/19 Fabián Seaman MD [address] [facility], [address] [place] [address] [email or web address] Insurance Assigned Provider 03/06/19 07/09/19 Elizabeth Goode MD [address] [facility] 200 [place] [address] Psychologist 03/27/20 documented as of this encounter Additional Source Comments The information contained in this document represents components of the legal health record. It is not the complete legal health record.[facility]
--- OUTSIDE RECORDS SUMMARY | 2025-04-16 20:56 | XMS_ITS | Encounter Summary ---
Author Organization [facility] Address [address] [place] [address] [address] [place] [address] Phone Care Team Providers Care Ripper Operator Name Role Phone Noe Mccann MD Unavailable Unavailable Audra Gutierrez MD Unavailable [phone] Edouard Mosley MD Unavailable Nara Tejada MD Unavailable [phone] Jose Thomas MD Unavailable [phone]- [phone] Trish Hammonds MD Unavailable [phone] Celina He DPM Unavailable [phone] Elizabeth Goode MD Unavailable [phone] Martin Green MD Primary Care Provider [phone] Martin Green MD Primary Care Provider +[phone] Griselda Bello NP Primary Care Provider + [phone] Encounter Details Date Type Department Care Team (Late st Contact Info) Description 07/26/2022 Procedure Pass [facility], Ct Scan - [facility] [address] [place] [address] Social History Tobacco Use Types Packs/Day Years [...] 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 Wish to be (Past 1 Month) No 023 9:23 AM Priscila Mcadams RN 2. Non-Specific Active Suici aby Thoughts (Past 1 Month) No 07/26/2022 9:23 AM Priscila Mcadams RN 6. Suicidal Behavior (Lifetime) No 9:23 AM Priscila Mcadams RN documented as of this encounter Plan of Treatment Upcoming Encounters Date Type Department Care Team (Late st Contact Info) Description 04/28/2025 2:00 PM EST Office Visit [facility] [address] 3rd [facility], [address] [place] [address] Minda Nelson DNP [address] [place] [address] 07/29/2025 1:00 PM EST Office Visit [facility] [place] [address] [address] [facility], [address] [address] Minda Nelson DNP [address] [place] [address] 08/31/2025 11:50 AM EDT Office Visit [facility] 10 [facility] [place] [address] Audra Gutierrez MD 10 [facility] 2nd [place] [address] [email or web address] documented as of this encounter Visit Diagnoses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documented in this encounter Additional Health Concerns Infection Onset Date Last Indicated Resolved Time CoV-Risk 05/29/2023 06/05/2023 06/06/2023 9:59 AM EST [...] documented as of this encounter Care Teams Ripper Operator Relationship Specialty Start Date End Date Martin Green MD [address] [place] [address] [email or web address] PCP - General Internal Medicine 04/12/20 05/25/23 Martin Green MD [address] [place] [phone] [email or web address] PCP - General Internal Medicine 05/26/23 01/25/25 Griselda Bello NP [address] [place] [address] PCP - General Nurse Practitioner 01/26/25 Noe Mccann MD Ophthalmology 02/11/19 Audra Gutierrez MD [address] [place] [address] 2nd [place] [address] [email or web address] Intensive Care 02/11/19 Edouard Mosley MD [address] [place] [address] [email or web address] Plastic and Reconstructive Surgery 02/11/19 Nara Tejada MD [address] [place] [address], 3 [place] [address] [email or web address] Consulting Provider Nephrology 02/11/19 Jose Thomas MD [address] [place] [address] [email or web address] Consulting Provider Infectious Diseases 02/11/19 Trish Hammonds MD [address] [place] [address], [address] [address] [email or web address] Rheumatology 02/11/19 Celina He DPM [address] [place] [address], [address] [address] Podiatry 02/11/19 Elizabeth Goode MD 301 [facility] 200 [place] [address] Psychologist 03/27/20 documented as of this encounter Additional Source Comments The information contained in this document represents components of the legal health record. It is not the complete legal health record.[facility]
--- OUTSIDE RECORDS SUMMARY | 2025-04-16 20:56 | XMS_ITS | Encounter Summary ---
Author Organization [facility] Address [address] [place] [address] [address] [place] [address] Phone Care Team Providers Care Talent Solutions Manager Name Role Phone Noe Mccann MD Unavailable Unavailable Audra Gutierrez MD Unavailable [phone] Edouard Mosley MD Unavailable Nara Tejada MD Unavailable [phone] Jose Thomas MD Unavailable + [phone] Trish Hammonds MD Unavailable [phone] Celina He DPM Unavailable [phone] Elizabeth Goode MD Unavailable [phone] Martin Green MD Primary Care Provider [phone] Martin Green MD Primary Care Provider +-[phone] Griselda Bello NP Primary Care Provider + [phone] Encounter Details Date Type Department Care Team (Late st Contact Info) Description 03/23/2021 Procedure Pass [facility], Ct Scan - [facility] [address] [place] [address] Social History Tobacco Use Types Packs/Day Years [...] 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 Wish to be (Past 1 Month) No 03/24/2021 1:00 AM Krystal Power RN 2. Non-Specific Active Suici aby Thoughts (Past 1 Month) No 03/24/2021 1:00 AM Krystal oPwer RN 6. Suicidal Behavior (Lifetime) No 1:00 AM Krystal Power RN documented as of this encounter Plan of Treatment Upcoming Encounters Date Type Department Care Team (Late st Contact Info) Description 04/28/2025 2:00 PM EST Office Visit [facility] [address] [place] [address] [place] [address], [address] [place] [address] Minda Nelson DNP [address] [place] [address] 07/29/2025 1:00 PM EST [facility] [address] [facility], [address] [address] Minda Nelson DNP [address] [place] [address] 08/31/2025 11:50 AM EDT Office Visit [facility] 10 [facility] [place] [address] Audra Gutierrez MD 10 [facility] 2nd [place] [address] [email or web address] documented as of this encounter Visit Diagnoses [...] documented as of this encounter Care Teams Talent Solutions Manager Relationship Specialty Start Date End Date Martin Grene MD [address] [place] [address] 200 [place] [address] [email or web address] PCP - General Internal Medicine 04/12/20 05/25/23 Martin Green MD 238 [place] [address] [email or web address] PCP - General Internal Medicine 05/26/23 01/25/25 Griselda Bello, GAEL [address] [place] [address] PCP - General Nurse Practitioner 01/26/25 Noe Mccann MD Ophthalmology 02/11/19 Audra Gutierrez MD [address] [place] [address] 2nd [place] [address] [email or web address] Intensive Care 02/11/19 Edouard Mosley MD [address] [place] [address], [address] [place] [address] [email or web address] Plastic and Reconstructive Surgery 02/11/19 Nara Tejada MD [address] [place] [address], [address] [place] [address] [email or web address] Consulting Provider Nephrology 02/11/19 Jose Thomas MD [address] [place] [address] [email or web address] Consulting Provider Infectious Diseases 02/11/19 Trish Hammonds MD [address] [place] [address], [address] [place] [address] Rheumatology 02/11/19 Celina He DPM 22 [facility], [address] [place] [address] Podiatry 02/11/19 Elizabeth Goode MD [address] [place] [address] Psychologist 03/27/20 documented as of this encounter Additional Source Comments The information contained in this document represents components of the legal health record. It is not the complete legal health record.[facility]
--- OUTSIDE RECORDS SUMMARY | 2025-04-16 20:56 | XMS_ITS | Encounter Summary ---
Author Organization [facility] Address [address] [facility] [address] [place] [address] Phone Care Team Providers Care Shoeblack Name Role Phone Olvin Harvey MD Primary Care Provide r Olvin Harvey MD Unavailable [phone] Chelsy MclaughlinW Unavailable [email or web address] Ema Dumas DO Primary Care Provider Krissy Hernandez Primary Care Pro vider Martin Green MD Primary Care Provider [phone] Martin Bales MD Unavailable Jose Gallagher MD Unavailable [phone] Ramiro Schmidt MD Unavailable [phone] Enio Starkey MD Unavailable [phone] Kenneth Carter MD Unavailable Noe Mccann MD Unavailable Unavailable Audra Gutierrez MD Unavailable [phone] Edouard Mosley MD Unavailable Martin Green MD Primary Care Provider + Nara Tejada MD Unavailable [phone] Jose Thomas MD Unavailable +- [phone] Trish Hammonds MD Unavailable +-- [phone] Payamchar JoanAna Lima DPEvelin Unavailable +- [phone] Olvin Harvey MD Unavailable [phone] Fabián Seaman MD Unavailable +[phone] Elizabeth Goode MD Unavailable [phone] Martin Green MD Primary Care Provider + Martin Green MD Primary Care Provider +[phone] Griselda Bello NP Primary Care Provider [phone] Encounter Details Date Type Department Care Team (Late st Contact Info) Description 07/11/2017 Procedure Pass [facility], Ct Scan - [address] [address] Social History Tobacco Use Types Packs/Day Years [...] 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 documented as of this encounter Plan of Treatment Upcoming Encounters Date Type Department Care Team (Late st Contact Info) Description 04/28/2025 2:00 PM EST Office Visit [facility] [address] [place] [address] 3rd Floor, [address] [place] [address] Minda Nelson, ESTRELLITA [address] [facility], [address] [place], [place] [id number] [email or web address] 07/29/2025 1:00 PM EST Office Visit [facility] [address] [facility] 3rd Floor, [address] [place] [address] Minda Nelson, ESTRELLITA [address] [facility], [address] [place] [address] [email or web address] 08/31/2025 11:50 AM EDT Office Visit [facility] [address] [place] [address] Audra Gutierrez MD [address] [address] documented as of this encounter Visit Diagnoses [...] documented as of this encounter Care Teams Shoeblack Relationship Specialty Start Date End Date Olvin Harvey MD 22 [facility] 1 [place] [address] [email or web address] PCP - General 12/07/13 06/11/18 Ema Kaufman DO [address] [place] [address] [email or web address] PCP - General 06/12/18 09/22/18 Krissy Hernandez PA [address] [place] [address] [email or web address] PCP - General Internal Medicine 09/23/18 10/04/18 Martin Green MD [address] [place] [address] [email or web address] PCP - General Internal Medicine 10/05/18 02/10/19 Martin Green MD [address] [place] [address] PCP - General Internal Medicine 02/11/19 04/11/20 Martin Green MD [address] [place] [address] [email or web address] PCP - General Internal Medicine 04/12/20 05/25/23 Martin Green MD [address] [place] [address] [email or web address] PCP - General Internal Medicine 05/26/23 01/25/25 Griselda Bello NP [address] [place] [address] PCP - General Nurse Practitioner 01/26/25 Olvin Harvey MD [address] [address] [email or web address] Insurance Assigned Provider 04/12/17 02/10/19 Chelsy Mclaughlin, [facility] [address] [facility] 1 [place] [address] [email or web address] [employer] 08/08/17 07/05/18 Martin Bales MD [address] [place] [address] [email or web address] Gastroenterology 10/07/18 11/13/20 Jose Gallagher MD [address] [place] [address], [address] [place] [address] [email or web address] Urology 10/07/18 11/13/20 Ramiro Schmidt MD [address] [place] [address], [address] [place] [address] Endocrinology 02/11/19 11/13/20 Enio Starkey MD [address] [facility], [address] [place] [address] [email or web address] Cardiology 02/11/19 11/13/20 Kenneth Carter MD [address] [place] [address] Neurology 02/11/19 11/13/20 Noe Mccann MD Ophthalmology 02/11/19 Audra Gutierrez MD [address] [address] [email or web address] Intensive Care 02/11/19 Edouard Mosley MD [address] [place] [address], [facility] [address] [place] [address] [email or web address] Plastic and Reconstructive Surgery 02/11/19 Nara Tejada MD [address] [place] [address], [address] [place] [address] Consulting Provider Nephrology 02/11/19 Jose Thomas MD [address] [place] [address] [email or web address] Consulting Provider Infectious Diseases 02/11/19 Trish Hammonds MD [address] [place] [address], [address] [place] [address] [email or web address] Rheumatology 02/11/19 Celina He DPM [address] [facility], [address] [place] [address] [email or web address] Podiatry 02/11/19 Olvin Harvey MD [address] [facility] Floor 1 [place] [address] [email or web address] Insurance Assigned Provider 04/12/17 03/06/19 Fabián Seaman MD [address] [facility], [address] [place] [address] [email or web address] Insurance Assigned Provider 03/06/19 07/09/19 Elizabeth Goode MD [address] [place] [address] Psychologist 03/27/20 documented as of this encounter Additional Source Comments The information contained in this document represents components of the legal health record. It is not the complete legal health record.[facility]
--- OUTSIDE RECORDS SUMMARY | 2025-04-16 20:56 | XMS_ITS | Encounter Summary ---
Author Organization [facility] Address [address] [place] [address] Care Team Providers Care Viscose Cellar Worker Name Role Phone Martin Green Primary Care Provider [phone] Encounter Details Date Type Department Care Team (Late st Contact Info) Description 05/10/2022 Telephone [facility] Central Scheduling Department [address] [place] [address] Telephone Intake, Staff Social History Tobacco Use Types Packs/Day Years Used Date Smoking Tobacco: Former Cigarettes 2 30 0 12/31/1981 - 01/01/2012 Smokeless Tobacco: Never Alcohol Use Standard Drinks/Week Comments No 0 (1 standard drink = 0.6 oz pur e alcohol) Comments Unknown Sex and Gender Information Value Date Recorded Sex Assigned at Female 08/19/2024 9:47 AM EDT Legal Sex Female 8:24 AM EDT Gender Identity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 Sexual Orientation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 documented as of this encounter Miscellaneous Notes * Telephone Encounter - Delfina Lewis LPN - 05/13/2022 4:33 PM EST Refill request sent in * Telephone Encounter - Meera Colon - 05/10/2022 5:16 PM EST Pt called in to request a refill of her Adderall 30mg, prescribed by Dr Carter. She states the pharmacy has send a fax refill request but has not received a response. Additionally, the pt has beenexperiencing some symptoms today that she was concerned about. A message was sent to Dr Carter earlier today but she wanted to follow up. Advised to allow time for messages to be reviewed. Thank you! documented in this encounter Plan of Treatment Upcoming Encounters Date Type Department Care Team (Late st Contact Info) Description 08/25/2025 2:00 PM EDT Office Visit [facility] [address] [place] [address] Roving Frame Tender: Kenneth Walsh MD PhD [address] [place] [address] documented as of this encounter Visit Diagnoses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documented in this encounter Care Teams Viscose Cellar Worker Relationship Specialty Start Date End Date Martin Green [address] [place] [address] PCP - General Internal Medicine 10/08/18 documented as of this encounter
--- OUTSIDE RECORDS SUMMARY | 2025-04-16 20:56 | XMS_ITS | Encounter Summary ---
Author Organization [facility] Address [address] [facility] [address] [place] [address] Phone Care Team Providers Care Environmental Scientist Name Role Phone Olvin Harvey MD Primary Care Provide r Olvin Harvey MD Unavailable [phone] Chelsy MclaughlinW Unavailable [email or web address] Ema Dumas DO Primary Care Provider Krissy Hernandez Primary Care Pro vider Martin Green MD Primary Care Provider [phone] Martin Bales MD Unavailable Jose Gallagher MD Unavailable [phone] Ramiro Schmidt MD Unavailable Enio Starkey MD Unavailable [phone] Kenneth Carter MD Unavailable [phone] Noe Mccann MD Unavailable Unavailable Audra Gutierrez MD Unavailable Edouard Mosley MD Unavailable Martin Green MD Primary Care Provider + Nara Tejada MD Unavailable [phone] Jose Thomas MD Unavailable + [phone] Trish Hammonds MD Unavailable [phone]- [phone] PayamcharCelina DPM Unavailable [phone] Olvin Harvey MD Unavailable [phone] Fabián Seaman MD Unavailable +[phone] Elizabeth Goode MD Unavailable [phone] Martin Green MD Primary Care Provider + Martin Green MD Primary Care Provider + Griselda Bello NP Primary Care Provider [phone] Reason for Referral * Consultation (Elective) - Closed Specialty Diagnoses / Procedures Referred By Ludwin christie Referred To Contact Neurology Diagnoses Encounter for consultation Olvin Harvey MD Phone: tel: fax: [email or web address] [address] [phone] Phone: tel: Referral ID Status Reason Start Date Expiration Date Visits Re quested Visits Authorized [id number] Closed 05/21/2017 05/21/2018 1 1 Encounter Details Date Type Department Care Team (Latest Contact Info) Description 05/21/2017 Transcribe Orders [facility] Department of Neurology [address] [place] [address], 8th Floor, [address] [place] [address] Kenneth Carter MD [address] [place] [address] Encounter for consultation (Primary Dx) Social History Tobacco Use Types [...] Job Start Date Job 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 documented as of this encounter Plan of Treatment Upcoming Encounters Date Type Department Care Team ([facility] Contact Info) Description 04/28/2025 2:00 PM EST Office Visit [facility] [address], [address] [place] [address] Minda Nelson DNP [address] [place] [address] 07/29/2025 1:00 PM EST Office Visit [facility] [address] [facility], [address] [place] [address] Minda Nelson DNP [address] [place] [address], [address] [address] 08/31/2025 11:50 AM EDT Office Visit [facility] [address] [place] [address] Audra Gutierrez MD [address] [address] [email or web address] Scheduled Referrals Name Type Priority Associated Diagnoses Orde r Schedule Ambulatory referral to [facility] Neurology Outpatient Referral Routine Encounter for consultation Ordered: 05/21/2017 documented as of this encounter Visit Diagnoses Diagnosis Encounter for consultation- Primary documented in this encounter Additional Health [...] documented as of this encounter Care Teams Environmental Scientist Relationship Specialty Start Date End Date Olvin Harvey MD [address] [address] [email or web address] PCP - General 12/07/13 06/11/18 Ema Kaufman DO [address] [place] [address] [email or web address] PCP - General 06/12/18 09/22/18 Krissy Hernandez PA [address] [place] [address] [email or web address] PCP - General Internal Medicine 09/23/18 10/04/18 Martin Green MD [address] [place] [address] [email or web address] PCP - General Internal Medicine 10/05/18 02/10/19 Martin Green MD [address] [place] [address] [email or web address] PCP - General Internal Medicine 02/11/19 04/11/20 Martin Green MD [address] [place] [address] [email or web address] PCP - General Internal Medicine 04/12/20 05/25/23 Martin Green MD [address] [place] [phone] [email or web address] PCP - General Internal Medicine 05/26/23 01/25/25 Griselda Bello NP [address] [place] [address] PCP - General Nurse Practitioner 01/26/25 Olvin Harvey MD 22 [facility] 1 [place] [address] [email or web address] Insurance Assigned Provider 04/12/17 02/10/19 Chelsy Mclaughlin LCSW 22 [facility] 1 [place] [address] [email or web address] Assistant Community Director 08/08/17 07/05/18 Martin Bales MD [address] [place] [address] [email or web address] Gastroenterology 10/07/18 11/13/20 Jose Gallagher MD [address] [place] [address], [address] [place] [address] [email or web address] Urology 10/07/18 11/13/20 Ramiro Schmidt MD [address] [place] [address], [address] [place] [address] [email or web address] Endocrinology 02/11/19 11/13/20 Enio Starkey MD [address] [place] [address], [address] [place] [address] [email or web address] Cardiology 02/11/19 11/13/20 Kenneth Carter MD [address] [place] [address] Neurology 02/11/19 11/13/20 Noe Mccann MD Ophthalmology 02/11/19 Audra Gutierrez MD [address] [place] [address] 2nd [place] [address] [email or web address] Intensive Care 02/11/19 Edouard Mosley MD [address] [facility], [address] [place] [address] [email or web address] Plastic and Reconstructive Surgery 02/11/19 Nara Tejada MD [address] [place] [address], [address] [place] [address] [email or web address] Consulting Provider Nephrology 02/11/19 Jose Thomas MD [address] [place] [address] [email or web address] Consulting Provider Infectious Diseases 02/11/19 Trish Hammonds MD [address] [facility], [address] [place] [address] [email or web address] Rheumatology 02/11/19 Celina He DPM [address] [facility], [address] [place] [address] [email or web address] Podiatry 02/11/19 Olvin Harvey MD [address] [facility] Floor 1 [place] [address] [email or web address] Insurance Assigned Provider 04/12/17 03/06/19 Fabián Seaman MD [address] [facility], [address] [place] [address] [email or web address] Insurance Assigned Provider 03/06/19 07/09/19 Elizabeth Goode MD [address] [place] [address] Psychologist 03/27/20 documented as of this encounter Additional Source Comments The information contained in this document represents components of the legal health record. It is not the complete legal health record.[facility]
--- OUTSIDE RECORDS SUMMARY | 2025-04-16 20:56 | XMS_ITS | Data Portability ---
Author Organization [facility], [facility] Address [address] [place] [phone] Care Team Providers Care Clinical Document Improvement Educator Name Role Phone MELCHOR FALK Primary Care Provider [facility] Referring Provider YESENIA SINGH Primary Care Provider Assessment Encounter Date Assessment Date Assessment LastModified by Organization Details LastModified Time 02/25/2023 02/25/2023 service called for burning on urination x5d found 63 zach with hx recurrent UTI, extensive abx allergy no fevers, chills, flank pain UCx from 5d prior results show nearly aguirre sens ecoli per pt nitrofurantion ineffective pt pt immune response impaired due to comorbid MS and usually requires longer abx duration VSS #Acute UTI able to tolerate keflex start course cefpodox 12d course return to primary team notify service if worsening vkudesia Not available 02/25/2023 18:30:02 05/26/2023 05/26/2023 I have reviewed and agree with the Assessment and Plan as documented by the Hhas. I provided real-time medical direction via phone for this encounter, and was available for additional phone based assistance as needed. 63-year-old patient is seen for nausea vomiting malaise inability to tolerate PO. Medic initially attempted to reach me however I was on several other [facility] encounters and after approximately 20 minutes I was able to answer the call for this patient after which patient had decided that she wish to go to the emergency department and activated 911 pallfather Not available 05/29/2023 11:45:43 Plan of Treatment Reminders Order Date Submit Date Provider Last Modified By Organization Details Last Modified Time Details Appointments None recorded. Lab hemoglobin + hematocrit, blood 2022 023 [facility] [place], [address] [place] [address], [phone] 18:39:50 BMP, serum or plasma [address], [phone] 18:40:13 rapid SARS CoV 2 Ag, QL IA, respiratory specimen [address], [id number] 10:33:12 Referral None recorded. Procedures None recorded. Surgeries None recorded. Imaging None recorded. Medication Orders ipratropium 0.5 mg-albutero l 3 mg (2.5 mg base)/3 mL nebulizatio n soln 2022 023 [email or web address] [facility], [address] [place], [address], 18:35:11 albuterol sulfate 2.5 mg/3 mL (0.083 %) solution for nebulizatio n 2022 023 [email or web address] [facility], [address] [place], [address], 19:14:45 cefpodoxime 200 mg tablet 2022 [facility], [address] [place], [address], 16:06:57 Patient TargetsNo targets recorded. Patient InstructionsNo instructions recorded. Reason for Referral None Reported. Results Created Date Observation Date Name Description Value Unit Range Abnormal Flag Note LastModifiedBy Organization Detail LastModifiedTime Result Notes None recorded. Medical Equipment None Reported. Allergies Allergen ID Allergen Name Allergen Category Reaction Reaction Severity Criticality Documentation Date Start Date Code Code System Note Provider Name and Address Organization Details Recorded Time 3317 Product containin g penicilli n (product) medicatio n Not available Not available Not available 02/25/2023 66716 8001 SNOMED Not Available [facility] - production 4 03:49:04 3318 Substance with sulfonami de structure and antibacte rial mechanism of action (substanc e) medicatio n anaphylax is Not available [facility] 02/25/2023 19491 8003 SNOMED Chelsea Naidu MD [address] [place] [address],[address], [place], [phone], [employer] 3 18:24:47 3319 codeine medicatio n anaphylax is Not available high 02/25/2023 2670 RxHoward Naidu MD [address] [place] [address],[address], [place], [address], [employer], [employer] 3 18:25:11 3320 levofloxa gladys medicatio n other Not available [facility] 02/25/2023 [id number] Smiley Naidu MD [address] [place] [address],[address], [place], [phone], [employer] 3 18:26:08 Medications Name Sig Start Date Stop Date Status Note LastModified by Organization Details LastModified Time clonidine HCl 0.1 mg tablet active Not Available Not Available Not Available ipratropium 0.5 mg-albuterol 3 mg (2.5 mg base)/3 mL nebulization soln Inhale 3 mL 4 times a day by nebulizatio n route. 2022 active Not Available Not Available Not Avai lable albuterol sulfate 2.5 mg/3 mL (0.083 %) solution for nebulization active Not Available Not Available Not Available cefpodoxime 200 mg tablet Take 1 tablet every 12 hours by oral route for 12 days. active Not Available Not Available No t Available azithromycin 250 mg tablet active Not Available Not Available Not Available Lidocaine Viscous 2 % mucosal solution active Not Available Not Available Not Available tizanidine 4 mg tablet active Not Available Not Available No t Available fluconazole 150 mg tablet active Not Available Not Available Not Available spironolacto ne 100 mg tablet active Not Available Not Available Not Available amantadine HCl 100 mg capsule active Not Available Not Available Not Available levothyroxin e 100 mcg tablet active Not Available Not Available Not Available methenamine hippurate 1 gram tablet active Not Available Not Available Not Available potassium chloride ER 20 mEq tablet,exten ded release(part /cryst) active Not Available Not Available Not Available cephalexin 500 mg capsule active Not Available Not Available Not Available pyridostigmi ne bromide 60 mg tablet active Not Available Not Available Not Available promethazine 25 mg tablet active Not Available Not Available Not Available brimonidine 0.2 % eye drops active Not Available Not Available Not Available dextroamphet amine-amphet amine 15 mg tablet active Not Available Not Available Not Available montelukast 10 mg tablet active Not Available Not Available Not Available ammonium lactate 12 % topical cream active Not Available Not Available Not Available lisinopril 5 mg tablet active Not Available Not Available No t Available furosemide 20 mg tablet active Not Available Not Available Not Available methylpredni solone 4 mg tablets in a dose pack active Not Available Not Available No t Available morphine 15 mg immediate release tablet active Not Available Not Available Not Available clotrimazole 1 % topical cream active Not Available Not Available Not Available glipizide 5 mg tablet active Not Available Not Available No t Available diazepam 5 mg tablet active Not Available Not Available No t Available dorzolamide 2 % eye drops active Not Available Not Available Not Available modafinil 100 mg tablet active Not Available Not Available Not Available nitrofuranto in monohydrate/ macrocrystal s 100 mg capsule active Not Available Not Available Not Available [facility]000 [facility]/gram topical powder active Not Available Not Available Not Available sildenafil (pulmonary hypertension ) 20 mg tablet active Not Available Not Available Not Available sodium chloride 7 % for nebulization active Not Available Not Available Not Available estradiol 10 mcg vaginal tablet active Not Available Not Available Not Available dalfampridin e ER 10 mg tablet,exten ded release,12 hr active Not Available Not Available Not Available Eliquis 5 mg tablet active Not Available Not Available Not Available Trulicity 4.5 mg/0.5 mL subcutaneous pen injector active Not Available Not Available Not Available Vitals Date Recorded Body temperature Respiratory rate Heart rate Oxygen saturation Oxygen saturation in Arterial blood by Pulse oximetry Systolic And Diastolic Provider Name and Address Organization Details Last Updated DateTime 3 98.1 [degF] 16 /min 78 /min 98 % 98 % 124/80 mm[Hg] Not Available [facility] - production 3 15:38:55 Date Recorded Body weight Body temperature Body height Heart rate Respiratory rate Systolic And Diastolic Provider Name and Address Organization Details Last Updated DateTime 3 51309.8 g 97.9 [degF] 152.4 cm 68 /min 14 /min 110/70 mm[Hg] Not Available [facility] 3 15:34:21 Date Recorded Heart rate Body height Oxygen saturation Oxygen saturation in Arterial blood by Pulse oximetry Body weight Body temperature Respiratory rate Systolic And Diastolic Provider Name and Address Organization Details Last Updated DateTime 3 83 /min 157.48 cm 98 % 98 % 71828.7 2 g 97.9 [degF] 16 /min 154/81 mm[Hg] Not Available [facility] 3 18:33:30 Date Recorded Body weight Oxygen saturation Oxygen saturation in Arterial blood by Pulse oximetry Respiratory rate Body height Heart rate Systolic And Diastolic Provider Name and Address Organization Details Last Updated DateTime 3 30671.7 2 g 98 % 98 % 18 /min 157.48 cm 88 /min 168/99 mm[Hg] Not Available [facility] 3 17:07:37 Date Recorded Body weight Heart rate Body temperature Oxygen saturation Oxygen saturation in Arterial blood by Pulse oximetry Respiratory rate Body height Systolic And Diastolic Provider Name and Address Organization Details Last Updated DateTime 3 29635.6 8 g 93 /min 98.4 [degF] 100 % 100 % 18 /min 157.48 cm 138/84 mm[Hg] Not Available [facility] 3 16:49:01 Social History None recorded. Functional Status None recorded. Mental Status None recorded. Family History Nothing Reported. Medical History No medical history recorded. Gynecological HistoryNo gynecological history recorded. Obstetrics History GPAL:G 0 P 0 0 0 0 Past Encounters Encounter ID Performer Location Encounter Start Date Encounter Closed Date Diagnosis/Indication Diagnosis SNOMED-CT Code Diagnosis ICD10 Code Diagnosis IMO Codes Diagnosis Note [id number] Chelsea Naidu MD [facility] [address] [place] [phone] 02/25/2023 15:38:30 02/26/2023 11:50:47 Acute urinary tract infection 551401608 N39.0 [id number] Gil Giang MD [facility] [address] [place] [phone] 03/13/2023 15:34:17 03/18/2023 00:09:10 Community acquired pneumonia [id number] J18.9 Patient with extensive past medical history including JERRELL, MS, asthma unresponsi ve to inhalers and steroids in the past. Reviewed pulmonolog y notes which recommende d patient to start Azithromyc in for CAP along with starting a Medrol pack. COVID negative. Agree with plan per pulm. Clinically stable at this time. Gave Albuterol neb with mild improvemen t. Discussed red flag signs for which to seek higher level of care. Initially requested labs but will wait for PCP to draw. [id number] Shane Jean Baptiste MD [facility] [address] [place] [phone] 03/30/2023 18:33:28 03/30/2023 22:56:56 Dyspnea on exertion 27469972 R06.09 As noted, we were called to see this patient regarding concerns of trouble breathing in setting of chronic lung disease. Evaluation in the field was performed by my forestry laborer colleague, as noted above, I provided real-time direction and supervisio n for this visit. The evaluation revealed clear lungs and reassuring VS. Is on a copd-style treatment of steroid and azithro per her pulm. Impression :Flare of lung disease, following with pulm and on treatment but hasn't gotten neb machine yet. Neb treatment given. Plan:Albut arjun nebContinu e regimen per pulm Primary care, considerch ranjan-in call Saturday 03/31 Dispositio n:We discussed the diagnostic uncertaint y of home visits and the risk associated with this. In this case, the patient and I felt this to be an acceptable and reasonable amount of risk given the benefit of avoiding an ED visit. We discussed the need to seek care urgently/e mergently in the setting of any new or worsening serious symptoms, particular ly worsening shortness of breath. [id number] Deonna Adams MD [facility] [address] [place] [phone] 03/31/2023 17:07:35 04/01/2023 09:33:32 Chronic obstructive pulmonary disease [id number] J44.9 63 year old female with COPD, being evaluated for SOB in the setting of not having a functional nebulizer machine. Patient reports she has been started on steroids and azithromyc in last month, but remains short of breath due to not having her nebulizer machine. Patient denies fever/chil ls. Exam notable for normal vital signs, rhonchi in right lung smith, no peripheral edema. Presentati on consistent with COPD with persistent shortness of breath in the setting of not having access to her nebulizer treatments . Duo neb treatment given, patient to FU outpatient team as indicated. I have reviewed and agree with the assessment and plan as documented by the forestry laborer. I provided real-time medical direction for this encounter and was immediatel y available to provide additional phone-base d assistance as needed. [id number] Janusz Pierre MD [address] [phone] 05/26/2023 16:26:00 05/29/2023 11:45:49 Health Concerns Section Related Observation LastModified by Organization Detai ls LastModified Time None Recorded Concern Status LastModified by Organization Details LastModified Time None Recorded Advance Directives Directive None Recorded Payers Insurance Date Sequence Insurance Name Policy Number Policy Albert Covered Member ID Albert Member ID Guarantor Name 01/21/2025 1 [facility] - DOS ON OR AFTER 2022 - DUAL ELIGIBLE - [employer] AND ONE [employer] (MEDICARE REPLACEMENT/AD VANTAGE - HMO) Bella Shabazz [id number] Bella Shabazz Notes Date Note Type Note Provider Name and Address Organization Details Recorded Time 02/25/2023 text/html HPI: Pt reporting abdominal pain, burning with urination + odor, starting to have trouble breathing had urine tested 02/20/23> positive for UTI>was given nitrofurantoin with no improvements. history of stroke + bloodclots , neuropathy ....................... ....................... ....................... ....................... ....................... ....................... ... [facility] Nursing Assessment: Comments: Prescribed Macrobid for UTI on 02/20 by PCP. UC came back on Friday, No changes made to current therapy. No improvement in symptoms. Unknown fever. Continues with abdominal pain, dysuria, and odorous urine. ....................... ....................... ....................... ....................... ....................... ....................... ... Hhas Note From Salbador Owens: PT complains of increasing lower abdominal pain with dysuria (burning) x 1 week with recent Rx nitrofurantoin providing minimal improvement. PT was normal in appearance and reports malodorous urine. PT denies chest pain. PT denies lightheadedness and dizziness. UA dipstick was performed and cultures were obtained. contacted and Rx Vantin was sent to PT preferred pharmacy. PT education was provided related to symptom worsening. VG ....................... ....................... ....................... ....................... ....................... ....................... ... Disposition: Fulfilled Chelsea Naidu MD [address] [facility],[address], [place], [phone], GM - [facility] 02/25/2023 18:30:31 03/13/2023 text/html ROS as noted in the HPI [facility] Nursing Assessment: Reason For Request: cough Chief Complaints: Cough, Shortness of Breath/Dyspnea PMH: Diabetes, Other Allergies: Penicillin Comments: Verified identity / address Member was on antibiotics for 16 days for UTI . Member is now c/o increased cough and sputum for the past few days. Member c/o being sob , has MS and lung condition . Member does not have nebs or inhalers in the home. ....................... ....................... ....................... ....................... ....................... ....................... ... Hhas Note From Sukh Patel: Pt caox3 complains of cough x 2 weeks. Was on antibiotic for UTI. Frequent productive cough with yellow/green sputum. Pt complains of dizziness and lightheadedness. Pt reports normal intake and elimination. PT also complains of headache. Pt denies chest pain, nausea, vomiting, diarrhea or any other pain or complaints. Pt reports PCP has already called in prednisone and nebulizer to pharmacy but she can't get it until tomorrow. Pt pink warm and dry, secondary exam unremarkable. Pt speaks full sentences with a steady gait, no tripoding, lung sounds rhonchii throughout, Cough infrequent and productive. Clears airway well. [facility] orders nebulizer, administered as noted. [facility] advises pt to take prescribed prednisone and use nebulizer. I went and picked up her meds so she could take her prednisone MJ. Covid neg via rapid POC. Red flags and pt education discussed. ....................... ....................... ....................... ....................... ....................... ....................... ... Disposition: Fulfilled Gil Giang MD [address] [facility],[address], [place], [phone], [employer] [facility] 03/13/2023 19:15:49 03/30/2023 text/html [facility] Nursing Assessment: Chief Complaints: Shortness of Breath/Dyspnea PMH: Diabetes Allergies: Penicillin Comments: Member reports feeling unwell - Reports having small lung disease - Been on antibiotics since 03/26 - Reports feeling SOB increased with exertion - Coughing/congestion - Sore throat and STALLINGS. Denies fever/chills - Requesting a wellness check - Lorelei GARVEY ....................... ....................... ....................... ....................... ....................... ....................... ... Hhas Note From Mark Tapia: Pt reports having small lung disease, MS, CVA, [place]. Pt sts she began with a dry cough 3 days ago which became productive last night. Her clothing man started her on azithromycin and methylprednisolone yesterday. Pt has albuterol bullets in the home but is waiting on neb machine. Pt requests a neb treatment. Pt denies CP, SOB at rest, f/n/v/d. Pt is alert, NAD, speaking full sentences while walking around. VSS. Afebrile. No change in SpO2 with exertion. Neuro exam and gait normal. Lungs CTA. Benign ABD exam. No LLE. Rapid covid and flu negative. Pt treated with albuterol neb. Pt instructed to f/u with clothing man and/or PCP tomorrow and to seek emergent medical care for new or worsening sx, which are reviewed with her. ....................... ....................... ....................... ....................... ....................... ....................... ... Disposition: Fulfilled Shane Jean Baptiste MD [address] [place] [address],[address], [place], [phone], [employer] [facility] 03/30/2023 21:39:32 03/31/2023 text/html HPI: CP reporting SOB>requesting breathing treatment>working on getting a nebulizer but states its been a process. ....................... ....................... ....................... ....................... ....................... ....................... ... [facility] Nursing Assessment: Comments: Members CP calling in to request a visit, member identified via /name. Member requesting neb treatment. [facility] given [facility] neb treatment. Member with chronic lung disease, on steroids and azithro per her clothing man. Member is awaiting a neb machine. Member stable per CP, and red flags were discussed. ....................... ....................... ....................... ....................... ....................... ....................... ... Hhas Note From Tata Browne: Sent to a call for a follow up visit to administer a neb treatment. SC8 arrives on scene, pt is alert and oriented, airway is patent. Pt states she has MS and small lung disease, and has been on a combination of antibiotics and/or steroids since Feb prescribed by her clothing man. Pt also states her clothing man ordered a nebulizer in Feb, but she hasn't received it yet. Pt states [facility] Pt's care team requested another vist today for a neb treatment. Pt complains of productive cough (difficulty bringing up mucus and sob. BP:168/99, P:88, RR:18, SpO2:98% RA; Head: unremarkable; Lung sounds: right: rhonchi; left: clear; Abdomen: soft, non-tender, no distention; Back: unremarkable; Extremities: unremarkable; Skin: pink, warm, dry; Duo neb administered, and pt reports improvement. Lung sounds: clear bilaterally; Pt has albuterol neb solution at home and states she is borrowing a nebulizer until hers is delivered. A duo neb mask/tubing kit is left with pt to use. [facility] consulted and no orders given. Red flags discussed. Pt has no further questions. ....................... ....................... ....................... ....................... ....................... ....................... ... Disposition: Anderson Deonna Adams MD [address] [facility],[address], [place], [phone], [facility] - [employer], [employer] 03/31/2023 21:27:26 05/26/2023 text/html HPI: Yola is a 63 yo female with significant medical hx including MS, Raynaud's disease, HTN, PTSD, [place], COPD, chronic pain syndrome, Hypomagnesemia, Hypokalemia, Type 2 DM, JERRELL, Orthostatic hypotension, Glaucoma, CKD 3b, Hx of CVA, CAD, chronic anticoagulation, Chronic therapeutic opiate use, and MDD. NKDA. Yola is being treated for chronic UTIs and is on Zithromax, Mbr reports that she has been feeling ill since last Friday. Mbr saw PCP on . Since Friday Yola has had nausea, general malaise, dizziness, hot and cold spells and frequent urination with little urine output each void attempt. Mbrian denies chest pain and at baseline sob with her COPD hx and no changes respiratory meyers. Mbr asking for [facility] for today. Instructed Mbr that if s/s worsen or develops chest pain or increased SOB from baseline, sever headache, to call 911 and go to ER. Mbr agreed with plan. Mbr has changed apt number to 20 and best number to reach Mbr is [phone]. Sent GC activity to CP alerting CP that an [facility] referral was sent in by this CRU RN. ....................... ....................... ....................... ....................... ....................... ....................... ... [facility] Nursing Assessment: Comments: Reviewed - Lorelei GARVEY ....................... ....................... ....................... ....................... ....................... ....................... ... Hhas Note From Tata Browne: Sent to a call for a pt complaining of nausea, general malaise, dizziness, hot and cold spells, and frequent urination with decreased urine output. CCA-01 arrives on scene, pt is alert and oriented, airway is patent. Pt state she had teeth removed on 03/16 and take prednisone and Azithromycin at baseline. Pt also has Phenergan, but states she doesn't want to take it except at night. Pt complains of nausea and difficulty drinking water (due to sensitivity) since teeth removal. Pt also complains of dizziness when standing, feeling hot/cold, general malaise and frequent urination since Friday. Pt also complains of sore throat and dry nose starting today. Pt denies headache, sinus pain, cough, cp, vomiting, diarrhea, abd pain, or fever. Pt states she has drank less than 8oz today. (sitting) BP:138/84, P:93, RR:18, SpO2:100% RA, T:98.4; (standing) BP:128/86, P:108; Head: no sinus tenderness; Throat: erythema; no edema or exudate noted; Lung sounds: clear bilaterally; Abdomen: soft, non-tender, no distention; Back: unremarkable; Extremities: neuropathy and pain at baseline; otherwise unremarkable; Skin: pink, dry, poor skin turgor; Rapid covid test: neg; Rapid flu test: neg; Rapid strep test: neg; Urine sample obtained: yellow, clear, concentrated; Urine dip: uploaded to [employer]. Pt requests IV fluids stating she doesn't think she can drink fluid due to nausea. Pt states Zofran doesn't work for her. Unable to obtain [facility] contact initially. Attempts at IV access unsuccessful. Pt requests transport to ED stating her symptoms will only get worse and she needs IV fluids. 911 called, Pt care transferred to [facility] Dept. Pt transported to [facility] ED. C advised of pt's situation and choice to go to ED. ....................... ....................... ....................... ....................... ....................... ....................... ... Disposition: Fulfilled Janusz Pierre MD 30 [facility],11TH FLOOR, [place], [address], [facility] 05/29/2023 11:45:46 OBGyn Episode No OBEpisode recorded.
--- OUTSIDE RECORDS SUMMARY | 2025-04-16 20:56 | XMS_ITS | Encounter Summary ---
Author Organization [facility] Address [address] [place] [address] [address] [place] [address] Phone Care Team Providers Care Sweet Dough Mixer Name Role Phone Noe Mccann MD Unavailable Unavailable Audra Gutierrez MD Unavailable Edouard Mosley MD Unavailable Nara Tejada MD Unavailable [phone] Jose Thomas MD Unavailable +- [phone] Trish Hammonds MD Unavailable +[phone] Celina He DPM Unavailable +[phone] Elizabeth Goode MD Unavailable [phone] Martin Green MD Primary Care Provider +[phone] Martin Green MD Primary Care Provider +-[phone] Griselda Bello NP Primary Care Provider + [phone] Encounter Details Date Type Department Care Team (Late st Contact Info) Description 07/26/2022 Procedure Pass [facility], Ct Scan - [facility] [address] [place] [address] Social History Tobacco Use Types Packs/Day Years [...] 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 documented as of this encounter Functional Status * Calculated C-SSRS Risk Score (Lifetime/Recent) Answer Date of Assessment Author No Risk Indicated 07/26/2022 9:23 AM Priscila Mcadams RN * [place] Suicide Severity Rating Scale (Screener/Recent Self-Report) Question [...] Description 04/28/2025 2:00 PM EST Office Visit [facility] [address] 3rd [facility], [address] [place] [address] Minda Nelson DNP [address] [place] [address] 07/29/2025 1:00 PM EST Office Visit [facility] [place] [address] [address] 3rd [facility], [address] [address] Minda Nelson DNP [address] [place] [address] 08/31/2025 11:50 AM EDT Office Visit [facility], All[facility] 10 [facility] [address] Audra Gutierrez MD 10 [facility] 2nd [place] [address] [email or web address] documented as of this encounter Visit Diagnoses [...] documented as of this encounter Care Teams Sweet Dough Mixer Relationship Specialty Start Date End Date Martin Green MD [address] [place] [address] [email or web address] PCP - General Internal Medicine 04/12/20 05/25/23 Martin Green MD [address] [place] [phone] [email or web address] PCP - General Internal Medicine 05/26/23 01/25/25 Griselda Bello NP [address] [place] [address] PCP - General Nurse Practitioner 01/26/25 Noe Mccann MD Ophthalmology 02/11/19 Audra Gutierrez MD [address] [place] [address] 2nd [place] [address] [email or web address] Intensive Care 02/11/19 Edouard Mosley MD [address] [place] [address] [email or web address] Plastic and Reconstructive Surgery 02/11/19 Nara Tejada MD [address] [place] [address], 3 [place] [address] [email or web address] Consulting Provider Nephrology 02/11/19 Jose Thomas MD [address] [place] [address] [email or web address] Consulting Provider Infectious Diseases 02/11/19 Trish Hammonds MD [address] [place] [address], [address] [address] [email or web address] Rheumatology 02/11/19 Celina He DPM [address] [place] [address], [address] [address] Podiatry 02/11/19 Elizabeth Goode MD 301 [facility] 200 [place] [address] Psychologist 03/27/20 documented as of this encounter Additional Source Comments The information contained in this document represents components of the legal health record. It is not the complete legal health record.[facility]
--- OUTSIDE RECORDS SUMMARY | 2025-04-16 20:56 | XMS_ITS | Encounter Summary ---
Author Organization [facility] Address [address] [place] [address] [address] [place] [address] Phone Care Team Providers Care Webmethods Architect Name Role Phone Noe Mccann MD Unavailable Unavailable Audra Gutierrez MD Unavailable Edouard Mosley MD Unavailable Nara Tejada MD Unavailable [phone] Jose Thomas MD Unavailable +- [phone] Trish Hammonds MD Unavailable +[phone] Celina He DPM Unavailable [phone] Elizabeth Goode MD Unavailable [phone] Martin Green MD Primary Care Provider +[phone] Martin Green MD Primary Care Provider +-[phone] Griselda Bello NP Primary Care Provider + [phone] Encounter Details Date Type Department Care Team (Late st Contact Info) Description 07/26/2022 Procedure Pass [facility], [address] [address] Social History Tobacco Use Types Packs/Day Years [...] 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, [address] [address] Minda Nelson DNP [address] [place] [address] 07/29/2025 1:00 PM EST Office Visit [facility] [address] [facility], [address] [address] Minda Nelson DNP [address] [place] [address] 08/31/2025 11:50 AM EDT Office Visit [facility] Pulmonary, Allergy and Critical Care Medicine 10 [facility] [place] [address] Audra Gutierrez MD 10 [facility] 2nd [place] [address] [email or web address] documented as of this encounter Visit Diagnoses [...] documented as of this encounter Care Teams Webmethods Architect Relationship Specialty Start Date End Date Martin Green MD [address] [place] [address] [email or web address] PCP - General Internal Medicine 04/12/20 05/25/23 Martin Green MD [address] [place] [phone] [email or web address] PCP - General Internal Medicine 05/26/23 01/25/25 Griselda Bello NP [address] [place] [address] PCP - General Nurse Practitioner 01/26/25 Noe Mccann MD Ophthalmology 02/11/19 Audra Gutierrez MD [address] [place] [address] 2nd [place] [address] [email or web address] Intensive Care 02/11/19 Edouard Mosley MD [address] [place] [address] [email or web address] Plastic and Reconstructive Surgery 02/11/19 Nara Tejada MD [address] [place] [address], 3 [place] [address] [email or web address] Consulting Provider Nephrology 02/11/19 Jose Thomas MD [address] [place] [address] [email or web address] Consulting Provider Infectious Diseases 02/11/19 Trish Hammonds MD [address] [place] [address], [address] [address] [email or web address] Rheumatology 02/11/19 Celina He DPM [address] [place] [address], [address] [address] Podiatry 02/11/19 Elizabeth Goode MD 301 [facility] 200 [place] [address] Psychologist 03/27/20 documented as of this encounter Additional Source Comments The information contained in this document represents components of the legal health record. It is not the complete legal health record.[facility]
--- OUTSIDE RECORDS SUMMARY | 2025-04-16 20:56 | XMS_ITS | Encounter Summary ---
Author Organization [facility] Address [address] [facility] [address] [place] [address] Phone Care Team Providers Care Engraver Wood Name Role Phone Olvin Harvey MD Primary Care Provide r Olvin Harvey MD Unavailable [phone] Chelsy MclaughlinW Unavailable [email or web address] [email or web address] DO Primary Care Provider Krissy Hernandez Primary Care Pro vider Martin Green MD Primary Care Provider +[phone] Martin Bales MD Unavailable Jose Gallagher MD Unavailable [phone] Ramiro Schmidt MD Unavailable Enio Starkey MD Unavailable [phone] Kenneth Carter MD Unavailable Noe Mccann MD Unavailable Unavailable Audra Gutierrez MD Unavailable [phone] Edouard Mosley MD Unavailable Martin Green MD Primary Care Provider + Nara Tejada MD Unavailable [phone] Jose Thoams MD Unavailable + [phone] Trish Hammonds MD Unavailable +- [phone] PayamcharCelina DPM Unavailable [phone] Olvin Harvey MD Unavailable [phone] Fabián Seaman MD Unavailable +[phone] Elizabeth Goode MD Unavailable [phone] Martin Green MD Primary Care Provider + Martin Green MD Primary Care Provider +5 Griselda Bello NP Primary Care Provider [phone] Encounter Details Date Type Department Care Team (Latest Contact Info) Description 08/07/2017 Transcribe Orders [facility] Main 30 [place] [address] Julien Steel MD [address] [place] [address] [email or web address] Hypercalcemia (Primary Dx) Social History Tobacco Use Types [...] 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 documented as of this encounter Plan of Treatment Upcoming Encounters Date Type Department Care Team (Late st Contact Info) Description 04/28/2025 2:00 PM EST Office Visit [facility] [address] Floor, [address] [place] [address] Minda Nelson DNP 22 [facility], [address] [address] 07/29/2025 1:00 PM EST Office Visit [facility] [address] 3rd Floor, [address] [place] [address] Minda Nelson DNP 22 [facility], [address] [address] [email or web address] 08/31/2025 11:50 AM EDT Office Visit [facility] Pulmonary, Allergy and Critical Care Medicine [address] [place] [address] Audra Gutierrez MD [address] [place] [address] [email or web address] documented as of this encounter Results * Vitamin A (08/07/2017 2:56 PM EST) [facility] VITAMIN A 71.2 32.5 - 78.0 mcg/dL [facility] Comment: (NOTE) ADDITIONAL INFORMATION This test was developed and its performance characteristics determined by [facility] in a manner consistent with CLIA requirements. This test has not been cleared or approved by the U.S. Food and Drug Administration. Blood 08/07/2017 2:56 PM EST 08/08/2017 10:16 AM EST us Julien Steel MD LAB BLOOD ORDERABLES Final Re sult [facility] [address] [place] [address] * (ABNORMAL) Renal panel (08/07/2017 2:56 PM EST) SODIUM 140 133 - 146 mmol/L [facility] POTASSIUM 3.5 3.3 - 5.1 mmol/L [facility] CHLORIDE 97 96 - 108 mmol/L [facility] CO2 29 21 - 35 mmol/L [facility] GLUCOSE 183(H) 70 - 99 mg/dL [facility] BUN 14 6 - 19 mg/dL [facility] CREATININE 1.00 0.5 - 1.5 mg/dL [facility] CALCIUM 9.9 8.4 - 10.3 mg/dL [facility] PHOSPHORUS 1.9(L) 2.7 - 4.5 mg/dL [facility] ALBUMIN 3.9 3.9 - 4.8 g/dL [facility] EGFR 57(L) >60 mL/min/1.7 3m2 [facility] Comment:Abnormal if <60. If patient is -[place], multiply the result by 1.21. ANION GAP 18 10 - 20 mmol/L [facility] Blood 08/07/2017 2:56 PM EST 08/07/2017 3:03 PM EST Julien Steel MD LAB BLOOD BKR ORDERABLES Nagle l Result Performing Organization Address City/[facility]/ZIP Co de Phone Number [address] [address] * (ABNORMAL) 25-OH vitamin D (08/07/2017 2:56 PM EST) 25 OH VIT D (TOTAL) 22(L) 30 - 1,000 ng/mL [facility] Blood 08/07/2017 2:56 PM EST 08/07/2017 3:03 PM EST Julien Steel MD LAB BLOOD BKR ORDERABLES Angle l Result Performing Organization Address City/[facility]/ZIP Co de Phone Number [address] [address] * (ABNORMAL) Magnesium (08/07/2017 2:56 PM EST) MAGNESIUM 1.4(L) 1.6 - 2.6 mg/dL [facility] Blood 08/07/2017 2:56 PM EST 08/07/2017 3:03 PM EST Julien Steel MD LAB BLOOD BKR ORDERABLES Angle l Result [address] [address] * TSH (08/07/2017 2:56 PM EST) TSH 0.45 0.27 - 4.20 uIU/mL [facility] Blood 08/07/2017 2:56 PM EST 08/07/2017 3:03 PM EST Julien Steel MD LAB BLOOD BKR ORDERABLES Angle l Result Performing Organization Address [facility]/ZIP Co de Phone Number [address] [address] * Parathyroid hormone (PTH) (08/07/2017 2:56 PM EST) PARATHYROID HORMONE 16 15 - 65 pg/mL [facility] Blood 08/07/2017 2:56 PM EST 08/07/2017 3:03 PM EST Julien Steel MD LAB BLOOD BKR ORDERABLES Angle l Result Performing Organization Address City/[facility]/ZIP Co de Phone Number [address] [address] * (ABNORMAL) Hemoglobin A1c (08/07/2017 2:56 PM EST) HEMOGLOBIN A1C 6.6(H) 4.3 - 5.8 % [facility] Blood 08/07/2017 2:56 PM EST 08/07/2017 3:03 PM EST us Julien Steel MD LAB BLOOD BKR ORDERABLES Angle l Result [address] [address] documented in this encounter Visit Diagnoses Diagnosis Hypercalcemia- Primary documented in this encounter Additional Health [...] documented as of this encounter Care Teams Engraver Wood Relationship Specialty Start Date End Date Olvin Harvey MD 22 [facility] [place] 1 [place] [address] [email or web address] PCP - General 12/07/13 06/11/18 Ema Kaufman DO 9 [place] [address] [email or web address] PCP - General 06/12/18 09/22/18 Krissy Hernandez PA [address] [place] [address] [email or web address] PCP - General Internal Medicine 09/23/18 10/04/18 Martin Green MD [address] [place] [address] [email or web address] PCP - General Internal Medicine 10/05/18 02/10/19 Martin Green MD [address] [place] [address] [email or web address] PCP - General Internal Medicine 02/11/19 04/11/20 Martin Green MD [address] [place] [address] [email or web address] PCP - General Internal Medicine 04/12/20 05/25/23 Martin Green MD [address] [place] [phone] [email or web address] PCP - General Internal Medicine 05/26/23 01/25/25 Griselda Bello, GAEL [address] [place] [address] PCP - General Nurse Practitioner 01/26/25 Olvin Harvey MD [address] [address] [email or web address] Assigned Provider 04/12/17 02/10/19 Chelsy Mclaughlin [facility] [address] [address] [email or web address] Jailer 08/08/17 07/05/18 Martin Bales MD [address] [place] [address] [email or web address] Gastroenterology 10/07/18 11/13/20 Jose Gallagher MD [address] [place] [address], [address] [place] [address] [email or web address] Urology 10/07/18 11/13/20 Ramiro Schmidt MD [address] [place] [address], [address] [place] [address] [email or web address] Endocrinology 02/11/19 11/13/20 Enio Starkey MD [address] [place] [address], [address] [place] [address] [email or web address] Cardiology 02/11/19 11/13/20 Kenneth Carter MD [address] [place] [address] Neurology 02/11/19 11/13/20 Noe Mccann MD Ophthalmology 02/11/19 Audra Gutierrez MD [address] [place] [address] 2nd [place] [address] [email or web address] Intensive Care 02/11/19 Edouard Mosley MD [address] [place] [address], [address] [place] [address] [email or web address] Plastic and Reconstructive Surgery 02/11/19 Nara Tejada MD [address] [place] [address], 3 [place] [address] [email or web address] Consulting Provider Nephrology 02/11/19 Jose Thomas MD [address] [place] [address] [email or web address] Consulting Provider Infectious Diseases 02/11/19 Trish Hammonds MD [address] [place] [address], [facility] 203 [place] [address] [email or web address] Rheumatology 02/11/19 Celina He DPM [address] [place] [address], [address] [place] [address] [email or web address] Podiatry 02/11/19 Olvin Harvey MD 22 [facility] Floor 1 [place] [address] [email or web address] Insurance Assigned Provider 04/12/17 03/06/19 Fabián Seaman MD [address] [place] [address], [address] [place] [address] [email or web address] Insurance Assigned Provider 03/06/19 07/09/19 Elizabeth Goode MD [address] [place] [address] Psychologist 03/27/20 documented as of this encounter Additional Source Comments The information contained in this document represents components of the legal health record. It is not the complete legal health record.[facility]
--- OUTSIDE RECORDS SUMMARY | 2025-04-16 20:56 | XMS_ITS | Encounter Summary ---
Author Organization [facility] Address [address] [place] [address] [address] [place] [address] Phone Care Team Providers Care Emergency Vehicle Technician Name Role Phone Noe Mccann MD Unavailable Unavailable Audra Gutierrez MD Unavailable [phone] Edouard Mosley MD Unavailable Nara Tejada MD Unavailable [phone] Jose Thomas MD Unavailable +- [phone] Trish Hammonds MD Unavailable [phone] Celina He DPM Unavailable [phone] Elizabeth Goode MD Unavailable [phone] Martin Green MD Primary Care Provider +[phone] Martin Green MD Primary Care Provider +-[phone] Griselda Bello NP Primary Care Provider + [phone] Encounter Details Date Type Department Care Team (Late st Contact Info) Description 07/26/2022 Procedure Pass [facility], [address] [address] Social History Tobacco Use Types Packs/Day Years [...] 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 documented as of this encounter Functional Status * Calculated C-SSRS Risk Score (Lifetime/Recent) Answer Date of Assessment Author No Risk Indicated 07/26/2022 9:23 AM Priscila Mcadams RN * [place] Suicide Severity Rating Scale (Screener/Recent Self-Report) Question [...] Description 04/28/2025 2:00 PM EST Office Visit [facility] [address] 3[address] [facility], [address] [address] Minda Nelson DNP [address] [place] [address] 07/29/2025 1:00 PM EST Office Visit [facility] [address] 3[address] [facility], [address] [address] Minda Nelson DNP [address] [place] [address] 08/31/2025 11:50 AM EDT Office Visit [facility], Allergy [facility] Critical [facility] Medicine 10 [facility] [place] [address] Audra Gutierrez MD 10 [facility] 2nd [place] [address] [email or web address] documented as of this encounter Visit Diagnoses [...] documented as of this encounter Care Teams Emergency Vehicle Technician Relationship Specialty Start Date End Date Martin Green MD [address] [place] [address] [email or web address] PCP - General Internal Medicine 04/12/20 05/25/23 Martin Green MD [address] [place] [phone] [email or web address] PCP - General Internal Medicine 05/26/23 01/25/25 Griselda Bello NP [address] [place] [address] PCP - General Nurse Practitioner 01/26/25 Noe Mccann MD Ophthalmology 02/11/19 Audra Gutierrez MD [address] [place] [address] 2nd [place] [address] [email or web address] Intensive Care 02/11/19 Edouard Mosley MD [address] [place] [address] [email or web address] Plastic and Reconstructive Surgery 02/11/19 Nara Tejada MD [address] [place] [address], 3 [place] [address] [email or web address] Consulting Provider Nephrology 02/11/19 Jose Thomas MD [address] [place] [address] [email or web address] Consulting Provider Infectious Diseases 02/11/19 Trish Hammonds MD [address] [place] [address], [address] [address] [email or web address] Rheumatology 02/11/19 Celina He DPM [address] [place] [address], [address] [address] Podiatry 02/11/19 Elizabeth Goode MD 301 [facility] 200 [place] [address] Psychologist 03/27/20 documented as of this encounter Additional Source Comments The information contained in this document represents components of the legal health record. It is not the complete legal health record.[facility]
--- OUTSIDE RECORDS SUMMARY | 2025-04-16 20:56 | XMS_ITS | Encounter Summary ---
Author Organization [facility] Address [address] [place] [address] [address] [place] [address] Phone Care Team Providers Care Director Advertising Name Role Phone Noe Mccann MD Unavailable Unavailable Audra Gutierrez MD Unavailable [phone] Edouard Mosley MD Unavailable Nara Tejada MD Unavailable [phone] Jose Thomas MD Unavailable [phone] Trish Hammonds MD Unavailable [phone] Celina He DPM Unavailable [phone] Elizabeth Goode MD Unavailable [phone] Martin Green MD Primary Care Provider [phone] Martin Green MD Primary Care Provider +[phone] Griselda Bello NP Primary Care Provider + [phone] Encounter Details Date Type Department Care Team (Late st Contact Info) Description 07/26/2022 Procedure Pass [facility], [address] [address] Social History Tobacco Use Types Packs/Day Years [...] 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 documented as of this encounter Functional Status * Calculated C-SSRS Risk Score (Lifetime/Recent) Answer Date of Assessment Author No Risk Indicated 07/26/2022 9:23 AM Priscila Mcadams RN * [place] Suicide Severity Rating Scale (Screener/Recent Self-Report) Question [...] Description 04/28/2025 2:00 PM EST Office Visit [facility] [address] [facility], [address] [address] Minda Nelson DNP [address] [place] [phone] 07/29/2025 1:00 PM EST Office Visit [facility] [address] [facility], [address] [address] Minda Nelson DNP [address] [place] [phone] 08/31/2025 11:50 AM EDT Office Visit [facility] [address] [facility] [place] [address] Audra Gutierrez MD [address] [facility] 2nd [place] [address] [email or web address] documented as of this encounter [...] documented as of this encounter Care Teams Director Advertising Relationship Specialty Start Date End Date Martin Green MD [address] [place] [phone] [email or web address] PCP - General Internal Medicine 04/12/20 05/25/23 Martin Green MD [address] [place] [phone] [email or web address] PCP - General Internal Medicine 05/26/23 01/25/25 Griselda Bello NP [address] [place] [phone] PCP - General Nurse Practitioner 01/26/25 Noe Mccann MD Ophthalmology 02/11/19 Audra Gutierrez MD [address] [place] [address] 2nd [place] [address] [email or web address] Intensive Care 02/11/19 Edouard Mosley MD [address] [place] [phone] [email or web address] Plastic and Reconstructive Surgery 02/11/19 Nara Tejada MD [address] [place] [address], [address] [place] [address] [email or web address] Consulting Provider Nephrology 02/11/19 Jose Thomas MD [address] [place] [address] [email or web address] Consulting Provider Infectious Diseases 02/11/19 Trish Hammonds MD [address] [place] [address], [address] [address] [email or web address] Rheumatology 02/11/19 Celina He DPM [address] [place] [address], [address] [address] Podiatry 02/11/19 Elizabeth Goode MD [address] [facility] [address] [place] [address] Psychologist 03/27/20 documented as of this encounter Additional Source Comments The information contained in this document represents components of the legal health record. It is not the complete legal health record.[facility]
--- OUTSIDE RECORDS SUMMARY | 2025-04-16 20:56 | XMS_ITS ---
Author Organization [facility] Care Team Providers Care Labor And Delivery Nurse Name Role Phone Elder, Valerie Waters Unavailable Unavailable Jess FLAT LOCK OPERATOR, Tiera Hathaway Unavailable Unavailable Giuliana Claros Unavailable Unavailable Allergies and adverse reactions Code CodeSystem Substance Reaction Severity StartDate Concern Status acetaminophen-sa l icylamide Unknown 04/15/2025 active 873962 RXNORM Advair Diskus Dyspnea (code- 154308568, SNOMED CT) Unknown 04/15/2025 active 808192 RXNORM Augmentin Anaphylaxis (code- 89468759, SNOMED CT) Unknown 04/15/2025 active 3498 RXNORM Benadryl Anaphylaxis (code- 67855028, SNOMED CT) Unknown 04/15/[address] Cephalosporins Dyspnea (code- 808499220, SNOMED CT) Unknown 04/15/2025 active 2551 RXNORM Ciprofloxacin Unknown 04/15/2025 active 22693 RXNORM Clarithromycin Dyspnea (code- 805342096, SNOMED CT) Unknown 04/15/2025 active 2670 RXNORM Codeine Dyspnea (code- 200282416, SNOMED CT) Unknown 04/15/2025 active 87695 RXNORM Cozaar Dyspnea (code- 782066474, SNOMED CT) Unknown 04/15/2025 active 647859 RXNORM Cymbalta Unknown 04/15/2025 active 3640 RXNORM Doxycycline Dyspnea (code- 191633513, SNOMED CT) Unknown 04/15/2025 active 71189 RXNORM DULoxetine Unknown 04/15/2025 active 2177 RXNORM Duricef Dyspnea (code- 503839052, SNOMED CT) Unknown 04/15/2025 active 4493 RXNORM FLUoxetine Unknown 04/15/2025 active 34429 RXNORM Gabapentin Unknown 04/15/2025 active 35432 RXNORM Levaquin Dyspnea (code- 750143150, SNOMED CT) Unknown 04/15/2025 active 093458 RXNORM Lexapro Altered mental status (code- 862776087, SNOMED CT) Unknown 04/15/2025 active 98334 RXNORM Lisinopril Unknown 04/15/2025 active 788164 RXNORM Lyrica Unknown 04/15/2025 active 6809 RXNORM metFORMIN Unknown 04/15/[address] NSAIDs Unknown 04/15/2025 active 88650 RXNORM Ondansetron Unknown 04/15/2025 active 7984 RXNORM Penicillin Anaphylaxis (code- 49478529, SNOMED CT) Unknown 04/15/2025 active Red Blood Cells Unknown 04/15/[address] Sulfa Antibiotics Anaphylaxi s (code- 32558755, SNOMED CT) Unknown 04/15/2025 active Sulfamethoxazole / Sulfadiazine/Trim ethoprim Nausea and vomiting (code- 35407700, SNOMED CT) Unknown 04/15/2025 active 751327 RXNORM Toradol Dyspnea (code- 546259469, SNOMED CT) Unknown 04/15/2025 active Care Team Name Role Address Phone Organization Dates Valerie Sargent PCP [address] [address], [place], [address], [place] (Office): : [facility] 04/15/2025 - present Tiera Mercado NP [address] [address], [facility] (Office): [facility] 04/15/2025 - [place], [address], [place] (Office): [facility] 04/15/2025 - present Encounters Encounter Type Code Code System Description Performer Discharge Disposition Service Delivery Location Date Ambulatory Encounter CPT Code = 76990 G35.D ICD 10 MULTIPLE SCLEROSIS, UNSPECIFIED [facility] [address] n Address: [address] [place] [address], [address] [place] [address]. 04/15 Ambulatory Encounter CPT Code = [id number] Chronic pain syndrome [facility] [address] n Address: [address] [place] [address], [address] [place] [address]. 04/15 Ambulatory Encounter CPT Code = [id number] Fibromyalgia [facility] [address] n Address: [address] [place] [address], [phone] [place] [address]. 04/15 Ambulatory Encounter CPT Code = [id number] Raynaud''s disease [facility] [address] n Address: [address] [place] [address], [phone] [place] [address]. 04/15 Ambulatory Encounter CPT Code = [id number] Asthenia [facility] [address] n Address: [address] [place] [address], [phone] [place] [address]. 04/15 Ambulatory Encounter CPT Code = [id number] Schizophrenia [facility] [address] n Address: [address] [place] [address], [phone] [place] [address]. 04/15 Ambulatory Encounter CPT Code = [id number] Anxiety disorder [facility] [address] n Address: [address] [place] [address], [phone] [place] [address]. 04/15 Ambulatory Encounter CPT Code = [id number] Major depression, single episode [facility] [address] n Address: [address] [place] [address], [phone] [place] [address]. 04/15 Ambulatory Encounter CPT Code = [id number] Disorder of nervous system due to type 2 diabetes mellitus [facility] [address] n Address: [address] [place] [address] [facility] [place], [address] [place] [address]. 04/15 Ambulatory Encounter CPT Code = [id number] Polyneuropathy due to type 2 diabetes mellitus [facility] [address] n Address: [address] [place], [place] [address]by [facility] [place], [address] [place] [address]. 04/15 Ambulatory Encounter CPT Code = [id number] Posttraumatic stress disorder [facility] [address] n Address: [address] [place], [place] [address]by [facility] [place], [address] [place] [address]. 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 04/15 Ambulatory Encounter CPT Code = [id number] Vitamin D deficiency [facility] [address] n Address: [address] [place], [place] [address]by [facility] [place], [address] [place] [address]. 04/15 Ambulatory Encounter CPT Code = [id number] Muscle weakness [facility] [address] n Address: [address] [place], [place] [address]by [facility] [place], [address] [place] [address]. 04/15 Ambulatory Encounter CPT Code = [id number] Unsteady when standing [facility] [address] n Address: [address] [place], [place] [address]by [facility] [place], [address] [place] [address]. 04/15 Ambulatory Encounter CPT Code = [id number] Essential hypertension [facility] [address] n Address: [facility] [place], [address] [place] [address]. 04/15 Ambulatory Encounter CPT Code = [id number] Hyperlipidemia [facility] [address] n Address: [facility], [place], [place], [address] [place] [address]. 04/15 Ambulatory Encounter CPT Code = [id number] Type 2 diabetes mellitus without complication [facility] [address] n Address: [place] , [place], [place], [address] [place] [address]. 04/15 Ambulatory Encounter CPT Code = [id number] Pulmonary embolism [facility] [address] n Address: [facility], [facility] [place], [address] [place] [address]. 04/15 Ambulatory Encounter CPT Code = [id number] Long-term current use of anticoagulant [facility] [address] n Address: [facility], [place], [place], [address] [place] [address]. 04/15 Ambulatory Encounter CPT Code = [id number] Polyneuropathy [facility] [address] n Address: [facility] [place], [address] [place] [address]. 04/15 Ambulatory Encounter CPT Code = [id number] Dysphagia [facility] [address] n Address: [facility] , [place], [place], [address] [place] [address]. 04/15 Goals Section Goals Description Status Target Date The resident will be free fr om any s/sx of hyperglycemia through the review date. Active 07/14/2025 The resident will be free fr om any s/sx of hypoglycemia through the review date. Active 07/14/2025 The resident will be free fr om discomfort or adverse reactions related to anticoagulant use through the review date. Active 07/14/2025 The resident will be free fr om discomfort or adverse reactions related to antidepressant therapy through the review date. Active 07/14/2025 The resident will be free of any discomfort or adverse side effects of hypnotic use through the review date. Active 07/14 The resident will be free of falls through the r eview date. Active 07/14/2025 The resident will have no co mplications related to diabetes through the review date. Active 07/14/2025 The resident will not have a n interruption in normal activities due to pain through the review date. Active 07/14/2025 The resident will verbalize adequate relief of pain or ability to cope with incompletely relieved pain through the review date. Active 07/14/2025 Functional Status Code Name Recorded Time Value Entered By Chair/mah-zb-gcitn transfer 04/16/2025 Dependent kmolina Does the resident use a wheelchair and/or scooter? 04/16/2025 Yes (qualifier value) kmolina Eating 04/16/2025 Setup or clean-up assistance kmolina Indicate the type of wheelch air or scooter used 04/16/2025 Independent kmolina Lower body dressing 04/16/2025 Substantial/ maximal assistance kmolina Lying to sitting on side of bed 04/16/2025 Substantial/maximal assistance kmolina Oral hygiene 04/16/2025 Setup or clean-up assistance kmolina Personal hygiene 04/16/2025 Setup or clean-up assist ance kmolina Putting on/taking off footwear 04/16/2025 S ubstantial/maximal assistance kmolina Roll left and right 04/16/2025 Substantial/ maximal assistance kmolina Shower/bathe self 04/16/2025 Substantial/ma ximal assistance kmolina Sit to lying 04/16/2025 Substantial/maxi mal assistance kmolina Sit to stand 04/16/2025 Substantial/maxi mal assistance kmolina Toilet transfer 04/16/2025 Dependent kmolina Toileting hygiene 04/16/2025 Dependent kmolina Transferring 04/16/2025 Extensive Assistance kmolina Upper body dressing 04/16/2025 Partial/moderate assi stance kmolina Walk 10 feet 04/16/2025 Not assessed kmolina Walk 150 feet 04/16/2025 Not assessed kmolina Walk 50 feet 04/16/2025 Not assessed kmolina Wheel 150 feet 04/16/2025 Dependent kmolina Wheel 50 feet with two turns 04/16/2025 Dependent kmolina Medications Section Medication Name Status Code CodeSystem Dose Route Frequency Admin Type Sig Text Start Date End Date Indication Ketorolac Tromethamin e Ophthalmic Solution 0.5 % active 71725 7 RXNORM 1 drop Ophtha lmic three times a day Routin e Insti ll 1 drop in right eye three times a day for eye healt h 2024 - eye health Pantoprazol e Sodium Oral Tablet Delayed Release 20 MG active 64794 2 RXNORM 1 table t Oral one time a day Routin e Give 1 table t by mouth one time a day for GERD 2024 - GERD Lidocaine External Patch 4 % active 61507 94 RXNORM n/a n/a Topica l in the morning Routin e Apply to back topic ally in the morni ng for pain 2 patch es 2024 - pain Latanoprost Ophthalmic Emulsion 0.005 % active 88536 43 RXNORM 1 drop Ophtha lmic at bedtime Routin e Insti ll 1 drop in both eyes at bedti me for eye healt h 2024 - eye health One-A-Day Womens Oral Tablet active 1 table t Oral one time a day Routin e Give 1 table t by mouth one time a day for suppl ement 2024 - supplement Insulin Lispro Injection Solution 100 UNIT/ML active 85135 0 RXNORM n/a n/a Subcut aneous before meals Routin e Injec t as per slidi ng scale : if 150 - 199 = 2 units ; 200 - 249 = 4 units ; 250 - 299 = 6 units ; 300 - 349 = 8 units ; 350 - 399 = 10 units notif y medic al if BS <70 or & gt;40 0, subcu taneo usly befor e meals relat ed to TYPE 2 DIABE ARPAN MELLI TUS WITHO UT COMPL ICATI ONS (E11. 9) AND Injec t 6 unit subcu taneo usly with meals relat ed to TYPE 2 DIABE ARPAN MELLI TUS WITHO UT COMPL ICATI ONS (E11. 9) AND Injec t 2 unit subcu taneo usly as neede d for take with snack s as neede d relat ed to TYPE 2 DIABE ARPAN MELLI TUS WITHO UT COMPL ICATI ONS (E11. 9) 2024 - - 22923 0 RXNORM 6 unit Subcut aneous with meals Routin e Injec t as per slidi ng scale : if 150 - 199 = 2 units ; 200 - 249 = 4 units ; 250 - 299 = 6 units ; 300 - 349 = 8 units ; 350 - 399 = 10 units notif y medic al if BS <70 or & gt;40 0, subcu taneo usly befor e meals relat ed to TYPE 2 DIABE ARPAN MELLI TUS WITHO UT COMPL ICATI ONS (E11. 9) AND Injec t 6 unit subcu taneo usly with meals relat ed to TYPE 2 DIABE ARPAN MELLI TUS WITHO UT COMPL ICATI ONS (E11. 9) AND Injec t 2 unit subcu taneo usly as neede d for take with snack s as neede d relat ed to TYPE 2 DIABE ARPAN MELLI TUS WITHO UT COMPL ICATI ONS (E11. 9) 2024 - - 11089 0 RXNORM 2 unit Subcut aneous as needed PRN Injec t as per juvenal ng scale : if 150 - 199 = 2 units ; 200 - 249 = 4 units ; 250 - 299 = 6 units ; 300 - 349 = 8 units ; 350 - 399 = 10 units notif y medic al if BS <70 or & gt;40 0, subcu taneo usly befor e meals relat ed to TYPE 2 DIABE ARPAN MELLI TUS WITHO UT COMPL ICATI ONS (E11. 9) AND Injec t 6 unit subcu taneo usly with meals relat ed to TYPE 2 DIABE ARPAN MELLI TUS WITHO UT COMPL ICATI ONS (E11. 9) AND Injec t 2 unit subcu taneo usly as neede d for take with snack s as neede d relat ed to TYPE 2 DIABE ARPAN MELLI TUS WITHO UT COMPL ICATI ONS (E11. 9) 2024 - take with snacks as needed Brimonidine Tartrate Ophthalmic Solution 0.2 % active 09695 0 RXNORM 1 drop Ophtha lmic two times a day Routin e Insti ll 1 drop in both eyes two times a day for eye healt h 2024 - eye health Nystatin External Powder 532191 UNIT/GM active 98394 6 RXNORM n/a n/a Topica l every day and evening shift Routin e Apply to funga l rash topic ally every day and eveni ng shift for rash 2024 - rash Empaglifloz in Oral Tablet 10 MG active 20963 58 RXNORM 1 table t Oral one time a day Routin e Give 1 table t by mouth one time a day relat ed to TYPE 2 DIABShekhar VANESSA WITHO UT COMPL ICATI ONS (E11. 9) 2024 - - Trulicity Subcutaneou s Solution Auto-inject or 3 MG/0.5ML active 08419 79 RXNORM 3 mg Subcut aneous one time a day Routin e Injec t 3 mg subcu taneo usly one time a day every Fri relat ed to TYPE 2 DIABShekhar VANESSA WITHO UT COMPL ICATI ONS (E11. 9) 2024 - - Sarna External Lotion 0.5-0.5 % active n/a n/a Topica l as needed PRN Apply to skin topic ally as neede d for itchi ng 2024 - itching Lantus SoloStar Subcutaneou s Solution Pen-injecto r 100 UNIT/ML active 51150 2 RXNORM 30 unit Subcut aneous at bedtime Routin e Injec t 30 unit subcu taneo usly at bedti me relat ed to TYPE 2 MARLENE VANESSA WITHO UT COMPL ICATI ONS (E11. 9) 2024 - - HyperSal Inhalation Nebulizatio n Solution 7 % active 18353 7 RXNORM 4 ml Inhala tion two times a day Routin e 4 ml inhal e orall y via nebul izer two times a day for resp. healt h 2024 - resp. health traZODone HCl Oral Tablet 50 MG active 88083 7 RXNORM 1 table t Oral as needed PRN Give 1 table t by mouth every 6 hours as neede d for insom felix 2024 - insomnia Aspirin Oral Tablet Chewable 81 MG active 21851 2 RXNORM 1 table t Oral one time a day Routin e Give 1 table t by mouth one time a day for heart healt h 2024 - heart health diazePAM Oral Tablet 5 MG active 17248 1 RXNORM 1 table t Oral as needed PRN Give 1 table t by mouth every 8 hours as neede d for anxie ty 2024 - anxiety Sildenafil Citrate Oral Tablet 20 MG active 79702 3 RXNORM 1 table t Oral three times a day Routin e Give 1 table t by mouth three times a day relat ed to RUTH VILLAFelipe (PRIM CHYNA) HYPER TENSI ON (I10) 2024 - - Dupixent Subcutaneou s Solution Auto-inject or 300 MG/2ML active 86091 29 RXNORM 2 ml Subcut aneous one time a day Routin e Injec t 2 ml subcu taneo usly one time a day every 14 day(s ) for routi ne 2024 - routine Torsemide Oral Tablet 20 MG active 1 RXNORM 40 mg Oral one time a day Routin e Give 40 mg by mouth one time a day for diure tic 2024 - diuretic Albuterol Sulfate Nebulizatio n Solution (2.5 MG/3ML) 0.083% active 74557 8 RXNORM 1 vial Inhala tion as needed PRN 1 vial inhal e orall y via nebul izer every 6 hours as neede d for short ness of breat h, wheez ing Pre and Post asses sment L osvaldo Sound nieves: 1 .brent r 2 .whee zes 3 .rhon chi 4 .crac kles 5 .dimi nishe d 2024 - shortness of breath, wheezing Diclofenac Sodium External Gel 1 % active 78185 3 RXNORM n/a n/a Topica l four times a day Routin e Apply to painf ul areas topic ally four times a day relat ed to MULTI PLE SCLER OSIS, UNSPE CIFIE D (G35. D) 2 grams 2024 - - Linezolid Oral Tablet 600 MG active 92273 7 RXNORM 1 table t Oral every 12 hours Routin e Give 1 table t by mouth every 12 hours for uti until 04/19 23:59 04/20 uti Metoprolol Succinate ER Oral Tablet Extended Release 24 Hour 50 MG active 85088 6 RXNORM 1 table t Oral one time a day Routin e Give 1 table t by mouth one time a day relat ed to RUTH ANGELO (PRIM CHYNA) HYPER TENSI ON (I10) 2024 - - Fleet Enema Enema 7-19 GM/118ML active 04811 5 RXNORM 1 dose Rectal as needed PRN Inser t 1 dose recta lly as neede d for Const ipati on (Step 3) as neede d if no bowel movem ent for 8 hours after bisac odyl suppo sitor y. 2024 - Constipatio n Milk of Magnesia Suspension 400 MG/5ML active 53222 7 RXNORM 30 ml Oral as needed PRN Give 30 ml by mouth as neede d for Const ipati on (Step 1) As neede d if no bowel movem ent for three days. (Do not use for Hemod ialys is patie nts). 2024 - Constipatio n Acetaminoph en Tablet 325 MG aborted 64991 2 RXNORM 2 table t Oral as needed PRN Give 2 table t by mouth every 6 hours as neede d for Pain Pain Total dosag e for aceta minop hen and medic ation s that conta in aceta minop hen shoul d not excee d 3 grams / 24 hours . AND Give 2 table t by mouth every 6 hours as neede d for Fever great er than 100.0 F Total dosag e for aceta minop hen and medic ation s that conta in aceta minop hen shoul d not excee d 3 grams / 24 hours . 04/16 Pain 98278 2 RXNORM 2 table t Oral as needed PRN Give 2 table t by mouth every 6 hours as neede d for Pain Pain Total dosag e for aceta minop hen and medic ation s that conta in aceta minop hen shoul d not excee d 3 grams / 24 hours . AND Give 2 table t by mouth every 6 hours as neede d for Fever great er than 100.0 F Total dosag e for aceta minop hen and medic ation s that conta in aceta minop hen shoul d not excee d 3 grams / 24 hours . 04/16 Fever greater than 100.0F Bisacodyl Suppository 10 MG active 9 RXNORM 1 suppo sitor y Rectal as needed PRN Inser t 1 suppo sitor y recta lly as neede d for If no bowel movem ent for 8 hours after Milk of Magne nicolle 2024 - If no bowel movement for 8 hours after Milk of Magnesia Glutose 45 Gel 40 % active 10740 87 RXNORM 1 dose Oral as needed PRN Give 1 dose by mouth as neede d for hypog lycem ic james col Give one tube PO/SL if FSBS <50 and able to swall ow PRN. Reche ck FSBS 10 minut es after admin istra tion and call provi leonid. 2024 - hypoglycemi c protocol GlucaGen HypoKit Solution Reconstitut ed 1 MG active 38716 5 RXNORM 1 mg Subcut aneous as needed PRN Injec t 1 mg subcu taneo usly as neede d for hypog lycem ic james col Speci al instr uctio ns: Gluca gen 1 mg hypok it subcu taneo us if FSBS below 60 and unabl e to swall ow. R echec k FSBS in 10 minut es and updat e provi leonid. 2024 - hypoglycemi c protocol Melatonin Oral Tablet 5 MG active 81037 2 RXNORM 1 table t Oral at bedtime Routin e Give 1 table t by mouth at bedti me for insom felix 2024 - insomnia Levothyroxi ne Sodium Oral Tablet 75 MCG active 29484 2 RXNORM 1 table t Oral one time a day Routin e Give 1 table t by mouth one time a day for hypot hyroi disnm 2024 - hypothyroid isnm Promethazin e HCl Oral Tablet 25 MG active 07984 7 RXNORM 1 table t Oral as needed PRN Give 1 table t by mouth as neede d for nause a 2024 - nausea Dorzolamide HCl Ophthalmic Solution 2 % active 33694 5 RXNORM 1 drop Ophtha lmic two times a day Routin e Insti ll 1 drop in both eyes two times a day for eye healt h 2024 - eye health Amantadine HCl Oral Capsule 100 MG active 18546 9 RXNORM 1 capsu le Oral two times a day Routin e Give 1 capsu le by mouth two times a day for routi ne 2024 - routine prednisoLON E Acetate Ophthalmic Suspension 1 % active 87628 36 RXNORM 1 drop Ophtha lmic three times a day Routin e Insti ll 1 drop in right eye three times a day for eye healt h 2024 - eye health dilTIAZem HCl ER Oral Tablet Extended Release 24 Hour active 300 mg Oral one time a day Routin e Give 300 mg by mouth one time a day relat ed to ESSEN TIAL (PRIM CHYNA) HYPER TENSI ON (I10) 2024 - - Modafinil Oral Tablet 100 MG active 77278 8 RXNORM 1 table t Oral two times a day Routin e Give 1 table t by mouth two times a day relat ed to MULTI PLE SCLER OSIS, UNSPE CIFIE D (G35. D) 2024 - - Spironolact one Oral Tablet 25 MG active 61535 6 RXNORM 1 table t Oral one time a day Routin e Give 1 table t by mouth one time a day for diure tic 2024 - diuretic Thiamine HCl Oral Tablet 100 MG active 09302 3 RXNORM 1 table t Oral one time a day Routin e Give 1 table t by mouth one time a day for suppl ement 2024 - supplement Eliquis Oral Tablet 5 MG active 35702 47 RXNORM 1 table t Oral two times a day Routin e Give 1 table t by mouth two times a day relat ed to ACTIVITY ASSISTANT (CURR ENT) USE OF ANTIC OAGUL ANTS (Z79. 01) 2024 - - Montelukast Sodium Oral Tablet 10 MG active 05155 4 RXNORM 1 table t Oral one time a day Routin e Give 1 table t by mouth one time a day for routi ne 2024 - routine Adderall Oral Tablet 30 MG active 04310 5 RXNORM 1 table t Oral one time a day Routin e Give 1 table t by mouth one time a day relat ed to MULTI PLE SCLER OSIS, UNSPE CIFIE D (G35. D) 2024 - - Morphine Sulfate Oral Tablet 15 MG active 52882 2 RXNORM 1 table t Oral as needed PRN Give 1 table t by mouth every 8 hours as neede d for pain 2024 - pain Insurance Providers Plan of Treatment Section Interventions Intervention Code Code System Display Name Proposed D ate Problems Problem # Description Date of onset Resolved Date Code CodeSystem Concern Status 1 ANXIETY DISORDER, UNSPECIFIED 04/15/[address] active 2 CHRONIC PAIN SYNDROME 04/15/[address] active 3 DIABETES MELLITUS DU E TO UNDERLYING CONDITION WITH MILD NONPROLIFERATIVE DIABETIC RETINOPATHY WITHOUT MACULAR EDEMA, BILATERAL 04/15/[address] active 4 FIBROMYALGIA 04/15/[address] acti ve 5 MAJOR DEPRESSIVE DISORDER, SINGLE EPISODE, UNSPECIFIED 04/15/[address] active 6 MUSCLE WEAKNESS (GENERALIZED) 04/15/[address] active 7 POST-TRAUMATIC STRES S DISORDER, UNSPECIFIED 04/15/[address] active 8 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 04/15/[address] active 9 SCHIZOPHRENIA, UNSPECIFIED 04/15/[address] active 10 TYPE 2 DIABETES MELLITUS WITH DIABETIC NEUROPATHY, UNSPECIFIED 04/15/[address] active 11 TYPE 2 DIABETES MELLITUS WITH DIABETIC POLYNEUROPATHY 04/15/[address] active 12 UNSTEADINESS ON FEET 04/15/[address] active 13 VITAMIN D DEFICIENCY , UNSPECIFIED 04/15/[address] active 14 WEAKNESS 04/15/[address] active 15 DYSPHAGIA, UNSPECIFIED 04/14/[address] active 16 ESSENTIAL (PRIMARY) HYPERTENSION 04/14/[address] active 17 HYPERLIPIDEMIA, UNSPECIFIED 04/14/[address] active 18 ACTIVITY ASSISTANT (CURRENT) USE OF ANTICOAGULANTS 04/14/[address] active 19 MULTIPLE SCLEROSIS, UNSPECIFIED 04/14/2025 G35.D ICD-10-CM active 20 PERSONAL HISTORY OF PULMONARY EMBOLISM 04/14/[address] active 21 POLYNEUROPATHY, UNSPECIFIED 04/14/[address] active 22 TYPE 2 DIABETES MELLITUS WITHOUT COMPLICATIONS 04/14/[address] active Reason for Referral No Reasons for Referral Entered Social History Social History Observation Description Start Date End Date Code Code System Current Smoking Status Tobacco smoking consumption unknown 579127372 SNOMED CT Sex Assigned At Female 1960 44445-3 [facility] Gender Identity Sexual Orientation Vital Signs Code Code System Vitals Name Values and Units Timing Information 2339-0 [facility] Blood Sugar Uhzaz=357.0 Units=mg/dL 04/16/2025 9279-1 [facility] Respiratory Rate Value=18.0 Units=/m in 04/16/2025 8462-4 [facility] Blood Pressure-Diastolic Value=73 Un its=mmHg 04/16/2025 8480-6 [facility] Blood Pressure-Systolic Bztik=111 Un its=mmHg 04/16/2025 8310-5 [facility] Body Temperature Value=97.2 Units= F 04/16/2025 8867-4 [facility] Heart rate Value=95.0 Units=/min 01/2025 05051-5 [facility] O2 % BldC Oximetry Value=98.0 Units= % 04/16/2025 03395-3 [facility] Pain Level Value=0.0 04/16/2025 8302-2 [facility] Height Value=65.0 Units=Inches 04/16/2025 83597-0 [facility] Weight Xmwak=643.6 Units=Lbs 01/2025
--- OUTSIDE RECORDS SUMMARY | 2025-04-16 20:56 | XMS_ITS | Encounter Summary ---
Author Organization [facility] Address [address] [place] [address] Care Team Providers Care Bay Stocker Name Role Phone Martin Green Primary Care Provider [phone] Reason for Visit * Reason Onset Date Comments cs appointment reschedule 11/18/2022 Encounter Details Date Type Department Care Team (Late st Contact Info) Description 11/18/2022 Telephone [facility] Central Scheduling Department [address] [place] [address] Telephone Intake, Staff cs appointment reschedule Social History Tobacco Use Types Packs/Day Years [...] encounter Miscellaneous Notes * Telephone Encounter - Danielle Gray - 11/18/2022 1:45 PM EDT Pt needs to cancel appointment 11/19. I tried to rebook but populate out til Jan. Notes state 6 months November. PT can only come Fri, Friday or . Bella: [phone] Thank you documented in this encounter Plan of Treatment Upcoming Encounters Date Type Department Care Team (Late st Contact Info) Description 08/25/2025 2:00 PM EDT Office Visit [facility] [address] [place] [address] Margin Trimmer: Kenneth Walsh MD PhD [address] [place] [address] [phone] documented as of this encounter Visit Diagnoses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documented in this encounter Care Teams Bay Stocker Relationship Specialty Start Date End Date Martin Green [address] [place] [phone] PCP - General Internal Medicine 10/08/18 documented as of this encounter
--- OUTSIDE RECORDS SUMMARY | 2025-04-16 20:56 | XMS_ITS | Encounter Summary ---
Author Organization [facility] Address [address] [facility] [address] [place] [address] Phone Care Team Providers Care Metal Annealer Name Role Phone Olvin Harvey MD Primary Care Provide r Olvin Harvey MD Unavailable [phone] Chelsy MclaughlinW Unavailable [email or web address] Ema Dumas DO Primary Care Provider Krissy Hernandez Primary Care Pro vider Martin [place] MD Primary Care Provider [phone] Martin Bales MD Unavailable Jose Gallagher MD Unavailable [phone] Ramiro Schmidt MD Unavailable [phone] Enio Starkey MD Unavailable [phone] Kenneth Carter MD Unavailable Noe Mccann MD Unavailable Unavailable Audra Gutierrez MD Unavailable Edouard Mosley MD Unavailable Martin [place] MD Primary Care Provider + Nara Tejada MD Unavailable [phone] Jose Thomas MD Unavailable + [phone] Trish Hammonds MD Unavailable +- [phone] Celina He DPM Unavailable [phone] Olvin Harvey MD Unavailable [phone] Fabián Seaman MD Unavailable +[phone] Elizabeth Goode MD Unavailable [phone] Martin [place] MD Primary Care Provider + Martin [place] MD Primary Care Provider + Griselda Bello NP Primary Care Provider [phone] Encounter Details Date Type Department Care Team (Latest Contact Info) Description 05/19/2017 Transcribe Orders [facility] [address] [place] [address] Ramiro Schmidt MD [address] [place] [address] [email or web address] Hypercalcemia (Primary Dx) Social History Tobacco Use [...] 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 documented as of this encounter Plan of Treatment Upcoming Encounters Date Type Department Care Team (Late st Contact Info) Description 04/28/2025 2:00 PM EST Office Visit [facility] [address] Floor, [address] [place] [address] Minda Nelson DNP 22 [facility], [address] [address] [email or web address] 07/29/2025 1:00 PM EST Office Visit [facility] [address] Floor, [address] [place] [address] Minda Nelson DNP 22 [facility], [address] [address] [email or web address] 08/31/2025 11:50 AM EDT Office Visit [facility] Pulmonary, Allergy and Critical Care Medicine [address] [place] [address] Audra Gutierrez MD [address] [place] [address] documented as of this encounter Procedures Procedure Name Priority Date/Time Associated Diagnosis Comments CORTISOL AM Routine 05/19/2017 8:16 AM EST Hypercalcemia RENAL PANEL Routine 05/19/2017 8:16 AM EST Hypercalcemia VITAMIN A Routine 05/19/2017 8:16 AM EST Hypercalcemia 25-OH VITAMIN D Routine 05/19/2017 8:16 AM EST Hypercalcemia THYROID STIMULATING HORMONE (TSH) Routine 05/19/2017 8:16 AM EST Hypercalcemia PARATHYROID HORMONE (PTH) Routine 05/19/2017 8:16 AM EST Hypercalcemia MAGNESIUM Routine 05/19/2017 8:16 AM EST Hypercalcemia documented in this encounter Results * (ABNORMAL) Cortisol AM (05/19/2017 8:16 AM EST) CORTISOL AM 5.5(L) 6.2 - 19.4 ug/dL [facility] Blood 05/19/2017 8:16 AM EST 05/19/2017 8:25 AM EST us Ramiro Schmidt MD LAB BLOOD BKR ORDERABLES Fi nal Result Performing Organization Address City/[facility] Co de Phone Number [address] [address] * (ABNORMAL) TSH (05/19/2017 8:16 AM EST) [facility] TSH 8.50(H) 0.27 - 4.20 uIU/mL [facility] Blood 05/19/2017 8:16 AM EST 05/19/2017 8:25 AM EST us Ramiro Schmidt MD LAB BLOOD BKR ORDERABLES Fi nal Result Performing Organization Address [facility] Co de Phone Number [address] [address] * Parathyroid hormone (PTH) (05/19/2017 8:16 AM EST) [facility] PARATHYROID HORMONE 19 15 - 65 pg/mL [facility] Blood 05/19/2017 8:16 AM EST 05/19/2017 8:20 AM EST us Ramiro Schmidt MD LAB BLOOD BKR ORDERABLES Fi nal Result Performing Organization Address [facility] de Phone Number [address] [address] * (ABNORMAL) 25-OH vitamin D (05/19/2017 8:16 AM EST) Pathologist [facility] 25 OH VIT D (TOTAL) 17(L) 30 - 1,000 ng/mL [facility] Blood 05/19/2017 8:16 AM EST 05/19/2017 8:25 AM EST Ramiro Schmidt MD LAB BLOOD BKR ORDERABLES Fi nal Result Performing Organization Address [facility] Co de Phone Number [address] [address] * Magnesium (05/19/2017 8:16 AM EST) MAGNESIUM 1.6 1.6 - 2.6 mg/dL [facility] Blood 05/19/2017 8:16 AM EST 05/19/2017 8:25 AM EST Ramiro Schmidt MD LAB BLOOD BKR ORDERABLES Fi nal Result Performing Organization Address [facility] de Phone Number [address] [address] * Vitamin A (05/19/2017 8:16 AM EST) Pathologist [facility] VITAMIN A 65.7 32.5 - 78.0 mcg/dL [facility] Comment: (NOTE) ADDITIONAL INFORMATION This test was developed and its performance characteristics determined by [facility] in a manner consistent with CLIA requirements. This test has not been cleared or approved by the U.S. Food and Drug Administration. Blood 05/19/2017 8:16 AM EST 05/19/2017 8:23 AM EST Ramiro Schmidt MD LAB BLOOD ORDERABLES Final Result Performing Organization Address [facility] Co de Phone Number [facility] [address] [place] [address] * (ABNORMAL) Renal panel (05/19/2017 8:16 AM EST) SODIUM 138 133 - 146 mmol/L [facility] POTASSIUM 4.0 3.3 - 5.1 mmol/L [facility] CHLORIDE 98 96 - 108 mmol/L [facility] CO2 31 21 - 35 mmol/L [facility] GLUCOSE 193(H) 70 - 99 mg/dL [facility] BUN 22(H) 6 - 19 mg/dL [facility] CREATININE 1.00 0.5 - 1.5 mg/dL [facility] CALCIUM 9.0 8.4 - 10.3 mg/dL [facility] PHOSPHORUS 4.2 2.7 - 4.5 mg/dL [facility] ALBUMIN 3.6(L) 3.9 - 4.8 g/dL [facility] EGFR 57(L) 60 - 1,000 mL/min/1.7 3m2 [facility] Comment:Abnormal if <60. If patient is -Guinean, multiply the result by 1.21. ANION GAP 13 10 - 20 mmol/L [facility] Blood 05/19/2017 8:16 AM EST 05/19/2017 8:25 AM EST us Ramiro Schmidt MD LAB BLOOD BKR ORDERABLES Fi nal Result Performing Organization Address City/State/[facility] Co de Phone Number [address] [address] documented in this encounter Visit Diagnoses Diagnosis [...] documented as of this encounter Care Teams Metal Annealer Relationship Specialty Start Date End Date Olvin Harvey MD [address] [facility] 1 [place] [address] [email or web address] PCP - General 12/07/13 06/11/18 Ema Kaufman DO [address] [place] [address] [email or web address] PCP - General 06/12/18 09/22/18 Krissy Hernandez PA [address] [place] [address] [email or web address] PCP - General Internal Medicine 09/23/18 10/04/18 Martin [place] MD [address] [place] [address] [email or web address] PCP - General Internal Medicine 10/05/18 02/10/19 Martin [place] MD [address] [place] [address] [email or web address] PCP - General Internal Medicine 02/11/19 04/11/20 Martin [place] MD [address] [place] [address] [email or web address] PCP - General Internal Medicine 04/12/20 05/25/23 Martin [place] MD [address] [place] [phone] [email or web address] PCP - General Internal Medicine 05/26/23 01/25/25 Griselda Bello NP [address] [place] [address] PCP - General Nurse Practitioner 01/26/25 Olvin Harvey MD 22 [facility] 1 [place] [address] [email or web address] Insurance Assigned Provider 04/12/17 02/10/19 Chelsy Mclaguhlin, [facility] 22 [facility] 1 [place] [address] [email or web address] Aerial Lineman 08/08/17 07/05/18 Martin Bales MD [address] [place] [address] [email or web address] Gastroenterology 10/07/18 11/13/20 Jose Gallagher MD [address] [place] [address], [address] [place] [address] [email or web address] Urology 10/07/18 11/13/20 Ramiro Schmidt MD [address] [place] [address], [address] [place] [address] [email or web address] Endocrinology 02/11/19 11/13/20 Enio Starkey MD [address] [place] [address], [address] [place] [address] [email or web address] Cardiology 02/11/19 11/13/20 Kenneth Carter MD [address] [place] [address] Neurology 02/11/19 11/13/20 Noe Mccann MD Ophthalmology 02/11/19 Audra Gutierrez MD [address] [place] [address] 2nd [place] [address] [email or web address] Intensive Care 02/11/19 Edouard Mosley MD [address] [place] [address], [address] [place] [address] [email or web address] Plastic and Reconstructive Surgery 02/11/19 Nara Tejada MD [address] [place] [address], [address] [place] [address] [email or web address] Consulting Provider Nephrology 02/11/19 Jose Thomas MD [address] [place] [address] [email or web address] Consulting Provider Infectious Diseases 02/11/19 Trish Hammonds MD [address] [facility], [address] [place] [address] [email or web address] Rheumatology 02/11/19 Celina He DPM [address] [facility], [address] [place] [address] [email or web address] Podiatry 02/11/19 Olvin Harvey MD [address] [facility] Floor 1 [place] [address] [email or web address] Insurance Assigned Provider 04/12/17 03/06/19 Fabián Seaman MD [address] [facility], [address] [place] [address] [email or web address] Insurance Assigned Provider 03/06/19 07/09/19 Elizabeth Goode MD [address] [place] [address] [address] [place] [address] Psychologist 03/27/20 documented as of this encounter Additional Source Comments The information contained in this document represents components of the legal health record. It is not the complete legal health record.[facility]
--- OUTSIDE RECORDS SUMMARY | 2025-04-16 20:56 | XMS_ITS | Encounter Summary ---
Author Organization [facility] Address [address] [facility] [address] [place] [address] Phone Care Team Providers Care Escape Wheel Tooth Cutter Name Role Phone Olvin Harvey MD Primary Care Provide r Olvin Harvey MD Unavailable [phone] Chelsy MclaughlinW Unavailable [email or web address] Ema Dumas DO Primary Care Provider Krissy Hernandez Primary Care Pro vider Martin [place] MD Primary Care Provider [phone] Martin Bales MD Unavailable Jose Gallagher MD Unavailable [phone] Ramiro Schmidt MD Unavailable Enio Starkey MD Unavailable [phone] Kenneth Carter MD Unavailable Noe Mccann MD Unavailable Unavailable Audra Gutierrez MD Unavailable Edouard Mosley MD Unavailable Martin [place] MD Primary Care Provider + Nara Tejada MD Unavailable [phone] Jose Thomas MD Unavailable + [phone] Trish Hammonds MD Unavailable +- [phone] Celina He DPM Unavailable [phone] Olvin Harvey MD Unavailable [phone] Fabián Seaman MD Unavailable +[phone] Elizabeth Goode MD Unavailable [phone] Martin [place] MD Primary Care Provider + Martin [place] MD Primary Care Provider + Griselda Bello NP Primary Care Provider [phone] Reason for Referral * Consultation (Within 2 weeks) - Closed Specialty Diagnoses / Procedures Referred By Ludwin christie Referred To Contact Rheumatology Diagnoses Arthralgia, unspecified joint System, Provider Not In, PhD [address] [place] [phone] Phone: tel: Referral ID Status Reason Start Date Expiration Date Visits Re quested Visits Authorized [id number] Closed 07/22/2017 07/22/2018 1 1 Encounter Details Date Type Department Care Team (Latest Contact Info) Description 07/22/2017 Transcribe Orders [facility] Rheumatology [address], 4[address] Floor, [address] [place] [address] Audra Gutierrez MD [address] [address] [email or web address] Arthralgia, unspecified joint (Primary Dx) Social History Tobacco Use Types Packs/Day Years Used Date Smoking Tobacco: Former Cigarettes 2 45 1 6 - 2010 Smokeless Tobacco: Never Alcohol Use Standard Drinks/Week Comments No 0 (1 standard drink = 0.6 oz pur e alcohol) Comments Unknown Sex and Gender Information Value Date Recorded Sex Assigned at Female 10/17/2017 8:32 PM EDT Legal Sex Female 12:39 PM EDT Gender Identity Female 10/17/2017 8:32 PM EDT Sexual Orientation Straight 06/30/2020 5 :59 PM EST 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 documented as of this encounter Plan of Treatment Upcoming Encounters Date Type Department Care Team ([facility] st Contact Info) Description 04/28/2025 2:00 PM EST Office Visit [facility] [address], [address] [place] [address] Minda Nelson DNP [address] [place] [address] 07/29/2025 1:00 PM EST Office Visit [facility] [address], [address] [place] [address] Minda Nelson DNP [address] [place] [address] 08/31/2025 11:50 AM EDT Office Visit [facility] Pulmonary, Allergy and Critical Care Medicine [address] [place] [address] Audra Gutierrez MD [address] [place] [address] [email or web address] Scheduled Referrals Name Type Priority Associated Diagnoses Orde r Schedule Ambulatory referral to [facility] Rheumatology Outpatient Referral Routine Arthralgia, unspecified joint Ordered: 07/22/2017 documented as of this encounter Visit Diagnoses Diagnosis Arthralgia, unspecified joint- Primary documented in this encounter Additional Health [...] documented as of this encounter Care Teams Escape Wheel Tooth Cutter Relationship Specialty Start Date End Date Olvin Harvey MD [address] [address] [email or web address] PCP - General 12/07/13 06/11/18 Ema Kaufman DO [address] [place] [address] [email or web address] PCP - General 06/12/18 09/22/18 Krissy Hernandez PA [address] [place] [address] [email or web address] PCP - General Internal Medicine 09/23/18 10/04/18 Martin [place] MD [address] [place] [address] [email or web address] PCP - General Internal Medicine 10/05/18 02/10/19 Martin [place] MD [address] [place] [address] [email or web address] PCP - General Internal Medicine 02/11/19 04/11/20 Martin [place] MD [address] [place] [address] [email or web address] PCP - General Internal Medicine 04/12/20 05/25/23 Martin [place] MD [address] [place] [phone] [email or web address] PCP - General Internal Medicine 05/26/23 01/25/25 Griselda Bello NP [address] [place] [address] PCP - General Nurse Practitioner 01/26/25 Olvin Harvey MD [address] [place] [address] Floor 1 [place] [address] [email or web address] Insurance Assigned Provider 04/12/17 02/10/19 Chelsy Mclaughlin, PROCESS ARTIST [address] [facility] Floor 1 [place] [address] [email or web address] [email or web address] Advice 08/08/17 07/05/18 Martin Bales MD [address] [place] [address] [email or web address] Gastroenterology 10/07/18 11/13/20 Jose Gallagher MD [address] [place] [address], [address] [place] [address] [email or web address] Urology 10/07/18 11/13/20 Ramiro Schmidt MD [address] [place] [address], [address] [place] [address] [email or web address] Endocrinology 02/11/19 11/13/20 Enio Starkey MD [address] [place] [address], [address] [place] [address] [email or web address] Cardiology 02/11/19 11/13/20 Kenneth Carter MD [address] [place] [address] Neurology 02/11/19 11/13/20 Noe Mccann MD Ophthalmology 02/11/19 Audra Gutierrez MD [address] [place] [address] 2nd [place] [address] [email or web address] Intensive Care 02/11/19 Edouard Mosley MD 40 [facility], [address] [place], [place] [phone] [email or web address] Plastic and Reconstructive Surgery 02/11/19 Nara Tejada MD [address] [place] [address], [address] [place] [address] [email or web address] Consulting Provider Nephrology 02/11/19 Jose Thomas MD [address] [place] [address] [email or web address] Consulting Provider Infectious Diseases 02/11/19 Trish Hammonds MD [address] [place] [address], [address] [place] [address] [email or web address] Rheumatology 02/11/19 Celina He DPM [address] [facility], [address] [place] [address] [email or web address] Podiatry 02/11/19 Olvin Harvey MD [address] [facility] Floor 1 [place] [address] [email or web address] Insurance Assigned Provider 04/12/17 03/06/19 Fabián Seaman MD [address] [facility] [place] [address] [email or web address] Insurance Assigned Provider 03/06/19 07/09/19 Elizabeth Goode MD [address] [place] [address] Psychologist 03/27/20 documented as of this encounter Additional Source Comments The information contained in this document represents components of the legal health record. It is not the complete legal health record.[facility]
--- OUTSIDE RECORDS SUMMARY | 2025-04-16 20:56 | XMS_ITS | Encounter Summary ---
Author Organization [facility] Address [address] [facility] [address] [place] [address] Phone Care Team Providers Care Freight And Passenger Agent Name Role Phone Martin Bales MD Unavailable Jose Gallagher MD Unavailable [phone] Ramiro Schmidt MD Unavailable [phone] Enio Starkey MD Unavailable [phone] Kenneth Carter MD Unavailable Noe Mccann MD Unavailable Unavailable Audra Gutierrez MD Unavailable Edouard Mosley MD Unavailable Nara Tejada MD Unavailable Jose Thomas MD Unavailable [phone] Trish Hammonds MD Unavailable [phone] Celina He DPM Unavailable Elizabeth Goode MD Unavailable [phone] Martin Green MD Primary Care Provider [phone] Martin Green MD Primary Care Provider Griselda Bello NP Primary Care Provider [phone] Encounter Details Date Type Department Care Team (Late Contact Info) Description 08/13/2020 Procedure Pass [facility], Ct Scan - [address] [address] Social History Tobacco Use Types Packs/Day Years [...] Job Start Date Job End Date 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 [employer]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[employer]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 documented as of this encounter Plan of Treatment Upcoming Encounters Date Type Department Care Team (Late Contact Info) Description 04/28/2025 2:00 PM EST Office Visit [facility] [address] 3rd [facility], [address] [address] Minda Nelson DNP [address] [place] [address] 07/29/2025 1:00 PM EST Office Visit [facility] [address] 3rd Floor, [address] [place] [address] Minda Nelson DNP [address] [place] [address] 08/31/2025 11:50 AM EDT Office Visit [facility] [address] [facility] [place] [address] Audra Gutierrez MD 10 [facility] 2nd [place] [address] [email or web address] documented as of this encounter Visit Diagnoses [...] documented as of this encounter Care Teams Freight And Passenger Agent Relationship Specialty Start Date End Date Martin Green MD [address] [place] [address] [email or web address] PCP - General Internal Medicine 04/12/20 05/25/23 Martin Green MD [address] [place] [phone] [email or web address] PCP - General Internal Medicine 05/26/23 01/25/25 Griselda Bello NP [address] [place] [address] PCP - General Nurse Practitioner 01/26/25 Martin Bales MD [address] [place] [address] [email or web address] Gastroenterology 10/07/18 11/13/20 Jose Gallagher MD [address] [place] [address], [address] [address] [email or web address] Urology 10/07/18 11/13/20 Ramiro Schmidt MD [address] [place] [address], [address] [address] [email or web address] Endocrinology 02/11/19 11/13/20 Enio Starkey MD [address] [place] [address], [address] [address] [email or web address] Cardiology 02/11/19 11/13/20 Kenneth Carter MD [address] [place] [address] Neurology 02/11/19 11/13/20 Noe Mccann MD Ophthalmology 02/11/19 Audra Gutierrez MD [address] [place] [address] [email or web address] Intensive Care 02/11/19 Edouard Mosley MD [address] [place] [address], [address] [place] [address] [email or web address] Plastic and Reconstructive Surgery 02/11/19 Nara Tejada MD [address] [place] [address], [address] [place] [address] [email or web address] Consulting Provider Nephrology 02/11/19 Jose Thomas MD [address] [place] [address] [email or web address] Consulting Provider Infectious Diseases 02/11/19 Trish Hammonds MD 22 [facility], [address] [address] [email or web address] Rheumatology 02/11/19 Celina He DPM [address] [address] [email or web address] Podiatry 02/11/19 Elizabeth Goode MD [address] [place] [address] Psychologist 03/27/20 documented as of this encounter Additional Source Comments The information contained in this document represents components of the legal health record. It is not the complete legal health record.[facility]
--- OUTSIDE RECORDS SUMMARY | 2025-04-16 20:56 | XMS_ITS | Encounter Summary ---
Author Organization [facility] Address [address] [place] [address] [address] [place] [address] Phone Care Team Providers Care Mounter Clarinets Name Role Phone Noe Mccann MD Unavailable Unavailable Audra Gutierrez MD Unavailable [phone] Edouard Mosley MD Unavailable Nara Tejada MD Unavailable [phone] Jose Thomas MD Unavailable + [phone] Trish Hammonds MD Unavailable [phone] Celina He DPM Unavailable [phone] Elizabeth Goode MD Unavailable [phone] Martin Green MD Primary Care Provider [phone] Martin Green MD Primary Care Provider [phone] Griselda Bello NP Primary Care Provider + [phone] Encounter Details Date Type Department Care Team (Late st Contact Info) Description 01/18/2022 Procedure Pass [facility], Ct Scan - 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 Wish to be (Past 1 Month) No 01/18/2022 4:21 PM EDT Alycia Rockwell RN 2. Non-Specific Active Suici aby Thoughts (Past 1 Month) No 01/18/2022 4:21 PM EDT Jo-Ann Rockwell RN 6. Suicidal Behavior (Lifetime) No 4:21 PM JEANIET Alycia Rockwell RN documented as of this encounter Plan of Treatment Upcoming Encounters Date Type Department Care Team (Late st Contact Info) Description 04/28/2025 2:00 PM EST Office Visit [facility] [address] Floor, [address] [place] [address] Minda Nelson DNP [address] [place] [address], [address] [address] 07/29/2025 1:00 PM EST Office Visit [facility] [address] 3[address] Floor, [address] [place] [address] Minda Nelson DNP [address] [place] [address], [address] [address] 08/31/2025 11:50 AM EDT Office Visit [facility] 10 [place] [address] Audra Gutierrez MD 10 [facility] 2nd [place] [address] documented as of this encounter Visit Diagnoses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documented in this encounter Additional Health Concerns Infection Onset Date Last Indicated Resolved Time 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 Infection Utility 08/05/2015 08/05/2015 07/24/2022 1:[address] CoV-Risk 05/29/2023 06/05/2023 06/06/2023 9:59 AM EST [...] documented as of this encounter Care Teams Mounter Clarinets Relationship Specialty Start Date End Date Martin Green MD [address] [address] PCP - General Internal Medicine 04/12/20 05/25/23 Martin Green MD [address] [place] [address] [email or web address] PCP - General Internal Medicine 05/26/23 01/25/25 Griselda Bello, GAEL [address] [place] [address] PCP - General Nurse Practitioner 01/26/25 Noe Mccann MD Ophthalmology 02/11/19 Audra Gutierrez MD [address] [place] [address] 2nd [place] [address] [email or web address] Intensive Care 02/11/19 Edouard Mosley MD [address] [place] [address], [facility] [address] [place] [address] [email or web address] Plastic and Reconstructive Surgery 02/11/19 Nara Tejada MD [address] [place] [address], [address] [place] [address] [email or web address] Consulting Provider Nephrology 02/11/19 Jose Thomas MD [address] [place] [address] [email or web address] Consulting Provider Infectious Diseases 02/11/19 Trish Hammonds MD [address] [place] [address], [facility] 203 [place] [address] [email or web address] Rheumatology 02/11/19 Celina He DPM [address] [place] [address] 203 [place] [address] [email or web address] Podiatry 02/11/19 Elizabeth Goode MD 301 [facility] 200 [place] [address] Psychologist 03/27/20 documented as of this encounter Additional Source Comments The information contained in this document represents components of the legal health record. It is not the complete legal health record.[facility]
--- NOTE | 2025-04-16 20:57 | ED.CHESTPAIN ---
HPI - Chest Pain General Chief Complaint: Chest Pain Stated Complaint: chest pain Time Seen by Provider: 04/16/25 20:12 Source: patient, family and EMS Mode of arrival: EMS Limitations: no limitations History of Present Illness ED Provider: DR. Love HPI narrative: 65-year-old female with past complex medical history of MS/MR/ TR, CAD, PE on apixaban, CVA, DM 2, had a recent admission admission at [facility] that was complicated with PREM and ALI the require the patient to be transferred to [facility] patient was hospitalized for a month then was discharged to rehab came back from rehab today for a chest pain, abdominal pain, feeling nauseous, and difficulty breathing. Patient think her symptoms today because she did not take her pain medication in the afternoon, and patient also normally takes Valium for muscle spasm of MS that was discontinued. Related Data Home Medications ?Medication ?Instructions ?Recorded ?Confirmed amantadine HCl 100 mg capsule 100 mg PO BID 12/13/22 04/17/25 apixaban 5 mg tablet (Eliquis) 5 mg PO BID 12/13/22 04/17/25 brimonidine 0.2 % eye drops 1 drp ophthalmic (eye) BID 12/13/22 04/17/25 dorzolamide 2 % eye drops 1 drp ophthalmic (eye) BID 12/13/22 04/17/25 modafinil 100 mg tablet 100 mg PO BID 12/13/22 04/17/25 montelukast 10 mg tablet 10 mg PO DAILY 12/13/22 04/17/25 morphine 15 mg immediate release 15 mg PO Q8H PRN Pain 12/13/22 04/17/25 tablet promethazine 25 mg tablet 25 mg PO Q6H PRN Nausea 12/13/22 04/17/25 sildenafil (pulm.hypertension) 20 20 mg PO TID 12/13/22 04/17/25 mg tablet albuterol sulfate 2.5 mg/3 mL 2.5 mg inhalation Q6H PRN Wheezing 04/17/25 04/17/25 (0.083 %) solution for nebulization aspirin 81 mg chewable tablet 81 mg PO DAILY 04/17/25 04/17/25 bisacodyl 10 mg rectal suppository 10 mg MT DAILY PRN Constipation 04/17/25 04/17/25 camphor-menthol 0.5 %-0.5 % lotion 1 appl topical BID PRN Itching 04/17/25 04/17/25 dextroamphetamine-amphetamine 30 30 mg PO DAILY 04/17/25 04/17/25 mg tablet (Adderall) dextrose 40 % oral gel (Glucose 15 g PO Q15M PRN fsbs < 50 and 04/17/25 04/17/25 Gel) able to swallow diazepam 5 mg tablet 5 mg PO Q8H PRN Anxiety 04/17/25 04/17/25 diclofenac sodium 1 % topical gel 2 g topical QID 04/17/25 04/17/25 diltiazem HCl 300 mg capsule,24 300 mg PO DAILY 04/17/25 04/17/25 hr,extended release dulaglutide 3 mg/0.5 mL 3 mg subcut TU@0900 04/17/25 04/17/25 subcutaneous pen injector (TrulicLockr) dupilumab 300 mg/2 mL subcutaneous 300 mg subcut Q2W 04/17/25 04/17/25 syringe (Dupixent) empagliflozin 10 mg tablet 10 mg PO DAILY 04/17/25 04/17/25 (Jardiance) glucagon 1 mg solution for 1 mg subcut Q20M PRN fsbs beloq 60 04/17/25 04/17/25 injection and unable to swallow insulin glargine 100 unit/mL (3 30 unit subcut BEDTIME 04/17/25 04/17/25 mL) subcutaneous pen (Lantus Solostar U-100 Insulin) insulin lispro 100 unit/mL 1 sliding scale dose subcut TIDAC 04/17/25 04/17/25 subcutaneous solution (Humalog U-100 Insulin) ketorolac 0.5 % eye drops 1 drp ophthalmic-Right TID 04/17/25 04/17/25 latanoprost 0.005 % eye drops 1 drp ophthalmic (eye) BEDTIME 04/17/25 04/17/25 levothyroxine 75 mcg tablet 75 mcg PO DAILY@0600 04/17/25 04/17/25 lidocaine 4 % topical patch 2 patch topical DAILY 04/17/25 04/17/25 linezolid 600 mg tablet 600 mg PO BID 04/17/25 04/17/25 magnesium hydroxide 400 mg/5 mL 30 ml PO BEDTIME PRN Constipation 04/17/25 04/17/25 oral suspension (Milk of Magnesia) melatonin 5 mg tablet 5 mg PO BEDTIME 04/17/25 04/17/25 metoprolol succinate 50 mg 50 mg PO DAILY 04/17/25 04/17/25 tablet,extended release 24 hr multivitamin with minerals 1 tab PO DAILY 04/17/25 04/17/25 nystatin 100,000 unit/gram topical 1 appl topical BID 04/17/25 04/17/25 powder pantoprazole 20 mg tablet,delayed 20 mg PO DAILY@0630 04/17/25 04/17/25 release prednisolone acetate 1 % eye 1 drp ophthalmic-Right TID 04/17/25 04/17/25 drops,suspension sodium chloride 7 % for 1 inh inhalation BID 04/17/25 04/17/25 nebulization sodium phosphates 19 gram-7 118 ml MT BEDTIME PRN Constipation 04/17/25 04/17/25 gram/118 mL enema (Fleet Enema) spironolactone 25 mg tablet 25 mg PO DAILY 04/17/25 04/17/25 thiamine HCl (vitamin B1) 100 mg 100 mg PO DAILY 04/17/25 04/17/25 tablet torsemide 20 mg tablet 40 mg PO DAILY 04/17/25 04/17/25 trazodone 50 mg tablet 50 mg PO Q6H PRN Insomnia 04/17/25 04/17/25 Allergies Allergy/AdvReac Type Severity Reaction Status Date / Time diphenhydramine (From Allergy Severe Anaphylaxis Verified 04/16/25 19:37 Benadryl) Penicillins Allergy Severe Anaphylaxis Verified 04/16/25 19:37 Sulfa (Sulfonamide Allergy Severe Anaphylaxis Verified 04/16/25 19:37 Antibiotics) Cephalosporins Allergy Intermediate shortness Verified 04/16/25 19:37 of breath (can take cephalexin) clarithromycin Allergy Intermediate Shortness Verified 04/16/25 19:37 of Breath gabapentin Allergy Intermediate Confusion Verified 04/16/25 19:37 hydrochlorothiazide (From Allergy Intermediate Shortness Verified 04/16/25 19:37 Hyzaar) of Breath levofloxacin (From Levaquin) Allergy Intermediate dizziness/h Verified 04/16/25 19:37 eadache/ulices sea losartan (From Cozaar) Allergy Intermediate Shortness Verified 04/16/25 19:37 of Breath metformin Allergy Intermediate strange Verified 04/16/25 19:37 feeling amoxicillin (From Augmentin) Allergy Unknown Unknown Verified 04/16/25 19:37 clavulanic acid (From Allergy Unknown Unknown Verified 04/16/25 19:37 Augmentin) duloxetine (From Cymbalta) Allergy Unknown Unknown Verified 04/16/25 19:37 fluoxetine Allergy Unknown Unknown Verified 04/16/25 19:37 NSAIDS (Non-Steroidal Allergy Unknown Unknown Verified 04/16/25 19:37 Anti-Inflamma pregabalin AdvReac Intermediate Dizziness Verified 04/16/25 19:37 doxycycline AdvReac Mild Gastrointestinal Verified 04/16/25 19:37 Upset Review of Systems Review of Systems: All other systems are reviewed and are negative Constitutional: Reports as per HPI and Reports no additional constitutional complaints Eyes: Reports as per HPI and Reports no additional eye complaints Reports system reviewed and no additional complaints, except as documented Cardiovascular: Reports as per HPI and Reports no additional cardiovascular complaints Respiratory: Reports as per HPI and Reports no additional respiratory complaints Gastrointestinal: Reports as per HPI and Reports no additional gastrointestinal complaints Genitourinary: Reports no additional female genitourinary complaints Musculoskeletal: Reports no additional musculoskeletal complaints Skin/Breast: Reports system reviewed and no additional complaints, except as docu Psychiatric: Reports no additional psychiatric complaints Endocrine: Reports no additional endocrine complaints Hematologic/Lymphatic: Reports no additional hematologic/lymphatic complaints Allergic/Immunologic: Reports no additional allergic/immunologic complaints Reports system reviewed and no additional complaints, except as documented and Reports Abnormal speech present [facility] Past Medical History Medical History Heart valve regurgitation Gitelman syndrome Polycystic ovarian syndrome Myocardial infarction Sleep apnea Fibromyalgia COPD (chronic obstructive pulmonary disease) Mild asthma Orthostatic hypotension Raynaud's disease Atrial fibrillation Pulmonary embolism Coronary atherosclerosis HTN (hypertension) Neuropathy Multiple sclerosis Chronic pain syndrome PTSD (post-traumatic stress disorder) Opioid dependence Depression Hypercalcemia Elevated cholesterol Type 2 diabetes mellitus Thyroid nodule Hypothyroid Surgical History Hx of reduction mammoplasty Hx of tubal ligation Hx of hernia repair History of rectal surgery History of colon resection S/P panniculectomy History of lobectomy of thyroid Hx of hysterectomy Hx of appendectomy Hx of dilation and curettage Hx of heart artery stent Social History Social History Are you a primary day care provider to a significant other at home: No Patient Tobacco Use Status: Former Tobacco user Tobacco use type: Cigarette Smoked in Last 30 Days: No Use of substances other than those prescribed or required for medical reasons: No Advance Directives: No Advance Directives Information Provided: No Physical Exam Vital Signs: Vital Signs: Last Vital Signs Temp 98.5 F 04/17/25 23:00 Pulse 89 04/18/25 02:37 Resp 14 04/18/25 02:37 BP 104/61 04/18/25 02:37 Pulse Ox 97 04/17/25 23:00 O2 Del Method Room Air 04/17/25 23:00 BMI result Body Mass Index 25.5 Vital signs have been reviewed and appear to be correct. Blood pressure elevated. Heart rate normal. Respiratory rate normal. Temperature normal. Oxygen saturation normal. Appearance: Alert. Oriented X3. No acute distress. Head: Normal external exam. Normocephalic. Atraumatic. No Lopez signs noted. No raccoon eyes noted Eyes: PERRLA. EOMI. Conjunctiva and sclera normal. Eyelids normal. ENT: TM's Normal. Pharynx normal. Uvula midline. Moist mucous membranes. No trismus noted. No drooling noted. No muffled voice noted. Neck: Normal inspection. Neck supple. FROM. No adenopathy. Thyroid Normal. No meningeal signs. No neck mass noted. CVS: Normal heart rate and rhythm. Heart sound normal. No murmurs noted. Pulses normal throughout. Respiratory: No respiratory distress. Painless inspiration. Breath sounds normal. No wheezes/rales/rhonchi noted. Chest nontender. No accessory muscle usage noted or decreased air movement noted. Abdomen: Soft and nontender. Bowel sounds normal in all 4 quadrants. No distention noted. No organomegaly noted. No visible injury noted. Back: No CVA tenderness. Full range of motion noted. Skin: Skin warm and dry. Normal skin color. Normal skin turgor. No rashes/lesions/lacerations noted. Extremities: No lower extremity edema. Extremities exhibit normal range of motion. Extremities nontender. Neuro: Oriented X 3. Cranial nerve exam: II-XII are grossly intact No motor deficit. No sensory deficit. Reflexes normal. Course Reevaluation(s) Reevaluation #1: 65-year-old female with past complex medical history with just discharged from [facility] and [facility] to rehab today patient stated that she did not like the facility and she does not want to go back there patient requested to come in for chest pain, did not take her pain medication or her muscular relaxant medication today, found to have leukocytosis otherwise unremarkable workup with VSS, patient's symptoms has improved while she is in the emergency department, no chest pain, no abdominal pain after was given pain medication, chest x-ray/CT abdomen and pelvis are unremarkable for acute pathology. Because the patient declined going back to that facility we will keep the patient under physician observation and get social media senior associate consult in the morning, patient expressed interest to go back home with the proper arrangement for VNA. patient with history of pulmonary embolism on [employer], VSS. Will start physician observation now, patient has MOLST form of DNR but requesting to revise it to be a full code. Time: 00:47 Reevaluation #2: 04/17/2025 [id number] Tali Bowers PA-C ---> Observation continues. Spoke with the patient and her son extensively and the patient has determined she would like to go home and in comfort and would like to be comfort measures only. Patient confirms she is DNR/DNI. Case management made aware. 04/17/2025 [id number] Tali Bowers PA-C ---> Observation continues. Patient spoke with the case management team and rescinded her desire for comfort measures only but does want DNR/DNI status as she had previously indicated on the MOLST form. Patient will be discharged home tomorrow (04/18/2025) with her home medications and 40 hours of PROMOTION MANAGER care. 8:25 PM 04/17/2025 (Mikey RICHARD): This provider was just notified by RN that the patient is complaining of 10/10 chest pain with a heart rate of 150. The patient previously had EKG demonstrating atrial fibrillation however the patient is not currently on the monitor, and patient's p.o. Cardizem and metoprolol are unable to be given as they have not yet been verified by pharmacy. Given the patient's report of 03/18 chest pain with tachycardia, the patient will be brought back into the main ED, we will obtain repeat EKG, if repeat EKG demonstrates atrial fibrillation we will provide 0.25 mg/kg Cardizem bolus, if unsuccessful we will attempt 0.35 mg/kg, if necessary will initiate Cardizem drip. Patient will be admitted for chest pain with tachycardia. 8:36 PM 04/17/2025 (Mikey RICHARD): Upon further chart review the patient is a 65-year-old female with a history of MS, CAD, PE on eliquis, CVA, type 2 diabetes, and chronic pain disorder, who appears to have been discharged 1 day ago from a one month long admission at [facility] on 04/15 after being transferred there from [facility] for urosepsis. The patient apparently was unsatisfied with her rehab facility, began complaining of chest pain, and came to the ED for evaluation. In the ED yesterday patient's chest pain reportedly improved following administration of valium, morphine, and then dilaudid. The patient's chest x-ray and CT abdomen and pelvis were unremarkable for acute pathology. The patient was placed under physician observation for PT/case management consultation as she declined to return to her original rehab facility. While in physician observation a goals of care conversation was held with the patient and patient's son, patient advised she wished to change her code status from DNR/DNI to comfort measures only. Case management was made aware of this change, however upon speaking with the case management the patient then rescinded her ORTHOTICS TECHNICIAN request and reestablished DNR/DNI status. The plan was made for patient to be discharged home tomorrow 04/18 with the home medications and 40 hours of PROMOTION MANAGER care. Patient's home medications were ordered for the patient at 19:38, just prior to this provider's notification of the chest pain and elevated heart rate. Upon further chart review of the patient's initial labs upon arrival to the ED demonstrated leukocytosis of 17.5, with PREM with BUN 37 and creatinine 1.69, no old for comparison. On this provider's exam in the ED upon her [facility], the patient appears clinically dehydrated, dry mucous membranes with cracked tongue, blood pressure is borderline at 109/86 with tachycardia as described previously. The patient will undergo EKG, we will also obtain repeat CBC, CMP, and lactic acid, patient will be ordered for IV fluid hydration. 8:45 PM 04/17/2025 (Mikey RICHARD): Patient's EKG demonstrates atrial fibrillation with a rate of 165, with a likely rate related ST inversions and depressions in the lateral leads, more pronounced compared to previous. We will administer 0.25 mg per kg of Cardizem and reassess heart rate following medication and IV fluid hydration. Additionally the patient will have a troponin added on due to her active chest pain with ST changes. Further chart review shows patient has not yet provided a urinalysis, in the setting of recent urosepsis, soft blood pressure, tachycardia, and initial leukocytosis of 17.5, the patient will have a urinalysis ordered. 9:19 PM 04/17/2025 (Mikey RICHARD): The patient's son Olvin was contacted and updated regarding the patient's current condition and plan for admission as opposed to plan discharge. Patient's son states he is appreciative for the update and agreeable to admission. Patient's son is coming to the ED for an additional conversation regarding the patient's care. 9:59 PM 04/17/2025 (Mikey RICHARD): The patient's lactic acid is 2.3, urinalysis is grossly infected. The patient will receive additional IV fluids to complete 30 cc/kilos fluid bolus, we will obtain blood cultures, and initiate antibiotics. The patient's son is present in the ED and [facility], we will select antibiotics based on most recent culture results. 10:23 PM 04/17/2025 (Mikey RICHARD): The patient is most recent urine culture from 04/11 from [facility] was reviewed via the patient's portal on the patient's son's phone, the patient's urine culture was positive for Enterococcus faecalis, with resistance to all antibiotics except for linezolid. The patient will be treated with IV linezolid. The patient's most recent kidney function from [facility] was BUN 33 and creatinine 1.3, fluid rehydration is continuing. Patient is reporting continued generalized pain, we will treat with fentanyl as patient's blood pressure is still soft. Patient's heart rate has improved to 120, we will give an additional 0.35 milligrams/kilogram of Cardizem, and administer the patient is p.o. metoprolol. The patient will receive her p.o. Cardizem pending heart rate control under 100. Patient will be admitted for UTI and A-fib w/ RVR. 12:14 AM 04/18/2025 (Mikey RICHARD): Patient's heart rate has remained under 100, p.o. Cardizem has been added. The patient's chronic pain was treated with fentanyl with minimal effect, patient ordered for morphine. Patient's blood pressure has remained soft, current map of 63. The patient's case will be discussed with ICU given the low map, if deemed appropriate for for we will contact hospitalist for admission as outlined above. 12:25 AM 04/18/2025 (Mikey RICHARD): The patient's case was discussed with Dr. Youngblood of from ICU, who recommends giving 2 bags of albumin, if blood pressure then improves with a map over 65 patient can be admitted to the telemetry floor. If no improvement patient will be accepted to the ICU. 3:10 AM 04/18/2025 (Mikey RICHARD): Patient's blood pressure improved following abdomen, map is currently 75. Patient admitted to the hospitalist service on telemetry unit. Medications Administered Generic Name Dose Route Start Last Admin Trade Name Freq PRN Reason Stop Dose Admin Amantadine HCl 100 mg 04/17/25 21:00 04/17/25 23:11 Amantadine Hcl 100 Mg Capsule PO Not Given BID ROBERT Amphetamine/Dextroamphetamine 30 mg 04/17/25 19:45 04/17/25 23:09 Amphetamine Mixed Salts 10 Mg Tablet PO Not Given DAILY ROBERT Apixaban 5 mg 04/17/25 21:00 04/17/25 23:11 Apixaban 5 Mg Tablet PO Not Given BID ROBERT Aspirin 81 mg 04/17/25 19:45 04/17/25 23:09 Aspirin 81 Mg Tab.Chew PO Not Given DAILY ROBERT Brimonidine Tartrate 1 drop 04/17/25 21:00 04/17/25 23:11 Brimonidine Tartrate 0.2% Oph 5 Ml Bottle EYE-BOTH Not Given BID ROBERT Diltiazem HCl 300 mg 04/17/25 19:45 04/17/25 23:09 Diltiazem Hcl Cd 300 Mg Cap.Er.24h PO Not Given DAILY [facility] Protocol Dorzolamide HCl 1 drop 04/17/25 21:00 04/17/25 23:12 Dorzolamide Hcl 2 % Ophth Doris 10 Ml Drpbtl EYE-BOTH Not Given BID [facility] Empagliflozin 10 mg 04/17/25 19:45 04/17/25 23:10 Empagliflozin 10 Mg Tablet PO Not Given DAILY [facility] Insulin Glargine 30 unit 04/17/25 21:00 04/17/25 23:12 Insulin Glargine,Hum.Rec.Anlog 100 Unit/Ml 10 Ml Vial SUBCUT Not Given BEDTIME [facility] Insulin Human Lispro 0 unit 04/17/25 21:00 04/17/25 23:12 Insulin Lispro 100 Unit/Ml 3 Ml Vial SUBCUT Not Given QIDACHS [facility] Protocol Ketorolac Tromethamine 1 drop 04/17/25 21:00 04/17/25 23:12 Ketorolac Tromethamine 0.5% Op 5 Ml Drops EYE-RIGHT Not Given TID [facility] Latanoprost 1 drop 04/17/25 21:00 04/17/25 23:12 Latanoprost 0.005 % Ophth Doris 2.5 Ml Drops EYE-BOTH Not Given BEDTIME [facility] Lidocaine 2 patch 04/17/25 19:45 04/17/25 23:10 Lidocaine 4 % Patch Adh..Patch TRANSDERMA Not Given DAILY [facility] Protocol Melatonin 6 mg 04/17/25 21:00 04/17/25 23:12 Melatonin 3 Mg Tablet PO Not Given BEDTIME [facility] Metoprolol Succinate 50 mg 04/17/25 19:45 04/17/25 22:41 Metoprolol Succinate Er 50 Mg Tab.Er.24h PO 50 mg DAILY [facility] Administration Protocol Modafinil 100 mg 04/17/25 21:00 04/17/25 23:14 Modafinil 100 Mg Tablet PO Not Given BID [facility] Montelukast Sodium 10 mg 04/17/25 19:45 04/17/25 23:10 Montelukast Sodium 10 Mg Tablet PO Not Given DAILY [facility] Multivitamins/Vitamin C 1 tab 04/17/25 19:45 04/17/25 23:10 Multivitamin Tablet PO Not Given DAILY [facility] Nystatin 1 appl 04/17/25 21:00 04/17/25 23:14 Nystatin Powder 15 Gm Bottle TOPICAL Not Given BID [facility] Protocol Prednisolone Acetate 1 drop 04/17/25 21:00 04/17/25 23:14 Prednisolone Acetate 1 % Oph Susp 5 Ml Drpbtl EYE-RIGHT Not Given TID [facility] Sildenafil Citrate 20 mg 04/17/25 21:00 04/17/25 23:13 Sildenafil Citrate 20 Mg Tablet PO Not Given TID ROBERT Spironolactone 25 mg 04/17/25 19:45 04/17/25 23:11 Spironolactone 25 Mg Tablet PO Not Given DAILY [facility] Protocol Thiamine HCl 100 mg 04/17/25 19:45 04/17/25 23:11 Thiamine Hcl 100 Mg Tablet PO Not Given DAILY ROBERT Torsemide 40 mg 04/17/25 19:45 04/17/25 23:11 Torsemide 20 Mg Tablet PO Not Given DAILY [facility] Protocol Discontinued Medications Generic Name Dose Route Start Last Admin Trade Name Freq PRN Reason Stop Dose Admin Diazepam 2 mg 04/16/25 20:34 04/16/25 20:54 Diazepam 2 Mg Tablet PO 04/16/25 20:35 2 mg ONCE ONE Administration Diltiazem HCl 15 mg 04/17/25 21:08 04/17/25 21:11 Diltiazem Hcl 50 Mg/10 Ml Vial IVPUSH 04/17/25 21:09 15 mg ONCE ONE Administration Diltiazem HCl 22 mg 04/17/25 22:22 04/17/25 22:39 Diltiazem Hcl 50 Mg/10 Ml Vial IVPUSH 04/17/25 22:23 22 mg ONCE ONE Administration Diltiazem HCl 240 mg 04/17/25 23:58 04/18/25 00:09 Diltiazem Hcl Cd 240 Mg Cap.Er.Deg PO 04/17/25 23:59 240 mg ONCE ONE Administration Protocol Fentanyl 25 mcg 04/17/25 22:21 04/17/25 22:40 Fentanyl Citrate/Pf 100 Mcg/2 Ml Vial IVPUSH 04/17/25 22:22 25 mcg ONCE ONE Administration Protocol Hydromorphone HCl 1 mg 04/16/25 22:46 04/16/25 23:11 Hydromorphone Hcl 1 Mg/Ml Syringe IVPUSH 04/16/25 22:47 1 mg ONCE ONE Administration Protocol Sodium Chloride 1,000 mls @ 999 mls/hr 04/17/25 21:00 04/18/25 02:39 Ns IV 04/17/25 22:00 Infused .Q1H1M ROBERT Infusion Linezolid 600 mg in 300 mls @ 300 mls/hr 04/17/25 22:15 04/17/25 23:40 Zyvox/D5w IV 04/17/25 23:14 Infused ONCE ONE Infusion Sodium Chloride 1,000 mls @ 999 mls/hr 04/17/25 22:30 04/18/25 02:40 Ns IV 04/17/25 23:30 Infused .Q1H1M ROBERT Infusion Albumin Human 100 mls @ 200 mls/hr 04/18/25 00:30 04/18/25 02:11 Kedbumin 25 % IV 04/18/25 01:29 Infused Q30M ROBERT Infusion Linezolid 600 mg 04/17/25 21:00 04/17/25 23:13 Linezolid 600 Mg Tablet PO Not Given BID ROBERT Morphine Sulfate 2 mg 04/16/25 20:34 04/16/25 20:54 Morphine Sulfate 4 Mg/Ml Cartridge IVPUSH 04/16/25 20:35 2 mg ONCE ONE Administration Protocol Morphine Sulfate 15 mg 04/17/25 12:36 04/17/25 13:17 Morphine Sulfate Immed Release 15 Mg Tablet PO 04/17/25 12:37 15 mg ONCE ONE Administration Morphine Sulfate 2 mg 04/17/25 23:44 04/18/25 00:07 Morphine Sulfate 4 Mg/Ml Cartridge IVPUSH 04/17/25 23:45 2 mg ONCE ONE Administration Protocol Promethazine HCl 25 mg 04/16/25 20:34 04/16/25 20:54 Promethazine Hcl 25 Mg Tablet PO 04/16/25 20:35 25 mg ONCE ONE Administration Sodium Chloride 1 ml 04/17/25 21:00 04/17/25 22:19 Sodium Chloride 3 % Inhalation 15 Ml Vial.Neb INHALE Not Given RBID [facility] Medical Decision Making Differential Diagnosis Differential Diagnoses: The differential diagnosis associated with the presentation includes (Acute on chronic pain, intra-abdominal pathology, electrolyte derangement, severe anemia.) Admission/Observation Consideration of admission/observation: Escalation of care including admission/observation considered Lab Data MDM Lab Attestation statement: I reviewed the patient's lab results. 04/17/25 20:41 04/17/25 20:41 Labs: Lab Results 04/16/25 04/17/25 04/17/25 Range/Units 19:51 20:41 20:50 WBC 17.5 H 15.8 H (4.8-10.8) X10*3/uL RBC 2.88 L 3.04 L (4.20-5.50) X10*6/uL Hgb 8.3 L 8.7 L (12.0-16.0) g/dl Hct 26.0 L 26.9 L (37.0-47.0) % MCV 90.3 88.5 (80.0-98.0) fL MCH 28.8 28.6 (27.0-33.0) pg MCHC 31.9 32.3 (31.0-35.0) g/dl RDW 16.2 H 16.2 H (11.0-16.0) % Plt Count 402 H 379 (160-400) X10*3/uL MPV 9.1 L 8.9 L (9.4-12.3) fL Immature Gran % (Auto) Cancelled 3.8 H Neut % (Auto) Cancelled 74.7 H Lymph % (Auto) Cancelled 11.7 L [place] % (Auto) Cancelled 8.3 Eos % (Auto) Cancelled 0.8 Baso % (Auto) Cancelled 0.7 Lymph # (Auto) Cancelled 1.9 [place] # (Auto) Cancelled 1.3 H Eos # (Auto) Cancelled 0.1 Baso # (Auto) Cancelled 0.1 Abs Immat Gran (auto) Cancelled 0.60 H Absolute Neuts (auto) Cancelled 11.9 H Absolute Nucleated RBC 0.000 0.000 (0.0-0.012) X10*3/uL Nucleated RBC % (auto) 0.0 0.0 (0.0-0.2) /100WBC Neutrophils % (Manual) 80 H (45-73) % Band Neutrophils % 5 (3-5) % Lymphocytes % (Manual) 8 L (20-40) % Atypical Lymphs % (Man) 2 (0-6) % Monocytes % (Manual) 2 (2-11) % Eosinophils % (Manual) 1 (0-4) % Promyelocytes % 2 % Abs Neuts (Manual) 14.9 H (2.0-8.3) X10*3/uL Lymphocytes # (Manual) 1.4 (1.2-4.9) X10*3/uL Atyp Lymphs # (Manual) 0.4 x10*3/uL Monocytes # (Manual) 0.4 (0.1-1.2) X10*3/uL Eosinophils # (Manual) 0.2 (0.0-0.4) X10*3/uL Promyelocytes # 0.4 X10*3/uL Smudge Cells PRESENT Toxic Granulation PRESENT Toxic Vacuolation PRESENT Platelet Estimate NORMAL (NORMAL) Large Platelets PRESENT Plt Morphology Comment NOTED RBC Morphology NORMAL Polychromasia 1+ (0-2) /OIF Schistocytes 1+ (0-2) /OIF Sodium 138 137 (135-145) mmol/L Potassium 3.6 3.4 (3.3-5.1) mmol/L Chloride 104 103 (96-108) mmol/L Carbon Dioxide 24 21 L (22-29) mmol/L Anion Gap 14 16 (12-20) BUN 37 H 35 H (9-16) mg/dL Creatinine 1.69 H 1.60 H (0.5-1.4) mg/dL Estim Creat Clear Calc 28.2 29.8 Estimated GFR 30 32 Random Glucose 138 H 194 H (60-115) mg/dL Lactic Acid 2.3 H* (0.5-2.0) mmol/L Lactic Acid F/U @ 2Hr (0.5-2.0) mmol/L Lactic Acid F/U @ 4Hr (0.5-2.0) mmol/L Calcium 9.0 9.1 (8.4-10.2) mg/dL Total Bilirubin 0.4 0.3 (0.0-1.0) mg/dL AST 50 H 47 H (5-31) U/L ALT 18 20 (0-31) U/L Alkaline Phosphatase 305 H 275 H (39-117) U/L Troponin I High Sens 9.1 9.7 (<3.5-17.0) ng/L Total Protein 6.5 6.9 (6.5-8.0) g/dL Albumin 3.0 L 3.2 L (3.5-5.0) g/dL Urine Color Urine Appearance Urine pH (5.0-9.0) Ur Specific Omega (1.005-1.025) Urine Protein (Neg-Trace) mg/dL Urine Glucose (UA) (Negative) mg/dL Urine Ketones (Negative) mg/dL Urine Blood (Negative) Urine Nitrite (Negative) Ur Leukocyte Esterase (Negative) Urine RBC (0-2) /HPF Urine WBC (0-5) /HPF Ur Squamous Epith Cells (0-2) /HPF Urine Bacteria (None Seen) Hyaline Casts (0-2) /LPF Urine Yeast 04/17/25 04/17/25 04/18/25 Range/Units 21:32 23:14 01:35 WBC (4.8-10.8) X10*3/uL RBC (4.20-5.50) X10*6/uL Hgb (12.0-16.0) g/dl Hct (37.0-47.0) % MCV (80.0-98.0) fL MCH (27.0-33.0) pg MCHC (31.0-35.0) g/dl RDW (11.0-16.0) % Plt Count (160-400) X10*3/uL MPV (9.4-12.3) fL Immature Gran % (Auto) Neut % (Auto) Lymph % (Auto) [place] % (Auto) Eos % (Auto) Baso % (Auto) Lymph # (Auto) [place] # (Auto) Eos # (Auto) Baso # (Auto) Abs Immat Gran (auto) Absolute Neuts (auto) Absolute Nucleated RBC (0.0-0.012) X10*3/uL Nucleated RBC % (auto) (0.0-0.2) /100WBC Neutrophils % (Manual) (45-73) % Band Neutrophils % (3-5) % Lymphocytes % (Manual) (20-40) % Atypical Lymphs % (Man) (0-6) % Monocytes % (Manual) (2-11) % Eosinophils % (Manual) (0-4) % Promyelocytes % % Abs Neuts (Manual) (2.0-8.3) X10*3/uL Lymphocytes # (Manual) (1.2-4.9) X10*3/uL Atyp Lymphs # (Manual) x10*3/uL Monocytes # (Manual) (0.1-1.2) X10*3/uL Eosinophils # (Manual) (0.0-0.4) X10*3/uL Promyelocytes # X10*3/uL Smudge Cells Toxic Granulation Toxic Vacuolation Platelet Estimate (NORMAL) Large Platelets Plt Morphology Comment RBC Morphology Polychromasia /OIF Schistocytes /OIF Sodium (135-145) mmol/L Potassium (3.3-5.1) mmol/L Chloride (96-108) mmol/L Carbon Dioxide (22-29) mmol/L Anion Gap (12-20) BUN (9-16) mg/dL Creatinine (0.5-1.4) mg/dL Estim Creat Clear Calc Estimated GFR Random Glucose (60-115) mg/dL Lactic Acid (0.5-2.0) mmol/L Lactic Acid F/U @ 2Hr 2.1 H* (0.5-2.0) mmol/L Lactic Acid F/U @ 4Hr 1.4 (0.5-2.0) mmol/L Calcium (8.4-10.2) mg/dL Total Bilirubin (0.0-1.0) mg/dL AST (5-31) U/L ALT (0-31) U/L Alkaline Phosphatase (39-117) U/L Troponin I High Sens (<3.5-17.0) ng/L Total Protein (6.5-8.0) g/dL Albumin (3.5-5.0) g/dL Urine Color Yellow Urine Appearance Turbid Urine pH 5.5 (5.0-9.0) Ur Specific Omega 1.020 (1.005-1.025) Urine Protein 30 (1+) H (Neg-Trace) mg/dL Urine Glucose (UA) >=1000 H (Negative) mg/dL Urine Ketones Negative (Negative) mg/dL Urine Blood Large (3+) H (Negative) Urine Nitrite Negative (Negative) Ur Leukocyte Esterase Moderate (2+) H (Negative) Urine RBC >20 H (0-2) /HPF Urine WBC >50 H (0-5) /HPF Ur Squamous Epith Cells 3-5 (0-2) /HPF Urine Bacteria 1+ (None Seen) Hyaline Casts 3-5 (0-2) /LPF Urine Yeast Present Independent Interpretation I performed an independent interpretation of an: CT Scan ( abdomen pelvis: No acute intra-abdominal pathology.) Radiology Impression Discussion of test interpretation with radiology: I have reviewed the radiologist's reading. Discharge Plan Discharge Clinical Impression: Acute UTI Patient Disposition: Admitted As Inpatient
--- OUTSIDE RECORDS SUMMARY | 2025-04-16 20:57 | XMS_ITS | Encounter Summary ---
Author Organization [facility] Address [address] [facility] [address] [place] [address] Phone Care Team Providers Care Oyster Planter Name Role Phone Olvin Harvey MD Primary Care Provide r Olvin Harvey MD Unavailable [phone] Chelsy MclaughlinW Unavailable [email or web address] Primary Care Provider Krissy Hernandez Primary Care Pro vider Melchor Green MD Primary Care Provider [phone] Melchor Bales MD Unavailable Jose Gallagher MD Unavailable [phone] Ramiro Schmidt MD Unavailable [phone] Enio Starkey MD Unavailable [phone] Kenneth Carter MD Unavailable Noe Mccann MD Unavailable Unavailable Audra Gutierrez MD Unavailable [phone] Edouard Mosley MD Unavailable Melchor Green MD Primary Care Provider + Nara Tejada MD Unavailable [phone] Jose Thomas MD Unavailable + [phone] Trish Hammonds MD Unavailable [phone] PayamcharCelina DPM Unavailable [phone] Olvin Harvey MD Unavailable [phone] Fabián Seaman MD Unavailable +[phone] Elizabeth Goode MD Unavailable [phone] Melchor Green MD Primary Care Provider + Melchor Green MD Primary Care Provider + Griselda Bello NP Primary Care Provider [phone] Reason for Referral * MRI/CAT Scan - Closed Specialty Diagnoses / Procedures Referred By Ludwin christie Referred To Contact Radiology Diagnoses MS (multiple sclerosis) Procedures MRI Brain Kenneth Carter MD Phone: tel: fax: Referral ID Status Reason Start Date Expiration Date Visits Re quested Visits Authorized [id number] Closed 04/23/2017 04/23/2018 1 1 * MRI/CAT Scan - Closed Specialty Diagnoses / Procedures Referred By Ludwin christie Referred To Contact Radiology Diagnoses MS (multiple sclerosis) Procedures MRI Cervical Spine Kenneth Carter MD Phone: tel: fax: Referral ID Status Reason Start Date Expiration Date Visits Re quested Visits Authorized [id number] Closed 04/23/2017 04/23/2018 1 1 Encounter Details Date Type Department Care Team (Late st Contact Info) Description 04/23/2017 Ancillary Orders [facility] Department 30 [place] [address] Kenneth Carter MD [address] [place] [address] MS (multiple sclerosis) Social History Tobacco Use Types Packs/Day Years Used Date Smoking Tobacco: Never Assessed Comments Unknown Sex and Gender Information Value Date Recorded Sex Assigned at Female 10/17/2017 8:32 PM EDT Legal Sex Female 12:39 PM EDT Gender Identity Female 10/17/2017 8:32 PM EDT Sexual Orientation Straight 06/30/2020 5: 59 PM EST documented as of this encounter Plan of Treatment Upcoming Encounters Date Type Department Care Team ([facility] st Contact Info) Description 04/28/2025 2:00 PM EST Office Visit [facility] [address], [address] [address] Minda Nelson DNP [address] [place] [address] 07/29/2025 1:00 PM EST Office Visit [facility] [address], [address] [address] Minda Nelson DNP [address] [place] [address] 08/31/2025 11:50 AM EDT Office Visit [facility] [address] [place] [address] Audra Gutierrez MD [address] [place] [address] documented as of this encounter Results * MRI CERVICAL SPINE (BONE) WITHOUT CONTRAST (04/29/2017 7:34 PM EST) Anatomical Region Laterality Modality C-spine Magnetic Resonan ce 04/30/2017 8:00 AM EST Impressions 04/30/2017 8:12 AM EST 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 No new cord lesions demonstrated. Grossly stable C6-7 disc protrusion. No other significant interval change from 08/01/2016 apparent. POS - [id number] Narrative 04/30/2017 8:12 AM EST COMPARISON:08/01/2016 TECHNIQUE: Exam performed on a 1.5 Desi high-field MRI scanner. Sagittal T1, T2 and STIR, axial T2* gradient echo and 3-D bright fluid sequences were obtained. FINDINGS: Study is slightly limited due to patient body habitus. The small lesion of hyperintense T2 signal within the cord at the C2 level is stable in appearance on the sagittal images and is not completely included on the axial images, where it was poorly visualized previously. No new cord signal abnormalities are identified. No focal zone of cortical thinning or enlargement are noted. C2-3: No focal disc protrusion, central canal stenosis, or significant neural foraminal compromise. C3-4: No focal disc protrusion, central canal stenosis, or gross neural foraminal compromise demonstrated. C4-5: No focal disc protrusion, central canal stenosis, or significant neural foraminal compromise. Prior disc bulge is less conspicuous currently. C5-6: There is chronic right uncovertebral spurring and paramedian spondylosis. No focal disc protrusion or central canal stenosis demonstrated. There appears to be an element of chronic neural foraminal narrowing. C6-7: There is a chronic small hypointense disc protrusion which is relatively broad-based and grossly stable in size, without impingement upon the cord. Neural foramina are poorly assessed on the axial images and I cannot exclude an element of left greater than right neural foraminal narrowing, grossly unchanged. C7-T1: No focal disc protrusion, central canal stenosis, or significant neural foraminal compromise. On the sagittal sequences no focal disc protrusion or central canal stenosis are suggested at the T1-2, T2-3, or T3-4 levels. Fatty marrow signal changes in the C4, T2, and T4 vertebral bodies are again noted and grossly stable. No vertebral body compression deformities demonstrated. No paraspinal soft tissue mass is apparent. Prevertebral soft tissues are not thickened. Procedure Note Melchor Call MD - 04/30/2017 COMPARISON:08/01/2016 TECHNIQUE: Exam performed on a 1.5 Desi high-field MRI scanner. SagittalT1, T2 and STIR, axial T2* gradient echo and 3-D bright fluid sequenceswere obtained. FINDINGS: Study is slightly limited due to patient body habitus. The small lesionof hyperintense T2 signal within the cord at the C2 level is stable inappearance on the sagittal images and is not completely included on theaxial images, where it was poorly visualized previously. No new cordsignal abnormalities are identified. No focal zone of cortical thinningor enlargement are noted. C2-3: No focal disc protrusion, central canal stenosis, or significantneural foraminal compromise. C3-4: No focal disc protrusion, central canal stenosis, or gross neuralforaminal compromise demonstrated. C4-5: No focal disc protrusion, central canal stenosis, or significantneural foraminal compromise. Prior disc bulge is less conspicuouscurrently. C5-6: There is chronic right uncovertebral spurring and paramedianspondylosis. No focal disc protrusion or central canal stenosisdemonstrated. There appears to be an element of chronic neural foraminalnarrowing. C6-7: There is a chronic small hypointense disc protrusion which isrelatively broad-based and grossly stable in size, without impingementupon the cord. Neural foramina are poorly assessed on the axial imagesand I cannot exclude an element of left greater than right neuralforaminal narrowing, grossly unchanged. C7-T1: No focal disc protrusion, central canal stenosis, or significantneural foraminal compromise. On the sagittal sequences no focal disc protrusion or central canalstenosis are suggested at the T1-2, T2-3, or T3-4 levels. Fatty marrow signal changes in the C4, T2, and T4 vertebral bodies areagain noted and grossly stable. No vertebral body compression deformitiesdemonstrated. No paraspinal soft tissue mass is apparent. Prevertebralsoft tissues are not thickened. IMPRESSION: 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 No new cord lesionsdemonstrated. Grossly stable C6-7 disc protrusion. No other significantinterval change from 08/01/2016 apparent. POS - [id number] us Kenneth Carter MD IMG MR XSPECIALTY Final Res ult * MRI BRAIN WITHOUT CONTRAST (04/29/2017 7:33 PM EST) Anatomical Region Laterality Modality Head Magnetic Resonan ce 04/30/2017 7:53 AM EST Impressions 04/30/2017 8:00 AM EST Stable white matter lesions consistent with demyelinating plaques, without other significant interval change in the appearance of the intracranial contents since 08/01/2016. POS - [id number] Narrative 04/30/2017 8:00 AM EST TECHNIQUE: Exam performed on a 1.5 Desi high-field MRI scanner. Axial T1, T2, T2*, T2 FLAIR and diffusion-weighted imaging with ADC map, sagittal T1 FLAIR sequences were obtained. FINDINGS: Comparison is made with prior study of 08/01/2016. Multiple T2 hyperintense lesions scattered throughout the periventricular white matter and extending to the lynn-white matter junctions of the parietal and temporal lobes are stable in overall number, size, and configuration. No new lesions are identified. There is no evidence of intracranial hemorrhage, ischemia, or mass. Ventricles and cerebral sulci are unchanged in size. No pathologic extra-axial fluid collections are noted. Normal flow-voids appear to be present in the major intracranial arteries at the base. No orbital lesion or significant paranasal sinus inflammatory changes are demonstrated. Procedure Note Melchor Call MD - 04/30/2017 TECHNIQUE: Exam performed on a 1.5 Desi high-field MRI scanner. AxialT1, T2, T2*, T2 FLAIR and diffusion-weighted imaging with ADC map,sagittal T1 FLAIR sequences were obtained. FINDINGS: Comparison is made with prior study of 08/01/2016. Multiple [id number] lesions scattered throughout the periventricular white matterand extending to the lynn- white matter junctions of the parietal andtemporal lobes are stable in overall number, size, and configuration. Nonew lesions are identified. There is no evidence of intracranialhemorrhage, ischemia, or mass. Ventricles and cerebral sulci areunchanged in size. No pathologic extra-axial fluid collections are noted.Normal flow-voids appear to be present in the major intracranial arteriesat the base. No orbital lesion or significant paranasal sinusinflammatory changes are demonstrated. IMPRESSION: Stable white matter lesions consistent with demyelinating plaques, withoutother significant interval change in the appearance of the intracranialcontents since 08/01/2016. POS - [id number] us Kenneth Carter MD IMG MR HEAD/NECK Final Resu lt documented in this encounter Visit Diagnoses Diagnosis MS (multiple sclerosis) Multiple sclerosis MS (multiple sclerosis) Multiple sclerosis MS (multiple sclerosis) Multiple sclerosis documented in this encounter Additional Health Concerns [...] documented as of this encounter Care Teams Oyster Planter Relationship Specialty Start Date End Date Olvin Harvey MD [address] [facility] Floor 1 [place] [address] [email or web address] PCP - General 12/07/13 06/11/18 Ema Kaufman DO 9 [place] [address] [email or web address] PCP - General 06/12/18 09/22/18 Krissy Hernandez PA [address] [place] [address] [email or web address] PCP - General Internal Medicine 09/23/18 10/04/18 Melchor Green MD [address] [place] [address] [email or web address] PCP - General Internal Medicine 10/05/18 02/10/19 Melchor Green MD [address] [place] [address] [email or web address] PCP - General Internal Medicine 02/11/19 04/11/20 Melchor Green MD [address] [place] [address] [email or web address] PCP - General Internal Medicine 04/12/20 05/25/23 Melchor Green MD [address] [place] [address] [email or web address] PCP - General Internal Medicine 05/26/23 01/25/25 Griselda Bello NP [address] [place] [address] PCP - General Nurse Practitioner 01/26/25 Olvin Harvey MD [address] [address] [email or web address] Insurance Assigned Provider 04/12/17 02/10/19 Chelsy Mclaughlin [facility] [address] [address] [email or web address] Registered Nurse 08/08/17 07/05/18 Melchor Bales MD [address] [place] [address] [email or web address] Gastroenterology 10/07/18 11/13/20 Jose Gallagher MD [address] [place] [address], [address] [address] [email or web address] Urology 10/07/18 11/13/20 Ramiro Schmidt MD [address] [place] [address], [address] [place] [address] [email or web address] Endocrinology 02/11/19 11/13/20 Enio Starkey MD [address] [place] [address], [address] [place] [address] [email or web address] Cardiology 02/11/19 11/13/20 Kenneth Carter MD [address] [place] [address] Neurology 02/11/19 11/13/20 Noe Mccann MD Ophthalmology 02/11/19 Audra Gutierrez MD [address] [place] [address] 2nd [place] [address] [email or web address] Intensive Care 02/11/19 Edouard Mosley MD [address] [place] [address] [email or web address] Plastic and Reconstructive Surgery 02/11/19 Nara Tejada MD [address] [place] [address], [address] [place] [address] [email or web address] Consulting Provider Nephrology 02/11/19 Jose Thomas MD [address] [place] [address] [email or web address] Consulting Provider Infectious Diseases 02/11/19 Trish Hammonds MD [address] [place] [address], [address] [address] [email or web address] Rheumatology 02/11/19 Celina He DPM [address] [place] [address], [address] [address] Podiatry 02/11/19 Olvin Harvey MD [address] [facility] Floor 1 [place] [address] [email or web address] Insurance Assigned Provider 04/12/17 03/06/19 Fabián Seaman MD [address] [facility], [address] [place] [address] [email or web address] Insurance Assigned Provider 03/06/19 07/09/19 Elizabeth Goode MD [address] [place] [address] 200 [place] [address] Psychologist 03/27/20 documented as of this encounter Additional Source Comments The information contained in this document represents components of the legal health record. It is not the complete legal health record[facility]
--- OUTSIDE RECORDS SUMMARY | 2025-04-16 20:57 | XMS_ITS | Encounter Summary ---
Author Organization [facility] Address [address] [facility] [address] [place] [address] Phone Care Team Providers Care Drafter Civil Engineering Name Role Phone Olvin Harvey MD Primary Care Provide r Olvin Harvey MD Unavailable [phone] Chelsy MclaughlinW Unavailable [email or web address] Ema Dumas DO Primary Care Provider Krissy Hernandez Primary Care Pro vider Martin Green MD Primary Care Provider [phone] Martin Bales MD Unavailable Jose Gallagher MD Unavailable [phone] Ramiro Schmidt MD Unavailable [phone] Enio Starkey MD Unavailable [phone] Kenneth Carter MD Unavailable Noe Mccann MD Unavailable Unavailable Audra Gutierrez MD Unavailable Edouard Mosley MD Unavailable Martin Green MD Primary Care Provider + Nara Tejada MD Unavailable [phone] Jose Thomas MD Unavailable + [phone] Trish Hammonds MD Unavailable [phone]- [phone] PayamcharCelina DPM Unavailable [phone] Olvin Harvey MD Unavailable [phone] Fabián Seaman MD Unavailable +[phone] Elizabeth Goode MD Unavailable [phone] Martin Green MD Primary Care Provider + Martin Green MD Primary Care Provider + Griselda Bello NP Primary Care Provider [phone] Encounter Details Date Type Department Care Team (Latest Contact Info) Description 12/02/2017 Transcribe Orders [address] [place] [address] Ramiro Schmidt MD [address] [place] [address] [email or web address] Diabetes mellitus type 2 with hyperosmolar coma, uncontrolled, unspecified whether manager terminal insulin use (Primary Dx); Hypercalcemia; Postsurgical hypothyroidism Social History Tobacco Use Types Packs/Day Years [...] 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 documented as of this encounter Plan of Treatment Upcoming Encounters Date Type Department Care Team (Late st Contact Info) Description 04/28/2025 2:00 PM EST Office Visit [facility] [address] Floor, [address] [place] [address] [phone] Minda Nelson DNP 22 [facility], [address] [address] 07/29/2025 1:00 PM EST Office Visit [facility] [address], [address] [place] [address] [phone] Minda Nelson DNP 22 [facility], [address] [phone] 08/31/2025 11:50 AM EDT Office Visit [facility] 10 [place] [address] Audra Gutierrez MD [address] [place] [address] [email or web address] documented as of this encounter Results * (ABNORMAL) Magnesium (12/02/2017 1:11 PM EDT) [facility] MAGNESIUM 1.4(L) 1.6 - 2.6 mg/dL [facility] Blood 12/02/2017 1:11 PM EDT 12/02/2017 1:19 PM EDT us Ramiro Schmidt MD LAB BLOOD BKR ORDERABLES Fi nal Result [facility] [address] [place], [place] [phone] * Vitamin A (12/02/2017 1:11 PM EDT) [facility] VITAMIN A 74.2 32.5 - 78.0 mcg/dL [facility] Comment: (NOTE) ADDITIONAL INFORMATION This test was developed and its performance characteristics determined by [facility] in a manner consistent with CLIA requirements. This test has not been cleared or approved by the U.S. Food and Drug Administration. Blood 12/02/2017 1:11 PM EDT 12/02/2017 1:14 PM EDT Ramiro Schmidt MD LAB BLOOD ORDERABLES Final Result [facility] [address] [place] [address] * TSH (12/02/2017 1:11 PM EDT) [facility] TSH 2.39 0.27 - 4.20 uIU/mL [facility] Blood 12/02/2017 1:11 PM EDT 12/02/2017 1:19 PM EDT Ramiro Schmidt MD LAB BLOOD BKR ORDERABLES Fi nal Result Performing Organization Address [facility]/ZIP Co de Phone Number [address] [address] * Parathyroid hormone (PTH) (12/02/2017 1:11 PM EDT) [facility] PARATHYROID HORMONE 21 15 - 65 pg/mL [facility] Blood 12/02/2017 1:11 PM EDT 12/02/2017 1:17 PM EDT Ramiro Schmidt MD LAB BLOOD BKR ORDERABLES Fi nal Result Performing Organization Address City/[facility] Co de Phone Number [address] [address] * (ABNORMAL) 25-OH vitamin D (12/02/2017 1:11 PM EDT) [facility] 25 OH VIT D (TOTAL) 28(L) 30 - 1,000 ng/mL [facility] Blood 12/02/2017 1:11 PM EDT 12/02/2017 1:19 PM EDT us Ramiro Schmidt MD LAB BLOOD BKR ORDERABLES Fi nal Result Performing Organization Address [facility] Co de Phone Number [address] [address] * (ABNORMAL) Renal panel (12/02/2017 1:11 PM EDT) SODIUM 143 133 - 146 mmol/L [facility] POTASSIUM 4.6 3.3 - 5.1 mmol/L [facility] CHLORIDE 102 96 - 108 mmol/L [facility] CO2 32 21 - 35 mmol/L [facility] GLUCOSE 193(H) 70 - 99 mg/dL [facility] BUN 26(H) 6 - 19 mg/dL [facility] CREATININE 0.90 0.5 - 1.5 mg/dL [facility] CALCIUM 9.3 8.4 - 10.3 mg/dL [facility] PHOSPHORUS 3.4 2.7 - 4.5 mg/dL [facility] ALBUMIN 3.9 3.9 - 4.8 g/dL [facility] EGFR 70 >59 mL/min/1.7 3m2 [facility] Comment:If patient is black, multiply result by 1.159. Estimated glomerular filtration rate calculated using the CKD-EPI equation. ANION GAP 14 10 - 20 mmol/L [facility] Blood 12/02/2017 1:11 PM EDT 12/02/2017 1:19 PM EDT us Ramiro Schmidt MD LAB BLOOD BKR ORDERABLES Fi nal Result Performing Organization Address [facility]/ZIP Co de Phone Number [address] [address] * (ABNORMAL) Hemoglobin A1c (12/02/2017 1:11 PM EDT) HEMOGLOBIN A1C 6.2(H) 4.3 - 5.8 % [facility] Blood 12/02/2017 1:11 PM EDT 12/02/2017 1:19 PM EDT us Ramiro Schmidt MD LAB BLOOD BKR ORDERABLES Fi nal Result [facility] [address] [place] [address] documented in this encounter Visit Diagnoses Diagnosis Diabetes mellitus type 2 with hyperosmolar coma, uncontrolled, unspecified whether long-term insulin use- Primary Hypercalcemia Postsurgical hypothyroidism documented in this encounter Additional Health Concerns [...] documented as of this encounter Care Teams Drafter Civil Engineering Relationship Specialty Start Date End Date Olvin Harvey MD 22 [facility] [address] [place] [address] [email or web address] PCP - General 12/07/13 06/11/18 Ema Kaufman DO [address] [place] [address] [email or web address] PCP - General 06/12/18 09/22/18 Krissy Hernandez PA [address] [place] [address] [email or web address] PCP - General Internal Medicine 09/23/18 10/04/18 Martin Green MD [address] [place] [address] [email or web address] PCP - General Internal Medicine 10/05/18 02/10/19 Martin Green MD [address] [place] [address] [email or web address] PCP - General Internal Medicine 02/11/19 04/11/20 Martin Green MD [address] [place] [address] [email or web address] PCP - General Internal Medicine 04/12/20 05/25/23 Martin Green MD [address] [place] [address] [email or web address] PCP - General Internal Medicine 05/26/23 01/25/25 Griselda Bello NP [address] [place] [address] PCP - General Nurse Practitioner 01/26/25 Olvin Harvey MD [address] [address] [email or web address] Insurance Assigned Provider 04/12/17 02/10/19 Chelsy Mclaughlin [employer]LLOWS ASSEMBLER [address] [address] [email or web address] Readiness Paraprofessional 08/08/17 07/05/18 Martin Bales MD [address] [place] [address] [email or web address] Gastroenterology 10/07/18 11/13/20 Jose Gallagher MD [address] [place] [address] [email or web address] Urology 10/07/18 11/13/20 Ramiro Schmidt MD [address] [place] [address], [address] [address] [email or web address] Endocrinology 02/11/19 11/13/20 Enio Starkey MD [address] [place] [address], [address] [address] [email or web address] Cardiology 02/11/19 11/13/20 Kenneth Carter MD [address] [place] [address] Neurology 02/11/19 11/13/20 Noe Mccann MD Ophthalmology 02/11/19 Audra Gutierrez MD [address] [place] [address] 2nd [place] [address] [email or web address] Intensive Care 02/11/19 Edouard Mosley MD [address] [place] [address], [address] [place] [address] [email or web address] Plastic and Reconstructive Surgery 02/11/19 Nara Tejada MD [address] [place] [address], [address] [place] [address] [email or web address] Consulting Provider Nephrology 02/11/19 Jose Thomas MD [address] [place] [address] [email or web address] Consulting Provider Infectious Diseases 02/11/19 Trish Hammonds MD [address] [place] [address] [email or web address] Rheumatology 02/11/19 Celina He DPM [address] [place] [address] Podiatry 02/11/19 Olvin Harvey MD 22 [facility] [address] [place] [address] [email or web address] Insurance Assigned Provider 04/12/17 03/06/19 Fabián Seaman MD [address] [facility], [address] [place] [address] [email or web address] Insurance Assigned Provider 03/06/19 07/09/19 Elizabeth Goode MD [address] [place] [address] [address] [place] [address] Psychologist 03/27/20 documented as of this encounter Additional Source Comments The information contained in this document represents components of the legal health record. It is not the complete legal health record.[facility]
--- OUTSIDE RECORDS SUMMARY | 2025-04-16 20:57 | XMS_ITS | Encounter Summary ---
Author Organization [facility] Address [address] [facility] [address] [place] [address] Phone Care Team Providers Care Edge Burnisher Name Role Phone Olvin Harvey MD Primary Care Provide r Olvin Harvey MD Unavailable [phone] Chelsy MclaughlinW Unavailable [email or web address] Ema Dumas DO Primary Care Provider Krissy Hernandez Primary Care Pro vider Martin Green MD Primary Care Provider [phone] Martin Bales MD Unavailable Jose Gallagher MD Unavailable [phone] Ramiro Schmidt MD Unavailable Enio Starkey MD Unavailable [phone] Kenneth Carter MD Unavailable Noe Mccann MD Unavailable Unavailable Audra Gutierrez MD Unavailable Edouard Mosley MD Unavailable Martin Green MD Primary Care Provider + Nara Tejada MD Unavailable [phone] Jose Thomas MD Unavailable [phone] Trish Hammonds MD Unavailable +[phone] Payamchar JoanAna Lima DPM Unavailable [phone] Olvin Harvey MD Unavailable [phone] Fabián Seaman MD Unavailable +[phone] Elizabeth Goode MD Unavailable [phone] Martin Green MD Primary Care Provider + Martin Green MD Primary Care Provider [phone] Griselda Bello NP Primary Care Provider [phone] Encounter Details Date Type Department Care Team (Late st Contact Info) Description 04/23/2017 Procedure Pass [facility], [address] [address] Social History Tobacco Use Types Packs/Day Years Used Date Smoking Tobacco: Former Cigarettes Q uit: 2011 Smokeless Tobacco: Never Comments Unknown Sex and Gender Information Value [...] Description 04/28/2025 2:00 PM EST Office Visit [facility] [address] 3[address] Floor, [address] [place] [address] Minda Nelson, ESTRELLITA 22 [facility], [address] [address] 07/29/2025 1:00 PM EST Office Visit [facility] [address] Floor, [address] [place] [address] Minda Nelson, ESTRELILTA 22 [facility], [address] [place] [address] 08/31/2025 11:50 AM EDT Office Visit [facility] 10 [facility] [place] [address] Audra Gutierrez MD [address] [address] [email or web address] documented as of this encounter Visit Diagnoses [...] documented as of this encounter Care Teams Edge Burnisher Relationship Specialty Start Date End Date Olvin Harvey MD 22 [facility] 1 [place] [address] [email or web address] PCP - General 12/07/13 06/11/18 Ema Kaufman DO [address] [place] [address] [email or web address] PCP - General 06/12/18 09/22/18 Krissy Hernandez PA [address] [place] [address] [email or web address] PCP - General Internal Medicine 09/23/18 10/04/18 Martin Green MD [address] [place] [address] [email or web address] PCP - General Internal Medicine 10/05/18 02/10/19 Martin Green MD [address] [place] [address] [email or web address] PCP - General Internal Medicine 02/11/19 04/11/20 Martin Green MD [address] [place] [address] [email or web address] PCP - General Internal Medicine 04/12/20 05/25/23 Martin Green MD 238 [place] [address] [email or web address] PCP - General Internal Medicine 05/26/23 01/25/25 Griselda Bello NP 238 [place] [address] PCP - General Nurse Practitioner 01/26/25 Olvin Harvey MD [address] [address] [email or web address] Insurance Assigned Provider 04/12/17 02/10/19 Chelsy Mclaughlin [facility] [address] [address] [email or web address] Tape Keller Operator 08/08/17 07/05/18 Matrin Bales MD [address] [place] [address] [email or web address] Gastroenterology 10/07/18 11/13/20 Jose Gallagher MD [address] [place] [address], [address] [address] [email or web address] Urology 10/07/18 11/13/20 Ramiro Schmidt MD [address] [place] [address], [address] [address] [email or web address] Endocrinology 02/11/19 11/13/20 Enio Starkey MD [address] [place] [address], [address] [address] [email or web address] Cardiology 02/11/19 11/13/20 Kenneth Carter MD [address] [place] [address] Neurology 02/11/19 11/13/20 Noe Mccann MD Ophthalmology 02/11/19 Audra Gutierrez MD [address] [place] [address] 2nd [place] [address] [email or web address] Intensive Care 02/11/19 Edouard Mosley MD [address] [place] [address], [address] [place] [address] [email or web address] Plastic and Reconstructive Surgery 02/11/19 Nara Tejada MD [address] [place] [address], [address] [place] [address] [email or web address] Consulting Provider Nephrology 02/11/19 Jose Thomas MD [address] [place] [address] [email or web address] Consulting Provider Infectious Diseases 02/11/19 Trish Hammonds MD [address] [place] [address], [address] [place] [address] [email or web address] Rheumatology 02/11/19 Celina He DPM 22 [facility], [address] [place] [address] [email or web address] Podiatry 02/11/19 Olvin Harvey MD 22 [facility] Floor 1 [place] [address] [email or web address] Insurance Assigned Provider 04/12/17 03/06/19 Fabián Seaman MD 22 [facility], [address] [place] [address] [email or web address] Insurance Assigned Provider 03/06/19 07/09/19 Elizabeth Goode MD [address] [place] [address] 200 [place] [address] Psychologist 03/27/20 documented as of this encounter Additional Source Comments The information contained in this document represents components of the legal health record. It is not the complete legal health record.[facility]
--- OUTSIDE RECORDS SUMMARY | 2025-04-16 20:57 | XMS_ITS | Clinical Summary ---
Author Organization [facility], Address [address] [place] [address] Phone Care Team Providers Care Welder Journeyman Name Role Phone Martin Green MD Primary Care Provider [phone] Allergies Active Allergy Reactions Criticality Noted Date Comments Amoxicillin-Pot Clavulanate Anaphylaxis High 10/14/2013 shortness of breath Cefadroxil Shortness of breath High 05/12/2017 Cephalosporins Shortness of breath,Other (see comments) High 10/14/2013 Difficulty with several cephalosporins but cephalexin is OK Difficulty with several cephalosporins but cephalexin is OK Ciprofloxacin Other (see comments) 03/29/2021 Other reaction(s): Unknown (inactive) (inactive) Clarithromycin Shortness of breath,Other (see comments) High 10/14/2013 Codeine Anaphylaxis,Shortn ess of breath,Other (see comments) High 04/24/2017 Dyspnea Diphenhydramine Anaphylaxis,Shortn ess of breath,Other (see comments) High 05/12/2017 Doxycycline GI intolerance,Nausea ,Shortness of breath,Other (see comments) High 09/10/2017 Duloxetine Hcl Other (see comments) 03/29/2021 Escitalopram Other (see comments) Medium 10/07/2018 Made her mean Fluoxetine Other (see comments) Medium 11/10/2013 Made her mean Fluticasone-Salmeterol Other (see comments) High 10/06/2019 SOB Gabapentin Other (see comments) Medium 04/24/2017 can't think right altered nental status (active) can't think right Ketorolac Shortness of breath High 03/27/2020 Levofloxacin Shortness of breath,Other (see comments) High 11/22/2019 Lisinopril Other (see comments) Medium 10/14/2013 can't think right Cough can't think right Losartan Shortness of breath,Other (see comments) High 07/11/2017 Shortness of breath Losartan Potassium-Hctz Other (see comments) 03/29/2021 Metformin Other (see comments) Medium 02/11/2019 I did not feel like myself Nsaids Other (see comments) 02/11/2019 GI upset Other Anaphylaxis,Shortn ess of breath,Nausea And Vomiting High 10/14/2013 Benadryl. Codeine Derivatives. Benadryl. Codeine Derivatives. Benadryl. Codeine Derivatives. Steroids Penicillins Anaphylaxis,Shortn ess of breath,Other (see comments) High 10/14/2013 Pregabalin Other (see comments) Medium 03/29/2021 Other reaction(s): Dizziness Sulfa Antibiotics Other (see comments) 03/29/2021 Sulfamethoxazole-Trimet hopri 09/26/2021 Medications amphetamine-dex troamphetamine (ADDERALL) 30 MG tablet Take 30 mg by mouth 0 Active ammonium lactate (AMLACTIN) 12 % cream Apply topically 1 Active apixaban (ELIQUIS) 5 MG tablet Take 1 tablet by mouth 2 (two) times a day 0 Active dorzolamide (TRUSOPT) 2 % ophthalmic solution Administer 1 drop into affected eye(s) twice a day 0 Active glipiZIDE (GLUCOTROL) 10 MG tablet Take 10 mg by mouth in the morning and 10 mg in the evening. Active levothyroxine (SYNTHROID, LEVOTHROID) 100 MCG tablet Take 100 mcg by mouth daily 0 Active magnesium oxide (MAG-OX) 400 MG tablet Take 1,200 mg by mouth twice a day 8 Active methenamine (HIPREX) 1 g tablet Take 1 tablet by mouth 1 (one) time each day 8 Active modafinil (PROVIGIL) 100 MG tablet Take 100 mg by mouth twice a day 1 Active montelukast (SINGULAIR) 10 MG tablet Take 1 tablet by mouth 1 (one) time each day 4 Active morphine (MSIR) 15 MG tablet Take 15 mg by mouth in the morning and 15 mg at noon and 15 mg in the evening. 0 Active nystatin (MYCOSTATIN) powder Apply 1 application topically twice a day 1 Active potassium chloride (KLOR-CON M20) 20 MEQ CR tablet Take 80 mEq by mouth in the morning and 80 mEq in the evening. 1 Active promethazine (PHENERGAN) 25 MG tablet Take 25 mg by mouth every 6 (six) hours if needed 0 Active sildenafil (REVATIO) 20 MG tablet Take 20 mg by mouth 3 times a day 1 Active spironolactone (ALDACTONE) 100 MG tablet Take 100 mg by mouth daily 4 Active amantadine (SYMMETREL) 100 MG capsule Take 100 mg by mouth in the morning and 100 mg in the evening. 2 Active fluconazole (DIFLUCAN) 150 MG tablet Take 300 mg by mouth per week 2 Active carboxymethylce llulose (REFRESH PLUS) 0.5 % solution 1-2 drops daily Active lidocaine (LIDODERM) 5 % patch Place 3 patches on the skin 2 Active topiramate (TOPAMAX) 50 MG tablet Take 50 mg by mouth 2 Active cholecalciferol (VITAMIN D-3) 1.25 MG (68643 UT) tablet Take 50,000 Units by mouth 1 (one) time per week 0 Active clotrimazole (LOTRIMIN) 1 % cream Apply 1 application topically 2 Active aspirin (ST COMPA) 81 MG EC tablet Take 81 mg by mouth 1 (one) time each day Active brimonidine (ALPHAGAN P) 0.1 % solution Activ e lisinopril 5 MG tablet Take 5 mg by mouth 1 (one) time each day Active Estradiol 10 MCG tablet Insert 10 mcg into the vagina 2 (two) times a week 2 Active Dulaglutide (Trulicity) 4.5 MG/0.5ML solution pen-injector Inject 4.5 mg under the skin 2 Active Active Problems Problem Noted Date Diagnosed Date 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 Cont with KCL supplements. Proteinuria 03/29/2021 Renal disorder due to type 2 diabetes mellitus 1 Polyneuropathy due to type 2 diabetes mellitus 0 12/13/2020 Overview (10/05/2021): Last Assessment & Plan: She finds lidocaine patches somewhat helpful and requests refills so she can tolerate the pain. Hypomagnesemia 03/26/2020 Overview (03/29/2021): Last Assessment & Plan: Check serum level to make sure that she does not require additional supplementation Acute nontraumatic kidney injury 06/13/2019 Overview (03/29/2021): Last Assessment & Plan: The patient's baseline creatinine appears to be 0.9 and today is 1.3. She appears to be suffering from acute kidney injury due to volume depletion. She was hydrated with IVF with normalized kidney function Anti-nuclear factor detected 05/13/2019 Vitamin D deficiency 10/07/2018 Overview (03/29/2021): Last Assessment & Plan: Continue proper vitamin D supplementation as prescribed to optimize serum level at 40-45 ng/ml. Hyperlipidemia 09/23/2018 Overview (03/29/2021): Last Assessment & Plan: Profile done in house included triglycerides over 400. Will need repeat. Statin intolerance. Peripheral neuropathy 11/10/2013 Overview (03/29/2021): Peripheral Neuropathy Acquired hypothyroidism 10/14/2013 Overview (10/05/2021): Hypothyroidism Last Assessment & Plan: Continue thyroid hormone replacement therapy as prescribed and follow closely with prescribing physician. Last Assessment & Plan: Continue thyroid hormone replacement therapy as prescribed and follow closely with prescribing physician. Type 2 diabetes mellitus 10/14/2013 Overview (03/29/2021): Diabetes Mellitus Dyslipidemia 10/14/2013 Overview (03/29/2021): Dyslipidemia Essential hypertension 10/14/2013 Overview (10/05/2021): Hypertension Last Assessment & Plan: Trolled on present therapy. No changes. Last Assessment & Plan: Patient has discontinued her spironolactone secondary to PCP recommendation. Her blood pressure today is 130/72 and she is not on any other cardiac medication besides furosemide 20 mg daily. Monitor and follow-up as needed. Urinary tract infection 10/14/2013 Overview (03/29/2021): Urinary Tract Infection Resolved Problems Problem Noted Date Diagnosed Date Resolved Date Stage 3b chronic kidney disease 04/10/2021 09/03/2022 Chronic kidney disease stage 2 03/29/2021 04/10/2021 Immunizations Immunization Administration Dates Next Due Pfizer SARS-COV-2 09/16/2020,08/24/2020 Pneumococcal Conjugate 13-Valent 06/30/2014 Pneumococcal Polysaccharide 10/07/2017, 3 Td 10/20/2018 Tdap 12/11/2012 Family History Medical History Relation Comments Heart disease Father Hypertension Father Diabetes Mother Heart disease Mother also Grandmother Hypertension Mother Stroke Mother Cancer Sibling 1 Mouth/Brother Heart disease Sibling 1 Sister Hypertension Sibling 1 2 Sisters, 2 Bro thers Hypertension Sibling 2 2 sisters, 2 bro thers Heart disease Sibling 3 1 sister Relation Status Comments Father Mother Sibling 1 Sibling 2 Sibling 3 Social History Tobacco Use Types Packs/Day Years Used Date Smoking Tobacco: Former Cigarettes Q uit: 12/16/2010 Comments:Smoking History Inf o:Unknown Alcohol Use Standard Drinks/Week Comments No 0 (1 standard drink = 0.6 oz pur e alcohol) Comments Unknown Sex and Gender Information Value Date Recorded Sex Assigned at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 Legal Sex Female 4:33 PM EST Gender Identity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 Sexual Orientation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 Last Filed Vital Signs Vital Sign Reading Time Taken Comments Blood Pressure 135/70 09/03/2022 1:43 PM EDT Pulse 66 09/03/2022 1:43 PM EDT Temperature 36.7 C (98 F) 01/12/2019 12:00 PM EDT Respiratory Rate 14 09/03/2022 1:43 PM EDT Oxygen Saturation - - Inhaled Oxygen Concentration - - Weight 74.8 kg (165 lb) 09/03/2022 1:43 PM EDT Height 157.5 cm (5' 2 ) 09/03/2022 1:43 PM EDT Body Mass Index 30.18 09/03/2022 1:43 PM EDT Plan of Treatment Health Maintenance Due Date Last Done Comments Breast Cancer Screening 1960 Colorectal Cancer Screening: Annual FOBT 2007 Colorectal Cancer Screening: Colonoscopy 2007 Colorectal Cancer Screening: Sigmoidoscopy 2007 Diabetes: Hemoglobin A1C 08/30/2019 Diabetes: Ophthalmology Exam 08/30/2019 Diabetes: Pedal Pulse Checked 08/30/2019 Diabetes: Sensory Foot Exam 08/30/2019 Diabetes: Visual Foot Exam 08/30/2019 Pneumococcal Vaccine: 50+ Years (4 of 4 - PCV20 or PCV21) 10/07/2022 10/07/2017, 06/30/2014, 12/11/2012 Influenza Vaccine (#1) 2025 Pneumococcal Vaccine: Peds ( 0 to 5 Years) and At-Risk Patients (6 to 49 Years) Discontinued 10/07/2017, 06/30/2014, 12/11/2012 Hepatitis B Vaccine Aged Out No longe r eligible based on patient's age to complete this topic Insurance [employer] Dual SNP ([id number]) HILARY SMITH [id number] Care Teams Welder Journeyman Relationship Specialty Start Date End Date Martin Green MD [address] [place] [phone] PCP - General 04/13/19
--- OUTSIDE RECORDS SUMMARY | 2025-04-16 20:57 | XMS_ITS | Encounter Summary ---
Author Organization [facility] Address [address] [place] [address] Phone Care Team Providers Care Fast Food Restaurant Manager Name Role Phone Martin Bales MD Unavailable Jose Gallagher MD Unavailable [phone] Ramiro Schmidt MD Unavailable Enio Starkey MD Unavailable [phone] Kenneth Carter MD Unavailable Noe Mccann MD Unavailable Unavailable Audra Gutierrez MD Unavailable Edouard Mosley MD Unavailable Martin Green MD Primary Care Provider Nara Tejada MD Unavailable [phone] Jose Thomas MD Unavailable [phone] Trish Hammonds MD Unavailable [phone] Celina He DPM Unavailable Elizabeth Goode MD Unavailable [phone] Martin Green MD Primary Care Provider [phone] Martin Green MD Primary Care Provider [phone] Griselda Bello NP Primary Care Provider [phone] Encounter Details Date Type Department Care Team (Late Contact Info) Description 04/01/2020 Procedure Pass [facility], Ct Scan - [address] [address] Social History Tobacco Use Types Packs/Day Years [...] 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, [address] [place] [address] Minda Nelson DNP [address] [place] [address] 07/29/2025 1:00 PM EST Office Visit [facility] [address]rd Floor, [address] [place] [address] Minda Nelson DNP [address] [place] [address], [address] [address] 08/31/2025 11:50 AM EDT Office Visit [facility] [address] [place] [address] [place] [address] Audra Gutierrez MD [address] [place] [address] [email or web address] documented as of this encounter Visit Diagnoses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documented in this encounter Additional Health Concerns Infection Onset Date Last Indicated Resolved Time 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 Infection Utility 08/05/2015 08/05/2015 07/24/2022 1:[address] CoV-Risk 05/19/2020 05/19/2020 06/02/2020 1:24 AM EST [...] documented as of this encounter Care Teams Fast Food Restaurant Manager Relationship Specialty Start Date End Date Martin Green MD [address] [place] [address], [address] [address] [email or web address] PCP - General Internal Medicine 02/11/19 04/11/20 Martin Green MD [address] [place] [address], [address] [address] [email or web address] PCP - General Internal Medicine 04/12/20 05/25/23 Martin Green MD [address] [place] [phone] [email or web address] PCP - General Internal Medicine 05/26/23 01/25/25 Griselda Bello NP [address] [place] [address] PCP - General Nurse Practitioner 01/26/25 Martin Bales MD [address] [place] [address] [email or web address] Gastroenterology 10/07/18 11/13/20 Jose Gallagher MD [address] [place] [address], [address] [place] [address] [email or web address] Urology 10/07/18 11/13/20 Ramiro Schmidt MD [address] [place] [address], [address] [place] [address] [email or web address] Endocrinology 02/11/19 11/13/20 Enio Starkey MD [address] [place] [address], [address] [place] [address] [email or web address] Cardiology 02/11/19 11/13/20 Kenneth Carter MD [address] [place] [address] Neurology 02/11/19 11/13/20 Noe Mccann MD Ophthalmology 02/11/19 Audra Gutierrez MD [address] [place] [address] 2nd [place] [address] [email or web address] Intensive Care 02/11/19 Edouard Mosley MD [address] [place] [address], [address] [place] [address] [email or web address] Plastic and Reconstructive Surgery 02/11/19 Nara Tejada MD [address] [place] [address], [address] [place] [address] [email or web address] Consulting Provider Nephrology 02/11/19 Jose Thomas MD [address] [place] [address] [email or web address] Consulting Provider Infectious Diseases 02/11/19 Trish Hammonds MD [address] [place] [address] [email or web address] Rheumatology 02/11/19 Celina He DPM [address], [address] [place] [address] [email or web address] Podiatry 02/11/19 Elizabeth Goode MD [address] [place] [address] Psychologist 03/27/20 documented as of this encounter Additional Source Comments The information contained in this document represents components of the legal health record. It is not the complete legal health record.[facility]
--- OUTSIDE RECORDS SUMMARY | 2025-04-16 20:57 | XMS_ITS | Encounter Summary ---
Author Organization [facility] Address [address] [place] [address] Phone Care Team Providers Care Chief Of Planning Name Role Phone Noe Mccann MD Unavailable Unavailable Audra Gutierrez MD Unavailable Edouard Mosley MD Unavailable Nara Tejada MD Unavailable [phone] Jose Thomas MD Unavailable [phone] Trish Hammonds MD Unavailable Celina He DPEvelin Unavailable Elizabeth Goode MD Unavailable [phone] Martin Green MD Primary Care Provider Griselda Bello NP Primary Care Provider [phone] Encounter Details Date Type Department Care Team (Late st Contact Info) Description 07/20/2024 Procedure Pass [facility], Ct Scan - [facility] [address] [place] [address] Social History Tobacco Use Types Packs/Day Years Used Date Smoking Tobacco: Former Cigarettes 2 45 1 966 - 2010 Passive Smoke Exposure: Past Smokeless Tobacco: Never Alcohol Use Standard Drinks/Week Comments No 0 (1 standard drink = 0.6 oz pur e alcohol) Home Health Assessment: Transportation Answer Date Recorded Lack of Transportation (Medical) No 09/01/2023 Lack of Transportation (Non-Medical) Yes 09/01/2023 Patient Unable or Declines to Respond No 09/01/2023 Education Answer Date Recorded Are you interested in more education? Not on lucius e 10/04/2022 Are you concerned about learning?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 10/04/2022 No 10/04/2022 No 10/04/2022 Digital Access Answer Date Recorded No 10/30/2022 No 10/30/2022 Reliable internet access at home?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 10/30/2022 Device with a working camera?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 Intimate Partner Violence Answer Date R ecorded Are you denied basic needs s uch as food, clothing, or medical care? No 07/20/2024 In the past 12 months have y ou been in a relationship with a person who hurts, threatens, or tries to control you? No 07/20/2024 Are you denied basic needs s uch as food, clothing, or medical care? No 07/20/2024 In the past 12 months have y ou been in a relationship with a person who hurts, threatens, or tries to control you? No 07/20/2024 Comments No Sex and Gender Information Value Date Recorded Sex Assigned at Female 10/17/2017 8:32 PM EDT Legal Sex Female 12:39 PM EDT Gender Identity Female 10/17/2017 8:32 PM EDT Sexual Orientation Straight 06/30/2020 5: 59 PM EST Occupation Industry Job Start Date Job End Date Retired [employer]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 documented as of this encounter Functional Status * Calculated C-SSRS Risk Score (Lifetime/Recent) Answer Date of Assessment Author No Risk Indicated 07/20/2024 2:32 PM Elizabeth Potter RN * [place] Suicide Severity Rating Scale (Screener/Recent Self-Report) Question Answer Date of Assessment Author 1. Wish to be (Past 1 Month) No 025 2:32 PM Elizabeth Doran RN 2. Non-Specific Active Suici aby Thoughts (Past 1 Month) No 07/20/2024 2:32 PM Elizabeth Doran RN 6. Suicidal Behavior (Lifetime) No 2:32 PM Elizabeth Doran RN documented as of this encounter Plan of Treatment Upcoming Encounters Date Type Department Care Team ([facility] st Contact Info) Description 04/28/2025 2:00 PM EST Office Visit [facility] [address] [place] [address], [address] [place] [address] Minda Nelson DNP [address] [place] [address] [email or web address] 07/29/2025 1:00 PM EST Office Visit [facility] [address], [address] [address] Minda Nelson DNP [address] [place] [address] 08/31/2025 11:50 AM EDT Office Visit [facility] [address] [place] [address] Audra Gutierrez MD [address] [place] [address] documented as of this encounter Visit Diagnoses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documented in this encounter Additional Health Concerns Infection Onset Date Last Indicated Resolved Time CoV-Risk Comment:Per note documentation 07/20/2024 07/20/2024 5:59 [...] documented as of this encounter Care Teams Chief Of Planning Relationship Specialty Start Date End Date Martin Green MD [address] [place] [address] [email or web address] PCP - General Internal Medicine 05/26/23 01/25/25 Griselda Bello NP [address] [place] [address] PCP - General Nurse Practitioner 01/26/25 Noe Mccann MD Ophthalmology 02/11/19 Audra Gutierrez MD [address] [place] [address] 2nd [place] [address] [email or web address] Intensive Care 02/11/19 Edouard Mosley MD [address] [place] [address], [address] [place] [address] Plastic and Reconstructive Surgery 02/11/19 Nara Tejada MD [address] [place] [address], [address] [place] [address] [email or web address] Consulting Provider Nephrology 02/11/19 Jose Thomas MD [address] [place] [address] [email or web address] Consulting Provider Infectious Diseases 02/11/19 Trish Hammonds MD [address] [facility] [address], [address] [address] Rheumatology 02/11/19 Celina He DPM [address] [place] [address] Podiatry 02/11/19 Elizabeth Goode MD [address] [place] [address] Psychologist 03/27/20 documented as of this encounter Additional Source Comments The information contained in this document represents components of the legal health record. It is not the complete legal health record.[facility]
--- OUTSIDE RECORDS SUMMARY | 2025-04-16 20:57 | XMS_ITS | Encounter Summary ---
Author Organization [facility] Address [address] [place] [address] [address] [place] [address] Phone Care Team Providers Care Firmware Engineer Name Role Phone Noe Mccann MD Unavailable Unavailable Audra Gutierrez MD Unavailable Edouard Mosley MD Unavailable Nara Tejada MD Unavailable [phone] Jose Thomas MD Unavailable + [phone] Trish Hammonds MD Unavailable [phone] Celina He DPM Unavailable [phone] Elizabeth Goode MD Unavailable [phone] Martin Green MD Primary Care Provider [phone] Martin Green MD Primary Care Provider [phone] Griselda Bello NP Primary Care Provider + [phone] Encounter Details Date Type Department Care Team (Late st Contact Info) Description 04/14/2021 Procedure Pass [facility], Ct Scan - [facility] [address] [place] [address] Social History Tobacco Use Types Packs/Day Years [...] 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 Wish to be (Past 1 Month) No 021 12:26 PM EDT Lisa Man RN 2. Non-Specific Active Suici aby Thoughts (Past 1 Month) No 04/14/2021 12:26 PM EDT Cesar Man RN 6. Suicidal Behavior (Lifetime) No 12:26 PM EDT Lisa Man RN documented as of this encounter Plan of Treatment Upcoming Encounters Date Type Department Care Team (Late st Contact Info) Description 04/28/2025 2:00 PM EST Office Visit [facility] [address] [place] [address], [address] [address] Minda Nelson DNP [address] [place] [address] 07/29/2025 1:00 PM EST Office Visit [facility] [address] 3rd [facility], [address] [address] Minda Nelson DNP [address] [place] [address] 08/31/2025 11:50 AM EDT Office Visit [facility] 10 [facility] [place] [address] [place] [address] Audra Gutierrez MD [address] [place] [address] [email or web address] documented as of this encounter Visit Diagnoses [...] documented as of this encounter Care Teams Firmware Engineer Relationship Specialty Start Date End Date Martin Green MD [address] [facility] 200 [place] [address] [email or web address] PCP - General Internal Medicine 04/12/20 05/25/23 Martin Green MD 238 [place] [address] PCP - General Internal Medicine 05/26/23 01/25/25 Griselda Bello, GAEL [address] [place] [address] PCP - General Nurse Practitioner 01/26/25 Noe Mccann MD Ophthalmology 02/11/19 Audra Gutierrez MD [address] [place] [address] [email or web address] Intensive Care 02/11/19 Edouard Mosley MD [address] [place] [address] [email or web address] Plastic and Reconstructive Surgery 02/11/19 Nara Tejada MD [address] [place] [address], 3 [place] [address] [email or web address] Consulting Provider Nephrology 02/11/19 Jose Thomas MD [address] [place] [address] [email or web address] Consulting Provider Infectious Diseases 02/11/19 Trish Hammonds MD [address] [place] [address], [address] [address] Rheumatology 02/11/19 Celina He DPM 22 [facility], [address] [address] Podiatry 02/11/19 Elizabeth Goode MD [address] [place] [address] 200 [place] [address] Psychologist 03/27/20 documented as of this encounter Additional Source Comments The information contained in this document represents components of the legal health record. It is not the complete legal health record.[facility]
--- OUTSIDE RECORDS SUMMARY | 2025-04-16 20:57 | XMS_ITS | Encounter Summary ---
Author Organization [facility] Address [address] [facility] [address] [place] [address] Phone Care Team Providers Care Ap Operator Name Role Phone Noe Mccann MD Unavailable Unavailable Audra Gutierrez MD Unavailable [phone] Edouard Mosley MD Unavailable Nara Tejada MD Unavailable Jose Thomas MD Unavailable [phone] Trish Hammonds MD Unavailable [phone] Celina He DPM Unavailable [phone] Elizabeth Goode MD Unavailable [phone] Griselda Bello SUPERVISOR POLE YARD Primary Care Provider [phone] Encounter Details Date Type Department Care Team (Late st Contact Info) Description 03/23/2025 Procedure Pass [facility], Josh [address] 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 documented as of this encounter Plan of Treatment Upcoming Encounters Date Type Department Care Team ([facility] st Contact Info) Description 04/28/2025 2:00 PM EST Office Visit [facility] [address] [place] [address] 3rd [facility], [address] [place] [address] Minda Nelson DNP [address] [place] [address] 07/29/2025 1:00 PM EST Office Visit [facility] [address] 3rd [facility], [address] [place] [address] Minda Nelson DNP [address] [place] [address] 08/31/2025 11:50 AM EDT Office Visit [facility] [address] [place] [address] Audra Gutierrez MD [address] [place] [address] documented as of this encounter Visit Diagnoses [...] documented as of this encounter Care Teams Ap Operator Relationship Specialty Start Date End Date AceGriseldaGAEL fine [address] [place] [address] PCP - General Nurse Practitioner 01/26/25 Noe Mccann MD Ophthalmology 02/11/19 Audra Gutierrez MD [address] [place] [address] 2nd [place] [address] [email or web address] Intensive Care 02/11/19 Edouard Mosley MD [address] [place] [address] [email or web address] Plastic and Reconstructive Surgery 02/11/19 Nara Tejada MD [address] [place] [address], 3 [place] [address] [email or web address] Consulting Provider Nephrology 02/11/19 Jose Thomas MD [address] [place] [address] [email or web address] Consulting Provider Infectious Diseases 02/11/19 Trish Hammonds MD [address] [place] [address] [email or web address] Rheumatology 02/11/19 Celina He DPM [address] [place] [address] Podiatry 02/11/19 Elizabeth Goode MD 301 [facility] 200 [place] [address] Psychologist 03/27/20 documented as of this encounter Additional Source Comments The information contained in this document represents components of the legal health record. It is not the complete legal health record.[facility]
--- OUTSIDE RECORDS SUMMARY | 2025-04-16 20:57 | XMS_ITS | Encounter Summary ---
Author Organization [facility] Address [address] [facility] [address] [place] [address] Phone Care Team Providers Care Superintendent Landfill Operations Name Role Phone Noe Mccann MD Unavailable Unavailable Audra Gutierrez MD Unavailable Edouard Mosley MD Unavailable Nara Tejada MD Unavailable [phone] Jose Thomas MD Unavailable [phone] Trish Hammonds MD Unavailable [phone] Celina He DPEvelin Unavailable Elizabeth Goode MD Unavailable [phone] Griselda Bello RN ORTHOPEDIC Primary Care Provider [phone] Encounter Details Date Type Department Care Team (Late st Contact Info) Description 03/17/2025 Procedure Pass [facility] Cardiac US [address] [place] [address] Social History Tobacco Use Types Packs/Day Years [...] 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 Wish to be (Past 1 Month) No 03/17/2025 11:00 PM EDT Jillian Salazar RN 2. Non-Specific Active Suicidal Thoughts (Past 1 Month) No 03/17/2025 11:00 PM EDT Jillian Salazar RN 6. Suicidal Behavior (Lifetime) No 03/17/2025 11:00 PM EDT Jillian Salazar RN documented as of this encounter Plan of Treatment Upcoming Encounters Date Type Department Care Team (Late st Contact Info) Description 04/28/2025 2:00 PM EST Office Visit [facility] [address] [place] [address], [address] [address] Minda Nelson DNP [address] [place] [address] 07/29/2025 1:00 PM EST Office Visit [facility] [address] [place] [address], [address] [address] Minda Nelson DNP [address] [place] [address] 08/31/2025 11:50 AM EDT Office Visit [facility] 10 [place] [address] Audra Gutierrez MD [address] [address] [email or web address] documented as of this encounter Visit Diagnoses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documented in this encounter Additional Health Concerns 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 03/21/2025 03/21/2025 03/22/2025 9:01 AM EDT CDiff-Risk 03/26/2025 03/26/2025 03/27/2025 8:59 AM EDT CDiff-Risk 04/10/2025 04/10/2025 04/10/2025 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 Assessment Noted Time PHQ-9 Depression Total Score: 20 021 1:11 PM EDT PHQ-2 Depression Total Score: 6 01/16/20 21 1:11 PM EDT documented as of this encounter Care Teams Superintendent Landfill Operations Relationship Specialty Start Date End Date Griselda Bello NP [address] [place] [address] PCP - General Nurse Practitioner 01/26/25 Noe Mccann MD Ophthalmology 02/11/19 Audra Gutierrez MD [address] [address] [email or web address] Intensive Care 02/11/19 Edouard Mosley MD [address] [place] [address], [address] [place] [address] Plastic and Reconstructive Surgery 02/11/19 Nara Tejada MD [address] [place] [address], [address] [place] [address] Consulting Provider Nephrology 02/11/19 Jose Thomas MD [address] [place] [address] [email or web address] Consulting Provider Infectious Diseases 02/11/19 Trish Hammonds MD [address] [place] [address] [email or web address] Rheumatology 02/11/19 Celina He DPM [address] [place] [address], [address] [address] Podiatry 02/11/19 Elizabeth Goode MD [address] [place] [address] 200 [place] [address] Psychologist 03/27/20 documented as of this encounter Additional Source Comments The information contained in this document represents components of the legal health record. It is not the complete legal health record.[facility]
--- OUTSIDE RECORDS SUMMARY | 2025-04-16 20:57 | XMS_ITS | Encounter Summary ---
Author Organization [facility] Address [address] [facility] [address] [place] [address] Phone Care Team Providers Care Adult Live In Caregiver Name Role Phone Martin Bales MD Unavailable Jose aGllagher MD Unavailable [phone] Ramiro Schmidt MD Unavailable [phone] Enio Starkey MD Unavailable [phone] Kenneth Carter MD Unavailable [phone] Noe Mccann MD Unavailable Unavailable Audra Gutierrez MD Unavailable Edouard Mosley MD Unavailable Nara Tejada MD Unavailable [phone] Jose Thomas MD Unavailable [phone] Trish Hammonds MD Unavailable [phone] Celina He DPM Unavailable Elizabeth Goode MD Unavailable Martin Green MD Primary Care Provider [phone] Martin Green MD Primary Care Provider Griselda Bello NP Primary Care Provider [phone] Encounter Details Date Type Department Care Team (Late Contact Info) Description 05/15/2020 Transcribe Orders [facility] Main [address] [place] [address] Lucie Lakhani NP [address] [place] [address] [email or web address] Mixed hyperlipidemia (Primary Dx); Type 2 diabetes mellitus with hyperglycemia, unspecified whether aircraft seat upholsterer insulin use; Multiple sclerosis; Essential hypertension Social History Tobacco Use Types Packs/Day Years [...] 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 documented as of this encounter Plan of Treatment Upcoming Encounters Date Type Department Care Team ([facility] Contact Info) Description 04/28/2025 2:00 PM EST Office Visit [facility] [address] [place] [address] [place] [address], [address] [place] [address] Minda Nelson DNP [address] [place] [address] [email or web address] 07/29/2025 1:00 PM EST Office Visit [facility] [address] 3rd Floor, [address] [address] Minda Nelson DNP [address] [place] [address] 08/31/2025 11:50 AM EDT Office Visit [facility] 10 [facility] [place] [address] Audra Gutierrez MD 10 [facility] 2nd [place] [address] [email or web address] documented as of this encounter Results * Iron (05/15/2020 10:15 AM EST) IRON 62 30 - 160 ug/dL [facility] Blood 05/15/2020 10:1 5 AM EST 05/15/2020 10:20 AM EST us Lucie Lakhani BLOOD BANK TECHNICIAN LAB BLOOD ORDERABLES Final Res ult Performing Organization Address [facility] Co de Phone Number [address] [address] * Vitamin B12 (05/15/2020 10:15 AM EST) VITAMIN B12 809 232 - 1,245 pg/mL [facility] Blood 05/15/2020 10:1 5 AM EST 05/15/2020 10:20 AM EST us Lucie Lakhani BLOOD BANK TECHNICIAN LAB BLOOD BKR ORDERABLES Final Result Performing Organization Address [facility] Co de Phone Number [address] [address] * (ABNORMAL) TSH (05/15/2020 10:15 AM EST) TSH 6.72(H) 0.27 - 4.20 uIU/mL [facility] Blood 05/15/2020 10:1 5 AM EST 05/15/2020 10:20 AM EST us Lucie Lakhani BLOOD BANK TECHNICIAN LAB BLOOD BKR ORDERABLES Final Result Performing Organization Address [facility]/ZIP Co de Phone Number [place] [address] [place] [address] documented in this encounter Visit Diagnoses Diagnosis Mixed hyperlipidemia- Primary Type 2 diabetes mellitus with hyperglycemia, unspecified whether aircraft seat upholsterer insulin use Multiple sclerosis Essential hypertension Unspecified essential hypertension documented in this encounter Additional Health Concerns [...] documented as of this encounter Care Teams Adult Live In Caregiver Relationship Specialty Start Date End Date Martin Green MD [address] [place] [address] [email or web address] PCP - General Internal Medicine 04/12/20 05/25/23 Martin Green MD [address] [place] [address] [place] [address] [email or web address] PCP - General Internal Medicine 05/26/23 01/25/25 Griselda Bello NP [address] [place] [address] PCP - General Nurse Practitioner 01/26/25 Martin Bales MD [address] [place] [address] [email or web address] Gastroenterology 10/07/18 11/13/20 Jose Gallagher MD [address] [place] [address], [address] [place] [address] [email or web address] Urology 10/07/18 11/13/20 Ramiro Schmidt MD [address] [place] [address], [address] [place] [address] [email or web address] Endocrinology 02/11/19 11/13/20 Enio Starkey MD [address] [place] [address], [address] [place] [address] [email or web address] Cardiology 02/11/19 11/13/20 Kenneth Carter MD [address] [place] [address] Neurology 02/11/19 11/13/20 Noe Mccann MD Ophthalmology 02/11/19 Audra Gutierrez MD [address] [place] [address] [email or web address] Intensive Care 02/11/19 Edouard Mosley MD [address] [place] [address], [address] [place] [address] Plastic and Reconstructive Surgery 02/11/19 Nara Tejada MD [address] [place] [address], [address] [place] [address] Consulting Provider Nephrology 02/11/19 Jose Thomas MD [address] [place] [address] [email or web address] Consulting Provider Infectious Diseases 02/11/19 Trish Hammonds MD [address] [facility], [address] [place] [address] Rheumatology 02/11/19 Celina He DPM [address] [facility], [address] [place] [address] Podiatry 02/11/19 Elizabeth Goode MD [address] [place] [address] Psychologist 03/27/20 documented as of this encounter Additional Source Comments The information contained in this document represents components of the legal health record. It is not the complete legal health record.[facility]
--- OUTSIDE RECORDS SUMMARY | 2025-04-16 20:57 | XMS_ITS | Encounter Summary ---
Author Organization [facility] Address [address] [facility] [address] [place] [address] Phone Care Team Providers Care Supervisor Instrument Mechanics Name Role Phone Noe Mccann MD Unavailable Unavailable Audra Gutierrez MD Unavailable Edouard Mosley MD Unavailable Nara Tejada MD Unavailable Jose Thomas MD Unavailable [phone] Trish Hammonds MD Unavailable Celina He DPEvelin Unavailable Elizabeth Goode MD Unavailable Griselda Bello PRODUCT SAFETY ASSOCIATE Primary Care Provider [phone] Encounter Details Date Type Department Care Team (Late st Contact Info) Description 03/11/2025 Procedure Pass [facility], [facility] [address] [place] [address] Social History Tobacco Use Types Packs/Day Years [...] as food, clothing, or medical care? No 03/10/2025 In the past 12 months have y ou been in a relationship with a person who hurts, threatens, or tries to control you? No 03/10/2025 Are you denied basic needs s uch as food, clothing, or medical care? No 03/10/2025 In the past 12 months have y ou been in a relationship with a person who hurts, threatens, or tries to control you? 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 documented as of this encounter Plan of Treatment Upcoming Encounters Date Type Department Care Team ([facility] st Contact Info) Description 04/28/2025 2:00 PM EST Office Visit [facility] [address] 3rd [facility], [address] [place] [address] Minda Nelson DNP [address] [place] [address] [email or web address] 07/29/2025 1:00 PM EST Office Visit [address] 3rd [facility], [address] [address] Minda Nelson DNP [address] [place] [address] 08/31/2025 11:50 AM EDT Office Visit [facility] [address] [place] [address] Audra Gutierrez MD [address] [place] [address] documented as of this encounter Visit Diagnoses [...] documented as of this encounter Care Teams Supervisor Instrument Mechanics Relationship Specialty Start Date End Date Ace Griselda GAEL Cancino [address] [place] [address] PCP - General Nurse Practitioner 01/26/25 Noe Mccann MD Ophthalmology 02/11/19 Audra Gutierrez MD [address] [place] [address] [email or web address] Intensive Care 02/11/19 Edouard Mosley MD [address] [place] [address] [email or web address] Plastic and Reconstructive Surgery 02/11/19 Nara Tejada MD [address] [place] [address], 3 [place] [address] [email or web address] Consulting Provider Nephrology 02/11/19 Jose Thomas MD [address] [place] [address] [email or web address] Consulting Provider Infectious Diseases 02/11/19 Trish Hammonds MD [address] [place] [address], [address] [place] [address] Rheumatology 02/11/19 Celina He DPM [address] [facility], [address] [place] [address] [email or web address] Podiatry 02/11/19 Elizabeth Goode MD [address] [place] [address] Psychologist 03/27/20 documented as of this encounter Additional Source Comments The information contained in this document represents components of the legal health record. It is not the complete legal health record.[facility]
--- OUTSIDE RECORDS SUMMARY | 2025-04-16 20:57 | XMS_ITS | Encounter Summary ---
Author Organization [facility] Address [address] [facility] [address] [place] [address] Phone Care Team Providers Care Perinatal Nurse Name Role Phone Noe Mccann MD Unavailable Unavailable Audra Gutierrez MD Unavailable Edouard Mosley MD Unavailable Nara Tejada MD Unavailable Jose Thomas MD Unavailable [phone] Trish Hammonds MD Unavailable Celina He DPM Unavailable [phone] Elizabeth Goode MD Unavailable [phone] Griselda Bello UNIFIED COMMUNICATIONS ARCHITECT Primary Care Provider [phone] Encounter Details Date Type Department Care Team (Late st Contact Info) Description 03/21/2025 Procedure Pass [facility] [place], Josh [address] [facility], 2nd Floor, [address] [place] [address] Social History Tobacco Use Types Packs/Day Years [...] 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 documented as of this encounter Plan of Treatment Upcoming Encounters Date Type Department Care Team ([facility] Contact Info) Description 04/28/2025 2:00 PM EST Office Visit [facility] [address] [place] [address], [address] [place] [address] Minda Nelson DNP [address] [place] [address] [email or web address] 07/29/2025 1:00 PM EST Office Visit [facility] [address] 3rd [facility], [address] [place] [address] Minda Nelson DNP [address] [place] [address] 08/31/2025 11:50 AM EDT Office Visit [facility] [address] [place] [address] Audra Gutierrez MD [address] [place] [address] documented as of this encounter Visit Diagnoses [...] documented as of this encounter Care Teams Perinatal Nurse Relationship Specialty Start Date End Date Griselda Bello NP [address] [place] [address] PCP - General Nurse Practitioner 01/26/25 Noe Mccann MD Ophthalmology 02/11/19 Audra Gutierrez MD [address] [place] [address] [email or web address] Intensive Care 02/11/19 Edouard Mosley MD [address] [place] [address] [email or web address] Plastic and Reconstructive Surgery 02/11/19 Nara Tejada MD [address] [place] [address], 3 [place] [address] [email or web address] Consulting Provider Nephrology 02/11/19 Jose Thomas MD [address] [place] [address] [email or web address] Consulting Provider Infectious Diseases 02/11/19 Trish Hammonds MD [address] [place] [address], [address] [place] [address] Rheumatology 02/11/19 Celina He DPM [address] [facility], [address] [place] [address] [email or web address] Podiatry 02/11/19 Elizabeth Goode MD [address] [place] [address] Psychologist 03/27/20 documented as of this encounter Additional Source Comments The information contained in this document represents components of the legal health record. It is not the complete legal health record.[facility]
--- OUTSIDE RECORDS SUMMARY | 2025-04-16 20:57 | XMS_ITS | Encounter Summary ---
Author Organization [facility] Address [address] [facility] [address] [place] [address] Phone Care Team Providers Care Agriculture Engineer Name Role Phone Noe Mccann MD Unavailable Unavailable Audra Gutierrez MD Unavailable [phone] Edouard Mosley MD Unavailable Nara Tejada MD Unavailable Jose Thomas MD Unavailable [phone] Trish Hammonds MD Unavailable Celina He DPM Unavailable [phone] Elizabeth Goode MD Unavailable [phone] Griselda Bello BULK TANK DRIVER Primary Care Provider [phone] Encounter Details Date Type Department Care Team (Late st Contact Info) Description 03/21/2025 Procedure Pass [facility] [place], Josh 2 [address] [facility], 2nd Floor, [address] [place] [address] Social History Tobacco Use Types Packs/Day Years [...] 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 documented as of this encounter Plan of Treatment Upcoming Encounters Date Type Department Care Team ([facility] Contact Info) Description 04/28/2025 2:00 PM EST Office Visit [facility] [address] [place] [address], [address] [place] [address] Minda Nelson DNP [address] [place] [address] 07/29/2025 1:00 PM EST Office Visit [facility] [address] 3rd [facility], [address] [place] [address] Minda Nelson DNP [address] [place] [address] 08/31/2025 11:50 AM EDT Office Visit [facility] [address] [place] [address] Audra Gutierrez MD [address] [place] [address] documented as of this encounter Visit Diagnoses [...] documented as of this encounter Care Teams Agriculture Engineer Relationship Specialty Start Date End Date Griselda Bello NP [address] [place] [address] PCP - General Nurse Practitioner 01/26/25 Noe Mccann MD Ophthalmology 02/11/19 Audra Gutierrez MD [address] [place] [address] [email or web address] Intensive Care 02/11/19 Edouard Mosley MD [address] [place] [address] [email or web address] Plastic and Reconstructive Surgery 02/11/19 Nara eTjada MD [address] [place] [address], 3 [place] [address] [email or web address] Consulting Provider Nephrology 02/11/19 Jose Thomas MD [address] [place] [address] [email or web address] Consulting Provider Infectious Diseases 02/11/19 Trish Hammonds MD [address] [place] [address], [address] [place] [address] Rheumatology 02/11/19 Celina He DPM [address] [facility], [address] [place] [address] [email or web address] Podiatry 02/11/19 Elizabeth Goode MD [address] [place] [address] Psychologist 03/27/20 documented as of this encounter Additional Source Comments The information contained in this document represents components of the legal health record. It is not the complete legal health record.[facility]
--- OUTSIDE RECORDS SUMMARY | 2025-04-16 20:57 | XMS_ITS | Encounter Summary ---
Author Organization [facility] Address [address] [facility] [address] [place] [address] Phone Care Team Providers Care Reducer Name Role Phone Noe Mccann MD Unavailable Unavailable Audra Gutierrez MD Unavailable Edouard Mosley MD Unavailable Nara Tejada MD Unavailable [phone] Joes Thomas MD Unavailable [phone] Trish Hammonds MD Unavailable Celina He DPEvelin Unavailable Elizabeth Goode MD Unavailable Griselda Bello COMPLIANCE ATTORNEY Primary Care Provider [phone] Encounter Details Date Type Department Care Team (Late st Contact Info) Description 03/17/2025 Procedure Pass [facility], Ct Scan [facility] [address] [place] [address] Social History Tobacco Use Types Packs/Day Years [...] 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 documented as of this encounter Functional Status * Calculated C-SSRS Risk Score (Lifetime/Recent) Answer Date of Assessment Author No Risk Indicated 03/17/2025 11:00 PM EDT Jillian Stern RN * [place] Suicide Severity Rating Scale (Screener/Recent Self-Report) Question [...] Description 04/28/2025 2:00 PM EST Office Visit [facility] [address] [facility], [address] [place] [address] Minda Nelson DNP [address] [place] [address] 07/29/2025 1:00 PM EST Office Visit [facility] [address] 3rd Floor, [address] [place] [address] Minda Nelson DNP [address] [place] [address] 08/31/2025 11:50 AM EDT Office Visit [facility] [address] [place] [address] Audra Gutierrez MD [address] [address] [email or web address] documented as of this encounter Visit Diagnoses [...] documented as of this encounter Care Teams Reducer Relationship Specialty Start Date End Date Griselda Bello NP [address] [place] [address] PCP - General Nurse Practitioner 01/26/25 Noe Mccann MD Ophthalmology 02/11/19 Audra Gutierrez MD [address] [place] [address] [email or web address] Intensive Care 02/11/19 Edouard Mosley MD [address] [place] [address], [address] [place] [address] [email or web address] Plastic and Reconstructive Surgery 02/11/19 Nara Tejada MD [address] [place] [address], [address] [place] [address] Consulting Provider Nephrology 02/11/19 Jose Thomas MD [address] [place] [address] [email or web address] [email or web address] Provider Infectious Diseases 02/11/19 Trish Hammonds MD [address] [place] [address], [address] [place] [address] [address] Rheumatology 02/11/19 Celina He DPM [address] [place] [address], [address] [place] [address] [address] Podiatry 02/11/19 Elizabeth Goode MD [address] [facility] [address] [place] [address] Psychologist 03/27/20 documented as of this encounter Additional Source Comments The information contained in this document represents components of the legal health record. It is not the complete legal health record.[facility]
--- OUTSIDE RECORDS SUMMARY | 2025-04-16 20:57 | XMS_ITS | Encounter Summary ---
Author Organization [facility] Address [address] [facility] [address] [place] [address] Phone Care Team Providers Care Mobile Ui Designer Name Role Phone Noe Mccann MD Unavailable Unavailable Audra Gutierrez MD Unavailable [phone] Edouard Mosley MD Unavailable Nara Tejada MD Unavailable Jose Thomas MD Unavailable [phone] Trish Hammonds MD Unavailable [phone] Celina He DPEvelin Unavailable Elizabeth Goode MD Unavailable [phone] Martin Green MD Primary Care Provider [phone] Griselda Bello NP Primary Care Provider [phone] Encounter Details Date Type Department Care Team (Late st Contact Info) Description 12/26/[address] [facility] [address] [place] [address] Social History Tobacco Use Types Packs/Day Years [...] as food, clothing, or medical care? No 06/05/2023 In the past 12 months have y ou been in a relationship with a person who hurts, threatens, or tries to control you? No 06/05/2023 Are you denied basic needs s uch as food, clothing, or medical care? No 06/05/2023 In the past 12 months have y ou been in a relationship with a person who hurts, threatens, or tries to control you? 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 documented as of this encounter Plan of Treatment Upcoming Encounters Date Type Department Care Team (Late st Contact Info) Description 04/28/2025 2:00 PM EST Office Visit [facility] [address] [place] [address] 3rd Floor, [address] [place] [address] Minda Nelson, ESTRELLITA [address] [facility], [address] [place] [address] 07/29/2025 1:00 PM EST Office Visit [facility] [address] [facility] 3rd Floor, [address] [place] [address] Minda Nelson, ESTRELLITA [address] [facility], [address] [place] [address] 08/31/2025 11:50 AM EDT Office Visit [facility] 10 [place] [address] Audra Gutierrez MD [address] [place] [address] 2nd [place] [address] [email or web address] documented as of this encounter Visit Diagnoses [...] documented as of this encounter Care Teams Mobile Ui Designer Relationship Specialty Start Date End Date Martin Green MD [address] [place] [phone] [email or web address] PCP - General Internal Medicine 05/26/23 01/25/25 Griselda Bello NP [address] [place] [address] PCP - General Nurse Practitioner 01/26/25 Noe Mccann MD Ophthalmology 02/11/19 Audra Gutierrez MD [address] [place] [address] 2nd [place] [address] [email or web address] Intensive Care 02/11/19 Edouard Mosley MD [address] [place] [address] [email or web address] Plastic and Reconstructive Surgery 02/11/19 Nara Tejada MD [address] [place] [address], 3 [place] [address] [email or web address] Consulting Provider Nephrology 02/11/19 Jose Thomas MD [address] [place] [address] [email or web address] Consulting Provider Infectious Diseases 02/11/19 Trish Hammonds MD [address] [place] [address], [address] [address] [email or web address] Rheumatology 02/11/19 Celina He DPM [address] [place] [address], [address] [address] Podiatry 02/11/19 Elizabeth Godoe MD [address] [facility] 200 [place] [address] Psychologist 03/27/20 documented as of this encounter Additional Source Comments The information contained in this document represents components of the legal health record. It is not the complete legal health record.[facility]
--- OUTSIDE RECORDS SUMMARY | 2025-04-16 20:57 | XMS_ITS | Encounter Summary ---
Author Organization [facility] Address [address] [place] [address] Care Team Providers Care Family Preservation Caseworker Name Role Phone Martin Green Primary Care Provider [phone] Encounter Details Date Type Department Care Team (Late st Contact Info) Description 08/27/2024 [employer] Message [facility] Financial Clearance Department [address] [place] [address] MycharNight Zookeeper, Generic Provider [facility] [place] [id number] No Auth required Social History Tobacco Use Types Packs/Day Years [...] Description 08/25/2025 2:00 PM EDT Office Visit [facility] [address] [place] [address] Language Translator: Kenneth Walsh MD PhD [address] [place] [address] documented as of this encounter Visit Diagnoses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documented in this encounter Care Teams Family Preservation Caseworker Relationship Specialty Start Date End Date Martin Green [address] [place] [phone] PCP - General Internal Medicine 10/08/18 documented as of this encounter
--- OUTSIDE RECORDS SUMMARY | 2025-04-16 20:57 | XMS_ITS | Encounter Summary ---
Author Organization [facility] Address [address] [place] [address] [address] [place] [address] Phone Care Team Providers Care Affirmative Action Specialist Name Role Phone Noe Mccann MD Unavailable Unavailable Audra Gutierrez MD Unavailable Edouard Mosley MD Unavailable Nara Tejada MD Unavailable [phone] Jose Thomas MD Unavailable [phone] Trish Hammonds MD Unavailable Celina He DPM Unavailable [phone] Elizabeth Goode MD Unavailable [phone] Martin Green MD Primary Care Provider [phone] Griselda Bello NP Primary Care Provider Encounter Details Date Type Department Care Team (Late st Contact Info) Description 07/26/2024 Procedure Pass [facility]oscopy Admitting Dept Virtual Department [address] [place], [place] [phone] Social History Tobacco Use Types Packs/Day Years Used Date Smoking Tobacco: Former Cigarettes 2 45 1 966 - 2010 Passive Smoke Exposure: Past Smokeless Tobacco: Never Alcohol Use Standard Drinks/Week Comments No 0 (1 standard drink = 0.6 oz pur e alcohol) Home Health Assessment: Transportation Answer Date Recorded Lack of Transportation (Medical) No 07/30/2024 Lack of Transportation (Non-Medical) No 07/30/2024 Patient Unable or Declines to Respond No 07/30/2024 Education Answer Date Recorded Are you interested [...] 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 documented as of this encounter Plan of Treatment Upcoming Encounters Date Type Department Care Team (Late st Contact Info) Description 04/28/2025 2:00 PM EST Office Visit [facility] [address] [place] [address] 3rd Floor, [address] [place] [address] Minda Nelson, ESTRELLITA [address] [facility], [address] [place] [address] 07/29/2025 1:00 PM EST Office Visit [facility] [address] [place] [address] 3rd Floor, [address] [place] [address] Minda Nelson, ESTRELLITA [address] [facility], [address] [place] [address] 08/31/2025 11:50 AM EDT Office Visit [facility] [address] [facility] [place] [address] Audra Gutierrez MD 10 [facility] 2nd [place] [address] [email or web address] documented as of this encounter Visit Diagnoses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documented in this encounter Additional Health Concerns Infection Onset Date Last Indicated Resolved Time CoV-Risk 01/30/2025 01/30/2025 02/10/2025 1:21 AM EDT CDiff-Risk 03/21/2025 03/21/2025 03/22/2025 9:01 AM EDT CDiff-Risk 03/26/2025 03/26/2025 03/27/2025 8:59 AM EDT CDiff-Risk 04/10/2025 04/10/2025 04/10/2025 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 Assessment Noted Time PHQ-9 Depression Total Score: 20 021 1:11 PM EDT PHQ-2 Depression Total Score: 6 01/16/20 21 1:11 PM EDT documented as of this encounter Care Teams Affirmative Action Specialist Relationship Specialty Start Date End Date Martin Green MD [address] [place] [phone] [email or web address] PCP - General Internal Medicine 05/26/23 01/25/25 Griselda Bello NP [address] [place] [address] PCP - General Nurse Practitioner 01/26/25 Noe Mccann MD Ophthalmology 02/11/19 Audra Gutierrez MD [address] [place] [address] 2nd [place] [address] [email or web address] Intensive Care 02/11/19 Edouard Mosley MD [address] [place] [address], [address] [place] [address] [email or web address] Plastic and Reconstructive Surgery 02/11/19 Nara Tejada MD [address] [place] [address], [address] [place] [address] [email or web address] Consulting Provider Nephrology 02/11/19 Jose Thomas MD [address] [place] [address] [email or web address] Consulting Provider Infectious Diseases 02/11/19 Trish Hammonds MD [address] [place] [address], [facility] [address] [place] [address] [email or web address] Rheumatology 02/11/19 Celina He DPM 22 [facility], [address] [address] [email or web address] Podiatry 02/11/19 Elizabeth Goode MD [address] [place] [address] Psychologist 03/27/20 documented as of this encounter Additional Source Comments The information contained in this document represents components of the legal health record. It is not the complete legal health record.[facility]
--- OUTSIDE RECORDS SUMMARY | 2025-04-16 20:57 | XMS_ITS | Encounter Summary ---
Author Organization [facility] Address [address] [facility] [address] [place] [address] Phone Care Team Providers Care Stain Remover Name Role Phone Martin Bales MD Unavailable Jose Gallagher MD Unavailable [phone] Ramiro Schmidt MD Unavailable Enio Starkey MD Unavailable [phone] Kenneth Carter MD Unavailable [phone] Noe Mccann MD Unavailable Unavailable Audra Gutierrez MD Unavailable Edouard Mosley MD Unavailable Martin Green MD Primary Care Provider Nara Tejada MD Unavailable [phone] Jose Thomas MD Unavailable [phone] Trish Hammonds MD Unavailable Celina He DPM Unavailable Elizabeth Goode MD Unavailable [phone] Martin Green MD Primary Care Provider [phone] Martin Green MD Primary Care Provider [phone] Griselda Bello NP Primary Care Provider [phone] Encounter Details Date Type Department Care Team (Late Contact Info) Description 03/23/2020 Procedure Pass [facility] Endoscopy Admitting Dept [facility] Department [address] [place] [address] Social History Tobacco Use Types Packs/Day Years [...] 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 documented as of this encounter Plan of Treatment Upcoming Encounters Date Type Department Care Team (Late Contact Info) Description 04/28/2025 2:00 PM EST Office Visit [facility] [address] 3rd [facility], [address] [address] Minda Nelson DNP [address] [place] [address] 07/29/2025 1:00 PM EST Office Visit [facility] [address] 3rd Floor, [address] [place] [address] Minda Nelson DNP [address] [place] [address] 08/31/2025 11:50 AM EDT Office Visit [facility] Pulmonary[facility] Allergy [facility] Critical [facility] Medicine [address] [place] [address] Audra Gutierrez MD [address] [place] [address] 2nd [place] [address] 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 PCP - General Internal Medicine 02/11/19 04/11/20 Martin Green MD [address] [facility], [address] [place] [address] [email or web address] PCP - General Internal Medicine 04/12/20 05/25/23 Martin Green MD [address] [place] [phone] [email or web address] PCP - General Internal Medicine 05/26/23 01/25/25 Griselda Bello NP [address] [place] [address] PCP - General Nurse Practitioner 01/26/25 Martin Bales MD [address] [place] [address] [email or web address] Gastroenterology 10/07/18 11/13/20 Jose Gallagher MD [address] [place] [address], [address] [address] [email or web address] Urology 10/07/18 11/13/20 Ramiro Schmidt MD [address] [place] [address], [address] [address] [email or web address] Endocrinology 02/11/19 11/13/20 Enio Starkey MD [address] [place] [address], [address] [place] [address] [email or web address] Cardiology 02/11/19 11/13/20 Kenneth Carter MD [address] [place] [address] Neurology 02/11/19 11/13/20 Noe Mccann MD Ophthalmology 02/11/19 Audra Gutierrez MD [address] [place] [address] 2nd [place] [address] [email or web address] Intensive Care 02/11/19 Edouard Mosley MD [address] [place] [address], [address] [place] [address] [email or web address] Plastic and Reconstructive Surgery 02/11/19 Nara Tejada MD [address] [place] [address], [address] [place] [address] [email or web address] Consulting Provider Nephrology 02/11/19 Jose Thomas MD [address] [place] [address] [email or web address] Consulting Provider Infectious Diseases 02/11/19 Trish Hammonds MD [address] [place] [address] [email or web address] Rheumatology 02/11/19 Celina He DPM [address] [place] [address] [email or web address] Podiatry 02/11/19 Elizabeth Goode MD [address] [place] [address] [place] [address] Psychologist 03/27/20 documented as of this encounter Additional Source Comments The information contained in this document represents components of the legal health record. It is not the complete legal health record.[facility]
--- OUTSIDE RECORDS SUMMARY | 2025-04-16 20:57 | XMS_ITS | Encounter Summary ---
Author Organization [facility] Address [address] [facility] [address] [place] [address] Phone Care Team Providers Care Capacity Manager Name Role Phone Olvin Harvey MD Primary Care Provide r Olvin Harvey MD Unavailable [phone] Chelsy MclaughlinW Unavailable [email or web address] Ema Dumas DO Primary Care Provider Krissy Hernandez Primary Care Pro vider Martin Green MD Primary Care Provider [phone] Martin Bales MD Unavailable Jose Gallagher MD Unavailable Ramiro Schmidt MD Unavailable Enio Starkey MD Unavailable [phone] Kenneth Carter MD Unavailable Noe Mccann MD Unavailable Unavailable Audra Gutierrez MD Unavailable [phone] Edouard Mosley MD Unavailable Martin Green MD Primary Care Provider + Nara Tejada MD Unavailable [phone] Jose Thomas MD Unavailable + [phone] Trish Hammonds MD Unavailable [phone] PayamJoan [email or web address] Lima DPEvelin Unavailable [phone] Olvin Harvey MD Unavailable [phone] Fabián Seaman MD Unavailable +[phone] Elizabeth Goode MD Unavailable [phone] Martin Green MD Primary Care Provider + Martin Green MD Primary Care Provider [phone] Griselda Bello NP Primary Care Provider [phone] Encounter Details Date Type Department Care Team (Late st Contact Info) Description 04/23/2017 Procedure Pass [facility], [address] [address] Social History Tobacco Use Types Packs/Day Years Used Date Smoking Tobacco: Former Cigarettes Q uit: 2011 Smokeless Tobacco: Never Comments Unknown Sex and Gender Information Value Date Recorded Sex Assigned at Female 10/17/2017 8:32 PM EDT Legal Sex Female 12:39 PM EDT Gender Identity Female 10/17/2017 8:32 PM EDT Sexual Orientation Straight 06/30/2020 5: 59 PM EST documented as of this encounter Last Filed Vital Signs Vital Sign Reading Time Taken Comments Blood Pressure - - Pulse - - Temperature - - Respiratory Rate - - Oxygen Saturation - - Inhaled Oxygen Concentration - - Weight 76.9 kg (169 lb 8.5 oz) 04/24/2017 1:39 P M EST Height 160 cm (5' 2.99 ) 04/24/2017 1:39 PM EST Body Mass Index 30.04 04/24/2017 1:39 PM EST documented in this encounter Plan of Treatment Upcoming Encounters Date Type Department Care Team (Late st Contact Info) Description 04/28/2025 2:00 PM EST Office Visit [facility] [address] 3rd Floor, [address] [place] [address] Minda Nelson DNP [address] [facility], [address] [address] 07/29/2025 1:00 PM EST Office Visit [facility] [address] Floor, [address] [place] [address] Minda Nelson DNP [address] [facility], [address] [address] 08/31/2025 11:50 AM EDT Office Visit [facility] Allergy [facility] Medicine [address] [place] [address] Audra Gutierrez MD [address] [place] [address] documented as of this encounter Visit Diagnoses [...] documented as of this encounter Care Teams Capacity Manager Relationship Specialty Start Date End Date Olvin Harvey MD [address] [address] [email or web address] PCP - General 12/07/13 06/11/18 Ema Kaufman DO [address] [place] [address] [email or web address] PCP - General 06/12/18 09/22/18 Krissy Hernandez PA [address] [place] [address] [email or web address] PCP - General Internal Medicine 09/23/18 10/04/18 Martin Green MD [address] [place] [address] [email or web address] PCP - General Internal Medicine 10/05/18 02/10/19 Martin Green MD [address] [place] [address] [email or web address] PCP - General Internal Medicine 02/11/19 04/11/20 Martin Green MD [address] [place] [address] [email or web address] PCP - General Internal Medicine 04/12/20 05/25/23 Martin Green MD [address] [place] [phone] [email or web address] PCP - General Internal Medicine 05/26/23 01/25/25 Griselda Bello NP [address] [place] [address] PCP - General Nurse Practitioner 01/26/25 Olvin Harvey MD [address] [address] [email or web address] Insurance Assigned Provider 04/12/17 02/10/19 Chelsy Mclaughlin [facility] [address] [address] [email or web address] Project Coordinator 08/08/17 07/05/18 Martin Bales MD [address] [place] [address] [email or web address] Gastroenterology 10/07/18 11/13/20 Jose Gallagher MD [address] [place] [address], [address] [address] [email or web address] Urology 10/07/18 11/13/20 Ramiro Schmidt MD [address] [place] [address], [address] [place] [address] [email or web address] Endocrinology 02/11/19 11/13/20 Enio Starkey MD [address] [place] [address], [address] [place] [address] [email or web address] Cardiology 02/11/19 11/13/20 Kenneth Carter MD [address] [place] [address] Neurology 02/11/19 11/13/20 Noe Mccann MD Ophthalmology 02/11/19 Audra Gutierrez MD [address] [place] [address] 2nd [place] [address] [email or web address] Intensive Care 02/11/19 Edouard Mosley MD [address] [place] [address], [address] [place] [address] [email or web address] Plastic and Reconstructive Surgery 02/11/19 Nara Tejada MD [address] [place] [address], [address] [place] [address] [email or web address] Consulting Provider Nephrology 02/11/19 Jose Thomas MD [address] [place] [address] [email or web address] Consulting Provider Infectious Diseases 02/11/19 Trish Hammonds MD [address] [place] [address], [address] [place] [address] Rheumatology 02/11/19 Celina He DPM [address] [facility], [address] [place] [address] Podiatry 02/11/19 Olvin Harvey MD [address] [facility] Floor 1 [place] [address] [email or web address] Insurance Assigned Provider 04/12/17 03/06/19 Fabián Seaman MD [address] [facility], [address] [place] [address] [email or web address] Insurance Assigned Provider 03/06/19 07/09/19 Elizabeth Goode MD [address] [place] [address] Psychologist 03/27/20 documented as of this encounter Additional Source Comments The information contained in this document represents components of the legal health record. It is not the complete legal health record.[facility]
--- OUTSIDE RECORDS SUMMARY | 2025-04-16 20:57 | XMS_ITS | Encounter Summary ---
Author Organization [facility], Address [address] [place] [address] Phone Care Team Providers Care Decaler Name Role Phone Martin Green MD Primary Care Provider [phone] Encounter Details Date Type Department Care Team (Late st Contact Info) Description 10/17/2022 Documentation Only [facility], - Raffaele [address] [place] [phone] Martin Geren MD [address] [place] [address] Social History Tobacco Use Types Packs/Day Years [...] as of this encounter Plan of Treatment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 documented as of this encounter Visit Diagnoses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documented in this encounter Care Teams Decaler Relationship Specialty Start Date End Date Martin Green MD [address] [place] [phone] PCP - General 04/13/19 documented as of this encounter
--- OUTSIDE RECORDS SUMMARY | 2025-04-16 20:57 | XMS_ITS | Encounter Summary ---
Author Organization [facility] Address [address] [facility] [address] [place] [address] Phone Care Team Providers Care Paperback Machine Operator Name Role Phone Noe Mccann MD Unavailable Unavailable Audra Gutierrez MD Unavailable Edouard Mosley MD Unavailable Nara Tejada MD Unavailable [phone] Jose Thomas MD Unavailable [phone] Trish Hammonds MD Unavailable Celina He DPM Unavailable Elizabeth Goode MD Unavailable [phone] Griselda Bello ACCOUNTING MANAGER CPA Primary Care Provider [phone] Encounter Details Date Type Department Care Team (Late st Contact Info) Description 03/17/2025 Procedure Pass [facility] [place], Josh [address] [facility], 2nd Floor, [address] [place] [address] Social History Tobacco Use Types Packs/Day Years [...] 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 documented as of this encounter Functional Status * Calculated C-SSRS Risk Score (Lifetime/Recent) Answer Date of Assessment Author No Risk Indicated 03/17/2025 11:00 PM EDT Jillian Stern RN * Crawford Suicide Severity Rating Scale (Screener/Recent Self-Report) Question [...] Description 04/28/2025 2:00 PM EST Office Visit [facility] [address] [place] [address] [place] [address], [address] [address] Minda Nelson DNP [address] [place] [address] 07/29/2025 1:00 PM EST Office Visit [facility] [address] 3rd Floor, [address] [place] [address] Minda Nelson DNP [address] [place] [address] 08/31/2025 11:50 AM EDT Office Visit [facility], Allergy [facility] Critical [facility] Medicine [address] [facility] [place] [address] [place] [address] Audra Gutierrez MD [address] [address] [email or web address] documented as of this encounter Visit Diagnoses [...] documented as of this encounter Care Teams Paperback Machine Operator Relationship Specialty Start Date End Date Griselda Bello NP [address] [place] [address] PCP - General Nurse Practitioner 01/26/25 Noe Mccann MD Ophthalmology 02/11/19 Audra Gutierrez MD [address] [place] [address] [email or web address] Intensive Care 02/11/19 Edouard Mosley MD [address] [place] [address], [address] [place] [address] [email or web address] Plastic and Reconstructive Surgery 02/11/19 Nara Tejada MD [address] [place] [address], [address] [place] [address] [email or web address] Consulting Provider Nephrology 02/11/19 Jose Thomas MD [address] [place] [address] [email or web address] Consulting Provider Infectious Diseases 02/11/19 Trish Hammonds MD [address] [facility], [address] [place] [address] [address] [email or web address] Rheumatology 02/11/19 Celina He DPM [address] [facility], [address] [place] [address] [address] Podiatry 02/11/19 Elizabeth Goode MD [address] [place] [address] Psychologist 03/27/20 documented as of this encounter Additional Source Comments The information contained in this document represents components of the legal health record. It is not the complete legal health record.[facility]
--- OUTSIDE RECORDS SUMMARY | 2025-04-16 20:57 | XMS_ITS | Encounter Summary ---
Author Organization [facility] Address [address] [facility] [address] [place] [address] Phone Care Team Providers Care Family Sociologist Name Role Phone Martin Bales MD Unavailable Jose Gallagher MD Unavailable [phone] Ramiro Schmidt MD Unavailable Enio Starkey MD Unavailable [phone] Kenneth Carter MD Unavailable Noe Mccann MD Unavailable Unavailable Audra Gutierrez MD Unavailable [phone] Edouard Mosley MD Unavailable Martin Green MD Primary Care Provider Nara Tejada MD Unavailable Jose Thomas MD Unavailable [phone] Trish Hammonds MD Unavailable [phone] Celina He DPM Unavailable [phone] Elizabeth Goode MD Unavailable [phone] Martin Green MD Primary Care Provider [phone] Martin Green MD Primary Care Provider +- Griselda Bello NP Primary Care Provider + [phone] Encounter Details Date Type Department Care Team (Late Contact Info) Description 12/17/2019 Transcribe Orders Virtual Department [address] [place] [address] Estella Griggs PA [address] [place] [phone] [email or web address] Sore throat (Primary Dx); Shortness of breath Social History Tobacco Use Types Packs/Day Years [...] 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 documented as of this encounter Plan of Treatment Upcoming Encounters Date Type Department Care Team (Late Contact Info) Description 04/28/2025 2:00 PM EST Office Visit [facility] [address] [place] [address] [place] [address], [address] [address] Minda Nelson DNP [address] [place] [address] 07/29/2025 1:00 PM EST Office Visit [facility] [address] [place] [address] 3rd Floor, [address] [address] Minda Nelson DNP [address] [place] [address] 08/31/2025 11:50 AM EDT Office Visit [facility], Allergy and Critical Care Medicine [address] [facility] [place] [address] Audra Gutierrez MD 10 [facility] 2nd [place] [address] [email or web address] documented as of this encounter Results * COVID-19 PCR Order (12/20/2019 9:42 AM EDT) Specimen Source NASOPHARYNGEAL SWAB (PIE BOTTOMER) [facility] COVID Testing Status Sent to [facility] Other 12/20/2019 9:42 AM EDT 12/20/2019 11:28 AM EDT us Estella [facility] GENERAL ORDERABLES Final R esult Performing Organization Address City/State/[facility] Co de Phone Number [address] [address] documented in this encounter Visit Diagnoses Diagnosis Sore throat- Primary Acute pharyngitis Shortness of breath documented in this encounter Additional Health Concerns [...] documented as of this encounter Care Teams Family Sociologist Relationship Specialty Start Date End Date Martin Green MD [address] [place] [address] [email or web address] PCP - General Internal Medicine 02/11/19 04/11/20 Martin Green MD [address] [place] [address] [email or web address] PCP - General Internal Medicine 04/12/20 05/25/23 Martin Green MD [address] [place] [phone] [email or web address] PCP - General Internal Medicine 05/26/23 01/25/25 Griselda Bello NP [address] [place] [address] PCP - General Nurse Practitioner 01/26/25 Martin Bales MD [address] [place] [address] [email or web address] Gastroenterology 10/07/18 11/13/20 Jose Gallagher MD [address] [place] [address], [address] [place] [address] [email or web address] Urology 10/07/18 11/13/20 Ramiro Schmidt MD [address] [place] [address], [address] [place] [address] [email or web address] Endocrinology 02/11/19 11/13/20 Enio Starkey MD [address] [place] [address], [address] [place] [address] [email or web address] Cardiology 02/11/19 11/13/20 Kenneth Carter MD [address] [place] [address] Neurology 02/11/19 11/13/20 Noe Mccann MD Ophthalmology 02/11/19 Audra Gutierrez MD [address] [place] [address] 2nd [place] [address] [email or web address] Intensive Care 02/11/19 Edouard Mosley MD [address] [place] [address], [address] [place] [address] [email or web address] Plastic and Reconstructive Surgery 02/11/19 Nara Tejada MD [address] [place] [address], [address] [place] [address] Consulting Provider Nephrology 02/11/19 Jose Thomas MD [address] [place] [address] [email or web address] Consulting Provider Infectious Diseases 02/11/19 Trish Hammonds MD [address] [facility], [address] [address] Rheumatology 02/11/19 Celina He DPM [address] [facility], [address] [address] [email or web address] Podiatry 02/11/19 Elizabeth Goode MD [address] [place] [address] Psychologist 03/27/20 documented as of this encounter Additional Source Comments The information contained in this document represents components of the legal health record. It is not the complete legal health record.[facility]
--- OUTSIDE RECORDS SUMMARY | 2025-04-16 20:57 | XMS_ITS | Encounter Summary ---
Author Organization [facility] Address [address] [facility] [address] [place] [address] Phone Care Team Providers Care Case Hardener Name Role Phone Martin Bales MD Unavailable Jose Gallagher MD Unavailable [phone] Ramiro Schmidt MD Unavailable Enio Starkey MD Unavailable [phone] Kenneth Carter MD Unavailable Noe Mccann MD Unavailable Unavailable Audra Gutierrez MD Unavailable Edouard Mosley MD Unavailable Martin Green MD Primary Care Provider Nara Tejada MD Unavailable Jose Thomas MD Unavailable [phone] Trish Hammonds MD Unavailable [phone] Celina He DPM Unavailable [phone] Elizabeth Goode MD Unavailable Martin Green MD Primary Care Provider [phone] Martin Green MD Primary Care Provider +[phone] Griselda Bello NP Primary Care Provider [phone]- [phone] Encounter Details Date Type Department Care Team (Late Contact Info) Description 03/26/2020 Procedure Pass [facility], Ct Scan - [address] [address] Social History Tobacco Use Types Packs/Day Years [...] 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 documented as of this encounter Plan of Treatment Upcoming Encounters Date Type Department Care Team (Late Contact Info) Description 04/28/2025 2:00 PM EST Office Visit [facility] [address] 3rd [facility], [address] [place] [address] Minda Nelson DNP [address] [place] [address] 07/29/2025 1:00 PM EST Office Visit [facility] [address] 3rd Floor, [address] [place] [address] Minda Nelsno DNP [address] [place] [address], [address] [address] 08/31/2025 11:50 AM EDT Office Visit [facility], All[facility] [address] [place] [address] [place] [address] Audra Gutierrez MD [address] [place] [address] 2nd [place] [address] [email or web address] documented as of this encounter Visit Diagnoses [...] documented as of this encounter Care Teams Case Hardener Relationship Specialty Start Date End Date Martin Green MD [address] [place] [address], [address] [place] [address] [email or web address] PCP - General Internal Medicine 02/11/19 04/11/20 Martin Green MD [address] [facility], [address] [place] [address] [email or web address] PCP - General Internal Medicine 04/12/20 05/25/23 Martin Green MD [address] [place] [phone] [email or web address] PCP - General Internal Medicine 05/26/23 01/25/25 Griselda Bello NP [address] [place] [address] PCP - General Nurse Practitioner 01/26/25 Martin Bales MD [address] [place] [address] [email or web address] Gastroenterology 10/07/18 11/13/20 Jose Gallagher MD [address] [place] [address], [address] [address] [email or web address] Urology 10/07/18 11/13/20 Ramiro Schmidt MD [address] [place] [address], [address] [place] [address] [email or web address] Endocrinology 02/11/19 11/13/20 Enio Starkey MD [address] [place] [address], [address] [address] [email or web address] Cardiology 02/11/19 11/13/20 Kenneth Carter MD [address] [place] [address] Neurology 02/11/19 11/13/20 Noe Mccann MD Ophthalmology 02/11/19 Audra Gutierrez MD [address] [place] [address] 2nd [place] [address] [email or web address] Intensive Care 02/11/19 Edouard Mosley MD [address] [place] [address], [facility] [address] [place] [address] [email or web address] Plastic and Reconstructive Surgery 02/11/19 Nara Tejada MD [address] [place] [address], [address] [place] [address] [email or web address] Consulting Provider Nephrology 02/11/19 Jose Thomas MD [address] [place] [address] [email or web address] Consulting Provider Infectious Diseases 02/11/19 Trish Hammonds MD [address] [place] [address] [email or web address] Rheumatology 02/11/19 Celina He DPM [address] [place] [address] [email or web address] Podiatry 02/11/19 Elizabeth Goode MD [address] [place] [address] [place] [address] Psychologist 03/27/20 documented as of this encounter Additional Source Comments The information contained in this document represents components of the legal health record. It is not the complete legal health record.[facility]
--- OUTSIDE RECORDS SUMMARY | 2025-04-16 20:57 | XMS_ITS | Encounter Summary ---
Author Organization [facility] Address [address] [facility] [address] [place] [address] Phone Care Team Providers Care Applied Psychology Teacher Name Role Phone Olvin Harvey MD Unavailable [phone] Ema Kaufman DO Primary Care Provider Krissy Hernandez Primary Care Pro vider Martin Green MD Primary Care Provider [phone] Martin Bales MD Unavailable [phone] Jose Gallagher MD Unavailable [phone] Ramiro Schmidt MD Unavailable Enio Starkey MD Unavailable [phone] Kenneth Carter MD Unavailable Noe Mccann MD Unavailable Unavailable Audra Gutierrez MD Unavailable Edouard Mosley MD Unavailable Martin Green MD Primary Care Provider [phone] Nara Tejada MD Unavailable [phone] Jose Thomas MD Unavailable [phone] Trish Hammonds MD Unavailable [phone] Celina He DPM Unavailable [phone] Olvin Harvey MD Unavailable [phone] Fabián Seaman MD Unavailable +[phone] Elizabeth Goode MD Unavailable [phone] Martin Green MD Primary Care Provider [phone] Martin Green MD Primary Care Provider +[phone] Griselda Bello NP Primary Care Provider [phone] Encounter Details Date Type Department Care Team (Late Contact Info) Description 09/21/2018 Ancillary Orders [facility] [address] [place] [address] Abi Valdez MD [address] [facility] RA[employer] [address] [email or web address] Breast screening Social History Tobacco Use Types Packs/Day Years [...] 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 documented as of this encounter Plan of Treatment Upcoming Encounters Date Type Department Care Team (Late Contact Info) Description 04/28/2025 2:00 PM EST Office Visit [facility] [address] [place] [address] 3rd Floor, [address] [place] [address] Minda Nelson DNP [address] [place] [address], [address] [place] [address] 07/29/2025 1:00 PM EST Office Visit [facility] [address] [facility] 3rd Floor, [address] [place] [address] Minda Nelson DNP [address] [facility], [address] [place] [address] 08/31/2025 11:50 AM EDT Office Visit [facility] [place], Allergy and Critical Care Medicine [address] [facility] [place] [address] Audra Gutierrez MD [address] [place] [address] 2nd [place] [address] documented as of this encounter Results * BI MAMMOGRAM SCREENING WITH TOMOSYNTHESIS WITH CAD (BILATERAL) (10/09/2018 12:58 PM EDT) Anatomical Region Laterality Modality Breast Left, Breast Right, Breast Bilateral Bila teral Mammography 10/09/2018 2:39 PM EDT Impressions 10/09/2018 2:42 PM EDT Stable appearance relative to prior imaging. No findings suggestive of malignancy are seen. BI-RADS CATEGORY: 1 - Negative. DENSITY: There are scattered fibroglandular densities. POS - [id number] Narrative 10/09/2018 2:42 PM EDT Full-field digital [...] or architectural distortion is identified. Procedure Note Jacob Philippe MD - 10/09/2018 Full-field digital mammography [...] There are scattered fibroglandular densities. 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 Infection Utility 08/05/2015 08/05/2015 07/24/2022 1:27 A M EST CoV-Risk 12/17/2019 12/20/2019 12/31/2019 3:3 4 AM EDT CoV-Risk 03/26/2020 03/26/2020 03/27/2020 11:4 [...] documented as of this encounter Care Teams Applied Psychology Teacher Relationship Specialty Start Date End Date Ema Kaufman DO [address] [place] [phone] [email or web address] PCP - General 06/12/18 09/22/18 Krissy Hernandez PA [address] [place] [address] [email or web address] PCP - General Internal Medicine 09/23/18 10/04/18 Martin Green MD [address] [place] [address] [email or web address] PCP - General Internal Medicine 10/05/18 02/10/19 Martin Green MD [address] [place] [address] [email or web address] PCP - General Internal Medicine 02/11/19 04/11/20 Martin Green MD [address] [place] [address] [email or web address] PCP - General Internal Medicine 04/12/20 05/25/23 Martin Green MD [address] [place] [address] [email or web address] PCP - General Internal Medicine 05/26/23 01/25/25 Griselda Bello NP [address] [place] [address] PCP - General Nurse Practitioner 01/26/25 Olvin Harvey MD [address] [facility] 1 [place] [address] [email or web address] Insurance Assigned Provider 04/12/17 02/10/19 Martin Bales MD [address] [place] [address] [email or web address] Gastroenterology 10/07/18 11/13/20 Jose Gallagher MD [address] [place] [address], [address] [address] [email or web address] Urology 10/07/18 11/13/20 Ramiro Schmidt MD [address] [place] [address], [address] [address] [email or web address] Endocrinology 02/11/19 11/13/20 Enio Starkey MD [address] [place] [address], [address] [address] [email or web address] Cardiology 02/11/19 11/13/20 Kenneth Carter MD [address] [place] [address] Neurology 02/11/19 11/13/20 Noe Mccann MD Ophthalmology 02/11/19 Audra Gutierrez MD [address] [place] [address] 2nd [place] [address] [email or web address] Intensive Care 02/11/19 Edouard Mosley MD [address] [place] [address], [address] [place] [address] [email or web address] Plastic and Reconstructive Surgery 02/11/19 Nara Tejada MD [address] [place] [address], [address] [place] [address] [email or web address] Consulting Provider Nephrology 02/11/19 Jose Thomas MD [address] [place] [address] [email or web address] Consulting Provider Infectious Diseases 02/11/19 Trish Hammonds MD [address] [place] [address], [facility] [address] [place] [address] [email or web address] Rheumatology 02/11/19 Celina He DPM [address] [place] [address] Podiatry 02/11/19 Olvin Harvey MD [address] [place] [address] Floor 1 [place] [address] [email or web address] Insurance Assigned Provider 04/12/17 03/06/19 Fabián [place]aman MD [address] [place] [address], [address] [place] [address] [email or web address] Insurance Assigned Provider 03/06/19 07/09/19 Elizabeth Goode MD [address] [place] [address] [address] [place] [address] Psychologist 03/27/20 documented as of this encounter Additional Source Comments The information contained in this document represents components of the legal health record. It is not the complete legal health record.[facility]
--- OUTSIDE RECORDS SUMMARY | 2025-04-16 20:57 | XMS_ITS | Encounter Summary ---
Author Organization [facility] Address [address] [facility] [address] [place] [address] Phone Care Team Providers Care Director Critical Care Name Role Phone Martin Bales MD Unavailable Jose Gallagher MD Unavailable [phone] Ramiro Schmidt MD Unavailable [phone] Enio Starkey MD Unavailable [phone] Kenneth Carter MD Unavailable Noe Mccann MD Unavailable Unavailable Audra Gutierrez MD Unavailable Edouard Mosley MD Unavailable Martin Green MD Primary Care Provider Nara Tejada MD Unavailable [phone] Jose Thomas MD Unavailable [phone] Trish Hammonds MD Unavailable Celina He DPM Unavailable [phone] Elizabeth Goode MD Unavailable [phone] Martin Green MD Primary Care Provider [phone] Martin Green MD Primary Care Provider [phone] Griselda Bello NP Primary Care Provider [phone] Encounter Details Date Type Department Care Team (Late Contact Info) Description 01/28/2020 Procedure Pass [facility], Ct Scan - [address] [address] Social History Tobacco Use Types Packs/Day Years [...] 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 documented as of this encounter Plan of Treatment Upcoming Encounters Date Type Department Care Team (Late Contact Info) Description 04/28/2025 2:00 PM EST Office Visit [facility] [address] 3rd [facility], [address] [place] [address] Minda Nelson DNP [address] [place] [address] 07/29/2025 1:00 PM EST Office Visit [facility] [address] 3rd Floor, [address] [place] [address] Minda Nelson DNP [address] [place] [address], [address] [address] 08/31/2025 11:50 AM EDT Office Visit [facility] [address] [place] [address] [place] [address] Audra Gutierrez MD [address] [place] [address] 2nd [place] [address] [email or web address] documented as of this encounter [...] as of this encounter Care Teams Director Critical Care Relationship Specialty Start Date End Date Martin Green MD [address] [place] [address], [address] [place] [address] [email or web address] PCP - General Internal Medicine 02/11/19 04/11/20 Martin Green MD [address] [facility], [address] [place] [address] [email or web address] PCP - General Internal Medicine 04/12/20 05/25/23 Martin Green MD [address] [place] [phone] [email or web address] PCP - General Internal Medicine 05/26/23 01/25/25 Griselda Bello NP [address] [place] [address] PCP - General Nurse Practitioner 01/26/25 Martin Bales MD [address] [place] [address] [email or web address] Gastroenterology 10/07/18 11/13/20 Jose Gallagher MD [address] [place] [address], [address] [address] [email or web address] Urology 10/07/18 11/13/20 Ramiro Schmidt MD [address] [place] [address], [address] [place] [address] [email or web address] Endocrinology 02/11/19 11/13/20 Enio Starkey MD [address] [place] [address], [address] [address] [email or web address] Cardiology 02/11/19 11/13/20 Kenneth Carter MD [address] [place] [address] Neurology 02/11/19 11/13/20 Noe Mccann MD Ophthalmology 02/11/19 Audra Gutierrez MD [address] [place] [address] 2nd [place] [address] [email or web address] Intensive Care 02/11/19 Edouard Mosley MD [address] [place] [address], [facility] [address] [place] [address] [email or web address] Plastic and Reconstructive Surgery 02/11/19 Nara Tejada MD [address] [place] [address], [address] [place] [address] [email or web address] Consulting Provider Nephrology 02/11/19 Jose Thomas MD [address] [place] [address] [email or web address] Consulting Provider Infectious Diseases 02/11/19 Trish Hammonds MD [address] [place] [address] [email or web address] Rheumatology 02/11/19 Celina He DPM [address] [place] [address] [email or web address] Podiatry 02/11/19 Elizabeth Goode MD [address] [place] [address] [place] [address] Psychologist 03/27/20 documented as of this encounter Additional Source Comments The information contained in this document represents components of the legal health record. It is not the complete legal health record.[facility]
--- OUTSIDE RECORDS SUMMARY | 2025-04-16 20:57 | XMS_ITS | Encounter Summary ---
Author Organization [facility] Address [address] [facility] [address] [place] [address] Phone Care Team Providers Care News Library Director Name Role Phone Olvin Harvey MD Unavailable [phone] Ema Kaufman DO Primary Care Provider Krissy Hernandez Primary Care Pro vider Martin Green MD Primary Care Provider [phone] Martin Bales MD Unavailable [phone] Jose Gallagher MD Unavailable [phone] Ramiro Schmidt MD Unavailable Enio Starkey MD Unavailable [phone] Kenneth Carter MD Unavailable Noe Mccann MD Unavailable Unavailable Audra Gutierrez MD Unavailable Edouard Mosley MD Unavailable Martin Green MD Primary Care Provider [phone] Nara Tejada MD Unavailable [phone] Jose Thomas MD Unavailable [phone] Trish Hammonds MD Unavailable Celina He DPEvelin Unavailable [phone] Olvin Harvey MD Unavailable [phone] Fabián Seaman MD Unavailable [phone] Elizabeth Goode MD Unavailable [phone] Martin Green MD Primary Care Provider + Martin Green MD Primary Care Provider [phone] Griselda Bello NP Primary Care Provider [phone] Encounter Details Date Type Department Care Team (Latest Contact Info) Description 09/17/2018 Transcribe Orders Virtual Department 30 [place] [address] Jose Gallagher MD [address] [place] [address], [place] [address] [email or web address] Feeling of incomplete bladder emptying (Primary Dx); Other constipation Social History Tobacco Use Types Packs/Day Years [...] 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 documented as of this encounter Plan of Treatment Upcoming Encounters Date Type Department Care Team (Late st Contact Info) Description 04/28/2025 2:00 PM EST Office Visit [facility] [address] [place] [address] 3rd Floor, [address] [place] [address] Minda Nelson, ESTRELLITA [address] [facility], [address] [address] [email or web address] 07/29/2025 1:00 PM EST Office Visit [facility] [address] [facility] 3rd Floor, [address] [place] [address] Minda Nelson, ESTRELLITA 22 [facility], [address] [place] [address] [email or web address] 08/31/2025 11:50 AM EDT Office Visit [facility] 10 [facility] [place] [address] Audra Gutierrez MD [address] [place] [address] 2nd [place] [address] [email or web address] documented as of this encounter Results * US Kidneys and Bladder (10/09/2018 12:31 PM EDT) Anatomical Region Laterality Modality Abdomen, Kidney Ultrasound 10/09/2018 12:4 1 PM EDT Impressions 10/09/2018 12:46 PM EDT 38% postvoid residual in the urinary bladder. No hydronephrosis is noted. Echogenic structures evident-one in each kidney which are likely angiomyolipomas although parenchymal cortical calcifications are possible. These are not evident on review of prior CT imaging however. S/S: Incomplete bladder emptying, postvoid residual POS - [id number] Narrative 10/09/2018 12:46 PM EDT COMPARISON: CT abdomen and pelvis 08/06/2018 FINDINGS: The right kidney measures 9.9 x 5.0 cm while the left kidney measures 9.9 x 5.0 cm as well. No hydronephrosis is seen. There is a 7 mm echogenic structure evident without shadowing in the upper cortex of the right kidney. This is of indeterminate etiology. I suspect this may represent an angiomyolipoma although a cortical calcification is not excluded. No associated finding is evident in this region on CT scanning. In the left kidney there is an echogenic lesion seen in the mid cortex measuring 4 mm in diameter. This is also non-shadowing and nonvascular. Again a small angiomyolipoma or cortical calcification is possible. No correlate is seen on recent CT scanning. The urinary bladder has an initial volume of 305 mL with a postvoid volume of 40 mL for a 38% postvoid residual. Both ureteral jets are seen. Procedure Note Jacob Philippe MD - 10/09/2018 COMPARISON: CT abdomen and pelvis 08/06/2018 FINDINGS: The right kidney measures 9.9 x 5.0 cm while the left kidney measures 9.9x 5.0 cm as well. No hydronephrosis is seen. There is a 7 mm echogenic structure evident without shadowing in the uppercortex of the right kidney. This is of indeterminate etiology. I suspectthis may represent an angiomyolipoma although a cortical calcification isnot excluded. No associated finding is evident in this region on CTscanning. In the left kidney there is an echogenic lesion seen in the mid cortexmeasuring 4 mm in diameter. This is also non-shadowing and nonvascular.Again a small angiomyolipoma or cortical calcification is possible. Nocorrelate is seen on recent CT scanning. The urinary bladder has an initial volume of 305 mL with a postvoid volumeof 40 mL for a 38% postvoid residual. Both ureteral jets are seen. IMPRESSION: 38% postvoid residual in the urinary bladder. No hydronephrosis is noted. Echogenic structures evident-one in each kidney which are likelyangiomyolipomas although parenchymal cortical calcifications are possible.These are not evident on review of prior CT imaging however. S/S: Incomplete bladder emptying, postvoid residual POS - [id number] Jose Gallagher MD [facility] Final Result documented in this encounter Visit Diagnoses Diagnosis Feeling of incomplete bladder emptying- Primary Other constipation Feeling of incomplete bladder emptying Other constipation documented in this encounter Additional Health Concerns [...] documented as of this encounter Care Teams News Library Director Relationship Specialty Start Date End Date Ema Kaufman DO [address] [place] [address] [email or web address] PCP - General 06/12/18 09/22/18 Krissy Hernandez PA [address] [place] [address] [email or web address] PCP - General Internal Medicine 09/23/18 10/04/18 Martin Green MD [place] [address] [email or web address] PCP - General Internal Medicine 10/05/18 02/10/19 Martin Green MD [address] [place] [address] [email or web address] PCP - General Internal Medicine 02/11/19 04/11/20 Martin Green MD [address] [place] [address] [email or web address] PCP - General Internal Medicine 04/12/20 05/25/23 Martin Green MD [address] [place] [phone] [email or web address] PCP - General Internal Medicine 05/26/23 01/25/25 Griselda Bello NP [address] [place] [address] PCP - General Nurse Practitioner 01/26/25 Olvin Harvey MD [address] [place] [address] 1 [place] [address] [email or web address] Insurance Assigned Provider 04/12/17 02/10/19 Martin Bales MD [address] [place] [address] [email or web address] Gastroenterology 10/07/18 11/13/20 Jose Gallagher MD [address] [place] [address], [address] [place] [address] [email or web address] Urology 10/07/18 11/13/20 Ramiro Schmidt MD [address] [place] [address], [address] [place] [address] [email or web address] Endocrinology 02/11/19 11/13/20 Enio Starkey MD [address] [place] [address], [address] [place] [address] [email or web address] Cardiology 02/11/19 11/13/20 Kenneth Carter MD [address] [place] [address] Neurology 02/11/19 11/13/20 Noe Mccann MD Ophthalmology 02/11/19 Audra Gutierrez MD [address] [place] [address] 2nd [place] [address] [email or web address] Intensive Care 02/11/19 Edouard Mosley MD [address] [place] [address], [address] [place] [address] [email or web address] Plastic and Reconstructive Surgery 02/11/19 Nara Tejada MD [address] [place] [address], [address] [place] [address] [email or web address] Consulting Provider Nephrology 02/11/19 Jose Thomas MD [address] [place] [address] [email or web address] Consulting Provider Infectious Diseases 02/11/19 Trish Hammonds MD [address] [facility], [address] [place] [address] [email or web address] Rheumatology 02/11/19 Celina He DPM [address] [facility], [address] [place] [address] [email or web address] Podiatry 02/11/19 Olvin Harvey MD [address] [facility] Floor 1 [place] [address] [email or web address] Insurance Assigned Provider 04/12/17 03/06/19 Fabián Seaman MD [address] [facility], [address] [place] [address] [email or web address] Insurance Assigned Provider 03/06/19 07/09/19 Elizabeth Goode MD [address] [place] [address] Psychologist 03/27/20 documented as of this encounter Additional Source Comments The information contained in this document represents components of the legal health record. It is not the complete legal health record.[facility]
--- OUTSIDE RECORDS SUMMARY | 2025-04-16 20:57 | XMS_ITS | Encounter Summary ---
Author Organization [facility] Address [address] [place] [address] [address] [place] [address] Phone Care Team Providers Care Ethnic Origins Teacher Name Role Phone Noe Mccann MD Unavailable Unavailable Audra Gutierrez MD Unavailable [phone] Edouard Mosley MD Unavailable Nara Tejada MD Unavailable [phone] Jose Thomas MD Unavailable [phone] Trish Hammonds MD Unavailable Celina He DPM Unavailable Elizabeth Goode MD Unavailable [phone] Martin Green MD Primary Care Provider [phone] Griselda Bello NP Primary Care Provider Encounter Details Date Type Department Care Team (Late st Contact Info) Description 07/28/2024 Procedure Pass [facility] Endoscopy Admitting Dept Virtual Department 30 [place], [place] [id number] Social History Tobacco Use Types Packs/Day Years [...] 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 documented as of this encounter Plan of Treatment Upcoming Encounters Date Type Department Care Team (Late st Contact Info) Description 04/28/2025 2:00 PM EST Office Visit [facility] [address] [place] [address] 3rd Floor, [address] [place] [address] Minda Nelson, ESTRELLITA [address] [facility], [address] [place] [address] 07/29/2025 1:00 PM EST Office Visit [facility] [address] [place] [address] 3rd Floor, [address] [place] [address] Minda Nelson, ESTRELLITA [address] [facility], [address] [place] [address] 08/31/2025 11:50 AM EDT Office Visit [facility] 10 [facility] [place] [address] Audra Gutierrez MD [facility] 2nd [place] [address] [email or web address] documented as of this encounter Visit [...] documented as of this encounter Care Teams Ethnic Origins Teacher Relationship Specialty Start Date End Date Martin Green MD [address] [place] [phone] [email or web address] PCP - General Internal Medicine 05/26/23 01/25/25 Griselda Bello NP [address] [place] [address] PCP - General Nurse Practitioner 01/26/25 Noe Mccann MD Ophthalmology 02/11/19 Audra Gutierrez MD [address] [place] [address] 2nd [place] [address] [email or web address] Intensive Care 02/11/19 Edouard Mosley MD [address] [place] [address], [address] [place] [address] [email or web address] Plastic and Reconstructive Surgery 02/11/19 Nara Tejada MD [address] [place] [address], [address] [place] [address] [email or web address] Consulting Provider Nephrology 02/11/19 Jose Thomas MD [address] [place] [address] [email or web address] Consulting Provider Infectious Diseases 02/11/19 Trish Hammonds MD [address] [place] [address], [facility] [address] [place] [address] [email or web address] Rheumatology 02/11/19 Celina He DPM [address] [facility], [address] [address] [email or web address] Podiatry 02/11/19 Elizabeth Goode MD [address] [place] [address] Psychologist 03/27/20 documented as of this encounter Additional Source Comments The information contained in this document represents components of the legal health record. It is not the complete legal health record.[facility]
--- OUTSIDE RECORDS SUMMARY | 2025-04-16 20:57 | XMS_ITS | Encounter Summary ---
Author Organization [facility] Address [address] [place] [address] [address] [place] [address] Phone Care Team Providers Care Endodontic Assistant Name Role Phone Noe Mccann MD Unavailable Unavailable Audra Gutierrez MD Unavailable [phone] Edouard Mosley MD Unavailable Nara Tejada MD Unavailable Jose Thomas MD Unavailable [phone] Trish Hammonds MD Unavailable [phone] Celina He DPEvelin Unavailable [phone] Elizabeth Goode MD Unavailable Griselda Bello SOFTWARE ENGINEER ADVISOR Primary Care Provider [phone] Encounter Details Date Type Department Care Team (Late st Contact Info) Description 03/10/2025 Procedure Pass [facility] Echo Lab [address] [place], [place] [phone] Social History Tobacco Use Types Packs/Day Years [...] 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 Wish to be (Past 1 Month) No 03/10/2025 1:15 PM EDT Tanisha Paiz RN 2. Non-Specific Active Suici aby Thoughts (Past 1 Month) No 03/10/2025 1:15 PM EDT Mckenna Paiz cia, RN 6. Suicidal Behavior (Lifetime) No 1:15 PM EDT Tanisha Paiz RN documented as of this encounter Plan of Treatment Upcoming Encounters Date Type Department Care Team (Late st Contact Info) Description 04/28/2025 2:00 PM EST Office Visit [facility] [address] [place] [address] [place] [address], [address] [address] Minda Nelson DNP [address] [place] [address] 07/29/2025 1:00 PM EST Office [facility] [address] [place] [address], [address] [address] Minda Nelson DNP [address] [place] [address] 08/31/2025 11:50 AM EDT Office Visit [facility] 10 [place] [address] Audra Gutierrez MD [address] [place] [address] [email or web address] documented as of this encounter Visit Diagnoses [...] documented as of this encounter Care Teams Endodontic Assistant Relationship Specialty Start Date End Date Griselda Bello NP [address] [place] [address] PCP - General Nurse Practitioner 01/26/25 Noe Mccann MD Ophthalmology 02/11/19 Audra Gutierrez MD [address] [place] [address] [email or web address] Intensive Care 02/11/19 Edouard Mosley MD [address] [place] [address], [address] [place] [address] [email or web address] Plastic and Reconstructive Surgery 02/11/19 Nara Tejada MD [address] [place] [address], [address] [place] [address] [email or web address] Consulting Provider Nephrology 02/11/19 Jose Thomas MD [address] [place] [address] [email or web address] Provider Infectious Diseases 02/11/19 Trish Hammonds MD [address] [address] [email or web address] Rheumatology 02/11/19 Celina He DPM [address] [place] [address], [address] [address] [email or web address] Podiatry 02/11/19 Elizabeth Goode MD [address] [place] [address] Psychologist 03/27/20 documented as of this encounter Additional Source Comments The information contained in this document represents components of the legal health record. It is not the complete legal health record.[facility]
--- OUTSIDE RECORDS SUMMARY | 2025-04-16 20:58 | XMS_ITS | Encounter Summary ---
Author Organization [facility] Address [address] [place] [address] [place] [phone] Phone Care Team Providers Care Patroller Name Role Phone Olvin Harvey MD Unavailable [phone] Martin Green MD Primary Care Provider [phone] Martin Bales MD Unavailable Jose Gallagher MD Unavailable [phone] Ramiro Schmidt MD Unavailable Enio Starkey MD Unavailable [phone] Kenneth Carter MD Unavailable Noe Mccann MD Unavailable Unavailable Audra Gutierrez MD Unavailable Edouard Mosley MD Unavailable Martin Green MD Primary Care Provider [phone] Nara Tjeada MD Unavailable Jose Thomas MD Unavailable [phone] Trish Hammonds MD Unavailable Celina He DPM Unavailable Olvin Harvey MD Unavailable [phone] Fabián Seaman MD Unavailable [phone] Elizabeth Goode MD Unavailable [phone] Martin Green MD Primary Care Provider + Martin Green MD Primary Care Provider + Griselda Bello NP Primary Care Provider + [phone] Reason for Referral * MRI/CAT Scan - Closed Specialty Diagnoses / Procedures Referred By Contcaleb t Referred To Contact Diagnoses Atherosclerosis of ewiiaapaayp coronary artery of ewiiaapaayp heart without angina pectoris Procedures MCT (Mobile Cardiac Telemetry) Enio Starkey MD Phone: tel: fax: mailto:[email or web address] Referral ID Status Reason Start Date Expiration Date Visits Re quested Visits Authorized [id number] Closed 12/17/2018 12/17/2019 1 1 Encounter Details Date Type Department Care Team (Latest Contact Info) Description 12/17/2018 Ancillary Orders [facility] [address] [facility] 3rd Floor, [address] [place] [address] Enio Starkey MD [address] [place] [id number] [email or web address] Atherosclerosis of ewiiaapaayp coronary artery of ewi[place]apaay[place] heart without angina pectoris Social History Tobacco Use Types Packs/Day Years [...] Job Start Date Job End Date Retired [employer]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 documented as of this encounter Plan of Treatment Upcoming Encounters Date Type Department Care Team (Late st Contact Info) Description 04/28/2025 2:00 PM EST Office Visit [facility] [address] Floor, [address] [place] [address] Minda Nelson DNP [address] [facility], [address] [address] [email or web address] 07/29/2025 1:00 PM EST Office Visit [facility] [address] [facility] 3rd Floor, [address] [place] [address] Minda Nelson DNP [address] [facility], [address] [address] 08/31/2025 11:50 AM EDT Office Visit [facility] All[facility] [address] [place] [address] Audra Gutierrez MD [address] [place] [phone] documented as of this encounter Results * MCT (Mobile Cardiac Telemetry) (12/17/2018 1:51 PM EDT) Anatomical Region Laterality Modality Heart Other Narrative 12/17/2018 2:36 PM EDT [facility]OT monitor report Indication paroxysmal atrial fibrillation Findings: Enrollment date 11/12/2018 through 12/11/2018 The underlying rhythm is a sinus rhythm with an average heart rate of 85 bpm, minimal heart rate 51 bpm, maximal heart rate 143 bpm. There is no evidence of atrial fibrillation. There were rare isolated PVCs. There were somewhat frequent premature atrial contractions occurring about 1% of total beats. Conclusion: No evidence of atrial fibrillation. Somewhat frequent premature atrial contractions occurring about 1% of total beats. Procedure Note Rich Kendall MD - 12/17/2018 MCOT monitor report Indication paroxysmal atrial fibrillation Findings: Enrollment date 11/12/2018 through 12/11/2018 The underlying rhythm is a sinus rhythm with an average heart rate of 85bpm, minimal heart rate 51 bpm, maximal heart rate 143 bpm. There is no evidence of atrial fibrillation. There were rare isolated PVCs. There were somewhat frequent premature atrial contractions occurring about1% of total beats. Conclusion: No evidence of atrial fibrillation. Somewhat frequent premature atrial contractions occurring about 1% oftotal beats. Enio Starkey MD [facility] ORDERABLES Final Result documented in this encounter Visit Diagnoses Diagnosis Atherosclerosis of ewiiaapaayp coronary artery of ewiiaapaay[place] heart without angina pectoris Atherosclerosis of ewiiaapaayp coronary artery of ewi[place]apaayp heart without angina pectoris documented in this encounter Additional Health Concerns [...] documented as of this encounter Care Teams Patroller Relationship Specialty Start Date End Date Martin Green MD [address] [address] [email or web address] PCP - General Internal Medicine 10/05/18 02/10/19 Martin Green MD [address] [address] [email or web address] PCP - General Internal Medicine 02/11/19 04/11/20 Martin Green MD [address] [address] [email or web address] PCP - General Internal Medicine 04/12/20 05/25/23 Martin Green MD [address] [place] [address] [email or web address] PCP - General Internal Medicine 05/26/23 01/25/25 Griselda Bello NP [address] [place] [address] PCP - General Nurse Practitioner 01/26/25 Olvin Harvey MD [address] [address] [email or web address] Insurance Assigned Provider 04/12/17 02/10/19 Martin Bales MD [address] [place] [address] [email or web address] Gastroenterology 10/07/18 11/13/20 Jose Gallagher MD [address] [place] [address], [address] [place] [address] [email or web address] Urology 10/07/18 11/13/20 Ramiro Schmidt MD [address] [place] [address], [address] [place] [address] [email or web address] Endocrinology 02/11/19 11/13/20 Enio Starkey MD [address] [place] [address], [address] [place] [address] [email or web address] Cardiology 02/11/19 11/13/20 Kenneth Carter MD [address] [place] [address] Neurology 02/11/19 11/13/20 Noe Mccann MD Ophthalmology 02/11/19 Audra Gutierrez MD [address] [place] [address] 2nd [place] [address] [email or web address] Intensive Care 02/11/19 Edouard Mosley MD [address] [place] [address], [address] [place] [address] [email or web address] Plastic and Reconstructive Surgery 02/11/19 Nara Tejada MD [address] [place] [address], [address] [place] [address] [email or web address] Consulting Provider Nephrology 02/11/19 Jose Thomas MD [address] [place] [address] [email or web address] Consulting Provider Infectious Diseases 02/11/19 Trish Hammonds MD [address] [facility], [address] [place] [address] [email or web address] Rheumatology 02/11/19 Celina He DPM [address] [facility], [address] [place] [address] [email or web address] Podiatry 02/11/19 Olvin Harvey MD [address] [facility] Floor 1 [place] [address] [email or web address] Insurance Assigned Provider 04/12/17 03/06/19 Fabián Seaman MD [address] [facility], [address] [place] [address] [email or web address] Insurance Assigned Provider 03/06/19 07/09/19 Elizabeth Goode MD [address] [place] [address] Psychologist 03/27/20 documented as of this encounter Additional Source Comments The information contained in this document represents components of the legal health record. It is not the complete legal health record.[facility]
--- OUTSIDE RECORDS SUMMARY | 2025-04-16 20:58 | XMS_ITS | Clinical Summary ---
Author Organization [facility] Address [address] [place] [address] Care Team Providers Care Software Test Technician Name Role Phone Martin Green Primary Care Provider [phone] Allergies Active Allergy Reactions Criticality Noted Date Comments Amoxicillin-Pot Clavulanate Anaphylaxis High Diphenhydramine Hcl Dyspnea,Anaphylaxi s High 05/12/2017 Cephalosporins Dyspnea High 10/14/2013 Difficulty with several cephalosporins but cephalexin is OK Ciprofloxacin Unknown Other reaction(s): Unknown (inactive) (inactive) Clarithromycin Dyspnea High Codeine Anaphylaxis High 04/24/2017 Dyspnea Losartan Dyspnea High 07/11/2017 Shortness of breath Doxycycline Hyclate Nausea 09/10/2017 Fluoxetine Other (see comments) 11/10/2013 Gabapentin Other (see comments) 04/24/2017 can't think right altered nental status (active) Levofloxacin Unknown 11/22/2019 Lisinopril Cough 04/24/2017 can't think right Pregabalin Dizziness Other reaction(s): Dizziness Other Anaphylaxis,Dyspne a High 10/14/2013 Benadryl. Codeine Derivatives. Penicillins Anaphylaxis High Sulfa (Sulfonamide Antibiotics) Dyspnea,Anaphylaxi s High 05/12/2017 Medications * This document contains information received from the source organization and may not represent a complete record from that organization. lidocaine (LIDODERM) 5% patch 6 Active ammonium lactate (AMLACTIN) 12 % cream Active ergocalciferol (VITAMIN D2) 50,000 unit capsule Take 50,000 Units by mouth. Active levothyroxine (SYNTHROID, LEVOTHROID) 100 mcg tablet Take 75 mcg by mouth daily. Active magnesium oxide (MAG-OX) 400 mg tablet Take 1,200 mg by mouth. Active methenamine (HIPREX) 1 gram tablet TAKE ONE TABLET BY MOUTH TWICE A DAY 8 Active montelukast (SINGULAIR) 10 mg tablet Take 10 mg by mouth. 7 Active blood glucose diagnostic (FREESTYLE LITE STRIPS) test strip as directed In Vitro Three times a day Active apixaban (ELIQUIS) 5 mg tablet 5 mg PO bid 0 Active morphine IR 15 mg tablet Take 15 mg by mouth every 6 hours as needed. 0 Active promethazine (PHENERGAN) 25 mg tablet Take 25 mg by mouth every 6 hours as needed. 0 Active sildenafiL, pulm.hypertensi on, (REVATIO) 20 mg tablet 1 Active dorzolamide (TRUSOPT) 2% ophthalmic solution SMARTSIG:In Eye(s) 3 Active brimonidine (ALPHAGAN) 0.2% ophthalmic solution Instill 1 drop into affected eye(s) 2 times daily. Active cloNIDine (CATAPRES) 0.1 mg tablet Take 0.1 mg by mouth 2 times a day. Take 2 tablets nightly 3 Active spironolactone (ALDACTONE) 100 mg tablet Take 100 mg by mouth daily. Active Dupixent Syringe 300 mg/2 mL syringe injection 300 mg. 4 Active Lactobac. rhamnosus GG-inulin 10 billion cell -200 mg capsule, sprinkle Take 200 mg by mouth daily. Active hydrocortisone 1% cream Apply 1 Application topically to the affected area 2 times daily as needed. Active nut.tx.glucose intolerance,soy (GLUCERNA ORAL) Take by mouth. Active carboxymethylce llulose sodium 0.5 % drops 1-2 drops daily. A ctive biotin 10 mg tablet Take 10 mg by mouth once a day. 90 each 1 5 Active diazePAM (VALIUM) 5 mg tabletIndicatio ns:Demyelinatin g disease of central nervous system (HCC) Take 1 tablet (5 mg total) by mouth every 8 hours as needed for muscle spasms. 90 tablet [address] (PROTONIX) 20 mg tablet Take 1 tablet (20 mg total) by mouth once a day. 30 tablet 1 5 Active aspirin 81 mg capsule Take 81 mg by mouth daily. 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) TAKE ONE TABLET BY MOUTH TWICE A DAY 60 tablet 5 5 Active amantadine (SYMMETREL) 100 mg capsuleIndicati ons:Demyelinati ng disease of central nervous system (HCC) TAKE ONE CAPSULE BY MOUTH TWICE A DAY 60 capsule 11 5 Active Active Problems Problem Noted Date Diagnosed Date Cognitive change 03/18/2019 Cerebrovascular accident (CV A) due to embolism of left middle cerebral artery 10/08/2018 Demyelinating disease 07/12/2015 Encounters Date Type Department Care Team Description 03/24/2025 Telephone [facility] [address] [place] [address] Traveling Clerk: Vania Waterman LPN 03/17/2025 Orders Only [facility] [address] [address] Traveling Clerk: Kecia Galicia MD 03/09/2025 Telephone [facility] [address] [place] [address] Traveling Clerk: Vania Waterman LPN 03/08/2025 Telephone [facility] [address] [address] Traveling Clerk: Ben Turcios LPN 03/08/2025 Refill [facility] [address] [place] [address] Traveling Clerk: Kenneth Walsh MD PhD Demyelinating disease 03/03/2025 Telephone [facility] [address] [place] [address] Traveling Clerk: Lucie Reece CCMA PAC Clinical Questions 03/03/2025 Telephone [facility] [address] [place] [address] Traveling Clerk: Elizabeth Hummel Telephone Intake, Staff PAC General Info 02/25/2025 Telephone [facility] [address] [place] [address] Traveling Clerk: Charles Phillips MA 02/23/2025 Refill [facility] [address] [place] [address] Traveling Clerk: Kenneth Walsh MD PhD Demyelinating disease 02/08/2025 Telephone [facility] [address] [place] [address] Traveling Clerk: Vania Waterman LPN 02/02/2025 1:00 PM EDT Office Visit [facility] [address] [place] [address] Traveling Clerk: Kenneth Walsh MD PhD Multiple sclerosis (HCC) (Primary Dx); Cerebrovascular disease; Demyelinating disease 01/31/2025 Telephone [facility] [address] [place] [address] Mercy Patrick RN 01/31/2025 Telephone [facility] [address] [place] [address] Traveling Clerk: Elizabeth Hummel Telephone Intake, Staff PAC Sick/Symptoms; PAC Nurse Scheduling Request 01/26/2025 Refill [facility] [address] [place] [address] Traveling Clerk: Charles Phillips MA Demyelinating disease from Last 3 Months Social History Tobacco Use Types Packs/Day Years Used Date Smoking Tobacco: Former Cigarettes 2 30 0 12/31/1981 - 01/01/2012 Smokeless Tobacco: Never Tobacco Cessation:Counseling Given: Not [...] Sign Reading Time Taken Comments Blood Pressure 116/61 02/02/2025 1:15 PM EDT Pulse 76 02/02/2025 1:15 PM EDT Temperature 35.6 C (96.1 F) 07/20/2021 8:54 AM EST Respiratory Rate 17 01/30/2021 3:25 PM EDT Oxygen Saturation 95% 02/02/2025 1:15 PM EDT Inhaled Oxygen Concentration - - Weight 62.1 kg (137 lb) 07/20/2021 8:54 AM EST Height 160 cm (5' 3 ) 01/01/2019 9:12 AM EDT Body Mass Index 24.27 01/01/2019 9:12 AM EDT Plan of Treatment Upcoming Encounters Date Type Department Care Team (Late st Contact Info) Description 08/25/2025 2:00 PM EDT Office Visit [facility] [address] [place] [phone] Traveling Clerk: Kenneth Walsh MD PhD [address] [place] [address] Health Maintenance Due Date Last Done Comments Cologuard 1960 Colonoscopy 1960 Hepatitis C Screening 1960 Sigmoidoscopy 1960 Zoster Vaccines (1 of 2) 01/05/2008 RSV Vaccine (60+ years old and patients) (1 - Risk 60-74 years 1-dose series) 2018 Mammogram 10/09/2020 10/09/2018, 10/09/2018 Pneumococcal Vaccine: 50+ Years (3 of 3 - PCV20 or PCV21) 10/07/2022 10/07/2017, 06/30/2014, 12/11/2012 Alcohol/Substance Use Screening 06/09/2024 Depression Screening and Follow-Up 06/09/2024 Health Care Proxy Review 06/09/2024 Social Drivers of Health Annual Screening 06/09/2024 CT Lung Cancer Screening (Baseline) 09/16/2024 09/17/2023, 11/14/2020, 11/14/2020, Additional history exists COVID-19 Vaccine ( season) 2025 10/15/2021, 06/22/2021, 09/16/2020, Additional history exists Influenza Vaccine (#1) 2025 04/05/2022, 2018 Colon Cancer Screening 07/23/2025 FOBT / Fit Test 07/23/2025 07/23/2024 Fall Risk Screening 08/19/2025 08/19/2024 Basic Metabolic Panel 03/08/2026 03/08/2025 , 03/07/2025, 01/30/2025, Additional history exists DTaP,Tdap,and Td Vaccines (3 - Td or Tdap) 10/20/2028 10/20/2018, 12/11/2012 Osteoporosis Screening Completed 12/16/2018 CT Lung Cancer Screening (12 months, previous LungRADS 1 or 2) Discontinued 09/17/2023, 11/14/2020, 11/14/2020, Additional history exists Hepatitis B Vaccines Aged Out No long er eligible based on patient's age to complete this topic Procedures * Due to [place] [employer] law, this organization might not be sharing negative HIV tests. Procedure Name Priority Date/Time Associated Diagnosis Comments IMAGING - SCANNED Routine 03/17/2025 11: 59 AM EDT IMAGING - SCANNED Routine 03/17/2025 11: 58 AM EDT BRAIN C- ICOMETRIX CPT 30251 Routine 03/05/2025 4:10 PM EDT Multiple sclerosis (HCC) Cerebrovascular disease from Last 3 Months Results * Due to [place] state law, this organization might not be sharing negative HIV tests. * IMAGING - SCANNED (03/17/2025 11:59 AM EDT) Only the most recent of2 resultswithin the time period is included. Anatomical Region Laterality Modality Other us Unknown Provider MD SCANNED PROCEDURES Final Res ult * MRI Brain WO Contrast ICOMETRIX (03/05/2025 4:10 PM EDT) Anatomical Region Laterality Modality Body, Brain Magnetic Resonan ce 03/05/2025 3:30 PM EDT Narrative 03/08/2025 11:26 AM EDT [facility] Accession Number: [id number] Patient Name: Bella Shabazz Date of : 1960 Date of Exam: 03-05-2025 Referring Physician: Kenneth Carter [facility] [address] [place] [address] Exam: MR Brain (C-) Icometrix CPT 15772, 0866T Room Description: [facility] 3.0T MRI Brain W/O Icometrix INDICATION / CLINICAL QUESTION: Follow up on demyelinating lesions and cerebrovascular disease and ischemic stroke TECHNIQUE: MRI of the brain was performed without contrast utilizing sagittal and axial T1, axial T2, sagittal 3D FLAIR with multiplanar reformats, and axial DWI sequences. 3-D sagittal FLAIR and 3-D sagittal T1 sequences were submitted for Icometrix postprocessing analysis. COMPARISON: Brain MRI performed 09/13/2020 and 09/14/2018. FINDINGS: BRAIN and EXTRA-AXIAL SPACES: Multiple foci of T2 prolongation are seen in the periventricular, deep, juxtacortical white matter. Accounting for motion and slice selection, these appear similar to prior. There are a few scattered T1 hypointense foci in the supratentorial white matter. There is no restricted diffusion. No definite new lesions are seen. ICOMETRIX: Note that the Icometrix comparison is to the exam in 2019. QC remarks: Low tissue contrast in T1. Suboptimal alignment of scans between type point the reported brain volume changes are considered inaccurate. MS disease FLAIR burden by volume: Periventricular: 1.9 mL Juxtacortical: 0.3 mL, new count +2 Infratentorial: ? 0.05 mL Deep white matter: 2.4 mL, new count +3 Total load: 4.6 mL, percentile 25. New count +5 (0.23 mL), enlarging +14% (0.65 mL). T1 hypointensities volume:1.5 mL, new count +1 Head size normalization factor 0.65. Whole brain volume: 1536 mL, percentile 79 (change -6). Annualized volume change: -0.35%, normal annualized volume change: -0.26%. Simmons matter volume: 833 mL, percentile 5 (change +3). Annualized volume change: -0.11%, normal annualized volume change: -0.25%. There is no mass effect, midline shift, or effacement of the basal cisterns. There is no acute or subacute infarct. There is a chronic infarct with encephalomalacia in the posterior left frontal lobe which is unchanged. There is global prominence of the ventricles and sulci reflecting volume loss. No abnormal extra-axial fluid collections are seen. The expected major intracranial flow voids are present. EXTRACRANIAL SOFT TISSUES: Orbits are unremarkable, with right lens extraction noted. Paranasal sinuses and mastoids are unremarkable. BONES: Marrow signal is preserved. IMPRESSION: No change in multiple white matter lesions consistent with the history of multiple sclerosis. No evidence of progressive disease. WSN: [id number] Ordering Physician: Kenneth Carter Electronically Signed By: Danielle Larsen MD Procedure Note Provider, [place] - 03/08/2025 [facility] Accession Number: [id number] Patient Name: Bella Shabazz Date of : 1960 Date of Exam: 03-05-2025 Referring Physician: Kenneth Carter [facility] [address] [place] [address] Exam: MR Brain (C-) Icometrix CPT 31150, 0866T Room Description: [facility] 3.0T MRI Brain W/O Icometrix INDICATION / CLINICAL QUESTION: Follow up on demyelinating lesions and cerebrovascular disease and ischemic stroke TECHNIQUE: MRI of the brain was performed without contrast utilizingsagittal and axial T1, axial T2, sagittal 3D FLAIR with multiplanar reformats, andaxial DWI sequences. 3-D sagittal FLAIR and 3-D sagittal T1 sequences weresubmitted for Icometrix postprocessing analysis. COMPARISON: Brain MRI performed 09/13/2020 and 09/14/2018. FINDINGS: BRAIN and EXTRA-AXIAL SPACES: Multiple foci of T2 prolongation are seen inthe periventricular, deep, juxtacortical white matter. Accounting for motionand slice selection, these appear similar to prior. There are a few scatteredT1 hypointense foci in the supratentorial white matter. There is norestricted diffusion. No definite new lesions are seen. ICOMETRIX: Note that the Icometrix comparison is to the exam in 2019. QC remarks: Low tissue contrast in T1. Suboptimal alignment of scansbetween type point the reported brain volume changes are considered inaccurate. MS disease FLAIR burden by volume: Periventricular: 1.9 mL Juxtacortical: 0.3 mL, new count +2 Infratentorial: ? 0.05 mL Deep white matter: 2.4 mL, new count +3 Total load: 4.6 mL, percentile 25. New count +5 (0.23 mL), enlarging +14%(0.65 mL). T1 hypointensities volume:1.5 mL, new count +1 Head size normalization factor 0.65. Whole brain volume: 1536 mL, percentile 79 (change -6). Annualized volume change: -0.35%, normal annualized volume change: -0.26%. Simmons matter volume: 833 mL, percentile 5 (change +3). Annualized volumechange: -0.11%, normal annualized volume change: -0.25%. There is no mass effect, midline shift, or effacement of the basalcisterns. There is no acute or subacute infarct. There is a chronic infarct with encephalomalacia in the posterior left frontal lobe which is unchanged.There is global prominence of the ventricles and sulci reflecting volume loss. No abnormal extra-axial fluid collections are seen. The expected major intracranial flow voids are present. EXTRACRANIAL SOFT TISSUES: Orbits are unremarkable, with right lensextraction noted. Paranasal sinuses and mastoids are unremarkable. BONES: Marrow signal is preserved. IMPRESSION: No change in multiple white matter lesions consistent with the history of multiple sclerosis. No evidence of progressive disease. WSN: [id number] Ordering Physician: Kenneth Carter Electronically Signed By: Danielle Larsen MD us Kenneth Carter MD PhD IMG MRI PROCEDURES Angle l Result from Last 3 Months Insurance [facility] [place] [id number] Care Teams Software Test Technician Relationship Specialty Start Date End Date Martin Green [address] [place] [phone] PCP - General Internal Medicine 10/08/18
--- OUTSIDE RECORDS SUMMARY | 2025-04-16 20:58 | XMS_ITS | Encounter Summary ---
Author Organization [facility] Address [address] [place] [address] [address] [place] [address] Phone Care Team Providers Care Milling Machine Tender Name Role Phone Noe Mccann MD Unavailable Unavailable Audra Gutierrez MD Unavailable [phone] Edouard Mosley MD Unavailable Nara Tejada MD Unavailable [phone] Jose Thomas MD Unavailable [phone] Trish Hammonds MD Unavailable [phone] Celina He DPEvelin Unavailable [phone] Elizabeth Goode MD Unavailable [phone] Maritn Green MD Primary Care Provider [phone] Griselda Bello NP Primary Care Provider + [phone] Reason for Referral * MRI/CAT Scan - Closed Specialty Diagnoses / Procedures Referred By Contcaleb t Referred To Contact Radiology Diagnoses Pain Procedures CT Abdomen/Pelvis CHG CT SCAN,ABDOMENT AND PELVIS,W CONTRAST Ramiro Bal PA-C Phone: tel: fax: mailto:[email or web address] Referral ID Status Reason Start Date Expiration Date Visits Re quested Visits Authorized [id number] Closed 12/26/2023 12/26/2023 1 1 Encounter Details Date Type Department Care Team (Late st Contact Info) Description 12/26/2023 Ancillary Orders [facility] Emergency Department [address] [place] [address] Ramiro Bal PA-C [address] [place] [address] 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 documented as of this encounter Plan of Treatment Upcoming Encounters Date Type Department Care Team (Late st Contact Info) Description 04/28/2025 2:00 PM EST Office Visit [facility] [address], [address] [place] [phone] Minda Nelson DNP [address] [place] [phone] 07/29/2025 1:00 PM EST Office Visit [address] [facility], [address] [place] [address] Minda Nelson DNP [address] [place] [address], [address] [address] 08/31/2025 11:50 AM EDT Office Visit [facility] [address] [place] [address] Audra Gutierrez MD [address] [place] [phone] documented as of this encounter Results * CT ABDOMEN/PELVIS WITH CONTRAST (12/26/2023 9:15 PM EDT) Anatomical Region Laterality Modality Abdomen, Pelvis Computed Tomogra phy 12/26/2023 9:41 PM EDT Impressions 12/27/2023 8:45 PM EDT No acute abnormality in the abdomen or pelvis. Discussed by me with Didi Aguirre MD on 12/26/2023 10:28 PM ATTESTATION: Brock [facility], as teaching physician have reviewed the images, if any, for this patient's exam, and if necessary, have edited the report originally created by Anisa Mirza. Narrative 12/27/2023 8:45 PM EDT Referring clinician's provided indication for this examination in [facility]: * Abdominal pain, hernia suspected TECHNIQUE: Multidetector-row CT of the abdomen and pelvis was performed after administration of intravenous contrast using tailored dose modulation techniques. Images were reconstructed in the axial, coronal, and sagittal planes. COMPARISON: May 2023 FINDINGS: Lower Chest: No consolidation or pleural effusions. Liver: No focal lesions. Biliary: Status post cholecystectomy. No biliary ductal dilatation. Spleen: No splenomegaly. Unchanged 0.6 cm hypodensity in the superior spleen (3:105), likely benign. Pancreas: No masses or ductal dilatation. Adrenal Glands: No nodules. Kidneys/Ureters: Unchanged right lower pole cyst. No solid masses, stones, or hydronephrosis. Bowel: Prior appendectomy. Normal small bowel. Status post colectomy with colorectal anastomosis. Moderate colonic stool burden. No bowel obstruction or perforation. Peritoneum/Retroperitoneum: No masses, pneumoperitoneum, or fluid. Lymph Nodes: No lymphadenopathy. Pelvic Organs/Bladder: No mass. Decompressed bladder. Hysterectomy. Vessels: Mild aortic atherosclerosis. No aortic aneurysm. Bones/Soft Tissues: Postsurgical changes of the anterior abdominal wall. Scattered subcutaneous calcified granulomas in the gluteal regions. Degenerative changes of the spine. Procedure Note Brock Sage MBBS - 12/27/2023 Referring clinician's provided indication for this examination in [facility]: *Abdominal pain, hernia suspected TECHNIQUE: Multidetector-row CT of the abdomen and pelvis was performedafter administration of intravenous contrast using tailored dosemodulation techniques. Images were reconstructed in the axial, coronal,and sagittal planes. COMPARISON: May 2023 FINDINGS: Lower Chest: No consolidation or pleural effusions. Liver: No focal lesions. Biliary: Status post cholecystectomy. No biliary ductal dilatation. Spleen: No splenomegaly. Unchanged 0.6 cm hypodensity in the superiorspleen (3:105), likely benign. Pancreas: No masses or ductal dilatation. Adrenal Glands: No nodules. Kidneys/Ureters: Unchanged right lower pole cyst. No solid masses,stones, or hydronephrosis. Bowel: Prior appendectomy. Normal small bowel. Status post colectomy withcolorectal anastomosis. Moderate colonic stool burden. No bowelobstruction or perforation. Peritoneum/Retroperitoneum: No masses, pneumoperitoneum, or fluid. Lymph Nodes: No lymphadenopathy. Pelvic Organs/Bladder: No mass. Decompressed bladder. Hysterectomy. Vessels: Mild aortic atherosclerosis. No aortic aneurysm. Bones/Soft Tissues: Postsurgical changes of the anterior abdominal wall.Scattered subcutaneous calcified granulomas in the gluteal regions.Degenerative changes of the spine. IMPRESSION: No acute abnormality in the abdomen or pelvis. Discussed by me with Didi Aguirre MD on 12/26/2023 10:28 PM ATTESTATION: Brock Cleveland, as teaching physician have reviewed theimages, if any, for this patient's exam, and if necessary, have edited thereport originally created by Anisa Mirza. us Ramiro Bal PA-C IMG CT ABD/PELVIS Final Re sult documented in this encounter Visit Diagnoses Diagnosis Pain- Primary Generalized pain Pain Generalized pain documented in this encounter Additional Health Concerns [...] documented as of this encounter Care Teams Milling Machine Tender Relationship Specialty Start Date End Date Martin Green MD [address] [place] [phone] [email or web address] PCP - General Internal Medicine 05/26/23 01/25/25 Griselda Bello, GAEL [address] [place] [address] PCP - General Nurse Practitioner 01/26/25 Noe Mccann MD Ophthalmology 02/11/19 Audra Gutierrez MD [address] [place] [address] [email or web address] Intensive Care 02/11/19 Edouard Mosley MD [address] [place] [address] [email or web address] Plastic and Reconstructive Surgery 02/11/19 Nara Tejada MD [address] [place] [address], [address] [place] [address] [email or web address] Consulting Provider Nephrology 02/11/19 Jose Thomas MD [address] [place] [address] [email or web address] Consulting Provider Infectious Diseases 02/11/19 Trish Hammonds MD [address] [place] [address], [address] [place] [address] Rheumatology 02/11/19 Celina He DPM [address] [place] [address], [address] [place] [address] [email or web address] Podiatry 02/11/19 Elizabeth Goode MD [address] [facility] [address] [place] [address] Psychologist 03/27/20 documented as of this encounter Additional Source Comments The information contained in this document represents components of the legal health record. It is not the complete legal health record.[facility]
--- OUTSIDE RECORDS SUMMARY | 2025-04-16 20:58 | XMS_ITS | Encounter Summary ---
Author Organization [facility] Address [address] [place] [address] [place] [address] Phone Care Team Providers Care 911 Operator Name Role Phone Olvin Harvey MD Unavailable [phone] Martin Green MD Primary Care Provider +[phone] Martin Bales MD Unavailable Jose Gallagher MD Unavailable [phone] Ramiro Schmidt MD Unavailable Enio Starkey MD Unavailable Kenneth Carter MD Unavailable Noe Mccann MD Unavailable Unavailable Audra Gutierrez MD Unavailable Edouard Mosley MD Unavailable Martin Green MD Primary Care Provider +[phone] Nara Tejada MD Unavailable Jose Thomas MD Unavailable [phone] Trish Hammonds MD Unavailable Celina He DPM Unavailable Olvin Harvey MD Unavailable [phone] Fabián Seaman MD Unavailable [phone] Elizabeth Goode MD Unavailable [phone] Martin Green MD Primary Care Provider + Martin Green MD Primary Care Provider + Griselda Bello NP Primary Care Provider [phone] Reason for Referral * MRI/CAT Scan - Closed Specialty Diagnoses / Procedures Referred By Contac t Referred To Contact Procedures CT Chest Outside (No Interpretation) System, Provider Not In, [facility] [address] [place] [address] Referral ID Status Reason Start Date Expiration Date Visits Re quested Visits Authorized [id number] Closed 12/16/2018 12/16/2019 1 1 Encounter Details Date Type Department Care Team (Late Contact Info) Description 12/16/2018 Ancillary Orders [facility],Outside Imaging [address] [place] [address] System, Provider Not In, [facility] [address] [place] [address] Social History Tobacco Use Types Packs/Day Years [...] 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 documented as of this encounter Plan of Treatment Upcoming Encounters Date Type Department Care Team (Late st Contact Info) Description 04/28/2025 2:00 PM EST Office Visit [facility] [address] [place] [address] 3rd Floor, [address] [place] [address] Minda Nelson DNP 22 [facility], [address] [place] [address] [email or web address] 07/29/2025 1:00 PM EST Office Visit [facility] 22 [facility] 3rd Floor, [address] [place] [address] Minda Nelson DNP 22 [facility], [address] [place] [address] 08/31/2025 11:50 AM EDT Office Visit [facility] [address] [place] [address] Audra Gutierrez MD [address] [place] [address] documented as of this encounter Results * CT Chest Outside (No Interpretation) (12/15/2018 12:00 AM EDT) Narrative SYSTEMGENERATED, DOCUMENTATION - 12/16/2018 3:21 PM EDT This study is for PACS [...] documented as of this encounter Care Teams 911 Operator Relationship Specialty Start Date End Date Martin Green MD [address] [address] [email or web address] PCP - General Internal Medicine 10/05/18 02/10/19 Martin Green MD [address] [address] [email or web address] PCP - General Internal Medicine 02/11/19 04/11/20 Martin Green MD [address] [address] [email or web address] PCP - General Internal Medicine 04/12/20 05/25/23 Martin Green MD [address] [place] [phone] [email or web address] PCP - General Internal Medicine 05/26/23 01/25/25 Griselda Bello NP [address] [place] [address] PCP - General Nurse Practitioner 01/26/25 Olvin Harvey MD 22 [facility] 1 [place] [address] [email or web address] Insurance Assigned Provider 04/12/17 02/10/19 Martin Bales MD [address] [place] [address] [email or web address] Gastroenterology 10/07/18 11/13/20 Jose Gallagher MD [address] [place] [address], [address] [place] [address] Urology 10/07/18 11/13/20 Ramiro Schmidt MD [address] [place] [address], [address] [place] [address] Endocrinology 02/11/19 11/13/20 Enio Starkey MD [address] [place] [address], [address] [place] [address] [email or web address] Cardiology 02/11/19 11/13/20 Kenneth Carter MD [address] [place] [address] Neurology 02/11/19 11/13/20 Noe Mccann MD Ophthalmology 02/11/19 Audra Gutierrez MD [address] [place] [address] 2nd [place] [address] [email or web address] Intensive Care 02/11/19 Edouard Mosley MD [address] [place] [address], [address] [place] [address] [email or web address] Plastic and Reconstructive Surgery 02/11/19 Nara Tejada MD [address] [place] [address], 3 [place] [address] [email or web address] Consulting Provider Nephrology 02/11/19 Jose Thomas MD [address] [place] [address] [email or web address] Consulting Provider Infectious Diseases 02/11/19 Trish Hammonds MD 22 [facility], [facility] 203 [place] [address] [email or web address] Rheumatology 02/11/19 Celina He DPM 22 [facility], [address] [place] [address] [email or web address] Podiatry 02/11/19 Olvin Harvey MD 22 [facility] Floor 1 [place] [address] [email or web address] Insurance Assigned Provider 04/12/17 03/06/19 Fabián Seaman MD [address] [place] [address], [address] [place] [address] [email or web address] Insurance Assigned Provider 03/06/19 07/09/19 Elizabeth Goode MD [address] [place] [address] [address] [place] [address] Psychologist 03/27/20 documented as of this encounter Additional Source Comments The information contained in this document represents components of the legal health record. It is not the complete legal health record.[facility]
--- OUTSIDE RECORDS SUMMARY | 2025-04-16 20:58 | XMS_ITS | Encounter Summary ---
Author Organization [facility] Address [address] [facility] [address] [place] [address] Phone Care Team Providers Care Electrical Controls Assembler Name Role Phone Olvin Harvey MD Primary Care Provide r Olvin Harvey MD Unavailable [phone] Chelsy MclaughlinW Unavailable [email or web address] Ema Dumas DO Primary Care Provider Krissy Hernandez Primary Care Pro vider Martin Green MD Primary Care Provider [phone] Martin Bales MD Unavailable Jose Gallagher MD Unavailable [phone] Ramiro Schmidt MD Unavailable Enio Starkey MD Unavailable [phone] Kenneth Carter MD Unavailable [phone] Noe Mccann MD Unavailable Unavailable Audra Gutierrez MD Unavailable Edouard Mosley MD Unavailable Martin Green MD Primary Care Provider + Nara Tejada MD Unavailable [phone] Jose Thomas MD Unavailable + [phone] Trish Hammonds MD Unavailable [phone] PayamcharCelina DPM Unavailable [phone] Olvin Harvey MD Unavailable [phone] Fabián Seaman MD Unavailable +[phone] Elizabeth Goode MD Unavailable [phone] Martin Green MD Primary Care Provider + Martin Green MD Primary Care Provider + Griselda Bello BARREL CUTTER Primary Care Provider [phone] Encounter Details Date Type Department Care Team (Latest Contact Info) Description 10/01/2017 Transcribe Orders [facility] Phleb Main [address] [place] [address] Jose Gallagher MD [facility], [address] [place] [address] [email or web address] Urinary frequency (Primary Dx) Social History Tobacco Use Types [...] 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 documented as of this encounter Plan of Treatment Upcoming Encounters Date Type Department Care Team (Late st Contact Info) Description 04/28/2025 2:00 PM EST Office Visit [facility] [address] 3[address] Floor, [address] [place] [address] Minda Nelson DNP 22 [facility], [address] [place] [address] 07/29/2025 1:00 PM EST Office Visit [facility] [address] 3rd Floor, [address] [place] [address] Minda Nelson DNP 22 [facility], [address] [place] [address] 08/31/2025 11:50 AM EDT Office Visit [facility] 10 [facility] [place] [address] Audra Gutierrez MD [address] [address] documented as of this encounter Results * (ABNORMAL) Urine culture (10/01/2017 11:27 AM EDT) Specimen Source/ Description URINE URINE URINE [facility] Special Requests None [facility] GRAM STAIN Many WBC'S , Rare GRAM NEGATIVE RODS [facility] Culture/Test >100,000 colony forming units per ml ESCHERICHIA COLI(A) [facility] Report Status 10/03/2017 FINAL [facility] ORGANISM ESCHERICHIA COLI [facility] Urine (Urine) 10/01/2017 11: 27 AM EDT 10/01/2017 11:34 AM EDT Narrative Organism Antibiotic Method Susceptibility Escherichia coli Ampicillin [facility] METHOD 8: Susceptible Escherichia coli Amoxicillin-clavulanate [facility] METHO D <=2: Susceptible Escherichia coli Ampicillin-sulbactam [facility] METHOD 4: Susceptible Escherichia coli Cefazolin [facility] METHOD <=4: Susceptible Escherichia coli Cefepime [facility] METHOD <=1: Susceptible Escherichia coli Ceftazidime [facility] METHOD <=1: Susceptible Escherichia coli Ceftriaxone [facility] METHOD <=1: Susceptible Escherichia coli Ciprofloxacin [facility] METHOD >=4: Resistant Escherichia coli Extended Spectrum B-lactamase [facility] METHOD Negative Escherichia coli Gentamicin [facility] METHOD <=1: Susceptible Escherichia coli Levofloxacin [facility] METHOD >=8: Resistant Escherichia coli Nitrofurantoin [facility] METHOD <=16: Susceptible Escherichia coli Piperacillin-tazobactam [facility] METHO D <=4: Susceptible Escherichia coli Trimethoprim/sulfame thoxaz ole [facility] METHOD >=320: Resistant Comment:>100,000 colony form ing units per ml ESCHERICHIA COLI Jose Gallagher MD LAB MICROBIOLOGY CULTURE ORDER DARY Final Result Performing Organization Address [facility] de Phone Number [address] [address] * (ABNORMAL) Urinalysis with sediment (10/01/2017 11:27 AM EDT) WBC TOO NUMEROUS TO COUNT(A) NONE SEEN /hpf [facility] RBC 0-2(A) NONE SEEN /hpf [facility] URINE EPITHELIAL 0-4(A) NONE SEEN [facility] MUCUS NONE SEEN NONE SEEN /hpf [facility] BACTERIA 2+(A) NONE SEEN [facility] COLOR Yellow Yellow [facility] CLARITY Clear [facility] GLUCOSE Negative Negative [facility] BILI Negative Negative [facility] KETONES Negative Negative [facility] SPECIFIC GRAVITY >1.030 1.005 - 1.030 [facility] BLOOD 3+(A) Negative [facility] PH 6.0 5.0 - 8.0 [facility] Protein-UA 3+(A) Negative [facility] NITRITE Negative Negative [facility] Leukocyte esterase, ur 1+(A) Negative [facility] Urine (Urine) 10/01/2017 11: 27 AM EDT 10/01/2017 11:35 AM EDT Jose Gallagher MD LAB URINE ORDERABLES Final Res ult Performing Organization Address [facility] Co de Phone Number [address] [address] documented in this encounter Visit Diagnoses Diagnosis Urinary frequency- Primary documented in this encounter Additional Health [...] documented as of this encounter Care Teams Electrical Controls Assembler Relationship Specialty Start Date End Date Olvin Harvey MD 22 [facility] 1 [place] [address] [email or web address] PCP - General 12/07/13 06/11/18 Ema Kaufman DO [address] [place] [address] [email or web address] PCP - General 06/12/18 09/22/18 Krissy Hernandez PA [address] [place] [address] [email or web address] PCP - General Internal Medicine 09/23/18 10/04/18 Martin Green MD [address] [place] [address] [email or web address] PCP - General Internal Medicine 10/05/18 02/10/19 Martin Green MD [address] [place] [address] [email or web address] PCP - General Internal Medicine 02/11/19 04/11/20 Martin Green MD [address] [place] [address] [email or web address] PCP - General Internal Medicine 04/12/20 05/25/23 Martin Green MD [address] [place] [phone] [email or web address] PCP - General Internal Medicine 05/26/23 01/25/25 Griselda Bello NP [address] [place] [address] PCP - General Nurse Practitioner 01/26/25 Olvin Harvey MD [address] [place] [address] [email or web address] Insurance Assigned Provider 04/12/17 02/10/19 Chelsy Mclaughlin, HYDRAULIC MODELING ENGINEER 22 [facility] 1 [place] [address] [email or web address] Retailer 08/08/17 07/05/18 Martin Bales MD [address] [place] [address] [email or web address] Gastroenterology 10/07/18 11/13/20 Jose Gallagher MD [address] [place] [address], [address] [address] [email or web address] Urology 10/07/18 11/13/20 Ramiro Schmidt MD [address] [place] [address], [address] [address] [email or web address] Endocrinology 02/11/19 11/13/20 Enio Starkey MD [address] [place] [address], [address] [address] [email or web address] Cardiology 02/11/19 11/13/20 Kenneth Carter MD [address] [place] [address] Neurology 02/11/19 11/13/20 Noe Mccann MD Ophthalmology 02/11/19 Audra Gutierrez MD [address] [place] [address] [email or web address] Intensive Care 02/11/19 Edouard Mosley MD [address] [place] [address], [address] [place] [address] [email or web address] Plastic and Reconstructive Surgery 02/11/19 Nara Tejada MD [address] [place] [address], [address] [place] [address] [email or web address] Consulting Provider Nephrology 02/11/19 Jose Thomas MD [address] [place] [address] [email or web address] Consulting Provider Infectious Diseases 02/11/19 Trish Hammonds MD [address] [place] [address], [address] [place] [address] [email or web address] Rheumatology 02/11/19 Celina He DPM [address] [place] [address], [address] [place] [address] [email or web address] Podiatry 02/11/19 Olvin Harvey MD 22 [facility] Floor 1 [place] [address] [email or web address] Insurance Assigned Provider 04/12/17 03/06/19 Fabián Seaman MD [address] [place] [address], [address] [place] [address] [email or web address] Insurance Assigned Provider 03/06/19 07/09/19 Elizabeth Goode MD [address] [place] [address] Psychologist 03/27/20 documented as of this encounter Additional Source Comments The information contained in this document represents components of the legal health record. It is not the complete legal health record.[facility]
--- OUTSIDE RECORDS SUMMARY | 2025-04-16 20:58 | XMS_ITS | Encounter Summary ---
Author Organization [facility] Address [address] [facility] [address] [place] [address] Phone Care Team Providers Care Violent Crimes Detective Name Role Phone Olvin Harvey MD Primary Care Provide r Olvin Harvey MD Unavailable [phone] Chelsy MclaughlinW Unavailable [email or web address] Ema Dumas DO Primary Care Provider Krissy Hernandez Primary Care Pro vider Martin Green MD Primary Care Provider [phone] Martin Bales MD Unavailable Jose Gallagher MD Unavailable [phone] Ramiro Schmidt MD Unavailable [phone] Enio Starkey MD Unavailable [phone] Kenneth Carter MD Unavailable Noe Mccann MD Unavailable Unavailable Audra Gutierrez MD Unavailable [phone] Edouard Mosley MD Unavailable Martin Green MD Primary Care Provider + Nara Tejada MD Unavailable [phone] Jose Thomas MD Unavailable + [phone] Trish Hammonds MD Unavailable [phone] PayamcharCelina DPM Unavailable [phone] Olvin Harvey MD Unavailable [phone] Fabián Seaman MD Unavailable +58 Elizabeth Goode MD Unavailable [phone] Martin Green MD Primary Care Provider + Martin Green MD Primary Care Provider +[phone] Griselda Bello NP Primary Care Provider [phone] Encounter Details Date Type Department Care Team (Late Contact Info) Description 10/28/2017 Transcribe Orders [facility] [address] [place] [address] Audra Gutierrez MD [address] [place] [phone] [email or web address] Social History Tobacco Use Types Packs/Day Years [...] 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 file documented as of this encounter Plan of Treatment Upcoming Encounters Date Type Department Care Team (Late Contact Info) Description 04/28/2025 2:00 PM EST Office Visit [facility] [address] [place] [address] 3rd Floor, [address] [place] [address] Minda Nelson, ESTRELLITA 22 [facility], [address] [address] 07/29/2025 1:00 PM EST Office Visit [facility] 22 [place] [facility] 3rd [facility], [address] [place] [address] Minda Nelson, ESTRELLITA 22 [facility], [address] [address] 08/31/2025 11:50 AM EDT Office Visit [facility] 10 [place] [address] Audra Gutierrez MD [address] [place] [address] documented as of this encounter Visit Diagnoses [...] documented as of this encounter Care Teams Violent Crimes Detective Relationship Specialty Start Date End Date Olvin Harvey MD 22 [facility] 1 [place] [address] [email or web address] PCP - General 12/07/13 06/11/18 Ema Kaufman DO [address] [place] [address] [email or web address] PCP - General 06/12/18 09/22/18 Krissy Hernandez PA [address] [place] [address] [email or web address] PCP - General Internal Medicine 09/23/18 10/04/18 Martin Green MD [address] [place] [address] [email or web address] PCP - General Internal Medicine 10/05/18 02/10/19 Martin Green MD [address] [place] [address] [email or web address] PCP - General Internal Medicine 02/11/19 04/11/20 Martin Green MD [address] [place] [address] [email or web address] PCP - General Internal Medicine 04/12/20 05/25/23 Martin Green MD [address] [place] [phone] [email or web address] PCP - General Internal Medicine 05/26/23 01/25/25 Griselda Bello NP [address] [place] [address] PCP - General Nurse Practitioner 01/26/25 Olvin Harvey MD [address] [address] [email or web address] Insurance Assigned Provider 04/12/17 02/10/19 Chelsy Mclaughlin [facility] [address] [address] [email or web address] [email or web address] Specialist 08/08/17 07/05/18 Martin Bales MD [address] [place] [address] [email or web address] Gastroenterology 10/07/18 11/13/20 Jose Gallagher MD [address] [place] [address], [address] [address] [email or web address] Urology 10/07/18 11/13/20 Ramiro Schmidt MD [address] [place] [address], [address] [place] [address] [email or web address] Endocrinology 02/11/19 11/13/20 Enio Starkey MD [address] [place] [address], [address] [place] [address] [email or web address] Cardiology 02/11/19 11/13/20 Kenneth Carter MD [address] [place] [address] Neurology 02/11/19 11/13/20 Noe Mccann MD Ophthalmology 02/11/19 Audra Gutierrez MD [address] [place] [address] [email or web address] Intensive Care 02/11/19 Edouard Mosley MD [address] [place] [address], [address] [address] [email or web address] Plastic and Reconstructive Surgery 02/11/19 Nara Tejada MD [address] [place] [address], [address] [place] [address] [email or web address] Consulting Provider Nephrology 02/11/19 Jose Thomas MD [address] [place] [address] [email or web address] Consulting Provider Infectious Diseases 02/11/19 Trish Hammonds MD [address] [place] [address], [address] [place] [address] Rheumatology 02/11/19 Celina He DPM 22 [facility], [address] [place] [address] [email or web address] Podiatry 02/11/19 Olvin Harvey MD 22 [facility] Floor 1 [place] [address] [email or web address] Insurance Assigned Provider 04/12/17 03/06/19 Fabián Seaman MD 22 [facility], [address] [place] [address] [email or web address] Insurance Assigned Provider 03/06/19 07/09/19 Elizabeth Goode MD [address] [place] [address] 200 [place] [address] Psychologist 03/27/20 documented as of this encounter Additional Source Comments The information contained in this document represents components of the legal health record. It is not the complete legal health record.[facility]
--- OUTSIDE RECORDS SUMMARY | 2025-04-16 20:58 | XMS_ITS | Encounter Summary ---
Author Organization [facility] Address [address] [place] [address] [address] [place] [address] Phone Care Team Providers Care Railway Switch Operator Name Role Phone Noe Mccann MD Unavailable Unavailable Audra Gutierrez MD Unavailable Edouard Mosley MD Unavailable Nara Tejada MD Unavailable [phone] Jose Thomas MD Unavailable [phone] Trish Hammonds MD Unavailable [phone] Celina He DPM Unavailable [phone] Elizabeth Goode MD Unavailable [phone] Maritn Green MD Primary Care Provider [phone] Martin Green MD Primary Care Provider [phone] Griselda Bello NP Primary Care Provider [phone] Encounter Details Date Type Department Care Team (Late st Contact Info) Description 04/18/2023 Telephone CD Pulmonary, Allergy and Critical Care Medicine [address] [place] [address] [place] [address] Katina Salazar MA [email or web address] Social History Tobacco Use Types Packs/Day Years Used Date Smoking Tobacco: Former Cigarettes 2 45 1 966 - 2011 Smokeless Tobacco: Never Alcohol Use Standard Drinks/Week Comments No 0 (1 standard drink = 0.6 oz pur e alcohol) Home Health Assessment: Transportation Answer Date Recorded Lack of Transportation (Medical) No 09/13/2022 Lack of Transportation (Non-Medical) No 09/13/2022 Patient Unable or Declines to Respond No 09/13/2022 Education Answer Date Recorded Are you interested in more education? Not on lucius e 10/04/2022 Are you concerned about learning? Not on file 10/04/2022 No 10/04/2022 No 10/04/2022 Digital Access Answer Date Recorded No 10/30/2022 No 10/30/2022 Reliable internet access at home? Not on file 10/30/2022 Device with a working camera? 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 Not on file documented as of this encounter Plan of Treatment Upcoming Encounters Date Type Department Care Team (Late st Contact Info) Description 04/28/2025 2:00 PM EST Office Visit [facility] [address] [place] [address] 3rd [facility], [address] [place] [address] Minda Nelson DNP [address] [place] [address] 07/29/2025 1:00 PM EST Office [facility], [address] [place] [address] Minda Nelson DNP [address] [place] [address] 08/31/2025 11:50 AM EDT Office Visit [facility] Pulmonary, Allergy and Critical Care Medicine 10 [place] [address] Audra Gutierrez MD [address] [address] documented as of this encounter Visit Diagnoses [...] documented as of this encounter Care Teams Railway Switch Operator Relationship Specialty Start Date End Date Martin Green MD [address] [place] [address] [email or web address] PCP - General Internal Medicine 04/12/20 05/25/23 Martin Green MD [address] [place] [phone] [email or web address] PCP - General Internal Medicine 05/26/23 01/25/25 Griselda Bello, GAEL [address] [place] [address] PCP - General Nurse Practitioner 01/26/25 Noe Mccann MD Ophthalmology 02/11/19 Audra Gutierrez MD [address] [place] [address] 2nd [place] [address] [email or web address] Intensive Care 02/11/19 Edouard Mosley MD [address] [place] [address], [facility] 202 [place] [address] [email or web address] Plastic and Reconstructive Surgery 02/11/19 Nara Tejada MD [address] [place] [address], 3 [place] [address] [email or web address] Consulting Provider Nephrology 02/11/19 Jose Thomas MD [address] [place] [address] [email or web address] Consulting Provider Infectious Diseases 02/11/19 Trish Hammonds MD [address] [place] [address], [address] [place] [address] [email or web address] Rheumatology 02/11/19 Celina He DPM [address] [place] [address], [address] [place] [address] Podiatry 02/11/19 Elizabeth Goode MD 301 [facility] 200 [place] [address] Psychologist 03/27/20 documented as of this encounter Additional Source Comments The information contained in this document represents components of the legal health record. It is not the complete legal health record.[facility]
--- OUTSIDE RECORDS SUMMARY | 2025-04-16 20:58 | XMS_ITS | Encounter Summary ---
Author Organization [facility] Address [address] [facility] [address] [place] [address] Phone Care Team Providers Care Oil Agent Name Role Phone Martin Bales MD Unavailable Jose Gallagher MD Unavailable [phone] Ramiro Schmidt MD Unavailable Enio Starkey MD Unavailable [phone] Kenneth Carter MD Unavailable Noe Mccann MD Unavailable Unavailable Audra Gutierrez MD Unavailable Edouard Mosley MD Unavailable Nara Tejada MD Unavailable Jose Thomas MD Unavailable [phone] Trish Hammonds MD Unavailable [phone] Celina He DPM Unavailable Elizabeth Goode MD Unavailable [phone] Martin Green MD Primary Care Provider [phone] Martin Green MD Primary Care Provider Griselda Bello NP Primary Care Provider [phone] Encounter Details Date Type Department Care Team (Late Contact Info) Description 06/20/2020 Transcribe Orders Virtual Department 30 [place] [address] Martin Green MD [address] [place] [address] Encounter for laboratory testing for COVID-19 virus [...] 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 Not on file documented as of this encounter Plan of Treatment Upcoming Encounters Date Type Department Care Team (Late Contact Info) Description 04/28/2025 2:00 PM EST Office Visit [facility] [address] [place] [address], [address] [address] Minda Nelson DNP [address] [place] [address] 07/29/2025 1:00 PM EST Office Visit [facility] [address] [place] [address], [address] [address] Minda Nelson DNP [address] [place] [address] 08/31/2025 11:50 AM EDT Office Visit [facility] Pulmonary, Allergy and Critical Care Medicine [address] [place] [address] Audra Gutierrez MD 10 [facility] 2nd [place] [address] [email or web address] documented as of this encounter Results * COVID-19 PCR Order (06/30/2020 9:02 AM EST) COVID Testing Status Sent to [facility] Symptomatic? NO [facility] 06/30/2020 9:02 AM EST 06/30/2020 5:53 PM EST us Martin Green MD LAB GENERAL ORDERABLES Final Re sult [facility] [address] [place] [address] documented in this encounter Visit Diagnoses Diagnosis [...] documented as of this encounter Care Teams Oil Agent Relationship Specialty Start Date End Date Martin Green MD [address] [place] [address] [email or web address] PCP - General Internal Medicine 04/12/20 05/25/23 Martin Green MD [address] [place] [phone] [email or web address] PCP - General Internal Medicine 05/26/23 01/25/25 Griselda Bello NP [address] [place] [address] PCP - General Nurse Practitioner 01/26/25 Martin Bales MD [address] [place] [address] [email or web address] Gastroenterology 10/07/18 11/13/20 Jose Gallagher MD [address] [place] [address], [address] [address] [email or web address] Urology 10/07/18 11/13/20 Ramiro Schmidt MD [address] [place] [address], [address] [address] [email or web address] Endocrinology 02/11/19 11/13/20 Enio Starkey MD [address] [facility], [address] [place] [address] [email or web address] Cardiology 02/11/19 11/13/20 Kenneth Carter MD [address] [place] [address] Neurology 02/11/19 11/13/20 Noe Mccann MD Ophthalmology 02/11/19 Audra Gutierrez MD [address] [place] [address] [email or web address] Intensive Care 02/11/19 Edouard Mosley MD [address] [place] [address] [email or web address] Plastic and Reconstructive Surgery 02/11/19 Nara Tejada MD [address] [place] [address], [address] [place] [address] [email or web address] Consulting Provider Nephrology 02/11/19 Jose Thomas MD [address] [place] [address] [email or web address] Consulting Provider Infectious Diseases 02/11/19 Trish Hammonds MD [address] [place] [address], [address] [place] [address] [email or web address] Rheumatology 02/11/19 Celina He DPM [address] [place] [address], [address] [place] [address] [email or web address] Podiatry 02/11/19 Elizabeth Goode MD 301 [facility] 200 [place] [address] Psychologist 03/27/20 documented as of this encounter Additional Source Comments The information contained in this document represents components of the legal health record. It is not the complete legal health record.[facility]
--- OUTSIDE RECORDS SUMMARY | 2025-04-16 20:58 | XMS_ITS | Encounter Summary ---
Author Organization [facility] Address [address] [facility] [address] [place] [address] Phone Care Team Providers Care Machine Sweeper Brush Maker Name Role Phone Olvin Harvey MD Primary Care Provide r Olvin Harvey MD Unavailable [phone] Chelsy MclaughlinW Unavailable [email or web address] Ema Dumas DO Primary Care Provider Krissy Hernandez Primary Care Pro vider Martin Green MD Primary Care Provider [phone] Martin Bales MD Unavailable Jose Gallagher MD Unavailable [phone] Ramiro Schmidt MD Unavailable Enio Starkey MD Unavailable [phone] Kenneth Carter MD Unavailable [phone] Noe Mccann MD Unavailable Unavailable Audra Gutierrez MD Unavailable Edouard Mosley MD Unavailable Martin Green MD Primary Care Provider + Nara Tejada MD Unavailable [phone] Jose Thomas MD Unavailable + [phone] Trish Hammonds MD Unavailable [phone] PayamcharCelina DPM Unavailable [phone] Olvin Harvey MD Unavailable [phone] Fabián Seaman MD Unavailable [phone] Elizabeth Goode MD Unavailable [phone] Martin Green MD Primary Care Provider + Martin Green MD Primary Care Provider + Griselda Bello HOSTESS HOST Primary Care Provider [phone] Encounter Details Date Type Department Care Team (Latest Contact Info) Description 11/04/2017 Transcribe Orders [facility]leb Main [address] [place] [address] Jose Gallagher MD [facility], [address] [place] [address] [email or web address] Dysuria (Primary Dx) Social History Tobacco Use Types [...] 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 Not on file documented as of this encounter Plan of Treatment Upcoming Encounters Date Type Department Care Team (Late st Contact Info) Description 04/28/2025 2:00 PM EST Office Visit [facility] [address] 3[address] Floor, [address] [place] [address] Minda Nelson DNP 22 [facility], [address] [place] [address] 07/29/2025 1:00 PM EST Office Visit [facility] [address] 3rd Floor, [address] [place] [address] Minda Nelson DNP 22 [facility], [address] [place] [address] 08/31/2025 11:50 AM EDT Office Visit [facility] Pulmonary, Allergy and Critical Care Medicine 10 [facility] [place] [address] Audra Gutierrez MD [address] [address] documented as of this encounter Procedures Procedure Name Priority Date/Time Associated Diagnosis Comments URINE CULTURE Routine 11/04/2017 7:44 AM EDT Dysuria documented in this encounter Results * (ABNORMAL) Urinalysis with sediment (11/07/2017 2:00 PM EDT) WBC 0-4(A) NONE SEEN /hpf [facility] RBC 0-2(A) NONE SEEN /hpf [facility] URINE EPITHELIAL 0-4(A) NONE SEEN [facility] MUCUS 1+(A) NONE SEEN /hpf [facility] BACTERIA Trace(A) NONE SEEN [facility] CRYSTALS 2+ [facility] Comment:AMORPHOUS COLOR Yellow Yellow [facility] CLARITY Clear [facility] GLUCOSE Trace(A) Negative [facility] BILI Negative Negative [facility] KETONES Negative Negative [facility] SPECIFIC GRAVITY 1.015 1.005 - 1.030 [facility] BLOOD Negative Negative [facility] PH 7.0 5.0 - 8.0 [facility] Protein-UA Negative Negative [facility] NITRITE Negative Negative [facility] Leukocyte esterase, ur Negative Negative [facility] Urine (Urine) 11/07/2017 2:0 0 PM EDT 11/07/2017 4:25 PM EDT Jose Gallagher MD LAB URINE ORDERABLES Final Res ult Performing Organization Address [facility] Co de Phone Number [address] [address] * Urine culture (11/04/2017 7:44 AM EDT) Specimen Source/ Description URINE URINE URINE [facility] Special Requests None [facility] GRAM STAIN Rare GRAM POSITIVE RODS [facility] Culture/Test >100,000 colony forming units per ml MIXED IVAN (3 OR MORE COLONY TYPES) Culture indicates contamination . Please resubmit if necessary. [facility] Report Status 11/05/2017 FINAL [facility] Urine (Urine) 11/04/2017 7:4 4 AM EDT 11/04/2017 7:52 AM EDT Jose Gallagher MD LAB MICROBIOLOGY CULTURE ORDER DARY Final Result Performing Organization Address [facility] Co de Phone Number [address] [address] documented in this encounter Visit Diagnoses Diagnosis Dysuria- Primary documented in this encounter Additional Health [...] documented as of this encounter Care Teams Machine Sweeper Brush Maker Relationship Specialty Start Date End Date Olvin Harvey MD [address] [address] [email or web address] PCP - General 12/07/13 06/11/18 Ema Kaufman DO [address] [place] [address] [email or web address] PCP - General 06/12/18 09/22/18 Krissy Hernandez PA [address] [place] [address] [email or web address] PCP - General Internal Medicine 09/23/18 10/04/18 Martin Green MD [address] [place] [address] [email or web address] PCP - General Internal Medicine 10/05/18 02/10/19 Martin Green MD [address] [place] [address] [email or web address] PCP - General Internal Medicine 02/11/19 04/11/20 Martin Green MD [address] [place] [address] [email or web address] PCP - General Internal Medicine 04/12/20 05/25/23 Martin Green MD [address] [place] [phone] [email or web address] PCP - General Internal Medicine 05/26/23 01/25/25 Griselda Bello, GAEL [address] [place] [address] PCP - General Nurse Practitioner 01/26/25 Olvin Harvey MD [address] [address] [email or web address] Insurance Assigned Provider 04/12/17 02/10/19 Chelsy Mclaughlin REHABILITATION THERAPY TECHNICIAN 22 [facility] 1 [place] [address] [email or web address] 08/08/17 07/05/18 Martin Bales MD [address] [place] [address] [email or web address] Gastroenterology 10/07/18 11/13/20 Jose Gallagher MD [address] [place] [address], [address] [place] [address] [email or web address] Urology 10/07/18 11/13/20 Ramiro Schmidt MD [address] [place] [address], [address] [place] [address] [email or web address] Endocrinology 02/11/19 11/13/20 Enio Starkey MD [address] [place] [address], [address] [place] [address] [email or web address] Cardiology 02/11/19 11/13/20 Kenneth Carter MD [address] [place] [address] Neurology 02/11/19 11/13/20 Noe Mccann MD Ophthalmology 02/11/19 Audra Gutierrez MD [address] [place] [address] 2nd [place] [address] [email or web address] Intensive Care 02/11/19 Edouard Mosley MD [address] [place] [address], [address] [place] [address] [email or web address] Plastic and Reconstructive Surgery 02/11/19 Nara Tejada MD [address] [place] [address], [address] [place] [address] [email or web address] Consulting Provider Nephrology 02/11/19 Jose Thomas MD [address] [place] [address] [email or web address] Consulting Provider Infectious Diseases 02/11/19 Trish Hammonds MD 22 [facility], [address] [place] [address] [email or web address] Rheumatology 02/11/19 Celina He DPM [address] [facility], [address] [place] [address] [email or web address] Podiatry 02/11/19 Olvin Harvey MD 22 [facility] Floor 1 [place] [address] [email or web address] Insurance Assigned Provider 04/12/17 03/06/19 Fabián Seaman MD 22 [facility], [address] [place] [address] [email or web address] Insurance Assigned Provider 03/06/19 07/09/19 Elizabeth Goode MD [address] [place] [address] 200 [place] [address] Psychologist 03/27/20 documented as of this encounter Additional Source Comments The information contained in this document represents components of the legal health record. It is not the complete legal health record.[facility]
--- OUTSIDE RECORDS SUMMARY | 2025-04-16 20:58 | XMS_ITS | Encounter Summary ---
Author Organization [facility] Address [address] [place] [address] [place] [address] Phone Care Team Providers Care Balance Wheel Hand Filer Name Role Phone Olvin Harvey MD Unavailable [phone] Martin Green MD Primary Care Provider +[phone] Martin Bales MD Unavailable Jose Gallagher MD Unavailable [phone] Ramiro Schmidt MD Unavailable Enio Starkey MD Unavailable [phone] Kenneth Carter MD Unavailable Noe Mccann MD Unavailable Unavailable Audra Gutierrez MD Unavailable Edouard Mosley MD Unavailable Martin Green MD Primary Care Provider +[phone] Nara Tejada MD Unavailable Jose Thomas MD Unavailable [phone] Trish Hammonds MD Unavailable Celina He DPM Unavailable Olvin Harvey MD Unavailable [phone] Fabián Seaman MD Unavailable +[phone] Elizabeth Goode MD Unavailable [phone] Martin Green MD Primary Care Provider + Martin Green MD Primary Care Provider + Griselda Bello NP Primary Care Provider [phone] Encounter Details Date Type Department Care Team (Late st Contact Info) Description 10/05/2018 Procedure Pass [facility] Endoscopy Admitting Dept Virtual Department [address] [place] [address] Social History Tobacco Use Types Packs/Day Years [...] 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 file documented as of this encounter Plan of Treatment Upcoming Encounters Date Type Department Care Team (Late Contact Info) Description 04/28/2025 2:00 PM EST Office Visit [facility] [address] [place] [address] 3rd Floor, [address] [place] [address] Minda Nelson DNP [address] [place] [address], [address] [address] [email or web address] 07/29/2025 1:00 PM EST Office Visit [facility] [address] [place] [address] 3rd Floor, [address] [place] [address] Minda Nelson DNP [address] [place] [address], [address] [address] [email or web address] 08/31/2025 11:50 AM EDT Office Visit [facility] 10 [facility] [place] [address] Audra Gutierrez MD 10 [facility] 2nd [place] [address] [email or web address] documented as of this encounter Visit Diagnoses [...] documented as of this encounter Care Teams Balance Wheel Hand Filer Relationship Specialty Start Date End Date Martin Green MD [address] [address] [email or web address] PCP - General Internal Medicine 10/05/18 02/10/19 Martin Green MD [address] [address] [email or web address] PCP - General Internal Medicine 02/11/19 04/11/20 Martin Green MD [address] [address] [email or web address] PCP - General Internal Medicine 04/12/20 05/25/23 Martin Green MD 238 [place] [address] [email or web address] PCP - General Internal Medicine 05/26/23 01/25/25 Griselda Bello, GEAL 238 [place] [address] PCP - General Nurse Practitioner 01/26/25 Olvin Harvey MD [address] [address] [email or web address] Insurance Assigned Provider 04/12/17 02/10/19 Martin Bales MD [address] [place] [address] [email or web address] Gastroenterology 10/07/18 11/13/20 Jose Gallagher MD [address] [place] [address], [address] [place] [address] [email or web address] Urology 10/07/18 11/13/20 Ramiro Schmidt MD [address] [place] [address], [address] [place] [address] [email or web address] Endocrinology 02/11/19 11/13/20 Enio Starkey MD [address] [place] [address], [address] [place] [address] [email or web address] Cardiology 02/11/19 11/13/20 Kenneth Carter MD [address] [place] [address] Neurology 02/11/19 11/13/20 Noe Mccann MD Ophthalmology 02/11/19 Audra Gutierrez MD [address] [place] [address] 2nd [place] [address] [email or web address] Intensive Care 02/11/19 Edouard Mosley MD 40 [facility], [address] [place] [address] [email or web address] Plastic and Reconstructive Surgery 02/11/19 Nara Tejada MD [address] [place] [address], [address] [place] [address] [email or web address] Consulting Provider Nephrology 02/11/19 Jose Thomas MD [address] [place] [address] [email or web address] Consulting Provider Infectious Diseases 02/11/19 Trish Hammonds MD 22 [facility], [address] [place] [address] [email or web address] Rheumatology 02/11/19 Celina He DPM 22 [facility] 203 [place] [address] [email or web address] Podiatry 02/11/19 Olvin Harvey MD 22 [facility] Floor 1 [place] [address] [email or web address] Insurance Assigned Provider 04/12/17 03/06/19 Fabián Seaman MD 22 [facility], [address] [place] [address] [email or web address] Insurance Assigned Provider 03/06/19 07/09/19 Elizabeth Goode MD 301 [facility] 200 [place] [address] Psychologist 03/27/20 documented as of this encounter Additional Source Comments The information contained in this document represents components of the legal health record. It is not the complete legal health record.[facility]
--- OUTSIDE RECORDS SUMMARY | 2025-04-16 20:58 | XMS_ITS | Encounter Summary ---
Author Organization [facility] Address [address] [facility] [address] [place] [address] Phone Care Team Providers Care Passenger Service Representative Name Role Phone Olvin Harvey MD Primary Care Provide r Olvin Harvey MD Unavailable [phone] Chelsy MclaughlinW Unavailable [email or web address] Ema Dumas DO Primary Care Provider Krissy Hernandez Primary Care Pro vider Martin Green MD Primary Care Provider [phone] Martin Bales MD Unavailable Jose Gallagher MD Unavailable [phone] Ramiro Schmidt MD Unavailable Enio Starkey MD Unavailable [phone] Kenneth Carter MD Unavailable Noe Mccann MD Unavailable Unavailable Audra Gutierrez MD Unavailable Edouard Mosley MD Unavailable Martin Green MD Primary Care Provider + Nara Tejada MD Unavailable [phone] Jose Thomas MD Unavailable [phone]- [phone] Trish Hammonds MD Unavailable +[phone] Payamchar JoanAna Lima DPEvelin Unavailable +- [phone] Olvin Harvey MD Unavailable [phone] Fabián Seaman MD Unavailable +-[phone] Elizabeth Goode MD Unavailable [phone] Martin Green MD Primary Care Provider + Martin Green MD Primary Care Provider +[phone] Griselda Bello NP Primary Care Provider [phone] Encounter Details Date Type Department Care Team (Late st Contact Info) Description 10/17/2017 Procedure Pass [facility], Ct Scan - [address] [address] Social History Tobacco Use Types Packs/Day Years [...] 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 Not on file documented as of this encounter Plan of Treatment Upcoming Encounters Date Type Department Care Team (Late st Contact Info) Description 04/28/2025 2:00 PM EST Office Visit [facility] [address] [place] [address] 3rd Floor, [address] [place] [address] Minda Nelson, ESTRELLITA 22 [facility], [address] [place], [place] [address] [email or web address] 07/29/2025 1:00 PM EST Office Visit [facility] 22 [facility] 3rd Floor, [address] [place] [address] Minda Nelson, ESTRELLITA 22 [facility], [address] [place] [address] [email or web address] 08/31/2025 11:50 AM EDT Office Visit [facility] 10 [place] [address] Audra Gutierrez MD [address] [address] documented as of this encounter Visit Diagnoses [...] documented as of this encounter Care Teams Passenger Service Representative Relationship Specialty Start Date End Date Olvin Harvey MD 22 [facility] 1 [place] [address] [email or web address] PCP - General 12/07/13 06/11/18 Ema Kaufman DO 7[address] [place] [address] [email or web address] PCP - General 06/12/18 09/22/18 Krissy Hernandez PA 238 [place] [address] [email or web address] PCP - General Internal Medicine 09/23/18 10/04/18 Martin Green MD 238 [place] [address] [email or web address] PCP - General Internal Medicine 10/05/18 02/10/19 Martin Green MD 238 [place] [address] [email or web address] PCP - General Internal Medicine 02/11/19 04/11/20 Martin Green MD [address] [place] [address] [email or web address] PCP - General Internal Medicine 04/12/20 05/25/23 Martin Green MD 238 [place] [address] [email or web address] PCP - General Internal Medicine 05/26/23 01/25/25 Griselda Bello NP 238 [place] [address] PCP - General Nurse Practitioner 01/26/25 Olvin Harvey MD [address] [address] [email or web address] Insurance Assigned Provider 04/12/17 02/10/19 Chelsy Mclaughlin, [facility] 22 [facility] 1 [place] [address] [email or web address] PHCM Link Cutter 08/08/17 07/05/18 Martin Bales MD [address] [place] [address] [email or web address] Gastroenterology 10/07/18 11/13/20 Jose Gallagher MD [address] [place] [address], [address] [place] [address] [email or web address] Urology 10/07/18 11/13/20 Ramiro Schmidt MD [address] [place] [address], [address] [place] [address] Endocrinology 02/11/19 11/13/20 Enio Starkey MD 3640 [facility] [facility], [address] [place] [address] [email or web address] Cardiology 02/11/19 11/13/20 Kenneth Carter MD [address] [place] [address] Neurology 02/11/19 11/13/20 Noe Mccann MD Ophthalmology 02/11/19 Audra Gutierrez MD [address] [address] [email or web address] Intensive Care 02/11/19 Edouard Mosley MD [address] [place] [address], [facility] 202 [place] [address] [email or web address] Plastic and Reconstructive Surgery 02/11/19 Nara Tejada MD [address] [place] [address], [address] [place] [address] Consulting Provider Nephrology 02/11/19 Jose Thomas MD [address] [place] [address] [email or web address] Consulting Provider Infectious Diseases 02/11/19 Trish Hammonds MD [address] [place] [address], [address] [place] [address] [email or web address] Rheumatology 02/11/19 Celina He DPM 22 [facility], [address] [place] [address] [email or web address] Podiatry 02/11/19 Olvin Harvey MD 22 [facility] Floor 1 [place] [address] [email or web address] Insurance Assigned Provider 04/12/17 03/06/19 Fabián Seaman MD 22 [facility], [address] [place] [address] [email or web address] Insurance Assigned Provider 03/06/19 07/09/19 Elizabeth Goode MD [address] [place] [address] Psychologist 03/27/20 documented as of this encounter Additional Source Comments The information contained in this document represents components of the legal health record. It is not the complete legal health record.[facility]
--- OUTSIDE RECORDS SUMMARY | 2025-04-16 20:58 | XMS_ITS | Encounter Summary ---
Author Organization [facility] Address 399 [facility] [address] [place] [address] Phone Care Team Providers Care Inward Toll Operator Name Role Phone Olvin Harvey MD Primary Care Provide r Olvin Harvey MD Unavailable [phone] Chelsy MclaughlinW Unavailable [email or web address] Ema Dumas DO Primary Care Provider Krissy Hernandez Primary Care Pro vider Matrin Green MD Primary Care Provider [phone] Martin Bales MD Unavailable Jose Gallagher MD Unavailable [phone] Ramiro Schmidt MD Unavailable [phone] Enio Starkey MD Unavailable [phone] Kenneth Carter MD Unavailable Noe Mccann MD Unavailable Unavailable Audra Gutierrez MD Unavailable Edouard Mosley MD Unavailable Martin Green MD Primary Care Provider + Nara Tejada MD Unavailable [phone] Jose Thomas MD Unavailable +- [phone] Trish Hammonds MD Unavailable +[phone] Payamchar JoanAna Lima DPEvelin Unavailable +- [phone] Olvin Harvey MD Unavailable [phone] Fabián Seaman MD Unavailable +-[phone] Elizabeth Goode MD Unavailable [phone] Martin Green MD Primary Care Provider + Martin Green MD Primary Care Provider +[phone] Griselda Bello NP Primary Care Provider +[phone] Encounter Details Date Type Department Care Team (Late st Contact Info) Description 10/18/2017 Procedure Pass [facility], Ct Scan - [address] [address] Social History Tobacco Use Types Packs/Day Years [...] 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 Not on file Not on file documented as of this encounter Plan of Treatment Upcoming Encounters Date Type Department Care Team (Late st Contact Info) Description 04/28/2025 2:00 PM EST Office Visit [facility] [address] [place] [address] 3rd Floor, [address] [place] [address] Minda Nelson, ESTRELLITA 22 [facility], [address] [place], [place] [address] [email or web address] 07/29/2025 1:00 PM EST Office Visit [facility] 22 [facility] 3rd Floor, [address] [place] [address] Minda Nelson, ESTRELLITA 22 [facility], [address] [place] [address] [email or web address] 08/31/2025 11:50 AM EDT Office Visit [facility] 10 [place] [address] Audra Gutierrez MD [address] [address] documented as of this encounter Visit Diagnoses [...] documented as of this encounter Care Teams Inward Toll Operator Relationship Specialty Start Date End Date Olvin Harvey MD 22 [facility] 1 [place] [address] [email or web address] PCP - General 12/07/13 06/11/18 Ema Kaufman DO 759 [place] [address] [email or web address] PCP - General 06/12/18 09/22/18 Krissy Hernandez PA 238 [place] [address] [email or web address] PCP - General Internal Medicine 09/23/18 10/04/18 Martin Green MD 238 [place] [address] [email or web address] PCP - General Internal Medicine 10/05/18 02/10/19 Martin Green MD 238 [place] [address] PCP - General Internal Medicine 02/11/19 04/11/20 Martin Green MD [address] [place] [address] [email or web address] PCP - General Internal Medicine 04/12/20 05/25/23 Martin Green MD 238 [place] [address] [email or web address] PCP - General Internal Medicine 05/26/23 01/25/25 Griselda Bello NP 238 [place] [address] PCP - General Nurse Practitioner 01/26/25 Olvin Harvey MD [address] [address] [email or web address] Insurance Assigned Provider 04/12/17 02/10/19 Chelsy Mclaughlin, [facility] 22 [facility] 1 [place] [address] [email or web address] Bioprocess Engineer 08/08/17 07/05/18 Martin Bales MD [address] [place] [address] [email or web address] Gastroenterology 10/07/18 11/13/20 Jose Gallagher MD [address] [place] [address], [address] [place] [address] [email or web address] Urology 10/07/18 11/13/20 Ramiro Schmidt MD [address] [place] [address], [address] [place] [address] Endocrinology 02/11/19 11/13/20 Enio Starkey MD 3640 [facility], [address] [place] [address] [email or web address] Cardiology 02/11/19 11/13/20 Kenneth Carter MD [address] [place] [address] Neurology 02/11/19 11/13/20 Noe Mccann MD Ophthalmology 02/11/19 Audra Gutierrez MD [address] [address] [email or web address] Intensive Care 02/11/19 Edouard Mosley MD [address] [place] [address], [facility] 202 [place] [address] [email or web address] Plastic and Reconstructive Surgery 02/11/19 Nara Tejada MD [address] [place] [address], [address] [place] [address] Consulting Provider Nephrology 02/11/19 Jose Thomas MD [address] [place] [address] [email or web address] Consulting Provider Infectious Diseases 02/11/19 Trish Hammonds MD [address] [place] [address], [address] [place] [address] [email or web address] Rheumatology 02/11/19 Celina He DPM 22 [facility], [address] [place] [address] [email or web address] Podiatry 02/11/19 Olvin Harvey MD 22 [facility] Floor 1 [place] [address] [email or web address] Insurance Assigned Provider 04/12/17 03/06/19 Fabián Seaman MD 22 [facility], [address] [place] [address] [email or web address] Insurance Assigned Provider 03/06/19 07/09/19 Elizabeth Goode MD [address] [place] [address] Psychologist 03/27/20 documented as of this encounter Additional Source Comments The information contained in this document represents components of the legal health record. It is not the complete legal health record.[facility]
--- OUTSIDE RECORDS SUMMARY | 2025-04-16 20:58 | XMS_ITS | Encounter Summary ---
Author Organization [facility] Address [address] [facility] [address] [place] [address] Phone Care Team Providers Care Sdet Name Role Phone Noe Mccann MD Unavailable Unavailable Audra Gutierrez MD Unavailable Edouard Mosley MD Unavailable Nara Tejada MD Unavailable [phone] Jose Thomas MD Unavailable [phone] Trish Hammonds MD Unavailable [phone] Celina He DPEvelin Unavailable [phone] Elizabeth Goode MD Unavailable [phone] Matrin Green MD Primary Care Provider Griselda Bello NP Primary Care Provider + [phone] Encounter Details Date Type Department Care Team (Late st Contact Info) Description 05/26/2023 Procedure Pass [facility], [address] [address] Social History Tobacco Use Types Packs/Day Years [...] 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 Wish to be (Past 1 Month) No 05/27/2023 2:51 AM Mili Willis RN 2. Non-Specific Active Suicidal Thoughts (Past 1 Month) No 05/27/2023 2:51 AM Mili Willis RN 6. Suicidal Behavior (Lifetime) No 05/27/2023 2:51 AM Mili Willis RN documented as of this encounter Plan of Treatment Upcoming Encounters Date Type Department Care Team (Late st Contact Info) Description 04/28/2025 2:00 PM EST Office Visit [facility] [address] [place] [address] 3rd Floor, [address] [place] [address] Minda Nelson, ESTRELLITA 22 [facility], [address] [place] [address] 07/29/2025 1:00 PM EST Office Visit [facility] [address] [place] [address] 3rd Floor, [address] [place] [address] Minda Nelson, ESTRELLITA 22 [facility], [address] [place] [address] [email or web address] 08/31/2025 11:50 AM EDT Office Visit [facility] [address] [place] [address] Audra Gutierrez MD [address] [place] [address] [email or web address] documented as of [...] documented as of this encounter Care Teams Sdet Relationship Specialty Start Date End Date Martin Green MD 238 [place] [address] [email or web address] PCP - General Internal Medicine 05/26/23 01/25/25 Griselda Bello NP 238 [place] [address] PCP - General Nurse Practitioner 01/26/25 Noe Mccann MD Ophthalmology 02/11/19 Audra Gutierrez MD [address] [place] [address] [email or web address] Intensive Care 02/11/19 Edouard Mosley MD [address] [place] [address] 202 [place] [address] [email or web address] Plastic and Reconstructive Surgery 02/11/19 Nara Tejada MD [address] [place] [address], 3 [place] [address] [email or web address] Consulting Provider Nephrology 02/11/19 Jose Thomas MD [address] [place] [address] [email or web address] Consulting Provider Infectious Diseases 02/11/19 Trish Hammonds MD [address] [place] [address], [address] [place] [address] Rheumatology 02/11/19 Celina He DPM 22 [facility], [address] [place] [address] [email or web address] Podiatry 02/11/19 Elizabeth Goode MD 301 [facility] 200 [place] [address] Psychologist 03/27/20 documented as of this encounter Additional Source Comments The information contained in this document represents components of the legal health record. It is not the complete legal health record.[facility]
--- OUTSIDE RECORDS SUMMARY | 2025-04-16 20:58 | XMS_ITS | Encounter Summary ---
Author Organization [facility] Address [address] [facility] [address] [place] [address] Phone Care Team Providers Care Instrumentation Technologist Name Role Phone Olvin Harvey MD Primary Care Provide r Olvin Harvey MD Unavailable [phone] Chelsy MclaughlinW Unavailable [email or web address] Ema Dumas DO Primary Care Provider Krissy Hernandez Primary Care Pro vider Martin Green MD Primary Care Provider [phone] Martin Bales MD Unavailable Jose Gallagher MD Unavailable [phone] Ramiro Schmidt MD Unavailable Enio Starkey MD Unavailable [phone] Kenneth Carter MD Unavailable Noe Mccann MD Unavailable Unavailable Audra Gutierrez MD Unavailable [phone] Edouard Mosley MD Unavailable Martin Green MD Primary Care Provider + Nara Tejada MD Unavailable [phone] Jose Thomas MD Unavailable + [phone] Trish Hammonds MD Unavailable +- [phone] Payamchar JoanAna Lima DPEvelin Unavailable +[phone] Olvin aHrvey MD Unavailable [phone] Fabián Seaman MD Unavailable +-[phone] Elizabeth Goode MD Unavailable [phone] Martin Green MD Primary Care Provider + Martin Green MD Primary Care Provider +[phone] Griselda Bello NP Primary Care Provider +[phone] Encounter Details Date Type Department Care Team (Late st Contact Info) Description 11/14/2017 Procedure Pass [facility], [address] [address] Social History Tobacco Use Types Packs/Day Years [...] 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 Not on file documented as of this encounter Plan of Treatment Upcoming Encounters Date Type Department Care Team (Late st Contact Info) Description 04/28/2025 2:00 PM EST Office Visit [facility] [address] [place] [address] 3rd Floor, [address] [place] [address] Minda Nelson, ESTRELLITA 22 [facility], [address] [place] [phone] [email or web address] 07/29/2025 1:00 PM EST Office Visit [facility] [address] [facility] 3rd Floor, [address] [place] [address] Minda Nelson, ESTRELLITA 22 [facility], [address] [place] [address] [email or web address] 08/31/2025 11:50 AM EDT Office Visit [facility] 10 [place] [address] Audra Gutierrez MD [address] [address] documented as of this encounter Visit Diagnoses [...] 6 PM EST CoV-Risk 05/26/2021 05/26/2021 05/26/2021 5:5 6 PM EST COVID-19 05/26/2021 05/26/2021 06/16/2021 1:23 AM EST CoV-Risk 05/29/2023 06/05/2023 06/06/2023 9:59 AM EST CoV-Risk Comment:Per note documentation 07/20/2024 07/20/2024 5:59 PM EST CoV-Risk 01/30/2025 01/30/2025 02/10/2025 1:21 AM EDT CDiff-Risk 03/21/2025 03/21/2025 03/22/2025 9:01 AM EDT CDiff-Risk 03/26/2025 03/26/2025 03/27/2025 8:59 AM EDT CDiff-Risk 04/10/2025 04/10/2025 04/10/2025 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 documented as of this encounter Care Teams Instrumentation Technologist Relationship Specialty Start Date End Date Olvin Harvey MD 22 [facility] 1 [place] [address] [email or web address] PCP - General 12/07/13 06/11/18 Ema Kaufman DO 7[address] [place] [address] [email or web address] PCP - General 06/12/18 09/22/18 Krissy Hernandez PA [address] [place] [address] [email or web address] PCP - General Internal Medicine 09/23/18 10/04/18 Martin Green MD [address] [place] [address] [email or web address] PCP - General Internal Medicine 10/05/18 02/10/19 Martin Green MD 238 [place] [address] PCP - General Internal Medicine 02/11/19 04/11/20 Martin Green MD [address] [place] [address] [email or web address] PCP - General Internal Medicine 04/12/20 05/25/23 Martin Green MD 238 [place] [address] [email or web address] PCP - General Internal Medicine 05/26/23 01/25/25 Griselda Bello NP [address] [place] [address] PCP - General Nurse Practitioner 01/26/25 Olvin Harvey MD [address] [address] [email or web address] Insurance Assigned Provider 04/12/17 02/10/19 Chelsy Mclaughlin, [facility] 22 [facility] 1 [place] [address] [email or web address] PHCM Real Estate Processor 08/08/17 07/05/18 Martin Bales MD [address] [place] [address] [email or web address] Gastroenterology 10/07/18 11/13/20 Jose Gallagher MD [address] [place] [address], [address] [address] [email or web address] Urology 10/07/18 11/13/20 Ramiro Schmidt MD [address] [place] [address], [address] [address] Endocrinology 02/11/19 11/13/20 Enio Starkey MD [address] [facility], [address] [place] [address] [email or web address] Cardiology 02/11/19 11/13/20 Kenneth Carter MD [address] [place] [address] Neurology 02/11/19 11/13/20 Noe Mccann MD Ophthalmology 02/11/19 Audra Gutierrez MD [address] [address] [email or web address] Intensive Care 02/11/19 Edouard Mosley MD [address] [place] [address], [facility] [address] [place] [address] [email or web address] Plastic and Reconstructive Surgery 02/11/19 Nara Tejada MD [address] [place] [address], [address] [place] [address] Consulting Provider Nephrology 02/11/19 Jose Thomas MD [address] [place] [address] [email or web address] Consulting Provider Infectious Diseases 02/11/19 Trish Hammonds MD [address] [place] [address], [address] [place] [address] [email or web address] Rheumatology 02/11/19 Celina He DPM 22 [facility], [address] [place] [address] [email or web address] Podiatry 02/11/19 Olvin Harvey MD 22 [facility] Floor 1 [place] [address] [email or web address] Insurance Assigned Provider 04/12/17 03/06/19 Fabián Seaman MD 22 [facility], [address] [place] [address] [email or web address] Insurance Assigned Provider 03/06/19 07/09/19 Elizabeth Goode MD [address] [place] [address] Psychologist 03/27/20 documented as of this encounter Additional Source Comments The information contained in this document represents components of the legal health record. It is not the complete legal health record.[facility]
--- OUTSIDE RECORDS SUMMARY | 2025-04-16 20:58 | XMS_ITS | Encounter Summary ---
Author Organization [facility] Address [address] [facility] [address] [place] [address] Phone Care Team Providers Care Wood Setter Name Role Phone Noe Mccann MD Unavailable Unavailable Audra Gutierrez MD Unavailable Edouard Mosley MD Unavailable Nara Tejada MD Unavailable [phone] Jose Thomas MD Unavailable [phone] Trish Hammonds MD Unavailable Celina He DPEvelin Unavailable Elizabeth Goode MD Unavailable [phone] Martin Green MD Primary Care Provider [phone] Griselda Bello NP Primary Care Provider + [phone] Encounter Details Date Type Department Care Team (Late st Contact Info) Description 06/09/2023 Procedure Pass [facility], [address] [address] Social History Tobacco Use Types Packs/Day Years [...] 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 file documented as of this encounter Plan of Treatment Upcoming Encounters Date Type Department Care Team (Late st Contact Info) Description 04/28/2025 2:00 PM EST Office Visit [facility] [address] [place] [address] 3rd Floor, [address] [place] [address] Minda Nelson, ESTRELLITA 22 [facility], [address] [place] [address] 07/29/2025 1:00 PM EST Office Visit [facility] [address] [place] [address] 3rd Floor, [address] [place] [address] Minda Nelson, ESTRELLITA 22 [facility], [address] [place] [address] 08/31/2025 11:50 AM EDT Office Visit [facility] 10 [place] [address] Audra Gutierrez MD [address] [place] [address] 2nd [place] [address] [email or web address] [...] documented as of this encounter Care Teams Wood Setter Relationship Specialty Start Date End Date Martin Green MD [address] [place] [phone] [email or web address] PCP - General Internal Medicine 05/26/23 01/25/25 Griselda Bello NP [address] [place] [address] PCP - General Nurse Practitioner 01/26/25 Noe Mccann MD Ophthalmology 02/11/19 Audra Gutierrez MD [address] [place] [address] 2nd [place] [address] [email or web address] Intensive Care 02/11/19 Edouard Mosley MD [address] [place] [address] [email or web address] Plastic and Reconstructive Surgery 02/11/19 Nara Tejada MD [address] [place] [address], 3 [place] [address] [email or web address] Consulting Provider Nephrology 02/11/19 Jose Thomas MD [address] [place] [address] [email or web address] Consulting Provider Infectious Diseases 02/11/19 Trish Hammonds MD [address] [place] [address], [address] [address] [email or web address] Rheumatology 02/11/19 Celina He DPM [address] [place] [address], [address] [address] Podiatry 02/11/19 Elizabeth Goode MD [address] [place] [address] Psychologist 03/27/20 documented as of this encounter Additional Source Comments The information contained in this document represents components of the legal health record. It is not the complete legal health record.[facility]
--- OUTSIDE RECORDS SUMMARY | 2025-04-16 20:58 | XMS_ITS | Encounter Summary ---
Author Organization [facility] Address [address] [facility] [address] [place] [address] Phone Care Team Providers Care Tappet Adjuster Name Role Phone Olvin Harvey MD Unavailable [phone] Ema Kaufman DO Primary Care Provider Krissy Hernandez Primary Care Pro vider Martin Green MD Primary Care Provider [phone] Martin Bales MD Unavailable [phone] Jose Gallagher MD Unavailable [phone] Ramiro Schmidt MD Unavailable Enio Starkey MD Unavailable [phone] Kenneth Carter MD Unavailable Noe Mccann MD Unavailable Unavailable Audra Gutierrez MD Unavailable Edouard Mosley MD Unavailable Martin Green MD Primary Care Provider [phone] Nara Tejada MD Unavailable [phone] Jose Thomas MD Unavailable + [phone] Trish Hammonds MD Unavailable Celina He DPEvelin Unavailable [phone] Olvin Harvey MD Unavailable [phone] Fabián Seaman MD Unavailable +[phone] Elizabeth Goode MD Unavailable [phone] Martin Green MD Primary Care Provider + Martin Green MD Primary Care Provider + Griselda Bello NP Primary Care Provider [phone] Encounter Details Date Type Department Care Team (Latest Contact Info) Description 08/05/2018 Ancillary Orders Virtual Department 30 [place] [address] Elizabeth Matias PA-C 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 Not on file documented as of this encounter Plan of Treatment Upcoming Encounters Date Type Department Care Team (Late st Contact Info) Description 04/28/2025 2:00 PM EST Office Visit [facility] [address] [place] [address] 3rd Floor, [address] [place] [address] Minda Nelson DNP [address] [facility], [address] [place] [address] 07/29/2025 1:00 PM EST Office Visit [facility] 22 [facility] 3rd Floor, [address] [place] [address] Minda Nelson DNP [address] [facility], [address] [place] [address] 08/31/2025 11:50 AM EDT Office Visit [facility] [address] [place] [address] [place] [address] Audra Gutierrez MD [address] [place] [address] 2nd [place] [address] documented as of this encounter Visit Diagnoses Diagnosis Dysphagia, pharyngoesophageal phase Abdominal pain, periumbilical Abdominal pain, periumbilic Change in bowel habits Other symptoms involving digestive system Gas pain Flatulence, eructation, and gas pain documented in this encounter Additional Health [...] documented as of this encounter Care Teams Tappet Adjuster Relationship Specialty Start Date End Date Ema Kaufman DO [address] [place] [address] [email or web address] PCP - General 06/12/18 09/22/18 Krissy Hernandez PA [address] [place] [address] [email or web address] PCP - General Internal Medicine 09/23/18 10/04/18 Martin Green MD [address] [place] [address] PCP - General Internal Medicine 10/05/18 02/10/19 Martin Green MD [address] [place] [address] PCP - General Internal Medicine 02/11/19 04/11/20 Martin Green MD [address] [place] [address] [email or web address] PCP - General Internal Medicine 04/12/20 05/25/23 Martin Green MD 238 [place] [address] [email or web address] PCP - General Internal Medicine 05/26/23 01/25/25 Griselda Bello NP 238 [place] [address] PCP - General Nurse Practitioner 01/26/25 Olvin Harvey MD [address] [address] [email or web address] Insurance Assigned Provider 04/12/17 02/10/19 Martin Bales MD [address] [place] [address] [email or web address] Gastroenterology 10/07/18 11/13/20 Jose Gallagher MD [address] [place] [address], [address] [place] [address] [email or web address] Urology 10/07/18 11/13/20 Ramiro Schmidt MD [address] [place] [address], [address] [place] [address] [email or web address] Endocrinology 02/11/19 11/13/20 Enio Starkey MD [address] [place] [address], [address] [place] [address] [email or web address] Cardiology 02/11/19 11/13/20 Kenneth Carter MD [address] [place] [address] Neurology 02/11/19 11/13/20 Noe Mccann MD Ophthalmology 02/11/19 Audra Gutierrez MD [address] [place] [address] 2nd [place] [address] [email or web address] Intensive Care 02/11/19 Edouard Mosley MD [address] [place] [address] 202 [place] [address] [email or web address] Plastic and Reconstructive Surgery 02/11/19 Nara Tejada MD [address] [place] [address], [address] [place] [address] [email or web address] Consulting Provider Nephrology 02/11/19 Jose Thomas MD [address] [place] [address] [email or web address] Consulting Provider Infectious Diseases 02/11/19 Trish Hammonds MD [address] [place] [address], [address] [place] [address] [email or web address] Rheumatology 02/11/19 Celina He DPM [address] [place] [address], [address] [place] [address] [email or web address] Podiatry 02/11/19 Olvin Harvey MD [address] [facility] Floor 1 [place] [address] [email or web address] Insurance Assigned Provider 04/12/17 03/06/19 Fabián Seaman MD [address] [facility], [address] [place] [address] [email or web address] Insurance Assigned Provider 03/06/19 07/09/19 Elizabeth Goode MD [address] [place] [address] [address] [place] [address] Psychologist 03/27/20 documented as of this encounter Additional Source Comments The information contained in this document represents components of the legal health record. It is not the complete legal health record.[facility]
--- OUTSIDE RECORDS SUMMARY | 2025-04-16 20:58 | XMS_ITS | Encounter Summary ---
Author Organization [facility] Address [address] [facility] [address] [place] [address] Phone Care Team Providers Care Telegraph Service Rater Name Role Phone Olvin Harvey MD Primary Care Provide r Olvin Harvey MD Unavailable [phone] Chelsy MclaughlinW Unavailable [email or web address] Ema Dumas DO Primary Care Provider Krissy Hernandez Primary Care Pro vider Martin Green MD Primary Care Provider [phone] Martin Bales MD Unavailable Jose Gallagher MD Unavailable [phone] Ramiro Schmidt MD Unavailable [phone] Enio Starkey MD Unavailable [phone] Kenneth Carter MD Unavailable Noe Mccann MD Unavailable Unavailable Audra Gutierrez MD Unavailable Edouard Mosley MD Unavailable Martni Green MD Primary Care Provider + Nara Tejada MD Unavailable [phone] Jose Thomas MD Unavailable + [phone] Trish Hammonds MD Unavailable [phone] PayamcharCelina DPM Unavailable [phone] Olvin Harvey MD Unavailable [phone] Fabián Seaman MD Unavailable +[phone] Elizabeth Goode MD Unavailable [phone] Martin Green MD Primary Care Provider + Martin Green MD Primary Care Provider + Griselda Bello NP Primary Care Provider [phone] Encounter Details Date Type Department Care Team (Latest Contact Info) Description 11/04/2017 Transcribe Orders [facility] Main [address] [place] [address] ReeseSukh smith DO 22 [place] [address] [email or web address] Diagnosis unknown (Primary Dx) Social History Tobacco Use Types [...] 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 Not on file Not on file documented as of this encounter Plan of Treatment Upcoming Encounters Date Type Department Care Team (Late st Contact Info) Description 04/28/2025 2:00 PM EST Office Visit [facility] [address] 3[address] Floor, [address] [place] [address] Minda Nelson DNP [address] [facility], [address] [place] [address] [email or web address] 07/29/2025 1:00 PM EST Office Visit [facility] [address] Floor, [address] [place] [address] Minda Nelson DNP [address] [facility], [address] [place] [address] [email or web address] 08/31/2025 11:50 AM EDT Office Visit [facility] Pulmonary, Allergy [facility] Critical Care Medicine 10 [facility] [place] [address] Audra Gutierrez MD [address] [address] documented as of this encounter Procedures Procedure Name Priority Date/Time Associated Diagnosis Comments MAGNESIUM Routine 11/04/2017 9:43 AM EDT Diagnosis unknown documented in this encounter Results * Creatinine, 24 hr urine (11/07/2017 2:00 PM EDT) URINE CREATININE 95 mg/dL [facility] CREATININE OUTPUT 950 600 - 1,800 mg/total output [facility] Urine (Urine) 11/07/2017 2:0 0 PM EDT 11/07/2017 4:24 PM EDT us Sukh Leigh DO LAB URINE ORDERABLES Final Resul t [facility] 30 [place] [address] * Phosphorus, 24 hr urine (11/07/2017 2:00 PM EDT) URINE PHOSPHORUS 63.1 mg/dL [facility] PHOSPHORUS OUTPUT 631.0 400 - 1,300 mg/total output [facility] Urine (Urine) 11/07/2017 2:0 0 PM EDT 11/07/2017 4:24 PM EDT us Sukh Leigh DO URINE ORDERABLES Final Result Performing Organization Address [facility] de Phone Number [address] [address] * Calcium, 24 hour urine (11/07/2017 2:00 PM EDT) URINE CALCIUM 12.9 mg/dL [facility] CALCIUM OUTPUT 129 100 - 300 mg/total output [facility] Urine (Urine) 11/07/2017 2:0 0 PM EDT 11/07/2017 4:24 PM EDT Sukh Leigh DO URINE ORDERABLES Final Result Performing Organization Address [facility] de Phone Number [address] [address] * Magnesium (11/04/2017 9:43 AM EDT) MAGNESIUM 1.9 1.6 - 2.6 mg/dL [facility] Blood 11/04/2017 9:43 AM EDT 11/04/2017 9:46 AM EDT us Sukh Leigh DO LAB BLOOD BKR ORDERABLES Final R esult Performing Organization Address [facility] de Phone Number [address] [address] documented in this encounter Visit Diagnoses Diagnosis Diagnosis unknown- Primary documented in this encounter Additional Health Concerns Infection Onset Date Last Indicated Resolved Time 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 PCP - General 12/07/13 06/11/18 Ema Kaufman DO [address] [place] [email or web address] PCP - General 06/12/18 09/22/18 Krissy Hernandez PA [address] [place] [address] [email or web address] PCP - General Internal Medicine 09/23/18 10/04/18 Martin Green MD [address] [place] [address] [email or web address] PCP - General Internal Medicine 10/05/18 02/10/19 Martin Green MD [address] [place] [address] [email or web address] PCP - General Internal Medicine 02/11/19 04/11/20 Martin Green MD [address] [place] [address] [email or web address] PCP - General Internal Medicine 04/12/20 05/25/23 Martin Green MD [address] [place] [phone] [email or web address] PCP - General Internal Medicine 05/26/23 01/25/25 Griselda Bello NP [address] [place] [address] PCP - General Nurse Practitioner 01/26/25 Olvin Harvey MD [address] [facility] Floor 1 [place] [address] [email or web address] Insurance Assigned Provider 04/12/17 02/10/19 Chelsy Mclaughlin LCSW [address] [facility] Floor 1 [place] [address] [email or web address] Justice Court Judge 08/08/17 07/05/18 Martin Bales MD [address] [place] [address] [email or web address] Gastroenterology 10/07/18 11/13/20 Jose Gallagher MD [address] [place] [address], [address] [place] [address] [email or web address] Urology 10/07/18 11/13/20 Ramiro Schmidt MD [address] [place] [address], [address] [place] [address] [email or web address] Endocrinology 02/11/19 11/13/20 Enio Starkey MD [address] [place] [address], [address] [place] [address] [email or web address] Cardiology 02/11/19 11/13/20 Kenneth Carter MD [address] [place] [address] Neurology 02/11/19 11/13/20 Noe Mccann MD Ophthalmology 02/11/19 Audra Gutierrez MD [address] [place] [address] 2nd [place] [address] [email or web address] Intensive Care 02/11/19 Edouard Mosley MD [address] [place] [address], [address] [place] [address] [email or web address] Plastic and Reconstructive Surgery 02/11/19 Nara Tejada MD [address] [place] [address], [address] [place] [address] [email or web address] Consulting Provider Nephrology 02/11/19 Jose Thomas MD [address] [place] [address] [email or web address] Consulting Provider Infectious Diseases 02/11/19 Trish Hammonds MD [address] [place] [address], [address] [place] [address] [email or web address] Rheumatology 02/11/19 Celina He DPM [address] [facility], [address] [place] [address] [email or web address] Podiatry 02/11/19 Olvin Hravey MD [address] [facility] Floor 1 [place] [address] [email or web address] Insurance Assigned Provider 04/12/17 03/06/19 Fabián Seaman MD [address] [facility], [address] [place] [address] [email or web address] Insurance Assigned Provider 03/06/19 07/09/19 Elizabeth Goode MD [address] [place] [address] Psychologist 03/27/20 documented as of this encounter Additional Source Comments The information contained in this document represents components of the legal health record. It is not the complete legal health record.[facility]
--- OUTSIDE RECORDS SUMMARY | 2025-04-16 20:58 | XMS_ITS | Encounter Summary ---
Author Organization [facility] Address [address] [facility] [address] [place] [address] Phone Care Team Providers Care Antique Jewelry Repairer Name Role Phone Noe Mccann MD Unavailable Unavailable Audra Gutierrez MD Unavailable Edouard Mosley MD Unavailable Nara Tejada MD Unavailable [phone] Jose Thomas MD Unavailable [phone] Trish Hammonds MD Unavailable [phone] Celina He DPEvelin Unavailable [phone] Elizabeth Goode MD Unavailable [phone] Martin Green MD Primary Care Provider Griselda Bello NP Primary Care Provider + [phone] Encounter Details Date Type Department Care Team (Late st Contact Info) Description 08/06/2023 Procedure Pass [facility], [facility] [address] [place] [address] Social History Tobacco Use Types Packs/Day Years Used Date Smoking Tobacco: Former Cigarettes 2 45 1 966 - 2010 Smokeless Tobacco: Never Alcohol Use Standard Drinks/Week Comments No 0 (1 standard drink = 0.6 oz pur e alcohol) Home Health Assessment: Transportation Answer Date Recorded Lack of Transportation (Medical) No 06/16/2023 Lack of Transportation (Non-Medical) No 06/16/2023 Patient Unable or Declines to Respond No 06/16/2023 Education Answer Date Recorded Are you interested [...] 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 Not on file documented as of this encounter Plan of Treatment Upcoming Encounters Date Type Department Care Team (Late st Contact Info) Description 04/28/2025 2:00 PM EST Office Visit [facility] [address] [place] [address] 3rd Floor, [address] [place] [address] Minda Nelson, ESTRELLITA [address] [facility], [address] [place] [phone] 07/29/2025 1:00 PM EST Office Visit [facility] [address] [facility] 3rd Floor, [address] [place] [address] Minda Nelson, ESTRELLITA 22 [facility], [address] [place] [address] 08/31/2025 11:50 AM EDT Office Visit [facility] All[facility] Critical [facility] Medicine 10 [place] [address] Audra Gutierrez MD [address] [place] [address] 2nd [place] [address] [email or web address] documented as of this encounter Visit Diagnoses [...] documented as of this encounter Care Teams Antique Jewelry Repairer Relationship Specialty Start Date End Date Martin Green MD [address] [place] [phone] [email or web address] PCP - General Internal Medicine 05/26/23 01/25/25 Griselda Bello NP [address] [place] [address] PCP - General Nurse Practitioner 01/26/25 Noe Mccann MD Ophthalmology 02/11/19 Audra Gutierrez MD [address] [place] [address] 2nd [place] [address] [email or web address] Intensive Care 02/11/19 Edouard Mosley MD [address] [place] [address] [email or web address] Plastic and Reconstructive Surgery 02/11/19 Nara Tejada MD [address] [place] [address], 3 [place] [address] [email or web address] Consulting Provider Nephrology 02/11/19 Jose Thomas MD [address] [place] [address] [email or web address] Consulting Provider Infectious Diseases 02/11/19 Trish Hammonds MD [address] [place] [address], [address] [address] [email or web address] Rheumatology 02/11/19 Celina He DPM [address] [place] [address], [address] [address] Podiatry 02/11/19 Elizabeth Goode MD [address] [facility] [facility] 200 [place] [address] Psychologist 03/27/20 documented as of this encounter Additional Source Comments The information contained in this document represents components of the legal health record. It is not the complete legal health record.[facility]
--- OUTSIDE RECORDS SUMMARY | 2025-04-16 20:58 | XMS_ITS | Encounter Summary ---
Author Organization [facility] Address [address] [place] [address] [address] [place] [address] Phone Care Team Providers Care Medical Educator Name Role Phone Noe Mccann MD Unavailable Unavailable Audra Gutierrez MD Unavailable [phone] Edouard Mosley MD Unavailable Nara Tejada MD Unavailable [phone] Jose Thomas MD Unavailable [phone] Trish Hammonds MD Unavailable [phone] Celina He DPEvelin Unavailable Elizabeth Goode MD Unavailable [phone] Martin Green MD Primary Care Provider [phone] Griselda Bello NP Primary Care Provider + [phone] Encounter Details Date Type Department Care Team (Late st Contact Info) Description 06/06/2023 Procedure Pass [facility] [address] [place] [address] Social History Tobacco Use Types Packs/Day Years [...] 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 Not on file Not on file documented as of this encounter Plan of Treatment Upcoming Encounters Date Type Department Care Team (Late st Contact Info) Description 04/28/2025 2:00 PM EST Office Visit [facility] [address] [place] [address] 3rd Floor, [address] [place] [address] Minda Nelson, ESTRELLITA 22 [facility], [address] [place] [address] 07/29/2025 1:00 PM EST Office Visit [facility] 22 [facility] 3rd Floor, [address] [place] [address] Minda Nelson, ESTRELLITA 22 [facility], [address] [place] [address] 08/31/2025 11:50 AM EDT Office Visit [facility] 10 [place] [address] Audra Gutierrez MD 10 [facility] 2nd [place] [address] [email or web address] documented as of this [...] documented as of this encounter Care Teams Medical Educator Relationship Specialty Start Date End Date Martin Green MD [address] [place] [phone] [email or web address] PCP - General Internal Medicine 05/26/23 01/25/25 Griselda Bello, GAEL [address] [place] [address] PCP - General Nurse Practitioner 01/26/25 Noe Mccann MD Ophthalmology 02/11/19 Audra Gutierrez MD [address] [place] [address] 2nd [place] [address] [email or web address] Intensive Care 02/11/19 Edouard Mosley MD [address] [place] [address] 202 [place] [address] [email or web address] Plastic and Reconstructive Surgery 02/11/19 Nara Tejada MD [address] [place] [address], 3 [place] [address] [email or web address] Consulting Provider Nephrology 02/11/19 Jose Thomas MD [address] [place] [address] [email or web address] Consulting Provider Infectious Diseases 02/11/19 Trish Hammonds MD [address] [place] [address], [address] [address] [email or web address] Rheumatology 02/11/19 Celina He DPM [address] [place] [address], [address] [place] [address] Podiatry 02/11/19 Elizabeth Goode MD 301 [facility] 200 [place] [address] Psychologist 03/27/20 documented as of this encounter Additional Source Comments The information contained in this document represents components of the legal health record. It is not the complete legal health record.[facility]
--- OUTSIDE RECORDS SUMMARY | 2025-04-16 20:58 | XMS_ITS | Encounter Summary ---
Author Organization [facility] Address [address] [place] [address] [address] [place] [address] Phone Care Team Providers Care Title Officer Name Role Phone Noe Mccann MD Unavailable Unavailable Audra Gutierrez MD Unavailable [phone] Edouard Mosley MD Unavailable Nara Tejada MD Unavailable [phone] Jose Thomas MD Unavailable [phone] Trish Hammonds MD Unavailable [phone] Celina He DPM Unavailable [phone] Elizabeth Goode MD Unavailable [phone] Martin Green MD Primary Care Provider [phone] Griselda Bello NP Primary Care Provider [phone] Reason for Referral * MRI/CAT Scan - Closed Specialty Diagnoses / Procedures Referred By Contac t Referred To Contact Radiology Diagnoses Other chest pain Procedures [place] Stress Result for Nuclear Stress Test Audra Gutierrez MD Phone: tel: fax: [email or web address] Referral ID Status Reason Start Date Expiration Date Visits Re quested Visits Authorized [id number] Closed 08/27/2023 1 1 Encounter Details Date Type Department Care Team (Late st Contact Info) Description 08/27/2023 Ancillary Orders [facility] Pulmonary, Allergy and Critical Care Medicine [address] [place] [address] Audra Gutierrez MD 10 [facility] 2nd [place] [address] [email or web address] Other chest pain (Primary Dx) Social History Tobacco Use Types Packs/Day Years Used Date Smoking Tobacco: Former Cigarettes 2 45 1 2010 Smokeless Tobacco: Never Alcohol Use Standard [...] 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 Not on file Not on file documented as of this encounter Plan of Treatment Upcoming Encounters Date Type Department Care Team (Late st Contact Info) Description 04/28/2025 2:00 PM EST Office Visit [facility] 22 [facility] 3rd [facility], [address] [place] [address] Minda Nelson DNP [address] [place] [address] 07/29/2025 1:00 PM EST Office Visit [facility] [address] [place] [address] 3rd [facility], [address] [place] [address] Minda Nelson DNP [address] [place] [address], [address] [address] 08/31/2025 11:50 AM EDT Office Visit [facility] 10 [place] [address] Audra Gutierrez MD [address] [place] [address] [address] documented as of this encounter Results * NC Stress Result for Nuclear Stress Test (08/27/2023 12:11 PM EDT) Max Predicted Heart Rate 155 bpm [facility] Max BP Systolic 110 mmHg [facility] Max BP Diastolic 60 mmHg [facility] Max HR 93 BPM [facility] Resting HR 73 BPM [facility] Resting BP Systolic 110 mmHg [facility] Resting BP Diastolic 58 mmHg [facility] Peak METS 1.0 METS [facility] Peak HR 82 BPM [facility] Anatomical Region Laterality Modality Heart Other 08/27/2023 10:5 7 AM EDT 08/27/2023 12:10 PM EDT Narrative 08/27/2023 2:52 PM EDT Conclusion -Lexiscan portion of nuclear stress test without ECG changes meeting criteria for ischemia. Nuclear images pending and will be reported separately. Stress Findings The resting heart rate was 73 BPM. The resting BP was 110/58 mmHg. A peak heart rate of 82 BPM (93 BPM of max predicted heart rate) was achieved. Max age of predicted heart rate was 155 bpm. ECG 0.4 mg Regadenoson (lexiscan) given IV push over 10 seconds as per protocol immediately followed by injection of Tc99m Sestamibi by Penelope echocardiography technologist. Done as a pharmacologic stress test due to patient's reported inability to ambulate 1. EKG - Baseline EKG showed sinus rhythm with some non-specific ST - T wave abnormalities in inferior leads. With administration of Lexiscan there were no ECG changes meeting criteria for ischemia. 2. SYMPTOMS -Following Lexiscan administration patient developed substernal burning sensation which radiated to her neck, this resolved following administration of aminophylline. She had persistent chest discomfort throughout recovery period which she would state was made better when rubbing chest with her hand. 3. PHYSIOLOGY - Resting HR was 73 bpm. After Lexiscan injection, HR 93 bpm. Blood pressure: 110/60 at rest, 98/56 following Lexiscan, 98/56 on discharge from stress test lab. 4. ARRHYTHMIAS -none Conclusion -Lexiscan portion of nuclear stress test without ECG changes meeting criteria for ischemia. Nuclear images pending and will be reported separately. See attached stress report for full details. Tori Sarmiento NP with Dr. Levy Response to Stress The patient exercised for minutes and seconds, achieving 1.0 METS at peak exercise. Baseline blood pressure was 110/58 mmHg, and baseline heart rate was 73 bpm. The patient achieved a peak heart rate of 82 bpm, which is% of their maximum predicted heart rate. us Audra Gutierrez MD CV NM CARDIAC Final Result documented in this encounter Visit Diagnoses Diagnosis Other chest pain- Primary Other chest pain documented in this encounter Additional Health [...] documented as of this encounter Care Teams Title Officer Relationship Specialty Start Date End Date Martin Green MD [address] [place] [phone] [email or web address] PCP - General Internal Medicine 05/26/23 01/25/25 Griselda Bello NP [address] [place] [address] PCP - General Nurse Practitioner 01/26/25 Noe Mccann MD Ophthalmology 02/11/19 Audra Gutierrez MD [address] [place] [address] 2nd [place] [address] Intensive Care 02/11/19 Edouard Mosley MD [address] [place] [address], [address] [place] [address] Plastic and Reconstructive Surgery 02/11/19 Nara Tejada MD [address] [place] [address], [address] [place] [address] [email or web address] Consulting Provider Nephrology 02/11/19 Jose Thomas MD [address] [place] [address] [email or web address] [email or web address] Provider Infectious Diseases 02/11/19 Trish Hammonds MD 22 [facility], [address] [place] [address] [email or web address] Rheumatology 02/11/19 Celina He DPM 22 [facility], [address] [place] [address] [email or web address] Podiatry 02/11/19 Elizabeth Goode MD [address] [place] [address] Psychologist 03/27/20 documented as of this encounter Additional Source Comments The information contained in this document represents components of the legal health record. It is not the complete legal health record.[facility]
--- OUTSIDE RECORDS SUMMARY | 2025-04-16 20:58 | XMS_ITS | Encounter Summary ---
Author Organization [facility] Address [address] [place] [address] Phone Care Team Providers Care Metal Trades Instructor Name Role Phone Noe Mccann MD Unavailable Unavailable Audra Gutierrez MD Unavailable [phone] Edouard Mosley MD Unavailable Nara Tejada MD Unavailable [phone] Jose Thomas MD Unavailable [phone] Trish Hammonds MD Unavailable Celina He DPEvelin Unavailable Elizabeth Goode MD Unavailable [phone] Martin Green MD Primary Care Provider Griselda Bello NP Primary Care Provider + [phone] Encounter Details Date Type Department Care Team (Late st Contact Info) Description 06/05/2023 Procedure Pass [facility], Ct Scan - [facility] [address] [place] [address] Social History Tobacco Use Types Packs/Day Years [...] 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 Wish to be (Past 1 Month) No 023 4:36 PM Mary Peterson RN 2. Non-Specific Active Suici aby Thoughts (Past 1 Month) No 06/05/2023 4:36 PM Mary Peterson RN 6. Suicidal Behavior (Lifetime) No 4:36 PM Mary Peterson RN documented as of this encounter Plan of Treatment Upcoming Encounters Date Type Department Care Team ([facility] st Contact Info) Description 04/28/2025 2:00 PM EST Office Visit [facility] [address] [place] [address], [address] [place] [address] Minda Nelson DNP [address] [place] [phone] 07/29/2025 1:00 PM EST Office Visit [address], [address] [address] Minda Nelson DNP [address] [place] [phone] 08/31/2025 11:50 AM EDT Office Visit [facility] [address] [place] [address] Audra Gutierrez MD [address] [place] [phone] documented as of this encounter Visit Diagnoses [...] as of this encounter Care Teams Metal Trades Instructor Relationship Specialty Start Date End Date Martin Green MD [address] [place] [address] [email or web address] PCP - General Internal Medicine 05/26/23 01/25/25 Griselda Bello NP [address] [place] [address] PCP - General Nurse Practitioner 01/26/25 Noe Mccann MD Ophthalmology 02/11/19 Audra Gutierrez MD [address] [place] [address] [address] [place] [address] Intensive Care 02/11/19 Edouard Mosley MD [address] [place] [address], [address] [place] [address] Plastic and Reconstructive Surgery 02/11/19 Nara Tejada MD [address] [place] [address], [address] [place] [address] Consulting Provider Nephrology 02/11/19 Jose Thomas MD [address] [place] [address] [email or web address] Consulting Provider Infectious Diseases 02/11/19 Trish Hammonds MD [address] [facility], [address] [address] Rheumatology 02/11/19 Celina He DPM [address] [place] [address], [address] [address] Podiatry 02/11/19 Elizabeth Goode MD [address] [place] [address] Psychologist 03/27/20 documented as of this encounter Additional Source Comments The information contained in this document represents components of the legal health record. It is not the complete legal health record.[facility]
[2025-04-16 21:03] VITALS: BP 91/50; PULSE 74; RESP 18; O2SAT 99
[2025-04-16 21:03] LABS: Atypical Lymph Absolute Manual 0.4 x10*3/uL; Atypical Lymphs Percent Manual 2 % (0-6); Band Neutrophils Percent 5 % (3-5); Eosinophils Absolute Manual 0.2 X10*3/uL (0.0-0.4); Eosinophils Percent Manual 1 % (0-4); Lymphocytes Absolute Manual 1.4 X10*3/uL (1.2-4.9); Lymphocytes Percent Manual 8 % (20-40); Monocytes Absolute Manual 0.4 X10*3/uL (0.1-1.2); Monocytes Percent Manual 2 % (2-11); Neutrophils Absolute Manual 14.9 X10*3/uL (2.0-8.3); Neutrophils Percent Manual 80 % (45-73); Promyelocytes Absolute 0.4 X10*3/uL; Promyelocytes Percent 2 %; RBC Morphology NORMAL
[2025-04-16 21:04] LABS: Large Platelet PRESENT; Polychromasia 1+ (0-2) /OIF; Schistocytes 1+ (0-2) /OIF; Smudge Cells PRESENT
[2025-04-16 21:05] LABS: Toxic Granulation PRESENT; Toxic Vacuolation PRESENT
[2025-04-16 22:15] VITALS: BP 108/65; PULSE 75; RESP 21; TEMP 36.8; O2SAT 98
[2025-04-17] VITALS (9 sets, daily range): BP systolic 95–127; BP diastolic 47–86; PULSE 61–180; RESP 16–20; TEMP 36.4–36.9; O2SAT 95–99
--- NOTE | 2025-04-17 00:24 | PC.NURSE ---
pt incont of bm and urine x2, refusing purewick, assist with cleaning and repositioning in bed, pt resting comfortably at this time
--- NOTE | 2025-04-17 05:28 | PC.NURSE ---
pt resting comfortably throughout the night, no apparent distress noted. call rush w/in reach
[2025-04-17] MEDS: Morphine Sulfate Immed Release 15 MG TABLET PO (13:17)
--- NOTE | 2025-04-17 15:13 | MHC.CM.PN ---
CM ATTEMPTED TO MEET WITH PT THIS MORNING, PT CURLED UP IN BED STATING SHE JUST WANTS TO GO HOME AND PT THEN REQUESTED THE RN/TECH TO HELP CLEAN HER UP, CM INFORMED THEM AND TOLD PT CM WOULD RETURN. CM RETURNED LATER AND MET WITH PT AND SON AFTER BEING INFORMED BY THE ED PROVIDER THAT THEY WERE INTERESTED IN HOSPICE AT HOME. PT INITIALLY STATED SHE DID WANT TO GO HOME WITH HOSPICE, HOWEVER ALSO BELIEVED THAT THEY WOULD BE PROVIDING PERSONAL CARE. CM INFORMED HER SHE WOULD NEED 24/7 CARE PROVIDED BETWEEN HER RECRUITMENT COORDINATOR HOURS AND FAMILY MEMBERS. PTS SON ALSO STATING PT DOES BETTER AT HOME AND IS JUST SICK OF BEING IN FACILITIES PT SAT UP AND ATE HER LUNCH AND DISCUSSED TREATMENT AT THE LAST HOSPITAL SHE WAS IN BOTH PT AND SON REPORT THEY CHANGED HER MEDS AND DID NOT TELL HER WHAT THEY WERE DOING, SON STATES THEY TOOK HER OFF OF HER ADDERALL AND THAT IS ANOTHER REASON SHE DOES NOT FEEL WELL. CM EXPLAINED THAT HOSPICE WOULD BE ABOUT KEEPING HER COMFORTABLE, SHE WOULD NOT NECESSARILY CONTINUE ALL TREATMENT PT STATES SHE DOES NOT WANT TO DO HOSPICE, SHE JUST WANTS TO GO HOME CM ASKED PT IF SHE FELT SHE COULD MANAGE AT HOME AND IF SHE FELT SHE WOULD BE SUFFERING SHE HAD MENTIONED AT LEAST TWICE THAT SHE WAS TIRED OF FIGHTING TO LIVE AND IN PAIN PT STATES SHE IS OK AT HOME, SHE DOES FEEL SHE NEEDS A VNA FOR PT AND SN, REFERRAL PLACED. THEY ALSO ASKED ABOUT GETTING PT A NEW W/C AND COMMODE, CM INFORMED THEM THEY COULD HAVE THE PCP WRITE PRESCRIPTIONS, CALL THE SUPPLIER DIVERSITY DIRECTOR FOR HELP, OR GO TO THE [facility] HELP PROGRAM ON SATURDAYS-ADDRESS AND TIMES GIVEN. PT AND SON ASKING THAT PT DC HOME TOMORROW SON NEEDS TO PREPARE THE HOME PT WILL NEED BLS TRANSPORT
--- NOTE | 2025-04-17 19:30 | PHA.MEDREC ---
Pharmacy Consult ? Medication Reconciliation Pharmacy has completed the medication reconciliation. list utilized from rehab facility
--- NOTE | 2025-04-17 20:24 | ECG_ITS ---
Test Reason : CP Blood Pressure : */* mmHG Vent. Rate : 165 BPM Atrial Rate : 182 BPM P-R Int : * ms QRS Dur : 84 ms QT Int : 266 ms P-R-T Axes : * 24 -77 degrees QTcB Int : 440 ms Atrial fibrillation with rapid ventricular response ST & T wave abnormality, consider inferolateral ischemia Abnormal ECG When compared with ECG of 16-Apr-2025 19:28, Atrial fibrillation with rapid ventricular response has replaced Normal sinus rhythm ST now depressed in Anterior leads T wave inversion now evident in Inferior leads Inverted T waves have replaced nonspecific T wave abnormality in Lateral leads Referred By: Ghanshyam Hager Electronically Signed By: MARGARITA ALATORRE MD
--- NOTE | 2025-04-17 20:28 | PC.NURSE ---
quality assurance monitor body received notification of the pt's rapid/elevated HR. Pt had been waiting for her medication rec to be completed by pharmacy and meds verified/administered. Per SHANTELL, the pt is now experiencing new active chest pain and will require to be brought back to the main department for cardiac monitoring, IV cardizem and admission. Staff to OF to retrieve the patient and she will be placed in bed 12. Room 12 primary RN made aware of plan
--- NOTE | 2025-04-17 20:38 | PC.NURSE ---
pt transferred to [facility] and oriented to staff and unit. lungs CTA, abdomen soft, nontender, Provider made aware of pt having 4 loose stools during shift. Med rec in process and provider aware as soon as completed. Pt reports she always has severe pain. She used ice packs, repositioning for comfort and Provider made aware, pt had morphine with stated positive effect but little change in reported level of pain. She rested intermittently during shift and visited with son.
[2025-04-17 20:46] LABS: MANUAL DIFF FLAG NO
[2025-04-17 20:47] LABS: Hematocrit 26.9 % (37.0-47.0); Hemoglobin 8.7 g/dl (12.0-16.0); Imm Gran Abs Auto 0.60 X10*3/uL (0.00-0.03); Imm Gran Pct Auto 3.8 % (0.0-0.4); Lymphocytes Absolute Auto 1.9 X10*3/uL (1.2-4.9); Mean Corpuscular HGB Conc 32.3 g/dl (31.0-35.0); Mean Corpuscular Hemoglobin 28.6 pg (27.0-33.0); Mean Corpuscular Volume 88.5 fL (80.0-98.0); NRBC Abs Auto 0.000 X10*3/uL (0.0-0.012); NRBC Pct Auto 0.0 /100WBC (0.0-0.2); Platelet Count 379 X10*3/uL (160-400); Red Blood Count 3.04 X10*6/uL (4.20-5.50); White Blood Count 15.8 X10*3/uL (4.8-10.8)
--- NOTE | 2025-04-17 20:57 | PC.NURSE ---
Assumed care at 2039. Pt is in SVT with HR 180's, O2 sat 98% RA, reports feeling sob and uncomfortable with back pain. EKG and lab work done SHANTELL at bedside and aware. Pending new orders.
[2025-04-17 21:00] LABS: Alanine Aminotransferase 20 U/L (0-31); Albumin Level 3.2 g/dL (3.5-5.0); Alkaline Phosphatase 275 U/L (39-117); Anion Gap 16 (12-20); Aspartate Amino Transferase 47 U/L (5-31); Blood Urea Nitrogen 35 mg/dL (9-16); Calcium 9.1 mg/dL (8.4-10.2); Carbon Dioxide 21 mmol/L (22-29); Chloride 103 mmol/L (96-108); Creatinine Clr Calc Pharmacy 29.8; Estimated Glomerular Filt Rate 32; Potassium 3.4 mmol/L (3.3-5.1); Sodium 137 mmol/L (135-145); Total Protein 6.9 g/dL (6.5-8.0)
[2025-04-17 21:15] LABS: Troponin-I High Sensitivity 9.7 ng/L (<3.5-17.0)
--- NOTE | 2025-04-17 21:20 | PC.NURSE ---
Pt has meds due from 1945 and 2099. As per SHANTELL all meds to be held at this time except for Dilt IVPush and Fluids. Urine sample pending. Pt declines straight cath and placed on bed aguirre for sample collection.
[2025-04-17 21:38] LABS: Appearance Urine Turbid; Glucose Urine UA >=1000 mg/dL (Negative); PH 5.5 (5.0-9.0); Specific Gravity - Urine 1.020 (1.005-1.025); UMIC TRIGGER UACC YES
[2025-04-17 21:45] LABS: UACC Culture Trigger YES
[2025-04-17] MEDS: Linezolid/D5W 600 MG/300 ML PIGGYBACK 300 MG IV (22:40)
[2025-04-17] MEDS: Metoprolol Succinate ER 50 MG TAB.ER.24H PO (22:41)
[2025-04-17 23:46] LABS: ~Lactic Acid-LAB USE ONLY 2.1 mmol/L (0.5-2.0)
[2025-04-18] VITALS (9 sets, daily range): BP systolic 92–110; BP diastolic 47–62; PULSE 89–94; RESP 14–18; TEMP 36.7; O2SAT 98–100
[2025-04-18] MEDS: dilTIAZem HCL CD 240 MG CAP.ER.DEG PO (00:09)
[2025-04-18] MEDS: Albumin Human 25 % 100 ML 200 ML IV ×2 (00:49→01:32)
[2025-04-18 01:20] LABS: Reflex Lactate? 2 Y
[2025-04-18 01:52] LABS: ~Lactic Acid-LAB USE ONLY 1.4 mmol/L (0.5-2.0)
--- NOTE | 2025-04-18 03:06 | PM.IMHP ---
History of Present Illness Date of Service: 04/18/25 Attending physician on admission: Yasmany Menendez Chief Complaint: chest pain Patient is a 65-year-old female with a past medical history significant for MS, CAD, PE on Eliquis, CVA, type 2 diabetes and chronic pain disorder with a recent admission at [facility] for 1 month long for urosepsis, discharged 3 days ago, who presented from her rehab facility due to chest pain on 04/16. In the ED the patient's chest pain improved with Valium, morphine and Dilaudid. Chest x-ray on CT abdomen and pelvis were unremarkable. The patient declines returned to the original rehab facility and was placed in ED ops for case management. Last night around 20:00 the patient began complaining of 03/18 chest pain again and was found to be in AFib with RVR with a rate in 160s. Initial labs from 04/16 showed leukocytosis of 17.5, the patient is clinically dehydrated and BP soft with tachycardia. She was given a 30 cc/kg IV fluid bolus and treated with Cardizem x2 doses for her rapid AFib. Record from General were reviewed by the ED provider showed urine culture positive for Enterococcus faecalis only resistant to linezolid. The patient's blood pressures have been soft, likely related to hypotension, AFib medications and pain medications. ICU was consulted based suggested to units of albumin and reassessment of blood pressure which has normalized. ICU recommended admission to telemetry. the pt complains of dysuria which never improved from her month long admission at [facility]. she also complains of chronic pain from her MS. she refuses to go back to the [facility] facility she was at but would like VNA services. Review of Systems Constitutional: Constitutional: Denies body ache(s), Denies chills, Denies fatigue, Denies fever(s) and Denies headache(s) Eyes: Eyes: Denies change in vision ENT: Denies headache(s), Denies nasal congestion and Denies sore throat Cardiovascular: Cardiovascular: Reports as per HPI Respiratory: Respiratory: Denies chest congestion, Denies cough and Denies wheezing Gastrointestinal: Gastrointestinal: Denies abdominal pain, Denies diarrhea, Denies nausea and Denies vomiting Genitourinary: Genitourinary: Reports as per HPI Musculoskeletal: Musculoskeletal: Denies back pain Integumentary/Breasts: Skin/Breast: Denies rash Neurologic: Denies confusion and Denies headache(s) Psychiatric: Psychiatric: Denies confusion Endocrine: Endocrine: Denies fatigue Hematologic/Lymphatic: Hematologic/Lymphatic: Denies easy bleeding Allergic/Immunologic: Allergic/Immunologic: Denies wheezing [facility] Medical History Heart valve regurgitation Gitelman syndrome Polycystic ovarian syndrome Myocardial infarction Sleep apnea Fibromyalgia COPD (chronic obstructive pulmonary disease) Mild asthma Orthostatic hypotension Raynaud's disease Atrial fibrillation Pulmonary embolism Coronary atherosclerosis HTN (hypertension) Neuropathy Multiple sclerosis Chronic pain syndrome PTSD (post-traumatic stress disorder) Opioid dependence Depression Hypercalcemia Elevated cholesterol Type 2 diabetes mellitus Thyroid nodule Hypothyroid Surgical History Hx of reduction mammoplasty Hx of tubal ligation Hx of hernia repair History of rectal surgery History of colon resection S/P panniculectomy History of lobectomy of thyroid Hx of hysterectomy Hx of appendectomy Hx of dilation and curettage Hx of heart artery stent Social History Are you a primary palliative care nurse practitioner to a significant other at home: No Patient Tobacco Use Status: Former Tobacco user Tobacco use type: Cigarette Smoked in Last 30 Days: No Use of substances other than those prescribed or required for medical reasons: No Advance Directives: No Advance Directives Information Provided: No Meds Allergies Allergy/AdvReac Type Severity Reaction Status Date / Time diphenhydramine (From Allergy Severe Anaphylaxis Verified 04/16/25 19:37 Benadryl) Penicillins Allergy Severe Anaphylaxis Verified 04/16/25 19:37 Sulfa (Sulfonamide Allergy Severe Anaphylaxis Verified 04/16/25 19:37 Antibiotics) Cephalosporins Allergy Intermediate shortness Verified 04/16/25 19:37 of breath (can take cephalexin) clarithromycin Allergy Intermediate Shortness Verified 04/16/25 19:37 of Breath gabapentin Allergy Intermediate Confusion Verified 04/16/25 19:37 hydrochlorothiazide (From Allergy Intermediate Shortness Verified 04/16/25 19:37 Hyzaar) of Breath levofloxacin (From Levaquin) Allergy Intermediate dizziness/h Verified 04/16/25 19:37 eadache/ulices sea losartan (From Cozaar) Allergy Intermediate Shortness Verified 04/16/25 19:37 of Breath metformin Allergy Intermediate strange Verified 04/16/25 19:37 feeling amoxicillin (From Augmentin) Allergy Unknown Unknown Verified 04/16/25 19:37 clavulanic acid (From Allergy Unknown Unknown Verified 04/16/25 19:37 Augmentin) duloxetine (From Cymbalta) Allergy Unknown Unknown Verified 04/16/25 19:37 fluoxetine Allergy Unknown Unknown Verified 04/16/25 19:37 NSAIDS (Non-Steroidal Allergy Unknown Unknown Verified 04/16/25 19:37 Anti-Inflamma pregabalin AdvReac Intermediate Dizziness Verified 04/16/25 19:37 doxycycline AdvReac Mild Gastrointestinal Verified 04/16/25 19:37 Upset Active Medications: Current Medications Albuterol Sulfate (Albuterol Sulfate (0.083%) 2.5 Mg/3 Ml Vial.Neb) 2.5 mg INHALE Q6H PRN PRN Reason: Wheezing Amantadine HCl (Amantadine Hcl 100 Mg Capsule) 100 mg PO BID [facility] Last Admin: 04/17/25 23:11 Dose: Not Given Amphetamine/Dextroamphetamine (Amphetamine Mixed Salts 10 Mg Tablet) 30 mg PO DAILY [facility] Last Admin: 04/17/25 23:09 Dose: Not Given Apixaban (Apixaban 5 Mg Tablet) 5 mg PO BID [facility] Last Admin: 04/17/25 23:11 Dose: Not Given Aspirin (Aspirin 81 Mg Tab.Chew) 81 mg PO DAILY [facility] Last Admin: 04/17/25 23:09 Dose: Not Given Bisacodyl (Bisacodyl 10 Mg Supp.Rect) 10 mg NC DAILY PRN PRN Reason: Constipation Brimonidine Tartrate (Brimonidine Tartrate 0.2% Oph 5 Ml Bottle) 1 drop EYE-BOTH BID [facility] Last Admin: 04/17/25 23:11 Dose: Not Given Diazepam (Diazepam 5 Mg Tablet) 5 mg PO Q8H PRN PRN Reason: Anxiety Diltiazem HCl (Diltiazem Hcl Cd 300 Mg Cap.Er.24h) 300 mg PO DAILY [facility]; Protocol Last Admin: 04/17/25 23:09 Dose: Not Given Dorzolamide HCl (Dorzolamide Hcl 2 % Ophth Doris 10 Ml Drpbtl) 1 drop EYE-BOTH BID [facility] Last Admin: 04/17/25 23:12 Dose: Not Given Empagliflozin (Empagliflozin 10 Mg Tablet) 10 mg PO DAILY [facility] Last Admin: 04/17/25 23:10 Dose: Not Given Glucagon (Glucagon Hcl 1 Mg Vial) 1 mg SUBCUT Q20M PRN PRN Reason: FSBS< 60 & unable to swallow Glucose (Glucose Gel 15 Gm Gel..Gram.) 15 gm PO Q15M PRN PRN Reason: fsbs < 50 and able to swallow Linezolid (Zyvox/D5w) 600 mg in 300 mls @ 300 mls/hr IV Q12H [facility] Insulin Glargine (Insulin Glargine,Hum.Rec.Anlog 100 Unit/Ml 10 Ml Vial) 30 unit SUBCUT BEDTIME [facility] Last Admin: 04/17/25 23:12 Dose: Not Given Insulin Human Lispro (Insulin Lispro 100 Unit/Ml 3 Ml Vial) 0 unit SUBCUT QIDACHS [facility]; Protocol Last Admin: 04/17/25 23:12 Dose: Not Given Ketorolac Tromethamine (Ketorolac Tromethamine 0.5% Op 5 Ml Drops) 1 drop EYE-RIGHT TID [facility] Last Admin: 04/17/25 23:12 Dose: Not Given Latanoprost (Latanoprost 0.005 % Ophth Doris 2.5 Ml Drops) 1 drop EYE-BOTH BEDTIME [facility] Last Admin: 04/17/25 23:12 Dose: Not Given Levothyroxine Sodium (Levothyroxine Sodium 75 Mcg Tablet) 75 mcg PO DAILY@0600 [facility] Lidocaine (Lidocaine 4 % Patch Adh..Patch) 2 patch TRANSDERMA DAILY [facility]; Protocol Last Admin: 04/17/25 23:10 Dose: Not Given Magnesium Hydroxide (Milk Of Magnesia 30 Ml Oral.Susp) 30 ml PO BEDTIME PRN PRN Reason: Constipation Melatonin (Melatonin 3 Mg Tablet) 6 mg PO BEDTIME [facility] Last Admin: 04/17/25 23:12 Dose: Not Given Metoprolol Succinate (Metoprolol Succinate Er 50 Mg Tab.Er.24h) 50 mg PO DAILY [facility]; Protocol Last Admin: 04/17/25 22:41 Dose: 50 mg Modafinil (Modafinil 100 Mg Tablet) 100 mg PO BID [facility] Last Admin: 04/17/25 23:14 Dose: Not Given Montelukast Sodium (Montelukast Sodium 10 Mg Tablet) 10 mg PO DAILY [facility] Last Admin: 04/17/25 23:10 Dose: Not Given Multivitamins/Vitamin C (Multivitamin Tablet) 1 tab PO DAILY [facility] Last Admin: 04/17/25 23:10 Dose: Not Given Nystatin (Nystatin Powder 15 Gm Bottle) 1 appl TOPICAL BID [facility]; Protocol Last Admin: 04/17/25 23:14 Dose: Not Given Omeprazole (Omeprazole 20 Mg Capsule.Dr) 20 mg PO DAILY@0630 [facility] Prednisolone Acetate (Prednisolone Acetate 1 % Oph Susp 5 Ml Drpbtl) 1 drop EYE-RIGHT TID [facility] Last Admin: 04/17/25 23:14 Dose: Not Given Promethazine HCl (Promethazine Hcl 25 Mg Tablet) 25 mg PO Q6H PRN PRN Reason: Nausea Sildenafil Citrate (Sildenafil Citrate 20 Mg Tablet) 20 mg PO TID [facility] Last Admin: 04/17/25 23:13 Dose: Not Given Sodium Biphosphate/Sodium Phosphate (Sodium Phosphate,[place]-Dibasic 133 Ml Enema) 118 ml NC BEDTIME PRN PRN Reason: Constipation Spironolactone (Spironolactone 25 Mg Tablet) 25 mg PO DAILY [facility]; Protocol Last Admin: 04/17/25 23:11 Dose: Not Given Thiamine HCl (Thiamine Hcl 100 Mg Tablet) 100 mg PO DAILY [facility] Last Admin: 04/17/25 23:11 Dose: Not Given Torsemide (Torsemide 20 Mg Tablet) 40 mg PO DAILY [facility]; Protocol Last Admin: 04/17/25 23:11 Dose: Not Given Trazodone HCl (Trazodone Hcl 50 Mg Tablet) 50 mg PO Q6H PRN PRN Reason: Insomnia Home Medications ?Medication ?Instructions ?Recorded ?Confirmed ?Last Taken ?Type amantadine HCl 100 mg capsule 100 mg PO BID 12/13/22 04/17/25 Unknown History apixaban 5 mg tablet (Eliquis) 5 mg PO BID 12/13/22 04/17/25 Unknown History brimonidine 0.2 % eye drops 1 drp ophthalmic (eye) BID 12/13/22 04/17/25 Unknown History dorzolamide 2 % eye drops 1 drp ophthalmic (eye) BID 12/13/22 04/17/25 Unknown History modafinil 100 mg tablet 100 mg PO BID 12/13/22 04/17/25 Unknown History montelukast 10 mg tablet 10 mg PO DAILY 12/13/22 04/17/25 Unknown History morphine 15 mg immediate release 15 mg PO Q8H PRN Pain 12/13/22 04/17/25 12/18/22 History tablet promethazine 25 mg tablet 25 mg PO Q6H PRN Nausea 12/13/22 04/17/25 Unknown History sildenafil (pulm.hypertension) 20 20 mg PO TID 12/13/22 04/17/25 Unknown History mg tablet albuterol sulfate 2.5 mg/3 mL 2.5 mg inhalation Q6H PRN Wheezing 04/17/25 04/17/25 Unknown History (0.083 %) solution for nebulization aspirin 81 mg chewable tablet 81 mg PO DAILY 04/17/25 04/17/25 Unknown History bisacodyl 10 mg rectal suppository 10 mg NC DAILY PRN Constipation 04/17/25 04/17/25 Unknown History camphor-menthol 0.5 %-0.5 % lotion 1 appl topical BID PRN Itching 04/17/25 04/17/25 Unknown History dextroamphetamine-amphetamine 30 30 mg PO DAILY 04/17/25 04/17/25 Unknown History mg tablet (Adderall) dextrose 40 % oral gel (Glucose 15 g PO Q15M PRN fsbs < 50 and 04/17/25 04/17/25 Unknown History Gel) able to swallow diazepam 5 mg tablet 5 mg PO Q8H PRN Anxiety 04/17/25 04/17/25 Unknown History diclofenac sodium 1 % topical gel 2 g topical QID 04/17/25 04/17/25 Unknown History diltiazem HCl 300 mg capsule,24 300 mg PO DAILY 04/17/25 04/17/25 Unknown History hr,extended release dulaglutide 3 mg/0.5 mL 3 mg subcut TU@0900 04/17/25 04/17/25 Unknown History subcutaneous pen injector (Trulicity) dupilumab 300 mg/2 mL subcutaneous 300 mg subcut Q2W 04/17/25 04/17/25 Unknown History syringe (Dupixent) empagliflozin 10 mg tablet 10 mg PO DAILY 04/17/25 04/17/25 Unknown History (Jardiance) glucagon 1 mg solution for 1 mg subcut Q20M PRN fsbs beloq 60 04/17/25 04/17/25 Unknown History injection and unable to swallow insulin glargine 100 unit/mL (3 30 unit subcut BEDTIME 04/17/25 04/17/25 Unknown History mL) subcutaneous pen (Lantus Solostar U-100 Insulin) insulin lispro 100 unit/mL 1 sliding scale dose subcut TIDAC 04/17/25 04/17/25 Unknown History subcutaneous solution (Humalog U-100 Insulin) ketorolac 0.5 % eye drops 1 drp ophthalmic-Right TID 04/17/25 04/17/25 Unknown History latanoprost 0.005 % eye drops 1 drp ophthalmic (eye) BEDTIME 04/17/25 04/17/25 Unknown History levothyroxine 75 mcg tablet 75 mcg PO DAILY@0600 04/17/25 04/17/25 Unknown History lidocaine 4 % topical patch 2 patch topical DAILY 04/17/25 04/17/25 Unknown History linezolid 600 mg tablet 600 mg PO BID 04/17/25 04/17/25 Unknown History magnesium hydroxide 400 mg/5 mL 30 ml PO BEDTIME PRN Constipation 04/17/25 04/17/25 Unknown History oral suspension (Milk of Magnesia) melatonin 5 mg tablet 5 mg PO BEDTIME 04/17/25 04/17/25 Unknown History metoprolol succinate 50 mg 50 mg PO DAILY 04/17/25 04/17/25 Unknown History tablet,extended release 24 hr multivitamin with minerals 1 tab PO DAILY 04/17/25 04/17/25 Unknown History nystatin 100,000 unit/gram topical 1 appl topical BID 04/17/25 04/17/25 Unknown History powder pantoprazole 20 mg tablet,delayed 20 mg PO DAILY@0630 04/17/25 04/17/25 Unknown History release prednisolone acetate 1 % eye 1 drp ophthalmic-Right TID 04/17/25 04/17/25 Unknown History drops,suspension sodium chloride 7 % for 1 inh inhalation BID 04/17/25 04/17/25 Unknown History nebulization sodium phosphates 19 gram-7 118 ml NC BEDTIME PRN Constipation 04/17/25 04/17/25 Unknown History gram/118 mL enema (Fleet Enema) spironolactone 25 mg tablet 25 mg PO DAILY 04/17/25 04/17/25 Unknown History thiamine HCl (vitamin B1) 100 mg 100 mg PO DAILY 04/17/25 04/17/25 Unknown History tablet torsemide 20 mg tablet 40 mg PO DAILY 04/17/25 04/17/25 Unknown History trazodone 50 mg tablet 50 mg PO Q6H PRN Insomnia 04/17/25 04/17/25 Unknown History Physical Exam Vital Signs and Narrative: Vital Signs: Last Vital Signs Temp 98.5 F 04/17/25 23:00 Pulse 89 04/18/25 02:37 Resp 14 04/18/25 02:37 BP 104/61 04/18/25 02:37 Pulse Ox 97 04/17/25 23:00 O2 Del Method Room Air 04/17/25 23:00 BMI result Body Mass Index 25.5 General: AOx3, no acute distress Resp: CTA bilaterally CVS: S1, S2, RRR GI: +BS, generalized tenderness, no distention Skin: Warm, dry Neuro: Cranial nerves II-XII grossly intact bilaterally. Motor grossly intact bilaterally Extremities: No pitting edema Psych: Appropriate affect Const: General: No confusion Orientation/consciousness: No confusion Neuro: General: No confusion Results Labs 04/17/25 20:41 04/17/25 20:41 Labs: Laboratory Results - last 24 hr 04/17/25 04/17/25 04/17/25 20:41 20:50 21:32 MCV 88.5 MCH 28.6 MCHC 32.3 RDW 16.2 H Plt Count 379 MPV 8.9 L Immature Gran % (Auto) 3.8 H Neut % (Auto) 74.7 H Lymph % (Auto) 11.7 L [place] % (Auto) 8.3 Eos % (Auto) 0.8 Baso % (Auto) 0.7 Lymph # (Auto) 1.9 [place] # (Auto) 1.3 H Eos # (Auto) 0.1 Baso # (Auto) 0.1 Abs Immat Gran (auto) 0.60 H Absolute Neuts (auto) 11.9 H Absolute Nucleated RBC 0.000 Nucleated RBC % (auto) 0.0 Anion Gap 16 Estim Creat Clear Calc 29.8 Estimated GFR 32 Random Glucose 194 H Lactic Acid 2.3 H* Lactic Acid F/U @ 2Hr Lactic Acid F/U @ 4Hr Calcium 9.1 Total Bilirubin 0.3 AST 47 H ALT 20 Alkaline Phosphatase 275 H Troponin I High Sens 9.7 Total Protein 6.9 Albumin 3.2 L Urine Color Yellow Urine Appearance Turbid Urine pH 5.5 Ur Specific [place] 1.020 Urine Protein 30 (1+) H Urine Glucose (UA) >=1000 H Urine Ketones Negative Urine Blood Large (3+) H Urine Nitrite Negative Ur Leukocyte Esterase Moderate (2+) H Urine RBC >20 H Urine WBC >50 H Ur Squamous Epith Cells 3-5 Urine Bacteria 1+ Hyaline Casts 3-5 Urine Yeast Present 04/17/25 04/18/25 23:14 01:35 MCV MCH MCHC RDW Plt Count MPV Immature Gran % (Auto) Neut % (Auto) Lymph % (Auto) [place] % (Auto) Eos % (Auto) Baso % (Auto) Lymph # (Auto) [place] # (Auto) Eos # (Auto) Baso # (Auto) Abs Immat Gran (auto) Absolute Neuts (auto) Absolute Nucleated RBC Nucleated RBC % (auto) Anion Gap Estim Creat Clear Calc Estimated GFR Random Glucose Lactic Acid Lactic Acid F/U @ 2Hr 2.1 H* Lactic Acid F/U @ 4Hr 1.4 Calcium Total Bilirubin AST ALT Alkaline Phosphatase Troponin I High Sens Total Protein Albumin Urine Color Urine Appearance Urine pH Ur Specific [place] Urine Protein Urine Glucose (UA) Urine Ketones Urine Blood Urine Nitrite Ur Leukocyte Esterase Urine RBC Urine WBC Ur Squamous Epith Cells Urine Bacteria Hyaline Casts Urine Yeast Assessment and Plan (1) Sepsis: Status: Acute (2) Acute UTI: Status: Acute (3) Atrial fibrillation with RVR: Status: Acute (4) PREM (acute kidney injury): Status: Acute Plan Patient is a 65-year-old female with a past medical history significant for MS, CAD, PE on Eliquis, CVA, type 2 diabetes and chronic pain disorder with a recent admission at [facility] for 1 month long for urosepsis, discharged 3 days ago, who presented from her rehab facility due to chest pain on 04/16. Patient was being monitored in ED arbs, found to have AFib with RVR, leukocytosis and UA positive again Sepsis secondary to UTI - linezolid per urine culture from [facility] - urine culture pending - blood cultures pending - blood pressure is soft, continue to monitor - hold torsemide and spironolactone x 24 hours to just sepsis - monitor CBC and BMP Chest pain - EKG nonischemic, troponins flat - monitor on telemetry AFib with RVR, resolved - continue Eliquis, metoprolol and diltiazem PREM, likely secondary to dehydration - monitor BMP CAD - aspirin Type 2 diabetes - diabetic diet - sliding scale insulin - Lantus - Jardiance Hypothyroid - levothyroxine DNR/DNI VTE prophylaxis: Eliquis Patient with sepsis secondary to UTI, complicated by AFib with RVR and PREM, requiring admission for at least 2 midnight stay for IV antibiotics and monitoring. Quality Stroke Does the patient have a stroke diagnosis?: No VTE Prior VTE?: Yes VTE Risk Level:: Medical - moderate - high VTE Device Contraindication: Treatment Not Indicated VTE Drug Contraindication: N/A - Med Ordered
[2025-04-18 05:10] LABS: MANUAL DIFF FLAG NO
[2025-04-18 05:13] LABS: Hematocrit 22.8 % (37.0-47.0); Hemoglobin 7.1 g/dl (12.0-16.0); Imm Gran Abs Auto 0.51 X10*3/uL (0.00-0.03); Imm Gran Pct Auto 3.7 % (0.0-0.4); Lymphocytes Absolute Auto 1.1 X10*3/uL (1.2-4.9); Mean Corpuscular HGB Conc 31.1 g/dl (31.0-35.0); Mean Corpuscular Hemoglobin 28.0 pg (27.0-33.0); Mean Corpuscular Volume 89.8 fL (80.0-98.0); NRBC Abs Auto 0.000 X10*3/uL (0.0-0.012); NRBC Pct Auto 0.0 /100WBC (0.0-0.2); Platelet Count 316 X10*3/uL (160-400); Red Blood Count 2.54 X10*6/uL (4.20-5.50); White Blood Count 13.7 X10*3/uL (4.8-10.8)
[2025-04-18 05:24] LABS: Anion Gap 12 (12-20); Blood Urea Nitrogen 27 mg/dL (9-16); Calcium 8.4 mg/dL (8.4-10.2); Carbon Dioxide 22 mmol/L (22-29); Chloride 105 mmol/L (96-108); Creatinine Clr Calc Pharmacy 36.4; Estimated Glomerular Filt Rate 40; Potassium 3.3 mmol/L (3.3-5.1); Sodium 136 mmol/L (135-145)
--- NOTE | 2025-04-18 06:47 | MHC.EDTECH ---
patient removed monitoring engineer leads, BP cuff and o2 probe. stated it cant be on for too long. Stated RN never came back. educated and demonstrated call rush work to please communicate for her safety and monitoring due to chest pain. Pt was repositioned/ Step up for breakfast. RN aware
--- NOTE | 2025-04-18 07:01 | MHC.EDTECH ---
incon care given pt incon of stool. Pt was clean/placed on the bedpan. callbell in hand.
--- NOTE | 2025-04-18 07:34 | HO.PM.IMPN ---
Subjective Subjective Date of Service: 04/18/25 Interval History: Patient is chest pain-free, however she is undergoing sepsis workup and initiated her on antibiotics linezolid and fluids Patient's blood pressure is soft-we will hold her blood pressure meds spironolactone, torsemide Hold sildenafil as well For pain meds resumed her tramadol, started her on Tylenol, morphine, (she appears to like morphine better) Home meds reconciled and initiated according to clinical status Review of Systems Review of Systems: Yes all other systems are reviewed and are negative Physical Exam Exam: Exam: General: AOx3, mild distress-appears to be uncomfortable Resp: CTA bilaterally CVS: S1, S2, RRR GI: +BS, NT, no distention Neuro: Cranial nerves II-XII grossly intact bilaterally. Motor grossly intact bilaterally Vital Signs: Vital Signs: Last Vital Signs Temp 98.5 F 04/17/25 23:00 Pulse 90 04/18/25 06:46 Resp 18 04/18/25 03:32 BP 110/62 04/18/25 03:32 Pulse Ox 99 04/18/25 06:46 O2 Del Method Room Air 04/18/25 06:46 BMI result Body Mass Index 25.5 Objective Data Active Medications Acetaminophen (Acetaminophen 325 Mg Tablet) 975 mg PO Q6H PRN PRN Reason: Pain, Mild 1-3,fever,headache Albuterol Sulfate (Albuterol Sulfate (0.083%) 2.5 Mg/3 Ml Vial.Neb) 2.5 mg INHALE Q6H PRN PRN Reason: Wheezing Amantadine HCl (Amantadine Hcl 100 Mg Capsule) 100 mg PO BID [facility] Last Admin: 04/17/25 23:11 Dose: Not Given Documented By: GUS Non-Admin Reason: Physician Held Med Amphetamine/Dextroamphetamine (Amphetamine Mixed Salts 10 Mg Tablet) 30 mg PO DAILY [facility] Last Admin: 04/17/25 23:09 Dose: Not Given Documented By: GUS Non-Admin Reason: Physician Held Med Apixaban (Apixaban 5 Mg Tablet) 5 mg PO BID [facility] Last Admin: 04/17/25 23:11 Dose: Not Given Documented By: GUS Non-Admin Reason: Physician Held Med Aspirin (Aspirin 81 Mg Tab.Chew) 81 mg PO DAILY [facility] Last Admin: 04/17/25 23:09 Dose: Not Given Documented By: GUS Non-Admin Reason: Physician Held Med Bisacodyl (Bisacodyl 10 Mg Supp.Rect) 10 mg [place] DAILY PRN PRN Reason: Constipation Brimonidine Tartrate (Brimonidine Tartrate 0.2% Oph 5 Ml Bottle) 1 drop EYE-BOTH BID [facility] Last Admin: 04/17/25 23:11 Dose: Not Given Documented By: GUS Non-Admin Reason: Physician Held Med Calcium Carbonate (Calcium Carbonate 750 Mg Tab.Chew) 750 mg PO Q4H PRN PRN Reason: Heartburn Diazepam (Diazepam 5 Mg Tablet) 5 mg PO Q8H PRN PRN Reason: Anxiety Last Admin: 04/18/25 04:40 Dose: 5 mg Documented By: GUS Diltiazem HCl (Diltiazem Hcl Cd 300 Mg Cap.Er.24h) 300 mg PO DAILY [facility]; Protocol Last Admin: 04/17/25 23:09 Dose: Not Given Documented By: GUS Non-Admin Reason: Physician Held Med Dorzolamide HCl (Dorzolamide Hcl 2 % Ophth Doris 10 Ml Drpbtl) 1 drop EYE-BOTH BID [facility] Last Admin: 04/17/25 23:12 Dose: Not Given Documented By: GUS Non-Admin Reason: Physician Held Med Empagliflozin (Empagliflozin 10 Mg Tablet) 10 mg PO DAILY [facility] Last Admin: 04/17/25 23:10 Dose: Not Given Documented By: GUS Non-Admin Reason: Physician Held Med Glucagon (Glucagon Hcl 1 Mg Vial) 1 mg SUBCUT Q20M PRN PRN Reason: FSBS< 60 & unable to swallow Glucose (Glucose Gel 15 Gm Gel..Gram.) 15 gm PO Q15M PRN PRN Reason: fsbs < 50 and able to swallow Linezolid (Zyvox/D5w) 600 mg in 300 mls @ 300 mls/hr IV Q12H [facility] Insulin Glargine (Insulin Glargine,Hum.Rec.Anlog 100 Unit/Ml 10 Ml Vial) 30 unit SUBCUT BEDTIME [facility] Last Admin: 04/17/25 23:12 Dose: Not Given Documented By: GUS Non-Admin Reason: Physician Held Med Insulin Human Lispro (Insulin Lispro 100 Unit/Ml 3 Ml Vial) 0 unit SUBCUT QIDACHS [facility]; Protocol Last Admin: 04/17/25 23:12 Dose: Not Given Documented By: GUS Non-Admin Reason: Physician Held Med Ketorolac Tromethamine (Ketorolac Tromethamine 0.5% Op 5 Ml Drops) 1 drop EYE-RIGHT TID [facility] Last Admin: 04/17/25 23:12 Dose: Not Given Documented By: GUS Non-Admin Reason: Physician Held Med Latanoprost (Latanoprost 0.005 % Ophth Doris 2.5 Ml Drops) 1 drop EYE-BOTH BEDTIME [facility] Last Admin: 04/17/25 23:12 Dose: Not Given Documented By: GUS Non-Admin Reason: Physician Held Med Levothyroxine Sodium (Levothyroxine Sodium 75 Mcg Tablet) 75 mcg PO DAILY@0600 [facility] Last Admin: 04/18/25 06:46 Dose: 75 mcg Documented By: GUS Lidocaine (Lidocaine 4 % Patch Adh..Patch) 2 patch TRANSDERMA DAILY [facility]; Protocol Last Admin: 04/17/25 23:10 Dose: Not Given Documented By: GUS Non-Admin Reason: Physician Held Med Magnesium Hydroxide (Milk Of Magnesia 30 Ml Oral.Susp) 30 ml PO BEDTIME PRN PRN Reason: Constipation Melatonin (Melatonin 3 Mg Tablet) 6 mg PO BEDTIME [facility] Last Admin: 04/17/25 23:12 Dose: Not Given Documented By: GUS Non-Admin Reason: Physician Held Med Metoprolol Succinate (Metoprolol Succinate Er 50 Mg Tab.Er.24h) 50 mg PO DAILY [facility]; Protocol Last Admin: 04/17/25 22:41 Dose: 50 mg Documented By: GUS Modafinil (Modafinil 100 Mg Tablet) 100 mg PO BID [facility] Last Admin: 04/17/25 23:14 Dose: Not Given Documented By: GUS Non-Admin Reason: Physician Held Med Montelukast Sodium (Montelukast Sodium 10 Mg Tablet) 10 mg PO DAILY [facility] Last Admin: 04/17/25 23:10 Dose: Not Given Documented By: GUS Non-Admin Reason: Physician Held Med Multivitamins/Vitamin C (Multivitamin Tablet) 1 tab PO DAILY [facility] Last Admin: 04/17/25 23:10 Dose: Not Given Documented By: GUS Non-Admin Reason: Physician Held Med Nystatin (Nystatin Powder 15 Gm Bottle) 1 appl TOPICAL BID [facility]; Protocol Last Admin: 04/17/25 23:14 Dose: Not Given Documented By: GUS Non-Admin Reason: Physician Held Med Omeprazole (Omeprazole 20 Mg Capsule.Dr) 20 mg PO DAILY@0630 [facility] Last Admin: 04/18/25 06:47 Dose: Not Given Documented By: GUS Non-Admin Reason: Patient Refused Ondansetron HCl (Ondansetron Hcl 4 Mg/2 Ml Vial) 4 mg IVPUSH Q8H PRN PRN Reason: Nausea and Vomiting Oxycodone HCl (Oxycodone Hcl Immed Release 5 Mg Tablet) 5 mg PO Q6H PRN PRN Reason: Pain, Severe (Pain Scale 7-10) Prednisolone Acetate (Prednisolone Acetate 1 % Oph Susp 5 Ml Drpbtl) 1 drop EYE-RIGHT TID [facility] Last Admin: 04/17/25 23:14 Dose: Not Given Documented By: GUS Non-Admin Reason: Physician Held Med Promethazine HCl (Promethazine Hcl 25 Mg Tablet) 25 mg PO Q6H PRN PRN Reason: Nausea Last Admin: 04/18/25 04:43 Dose: 25 mg Documented By: GUS Sildenafil Citrate (Sildenafil Citrate 20 Mg Tablet) 20 mg PO TID [facility] Last Admin: 04/17/25 23:13 Dose: Not Given Documented By: GUS Non-Admin Reason: Physician Held Med Sodium Biphosphate/Sodium Phosphate (Sodium Phosphate,[place]-Dibasic 133 Ml Enema) 118 ml [place] BEDTIME PRN PRN Reason: Constipation Sodium Chloride (0.9 % Sodium Chloride Flush 3 Ml Syringe) [facility] Spironolactone (Spironolactone 25 Mg Tablet) 25 mg PO DAILY [facility]; Protocol Last Admin: 04/17/25 23:11 Dose: Not Given Documented By: GUS Non-Admin Reason: Physician Held Med Thiamine HCl (Thiamine Hcl 100 Mg Tablet) 100 mg PO DAILY [facility] Last Admin: 04/17/25 23:11 Dose: Not Given Documented By: GUS Non-Admin Reason: Physician Held Med Torsemide (Torsemide 20 Mg Tablet) 40 mg PO DAILY [facility]; Protocol Last Admin: 04/17/25 23:11 Dose: Not Given Documented By: GUS Non-Admin Reason: Physician Held Med Tramadol HCl (Tramadol Hcl 50 Mg Tablet) 50 mg PO Q6H PRN PRN Reason: Pain, Moderate(Pain Scale 4-6) Trazodone HCl (Trazodone Hcl 50 Mg Tablet) 50 mg PO Q6H PRN PRN Reason: Insomnia Labs 04/18/25 04:28 04/18/25 04:28 Labs: Laboratory Results - last 24 hr 04/17/25 04/17/25 04/17/25 20:41 20:50 21:32 MCV 88.5 MCH 28.6 MCHC 32.3 RDW 16.2 H Plt Count 379 MPV 8.9 L Immature Gran % (Auto) 3.8 H Neut % (Auto) 74.7 H Lymph % (Auto) 11.7 L [place] % (Auto) 8.3 Eos % (Auto) 0.8 Baso % (Auto) 0.7 Lymph # (Auto) 1.9 [place] # (Auto) 1.3 H Eos # (Auto) 0.1 Baso # (Auto) 0.1 Abs Immat Gran (auto) 0.60 H Absolute Neuts (auto) 11.9 H Absolute Nucleated RBC 0.000 Nucleated RBC % (auto) 0.0 Anion Gap 16 Estim Creat Clear Calc 29.8 Estimated GFR 32 Random Glucose 194 H Lactic Acid 2.3 H* Lactic Acid F/U @ 2Hr Lactic Acid F/U @ 4Hr Calcium 9.1 Total Bilirubin 0.3 AST 47 H ALT 20 Alkaline Phosphatase 275 H Troponin I High Sens 9.7 Total Protein 6.9 Albumin 3.2 L Urine Color Yellow Urine Appearance Turbid Urine pH 5.5 Ur Specific [place] 1.020 Urine Protein 30 (1+) H Urine Glucose (UA) >=1000 H Urine Ketones Negative Urine Blood Large (3+) H Urine Nitrite Negative Ur Leukocyte Esterase Moderate (2+) H Urine RBC >20 H Urine WBC >50 H Ur Squamous Epith Cells 3-5 Urine Bacteria 1+ Hyaline Casts 3-5 Urine Yeast Present 04/17/25 04/18/25 04/18/25 23:14 01:35 04:28 MCV 89.8 MCH 28.0 MCHC 31.1 RDW 16.4 H Plt Count 316 MPV 9.1 L Immature Gran % (Auto) 3.7 H Neut % (Auto) 78.3 H Lymph % (Auto) 8.3 L [place] % (Auto) 8.3 Eos % (Auto) 0.7 Baso % (Auto) 0.7 Lymph # (Auto) 1.1 L [place] # (Auto) 1.1 Eos # (Auto) 0.1 Baso # (Auto) 0.1 Abs Immat Gran (auto) 0.51 H Absolute Neuts (auto) 10.7 H Absolute Nucleated RBC 0.000 Nucleated RBC % (auto) 0.0 Anion Gap 12 Estim Creat Clear Calc 36.4 Estimated GFR 40 Random Glucose 154 H Lactic Acid Lactic Acid F/U @ 2Hr 2.1 H* Lactic Acid F/U @ 4Hr 1.4 Calcium 8.4 D Total Bilirubin AST ALT Alkaline Phosphatase Troponin I High Sens Total Protein Albumin Urine Color Urine Appearance Urine pH Ur Specific [place] Urine Protein Urine Glucose (UA) Urine Ketones Urine Blood Urine Nitrite Ur Leukocyte Esterase Urine RBC Urine WBC Ur Squamous Epith Cells Urine Bacteria Hyaline Casts Urine Yeast Assessment and Plan (1) Acute UTI: Status: Acute Plan Patient is a 65-year-old female with a past medical history significant for MS, CAD, PE on Eliquis, CVA, type 2 diabetes and chronic pain disorder with a recent admission at [facility] for 1 month long for urosepsis, discharged 3 days ago, who presented from her rehab facility due to chest pain on 04/16. Patient was being monitored in ED arbs, found to have AFib with RVR, leukocytosis and UA positive again. Patient is being monitored hemodynamic status and continued on IV antibiotics-linezolid based on prior cultures. Sepsis secondary to UTI - linezolid per urine culture from [facility] - urine culture drawn here pending - blood cultures drawn he pending - blood pressure is soft, we will hold blood pressure meds spironolactone, torsemide, sildenafil, and given UTI we will also hold empagliflozin Chest pain- repeat 03/18 - atypical - non-cardiogenic - EKG nonischemic, troponins flat - monitor on telemetry AFib with RVR, resolved - continue Eliquis, metoprolol and diltiazem PREM, likely secondary to dehydration - monitor BMP CAD - aspirin Type 2 diabetes - diabetic diet - sliding scale insulin - Lantus - Hold Jardiance - given UTI - despite risks vs benefits Hypothyroid - levothyroxine DNR/DNI VTE prophylaxis: Kai Patient with sepsis secondary to UTI, complicated by AFib with RVR and PREM, requiring admission for at least 1-2 midnight stay for IV antibiotics and monitoring. This note is constructed using voice recognition software. While every effort has been made to ensure accuracy, customer solutions representative errors may have been included. Quality Stroke Does the patient have a stroke diagnosis?: No VTE Prior VTE?: Yes VTE Risk Level:: Medical - moderate - high VTE Device Contraindication: Treatment Not Indicated VTE Drug Contraindication: N/A - Med Ordered
--- NOTE | 2025-04-18 07:45 | PC.NURSE ---
Pt refused 0730 am POC- MD aware. Pt intermittently falling back to sleep, respirations even and unlabored, no increased wob/sob noted. Call rush within reach, all needs met at this time.
--- NOTE | 2025-04-18 09:48 | PC.NURSE ---
Morning medications delayed d/t pt sleeping- pt requesting meds at a later time, MD aware. Pt arousable to verbal stimuli- increased risk for aspiration d/t intermittently falling back asleep, will attempt meds when patient is more alert.
[2025-04-18] MEDS: Lidocaine 4 % Patch ADH..PATCH 2 PATCH TRANSDERMA (10:50)
[2025-04-18] MEDS: Amphetamine Mixed Salts 10 MG TABLET 30 MG PO (10:51)
[2025-04-18] MEDS: Linezolid/D5W 600 MG/300 ML PIGGYBACK 300 MG IV (12:41)
[2025-04-18] MEDS: 0.9 % Sodium Chloride Flush 3 ML SYRINGE IVFLUSH (12:41)
[2025-04-18 12:55] LABS: Glucose, Whole Blood 167 mg/dL (60-115)
--- NOTE | 2025-04-18 12:59 | MHC.CM.PN ---
CM met with Patient and her Son/Olvin at bedside, in the ED, and addressed IMM with them; original was given to Patient and a copy will be placed on the chart. Patient recently at [facility] and she does not want to return there. Patient has a [employer] 40 hours/week and home/resume [employer] & new HVNA VS STR at a different SNF is the tentative plan. CM has initiated and will follow for dc planning. PCP/MORTGAGE FIELD INSPECTOR is Griselda Bello. Niece/Ana Luisa is the current HCP; Patient may want to change her Agent to her Son.
--- NOTE | 2025-04-18 16:00 | PC.NURSE ---
Pt BP noted to be soft 90s/50s- MD Cesar notified. No new orders at this time. Pt remains asymptomatic. Pt incontinent of urine and loose stools- cleaned up, changed, and repositioned. Redness noted to coccyx- pink allevyn foam pad applied. Call rush within reach, all needs met at this time.
--- NOTE | 2025-04-18 17:52 | ECG_ITS ---
Test Reason : CP 03/18 Blood Pressure : */* mmHG Vent. Rate : 91 BPM Atrial Rate : 91 BPM P-R Int : 108 ms QRS Dur : 98 ms QT Int : 394 ms P-R-T Axes : 73 26 -19 degrees QTcB Int : 484 ms Sinus rhythm with short LA with Premature supraventricular complexes Low voltage QRS Incomplete right bundle branch block Nonspecific ST and T wave abnormality Abnormal ECG When compared with ECG of 17-Apr-2025 20:35, Previous ECG has undetermined rhythm, needs review ST no longer depressed in Inferior leads Nonspecific T wave abnormality has replaced inverted T waves in Lateral leads Referred By: Heather Cesar Electronically Signed By:
[2025-04-18 18:43] LABS: Troponin-I High Sensitivity 6.4 ng/L (<3.5-17.0)
[2025-04-18 21:02] LABS: Glucose, Whole Blood 201 mg/dL (60-115)
[2025-04-18] MEDS: Insulin Glargine,Hum.rec.anlog 100 UNIT/ML 10 ML VIAL 30 UNIT SUBCUT (21:18)
[2025-04-19] VITALS (9 sets, daily range): BP systolic 90–124; BP diastolic 52–65; PULSE 91–150; RESP 18–20; TEMP 36.1–36.9; O2SAT 95–100
[2025-04-19] MEDS: Linezolid/D5W 600 MG/300 ML PIGGYBACK 300 MG IV ×3 (00:06→21:59)
[2025-04-19] MEDS: 0.9 % Sodium Chloride Flush 3 ML SYRINGE IVFLUSH ×3 (00:06→15:35)
[2025-04-19 05:46] LABS: MANUAL DIFF FLAG NO
[2025-04-19 05:51] LABS: Hematocrit 23.3 % (37.0-47.0); Hemoglobin 7.5 g/dl (12.0-16.0); Imm Gran Abs Auto 0.25 X10*3/uL (0.00-0.03); Imm Gran Pct Auto 2.0 % (0.0-0.4); Lymphocytes Absolute Auto 1.1 X10*3/uL (1.2-4.9); Mean Corpuscular HGB Conc 32.2 g/dl (31.0-35.0); Mean Corpuscular Hemoglobin 29.1 pg (27.0-33.0); Mean Corpuscular Volume 90.3 fL (80.0-98.0); NRBC Abs Auto 0.000 X10*3/uL (0.0-0.012); NRBC Pct Auto 0.0 /100WBC (0.0-0.2); Platelet Count 336 X10*3/uL (160-400); Red Blood Count 2.58 X10*6/uL (4.20-5.50); White Blood Count 12.3 X10*3/uL (4.8-10.8)
--- NOTE | 2025-04-19 05:57 | PC.NURSE ---
Patient complaining of 10/10 chest and generalized body pain 2 hours after receiving PRN morphine around 9pm, this RN offered PRN Tylenol and or tramadol to patient patient stated I have an allergy to Tylenol and tramadol, am I able to have morphine? Overnight provider made aware of allergy to medications and ordered 1x dose 1mg IVP morphine with good effect.
[2025-04-19 06:05] LABS: Anion Gap 13 (12-20); Blood Urea Nitrogen 28 mg/dL (9-16); Calcium 8.6 mg/dL (8.4-10.2); Carbon Dioxide 19 mmol/L (22-29); Chloride 107 mmol/L (96-108); Creatinine Clr Calc Pharmacy 41.4; Estimated Glomerular Filt Rate 47; Potassium 3.3 mmol/L (3.3-5.1); Sodium 136 mmol/L (135-145)
[2025-04-19 07:14] LABS: Glucose, Whole Blood 217 mg/dL (60-115)
--- NOTE | 2025-04-19 07:16 | HO.PM.IMPN ---
Subjective Subjective Date of Service: 04/19/25 Interval History: Had a very prolonged 3 rounds of discussion with the patient and the family members son Olvin who is the healthcare proxy over the phone-witnessed by my colleagues hospitalist and at the bedside by MARE Cortez Patient does have male multiple medical comorbidities and has been having a very prolonged complicated multiple hospitalizations the past few months. I have spoken to the son in the morning-we requested records from [facility], upon review of records from [facility], it appears that the patient has had a very prolonged complicated prolonged hospitalization requiring ICU level of care, with quick return of less than 1 day to the ED at our hospital for chest pain which revealed AFib with RVR, persistent leukocytosis-yet to complete linezolid for E faecalis UTI. Initially I was not aware of the patient's son stating he wanted to speak to me stat and the need for understanding her prognostication, however upon review of discharge packet from [facility] which I received after 17:00, I spoke to the patient's son, in the presence of bedside MARE Cortez, and reviewed it while I was talking to the patient's son and explained to him that we would take it 1 day at a time. However at around 17:40, bedside MARE Cortez paged me that the patient went into AFib with RVR necessitating Lopressor and a soft blood pressure with concern of hypotension and decompensation. Hence I called the patient's son again in the presence of my chief hospitalist Dr. Duron and had a prolonged 40 minute discussion regarding her multiple medical comorbidities. Patient's son's rick was also over the phone. They both are in agreement that they would not like her to suffer and would want to speak to her in person unchanged her code status after discussion with her to [employer]. Patient's son was very overwhelmed and tearful and I did my best to reassure him that she is getting the best care possible. They are very thankful for the care that she is receiving here in this hospital and the fact that I was able to explain at length about her prognostication. Also explained that the patient's prognosis is based on the current snapshot, and she is hospice appropriate. Hence I have also requested the RN request the night RN to allow the patient's son and rick to come to the bedside at around 20:00 as they live in [place] I will also pass this along to the night attending coming on service. Review of Systems Review of Systems: Yes all other systems are reviewed and are negative, Unobtainable due to mental condition and Unobtainable due to mental status Physical Exam Exam: Exam: General: AOx3, very sick frail looking appears to be mildly uncomfortable, in a position, unable to specify exactly what is the problem She states she is sinking into the bed, I did tell her that she has a lipped down and that she we will be propped up by the nurses once they are done with the morning rounds. Resp: Rhonchi and rales bilateral, mild wheezing CVS: tachycardia GI: [place], diffusely tender ,no guarding no rigidity Neuro: Motor grossly intact bilaterally Vital Signs: Vital Signs: Last Vital Signs Temp 98.5 F 04/19/25 03:12 Pulse 93 04/19/25 03:12 Resp 18 04/19/25 03:12 BP 98/52 L 04/19/25 03:12 Pulse Ox 100 04/19/25 03:12 O2 Del Method Room Air 04/19/25 03:12 BMI result Body Mass Index 25.5 Objective Data Active Medications Acetaminophen (Acetaminophen 325 Mg Tablet) 975 mg PO Q6H PRN PRN Reason: Pain, Mild 1-3,fever,headache Albuterol Sulfate (Albuterol Sulfate (0.083%) 2.5 Mg/3 Ml Vial.Neb) 2.5 mg INHALE Q6H PRN PRN Reason: Wheezing Amantadine HCl (Amantadine Hcl 100 Mg Capsule) 100 mg PO BID [facility] Last Admin: 04/18/25 21:18 Dose: 100 mg Documented By: CHAD Amphetamine/Dextroamphetamine (Amphetamine Mixed Salts 10 Mg Tablet) 30 mg PO DAILY [facility] Last Admin: 04/18/25 10:51 Dose: 30 mg Documented By: HAROON Apixaban (Apixaban 5 Mg Tablet) 5 mg PO BID [facility] Last Admin: 04/18/25 21:18 Dose: 5 mg Documented By: CHAD Aspirin (Aspirin 81 Mg Tab.Chew) 81 mg PO DAILY [facility] Last Admin: 04/18/25 10:53 Dose: 81 mg Documented By: HAROON Bisacodyl (Bisacodyl 10 Mg Supp.Rect) 10 mg MD DAILY PRN On Hold: 04/18/25 17:30 PRN Reason: Constipation Brimonidine Tartrate (Brimonidine Tartrate 0.2% Oph 5 Ml Bottle) 1 drop EYE-BOTH BID [facility] Last Admin: 04/18/25 23:22 Dose: 1 drop Documented By: CHAD Calcium Carbonate (Calcium Carbonate 750 Mg Tab.Chew) 750 mg PO Q4H PRN PRN Reason: Heartburn Diazepam (Diazepam 5 Mg Tablet) 5 mg PO Q8H PRN PRN Reason: Anxiety Last Admin: 04/18/25 04:40 Dose: 5 mg Documented By: GUS Diltiazem HCl (Diltiazem Hcl Cd 300 Mg Cap.Er.24h) 300 mg PO DAILY [facility]; Protocol Last Admin: 04/18/25 12:03 Dose: Not Given Documented By: HAROON Non-Admin Reason: Physician Held Med Dorzolamide HCl (Dorzolamide Hcl 2 % Ophth Doris 10 Ml Drpbtl) 1 drop EYE-BOTH BID [facility] Last Admin: 04/18/25 23:23 Dose: 1 drop Documented By: CHAD Empagliflozin (Empagliflozin 10 Mg Tablet) 10 mg PO DAILY [facility] On Hold: 04/18/25 17:41 Last Admin: 04/18/25 10:53 Dose: Not Given Documented By: HAROON Non-Admin Reason: Patient Refused Glucagon (Glucagon Hcl 1 Mg Vial) 1 mg SUBCUT Q20M PRN PRN Reason: FSBS< 60 & unable to swallow Glucose (Glucose Gel 15 Gm Gel..Gram.) 15 gm PO Q15M PRN PRN Reason: fsbs < 50 and able to swallow Linezolid (Zyvox/D5w) 600 mg in 300 mls @ 300 mls/hr IV Q12H [facility] Last Infusion: 04/19/25 01:12 Dose: Infused Documented By: CHAD Sodium Chloride (Ns) 1,000 mls @ 100 mls/hr IVCONT .Q10H [facility] Last Admin: 04/19/25 06:22 Dose: 100 mls/hr Documented By: CHAD Insulin Glargine (Insulin Glargine,Hum.Rec.Anlog 100 Unit/Ml 10 Ml Vial) 30 unit SUBCUT BEDTIME [facility] Last Admin: 04/18/25 21:18 Dose: 30 unit Documented By: CHAD Insulin Human Lispro (Insulin Lispro 100 Unit/Ml 3 Ml Vial) 0 unit SUBCUT QIDACHS [facility]; Protocol Last Admin: 04/18/25 21:19 Dose: 4 unit Documented By: CHAD Ketorolac Tromethamine (Ketorolac Tromethamine 0.5% Op 5 Ml Drops) 1 drop EYE-RIGHT TID [facility] Last Admin: 04/18/25 23:51 Dose: Not Given Documented By: CHAD Non-Admin Reason: Patient Refused Latanoprost (Latanoprost 0.005 % Ophth Doris 2.5 Ml Drops) 1 drop EYE-BOTH BEDTIME [facility] Last Admin: 04/18/25 23:22 Dose: 1 drop Documented By: CHAD Levothyroxine Sodium (Levothyroxine Sodium 75 Mcg Tablet) 75 mcg PO DAILY@0600 [facility] Last Admin: 04/19/25 06:05 Dose: 75 mcg Documented By: CHAD Lidocaine (Lidocaine 4 % Patch Adh..Patch) 2 patch TRANSDERMA DAILY [facility]; Protocol Last Admin: 04/18/25 10:50 Dose: 2 patch Documented By: HAROON Magnesium Hydroxide (Milk Of Magnesia 30 Ml Oral.Susp) 30 ml PO BEDTIME PRN PRN Reason: Constipation Melatonin (Melatonin 3 Mg Tablet) 6 mg PO BEDTIME [facility] Last Admin: 04/18/25 21:18 Dose: 6 mg Documented By: CHAD Metoprolol Succinate (Metoprolol Succinate Er 50 Mg Tab.Er.24h) 50 mg PO DAILY [facility]; Protocol Last Admin: 04/18/25 12:03 Dose: Not Given Documented By: HAROON Non-Admin Reason: Physician Held Med Modafinil (Modafinil 100 Mg Tablet) 100 mg PO BID [facility] Last Admin: 04/18/25 21:18 Dose: 100 mg Documented By: CHAD Montelukast Sodium (Montelukast Sodium 10 Mg Tablet) 10 mg PO DAILY [facility] Last Admin: 04/18/25 10:53 Dose: 10 mg Documented By: HAROON Morphine Sulfate (Morphine Sulfate 4 Mg/Ml Cartridge) 0.5 mg IVPUSH Q6H PRN; Protocol PRN Reason: Pain, Moderate(Pain Scale 4-6) Last Admin: 04/19/25 03:17 Dose: 0.5 mg Documented By: CHAD Multivitamins/Vitamin C (Multivitamin Tablet) 1 tab PO DAILY [facility] Last Admin: 04/18/25 10:53 Dose: 1 tab Documented By: HAROON Nystatin (Nystatin Powder 15 Gm Bottle) 1 appl TOPICAL BID [facility]; Protocol Last Admin: 04/18/25 23:21 Dose: Not Given Documented By: CHAD Non-Admin Reason: Med Not Available Omeprazole (Omeprazole 20 Mg Capsule.Dr) 20 mg PO DAILY@0630 [facility] Last Admin: 04/19/25 06:05 Dose: Not Given Documented By: CHAD Non-Admin Reason: Patient Refused Ondansetron HCl (Ondansetron Hcl 4 Mg/2 Ml Vial) 4 mg IVPUSH Q8H PRN PRN Reason: Nausea and Vomiting Prednisolone Acetate (Prednisolone Acetate 1 % Oph Susp 5 Ml Drpbtl) 1 drop EYE-RIGHT TID [facility] Last Admin: 04/18/25 23:51 Dose: Not Given Documented By: CHAD Non-Admin Reason: Patient Refused Promethazine HCl (Promethazine Hcl 25 Mg Tablet) 25 mg PO Q6H PRN PRN Reason: Nausea Last Admin: 04/18/25 18:24 Dose: 25 mg Documented By: CHERYL Sildenafil Citrate (Sildenafil Citrate 20 Mg Tablet) 20 mg PO TID [facility] On Hold: 04/18/25 17:39 Last Admin: 04/18/25 17:58 Dose: Not Given Documented By: CHERYL Non-Admin Reason: hold per Sodium Biphosphate/Sodium Phosphate (Sodium Phosphate,[place]-Dibasic 133 Ml Enema) 118 ml MD BEDTIME PRN PRN Reason: Constipation Sodium Chloride (0.9 % Sodium Chloride Flush 3 Ml Syringe) 3 ml IVFLUSH QSHIFT [facility] Last Admin: 04/19/25 00:06 Dose: 3 ml Documented By: CHAD Spironolactone (Spironolactone 25 Mg Tablet) 25 mg PO DAILY [facility]; Protocol On Hold: 04/18/25 17:29 Last Admin: 04/18/25 09:13 Dose: Not Given Documented By: HAROON Non-Admin Reason: Physician Held Med Thiamine HCl (Thiamine Hcl 100 Mg Tablet) 100 mg PO DAILY [facility] Last Admin: 04/18/25 10:53 Dose: 100 mg Documented By: HAROON Torsemide (Torsemide 20 Mg Tablet) 40 mg PO DAILY [facility]; Protocol On Hold: 04/18/25 17:29 Last Admin: 04/18/25 09:13 Dose: Not Given Documented By: HAROON Non-Admin Reason: Physician Held Med Tramadol HCl (Tramadol Hcl 50 Mg Tablet) 50 mg PO Q6H PRN PRN Reason: Pain, Moderate(Pain Scale 4-6) Trazodone HCl (Trazodone Hcl 50 Mg Tablet) 50 mg PO Q6H PRN PRN Reason: Insomnia Labs 04/19/25 05:18 04/19/25 05:18 Labs: Laboratory Results - last 24 hr 04/18/25 04/18/25 04/18/25 12:37 18:10 20:52 MCV MCH MCHC RDW Plt Count MPV Immature Gran % (Auto) Neut % (Auto) Lymph % (Auto) [place] % (Auto) Eos % (Auto) Baso % (Auto) Lymph # (Auto) [place] # (Auto) Eos # (Auto) Baso # (Auto) Abs Immat Gran (auto) Absolute Neuts (auto) Absolute Nucleated RBC Nucleated RBC % (auto) Anion Gap Estim Creat Clear Calc Estimated GFR POC Glucose 167 H 201 H Random Glucose Calcium Troponin I High Sens 6.4 04/19/25 04/19/25 05:18 07:04 MCV 90.3 MCH 29.1 MCHC 32.2 RDW 16.1 H Plt Count 336 MPV 9.2 L Immature Gran % (Auto) 2.0 H Neut % (Auto) 79.4 H Lymph % (Auto) 9.3 L [place] % (Auto) 7.6 Eos % (Auto) 1.1 Baso % (Auto) 0.6 Lymph # (Auto) 1.1 L [place] # (Auto) 0.9 Eos # (Auto) 0.1 Baso # (Auto) 0.1 Abs Immat Gran (auto) 0.25 H Absolute Neuts (auto) 9.8 H Absolute Nucleated RBC 0.000 Nucleated RBC % (auto) 0.0 Anion Gap 13 Estim Creat Clear Calc 41.4 Estimated GFR 47 POC Glucose 217 H Random Glucose 153 H Calcium 8.6 Troponin I High Sens Microbiology Microbiology Results: Microbiology 04/18/25 04:28 Blood Culture - Preliminary Blood - Venous No growth after 24 hours. 04/18/25 04:28 Blood Culture - Preliminary Blood - Venous No growth after 24 hours. 04/17/25 21:32 Urine Culture - Preliminary Urine clean catch - Clean Catch Midstream Culture in progress. Assessment and Plan (1) Acute UTI: Status: Acute Plan Patient is a 65-year-old female with a past medical history significant for MS, CAD, PE on Eliquis, CVA, type 2 diabetes and chronic pain disorder with a recent admission at [facility] for 1 month long for urosepsis, discharged 3 days ago, who presented from her rehab facility due to chest pain on 04/16. Patient was being monitored in ED arbs, found to have AFib with RVR, leukocytosis and UA positive again. Patient is being monitored hemodynamic status and continued on IV antibiotics-linezolid based on prior cultures. 04/19/25: Had a very prolonged 3 rounds of discussion with the patient and the family members son Olvin who is the healthcare proxy over the phone-witnessed by my colleagues hospitalist and at the bedside by MARE Cortez Patient does have male multiple medical comorbidities and has been having a very prolonged complicated multiple hospitalizations the past few months. I have spoken to the son in the morning-we requested records from [facility], upon review of records from [facility], it appears that the patient has had a very prolonged complicated prolonged hospitalization requiring ICU level of care, with quick return of less than 1 day to the ED at our hospital for chest pain which revealed AFib with RVR, persistent leukocytosis-yet to complete linezolid for E faecalis UTI. Initially I was not aware of the patient's son stating he wanted to speak to me stat and the need for understanding her prognostication, however upon review of discharge packet from [facility] which I received after 17:00, I spoke to the patient's son, in the presence of bedside MARE Cortez, and reviewed it while I was talking to the patient's son and explained to him that we would take it 1 day at a time. However at around 17:40, bedside MARE Cortez paged me that the patient went into AFib with RVR necessitating Lopressor and a soft blood pressure with concern of hypotension and decompensation. Hence I called the patient's son again in the presence of my chief hospitalist Dr. Duron and had a prolonged 40 minute discussion regarding her multiple medical comorbidities. Patient's son's rick was also over the phone. They both are in agreement that they would not like her to suffer and would want to speak to her in person unchanged her code status after discussion with her to [employer] vs hospice. Patient's son was very overwhelmed and tearful and I did my best to reassure him that she is getting the best care possible. They are very thankful for the care that she is receiving here in this hospital and the fact that I was able to explain at length about her prognostication. Also explained that the patient's prognosis is based on the current snapshot, and she is hospice appropriate. Hence I have also requested the RN request the night RN to allow the patient's son and rick to come to the bedside at around 20:00 as they live in [place] I will also pass this along to the night attending coming on service. Sepsis secondary to UTI - linezolid per urine culture from [facility] - last date was supposed to be 04/19/25 - urine culture drawn here pending - blood cultures drawn here pending - blood pressure is soft, we will hold blood pressure meds spironolactone, torsemide, sildenafil, and -given UTI we will also hold empagliflozin Chest pain- repeat 03/18 - atypical - non-cardiogenic - EKG nonischemic, troponins flat - monitor on telemetry AFib with RVR, resolved - continue Eliquis, metoprolol and diltiazem PREM, likely secondary to dehydration, diuretics - monitor BMP CAD - aspirin Type 2 diabetes - diabetic diet - sliding scale insulin - Lantus - Hold Jardiance - given UTI - despite risks vs benefits Hypothyroid - levothyroxine DNR/DNI VTE prophylaxis: Eliquis DISPOSITION: This patient has a profoundly complex and progressive medical history, including severe valvular heart disease (mitral stenosis, mitral and tricuspid regurgitation), advanced coronary artery disease, prior pulmonary embolism requiring ongoing anticoagulation, cerebrovascular accident, and type 2 diabetes mellitus. Her recent clinical course has been further complicated by episodes of supraventricular tachycardia (SVT) and subdural hematoma (SDH), in addition to acute kidney injury (PREM) and acute limb ischemia (ALI). These complications necessitated transfer to a tertiary care center, resulting in a prolonged, month-long hospitalization, followed by discharge to rehabilitation. Despite aggressive interventions, she continues to experience significant symptom burden, including chest pain, abdominal pain, nausea, and dyspnea, and has demonstrated ongoing functional decline. The cumulative impact of her advanced cardiac, vascular, neurologic, and nephrogenic metabolic comorbidities?along with recurrent hospitalizations, critical illness, and new complications such as SVT and SDH?reflects severe multi-organ dysfunction and frailty, with a poor overall prognosis and limited potential for meaningful recovery. Given the severity and progression of her underlying conditions, the high risk of further life-threatening complications, and the likelihood that additional invasive interventions would not improve her quality of life, a hospice and code status change ([employer]) is appropriate. This approach prioritizes symptom management, dignity, and quality of life, aligning care with realistic goals and the patient?s best interests. Pt's son is coming at around 20:00 today to have goals of care conversation with her in person. This note is constructed using voice recognition software. While every effort has been made to ensure accuracy, soap drier operator errors may have been included. Total time managing care of this patient today: 90 minutes. Quality Stroke Does the patient have a stroke diagnosis?: No VTE Prior VTE?: Yes VTE Risk Level:: Medical - moderate - high VTE Device Contraindication: Treatment Not Indicated VTE Drug Contraindication: N/A - Med Ordered
[2025-04-19] MEDS: Lidocaine 4 % Patch ADH..PATCH 2 PATCH TRANSDERMA (08:11)
[2025-04-19] MEDS: Amphetamine Mixed Salts 10 MG TABLET 30 MG PO (08:11)
[2025-04-19] MEDS: Brimonidine Tartrate 0.2% Oph 5 ML BOTTLE 1 DROP EYE-BOTH ×2 (08:16→20:28)
[2025-04-19] MEDS: Dorzolamide HCl 2 % Ophth Sol 10 ML DRPBTL 1 DROP EYE-BOTH ×2 (08:17→20:27)
[2025-04-19 11:23] LABS: Glucose, Whole Blood 148 mg/dL (60-115)
--- NOTE | 2025-04-19 13:34 | HO.WOUND ---
Wound Consult: Initial 65yr old?female admitted to [facility] on 04/16/25- See progress notes and H&P for detailed history.? Wound consult placed for coccyx wound POA.? Patient agreeable to assessment and photo documentation.? Patient and son report the patient had a DTI from prior facility and this is improving at the current moment. Gluteal Fold Coccyx Etiology: Stage 2 Pressure Injury - Previously noted for DTI per pt and family. ??Present on Admission Measurements: 0.3cm x 0.4cm x 0.1cm Wound Bed: pink moist wound bed Drainage / Odor: None Edges: ?attached Alida wound: ?scar tissue and hyperpigmentaiton noted No Induration, Fluctuance or Warmth noted Pain: denies Goals of Treatment: ? Off Load Pressure and moist wound healing with Triad and Foam dressing Recommendations: 1. Turn and Reposition every 2 hours and as needed for patient comfort.? Use pillows or wedges to support off loading positions. 2. Off Load all bony prominences with use of pillows and heel boots if needed.? Apply Preventative foams where needed. ? 3. Monitor for incontinence and moisture control, use barrier creams when needed for prevention and treatment. 4. Provide adequate and supplemental nutrition.? 5. Order low air loss mattress. 6. When applicable maintain blood glucose levels per Providers order. Coccyx - Off Load Pressure with Q2 hr turns and use of pillows - Cleanse with PH balance spray or wipes, pat dry. ?Apply thin layer of Triad to wound bed. Do not remove all of paste between applications as this may cause further skin damage.? Cover with foam dressing to aid in off loading and protection from friction. Change every 3 days and PRN. Re-consult wound care Nurse for wound deterioration or wound changes.
--- NOTE | 2025-04-19 14:50 | MHC.CM.PN ---
CM met with pt. to discuss DCP, she said she wants to go home with [facility], when discussing her 2 days at [facility], she said no one helped her to the bathroom, so she sat in urine and feces. CM encouraged pt. to accept STR since she cannot get up to go to the bathroom without assistance, prior to going home. She does not want [facility] or [facility]. Refs out.
[2025-04-19 16:54] LABS: Glucose, Whole Blood 102 mg/dL (60-115)
--- NOTE | 2025-04-19 17:15 | ECG_ITS ---
Test Reason : ? afib Blood Pressure : */* mmHG Vent. Rate : 124 BPM Atrial Rate : * BPM P-R Int : * ms QRS Dur : 88 ms QT Int : 352 ms P-R-T Axes : * 13 -22 degrees QTcB Int : 505 ms Atrial fibrillation with rapid ventricular response with premature ventricular or aberrantly conducted complexes Nonspecific ST and T wave abnormality Abnormal ECG When compared with ECG of 18-Apr-2025 18:24, Atrial fibrillation has replaced Sinus rhythm ST now depressed in Anterior leads Referred By: Heather Cesar Electronically Signed By: MARGARITA ALATORRE MD
[2025-04-19 19:00] LABS: CDiff Gene PCR NEGATIVE (Negative)
[2025-04-19 19:56] LABS: Magnesium 1.6 mg/dL (1.6-2.6)
--- NOTE | 2025-04-19 20:55 | PM.EVENT ---
Event Note Date of Service: 04/19/25 Event Note: ACP note 04/19/2025 at 8:55 pm I had the chance to speak to the patient and her HCP (son) at the bedside in 2 separate occasions. I spent time reviewing her chart as well from [facility]. The patient had prolonged course of hospital stay complicated with heart , respiratory , liver and renal failures that she recovered from. Echo showed multiple valves problems with dilated RV and signs of pulmonary hypertension. At discharge her medications were changed with Cardizem and MEtoprolol added to the list along with Eliquis (no reported Afib though: for hx of PE). The patient mentioned that (she doesnt want to live like vegetable; she mentioned her mother going through hospice and being vegetable for sometime before passing.). The son was anxious about that scenario as well and kept asking if any quicker process can be offered rather than keep increasing her pain and other symptomatic medications for comfort. I explained to him that euthanasia is not an option in [place] and he understood. We finally agreed to discuss her chest pain, abnormal Echo and Afib RvR with cardiology for their insight and will get hospice team consult as well to discuss her options going forward. For now will increase the Morphine dose and monitor her chest pain. total time 40 minutes. Time Spent With Patient Time: Total time managing care of this patient today ____ minutes.
[2025-04-19 21:04] LABS: Glucose, Whole Blood 164 mg/dL (60-115)
[2025-04-19] MEDS: Latanoprost 0.005 % Ophth Sol 2.5 ML DROPS 1 DROP EYE-BOTH (21:13)
[2025-04-19] MEDS: Insulin Glargine,Hum.rec.anlog 100 UNIT/ML 10 ML VIAL 30 UNIT SUBCUT (21:52)
[2025-04-20] VITALS (7 sets, daily range): BP systolic 101–127; BP diastolic 49–65; PULSE 50–90; RESP 16–20; TEMP 36.3–37.1; O2SAT 95–99
[2025-04-20 06:59] LABS: MANUAL DIFF FLAG NO
[2025-04-20] MEDS: Glucose Gel 15 GM GEL..GRAM. PO (06:59)
[2025-04-20 07:04] LABS: Glucose, Whole Blood 58 mg/dL (60-115)
[2025-04-20 07:05] LABS: Hematocrit 23.4 % (37.0-47.0); Hemoglobin 7.3 g/dl (12.0-16.0); Imm Gran Abs Auto 0.30 X10*3/uL (0.00-0.03); Imm Gran Pct Auto 2.6 % (0.0-0.4); Lymphocytes Absolute Auto 1.4 X10*3/uL (1.2-4.9); Mean Corpuscular HGB Conc 31.2 g/dl (31.0-35.0); Mean Corpuscular Hemoglobin 28.2 pg (27.0-33.0); Mean Corpuscular Volume 90.3 fL (80.0-98.0); NRBC Abs Auto 0.000 X10*3/uL (0.0-0.012); NRBC Pct Auto 0.0 /100WBC (0.0-0.2); Platelet Count 328 X10*3/uL (160-400); Red Blood Count 2.59 X10*6/uL (4.20-5.50); White Blood Count 11.4 X10*3/uL (4.8-10.8)
[2025-04-20 07:11] LABS: Glucose, Whole Blood 67 mg/dL (60-115)
--- NOTE | 2025-04-20 07:18 | P.PNIM_ITS ---
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 ordered Review of Systems Review of Systems: Yes all other systems are reviewed and are negative Physical Exam 2 Exam: Exam: General: AOx3, very sick frail looking appears to be mildly uncomfortable, states she is aware that she is dying She states she is sinking into the bed, and that the bed is and golfing her anything her-I explained jokingly that it is unlikely. Resp: Rhonchi and rales bilateral, mild wheezing CVS: tachycardia GI: [place], diffusely tender ,no guarding no rigidity Neuro: Motor grossly intact bilaterally Vital Signs: Vital Signs: Last Vital Signs Temp 97.3 F 04/20/25 07:16 Pulse 90 04/20/25 07:16 Resp 20 04/20/25 07:16 BP 123/65 04/20/25 07:16 Pulse Ox 99 04/20/25 07:16 O2 Del Method Room Air 04/20/25 07:16 BMI result Body Mass Index 25.5 Objective Data Active Medications Acetaminophen (Acetaminophen 325 Mg Tablet) 975 mg PO Q6H PRN PRN Reason: Pain, Mild 1-3,fever,headache Albuterol Sulfate (Albuterol Sulfate (0.083%) 2.5 Mg/3 Ml Vial.Neb) 2.5 mg INHALE Q6H PRN PRN Reason: Wheezing Amantadine HCl (Amantadine Hcl 100 Mg Capsule) 100 mg PO BID [facility] Last Admin: 04/19/25 20:27 Dose: 100 mg Documented By: CHAD Amphetamine/Dextroamphetamine (Amphetamine Mixed Salts 10 Mg Tablet) 30 mg PO DAILY [facility] Last Admin: 04/19/25 08:11 Dose: 30 mg Documented By: DEVI Apixaban (Apixaban 5 Mg Tablet) 5 mg PO BID [facility] Last Admin: 04/19/25 20:26 Dose: 5 mg Documented By: CHAD Aspirin (Aspirin 81 Mg Tab.Chew) 81 mg PO DAILY [facility] Last Admin: 04/19/25 08:11 Dose: 81 mg Documented By: DEVI Bisacodyl (Bisacodyl 10 Mg Supp.Rect) 10 mg [place] DAILY PRN On Hold: 04/18/25 17:30 PRN Reason: Constipation Brimonidine Tartrate (Brimonidine Tartrate 0.2% Oph 5 Ml Bottle) 1 drop EYE- BOTH BID [facility] Last Admin: 04/19/25 20:28 Dose: 1 drop Documented By: CHAD Calcium Carbonate (Calcium Carbonate 750 Mg Tab.Chew) 750 mg PO Q4H PRN PRN Reason: Heartburn Diazepam (Diazepam 5 Mg Tablet) 5 mg PO Q8H PRN PRN Reason: Anxiety Last Admin: 04/20/25 03:19 Dose: 5 mg Documented By: CHAD Digoxin (Digoxin 0.5 Mg/2 Ml Ampul) 0.125 mg IVPUSH Q6H [facility]; Protocol Stop: 04/20/25 08:31 Last Admin: 04/20/25 03:21 Dose: 0.125 mg Documented By: CHAD Diltiazem HCl (Diltiazem Hcl Cd 300 Mg Cap.Er.24h) 300 mg PO DAILY [facility]; Protocol Last Admin: 04/19/25 08:06 Dose: Not Given Documented By: DEVI Non-Admin Reason: Physician Held Med Dorzolamide HCl (Dorzolamide Hcl 2 % Ophth Doris 10 Ml Drpbtl) 1 drop EYE-BOTH BID [facility] Last Admin: 04/19/25 20:27 Dose: 1 drop Documented By: CHAD Empagliflozin (Empagliflozin 10 Mg Tablet) 10 mg PO DAILY [facility] On Hold: 04/18/25 17:41 Last Admin: 04/18/25 10:53 Dose: Not Given Documented By: HAROON Non-Admin Reason: Patient Refused Glucagon (Glucagon Hcl 1 Mg Vial) 1 mg SUBCUT Q20M PRN PRN Reason: FSBS< 60 & unable to swallow Glucose (Glucose Gel 15 Gm Gel..Gram.) 15 gm PO Q15M PRN PRN Reason: fsbs < 50 and able to swallow Linezolid (Zyvox/D5w) 600 mg in 300 mls @ 300 mls/hr IV Q12H [facility] Last Infusion: 04/19/25 23:10 Dose: Infused Documented By: CHAD Sodium Chloride (Ns) 1,000 mls @ 100 mls/hr IVCONT .Q10H [facility] Last Admin: 04/20/25 03:30 Dose: 100 mls/hr Documented By: CHAD Insulin Glargine (Insulin Glargine,Hum.Rec.Anlog 100 Unit/Ml 10 Ml Vial) 30 unit SUBCUT BEDTIME [facility] Last Admin: 04/19/25 21:52 Dose: 30 unit Documented By: CHAD Insulin Human Lispro (Insulin Lispro 100 Unit/Ml 3 Ml Vial) 0 unit SUBCUT QIDACHS [facility]; Protocol Last Admin: 04/19/25 21:52 Dose: Not Given Documented By: CHAD Non-Admin Reason: Patient Refused Ketorolac Tromethamine (Ketorolac Tromethamine 0.5% Op 5 Ml Drops) 1 drop EYE- RIGHT TID [facility] Last Admin: 04/19/25 20:28 Dose: Not Given Documented By: CHAD Non-Admin Reason: Patient Refused Latanoprost (Latanoprost 0.005 % Ophth Doris 2.5 Ml Drops) 1 drop EYE-BOTH BEDTIME [facility] Last Admin: 04/19/25 21:13 Dose: 1 drop Documented By: CHAD Levothyroxine Sodium (Levothyroxine Sodium 75 Mcg Tablet) 75 mcg PO DAILY@0600 [facility] Last Admin: 04/20/25 04:51 Dose: 75 mcg Documented By: CHAD Lidocaine (Lidocaine 4 % Patch Adh..Patch) 2 patch TRANSDERMA DAILY [facility]; Protocol Last Admin: 04/19/25 08:11 Dose: 2 patch Documented By: DEVI Magnesium Hydroxide (Milk Of Magnesia 30 Ml Oral.Susp) 30 ml PO BEDTIME PRN PRN Reason: Constipation Melatonin (Melatonin 3 Mg Tablet) 6 mg PO BEDTIME [facility] Last Admin: 04/19/25 20:26 Dose: 6 mg Documented By: CHAD Metoprolol Succinate (Metoprolol Succinate Er 50 Mg Tab.Er.24h) 50 mg PO DAILY [facility]; Protocol Last Admin: 04/19/25 08:06 Dose: Not Given Documented By: DEVI Non-Admin Reason: Physician Held Med Metoprolol Tartrate (Metoprolol Tartrate 5 Mg/5 Ml Vial) 5 mg IVPUSH Q6H PRN; Protocol PRN Reason: Heart Rate >100 Last Admin: 04/19/25 17:49 Dose: 5 mg Documented By: DEVI Modafinil (Modafinil 100 Mg Tablet) 100 mg PO BID [facility] Last Admin: 04/19/25 20:26 Dose: 100 mg Documented By: CHAD Montelukast Sodium (Montelukast Sodium 10 Mg Tablet) 10 mg PO DAILY [facility] Last Admin: 04/19/25 08:11 Dose: 10 mg Documented By: DEVI Morphine Sulfate (Morphine Sulfate 4 Mg/Ml Cartridge) 1 mg IVPUSH Q4H PRN; Protocol PRN Reason: Pain, Moderate(Pain Scale 4-6) Last Admin: 04/20/25 04:49 Dose: 1 mg Documented By: CHAD Multivitamins/Vitamin C (Multivitamin Tablet) 1 tab PO DAILY [facility] Last Admin: 04/19/25 08:11 Dose: 1 tab Documented By: DEVI Nystatin (Nystatin Powder 15 Gm Bottle) 1 appl TOPICAL BID [facility]; Protocol Last Admin: 04/19/25 20:27 Dose: 1 appl Documented By: CHAD Omeprazole (Omeprazole 20 Mg Capsule.Dr) 20 mg PO DAILY@0630 [facility] Last Admin: 04/20/25 06:03 Dose: Not Given Documented By: CHAD Non-Admin Reason: Patient Refused Ondansetron HCl (Ondansetron Hcl 4 Mg/2 Ml Vial) 4 mg IVPUSH Q8H PRN PRN Reason: Nausea and Vomiting Prednisolone Acetate (Prednisolone Acetate 1 % Oph Susp 5 Ml Drpbtl) 1 drop EYE-RIGHT TID [facility] Last Admin: 04/19/25 20:28 Dose: Not Given Documented By: CHAD Non-Admin Reason: Patient Refused Promethazine HCl (Promethazine Hcl 25 Mg Tablet) 25 mg PO Q6H PRN PRN Reason: Nausea Last Admin: 04/20/25 03:19 Dose: 25 mg Documented By: CHAD Sildenafil Citrate (Sildenafil Citrate 20 Mg Tablet) 20 mg PO TID [facility] Last Admin: 04/19/25 21:51 Dose: 20 mg Documented By: CHAD Sodium Biphosphate/Sodium Phosphate (Sodium Phosphate,[place]-Dibasic 133 Ml Enema) 118 ml [place] BEDTIME PRN PRN Reason: Constipation Sodium Chloride (0.9 % Sodium Chloride Flush 3 Ml Syringe) 3 ml IVFLUSH QSHIFT ROBERT Last Admin: 04/19/25 23:09 Dose: Not Given Documented By: CHAD Non-Admin Reason: IV Running Spironolactone (Spironolactone 25 Mg Tablet) 25 mg PO DAILY ROBERT; Protocol On Hold: 04/18/25 17:29 Last Admin: 04/18/25 09:13 Dose: Not Given Documented By: HAROON Non-Admin Reason: Physician Held Med Thiamine HCl (Thiamine Hcl 100 Mg Tablet) 100 mg PO DAILY ROBERT Last Admin: 04/19/25 08:11 Dose: 100 mg Documented By: DEVI Torsemide (Torsemide 20 Mg Tablet) 40 mg PO DAILY ROBERT; Protocol On Hold: 04/18/25 17:29 Last Admin: 04/18/25 09:13 Dose: Not Given Documented By: HAROON Non-Admin Reason: Physician Held Med Tramadol HCl (Tramadol Hcl 50 Mg Tablet) 50 mg PO Q6H PRN PRN Reason: Pain, Moderate(Pain Scale 4-6) Trazodone HCl (Trazodone Hcl 50 Mg Tablet) 50 mg PO Q6H PRN PRN Reason: Insomnia Labs 04/20/25 06:42 04/20/25 06:42 Labs: Laboratory Results - last 24 hr 04/19/25 04/19/25 04/19/25 05:18 11:19 16:50 MCV MCH MCHC RDW Plt Count MPV Immature Gran % (Auto) Neut % (Auto) Lymph % (Auto) [place] % (Auto) Eos % (Auto) Baso % (Auto) Lymph # (Auto) [place] # (Auto) Eos # (Auto) Baso # (Auto) Abs Immat Gran (auto) Absolute Neuts (auto) Absolute Nucleated RBC Nucleated RBC % (auto) POC Glucose 148 H 102 Magnesium 1.6 C. difficile Tox B Gene 04/19/25 04/19/25 04/20/25 18:00 20:57 06:42 MCV 90.3 MCH 28.2 MCHC 31.2 RDW 16.2 H Plt Count 328 MPV 8.7 L Immature Gran % (Auto) 2.6 H Neut % (Auto) 76.1 H Lymph % (Auto) 12.2 L [place] % (Auto) 7.4 Eos % (Auto) 1.1 Baso % (Auto) 0.6 Lymph # (Auto) 1.4 [place] # (Auto) 0.8 Eos # (Auto) 0.1 Baso # (Auto) 0.1 Abs Immat Gran (auto) 0.30 H Absolute Neuts (auto) 8.6 H Absolute Nucleated RBC 0.000 Nucleated RBC % (auto) 0.0 POC Glucose 164 H Magnesium C. difficile Tox B Gene NEGATIVE 04/20/25 04/20/25 06:50 07:07 MCV MCH MCHC RDW Plt Count MPV Immature Gran % (Auto) Neut % (Auto) Lymph % (Auto) [place] % (Auto) Eos % (Auto) Baso % (Auto) Lymph # (Auto) [place] # (Auto) Eos # (Auto) Baso # (Auto) Abs Immat Gran (auto) Absolute Neuts (auto) Absolute Nucleated RBC Nucleated RBC % (auto) POC Glucose 58 L* 67 Magnesium C. difficile Tox B Gene Microbiology Microbiology Results: Microbiology 04/18/25 04:28 Blood Culture - Preliminary Blood - Venous No growth after 48 hours. 04/18/25 04:28 Blood Culture - Preliminary Blood - Venous No growth after 48 hours. 04/17/25 21:32 Urine Culture - Final Urine clean catch - Clean Catch Midstream Assessment and Plan (1) Tachy-dylon syndrome: Status: Acute Assessment and Plan: Patient is a 65-year-old female with a past medical history significant for MS, CAD, PE on Eliquis, CVA, type 2 diabetes and chronic pain disorder with a recent admission at [facility] for 1 month long for urosepsis, discharged 3 days ago, who presented from her rehab facility due to chest pain on 04/16. Patient was being monitored in ED arbs, found to have AFib with RVR, leukocytosis and UA positive again. Patient developed tachy-dylon syndrome the morning of 04/20/2025 and is going to get a pacemaker on 04/21/2025. Tachy-dylon syndrome Sinus pauses Patient to get a pacemaker on 04/21/2025 Per cardiology note: Tachy-dylno syndrome with paroxysmal atrial fibrillation with patient with post conversion significant pause with multiple pauses after that. Could be related to medication effect with digoxin. She is on couple of rate controlling medication for atrial fibrillation as outpatient which has not been able to be used because of prior history of orthostatic hypotension this admission having softer blood pressure. She then had rapid atrial fibrillation overnight for which she got digoxin. However I think she has underlying sinoatrial gianni dysfunction and for future control of her heart rate will require a pacemaker support. Discussed with her about it. Also discussed with the hospitalist team and the elementary assistant teacher to pursue dual-chamber pacemaker placement. Given that she has normal rhythm, she will need an atrial leads. She does not require AV gianni ablation. She most likely will be controlled with antiarrhythmic drug therapy. Her Eliquis has been held. Pacemaker will be done most likely tomorrow morning so we can figure but keep her NPO past midnight. Hold all rate lowering medications for now. Her chest pain syndrome appears to be atypical and possibly musculoskeletal related to her multiple sclerosis although troponins should be cycled x2. Will need an echocardiogram later today. Plan was discussed with her in details including the need for pacemaker, procedural details and included risks and benefits. She has no overt signs of bacteremia at this point in time. Plan: Patient to remain NPO from midnight Pacer pads to be placed on the patient Atropine p.r.n. Confirmed with the patient that she does not want to be resuscitated aggressively and would like to continue to be DNR DNI Cardiology following Patient continues to complain of substernal elephant like pressured chest pain l ikely from costochondritis Repeat EKG and troponin flat without any overt signs of ACS, no hemodynamic instability, no lightheadedness no syncope Pain control with Tylenol and morphine as needed with good effect Continue to monitor on telemetry AFib with RVR, resolved CAD History of SVT in prior hospitalization at [facility] continue Eliquis, metoprolol and diltiazem - aspirin Sepsis secondary to UTI based on prior records it appears that she had Enterococcus only sensitive to linezolid 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 Continuing to monitor neurological status. PREM, likely secondary to dehydration, diuretics - monitor BMP Type 2 diabetes - diabetic diet - sliding scale insulin - Lantus - Hold Jardiance - given UTI - despite risks vs benefits Hypothyroid - levothyroxine DNR/DNI VTE prophylaxis: Eliquis Before escalating care, reach out to the son. Patient has guarded prognosis. Given the guarded prognosis, hemodynamic collapse, and need for pacemaker, patient needs to be hospitalized for the next few days as prognosis is guarded. Patient also continues to need IV antibiotics for UTI. Quality Stroke Does the patient have a stroke diagnosis?: No VTE Prior VTE?: Yes VTE Risk Level:: Medical - moderate - high VTE Device Contraindication: Treatment Not Indicated VTE Drug Contraindication: N/A - Med Ordered
[2025-04-20 07:20] LABS: Anion Gap 10 (12-20); Blood Urea Nitrogen 20 mg/dL (9-16); Calcium 8.3 mg/dL (8.4-10.2); Carbon Dioxide 20 mmol/L (22-29); Chloride 112 mmol/L (96-108); Creatinine Clr Calc Pharmacy 49.6; Estimated Glomerular Filt Rate 58; Potassium 3.3 mmol/L (3.3-5.1); Sodium 139 mmol/L (135-145)
[2025-04-20 07:36] LABS: Glucose, Whole Blood 95 mg/dL (60-115)
--- NOTE | 2025-04-20 08:33 | ECG_ITS ---
Test Reason : bradycardia Blood Pressure : */* mmHG Vent. Rate : 58 BPM Atrial Rate : 58 BPM P-R Int : 92 ms QRS Dur : 92 ms QT Int : 442 ms P-R-T Axes : * 25 -30 degrees QTcB Int : 433 ms Sinus bradycardia with short SC Low voltage QRS Incomplete right bundle branch block Cannot rule out Anterior infarct (cited on or before 20-Apr-2025) Abnormal ECG When compared with ECG of 20-Apr-2025 08:31, Premature supraventricular complexes are no longer Present Referred By: Jesse Guerrero Electronically Signed By: JESSE GUERRERO MD
--- NOTE | 2025-04-20 08:51 | ECG_ITS ---
Test Reason : heart rate Blood Pressure : */* mmHG Vent. Rate : 57 BPM Atrial Rate : 57 BPM P-R Int : 80 ms QRS Dur : 86 ms QT Int : 430 ms P-R-T Axes : * 24 -50 degrees QTcB Int : 418 ms Sinus bradycardia with short GA with Premature supraventricular complexes Low voltage QRS Cannot rule out Anterior infarct , age undetermined Abnormal ECG When compared with ECG of 19-Apr-2025 17:16, Sinus rhythm has replaced Atrial fibrillation Vent. rate has decreased by 67 bpm T wave inversion now evident in Anterior leads Referred By: Jesse Guerrero Electronically Signed By: JESSE GUERRERO MD
[2025-04-20] MEDS: Amphetamine Mixed Salts 10 MG TABLET 30 MG PO (09:01)
[2025-04-20] MEDS: Lidocaine 4 % Patch ADH..PATCH 2 PATCH TRANSDERMA (09:01)
[2025-04-20] MEDS: Magnesium Sulfate/H2O 2 GM/50 ML PIGGYBACK IV (09:06)
--- NOTE | 2025-04-20 09:50 | PM.CNCAR ---
History of Present Illness History of Present Illness Date of Service: 04/20/25 Requesting physician: Heather Cesar Consult reason: chest pain, atrial fibrillation and other (Tachy-dalia syndrome) Chief complaint: sepsis UTI Narrative: I was consulted to see Trish in cardiology consultation today for noted significant pause, post conversion from atrial fibrillation. Patient is 65 year female with complicated past medical history not completely available at this point time with prior history of multiple sclerosis with gradually progressive decline in his functional status with spasm disorder, CAD with stenting of the LAD in 2012 as per her for symptoms of exertional diaphoresis, no chest pain at that time, PE diagnose in 2018 with settled thrombus has been on oral anticoagulation since then. Was noted to atrial fibrillation as she says by her clinical analyst about 2 years ago. She does not clearly have any symptoms related to it. She follows with a transportation security screener in [place]. She is currently on rate lowering medication with Cardizem and metoprolol. She was recently admitted to [facility] with a very long hospitalization related to urosepsis. Details are not available. Patient was then discharged to local custodial facility and was brought to the emergency room at [place] with symptoms of chest pain. She has chronic pain syndrome related to her multiple sclerosis. While in the emergency room she was being observed because of the chest pain her troponins were negative EKGs not show any significant changes. However then she developed chest pain again with atrial fibrillation rapid ventricular response and was decided to be admitted with noted leukocytosis with possible UTI again in urosepsis. Blood pressures remained soft with a blood pressure in upper 90s to 110 range. It has led to withholding of her usual rate control medications. Last night she went into rapid atrial fibrillation again with no symptoms associated with it. She was then given digoxin on 03:00 in the morning. This morning she remained in slightly rapid heart rate and then converted with pause up to 4 seconds and then follow that she had pause up to 8 seconds. She had some junctional accelerated rhythm in between. Cardiology consult was sought because of her pauses. She has no prior history of syncope. She has no prior history of sinoatrial gianni dysfunction. Patient has received some fluid resuscitation since yesterday. While I was talking to her she said she was having elephant standing on her chest. We did repeat EKGs and did not show any acute changes. Troponin was drawn. Patient says this chest pain syndrome is new however from the chart it appears that she has had prior recurrent chest pain syndromes. Review of Systems Constitutional: Constitutional: Reports weakness Eyes: Eyes: Reports no additional eye complaints Cardiovascular: Cardiovascular: Reports chest pain at rest, Reports rapid heart rate, Denies leg edema, Denies lightheadedness, Denies Loss of Consciousness, Denies dyspnea and Denies dyspnea on exertion Respiratory: Respiratory: Reports no additional respiratory complaints, Denies dyspnea and Denies dyspnea on exertion Gastrointestinal: Gastrointestinal: Reports no additional gastrointestinal complaints Musculoskeletal: Musculoskeletal: Reports no additional musculoskeletal complaints Integumentary/Breasts: Skin/Breast: Reports system reviewed and no additional complaints, except as docu Neurologic: Reports system reviewed and no additional complaints, except as documented and Reports weakness Endocrine: Endocrine: Reports no additional endocrine complaints [facility] Past Medical History Medical History Heart valve regurgitation Gitelman syndrome Polycystic ovarian syndrome Myocardial infarction Sleep apnea Fibromyalgia COPD (chronic obstructive pulmonary disease) Mild asthma Orthostatic hypotension Raynaud's disease Atrial fibrillation Pulmonary embolism Coronary atherosclerosis HTN (hypertension) Neuropathy Multiple sclerosis Chronic pain syndrome PTSD (post-traumatic stress disorder) Opioid dependence Depression Hypercalcemia Elevated cholesterol Type 2 diabetes mellitus Thyroid nodule Hypothyroid Surgical History Surgical History Hx of reduction mammoplasty Hx of tubal ligation Hx of hernia repair History of rectal surgery History of colon resection S/P panniculectomy History of lobectomy of thyroid Hx of hysterectomy Hx of appendectomy Hx of dilation and curettage Hx of heart artery stent Social History Social History Household Members: Children and Other Household Members Other:: son Housing: Apartment Are you a primary health care manager to a significant other at home: No Do you presently have visiting nurse or other home services: No Patient Tobacco Use Status: Former Tobacco user Tobacco use type: Cigarette Smoked in Last 30 Days: No Use of substances other than those prescribed or required for medical reasons: No Currently Displaying Signs/Symptoms of Drug Intoxication Withdrawal: No Have you been hit, kicked, punched, or otherwise hurt by someone within the past year? If so, by whom?: No Do you feel safe in your current relationship?: No Is there a partner from a previous relationship who is making you feel unsafe now?: No Are you made to feel afraid or neglected: No Advance Directives: No Advance Directives Information Provided: No Do you have a plan to hurt others: No Plan Nutrition Risks: No Nutritional Risk Patient : No service: No Meds Allergies Allergy/AdvReac Type Severity Reaction Status Date / Time diphenhydramine (From Allergy Severe Anaphylaxis Verified 04/16/25 19:37 Benadryl) Penicillins Allergy Severe Anaphylaxis Verified 04/16/25 19:37 Sulfa (Sulfonamide Allergy Severe Anaphylaxis Verified 04/16/25 19:37 Antibiotics) Cephalosporins Allergy Intermediate shortness Verified 04/16/25 19:37 of breath (can take cephalexin) clarithromycin Allergy Intermediate Shortness Verified 04/16/25 19:37 of Breath gabapentin Allergy Intermediate Confusion Verified 04/16/25 19:37 hydrochlorothiazide (From Allergy Intermediate Shortness Verified 04/16/25 19:37 Hyzaar) of Breath levofloxacin (From Levaquin) Allergy Intermediate dizziness/h Verified 04/16/25 19:37 eadache/ulices sea losartan (From Cozaar) Allergy Intermediate Shortness Verified 04/16/25 19:37 of Breath metformin Allergy Intermediate strange Verified 04/16/25 19:37 feeling amoxicillin (From Augmentin) Allergy Unknown Unknown Verified 04/16/25 19:37 clavulanic acid (From Allergy Unknown Unknown Verified 04/16/25 19:37 Augmentin) duloxetine (From Cymbalta) Allergy Unknown Unknown Verified 04/16/25 19:37 fluoxetine Allergy Unknown Unknown Verified 04/16/25 19:37 NSAIDS (Non-Steroidal Allergy Unknown Unknown Verified 04/16/25 19:37 Anti-Inflamma pregabalin AdvReac Intermediate Dizziness Verified 04/16/25 19:37 doxycycline AdvReac Mild Gastrointestinal Verified 04/16/25 19:37 Upset Active Medications: Current Medications Acetaminophen (Acetaminophen 325 Mg Tablet) 975 mg PO Q6H PRN PRN Reason: Pain, Mild 1-3,fever,headache Albuterol Sulfate (Albuterol Sulfate (0.083%) 2.5 Mg/3 Ml Vial.Neb) 2.5 mg INHALE Q6H PRN PRN Reason: Wheezing Amantadine HCl (Amantadine Hcl 100 Mg Capsule) 100 mg PO BID [facility] Last Admin: 04/20/25 09:00 Dose: 100 mg Amphetamine/Dextroamphetamine (Amphetamine Mixed Salts 10 Mg Tablet) 30 mg PO DAILY [facility] Last Admin: 04/20/25 09:01 Dose: 30 mg Apixaban (Apixaban 5 Mg Tablet) 5 mg PO BID [facility] Last Admin: 04/20/25 08:53 Dose: Not Given Aspirin (Aspirin 81 Mg Tab.Chew) 81 mg PO DAILY [facility] Last Admin: 04/20/25 09:01 Dose: 81 mg Bisacodyl (Bisacodyl 10 Mg Supp.Rect) 10 mg NV DAILY PRN On Hold: 04/18/25 17:30 PRN Reason: Constipation Brimonidine Tartrate (Brimonidine Tartrate 0.2% Oph 5 Ml Bottle) 1 drop EYE-BOTH BID [facility] Last Admin: 04/19/25 20:28 Dose: 1 drop Calcium Carbonate (Calcium Carbonate 750 Mg Tab.Chew) 750 mg PO Q4H PRN PRN Reason: Heartburn Diazepam (Diazepam 5 Mg Tablet) 5 mg PO Q8H PRN PRN Reason: Anxiety Last Admin: 04/20/25 03:19 Dose: 5 mg Diltiazem HCl (Diltiazem Hcl Cd 300 Mg Cap.Er.24h) 300 mg PO DAILY [facility]; Protocol Last Admin: 04/20/25 08:46 Dose: Not Given Dorzolamide HCl (Dorzolamide Hcl 2 % Ophth Doris 10 Ml Drpbtl) 1 drop EYE-BOTH BID [facility] Last Admin: 04/19/25 20:27 Dose: 1 drop Empagliflozin (Empagliflozin 10 Mg Tablet) 10 mg PO DAILY [facility] On Hold: 04/18/25 17:41 Last Admin: 04/18/25 10:53 Dose: Not Given Glucagon (Glucagon Hcl 1 Mg Vial) 1 mg SUBCUT Q20M PRN PRN Reason: FSBS< 60 & unable to swallow Glucose (Glucose Gel 15 Gm Gel..Gram.) 15 gm PO Q15M PRN PRN Reason: fsbs < 50 and able to swallow Last Admin: 04/20/25 06:59 Dose: 15 gm Linezolid (Zyvox/D5w) 600 mg in 300 mls @ 300 mls/hr IV Q12H [facility] Last Infusion: 04/19/25 23:10 Dose: Infused Sodium Chloride (Ns) 1,000 mls @ 100 mls/hr IVCONT .Q10H [facility] Last Admin: 04/20/25 03:30 Dose: 100 mls/hr Magnesium Sulfate (Magnesium Sulfate/H2o) 2 gm in 50 mls @ 25 mls/hr IV ONCE ONE Stop: 04/20/25 10:48 Last Admin: 04/20/25 09:06 Dose: 25 mls/hr Insulin Glargine (Insulin Glargine,Hum.Rec.Anlog 100 Unit/Ml 10 Ml Vial) 10 unit SUBCUT BEDTIME [facility] Insulin Human Lispro (Insulin Lispro 100 Unit/Ml 3 Ml Vial) 0 unit SUBCUT QIDACHS [facility]; Protocol Last Admin: 04/20/25 08:34 Dose: Not Given Ketorolac Tromethamine (Ketorolac Tromethamine 0.5% Op 5 Ml Drops) 1 drop EYE-RIGHT TID [facility] Last Admin: 04/19/25 20:28 Dose: Not Given Latanoprost (Latanoprost 0.005 % Ophth Doris 2.5 Ml Drops) 1 drop EYE-BOTH BEDTIME [facility] Last Admin: 04/19/25 21:13 Dose: 1 drop Levothyroxine Sodium (Levothyroxine Sodium 75 Mcg Tablet) 75 mcg PO DAILY@0600 [facility] Last Admin: 04/20/25 04:51 Dose: 75 mcg Lidocaine (Lidocaine 4 % Patch Adh..Patch) 2 patch TRANSDERMA DAILY [facility]; Protocol Last Admin: 04/20/25 09:01 Dose: 2 patch Magnesium Hydroxide (Milk Of Magnesia 30 Ml Oral.Susp) 30 ml PO BEDTIME PRN PRN Reason: Constipation Melatonin (Melatonin 3 Mg Tablet) 6 mg PO BEDTIME [facility] Last Admin: 04/19/25 20:26 Dose: 6 mg Metoprolol Succinate (Metoprolol Succinate Er 50 Mg Tab.Er.24h) 50 mg PO DAILY [facility]; Protocol Last Admin: 04/20/25 08:47 Dose: Not Given Metoprolol Tartrate (Metoprolol Tartrate 5 Mg/5 Ml Vial) 5 mg IVPUSH Q6H PRN; Protocol PRN Reason: Heart Rate >100 Last Admin: 04/19/25 17:49 Dose: 5 mg Modafinil (Modafinil 100 Mg Tablet) 100 mg PO BID [facility] Last Admin: 04/20/25 09:00 Dose: 100 mg Montelukast Sodium (Montelukast Sodium 10 Mg Tablet) 10 mg PO DAILY [facility] Last Admin: 04/20/25 09:00 Dose: 10 mg Morphine Sulfate (Morphine Sulfate 4 Mg/Ml Cartridge) 1 mg IVPUSH Q4H PRN; Protocol PRN Reason: Pain, Moderate(Pain Scale 4-6) Last Admin: 04/20/25 04:49 Dose: 1 mg Multivitamins/Vitamin C (Multivitamin Tablet) 1 tab PO DAILY [facility] Last Admin: 04/20/25 09:00 Dose: 1 tab Nystatin (Nystatin Powder 15 Gm Bottle) 1 appl TOPICAL BID [facility]; Protocol Last Admin: 04/19/25 20:27 Dose: 1 appl Omeprazole (Omeprazole 20 Mg Capsule.Dr) 20 mg PO DAILY@0630 [facility] Last Admin: 04/20/25 06:03 Dose: Not Given Ondansetron HCl (Ondansetron Hcl 4 Mg/2 Ml Vial) 4 mg IVPUSH Q8H PRN PRN Reason: Nausea and Vomiting Prednisolone Acetate (Prednisolone Acetate 1 % Oph Susp 5 Ml Drpbtl) 1 drop EYE-RIGHT TID [facility] Last Admin: 04/19/25 20:28 Dose: Not Given Promethazine HCl (Promethazine Hcl 25 Mg Tablet) 25 mg PO Q6H PRN PRN Reason: Nausea Last Admin: 04/20/25 03:19 Dose: 25 mg Sildenafil Citrate (Sildenafil Citrate 20 Mg Tablet) 20 mg PO TID [facility] Last Admin: 04/19/25 21:51 Dose: 20 mg Sodium Biphosphate/Sodium Phosphate (Sodium Phosphate,Zapata-Dibasic 133 Ml Enema) 118 ml NV BEDTIME PRN PRN Reason: Constipation Sodium Chloride (0.9 % Sodium Chloride Flush 3 Ml Syringe) 3 ml IVFLUSH QSHIFT [facility] Last Admin: 04/20/25 08:55 Dose: Not Given Spironolactone (Spironolactone 25 Mg Tablet) 25 mg PO DAILY [facility]; Protocol On Hold: 04/18/25 17:29 Last Admin: 04/18/25 09:13 Dose: Not Given Thiamine HCl (Thiamine Hcl 100 Mg Tablet) 100 mg PO DAILY [facility] Last Admin: 04/20/25 09:00 Dose: 100 mg Torsemide (Torsemide 20 Mg Tablet) 40 mg PO DAILY [facility]; Protocol On Hold: 04/18/25 17:29 Last Admin: 04/18/25 09:13 Dose: Not Given Tramadol HCl (Tramadol Hcl 50 Mg Tablet) 50 mg PO Q6H PRN PRN Reason: Pain, Moderate(Pain Scale 4-6) Trazodone HCl (Trazodone Hcl 50 Mg Tablet) 50 mg PO Q6H PRN PRN Reason: Insomnia Home Medications ?Medication ?Instructions ?Recorded ?Confirmed ?Last Taken ?Type amantadine HCl 100 mg capsule 100 mg PO BID 12/13/22 04/17/25 Unknown History apixaban 5 mg tablet (Eliquis) 5 mg PO BID 12/13/22 04/17/25 Unknown History brimonidine 0.2 % eye drops 1 drp ophthalmic (eye) BID 12/13/22 04/17/25 Unknown History dorzolamide 2 % eye drops 1 drp ophthalmic (eye) BID 12/13/22 04/17/25 Unknown History modafinil 100 mg tablet 100 mg PO BID 12/13/22 04/17/25 Unknown History montelukast 10 mg tablet 10 mg PO DAILY 12/13/22 04/17/25 Unknown History morphine 15 mg immediate release 15 mg PO Q8H PRN Pain 12/13/22 04/17/25 12/18/22 History tablet promethazine 25 mg tablet 25 mg PO Q6H PRN Nausea 12/13/22 04/17/25 Unknown History sildenafil (pulm.hypertension) 20 20 mg PO TID 12/13/22 04/17/25 Unknown History mg tablet albuterol sulfate 2.5 mg/3 mL 2.5 mg inhalation Q6H PRN Wheezing 04/17/25 04/17/25 Unknown History (0.083 %) solution for nebulization aspirin 81 mg chewable tablet 81 mg PO DAILY 04/17/25 04/17/25 Unknown History bisacodyl 10 mg rectal suppository 10 mg NV DAILY PRN Constipation 04/17/25 04/17/25 Unknown History camphor-menthol 0.5 %-0.5 % lotion 1 appl topical BID PRN Itching 04/17/25 04/17/25 Unknown History dextroamphetamine-amphetamine 30 30 mg PO DAILY 04/17/25 04/17/25 Unknown History mg tablet (Adderall) dextrose 40 % oral gel (Glucose 15 g PO Q15M PRN fsbs < 50 and 04/17/25 04/17/25 Unknown History Gel) able to swallow diazepam 5 mg tablet 5 mg PO Q8H PRN Anxiety 04/17/25 04/17/25 Unknown History diclofenac sodium 1 % topical gel 2 g topical QID 04/17/25 04/17/25 Unknown History diltiazem HCl 300 mg capsule,24 300 mg PO DAILY 04/17/25 04/17/25 Unknown History hr,extended release dulaglutide 3 mg/0.5 mL 3 mg subcut TU@0900 04/17/25 04/17/25 Unknown History subcutaneous pen injector (TrulicBitWine) dupilumab 300 mg/2 mL subcutaneous 300 mg subcut Q2W 04/17/25 04/17/25 Unknown History syringe (Dupixent) empagliflozin 10 mg tablet 10 mg PO DAILY 04/17/25 04/17/25 Unknown History (Jardiance) glucagon 1 mg solution for 1 mg subcut Q20M PRN fsbs beloq 60 04/17/25 04/17/25 Unknown History injection and unable to swallow insulin glargine 100 unit/mL (3 30 unit subcut BEDTIME 04/17/25 04/17/25 Unknown History mL) subcutaneous pen (Lantus Solostar U-100 Insulin) insulin lispro 100 unit/mL 1 sliding scale dose subcut TIDAC 04/17/25 04/17/25 Unknown History subcutaneous solution (Humalog U-100 Insulin) ketorolac 0.5 % eye drops 1 drp ophthalmic-Right TID 04/17/25 04/17/25 Unknown History latanoprost 0.005 % eye drops 1 drp ophthalmic (eye) BEDTIME 04/17/25 04/17/25 Unknown History levothyroxine 75 mcg tablet 75 mcg PO DAILY@0600 04/17/25 04/17/25 Unknown History lidocaine 4 % topical patch 2 patch topical DAILY 04/17/25 04/17/25 Unknown History linezolid 600 mg tablet 600 mg PO BID 04/17/25 04/17/25 Unknown History magnesium hydroxide 400 mg/5 mL 30 ml PO BEDTIME PRN Constipation 04/17/25 04/17/25 Unknown History oral suspension (Milk of Magnesia) melatonin 5 mg tablet 5 mg PO BEDTIME 04/17/25 04/17/25 Unknown History metoprolol succinate 50 mg 50 mg PO DAILY 04/17/25 04/17/25 Unknown History tablet,extended release 24 hr multivitamin with minerals 1 tab PO DAILY 04/17/25 04/17/25 Unknown History nystatin 100,000 unit/gram topical 1 appl topical BID 04/17/25 04/17/25 Unknown History powder pantoprazole 20 mg tablet,delayed 20 mg PO DAILY@0630 04/17/25 04/17/25 Unknown History release prednisolone acetate 1 % eye 1 drp ophthalmic-Right TID 04/17/25 04/17/25 Unknown History drops,suspension sodium chloride 7 % for 1 inh inhalation BID 04/17/25 04/17/25 Unknown History nebulization sodium phosphates 19 gram-7 118 ml NV BEDTIME PRN Constipation 04/17/25 04/17/25 Unknown History gram/118 mL enema (Fleet Enema) spironolactone 25 mg tablet 25 mg PO DAILY 04/17/25 04/17/25 Unknown History thiamine HCl (vitamin B1) 100 mg 100 mg PO DAILY 04/17/25 04/17/25 Unknown History tablet torsemide 20 mg tablet 40 mg PO DAILY 04/17/25 04/17/25 Unknown History trazodone 50 mg tablet 50 mg PO Q6H PRN Insomnia 04/17/25 04/17/25 Unknown History Physical Exam Vital Signs: Vital Signs: Last Vital Signs Temp 97.3 F 04/20/25 07:16 Pulse 90 04/20/25 07:16 Resp 20 04/20/25 07:16 BP 123/65 04/20/25 07:16 Pulse Ox 99 04/20/25 07:16 O2 Del Method Room Air 04/20/25 07:16 BMI result Body Mass Index 25.5 Const: General: cooperative, comfortable, alert and awake Nutritional Appearance: overweight Orientation/consciousness: patient oriented x3 HEENT: Head: Yes normocephalic and Yes atraumatic Neck: Neck: Yes trachea midline, Yes supple and Yes no JVD Resp: Effort & Inspection: decreased respiratory effort Auscultation: clear to auscultation bilaterally and diminished lung sounds Cardio: Jugular venous distension: no JVD Rate: bradycardic Rhythm: regular rhythm Heart sounds: S1 normal heart sound present, S2 normal heart sound present, no click, no gallops and no murmurs GI: Auscultation: normal bowel sounds Skin: General skin exam: no rashes or lesions noted Neuro: General: patient oriented x3 and moves all extremities Objective Labs and Meds 04/20/25 06:42 04/20/25 06:42 Lab results: Laboratory Results - last 24 hr 04/19/25 04/19/25 04/19/25 05:18 11:19 16:50 WBC RBC Hgb Hct MCV MCH MCHC RDW Plt Count MPV Immature Gran % (Auto) Neut % (Auto) Lymph % (Auto) Zapata % (Auto) Eos % (Auto) Baso % (Auto) Lymph # (Auto) Zapata # (Auto) Eos # (Auto) Baso # (Auto) Abs Immat Gran (auto) Absolute Neuts (auto) Absolute Nucleated RBC Nucleated RBC % (auto) Sodium Potassium Chloride Carbon Dioxide Anion Gap BUN Creatinine Estim Creat Clear Calc Estimated GFR POC Glucose 148 H 102 Random Glucose Calcium Magnesium 1.6 C. difficile Tox B Gene 04/19/25 04/19/25 04/20/25 18:00 20:57 06:42 WBC 11.4 H RBC 2.59 L Hgb 7.3 L Hct 23.4 L MCV 90.3 MCH 28.2 MCHC 31.2 RDW 16.2 H Plt Count 328 MPV 8.7 L Immature Gran % (Auto) 2.6 H Neut % (Auto) 76.1 H Lymph % (Auto) 12.2 L Zapata % (Auto) 7.4 Eos % (Auto) 1.1 Baso % (Auto) 0.6 Lymph # (Auto) 1.4 Zapata # (Auto) 0.8 Eos # (Auto) 0.1 Baso # (Auto) 0.1 Abs Immat Gran (auto) 0.30 H Absolute Neuts (auto) 8.6 H Absolute Nucleated RBC 0.000 Nucleated RBC % (auto) 0.0 Sodium 139 Potassium 3.3 Chloride 112 H Carbon Dioxide 20 L Anion Gap 10 L BUN 20 H Creatinine 0.96 Estim Creat Clear Calc 49.6 Estimated GFR 58 POC Glucose 164 H Random Glucose 65 Calcium 8.3 L Magnesium C. difficile Tox B Gene NEGATIVE 04/20/25 04/20/25 04/20/25 06:50 07:07 07:32 WBC RBC Hgb Hct MCV MCH MCHC RDW Plt Count MPV Immature Gran % (Auto) Neut % (Auto) Lymph % (Auto) Zapata % (Auto) Eos % (Auto) Baso % (Auto) Lymph # (Auto) Zapata # (Auto) Eos # (Auto) Baso # (Auto) Abs Immat Gran (auto) Absolute Neuts (auto) Absolute Nucleated RBC Nucleated RBC % (auto) Sodium Potassium Chloride Carbon Dioxide Anion Gap BUN Creatinine Estim Creat Clear Calc Estimated GFR POC Glucose 58 L* 67 95 Random Glucose Calcium Magnesium C. difficile Tox B Gene Assessment and Plan (1) Tachy-dalia syndrome: Status: Acute Tachy-dalia syndrome with paroxysmal atrial fibrillation with patient with post conversion significant pause with multiple pauses after that. Could be related to medication effect with digoxin. She is on couple of rate controlling medication for atrial fibrillation as outpatient which has not been able to be used because of prior history of orthostatic hypotension this admission having softer blood pressure. She then had rapid atrial fibrillation overnight for which she got digoxin. However I think she has underlying sinoatrial gianni dysfunction and for future control of her heart rate will require a pacemaker support. Discussed with her about it. Also discussed with the hospitalist team and the eating disorder psychologist to pursue dual-chamber pacemaker placement. Given that she has normal rhythm, she will need an atrial leads. She does not require AV gianni ablation. She most likely will be controlled with antiarrhythmic drug therapy. Her Eliquis has been held. Pacemaker will be done most likely tomorrow morning so we can figure but keep her NPO past midnight. Hold all rate lowering medications for now. Her chest pain syndrome appears to be atypical and possibly musculoskeletal related to her multiple sclerosis although troponins should be cycled x2. Will need an echocardiogram later today. Plan was discussed with her in details including the need for pacemaker, procedural details and included risks and benefits. She has no overt signs of bacteremia at this point in time. Will follow with you Procedures Date of Service Date of Service: 04/20/25
[2025-04-20 11:01] LABS: Glucose, Whole Blood 138 mg/dL (60-115)
[2025-04-20] MEDS: Brimonidine Tartrate 0.2% Oph 5 ML BOTTLE 1 DROP EYE-BOTH (11:08)
[2025-04-20] MEDS: Dorzolamide HCl 2 % Ophth Sol 10 ML DRPBTL 1 DROP EYE-BOTH (11:10)
[2025-04-20 11:11] LABS: E. coli EAEC Not Detected (Not Detect.); E. coli EPEC Not Detected (Not Detect.); E. coli ETEC Not Detected (Not Detect.); E. coli STEC Not Detected (Not Detect.); Shigella sp./EIEC Not Detected (Not Detect.)
[2025-04-20] MEDS: Linezolid/D5W 600 MG/300 ML PIGGYBACK 300 MG IV ×2 (11:35→22:07)
[2025-04-20 11:43] LABS: Troponin-I High Sensitivity 6.4 ng/L (<3.5-17.0)
--- NOTE | 2025-04-20 12:00 | CA_ITS ---
Transthoracic Echocardiogram Patient (Last, First, Middle): Bella Shabazz, Gender: F Date of : 1960 Age: 65 Procedure Date: 04/20/2025 Procedure Type: Transthoracic Echocardiogram Location: [facility] [place] Height: 157.48 cm Weight: 63.05 kg BSA: 1.64 m2 Heart Rate: bpm BP: 123 / 65 mmHg Yarn Hauler: Referring MD: Jesse Guerrero MD Sketch Artist: Jesse Guerrero MD Symptoms: Tachy-dalia syndrome with atrial fibrillation Study Quality: Good ECG Rhythm: Sinus Conclusions: - 1. Normal LV EF of 55-60% 2. Severe biatrial enlargement 3. Moderate to severe mitral regurgitation 4. Severe tricuspid regurgitation 5. Upper limits of normal ascending aortic size 6. No gross pericardial effusion Findings Left Ventricle Normal left ventricular size, thickness, and systolic function. The visually estimated ejection fraction is between 55-60%. There is a flattened septum in diastole ( D shaped left ventricle) consistent with right ventricular volume overload. Diastolic function is indeterminate on the basis of available data. Right Ventricle Mildly increased right ventricular cavity size. There is normal right ventricular systolic function. Atria Severe biatrial enlargement. There is no evidence of interatrial shunt. Aortic Valve Normal aortic valve structure and function. There is no aortic valve stenosis. There is no aortic valve regurgitation. Mitral Valve There is mild anterior and posterior mitral leaflet thickening. There is moderate to severe mitral valve regurgitation. There is no mitral valve stenosis. Pulmonic Valve The pulmonic valve is likely normal. There is mild to moderate pulmonic valve regurgitation. Tricuspid Valve Normal tricuspid valve structure. There is severe tricuspid valve regurgitation. The right ventricular systolic pressure is normal. Great Vessels The pulmonary artery was not well visualized. There is no dilatation of the ascending aorta measuring 3.60 cm. Venous The inferior vena cava is moderately dilated and collapses less than 50% with inspiration. Pericardium/Pleural There is no evidence of pericardial effusion. Prior Study Comparison No prior study available for comparison. Measurements 2D Linear Measurements IVSd: 0.81 0.6-0.9/0.6-1.0 cm LVIDd: 4.67 3.9-5.3/4.2-5.9 cm LVIDd Index: 2.85 2.4-3.2/2.2-3.1 cm/m2 LVIDs: 3.12 2.0-3.6 cm LVPWd: 0.89 0.7-1.1 cm Ao Root: 3.40 2.1-3.5 cm LA Diam: 4.50 2.7-3.8/3.0-4.0 cm LAIDs Index: 2.74 1.5-2.3 cm/m2 LV Mass: 162.77 67-162/88-224 g LV Mass Index: 99.25 43-95/49-115 g/m2 LVOT Diam: 1.90 3.0+(-)1.3 cm 2D Systolic Function EF 4C: 55.20 >55% EF 2C: 58.60 >55% EF BiP: 56.60 >55% Mitral Valve MR Vol - PW Dopp: 47.70 MR VTI: 1.59 MR ERO: 30.00 MR Alias Rocael: 0.37 MR RAD: 0.80 Aortic Valve AoV Pk Rocael: 1.17 AoV Mn Rocael: 0.78 AoV VTI: 0.24 AoV Pk Grad: 5.00 Aov Mn Grad: 3.00 WINSOME Cont.VTI: 1.91 LVOT LVOT Pk Rocael: 0.80 LVOT Mn Rocael: 0.48 LVOT VTI: 0.16 LVOT Pk Grad: 3.00 LVOT Mn Grad: 1.00 LVOT Diam: 1.90 LVOT Area: 2.84 Tricuspid Valve TR Pk Rocael: 2.48 TR Pk Grad: 25.00 Great Vessels Aorta Ao Root-2D: 3.40 2.0-3.7 cm Ao Asc: 3.60 2.1-3.4 cm Pulmonary Valve PV Pk Rocael: 1.08 Peak PV Grad: 5.00 Updated in Other Vendor System with Status of Final Jesse Guerrero MD electronically signed on 04/20/2025 3:59:55 PM with status of Final
--- NOTE | 2025-04-20 13:46 | MHC.CM.PN ---
CM met with pt., she completed HCP, it has been added to chart, copies given to pt. CM discussed STR options with pt., she requested information on facilities, info from [facility] was provided.
--- NOTE | 2025-04-20 21:00 | ECG_ITS ---
Test Reason : chest pain Blood Pressure : */* mmHG Vent. Rate : 54 BPM Atrial Rate : * BPM P-R Int : * ms QRS Dur : 88 ms QT Int : 434 ms P-R-T Axes : * 20 10 degrees QTcB Int : 411 ms Junctional rhythm Low voltage QRS Nonspecific ST and T wave abnormality Abnormal ECG When compared with ECG of 20-Apr-2025 08:53, Junctional rhythm has replaced Sinus rhythm Referred By: Caleb Poe Electronically Signed By: MARGARITA ALATORRE MD
[2025-04-20 21:58] LABS: Troponin-I High Sensitivity 8.5 ng/L (<3.5-17.0)
[2025-04-20 22:12] LABS: Glucose, Whole Blood 88 mg/dL (60-115)
[2025-04-20 23:41] LABS: Troponin-I High Sensitivity 10.0 ng/L (<3.5-17.0)
[2025-04-21] VITALS (15 sets, daily range): BP systolic 101–132; BP diastolic 46–69; PULSE 58–69; RESP 16–18; TEMP 36.3–37; O2SAT 96–100
--- NOTE | 2025-04-21 | ECG_ITS ---
Test Reason : s/p pacemaker Blood Pressure : */* mmHG Vent. Rate : 55 BPM Atrial Rate : 55 BPM P-R Int : 134 ms QRS Dur : 106 ms QT Int : 436 ms P-R-T Axes : 6 21 -15 degrees QTcB Int : 417 ms Sinus bradycardia with sinus arrhythmia with occasional ventricular-paced complexes Low voltage QRS Incomplete right bundle branch block Cannot rule out Anterior infarct , age undetermined Abnormal ECG When compared with ECG of 21-Apr-2025 15:20, Electronic ventricular pacemaker has replaced Sinus rhythm Referred By: Brock Lal Electronically Signed By: MARGARITA ALATORRE MD
--- NOTE | 2025-04-21 07:15 | P.PNIM_ITS ---
Subjective Subjective Date of Service: 04/21/25 Interval History: Patient to get pacemaker today Patient had sinus pauses and junctional rhythm again last evening We appreciate Cardiology input in her care Review of Systems Review of Systems: Yes all other systems are reviewed and are negative Physical Exam 2 Exam: Exam: General: AOx3, very sick frail looking appears to be mildly uncomfortable, states she is aware that she is dying She states she is sinking into the bed, and that the bed is and golfing her anything her-I explained jokingly that it is unlikely. Resp: Rhonchi and rales bilateral, mild wheezing CVS: tachycardia GI: [place], diffusely tender ,no guarding no rigidity Neuro: Motor grossly intact bilaterally Vital Signs: Vital Signs: Last Vital Signs Temp 97.5 F 04/21/25 03:18 Pulse 67 04/21/25 03:18 Resp 18 04/21/25 03:18 BP 101/53 L 04/21/25 03:18 Pulse Ox 97 04/21/25 03:18 O2 Del Method Room Air 04/21/25 03:18 BMI result Body Mass Index 25.5 Objective Data Active Medications Acetaminophen (Acetaminophen 325 Mg Tablet) 975 mg PO Q6H PRN PRN Reason: Pain, Mild 1-3,fever,headache Albuterol Sulfate (Albuterol Sulfate (0.083%) 2.5 Mg/3 Ml Vial.Neb) 2.5 mg INHALE Q6H PRN PRN Reason: Wheezing Amantadine HCl (Amantadine Hcl 100 Mg Capsule) 100 mg PO BID [facility] Last Admin: 04/20/25 22:06 Dose: 100 mg Documented By: JAVIER Amphetamine/Dextroamphetamine (Amphetamine Mixed Salts 10 Mg Tablet) 30 mg PO DAILY [facility] Last Admin: 04/20/25 09:01 Dose: 30 mg Documented By: HARVEY Apixaban (Apixaban 5 Mg Tablet) 5 mg PO BID [facility] On Hold: 04/20/25 10:34 Last Admin: 04/20/25 08:53 Dose: Not Given Documented By: HARVEY Non-Admin Reason: Physician Held Med Aspirin (Aspirin 81 Mg Tab.Chew) 81 mg PO DAILY [facility] Last Admin: 04/20/25 09:01 Dose: 81 mg Documented By: HARVEY Atropine Sulfate (Atropine Sulfate 1 Mg/10 Ml Syringe) 1 mg IVPUSH ONCE PRN PRN Reason: bradicardia Bisacodyl (Bisacodyl 10 Mg Supp.Rect) 10 mg GA DAILY PRN On Hold: 04/18/25 17:30 PRN Reason: Constipation Brimonidine Tartrate (Brimonidine Tartrate 0.2% Oph 5 Ml Bottle) 1 drop EYE- BOTH BID ROBERT Last Admin: 04/20/25 22:08 Dose: Not Given Documented By: AJVIER Non-Admin Reason: Patient Refused Calcium Carbonate (Calcium Carbonate 750 Mg Tab.Chew) 750 mg PO Q4H PRN PRN Reason: Heartburn Diazepam (Diazepam 5 Mg Tablet) 5 mg PO Q8H PRN PRN Reason: Anxiety Last Admin: 04/20/25 18:24 Dose: 5 mg Documented By: HARVEY Diltiazem HCl (Diltiazem Hcl Cd 300 Mg Cap.Er.24h) 300 mg PO DAILY [facility]; Protocol On Hold: 04/20/25 19:08 Last Admin: 04/20/25 08:46 Dose: Not Given Documented By: HARVEY Non-Admin Reason: Physician Held Med Dorzolamide HCl (Dorzolamide Hcl 2 % Ophth Doris 10 Ml Drpbtl) 1 drop EYE-BOTH BID ROBERT Last Admin: 04/20/25 22:08 Dose: Not Given Documented By: JAVIER Non-Admin Reason: Patient Refused Empagliflozin (Empagliflozin 10 Mg Tablet) 10 mg PO DAILY [facility] On Hold: 04/18/25 17:41 Last Admin: 04/18/25 10:53 Dose: Not Given Documented By: HAROON Non-Admin Reason: Patient Refused Glucagon (Glucagon Hcl 1 Mg Vial) 1 mg SUBCUT Q20M PRN PRN Reason: FSBS< 60 & unable to swallow Glucose (Glucose Gel 15 Gm Gel..Gram.) 15 gm PO Q15M PRN PRN Reason: fsbs < 50 and able to swallow Last Admin: 04/20/25 06:59 Dose: 15 gm Documented By: CHAD Linezolid (Zyvox/D5w) 600 mg in 300 mls @ 300 mls/hr IV Q12H ROBERT Last Infusion: 04/20/25 23:10 Dose: Infused Documented By: CARIN Insulin Human Lispro (Insulin Lispro 100 Unit/Ml 3 Ml Vial) 0 unit SUBCUT QIDACHS [facility]; Protocol Last Admin: 04/20/25 22:08 Dose: Not Given Documented By: JAVIER Non-Admin Reason: No Insulin Coverage Ketorolac Tromethamine (Ketorolac Tromethamine 0.5% Op 5 Ml Drops) 1 drop EYE- RIGHT TID [facility] Last Admin: 04/20/25 22:08 Dose: Not Given Documented By: JAVIER Non-Admin Reason: Patient Refused Latanoprost (Latanoprost 0.005 % Ophth Doris 2.5 Ml Drops) 1 drop EYE-BOTH BEDTIME [facility] Last Admin: 04/20/25 22:08 Dose: Not Given Documented By: JAVIER Non-Admin Reason: Patient Refused Levothyroxine Sodium (Levothyroxine Sodium 75 Mcg Tablet) 75 mcg PO DAILY@0600 [facility] Last Admin: 04/21/25 06:25 Dose: Not Given Documented By: CARIN Non-Admin Reason: NPO Lidocaine (Lidocaine 4 % Patch Adh..Patch) 2 patch TRANSDERMA DAILY [facility]; Protocol Last Admin: 04/20/25 09:01 Dose: 2 patch Documented By: HARVEY Magnesium Hydroxide (Milk Of Magnesia 30 Ml Oral.Susp) 30 ml PO BEDTIME PRN PRN Reason: Constipation Melatonin (Melatonin 3 Mg Tablet) 6 mg PO BEDTIME [facility] Last Admin: 04/20/25 22:06 Dose: 6 mg Documented By: JAVIER Modafinil (Modafinil 100 Mg Tablet) 100 mg PO BID [facility] Last Admin: 04/20/25 22:06 Dose: 100 mg Documented By: JAVIER Montelukast Sodium (Montelukast Sodium 10 Mg Tablet) 10 mg PO DAILY [facility] Last Admin: 04/20/25 09:00 Dose: 10 mg Documented By: HARVEY Morphine Sulfate (Morphine Sulfate 4 Mg/Ml Cartridge) 1 mg IVPUSH Q4H PRN; Protocol PRN Reason: Pain, Moderate(Pain Scale 4-6) Last Admin: 04/21/25 02:34 Dose: 1 mg Documented By: CARIN Comments: Ok to administer for 10/10 pain per MD Morillo. Multivitamins/Vitamin C (Multivitamin Tablet) 1 tab PO DAILY [facility] Last Admin: 04/20/25 09:00 Dose: 1 tab Documented By: HARVEY Nystatin (Nystatin Powder 15 Gm Bottle) 1 appl TOPICAL BID [facility]; Protocol Last Admin: 04/20/25 22:06 Dose: 1 appl Documented By: JAVIER Omeprazole (Omeprazole 20 Mg Capsule.Dr) 20 mg PO DAILY@0630 [facility] Last Admin: 04/21/25 06:25 Dose: Not Given Documented By: CARIN Non-Admin Reason: NPO Ondansetron HCl (Ondansetron Hcl 4 Mg/2 Ml Vial) 4 mg IVPUSH Q8H PRN PRN Reason: Nausea and Vomiting Prednisolone Acetate (Prednisolone Acetate 1 % Oph Susp 5 Ml Drpbtl) 1 drop EYE-RIGHT TID [facility] Last Admin: 04/20/25 22:07 Dose: Not Given Documented By: JAVIER Non-Admin Reason: Patient Refused Promethazine HCl (Promethazine Hcl 25 Mg Tablet) 25 mg PO Q6H PRN PRN Reason: Nausea Last Admin: 04/20/25 22:06 Dose: 25 mg Documented By: JAVIER Sildenafil Citrate (Sildenafil Citrate 20 Mg Tablet) 20 mg PO TID [facility] Last Admin: 04/20/25 22:06 Dose: 20 mg Documented By: JAVIER Sodium Biphosphate/Sodium Phosphate (Sodium Phosphate,Hendry-Dibasic 133 Ml Enema) 118 ml GA BEDTIME PRN PRN Reason: Constipation Sodium Chloride (0.9 % Sodium Chloride Flush 3 Ml Syringe) 3 ml IVFLUSH QSHIFT [facility] Last Admin: 04/21/25 00:33 Dose: Not Given Documented By: CARIN Non-Admin Reason: IV Running Spironolactone (Spironolactone 25 Mg Tablet) 25 mg PO DAILY [facility]; Protocol On Hold: 04/18/25 17:29 Last Admin: 04/18/25 09:13 Dose: Not Given Documented By: HAROON Non-Admin Reason: Physician Held Med Thiamine HCl (Thiamine Hcl 100 Mg Tablet) 100 mg PO DAILY [facility] Last Admin: 04/20/25 09:00 Dose: 100 mg Documented By: HARVEY Torsemide (Torsemide 20 Mg Tablet) 40 mg PO DAILY [facility]; Protocol On Hold: 04/20/25 19:08 Last Admin: 04/18/25 09:13 Dose: Not Given Documented By: HAROON Non-Admin Reason: Physician Held Med Tramadol HCl (Tramadol Hcl 50 Mg Tablet) 50 mg PO Q6H PRN PRN Reason: Pain, Moderate(Pain Scale 4-6) Trazodone HCl (Trazodone Hcl 50 Mg Tablet) 50 mg PO Q6H PRN PRN Reason: Insomnia Labs 04/20/25 06:42 04/20/25 06:42 Labs: Laboratory Results - last 24 hr 04/19/25 04/20/25 04/20/25 18:00 06:42 07:32 Hold Purple Top Anion Gap 10 L Estim Creat Clear Calc 49.6 Estimated GFR 58 POC Glucose 95 Random Glucose 65 Calcium 8.3 L Lactate Dehydrogenase 224 H Troponin I High Sens TSH 3.55 Stl C. cayetanensis PCR Not Detected Stool Rotavirus A PCR Not Detected Stl Adenov F 40/41 PCR Not Detected Stool Astrovirus (PCR) Not Detected Stool Campylobacter PCR Not Detected Stool Cryptosporidium PCR Not Detected Stl Sh Tox Pr E STEC PCR Not Detected Stool E coli O157 PCR Not applicable Stl Enterotoxigenic E PCR Not Detected Stool EPEC (PCR) Not Detected Stool EAEC (PCR) Not Detected Stl E. histolytica PCR Not Detected Stool Giardia Lamblia PCR Not Detected Stl P. shigelloides PCR Not Detected Stool Salmonella PCR Not Detected Stool Sapovirus (PCR) Not Detected Stl Shigella/EIEC PCR Not Detected St Y.enterocolitica PCR Not Detected Stool Vibrio (PCR) Not Detected Stl Vibrio cholerae PCR Not Detected Stl Norovirus GI/GII PCR Not Detected 04/20/25 04/20/25 04/20/25 10:52 11:01 11:11 Hold Purple Top SEE NOTE Anion Gap Estim Creat Clear Calc Estimated GFR POC Glucose 138 H Random Glucose Calcium Lactate Dehydrogenase Troponin I High Sens 6.4 TSH Stl C. cayetanensis PCR Stool Rotavirus A PCR Stl Adenov F 40/41 PCR Stool Astrovirus (PCR) Stool Campylobacter PCR Stool Cryptosporidium PCR Stl Sh Tox Pr E STEC PCR Stool E coli O157 PCR Stl Enterotoxigenic E PCR Stool EPEC (PCR) Stool EAEC (PCR) Stl E. histolytica PCR Stool Giardia Lamblia PCR Stl P. shigelloides PCR Stool Salmonella PCR Stool Sapovirus (PCR) Stl Shigella/EIEC PCR St Y.enterocolitica PCR Stool Vibrio (PCR) Stl Vibrio cholerae PCR Stl Norovirus GI/GII PCR 04/20/25 04/20/25 04/20/25 21:23 22:07 23:16 Hold Purple Top Anion Gap Estim Creat Clear Calc Estimated GFR POC Glucose 88 Random Glucose Calcium Lactate Dehydrogenase Troponin I High Sens 8.5 10.0 TSH Stl C. cayetanensis PCR Stool Rotavirus A PCR Stl Adenov F 40/41 PCR Stool Astrovirus (PCR) Stool Campylobacter PCR Stool Cryptosporidium PCR Stl Sh Tox Pr E STEC PCR Stool E coli O157 PCR Stl Enterotoxigenic E PCR Stool EPEC (PCR) Stool EAEC (PCR) Stl E. histolytica PCR Stool Giardia Lamblia PCR Stl P. shigelloides PCR Stool Salmonella PCR Stool Sapovirus (PCR) Stl Shigella/EIEC PCR St Y.enterocolitica PCR Stool Vibrio (PCR) Stl Vibrio cholerae PCR Stl Norovirus GI/GII PCR Microbiology Microbiology Results: Microbiology 04/18/25 04:28 Blood Culture - Preliminary Blood - Venous No growth after 48 hours. 04/18/25 04:28 Blood Culture - Preliminary Blood - Venous No growth after 48 hours. Assessment and Plan (1) Tachy-dalia syndrome: Status: Acute Assessment and Plan: Patient is a 65-year-old female with a past medical history significant for MS, CAD, PE on Eliquis, CVA, type 2 diabetes and chronic pain disorder with a recent admission at [facility] for 1 month long for urosepsis, discharged 3 days ago, who presented from her rehab facility due to chest pain on 04/16. Patient was being monitored in ED arbs, found to have AFib with RVR, leukocytosis and UA positive again. Patient developed tachy-dalia syndrome the morning of 04/20/2025 and is going to get a pacemaker on 04/21/2025. Tachy-dalia syndrome b/l significant biatrial enlargement Sinus pauses Patient to get a pacemaker on 04/21/2025 Per cardiology EP note: . Rate control has been difficult due to conversion pauses up to 8 seconds in duration. She has also had episodes of accelerated junctional rhythm on tele. EP has been cs'ed for PPM implantation for tachy-dalia syndrome today later today Plan: Pt getting PPM today, can resume AC post PPM placement, antiarrythmics to be considered if she is in Afib op f/up for her valvular heart disease Cardiology following Patient continues to complain of substernal elephant like pressured chest pain l ikely from costochondritis Repeat EKG and troponin flat without any overt signs of ACS, no hemodynamic instability, no lightheadedness no syncope Pain control with Tylenol and morphine as needed with good effect Continue to monitor on telemetry AFib with RVR, resolved CAD History of SVT in prior hospitalization at [facility] continue Eliquis post PPM - resume aspirin post PPM Sepsis secondary to UTI based on prior records it appears that she had Enterococcus only sensitive to linezolid Patient repeatedly appears to have treatment resistant Enterococcus Since the patient is already on linezolid prior to admission, the repeat cultures have thus far been negative No overt signs of bacteremia noted History of SDH Based on records from [facility] and [facility], patient appears to have had SDH, for which Eliquis was held briefly and resumed prior to discharge from there. Continuing to monitor neurological status. rESUME POST ppm PREM, likely secondary to dehydration, diuretics - monitor BMP Type 2 diabetes - diabetic diet - sliding scale insulin - Lantus - Hold Jardiance - given UTI - despite risks vs benefits Hypothyroid - levothyroxine DNR/DNI VTE prophylaxis: Eliquis Before escalating care, reach out to the son. Patient has guarded prognosis. Given the guarded prognosis, hemodynamic collapse, and need for pacemaker, patient needs to be hospitalized for the next few days as prognosis is guarded. Patient also continues to need IV antibiotics for UTI. Quality Stroke Does the patient have a stroke diagnosis?: No VTE Prior VTE?: Yes VTE Risk Level:: Medical - moderate - high VTE Device Contraindication: Treatment Not Indicated VTE Drug Contraindication: N/A - Med Ordered
[2025-04-21 07:31] LABS: Glucose, Whole Blood 64 mg/dL (60-115)
[2025-04-21] MEDS: Dorzolamide HCl 2 % Ophth Sol 10 ML DRPBTL 1 DROP EYE-BOTH (09:46)
[2025-04-21] MEDS: Brimonidine Tartrate 0.2% Oph 5 ML BOTTLE 1 DROP EYE-BOTH (09:46)
[2025-04-21] MEDS: Amphetamine Mixed Salts 10 MG TABLET 30 MG PO (09:46)
[2025-04-21] MEDS: Lidocaine 4 % Patch ADH..PATCH 2 PATCH TRANSDERMA (09:47)
[2025-04-21] MEDS: 0.9 % Sodium Chloride Flush 3 ML SYRINGE IVFLUSH (09:50)
[2025-04-21] MEDS: Linezolid/D5W 600 MG/300 ML PIGGYBACK 300 MG IV ×2 (11:29→23:17)
[2025-04-21 11:31] LABS: Glucose, Whole Blood 108 mg/dL (60-115)
--- NOTE | 2025-04-21 12:13 | HO.WOUND ---
Wound Consult: Follow up 65yr old?female admitted to [facility] on 04/16/25- See progress notes and H&P for detailed history.? Wound consult follow up placed for coccyx wound POA.? Patient agreeable to assessment and photo documentation.? Patient and son report the patient had a DTI wound from prior facility and this is improving at the current moment. Gluteal Fold Coccyx Coccyx 04/21/25 Etiology: Stage 2 Pressure Injury - Previously noted for DTI per pt and family. ??Present on Admission Measurements: 0.3cm x 0.4cm x 0.1cm Wound Bed: pink moist wound bed Drainage / Odor: None Edges: ?attached Alida wound: ?scar tissue and hyperpigmentaiton noted No Induration, Fluctuance or Warmth noted Pain: endorses pain with dressing change Goals of Treatment: ? Off Load Pressure and moist wound healing with Triad and Foam dressing Recommendations: 1. Turn and Reposition every 2 hours and as needed for patient comfort.? Use pillows or wedges to support off loading positions. 2. Off Load all bony prominences with use of pillows and heel boots if needed.? Apply Preventative foams where needed. ? 3. Monitor for incontinence and moisture control, use barrier creams when needed for prevention and treatment. 4. Provide adequate and supplemental nutrition.? 5. Order low air loss mattress. 6. When applicable maintain blood glucose levels per Providers order. Coccyx - Off Load Pressure with Q2 hr turns and use of pillows - Cleanse with PH balance spray or wipes, pat dry. ?Apply thin layer of Triad to wound bed. Do not remove all of paste between applications as this may cause further skin damage.? Cover with foam dressing to aid in off loading and protection from friction. Change every 3 days and PRN. Re-consult wound care Nurse for wound deterioration or wound changes.
--- NOTE | 2025-04-21 13:50 | P.PNCA_ITS ---
Subjective Subjective Date of Service: 04/21/25 Principal diagnosis: Tachy-dalia syndrome Interval history: Patient continues to have intermittent junctional rhythm. He has not had any rapid atrial fibrillation. Overnight had slow heart rate. Denies any lightheadedness, syncope. Echocardiogram shows severe tricuspid regurgitation and moderately severe mitral regurgitation biatrial enlargement. No signs or symptoms of heart failure. Review of Systems Constitutional: Reports weakness Eyes: Reports no additional eye complaints Cardiovascular: Reports no additional cardiovascular complaints Respiratory: Reports no additional respiratory complaints Gastrointestinal: Reports no additional gastrointestinal complaints Reports weakness Physical Exam Vital Signs: Last Vital Signs Temp 98.6 F 04/21/25 11:50 Pulse 66 04/21/25 11:57 Resp 18 04/21/25 11:50 BP 111/53 L 04/21/25 11:50 Pulse Ox 97 04/21/25 11:50 O2 Del Method Room Air 04/21/25 11:50 BMI result Body Mass Index 25.5 Const General: cooperative, comfortable, alert and awake Nutritional Appearance: overweight Orientation/consciousness: patient oriented x3 HEENT Head: Yes normocephalic and Yes atraumatic Neck Neck: Yes trachea midline, Yes supple and Yes no JVD Resp Effort & Inspection: decreased respiratory effort Auscultation: clear to auscultation bilaterally and diminished lung sounds Cardio Jugular venous distension: no JVD Rate: bradycardic Rhythm: regular rhythm Heart sounds: S1 normal heart sound present, S2 normal heart sound present, no click, no gallops and Murmur heart sound present GI Auscultation: normal bowel sounds Skin General skin exam: no rashes or lesions noted Neuro General: patient oriented x3 and moves all extremities Objective Labs and Meds 04/20/25 06:42 04/20/25 06:42 Lab results: Laboratory Results - last 24 hr 04/20/25 04/20/25 04/20/25 06:42 21:23 22:07 POC Glucose 88 Lactate Dehydrogenase 224 H Troponin I High Sens 8.5 TSH 3.55 04/20/25 04/21/25 04/21/25 23:16 07:14 11:15 POC Glucose 64 108 Lactate Dehydrogenase Troponin I High Sens 10.0 TSH Progress Note: A&P Assessment and plan (1) Tachy-dalia syndrome: Status: Acute Assessment and Plan: Tachy-dalia syndrome with intermittent atrial fibrillation and sinus rhythm. Still maintaining rhythm. Most likely due to underlying structural heart disease related to her valvular abnormality. She has significant biatrial enlargement including right atrial enlargement most likely cause for her tachy- dalia syndrome. I think she would benefit from pacemaker placement which is planned for later today. Once this is done she can resume her oral anticoagulation therapy with Eliquis. If atrial fibrillation becomes an issue then will use alternative agents including antiarrhythmic to control her rhythm. 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 Will follow with you. Thank you for allowing me to partake in her care Time Spent With Patient Time: Total time managing care of this patient today ____ minutes. Progress Note: Quality Stroke Does the patient have a stroke diagnosis?: No Procedures Date of Service Date of Service: 04/21/25
--- NOTE | 2025-04-21 14:36 | P.CONAN_ITS ---
[facility] Active Problems Active Problems: All Active Problems Tachy-dalia syndrome (Acute) Sepsis (Acute) PREM (acute kidney injury) (Acute) Atrial fibrillation with RVR (Acute) SIRS (systemic inflammatory response syndrome) (Acute) Acute UTI (Acute) Past Medical History Medical History Heart valve regurgitation Gitelman syndrome Polycystic ovarian syndrome Myocardial infarction Sleep apnea Fibromyalgia COPD (chronic obstructive pulmonary disease) Mild asthma Orthostatic hypotension Raynaud's disease Atrial fibrillation Pulmonary embolism Coronary atherosclerosis HTN (hypertension) Neuropathy Multiple sclerosis Chronic pain syndrome PTSD (post-traumatic stress disorder) Opioid dependence Depression Hypercalcemia Elevated cholesterol Type 2 diabetes mellitus Thyroid nodule Hypothyroid Family History Family history of problems with anesthesia: No Surgical History Surgical History Hx of reduction mammoplasty Hx of tubal ligation Hx of hernia repair History of rectal surgery History of colon resection S/P panniculectomy History of lobectomy of thyroid Hx of hysterectomy Hx of appendectomy Hx of dilation and curettage Hx of heart artery stent History of Problems with Anesthesia: No Social History Social History Household Members: Children and Other Household Members Other:: son Housing: Apartment Are you a primary home care manager rn to a significant other at home: No Do you presently have visiting nurse or other home services: No Patient Tobacco Use Status: Former Tobacco user Tobacco use type: Cigarette Smoked in Last 30 Days: No Use of substances other than those prescribed or required for medical reasons: No Currently Displaying Signs/Symptoms of Drug Intoxication Withdrawal: No Have you been hit, kicked, punched, or otherwise hurt by someone within the past year? If so, by whom?: No Do you feel safe in your current relationship?: No Is there a partner from a previous relationship who is making you feel unsafe now?: No Are you made to feel afraid or neglected: No Are you DNR?: Yes Advance Directives: No Advance Directives Information Provided: No Do you have a plan to hurt others: No Plan Nutrition Risks: No Nutritional Risk Patient : No service: No Meds Allergies Allergy/AdvReac Type Severity Reaction Status Date / Time diphenhydramine (From Allergy Severe Anaphylaxis Verified 04/16/25 19:37 Benadryl) Penicillins Allergy Severe Anaphylaxis Verified 04/16/25 19:37 Sulfa (Sulfonamide Allergy Severe Anaphylaxis Verified 04/16/25 19:37 Antibiotics) Cephalosporins Allergy Intermediate shortness Verified 04/16/25 19:37 of breath (can take cephalexin) clarithromycin Allergy Intermediate Shortness Verified 04/16/25 19:37 of Breath gabapentin Allergy Intermediate Confusion Verified 04/16/25 19:37 hydrochlorothiazide (From Allergy Intermediate Shortness Verified 04/16/25 19:37 Hyzaar) of Breath levofloxacin (From Levaquin) Allergy Intermediate dizziness/h Verified 04/16/25 19:37 eadache/ulices sea losartan (From Cozaar) Allergy Intermediate Shortness Verified 04/16/25 19:37 of Breath metformin Allergy Intermediate strange Verified 04/16/25 19:37 feeling amoxicillin (From Augmentin) Allergy Unknown Unknown Verified 04/16/25 19:37 clavulanic acid (From Allergy Unknown Unknown Verified 04/16/25 19:37 Augmentin) duloxetine (From Cymbalta) Allergy Unknown Unknown Verified 04/16/25 19:37 fluoxetine Allergy Unknown Unknown Verified 04/16/25 19:37 NSAIDS (Non-Steroidal Allergy Unknown Unknown Verified 04/16/25 19:37 Anti-Inflamma pregabalin AdvReac Intermediate Dizziness Verified 04/16/25 19:37 doxycycline AdvReac Mild Gastrointestinal Verified 04/16/25 19:37 Upset Active Medications: Current Medications Acetaminophen (Acetaminophen 325 Mg Tablet) 975 mg PO Q6H PRN PRN Reason: Pain, Mild 1-3,fever,headache Albuterol Sulfate (Albuterol Sulfate (0.083%) 2.5 Mg/3 Ml Vial.Neb) 2.5 mg INHALE Q6H PRN PRN Reason: Wheezing Amantadine HCl (Amantadine Hcl 100 Mg Capsule) 100 mg PO BID [facility] Last Admin: 04/21/25 09:44 Dose: 100 mg Amphetamine/Dextroamphetamine (Amphetamine Mixed Salts 10 Mg Tablet) 30 mg PO DAILY [facility] Last Admin: 04/21/25 09:46 Dose: 30 mg Aspirin (Aspirin 81 Mg Tab.Chew) 81 mg PO DAILY [facility] Last Admin: 04/21/25 09:44 Dose: 81 mg Atropine Sulfate (Atropine Sulfate 1 Mg/10 Ml Syringe) 1 mg IVPUSH ONCE PRN PRN Reason: bradicardia Bisacodyl (Bisacodyl 10 Mg Supp.Rect) 10 mg ME DAILY PRN On Hold: 04/18/25 17:30 PRN Reason: Constipation Brimonidine Tartrate (Brimonidine Tartrate 0.2% Oph 5 Ml Bottle) 1 drop EYE- BOTH BID [facility] Last Admin: 04/21/25 09:46 Dose: 1 drop Calcium Carbonate (Calcium Carbonate 750 Mg Tab.Chew) 750 mg PO Q4H PRN PRN Reason: Heartburn Diazepam (Diazepam 5 Mg Tablet) 5 mg PO Q8H PRN PRN Reason: Anxiety Last Admin: 04/20/25 18:24 Dose: 5 mg Dorzolamide HCl (Dorzolamide Hcl 2 % Ophth Doris 10 Ml Drpbtl) 1 drop EYE-BOTH BID [facility] Last Admin: 04/21/25 09:46 Dose: 1 drop Glucagon (Glucagon Hcl 1 Mg Vial) 1 mg SUBCUT Q20M PRN PRN Reason: FSBS< 60 & unable to swallow Last Admin: 04/21/25 09:44 Dose: 1 mg Glucose (Glucose Gel 15 Gm Gel..Gram.) 15 gm PO Q15M PRN PRN Reason: fsbs < 50 and able to swallow Last Admin: 04/20/25 06:59 Dose: 15 gm Linezolid (Zyvox/D5w) 600 mg in 300 mls @ 300 mls/hr IV Q12H [facility] Last Infusion: 04/21/25 12:32 Dose: Infused Dextrose/Sodium Chloride (D5ns) 1,000 mls @ 42 mls/hr IVCONT .[id number] [facility] Last Admin: 04/21/25 11:28 Dose: 42 mls/hr Insulin Human Lispro (Insulin Lispro 100 Unit/Ml 3 Ml Vial) 0 unit SUBCUT QIDACHS [facility]; Protocol Last Admin: 04/21/25 11:49 Dose: Not Given Ketorolac Tromethamine (Ketorolac Tromethamine 0.5% Op 5 Ml Drops) 1 drop EYE- RIGHT TID [facility] Last Admin: 04/21/25 09:46 Dose: Not Given Latanoprost (Latanoprost 0.005 % Ophth Doris 2.5 Ml Drops) 1 drop EYE-BOTH BEDTIME [facility] Last Admin: 04/20/25 22:08 Dose: Not Given Levothyroxine Sodium (Levothyroxine Sodium 75 Mcg Tablet) 75 mcg PO DAILY@0600 [facility] Last Admin: 04/21/25 06:25 Dose: Not Given Lidocaine (Lidocaine 4 % Patch Adh..Patch) 2 patch TRANSDERMA DAILY [facility]; Protocol Last Admin: 04/21/25 09:47 Dose: 2 patch Magnesium Hydroxide (Milk Of Magnesia 30 Ml Oral.Susp) 30 ml PO BEDTIME PRN PRN Reason: Constipation Melatonin (Melatonin 3 Mg Tablet) 6 mg PO BEDTIME [facility] Last Admin: 04/20/25 22:06 Dose: 6 mg Modafinil (Modafinil 100 Mg Tablet) 100 mg PO BID [facility] Last Admin: 04/21/25 09:45 Dose: 100 mg Montelukast Sodium (Montelukast Sodium 10 Mg Tablet) 10 mg PO DAILY [facility] Last Admin: 04/21/25 09:45 Dose: 10 mg Morphine Sulfate (Morphine Sulfate 4 Mg/Ml Cartridge) 1 mg IVPUSH Q4H PRN; Protocol PRN Reason: Pain, Moderate(Pain Scale 4-6) Last Admin: 04/21/25 02:34 Dose: 1 mg Multivitamins/Vitamin C (Multivitamin Tablet) 1 tab PO DAILY [facility] Last Admin: 04/21/25 09:45 Dose: 1 tab Nystatin (Nystatin Powder 15 Gm Bottle) 1 appl TOPICAL BID [facility]; Protocol Last Admin: 04/21/25 09:51 Dose: 1 appl Omeprazole (Omeprazole 20 Mg Capsule.Dr) 20 mg PO DAILY@0630 [facility] Last Admin: 04/21/25 06:25 Dose: Not Given Ondansetron HCl (Ondansetron Hcl 4 Mg/2 Ml Vial) 4 mg IVPUSH Q8H PRN PRN Reason: Nausea and Vomiting Prednisolone Acetate (Prednisolone Acetate 1 % Oph Susp 5 Ml Drpbtl) 1 drop EYE-RIGHT TID [facility] Last Admin: 04/21/25 09:51 Dose: Not Given Promethazine HCl (Promethazine Hcl 25 Mg Tablet) 25 mg PO Q6H PRN PRN Reason: Nausea Last Admin: 04/21/25 11:28 Dose: 25 mg Sildenafil Citrate (Sildenafil Citrate 20 Mg Tablet) 20 mg PO TID [facility] Last Admin: 04/21/25 09:44 Dose: 20 mg Sodium Biphosphate/Sodium Phosphate (Sodium Phosphate,[place]-Dibasic 133 Ml Enema) 118 ml ME BEDTIME PRN PRN Reason: Constipation Sodium Chloride (0.9 % Sodium Chloride Flush 3 Ml Syringe) 3 ml IVFLUSH QSHIFT [facility] Last Admin: 04/21/25 09:50 Dose: 3 ml Thiamine HCl (Thiamine Hcl 100 Mg Tablet) 100 mg PO DAILY [facility] Last Admin: 04/21/25 09:44 Dose: 100 mg Tramadol HCl (Tramadol Hcl 50 Mg Tablet) 50 mg PO Q6H PRN PRN Reason: Pain, Moderate(Pain Scale 4-6) Trazodone HCl (Trazodone Hcl 50 Mg Tablet) 50 mg PO Q6H PRN PRN Reason: Insomnia Home Medications ?Medication ?Instructions ?Recorded ?Confirmed ?Last Taken ?Type amantadine HCl 100 mg capsule 100 mg PO BID 12/13/22 1 06/17/24 Unknown History apixaban 5 mg tablet (Eliquis) 5 mg PO BID 12/13/22 Unknown History brimonidine 0.2 % eye drops 1 drp ophthalmic (eye) BID 12/13/22 04/17/25 Unknown History dorzolamide 2 % eye drops 1 drp ophthalmic (eye) BID 0 12/13/22 04/17/25 Unknown History modafinil 100 mg tablet 100 mg PO BID 12/13/2204/17 Unknown History montelukast 10 mg tablet 10 mg PO DAILY 12/13/2203/03 Unknown History morphine 15 mg immediate release 15 mg PO Q8H PRN Pain 12/13/22 04/17/25 12/18/22 History tablet promethazine 25 mg tablet 25 mg PO Q6H PRN Nausea 12/2904/17/25 Unknown History sildenafil (pulm.hypertension) 20 20 mg PO TID 3 04/17/25 Unknown History mg tablet albuterol sulfate 2.5 mg/3 mL 2.5 mg inhalation Q6H ME N Wheezing 04/17/25 04/17/25 Unknown History (0.083 %) solution for nebulization aspirin 81 mg chewable tablet 81 mg PO DAILY 04/17/25 04/17/25 Unknown History bisacodyl 10 mg rectal suppository 10 mg ME DAILY PRN Constipation 04/17/25 04/17/25 Unknown History camphor-menthol 0.5 %-0.5 % lotion 1 appl topical BID PRN Itching 04/17/25 04/17/25 Unknown History dextroamphetamine-amphetamine 30 30 mg PO DAILY 04/17/25 Unknown History mg tablet (Adderall) dextrose 40 % oral gel (Glucose 15 g PO Q15M PRN fsbs < 50 and 04/17/25 04/17/25 Unknown History Gel) able to swallow diazepam 5 mg tablet 5 mg PO Q8H PRN Anxiety 03/0304/17/25 Unknown History diclofenac sodium 1 % topical gel 2 g topical QID 03/0304/17/25 Unknown History diltiazem HCl 300 mg capsule,24 300 mg PO DAILY 04/17/25 Unknown History hr,extended release dulaglutide 3 mg/0.5 mL 3 mg subcut TU@0904/17/25 04/17/25 Unknown History subcutaneous pen injector (Trulicity) dupilumab 300 mg/2 mL subcutaneous 300 mg subcut Q2W 1 06/17/24 04/17/25 Unknown History syringe (Dupixent) empagliflozin 10 mg tablet 10 mg PO DAILY 04/17/2503/03 Unknown History (Jardiance) glucagon 1 mg solution for 1 mg subcut Q20M PRN fsbs b eloq 60 04/17/25 04/17/25 Unknown History injection and unable to swallow insulin glargine 100 unit/mL (3 30 unit subcut BEDTIME 04/17/25 04/17/25 Unknown History mL) subcutaneous pen (Lantus Solostar U-100 Insulin) insulin lispro 100 unit/mL 1 sliding scale dose subcut TIDAC 04/17/25 04/17/25 Unknown History subcutaneous solution (Humalog U-100 Insulin) ketorolac 0.5 % eye drops 1 drp ophthalmic-Right TID 1 06/17/24 04/17/25 Unknown History latanoprost 0.005 % eye drops 1 drp ophthalmic (eye) B EDTIME 04/17/25 04/17/25 Unknown History levothyroxine 75 mcg tablet 75 mcg PO DAILY@0600 04/1704/17/25 Unknown History lidocaine 4 % topical patch 2 patch topical DAILY 03/0304/17/25 Unknown History linezolid 600 mg tablet 600 mg PO BID 04/17/2504/17 Unknown History magnesium hydroxide 400 mg/5 mL 30 ml PO BEDTIME PRN C onstipation 04/17/25 04/17/25 Unknown History oral suspension (Milk of Magnesia) melatonin 5 mg tablet 5 mg PO BEDTIME 04/17/2503/03 Unknown History metoprolol succinate 50 mg 50 mg PO DAILY 04/17/2503/03 Unknown History tablet,extended release 24 hr multivitamin with minerals 1 tab PO DAILY 04/17/2503/03 Unknown History nystatin 100,000 unit/gram topical 1 appl topical BID 04/17/25 04/17/25 Unknown History powder pantoprazole 20 mg tablet,delayed 20 mg PO DAILY@0630 04/17/25 04/17/25 Unknown History release prednisolone acetate 1 % eye 1 drp ophthalmic-Right TI D 04/17/25 04/17/25 Unknown History drops,suspension sodium chloride 7 % for 1 inh inhalation BID 5 04/17/25 Unknown History nebulization sodium phosphates 19 gram-7 118 ml ME BEDTIME PRN Cons tipation 04/17/25 04/17/25 Unknown History gram/118 mL enema (Fleet Enema) spironolactone 25 mg tablet 25 mg PO DAILY 04/17/25 Unknown History thiamine HCl (vitamin B1) 100 mg 100 mg PO DAILY 04/1704/17/25 Unknown History tablet torsemide 20 mg tablet 40 mg PO DAILY 04/17/2503/03 Unknown History trazodone 50 mg tablet 50 mg PO Q6H PRN Insomnia 04/17/25 Unknown History Exam Height,Weight and Vital Signs: Height 5 ft 2 in Weight 63.2 kg Last Vital Signs Temp 97.8 F 04/21/25 14:16 Pulse 62 04/21/25 14:16 Resp 18 04/21/25 14:16 BP 104/49 L 04/21/25 14:16 Pulse Ox 98 04/21/25 14:16 O2 Del Method Room Air 04/21/25 14:16 Pertinent Lab Results Pertinent Lab Results: Laboratory Tests 04/16/25 04/17/25 04/17/25 19:51 20:41 20:50 WBC 17.5 H 15.8 H RBC 2.88 L 3.04 L Hgb 8.3 L 8.7 L Hct 26.0 L 26.9 L MCV 90.3 88.5 MCH 28.8 28.6 MCHC 31.9 32.3 RDW 16.2 H 16.2 H Plt Count 402 H 379 MPV 9.1 L 8.9 L Immature Gran % (Auto) Cancelled 3.8 H Neut % (Auto) Cancelled 74.7 H Lymph % (Auto) Cancelled 11.7 L [place] % (Auto) Cancelled 8.3 Eos % (Auto) Cancelled 0.8 Baso % (Auto) Cancelled 0.7 Lymph # (Auto) Cancelled 1.9 [place] # (Auto) Cancelled 1.3 H Eos # (Auto) Cancelled 0.1 Baso # (Auto) Cancelled 0.1 Abs Immat Gran (auto) Cancelled 0.60 H Absolute Neuts (auto) Cancelled 11.9 H Absolute Nucleated RBC 0.000 0.000 Nucleated RBC % (auto) 0.0 0.0 Neutrophils % (Manual) 80 H Band Neutrophils % 5 Lymphocytes % (Manual) 8 L Atypical Lymphs % (Man) 2 Monocytes % (Manual) 2 Eosinophils % (Manual) 1 Promyelocytes % 2 Abs Neuts (Manual) 14.9 H Lymphocytes # (Manual) 1.4 Atyp Lymphs # (Manual) 0.4 Monocytes # (Manual) 0.4 Eosinophils # (Manual) 0.2 Promyelocytes # 0.4 Smudge Cells PRESENT Toxic Granulation PRESENT Toxic Vacuolation PRESENT Platelet Estimate NORMAL Large Platelets PRESENT Plt Morphology Comment NOTED RBC Morphology NORMAL Polychromasia 1+ (0-2) Schistocytes 1+ (0-2) Hold Purple Top Sodium 138 137 Potassium 3.6 3.4 Chloride 104 103 Carbon Dioxide 24 21 L Anion Gap 14 16 BUN 37 H 35 H Creatinine 1.69 H 1.60 H Estim Creat Clear Calc 28.2 29.8 Estimated GFR 30 32 POC Glucose Random Glucose 138 H 194 H Lactic Acid 2.3 H* Lactic Acid F/U @ 2Hr Lactic Acid F/U @ 4Hr Calcium 9.0 9.1 Magnesium Total Bilirubin 0.4 0.3 AST 50 H 47 H ALT 18 20 Alkaline Phosphatase 305 H 275 H Lactate Dehydrogenase Troponin I High Sens 9.1 9.7 Total Protein 6.5 6.9 Albumin 3.0 L 3.2 L TSH Urine Color Urine Appearance Urine pH Ur Specific [place] Urine Protein Urine Glucose (UA) Urine Ketones Urine Blood Urine Nitrite Ur Leukocyte Esterase Urine RBC Urine WBC Ur Squamous Epith Cells Urine Bacteria Hyaline Casts Urine Yeast Stl C. cayetanensis PCR Stool Rotavirus A PCR Stl Adenov F 40/41 PCR Stool Astrovirus (PCR) Stool Campylobacter PCR Stool Cryptosporidium PCR Stl Sh Tox Pr E STEC PCR Stool E coli O157 PCR Stl Enterotoxigenic E PCR Stool EPEC (PCR) Stool EAEC (PCR) Stl E. histolytica PCR Stool Giardia Lamblia PCR Stl P. shigelloides PCR Stool Salmonella PCR Stool Sapovirus (PCR) Stl Shigella/EIEC PCR St Y.enterocolitica PCR Stool Vibrio (PCR) Stl Vibrio cholerae PCR Stl Norovirus GI/GII PCR C. difficile Tox B Gene 04/17/25 04/17/25 04/18/25 21:32 23:14 01:35 WBC RBC Hgb Hct MCV MCH MCHC RDW Plt Count MPV Immature Gran % (Auto) Neut % (Auto) Lymph % (Auto) [place] % (Auto) Eos % (Auto) Baso % (Auto) Lymph # (Auto) [place] # (Auto) Eos # (Auto) Baso # (Auto) Abs Immat Gran (auto) Absolute Neuts (auto) Absolute Nucleated RBC Nucleated RBC % (auto) Neutrophils % (Manual) Band Neutrophils % Lymphocytes % (Manual) Atypical Lymphs % (Man) Monocytes % (Manual) Eosinophils % (Manual) Promyelocytes % Abs Neuts (Manual) Lymphocytes # (Manual) Atyp Lymphs # (Manual) Monocytes # (Manual) Eosinophils # (Manual) Promyelocytes # Smudge Cells Toxic Granulation Toxic Vacuolation Platelet Estimate Large Platelets Plt Morphology Comment RBC Morphology Polychromasia Schistocytes Hold Purple Top Sodium Potassium Chloride Carbon Dioxide Anion Gap BUN Creatinine Estim Creat Clear Calc Estimated GFR POC Glucose Random Glucose Lactic Acid Lactic Acid F/U @ 2Hr 2.1 H* Lactic Acid F/U @ 4Hr 1.4 Calcium Magnesium Total Bilirubin AST ALT Alkaline Phosphatase Lactate Dehydrogenase Troponin I High Sens Total Protein Albumin TSH Urine Color Yellow Urine Appearance Turbid Urine pH 5.5 Ur Specific [place] 1.020 Urine Protein 30 (1+) H Urine Glucose (UA) >=1000 H Urine Ketones Negative Urine Blood Large (3+) H Urine Nitrite Negative Ur Leukocyte Esterase Moderate (2+) H Urine RBC >20 H Urine WBC >50 H Ur Squamous Epith Cells 3-5 Urine Bacteria 1+ Hyaline Casts 3-5 Urine Yeast Present Stl C. cayetanensis PCR Stool Rotavirus A PCR Stl Adenov F 40 PCR Stool Astrovirus (PCR) Stool Campylobacter PCR Stool Cryptosporidium PCR Stl Sh Tox Pr E STEC PCR Stool E coli O157 PCR Stl Enterotoxigenic E PCR Stool EPEC (PCR) Stool EAEC (PCR) Stl E. histolytica PCR Stool Giardia Lamblia PCR Stl P. shigelloides PCR Stool Salmonella PCR Stool Sapovirus (PCR) Stl Shigella/EIEC PCR St Y.enterocolitica PCR Stool Vibrio (PCR) Stl Vibrio cholerae PCR Stl Norovirus GI/GII PCR C. difficile Tox B Gene 04/18/25 04/18/25 04/18/25 04:28 12:37 18:10 WBC 13.7 H RBC 2.54 L Hgb 7.1 L Hct 22.8 L MCV 89.8 MCH 28.0 MCHC 31.1 RDW 16.4 H Plt Count 316 MPV 9.1 L Immature Gran % (Auto) 3.7 H Neut % (Auto) 78.3 H Lymph % (Auto) 8.3 L [place] % (Auto) 8.3 Eos % (Auto) 0.7 Baso % (Auto) 0.7 Lymph # (Auto) 1.1 L [place] # (Auto) 1.1 Eos # (Auto) 0.1 Baso # (Auto) 0.1 Abs Immat Gran (auto) 0.51 H Absolute Neuts (auto) 10.7 H Absolute Nucleated RBC 0.000 Nucleated RBC % (auto) 0.0 Neutrophils % (Manual) Band Neutrophils % Lymphocytes % (Manual) Atypical Lymphs % (Man) Monocytes % (Manual) Eosinophils % (Manual) Promyelocytes % Abs Neuts (Manual) Lymphocytes # (Manual) Atyp Lymphs # (Manual) Monocytes # (Manual) Eosinophils # (Manual) Promyelocytes # Smudge Cells Toxic Granulation Toxic Vacuolation Platelet Estimate Large Platelets Plt Morphology Comment RBC Morphology Polychromasia Schistocytes Hold Purple Top Sodium 136 Potassium 3.3 Chloride 105 Carbon Dioxide 22 Anion Gap 12 BUN 27 H Creatinine 1.31 Estim Creat Clear Calc 36.4 Estimated GFR 40 POC Glucose 167 H Random Glucose 154 H Lactic Acid Lactic Acid F/U @ 2Hr Lactic Acid F/U @ 4Hr Calcium 8.4 D Magnesium Total Bilirubin AST ALT Alkaline Phosphatase Lactate Dehydrogenase Troponin I High Sens 6.4 Total Protein Albumin TSH Urine Color Urine Appearance Urine pH Ur Specific [place] Urine Protein Urine Glucose (UA) Urine Ketones Urine Blood Urine Nitrite Ur Leukocyte Esterase Urine RBC Urine WBC Ur Squamous Epith Cells Urine Bacteria Hyaline Casts Urine Yeast Stl C. cayetanensis PCR Stool Rotavirus A PCR Stl Adenov F PCR Stool Astrovirus (PCR) Stool Campylobacter PCR Stool Cryptosporidium PCR Stl Sh Tox Pr E STEC PCR Stool E coli O157 PCR Stl Enterotoxigenic E PCR Stool EPEC (PCR) Stool EAEC (PCR) Stl E. histolytica PCR Stool Giardia Lamblia PCR Stl P. shigelloides PCR Stool Salmonella PCR Stool Sapovirus (PCR) Stl Shigella/EIEC PCR St Y.enterocolitica PCR Stool Vibrio (PCR) Stl Vibrio cholerae PCR Stl Norovirus GI/GII PCR C. difficile Tox B Gene 04/18/25 04/19/25 04/19/25 20:52 05:18 07:04 WBC 12.3 H RBC 2.58 L Hgb 7.5 L Hct 23.3 L MCV 90.3 MCH 29.1 MCHC 32.2 RDW 16.1 H Plt Count 336 MPV 9.2 L Immature Gran % (Auto) 2.0 H Neut % (Auto) 79.4 H Lymph % (Auto) 9.3 L [place] % (Auto) 7.6 Eos % (Auto) 1.1 Baso % (Auto) 0.6 Lymph # (Auto) 1.1 L [place] # (Auto) 0.9 Eos # (Auto) 0.1 Baso # (Auto) 0.1 Abs Immat Gran (auto) 0.25 H Absolute Neuts (auto) 9.8 H Absolute Nucleated RBC 0.000 Nucleated RBC % (auto) 0.0 Neutrophils % (Manual) Band Neutrophils % Lymphocytes % (Manual) Atypical Lymphs % (Man) Monocytes % (Manual) Eosinophils % (Manual) Promyelocytes % Abs Neuts (Manual) Lymphocytes # (Manual) Atyp Lymphs # (Manual) Monocytes # (Manual) Eosinophils # (Manual) Promyelocytes # Smudge Cells Toxic Granulation Toxic Vacuolation Platelet Estimate Large Platelets Plt Morphology Comment RBC Morphology Polychromasia Schistocytes Hold Purple Top Sodium 136 Potassium 3.3 Chloride 107 Carbon Dioxide 19 L Anion Gap 13 BUN 28 H Creatinine 1.15 Estim Creat Clear Calc 41.4 Estimated GFR 47 POC Glucose 201 H 217 H Random Glucose 153 H Lactic Acid Lactic Acid F/U @ 2Hr Lactic Acid F/U @ 4Hr Calcium 8.6 Magnesium 1.6 Total Bilirubin AST ALT Alkaline Phosphatase Lactate Dehydrogenase Troponin I High Sens Total Protein Albumin TSH Urine Color Urine Appearance Urine pH Ur Specific [place] Urine Protein Urine Glucose (UA) Urine Ketones Urine Blood Urine Nitrite Ur Leukocyte Esterase Urine RBC Urine WBC Ur Squamous Epith Cells Urine Bacteria Hyaline Casts Urine Yeast Stl C. cayetanensis PCR Stool Rotavirus A PCR Stl Adenov F PCR Stool Astrovirus (PCR) Stool Campylobacter PCR Stool Cryptosporidium PCR Stl Sh Tox Pr E STEC PCR Stool E coli O157 PCR Stl Enterotoxigenic E PCR Stool EPEC (PCR) Stool EAEC (PCR) Stl E. histolytica PCR Stool Giardia Lamblia PCR Stl P. shigelloides PCR Stool Salmonella PCR Stool Sapovirus (PCR) Stl Shigella/EIEC PCR St Y.enterocolitica PCR Stool Vibrio (PCR) Stl Vibrio cholerae PCR Stl Norovirus GI/GII PCR C. difficile Tox B Gene 04/19/25 04/19/25 04/19/25 11:19 16:50 18:00 WBC RBC Hgb Hct MCV MCH MCHC RDW Plt Count MPV Immature Gran % (Auto) Neut % (Auto) Lymph % (Auto) [place] % (Auto) Eos % (Auto) Baso % (Auto) Lymph # (Auto) [place] # (Auto) Eos # (Auto) Baso # (Auto) Abs Immat Gran (auto) Absolute Neuts (auto) Absolute Nucleated RBC Nucleated RBC % (auto) Neutrophils % (Manual) Band Neutrophils % Lymphocytes % (Manual) Atypical Lymphs % (Man) Monocytes % (Manual) Eosinophils % (Manual) Promyelocytes % Abs Neuts (Manual) Lymphocytes # (Manual) Atyp Lymphs # (Manual) Monocytes # (Manual) Eosinophils # (Manual) Promyelocytes # Smudge Cells Toxic Granulation Toxic Vacuolation Platelet Estimate Large Platelets Plt Morphology Comment RBC Morphology Polychromasia Schistocytes Hold Purple Top Sodium Potassium Chloride Carbon Dioxide Anion Gap BUN Creatinine Estim Creat Clear Calc Estimated GFR POC Glucose 148 H 102 Random Glucose Lactic Acid Lactic Acid F/U @ 2Hr Lactic Acid F/U @ 4Hr Calcium Magnesium Total Bilirubin AST ALT Alkaline Phosphatase Lactate Dehydrogenase Troponin I High Sens Total Protein Albumin TSH Urine Color Urine Appearance Urine pH Ur Specific [place] Urine Protein Urine Glucose (UA) Urine Ketones Urine Blood Urine Nitrite Ur Leukocyte Esterase Urine RBC Urine WBC Ur Squamous Epith Cells Urine Bacteria Hyaline Casts Urine Yeast Stl C. cayetanensis PCR Not Detected Stool Rotavirus A PCR Not Detected Stl Adenov F 40/41 PCR Not Detected Stool Astrovirus (PCR) Not Detected Stool Campylobacter PCR Not Detected Stool Cryptosporidium PCR Not Detected Stl Sh Tox Pr E STEC PCR Not Detected Stool E coli O157 PCR Not applicable Stl Enterotoxigenic E PCR Not Detected Stool EPEC (PCR) Not Detected Stool EAEC (PCR) Not Detected Stl E. histolytica PCR Not Detected Stool Giardia Lamblia PCR Not Detected Stl P. shigelloides PCR Not Detected Stool Salmonella PCR Not Detected Stool Sapovirus (PCR) Not Detected Stl Shigella/EIEC PCR Not Detected St Y.enterocolitica PCR Not Detected Stool Vibrio (PCR) Not Detected Stl Vibrio cholerae PCR Not Detected Stl Norovirus GI/GII PCR Not Detected C. difficile Tox B Gene NEGATIVE 04/19/25 04/20/25 04/20/25 20:57 06:42 06:50 WBC 11.4 H RBC 2.59 L Hgb 7.3 L Hct 23.4 L MCV 90.3 MCH 28.2 MCHC 31.2 RDW 16.2 H Plt Count 328 MPV 8.7 L Immature Gran % (Auto) 2.6 H Neut % (Auto) 76.1 H Lymph % (Auto) 12.2 L [place] % (Auto) 7.4 Eos % (Auto) 1.1 Baso % (Auto) 0.6 Lymph # (Auto) 1.4 [place] # (Auto) 0.8 Eos # (Auto) 0.1 Baso # (Auto) 0.1 Abs Immat Gran (auto) 0.30 H Absolute Neuts (auto) 8.6 H Absolute Nucleated RBC 0.000 Nucleated RBC % (auto) 0.0 Neutrophils % (Manual) Band Neutrophils % Lymphocytes % (Manual) Atypical Lymphs % (Man) Monocytes % (Manual) Eosinophils % (Manual) Promyelocytes % Abs Neuts (Manual) Lymphocytes # (Manual) Atyp Lymphs # (Manual) Monocytes # (Manual) Eosinophils # (Manual) Promyelocytes # Smudge Cells Toxic Granulation Toxic Vacuolation Platelet Estimate Large Platelets Plt Morphology Comment RBC Morphology Polychromasia Schistocytes Hold Purple Top Sodium 139 Potassium 3.3 Chloride 112 H Carbon Dioxide 20 L Anion Gap 10 L BUN 20 H Creatinine 0.96 Estim Creat Clear Calc 49.6 Estimated GFR 58 POC Glucose 164 H 58 L* Random Glucose 65 Lactic Acid Lactic Acid F/U @ 2Hr Lactic Acid F/U @ 4Hr Calcium 8.3 L Magnesium Total Bilirubin AST ALT Alkaline Phosphatase Lactate Dehydrogenase 224 H Troponin I High Sens Total Protein Albumin TSH 3.55 Urine Color Urine Appearance Urine pH Ur Specific [place] Urine Protein Urine Glucose (UA) Urine Ketones Urine Blood Urine Nitrite Ur Leukocyte Esterase Urine RBC Urine WBC Ur Squamous Epith Cells Urine Bacteria Hyaline Casts Urine Yeast Stl C. cayetanensis PCR Stool Rotavirus A PCR Stl Adenov F 40 PCR Stool Astrovirus (PCR) Stool Campylobacter PCR Stool Cryptosporidium PCR Stl Sh Tox Pr E STEC PCR Stool E coli O157 PCR Stl Enterotoxigenic E PCR Stool EPEC (PCR) Stool EAEC (PCR) Stl E. histolytica PCR Stool Giardia Lamblia PCR Stl P. shigelloides PCR Stool Salmonella PCR Stool Sapovirus (PCR) Stl Shigella/EIEC PCR St Y.enterocolitica PCR Stool Vibrio (PCR) Stl Vibrio cholerae PCR Stl Norovirus GI/GII PCR C. difficile Tox B Gene 04/20/25 04/20/25 04/20/25 07:07 07:32 10:52 WBC RBC Hgb Hct MCV MCH MCHC RDW Plt Count MPV Immature Gran % (Auto) Neut % (Auto) Lymph % (Auto) [place] % (Auto) Eos % (Auto) Baso % (Auto) Lymph # (Auto) [place] # (Auto) Eos # (Auto) Baso # (Auto) Abs Immat Gran (auto) Absolute Neuts (auto) Absolute Nucleated RBC Nucleated RBC % (auto) Neutrophils % (Manual) Band Neutrophils % Lymphocytes % (Manual) Atypical Lymphs % (Man) Monocytes % (Manual) Eosinophils % (Manual) Promyelocytes % Abs Neuts (Manual) Lymphocytes # (Manual) Atyp Lymphs # (Manual) Monocytes # (Manual) Eosinophils # (Manual) Promyelocytes # Smudge Cells Toxic Granulation Toxic Vacuolation Platelet Estimate Large Platelets Plt Morphology Comment RBC Morphology Polychromasia Schistocytes Hold Purple Top Sodium Potassium Chloride Carbon Dioxide Anion Gap BUN Creatinine Estim Creat Clear Calc Estimated GFR POC Glucose 67 95 138 H Random Glucose Lactic Acid Lactic Acid F/U @ 2Hr Lactic Acid F/U @ 4Hr Calcium Magnesium Total Bilirubin AST ALT Alkaline Phosphatase Lactate Dehydrogenase Troponin I High Sens Total Protein Albumin TSH Urine Color Urine Appearance Urine pH Ur Specific [place] Urine Protein Urine Glucose (UA) Urine Ketones Urine Blood Urine Nitrite Ur Leukocyte Esterase Urine RBC Urine WBC Ur Squamous Epith Cells Urine Bacteria Hyaline Casts Urine Yeast Stl C. cayetanensis PCR Stool Rotavirus A PCR Stl Adenov F PCR Stool Astrovirus (PCR) Stool Campylobacter PCR Stool Cryptosporidium PCR Stl Sh Tox Pr E STEC PCR Stool E coli O157 PCR Stl Enterotoxigenic E PCR Stool EPEC (PCR) Stool EAEC (PCR) Stl E. histolytica PCR Stool Giardia Lamblia PCR Stl P. shigelloides PCR Stool Salmonella PCR Stool Sapovirus (PCR) Stl Shigella/EIEC PCR St Y.enterocolitica PCR Stool Vibrio (PCR) Stl Vibrio cholerae PCR Stl Norovirus GI/GII PCR C. difficile Tox B Gene 04/20/25 04/20/25 04/20/25 11:01 11:11 21:23 WBC RBC Hgb Hct MCV MCH MCHC RDW Plt Count MPV Immature Gran % (Auto) Neut % (Auto) Lymph % (Auto) [place] % (Auto) Eos % (Auto) Baso % (Auto) Lymph # (Auto) [place] # (Auto) Eos # (Auto) Baso # (Auto) Abs Immat Gran (auto) Absolute Neuts (auto) Absolute Nucleated RBC Nucleated RBC % (auto) Neutrophils % (Manual) Band Neutrophils % Lymphocytes % (Manual) Atypical Lymphs % (Man) Monocytes % (Manual) Eosinophils % (Manual) Promyelocytes % Abs Neuts (Manual) Lymphocytes # (Manual) Atyp Lymphs # (Manual) Monocytes # (Manual) Eosinophils # (Manual) Promyelocytes # Smudge Cells Toxic Granulation Toxic Vacuolation Platelet Estimate Large Platelets Plt Morphology Comment RBC Morphology Polychromasia Schistocytes Hold Purple Top SEE NOTE Sodium Potassium Chloride Carbon Dioxide Anion Gap BUN Creatinine Estim Creat Clear Calc Estimated GFR POC Glucose Random Glucose Lactic Acid Lactic Acid F/U @ 2Hr Lactic Acid F/U @ 4Hr Calcium Magnesium Total Bilirubin AST ALT Alkaline Phosphatase Lactate Dehydrogenase Troponin I High Sens 6.4 8.5 Total Protein Albumin TSH Urine Color Urine Appearance Urine pH Ur Specific [place] Urine Protein Urine Glucose (UA) Urine Ketones Urine Blood Urine Nitrite Ur Leukocyte Esterase Urine RBC Urine WBC Ur Squamous Epith Cells Urine Bacteria Hyaline Casts Urine Yeast Stl C. cayetanensis PCR Stool Rotavirus A PCR Stl Adenov F 40/41 PCR Stool Astrovirus (PCR) Stool Campylobacter PCR Stool Cryptosporidium PCR Stl Sh Tox Pr E STEC PCR Stool E coli O157 PCR Stl Enterotoxigenic E PCR Stool EPEC (PCR) Stool EAEC (PCR) Stl E. histolytica PCR Stool Giardia Lamblia PCR Stl P. shigelloides PCR Stool Salmonella PCR Stool Sapovirus (PCR) Stl Shigella/EIEC PCR St Y.enterocolitica PCR Stool Vibrio (PCR) Stl Vibrio cholerae PCR Stl Norovirus GI/GII PCR C. difficile Tox B Gene 04/20/25 04/20/25 04/21/25 22:07 23:16 07:14 WBC RBC Hgb Hct MCV MCH MCHC RDW Plt Count MPV Immature Gran % (Auto) Neut % (Auto) Lymph % (Auto) [place] % (Auto) Eos % (Auto) Baso % (Auto) Lymph # (Auto) [place] # (Auto) Eos # (Auto) Baso # (Auto) Abs Immat Gran (auto) Absolute Neuts (auto) Absolute Nucleated RBC Nucleated RBC % (auto) Neutrophils % (Manual) Band Neutrophils % Lymphocytes % (Manual) Atypical Lymphs % (Man) Monocytes % (Manual) Eosinophils % (Manual) Promyelocytes % Abs Neuts (Manual) Lymphocytes # (Manual) Atyp Lymphs # (Manual) Monocytes # (Manual) Eosinophils # (Manual) Promyelocytes # Smudge Cells Toxic Granulation Toxic Vacuolation Platelet Estimate Large Platelets Plt Morphology Comment RBC Morphology Polychromasia Schistocytes Hold Purple Top Sodium Potassium Chloride Carbon Dioxide Anion Gap BUN Creatinine Estim Creat Clear Calc Estimated GFR POC Glucose 88 64 Random Glucose Lactic Acid Lactic Acid F/U @ 2Hr Lactic Acid F/U @ 4Hr Calcium Magnesium Total Bilirubin AST ALT Alkaline Phosphatase Lactate Dehydrogenase Troponin I High Sens 10.0 Total Protein Albumin TSH Urine Color Urine Appearance Urine pH Ur Specific [place] Urine Protein Urine Glucose (UA) Urine Ketones Urine Blood Urine Nitrite Ur Leukocyte Esterase Urine RBC Urine WBC Ur Squamous Epith Cells Urine Bacteria Hyaline Casts Urine Yeast Stl C. cayetanensis PCR Stool Rotavirus A PCR Stl Adenov F PCR Stool Astrovirus (PCR) Stool Campylobacter PCR Stool Cryptosporidium PCR Stl Sh Tox Pr E STEC PCR Stool E coli O157 PCR Stl Enterotoxigenic E PCR Stool EPEC (PCR) Stool EAEC (PCR) Stl E. histolytica PCR Stool Giardia Lamblia PCR Stl P. shigelloides PCR Stool Salmonella PCR Stool Sapovirus (PCR) Stl Shigella/EIEC PCR St Y.enterocolitica PCR Stool Vibrio (PCR) Stl Vibrio cholerae PCR Stl Norovirus GI/GII PCR C. difficile Tox B Gene 04/21/25 11:15 WBC RBC Hgb Hct MCV MCH MCHC RDW Plt Count MPV Immature Gran % (Auto) Neut % (Auto) Lymph % (Auto) [place] % (Auto) Eos % (Auto) Baso % (Auto) Lymph # (Auto) [place] # (Auto) Eos # (Auto) Baso # (Auto) Abs Immat Gran (auto) Absolute Neuts (auto) Absolute Nucleated RBC Nucleated RBC % (auto) Neutrophils % (Manual) Band Neutrophils % Lymphocytes % (Manual) Atypical Lymphs % (Man) Monocytes % (Manual) Eosinophils % (Manual) Promyelocytes % Abs Neuts (Manual) Lymphocytes # (Manual) Atyp Lymphs # (Manual) Monocytes # (Manual) Eosinophils # (Manual) Promyelocytes # Smudge Cells Toxic Granulation Toxic Vacuolation Platelet Estimate Large Platelets Plt Morphology Comment RBC Morphology Polychromasia Schistocytes Hold Purple Top Sodium Potassium Chloride Carbon Dioxide Anion Gap BUN Creatinine Estim Creat Clear Calc Estimated GFR POC Glucose 108 Random Glucose Lactic Acid Lactic Acid F/U @ 2Hr Lactic Acid F/U @ 4Hr Calcium Magnesium Total Bilirubin AST ALT Alkaline Phosphatase Lactate Dehydrogenase Troponin I High Sens Total Protein Albumin TSH Urine Color Urine Appearance Urine pH Ur Specific [place] Urine Protein Urine Glucose (UA) Urine Ketones Urine Blood Urine Nitrite Ur Leukocyte Esterase Urine RBC Urine WBC Ur Squamous Epith Cells Urine Bacteria Hyaline Casts Urine Yeast Stl C. cayetanensis PCR Stool Rotavirus A PCR Stl Adenov PCR Stool Astrovirus (PCR) Stool Campylobacter PCR Stool Cryptosporidium PCR Stl Sh Tox Pr E STEC PCR Stool E coli O157 PCR Stl Enterotoxigenic E PCR Stool EPEC (PCR) Stool EAEC (PCR) Stl E. histolytica PCR Stool Giardia Lamblia PCR Stl P. shigelloides PCR Stool Salmonella PCR Stool Sapovirus (PCR) Stl Shigella/EIEC PCR St Y.enterocolitica PCR Stool Vibrio (PCR) Stl Vibrio cholerae PCR Stl Norovirus GI/GII PCR C. difficile Tox B Gene Airway Heart: junctional Lungs: cta Assessment and Plan Assessment Anesthesia Assessment: Anesthesia Plan Discussed and Chart Reviewed Final Anesthetic Review Family History of Problems with Anesthesia: No History of Problems with Anesthesia: No NPO: Yes ASA Class: IV Final Preanesthetic Review: No Changes in Pt Med Stat, Meds/Allgs Chart Reviewed and Consent Obtained/Reviewed Patient Risk: Intermediate Procedure Risk: Intermediate Anesthetic Plan Anesthetic Plan: MAC: Disposition: Standard PACU
--- NOTE | 2025-04-21 15:10 | ECG_ITS ---
Test Reason : preop Blood Pressure : */* mmHG Vent. Rate : 64 BPM Atrial Rate : 64 BPM P-R Int : 126 ms QRS Dur : 98 ms QT Int : 432 ms P-R-T Axes : 50 30 -23 degrees QTcB Int : 445 ms Sinus rhythm with occasional Premature ventricular complexes Low voltage QRS Incomplete right bundle branch block Cannot rule out Anterior infarct , age undetermined Abnormal ECG When compared with ECG of 20-Apr-2025 21:05, Sinus rhythm has replaced Junctional rhythm Referred By: Brock Lal Electronically Signed By: MARGARITA ALATORRE MD
[2025-04-21] MEDS: Lactated Ringers 1,000 ML 75 ML IVCONT ×2 (15:12→23:17)
--- NOTE | 2025-04-21 15:21 | P.CONCA_ITS ---
History of Present Illness History of Present Illness Date of Service: 04/21/25 Chief complaint: sinus node dysfunction Narrative: 65-year old female with medical history significant for MS, chronic pain, paroxysmal AF, CAD s/p PCI, PE, and urosepsis earlier this presented to [facility] endorsing cp. ACS was ruled out. She was noted to be in AF w/ RVR. Rate control has been difficult due to conversion pauses up to 8 seconds in duration. She has also had episodes of accelerated junctional rhythm on tele. EP has been cs'ed for PPM implantation for tachy-dalia syndrome. Pt denies having undergone EP eval in the past. Denies being told that she needs a pacemaker prior to this hospitalization. Review of Systems 2 Review of Systems: All systems reviewed and noted to be negative except as mentioned above in the HPI. [facility] Past Medical History Medical History (Updated 04/21/25 @ 15:28 by Brock Lal MD) CAD (coronary artery disease) Heart valve regurgitation Gitelman syndrome Polycystic ovarian syndrome Myocardial infarction Sleep apnea Fibromyalgia COPD (chronic obstructive pulmonary disease) Mild asthma Orthostatic hypotension Raynaud's disease Atrial fibrillation Pulmonary embolism Coronary atherosclerosis HTN (hypertension) Neuropathy Multiple sclerosis Chronic pain syndrome PTSD (post-traumatic stress disorder) Opioid dependence Depression Hypercalcemia Elevated cholesterol Type 2 diabetes mellitus Thyroid nodule Hypothyroid Surgical History Surgical History Hx of reduction mammoplasty Hx of tubal ligation Hx of hernia repair History of rectal surgery History of colon resection S/P panniculectomy History of lobectomy of thyroid Hx of hysterectomy Hx of appendectomy Hx of dilation and curettage Hx of heart artery stent Social History Social History Household Members: Children and Other Household Members Other:: son Housing: Apartment Are you a primary pediatric care coordinator to a significant other at home: No Do you presently have visiting nurse or other home services: No Patient Tobacco Use Status: Former Tobacco user Tobacco use type: Cigarette Smoked in Last 30 Days: No Use of substances other than those prescribed or required for medical reasons: No Currently Displaying Signs/Symptoms of Drug Intoxication Withdrawal: No Have you been hit, kicked, punched, or otherwise hurt by someone within the past year? If so, by whom?: No Do you feel safe in your current relationship?: No Is there a partner from a previous relationship who is making you feel unsafe now?: No Are you made to feel afraid or neglected: No Are you DNR?: Yes Advance Directives: No Advance Directives Information Provided: No Do you have a plan to hurt others: No Plan Nutrition Risks: No Nutritional Risk Patient : No service: No Meds Allergies Allergy/AdvReac Type Severity Reaction Status Date / Time diphenhydramine (From Allergy Severe Anaphylaxis Verified 04/21/25 15:02 Benadryl) Penicillins Allergy Severe Anaphylaxis Verified 04/21/25 15:02 Sulfa (Sulfonamide Allergy Severe Anaphylaxis Verified 04/21/25 15:02 Antibiotics) Cephalosporins Allergy Intermediate shortness Verified 04/21/25 15:02 of breath (can take cephalexin) clarithromycin Allergy Intermediate Shortness Verified 04/21/25 15:02 of Breath gabapentin Allergy Intermediate Confusion Verified 04/21/25 15:02 hydrochlorothiazide (From Allergy Intermediate Shortness Verified 04/21/25 15:02 Hyzaar) of Breath levofloxacin (From Levaquin) Allergy Intermediate dizziness/h Verified 04/21/25 15:02 eadache/ulices sea losartan (From Cozaar) Allergy Intermediate Shortness Verified 04/21/25 15:02 of Breath metformin Allergy Intermediate strange Verified 04/21/25 15:02 feeling amoxicillin (From Augmentin) Allergy Unknown Unknown Verified 04/21/25 15:02 clavulanic acid (From Allergy Unknown Unknown Verified 04/21/25 15:02 Augmentin) duloxetine (From Cymbalta) Allergy Unknown Unknown Verified 04/21/25 15:02 fluoxetine Allergy Unknown Unknown Verified 04/21/25 15:02 NSAIDS (Non-Steroidal Allergy Unknown Unknown Verified 04/21/25 15:02 Anti-Inflamma pregabalin AdvReac Intermediate Dizziness Verified 04/21/25 15:02 doxycycline AdvReac Mild Gastrointestinal Verified 04/21/25 15:02 Upset Active Medications: Current Medications Acetaminophen (Acetaminophen 325 Mg Tablet) 975 mg PO Q6H PRN PRN Reason: Pain, Mild 1-3,fever,headache Albuterol Sulfate (Albuterol Sulfate (0.083%) 2.5 Mg/3 Ml Vial.Neb) 2.5 mg INHALE Q6H PRN PRN Reason: Wheezing Amantadine HCl (Amantadine Hcl 100 Mg Capsule) 100 mg PO BID [facility] Last Admin: 04/21/25 09:44 Dose: 100 mg Amphetamine/Dextroamphetamine (Amphetamine Mixed Salts 10 Mg Tablet) 30 mg PO DAILY [facility] Last Admin: 04/21/25 09:46 Dose: 30 mg Aspirin (Aspirin 81 Mg Tab.Chew) 81 mg PO DAILY [facility] Last Admin: 04/21/25 09:44 Dose: 81 mg Atropine Sulfate (Atropine Sulfate 1 Mg/10 Ml Syringe) 1 mg IVPUSH ONCE PRN PRN Reason: bradicardia Bisacodyl (Bisacodyl 10 Mg Supp.Rect) 10 mg DE DAILY PRN On Hold: 04/18/25 17:30 PRN Reason: Constipation Brimonidine Tartrate (Brimonidine Tartrate 0.2% Oph 5 Ml Bottle) 1 drop EYE- BOTH BID [facility] Last Admin: 04/21/25 09:46 Dose: 1 drop Calcium Carbonate (Calcium Carbonate 750 Mg Tab.Chew) 750 mg PO Q4H PRN PRN Reason: Heartburn Diazepam (Diazepam 5 Mg Tablet) 5 mg PO Q8H PRN PRN Reason: Anxiety Last Admin: 04/20/25 18:24 Dose: 5 mg Dorzolamide HCl (Dorzolamide Hcl 2 % Ophth Doris 10 Ml Drpbtl) 1 drop EYE-BOTH BID [facility] Last Admin: 04/21/25 09:46 Dose: 1 drop Glucagon (Glucagon Hcl 1 Mg Vial) 1 mg SUBCUT Q20M PRN PRN Reason: FSBS< 60 & unable to swallow Last Admin: 04/21/25 09:44 Dose: 1 mg Glucose (Glucose Gel 15 Gm Gel..Gram.) 15 gm PO Q15M PRN PRN Reason: fsbs < 50 and able to swallow Last Admin: 04/20/25 06:59 Dose: 15 gm Linezolid (Zyvox/D5w) 600 mg in 300 mls @ 300 mls/hr IV Q12H [facility] Last Infusion: 04/21/25 12:32 Dose: Infused Dextrose/Sodium Chloride (D5ns) 1,000 mls @ 42 mls/hr IVCONT .[id number] [facility] Last Admin: 04/21/25 11:28 Dose: 42 mls/hr Clindamycin Phosphate (Cleocin) 900 mg in 50 mls @ 50 mls/hr IV ONCE ONE Stop: 04/21/25 16:14 Lactated Ringer's (Lr) 1,000 mls @ 75 mls/hr IVCONT .[id number] [facility] Last Admin: 04/21/25 15:12 Dose: 75 mls/hr Insulin Human Lispro (Insulin Lispro 100 Unit/Ml 3 Ml Vial) 0 unit SUBCUT QIDACHS [facility]; Protocol Last Admin: 04/21/25 11:49 Dose: Not Given Ketorolac Tromethamine (Ketorolac Tromethamine 0.5% Op 5 Ml Drops) 1 drop EYE- RIGHT TID [facility] Last Admin: 04/21/25 14:39 Dose: Not Given Latanoprost (Latanoprost 0.005 % Ophth Doris 2.5 Ml Drops) 1 drop EYE-BOTH BEDTIME [facility] Last Admin: 04/20/25 22:08 Dose: Not Given Levothyroxine Sodium (Levothyroxine Sodium 75 Mcg Tablet) 75 mcg PO DAILY@0600 [facility] Last Admin: 04/21/25 06:25 Dose: Not Given Lidocaine (Lidocaine 4 % Patch Adh..Patch) 2 patch TRANSDERMA DAILY [facility]; Protocol Last Admin: 04/21/25 09:47 Dose: 2 patch Magnesium Hydroxide (Milk Of Magnesia 30 Ml Oral.Susp) 30 ml PO BEDTIME PRN PRN Reason: Constipation Melatonin (Melatonin 3 Mg Tablet) 6 mg PO BEDTIME [facility] Last Admin: 04/20/25 22:06 Dose: 6 mg Modafinil (Modafinil 100 Mg Tablet) 100 mg PO BID [facility] Last Admin: 04/21/25 09:45 Dose: 100 mg Montelukast Sodium (Montelukast Sodium 10 Mg Tablet) 10 mg PO DAILY [facility] Last Admin: 04/21/25 09:45 Dose: 10 mg Morphine Sulfate (Morphine Sulfate 4 Mg/Ml Cartridge) 1 mg IVPUSH Q4H PRN; Protocol PRN Reason: Pain, Moderate(Pain Scale 4-6) Last Admin: 04/21/25 02:34 Dose: 1 mg Multivitamins/Vitamin C (Multivitamin Tablet) 1 tab PO DAILY [facility] Last Admin: 04/21/25 09:45 Dose: 1 tab Nystatin (Nystatin Powder 15 Gm Bottle) 1 appl TOPICAL BID [facility]; Protocol Last Admin: 04/21/25 09:51 Dose: 1 appl Omeprazole (Omeprazole 20 Mg Capsule.Dr) 20 mg PO DAILY@0630 [facility] Last Admin: 04/21/25 06:25 Dose: Not Given Ondansetron HCl (Ondansetron Hcl 4 Mg/2 Ml Vial) 4 mg IVPUSH Q8H PRN PRN Reason: Nausea and Vomiting Prednisolone Acetate (Prednisolone Acetate 1 % Oph Susp 5 Ml Drpbtl) 1 drop EYE-RIGHT TID [facility] Last Admin: 04/21/25 14:39 Dose: Not Given Promethazine HCl (Promethazine Hcl 25 Mg Tablet) 25 mg PO Q6H PRN PRN Reason: Nausea Last Admin: 04/21/25 11:28 Dose: 25 mg Sildenafil Citrate (Sildenafil Citrate 20 Mg Tablet) 20 mg PO TID [facility] Last Admin: 04/21/25 14:39 Dose: Not Given Sodium Biphosphate/Sodium Phosphate (Sodium Phosphate,[place]-Dibasic 133 Ml Enema) 118 ml DE BEDTIME PRN PRN Reason: Constipation Sodium Chloride (0.9 % Sodium Chloride Flush 3 Ml Syringe) 3 ml IVFLUSH QSHIFT [facility] Last Admin: 04/21/25 09:50 Dose: 3 ml Thiamine HCl (Thiamine Hcl 100 Mg Tablet) 100 mg PO DAILY [facility] Last Admin: 04/21/25 09:44 Dose: 100 mg Tramadol HCl (Tramadol Hcl 50 Mg Tablet) 50 mg PO Q6H PRN PRN Reason: Pain, Moderate(Pain Scale 4-6) Trazodone HCl (Trazodone Hcl 50 Mg Tablet) 50 mg PO Q6H PRN PRN Reason: Insomnia Home Medications ?Medication ?Instructions ?Recorded ?Confirmed ?Last Taken ?Type amantadine HCl 100 mg capsule 100 mg PO BID 12/13/22 1 06/17/24 Unknown History apixaban 5 mg tablet (Eliquis) 5 mg PO BID 12/13/22 Unknown History brimonidine 0.2 % eye drops 1 drp ophthalmic (eye) BID 12/13/22 04/17/25 Unknown History dorzolamide 2 % eye drops 1 drp ophthalmic (eye) BID 0 12/13/22 04/17/25 Unknown History modafinil 100 mg tablet 100 mg PO BID 12/13/2204/17 Unknown History montelukast 10 mg tablet 10 mg PO DAILY 12/13/2203/03 Unknown History morphine 15 mg immediate release 15 mg PO Q8H PRN Pain 12/13/22 04/17/25 12/18/22 History tablet promethazine 25 mg tablet 25 mg PO Q6H PRN Nausea 12/2904/17/25 Unknown History sildenafil (pulm.hypertension) 20 20 mg PO TID 3 04/17/25 Unknown History mg tablet albuterol sulfate 2.5 mg/3 mL 2.5 mg inhalation Q6H DE N Wheezing 04/17/25 04/17/25 Unknown History (0.083 %) solution for nebulization aspirin 81 mg chewable tablet 81 mg PO DAILY 04/17/25 04/17/25 Unknown History bisacodyl 10 mg rectal suppository 10 mg DE DAILY PRN Constipation 04/17/25 04/17/25 Unknown History camphor-menthol 0.5 %-0.5 % lotion 1 appl topical BID PRN Itching 04/17/25 04/17/25 Unknown History dextroamphetamine-amphetamine 30 30 mg PO DAILY 04/17/25 Unknown History mg tablet (Adderall) dextrose 40 % oral gel (Glucose 15 g PO Q15M PRN fsbs < 50 and 04/17/25 04/17/25 Unknown History Gel) able to swallow diazepam 5 mg tablet 5 mg PO Q8H PRN Anxiety 03/0304/17/25 Unknown History diclofenac sodium 1 % topical gel 2 g topical QID 03/0304/17/25 Unknown History diltiazem HCl 300 mg capsule,24 300 mg PO DAILY 04/17/25 Unknown History hr,extended release dulaglutide 3 mg/0.5 mL 3 mg subcut TU@0900 04/17/25 04/17/25 Unknown History subcutaneous pen injector (Trulicity) dupilumab 300 mg/2 mL subcutaneous 300 mg subcut Q2W 1 06/17/24 04/17/25 Unknown History syringe (Dupixent) empagliflozin 10 mg tablet 10 mg PO DAILY 04/17/2503/03 Unknown History (Jardiance) glucagon 1 mg solution for 1 mg subcut Q20M PRN fsbs b eloq 60 04/17/25 04/17/25 Unknown History injection and unable to swallow insulin glargine 100 unit/mL (3 30 unit subcut BEDTIME 04/17/25 04/17/25 Unknown History mL) subcutaneous pen (Lantus Solostar U-100 Insulin) insulin lispro 100 unit/mL 1 sliding scale dose subcut TIDAC 04/17/25 04/17/25 Unknown History subcutaneous solution (Humalog U-100 Insulin) ketorolac 0.5 % eye drops 1 drp ophthalmic-Right TID 1 06/17/24 04/17/25 Unknown History latanoprost 0.005 % eye drops 1 drp ophthalmic (eye) B EDTIME 04/17/25 04/17/25 Unknown History levothyroxine 75 mcg tablet 75 mcg PO DAILY@0600 04/1704/17/25 Unknown History lidocaine 4 % topical patch 2 patch topical DAILY 03/0304/17/25 Unknown History linezolid 600 mg tablet 600 mg PO BID 04/17/2504/17 Unknown History magnesium hydroxide 400 mg/5 mL 30 ml PO BEDTIME PRN C onstipation 04/17/25 04/17/25 Unknown History oral suspension (Milk of Magnesia) melatonin 5 mg tablet 5 mg PO BEDTIME 04/17/2503/03 Unknown History metoprolol succinate 50 mg 50 mg PO DAILY 04/17/2503/03 Unknown History tablet,extended release 24 hr multivitamin with minerals 1 tab PO DAILY 04/17/2503/03 Unknown History nystatin 100,000 unit/gram topical 1 appl topical BID 04/17/25 04/17/25 Unknown History powder pantoprazole 20 mg tablet,delayed 20 mg PO DAILY@0630 04/17/25 04/17/25 Unknown History release prednisolone acetate 1 % eye 1 drp ophthalmic-Right TI D 04/17/25 04/17/25 Unknown History drops,suspension sodium chloride 7 % for 1 inh inhalation BID 5 04/17/25 Unknown History nebulization sodium phosphates 19 gram-7 118 ml DE BEDTIME PRN Cons tipation 04/17/25 04/17/25 Unknown History gram/118 mL enema (Fleet Enema) spironolactone 25 mg tablet 25 mg PO DAILY 04/17/25 Unknown History thiamine HCl (vitamin B1) 100 mg 100 mg PO DAILY 04/1704/17/25 Unknown History tablet torsemide 20 mg tablet 40 mg PO DAILY 04/17/2503/03 Unknown History trazodone 50 mg tablet 50 mg PO Q6H PRN Insomnia 04/17/25 Unknown History Physical Exam 2 Exam: Exam: General: NAD Eyes: anicteric Neck: supple Heart: regular, bradycardic Lungs: nonlabored breathing Exts: warm Neuro: no gross focal deficits Psych: appears anxious Vital Signs: Vital Signs: Last Vital Signs Temp 97.8 F 04/21/25 14:16 Pulse 62 04/21/25 14:16 Resp 18 04/21/25 14:16 BP 104/49 L 04/21/25 14:16 Pulse Ox 98 04/21/25 14:16 O2 Del Method Room Air 04/21/25 14:16 BMI result Body Mass Index 25.5 Objective Labs and Meds 04/20/25 06:42 04/20/25 06:42 Lab results: Laboratory Results - last 24 hr 04/20/25 04/20/25 04/20/25 06:42 21:23 22:07 POC Glucose 88 Lactate Dehydrogenase 224 H Troponin I High Sens 8.5 TSH 3.55 04/20/25 04/21/25 04/21/25 23:16 07:14 11:15 POC Glucose 64 108 Lactate Dehydrogenase Troponin I High Sens 10.0 TSH Assessment and Plan (1) Atrial fibrillation with RVR: Status: Acute (2) Tachy-dalia syndrome: Status: Acute (3) PREM (acute kidney injury): Status: Acute (4) CAD (coronary artery disease): Qualifiers: Coronary Disease-Associated Artery/Lesion type: [place] artery Status: Acute Plan EKG, tele, labs, and TTE reviewed. I discussed the risks, benefits, and alternatives of DC PPM implantation w/ the pt and her son. We mutually decided to proceed forward with the procedure. 41 mins spent in the care of this pt. CPT 04313. Procedures Date of Service Date of Service: 04/21/25
--- NOTE | 2025-04-21 18:24 | W.PM.OPN ---
Operative Note Operative Note Date of Service: 04/21/25 Narrative: Indication: Tachy-dalia syndrome Paroxysmal atrial fibrillation Summary: 1. Implantation of single chamber Burden pacemaker (CPT 32951) Narrative: Patient presented to the EP lab in a fasting, nonsedated state after written informed consent was verified. The procedure was performed under MAC. 900 mg IV Clindamycin was administered prior to skin incision. The patient was prepped and draped in the usual sterile manner. A 1-inch incision was made in the left subclavicular region. A pacemaker pocket was created using a combination of electrocautery and blunt dissection. Two separate subclavian vein accesses were obtained with a micropuncture needle and wire. Two 6-Fr sheaths were advanced over the guidewires. The RV pacing lead was advanced to the mid septal region. The helix was extended in the usual manner. Pacing parameters (injury, capture threshold, impedance, and sensing) were checked to be within the optimal range. Adequate slack was confirmed on the lead. The 6-Fr sheath was slit. The stylet was removed. The lead was secured to the underlying pectoralis muscle using two 0-Ethibond sutures. The atrial pacing lead was advanced to the RAA via the remaining 6-Fr sheath using a combination of straight and curved stylets. The helix was extended in the usual manner. Multiple spots (RAA, lateral wall, posterolateral wall) in the RA were checked. However, given her atrial myopathy and severe TR the atrial lead kept dislodging or the pacing parameters were undesirable. After multiple attempts involving different curved stylets and a new pacing lead I ultimately elected to abandon atrial lead placement and proceed with ventricular, single chamber pacing. The atrial lead was removed. The remaining 6-Fr sheath was removed. The ventricular lead was rechecked and its pacing parameters confirmed to be excellent. The pacemaker generator was brought to the field. The lead was inserted into the respective port of the single chamber generator. The lead was secured in the header using the provided torque wrench. The pocket was flushed with an antibiotic irrigant. Any bleeders within the pocket were controlled with electrocautery. The lead was wrapped underneath the new generator and the pacemaker was placed back within the pocket. A TYRX antibiotic envelope was placed within the pocket. The pocket was closed in three layers using 2-0 followed by 4-0 V-Loc. Dermabond was applied over the incision site. Gauze and tegaderm dressing were then placed over the incision site. A pressure dressing was then applied over the pocket. Patient was then transported back to recovery in a stable condition. Recommendations: 1. CXR and EKG now. 2. Device interrogation in am. 3. Resume Eliquis on 04/23/25. 4. Wear left arm sling continuously for 24 hours. Then wear it only when sleeping for 2 weeks. 5. No raising left arm above shoulder level or reaching behind the back with left arm for 4 weeks. No driving for 2 weeks. 6. Keep chest incision site dry for 7 days. 7. Remove the gauze and Tegaderm dressing after 3 days. 8. Follow up in clinic in 1-2 weeks for incision site check. Procedure start: 4:20 PM Procedure end: 6:18 PM
[2025-04-21 20:28] LABS: Glucose, Whole Blood 60 mg/dL (60-115)
[2025-04-22] VITALS (7 sets, daily range): BP systolic 111–125; BP diastolic 53–63; PULSE 63–71; RESP 16–18; TEMP 36.2–36.6; O2SAT 95–99; BMI 27.1; BMI 25.5
--- NOTE | 2025-04-22 | ECG_ITS ---
Test Reason : rhythm check Blood Pressure : */* mmHG Vent. Rate : 64 BPM Atrial Rate : 64 BPM P-R Int : 126 ms QRS Dur : 98 ms QT Int : 566 ms P-R-T Axes : -4 33 -3 degrees QTcB Int : 583 ms Baseline wander Normal sinus rhythm Low voltage QRS Incomplete right bundle branch block Cannot rule out Anterior infarct , age undetermined Prolonged QT Abnormal ECG When compared with ECG of 21-Apr-2025 18:44, No significant changes seen Referred By: Heather Cesar Electronically Signed By: MARGARITA ALATORRE MD
[2025-04-22] MEDS: 0.9 % Sodium Chloride Flush 3 ML SYRINGE IVFLUSH (00:13)
[2025-04-22 00:54] LABS: Glucose, Whole Blood 128 mg/dL (60-115)
--- NOTE | 2025-04-22 07:14 | P.PNIM_ITS ---
Subjective Subjective Date of Service: 04/22/25 Physical Exam 2 Vital Signs: Vital Signs: Last Vital Signs Temp 97.5 F 04/22/25 03:03 Pulse 63 04/22/25 03:03 Resp 16 04/22/25 04:47 BP 123/63 04/22/25 03:03 Pulse Ox 98 04/22/25 03:03 O2 Del Method Room Air 04/22/25 03:03 BMI result Body Mass Index 25.5 Objective Data Active Medications Acetaminophen (Acetaminophen 325 Mg Tablet) 975 mg PO Q6H PRN PRN Reason: Pain, Mild 1-3,fever,headache Albuterol Sulfate (Albuterol Sulfate (0.083%) 2.5 Mg/3 Ml Vial.Neb) 2.5 mg INHALE Q6H PRN PRN Reason: Wheezing Amantadine HCl (Amantadine Hcl 100 Mg Capsule) 100 mg PO BID [facility] Last Admin: 04/21/25 21:01 Dose: 100 mg Documented By: CARIN Amphetamine/Dextroamphetamine (Amphetamine Mixed Salts 10 Mg Tablet) 30 mg PO DAILY [facility] Last Admin: 04/21/25 09:46 Dose: 30 mg Documented By: HANY Aspirin (Aspirin 81 Mg Tab.Chew) 81 mg PO DAILY [facility] Last Admin: 04/21/25 09:44 Dose: 81 mg Documented By: HANY Atropine Sulfate (Atropine Sulfate 1 Mg/10 Ml Syringe) 1 mg IVPUSH ONCE PRN PRN Reason: bradicardia Bisacodyl (Bisacodyl 10 Mg Supp.Rect) 10 mg WA DAILY PRN On Hold: 04/18/25 17:30 PRN Reason: Constipation Brimonidine Tartrate (Brimonidine Tartrate 0.2% Oph 5 Ml Bottle) 1 drop EYE- BOTH BID [facility] Last Admin: 04/21/25 23:12 Dose: Not Given Documented By: CARIN Non-Admin Reason: Patient Refused Calcium Carbonate (Calcium Carbonate 750 Mg Tab.Chew) 750 mg PO Q4H PRN PRN Reason: Heartburn Diazepam (Diazepam 5 Mg Tablet) 5 mg PO Q8H PRN PRN Reason: Anxiety Last Admin: 04/20/25 18:24 Dose: 5 mg Documented By: HARVEY Dorzolamide HCl (Dorzolamide Hcl 2 % Ophth Doris 10 Ml Drpbtl) 1 drop EYE-BOTH BID [facility] Last Admin: 04/21/25 23:13 Dose: Not Given Documented By: CARIN Non-Admin Reason: Patient Refused Glucagon (Glucagon Hcl 1 Mg Vial) 1 mg SUBCUT Q20M PRN PRN Reason: FSBS< 60 & unable to swallow Last Admin: 04/21/25 09:44 Dose: 1 mg Documented By: HANY Glucose (Glucose Gel 15 Gm Gel..Gram.) 15 gm PO Q15M PRN PRN Reason: fsbs < 50 and able to swallow Last Admin: 04/20/25 06:59 Dose: 15 gm Documented By: CHAD Linezolid (Zyvox/D5w) 600 mg in 300 mls @ 300 mls/hr IV Q12H [facility] Last Infusion: 04/22/25 00:18 Dose: Infused Documented By: CARIN Dextrose/Sodium Chloride (D5ns) 1,000 mls @ 42 mls/hr IVCONT .[id number] [facility] Last Infusion: 04/21/25 14:00 Dose: 0 mls/hr Documented By: HANY Lactated Ringer's (Lr) 1,000 mls @ 75 mls/hr IVCONT .[id number] [facility] Last Admin: 04/21/25 23:17 Dose: 75 mls/hr Documented By: CARIN Insulin Human Lispro (Insulin Lispro 100 Unit/Ml 3 Ml Vial) 0 unit SUBCUT QIDACHS [facility]; Protocol Last Admin: 04/21/25 21:10 Dose: Not Given Documented By: CARIN Non-Admin Reason: No Insulin Coverage Ketorolac Tromethamine (Ketorolac Tromethamine 0.5% Op 5 Ml Drops) 1 drop EYE- RIGHT TID [facility] Last Admin: 04/21/25 23:13 Dose: Not Given Documented By: CARIN Non-Admin Reason: Patient Refused Latanoprost (Latanoprost 0.005 % Ophth Doris 2.5 Ml Drops) 1 drop EYE-BOTH BEDTIME [facility] Last Admin: 04/21/25 23:16 Dose: Not Given Documented By: CARIN Non-Admin Reason: Patient Refused Levothyroxine Sodium (Levothyroxine Sodium 75 Mcg Tablet) 75 mcg PO DAILY@0600 [facility] Last Admin: 04/22/25 06:04 Dose: 75 mcg Documented By: CARIN Lidocaine (Lidocaine 4 % Patch Adh..Patch) 2 patch TRANSDERMA DAILY [facility]; Protocol Last Admin: 04/21/25 09:47 Dose: 2 patch Documented By: HANY Magnesium Hydroxide (Milk Of Magnesia 30 Ml Oral.Susp) 30 ml PO BEDTIME PRN PRN Reason: Constipation Melatonin (Melatonin 3 Mg Tablet) 6 mg PO BEDTIME [facility] Last Admin: 04/21/25 21:01 Dose: 6 mg Documented By: CARIN Modafinil (Modafinil 100 Mg Tablet) 100 mg PO BID [facility] Last Admin: 04/21/25 21:00 Dose: 100 mg Documented By: CARIN Montelukast Sodium (Montelukast Sodium 10 Mg Tablet) 10 mg PO DAILY [facility] Last Admin: 04/21/25 09:45 Dose: 10 mg Documented By: HANY Morphine Sulfate (Morphine Sulfate 4 Mg/Ml Cartridge) 1 mg IVPUSH Q4H PRN; Protocol PRN Reason: Pain, Moderate(Pain Scale 4-6) Last Admin: 04/22/25 03:42 Dose: 1 mg Documented By: CARIN Multivitamins/Vitamin C (Multivitamin Tablet) 1 tab PO DAILY [facility] Last Admin: 04/21/25 09:45 Dose: 1 tab Documented By: HANY Naloxone HCl (Naloxone Hcl 0.4 Mg/Ml Vial) 0.04 mg IVPUSH Q5M PRN PRN Reason: Excessive sedation or RR < 8 Nystatin (Nystatin Powder 15 Gm Bottle) 1 appl TOPICAL BID [facility]; Protocol Last Admin: 04/21/25 21:45 Dose: 1 appl Documented By: CARIN Omeprazole (Omeprazole 20 Mg Capsule.) 20 mg PO DAILY@0630 [facility] Last Admin: 04/22/25 06:08 Dose: Not Given Documented By: CARIN Non-Admin Reason: Patient Refused Ondansetron HCl (Ondansetron Hcl 4 Mg/2 Ml Vial) 4 mg IVPUSH Q8H PRN PRN Reason: Nausea and Vomiting Last Admin: 04/22/25 03:47 Dose: 4 mg Documented By: CARIN Prednisolone Acetate (Prednisolone Acetate 1 % Oph Susp 5 Ml Drpbtl) 1 drop EYE-RIGHT TID [facility] Last Admin: 04/21/25 23:13 Dose: Not Given Documented By: CARIN Non-Admin Reason: Patient Refused Promethazine HCl (Promethazine Hcl 25 Mg Tablet) 25 mg PO Q6H PRN PRN Reason: Nausea Last Admin: 04/21/25 23:24 Dose: 25 mg Documented By: CARIN Sildenafil Citrate (Sildenafil Citrate 20 Mg Tablet) 20 mg PO TID [facility] Last Admin: 04/21/25 21:00 Dose: 20 mg Documented By: CARIN Sodium Biphosphate/Sodium Phosphate (Sodium Phosphate,Eddy-Dibasic 133 Ml Enema) 118 ml WA BEDTIME PRN PRN Reason: Constipation Sodium Chloride (0.9 % Sodium Chloride Flush 3 Ml Syringe) 3 ml IVFLUSH QSHIFT [facility] Last Admin: 04/22/25 00:13 Dose: 3 ml Documented By: CARIN Thiamine HCl (Thiamine Hcl 100 Mg Tablet) 100 mg PO DAILY [facility] Last Admin: 04/21/25 09:44 Dose: 100 mg Documented By: HANY Tramadol HCl (Tramadol Hcl 50 Mg Tablet) 50 mg PO Q6H PRN PRN Reason: Pain, Moderate(Pain Scale 4-6) Trazodone HCl (Trazodone Hcl 50 Mg Tablet) 50 mg PO Q6H PRN PRN Reason: Insomnia Labs 04/20/25 06:42 04/20/25 06:42 Labs: Laboratory Results - last 24 hr 04/21/25 04/21/25 04/21/25 07:14 11:15 15:13 POC Glucose 64 108 Blood Type A Positive Antibody Screen NEGATIVE 04/21/25 04/22/25 20:15 00:47 POC Glucose 60 128 H Blood Type Antibody Screen Quality Stroke Does the patient have a stroke diagnosis?: No VTE Prior VTE?: Yes VTE Risk Level:: Medical - moderate - high VTE Device Contraindication: Treatment Not Indicated VTE Drug Contraindication: N/A - Med Ordered
--- NOTE | 2025-04-22 07:29 | PC.NURSE ---
Pt arrived from PACU at approx 1930. Arm sling in place. Dressing to pacer site C/D/I. Pt educated on post surgery precautions. Pt laying supine, but reports she is very uncomfortable on her back. This RN advised pt to lay supine as to not displace pacemaker. Pillows placed under side to offload. Pt was later found sleeping on her right side and was that way most of the night.
[2025-04-22 07:37] LABS: Glucose, Whole Blood 70 mg/dL (60-115)
--- NOTE | 2025-04-22 08:15 | HO.POSTANES ---
Post Anesthesia Evaluation Post Anesthesia Evaluation Date of Service: 04/22/25 Vital Signs: Vital Signs Temp Pulse Resp BP Pulse Ox O2 Del Method 04/22/25 07:50 97.1 F 66 18 118/57 L 98 Room Air 04/22/25 04:47 16 04/22/25 04:12 16 04/22/25 03:42 18 04/22/25 03:03 97.5 F 63 16 123/63 98 Room Air 04/21/25 23:11 97.4 F 62 18 108/58 L 100 Room Air 04/21/25 21:32 16 04/21/25 21:02 16 04/21/25 20:55 69 16 128/69 96 Room Air Anesthesia: TIVA Mental Status: Awake Pain Control: Satisfactory Nausea/Vomiting: None Hydration: Adequate Anesthesia-Related Issues: No Anes. Related Issues
[2025-04-22] MEDS: Amphetamine Mixed Salts 10 MG TABLET 30 MG PO (09:17)
[2025-04-22] MEDS: Brimonidine Tartrate 0.2% Oph 5 ML BOTTLE 1 DROP EYE-BOTH (09:18)
[2025-04-22] MEDS: Dorzolamide HCl 2 % Ophth Sol 10 ML DRPBTL 1 DROP EYE-BOTH (09:18)
[2025-04-22] MEDS: Lidocaine 4 % Patch ADH..PATCH 2 PATCH TRANSDERMA (09:18)
--- NOTE | 2025-04-22 11:36 | MHC.CM.PN ---
Addendum entered by Romi Hobson 04/22/25 15:55: auth obtained, pt. to go to [facility] today via [facility]. Original Note: Second IMM given to pt. she has decided that she will go to [facility] because her helpers at home are not available for a few days. [facility] is pursuing auth.
[2025-04-22 11:37] LABS: Glucose, Whole Blood 138 mg/dL (60-115)
--- NOTE | 2025-04-22 11:48 | MHC.CLN ---
CONSULT PT WITH INCREASED NUTRITION RISK R/T PRESSURE INJURY DIET RX: 1800DM RECOMMEND ADDING ENSURE MAX BID TO PROMOTE WOUND HEALING SUPP TO PROVIDE 300KCALS, 60G PROTEIN MONITOR PO INTAKE AND ENCOURAGE SUPPLEMENTS SEE FULL ASSESSMENT
--- NOTE | 2025-04-22 15:49 | PM.DS ---
DS: Providers Provider Date of Service: 04/22/25 Date of admission: 04/18/25 02:58 Date of discharge: 04/22/25 Primary care physician: JANAK Cohen Consults: 04/19/25 04:52 Consult to Wound Care Routine Consulting Provider: [facility] Reason for consultation: ? old pressure injury to coccyx 04/19/25 19:36 Consult to Cardiology Routine Consulting Provider: [facility] Reason for consultation: Afib w RvR, hypotension 04/20/25 17:45 Consult to Wound Care Routine Consulting Provider: [facility] W[facility] Management Reason for consultation: Decubitus ulcers DS: Diagnosis Discharge Diagnosis (1) Tachy-dalia syndrome: Status: Acute DS: Summary Hospital Course Hospital Course: Brief complicated stay in the past 1 month prior to this hospitalization: Patient is a 65-year-old female with a past medical history significant for multiple sclerosis with gradually progressive decline in his functional status with spasm disorder, CAD with stenting of the LAD in 2012 , SDH, PREM on CKD, PE diagnose in 2018 with settled thrombus on Eliquis, CVA, type 2 diabetes and chronic pain disorder with a recent admission at [facility] for 1 month long for sepsis , discharged 3 days prior to this admission 04/16/2025. She was just discharged to a local nursing home facility and less than 24 hours, she was admitted to [facility] for possible placement as she did not like the treatment that she was receiving at the SNF. Multiple code status discussions were being held by ED and the son and the patient who were going back and forth between full code, DNR DNI, RN CARE TRANSITION, hospice, back to DNR DNI. During that placement talk, she started complaining about chest pain, and extensive ACS workup was done which was unremarkable and deemed secondary to costochondritis. Below is a brief hospital discharge summary. 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 She follows with a cosmetology instructor in [place]. She is currently on rate lowering medication with Cardizem and metoprolol. She was recently admitted to [facility] with a very long hospitalization related to urosepsis. Details are not available. Patient was then discharged to local nursing home facility and was brought to the emergency room at [place] [facility] with symptoms of chest pain. She has chronic pain syndrome related to her multiple sclerosis. While in the emergency room she was being observed because of the chest pain her troponins were negative EKGs not show any significant changes. Throughout the hospitalization, she continued to complain of multiple elephant like chest pain 03/18 and repeat workup and troponins were negative. Vitals were unremarkable, although she tends to always run low with SBP in the 90s to 100s. However then she developed chest pain again with atrial fibrillation rapid ventricular response and was decided to be admitted with noted leukocytosis with possible UTI again in urosepsis. Blood pressures remained soft with a blood pressure in upper 90s to 110 range. It has led to withholding of her usual rate control medications. However she went again into tachycardia AFib with RVR, necessitating multiple doses of Cardizem, Lopressor. Then she flipped into sinus pauses, junctional pauses. Echocardiogram shows severe tricuspid regurgitation and moderately severe mitral regurgitation biatrial enlargement. Patient remained asymptomatic during these episodes. Rate control has been difficult due to conversion pauses up to 8 seconds in duration. She has also had episodes of accelerated junctional rhythm on tele, most likely deemed due to structural heart disease given age and multiple medical comorbidities as pointed above. Given above clinical condition, cardiology was consulted, underwent pacemaker placement on 04/21/2025. She is to resume Eliquis from tomorrow 04/23/2025. Can resume other home medications as noted below. EKG thus far sinus rhythm x2 since pacemaker placement. Device was interrogated and deemed safe. She will need to follow up with her outpatient cosmetology instructor for further medical management. She needs to follow up with EP Cardiology in 1-2 weeks for incision site check. Instructions for her from EP cardiology: 3. Resume Eliquis on 04/23/25. 4. Wear left arm sling continuously for 24 hours. Then wear it only when sleeping for 2 weeks. 5. No raising left arm above shoulder level or reaching behind the back with left arm for 4 weeks. No driving for 2 weeks. 6. Keep chest incision site dry for 7 days. 7. Remove the gauze and Tegaderm dressing after 3 days. 8. Follow up in clinic in 1-2 weeks for incision site check. # Sepsis secondary to UTI based on prior records it appears that she had Enterococcus only sensitive to linezolid Patient repeatedly appears to have treatment resistant Enterococcus Since the patient is already on linezolid prior to admission, the repeat cultures have thus far been negative No overt signs of bacteremia noted She completed a full course of linezolid during this admission and does not need any further antibiotics. # History of SDH Based on records from [facility] and [facility], patient appears to have had SDH, for which Eliquis was held briefly and resumed prior to discharge from there. Continuing to monitor neurological status. rESUME POST ppm # PREM, likely secondary to dehydration, diuretics, resolved with holding diuretics and improved to her baseline. BNP was monitored and is unremarkable at this time. # Type 2 diabetes - diabetic diet - sliding scale insulin - Lantus - Hold Jardiance indefinitely - given UTI - despite risks vs benefits-defer to PCP. #Hypothyroid - levothyroxine #Chronic decubitus ulcers secondary to her bed-bound status # frailty in elderly # adult failure to thrive # protein calorie malnutrition moderate Coccyx 04/21/25 Etiology: Stage 2 Pressure Injury - Previously noted for DTI per pt and family. ??Present on Admission Measurements: 0.3cm x 0.4cm x 0.1cm Coccyx - Off Load Pressure with Q2 hr turns and use of pillows - Cleanse with PH balance spray or wipes, pat dry. Apply thin layer of Triad to wound bed. Do not remove all of paste between applications as this may cause further skin damage. Cover with foam dressing to aid in off loading and protection from friction. Change every 3 days and PRN. Advised her to take protein supplementation t.i.d.-patient would like chocolate flavored protein supplementation. DNR/DNI VTE prophylaxis: Eliquis (held on 04/21/2025 for PPM in placement, will be resumed from tomorrow 04/23/2025) Prognostication- Multiple code status discussions were held throughout the hospitalization-and patient and son are aware of her guarded clinical prognosis and her overall clinical decline and inability to care for self and multiple hospitalizations, and explained to the patient's son that with repeated admissions, prolonged hospitalizations, her needing ICU level of care at [facility] and [facility], this increases her morbidity and mortality. Son was thankful and aware of the complicated clinical status. Patient and son were educated by multiple medical teams and provider regarding need for short-term rehab which they have been adamantly refusing since admission. Given that the family's unable to care for her at home and do not have a bed ready, patient is being discharged to a short-term rehab. Patient high-risk of readmission. Time spent discussing smoking cessation with patient: more than 10 minutes Status at Discharge Functional status at discharge: bed bound Overall status at discharge: patient is progressing back to baseline Time Attestation Discharge Coordination Time (in mins): 75 mins- multiple discussions with pt, pt's son, subspeciality support and coordinating DC planning with CM and bedside RNs and multiple phone calls were made Quality: Safe Use of Opioids Does Pt have an Active Cancer Diagnosis on the Problem List?: No Quality: Stroke Does the patient have a stroke diagnosis?: No Reason for No Anti-thrombotic at DC: N/A - Med Ordered Physical Exam Exam: Exam: General: AOx3, very sick frail looking appears to be mildly uncomfortable, states she is aware that she is nearing the end . She states she is sinking into the bed, and that the bed is and golfing her anything her-I explained jokingly that it is unlikely. Resp: Rhonchi and rales bilateral, mild wheezing CVS: tachycardia GI: [place], diffusely tender ,no guarding no rigidity Neuro: Motor grossly intact bilaterally Coccyx 04/21/25 Etiology: Stage 2 Pressure Injury - Previously noted for DTI per pt and family. ??Present on Admission Measurements: 0.3cm x 0.4cm x 0.1cm Wound Bed: pink moist wound bed Vital Signs: Vital Signs: Last Vital Signs Temp 97.7 F 04/22/25 15:47 Pulse 71 04/22/25 15:47 Resp 18 04/22/25 15:47 BP 125/58 L 04/22/25 15:47 Pulse Ox 99 04/22/25 15:47 O2 Del Method Room Air 11/14/25 15:47 BMI result Body Mass Index 25.5 DS: Data Data Completed and Pending Labs on day of discharge: Laboratory Results - last 24 hr 04/21/25 04/21/25 04/22/25 15:13 20:15 00:47 POC Glucose 60 128 H Blood Type A Positive Antibody Screen NEGATIVE 04/22/25 04/22/25 07:20 11:29 POC Glucose 70 138 H Blood Type Antibody Screen Preliminary micro results at discharge 04/18/25 04:28 Blood Culture - Preliminary Blood - Venous No growth after 48 hours. 04/18/25 04:28 Blood Culture - Preliminary Blood - Venous No growth after 48 hours. Discharge Plan Discharge Anticipated Discharge Date/Time: 04/22/25 16:44 Patient Disposition: [facility] Discharge Diagnosis: Tachy-dalia syndrome status post permanent pacemaker Referrals: Kev Carr [Outside] - 1 Week Physician,Kecia Hernandez [Physician, Medical] - 1 Week Discharge Medications: New tramadol 50 mg Tablet 50 mg PO Q6H PRN (Reason: Pain, Moderate(Pain Scale 4-6)) 10 Days Qty: 14 0RF acetaminophen 325 mg Tablet 975 mg PO Q6H PRN (Reason: Pain, Mild 1-3,Fever,Headache) 30 Days Qty: 90 0RF naloxone 0.4 mg/mL Solution 0.04 mg IVPUSH Q5M PRN (Reason: Excessive sedation or RR < 8) 30 Days Qty: 10 2RF Continued amantadine HCl 100 mg capsule 100 mg PO BID promethazine 25 mg tablet 25 mg PO Q6H PRN (Reason: Nausea) brimonidine 0.2 % drops 1 drp ophthalmic (eye) BID montelukast 10 mg tablet 10 mg PO DAILY dorzolamide 2 % drops 1 drp ophthalmic (eye) BID modafinil 100 mg tablet 100 mg PO BID sildenafil (pulm.hypertension) 20 mg tablet 20 mg PO TID spironolactone 25 mg Tablet 25 mg PO DAILY latanoprost 0.005 % Drops 1 drp OPHTHALMIC (EYE) BEDTIME Dupixent Syringe 300 mg/2 mL Syringe 300 mg SUBCUT Q2W levothyroxine 75 mcg Tablet 75 mcg PO DAILY@0600 torsemide 20 mg Tablet 40 mg PO DAILY lidocaine 4 % Adhesive Patch,Medicated 2 patch TOPICAL DAILY Rx Instructions: apply to back albuterol sulfate 2.5 mg /3 mL (0.083 %) Solution For Nebulization 2.5 mg INHALATION Q6H PRN (Reason: Wheezing) trazodone 50 mg Tablet 50 mg PO Q6H PRN (Reason: Insomnia) dextrose [Glucose Gel] 40 % Gel 15 g PO Q15M PRN (Reason: fsbs < 50 and able to swallow) Rx Instructions: until symptoms of low blood sugar are controlled thiamine HCl (vitamin B1) 100 mg Tablet 100 mg PO DAILY diltiazem HCl 300 mg Capsule,Extended Release 24 Hr 300 mg PO DAILY pantoprazole 20 mg Tablet,Delayed Release (Dr/Ec) 20 mg PO DAILY@0630 ketorolac 0.5 % drops 1 drp ophthalmic-Right TID dextroamphetamine-amphetamine [Adderall] 30 mg Tablet 30 mg PO DAILY prednisolone acetate 1 % drops,suspension 1 drp ophthalmic-Right TID magnesium hydroxide [Milk of Magnesia] 400 mg/5 mL Suspension 30 ml PO BEDTIME PRN (Reason: Constipation) bisacodyl 10 mg Suppository 10 mg WA DAILY PRN (Reason: Constipation) Fleet Enema 19-7 gram/118 mL Enema 118 ml WA BEDTIME PRN (Reason: Constipation) camphor-menthol 0.5-0.5 % Lotion 1 appl TOPICAL BID PRN (Reason: Itching) aspirin 81 mg Tablet,Chewable 81 mg PO DAILY nystatin 100,000 unit/gram Powder 1 appl TOPICAL BID insulin lispro [Humalog U-100 Insulin] 100 unit/mL Solution 1 sliding scale dose SUBCUT TIDAC Protocol: Insulin Correction Scale Less than or equal to 110 ---- Give (units): 0 111 to 150 Give (units): 0 151 to 200 Give (units): 2 201 to 250 Give (units): 4 251 to 300 Give (units): 6 301 to 350 Give (units): 8 Greater than 350 Give (units): 10 Call MD if Blood Glucose > : 350 GlucaGen 1 mg Recon Soln 1 mg SUBCUT Q20M PRN (Reason: fsbs beloq 60 and unable to swallow) Rx Instructions: until target blood sugar attained Multi-Daily W/Minerals Tablet 1 tab PO DAILY diazepam 5 mg tablet 5 mg PO Q8H PRN (Reason: Anxiety) sodium chloride 7 % Solution For Nebulization 1 inh INHALATION BID insulin glargine [Lantus Solostar U-100 Insulin] 100 unit/mL (3 mL) Insulin Pen 30 unit SUBCUT BEDTIME diclofenac sodium 1 % Gel 2 g TOPICAL QID Rx Instructions: apply to single elbow, wrist or hand; for hand includes palm/fingers/back of hand melatonin 5 mg Tablet 5 mg PO BEDTIME Trulicity 3 mg/0.5 mL Pen Injector 3 mg SUBCUT TU@0900 morphine 15 mg tablet 15 mg PO Q8H PRN (Reason: Pain) 10 Days Qty: 10 0RF Held Eliquis 5 mg tablet 5 mg PO BID Hold Instructions: Resume on 04/23/25. Resume from a.m. tomorrow metoprolol succinate 50 mg Tablet Extended Release 24 Hr 50 mg PO DAILY Hold Instructions: Resume on 04/25/25. Resume based on clinical status at [facility] Jardiance 10 mg Tablet 10 mg PO DAILY Hold Instructions: Resume on 04/28/25. Resume after PCP follow-up as she is prone to recurrent UTIs Discontinued linezolid 600 mg Tablet 600 mg PO BID Rx Instructions: 04/15/25 through 04/19/25 Discharge Orders: Discharge Order (Routine); Ordered 04/22/25 Ordered By: Heather Cesar Diet: Low salt diet Activity on Discharge: Rest with bed elevated Stand Alone Forms: Patient Portal Discharge page Print Language: Monegasque Activity Restrictions/Additional Instructions: Post-pacemaker instructions: 1. Wear left arm sling continuously for 24 hours. Then wear it only when sleeping for 2 weeks. 2. No raising left arm above shoulder level or reaching behind the back with left arm for 4 weeks. No driving for 2 weeks. 3. Keep chest incision site dry for 7 days. 4. Remove the gauze and Tegaderm dressing after 3 days. 5. Follow up in clinic in 1-2 weeks for incision site check. Recommendations: 1. Turn and Reposition every 2 hours and as needed for patient comfort. Use pillows or wedges to support off loading positions. 2. Off Load all bony prominences with use of pillows and heel boots if needed. Apply Preventative foams where needed. 3. Monitor for incontinence and moisture control, use barrier creams when needed for prevention and treatment. 4. Provide adequate and supplemental nutrition. 5. Order low air loss mattress. 6. When applicable maintain blood glucose levels per Providers order. Coccyx - Off Load Pressure with Q2 hr turns and use of pillows - Cleanse with PH balance spray or wipes, pat dry. Apply thin layer of Triad to wound bed. Do not remove all of paste between applications as this may cause further skin damage. Cover with foam dressing to aid in off loading and protection from friction. Change every 3 days and PRN. Nutrition CONSULT: PT WITH INCREASED NUTRITION RISK R/T PRESSURE INJURY DIET RX: 1800DM RECOMMEND ADDING ENSURE MAX BID TO PROMOTE WOUND HEALING SUPP TO PROVIDE 300KCALS, 60G PROTEIN MONITOR PO INTAKE AND ENCOURAGE SUPPLEMENTS SEE FULL ASSESSMENT Care Plan Goals: Please follow-up with PCP within a week of discharge Please follow-up with cardiology outpatient within a week or 2 Please follow-up with EP Cardiology for wound care pacemaker site check Please follow-up with wound care if needed Please follow up with nutrition Goals of care/palliative care recommended-multiple code status discussions were had with the patient and her son and his partner. I have nearly spent more than 3 hours every other day trying to explain ongoing clinical care to the patient's family giving reassurances and updates. Patient advised to follow-up with Patient would ultimately to go home with [facility]NA if possible-family unable to take care for her until next week Health Concerns: See above Plan of Treatment: See above Assessment: See above
[2025-04-22 16:51] LABS: Glucose, Whole Blood 204 mg/dL (60-115)
== END 2025-04-22 17:20 | disposition skilled nursing facility (03) | DRG 854 ==
LOC: HO.ED 04-17 20:26 → HO.EDOVER 04-18 03:02 → HO.IMC 04-18 13:42
PROVIDERS: Internal Medicine; Internal Medicine Cardiovascular Disease; Physician Assistant; Student in an Organized Health Care Education/Training Program; Admitting Provider Physician Assistant; Emergency Provider Emergency Medicine; Visit Provider Student in an Organized Health Care Education/Training Program
PROC: 0JH604Z Insertion of Pacemaker, Single Chamber into Chest Subcutaneous Tissue and Fascia, Open Approach (ICD-10-PCS; principal; 2025-04-21 15:00)
DX: A41.9 Sepsis, unspecified organism (principal); E44.0 Moderate protein-calorie malnutrition; N17.9 Acute kidney failure, unspecified; N39.0 Urinary tract infection, site not specified; E03.9 Hypothyroidism, unspecified; Z66 Do not resuscitate; I05.2 Rheumatic mitral stenosis with insufficiency; I25.10 Atherosclerotic heart disease of native coronary artery without angina pectoris; E86.0 Dehydration; Z95.5 Presence of coronary angioplasty implant and graft; I49.5 Sick sinus syndrome; G35.D Multiple sclerosis, unspecified; M94.0 Chondrocostal junction syndrome [Tietze]; Z87.891 Personal history of nicotine dependence; E11.9 Type 2 diabetes mellitus without complications; I48.0 Paroxysmal atrial fibrillation; R53.81 Other malaise; R62.7 Adult failure to thrive; L89.152 Pressure ulcer of sacral region, stage 2; Z86.711 Personal history of pulmonary embolism; Z79.4 Long term (current) use of insulin; Z79.01 Long term (current) use of anticoagulants; Z74.01 Bed confinement status; Z79.85 Long-term (current) use of injectable non-insulin antidiabetic drugs; Z79.890 Hormone replacement therapy; Z79.899 Other long term (current) drug therapy
CPT/HCPCS: 33207; 36415; 71045; 74176; 80048; 80053; 81001; 82947; 83605; 83615; 83735; 84443; 84484; 85007; 85025; 85027; 86850; 86900; 86901; 87040; 87086; 87493; 87507; 93005; 93306; 97162; 97530; 99285; C1786; C1889; C1898; J0616; J0736; J1160; J1163; J1171; J1610; J2003; J2020; J2250; J2270; J2405; J2704; J3010; J3374; J3475; J7120; P9047; Q9967

== ENCOUNTER → 2025-04-16 19:28 | Outpatient (BNV) | payer MEDICARE, MEDICAID, SELFPAY | PROVIDERS: Emergency Provider Emergency Medicine; Visit Provider Internal Medicine Cardiovascular Disease | DX: I48.91 Unspecified atrial fibrillation (principal); I45.10 Unspecified right bundle-branch block | CPT/HCPCS: 93010 ==

== ENCOUNTER → 2025-04-16 20:45 | Outpatient (BNV) | payer MEDICARE, MEDICAID, SELFPAY | PROVIDERS: Emergency Provider Emergency Medicine; Visit Provider Radiology Diagnostic Radiology | DX: R07.9 Chest pain, unspecified (principal) | CPT/HCPCS: 71045; 74176 ==

== ENCOUNTER → 2025-04-17 20:24 | Outpatient (BNV) | payer MEDICARE, MEDICAID, SELFPAY | PROVIDERS: Admitting Provider Physician Assistant; Emergency Provider Emergency Medicine; Visit Provider Internal Medicine Cardiovascular Disease | DX: I48.91 Unspecified atrial fibrillation (principal) | CPT/HCPCS: 93010 ==

== ENCOUNTER 2025-04-18 02:58 | Outpatient (BNV) | payer OTHER, SELFPAY | END 2025-04-22 11:07 | PROVIDERS: Admitting Provider Physician Assistant; Emergency Provider Emergency Medicine; Visit Provider Internal Medicine Cardiovascular Disease | DX: I45.10 Unspecified right bundle-branch block (principal) | CPT/HCPCS: 93010 ==

== ENCOUNTER 2025-04-18 02:58 | Outpatient (BNV) | payer OTHER, SELFPAY | END 2025-04-20 21:09 | PROVIDERS: Admitting Provider Physician Assistant; Emergency Provider Emergency Medicine; Visit Provider Radiology Diagnostic Radiology | DX: R07.9 Chest pain, unspecified (principal); R06.02 Shortness of breath | CPT/HCPCS: 71045 ==

== ENCOUNTER 2025-04-18 02:58 | Outpatient (BNV) | payer OTHER, SELFPAY | END 2025-04-19 17:15 | PROVIDERS: Admitting Provider Physician Assistant; Emergency Provider Emergency Medicine; Visit Provider Internal Medicine Cardiovascular Disease | DX: I48.91 Unspecified atrial fibrillation (principal) | CPT/HCPCS: 93010 ==

== ENCOUNTER 2025-04-18 02:58 | Outpatient (BNV) | payer OTHER, SELFPAY | END 2025-04-21 19:58 | PROVIDERS: Admitting Provider Physician Assistant; Emergency Provider Emergency Medicine; Visit Provider Radiology Diagnostic Radiology | DX: Z03.89 Encounter for observation for other suspected diseases and conditions ruled out (principal); Z95.0 Presence of cardiac pacemaker | CPT/HCPCS: 71045 ==

== ENCOUNTER 2025-04-18 02:58 | Outpatient (BNV) | payer OTHER, SELFPAY | END 2025-04-21 15:10 | PROVIDERS: Admitting Provider Physician Assistant; Emergency Provider Emergency Medicine; Visit Provider Internal Medicine Cardiovascular Disease | DX: I45.10 Unspecified right bundle-branch block (principal) | CPT/HCPCS: 93010 ==

== ENCOUNTER 2025-04-18 02:58 | Outpatient (BNV) | payer OTHER, SELFPAY | END 2025-04-22 10:50 | PROVIDERS: Admitting Provider Physician Assistant; Emergency Provider Emergency Medicine; Visit Provider Radiology Diagnostic Ultrasound | DX: Z45.018 Encounter for adjustment and management of other part of cardiac pacemaker (principal) | CPT/HCPCS: 71045 ==

== ENCOUNTER 2025-04-18 02:58 | Outpatient (BNV) | payer OTHER, SELFPAY | END 2025-04-20 08:33 | PROVIDERS: Admitting Provider Physician Assistant; Emergency Provider Emergency Medicine; Visit Provider Internal Medicine Cardiovascular Disease | DX: R94.31 Abnormal electrocardiogram [ECG] [EKG] (principal); R07.9 Chest pain, unspecified | CPT/HCPCS: 93010 ==

== ENCOUNTER → 2025-04-18 02:58 | Outpatient (BNV) | payer MEDICARE, MEDICAID, SELFPAY | PROVIDERS: Admitting Provider Physician Assistant; Emergency Provider Emergency Medicine; Visit Provider Student in an Organized Health Care Education/Training Program | DX: I49.5 Sick sinus syndrome (principal) | CPT/HCPCS: 99233; 99499 ==

== ENCOUNTER → 2025-04-18 02:58 | Outpatient (BNV) | payer OTHER, SELFPAY | PROVIDERS: Admitting Provider Physician Assistant; Emergency Provider Emergency Medicine; Visit Provider Internal Medicine Cardiovascular Disease | DX: I49.5 Sick sinus syndrome (principal) | CPT/HCPCS: 99222; 99233 ==

== ENCOUNTER 2025-04-25 06:15 | Outpatient (REF) | payer OTHER, SELFPAY ==
[2025-04-25 06:19] LABS: MANUAL DIFF FLAG NO
[2025-04-25 06:43] LABS: Hematocrit 22.3 % (37.0-47.0); Imm Gran Abs Auto 0.05 X10*3/uL (0.00-0.03); Imm Gran Pct Auto 0.8 % (0.0-0.4); Lymphocytes Absolute Auto 1.2 X10*3/uL (1.2-4.9); Mean Corpuscular HGB Conc 30.9 g/dl (31.0-35.0); Mean Corpuscular Hemoglobin 28.9 pg (27.0-33.0); Mean Corpuscular Volume 93.3 fL (80.0-98.0); NRBC Abs Auto 0.000 X10*3/uL (0.0-0.012); NRBC Pct Auto 0.0 /100WBC (0.0-0.2); Platelet Count 259 X10*3/uL (160-400); Red Blood Count 2.39 X10*6/uL (4.20-5.50); White Blood Count 6.4 X10*3/uL (4.8-10.8)
[2025-04-25 06:50] LABS: Hemoglobin 6.9 g/dl (12.0-16.0)
[2025-04-25 06:52] LABS: Alanine Aminotransferase 14 U/L (0-31); Albumin Level 3.0 g/dL (3.5-5.0); Alkaline Phosphatase 258 U/L (39-117); Anion Gap 12 (12-20); Aspartate Amino Transferase 25 U/L (5-31); Blood Urea Nitrogen 20 mg/dL (9-16); Calcium 8.5 mg/dL (8.4-10.2); Carbon Dioxide 18 mmol/L (22-29); Chloride 109 mmol/L (96-108); Estimated Glomerular Filt Rate 40; Potassium 3.1 mmol/L (3.3-5.1); Sodium 136 mmol/L (135-145); Total Protein 5.7 g/dL (6.5-8.0)
[2025-04-25 11:05] LABS: MANUAL DIFF FLAG NO
[2025-04-25 11:22] LABS: Hematocrit 23.6 % (37.0-47.0); Hemoglobin 7.4 g/dl (12.0-16.0); Imm Gran Abs Auto 0.08 X10*3/uL (0.00-0.03); Imm Gran Pct Auto 0.9 % (0.0-0.4); Lymphocytes Absolute Auto 0.9 X10*3/uL (1.2-4.9); Mean Corpuscular HGB Conc 31.4 g/dl (31.0-35.0); Mean Corpuscular Hemoglobin 29.2 pg (27.0-33.0); Mean Corpuscular Volume 93.3 fL (80.0-98.0); NRBC Abs Auto 0.030 X10*3/uL (0.0-0.012); NRBC Pct Auto 0.3 /100WBC (0.0-0.2); Platelet Count 284 X10*3/uL (160-400); Red Blood Count 2.53 X10*6/uL (4.20-5.50); White Blood Count 8.6 X10*3/uL (4.8-10.8)
== END 2025-04-25 06:16 | disposition home or self-care (01) ==
LOC: HO.MMNH2L 06:15
PROVIDERS: Visit Provider Physician Assistant Medical
DX: Z13.1 Encounter for screening for diabetes mellitus (principal)
CPT/HCPCS: 36415; 80053; 83036; 85025

== ENCOUNTER 2025-04-27 05:48 | Outpatient (REF) | payer OTHER, SELFPAY ==
[2025-04-27 07:57] LABS: Hematocrit 21.1 % (37.0-47.0); Imm Gran Abs Auto 0.10 X10*3/uL (0.00-0.03); Imm Gran Pct Auto 1.2 % (0.0-0.4); Lymphocytes Absolute Auto 1.6 X10*3/uL (1.2-4.9); MANUAL DIFF FLAG SCAN; Mean Corpuscular HGB Conc 31.8 g/dl (31.0-35.0); Mean Corpuscular Hemoglobin 29.0 pg (27.0-33.0); Mean Corpuscular Volume 91.3 fL (80.0-98.0); NRBC Abs Auto 0.020 X10*3/uL (0.0-0.012); NRBC Pct Auto 0.2 /100WBC (0.0-0.2); PLT CLUMP 1; Red Blood Count 2.31 X10*6/uL (4.20-5.50); SCAN SMEAR FLAG 1
[2025-04-27 08:00] LABS: Hemoglobin 6.7 g/dl (12.0-16.0)
[2025-04-27 08:06] LABS: White Blood Count 8.5 X10*3/uL (4.8-10.8)
--- OUTSIDE RECORDS SUMMARY | 2025-04-27 14:34 | XMS_ITS | Encounter Summary ---
Author Organization [facility], Address [address] [place] [address] Phone Care Team Providers Care Conference Organizer Name Role Phone Martin Green MD Primary Care Provider [phone] Encounter Details Date Type Department Care Team (Late st Contact Info) Description 10/17/2022 Documentation Only [facility], - [facility] [place] [phone] Martin Green MD [address] [place] [phone] Social History Tobacco Use Types Packs/Day Years Used Date Smoking Tobacco: Former Cigarettes 0 Q uit: 12/16/2010 Comments:Smoking History Inf o:Unknown [...] on filedocumented in this encounter Care Teams Conference Organizer Relationship Specialty Start Date End Date Martin Green MD [address] [place] [phone] PCP - General 04/13/19 documented as of this encounter
--- OUTSIDE RECORDS SUMMARY | 2025-04-27 14:34 | XMS_ITS | Encounter Summary ---
Author Organization [facility] Address [address] [place] [address] Care Team Providers Care Staff Air Defense Officer Name Role Phone Martin Green Primary Care Provider [phone] Encounter Details Date Type Department Care Team (Late st Contact Info) Description 08/27/2024 Testive Message [facility] Financial Clearance Department [address] [place] [phone] [facility], Generic Provider [facility] [place] [phone] No Auth required Social History Tobacco Use [...] Description 08/25/2025 2:00 PM EDT Office Visit [facility] [address] [place] [phone] Molded Grid And Parts Inspector: Kenneth Walsh MD PhD [address] [place] [phone] documented as of this encounter Visit Diagnoses Not on filedocumented in this encounter Care Teams Staff Air Defense Officer Relationship Specialty Start Date End Date Martin Green [address] [place] [phone] PCP - General Internal Medicine 10/08/18 documented as of this encounter
--- OUTSIDE RECORDS SUMMARY | 2025-04-27 14:35 | XMS_ITS ---
Author Organization [facility] Care Team Providers Care Health Services Manager Name Role Phone Elder, Valerie Waters Unavailable Unavailable Jess ROTARY SHEAR CUTTER, Tiera Hathaway Unavailable Unavailable Giuliana Claros Unavailable Unavailable Allergies and adverse reactions Code CodeSystem Substance Reaction Severity StartDate Concern Status acetaminophen-sa l icylamide Unknown 04/15/2025 active 727423 RXNORM Advair Diskus Dyspnea (code- 164906545, SNOMED CT) Unknown 04/15/2025 active 499746 RXNORM Augmentin Anaphylaxis (code- 43534543, SNOMED CT) Unknown 04/15/2025 active 3498 RXNORM Benadryl Anaphylaxis (code- 90108089, SNOMED CT) Unknown 04/15/[address] Cephalosporins Dyspnea (code- 287411836, SNOMED CT) Unknown 04/15/2025 active 2551 RXNORM Ciprofloxacin Unknown 04/15/2025 active 95961 RXNORM Clarithromycin Dyspnea (code- 877177990, SNOMED CT) Unknown 04/15/2025 active 2670 RXNORM Codeine Dyspnea (code- 827647575, SNOMED CT) Unknown 04/15/2025 active 10288 RXNORM Cozaar Dyspnea (code- 114872219, SNOMED CT) Unknown 04/15/2025 active 092402 RXNORM Cymbalta Unknown 04/15/2025 active 3640 RXNORM Doxycycline Dyspnea (code- 879319420, SNOMED CT) Unknown 04/15/2025 active 55138 RXNORM DULoxetine Unknown 04/15/2025 active 2177 RXNORM Duricef Dyspnea (code- 997852593, SNOMED CT) Unknown 04/15/2025 active 4493 RXNORM FLUoxetine Unknown 04/15/2025 active 12981 RXNORM Gabapentin Unknown 04/15/2025 active 13723 RXNORM Levaquin Dyspnea (code- 432938625, SNOMED CT) Unknown 04/15/2025 active 344109 RXNORM Lexapro Altered mental status (code- 827967383, SNOMED CT) Unknown 04/15/2025 active 88095 RXNORM Lisinopril Unknown 04/15/2025 active 473342 RXNORM Lyrica Unknown 04/15/2025 active 6809 RXNORM metFORMIN Unknown 04/15/[address] NSAIDs Unknown 04/15/2025 active 13315 RXNORM Ondansetron Unknown 04/15/2025 active 7984 RXNORM Penicillin Anaphylaxis (code- 19960375, SNOMED CT) Unknown 04/15/2025 active Red Blood Cells Unknown 04/15/[address] Sulfa Antibiotics Anaphylaxi s (code- 59507636, SNOMED CT) Unknown 04/15/2025 active Sulfamethoxazole / Sulfadiazine/Trim ethoprim Nausea and vomiting (code- 51653629, SNOMED CT) Unknown 04/15/2025 active 476300 RXNORM Toradol Dyspnea (code- 407234586, SNOMED CT) Unknown 04/15/2025 active Care Team Name Role Address Phone Organization Dates Valerie EVANS [address] [address], [facility] (Office): : [facility] 04/15/2025 - 04/21/2025 Tiera Mercado NP [address] (Office): [facility] 04/15/2025 - 04/21/2025 [place], [phone], [facility] (Office): [facility] 04/15/2025 - 04/21/2025 Encounters Encounter Type Code Code System Description Performer Discharge Disposition Service Delivery Location Date Ambulatory Encounter CPT Code = 71743 G35.D ICD 10 MULTIPLE SCLEROSIS, UNSPECIFIED [facility] n Address: [address] [place], [place] [address]by , [facility] [place], [address] [place] [address]. 04/15 Ambulatory Encounter CPT Code = [id number] Chronic pain syndrome [facility] n Address: [address] [place], [place] [address] [facility] [place] [address] [place] [address]. 04/15 Ambulatory Encounter CPT Code = [id number] Fibromyalgia [facility] n Address: [address] [place], [place] [address] [facility] [place], [address] [place] [address]. 04/15 Ambulatory Encounter CPT Code = [id number] Raynaud''s disease [facility] n Address: [address] [place], [place] [address] [facility] [place], [address] [place] [address]. 04/15 Ambulatory Encounter CPT Code = [id number] Asthenia [facility] n Address: [address] [place], [place] [address] [facility], [address] [place] [address]. 04/15 Ambulatory Encounter CPT Code = [id number] Schizophrenia [facility] n Address: [address] [place], [place] [address] [facility] [place], [address] [place] [address]. 04/15 Ambulatory Encounter CPT Code = [id number] Anxiety disorder [facility] n Address: [address] [place], [place] [address] [place], [address] [place] [address]. 04/15 Ambulatory Encounter CPT Code = [id number] Major depression, single episode [facility] n Address: [address] [place], [place] [address] [facility], [address] [place] [address]. 04/15 Ambulatory Encounter CPT Code = [id number] Disorder of nervous system due to type 2 diabetes mellitus [facility] n Address: [facility] [place] , [facility] [place], [address], [place]. 04/15 Ambulatory Encounter CPT Code = [id number] Polyneuropathy due to type 2 diabetes mellitus [facility] n Address: [facility] [place] , [facility] [place], [address] [place] [address]. 04/15 Ambulatory Encounter CPT Code = [id number] Posttraumatic stress disorder [facility] n Address: [facility] [place] , [facility] [place], [address], [place]. 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 [place], [facility] [place], [address] [place] [address]. 04/15 Ambulatory Encounter CPT Code = [id number] Vitamin D deficiency [facility] n Address: [facility] [place] [facility] [place], [address], [place]. 04/15 Ambulatory Encounter CPT Code = [id number] Muscle weakness [facility] n Address: [facility] [place] [facility] [place], [address], [place]. 04/15 Ambulatory Encounter CPT Code = [id number] Unsteady when standing [facility] n Address: [facility] [place] [address], [place]. 04/15 Ambulatory Encounter CPT Code = [id number] Essential hypertension [facility] n Address: [facility] [place], [address], [place]. 04/15 Ambulatory Encounter CPT Code = [id number] Hyperlipidemia [facility] n Address: [address] [place] [address], [place], [address], [place]. 04/15 Ambulatory Encounter CPT Code = [id number] Type 2 diabetes mellitus without complication Franciscajourdan Parmar [facility] n Address: [address] [place] [address], [place], [address] [place] [address]. 04/15 Ambulatory Encounter CPT Code = [id number] Pulmonary embolism Francisca [facility] n Address: [address] [place] [address], [address] [place] [address]. 04/15 Ambulatory Encounter CPT Code = [id number] Long-term current use of anticoagulant Francisca Parmar [facility] n Address: [address] [place] [address], [address] [place] [address]. 04/15 Ambulatory Encounter CPT Code = [id number] Polyneuropathy [facility] n Address: [address] [place] [address], [phone] [place] [address]. 04/15 Ambulatory Encounter CPT Code = [id number] Dysphagia [facility] n Address: [address] [place] [address], [address], [place]. 04/15 Goals Section Goals Description Status Target Date Bella will be free from an y s/sx of hyperglycemia through the review date. Active 07/14/2025 Bella will be free from an y s/sx of hypoglycemia through the review date. Active 07/14/2025 Bella will be free from di scomfort or adverse reactions related to anticoagulant use through the review date. Active 07/14/19 Bella will be free from di scomfort or adverse reactions related to antidepressant therapy through the review date. Active 10/2025 Bella will be free of any discomfort or adverse side effects of hypnotic use through the review date. Active 07/14/2025 Bella will be free of falls through the review date. Active 07/14/2025 Bella will have no complic ations related to diabetes through the review date. Active 07/14/2025 Bella will maintain curren t level of function through the review date. Active 07/14/2025 Bella will not have an int erruption in normal activities due to pain through the review date. Active 07/14/2025 Bella will remain free fro m skin breakdown due to incontinence and brief use through the review date. Active 07/14/2025 Bella will remain free of complications related to immobility, including contractures, thrombus formation, skin-breakdown, fall related injury through the next review date. Active Bella will verbalize adequ ate relief of pain or ability to cope with incompletely relieved pain through the review date. Active 07/14/2025 Functional Status Code Name Recorded Time Value Entered By Chair/mpe-fo-hmjps transfer 04/26/2025 Not assessed LKennedy Does the resident use a whee lchair and/or scooter? 04/26/2025 Not assessed LKennedy Eating 04/26/2025 Not assessed [email or web address] Indicate the type of wheelchair or scooter used 2024 Not assessed LKennedy Lower body dressing 04/26/2025 Not assessed LKennedy Lying to sitting on side of bed 04/26/2025 Not asses sed LKennedy Oral hygiene 04/26/2025 Not assessed LKennedy Personal hygiene 04/26/2025 Not assessed LKennedy Putting on/taking off footwear 04/26/2025 Not assess ed LKennedy Roll left and right 04/26/2025 Not assessed LKennedy Shower/bathe self 04/26/2025 Not assessed LKennedy Sit to lying 04/26/2025 Not assessed LKennedy Sit to stand 04/26/2025 Not assessed LKennedy Toilet transfer 04/26/2025 Not assessed LKennedy Toileting hygiene 04/26/2025 Not assessed LKennedy Transferring 04/26/2025 Not assessed [email or web address] Upper body dressing 04/26/2025 Not assessed LKennedy Walk 10 feet 04/26/2025 Not assessed LKennedy Walk 150 feet 04/26/2025 Not assessed LKennedy Walk 50 feet 04/26/2025 Not assessed LKennedy Wheel 150 feet 04/26/2025 Not assessed LKennedy Wheel 50 feet with two turns 04/26/2025 Not assessed LKennedy Immunizations Immunization Status Vaccine Details Vaccine Code CodeSystem Oumar e Notes PPSV23 completed pneumococcal polysaccharide vaccine, 23 valent 33 CVX created date: 04/19/2025 administered date: 10/07/2017 Medications Section Medication Name Status Code CodeSystem Dose Route Frequency Admin Type Sig Text Start Date End Date Indication Ketorolac Tromethamin e Ophthalmic Solution 0.5 % active 60062 7 RXNORM 1 drop Ophtha lmic three times a day Routin e Insti ll 1 drop in right eye three times a day for eye healt h 2024 - eye health Pantoprazol e Sodium Oral Tablet Delayed Release 20 MG active 20829 2 RXNORM 1 table t Oral one time a day Routin e Give 1 table t by mouth one time a day for GERD 2024 - GERD Lidocaine External Patch 4 % active 46597 94 RXNORM n/a n/a Topica l in the morning Routin e Apply to back topic ally in the morni ng for pain 2 patch es 2024 - pain Latanoprost Ophthalmic Emulsion 0.005 % active 32968 43 RXNORM 1 drop Ophtha lmic at [...] Insulin Lispro Injection Solution 100 UNIT/ML active 87107 0 RXNORM n/a n/a Subcut aneous before [...] ICATI ONS (E11. 9) 2024 - - 0 RXNORM 6 unit Subcut aneous with [...] TUS WITHO UT COMPL ICATI ONS (E11. ) AND Injec t 6 unit subcu taneo usly with meals relat ed to TYPE 2 DIABE ARPAN MELLI TUS WITHO UT COMPL ICATI ONS (E11. ) AND Injec t 2 unit subcu taneo usly as neede d for take with snack s as neede d relat ed to TYPE 2 DIABE ARPAN MELLI TUS WITHO UT COMPL ICATI ONS (E11. ) 2024 - 0 RXNORM 2 unit Subcut aneous as needed PRN Injec t as per slidi ng scale [...] TUS WITHO UT COMPL ICATI ONS (E11. ) AND Injec t 6 unit subcu taneo usly with meals relat ed to TYPE 2 DIABE ARPAN MELLI TUS WITHO UT COMPL ICATI ONS (E11. ) AND Injec t 2 unit subcu taneo usly as neede d for take with snack s as neede d relat ed to TYPE 2 DIABE ARPAN MELLI TUS WITHO UT COMPL ICATI ONS (E11. 9) 2024 - take with snacks as needed Brimonidine Tartrate Ophthalmic Solution 0.2 % active 48891 0 RXNORM 1 drop Ophtha lmic two times a day Routin e Insti ll 1 drop in both eyes two times a day for eye healt h 2024 - eye health Nystatin External Powder 319775 UNIT/GM active 76842 6 RXNORM n/a n/a Topica l every day and evening shift Routin e Apply to funga l rash topic ally every day and eveni ng shift for rash 2024 - rash Empaglifloz in Oral Tablet 10 MG active 68716 58 RXNORM 1 table t Oral one time a day Routin e Give 1 table t by mouth one time a day relat ed to TYPE 2 DIABE ARPAN VANESSA WITHO UT COMPL ICATI ONS (E11. 9) 2024 - - Trulicity Subcutaneou s Solution Auto-inject or 3 MG/0.5ML active 10807 79 RXNORM 3 mg Subcut aneous one time a day Routin e Injec t 3 mg subcu taneo usly one time a day every Tue relat ed to TYPE 2 DIABE ARPAN VANESSA WITHO UT COMPL ICATI ONS (E11. 9) 2024 - - Sarna External Lotion 0.5-0.5 % active n/a n/a Topica l as needed PRN Apply to skin topic ally as neede d for itchi ng 2024 - itching Lantus SoloStar Subcutaneou s Solution Pen-injecto r 100 UNIT/ML active 53973 2 RXNORM 30 unit Subcut aneous at bedtime Routin e Injec t 30 unit subcu taneo usly at bedti me relat ed to TYPE 2 DIABE ARPAN VANESSA WITHO UT COMPL ICATI ONS (E11. 9) 2024 - - HyperSal Inhalation Nebulizatio n Solution 7 % active 94236 7 RXNORM 4 ml Inhala tion two times a day Routin e 4 ml inhal e orall y via nebul izer two times a day for resp. healt h 2024 - resp. health traZODone HCl Oral Tablet 50 MG aborted 47228 7 RXNORM 1 table t Oral as needed PRN Give 1 table t by mouth every 6 hours as neede d for insom felix 04/19 insomnia Aspirin Oral Tablet Chewable 81 MG active 77272 2 RXNORM 1 table t Oral one time a day Routin e Give 1 table t by mouth one time a day for heart healt h 2024 - heart health diazePAM Oral Tablet 5 MG active 1 RXNORM 1 table t Oral as needed PRN Give 1 table t by mouth every 8 hours as neede d for anxie ty 2024 - anxiety Sildenafil Citrate Oral Tablet 20 MG active 82204 3 RXNORM 1 table t Oral three times a day Routin e Give 1 table t by mouth three times a day relat ed to RUTH STEPHENS (PRIM CHYNA) HYPER TENSI ON (I10) 2024 - - Dupixent Subcutaneou s Solution Auto-inject or 300 MG/2ML active 76271 29 RXNORM 2 ml Subcut aneous one [...] Nebulizatio n Solution (2.5 MG/3ML) 0.083% active 21476 8 RXNORM 1 vial Inhala tion as [...] Diclofenac Sodium External Gel 1 % active 80443 3 RXNORM n/a n/a Topica l four times a day Routin e Apply to painf ul areas topic ally four times a day relat ed to MULTI PLE SCLER OSIS, UNSPE CIFIE D (G35. D) 2 grams 2024 - - Linezolid Oral Tablet 600 [place] [address] 7 RXNORM 1 table t Oral every 12 hours Routin e Give 1 table t by mouth every 12 hours for uti until 04/19 23:59 04/20 uti Metoprolol Succinate ER Oral Tablet Extended Release 24 Hour 50 MG active 33449 6 RXNORM 1 table t Oral one time a day Routin e Give 1 table t by mouth one time a day relat ed to CARLOS TIAL (PRIM CHYNA) HYPER TENSI ON (I10) 2024 - - Fleet Enema Enema 7-19 GM/118ML active 84980 5 RXNORM 1 dose Rectal as needed PRN Inser t 1 dose recta lly as neede d for Const ipati on (Step 3) as neede d if no bowel movem ent for 8 hours after bisac odyl suppo sitor y. 2024 - Constipatio n Milk of Magnesia Suspension 400 MG/5ML active 80348 7 RXNORM 30 ml Oral as needed PRN Give 30 ml by mouth as neede d for Const ipati on (Step 1) As neede d if no bowel movem ent for three days. (Do not use for Hemod ialys is patie nts). 2024 - Constipatio n Acetaminoph en Tablet 325 MG aborted 37625 2 RXNORM 2 table t Oral as [...] grams / 24 hours . 04/16 Pain 15900 2 RXNORM 2 table t Oral as [...] Magnesia Glutose 45 Gel 40 % active 18768 87 RXNORM 1 dose Oral as needed PRN Give 1 dose by mouth as neede d for hypog lycem ic james col Give one tube PO/SL if FSBS <50 and able to swall ow PRN. Reche ck FSBS 10 minut es after admin istra tion and call provi leonid. 2024 - hypoglycemi c protocol GlucaGen HypoKit Solution Reconstitut ed 1 MG active 01356 5 RXNORM 1 mg Subcut aneous as [...] protocol Melatonin Oral Tablet 5 MG active 48840 2 RXNORM 1 table t Oral at bedtime Routin e Give 1 table t by mouth at bedti me for insom felix 2024 - insomnia Levothyroxi ne Sodium Oral Tablet 75 MCG active 75319 2 RXNORM 1 table t Oral one time a day Routin e Give 1 table t by mouth one time a day for hypot hyroi disnm 2024 - hypothyroid isnm Promethazin e HCl Oral Tablet 25 MG active 58168 7 RXNORM 1 table t Oral as needed PRN Give 1 table t by mouth as neede d for nause a 2024 - nausea Dorzolamide HCl Ophthalmic Solution 2 % active 68849 5 RXNORM 1 drop Ophtha lmic two times a day Routin e Insti ll 1 drop in both eyes two times a day for eye healt h 2024 - eye health Amantadine HCl Oral Capsule 100 MG active 26814 9 RXNORM 1 capsu le Oral two times a day Routin e Give 1 capsu le by mouth two times a day for routi ne 2024 - routine prednisoLON E Acetate Ophthalmic Suspension 1 % active 76684 36 RXNORM 1 drop Ophtha lmic three times a day Routin e Insti ll 1 drop in right eye three times a day for eye healt h 2024 - eye health dilTIAZem HCl ER Oral Tablet Extended Release 24 Hour active 300 mg Oral one time a day Routin e Give 300 mg by mouth one time a day relat ed to CARLOS ANGELO (PRIM CHYNA) HYPER TENSI ON (I10) 2024 - - Modafinil Oral Tablet 100 MG active 51966 8 RXNORM 1 table t Oral two times a day Routin e Give 1 table t by mouth two times a day relat ed to MULTI PLE SCLER OSIS, UNSPE CIFIE D (G35. D) 2024 - - Spironolact one Oral Tablet 25 MG active 45560 6 RXNORM 1 table t Oral one time a day Routin e Give 1 table t by mouth one time a day for diure tic 2024 - diuretic Thiamine HCl Oral Tablet 100 MG active 59660 3 RXNORM 1 table t Oral one time a day Routin e Give 1 table t by mouth one time a day for suppl ement 2024 - supplement Eliquis Oral Tablet 5 MG active 89560 47 RXNORM 1 table t Oral two times a day Routin e Give 1 table t by mouth two times a day relat ed to NURSING HOME (CURR ENT) USE OF ANTIC OAGUL ANTS (Z79. 01) 2024 - - Montelukast Sodium Oral Tablet 10 MG active 76262 4 RXNORM 1 table t Oral one time a day Routin e Give 1 table t by mouth one time a day for routi ne 2024 - routine Adderall Oral Tablet 30 MG active 38391 5 RXNORM 1 table t Oral one time a day Routin e Give 1 table t by mouth one time a day relat ed to MULTI PLE SCLER OSIS, UNSPE CIFIE D (G35. D) 2024 - - Morphine Sulfate Oral Tablet 15 MG active 33204 2 RXNORM 1 table t Oral as needed PRN Give 1 table t by mouth every 8 hours as neede d for pain 2024 - pain traZODone HCl Oral Tablet 50 MG active 24506 7 RXNORM 1 table t Oral as needed PRN Give 1 table t by mouth every 6 hours as neede d for insom felix for 14 Days 05/03 insomnia Mental Status Section Date Assessment Total Score Description 04/16/2025 BIMS 15 cognitively int act CAM 0 No delirium ind icated PHQ-9 00 04/16/2025 CAM 0 No delirium ind icated Insurance Providers Plan of Treatment Section Interventions Intervention Code Code System Display Name Proposed D ate Problems Problem # Description Date of onset Resolved Date Code CodeSystem Concern Status 1 ANXIETY DISORDER, UNSPECIFIED 04/15/[address] active 2 CHRONIC PAIN SYNDROME 04/15/[address] active 3 DIABETES MELLITUS DU E TO UNDERLYING CONDITION WITH MILD NONPROLIFERATIVE DIABETIC RETINOPATHY WITHOUT MACULAR EDEMA, BILATERAL 04/15/[address] active 4 FIBROMYALGIA 04/15/[address] acti ve 5 MAJOR DEPRESSIVE DISORDER, SINGLE EPISODE, UNSPECIFIED 04/15/[address] active 6 MUSCLE WEAKNESS (GENERALIZED) 04/15/[address] active 7 POST-TRAUMATIC STRES S DISORDER, UNSPECIFIED 04/15/[address] active 8 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 04/15/[address] active 9 SCHIZOPHRENIA, UNSPECIFIED 04/15/[address] active 10 TYPE 2 DIABETES MELLITUS WITH DIABETIC NEUROPATHY, UNSPECIFIED 04/15/[address] active 11 TYPE 2 DIABETES MELLITUS WITH DIABETIC POLYNEUROPATHY 04/15/[address] active 12 UNSTEADINESS ON FEET 04/15/[address] active 13 VITAMIN D DEFICIENCY , UNSPECIFIED 04/15/[address] active 14 WEAKNESS 04/15/[address] active 15 DYSPHAGIA, UNSPECIFIED 04/14/[address] active 16 ESSENTIAL (PRIMARY) HYPERTENSION 04/14/[address] active 17 HYPERLIPIDEMIA, UNSPECIFIED 04/14/[address] active 18 NURSING HOME (CURRENT) USE OF ANTICOAGULANTS 04/14/[address] active 19 MULTIPLE SCLEROSIS, UNSPECIFIED 04/14/2025 G35.D ICD-10-CM active 20 PERSONAL HISTORY OF PULMONARY EMBOLISM 04/14/[address] active 21 POLYNEUROPATHY, UNSPECIFIED 04/14/[address] active 22 TYPE 2 DIABETES MELLITUS WITHOUT COMPLICATIONS 04/14/[address] active Reason for Referral No Reasons for Referral Entered Social History Social History Observation Description Start Date End Date Code Code System Current Smoking Status Tobacco smoking consumption unknown 922791392 SNOMED CT Sex Assigned At Female 1960 66358-1 [facility] Gender Identity Sexual Orientation Vital Signs Code Code System Vitals Name Values and Units Timing Information 53328-6 [facility] Pain Level Value=0.0 04/26/2025 2339-0 [facility] Blood Sugar Value=1.0 Units=mg/dL 9279-1 [facility] Respiratory Rate Value=18.0 Units=/m in 04/16/2025 8462-4 [facility] Blood Pressure-Diastolic Value=73 Un its=mmHg 04/16/2025 8480-6 [facility] Blood Pressure-Systolic Hkvwg=614 Un its=mmHg 04/16/2025 8310-5 [facility] Body Temperature Value=97.2 Units= F 04/16/2025 8867-4 [facility] Heart rate Value=95.0 Units=/min 01/2025 95500-0 [facility] O2 % BldC Oximetry Value=98.0 Units= % 04/16/2025 8302-2 [facility] Height Value=65.0 Units=Inches 04/16/2025 34532-1 [facility] Weight Lwyhe=280.6 Units=Lbs 01/2025
--- OUTSIDE RECORDS SUMMARY | 2025-04-27 14:35 | XMS_ITS | Clinical Summary ---
Author Organization [facility] Address [address] [place] [address] Care Team Providers Care Ham Doctor Name Role Phone Martin Green Primary Care Provider [phone] Allergies Active Allergy Reactions Criticality Noted Date [...] Type Department Care Team Description 03/24/2025 Telephone [facility] [address] [place] [address] Jitney Driver: Vania Waterman LPN 03/17/2025 Orders Only [facility] [address] [address] Jitney Driver: Kecia Galicia MD 03/09/2025 Telephone [facility] [address] [place] [address] Jitney Driver: Vania Waterman LPN 03/08/2025 Telephone [facility] [address] [address] Jitney Driver: Ben Turcios LPN 03/08/2025 Refill [facility] [address] [place] [address] Jitney Driver: Kenneth Walsh MD PhD Demyelinating disease 03/03/2025 Telephone [facility] [address] [place] [address] Jitney Driver: Lucie Reece CCMA PAC Clinical Questions 03/03/2025 Telephone [facility] [address] [place] [address] Jitney Driver: Elizabeth Hummel Telephone Intake, Staff PAC General Info 02/25/2025 Telephone [facility] [address] [place] [address] Jitney Driver: Charles Phillips MA 02/23/2025 Refill [facility] [address] [place] [address] Jitney Driver: Kenneth Walsh MD PhD Demyelinating disease 02/08/2025 Telephone [facility] [address] [place] [address] Jitney Driver: Vania Waterman LPN 02/02/2025 1:00 PM EDT Office Visit [facility] [address] [place] [address] Jitney Driver: Kenneth Walsh MD PhD Multiple sclerosis (HCC) (Primary Dx); Cerebrovascular disease; Demyelinating disease 01/31/2025 Telephone [facility] [address] [place] [address] Mercy Patrick RN 01/31/2025 Telephone [facility] [address] [place] [address] Jitney Driver: Elizabeth Hummel Telephone Intake, Staff PAC Sick/Symptoms; PAC Nurse Scheduling Request 01/26/2025 Refill [facility] [address] [place] [address] Jitney Driver: Charles Phillips MA Demyelinating disease from Last [...] Description 08/25/2025 2:00 PM EDT Office Visit [facility] [address] [place] [address] Jitney Driver: Kenneth Walsh MD PhD [address] [place] [address] Health Maintenance Due Date Last Done Comments Cologuard 1960 Colonoscopy 1960 Hepatitis C Screening 1960 Sigmoidoscopy 1960 RSV Vaccine (60+ years old and patients) (1 - Risk 50-74 years 1-dose series) 01/05/2008 Zoster Vaccines (1 of 2) 01/05/2008 Mammogram 10/09/2020 10/09/2018, 10/09/2018 Pneumococcal Vaccine: 50+ Years (3 of 3 - PCV20 or PCV21) 10/07/2022 10/07/2017, 06/30/2014, 12/11/2012 Alcohol/Substance Use Screening 06/09/2024 Depression Screening and Follow-Up 06/09/2024 Health Care Proxy Review 06/09/2024 Social Drivers of Health Annual Screening 06/09/2024 CT Lung Cancer Screening (Baseline) 09/16/2024 09/17/2023, 11/14/2020, 11/14/2020, Additional history exists Influenza Vaccine (#1) 2025 04/05/2022, 2018 COVID-19 Vaccine ( season) 2025 10/15/2021, 06/22/2021, 09/16/2020, Additional history exists Colon Cancer Screening 07/23/2025 FOBT / Fit [...] complete this topic Procedures * Due to [place] [employer] law, this organization might not be sharing negative HIV tests. Procedure Name Priority Date/Time Associated Diagnosis Comments IMAGING - SCANNED Routine 03/17/2025 11: 59 AM EDT IMAGING - SCANNED Routine 03/17/2025 11: 58 AM EDT BRAIN C- ICOMETRIX CPT 51091 Routine 03/05/2025 4:10 PM EDT Multiple sclerosis (HCC) Cerebrovascular disease from Last 3 Months Results * Due to [place] state law, this organization might not be [...] PM EDT Narrative 03/08/2025 11:26 AM EDT [facility] Accession Number: [id number] Patient Name: Bella Shabazz Date of : 1960 Date of Exam: 03-05-2025 Referring Physician: Kenneth Carter [facility] [address] [place] [address] Exam: MR Brain (C-) Icometrix CPT 29971, 0866T Room Description: [facility] 3.0T MRI Brain W/O Icometrix INDICATION [...] sclerosis. No evidence of progressive disease. WSN: [id number] Ordering Physician: Kenneth Carter Electronically Signed By: Danielle Larsen MD Procedure Note Provider, [place] - 03/08/2025 [facility] Accession Number: [id number] Patient Name: Bella Shabazz Date of : 1960 Date of Exam: 03-05-2025 Referring Physician: Kenneth Carter [facility] [address] [place] [id number] Exam: MR Brain (C-) Icometrix CPT 73872, 0866T Room Description: [facility] 3.0T MRI Brain W/O Icometrix INDICATION [...] sclerosis. No evidence of progressive disease. WSN: [id number] Ordering Physician: Kenneth Carter Electronically Signed By: Danielle Larsen MD us Kenneth Carter MD PhD IMG MRI PROCEDURES Angle l Result from Last 3 Months Insurance [facility] [place] SMITH [id number] Care Teams Ham Doctor Relationship Specialty Start Date End Date Martin Green [address] [place] [phone] PCP - General Internal Medicine 10/08/18
--- OUTSIDE RECORDS SUMMARY | 2025-04-27 14:35 | XMS_ITS | Encounter Summary ---
Author Organization [facility] Address [address] [place] [address] Care Team Providers Care Printing Technician Name Role Phone Martin Green Primary Care Provider [phone] Encounter Details Date Type Department Care Team (Late st Contact Info) Description 05/10/2022 Telephone [facility] Central Scheduling Department [address] [place] [address] Telephone Intake, Staff Social History Tobacco Use [...] Description 08/25/2025 2:00 PM EDT Office Visit [facility] [address] [place] [address] Utility Agent: Kenneth Walsh MD PhD [address] [place] [address] documented as of this encounter Visit Diagnoses Not on filedocumented in this encounter Care Teams Printing Technician Relationship Specialty Start Date End Date Martin Green [address] [place] [address] PCP - General Internal Medicine 10/08/18 documented as of this encounter
--- OUTSIDE RECORDS SUMMARY | 2025-04-27 14:35 | XMS_ITS | Encounter Summary ---
Author Organization [facility] Address [address] [place] [address] Care Team Providers Care Stunner And Shackler Name Role Phone Martin Green Primary Care Provider [phone] Reason for Visit * Reason Onset Date Comments cs appointment reschedule 11/18/2022 Encounter Details Date Type Department Care Team (Late st Contact Info) Description 11/18/2022 Telephone [facility] Central Scheduling Department [address] [place] [phone] Telephone Intake, Staff cs appointment reschedule Social [...] only come Fri, Friday or . Bella: [phone] Thank you documented in this encounter Plan of Treatment Upcoming Encounters Date Type Department Care Team (Late st Contact Info) Description 08/25/2025 2:00 PM EDT Office Visit [facility] [address] [place] [address] Contract Negotiation Specialist: Kenneth Walsh MD PhD [address] [place] [address] [phone] documented as of this encounter Visit Diagnoses Not on filedocumented in this encounter Care Teams Stunner And Shackler Relationship Specialty Start Date End Date Martin Green [address] [place] [phone] PCP - General Internal Medicine 10/08/18 documented as of this encounter
--- OUTSIDE RECORDS SUMMARY | 2025-04-27 14:35 | XMS_ITS | Clinical Summary ---
Author Organization [facility], Address [address] [place] [address] Phone Care Team Providers Care Sap Solution Manager Consultant Name Role Phone Martin Green MD Primary Care Provider [phone] Allergies Active Allergy Reactions Criticality Noted Date [...] 2 Active cholecalciferol (VITAMIN D-3) 1.25 MG (13162 UT) tablet Take 50,000 Units by mouth [...] [employer] Dual SNP ([id number]) [place] [phone] Care Teams Sap Solution Manager Consultant Relationship Specialty Start Date End Date Martin Green MD [address] [place] [phone] PCP - General 04/13/19
--- OUTSIDE RECORDS SUMMARY | 2025-04-27 14:35 | XMS_ITS | Data Portability ---
Author Organization [employer] [facility], [facility] Address [address] [place] [phone] Care Team Providers Care First Front Ventilator Name Role Phone MELCHOR FALK Primary Care [...] Assessment and Plan as documented by the Gi Technician. I provided real-time medical direction via phone for this encounter, and was available for additional phone based assistance as needed. 63-year-old patient is seen for nausea vomiting malaise inability to tolerate PO. Medic initially attempted to reach me however I was on several other [facility] encounters and after approximately 20 minutes I [...] hemoglobin + hematocrit, blood 2022 023 [facility], [address] [place] [address], [id number] 18:39:50 BMP, serum or plasma [address], [address] 18:40:13 rapid SARS CoV 2 Ag, QL [place], respiratory specimen [address], [address] 10:33:12 Referral None recorded. Procedures None recorded. Surgeries None recorded. Imaging None recorded. Medication Orders ipratropium 0.5 mg-albutero l 3 mg (2.5 mg base)/3 mL nebulizatio n soln 2022 023 [email or web address] [facility], [address] [place], [address], 18:35:11 albuterol sulfate 2.5 mg/3 mL (0.083 %) solution for nebulizatio n 2022 023 [email or web address] [facility], [address] [place], [address], 19:14:45 cefpodoxime 200 mg tablet 2022 [facility], [address] [place], [address], 16:06:57 Patient TargetsNo targets recorded. Patient InstructionsNo [...] Not available Not available Not available 02/25/2023 [id number] SNOMED Not Available [employer] - production 4 03:49:04 3318 Substance with sulfonami de structure and antibacte rial mechanism of action (substanc e) medicatio n anaphylax is Not available [facility] 02/25/2023 56672 8003 SNOMED Chelsea Naidu MD [address] [place] [address],[address], [place], [phone], [employer], [employer] 3 18:24:47 3319 codeine medicatio n anaphylax is Not available [facility] 02/25/2023 2670 RxHoward Naidu MD [address] [place] [address],[address], [place], [address], [employer], [employer] 3 18:25:11 3320 levofloxa gladys medicatio n other Not available [facility] 02/25/2023 [id number] Smiley Naidu MD [address] [place] [address],[address], [place], [phone], [employer] 3 18:26:08 Medications Name Sig Start Date [...] active Not Available Not Available Not Available [facility],000 unit/gram topical powder active Not Available [...] Address Organization Details Last Updated DateTime 3 33938.8 g 97.9 [degF] 152.4 cm 68 /min 14 /min 110/70 mm[Hg] Not Available [employer] 3 15:34:21 Date Recorded Heart rate Body height Oxygen saturation Oxygen saturation in Arterial blood by Pulse oximetry Body weight Body temperature Respiratory rate Systolic And Diastolic Provider Name and Address Organization Details Last Updated DateTime 3 83 /min 157.48 cm 98 % 98 % 69168.7 2 g 97.9 [degF] 16 /min 154/81 mm[Hg] Not Available [employer] 3 18:33:30 Date Recorded Body weight Oxygen saturation Oxygen saturation in Arterial blood by Pulse oximetry Respiratory rate Body height Heart rate Systolic And Diastolic Provider Name and Address Organization Details Last Updated DateTime 3 91424.7 2 g 98 % 98 % 18 /min 157.48 cm 88 /min 168/99 mm[Hg] Not Available [employer] 3 17:07:37 Date Recorded Body weight Heart rate Body temperature Oxygen saturation Oxygen saturation in Arterial blood by Pulse oximetry Respiratory rate Body height Systolic And Diastolic Provider Name and Address Organization Details Last Updated DateTime 3 60225.6 8 g 93 /min 98.4 [degF] 100 % 100 % 18 /min 157.48 cm 138/84 mm[Hg] Not Available [employer] 3 16:49:01 Social History None recorded. Functional Status None recorded. Mental Status None recorded. Family History Nothing Reported. Medical History No medical history recorded. Gynecological HistoryNo gynecological history recorded. Obstetrics History GPAL:G 0 P 0 0 0 0 Past Encounters Encounter ID Performer Location Encounter Start Date Encounter Closed Date Diagnosis/Indication Diagnosis SNOMED-CT Code Diagnosis ICD10 Code Diagnosis IMO Codes Diagnosis Note [id number] Chelsea Naidu MD [facility] [address] [place] [phone] 02/25/2023 15:38:30 02/26/2023 11:50:47 Acute urinary tract infection 914464967 N39.0 [id number] Gil Giang MD Main - [facility] [address] [place] [phone] 03/13/2023 15:34:17 03/18/2023 00:09:10 Community acquired pneumonia 013728492 J18.9 Patient with extensive past medical history [...] but will wait for PCP to draw. [id number] Shane Jean Baptiste MD Main - [facility] [address] [place] [phone] 03/30/2023 18:33:28 03/30/2023 22:56:56 Dyspnea on exertion 63934743 R06.09 As noted, we were called to see this patient regarding concerns of trouble breathing in setting of chronic lung disease. Evaluation in the field was performed by my education analyst colleague, as noted above, I provided real-time [...] symptoms, particular ly worsening shortness of breath. [id number] Deonna Adams MD Main [facility] [address] [place] [phone] 03/31/2023 17:07:35 04/01/2023 09:33:32 Chronic obstructive pulmonary disease 11254068 J44.9 63 year old female with COPD, [...] assessment and plan as documented by the education analyst. I provided real-time medical direction for this encounter and was immediatel y available to provide additional phone-base d assistance as needed. [id number] Janusz Pierre MD [address] [phone] 05/26/2023 16:26:00 05/29/2023 11:45:49 Health Concerns Section Related Observation LastModified by Organization Detai ls LastModified Time None Recorded Concern Status LastModified by Organization Details LastModified Time None Recorded Advance Directives Directive None Recorded Payers Insurance Date Sequence Insurance Name Policy Number Policy Albert Covered Member ID Albert Member ID Guarantor Name 01/21/2025 1 [facility] - DOS ON OR AFTER 2022 - DUAL ELIGIBLE - CARE HOME OPTIONS AND ONE CARE (MEDICARE REPLACEMENT/AD VANTAGE - HMO) Bella Shabazz [id number] Bella Shabazz Notes Date Note Type Note [...] ....................... ....................... ....................... ....................... ....................... ....................... ... Gi Technician Note From Salbador Owens: PT complains of [...] ... Disposition: Fulfilled Chelsea Naidu MD [address] [facility],[address], [place], [phone], [employer] - [employer] 02/25/2023 18:30:31 03/13/2023 [...] ....................... ....................... ....................... ....................... ....................... ....................... ... Gi Technician Note From Sukh Patel: Pt caox3 complains [...] Cough infrequent and productive. Clears airway well. [facility] orders nebulizer, administered as noted. [facility] advises pt to take prescribed prednisone and use nebulizer. I went and picked up her meds so she could take her prednisone MJ. Covid neg via rapid POC. Red flags and pt education discussed. ....................... ....................... ....................... ....................... ....................... ....................... ... Disposition: Fulfilled Gil Giang MD [address] [facility],[address], [place], [phone], [employer] - [email or web address] 03/13/2023 19:15:49 03/30/2023 text/html CRC Nursing Assessment: [...] ....................... ....................... ....................... ....................... ....................... ....................... ... Gi Technician Note From Mark Tapia: Pt reports having small lung disease, MS, CVA, OK. Pt sts she began with a dry cough 3 days ago which became productive last night. Her sew on operator started her on azithromycin and methylprednisolone yesterday. [...] albuterol neb. Pt instructed to f/u with sew on operator and/or PCP tomorrow and to seek emergent medical care for new or worsening sx, which are reviewed with her. ....................... ....................... ....................... ....................... ....................... ....................... ... Disposition: Fulfilled Shane Jean Baptiste MD [address] [place] [address],[address], [place], [phone], [email or web address] 03/30/2023 21:39:32 03/31/2023 text/html HPI: CP reporting SOB>requesting breathing treatment>working on getting a nebulizer but states its been a process. ....................... ....................... ....................... ....................... ....................... ....................... ... [facility] Nursing Assessment: Comments: Members CP calling in to request a visit, member identified via /name. Member requesting neb treatment. [facility] and given a neb treatment. Member with chronic lung disease, on steroids and azithro per her sew on operator. Member is awaiting a neb machine. Member stable per CP, and red flags were discussed. ....................... ....................... ....................... ....................... ....................... ....................... ... Gi Technician Note From Tata Browne: Sent to a call for a follow up visit to administer a neb treatment. SC8 arrives on scene, pt is alert and oriented, airway is patent. Pt states she has MS and small lung disease, and has been on a combination of antibiotics and/or steroids since Feb prescribed by her sew on operator. Pt also states her sew on operator ordered a nebulizer in Feb, but she hasn't received it yet. Pt states [facility] Pt's care team requested another [...] kit is left with pt to use. [facility] consulted and no orders given. Red flags discussed. Pt has no further questions. ....................... ....................... ....................... ....................... ....................... ....................... ... Disposition: Anderson Deonna Adams MD [address] [facility],[address], [place], [phone], [employer] - [employer], [employer] 03/31/2023 21:27:26 05/26/2023 text/html HPI: Yola is a 63 yo female with significant medical hx including MS, Raynaud's disease, HTN, PTSD, Old [place], COPD, chronic pain syndrome, Hypomagnesemia, Hypokalemia, Type [...] and best number to reach Mbr is [phone]. Sent GC activity to CP alerting CP that an [facility] referral was sent in by this CRU RN. ....................... ....................... ....................... ....................... ....................... ....................... ... [facility] Nursing Assessment: Comments: Reviewed - Lorelei GARVEY ....................... ....................... ....................... ....................... ....................... ....................... ... Gi Technician Note From Tata Browne: Sent to a [...] yellow, clear, concentrated; Urine dip: uploaded to [email or web address]. Pt requests IV fluids stating she doesn't think she can drink fluid due to nausea. Pt states Zofran doesn't work for her. Unable to obtain [facility] contact initially. Attempts at IV access unsuccessful. Pt requests transport to ED stating her symptoms will only get worse and she needs IV fluids. 911 called, Pt care transferred to [facility] Dept. Pt transported to [facility] ED. C advised of pt's situation and choice to go to ED. ....................... ....................... ....................... ....................... ....................... ....................... ... Disposition: Fulfilled Janusz Pierre MD [address] [facility],[address], [place], [phone], [employer] - [email or web address] 05/29/2023 11:45:46 OBGyn Episode No OBEpisode recorded.
== END 2025-04-27 05:49 | disposition home or self-care (01) ==
LOC: HO.MMNH2L 05:48
PROVIDERS: Visit Provider Physician Assistant Medical
DX: E11.9 Type 2 diabetes mellitus without complications (principal); I48.91 Unspecified atrial fibrillation
CPT/HCPCS: 36415; 85025

== ENCOUNTER 2025-04-28 06:20 | Outpatient (REF) | payer OTHER, SELFPAY ==
[2025-04-28 07:34] LABS: Anion Gap 14 (12-20); Blood Urea Nitrogen 21 mg/dL (9-16); Calcium 8.9 mg/dL (8.4-10.2); Carbon Dioxide 19 mmol/L (22-29); Chloride 110 mmol/L (96-108); Estimated Glomerular Filt Rate 29; Potassium 3.3 mmol/L (3.3-5.1); Sodium 140 mmol/L (135-145)
== END 2025-04-28 06:21 | disposition home or self-care (01) ==
LOC: HO.MMNH2L 06:20
PROVIDERS: Visit Provider Physician Assistant Medical
DX: E87.6 Hypokalemia (principal)
CPT/HCPCS: 36415; 80048

== ENCOUNTER 2025-05-03 14:20 | Inpatient (IN) | payer OTHER, SELFPAY ==
[2025-05-03] VITALS (23 sets, daily range): BP systolic 81–146; BP diastolic 40–64; PULSE 49–64; RESP 13–23; TEMP 36.4–37.1; O2SAT 94–100; BMI 29.8; BMI 28.9
--- NOTE | ~2025-05-03 | US_ITS ---
EXAMINATION: US KIDNEY BILATERAL HISTORY: PREM vs CKD TECHNIQUE: Real-time grayscale ultrasound imaging of the kidneys was performed and images were reviewed. COMPARISON: Correlation is made with an unenhanced CT of the abdomen dated 05/03/2025. FINDINGS: Right kidney: The right kidney measures 9.8 x 4.8 x 4.3 cm. Renal parenchymal echotexture and thickness are normal. There are no masses. There is no hydronephrosis or renal calculi. Left Kidney: The left kidney measures 10.0 x 3.9 x 3.4 cm. Renal parenchymal echotexture and thickness are normal. There is a 7 x 5 x 7 mm exophytic cyst at the upper pole. There is no hydronephrosis or renal calculi. A small amount of perinephric fluid is noted at the lower pole. US/US renal BI IMPRESSION: 7 mm left renal cyst. Electronically signed by: Nam Langston MD 05/06/2025 07:00 AM [facility]
--- NOTE | ~2025-05-03 | CT_ITS ---
CLINICAL HISTORY: abd pain CT abdomen and pelvis without contrast Comparison: CT/SR - CT ABDOMEN PELVIS WO IV CON - 04/16/25 22:03 EST Findings: Small right pleural effusion and associated atelectatic changes. Moderate cardiomegaly. Status post cholecystectomy. Remainder of the solid organs are within normal limits. Moderate colonic stool burden. Diffuse severe body wall edema as well as mesenteric edema. Small abdominal and pelvic free fluid. Pelvic contents unremarkable. No acute fracture. IMPRESSION: Moderate cardiomegaly, severe diffuse body wall edema as well as mesenteric edema along with small right pleural effusion and small abdominal and pelvic free fluid consistent with fluid overload/CHF. Moderate colonic stool burden. This document has been electronically signed by: Jamie Flores MD on 05/03/2025 22:59:57
--- NOTE | ~2025-05-03 | CT_ITS ---
CLINICAL HISTORY: weakness CT chest without contrast Comparison: None provided Findings: Trace right pleural effusion. Mild pulmonary interlobular septal thickening in the right lung. Mild right basilar atelectasis. Left lung and left pleural space are clear. Normal heart size. No pericardial effusion. Moderate coronary atherosclerotic changes. No consolidation. No acute fracture. IMPRESSION: 1. Trace right pleural effusion with mild interlobular septal thickening in the right lung. Findings could represent pulmonary edema or infectious process. Correlate with CBC and BNP. This document has been electronically signed by: Yuniel Mendoza MD on 05/03/2025 19:52:11
--- NOTE | ~2025-05-03 | US_ITS ---
EXAMINATION: US TRIPLEX LOWER EXTREMITY, BILATERAL CLINICAL INFORMATION: Bilateral lower extremity swelling COMPARISON: None available. TECHNIQUE: Color-flow triplex imaging with spectral analysis and compression Doppler were performed on the bilateral lower extremities. FINDINGS: Respiratory variation, normal compression and augmented flow are noted throughout the bilateral lower extremities. The visualized common femoral vein, superficial femoral vein, profunda femoral vein, popliteal vein and midcalf peroneal and posterior tibial venous segments show no evidence of deep venous thrombosis bilaterally. Edema is visible in the subcutaneous soft tissues of the bilateral lower legs. Left lower extremity: There is a anechoic collection with increased through transmission measuring 4.7 x 1.0 x 1.9 cm in the popliteal fossa without blood flow on color Doppler most consistent with a Duarte's cyst. US/US venous duplex LE BI IMPRESSION: No evidence of deep venous thrombosis involving the bilateral lower extremities. Left Duarte's cyst. Lower leg superficial soft tissue edema. Electronically signed by: Yehuda Woodall MD 05/03/2025 04:36 PM [facility]
--- NOTE | ~2025-05-03 | XR_ITS ---
CLINICAL HISTORY: dyspnea, volume overload Single view of the chest. COMPARISON: XR chest dated 05/03/25 at 15:10 EST FINDINGS: Stable position of left-sided cardiac defibrillator. Borderline cardiomegaly. Atherosclerotic thoracic aorta. Prominence of the central pulmonary vasculature. Low lung volumes. Moderate right pleural effusion, new since prior imaging. No consolidation. No pneumothorax. No acute fracture. IMPRESSION: 1. Low lung volumes. 2. Moderate right pleural effusion, developed since prior imaging. 3. Likely central pulmonary vascular congestion. This document has been electronically signed by: Michael Thrasher MD on 05/09/2025 20:16:05
--- NOTE | ~2025-05-03 | XR_ITS ---
EXAMINATION: XR CHEST CLINICAL INFORMATION: weakness COMPARISON: 04/22/2025 TECHNIQUE: AP view of the chest was obtained. FINDINGS: Left-sided single-lead pacer device present with lead extending into the right ventricle. The cardiac, hilar, and mediastinal contours are normal. Aortic mural calcifications. There is a small layering right pleural effusion with blunting of the right costophrenic angle. There is no left effusion. The lungs are otherwise grossly clear. No consolidation. No focal osseous or soft tissue abnormality. Degenerative changes of both shoulder joints and the spine present. XR/XR chest 1V IMPRESSION: 1. Small right effusion. Otherwise no active lung disease. 2. Single lead left pacer device present. Electronically signed by: Ghanshyam Aguilar MD 05/03/2025 03:19 PM [facility]
--- NOTE | 2025-05-03 14:28 | ED.GENADULT ---
HPI - General Adult General Chief complaint: Recheck/Abnormal Lab/Rx Stated complaint: LOW H & H FROM SNF PER EMS Time Seen by Provider: 05/03/25 14:27 Source: patient and EMS Mode of arrival: EMS Limitations: no limitations History of Present Illness ED Provider: Tali Bowers PA-C HPI narrative: Patient is a 65 year old assigned female at with a history of multiple sclerosis with gradually progressive decline in functional status with spasm disorder, CAD with stenting of the LAD in 2012, SDH, CKD, PE diagnose in 2018 was on Eliquis up until 04/21/2025, CVA, type 2 DM, chronic pain disorder, tachy-dalia syndrome s/p pacemaker placement on 04/21/2025 presenting to the emergency department today with weakness, left knee pain, bilateral lower leg swelling, and abnormal labs from a SNF. Patient states that over the last week she has had worsening bilateral lower leg swelling with generalized weakness and left knee pain. Patient states that she was told by the provider at her SNF that she is dehydrated and has abnormal labs. Patient states that she has been off the Eliquis since 04/21/2025. Patient denies any blood in her stool or any bleeding from an Patient denies any other complaints at this time. Relieving factors: none Exacerbating factors: none Associated symptoms: denies other symptoms Treatments prior to arrival: none Related Data Home Medications ?Medication ?Instructions ?Recorded ?Confirmed amantadine HCl 100 mg capsule 100 mg PO BID 12/13/22 04/17/25 apixaban 5 mg tablet (Eliquis) 5 mg PO BID 12/13/22 04/17/25 Held on 04/22/25. Instructions: Resume on 04/23/25. Resume from a.m. tomorrow brimonidine 0.2 % eye drops 1 drp ophthalmic (eye) BID 12/13/22 04/17/25 dorzolamide 2 % eye drops 1 drp ophthalmic (eye) BID 12/13/22 04/17/25 modafinil 100 mg tablet 100 mg PO BID 12/13/22 04/17/25 montelukast 10 mg tablet 10 mg PO DAILY 12/13/22 04/17/25 promethazine 25 mg tablet 25 mg PO Q6H PRN Nausea 12/13/22 04/17/25 sildenafil (pulm.hypertension) 20 20 mg PO TID 12/13/22 04/17/25 mg tablet albuterol sulfate 2.5 mg/3 mL 2.5 mg inhalation Q6H PRN Wheezing 04/17/25 04/17/25 (0.083 %) solution for nebulization aspirin 81 mg chewable tablet 81 mg PO DAILY 04/17/25 04/17/25 bisacodyl 10 mg rectal suppository 10 mg IN DAILY PRN Constipation 04/17/25 04/17/25 camphor-menthol 0.5 %-0.5 % lotion 1 appl topical BID PRN Itching 04/17/25 04/17/25 dextroamphetamine-amphetamine 30 30 mg PO DAILY 04/17/25 04/17/25 mg tablet (Adderall) dextrose 40 % oral gel (Glucose 15 g PO Q15M PRN fsbs < 50 and 04/17/25 04/17/25 Gel) able to swallow diazepam 5 mg tablet 5 mg PO Q8H PRN Anxiety 04/17/25 04/17/25 diclofenac sodium 1 % topical gel 2 g topical QID 04/17/25 04/17/25 diltiazem HCl 300 mg capsule,24 300 mg PO DAILY 04/17/25 04/17/25 hr,extended release dulaglutide 3 mg/0.5 mL 3 mg subcut TU@0900 04/17/25 04/17/25 subcutaneous pen injector (Trulicity) dupilumab 300 mg/2 mL subcutaneous 300 mg subcut Q2W 04/17/25 04/17/25 syringe (Dupixent) empagliflozin 10 mg tablet 10 mg PO DAILY 04/17/25 04/17/25 (Jardiance) Held on 04/22/25. Instructions: Resume on 04/28/25. Resume after PCP follow-up as she is prone to recurrent UTIs glucagon 1 mg solution for 1 mg subcut Q20M PRN fsbs beloq 60 04/17/25 04/17/25 injection and unable to swallow insulin glargine 100 unit/mL (3 30 unit subcut BEDTIME 04/17/25 04/17/25 mL) subcutaneous pen (Lantus Solostar U-100 Insulin) insulin lispro 100 unit/mL 1 sliding scale dose subcut TIDAC 04/17/25 04/17/25 subcutaneous solution (Humalog U-100 Insulin) ketorolac 0.5 % eye drops 1 drp ophthalmic-Right TID 04/17/25 04/17/25 latanoprost 0.005 % eye drops 1 drp ophthalmic (eye) BEDTIME 04/17/25 04/17/25 levothyroxine 75 mcg tablet 75 mcg PO DAILY@0600 04/17/25 04/17/25 lidocaine 4 % topical patch 2 patch topical DAILY 04/17/25 04/17/25 magnesium hydroxide 400 mg/5 mL 30 ml PO BEDTIME PRN Constipation 04/17/25 04/17/25 oral suspension (Milk of Magnesia) melatonin 5 mg tablet 5 mg PO BEDTIME 04/17/25 04/17/25 metoprolol succinate 50 mg 50 mg PO DAILY 04/17/25 04/17/25 tablet,extended release 24 hr Held on 04/22/25. Instructions: Resume on 04/25/25. Resume based on clinical status at [facility] multivitamin with minerals 1 tab PO DAILY 04/17/25 04/17/25 nystatin 100,000 unit/gram topical 1 appl topical BID 04/17/25 04/17/25 powder pantoprazole 20 mg tablet,delayed 20 mg PO DAILY@0630 04/17/25 04/17/25 release prednisolone acetate 1 % eye 1 drp ophthalmic-Right TID 04/17/25 04/17/25 drops,suspension sodium chloride 7 % for 1 inh inhalation BID 04/17/25 04/17/25 nebulization sodium phosphates 19 gram-7 118 ml IN BEDTIME PRN Constipation 04/17/25 04/17/25 gram/118 mL enema (Fleet Enema) spironolactone 25 mg tablet 25 mg PO DAILY 04/17/25 04/17/25 thiamine HCl (vitamin B1) 100 mg 100 mg PO DAILY 04/17/25 04/17/25 tablet torsemide 20 mg tablet 40 mg PO DAILY 04/17/25 04/17/25 trazodone 50 mg tablet 50 mg PO Q6H PRN Insomnia 04/17/25 04/17/25 Previous Rx's ?Medication ?Instructions ?Recorded acetaminophen 325 mg tablet 975 mg (3 x 325 mg) PO Q6H PRN 11/14/25 Pain, Mild 1-3,Fever,Headache 30 days #90 tabs morphine 15 mg immediate release 15 mg PO Q8H PRN Pain 10 days #10 04/22/25 tablet tabs naloxone 0.4 mg/mL injection 0.04 mg (0.1 mL) IVPUSH Q5M PRN 04/22/25 solution Excessive sedation or RR < 8 30 days #10 mL tramadol 50 mg tablet 50 mg PO Q6H PRN Pain, 04/22/25 Moderate(Pain Scale 4-6) 10 days #14 tabs Allergies Allergy/AdvReac Type Severity Reaction Status Date / Time diphenhydramine (From Allergy Severe Anaphylaxis Verified 05/03/25 14:31 Benadryl) Penicillins Allergy Severe Anaphylaxis Verified 05/03/25 14:31 Sulfa (Sulfonamide Allergy Severe Anaphylaxis Verified 05/03/25 14:31 Antibiotics) Cephalosporins Allergy Intermediate shortness Verified 05/03/25 14:31 of breath (can take cephalexin) clarithromycin Allergy Intermediate Shortness Verified 05/03/25 14:31 of Breath gabapentin Allergy Intermediate Confusion Verified 05/03/25 14:31 hydrochlorothiazide (From Allergy Intermediate Shortness Verified 05/03/25 14:31 Hyzaar) of Breath levofloxacin (From Levaquin) Allergy Intermediate dizziness/h Verified 05/03/25 14:31 eadache/ulices sea losartan (From Cozaar) Allergy Intermediate Shortness Verified 05/03/25 14:31 of Breath metformin Allergy Intermediate strange Verified 05/03/25 14:31 feeling amoxicillin (From Augmentin) Allergy Unknown Unknown Verified 05/03/25 14:31 clavulanic acid (From Allergy Unknown Unknown Verified 05/03/25 14:31 Augmentin) duloxetine (From Cymbalta) Allergy Unknown Unknown Verified 05/03/25 14:31 fluoxetine Allergy Unknown Unknown Verified 05/03/25 14:31 NSAIDS (Non-Steroidal Allergy Unknown Unknown Verified 05/03/25 14:31 Anti-Inflamma pregabalin AdvReac Intermediate Dizziness Verified 05/03/25 14:31 doxycycline AdvReac Mild Gastrointestinal Verified 05/03/25 14:31 Upset Review of Systems Constitutional: Constitutional: Reports as per HPI Eyes: Eyes: Reports as per HPI ENT: Reports as per HPI Cardiovascular: Cardiovascular: Reports as per HPI Respiratory: Respiratory: Reports as per HPI Gastrointestinal: Gastrointestinal: Reports as per HPI Genitourinary: Genitourinary: Reports as per HPI Musculoskeletal: Musculoskeletal: Reports as per HPI Integumentary/Breasts: Skin/Breast: Reports as per HPI Neurologic: Reports as per HPI Psychiatric: Psychiatric: Reports as per HPI Endocrine: Endocrine: Reports as per HPI Hematologic/Lymphatic: Hematologic/Lymphatic: Reports as per HPI Allergic/Immunologic: Allergic/Immunologic: Reports as per HPI [facility] Past Medical History Attestation statement: The following information was validated with the patient. Source: old records reviewed and nursing notes reviewed Medical History CAD (coronary artery disease) Heart valve regurgitation Gitelman syndrome Polycystic ovarian syndrome Myocardial infarction Sleep apnea Fibromyalgia COPD (chronic obstructive pulmonary disease) Mild asthma Orthostatic hypotension Raynaud's disease Atrial fibrillation Pulmonary embolism Coronary atherosclerosis HTN (hypertension) Neuropathy Multiple sclerosis Chronic pain syndrome PTSD (post-traumatic stress disorder) Opioid dependence Depression Hypercalcemia Elevated cholesterol Type 2 diabetes mellitus Thyroid nodule Hypothyroid Surgical History Hx of reduction mammoplasty Hx of tubal ligation Hx of hernia repair History of rectal surgery History of colon resection S/P panniculectomy History of lobectomy of thyroid Hx of hysterectomy Hx of appendectomy Hx of dilation and curettage Hx of heart artery stent Social History Social History Household Members: Children and Other Household Members Other:: son Housing: Apartment Are you a primary ambulatory care coordinator to a significant other at home: No Do you presently have visiting nurse or other home services: No Patient Tobacco Use Status: Former Tobacco user Tobacco use type: Cigarette Smoked in Last 30 Days: No Use of substances other than those prescribed or required for medical reasons: No Advance Directives: No Advance Directives Information Provided: No Do you have a plan to hurt others: No Plan service: No Physical Exam ED Vital Signs: Vital Signs - 24 hr 05/03/25 14:29 05/03/25 14:59 05/03/25 15:34 Temperature 97.9 F Pulse Rate 54 49 L 50 Respiratory Rate 16 13 16 Blood Pressure 99/46 L 87/64 L 84/51 L Pulse Oximetry 95 97 Oxygen Delivery Method Room Air Room Air 05/03/25 16:14 05/03/25 16:33 05/03/25 17:05 Temperature 97.7 F 97.8 F Pulse Rate 53 50 50 Respiratory Rate 14 15 15 Blood Pressure 85/45 L 81/45 L 108/48 L Pulse Oximetry 95 Oxygen Delivery Method Room Air 05/03/25 17:57 05/03/25 18:25 05/03/25 19:14 Temperature 97.9 F 97.6 F Pulse Rate 50 53 53 Respiratory Rate 16 16 15 Blood Pressure 100/52 L 90/44 L 89/50 L Pulse Oximetry 95 95 Oxygen Delivery Method Room Air Room Air 05/03/25 19:29 05/03/25 20:18 Temperature Pulse Rate 57 Respiratory Rate Blood Pressure 96/54 L 91/40 L Pulse Oximetry Oxygen Delivery Method BMI result Body Mass Index 29.8 Const General: cooperative, no acute distress, alert and awake Nutritional Appearance: well nourished Orientation/consciousness: patient oriented x3 HENMT Head: Yes normal to inspection and Yes atraumatic Ears: hearing grossly normal bilaterally and external ears normal General nose exam: Normal external nose present, no nasal discharge noted and no epistaxis Face and sinus: Yes normal facial exam, No abrasion and No laceration Mouth: Normal oral and palatal mucosa present, no drooling and no muffled voice Eyes General: appearance normal, both eyes and all related structures Periorbital: periorbital findings normal Eyelids: Yes eyelids normal Conjunctivae: conjunctivae normal Pupils: Equal, round and reactive pupils present EOM: EOMs intact bilaterally Neck Neck: Yes normal visual inspection and Yes full ROM Resp Effort & Inspection: normal respiratory effort and able to speak in complete sentences Cardio Other: bilateral lower leg edema 2+ Neuro General: patient oriented x3, moves all extremities and CN's II-XI intact bilaterally Cranial nerves: Yes Equal, round and reactive pupils present Cognition (Neuro): normal cognition Extrem Other: pain with left knee palpation and ROM General: Yes normal to inspection, Yes full ROM and Yes capillary refill normal Psych Appearance: grossly normal Mental Status: mental status grossly normal Affect: normal affect Attitude: cooperative Thought process: Normal thought process present Thought content: Normal thought content present Insight: Good insight present (Psych) Course Course Course Narrative: 8:22 PM 05/03/2025 (Ting Ho Hernandez DO): Patient was signed out to me pending stabilization of her blood pressure. We did give patient some albumin, unit of blood, 250 cc IV fluid. I gave her additional 250 cc IV fluid. Blood pressure did improve briefly to low 100 systolic. However patient's blood pressure began to drop further more in the upper 80s systolic. I did review patient's procedure with the pacemaker it is a single chamber Burden pacemaker. I did not appreciate any signs of obvious hematoma on external exam of the pacemaker. CT chest was obtained to evaluate for any large hematoma in her chest underneath. Did not appreciate this on CT imaging on review. Patient's has been drop in her hemoglobin since the beginning of April. I did discuss the case with Dr. Youngblood ICU attending. We will recommends giving the patient a total of 2 L IV fluid for resuscitation. This was initiated for the patient at this time. However this was stopped shortly after the patient was complaining of increased shortness of breath. Patient stated that she feels like she is drowning. Plan to start patient on Levophed. Blood pressure remained hypotensive at this time. Patient will be admitted to the ICU. Medications Administered Generic Name Dose Route Start Last Admin Trade Name Freq PRN Reason Stop Dose Admin Sodium Chloride 250 mls @ 250 mls/hr 05/03/25 19:45 05/03/25 20:19 Ns IV 05/03/25 20:44 Infused .Q1H ROBERT Infusion Sodium Chloride 1,000 mls @ 999 mls/hr 05/03/25 20:00 05/03/25 20:19 Ns IV 05/03/25 21:30 Not Given .Q1H1M ROBERT Norepinephrine Bitartrate 8 mg in 250 mls @ 0 mls/hr 05/03/25 20:15 05/03/25 20:18 Levophed IVCONT 0.05 mcg/kg/min .Q0M ROBERT 6.93 mls/hr Protocol Administration Per Protocol Discontinued Medications Generic Name Dose Route Start Last Admin Trade Name Freq PRN Reason Stop Dose Admin Albumin Human 50 mls @ 100 mls/hr 05/03/25 16:25 05/03/25 17:56 Kedbumin 25 % IV 05/03/25 16:54 Infused ONCE ONE Infusion Lactated Ringer's 250 mls @ 999 mls/hr 05/03/25 16:45 11/25/25 18:25 Lr IV 05/03/25 17:00 Infused .Q16M ROBERT Infusion Medical Decision Making Medical Decision Making [facility] [place] Narrative: Patient is a 65 year old assigned female at with a history of multiple sclerosis with gradually progressive decline in functional status with spasm disorder, CAD with stenting of the LAD in 2012, SDH, CKD, PE diagnose in 2018 was on Eliquis up until 04/21/2025, CVA, type 2 DM, chronic pain disorder, tachy-dalia syndrome s/p pacemaker placement on 04/21/2025 presenting to the emergency department today with weakness, left knee pain, bilateral lower leg swelling, and abnormal labs from a SNF. Patient's physical exam was as noted in the physical exam portion of this note. Patient's blood work showed a hgb of 7.5, hct of 24.3, CR of 2.97, [place] 33[place] [address].5. Patient's EKG showed a ventricular paced rhythm. Patient's chest x-ray showed a small right pleural effusion. Patient's bilateral lower extremity US showed a left duarte's cyst but no evidence of DVT Patient was intermittently hypotensive while in the department which I believe is secondary to fluid depletion given her physical exam shows evidence of dehydration (dry mouth / skin) and her worsening PREM. I initially spoke with Dr. Diallo about this patient who recommended transfusion with 1 unit of pRBCs. I then spoke with Dr. Hernandez about this patient after Dr. Diallo signed out to him and he recommended giving a small IV bolus of fluids + albumin to address her hypotension. Patient was given 1 unit of pRBCs, IV albumin, and IV fluid which did improve her blood pressure. Given patient's anemia, evidence of CHF exacerbation, and PREM in the setting of CKD - the patient should be admitted. Dr. Hernandez recommended a dry CT scan of the chest - ordered and pending. Patient signed out to Dr. Hernandez pending consistently stable blood pressures for floor admission vs. ICU admission for continued hypotension. Differential Diagnosis Differential Diagnoses: The differential diagnosis associated with the presentation includes PREM in the setting of CKD Anemia Dehydration Admission/Observation Consideration of admission/observation: Escalation of care including admission/observation considered Patient's disposition will be determined after re-evaluation, CT chest, and fluid boluses. Lab Data [facility] [place] Lab Attestation statement: I reviewed the patient's lab results. My interpretation of these results are in the [facility] [place] Rationale portion of this note. 05/03/25 14:51 05/03/25 14:51 Labs: Lab Results 05/03/25 05/03/25 Range/Units 14:51 14:54 WBC 7.0 (4.8-10.8) X10*3/uL RBC 2.69 L (4.20-5.50) X10*6/uL Hgb 7.5 L (12.0-16.0) g/dl Hct 24.3 L (37.0-47.0) % MCV 90.3 (80.0-98.0) fL MCH 27.9 (27.0-33.0) pg MCHC 30.9 L (31.0-35.0) g/dl RDW 18.5 H (11.0-16.0) % Plt Count 231 (160-400) X10*3/uL MPV 10.0 (9.4-12.3) fL Immature Gran % (Auto) 1.1 H (0.0-0.4) % Neut % (Auto) 71.2 (45-73) % Lymph % (Auto) 13.3 L (20-40) % [place] % (Auto) 10.5 (2-11) % Eos % (Auto) 2.9 (0-4) % Baso % (Auto) 1.0 (0-2) % Lymph # (Auto) 0.9 L (1.2-4.9) X10*3/uL [place] # (Auto) 0.7 (0.1-1.2) X10*3/uL Eos # (Auto) 0.2 (0.0-0.4) X10*3/uL Baso # (Auto) 0.1 (0.0-0.2) X10*3/uL Abs Immat Gran (auto) 0.08 H (0.00-0.03) X10*3/uL Absolute Neuts (auto) 5.0 (2.0-8.3) x10*3/uL Absolute Nucleated RBC 0.000 (0.0-0.012) X10*3/uL Nucleated RBC % (auto) 0.0 (0.0-0.2) /100WBC PT 15.6 H (11.2-13.5) SEC INR 1.3 H (0.9-1.1) Sodium 139 (135-145) mmol/L Potassium 3.6 (3.3-5.1) mmol/L Chloride 106 (96-108) mmol/L Carbon Dioxide 22 (22-29) mmol/L Anion Gap 15 (12-20) BUN 33 H (9-16) mg/dL Creatinine 2.97 H (0.5-1.4) mg/dL Estim Creat Clear Calc 17.3 Estimated GFR 16 Random Glucose 87 (60-115) mg/dL Calcium 8.7 D (8.4-10.2) mg/dL Magnesium 1.6 (1.6-2.6) mg/dL Total Bilirubin 0.5 (0.0-1.0) mg/dL AST 26 (5-31) U/L ALT 10 (0-31) U/L Alkaline Phosphatase 259 H (39-117) U/L Troponin I High Sens 5.8 (<3.5-17.0) ng/L NT-Pro-B Natriuret Pep 24607.5 H (<300) pg/mL Total Protein 6.6 (6.5-8.0) g/dL Albumin 3.7 (3.5-5.0) g/dL Influenza Type A (PCR) NEGATIVE (Negative) Influenza Type B (PCR) NEGATIVE (Negative) RSV RNA Qual (PCR) NEGATIVE (Negative) SARS-CoV-2 RNA (RT-PCR) NEGATIVE (Negative) Blood Type A Positive Antibody Screen NEGATIVE Crossmatch See Detail Independent Interpretation I performed an independent interpretation of an: EKG, Plain X-Ray and Ultrasound Interpretation: My interpretation is in agreement with the radiologist's impression of these imaging studies as written below. EXAMINATION: XR CHEST CLINICAL INFORMATION: weakness COMPARISON: 04/22/2025 TECHNIQUE: AP view of the chest was obtained. FINDINGS: Left-sided single-lead pacer device present with lead extending into the right ventricle. The cardiac, hilar, and mediastinal contours are normal. Aortic mural calcifications. There is a small layering right pleural effusion with blunting of the right costophrenic angle. There is no left effusion. The lungs are otherwise grossly clear. No consolidation. No focal osseous or soft tissue abnormality. Degenerative changes of both shoulder joints and the spine present. XR/XR chest 1V IMPRESSION: 1. Small right effusion. Otherwise no active lung disease. 2. Single lead left pacer device present. Electronically signed by: Ghanshyam Aguilar MD 05/03/2025 03:19 PM EST RP Dictated By: Ghanshyam Aguilar MD Signed By: Electronically signed by Ghanshyam Aguilar MD 05/03/25 1519 EXAMINATION: US TRIPLEX LOWER EXTREMITY, BILATERAL CLINICAL INFORMATION: Bilateral lower extremity swelling COMPARISON: None available. TECHNIQUE: Color-flow triplex imaging with spectral analysis and compression Doppler were performed on the bilateral lower extremities. FINDINGS: Respiratory variation, normal compression and augmented flow are noted throughout the bilateral lower extremities. The visualized common femoral vein, superficial femoral vein, profunda femoral vein, popliteal vein and midcalf peroneal and posterior tibial venous segments show no evidence of deep venous thrombosis bilaterally. Edema is visible in the subcutaneous soft tissues of the bilateral lower legs. Left lower extremity: There is a anechoic collection with increased through transmission measuring 4.7 x 1.0 x 1.9 cm in the popliteal fossa without blood flow on color Doppler most consistent with a Duarte's cyst. US/US venous duplex LE BI IMPRESSION: No evidence of deep venous thrombosis involving the bilateral lower extremities. Left Duarte's cyst. Lower leg superficial soft tissue edema. Electronically signed by: Yehuda Woodall MD 05/03/2025 04:36 PM EST RP Dictated By: Yehuda Woodall MD Signed By: Electronically signed by Yehuda Woodall MD 05/03/25 1636 I independently interpreted this EKG and am in agreement with the below findings: Vent. Rate: 50 BPM Atrial Rate: 49 BPM P-R Int: * ms QRS Dur: 174 ms QT Int: 514 ms P-R-T Axes: * 117 -27 degrees QTcB Int: 468 ms Ventricular-paced rhythm When compared with ECG of 22-Apr-2025 11:07, Previous ECG has undetermined rhythm, needs review Electronically Signed By: Franklin Ayers Dictated By: Franklin Ayers MD Signed By: Electronically signed by Franklin Ayers MD 05/03/25 1538 Radiology Impression Discussion of test interpretation with radiology: I have reviewed the radiologist's reading. Independent Historian Clinical information obtained from an independent historian. History obtained from or confirmed by: EMS (EMS provided additional history and confirmed the history provided by the patient. ) and Other (Patient's son provided additional history and confirmed the history provided by the patient. ) External Record Review External record reviewed: Inpatient record (reviewed all inpatient records from last visit ) Critical Care Time Critical Care Time Critical Care Time: Yes Total Critical Care Time: 66 Attestation: I spent 66 minutes of Critical Care Time with this patient. This does not include time spent on separately reported billable procedures. Discharge Plan Discharge Clinical Impression: Acute hypotension, Anemia Patient Disposition: Admitted As Inpatient Print Language: Sami
--- NOTE | 2025-05-03 14:45 | ECG_ITS ---
Test Reason : WEAKNESS Blood Pressure : */* mmHG Vent. Rate : 50 BPM Atrial Rate : 49 BPM P-R Int : * ms QRS Dur : 174 ms QT Int : 514 ms P-R-T Axes : * 117 -27 degrees QTcB Int : 468 ms Ventricular-paced rhythm Abnormal ECG When compared with ECG of 22-Apr-2025 11:07, Previous ECG has undetermined rhythm, needs review Referred By: Tali Bowers Electronically Signed By: Franklin Ayers
[2025-05-03 15:00] LABS: MANUAL DIFF FLAG NO
[2025-05-03 15:01] LABS: Hematocrit 24.3 % (37.0-47.0); Hemoglobin 7.5 g/dl (12.0-16.0); Imm Gran Abs Auto 0.08 X10*3/uL (0.00-0.03); Imm Gran Pct Auto 1.1 % (0.0-0.4); Lymphocytes Absolute Auto 0.9 X10*3/uL (1.2-4.9); Mean Corpuscular HGB Conc 30.9 g/dl (31.0-35.0); Mean Corpuscular Hemoglobin 27.9 pg (27.0-33.0); Mean Corpuscular Volume 90.3 fL (80.0-98.0); NRBC Abs Auto 0.000 X10*3/uL (0.0-0.012); NRBC Pct Auto 0.0 /100WBC (0.0-0.2); Platelet Count 231 X10*3/uL (160-400); Red Blood Count 2.69 X10*6/uL (4.20-5.50); White Blood Count 7.0 X10*3/uL (4.8-10.8)
[2025-05-03 15:15] LABS: INTERNATIONAL NORM RATIO 1.3 (0.9-1.1); Prothrombin Time 15.6 SEC (11.2-13.5)
[2025-05-03 15:22] LABS: Alanine Aminotransferase 10 U/L (0-31); Albumin Level 3.7 g/dL (3.5-5.0); Alkaline Phosphatase 259 U/L (39-117); Anion Gap 15 (12-20); Aspartate Amino Transferase 26 U/L (5-31); Blood Urea Nitrogen 33 mg/dL (9-16); Calcium 8.7 mg/dL (8.4-10.2); Carbon Dioxide 22 mmol/L (22-29); Chloride 106 mmol/L (96-108); Creatinine Clr Calc Pharmacy 17.3; Estimated Glomerular Filt Rate 16; Magnesium 1.6 mg/dL (1.6-2.6); Potassium 3.6 mmol/L (3.3-5.1); Sodium 139 mmol/L (135-145); Total Protein 6.6 g/dL (6.5-8.0)
[2025-05-03 15:32] LABS: Troponin-I High Sensitivity 5.8 ng/L (<3.5-17.0)
[2025-05-03 15:44] LABS: Resp Syncy Virus RNA Qual PCR NEGATIVE (Negative); SARS COV2 PCR INHOUSE NEGATIVE (Negative)
[2025-05-03] MEDS: Albumin Human 25 % 50 ML 100 ML IV (16:38)
[2025-05-03] MEDS: Lactated Ringers 250 ML 999 ML IV (17:01)
--- NOTE | 2025-05-03 17:04 | PC.NURSE ---
250 ccs LR ordered as bolus, 250 taken out of 500cc bag and hung per order.
--- NOTE | 2025-05-03 18:04 | PC.NURSE ---
Late entry Per provider Tali's request, blood is running at lowest possible rate d/t patient's volume status.
--- NOTE | 2025-05-03 18:40 | PC.NURSE ---
Provider Dr. Hernandez made aware pt's pressure continues to be low. Dr. Hernandez to chart review and proceed from there
--- OUTSIDE RECORDS SUMMARY | 2025-05-03 19:13 | XMS_ITS | Encounter Summary ---
Author Organization [facility] Address [address] [place] [address] Phone Care Team Providers Care Orthodontic Technician Assistant Name Role Phone Noe Mccann MD Unavailable Unavailable Audra Gutierrez MD Unavailable Edouard Mosley MD Unavailable Nara Tejada MD Unavailable [phone] Jose Thomas MD Unavailable [phone] Trish Hammonds MD Unavailable Celina He DPEvelin Unavailable [phone] Elizabeth Goode MD Unavailable [phone] Griselda Bello OFFICE INSPECTOR Primary Care Provider [phone] Encounter Details Date Type Department Care Team (Late st Contact Info) Description 03/24/2025 Procedure Pass [facility] Cardiac US [address] [place] [address] Social History Tobacco Use Types Packs/Day Years [...] 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 Not on file documented as of this encounter Plan of Treatment Upcoming Encounters Date Type Department Care Team ([facility] st Contact Info) Description 04/28/2025 Procedure Pass Non-Invasive Cardiology [address] [place] [address] 05/12/2025 1:00 PM EST Appointment Non-Invasive Cardiology [address] [place] [address] [place] [address] Tano Dueñas MD [address] [place] [address] 07/29/2025 1:00 PM EST Office Visit [facility] [address] [place] [address] 3rd Floor, [address] [place] [address] Minda Nelson DNP [address] [place] [address] 08/31/2025 11:50 AM EDT Office Visit [facility] All[facility] Critical [facility] [address] [place] [address] Audra Gutierrez MD [address] [place] [address] 2nd [place] [address] documented as of this encounter Visit Diagnoses [...] documented as of this encounter Care Teams Orthodontic Technician Assistant Relationship Specialty Start Date End Date AceGriseldaGAEL fine [address] [place] [address] PCP - General Nurse Practitioner 01/26/25 Noe Mccann MD Ophthalmology 02/11/19 Audra Gutierrez MD [address] [place] [address] 2nd [place] [address] [email or web address] Intensive Care 02/11/19 Edouard Mosley MD [address] [place] [address] [email or web address] Plastic and Reconstructive Surgery 02/11/19 Nara Tejada MD [address] [place] [address], 3 [place] [address] [email or web address] Consulting Provider Nephrology 02/11/19 Jose Thomas MD [address] [place] [address] [email or web address] Consulting Provider Infectious Diseases 02/11/19 Trish Hammonds MD [address] [place] [address] [email or web address] Rheumatology 02/11/19 Celina He DPM [address] [place] [address] [place] [address] Podiatry 02/11/19 Elizabeth Goode MD [address] [facility] 200 [place] [address] Psychologist 03/27/20 documented as of this encounter Additional Source Comments The information contained in this document represents components of the legal health record. It is not the complete legal health record.[facility]
--- OUTSIDE RECORDS SUMMARY | 2025-05-03 19:13 | XMS_ITS | Encounter Summary ---
Author Organization [facility] Address [address] [facility] [place] [address] Phone Care Team Providers Care Ornamental Ironworking Supervisor Name Role Phone Noe Mccann MD Unavailable Unavailable Audra Gutierrez MD Unavailable [phone] Edouard Mosley MD Unavailable Nara Tejada MD Unavailable Jose Thomas MD Unavailable [phone] Trish Hammonds MD Unavailable Celina He DPM Unavailable Elizabeth Goode MD Unavailable Griselda Bello ARTIFICIAL FLOWERS SUPERVISOR Primary Care Provider [phone] Encounter Details Date Type Department Care Team (Late st Contact Info) Description 04/03/2025 Procedure Pass [facility] [place], Josh 2 [address] [facility], 2nd Floor, [address] [place] [address] Social History Tobacco Use Types Packs/Day Years [...] 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 Not on file documented as of this encounter Plan of Treatment Upcoming Encounters Date Type Department Care Team ([facility] st Contact Info) Description 04/28/2025 Procedure Pass Non-Invasive Cardiology [address] [place] [address] 05/12/2025 1:00 PM EST Appointment Non-Invasive Cardiology [address] [place] [address] [place] [address] Tano Dueñas MD [address] [place] [address] 07/29/2025 1:00 PM EST Office Visit [facility] [address] [place] [address] 3rd Floor, [address] [place] [address] Minda Nelson, ESTRELLITA [address] [place] [address], [address] [address] 08/31/2025 11:50 AM EDT Office Visit [facility], All[facility] Critical [facility] [address] [place] [address] Audra Gutierrez MD [address] [place] [address] documented as of this encounter Visit Diagnoses Not on filedocumented in this encounter Additional Health Concerns 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 04/10/2025 04/10/2025 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 Assessment Noted Time PHQ-9 Depression Total Score: 20 021 1:11 PM EDT PHQ-2 Depression Total Score: 6 01/16/20 21 1:11 PM EDT documented as of this encounter Care Teams Ornamental Ironworking Supervisor Relationship Specialty Start Date End Date Ace Griselda GAEL Cancino [address] [place] [address] PCP - General Nurse Practitioner 01/26/25 Noe Mccann MD Ophthalmology 02/11/19 Audra Gutierrez MD [address] [place] [address] 2nd [place] [address] [email or web address] Intensive Care 02/11/19 Edouard Mosley MD [address] [place] [address], [address] [address] [email or web address] Plastic and Reconstructive Surgery 02/11/19 Nara Tejada MD [address] [place] [address], 3 [place] [address] [email or web address] Consulting Provider Nephrology 02/11/19 Jose Thomas MD [address] [place] [address] [email or web address] Consulting Provider Infectious Diseases 02/11/19 Trish Hammonds MD [address] [place] [address], [address] [address] [email or web address] Rheumatology 02/11/19 Celina He DPM 22 [facility], [address] [place] [address] Podiatry 02/11/19 Elizabeth Goode MD [address] [place] [address] 200 [place] [address] Psychologist 03/27/20 documented as of this encounter Additional Source Comments The information contained in this document represents components of the legal health record. It is not the complete legal health record.[facility]
--- OUTSIDE RECORDS SUMMARY | 2025-05-03 19:13 | XMS_ITS | Encounter Summary ---
Author Organization [facility] Address [address] [facility] [address] [place] [address] Phone Care Team Providers Care Forest And Conservation Worker Name Role Phone Noe Mccann MD Unavailable Unavailable Audra Gutierrez MD Unavailable Edouard Mosley MD Unavailable Nara Tejada MD Unavailable [phone] Jose Thomas MD Unavailable [phone] Trish Hammonds MD Unavailable Celina He DPM Unavailable [phone] Elizabeth Goode MD Unavailable [phone] Griselda Bello SHIP SELF DEFENSE SYSTEM MK1 OPERATOR Primary Care Provider [phone] Encounter Details Date Type Department Care Team (Late st Contact Info) Description 03/26/2025 Procedure Pass [facility] CT, Josh [address] [facility], 2nd Floor, [address] [place] [address] Social History Tobacco Use Types Packs/Day Years [...] you interested in more education? Not on lcuius e 10/04/2022 Are you concerned about learning? 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 Not on file documented as of this encounter Plan of Treatment Upcoming Encounters Date Type Department Care Team ([facility] st Contact Info) Description 04/28/2025 Procedure Pass Non-Invasive Cardiology [address] [place] [address] 05/12/2025 1:00 PM EST Appointment Non-Invasive Cardiology [address] [place] [address] [place] [address] Tano Dueñas MD [address] [place] [address] 07/29/2025 1:00 PM EST Office Visit [facility] [address] [place] [address] 3rd Floor, [address] [place] [address] Minda Nelson, ESTRELLITA [address] [place] [address], [address] [address] 08/31/2025 11:50 AM EDT Office Visit [facility] 10 [place] [address] Audra Gutierrez MD [address] [place] [address] documented as of this encounter Visit Diagnoses [...] documented as of this encounter Care Teams Forest And Conservation Worker Relationship Specialty Start Date End Date Griselda Bello NP [address] [place] [address] PCP - General Nurse Practitioner 01/26/25 Noe Mccann MD Ophthalmology 02/11/19 Audra Gutierrez MD [address] [place] [address] [email or web address] Intensive Care 02/11/19 Edouard Mosley MD [address] [place] [address] [email or web address] Plastic and Reconstructive Surgery 02/11/19 Nara Tejada MD [address] [place] [address], 3 [place] [address] [email or web address] Consulting Provider Nephrology 02/11/19 Jose Thomas MD [address] [place] [address] [email or web address] Consulting Provider Infectious Diseases 02/11/19 Trish Hammonds MD [address] [place] [address], [address] [place] [address] [email or web address] Rheumatology 02/11/19 Celina He DPM [address] [place] [address], [address] [place] [address] [email or web address] Podiatry 02/11/19 Elizabeth Goode MD [address] [facility] 200 [place] [address] Psychologist 03/27/20 documented as of this encounter Additional Source Comments The information contained in this document represents components of the legal health record. It is not the complete legal health record.[facility]
--- OUTSIDE RECORDS SUMMARY | 2025-05-03 19:13 | XMS_ITS | Encounter Summary ---
Author Organization [facility] Address [address] [facility] [address] [place] [address] Phone Care Team Providers Care Attendant Sales Name Role Phone [place] Bales MD Unavailable Jose Gallagher MD Unavailable [phone] Ramiro Schmidt MD Unavailable Enio Starkey MD Unavailable [phone] Kenneth Carter MD Unavailable Noe Mccann MD Unavailable Unavailable Audra Gutierrez MD Unavailable Edouard Mosley MD Unavailable [place] Green MD Primary Care Provider Nara Tejada MD Unavailable Jose Thomas MD Unavailable [phone] Trish Hammonds MD Unavailable Celina He DPM Unavailable [phone] Fabián Seaman MD Unavailable [phone] Elizabeth Goode MD Unavailable [place] Green MD Primary Care Provider [phone] [place] Green MD Primary Care Provider +- Griselda Bello NP Primary Care Provider + [phone] Encounter Details Date Type Department Care Team (Late st Contact Info) Description 05/19/2019 Transcribe Orders [facility] Pulmonary, Allergy and Critical Care Medicine 30 [place] [address] Audra Gutierrez MD [address] [place] [address] 2nd [place] [address] [email or web address] Social History Tobacco Use Types Packs/Day Years [...] 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 Not on file documented as of this encounter Plan of Treatment Upcoming Encounters Date Type Department Care Team (Late Contact Info) Description 04/28/2025 Procedure Pass Non-Invasive Cardiology [address] [place] [address] [place] [address] 05/12/2025 1:00 PM EST Appointment Non-Invasive Cardiology [address] [place] [address] [place] [address] Tano Dueñas MD [address] [facility], [address] [place] [address] [email or web address] 07/29/2025 1:00 PM EST Office Visit [facility] [address] [place] [address] 3rd Floor, [address] [place] [address] Minda Nelson, ESTRELLITA [address] [place] [address] [address] [place] [address] [email or web address] 08/31/2025 11:50 AM EDT Office Visit [facility], Allergy and Critical Care Medicine 10 [facility] [place] [address] Audra Gutierrez MD 10 [facility] 2nd [place] [address] [email or web address] documented as of [...] as of this encounter Care Teams Attendant Sales Relationship Specialty Start Date End Date [place] Green MD [address] [place] [address], [address] [address] [email or web address] PCP - General Internal Medicine 02/11/19 04/11/20 [place] Green MD [address] [place] [address], [address] [address] [email or web address] PCP - General Internal Medicine 04/12/20 05/25/23 [place] Green MD [address] [place] [email or web address] PCP - General Internal Medicine 05/26/23 01/25/25 Griselda Bello NP [address] [place] [address] PCP - General Nurse Practitioner 01/26/25 [place] Bales MD [address] [place] [address] [email or web address] Gastroenterology 10/07/18 11/13/20 Jose Gallagher MD [address] [place] [address], [address] [place] [address] [email or web address] Urology 10/07/18 11/13/20 Ramiro Schmidt MD [address] [place] [address], [address] [place] [address] [email or web address] Endocrinology 02/11/19 11/13/20 [place] [address] [place] [address], [address] [place] [address] [email or web address] Cardiology 02/11/19 11/13/20 Kenneth Carter MD [address] [place] [address] Neurology 02/11/19 11/13/20 Noe Mccann MD Ophthalmology 02/11/19 Audra Gutierrez MD [address] [place] [address] 2nd [place] [address] [email or web address] Intensive Care 02/11/19 Edouard Mosley MD [address] [place] [address], [address] [place] [address] [email or web address] Plastic and Reconstructive Surgery 02/11/19 Nara Tejada MD [address] [place] [address], [address] [place] [address] [email or web address] Consulting Provider Nephrology 02/11/19 Jose Thomas MD [address] [place] [address] [email or web address] Consulting Provider Infectious Diseases 02/11/19 Trish Hammonds MD [address] [place] [address], [address] [place] [address] Rheumatology 02/11/19 Celina He DPM [address] [place] [address], [address] [place] [address] Podiatry 02/11/19 Fabián Seaman MD 22 [facility], [address] [place] [address] Insurance Assigned Provider 03/06/19 07/09/19 Elizabeth Goode MD [address] [place] [address] 200 [place] [address] Psychologist 03/27/20 documented as of this encounter Additional Source Comments The information contained in this document represents components of the legal health record. It is not the complete legal health record.[facility]
--- OUTSIDE RECORDS SUMMARY | 2025-05-03 19:13 | XMS_ITS | Encounter Summary ---
Author Organization [facility] Address [address] [place] [address] [address] [place] [address] Phone Care Team Providers Care Family Caseworker Name Role Phone Noe Mccann MD Unavailable Unavailable Audra Gutierrez MD Unavailable [phone] Edouard Mosley MD Unavailable Nara Tejada MD Unavailable [phone] Jose Thomas MD Unavailable [phone] Trish Hammonds MD Unavailable Celina He DPEvelin Unavailable [phone] Elizabeth Goode MD Unavailable [phone] Griselda Bello INDUSTRIAL PARAMEDIC Primary Care Provider [phone] Encounter Details Date Type Department Care Team (Late st Contact Info) Description 03/31/2025 Procedure Pass [facility] Emergency Imaging, [address], Floor 1 [place] [address] Social History Tobacco Use Types Packs/Day Years [...] 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 file documented as of this encounter Plan of Treatment Upcoming Encounters Date Type Department Care Team ([facility] st Contact Info) Description 04/28/2025 Procedure Pass Non-Invasive Cardiology [address] [place] [address] [place] [address] 05/12/2025 1:00 PM EST Appointment Non-Invasive Cardiology [address] [place] [address] [place] [address] Tano Dueñas MD [address] [place] [address] 07/29/2025 1:00 PM EST Office Visit [facility] [address] [place] [address] 3rd Floor, [address] [place] [address] Minda Nelson DNP [address] [place] [address], [address] [address] 08/31/2025 11:50 AM EDT Office Visit [facility], Allergy and Critical Care Medicine [address] [place] [address] Audra Gutierrez MD [address] [place] [address] 2nd [place] [address] documented as of this encounter Visit Diagnoses Not on filedocumented in this encounter Additional Health Concerns 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 04/10/2025 04/10/2025 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 Assessment Noted Time PHQ-9 Depression Total Score: 20 021 1:11 PM EDT PHQ-2 Depression Total Score: 6 01/16/20 21 1:11 PM EDT documented as of this encounter Care Teams Family Caseworker Relationship Specialty Start Date End Date Griselda Bello NP [address] [place] [address] PCP - General Nurse Practitioner 01/26/25 Noe Mccann MD Ophthalmology 02/11/19 Audra Gutierrez MD [address] [place] [address] 2nd [place] [address] [email or web address] Intensive Care 02/11/19 Edouard Mosley MD [address] [place] [address], [address] [place] [address] [email or web address] Plastic and Reconstructive Surgery 02/11/19 Nara Tejada MD [address] [place] [address], [address] [place] [address] [email or web address] Consulting Provider Nephrology 02/11/19 Jose Thomas MD [address] [place] [address] [email or web address] Consulting Provider Infectious Diseases 02/11/19 Trish Hammonds MD [address] [place] [address], [address] [place] [address] [email or web address] Rheumatology 02/11/19 Celina He DPM [address] [facility], [address] [place] [address] Podiatry 02/11/19 Elizabeth Goode MD [address] [place] [address] Psychologist 03/27/20 documented as of this encounter Additional Source Comments The information contained in this document represents components of the legal health record. It is not the complete legal health record.[facility]
--- OUTSIDE RECORDS SUMMARY | 2025-05-03 19:13 | XMS_ITS | Encounter Summary ---
Author Organization [facility] Address [address] [facility] [address] [place] [address] Phone Care Team Providers Care County Assessor Name Role Phone Noe Mccann MD Unavailable Unavailable Audra Gutierrez MD Unavailable Edouard Mosley MD Unavailable Nara Tejada MD Unavailable [phone] Jose Thomas MD Unavailable [phone] Trish Hammonds MD Unavailable Celina He DPM Unavailable Elizabeth Goode MD Unavailable [phone] Griselda Bello MANAGER OF DRILLING Primary Care Provider [phone] Encounter Details Date Type Department Care Team (Late st Contact Info) Description 03/26/2025 Procedure Pass [facility], Josh 2 [address] [facility], 2nd Floor, [address] [place] [address] Social History Tobacco Use Types Packs/Day Years [...] 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 Not on file documented as of this encounter Plan of Treatment Upcoming Encounters Date Type Department Care Team ([facility] st Contact Info) Description 04/28/2025 Procedure Pass Non-Invasive Cardiology [address] [place] [address] 05/12/2025 1:00 PM EST Appointment Non-Invasive Cardiology [address] [place] [address] [place] [address] Tano Dueñas MD [address] [place] [address] 07/29/2025 1:00 PM EST Office Visit [facility] [address] [place] [address] 3rd Floor, [address] [place] [address] Minda Nelson, ESTRELLITA [address] [place] [address], [address] [address] 08/31/2025 11:50 AM EDT Office Visit [facility], Allergy and Critical Care Medicine 10 [place] [address] Audra Gutierrez MD [address] [place] [address] documented as of this encounter Visit Diagnoses [...] documented as of this encounter Care Teams County Assessor Relationship Specialty Start Date End Date Griselda Bello NP [address] [place] [address] PCP - General Nurse Practitioner 01/26/25 Noe Mccann MD Ophthalmology 02/11/19 Audra Gutierrez MD [address] [place] [address] [email or web address] Intensive Care 02/11/19 Edouard Mosley MD [address] [place] [address] [email or web address] Plastic and Reconstructive Surgery 02/11/19 Nara Tejada MD [address] [place] [address], 3 [place] [address] [email or web address] Consulting Provider Nephrology 02/11/19 Jose Thomas MD [address] [place] [address] [email or web address] Consulting Provider Infectious Diseases 02/11/19 Trish Hammonds MD [address] [place] [address], [address] [place] [address] [email or web address] Rheumatology 02/11/19 Celina He DPM [address] [place] [address], [address] [place] [address] [email or web address] Podiatry 02/11/19 Elizabeth Goode MD 301 [facility] 200 [place] [address] Psychologist 03/27/20 documented as of this encounter Additional Source Comments The information contained in this document represents components of the legal health record. It is not the complete legal health record.[facility]
--- OUTSIDE RECORDS SUMMARY | 2025-05-03 19:14 | XMS_ITS | Encounter Summary ---
Author Organization [facility] Address [address] [facility] [address] [place] [address] Phone Care Team Providers Care Dredgemaster Name Role Phone Noe Mccann MD Unavailable Unavailable Audra Gutierrez MD Unavailable [phone] Edouard Mosley MD Unavailable Nara Tejada MD Unavailable [phone] Jose Thomas MD Unavailable [phone] Trish Hammonds MD Unavailable Celina He DPM Unavailable Elizabeth Goode MD Unavailable [phone] Griselda Bello DIRECT[facility] Primary Care Provider [phone] Encounter Details Date Type Department Care Team (Late st Contact Info) Description 04/04/2025 Procedure Pass [facility], Josh [address] [facility], 2nd Floor, [address] [place] [address] Social History Tobacco Use Types Packs/Day Years [...] 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 Not on file documented as of this encounter Plan of Treatment Upcoming Encounters Date Type Department Care Team ([facility] st Contact Info) Description 04/28/2025 Procedure Pass Non-Invasive Cardiology [address] [place] [address] 05/12/2025 1:00 PM EST Appointment Non-Invasive Cardiology [address] [place] [address] [place] [address] Tano Dueñas MD [address] [place] [address] 07/29/2025 1:00 PM EST Office Visit [facility] [address] [place] [address] 3rd Floor, [address] [place] [address] Minda Nelson, ESTRELLITA [address] [place] [address], [address] [address] 08/31/2025 11:50 AM EDT Office Visit [facility] [address] [place] [address] Audra Gutierrez MD [address] [place] [address] documented as of this encounter Visit Diagnoses Not on filedocumented in this encounter Additional Health Concerns 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 04/10/2025 04/10/2025 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 Assessment Noted Time PHQ-9 Depression Total Score: 20 021 1:11 PM EDT PHQ-2 Depression Total Score: 6 01/16/20 21 1:11 PM EDT documented as of this encounter Care Teams Dredgemaster Relationship Specialty Start Date End Date Ace Griselda GAEL Cancino [address] [address] PCP - General Nurse Practitioner 01/26/25 Noe Mccann MD Ophthalmology 02/11/19 Audra Gutierrez MD [address] [place] [address] 2nd [place] [address] [email or web address] Intensive Care 02/11/19 Edouard Mosley MD [address] [place] [address], [address] [address] [email or web address] Plastic and Reconstructive Surgery 02/11/19 Nara Tejada MD [address] [place] [address], 3 [place] [address] [email or web address] Consulting Provider Nephrology 02/11/19 Jose Thomas MD [address] [place] [address] [email or web address] Consulting Provider Infectious Diseases 02/11/19 Trish Hammonds MD [address] [place] [address], [address] [address] [email or web address] Rheumatology 02/11/19 Celina He DPM [address] [facility], [address] [place] [address] Podiatry 02/11/19 Elizabeth Goode MD [address] [place] [address] 200 [place] [address] Psychologist 03/27/20 documented as of this encounter Additional Source Comments The information contained in this document represents components of the legal health record. It is not the complete legal health record.[facility]
--- OUTSIDE RECORDS SUMMARY | 2025-05-03 19:14 | XMS_ITS | Encounter Summary ---
Author Organization [facility] Address [address] [facility] [address] [place] [address] Phone Care Team Providers Care Automation Design Engineer Name Role Phone Noe Mccann MD Unavailable Unavailable Audra Gutierrez MD Unavailable [phone] Edouard Mosley MD Unavailable Nara Tejada MD Unavailable [phone] Jose Thomas MD Unavailable [phone] Trish Hammonds MD Unavailable Celina He DPM Unavailable [phone] Elizabeth Goode MD Unavailable [phone] Griselda Bello SCENIC DESIGNER Primary Care Provider [phone] Reason for Visit * Auth/Cert (Routine) Specialty Diagnoses / Procedures Referred By Ludwin christie Referred To Contact Diagnoses Renal failure MS, Liver Failure, Renal Failure Referral ID Status Reason Start Date Expiration Date Visits Re quested Visits Authorized [id number] 1 1 Encounter Details Date Type Department Care Team (Late st Contact Info) Description 04/15/2025 Lab Requisition [facility] Lab Main [address] [place] [address] Alia Vail, DNP [address] [place] [address] [email or web address] Encounter for general adult medical examination [...] 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 file Not on file documented as of this encounter Plan of Treatment Upcoming Encounters Date Type Department Care Team (Late st Contact Info) Description 04/28/2025 Procedure Pass Non-Invasive Cardiology [address] [place] [address] 05/12/2025 1:00 PM EST Appointment Non-Invasive Cardiology [address] [place] [address] [place] [address] Tano Dueñas MD [address] [place] [address] 07/29/2025 1:00 PM EST Office Visit [facility] [address] [place] [address] 3rd Floor, [address] [place] [address] Minda Nelson DNP [address] [place] [address] 08/31/2025 11:50 AM EDT Office Visit [facility] [address] [place] [address] Audra Gutierrez MD 10 [facility] 2nd [place] [address] [email or web address] documented as of this encounter Procedures Procedure [...] - 2.6 mg/dL 04/15/2025 8:26 AM EST [facility] Blood (Blood) 04/15/2025 6:4 0 AM EST 04/15/2025 7:39 AM EST Alia Vail DNP LAB BLOOD BKR ORDERABLES Fi nal Result [address] [address] * (ABNORMAL) Basic Metabolic Panel (BMP) (04/15/2025 6:40 AM EST) Sodium 137 136 - 145 mmol/L 04/15/2025 8:26 AM EST [facility] Potassium 4.2 3.4 - 5.1 mmol/L 04/15/2025 8:26 AM EST [facility] Chloride 104 98 - 107 mmol/L 04/15/2025 8:26 AM EST [facility] CO2 20 20 - 31 mmol/L 04/15/2025 8:26 AM EST [facility] Anion Gap 13 3 - 17 mmol/L 04/15/2025 8:26 AM EST [facility] BUN 33(H) 6 - 23 mg/dL 04/15/2025 8:26 AM EST [facility] Creatinine 1.46(H) 0.50 - 1.00 mg/dL 04/15/2025 8:26 AM EST [facility] eGFR 39(L) >59 mL/min/1. 73m2 04/15/2025 8:26 AM EST [facility] Comment:Estimated glomerular filtration rate calculated using the CKD-EPI refit equation. 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 Assessment Noted Time PHQ-9 Depression Total Score: 20 021 1:11 PM EDT PHQ-2 Depression Total Score: 6 01/16/20 21 1:11 PM EDT documented as of this encounter Care Teams Automation Design Engineer Relationship Specialty Start Date End Date Griselda Bello NP [address] [place] [address] PCP - General Nurse Practitioner 01/26/25 Noe Mccann MD Ophthalmology 02/11/19 Audra Gutierrez MD [address] [place] [address] 2nd [place] [address] [email or web address] Intensive Care 02/11/19 Edouard Mosley MD [address] [place] [address], [address] [place] [address] Plastic and Reconstructive Surgery 02/11/19 Nara Tejada MD [address] [facility], [address] [place] [address] [email or web address] Consulting Provider Nephrology 02/11/19 Jose Thomas MD [address] [place] [address] [email or web address] Consulting Provider Infectious Diseases 02/11/19 Trish Hammonds MD [address] [place] [address], [address] [address] [email or web address] Rheumatology 02/11/19 Celina He DPM [address] [place] [address], [address] [address] Podiatry 02/11/19 Elizabeth Goode MD [address] [place] [address] Psychologist 03/27/20 documented as of this encounter Additional Source Comments The information contained in this document represents components of the legal health record. It is not the complete legal health record.[facility]
--- OUTSIDE RECORDS SUMMARY | 2025-05-03 19:14 | XMS_ITS | Encounter Summary ---
Author Organization [facility] Address [address] [facility] [address] [place] [address] Phone Care Team Providers Care Urban Designer Name Role Phone Noe Mccann MD Unavailable Unavailable Audra Gutierrez MD Unavailable Edouard Mosley MD Unavailable Nara Tejada MD Unavailable Jose Thomas MD Unavailable [phone] Trish Hammonds MD Unavailable [phone] Celina He DPM Unavailable Elizabeth Goode MD Unavailable [phone] Griselda Bello NURSE DISCHARGE Primary Care Provider [phone] Reason for Visit * Auth/Cert (Routine) Specialty Diagnoses / Procedures Referred By Ludwin christie Referred To Contact Diagnoses Renal failure MS, Liver Failure, Renal Failure Referral ID Status Reason Start Date Expiration Date Visits Re quested Visits Authorized [id number] 1 1 Encounter Details Date Type Department Care Team (Late st Contact Info) Description 04/15/2025 Lab Requisition [facility] [place] Main [address] [place], [place] [id number] Virginia Gonsales MD [address] [address]K[address] [place] [address] [email or web address] Encounter for general adult medical examination [...] 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 Not on file documented as of this encounter Plan of Treatment Upcoming Encounters Date Type Department Care Team (Late st Contact Info) Description 04/28/2025 Procedure Pass Non-Invasive Cardiology [address] [place] [address] 05/12/2025 1:00 PM EST Appointment Non-Invasive Cardiology [address] [place] [address] [place] [address] Tano Dueñas MD [address] [place] [address] 07/29/2025 1:00 PM EST Office Visit [facility] [address] [place] [address] 3rd Floor, [address] [place] [address] Minda Nelson DNP [address] [place] [address] 08/31/2025 11:50 AM EDT Office Visit [facility] [address] [place] [address] Audra Gutierrez MD [address] [facility] 2nd [place] [address] [email or web address] documented as of this encounter Procedures Procedure Name Priority Date/Time Associated Diagnosis Comments CBC Today 04/15/2025 6:40 AM EST Encounter for general adult medical examination without abnormal findings documented in this encounter Results * (ABNORMAL) CBC (04/15/2025 6:40 AM EST) WBC 16.89(H) 4.00 - 11.00 K/uL 04/15/2025 8:03 AM [facility] RBC 2.82(L) 4.00 - 5.20 M/uL 04/15/2025 8:03 AM [facility] Hemoglobin 8.2(L) 12.0 - 16.0 g/dL 04/15/2025 8:03 AM [facility] Hematocrit 25.3(L) 36.0 - 46.0 % 04/15/2025 8:03 AM [facility] MCV 89.7 80.0 - 100.0 fL 04/15/2025 8:03 AM [facility] MCH 29.1 27.0 - 31.0 pg 04/15/2025 8:03 AM [facility] MCHC 32.4 32.0 - 36.0 g/dL 04/15/2025 8:03 AM [facility] PLT 342 150 - 450 K/uL 04/15/2025 8:03 AM [facility] MPV 9.3 8.4 - 12.0 fL 04/15/2025 8:03 AM [facility] RDW-CV 16.5(H) 11.5 - 14.5 % 04/15/2025 8:03 AM [facility] Absolute NRBC 0.00 <=0.00 K cells/uL 04/15/2025 8:03 AM [facility] NRBC 0.0 <=0.0 /100 WBCs 04/15/2025 8:03 AM [facility] Blood (Blood) 04/15/2025 6:4 0 AM EST 04/15/2025 7:46 AM EST us Virginia Gonsales MD LAB BLOOD BKR ORDERABLES Final R esult [facility] [address] [place] [address] documented in this encounter Visit Diagnoses Diagnosis Encounter for general adult medical examination without abnormal findings documented in this encounter 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 Assessment Noted Time PHQ-9 Depression Total Score: 20 021 1:11 PM EDT PHQ-2 Depression Total Score: 6 01/16/20 21 1:11 PM EDT documented as of this encounter Care Teams Urban Designer Relationship Specialty Start Date End Date Griselda Bello NP [address] [place] [address] PCP - General Nurse Practitioner 01/26/25 Noe Mccann MD Ophthalmology 02/11/19 Audra Gutierrez MD [address] [place] [address] 2nd [place] [address] [email or web address] Intensive Care 02/11/19 Edouard Mosley MD [address] [place] [address], [address] [place] [address] [email or web address] Plastic and Reconstructive Surgery 02/11/19 Nara Tejada MD [address] [place] [address], [address] [place] [address] [email or web address] Consulting Provider Nephrology 02/11/19 Jose Thomas MD [address] [place] [address] [email or web address] Consulting Provider Infectious Diseases 02/11/19 Trish Hammonds MD 22 [facility], [address] [address] Rheumatology 02/11/19 Celina He DPM 22 [facility], [address] [address] Podiatry 02/11/19 Elizabeth Goode MD [address] [place] [address] Psychologist 03/27/20 documented as of this encounter Additional Source Comments The information contained in this document represents components of the legal health record. It is not the complete legal health record.[facility]
--- OUTSIDE RECORDS SUMMARY | 2025-05-03 19:14 | XMS_ITS | Encounter Summary ---
Author Organization [facility] Address [address] [facility] [address] [place] [address] Phone Care Team Providers Care Worldwide Chief Creative Officer Name Role Phone Noe Mccann MD Unavailable Unavailable Audra Gutierrez MD Unavailable Edouard Mosley MD Unavailable Nara Tejada MD Unavailable Jose Thomas MD Unavailable [phone] Trish Hammonds MD Unavailable [phone] Celina He DPM Unavailable [phone] Elizabeth Goode MD Unavailable [phone] Griselda Bello GLASS BLOWING LATHE OPERATOR Primary Care Provider [phone] Reason for Visit * Auth/Cert (Routine) Specialty Diagnoses / Procedures Referred By Ludwin christie Referred To Contact Diagnoses Renal failure MS, Liver Failure, Renal Failure Referral ID Status Reason Start Date Expiration Date Visits Re quested Visits Authorized [id number] 1 1 Encounter Details Date Type Department Care Team (Late st Contact Info) Description 04/15/2025 Lab Requisition [facility] Lab Main [address] [place] [address] Alia Vail, DNP [address] [place] [address] [email or web address] Encounter for general adult medical examination without [...] 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 Not on file documented as of this encounter Plan of Treatment Upcoming Encounters Date Type Department Care Team (Late st Contact Info) Description 04/28/2025 Procedure Pass Non-Invasive Cardiology [address] [place] [address] 05/12/2025 1:00 PM EST Appointment Non-Invasive Cardiology [address] [place] [address] [place] [address] Tano Dueñas MD [address] [place] [address] 07/29/2025 1:00 PM EST Office Visit [facility] [address] [place] [address] 3rd Floor, [address] [place] [address] Minda Nelson DNP [address] [place] [address] 08/31/2025 11:50 AM EDT Office Visit [facility] [address] [place] [address] Audra Gutierrez MD 10 [facility] 2nd [place] [address] [email or web address] documented as of this encounter Visit Diagnoses Diagnosis Encounter for general adult medical examination without abnormal findings documented in this encounter 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 Assessment Noted Time PHQ-9 Depression Total Score: 20 021 1:11 PM EDT PHQ-2 Depression Total Score: 6 01/16/20 21 1:11 PM EDT documented as of this encounter Care Teams Worldwide Chief Creative Officer Relationship Specialty Start Date End Date Griselda Bello NP [address] [place] [address] PCP - General Nurse Practitioner 01/26/25 Noe Mccann MD Ophthalmology 02/11/19 Audra Gutierrez MD [address] [place] [address] 2nd [place] [address] [email or web address] Intensive Care 02/11/19 Edouard Mosley MD [address] [place] [address] [email or web address] Plastic and Reconstructive Surgery 02/11/19 Nara Tejada MD [address] [place] [address], 3 [place] [address] [email or web address] Consulting Provider Nephrology 02/11/19 Jose Thomas MD [address] [place] [address] [email or web address] Consulting Provider Infectious Diseases 02/11/19 Trish Hammonds MD [address] [place] [address], [address] [place] [address] Rheumatology 02/11/19 Celina He DPM [address] [place] [address] Podiatry 02/11/19 Elizabeth Goode MD [address] [place] [address] Psychologist 03/27/20 documented as of this encounter Additional Source Comments The information contained in this document represents components of the legal health record. It is not the complete legal health record.[facility]
--- OUTSIDE RECORDS SUMMARY | 2025-05-03 19:14 | XMS_ITS | Encounter Summary ---
Author Organization [facility] Address [address] [facility] [address] [place] [address] Phone Care Team Providers Care Wad Impregnator Name Role Phone Noe Mccann MD Unavailable Unavailable Audra Gutierrez MD Unavailable [phone] Edouard Mosley MD Unavailable Nara Tejada MD Unavailable Jose Thomas MD Unavailable [phone] Trish Hammonds MD Unavailable Celina He DPM Unavailable Elizabeth Goode MD Unavailable Griselda Bello MICROFILM CLERK Primary Care Provider [phone] Encounter Details Date Type Department Care Team (Late st Contact Info) Description 04/05/2025 Procedure Pass [facility] Cardiac Auxiliary Powerplant Operator [address] [facility], [address] 9, [address] [place] [address] Social History Tobacco Use Types [...] 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 Not on file documented as of this encounter Plan of Treatment Upcoming Encounters Date Type Department Care Team ([facility] st Contact Info) Description 04/28/2025 Procedure Pass Non-Invasive Cardiology [address] [place] [address] 05/12/2025 1:00 PM EST Appointment Non-Invasive Cardiology [address] [place] [address] [place] [address] Tano Dueñas MD [address] [place] [address] 07/29/2025 1:00 PM EST Office Visit [facility] [address] [place] [address] 3rd Floor, [address] [place] [address] Minda Nelson DNP [address] [place] [address] 08/31/2025 11:50 AM EDT Office Visit [facility] [address] [place] [address] Audra Gutierrez MD [address] [place] [address] documented as of this encounter Visit Diagnoses Not on filedocumented in this encounter Additional Health Concerns 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 04/10/2025 04/10/2025 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 Assessment Noted Time PHQ-9 Depression Total Score: 20 021 1:11 PM EDT PHQ-2 Depression Total Score: 6 01/16/20 21 1:11 PM EDT documented as of this encounter Care Teams Wad Impregnator Relationship Specialty Start Date End Date Griselda Bello NP [address] [place] [address] PCP - General Nurse Practitioner 01/26/25 Noe Mccann MD Ophthalmology 02/11/19 Audra Gutierrez MD [address] [place] [address] 2nd [place] [address] [email or web address] Intensive Care 02/11/19 Edouard Mosley MD [address] [place] [address], [address] [address] [email or web address] Plastic and Reconstructive Surgery 02/11/19 Nara Tejada MD [address] [place] [address], 3 [place] [address] [email or web address] Consulting Provider Nephrology 02/11/19 Jose Thomas MD [address] [place] [address] [email or web address] Consulting Provider Infectious Diseases 02/11/19 Trish Hammonds MD [address] [place] [address], [address] [address] [email or web address] Rheumatology 02/11/19 Celina He DPM [address] [place] [address], [address] [address] Podiatry 02/11/19 Elizabeth Goode MD [address] [place] [address] [address] [place] [address] Psychologist 03/27/20 documented as of this encounter Additional Source Comments The information contained in this document represents components of the legal health record. It is not the complete legal health record.[facility]
--- NOTE | 2025-05-03 19:15 | PC.NURSE ---
pt was taken to CT scan on monitor by this RN and hazardous waste material technician. pt returned to room ed1, blood infused. MD made aware of BP. slight diminished lung sounds, no crackles noted. pt denies cp/sob/other sx at this time. sats 91% on RA. awaiting further orders by MD at this time.
--- OUTSIDE RECORDS SUMMARY | 2025-05-03 19:16 | XMS_ITS | Encounter Summary ---
Author Organization [facility] Address [address] [place] [address] [address] [place] [address] Phone Care Team Providers Care Denture Waxer Name Role Phone Noe Mccann MD Unavailable Unavailable Audra Gutierrez MD Unavailable [phone] Edouard Mosley MD Unavailable Nara Tejada MD Unavailable [phone] Jose Thomas MD Unavailable [phone] Trish Hammonds MD Unavailable [phone] Celina He DPM Unavailable [phone] Elizabeth Goode MD Unavailable [phone] Martin Green MD Primary Care Provider [phone] Griselda Bello NP Primary Care Provider Encounter Details Date Type Department Care Team (Late st Contact Info) Description 07/26/2024 Procedure Pass [facility] Endoscopy Admitting Dept Virtual Department [address] [place], [place] [phone] Social History Tobacco Use Types Packs/Day Years [...] 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, [address] [place] [address] 08/31/2025 11:50 AM EDT Office Visit [facility] Pulmonary, Allergy and Critical Care Medicine [address] [place] [address] Audra Gutierrez MD [address] [place] [address] 2nd [place] [address] [email or web address] documented as [...] documented as of this encounter Care Teams Denture Waxer Relationship Specialty Start Date End Date Martin Green MD [address] [place] [phone] [email or web address] PCP - General Internal Medicine 05/26/23 01/25/25 Griselda Bello NP [address] [place] [address] PCP - General Nurse Practitioner 01/26/25 Noe Mccann MD Ophthalmology 02/11/19 Audra Gutierrez MD [address] [place] [address] 2nd [place] [address] [email or web address] Intensive Care 02/11/19 Edouard Mosley MD [address] [place] [address], [address] [place] [address] [email or web address] Plastic and Reconstructive Surgery 02/11/19 Nara Tejada MD [address] [place] [address], 3 [place] [address] [email or web address] Consulting Provider Nephrology 02/11/19 Jose Thomas MD [address] [place] [address] [email or web address] Consulting Provider Infectious Diseases 02/11/19 Trish Hammonds MD [address] [place] [address], [address] [address] [email or web address] Rheumatology 02/11/19 Celina He DPM [address] [place] [address], [address] [address] [email or web address] Podiatry 02/11/19 Elizabeth Goode MD [address] [facility] [facility] [address] [place] [address] Psychologist 03/27/20 documented as of this encounter Additional Source Comments The information contained in this document represents components of the legal health record. It is not the complete legal health record.[facility]
--- OUTSIDE RECORDS SUMMARY | 2025-05-03 19:16 | XMS_ITS | Encounter Summary ---
Author Organization [facility] Address [address] [facility] [address] [place] [address] Phone Care Team Providers Care Golf Cart Attendant Name Role Phone Olvin Harvey MD Primary Care Provide r Olvin Harvey MD Unavailable [phone] Chelsy MlcaughlinW Unavailable [email or web address] Ema [place] DO Primary Care Provider Krissy Hernandez Primary Care Pro vider Martin Green MD Primary Care Provider [phone] Martin Bales MD Unavailable Jose Gallagher MD Unavailable [phone] Ramiro Schmidt MD Unavailable [phone] Enio Starkey MD Unavailable [phone] Kenneth Carter MD Unavailable [phone] Noe Mccann MD Unavailable Unavailable Audra Gutierrez MD Unavailable [phone] Edouard Mosley MD Unavailable Martin Green MD Primary Care Provider + Nara Tejada MD Unavailable [phone] Jose Thomas MD Unavailable + [phone] Trish Hammonds MD Unavailable [phone]- [phone] PayamcharCelnia DPM Unavailable +[phone] Olvin Harvey MD Unavailable [phone] Fabián Seaman MD Unavailable +[phone] Elizabeth Goode MD Unavailable [phone] Martin Green MD Primary Care Provider + Martin Green MD Primary Care Provider + Griselda Bello NP Primary Care Provider +[phone] Reason for Referral * Consultation (Elective) - Closed Specialty Diagnoses / Procedures Referred By Ludwin christie Referred To Contact Neurology Diagnoses Encounter for consultation Olvin Harvey MD Phone: tel: fax: [email or web address] [phone] Phone: tel: Referral ID Status Reason Start Date Expiration Date Visits Re quested Visits Authorized [id number] Closed 05/21/2017 05/21/2018 1 1 Encounter Details Date Type Department Care Team (Latest Contact Info) Description 05/21/2017 Transcribe Orders [facility] Department of Neurology [address] [place] [address], 8th Floor, [address] [place] [address] Kenneth Carter MD [address] [place] [address] Encounter for consultation (Primary Dx) Social [...] 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 Not on file documented as of this encounter Plan of Treatment Upcoming Encounters Date Type Department Care Team ([facility] st Contact Info) Description 04/28/2025 Procedure Pass Non-Invasive Cardiology [address] [place] [address] [place] [address] 05/12/2025 1:00 PM EST Appointment Non-Invasive Cardiology [address] [place] [address] [place] [address] Tano Dueñas MD [address] [place] [address] [email or web address] 07/29/2025 1:00 PM EST Office Visit [facility] [address] [place] [address] 3rd Floor, [address] [place] [address] Minda Nelson DNP [address] [place] [address] 08/31/2025 11:50 AM EDT Office Visit [facility] Pulmonary, Allergy and Critical Care Medicine [address] [place] [address] Audra Gutierrez MD 10 [facility] 2nd [place] [address] [email or web address] Scheduled Referrals Name Type Priority Associated Diagnoses Orde r Schedule Ambulatory referral to [facility] Neurology Outpatient Referral Routine Encounter for consultation [...] documented as of this encounter Care Teams Golf Cart Attendant Relationship Specialty Start Date End Date Olvin Harvey MD [address] [address] [email or web address] PCP - General 12/07/13 06/11/18 Ema Kaufman DO [address] [place] [address] [email or web address] PCP - General 06/12/18 09/22/18 Krissy Hernandez PA [address] [place] [address] [email or web address] PCP - General Internal Medicine 09/23/18 10/04/18 Martin Green MD [address] [place] [address] [email or web address] PCP - General Internal Medicine 10/05/18 02/10/19 Martin Green MD [address] [place] [address] [email or web address] PCP - General Internal Medicine 02/11/19 04/11/20 Martin Green MD [address] [place] [address] [email or web address] PCP - General Internal Medicine 04/12/20 05/25/23 Martin Green MD [address] [place] [phone] [email or web address] PCP - General Internal Medicine 05/26/23 01/25/25 Griselda Bello NP [address] [place] [address] PCP - General Nurse Practitioner 01/26/25 Olvin Harvey MD 22 [facility] 1 [place] [address] [email or web address] Insurance Assigned Provider 04/12/17 02/10/19 Chelsy Mclaughlin, CAMPAIGN MANAGEMENT SENIOR MANAGER [address] [facility] Floor 1 [place] [address] [email or web address] Crab Backer 08/08/17 07/05/18 Martin Bales MD [address] [place] [address] [email or web address] Gastroenterology 10/07/18 11/13/20 Jose Gallagher MD [address] [place] [address], [address] [place] [address] [email or web address] Urology 10/07/18 11/13/20 Ramiro Schmidt MD [address] [place] [address], [address] [place] [address] [email or web address] Endocrinology 02/11/19 11/13/20 Enio Starkey MD [address] [place] [address], [address] [place] [address] [email or web address] Cardiology 02/11/19 11/13/20 Kenneth Carter MD [address] [place] [address] Neurology 02/11/19 11/13/20 Noe Mccann MD Ophthalmology 02/11/19 Audra Gutierrez MD [address] [place] [address] [email or web address] Intensive Care 02/11/19 Edouard Mosley MD [address] [place] [address], [address] [place] [address] [email or web address] Plastic and Reconstructive Surgery 02/11/19 Nara Tejada MD [address] [place] [address], [address] [place] [address] [email or web address] Consulting Provider Nephrology 02/11/19 Jose Thomas MD [address] [place] [address] [email or web address] Consulting Provider Infectious Diseases 02/11/19 Trish Hammonds MD [address] [facility], [address] [place] [address] [email or web address] Rheumatology 02/11/19 Celina He DPM [address] [facility], [address] [place] [address] [email or web address] Podiatry 02/11/19 Olvin Harvey MD 22 [facility] Floor 1 [place] [address] [email or web address] Insurance Assigned Provider 04/12/17 03/06/19 Fabián Seaman MD [address] [facility], [address] [place] [address] [email or web address] Insurance Assigned Provider 03/06/19 07/09/19 Elizabeth Goode MD [address] [place], [place] [address] [address] Psychologist 03/27/20 documented as of this encounter Additional Source Comments The information contained in this document represents components of the legal health record. It is not the complete legal health record.[facility]
--- OUTSIDE RECORDS SUMMARY | 2025-05-03 19:16 | XMS_ITS | Encounter Summary ---
Author Organization [facility] Address [address] [facility] [address] [place] [address] Phone Care Team Providers Care Client Hr Manager Name Role Phone Olvin Harvey MD Primary Care Provide r Olvin Harvey MD Unavailable [phone] Chelsy MclaughlinW Unavailable [email or web address] Ema [place]as DO Primary Care Provider Krissy Hernandez Primary Care Pro vider Martin Green MD Primary Care Provider [phone] Martin Bales MD Unavailable Jose Gallagher MD Unavailable [phone] Ramiro Schmidt MD Unavailable Enio Starkey MD Unavailable [phone] Kenneth Carter MD Unavailable [phone] Noe Mccann MD Unavailable Unavailable Audra Gutierrez MD Unavailable Edouard Mosley MD Unavailable Martin Green MD Primary Care Provider + Nara Tejada MD Unavailable [phone] Jose Thomas MD Unavailable + [phone] Trish Hammonds MD Unavailable +- [phone] Celina He DPM Unavailable [phone] Olvin Harvey MD Unavailable [phone] Fabián Seaman MD Unavailable +[phone] Elizabeth Goode MD Unavailable [phone] Martin Green MD Primary Care Provider + Martin Green MD Primary Care Provider + Griselda Bello NP Primary Care Provider [phone] Reason for Referral * Consultation (Within 2 weeks) - Closed Specialty Diagnoses / Procedures Referred By Ludwin christie Referred To Contact Rheumatology Diagnoses Arthralgia, unspecified joint System, Provider Not In, PhD [id number] [place] [phone] Phone: tel: Referral ID Status Reason Start Date Expiration Date Visits Re quested Visits Authorized [id number] Closed 07/22/2017 07/22/2018 1 1 Encounter Details Date Type Department Care Team (Latest Contact Info) Description 07/22/2017 Transcribe Orders [facility] [place]ology [address], 4th Floor, [address] [place] [address] Audra Gutierrez MD [address] [address] [email or web address] Arthralgia, unspecified joint (Primary Dx) Social History [...] 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 Not on file Not on file documented as of this encounter Plan of Treatment Upcoming Encounters Date Type Department Care Team (Late st Contact Info) Description 04/28/2025 Procedure Pass Non-Invasive Cardiology [address] [place] [address] 05/12/2025 1:00 PM EST Appointment Non-Invasive Cardiology [address] [place] [address] Tano Dueñas MD [address] [place] [address] 07/29/2025 1:00 PM EST Office Visit [facility] [address] [place] [address] 3rd Floor, [address] [place] [address] Minda Nelson DNP [address] [place] [address] 08/31/2025 11:50 AM EDT Office Visit [facility], Allergy and Critical Care Medicine [address] [place] [address] Audra Gutierrez MD [address] [place] [address] [email or web address] Scheduled Referrals Name Type Priority Associated Diagnoses Orde r Schedule Ambulatory referral to [facility] Rheumatology Outpatient Referral Routine Arthralgia, unspecified joint [...] documented as of this encounter Care Teams Client Hr Manager Relationship Specialty Start Date End Date Olvin Harvey MD 22 [facility] 1 [place] [address] [email or web address] PCP - General 12/07/13 06/11/18 Ema Kaufman DO [address] [place] [address] [email or web address] PCP - General 06/12/18 09/22/18 Krissy Hernandez PA [address] [place] [address] [email or web address] PCP - General Internal Medicine 09/23/18 10/04/18 Martin Green MD [address] [place] [address] [email or web address] PCP - General Internal Medicine 10/05/18 02/10/19 Martin Green MD [address] [place] [address] [email or web address] PCP - General Internal Medicine 02/11/19 04/11/20 Martin Green MD [address] [place] [address] [email or web address] PCP - General Internal Medicine 04/12/20 05/25/23 Martin Green MD [address] [place] [phone] [email or web address] PCP - General Internal Medicine 05/26/23 01/25/25 Griselda Bello NP [address] [place] [address] PCP - General Nurse Practitioner 01/26/25 Olvin Harvey MD [address] [place] [address] 1 [place] [address] [email or web address] Insurance Assigned Provider 04/12/17 02/10/19 Chelsy Mclaughlin, KENNEL TECHNICIAN 22 [facility] 1 [place] [address] [email or web address] Hose Inspector And Patcher 08/08/17 07/05/18 Martin Bales MD [address] [place] [address] [email or web address] Gastroenterology 10/07/18 11/13/20 Jose Gallagher MD [address] [place] [address], [address] [place] [address] [email or web address] Urology 10/07/18 11/13/20 Ramiro Schmidt MD [address] [place] [address], [address] [place] [address] [email or web address] Endocrinology 02/11/19 11/13/20 Enio Starkey MD [address] [place] [address], [address] [place] [address] [email or web address] Cardiology 02/11/19 11/13/20 Kenneth Carter MD [address] [place] [address] Neurology 02/11/19 11/13/20 Noe Mccann MD Ophthalmology 02/11/19 Audra Gutierrez MD [address] [place] [address] [email or web address] Intensive Care 02/11/19 Edouard Mosley MD [address] [place] [address], [address] [place] [address] [email or web address] Plastic and Reconstructive Surgery 02/11/19 Nara Tejada MD [address] [place] [address], [address] [place] [address] [email or web address] Consulting Provider Nephrology 02/11/19 Jose Thomas MD [address] [place] [address] [email or web address] Consulting Provider Infectious Diseases 02/11/19 Trish Hammonds MD 22 [facility], [address] [place] [address] [email or web address] Rheumatology 02/11/19 Celina He DPM [address] [facility], [address] [place] [address] [email or web address] Podiatry 02/11/19 Olvin Harvey MD [address] [facility] Floor 1 [place] [address] [email or web address] Insurance Assigned Provider 04/12/17 03/06/19 Fabián Seaman MD [address] [facility], [address] [place] [address] [email or web address] Insurance Assigned Provider 03/06/19 07/09/19 Elizabeth Goode MD [address] [place] [address] [place] [address] Psychologist 03/27/20 documented as of this encounter Additional Source Comments The information contained in this document represents components of the legal health record. It is not the complete legal health record.[facility]
--- OUTSIDE RECORDS SUMMARY | 2025-05-03 19:16 | XMS_ITS | Encounter Summary ---
Author Organization [facility] Address [address] [facility] [address] [place] [address] Phone Care Team Providers Care Construction Ironworker Name Role Phone Olvin Harvey MD Primary Care Provide r Olvin Harvey MD Unavailable [phone] Chelsy MclaughlinW Unavailable [email or web address] Ema Dumas DO Primary Care Provider Krissy Hernandez Primary Care Pro vider Martin Green MD Primary Care Provider [phone] Martin Bales MD Unavailable Jose Gallagher MD Unavailable [phone] Ramiro Schmidt MD Unavailable Enio Starkey MD Unavailable [phone] Kenneth Carter MD Unavailable [phone] Noe Mccann MD Unavailable Unavailable Audra Gutierrez MD Unavailable [phone] Edouard Mosley MD Unavailable Martin Green MD Primary Care Provider + Nara Tejada MD Unavailable [phone] Jose Thomas MD Unavailable + [phone] Trish Hammonds MD Unavailable +- [phone] PayamcharConcettaValerie Janie DPM Unavailable +- [phone] Olvin Harvey MD Unavailable [phone] Fabián Seaman MD Unavailable +[phone] Elizabeth Goode MD Unavailable [phone] Martin Green MD Primary Care Provider + Martin Green MD Primary Care Provider +[phone] Griselda Bello NP Primary Care Provider [phone] Encounter Details Date Type Department Care Team (Latest Contact Info) Description 08/07/2017 Transcribe Orders [facility] Phleb Main [address] [place] [address] Julien Steel MD [address] [place] [address] [id number] [email or web address] Hypercalcemia (Primary Dx) Social History Tobacco Use [...] 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 file Not on file documented as of this encounter Plan of Treatment Upcoming Encounters Date Type Department Care Team (Late st Contact Info) Description 04/28/2025 Procedure Pass Non-Invasive Cardiology [address] [place] [address] 05/12/2025 1:00 PM EST Appointment Non-Invasive Cardiology [address] [place] [address] Tano Dueñas MD 22 [facility], [address] [place] [address] 07/29/2025 1:00 PM EST Office Visit [facility] [address] 3rd Floor, [address] [place] [address] Minda Nelson DNP 22 [facility], [address] [address] [email or web address] 08/31/2025 11:50 AM EDT Office Visit [facility] Pulmonary, Allergy [facility] Critical Care Medicine [address] [place] [address] Audra Gutierrez MD [address] [place] [address] [email or web address] documented as of this encounter Results * Vitamin A (08/07/2017 2:56 PM EST) [facility] VITAMIN A 71.2 32.5 - 78.0 mcg/dL [facility] Comment: (NOTE) ADDITIONAL INFORMATION This test was developed and its performance characteristics determined by [facility] in a manner consistent with CLIA requirements. This test has not been cleared or approved by the U.S. Food and Drug Administration. Blood 08/07/2017 2:56 PM EST 08/08/2017 10:16 AM EST us Julien Steel MD LAB BLOOD ORDERABLES Final Re sult [facility] [address] [place] [address] * (ABNORMAL) Renal panel (08/07/2017 2:56 PM EST) SODIUM 140 133 - 146 mmol/L [facility] POTASSIUM 3.5 3.3 - 5.1 mmol/L [facility] CHLORIDE 97 96 - 108 mmol/L [facility] CO2 29 21 - 35 mmol/L [facility] GLUCOSE 183(H) 70 - 99 mg/dL [facility] BUN 14 6 - 19 mg/dL [facility] CREATININE 1.00 0.5 - 1.5 mg/dL [facility] CALCIUM 9.9 8.4 - 10.3 mg/dL [facility] PHOSPHORUS 1.9(L) 2.7 - 4.5 mg/dL [facility] ALBUMIN 3.9 3.9 - 4.8 g/dL [facility] EGFR 57(L) >60 mL/min/1.7 3m2 [facility] Comment:Abnormal if <60. If patient is -Zimbabwean, multiply the result by 1.21. ANION GAP 18 10 - 20 mmol/L [facility] Blood 08/07/2017 2:56 PM EST 08/07/2017 3:03 PM EST Julien Steel MD LAB BLOOD BKR ORDERABLES Angle l Result Performing Organization Address City/[facility]/ZIP Co de Phone Number [address] [address] * (ABNORMAL) 25-OH vitamin D (08/07/2017 2:56 PM EST) 25 [place] VIT D (TOTAL) 22(L) 30 - 1,000 ng/mL [facility] Blood 08/07/2017 2:56 PM EST 08/07/2017 3:03 PM EST Julien Steel MD LAB BLOOD BKR ORDERABLES Angle l Result [address] [address] * (ABNORMAL) Magnesium (08/07/2017 2:56 PM EST) MAGNESIUM 1.4(L) 1.6 - 2.6 mg/dL [facility] Blood 08/07/2017 2:56 PM EST 08/07/2017 3:03 PM EST us Julien Steel MD LAB BLOOD BKR ORDERABLES Angle l Result [address] [address] * TSH (08/07/2017 2:56 PM EST) TSH 0.45 0.27 - 4.20 uIU/mL [facility] Blood 08/07/2017 2:56 PM EST 08/07/2017 3:03 PM EST us Julien Steel MD LAB BLOOD BKR ORDERABLES Angle l Result [address] [address] * Parathyroid hormone (PTH) (08/07/2017 2:56 PM EST) PARATHYROID HORMONE 16 15 - 65 pg/mL [facility] Blood 08/07/2017 2:56 PM EST 08/07/2017 3:03 PM EST us Julien Steel MD LAB BLOOD BKR ORDERABLES Angle l Result [address] [address] * (ABNORMAL) Hemoglobin A1c (08/07/2017 2:56 PM EST) HEMOGLOBIN A1C 6.6(H) 4.3 - 5.8 % [facility] Blood 08/07/2017 2:56 PM EST 08/07/2017 3:03 PM EST us Julien Steel MD LAB BLOOD BKR ORDERABLES Angle char Result [address] [address] documented in this encounter Visit Diagnoses Diagnosis [...] documented as of this encounter Care Teams Construction Ironworker Relationship Specialty Start Date End Date Olvin Harvey MD 22 [facility] 1 [place] [address] [email or web address] PCP - General 12/07/13 06/11/18 Ema Kaufman DO [address] [place] [address] [email or web address] PCP - General 06/12/18 09/22/18 Krissy Hernandez PA [address] [place] [address] [email or web address] PCP - General Internal Medicine 09/23/18 10/04/18 Martin Green MD [address] [place] [address] [email or web address] PCP - General Internal Medicine 10/05/18 02/10/19 Martin Green MD [address] [place] [address] [email or web address] PCP - General Internal Medicine 02/11/19 04/11/20 Martin Green MD [address] [place] [address] [email or web address] PCP - General Internal Medicine 04/12/20 05/25/23 Martin Green MD [address] [place] [phone] [email or web address] PCP - General Internal Medicine 05/26/23 01/25/25 Griselda Bello NP [address] [place] [address] PCP - General Nurse Practitioner 01/26/25 Olvin Harvey MD 22 [facility] 1 [place] [address] [email or web address] Insurance Assigned Provider 04/12/17 02/10/19 Chelsy Mclaughlin [facility] [address] [facility] 1 [place] [address] [email or web address] Wool And Pelt Grader 08/08/17 07/05/18 Martin Bales MD [address] [place] [address] [email or web address] Gastroenterology 10/07/18 11/13/20 Jose Gallagher MD [address] [place] [address], [address] [address] [email or web address] Urology 10/07/18 11/13/20 Ramiro Schmidt MD [address] [place] [address], [address] [address] [email or web address] Endocrinology 02/11/19 11/13/20 Enio Starkey MD [address] [place] [address], [address] [place] [address] [email or web address] Cardiology 02/11/19 11/13/20 Kenneth Carter MD [address] [place] [address] Neurology 02/11/19 11/13/20 Noe Mccann MD Ophthalmology 02/11/19 Audra Gutierrez MD [address] [place] [address] 2nd [place] [address] [email or web address] Intensive Care 02/11/19 Edouard Mosley MD [address] [place] [address], [address] [place] [address] [email or web address] Plastic and Reconstructive Surgery 02/11/19 Nara Tejada MD [address] [place] [address], [address] [place] [address] [email or web address] Consulting Provider Nephrology 02/11/19 Jose Thomas MD [address] [place] [address] [email or web address] Consulting Provider Infectious Diseases 02/11/19 Trish Hammonds MD 22 [facility] [address] [place] [address] [email or web address] Rheumatology 02/11/19 Celina He DPM 22 [facility] [address] [place] [address] Podiatry 02/11/19 Olvin Harvey MD 22 [facility] Floor 1 [place] [address] [email or web address] Insurance Assigned Provider 04/12/17 03/06/19 Fabián Seaman MD [address] [place] [address], [address] [place] [address] [email or web address] Insurance Assigned Provider 03/06/19 07/09/19 Elizabeth Goode MD [address] [place] [address] 200 [place] [address] Psychologist 03/27/20 documented as of this encounter Additional Source Comments The information contained in this document represents components of the legal health record. It is not the complete legal health record.[facility]
--- OUTSIDE RECORDS SUMMARY | 2025-05-03 19:16 | XMS_ITS | Encounter Summary ---
Author Organization [facility] Address [address] [facility] [address] [place] [address] Phone Care Team Providers Care Lace Winder Name Role Phone Olvin Harvey MD Primary Care Provide r Olvin Harvey MD Unavailable [phone] Chelsy MclaughlinW Unavailable [email or web address] Ema Dumas DO Primary Care Provider Krissy Hernandez Primary Care Pro vider Martin Green MD Primary Care Provider [phone] Martin Bales MD Unavailable Jose Gallagher MD Unavailable [phone] Ramiro Schmidt MD Unavailable Enio Starkey MD Unavailable [phone] Kenneth Carter MD Unavailable [phone] Noe Mccann MD Unavailable Unavailable Audra Gutierrez MD Unavailable Edouard Mosley MD Unavailable Martin Green MD Primary Care Provider + Nara Tejada MD Unavailable [phone] Jose Thomas MD Unavailable [phone] Trish Hammonds MD Unavailable [phone] Payamchar JoanricardojimboStephanieValerie Janie DPM Unavailable [phone] Olvin Harvey MD Unavailable [phone] Fabián Seaman MD Unavailable +[phone] Elizabeth Goode MD Unavailable [phone] Martin Green MD Primary Care Provider + Martin Green MD Primary Care Provider +[phone] Griselda Bello NP Primary Care Provider [phone] Encounter Details Date Type Department Care Team (Late st Contact Info) Description 04/23/2017 Procedure Pass [address] [address] Social History Tobacco Use Types Packs/Day Years [...] Info) Description 04/28/2025 Procedure Pass Non-Invasive Cardiology [address] [place] [address] [place] [address] 05/12/2025 1:00 PM EST Appointment Non-Invasive Cardiology [address] [place] [address] Tano Dueñas MD 22 [facility], [address] [place] [address] 07/29/2025 1:00 PM EST Office Visit [facility] [address] [facility] 3rd Floor, [address] [place] [address] Minda Nelson, ESTRELLITA 22 [facility], [address] [place] [address] 08/31/2025 11:50 AM EDT Office Visit [facility], Allergy [facility] Critical [facility] 10 [place] [address] Audra Gutierrez MD 10 [facility] 2nd [place] [address] [email or web address] documented as of this encounter Visit Diagnoses [...] documented as of this encounter Care Teams Lace Winder Relationship Specialty Start Date End Date Olvin Harvey MD 22 [facility] 1 [place] [address] [email or web address] PCP - General 12/07/13 06/11/18 Ema Kaufman DO [address] [place] [address] [email or web address] PCP - General 06/12/18 09/22/18 Krissy Hernandez PA [address] [place] [address] [email or web address] PCP - General Internal Medicine 09/23/18 10/04/18 Martin Green MD [address] [place] [address] [email or web address] PCP - General Internal Medicine 10/05/18 02/10/19 Martin Green MD [address] [place] [address] [email or web address] PCP - General Internal Medicine 02/11/19 04/11/20 Martin Green MD [address] [place] [address] [email or web address] PCP - General Internal Medicine 04/12/20 05/25/23 Martin Green MD 238 [place] [address] [email or web address] PCP - General Internal Medicine 05/26/23 01/25/25 Griselda Bello NP 238 [place] [address] PCP - General Nurse Practitioner 01/26/25 Olvin Harvey MD [address] [address] [email or web address] Insurance Assigned Provider 04/12/17 02/10/19 Chelsy Mclaughlin [facility] [address] [address] [email or web address] Stone Polisher Hand 08/08/17 07/05/18 Martin Bales MD [address] [place] [address] [email or web address] Gastroenterology 10/07/18 11/13/20 Jose Gallagher MD [address] [place] [address], [address] [address] [email or web address] Urology 10/07/18 11/13/20 Ramiro Schmidt MD [address] [place] [address], [address] [address] [email or web address] Endocrinology 02/11/19 11/13/20 Enio Starkey MD [address] [place] [address], [address] [place] [address] [email or web address] Cardiology 02/11/19 11/13/20 Kenneth Carter MD [address] [place] [address] Neurology 02/11/19 11/13/20 Noe Mccann MD Ophthalmology 02/11/19 Audra Gutierrez MD [address] [place] [address] 2nd [place] [address] [email or web address] Intensive Care 02/11/19 Edouard Mosley MD [address] [place] [address], [facility] 202 [place] [address] [email or web address] Plastic and Reconstructive Surgery 02/11/19 Nara Tejada MD [address] [place] [address], [address] [place] [address] [email or web address] Consulting Provider Nephrology 02/11/19 Jose Thomas MD [address] [place] [address] [email or web address] Consulting Provider Infectious Diseases 02/11/19 Trish Hammonds MD [address] [place] [address] [email or web address] Rheumatology 02/11/19 Celina He DPM [address] [place] [address], [place] [address] [email or web address] Podiatry 02/11/19 Olvin Harvey MD 22 [facility] Floor 1 [place] [address] [email or web address] Insurance Assigned Provider 04/12/17 03/06/19 Fabián Seaman MD 22 [facility], [address] [place] [address] [email or web address] Insurance Assigned Provider 03/06/19 07/09/19 Elizabeth Goode MD [address] [place] [address] Psychologist 03/27/20 documented as of this encounter Additional Source Comments The information contained in this document represents components of the legal health record. It is not the complete legal health record.[facility]
--- OUTSIDE RECORDS SUMMARY | 2025-05-03 19:16 | XMS_ITS | Encounter Summary ---
Author Organization [facility] Address [address] [facility] [address] [place] [address] Phone Care Team Providers Care Supervisor Records Change Name Role Phone Noe Mccann MD Unavailable Unavailable Audra Gutierrez MD Unavailable Edouard Mosley MD Unavailable Nara Tejada MD Unavailable Jose Thomas MD Unavailable [phone] Trish Hammonds MD Unavailable [phone] Celina He DPM Unavailable Elizabeth Goode MD Unavailable Griselda Bello PROCUREMENT MANAGER Primary Care Provider [phone] Encounter Details Date Type Department Care Team (Late st Contact Info) Description 03/23/2025 Procedure Pass [facility], Josh [address] 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 Not on file Not on file documented as of this encounter Plan of Treatment Upcoming Encounters Date Type Department Care Team ([facility] st Contact Info) Description 04/28/2025 Procedure Pass Non-Invasive Cardiology [address] [place] [address] 05/12/2025 1:00 PM EST Appointment Non-Invasive Cardiology [address] [place] [address] [place] [address] Tano Dueñas MD [address] [place] [address] 07/29/2025 1:00 PM EST Office Visit [facility] [address] [place] [address] 3rd Floor, [address] [place] [address] Minda Nelson, ESTRELLITA [address] [place] [address], [address] [address] 08/31/2025 11:50 AM EDT Office Visit [facility] All[facility] 10 [place] [address] Audra Gutierrez MD [address] [place] [address] documented as of this encounter Visit Diagnoses [...] as of this encounter Care Teams Supervisor Records Change Relationship Specialty Start Date End Date Griselda Bello NP [address] [place] [address] PCP - General Nurse Practitioner 01/26/25 Noe Mccann MD Ophthalmology 02/11/19 Audra Gutierrez MD [address] [place] [address] [email or web address] Intensive Care 02/11/19 Edouard Mosley MD [address] [place] [address] [email or web address] Plastic and Reconstructive Surgery 02/11/19 Nara Tejada MD [address] [place] [address], 3 [place] [address] [email or web address] Consulting Provider Nephrology 02/11/19 Jose Thomas MD [address] [place] [address] [email or web address] Consulting Provider Infectious Diseases 02/11/19 Trish Hammonds MD [address] [place] [address], [address] [place] [address] [email or web address] Rheumatology 02/11/19 Celina He DPM [address] [place] [address], [address] [place] [address] [email or web address] Podiatry 02/11/19 Elizabeth Goode MD 301 [facility] 200 [place] [address] Psychologist 03/27/20 documented as of this encounter Additional Source Comments The information contained in this document represents components of the legal health record. It is not the complete legal health record.[facility]
--- OUTSIDE RECORDS SUMMARY | 2025-05-03 19:16 | XMS_ITS | Encounter Summary ---
Author Organization Located Within [facility] Address [address] [facility] [address] [place] [address] Phone Care Team Providers Care Global Account Executive Name Role Phone Olvin Harvey MD Primary Care Provide r Olvin Harvey MD Unavailable [phone] Chelsy [email or web address] Unavailable [email or web address] DO Primary Care Provider Krissy Hernandez Primary Care Pro vider Melchor Green MD Primary Care Provider [phone] Melchor Bales MD Unavailable Jose Gallagher MD Unavailable [phone] Ramiro Schmidt MD Unavailable [phone] Enio Starkey MD Unavailable [phone] Kenneth Carter MD Unavailable [phone] Noe Mccann MD Unavailable Unavailable Audra Gutierrez MD Unavailable Edouard Mosley MD Unavailable Melchor Green MD Primary Care Provider + Nara Tejada MD Unavailable [phone] Jose Thomas MD Unavailable + [phone] Trish Hammonds MD Unavailable [phone] PayamcharCelina DPM Unavailable [phone] Olvin Harvey MD Unavailable [phone] Fabián Seaman MD Unavailable [phone] Elizabeth Goode MD Unavailable [phone] Melchor Green MD Primary Care Provider + Melchor Green MD Primary Care Provider + Griselda Bello NP Primary Care Provider [phone] Reason for Referral * MRI/CAT Scan - Closed Specialty Diagnoses / Procedures Referred By Ludwin christie Referred To Contact Radiology Diagnoses MS (multiple sclerosis) Procedures MRI Brain Kenneth Carter MD Phone: tel: fax: Referral ID Status Reason Start Date Expiration Date Visits Re quested Visits Authorized [id number] Closed 04/23/2017 04/23/2018 1 1 * MRI/CAT Scan - Closed Specialty Diagnoses / Procedures Referred By Ludwin christie Referred To Contact Radiology Diagnoses MS (multiple sclerosis) Procedures MRI Cervical Spine Kenneth Carter MD Phone: tel: fax: Referral ID Status Reason Start Date Expiration Date Visits Re quested Visits Authorized [id number] Closed 04/23/2017 04/23/2018 1 1 Encounter Details Date Type Department Care Team (Late st Contact Info) Description 04/23/2017 Ancillary Orders [facility] Department [address] [place] [address] Kenneth Carter MD [address] [place] [address] MS (multiple sclerosis) Social History Tobacco Use [...] Upcoming Encounters Date Type Department Care Team ([facility] st Contact Info) Description 04/28/2025 Procedure Pass Non-Invasive Cardiology [address] [place] [address] 05/12/2025 1:00 PM EST Appointment Non-Invasive Cardiology [address] [place] [address] [place] [address] Tano Dueñas MD [address] [place] [address] 07/29/2025 1:00 PM EST Office Visit [facility] [address] [place] [address] 3rd Floor, [address] [address] Minda Nelson DNP [address] [place] [address] 08/31/2025 11:50 AM EDT Office Visit [facility] [address] [place] [address] [place] [address] Audra Gutierrez MD [address] [place] [address] 2[address] [place] [address] documented as of this encounter Results * MRI CERVICAL SPINE (BONE) WITHOUT CONTRAST (04/29/2017 7:34 PM EST) Anatomical Region Laterality Modality C-spine Magnetic Resonan ce 04/30/2017 8:00 AM EST Impressions 04/30/2017 8:12 AM EST 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 No new cord lesions demonstrated. Grossly stable C6-7 disc protrusion. No other significant interval change from 08/01/2016 apparent. POS - [id number] Narrative 04/30/2017 8:12 AM EST COMPARISON:08/01/2016 TECHNIQUE: [...] significantinterval change from 08/01/2016 apparent. POS - [id number] us Kenneth Carter MD IMG MR XSPECIALTY Final Res ult * MRI BRAIN WITHOUT CONTRAST (04/29/2017 7:33 PM EST) Anatomical Region Laterality Modality Head Magnetic Resonan ce 04/30/2017 7:53 AM EST Impressions 04/30/2017 8:00 AM EST Stable white matter lesions consistent with demyelinating plaques, without other significant interval change in the appearance of the intracranial contents since 08/01/2016. POS - [id number] Narrative 04/30/2017 8:00 AM EST TECHNIQUE: Exam [...] made with prior study of 08/01/2016. Multiple [id number] lesions scattered throughout the periventricular white matterand [...] of the intracranialcontents since 08/01/2016. POS - [id number] us Kenneth Carter MD IMG MR HEAD/NECK [...] documented as of this encounter Care Teams Global Account Executive Relationship Specialty Start Date End Date Olvin Harvey MD [address] [facility] 1 [place] [address] [email or web address] PCP - General 12/07/13 06/11/18 Ema Kaufman DO [address] [place] [address] [email or web address] PCP - General 06/12/18 09/22/18 Krissy Hernandez PA [address] [place] [address] [email or web address] PCP - General Internal Medicine 09/23/18 10/04/18 Melchor Green MD [address] [place] [address] [email or web address] PCP - General Internal Medicine 10/05/18 02/10/19 Melchor Green MD [address] [place] [address] [email or web address] PCP - General Internal Medicine 02/11/19 04/11/20 Melchor Green MD [address] [place] [address] [email or web address] PCP - General Internal Medicine 04/12/20 05/25/23 Melchor Green MD [address] [place] [address] [email or web address] PCP - General Internal Medicine 05/26/23 01/25/25 Griselda Bello NP [address] [place] [address] PCP - General Nurse Practitioner 01/26/25 Olvin Harvey MD [address] [facility] 1 [place] [address] [email or web address] Insurance Assigned Provider 04/12/17 02/10/19 Chelsy Mclaughlin ACADEMIC PHYSICIAN [address] [address] [email or web address] [email or web address] Supervising Bailiff 08/08/17 07/05/18 Melchor Bales MD [address] [place] [address] [email or web address] Gastroenterology 10/07/18 11/13/20 Jose Gallagher MD [address] [place] [address], [address] [place] [address] [email or web address] Urology 10/07/18 11/13/20 Ramiro Schmidt MD [address] [place] [address], [address] [place] [address] [email or web address] Endocrinology 02/11/19 11/13/20 Enio Starkey MD [address] [place] [address], [address] [place] [address] [email or web address] Cardiology 02/11/19 11/13/20 Kenneth Carter MD [address] [place] [address] Neurology 02/11/19 11/13/20 Noe Mccann MD Ophthalmology 02/11/19 Audra Gutierrez MD [address] [place] [address] 2[address] [place] [address] [email or web address] Intensive Care 02/11/19 Edouard Mosley MD [address] [place] [address] [address] [place] [address] [email or web address] Plastic and Reconstructive Surgery 02/11/19 Nara Tejada MD [address] [place] [address], [address] [place] [address] [email or web address] Consulting Provider Nephrology 02/11/19 Jose Thomas MD [address] [place] [address] [email or web address] Consulting Provider Infectious Diseases 02/11/19 Trish Hammonds MD [address] [place] [address], [address] [place] [address] [email or web address] Rheumatology 02/11/19 Celina He DPM [address] [facility], [address] [place] [address] Podiatry 02/11/19 Olvin Harvey MD [address] [facility] Floor 1 [place] [address] [email or web address] Insurance Assigned Provider 04/12/17 03/06/19 Fbaián Seaman MD [address] [facility] [place] [address] [email or web address] Insurance Assigned Provider 03/06/19 07/09/19 Elizabeth Goode MD [address] [place] [address] [address] [place] [address] Psychologist 03/27/20 documented as of this encounter Additional Source Comments The information contained in this document represents components of the legal health record. It is not the complete legal health record.Located [facility]
--- OUTSIDE RECORDS SUMMARY | 2025-05-03 19:16 | XMS_ITS | Encounter Summary ---
Author Organization [facility] Address [address] [facility] [address] [place] [address] Phone Care Team Providers Care Podiatry Assistant Name Role Phone Noe Mccann MD Unavailable Unavailable Audra Gutierrez MD Unavailable Edouard Mosley MD Unavailable Nara Tejada MD Unavailable [phone] Jose Thomas MD Unavailable [phone] Trish Hammonds MD Unavailable Celina He DPM Unavailable Elizabeth Goode MD Unavailable Griselda Bello RN DOCUMENT IMPROVEMENT Primary Care Provider [phone] Encounter Details Date Type Department Care Team (Late st Contact Info) Description 04/27/2025 Telephone [facility] [address] [place] [address] 3rd Floor, [address] [place] [address] Minda Nelson, ESTRELLITA [address] [facility], [address] [place], [place] [phone] Social History Tobacco Use Types Packs/Day Years Used Date Smoking Tobacco: Former Cigarettes 2 45 1 966 - 2011 Passive Smoke Exposure: Past Smokeless Tobacco: Never [...] 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 * Jamilah Gautam MA - 04/27/2025 3:46 PM EST Patient's son called back wanting to provide the following numbers. Pacemaker: Serial number [id number] Ref number [id number] Pacer lead: Serial [id number] Ref number [id number] * Rosalba Oliva RN - 04/27/2025 11:14 AM EST I rec'd a call earlier from Bella's son inquiring how to administrative staff supervisor the home monitor after he called[employer] and they told him we need to create a profile for her? I explained I had no registration form or any other information on this device but would reach out to our [employer] [facility] to get the information. I will call Olvin back at [phone] once I have all the informaiton. * Corine Caballero RN - 04/27/2025 11:00 AM EST Pt left VM, she has questions regarding device and transmitter ? documented in this encounter Plan of Treatment Upcoming Encounters Date Type Department Care Team (Late st Contact Info) Description 04/28/2025 Procedure Pass Non-Invasive Cardiology [address] [place] [address] 05/12/2025 1:00 PM EST Appointment Non-Invasive Cardiology [address] [place] [address] [place] [address] Tano Dueñas MD [address] [place] [address] 07/29/2025 1:00 PM EST Office Visit [facility] [address] [place] [address] 3rd Floor, [address] [place] [address] Minda Nelson DNP [address] [place] [address] 08/31/2025 11:50 AM EDT Office Visit [facility] [address] [place] [address] Audra Gutierrez MD [address] [place] [address] 2nd [place] [address] documented as of this encounter Visit Diagnoses Not on filedocumented in this encounter 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 Assessment Noted Time PHQ-9 Depression Total Score: 20 021 1:11 PM EDT PHQ-2 Depression Total Score: 6 01/16/20 21 1:11 PM EDT documented as of this encounter Care Teams Podiatry Assistant Relationship Specialty Start Date End Date Griselda Bello NP [address] [place] [address] PCP - General Nurse Practitioner 01/26/25 Noe Mccann MD Ophthalmology 02/11/19 Audra Gutierrez MD [address] [place] [address] 2nd [place] [address] [email or web address] Intensive Care 02/11/19 Edouard Mosley MD [address] [place] [address], [address] [place] [address] [email or web address] Plastic and Reconstructive Surgery 02/11/19 Nara Tejada MD [address] [place] [address], [address] [place] [address] [email or web address] Consulting Provider Nephrology 02/11/19 Jose Thomas MD [address] [place] [address] [email or web address] Consulting Provider Infectious Diseases 02/11/19 Trish Hammonds MD [address] [place] [address] [email or web address] Rheumatology 02/11/19 Celina He DPM [address] [address] Podiatry 02/11/19 Elizabeth Goode MD [address] [place] [address] Psychologist 03/27/20 documented as of this encounter Additional Source Comments The information contained in this document represents components of the legal health record. It is not the complete legal health record.[facility]
--- OUTSIDE RECORDS SUMMARY | 2025-05-03 19:16 | XMS_ITS | Encounter Summary ---
Author Organization [facility] Address [address] [place] [address] Care Team Providers Care Radio Program Director Name Role Phone Martin Green Primary Care Provider [phone] Reason for Visit * Reason Onset Date Comments cs appointment reschedule 11/18/2022 Encounter Details Date Type Department Care Team (Late st Contact Info) Description 11/18/2022 Telephone [facility] Central Scheduling Department [address] [place] [address] Telephone Intake, Staff cs appointment reschedule Social [...] only come Fri, Friday or . Bella: [phone] Thank you documented in this encounter Plan of Treatment Upcoming Encounters Date Type Department Care Team (Late st Contact Info) Description 08/25/2025 2:00 PM EDT Office Visit [facility] [address] [place] [address] Mechanic Sound Technician: Kenneth Walsh MD PhD [address] [place] [phone] documented as of this encounter Visit Diagnoses Not on filedocumented in this encounter Care Teams Radio Program Director Relationship Specialty Start Date End Date Martin Green [address] [place] [phone] PCP - General Internal Medicine 10/08/18 documented as of this encounter
--- OUTSIDE RECORDS SUMMARY | 2025-05-03 19:16 | XMS_ITS | Encounter Summary ---
Author Organization [facility] Address [address] [place] [address] [address] [place] [address] Phone Care Team Providers Care Golf Cart Mechanic Name Role Phone Noe Mccann MD Unavailable Unavailable Audra Gutierrez MD Unavailable Edouard Mosley MD Unavailable Nara Tejada MD Unavailable [phone] Jose Thomas MD Unavailable [phone] Trish Hammonds MD Unavailable Celina He DPM Unavailable Elizabeth Goode MD Unavailable [phone] Martin Green MD Primary Care Provider [phone] Griselda Bello NP Primary Care Provider Encounter Details Date Type Department Care Team (Late st Contact Info) Description 07/28/2024 Procedure Pass [facility] Endoscopy Admitting Dept Virtual Department [address] [place], [place] [phone] Social History Tobacco Use Types Packs/Day Years [...] Job Start Date Job End Date Retired [employer] Not on file Not on file Not on file documented as of this encounter Plan of Treatment Upcoming Encounters Date Type Department Care Team (Late st Contact Info) Description 04/28/2025 Procedure Pass Non-Invasive Cardiology [address] [place] [address] 05/12/2025 1:00 PM EST Appointment Non-Invasive Cardiology [address] [place] [address] Tano Dueñas MD [address] [place] [address], [address] [place] [address] 07/29/2025 1:00 PM EST Office Visit [facility] [address] [facility] 3rd Floor, [address] [place] [address] Minda Nelson, ESTRELLITA [address] [facility], [address] [place] [address] 08/31/2025 11:50 AM EDT Office Visit [facility] [address] [place] [address] Audra Gutierrez MD [address] [place] [address] 2[address] [place] [address] [email or web address] documented as of this encounter Visit [...] of this encounter Care Teams Golf Cart Mechanic Relationship Specialty Start Date End Date Martin Green MD [address] [place] [phone] [email or web address] PCP - General Internal Medicine 05/26/23 01/25/25 Griselda Bello NP [address] [place] [address] PCP - General Nurse Practitioner 01/26/25 Noe Mccann MD Ophthalmology 02/11/19 Audra Gutierrez MD [address] [place] [address] 2nd [place] [address] [email or web address] Intensive Care 02/11/19 Edouard Mosley MD [address] [place] [address], [address] [place] [address] [email or web address] Plastic and Reconstructive Surgery 02/11/19 Nara Tejada MD [address] [place] [address], [address] [place] [address] [email or web address] Consulting Provider Nephrology 02/11/19 Jose Thomas MD [address] [place] [address] [email or web address] Consulting Provider Infectious Diseases 02/11/19 Trish Hammonds MD [address] [place] [address], [address] [address] [email or web address] Rheumatology 02/11/19 Celina He DPM [address] [place] [address], [address] [address] [email or web address] Podiatry 02/11/19 Elizabeth Goode MD [address] [facility] [address] [place] [address] Psychologist 03/27/20 documented as of this encounter Additional Source Comments The information contained in this document represents components of the legal health record. It is not the complete legal health record.[facility]
--- OUTSIDE RECORDS SUMMARY | 2025-05-03 19:16 | XMS_ITS | Clinical Summary ---
Author Organization [facility] Address [address] [place] [phone] Phone Care Team Providers Care Delivery Stock Clerk Name Role Phone Noe Mccann MD Unavailable Unavailable Audra Gutierrez MD Unavailable Edouard Mosley MD Unavailable Nara Tejada MD Unavailable [phone] Jose Thomas MD Unavailable [phone] Trish Hammonds MD Unavailable [phone] Celina He DPM Unavailable Elizabeth Goode MD Unavailable [phone] Griselda Bello HEALTHCARE FACILITY ADMINISTRATOR Primary Care Provider [phone] Allergies Active Allergy Reactions Criticality Noted Date [...] total) by mouth daily. Active multivitamin with cdfjsdcy-aooz-w olic acid (ONE-A-DAY WOMEN'S COMPLETE) 18 mg [...] 6 (six) hours as needed (insomnia). Active morphine (MSIR) 15 MG tablet Take 15 mg by mouth every 8 (eight) hours as needed. 2024 Discontinued lactulose (CONSTULOSE) 10 gram/15 mL solution Take 30 mL (20 g total) by mouth 3 (three) times a day. 2024 Discontinued(S top Taking at Discharge) linezolid (ZYVOX) 600 mg tablet Take 1 tablet (600 mg total) by mouth every 12 (twelve) hours for 10 doses. 2024 morphine (MSIR) 15 MG tablet Take 1 tablet (15 mg total) by mouth every 8 (eight) hours as needed for pain (specific location in comments). 9 tablet 2024 Active Problems Problem Noted Date Diagnosed Date [...] transitioned to diltiazem with adequate rate control. [place] to be possibly related to volume overload [...] Cardiology f/u 04/28/25 at 1:45 pm with [facility] Assessment & Plan (04/13/2025 4:07 [...] transitioned to diltiazem with adequate rate control. [place] to be possibly related to volume overload [...] Cardiology f/u 04/28/25 at 1:45 pm with [facility] Assessment & Plan (04/12/2025 3:48 [...] transitioned to diltiazem with adequate rate control. [place] to be possibly related to volume overload [...] Cardiology f/u 04/28/25 at 1:45 pm with [facility] Assessment & Plan (04/11/2025 6:03 [...] transitioned to diltiazem with adequate rate control. [place] to be possibly related to volume overload [...] Cardiology f/u 04/28/25 at 1:45 pm with [facility] Assessment & Plan (04/10/2025 4:46 [...] transitioned to diltiazem with adequate rate control. [place] to be possibly related to volume overload [...] Cardiology f/u 04/28/25 at 1:45 pm with [facility] Assessment & Plan (04/09/2025 11:38 [...] transitioned to diltiazem with adequate rate control. [place] to be possibly related to volume overload [...] -Cardiology f/u 04/28/25 at 1:45 pm with [facility] Assessment & Plan (04/08/2025 1:48 [...] transitioned to diltiazem with adequate rate control. [place] to be possibly related to volume overload [...] -Cardiology f/u 04/28/25 at 1:45 pm with [facility] Assessment & Plan (04/07/2025 4:02 [...] EST): # Coagulopathy (improved) Initially presented to [facility] in acute liver failure, with INR of [...] EST): # Coagulopathy (improved) Initially presented to [facility] in acute liver failure, with INR of [...] was treated with NAC for non APAP RETIREMENT X4 days (03/17-03/20). Initially started on lactulose [...] EST): # Coagulopathy (improved) Initially presented to [facility] in acute liver failure, with INR of [...] was treated with NAC for non APAP RETIREMENT X4 days (03/17-03/20). Initially started on lactulose [...] EST): # Coagulopathy (improved) Initially presented to [facility] in acute liver failure, with INR of [...] EST): # Coagulopathy (improved) Initially presented to [facility] in acute liver failure, with INR of [...] AM EDT): #Coagulopathy (improved) Initially presented to [facility] in acute liver failure, with INR of [...] PM EDT): #Coagulopathy (improved) Initially presented to [facility] in acute liver failure, with INR of [...] AM EDT): #Coagulopathy (improved) Initially presented to [facility] in acute liver failure, with INR of [...] PM EDT): #Coagulopathy (improved) Initially presented to [facility] in acute liver failure, with INR of [...] was also treated with NAC for non-APAP RETIREMENT x 4 days (03/17-), and started on [...] AM EDT): #Coagulopathy (improved) Initially presented to [facility] in acute liver failure, with INR of [...] was also treated with NAC for non-APAP RETIREMENT x 4 days (03/17-), and started on [...] PM EDT): #Coagulopathy (improved) Initially presented to [facility] in acute liver failure, with INR of [...] was also treated with NAC for non-APAP RETIREMENT x 4 days (03/17-), and started on [...] PM EDT): #Coagulopathy (improved) Initially presented to [facility] in acute liver failure, with INR of [...] was also treated with NAC for non-APAP RETIREMENT x 4 days (03/17-), and started on [...] PM EDT): #Coagulopathy (improved) Initially presented to [facility] in acute liver failure, with INR of [...] was also treated with NAC for non-APAP RETIREMENT x 4 days (03/17-), and started on [...] AM EDT): #Coagulopathy (improved) Initially presented to [facility] in acute liver failure, with INR of [...] was also treated with NAC for non-APAP RETIREMENT x 4 days (03/17-), and started on [...] AM EDT): #Coagulopathy (improved) Initially presented to [facility] in acute liver failure, with INR of [...] AM EDT): #Coagulopathy (improved) Initially presented to [facility] in acute liver failure, with INR of [...] PM EDT): #Coagulopathy (improved) Initially presented to [facility] in acute liver failure, with INR of [...] was also treated with NAC for non-APAP RETIREMENT x 4 days (03/17-), and started on [...] PM EDT): #Coagulopathy (improved) Initially presented to [facility] in acute liver failure, with INR of [...] was also treated with NAC for non-APAP RETIREMENT x 4 days (03/17-), and started on [...] PM EDT): #Coagulopathy (improved) Initially presented to [facility] in acute liver failure, with INR of [...] PM EDT): #Coagulopathy (improved) Initially presented to [facility] in acute liver failure, with INR of [...] was also treated with NAC for non-APAP RETIREMENT x 4 days (03/17-), and started on [...] PM EDT): #Coagulopathy (improved) Initially presented to [facility] in acute liver failure, with INR of [...] PM EDT): #Coagulopathy (improved) Initially presented to [facility] in acute liver failure, with INR of [...] PM EDT): #Coagulopathy (improved) Initially presented to [facility] in acute liver failure, with INR of [...] PM EDT): #Coagulopathy (improved) Initially presented to [facility] in acute liver failure, with INR of [...] most likely. Treated with NAC for non-APAP EMA x 4 days (03/17-) per GI and [...] most likely. Treated with NAC for non-APAP RETIREMENT x 4 days (03/17-) per GI and [...] effect. - Ensure regular BMs - Appreciate GRINDING WHEEL INSPECTOR following --- Advanced to regular diet, carb [...] effect. - Ensure regular BMs - Appreciate GRINDING WHEEL INSPECTOR following --- Advanced to regular diet, carb [...] effect. - Ensure regular BMs - Appreciate GRINDING WHEEL INSPECTOR following --- Advanced to regular diet, carb [...] effect. - Ensure regular BMs - Appreciate GRINDING WHEEL INSPECTOR following --- Advanced to regular diet, carb [...] effect. - Ensure regular BMs - Appreciate GRINDING WHEEL INSPECTOR following --- Advanced to regular diet, carb [...] effect. - Ensure regular BMs - Appreciate GRINDING WHEEL INSPECTOR following --- Advanced to regular diet, carb [...] effect. - Ensure regular BMs - Appreciate GRINDING WHEEL INSPECTOR following --- Advanced to regular diet, carb [...] effect. - Ensure regular BMs - Appreciate GRINDING WHEEL INSPECTOR following --- Advanced to regular diet, carb [...] effect. - Ensure regular BMs - Appreciate GRINDING WHEEL INSPECTOR following --- Advanced to regular diet, carb [...] effect. - Ensure regular BMs - Appreciate GRINDING WHEEL INSPECTOR following --- Advanced to regular diet, carb [...] effect. - Ensure regular BMs - Appreciate GRINDING WHEEL INSPECTOR following --- Advanced to regular diet, carb [...] effect. - Ensure regular BMs - Appreciate GRINDING WHEEL INSPECTOR following --- Dysphagia soft & bite sized [...] effect. - Ensure regular BMs - Appreciate GRINDING WHEEL INSPECTOR following --- Dysphagia soft & bite sized [...] earlier - Ensure regular BMs - Appreciate GRINDING WHEEL INSPECTOR following --- Dysphagia soft & bite sized [...] PRN - Ensure regular BMs - Appreciate GRINDING WHEEL INSPECTOR following --- Dysphagia soft & bite sized [...] PRN - Ensure regular BMs - Appreciate GRINDING WHEEL INSPECTOR following --- Dysphagia soft & bite sized [...] PRN - Ensure regular BMs - Appreciate GRINDING WHEEL INSPECTOR following --- Dysphagia soft & bite sized [...] PRN - Ensure regular BMs - Appreciate GRINDING WHEEL INSPECTOR following --- Dysphagia soft & bite sized [...] - Continue rifaximin 550mg BID - Appreciate GRINDING WHEEL INSPECTOR following - dysphagia soft & bite sized [...] - Continue rifaximin 550mg BID - Appreciate GRINDING WHEEL INSPECTOR following - dysphagia soft & bite sized [...] improved though still not back to baseline. GRINDING WHEEL INSPECTOR evaluated and cleared her for dysphagia soft & bite sized + thin liquids with aspiration precautions and 1:1 feeding assistance. - CTM mental status - For agitation: --- PO trazodone 25mg (1st line; 12.5mg was ineffective) --- IV zyprexa 2.5-5mg (2nd line or refusing PO) - Continue rifaximin 550mg BID - Holding home modafinil, adderall, amantadine, valium for now - Appreciate GRINDING WHEEL INSPECTOR following - Liquid diet for bowel rest [...] improved though still not back to baseline. GRINDING WHEEL INSPECTOR evaluated and cleared her for dysphagia soft [...] adderall, amantadine, valium for now - Appreciate GRINDING WHEEL INSPECTOR following - CLD for bowel rest in [...] improved though still not back to baseline. GRINDING WHEEL INSPECTOR evaluated and cleared her for dysphagia soft [...] adderall, amantadine, valium for now - Appreciate GRINDING WHEEL INSPECTOR following - NPO for bowel rest in [...] improved though still not back to baseline. GRINDING WHEEL INSPECTOR evaluated and cleared her for dysphagia soft & bite sized + thin liquids with aspiration precautions and 1:1 feeding assistance. - CTM mental status - Continue lactulose 20g TID + rifaximin 550mg BID - Continue home modafinil 100mg BID; holding home adderall, amantadine, valium for now - Appreciate GRINDING WHEEL INSPECTOR following - NPO for bowel rest in [...] transfer to the floor 03/20. Seen by GRINDING WHEEL INSPECTOR who noted no swallowing issues with main limitation related to delirium; cleared her for dysphagia soft & bite sized + thin liquids with aspiration precautions and 1:1 feeding assistance. Tolerating thus far. - CTM mental status - Continue lactulose 20g TID + rifaximin 550mg BID - Continue home modafinil 100mg BID; holding home adderall, amantadine, valium for now - Appreciate GRINDING WHEEL INSPECTOR following; cont dysphagia soft & bite-sized solids [...] amantadine, valium for now - Seen by GRINDING WHEEL INSPECTOR 03/20: swallow is OK but delirium is [...] history of dyspnea, followed by cardiology at [facility]. Work-up had been relatively negative, including PFTs, [...] history of dyspnea, followed by cardiology at [facility]. Work-up had been relatively negative, including PFTs, [...] history of dyspnea, followed by cardiology at [facility]. Work-up had been relatively negative, including PFTs, [...] history of dyspnea, followed by cardiology at [facility]. Work-up had been relatively negative, including PFTs, [...] history of dyspnea, followed by cardiology at [facility]. Work-up had been relatively negative, including PFTs, [...] history of dyspnea, followed by cardiology at [facility]. Work-up had been relatively negative, including PFTs, [...] history of dyspnea, followed by cardiology at [facility]. Work-up had been relatively negative, including PFTs, [...] history of dyspnea, followed by cardiology at [facility]. Work-up had been relatively negative, including PFTs, [...] history of dyspnea, followed by cardiology at [facility]. Work-up had been relatively negative, including PFTs, [...] SGLT2-I, though will defer at this time. [employer] copay $0 sent 03/30 - Standing weights [...] definitive pulmonary hypertension, and reduced EF (57%). 10/22 evening patient c/o chest pain with HR [...] HOLD home clonidine given recent bradycardia at [facility] and junctional rhythm - HOLD home ASA [...] HOLD home clonidine given recent bradycardia at [facility] and junctional rhythm - HOLD home ASA [...] HOLD home clonidine given recent bradycardia at [facility] and junctional rhythm - HOLD home ASA [...] HOLD home clonidine given recent bradycardia at [facility] and junctional rhythm - HOLD home ASA [...] HOLD home clonidine given recent bradycardia at [facility] and junctional rhythm - HOLD home ASA [...] HOLD home clonidine given recent bradycardia at [facility] and junctional rhythm - HOLD home ASA [...] (03/21/2025 10:17 AM EDT): On presentation to [facility] INR elevated to 7.7 iso # acute [...] (03/20/2025 2:00 PM EDT): On presentation to [facility] INR elevated to 7.7 iso # ALI. [...] slightly elevated low teens on transfer to [facility], normalizing by 03/18, then rising again 8->10->12->17 [...] slightly elevated low teens on transfer to [facility], normalizing by 03/18, then rising again 8->10->12->17 [...] Baseline Cr. ~1.5. Transferred from OSH to [facility] MICU on 03/17 with SANDRA up to [...] Baseline Cr. ~1.5. Transferred from OSH to [facility] on 03/17 with SANDRA up to [...] Baseline Cr. ~1.5. Transferred from OSH to [facility] on 03/17 with SANDRA up to [...] Baseline Cr. ~1.5. Transferred from OSH to [facility] on 03/17 with SANDRA up to [...] Baseline Cr. ~1.5. Transferred from OSH to [facility] on 03/17 with SANDRA up to [...] Baseline Cr. ~1.5. Transferred from OSH to [facility] on 03/17 with SANDRA up to [...] Baseline Cr. ~1.5. Transferred from OSH to [facility] on 03/17 with SANDRA up to [...] Baseline Cr. ~1.5. Transferred from OSH to [facility] on 03/17 with SANDRA up to [...] Baseline Cr. ~1.5. Transferred from OSH to [facility] on 03/17 with SANDRA up to [...] Baseline Cr. ~1.5. Transferred from OSH to [facility] on 03/17 with SANDRA up to [...] Baseline Cr. ~1.5. Transferred from OSH to [facility] on 03/17 with SANDRA up to [...] Baseline Cr. ~1.5. Transferred from OSH to [facility] on 03/17 with SANDRA up to [...] Baseline Cr. ~1.5. Transferred from OSH to [facility] on 03/17 with SANDRA up to [...] Baseline Cr. ~1.5. Transferred from OSH to [facility] on 03/17 with SANDRA up to [...] Baseline Cr. ~1.5. Transferred from OSH to [facility] on 03/17 with SANDRA up to [...] Baseline Cr. ~1.5. Transferred from OSH to [facility] on 03/17 with SANDRA up to [...] Baseline Cr. ~1.5. Transferred from OSH to [facility] on 03/17 with SANDRA up to [...] Baseline Cr. ~1.5. Transferred from OSH to [facility] on 03/17 with SANDRA up to [...] Baseline Cr. ~1.5. Transferred from OSH to [facility] on 03/17 with SANDRA up to [...] Baseline Cr. ~1.5. Transferred from OSH to [facility] on 03/17 with SANDRA up to [...] Baseline Cr. ~1.5. Transferred from OSH to [facility] on 03/17 with SANDRA up to [...] Baseline Cr. ~1.5. Transferred from OSH to [facility] on 03/17 with SANDRA up to [...] Baseline Cr. ~1.5. Transferred from OSH to [facility] on 03/17 with SANDRA up to [...] Baseline Cr. ~1.5. Transferred from OSH to [facility] on 03/17 with SANDRA up to [...] with Cr peak at 4.9. Transferred to [facility] given concern for potential need for [...] down-trending, now to 1.8. No indication for BUSINESS SUPPORT COORDINATOR. - Appreciate renal consult, now signed off [...] off and pt not on any diuretics SWEAT BOX ATTENDANT aside from spironolactone 25mg Assessment & Plan (03/20/2025 2:00 PM EDT): Patient has hx CKD with baseline Cr ~1.5. Presented to OSH 03/10 with SANDRA with Cr peak at 4.9. Transferred to [facility] given concern for potential need for [...] down-trending, now to 2.5. No indication for BUSINESS SUPPORT COORDINATOR. - Appreciate renal following & recs - [...] OSH with acute kidney injury, transferred to [facility] for consideration of CVVH if needed. Cr [...] 5 mg BID # MS Follows with [facility] neurology Dr. Carter for long-standing hx MS. [...] 5 mg BID # MS Follows with [facility] neurology Dr. Carter for long-standing hx MS. [...] 5 mg BID # MS Follows with [facility] neurology Dr. Carter for long-standing hx MS. [...] 5 mg BID # MS Follows with [facility] neurology Dr. Carter for long-standing hx MS. [...] 5 mg BID # MS Follows with [facility] neurology Dr. Carter for long-standing hx MS. [...] apixaban 5 mg BID #MS Follows with [facility] neurology Dr. Carter for long-standing hx MS. Recent MRI brain 03/05 showed no changes in white matter lesions or evidence of progressive disease. - Holding home modafinil, amantadine, adderall for now as above #Asthma Follows with [facility] Dr uGtierrez, managed on azithromycin 250mg daily and dupixent, [...] apixaban 5 mg BID #MS Follows with [facility] neurology Dr. Carter for long-standing hx MS. [...] apixaban 5 mg BID #MS Follows with [facility] neurology Dr. Carter for long-standing hx MS. [...] apixaban 5 mg BID #MS Follows with [facility] neurology Dr. Carter for long-standing hx MS. [...] now on therapeutic lovenox. #MS Follows with [facility] neurology Dr. Carter for long-standing hx MS. [...] now on therapeutic lovenox. #MS Follows with [facility] neurology Dr. Carter for long-standing hx MS. [...] now on therapeutic lovenox. #MS Follows with [facility] neurology Dr. Carter for long-standing hx MS. [...] - Resume home apixiban #MS Follows with [facility] neurology Dr. Carter for long-standing hx MS. [...] - Resume home apixiban #MS Follows with [facility] neurology Dr. Carter for long-standing hx MS. [...] home apixiban tomorrow 04/01 #MS Follows with [facility] neurology Dr. Carter for long-standing hx MS. [...] SDH, resume as able. #MS Follows with [facility] neurology Dr. Carter for long-standing hx MS. [...] SDH, resume as able. #MS Follows with [facility] neurology Dr. Carter for long-standing hx MS. [...] SDH, resume as able. #MS Follows with [facility] neurology Dr. Carter for long-standing hx MS. [...] (03/27/2025 7:17 AM EDT): #MS Follows with [facility] neurology Dr. Carter for long-standing hx MS. [...] (03/26/2025 6:37 PM EDT): #MS Follows with [facility] neurology Dr. Carter for long-standing hx MS. [...] (03/25/2025 12:00 PM EDT): #MS Follows with [facility] neurology Dr. Carter for long-standing hx MS. [...] (03/24/2025 2:39 PM EDT): #MS Follows with [facility] neurology Dr. Carter for long-standing hx MS. [...] (03/23/2025 9:02 AM EDT): #MS Follows with [facility] neurology Dr. Carter for long-standing hx MS. [...] (03/22/2025 2:00 PM EDT): #MS Follows with [facility] neurology Dr. Carter for long-standing hx MS. [...] transfer patient to our liver center in [place] - Persistent lower extremity edema proteinuria not [...] transfer patient to our liver center in [place] - Persistent lower extremity edema proteinuria not [...] active T&S - current exp 03/24 @ 8458 Assessment & Plan (03/22/2025 2:00 PM EDT): [...] active T&S - current exp 03/24 @ 2358 Assessment & Plan (03/21/2025 10:17 AM EDT): [...] active T&S - current exp 03/24 @ 2359 Assessment & Plan (03/20/2025 2:00 PM EDT): [...] iron deficiency - 07/23 held anticoagulation - /15 held aspirin - 2/15 1 unit of blood transfused - 07/25 [...] iron deficiency - 07/23 held anticoagulation - /15 holding aspirin - 15 hemoglobin has continued [...] Assessment & Plan (03/21/2025 7:24 AM EDT): SWEAT BOX ATTENDANT meds include clonidine 0.1mg BID and spironolactone 25mg qd. BPs have generally been elevated this admission, with SBP ~140s-160s. - Holding home clonidine, spironolactone for now Assessment & Plan (03/20/2025 2:00 PM EDT): SWEAT BOX ATTENDANT meds include clonidine 0.1mg BID and spironolactone [...] Plan (07/22/2024 2:44 PM EST): Possibly from [facility], though that seems unlikely. Was started on [...] She is reporting some swallowing difficulty -- GRINDING WHEEL INSPECTOR eval --Patient requests minced and moist diet [...] that it would come right back. Seeing cvt rn. Pain is getting worse. Hypokalemia 05/24/2021 Assessment [...] prior to exertion as instructed by her music library assistant and neurologist-close follow-up as scheduled. Assessment & Plan (05/24/2021 2:34 PM EST): Recommend compression stockings. Send to [facility]. Assessment & Plan (12/17/2020 2:38 PM EDT): Continue midodrine, compression stockings and Pedialyte prior to exertion as instructed by her music library assistant and neurologist-close follow-up as scheduled. Assessment & [...] nightly use. Contact the supplier and treating music library assistant/sleep specialist to discuss adjustments/different options. Assessment & [...] Patient is not due to see a industrial cafeteria manager for another month. Not actively having chest pain now but I do worry about coronary artery disease given her history of HI and stent over 10 years ago. I will order a stress test prior to her visit with her industrial cafeteria manager. She did have an echo as an [...] patient will need to stop vaginal estogen, beer brewer recommends can use coconut oil or A+D [...] for second opinion from Lucie Sewell at [facility] whom she is due to see on [...] supplements. 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 - Resumed home Eliquis 03/21. Cont [...] reading book written by Dr Mike Hernandez Full catastrophe living addressing management strategies for patients [...] are any specialists in the disease at [facility]. Assessment & Plan (10/17/2018 12:17 PM EDT): [...] prophylaxis due to known CAD and prior HI. Avoid falls, injuries and cuts. Monitor for excessive bruising and bleeding. Assessment & Plan (09/26/2021 4:01 PM EDT): Patient reports she's not taking any Aspirin. I counseled her on the importance of this therapy given her known CAD and previous HI. It appears she was healthy believe that [...] to drive [place] a [place] on the [employer] trail but due to fears of [facility], givenher muslim petra, she will not commit suicide. Advised to continue to follow with her psychologist. 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 Assessment & Plan (05/24/2023 5:11 PM EST): Continue close follow-up with her d PCP + pelt dropper + enterprise resource analyst + diabetic nurse educator as scheduled. Assessment & Plan (03/23/2021 7:10 PM EDT): POC QID with meals and HS, and insulin SS for now. Held [employer] home med. Assessment & Plan (03/29/2020 4:27 PM EDT): -- glipizide held - last received her [employer] on - hemoglobin A1c 10.5 - adjusting [...] Plan (03/21/2025 7:24 AM EDT): Follows with [facility] neurology Dr. Carter for long-standing hx MS. Recent MRI brain 03/05 showed no changes in white matter lesions or evidence of progressive disease. - Holding home amantadine, adderall for now - Cont home modafinil 100mg BID Assessment & Plan (03/20/2025 2:00 PM EDT): Follows with [facility] neurology Dr. Carter for long-standing hx MS. [...] multiple sclerosis diagnosed in 1995 followed by [facility] neurology, not currently on treatment. Experiencing increasing neurological complications with cognitive/speech/mobility. Had a recent MRI which is pending review by her neurologist. - Fall precaution -Continue management as above -Will need follow-up with [facility] for treatment plan options Assessment & Plan (07/28/2024 4:15 PM EST): 07/[address] Kenneth Carter [facility] neuro office, held and ultimately left a message - 07/25 resumed home med amantadine (renally dosed) - methenamine prophylaxis held while renal function improving; resume at discharge Assessment & Plan (07/27/2024 1:50 PM EST): 07/[address] Kenneth Carter [facility] neuro office, held and ultimately left a message - 07/25 resumed home med amantadine (renally dosed) - methenamine prophylaxis held while renal function improving; resume at discharge Assessment & Plan (07/26/2024 12:30 PM EST): 07/[address] Kenneth Carter [facility] neuro office, held and ultimately left a message - 07/25 resumed home med amantadine (renally dosed) - methenamine prophylaxis held while renal function improving Assessment & Plan (07/25/2024 11:56 AM EST): 07/[address] Kenneth Carter [facility] neuro office, held and ultimately left a message - 07/25 resumed home med amantadine (renally dosed) - methenamine prophylaxis held while renal function improving Assessment & Plan (07/24/2024 9:58 AM EST): 07/[address] Kenneth Carter [facility] neuro office, held and ultimately left a message Assessment & Plan (07/23/2024 4:46 PM EST): Called her neurologist Dr. Kenneth Carter [facility] neuro office, held and ultimately left a [...] Oral Dulcolax for constipation --Neurologist is at [facility] Assessment & Plan (04/22/2023 11:00 AM EST): [...] EST): Progressive symptoms. Following with doctor in [place]. Considering switching to another group in [place] that might be closer. Assessment & Plan (07/02/2019 9:31 AM EST): Continue diazepam as prescribed. Close follow-up with treating neurologist. Assessment & Plan (05/13/2019 5:54 PM EST): Continue diazepam as prescribed. Close follow-up with treating neurologist. Assessment & Plan (04/28/2019 3:28 PM EST): Suspect much of her sxs are progressive MS. She has a neurologist at [facility] she sees. Will try a dose of Kenalog 80mg IM. Assessment & Plan (12/06/2018 11:20 AM EDT): Has not found any benefit from prednisone in the past. She does see a new neurologist at [place]. Perhaps they will have other ideas dyspnea. [...] modifying therapy for MS. 2. Consult with [facility] Rheumatology requested. This would be facilitated by [...] (07/27/2024 1:50 PM EST): Continue morphine - 214 chest pain, seems noncardiac, improved - PE unlikely not hypoxic -using prn oral morphine 1-2 times daily Assessment & Plan (07/26/2024 12:30 PM EST): Continue morphine - 214 chest pain, seems noncardiac, improved - PE [...] everyone will blame her MS. Atherosclerosis of [place] co ronary artery of [place] heart without angina pectoris 04/23/2017 Overview (12/07/2019): [...] (05/26/2023 11:29 PM EST): Renal function stable. care home current use of systemic steroids 05/21/2023 02/26/2024 [...] fever, abdominal pain, HD instability) and notify [facility] team Assessment & Plan (04/10/2025 4:46 PM [...] fever, abdominal pain, HD instability) and notify [facility] team Assessment & Plan (04/09/2025 11:38 AM [...] fever, abdominal pain, HD instability) and notify [facility] team Assessment & Plan (04/08/2025 1:48 PM [...] fever, abdominal pain, HD instability) and notify [facility] team Assessment & Plan (04/07/2025 11:36 AM [...] worsening colitis, with possible right-sided colonic pneumatosis. [place] most likely to be ischemic from venous [...] fever, abdominal pain, HD instability) and notify [facility] team Assessment & Plan (04/06/2025 2:39 PM [...] worsening colitis, with possible right-sided colonic pneumatosis. [place] most likely to be ischemic from venous [...] fever, abdominal pain, HD instability) and notify [place] [facility] Assessment & Plan (04/05/2025 8:06 [...] worsening colitis, with possible right-sided colonic pneumatosis. [place] most likely to be ischemic from venous [...] fever, abdominal pain, HD instability) and notify [place] [facility] team Assessment & Plan (04/04/2025 4:38 [...] worsening colitis, with possible right-sided colonic pneumatosis. [place] most likely to be ischemic from venous [...] fever, abdominal pain, HD instability) and notify [facility] team Assessment & Plan (04/03/2025 1:14 PM [...] worsening colitis, with possible right-sided colonic pneumatosis. [place] most likely to be ischemic from venous [...] fever, abdominal pain, HD instability) and notify [facility] team Assessment & Plan (04/02/2025 5:28 PM [...] worsening colitis, with possible right-sided colonic pneumatosis. [place] most likely to be ischemic from venous [...] fever, abdominal pain, HD instability) and notify [facility] team Assessment & Plan (04/01/2025 7:39 AM [...] worsening colitis, with possible right-sided colonic pneumatosis. [place] most likely to be ischemic from venous [...] fever, abdominal pain, HD instability) and notify [facility] team Assessment & Plan (03/31/2025 4:37 PM [...] worsening colitis, with possible right-sided colonic pneumatosis. [place] most likely to be ischemic from venous [...] fever, abdominal pain, HD instability) and notify [place] [facility] team Assessment & Plan (03/30/2025 7:19 [...] worsening colitis, with possible right-sided colonic pneumatosis. [place] most likely to be ischemic from venous [...] fever, abdominal pain, HD instability) and notify [place] [facility] team Assessment & Plan (03/29/2025 5:37 [...] worsening colitis, with possible right-sided colonic pneumatosis. [place] most likely to be ischemic from venous [...] fever, abdominal pain, HD instability) and notify [place] [facility] team Assessment & Plan (03/28/2025 6:38 [...] worsening colitis, with possible right-sided colonic pneumatosis. [place] most likely to be ischemic from venous [...] fever, abdominal pain, HD instability) and notify [place] [facility] team Assessment & Plan (03/27/2025 6:39 [...] worsening colitis, with possible right-sided colonic pneumatosis. [place] most likely to be ischemic from venous [...] In the event patient becomes unstable, notify [place] team Assessment & Plan (03/26/2025 6:37 PM [...] worsening colitis, with possible right-sided colonic pneumatosis. [place] most likely to be ischemic from venous [...] In the event patient becomes unstable, notify [facility] team Assessment & Plan (03/25/2025 12:00 PM [...] worsening colitis, with possible right-sided colonic pneumatosis. [place] most likely to be ischemic from venous [...] In the event patient becomes unstable, notify [facility] team Assessment & Plan (03/24/2025 4:37 PM [...] In the event patient becomes unstable, notify [facility] team Assessment & Plan (03/23/2025 2:31 PM [...] ICU for continued medical management and notify [facility] team. 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 04/29/2017 10/18/2017 Assessment & Plan (10/18/2017 5:18 PM EDT): Due to somnolence pain medication held Dyslipidemia 10/14/2013 09/23/2018 Overview (08/04/2017): Overview: Dyslipidemia Assessment & Plan (08/06/2018 8:18 PM EST): No meds Encounters Date Type Department Care Team Description 04/28/2025 Ancillary Orders [facility] [address] 3rd Floor, [address] [place] [address] Tano Dueñas MD Cerebrovascular accident (CVA), unspecified mechanism (Primary Dx) 04/27/2025 [facility] [address], [address] [place] [address] Minda Nelson DNP 04/15/2025 Lab Requisition [facility] Lab Main [address] [place] [address] Virginia Gonsales MD Encounter for general adult medical examination without abnormal findings 04/15/2025 Lab Requisition [facility] Lab Main [address] [place] [address] Alia Vail DNP Encounter for general adult medical examination without abnormal findings 04/15/2025 Lab Requisition [facility] Lab Main [address] [place] [address] Alia Vail DNP Encounter for general adult medical examination without abnormal findings 04/10/2025 Orders Only [facility] Blood Bank [address] [place] [address] Ishmael Sanchez MD, MPH 04/05/2025 11:40 AM EDT - 04/05/2025 1:15 PM EDT Surgery [facility] Cardiac Ed Teacher [address], [address], [address] [place] [address] Baron Shabazz MD Coronary Arteriogram with Possible Intervention 04/05/2025 Procedure Pass [facility] Cardiac Ed Teacher [address], Floor [address], [address] [place] [address] 04/04/2025 Procedure Pass [facility], Josh [address], 2nd Floor, [address] [place] [address] 04/03/2025 Procedure Pass [facility] CT, Josh [address] [facility], 2nd Floor, [address] [place] [address] 03/31/2025 Procedure Pass [facility] Emergency Imaging, Main [place] [address], Floor 1 [place] [address] 03/26/2025 Procedure Pass [facility] CT, Josh [address] [facility], 2nd Floor, [address] [place] [address] 03/26/2025 Procedure Pass [facility] CT, Josh [address] [facility], 2nd Floor, [address] [place] [address] 03/24/2025 Procedure Pass [facility] Cardiac US [address] [place] [address] 03/23/2025 Procedure Pass [facility] CT, Josh [address] [facility], 2nd Floor, [address] [place] [address] 03/21/2025 Procedure Pass [facility], Josh [address] [facility], 2nd Floor, [address] [place] [address] 03/21/2025 Procedure Pass [facility] CT, Josh [address] [facility], 2nd Floor, [address] [place] [address] 03/18/2025 Orders Only [facility] [address] [place] [id number] Homehealth, Harriet Garrido MD 03/17/2025 7:03 PM EDT - 04/15/2025 12:40 PM EST Hospital Encounter [facility] [address] [place] [address] Patrick Troncoso MD [facility] Anup Chapman, MD Celina Shafer Warren, MD Gwyn, MD Ralph Morataya, Janusz Regalado MD, MPH Sybil, Barry Regalado MD, MPH Virginia Gonsales MD George, Adria Caballero MD Discharge Disposition: [facility]sp Facility 03/17/2025 Procedure Pass [facility] Cardiac US [address] [place] [address] 03/17/2025 Procedure Pass [facility], Josh [address] [facility], 2nd Floor, [address] [place] [address] 03/17/2025 Procedure Pass [facility], Ct Scan - [address] [address] 03/11/2025 Procedure Pass [facility], Mri - [address] [address] 03/10/2025 12:49 PM EDT - 03/17/2025 4:30 PM EDT Hospital Encounter [facility] [address] [place] [address] Tim Grossman MD Israeli, Diana A, DO Albury, Lois C, MD Miskovsky, Glenn E, MD Lu, Sarah Hernandez MD, PhD Quiana Hernandez MD Discharge Disposition: Short Term Hospital 03/10/2025 Procedure Pass [facility] Echo Lab [address] [place] [address] 03/10/2025 Home Care Visit [facility] [address] [place] [address] Che Giles RN TELEPHONE ENCOUNTER 03/10/2025 Telephone [facility] Rheumatology [address] [place] [address] Trish Hammonds MD Appointment 03/08/2025 Orders Only [facility] [address] [place] [address] Homehealth, Interface ProviderMD 03/07/2025 12:33 PM EDT - 03/08/2025 3:17 PM EDT Hospital Encounter [facility] [place] [address] [address] [place] [address] Omari Peoples MD Wong, MD Marielena Mcneil Brianna R, DO, MPH Discharge Disposition: [place] [facility] 03/03/2025 Telephone [facility] All[facility] Critical [facility] Medicine [address] [place] [address] Eloisa Grant orders for labs, XR chest and resp smear to [facility] 02/23/2025 2:00 PM EDT Office Visit [facility] [address] [place] [address] Audra Gutierrez MD Shortness of breath (Primary Dx); Severe persistent asthma, unspecified whether complicated 01/31/2025 Telephone [facility] [address] [place] [address] Farrah GramajoMARE 01/30/2025 10:47 PM EDT - 01/31/2025 7:18 AM EDT Emergency [facility] [address] [place] [address] Alan Deleon MD Perez, Alberto Juan Ignacio, MD Discharge Disposition: Home or Self Care from Last 3 Months Immunizations Immunization Administration [...] Father Premature CHD Father first of 5 HI's age 42 Heart attack Maternal Aunt Carotid [...] 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 Not on file [...] cm (5' 2.01 ) 03/18/2025 3:00 PM ED T Body Mass Index 25.11 03/18/2025 3:00 PM EDT Plan of Treatment Upcoming Encounters Date Type Department Care Team (Late st Contact Info) Description 04/28/2025 Procedure Pass Non-Invasive Cardiology [address] [place] [address] [place] [address] 05/12/2025 1:00 PM EST Appointment Non-Invasive Cardiology [address] [place] [address] [place] [address] Tano Dueñas MD [address] [place] [address] 07/29/2025 1:00 PM EST Office Visit [facility] [address] [place] [address] 3rd Floor, [address] [address] Minda Nelson DNP [address] [place] [address] 08/31/2025 11:50 AM EDT Office Visit [facility] [address] [place] [address] Audra Gutierrez MD [address] [place] [address] Health Maintenance Due Date Last Done Comments [...] Additional history exists POTASSIUM LEVEL 04/15/2026 04/15/2025, 11/2024, 04/13/2025, Additional history exists COLONOSCOPY 07/29/2027 07/28/2024, 10/05/2018 COLORECTAL CANCER SCREENING 07/29/2027 Adult Td,Tdap Booster 10/20/2028 10/20/2018, 07/05/2 013 OSTEOPOROSIS SCREENING INITIAL (ONE-TIME) Completed 12/16/2018 [...] this topic Medical Devices Implanted Type Area Pulp Bleacher Device Identifier Shelf Expiration Date Model / Serial / Lot Clip Clip Stent Stent Heart Procedures Procedure Name Priority Date/Time Associated Diagnosis Comments OUTSIDE CARDIOLOGY 04/19/2025 POCT GLUCOSE Routine 04/15/2025 12:11 PM EST [...] 5:45 AM EST C-REACTIVE PROTEIN (CRP) Routine 025 5:45 AM EST CBC AND DIFFERENTIAL Routine [...] POCT GLUCOSE Routine 04/09/2025 11:42 AM EDT ECG 12-LEAD Routine 04/09/2025 11:11 AM EDT POCT GLUCOSE Routine 04/09/2025 7:28 [...] CHEST PORTABLE Routine 04/06/2025 10:43 AM EDT ECG 12-LEAD Routine 04/06/2025 10:23 AM EDT PREPARE RBC Routine 04/06/2025 7:58 [...] TYPING SEROLOGIC ABO Routine 6:19 AM EDT ECG 12-LEAD Routine 04/02/2025 6:06 AM EDT POCT GLUCOSE Routine 04/01/2025 8:12 [...] EDT CT HEAD WITHOUT CONTRAST Routine 025 4:[address] ABDOMEN/PELVIS WITH CONTRAST [...] URINE CULTURE Routine 01/31/2025 1:11 AM EDT ENDOSCOPY, COLON 07/28/2024 1:[address] CHEST WITH CONTRAST Routine 4 1:02 PM EDT Other chest pain BD DXA AXIAL (SPINE) WITH HIP Routine 11:00 AM EDT Vitamin D insufficiency BI MAMMOGRAM SCREENING WITH TOMOSYNTHESIS WITH CAD (BILATERAL) Routine 10/09/2018 12:58 PM EDT Breast screening HM DIABETES EYE EXAM FOR RESULT ENTRY ONLY Routine 01/08/2018 from Last 3 Months or Most Recently Relevant to Health Maintenance Results * Outside Cardiology Report Only (04/19/2025) us Scanning Interface Provider CV CARDIAC SERVICES ORDERABLES Final Result * (ABNORMAL) POCT Glucose (04/15/2025 12:11 PM EST) Only the most recent of23 resultswithin the time period is included. Glucose 261(H) 70 - 99 mg/dL 04/15/2025 12:13 PM EST [facility] POCT SPECIAL FUNCTION LAB GROUPS 1 & 2 Blood (Blood) 04/15/2025 12: 11 PM EST 04/15/2025 12:13 PM EST Adria Anderson MD LAB POCT DOCKED DEVICE UNSOLICT ED RESULTS Final Result [facility] POCT SPECIAL FUNCTION LAB GROUPS 1 & [address] [place] [address] * (ABNORMAL) CBC (04/15/2025 6:40 AM EST) Only the most recent of39 resultswithin the time period is included. WBC 16.89(H) 4.00 - 11.00 K/uL 04/15/2025 8:03 AM [facility] RBC 2.82(L) 4.00 - 5.20 M/uL 04/15/2025 8:03 AM [facility] Hemoglobin 8.2(L) 12.0 - 16.0 g/dL 04/15/2025 8:03 AM [facility] Hematocrit 25.3(L) 36.0 - 46.0 % 04/15/2025 8:03 AM [facility] MCV 89.7 80.0 - 100.0 fL 04/15/2025 8:03 AM [facility] MCH 29.1 27.0 - 31.0 pg 04/15/2025 8:03 AM [facility] MCHC 32.4 32.0 - 36.0 g/dL 04/15/2025 8:03 AM [facility] PLT 342 150 - 450 K/uL 04/15/2025 8:03 AM [facility] MPV 9.3 8.4 - 12.0 fL 04/15/2025 8:03 AM [facility] RDW-CV 16.5(H) 11.5 - 14.5 % 04/15/2025 8:03 AM [facility] Absolute NRBC 0.00 <=0.00 K cells/uL 04/15/2025 8:03 AM EST [facility] NRBC 0.0 <=0.0 /100 WBCs 04/15/2025 8:03 AM EST [facility] Blood (Blood) 04/15/2025 6:4 0 AM EST 04/15/2025 7:46 AM EST us Virginia Gonsales MD LAB BLOOD BKR ORDERABLES Final R esult Performing Organization Address [facility] Co de Phone Number [address] [address] * Magnesium (04/15/2025 6:40 AM EST) Only the most recent of48 resultswithin the time period is included. Pathologist [facility] Magnesium 1.8 1.7 - 2.6 mg/dL 04/15/2025 8:26 AM [facility] Blood (Blood) 04/15/2025 6:4 0 AM EST 04/15/2025 7:39 AM EST us Alia Vail DNP LAB BLOOD BKR ORDERABLES Fi nal Result Performing Organization Address [facility] Co de Phone Number [address] [address] * (ABNORMAL) Basic Metabolic Panel (BMP) (04/15/2025 6:40 AM EST) Only the most recent of54 resultswithin the time period is included. Pathologist [facility] Sodium 137 136 - 145 mmol/L 04/15/2025 8:26 AM [facility] Potassium 4.2 3.4 - 5.1 mmol/L 04/15/2025 8:26 AM [facility] Chloride 104 98 - 107 mmol/L 04/15/2025 8:26 AM [facility] CO2 20 20 - 31 mmol/L 04/15/2025 8:26 AM [facility] Anion Gap 13 3 - 17 mmol/L 04/15/2025 8:26 AM [facility] BUN 33(H) 6 - 23 mg/dL 04/15/2025 8:26 AM [facility] Creatinine 1.46(H) 0.50 - 1.00 mg/dL 04/15/2025 8:26 AM EST [facility] eGFR 39(L) >59 mL/min/1. 73m2 04/15/2025 8:26 AM EST [facility] Comment:Estimated glomerular filtration rate calculated using the CKD-EPI refit equation. Glucose 83 70 - 99 mg/dL 04/15/2025 8:26 AM EST [facility] Calcium 9.5 8.5 - 10.5 mg/dL 04/15/2025 8:26 AM EST [facility] Blood (Blood) 04/15/2025 6:4 0 AM EST 04/15/2025 7:39 AM EST Alia Vail [facility] LAB BLOOD BKR ORDERABLES Fi nal Result [address] [address] * (ABNORMAL) RBC Antibody Identification (04/13/2025 3:23 AM EST) Only the most recent of2 resultswithin the time period is included. Anti-JKB POS <JKB(A) 04/13/2025 12:34 PM EST [facility] DEPARTMENT OF PATHOLOGY Blood (Blood) Catheter/Line / Unknown 04/13/2025 3:23 AM EST 04/13/2025 3:37 AM EST Alia Vail [facility] LAB BLOOD BANK TEST ORDERAB LES Final Result [facility] DEPARTMENT OF PATHOLOGY [address] [place] [phone] * (ABNORMAL) Type and Screen (ABO, Rh, Antibody Screen) (04/13/2025 3:23 AM EST) ABO/Rh A POS 04/13/2025 4:42 AM EST [facility] DEPARTMENT OF PATHOLOGY Antibody Screen POS(A) 4:42 AM EST [facility] DEPARTMENT OF PATHOLOGY Sample Expiration 04/16/2025 23:59 04/13/2025 4:42 AM EST [facility] DEPARTMENT OF PATHOLOGY Blood (Blood) Catheter/Line / Unknown 04/13/2025 3:23 AM EST 04/13/2025 3:37 AM EST Alia Vail [facility] LAB BLOOD BANK TEST ORDERAB LES Final Result [facility] DEPARTMENT OF PATHOLOGY [address] [place] [phone] * XR Chest Portable (04/12/2025 8:17 AM [...] clinician's provided indication for this examination in [facility]: Pneumonia; concern for worsening PNA; Infection COMPARISON: XR CHEST PORTABLE FINDINGS: Devices/Tubes/Lines: None. Lungs: RIGHT lung is well expanded and clear. Pleura: Normal. No pleural effusion or pneumothorax. Heart/Mediastinum: Normal heart and mediastinum. Bones/Soft Tissues: Normal. No significant skeletal abnormality. Procedure Note Bella Barreto MD - 04/12/2025 XR CHEST PORTABLE Referring clinician's provided indication for this examination in [facility]:Pneumonia; concern for worsening PNA; Infection COMPARISON: XR [...] pneumonia or other infection us Adore Kim CNP IMG XR CHEST Final Result * Blood Culture, Routine (04/12/2025 6:10 AM EST) Only the most recent of10 resultswithin the time period is included. Blood Culture/Test No growth at 5 days 04/17/2025 9:45 AM EST [facility] [facility] Blood (Blood) Venipuncture / Unknown 04/12/2025 6:10 AM EST 04/12/2025 9:33 AM EST Madison Enciso MD LAB MICROBIOLOGY CULTURE ORDERABLES Final Result Performing Organization Address City/[facility]/ZIP Co de Phone Number [address] [address] * MRSA Screen, Culture (04/12/2025 6:10 AM EST) Only the most recent of2 resultswithin the time period is included. Methicillin Resistant Staphylococcus Aureus (MRSA) Screen Culture/Test No MRSA isolated 04/13/2025 9:00 AM EST [facility] Swab (Anterior Nares) Non-Blood Collection / Unknown 04/12/2025 6:10 AM EST 04/12/2025 9:36 AM EST Madison Enciso MD LAB MICROBIOLOGY CULTURE ORDERABLES Final Result Performing Organization Address City/[facility] Co de Phone Number [address] [address] * (ABNORMAL) Hepatic Panel (LFTs) (04/12/2025 2:08 AM EST) Only the most recent of34 resultswithin the time period is included. AST 28 9 - 32 U/L 04/12/2025 6:26 AM [facility] ALT 17 7 - 33 U/L 04/12/2025 6:26 AM [facility] Alkaline Phosphatase 308(H) 40 - 130 U/L 04/12/2025 6:26 AM [facility] Bilirubin, Total 0.5 0.0 - 1.2 mg/dL 04/12/2025 6:26 AM [facility] Bilirubin, Direct 0.3 0.0 - 0.3 mg/dL 04/12/2025 6:26 AM EST [facility] Total Protein 6.5 6.4 - 8.3 g/dL 04/12/2025 6:26 AM [facility] Albumin 3.1(L) 3.5 - 5.2 g/dL 04/12/2025 6:26 AM EST [facility] Globulin 3.4 1.9 - 4.1 g/dL 04/12/2025 6:26 AM EST [facility] Blood (Blood) Catheter/Line / Unknown 04/12/2025 2:08 AM EST 04/12/2025 2:40 AM EST us Alia Vail DNP LAB BLOOD BKR ORDERABLES Fi nal Result Performing Organization Address City/[facility]/ZIP Co de Phone Number [address] [address] * (ABNORMAL) Troponin (04/12/2025 2:08 AM EST) Only the most recent of14 resultswithin the time period is included. Pathologist [facility] Troponin-T HS Gen5 41(H) 0 - 9 ng/L 04/12/2025 5:40 AM EST [facility] Blood (Blood) Catheter/Line / Unknown 04/12/2025 2:08 AM EST 04/12/2025 2:40 AM EST us Madison Enciso MD LAB BLOOD BKR ORDERABLES Final Result Performing Organization Address City/[facility] Co de Phone Number [address] [address] * (ABNORMAL) Comprehensive Metabolic Panel (CMP) (04/12/2025 12:40 AM EST) Only the most recent of4 resultswithin the time period is included. Sodium 131(L) 136 - 145 mmol/L 04/12/2025 7:01 AM [facility] Potassium 3.9 3.4 - 5.1 mmol/L 04/12/2025 7:01 AM EST [facility] Chloride 96(L) 98 - 107 mmol/L 04/12/2025 7:01 AM [facility] CO2 20 20 - 31 mmol/L 04/12/2025 7:01 AM [facility] Anion Gap 15 3 - 17 mmol/L 04/12/2025 7:01 AM EST [facility] BUN 37(H) 6 - 23 mg/dL 04/12/2025 7:01 AM [facility] Creatinine 1.44(H) 0.50 - 1.00 mg/dL 04/12/2025 7:01 AM [facility] eGFR 40(L) >59 mL/min/1. 73m2 04/12/2025 7:01 AM [facility] Comment:Estimated glomerular filtration rate calculated using the CKD-EPI refit equation. Glucose 263(H) 70 - 99 mg/dL 04/12/2025 7:01 AM [facility] Calcium 9.3 8.5 - 10.5 mg/dL 04/12/2025 7:01 AM [facility] AST 28 9 - 32 U/L 04/12/2025 7:01 AM [facility] ALT 19 7 - 33 U/L 04/12/2025 7:01 AM [facility] Alkaline Phosphatase 309(H) 40 - 130 U/L 04/12/2025 7:01 AM [facility] Bilirubin, Total 0.5 0.0 - 1.2 mg/dL 04/12/2025 7:01 AM [facility] Total Protein 6.6 6.4 - 8.3 g/dL 04/12/2025 7:01 AM [facility] Albumin 3.0(L) 3.5 - 5.2 g/dL 04/12/2025 7:01 AM [facility] Globulin 3.6 1.9 - 4.1 g/dL 04/12/2025 7:01 AM [facility] Blood (Blood) Venipuncture / Unknown 04/12/2025 12:40 AM EST 04/12/2025 1:32 AM EST us Madison Enciso MD LAB BLOOD BKR ORDERABLES Final Result [facility] [address] [place] [address] * (ABNORMAL) Urine Culture (04/11/2025 4:12 PM EST) Only the most recent of8 resultswithin the time period is included. Urine Culture/Tala t >100,000 CFU/mL Enterococcus faecium(A) RAPID SUSCEPTIBILITY TESTING (EULOGIO) 04/14/2025 3:29 PM EST [facility] Urine (Urine, Voided) Non-Blood Collection / Unknown 04/11/2025 4:12 PM EST 04/11/2025 8:05 PM EST Narrative [facility] - 04/14/2025 3:29 PM EST Plus growth [...] PTIBILITY TESTING (EULOGIO) 64: Intermediate Alia Vail [facility] LAB MICROBIOLOGY CULTURE OR DERABLES Final Result [facility] [address] [place] [address] * (ABNORMAL) Urinalysis with Reflex to Urine Culture (04/11/2025 12:55 PM EST) Only the most recent of10 resultswithin the time period is included. Color Maria A(A) Yellow 04/11/2025 2:07 PM [facility] Comment:Abnormal urine color may be associated with false-positive results. Interpret results with caution. Clarity Turbid(A) Clear 04/11/2025 2:07 PM [facility] Glucose Negative Negative 04/11/2025 2:07 PM [facility] Bilirubin Urine Negative Negative 2:07 PM [facility] Ketone Urine Negative Negative 04/11/2025 2:07 PM [facility] Specific [place] 1.012 1.001 - 1.035 04/11/2025 2:07 PM [facility] Blood 2+(A) Negative 04/11/2025 2:07 PM [facility] pH 5.5 5.0 - 8.0 04/11/2025 2:07 PM EST [facility] Protein 1+(A) Negative 04/11/2025 2:07 PM EST [facility] Nitrites Negative Negative 04/11/2025 2:07 PM EST [facility] Leukocyte Esterase 3+(A) Negative 04/11/2025 2:07 PM EST [facility] Urobilinogen Negative Negative 04/11/2025 2:07 PM EST [facility] Urine (Urine, Voided) Non-Blood Collection / Unknown 04/11/2025 12:55 PM EST 04/11/2025 1:14 PM EST Alia Vail [facility] LAB URINE ORDERABLES Final Result [address] [address] * (ABNORMAL) URINE SEDIMENT (04/11/2025 12:55 PM EST) Only the most recent of7 resultswithin the time period is included. WBC >100(A) 0 - 9 /hpf 04/11/2025 2:39 PM EST [facility] RBC 10-20(A) 0 - 2 /hpf 04/11/2025 2:39 PM EST [facility] Squamous Epithelial Cells 6-9(A) Not Present /hpf 04/11/2025 2:39 PM EST [facility] Mucus Present(A ) Not Present /hpf 04/11/2025 2:39 PM EST [facility] Bacteria 3+(A) Negative /hpf 04/11/2025 2:39 PM EST [facility] WBC Clumps Present(A ) Not Present /hpf 04/11/2025 2:39 PM EST [facility] Hyaline Cast >100(A) 0 - 2 /lpf 04/11/2025 2:39 PM EST [facility] Amorphous Urate/Phosphat e crystals Present(A ) Not Present /hpf 04/11/2025 2:39 PM EST [facility] Budding Yeast Present(A ) Not Present /hpf 04/11/2025 2:39 PM EST [facility] Urine (Urine, Voided) Non-Blood Collection / Unknown 04/11/2025 12:55 PM EST 04/11/2025 1:14 PM EST Alai Vail [facility] LAB URINE ORDERABLES Final Result [address] [address] * (ABNORMAL) DIFFERENTIAL, MANUAL (SYSMEX) (04/11/2025 5:45 AM EST) Neutrophils 70.1 % 04/11/2025 8:30 AM EST [facility] Bands 1.7 % 04/11/2025 8:30 AM EST [facility] Lymphocytes 10.3 % 04/11/2025 8:30 AM EST [facility] Monocytes 9.4 % 04/11/2025 8:30 AM EST [facility] Eosinophils 0.8 % 04/11/2025 8:30 AM EST [facility] Basophils 0.8 % 04/11/2025 8:30 AM EST [facility] Metamyelocytes 4.3 % 04/11/2025 8:30 AM EST [facility] Myelocytes 2.6 % 04/11/2025 8:30 AM [facility] Absolute Neutrophils 10.70(H) 1.92 - 7.60 K/uL 04/11/2025 8:30 AM EST [facility] Absolute Lymphocytes 1.53 0.72 - 4.10 K/uL 04/11/2025 8:30 AM [facility] Absolute Monocytes 1.40(H) 0.16 - 1.10 K/uL 04/11/2025 8:30 AM [facility] Absolute Eosinophils 0.12 0.00 - 0.50 K/uL 04/11/2025 8:30 AM EST [facility] Absolute Basophils 0.12 0.00 - 0.15 K/uL 04/11/2025 8:30 AM [facility] Absolute Metamyelocytes 0.64(H) <=0.00 K/uL 04/11/2025 8:30 AM [facility] Absolute Myelocytes 0.39(H) <=0.00 K/uL 04/11/2025 8:30 AM [facility] Diff Type Manual 04/11/2025 8:30 AM [facility] Blood (Blood) Catheter/Line / Unknown 04/11/2025 5:45 AM EST 04/11/2025 6:39 AM EST us Virginia Gonsales MD LAB BLOOD BKR ORDERABLES Final R esult [facility] [address] [place] [address] * (ABNORMAL) CBC and Differential (04/11/2025 5:45 AM EST) WBC 14.90(H) 4.00 - 11.00 K/uL 04/11/2025 8:30 AM [facility] RBC 2.89(L) 4.00 - 5.20 M/uL 04/11/2025 8:30 AM [facility] Hemoglobin 8.3(L) 12.0 - 16.0 g/dL 04/11/2025 8:30 AM [facility] Hematocrit 26.9(L) 36.0 - 46.0 % 04/11/2025 8:30 AM [facility] MCV 93.1 80.0 - 100.0 fL 04/11/2025 8:30 AM [facility] MCH 28.7 27.0 - 31.0 pg 04/11/2025 8:30 AM [facility] MCHC 30.9(L) 32.0 - 36.0 g/dL 04/11/2025 8:30 AM [facility] MPV 9.7 8.4 - 12.0 fL 04/11/2025 8:30 AM [facility] RDW-CV 17.1(H) 11.5 - 14.5 % 04/11/2025 8:30 AM [facility] PLT 394 150 - 450 K/uL 04/11/2025 8:30 AM [facility] NRBC 0.0 <=0.0 /100 WBCs 04/11/2025 8:30 AM [facility] Absolute NRBC 0.00 <=0.00 K cells/uL 04/11/2025 8:30 AM [facility] Absolute Neutrophils 8.87(H) 1.92 - 7.60 K/uL 04/11/2025 8:30 AM [facility] Comment:Automated cell count . Manual ANC may differ if performed. Diff Type Manual 04/11/2025 8:30 AM EST [facility] Blood (Blood) Catheter/Line / Unknown 04/11/2025 5:45 AM EST 04/11/2025 6:39 AM EST us Virginia Gonsales MD LAB BLOOD BKR ORDERABLES Final R esult Performing Organization Address City/[facility]/ZIP Co de Phone Number [address] [address] * Red Blood Cell (RBC) Morphology (04/11/2025 5:45 AM EST) RBC Morphology Reviewed 04/11/2025 8:30 AM EST [facility] Dohle Bodies present 04/11/2025 8:30 AM EST [facility] Giant/Large Platelets present 04/11/2025 8:30 AM EST [facility] Blood (Blood) Catheter/Line / Unknown 04/11/2025 5:45 AM EST 04/11/2025 6:39 AM EST us Virginia Gonsales MD LAB BLOOD BKR ORDERABLES Final R esult Performing Organization Address [facility] Co de Phone Number [address] [address] * (ABNORMAL) Erythrocyte Sedimentation Rate (ESR) (04/11/2025 5:45 AM EST) Only the most recent of2 resultswithin the time period is included. ESR 65(H) 0 - 30 mm/h 04/11/2025 7:32 AM EST [facility] Blood (Blood) Catheter/Line / Unknown 04/11/2025 5:45 AM EST 04/11/2025 6:39 AM EST us Alia Vail DNP LAB BLOOD BKR ORDERABLES Fi nal Result Performing Organization Address City/[facility]/ZIP Co de Phone Number [address] [address] * (ABNORMAL) C-Reactive Protein (CRP) (04/11/2025 5:45 AM EST) Only the most recent of2 resultswithin the time period is included. C Reactive Protein 147.4(H) <10.0 mg/L 04/11/2025 7:26 AM EST [facility] Comment:NOTE: This reference range is for the evaluation of inflammation. Order CRP, High Sensitivity for cardiac risk status evaluation. Blood (Blood) Catheter/Line / Unknown 04/11/2025 5:45 AM EST 04/11/2025 6:40 AM EST Alia Vail DNP LAB BLOOD BKR ORDERABLES Fi nal Result Performing Organization Address [facility] Co de Phone Number [address] [address] * CLOSTRIDIOIDES (CLOSTRIDIUM) DIFFICILE, PCR (04/10/2025 5:32 PM EST) Only the most recent of3 resultswithin the time period is included. C. difficile PCR Negative Negative 04/10/2025 9:10 PM EST [facility] Comment:Negative for C. diff icile Stool (Per Rectum) 04/10/2025 5:32 PM EST 04/10/2025 6:45 PM EST Alia Vail DNP LAB BODY FLUIDS AND STOOL O RDERABLES Final Result Performing Organization Address [facility] Co de Phone Number [address] [address] * Type and Screen (Conversion) (04/10/2025 8:45 AM EST) Hold Tube Completed? Yes 04/10/2025 8:55 AM EST [facility] Blood (Blood) 04/10/2025 8:4 5 AM EST 04/10/2025 8:45 AM EST Ishmael Sanchez MD, MPH LAB BLOOD BANK TEST ORDERAB LES Final Result Performing Organization Address [facility] Co de Phone Number [facility] [address] [place] [id number] * (ABNORMAL) POCT Glucose (04/09/2025 8:40 PM EDT) Only the most recent of133 resultswithin the time period is included. Glucose, POCT 241(H) 70 - 110 mg/dL [facility] 04/09/2025 8:40 PM EDT 04/09/2025 8:42 PM EDT us Virginia Gonsales MD POINT OF CARE TEST ORDERABLES Fi nal Result Performing Organization Address City/[facility] Co de Phone Number [address] [address] * ECG 12-LEAD (04/09/2025 11:11 AM EDT) Only the most recent of16 resultswithin the time period is included. Systolic Blood Pressure [facility] Diastolic Blood Pressure [facility] Ventricular Rate EKG/MIN 83 BPM [facility] Atrial Rate 83 BPM [facility] NC Interval 178 ms [facility] QRS Duration 90 ms [facility] QT Interval 372 ms [facility] QTC Interval 437 ms [facility] P Monon 270 degrees [facility] R Wave Monon 62 degrees [facility] T Wave Monon -34 degrees [facility] 04/09/2025 11:1 1 AM EDT 04/27/2025 9:27 PM EST Narrative [facility] - 04/27/2025 9:27 PM EST LOC: PH21 DX: CHEST PAIN REF: NALLELY RANDALL NORMAL SINUS RHYTHM NONSPECIFIC ST SEGMENT AND T WAVE ABNORMALITIES WHEN COMPARED WITH ECG OF 09-Apr-2025 11:10, NO IMPORTANT CHANGE us Nallely Randall PA-C ECG ORDERABLES Final Resu lt Performing Organization Address City/[facility] Co de Phone Number [email or web address] * Type and Screen (ABO,Rh,Antibody Screen) (04/09/2025 5:53 AM EDT) Only the most recent of8 resultswithin the time period is included. Expiration Date of Sample 04/12/2025 11:59 PM [facility] Antibody Screen Negative 04/09/2025 8:01 AM EDT [facility] Resulting Agency [facility] ABO A 04/09/2025 8:07 AM EDT [facility] Rh Positive 04/09/2025 8:07 AM EDT [facility] Blood 04/09/2025 5:53 AM EDT 04/09/2025 6:07 AM EDT Nallely RICHARD-C LAB BLOOD BANK TEST ORDERA BLES Final Result [address] [address] * Phosphorus (04/09/2025 5:40 AM EDT) Only the most recent of29 resultswithin the time period is included. PHOSPHORUS 3.7 2.6 - 4.5 mg/dL [facility] Blood 04/09/2025 5:40 AM EDT 04/09/2025 6:45 AM EDT Lynn QIUC LAB BLOOD BKR ORDERAB LES Final Result Performing Organization Address City/[facility]/ZIP Co de Phone Number [address] [address] * (ABNORMAL) PT-INR (04/07/2025 6:25 AM EDT) Only the most recent of31 resultswithin the time period is included. PT 17.8(H) 10.0 - 13.0 sec [facility] INR 1.6(H) 0.9 - 1.1 [facility] Blood 04/07/2025 6:25 AM EDT 04/07/2025 7:25 AM EDT Lynn RICHARD-C LAB BLOOD BKR ORDERAB LES Final Result [address] [address] * XR Chest Portable (04/06/2025 10:43 AM [...] clinician's provided indication for this examination in [facility]: Cough; Cough, persistent COMPARISON: XR CHEST PORTABLE FINDINGS: Devices/Tubes/Lines: None. Lungs: New patchy left apical opacity. Subsegmental left basilar atelectasis. Pleura: No pleural effusion or pneumothorax. Heart/Mediastinum: Borderline-enlarged cardiac silhouette. Bones/Soft Tissues: No significant skeletal abnormality. Procedure Note Jose Luis Martínez MD - 04/06/2025 XR CHEST PORTABLE Referring clinician's provided indication for this examination in [facility]:Cough; Cough, persistent COMPARISON: XR CHEST PORTABLE FINDINGS: Devices/Tubes/Lines: None. Lungs: New patchy left apical opacity. Subsegmental left basilaratelectasis. Pleura: No pleural effusion or pneumothorax. Heart/Mediastinum: Borderline-enlarged cardiac silhouette. Bones/Soft Tissues: No significant skeletal abnormality. IMPRESSION: New patchy left apical opacity suspicious for pneumonia. Left basal subsegmental atelectasis. ATTESTATION: IDr. Jose Luis as teaching physician, have reviewedthe images for this case and if necessary edited the report originallycreated by Aureliano Pacheco. us Nallely Randall PA-C IMG XR CHEST Final Resu lt * Prepare RBC, 1 Units (04/06/2025 7:58 AM EDT) Only the most recent of3 resultswithin the time period is included. Product Code [id number] 04/06/2025 7:58 AM EDT [facility] Unit Number [id number] 04/06/20 7:58 AM EDT [facility] Crossmatch Interpretation Compatible 04/04/2025 3:24 PM EDT [facility] Product Status No Longer Ready 04/06 7:58 AM EDT [facility] ABO/Rh of Unit ONEG 04/06/2025 7:58 AM EDT [facility] Expiration Date/Time [id number] 04/06/2025 7:58 AM EDT [facility] Unit Barcode 04/06/2025 7:58 AM EDT [facility] 04/02/2025 6:3 1 AM EDT us Anisa Tsang [facility] BLOOD BANK PRODUCT ORDERABLES F inal Result Performing Organization Address City/[facility] [place] [address] * (ABNORMAL) POCT Activated Clotting Time (04/05/2025 1:08 PM EDT) ACTIVATED CLOT TIME 178(H) 90 - 130 sec [facility] 04/05/2025 1:08 PM EDT 04/05/2025 1:14 PM EDT us Janusz Rosas MD, MPH LAB POCT ENTER/EDIT ORDERAB LES Final Result Performing Organization Address [facility] [place] [address] * CORONARY ARTERIOGRAM WITH POSSIBLE INTERVENTION, RIGHT HEART CATHETERIZATION (04/05/2025 1:07 PM EDT) Anatomical Region Laterality Modality X-Ray Angiograph y 04/05/2025 1:07 PM EDT Narrative 04/13/2025 7:50 AM EST Cardiac Catheterization Report [facility] CARDIAC CATHETERIZATION LABORATORY FINAL REPORT PATIENT NAME:EVERTON [...] PA 40 / 22 / 30 PCW 20 / 30 / 20 AO 97 / 62 / 76 CORONARY [...] focal 50 % stenosis . EQUIPMENT: Terumo, [place] Precision access system, Introducer Sheath, 7F, 10 Pena Lifescience, Dearborn-Yves Catheter, Dearborn-Yves Catheter, 7F, 0 Terumo, 5F Slender, Transradial Access Kit, 5F, 10 Cordis, INFINITI JR 4, Diagnostic Catheter, 4F, 100 Cordis, INFINITI JL 4.0, Diagnostic Catheter, 4F, 100 Burden, Versacore MOD J, Peripheral Guidewire, 175 Atavist Medical, JL 3.5, Diagnostic Catheter, 5F, 100 Terumo, TR Band -- Regular, Hemostasis Device, 0 Terumo, 5F Slender, Transradial Access Kit, 5F, 10 Terumo, [place] Precision access system, Introducer Sheath, 7F, 10 [...] stable. EMERGENCY CONTACTS: Baron Shabazz MD Pager: [phone] This report has been electronically signed by [...] Shabazz MD - 04/13/2025 Cardiac Catheterization Report [facility] CARDIAC CATHETERIZATION LABORATORY FINAL REPORT PATIENT NAME:EVERTON [...] PA 40 / 22 / 30 PCW 20 / 30 / 20 AO 97 / 62 / 76 CORONARY [...] focal 50 % stenosis . EQUIPMENT: Terumo, [place] Precision access system, Introducer Sheath, 7F, 10 QuantaporeciSpotFodo, Dearborn-Yves Catheter, Dearborn-Yves Catheter, 7F, 0 Terumo, 5F Slender, Transradial Access Kit, 5F, 10 Cordis, INFINITI JR 4, Diagnostic Catheter, 4F, 100 Cordis, INFINITI JL 4.0, Diagnostic Catheter, 4F, 100 Burden, Versacore MOD J, Peripheral Guidewire, 175 Atavist Medical, JL 3.5, Diagnostic Catheter, 5F, 100 Terumo, TR Band -- Regular, Hemostasis Device, 0 Terumo, 5F Slender, Transradial Access Kit, 5F, 10 Terumo, [place] Precision access system, Introducer Sheath, 7F, 10 [...] stable. EMERGENCY CONTACTS: Baron Shabazz MD Pager: [phone] This report has been electronically signed by [...] Critical values: <40 or >500 mg/dl Kathy Martin CNP CV CARDIAC CATH ORDERABLES F inal Result * (ABNORMAL) PTT (04/05/2025 11:25 AM EDT) Only the most recent of17 resultswithin the time period is included. APTT 98.0(H) 24.0 - 37.5 sec [facility] Comment:Check MAR for the ta rget range that is ordered for your patient. Blood 04/05/2025 11:2 5 AM EDT 04/05/2025 11:32 AM EDT us Alyson Goode MD LAB BLOOD BKR ORDERABLES Final R esult [facility] [address] [place] [address] * CT HEAD WITHOUT CONTRAST (04/04/2025 9:26 [...] edited the report originally createdby Jeremías Strickland. Anisa Tsang CNP IMG CT HEAD/NECK Final Result * Lactate (04/04/2025 4:02 AM EDT) Only the most recent of28 resultswithin the time period is included. LACTIC ACID (MMOL/L) 1.6 0.5 - 2.0 mmol/L [facility] Blood 04/04/2025 4:02 AM EDT 04/04/2025 4:14 AM EDT Alyson Goode MD LAB BLOOD BKR ORDERABLES Final R esult [address] [address] * Transfuse RBC (04/03/2025 11:31 PM EDT) Only the most recent of2 resultswithin the time period is included. Anisa Tsang CNP NURSING TREATMENT ORDERABLES - BLOOD ADMIN Final Result Performing Organization Address City/[facility]/ZIP Co de Phone Number [facility] * (ABNORMAL) Urine Sediment (04/03/2025 11:15 PM EDT) Only the most recent of4 resultswithin the time period is included. RBC 3-5(A) 0 - 2 /hpf [facility] WBC >100(A) <10 /hpf [facility] SQUAMOUS CELLS Present(A ) None /hpf [facility] BLADDER CELLS 2+(A) None /[facility] BACTERIA 1+(A) None /hpf [facility] HYALINE CAST 5-10(A) 0 - 2 /lpf [facility] YEAST Present(A ) None /hpf [facility] WBC CLUMPS Present(A ) None /hpf [facility] MUCUS Present(A ) None [facility] AMORPHOUS CRYSTALS Present(A ) None /hpf [facility] 04/03/2025 11:1 5 PM EDT 04/03/2025 11:31 PM EDT Anisa Tsang CNP URINE ORDERABLES Final Result Performing Organization Address [facility] Co de Phone Number [facility] [address] [place] [address] * CT HEAD WITHOUT CONTRAST (04/03/2025 8:04 [...] edited the report originallycreated by Dave Encarnacion. us Anisa Tsang [employer] IMG CT HEAD/NECK Final Result * (ABNORMAL) Venous blood gas (04/03/2025 7:40 PM EDT) Only the most recent of8 resultswithin the time period is included. FIO2 UNSPEC. FIO2/L min [facility] PH 7.46(H) 7.30 - 7.40 [facility] PCO2 31(L) 38 - 50 mm[Hg] [facility] PO2 58(H) 35 - 50 mm[Hg] [facility] Base Excess, unspecified NEG 0.0 - 3.0 mmol/L [facility] Comment:1.8NEG HCO3, unspecified 22(L) 24 - 30 mmol/L [facility] Blood 04/03/2025 7:40 PM EDT 04/03/2025 7:45 PM EDT us Anisa Tsang CNP LAB BLOOD BKR ORDERABLES Final Result [address] [id number] * XR Chest Portable (04/03/2025 7:24 PM [...] clinician's provided indication for this examination in Epic:Infection COMPARISON: XR CHEST PORTABLE 2024- FINDINGS: Devices/Tubes/Lines: None. Lungs: There are faint linear opacities in the right lower lung. There isno pulmonary edema. Pleura: No pleural effusion or pneumothorax. Heart/Mediastinum: Unchanged in appearance. Bones/Soft Tissues: Unchanged IMPRESSION: Faint linear opacities in the right lower lung may represent atelectasisor scarring. Superimposed aspiration/pneumonia cannot be excluded us Anisa Tsang CNP IMG XR CHEST Final Result * (ABNORMAL) Anti-Xa (Lovenox) (04/03/2025 12:52 PM EDT) Only the most recent of2 resultswithin the time period is included. Anti-Xa (Lovenox) 1.29(H) <1.00 IU/mL [facility] Comment: The therapeutic range for treatment of [...] 2 PM EDT 04/03/2025 1:06 PM EDT us Anisa Tsang CNP LAB BLOOD BKR ORDERABLES Final Result [place] [address] [address] * Lab Add On: differential (03/31/2025 7:50 AM EDT) Only the most recent of12 resultswithin the time period is included. TEST REQUESTED DIFFERENTIAL [facility] Comments (Chemistry) ADD ON COMPLETE. [facility] Comment:SEE ACCN:[id number] 03/31/2025 7:50 AM EDT 03/31/2025 8:05 AM EDT us Lynn Jerrymoreno Islas [employer] LAB BLOOD ORDERABLES Final Result [address] [address] * (ABNORMAL) Differential (03/31/2025 6:00 AM EDT) Only the most recent of3 resultswithin the time period is included. DIFF METHOD Auto [facility] NEUTS 76.7(H) 48.0 - 76.0 % [facility] LYMPHS 14.1(L) 18.0 - 41.0 % [facility] MONOS 6.0 4.0 - 11.0 % [facility] EOS 2.1 0.0 - 5.0 % [facility] BASOS 0.4 0.0 - 1.5 % [facility] % IMMATURE GRANS 0.7 0.0 - 0.9 % [facility] ABSOLUTE NEUTS 8.56(H) 1.92 - 7.60 K/uL [facility] ABSOLUTE LYMPHS 1.57 0.72 - 4.10 K/uL [facility] ABSOLUTE MONOS 0.67 0.16 - 1.10 K/uL [facility] ABSOLUTE EOS 0.23 0.00 - 0.50 K/uL [facility] ABSOLUTE BASOS 0.04 0.00 - 0.15 K/uL [facility] ABS IMMATURE GRANS 0.08 0.00 - 0.09 K/uL [facility] 03/31/2025 6:00 AM EDT 03/31/2025 6:23 AM EDT us Danielle Luevano [employer] LAB BLOOD ORDERABLES Final Res ult [facility] [address] [place] [address] * CT HEAD WITHOUT CONTRAST (03/31/2025 2:40 [...] for this examination in Epic: *Subdural hematoma; hx of bilateral subdural now [...] * No evidence of new hemorrhage. ATTESTATION: I, Sean Irwin as teaching physician, have reviewed theimages for this case and if necessary edited the report originally createdby Aaron Prince. us Segun Elizondo MD IMG CT HEAD/NECK Fi nal Result * XR Chest Portable (03/30/2025 7:08 PM EDT) Anatomical Region Laterality Modality Chest Computed Radiogr aphy 03/31/2025 8:25 AM EDT Impressions 03/31/2025 8:25 AM EDT Normal heart size and clear lungs Narrative 03/31/2025 8:25 AM EDT XR CHEST PORTABLE Referring clinician's provided indication for this examination in [facility]: Pain COMPARISON: XR CHEST PORTABLE FINDINGS: Devices/Tubes/Lines: None. Lungs: Normal. The lungs are clear. No focal consolidation or pulmonary edema. Pleura: Normal. No pleural effusion or pneumothorax. Heart/Mediastinum: Normal heart and mediastinum. Bones/Soft Tissues: Normal. No significant skeletal abnormality. Procedure Note Bella Barreto MD - 03/31/2025 XR CHEST PORTABLE Referring clinician's provided indication for this examination in [facility]:Pain COMPARISON: XR CHEST PORTABLE FINDINGS: Devices/Tubes/Lines: None. Lungs: Normal. The lungs are clear. No focal consolidation or pulmonaryedema. Pleura: Normal. No pleural effusion or pneumothorax. Heart/Mediastinum: Normal heart and mediastinum. Bones/Soft Tissues: Normal. No significant skeletal abnormality. IMPRESSION: Normal heart size and clear lungs us Eloisa Pineda CNP IMG XR CHEST Fi nal Result * (ABNORMAL) Lipid panel (03/30/2025 6:05 AM EDT) Only the most recent of2 resultswithin the time period is included. HDL 20(L) 35 - 100 mg/dL [facility] CHOLESTEROL 67 <200 mg/dL [facility] TRIGLYCERIDES 66 40 - 150 mg/dL [facility] LDL 34(L) 50 - 129 mg/dL [facility] CARDIAC RISK RATIO 3.4 0.0 - 5.0 [facility] NON-HDL CHOLESTEROL 47 mg/dL [facility] Comment:Guidelines suggest a non-HDL cholesterol goal 30 mg/dL higher than the patient-specific LDL goal. 03/30/2025 6:05 AM EDT 03/30/2025 7:04 AM EDT Lynn Gaines PA-C LAB BLOOD BKR ORDERAB LES Final Result [address] [address] * (ABNORMAL) CBC and differential (03/29/2025 6:00 AM EDT) Only the most recent of11 resultswithin the time period is included. WBC 10.50 4.00 - 11.00 K/uL [facility] RBC 2.72(L) 4.00 - 5.20 M/uL [facility] HGB 8.2(L) 12.0 - 16.0 g/dL [facility] HCT 26.7(L) 36.0 - 46.0 % [facility] PLT 174 150 - 450 K/uL [facility] MCV 98.2 80.0 - 100.0 fL [facility] MCH 30.1 27.0 - 31.0 pg [facility] MCHC 30.7(L) 32.0 - 36.0 g/dL [facility] RDW 17.6(H) 11.5 - 14.5 % [facility] MPV 11.3 8.4 - 12.0 fL [facility] NRBC 0.00 0.00 /100 WBCs [facility] ABSOLUTE NRBC 0.00 0.00 K/uL [facility] DIFF METHOD Manual [facility] TOTAL CELLS COUNTED 116 [facility] NEUTS 81.0(H) 48.0 - 76.0 % [facility] LYMPHS 9.5(L) 18.0 - 41.0 % [facility] MONOS 5.2 4.0 - 11.0 % [facility] EOS 2.6 0.0 - 5.0 % [facility] BASOS 1.7(H) 0.0 - 1.5 % [facility] ABSOLUTE NEUTS 8.51(H) 1.92 - 7.60 K/uL [facility] ABSOLUTE LYMPHS 1.00 0.72 - 4.10 K/uL [facility] ABSOLUTE MONOS 0.55 0.16 - 1.10 K/uL [facility] ABSOLUTE EOS 0.27 0.00 - 0.50 K/uL [facility] ABSOLUTE BASOS 0.18(H) 0.00 - 0.15 K/uL [facility] VIKASH CELLS Present(A) None [facility] POLYCHROME 1+(A) NORMAL [facility] SCHISTOCYTES 1+(A) None [facility] PLTS, giant Present [facility] Blood 03/29/2025 6:00 AM EDT 03/29/2025 6:40 AM EDT us Griselda Jarvis PA-C, MPH LAB BLOOD BKR ORDERABLES F inal Result [address] [address] * (ABNORMAL) NT-proBNP (03/29/2025 6:00 AM EDT) Only the most recent of4 resultswithin the time period is included. NT-PROBNP 4,331(H) 0 - 900 pg/mL [facility] Comment: Reference Range: Age <50 years: 0-450 [...] 03/29/2025 1:55 PM EDT us Danielle Luevano [employer] LAB BLOOD BKR ORDERABLES Final Result [facility] [address] [place] [address] * TTE COMPREHENSIVE (03/28/2025 9:16 AM EDT) [...] PLASMA AMMONIA 23 12 - 48 umol/L [facility] Blood 03/27/2025 1:57 AM EDT 03/27/2025 2:02 AM EDT Karla Andrade PA-C LAB BLOOD BKR ORDERABLES Fi nal Result [address] [address] * CT HEAD WITHOUT CONTRAST (03/26/2025 6:27 [...] clinician's provided indication for this examination in [facility]: * Subdural hematoma; New b/l subdural collections, [...] clinician's provided indication for this examination in [facility]: *Subdural hematoma; New b/l subdural collections, monitor [...] indication for this examination in Epic: * Delirium; * Mental status change, unknown [...] clinician's provided indication for this examination in [facility]: *Delirium; * Mental status change, unknown cause; [...] Cystatin C 2.35(H) 0.61 - 0.95 mg/L [facility] eGFR (Cystatin C) 23(L) >59 mL/min/1. 73m2 [facility] Comment: Cystatin C-based eGFR may differ substantially from creatinine-based eGFR in patients with abnormal muscle mass or acutely changing renal function. Please interpret together with relevant clinical features. 03/25/2025 7:22 AM EDT 03/25/2025 7:29 AM EDT us Lynn Gaines PA-C LAB BLOOD BKR ORDERAB LES Final Result [facility] [address] [place] [address] * (ABNORMAL) Vancomycin, trough (03/24/2025 8:55 AM EDT) VANCOMYCIN,TRO UGH 21.0(H) 10.0 - 20.0 ug/mL [facility] Blood 03/24/2025 8:55 AM EDT 03/24/2025 9:34 AM EDT Griselda Jarvis PA-C, MPH LAB BLOOD BKR ORDERABLES F inal Result [address] [address] * Vancomycin, unspecified (03/24/2025 7:45 AM EDT) VANCOMYCIN,UNS PECIF. 21.2 ug/mL [facility] Comment: PEAK: 15.0-35.0 TROUGH: 10.0-20.0 Blood 03/24/2025 7:45 AM EDT 03/24/2025 9:35 AM EDT us Griselda Jarvis PA-C, MPH LAB BLOOD BKR ORDERABLES F inal Result Performing Organization Address [facility] Co de Phone Number [address] [address] * Immunofixation only (03/24/2025 5:58 AM EDT) Pathologist [facility] IMMUNOFIXATION There is a 0.06 g/dl IgG lambda M component and a 0.13 g/dl IgG kappa M component, both in the gamma region. [facility] Comment: M-components at concentrations of 0.05 to [...] per dl. Performing Physician, Tyson Santos M.D., [id number] 03/24/2025 5:58 AM EDT 03/24/2025 6:50 AM EDT Griselda Jarvis PA-C, MPH LAB BLOOD BKR ORDERABLES F inal Result Performing Organization Address [facility] de Phone Number [address] [address] * (ABNORMAL) SPEP PANEL (03/24/2025 5:58 AM EDT) Total Protein 5.7(L) 6.0 - 8.3 g/dL [facility] IMMUNOGLOBULIN G 924 614 - 1,295 mg/dL [facility] IgA 190 69 - 309 mg/dL [facility] IMMUNOGLOBULIN M 90 53 - 334 mg/dL [facility] SPEP Abnormal pattern [facility] Comment: Banding present. Please see Immunofixation for final results. Performing Physician, Tyson Santos M.D., [id number] Serum protein electrophoresis results should be evaluated in the context of separately reported serum free light chain levels and ratio when these additional results are available. Blood 03/24/2025 5:58 AM EDT 03/24/2025 6:50 AM EDT Griselda Jarvis PA-C, MPH LAB BLOOD BKR ORDERABLES F inal Result Performing Organization Address [facility] de Phone Number [address] [address] * (ABNORMAL) Free light chains, serum (03/24/2025 5:58 AM EDT) FREE KAPPA LT CHAIN 124.4(H) 3.3 - 19.4 mg/L [facility] FREE LAMBDA LT CHAIN 48.1(H) 5.7 - 26.3 mg/L [facility] FREE KAPPA LAMBDA RAT 2.59(H) 0.30 - 1.70 [facility] Blood 03/24/2025 5:58 AM EDT 03/24/2025 6:50 AM EDT Griselda Jarvis PA-C, MPH LAB BLOOD BKR ORDERABLES F inal Result Performing Organization Address City/[facility]/ZIP Co de Phone Number [address] [address] * Fibrinogen (03/23/2025 10:05 PM EDT) Only the most recent of9 resultswithin the time period is included. FIBRINOGEN 365 200 - 400 mg/dL [facility] Blood 03/23/2025 10:0 5 PM EDT 03/23/2025 10:11 PM EDT us Griselda Lamb Matheus TRIPLETT, MPH LAB BLOOD BKR ORDERABLES F inal Result Performing Organization Address [facility] Co de Phone Number [address] [address] * CT ABDOMEN/PELVIS WITH CONTRAST (03/23/2025 5:30 [...] included. POTASSIUM 4.8 3.4 - 5.0 mmol/L [facility] Blood 03/22/2025 9:28 PM EDT 03/22/2025 9:34 PM EDT Alie Bojorquez MD LAB BLOOD BKR ORDERABLES Fin al Result Performing Organization Address City/[facility]/ZIP Co de Phone Number [address] [address] * (ABNORMAL) Lipase (03/22/2025 5:58 AM EDT) Only the most recent of3 resultswithin the time period is included. LIPASE 203(H) 13 - 60 U/L [facility] Blood 03/22/2025 5:58 AM EDT 03/22/2025 6:23 AM EDT us Lynn Gaines PA-C LAB BLOOD BKR ORDERAB LES Final Result [address] [address] * XR Chest Portable (03/21/2025 4:32 PM [...] clinician's provided indication for this examination in [facility]:Infection COMPARISON: XR CHEST PORTABLE FINDINGS: Devices/Tubes/Lines: None. [...] CONTRAST (03/21/2025 4:10 PM EDT) MGB IMG COMB WINDER COMMENT possible bowel ischemia [facility] Anatomical Region Laterality Modality Abdomen, Pelvis Computed [...] initiated on 03/21/2025 5:10 PM, Message ID [id number]. ATTESTATION: I, Dr. Ashok Doss as teaching physician, have reviewed the images for this case and if necessary edited the report originally created by Harrison Briggs. Narrative 03/21/2025 5:[address] ABDOMEN/PELVIS WITH CONTRAST Referring clinician's provided indication for this examination in [facility]: * Abdominal abscess/infection suspected; * Abdominal pain, [...] indication for this examination in Epic: *Abdominal abscess/infection suspected; * Abdominal pain, acute,nonlocalized; [...] was initiated on 03/21/2025 5:10 PM,Message ID [id number]. ATTESTATION: IDr. Ashok as teaching physician, have reviewedthe images for this case and if necessary edited the report originallycreated by Harrison Briggs. us Lynn Gaines PA-C IMG CT ABD/PELVIS Fin al Result * CT HEAD WITHOUT CONTRAST (03/21/2025 4:10 PM EDT) Anatomical Region Laterality Modality Head Computed Tomogra phy 03/21/2025 4:12 PM EDT Impressions 03/21/2025 4:45 PM EDT No acute intracranial findings. ATTESTATION: IDr. Paty as teaching physician, have reviewed the images for this case and if necessary edited the report originally created by Obinna Sarabia. Narrative 03/21/2025 4:[address] HEAD WITHOUT CONTRAST Referring clinician's provided indication for this examination in [facility]: * Delirium TECHNIQUE: Multidetector-row CT of the [...] clinician's provided indication for this examination in [facility]: *Delirium TECHNIQUE: Multidetector-row CT of the head [...] Stool PCR Panel (03/21/2025 12:04 PM EDT) Shigella spp./Enteroinvas coral E.coli PCR Not Detected Not Detected [facility] Shiga toxin (stx1/stx2) PCR Not Detected Not Detected [facility] Campylobacter spp. PCR Not Detected Not Detected [facility] Salmonella spp. PCR Not Detected Not Detected [facility] Comment:Low volume of stool received. Potential for false negative results. Please recollect sample if clinically indicated. Stool (Stool) 03/21/2025 12: 04 PM EDT 03/21/2025 6:43 PM EDT Lynn Gaines PA-C LAB BODY FLUIDS AND S TOOL ORDERABLES Final Result [facility] [address] [place] [address] * HSV TYPE 1,2 QUANTITATIVE PCR, BLOOD (03/21/2025 5:45 AM EDT) HSV 1 DNA Not Detected Not Detected copies/mL [facility] HSV 2 PCR Not Detected Not Detected copies/mL [facility] Comment: (NOTE) Assay Range for [...] developed and its performance characteristics determined by [employer]. It has not been cleared or approved by the U.S. Food and Drug Administration. Results should be used in conjunction with clinical findings, and should not form the sole basis for a diagnosis or treatment decision. Testing Performed At: [facility] [address] [place] [address], [address] [place] [address] Drag Car Racer: Armando Roberts, PhD ANGELLA (ABB) CLIA # [id number] [facility] Interpretation: A = Abnormal, H = High, L = Low Blood 03/21/2025 5:45 AM EDT 03/21/2025 6:43 AM EDT Lynn Gaines PA-C LAB BLOOD BKR ORDERAB LES Final Result Performing Organization Address [facility] de Phone Number [facility] [address] [place] [address] * HEPATITIS E ANTIBODY, IGM (03/21/2025 5:45 AM EDT) Hepatitis E Virus IgM Antibody Screen Negative Negative [facility] Comment: (NOTE) If clinical suspicion persists, submit new specimen for retesting in 1 to 2 weeks. ADDITIONAL INFORMATION This test was developed and its performance characteristics determined by [facility] in a manner consistent with CLIA requirements. This test has not been cleared or approved by the U.S. Food and Drug Administration. Blood 03/21/2025 5:45 AM EDT 03/21/2025 6:43 AM EDT Lynn Gaines PA-C LAB BLOOD ORDERABLES Final Result Performing Organization Address [facility] Co de Phone Number [facility] [address] [place] [address] * VARICELLA-ZOSTER (VZV) ANTIBODY, IGM (03/21/2025 5:45 AM EDT) VARICELLA ZOSTER AB, IGM, S Negative Negative [facility] Blood (Blood) 03/21/2025 5:4 5 AM EDT 03/21/2025 6:44 AM EDT Lynn Gaines PA-C NON CULTURE MICROBIOL OGY Final Result Performing Organization Address [facility] Co de Phone Number [facility] [address] [place] [address] * (ABNORMAL) Mg/Phos pkg (03/20/2025 12:59 PM EDT) MAGNESIUM 1.6(L) 1.7 - 2.4 mg/dL [facility] PHOSPHORUS 2.5(L) 2.6 - 4.5 mg/dL [facility] 03/20/2025 12:5 9 PM EDT 03/20/2025 1:08 PM EDT Boy Patrick MD LAB BLOOD ORDERABLES Final Resu lt Performing Organization Address [facility] Co de Phone Number [address] [address] * (ABNORMAL) Complement C3 (03/20/2025 12:31 AM EDT) Only the most recent of2 resultswithin the time period is included. C3 65(L) 81 - 157 mg/dl [facility] Comment:Result checked Blood 03/20/2025 12:3 1 AM EDT 03/20/2025 12:54 AM EDT Summer Nj CNP LAB BLOOD BKR ORDERABLES Final Result Performing Organization Address [facility] Co de Phone Number [address] [address] * (ABNORMAL) Complement C4 (03/20/2025 12:31 AM EDT) Only the most recent of2 resultswithin the time period is included. C4 8(L) 12 - 39 mg/dL [facility] Comment:Result checked Blood 03/20/2025 12:3 1 AM EDT 03/20/2025 12:54 AM EDT us Summer Nj [employer] LAB BLOOD BKR ORDERABLES Final Result [address] [address] * XR Chest Portable (03/19/2025 4:40 AM EDT) Anatomical Region Laterality Modality Chest Computed Radiogr aphy 03/19/2025 11:4 8 AM EDT Impressions 03/19/2025 11:49 AM EDT No evidence of pneumonia or pulmonary edema. Narrative 03/19/2025 11:49 AM EDT XR CHEST PORTABLE Referring clinician's provided indication for this examination in [facility]: Dyspnea (Shortness of Breath) COMPARISON: XR CHEST [...] clinician's provided indication for this examination in [facility]:Dyspnea (Shortness of Breath) COMPARISON: XR CHEST PORTABLE ; CT CHEST WITH [id number]; CT ABDOMEN/PELVIS WITHOUT CONTRAST FINDINGS: Devices/Tubes/Lines: None. Lungs: No focal consolidation or pulmonary edema. Pleura: Decreased trace right pleural effusion. No pneumothorax. Heart/Mediastinum: Normal cardiomediastinal silhouette. Bones/Soft Tissues: Bony thorax and extrathoracic soft tissues areunchanged. IMPRESSION: No evidence of pneumonia or pulmonary edema. us Darion-Chet Escalera Turno PA-C IMG XR CHEST Final Result [...] clinician's provided indication for this examination in [facility]: Abdominal distension; Pain COMPARISON: CT ABDOMEN/PELVIS WITHOUT CONTRAST Procedure Note Annie Kern MD, PhD - 03/19/2025 XR ABDOMEN 2 VIEWS Referring clinician's provided indication for this examination in [facility]:Abdominal distension; Pain COMPARISON: CT ABDOMEN/PELVIS WITHOUT CONTRAST IMPRESSION: FINDINGS/IMPRESSION: Tubes/Lines: Midline pelvic catheter. Cholecystectomy clips. Bowel: Normal. No bowel dilatation. Free Air: Normal. No pneumoperitoneum. us Darion-Chet Escalera Turno PA-C IMG XR ABDOMEN Final Result * TTE COMPREHENSIVE (03/18/2025 3:33 PM EDT) [facility] Body Surface Area 1.78 m2 Left Ventricular [...] lower but likely underestimated. us Carmelina Walden [employer] CV ECHO ORDERABLES Final Resu lt * Lyme Screen w/Reflex to Enzyme Immunoassays (03/18/2025 12:39 PM EDT) LYME IGG/IGM AB Non-React coral [facility] 03/18/2025 12:3 9 PM EDT 03/18/2025 1:10 PM EDT us Daniella Kearney [employer] LAB BLOOD BKR ORDERABLES Final Result [address] [address] * US ABDOMEN LIMITED WITH DOPPLER (03/18/2025 [...] limits post cholecystectomy. Procedure Note Julita White, [facility] LATESHA - 03/18/2025 US ABDOMEN LIMITED [...] report originallycreated by Lesly Hernandez. Summer Nj CNP IMG US ABDOMEN Final Result * Anti XA Screen (03/18/2025 10:08 AM EDT) Pathologist [facility] Anti-Xa Screen Detected [facility] Comment:Anti-Xa assay was pe rformed to determine presence/absence of heparin or other Xa inhibitors for interpretation. Result should not be used to monitor therapy. 03/18/2025 10:0 8 AM EDT 03/18/2025 11:17 AM EDT Daniella Kearney [employer] LAB BLOOD BKR ORDERABLES Edited Result - Final [facility] [address] [place] [address] * (ABNORMAL) PTT after Hepzyme (03/18/2025 10:08 AM EDT) Pathologist [facility] PTT AFTER HEPZYME 37.9(H) 24.0 - 37.5 sec [facility] 03/18/2025 10:0 8 AM EDT 03/18/2025 11:17 AM EDT Daniella Kearney [facility] LAB BLOOD ORDERABLES Angle l Result Performing Organization Address [facility] Co de Phone Number [address] [address] * PTT (03/18/2025 10:08 AM EDT) APTT 34.6 24.0 - 37.5 sec [facility] 03/18/2025 10:0 8 AM EDT 03/18/2025 11:17 AM EDT Daniella Kearney [facility] LAB BLOOD ORDERABLES Angle l Result Performing Organization Address [facility] de Phone Number [address] [address] * (ABNORMAL) INR (03/18/2025 10:08 AM EDT) PROTHROMBIN TIME 80.0(H) 10.0 - 13.0 sec [facility] INR 7.3(H) 0.9 - 1.1 [facility] 03/18/2025 10:0 8 AM EDT 03/18/2025 11:17 AM EDT Daniella Kearney [facility] LAB BLOOD ORDERABLES Angle l Result Performing Organization Address [facility] Co de Phone Number [address] [address] * (ABNORMAL) Lupus anticoagulant panel (03/18/2025 10:08 AM EDT) Lupus anticoagulant (Hexagonal Phase) Positive (A) Negative [facility] 03/18/2025 10:0 8 AM EDT 03/18/2025 11:17 AM EDT Daniella Kearney [facility] LAB BLOOD ORDERABLES Angle l Result Performing Organization Address [facility] Co de Phone Number [facility] [address] [place] [address] * Special coagulation interpretation (03/18/2025 10:08 AM EDT) SPECIAL SYG SENAIT. (NOTE) [facility] Comment: 1. The PT [...] syndrome. For updated criteria please see PMID [id number]. IgG anticardiolipin antibody is normal. Note that [...] hexagonal phase PTT-LA OR positive DRVVT OR anticardiolipin/[id number] I as well as thrombosis or complications). Persistently positive tests and proximity to the clinical event increase the likelihood of APLAS. If clinically indicated, repeat testing at least 12 weeks from the positive result. For updated criteria please see PMID [id number]. 3. Factor II, V, VII, and VIII activities could not be interpreted in the context of apixaban. Performing Pathologist: Kanika Phipps MD Signout Location: [facility] [address] [place] [address] Drag Car Racer: Raffy Chinchilla MD 03/18/2025 10:0 8 AM EDT 03/18/2025 11:17 AM EDT us Daniella Kearney [facility] LAB BLOOD ORDERABLES Angle l Result Performing Organization Address [facility]/ZIP Co de Phone Number [facility] [address] [place] [address] * Special slide box (03/18/2025 10:08 AM EDT) Only the most recent of2 resultswithin the time period is included. SPECIAL SLIDE BOX Slide in Main Heme Lab [facility] Blood 03/18/2025 10:0 8 AM EDT 03/18/2025 10:29 AM EDT Daniella Kearney [facility] LAB BLOOD BKR ORDERABLES Final Result Performing Organization Address [facility] [place] [address] * PTT mixing studies (03/18/2025 10:08 AM EDT) PTT MIXING STUDY Credit [facility] Comment:Unable to perform mi jaosn study, the PTT on this specimen is normal. Blood 03/18/2025 10:0 8 AM EDT 03/18/2025 11:17 AM EDT Daniella Kearney [facility] LAB BLOOD BKR ORDERABLES Final Result Performing Organization Address City/[facility]/[place] [address] * PT mixing studies (03/18/2025 10:08 AM EDT) PT MIXING STUDY Results are uninterpretable due to apixaban. [facility] Blood 03/18/2025 10:0 8 AM EDT 03/18/2025 11:17 AM EDT Daniella Beefausto [place] [employer] LAB BLOOD ORDERABLES Angle l Result Performing Organization Address City/[facility]/ZIP Co de Phone Number [address] [address] * Clotting Inhibitor Level (03/18/2025 10:08 AM EDT) FACTOR INHIBITOR Results are uninterpretable due to apixaban. 0 - 0.5 BU [facility] Blood 03/18/2025 10:0 8 AM EDT 03/18/2025 11:17 AM EDT Daniella Acefausto Kearney [facility] LAB BLOOD BKR ORDERABLES Final Result Performing Organization Address [facility] Co de Phone Number [address] [address] * (ABNORMAL) Lupus anticoagulant panel (03/18/2025 10:08 AM EDT) PTT-LA Preliminary positive, see PTTLA (confirm)(A) Negative for a lupus anticoagul ant. [facility] Comment:Testing done after r emoving heparin from sample. DRVVT Screen Results are uninterpretable due to apixaban.(A) Negative for a lupus anticoagul ant. [facility] Blood 03/18/2025 10:0 8 AM EDT 03/18/2025 11:17 AM EDT Daniella Kearney [facility] LAB BLOOD BKR ORDERABLES Final Result Performing Organization Address City/[facility] Co de Phone Number [address] [address] * (ABNORMAL) Anti-cardiolipin antibodies (03/18/2025 10:08 AM EDT) ANTICARDIOLIPIN IGG <9.4 0.0 - 20.0 GPL [facility] ANTICARDIOLIPIN IGM 24.4(H) 0.0 - 20.0 MPL [facility] Blood 03/18/2025 10:0 8 AM EDT 03/18/2025 11:17 AM EDT Daniella Kearney [facility] LAB BLOOD BKR ORDERABLES Final Result Performing Organization Address City/[facility]/ZIP Co de Phone Number [address] [address] * Factor VIII (03/18/2025 10:08 AM EDT) FACTOR VIII Results are uninterpretable due to apixaban. 50 - 150 % [facility] Comment:Corrected on 03/22 A T 1245: previously reported as 248 This test overestimates FVIII activity in patients taking emicizumab/hemlibra and underestimates FVIII activity in patients taking efanesoctocog nelson/Altuviiio. Blood 03/18/2025 10:0 8 AM EDT 03/18/2025 11:17 AM EDT Daniella Gamboa Christel [facility] LAB BLOOD BKR ORDERABLES Edited Result - Final Performing Organization Address [facility] Co de Phone Number [address] [address] * Factor VII (03/18/2025 10:08 AM EDT) FACTOR VII Results are uninterpretable due to apixaban. 60 - 150 % [facility] Comment:Corrected on 03/22 A T 1244: previously reported as 7 Blood 03/18/2025 10:0 8 AM EDT 03/18/2025 11:17 AM EDT Daniella Kearney [facility] LAB BLOOD ORDERABLES Edit ed Result - Final Performing Organization Address City/[facility]/ZIP Co de Phone Number [address] [address] * Factor V (03/18/2025 10:08 AM EDT) FACTOR V Results are uninterpretable due to apixaban. 60 - 150 % [facility] Comment:Corrected on 03/22 A T 1243: previously reported as 13 Blood 03/18/2025 10:0 8 AM EDT 03/18/2025 11:17 AM EDT Daniella Kearney [facility] LAB BLOOD ORDERABLES Edit ed Result - Final Performing Organization Address [facility] Co de Phone Number [address] [address] * FACTOR II (03/18/2025 10:08 AM EDT) FACTOR II Results are uninterpretable due to apixaban. 60 - 150 % [facility] Comment:Corrected on 03/22 A T 1243: previously reported as 46 Blood 03/18/2025 10:0 8 AM EDT 03/18/2025 11:17 AM EDT Daniella Kearney [facility] LAB BLOOD ORDERABLES Edit ed Result - Final Performing Organization Address [facility] Co de Phone Number [address] [address] * Sodium, random urine (03/18/2025 10:01 AM EDT) Only the most recent of4 resultswithin the time period is included. URINE SODIUM <20 mmol/L [facility] Comment:Results must be inte rpreted based on patient context and with other clinical and laboratory data. Urine (Urine) 03/18/2025 10: 01 AM EDT 03/18/2025 10:12 AM EDT Daniella Kearney [facility] LAB URINE ORDERABLES Angle l Result Performing Organization Address [facility] Co de Phone Number [address] [address] * (ABNORMAL) Ketone bodies, serum (03/18/2025 4:46 AM EDT) BETA HYDROXYBUTYRATE 0.5(H) <0.4 mmol/L [facility] Blood 03/18/2025 4:46 AM EDT 03/18/2025 5:03 AM EDT Carmelina Walden [facility] LAB BLOOD BKR ORDERABLES Angle l Result Performing Organization Address City/[facility]/ZIP Co de Phone Number [address] [address] * Cryoglobulins (03/18/2025 4:46 AM EDT) Only the most recent of2 resultswithin the time period is included. CRYOPROTEIN None present. [facility] Comment:Normal: None present Blood 03/18/2025 4:46 AM EDT 03/18/2025 5:03 AM EDT Carmelina Walden [facility] LAB BLOOD ORDERABLES Final Re sult Performing Organization Address [facility] Co de Phone Number [address] [address] * Babesia species PCR (03/18/2025 12:22 AM EDT) Pathologist [facility] B. Microti DNA, PCR Not Detected Not Detected [facility] Comment: A negative result indicates absence of [...] and its performance characteristics determined by the [facility]. It has not been cleared or approved by the U.S. Food and Drug Administration, but such licensure is not required since this laboratory is approved under CLIA for high complexity testing. Blood 03/18/2025 12:2 2 AM EDT 03/18/2025 3:53 AM EDT Carmelina Walden [facility] LAB BLOOD ORDERABLES Final Re sult Performing Organization Address [facility] Co de Phone Number [address] [address] * HIV-1 viral load (PCR) (03/18/2025 12:22 AM EDT) [facility] HIV-1 RNA PCR Not Detected Not Detected cp/mL [facility] Comment: Assay Range: 20-10,000,000 cp/ml Please refer any questions to the Molecular Diagnostics Lab at extension [phone]. This is a quantitative assay utilizing real-time [...] EDT 03/18/2025 1:04 AM EDT Carmelina Walden [facility] LAB BLOOD BKR ORDERABLES Angle l Result Performing Organization Address [facility] Co de Phone Number [address] [address] * AFP (non-maternal specimens) (03/18/2025 12:22 AM EDT) [facility] AFP (NON-MATERNAL) <1.8 <7.9 ng/mL [facility] Comment: Note: Reference interval does not apply [...] 2 AM EDT 03/18/2025 12:49 AM EDT Carmelina Walden [facility] LAB BLOOD BKR ORDERABLES Angle l Result Performing Organization Address [facility] Co de Phone Number [address] [address] * CT HEAD WITHOUT CONTRAST (03/17/2025 10:09 PM EDT) Anatomical Region Laterality Modality Head Computed Tomogra phy 03/17/2025 10:1 7 PM EDT Impressions 03/17/2025 10:57 PM EDT No evidence of acute territorial infarction, hemorrhage, intracranial mass, or hydrocephalus. Chronic changes as described. ATTESTATION: Juventino Cleveland as teaching physician, have reviewed the images for this case and if necessary edited the report originally created by Sudheer Kramer. Narrative 03/17/2025 10:[address] HEAD WITHOUT CONTRAST Referring clinician's provided indication for this examination in [facility]: * Mental status change, unknown cause; 65 [...] clinician's provided indication for this examination in [facility]: *Mental status change, unknown cause; 65 yo [...] Juventino Arellano as teaching physician, have reviewed theimages for this case and if necessary edited the report originally createdby Sudheer Kramer. Carmelina Walden CNP IM CT HEAD/NECK Final Result * Ehrlichia/anaplasma PCR (03/17/2025 8:10 PM EDT) ANAPLASMA PHAGOCYTO Negative Negative [facility] DPT OF LAB MED AND PAT+ EHRLICHIA CHAFFEENS Negative Negative [facility] DPT OF LAB MED AND PAT+ EHRL EWINGII/CANIS Negative Negative [facility] DPT OF LAB MED AND PAT+ EHRL MURIS-LIKE Negative Negative [facility] DPT OF LAB MED AND PAT+ Comment: (NOTE) ADDITIONAL INFORMATION This test was developed and its performance characteristics determined by [facility] in a manner consistent with CLIA requirements. This test has not been cleared or approved by the U.S. Food and Drug Administration. Blood 03/17/2025 8:10 PM EDT 03/17/2025 8:31 PM EDT Carmelina Walden [facility] LAB BLOOD ORDERABLES Final Re sult [facility] DPT OF LAB MED AND PAT+ [address] [place] [address] * (ABNORMAL) LDH (03/17/2025 8:10 PM EDT) Only the most recent of3 resultswithin the time period is included. LDH 556(H) 110 - 210 U/L [facility] Comment:Hemolysis present, r esult falsely increased. Blood 03/17/2025 8:10 PM EDT 03/17/2025 8:31 PM EDT Carmelina Walden [facility] LAB BLOOD BKR ORDERABLES Angle l Result Performing Organization Address City/[facility]/ZIP Co de Phone Number [facility] [address] [place] [address] * Haptoglobin (03/17/2025 8:10 PM EDT) Only the most recent of3 resultswithin the time period is included. HAPTOGLOBIN 152 30 - 200 mg/dL [facility] Blood 03/17/2025 8:10 PM EDT 03/17/2025 8:31 PM EDT eLama [facility] LAB BLOOD BKR ORDERABLES Angle l Result Performing Organization Address City/[facility]/ZIP Co de Phone Number [facility] [address] [place] [address] * CPK (creatine kinase) (03/17/2025 8:10 PM EDT) CREATINE KINASE 87 40 - 150 U/L [facility] 03/17/2025 8:10 PM EDT 03/17/2025 8:31 PM EDT us Patrick Troncoso MD LAB BLOOD BKR ORDERABL ES Final Result Performing Organization Address City/[facility]/ZIP Co de Phone Number [facility] [address] [place] [address] * Phosphatidylethanol (03/17/2025 8:02 PM EDT) PEth 16:0/18:1 (POPEth) by LC-MS/MS <10 Cutoff: 10 ng/mL [facility] MED[facility] Comment: (NOTE) Phosphatidylethanol (PEth) [...] (PLPEth) by LC-MS/MS <10 Cutoff: 10 ng/mL [facility] Comment: (NOTE) PEth 16:0/18:2 (PLPEth) Reference ranges are not well established PEth Interpretation Negative. [facility] Comment: (NOTE) ADDITIONAL INFORMATION This report is intended for use in clinical monitoring and management of patients. It is not intended for use in employment-related testing. This test was developed and its performance characteristics determined by [facility] in a manner consistent with CLIA requirements. This test has not been cleared or approved by the U.S. Food and Drug Administration. Blood 03/17/2025 8:02 PM EDT 03/17/2025 8:32 PM EDT us Carmelina Walden CNP LAB BLOOD BKR ORDERABLES Angle l Result [facility] [address] [place] [address] * Hepatitis A antibody, IgM (03/17/2025 8:02 PM EDT) Hepatitis A Antibody, IgM Negative Negative [facility] Comment:IgM anti-HAV not det ected. Does not exclude the possibility of exposure to or infection with HAV. Levels of IgM anti-HAV may be below the cut-off in early infection. Blood 03/17/2025 8:02 PM EDT 03/17/2025 8:32 PM EDT eLama [facility] LAB BLOOD BKR ORDERABLES Angle l Result Performing Organization Address City/[facility] Co de Phone Number [address] [address] * Basic serum toxicology (03/17/2025 8:02 PM EDT) Pathologist [facility] SALICYLATES <0.3 0.0 - 20.0 mg/dL [facility] ACETAMINOPHEN <5.0 0.0 - 25.0 ug/mL [facility] ETHANOL Negative Negative mg/dL [facility] TRICYCLIC Negative Negative [facility] Blood 03/17/2025 8:02 PM EDT 03/17/2025 8:32 PM EDT eLama [facility] LAB BLOOD BKR ORDERABLES Angle l Result Performing Organization Address City/[facility] Co de Phone Number [address] [address] * (ABNORMAL) Toxicology screen, urine (03/17/2025 8:02 PM EDT) Pathologist [facility] URINE AMPHETAMINES Positive(A) Negative [facility] Comment:A false positive res ult can be caused by use of Labetalol, Ranitidine, or Trazodone. URINE BENZODIAZEPINE Positive(A) Negative [facility] URINE COCAINE METAB Negative Negative [facility] URINE OPIATES Positive(A) Negative [facility] URINE OXYCODONE Negative Negative [facility] Fentanyl, urine Negative Negative [facility] URINE CREATININE 132 mg/dL [facility] Urine (Urine) 03/17/2025 8:0 2 PM EDT 03/17/2025 9:47 PM EDT us Carmelina Walden CNP LAB URINE ORDERABLES Final Re sult Performing Organization Address [facility] Co de Phone Number [address] [address] * Urinalysis (03/17/2025 8:02 PM EDT) Only the most recent of2 resultswithin the time period is included. COLOR Yellow Yellow [facility] CLARITY Clear Clear [facility] GLUCOSE Negative Negative [facility] BILI Negative Negative [facility] KETONES Negative Negative [facility] SPECIFIC GRAVITY 1.017 1.001 - 1.035 [facility] BLOOD Negative Negative [facility] PH 5.0 5.0 - 9.0 [facility] Protein-UA Negative Negative [facility] UROBILINOGEN Negative Negative [facility] NITRITE Negative Negative [facility] Leukocyte esterase, ur Negative Negative [facility] Urine (Urine) 03/17/2025 8:0 2 PM EDT 03/17/2025 9:47 PM EDT Carmelina Walden CNP LAB URINE ORDERABLES Final Re sult Performing Organization Address [facility] Co de Phone Number [address] [address] * Acetaminophen level (03/17/2025 8:02 PM EDT) ACETAMINOPHEN <5.0 0.0 - 25.0 ug/mL [facility] Blood 03/17/2025 8:02 PM EDT 03/17/2025 8:32 PM EDT Carmelina Walden CNP LAB BLOOD BKR ORDERABLES Angle l Result Performing Organization Address City/[facility]/ZIP Co de Phone Number [address] [address] * ABO and Rh (03/17/2025 7:47 PM EDT) Expiration Date of Sample 03/20/2025 11:59 PM [facility] ABO A 03/17/2025 8:51 PM EDT [facility] Rh Positive 03/17/2025 8:51 PM EDT [facility] Resulting Agency [facility] 03/17/2025 7:47 PM EDT 03/17/2025 7:52 PM EDT Blood Bank LAB BLOOD BANK TEST ORDERABLES F inal Result [address] [address] * Vancomycin Resistant Enterococci (VRE), Rectal Screen (03/17/2025 7:44 PM EDT) Special Requests No Special Requests 03/17/2025 7:44 PM EDT [facility] VRE Rectal Culture NEGATIVE FOR VRE 03/19/2025 7:56 AM EDT [facility] Stool (Stool swab) 03/17/2025 7:44 PM EDT 03/17/2025 10:01 PM EDT Carmelina Walden CNP LAB MICROBIOLOGY CULTURE ORDE RABLES Final Result Performing Organization Address City/[facility]/ZIP Co de Phone Number [address] [address] * (ABNORMAL) D-dimer (03/17/2025 1:37 PM EDT) D-DIMER 6,286(H) <500 ng/mL [facility]U [facility] Comment:In patients with low to moderate pre-test probability scores for VTE (PE or DVT), a D-Dimer cut-off less than 500 ng/mL (FEU) has a negative predictive value (NPV) of 97 to 100%. Blood 03/17/2025 1:37 PM EDT 03/17/2025 1:55 PM EDT Quiana Hernandez MD LAB BLOOD BKR ORDERABLES Fi nal Result [facility] [address] [place] [address] * CT ABDOMEN/PELVIS WITHOUT CONTRAST (03/17/2025 11:56 [...] 4. No biliary ductal dilatation or hydronephrosis. Quiana Hernandez MD IM CT ABD/PELVIS Final Res ult * Rheumatoid factor (03/17/2025 7:51 AM EDT) RHEUMATOID FACTOR 10.9 0.0 - 14.0 IU/ml [facility] Blood 03/17/2025 7:51 AM EDT 03/17/2025 8:33 AM EDT Quiana Hernandez MD LAB BLOOD BKR ORDERABLES Fi nal Result [address] [address] * (ABNORMAL) MONOCLONAL PROTEIN STUDY, RANDOM URINE (03/16/2025 10:52 AM EDT) M-Protein Isotope MS, Random, U No monoclonal protein detected. [facility] Comment: (NOTE) ADDITIONAL INFORMATION The submitted sample was assayed by five separate immunopurifications for IgG, IgA, IgM, kappa and lambda. The result reflects the findings of either no monoclonal protein detected or those monoclonal immunoglobulins that were detected. This test was developed and its performance characteristics determined by [facility] in a manner consistent with CLIA requirements. This test has not been cleared or approved by the U.S. Food and Drug Administration. Flag M-Protein Isotope MS, Random, U Negative Negative [facility] MED/[address] Albumin 48.8 mg/dL [facility] DR Alpha-1 Globulin 1.6 mg/dL [facility]/[address] Alpha-2 Globulin 8.0 mg/dL [facility]/[address] Beta Globulin 11.2 mg/dL [facility] LAB [facility]/[address] Gamma Globulin 9.6 mg/dL [facility]/[address] A/G RATIO 1.61 % [facility]/[address] M SPIKE Test component not applicable or not reported. [facility] [address] M SPIKE Test component not applicable or not reported. [facility] IMPRESSION SEE NOTE [facility] [address] Comment: (NOTE) All fractions present, no apparent M-spike. See Isotype. ADDITIONAL INFORMATION This test has been modified from the aircraft instrument mechanic's instructions. Its performance characteristics were determined by [facility] in a manner consistent with CLIA requirements. This test has not been cleared or approved by the U.S. Food and Drug Administration. Protein, Total, Random, U 80 mg/dL [facility] DPT OF LAB MED AND PAT+ Creatinine, Random, U 167 16 - 326 mg/dL [facility] DPT OF LAB MED AND PAT+ Protein/Creatinine Ratio 0.48(H) <0.18 mg/mg [facility] DPT OF LAB MED AND PAT+ Urine (Urine) 03/16/2025 10: 52 AM EDT 03/16/2025 9:03 PM EDT us Quiana Hernandez MD URINE ORDERABLES Final Resu lt Performing Organization Address City/[facility]/ZIP Co de Phone Number [facility] DPT OF LAB MED AND PAT+ [address] [place] [address] [facility] [address] [place] [address] * (ABNORMAL) Fecal immunochemical test x1 (FIT) (03/16/2025 7:31 AM EDT) Immuno Fecal Occult Positive(A ) Negative [facility] Stool (Stool) 03/16/2025 7:3 1 AM EDT 03/17/2025 8:39 AM EDT us Sarah Pandya MD, PhD LAB BODY FLUIDS AND STOOL OR DERABLES Final Result [facility] [address] [place] [address] * (ABNORMAL) 25-OH vitamin D (03/16/2025 5:56 AM EDT) 25 OH VIT D (TOTAL) 101(H) 30 - 60 ng/mL [facility] Blood 03/16/2025 5:56 AM EDT 03/16/2025 6:11 AM EDT us Sarah Pandya MD, PhD LAB BLOOD BKR ORDERABLES Fin al Result [facility] [address] [place] [address] * Glomerular basement membrane (GBM) antibody (03/15/2025 5:40 PM EDT) GBM AB <0.2 <1.0 (Negative) U [facility] MED/[address] Blood 03/15/2025 5:40 PM EDT 03/15/2025 5:53 PM EDT us Sarah Pandya MD, PhD LAB BLOOD ORDERABLES Final R esult Performing Organization Address [facility] Co de Phone Number [facility] MED/[facility] [address] [place] [address] * ANTISTREPTOLYSIN O (ASO) SCREEN (03/15/2025 5:40 PM EDT) ANTISTREP O TITER <20 0 - 530 IU/mL [facility] MED/[facility] [address] Blood (Blood) 03/15/2025 5:4 0 PM EDT 03/15/2025 5:57 PM EDT Sarah Pandya MD, PhD LAB BLOOD BKR ORDERABLES Fin al Result Performing Organization Address [facility] Co de Phone Number [facility] MED/[address] [place] [address] * Liver kidney microsomal (LKM1) antibodies (03/15/2025 5:40 PM EDT) LKM1 ANTIBODIES <5.0 <=20.0 (Negative) U [facility] MED/[facility] [place] Blood 03/15/2025 5:40 PM EDT 03/15/2025 5:57 PM EDT us Sarah Pandya MD, PhD LAB BLOOD ORDERABLES Final R esult [facility] MED/PATH [address] [place] [address] * Double stranded DNA antibodies (03/15/2025 5:40 PM EDT) ANTI DSDNA ANTIBODY Negative at 1:10 [facility] Comment: Performing Pathologist, Zelda Rainey M.D., Ph.D. [id number] Normal: Negative at 1:10 To interpret a negative test for anti-[place] or double stranded DNA antibodies in a [...] ORDERABLES Fin al Result Performing Organization Address [facility] de Phone Number [address] [address] * Anti-Neutrophil Cytoplasmic Antibody (ANCA) (03/15/2025 5:40 PM EDT) C-ANCA Negative Negative [facility] P-ANCA Negative Negative [facility] Comment: (NOTE) Negative for cANCA and pANCA patterns by immunofluorescence. ADDITIONAL INFORMATION This test was developed and its performance characteristics determined by [facility] in a manner consistent with CLIA requirements. This test has not been cleared or approved by the U.S. Food and Drug Administration. Blood 03/15/2025 5:40 PM EDT 03/15/2025 5:53 PM EDT Sarah Pandya MD, PhD LAB BLOOD BKR ORDERABLES Fin al Result Performing Organization Address [facility] de Phone Number [facility] MED/PATH [address] [place] [address] * XR Chest Portable (03/15/2025 8:06 AM EDT) Anatomical Region Laterality Modality Chest Computed Radiogr aphy 03/15/2025 8:16 AM EDT Impressions 03/15/2025 8:21 AM EDT Trace right pleural effusion. Narrative 03/15/2025 8:21 AM EDT XR CHEST PORTABLE Referring clinician's provided indication for this examination in [facility]: Infection COMPARISON: XR CHEST 1 VIEW ; [...] clinician's provided indication for this examination in [facility]:Infection COMPARISON: XR CHEST 1 VIEW ; XR [...] EDT) TSH 3.24 0.27 - 4.20 uIU/mL [facility] 03/15/2025 5:38 AM EDT 03/15/2025 5:51 AM EDT us Sarah Pandya MD, PhD LAB BLOOD BKR ORDERABLES Fin al Result Performing Organization Address [facility] Co de Phone Number [address] [address] * Smear for eosinophils (03/14/2025 1:59 PM EDT) Neutrophils (manual) Few [facility] SMEAR FOR EOS None None [facility] Specimen Source/Descripti on RANDOM URINE [facility] 03/14/2025 1:59 PM EDT 03/14/2025 2:44 PM EDT us Antolin Bucio MD LAB BLOOD ORDERABLES Final Resul t Performing Organization Address [facility] Co de Phone Number [address] [address] * (ABNORMAL) TOTAL PROTEIN CREATININE RATIO, RANDOM URINE (03/14/2025 1:59 PM EDT) URINE TOTAL PROTEIN 57.0 mg/dL [facility] URINE CREATININE 215 mg/dL [facility] URINE TP CRE RATIO 0.27(H) 0 - 0.19 [facility] 03/14/2025 1:59 PM EDT 03/15/2025 9:03 AM EDT us Tim Grossman MD LAB URINE ORDERABLES Angle l Result Performing Organization Address [facility] Co de Phone Number [address] [address] * Osmolality, Random Urine (03/14/2025 1:59 PM EDT) URINE OSMOLALITY 367 mOsm/kg water [facility] Urine (Urine) 03/14/2025 1:5 9 PM EDT 03/14/2025 2:44 PM EDT us Sarah Pandya MD, PhD LAB URINE ORDERABLES Final R esult Performing Organization Address City/[facility]/ZIP Co de Phone Number [address] [address] * Creatinine, random urine (03/14/2025 1:59 PM EDT) Only the most recent of2 resultswithin the time period is included. URINE CREATININE 210 mg/dL [facility] Urine (Urine) 03/14/2025 1:5 9 PM EDT 03/14/2025 2:44 PM EDT us Antolin Bucio MD LAB URINE ORDERABLES Final Resul t Performing Organization Address [facility] Co de Phone Number [address] [address] * US Kidneys and Bladder (03/12/2025 9:54 AM EDT) Anatomical Region Laterality Modality Abdomen, Kidney Ultrasound 03/12/2025 11:4 8 AM EDT Impressions 03/12/2025 11:50 AM EDT 1. No hydronephrosis. 2. Small volume ascites. Narrative 03/12/2025 11:50 AM EDT US KIDNEYS AND BLADDER Referring clinician's provided indication for this examination in [facility]: Renal failure, acute TECHNIQUE: Kidney Ultrasound. COMPARISON: MRI CHOLANGIOPANCREATOGRAPHY (MRCP) WITHOUT CONTRAST FINDINGS: Right Kidney: Size: 8.7 cm No stones or hydronephrosis. Left Kidney: Size: 9.3 cm No stones or hydronephrosis. Bladder: Not well distended. Small volume ascites. Procedure Note Patrick Woods MD - 03/12/2025 US KIDNEYS AND BLADDER Referring clinician's provided indication for this examination in [facility]:Renal failure, acute TECHNIQUE: Kidney Ultrasound. COMPARISON: MRI CHOLANGIOPANCREATOGRAPHY (MRCP) WITHOUT [id number] FINDINGS: Right Kidney: Size: 8.7 cm No stones or hydronephrosis. Left Kidney: Size: 9.3 cm No stones or hydronephrosis. Bladder: Not well distended. Small volume ascites. IMPRESSION: 1. No hydronephrosis. 2. Small volume ascites. us Jeniffer Moy MD [facility] US RENAL Final Result * Antinuclear antibody, titer and pattern (03/12/2025 5:43 AM EDT) GILBERTO TITER 1:160 Nucleolar [facility] 03/12/2025 5:43 AM EDT 03/12/2025 5:55 AM EDT Mark Steele MD LAB BLOOD BKR ORDERABLES Fin al Result Performing Organization Address [facility] de Phone Number [address] [address] * Smooth Muscle Antibody (03/12/2025 5:43 AM EDT) ANTI-SMOOTH MUSCLE AB Negative Negative [facility] [address] Comment: (NOTE) Negative: No further testing will be performed ADDITIONAL INFORMATION This test was developed and its performance characteristics determined by [facility] in a manner consistent with CLIA requirements. This test has not been cleared or approved by the U.S. Food and Drug Administration. Blood 03/12/2025 5:43 AM EDT 03/12/2025 5:55 AM EDT us Mark Steele MD LAB BLOOD ORDERABLES Final R esult Performing Organization Address [facility]/ZIP Co de Phone Number [facility] [address] [place] [address] * (ABNORMAL) Antinuclear antibody (GILBERTO) (03/12/2025 5:43 AM EDT) GILBERTO SCREEN ON HEP 2 Positive(A ) Negative [facility] Comment: Atypical GILBERTO pattern observed, further testing may be indicated. An GILBERTO Titer has been reflexed. The results will follow. Blood 03/12/2025 5:43 AM EDT 03/12/2025 5:55 AM EDT us Mark Steele MD LAB BLOOD BKR ORDERABLES Fin al Result [facility] [address] [place] [address] * MRI CHOLANGIOPANCREATOGRAPHY (MRCP) WITHOUT CONTRAST (03/11/2025 [...] IAS/IVS The interatrial septum is suboptimally visualized. Naila A Ugandan DO CV ECHO ORDERABLES Final Resu lt * HEPATITIS A ANTIBODY, TOTAL (03/11/2025 5:33 AM EDT) HAV TOTAL AB NON-REACTI VE NON-REACTI VE [facility] Blood 03/11/2025 5:33 AM EDT 03/11/2025 5:42 AM EDT us Naila A Ugandan DO LAB BLOOD BKR ORDERABLES Angle pardo Result [address] [address] * Hepatitis C antibody, qualitative (03/11/2025 5:33 AM EDT) [facility] HCV NON-REACTIV E NON-REACTI VE [facility] Blood 03/11/2025 5:33 AM EDT 03/11/2025 5:42 AM EDT [facility] LAB BLOOD BKR ORDERABLES Angle l Result Performing Organization Address City/[facility]/ZIP Co de Phone Number [address] [address] * Iron and iron binding capacity (03/11/2025 5:33 AM EDT) [facility] IRON 39 30 - 160 ug/dL [facility] IRON BINDING CAPACITY 256 228 - 428 ug/dL [facility] TRANSFERRIN SATURAT. 15 15 - 50 % [facility] Blood 03/11/2025 5:33 AM EDT 03/11/2025 5:42 AM EDT [facility] LAB BLOOD BKR ORDERABLES Angle l Result Performing Organization Address [facility] Co de Phone Number [address] [address] * Jessica-Jacobs virus (EBV) PCR, blood (03/11/2025 5:33 AM EDT) [facility] EBV Blood, PCR Undetected Undetected IU/mL [facility] [address] Comment: (NOTE) Result in log IU/mL is Undetected. ADDITIONAL INFORMATION The quantification range of this assay is 35 to 100,000,000 IU/mL (1.54 log to 8.00 log IU/mL). Testing was performed using the amanda EBV test ([employer] Blood (Blood) 03/11/2025 5:3 3 AM EDT 03/11/2025 5:41 AM EDT Naila A Ugandan DO LAB BLOOD BKR ORDERABLES Angle l Result [facility]/PATH [address] [place] [address] * Hepatitis B core antibody, total (03/11/2025 5:33 AM EDT) [facility] HEP B CORE AB, TOT NON-REACTI VE NON-REACTI VE [facility] Blood 03/11/2025 5:33 AM EDT 03/11/2025 5:42 AM EDT Result [facility] Naila A Ugandan DO LAB BLOOD BKR ORDERABLES Angle l Result Performing Organization Address [facility] Co de Phone Number [address] [address] * Cytomegalovirus (CMV) PCR, blood (03/11/2025 5:33 AM EDT) [facility] CMV DNA DETECT/QUANT Undetected Undetected IU/mL [facility] Comment: (NOTE) Result in log IU/mL is Undetected. ADDITIONAL INFORMATION The quantification range of this assay is 35 to 10,000,000 IU/mL (1.54 log to 7.00 log IU/mL). Testing was performed using the amanda CMV test ([employer] Blood (Blood) 03/11/2025 5:3 3 AM EDT 03/11/2025 5:41 AM EDT Naila A Ugandan DO LAB BLOOD BKR ORDERABLES Angle l Result Performing Organization Address City/[facility]/ZIP Co de Phone Number [facility]/PATH [address] [place] [address] * Hepatitis B surface antibody (03/11/2025 5:33 AM EDT) HBV SURFACE ANTIBODY NON-REACTI VE [facility] Comment: Unvaccinated: Non Reactive Vaccinated: Reactive Blood 03/11/2025 5:33 AM EDT 03/11/2025 5:42 AM EDT us Naila A Ugandan DO LAB BLOOD BKR ORDERABLES Angle l Result [address] [address] * Hepatitis B surface antigen (03/11/2025 5:33 AM EDT) HBV SURFACE ANTIGEN NON-REACTI VE NON-REACTI VE [facility] Blood 03/11/2025 5:33 AM EDT 03/11/2025 5:42 AM EDT us Naila A Ugandan DO LAB BLOOD BKR ORDERABLES Angle l Result Performing Organization Address City/[facility]/ZIP Co de Phone Number [address] [address] * Hemoglobin A1c (03/11/2025 5:33 AM EDT) HEMOGLOBIN A1C 5.8 4.3 - 5.8 % [facility] Blood 03/11/2025 5:33 AM EDT 03/11/2025 5:41 AM EDT Naila A Ugandan DO LAB BLOOD BKR ORDERABLES Angle l Result Performing Organization Address City/[facility]/ZIP Co de Phone Number [address] [address] * Folate (03/11/2025 5:33 AM EDT) FOLIC ACID 5.5 4.2 - 19.9 ng/mL [facility] Blood 03/11/2025 5:33 AM EDT 03/11/2025 5:42 AM EDT Naila Mcmanus Ugandan DO LAB BLOOD BKR ORDERABLES Angle l Result Performing Organization Address [facility]/ZIP Co de Phone Number [address] [address] * (ABNORMAL) Ferritin (03/11/2025 5:33 AM EDT) FERRITIN 197(H) 13 - 150 ug/L [facility] Blood 03/11/2025 5:33 AM EDT 03/11/2025 5:42 AM EDT Naila Mcmanus Ugandan DO LAB BLOOD BKR ORDERABLES Angle l Result Performing Organization Address [facility] Co de Phone Number [address] [address] * (ABNORMAL) Vitamin B12 (03/11/2025 5:33 AM EDT) VITAMIN B12 1,409(H) 232 - 1,245 pg/mL [facility] Blood 03/11/2025 5:33 AM EDT 03/11/2025 5:42 AM EDT Naila Mcmanus Ugandan DO LAB BLOOD BKR ORDERABLES Angle l Result Performing Organization Address [facility] Co de Phone Number [address] [address] * POCT Glucose (03/10/2025 8:57 PM EDT) 03/10/2025 8:57 PM EDT Naila A Ugandan DO LAB POCT ENTER/EDIT ORDERABLE S Final Result * XR CHEST 1 VIEW (03/10/2025 2:43 PM EDT) Anatomical Region Laterality Modality Chest Computed Radiogr aphy 03/10/2025 3:39 PM EDT Impressions 03/10/2025 3:40 PM EDT No acute abnormality. Narrative 03/10/2025 3:40 PM EDT XR CHEST 1 VIEW Referring clinician's provided indication for this examination in [facility]: Fatigue; hypoxia on arrival COMPARISON: 03/07/2025 FINDINGS: Devices/Tubes/Lines: None. Lungs: No focal consolidation or pulmonary edema. Minimal right basilar atelectasis. Pleura: No pleural effusion or pneumothorax. Heart/Mediastinum: The heart and mediastinum are normal. Bones/Soft Tissues: No significant abnormality. Procedure Note Modesto Christianson MBBS - 03/10/2025 XR CHEST 1 VIEW Referring clinician's provided indication for this examination in [facility]:Fatigue; hypoxia on arrival COMPARISON: 03/07/2025 FINDINGS: Devices/Tubes/Lines: [...] clinician's provided indication for this examination in [facility]: Dyspnea (Shortness of Breath) COMPARISON: XR CHEST 1 VIEW FINDINGS: Devices/Tubes/Lines: None. Lungs: No focal consolidation or pulmonary edema. Pleura: No pleural effusion or pneumothorax. Heart/Mediastinum: Normal heart and mediastinum. Bones/Soft Tissues: No significant abnormality. Procedure Note Malachi Tracy MD, MPH - 03/07/2025 XR CHEST PORTABLE Referring clinician's provided indication for this examination in [facility]:Dyspnea (Shortness of Breath) COMPARISON: XR CHEST 1 VIEW FINDINGS: Devices/Tubes/Lines: None. Lungs: No focal consolidation or pulmonary edema. Pleura: No pleural effusion or pneumothorax. Heart/Mediastinum: Normal heart and mediastinum. Bones/Soft Tissues: No significant abnormality. IMPRESSION: No acute abnormality. us Mary English PA-C IMG XR CHEST Final Resul t * ENDOSCOPY, COLON (07/28/2024 1:55 PM EST) Narrative Transcriptions Melchor Collins MD - 07/28/2024 1:55 PM EST [facility] Patient Name: Bella Coburn Attending MD:: MELCHOR COLLINS MD, Procedure Date: 07/28/2024 1:55 PM Date of : 1960 Age: 64 Admit Type: Inpatient Gender: Female Room: [place] [address] Referring MD: MELCHOR FALK MD Exam Type: [...] monitored continuously. The Olympus adult variable colonoscope [id number] #7 was introduced through the anus and [...] 1:55 PM Procedure Code(s): --- Professional --- 54736, Colonoscopy, flexible; with removal of tumor(s), polyp(s), or other lesion(s) by snare technique --- Technical --- 46230, Colonoscopy, flexible; with removal of tumor(s), polyp(s), [...] in this report are preliminary and upon caustic pump operator reviewmay be revised to meet current compliance requirements. Procedure Date: 07/28/2024 1:55:[address] [place] [address] us Melchor Falk MD GI PROCEDURE [...] indication for this examination in Epic: * Chest pain or SOB, pleurisy or [...] provided indication for this examination in Epic: *Chest pain or SOB, pleurisy or effusion [...] nodules, most likelybenign. us Audra Gutierrez MD IM CT CHEST Final Result * BD DXA AXIAL (SPINE) WITH HIP (12/16/2018 11:00 AM EDT) Anatomical Region Laterality Modality Bone Density Bone Density 12/16/2018 4:21 PM EDT Impressions 12/16/2018 4:24 PM EDT Bone mineral density remains normal. Statistically significant bone mineral density losses at the left hip and within the lumbar spine compared with 07/11/2016. POS -[id number] Narrative 12/16/2018 4:24 PM EDT This is [...] within the lumbar spinecompared with 07/11/2016. POS -[id number] us Trish Hammonds MD IMG BD BONE DENSITY [...] There are scattered fibroglandular densities. POS - [id number] Narrative 10/09/2018 2:42 PM EDT Full-field digital [...] There are scattered fibroglandular densities. 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 [place] [id number] [place], [place] [address] MEDICARE REPLACEMENT MEDICARE PART A & B [facility] MEDICARE REPLACEMENT MEDICARE PART A & B MEDICARE PART A & B MEDICARE REPLACEMENT Advance Directives For more information, please contact: [phone] (9AM - 5PM [facility], Friday-Friday) Documents on File Type Date Recorded Patient Peripheral Vascular Tech Ulises JUDGE 04/15/2025 9:15 AM Healthcare Proxy 03/21/2021 3:14 PM * DNR/DNI (No CPR/No Intubation) (Latest Code [...] Agents on File Name Relationship Healthcare Agent [facility] p Communication Ana Luisa Garcia Other .Primary Health Care Agent (Proxy form on file) Olvin Borges [facility] Healt hcare Agent (Proxy form on file) Care Teams Delivery Stock Clerk Relationship Specialty Start Date End Date Griselda Bello NP [address] [place] [address] PCP - General Nurse Practitioner 01/26/25 Noe Mccann MD Ophthalmology 02/11/19 Audra Gutierrez MD [address] [place] [address] [address] [place] [address] [email or web address] Intensive Care 02/11/19 Edouard Mosley MD [address] [place] [address], [address] [place] [address] Plastic and Reconstructive Surgery 02/11/19 Nara Tejada MD [address] [place] [address], [address] [place] [address] [email or web address] Consulting Provider Nephrology 02/11/19 Jose Thomas MD [address] [place] [address] [email or web address] Consulting Provider Infectious Diseases 02/11/19 Trish Hammonds MD [address] [facility], [address] [address] [email or web address] Rheumatology 02/11/19 Celina He DPM [address] [place] [address], [address] [address] [email or web address] Podiatry 02/11/19 Elizabeth Goode MD [address] [place] [address] Psychologist 03/27/20 Additional Source Comments The information contained in this document represents components of the legal health record. It is not the complete legal health record.[facility]
--- OUTSIDE RECORDS SUMMARY | 2025-05-03 19:16 | XMS_ITS | Encounter Summary ---
Author Organization [facility] Address [address] [facility] [address] [place] [address] Phone Care Team Providers Care Cover Operator Name Role Phone Olvin Harvey MD Primary Care Provide r Olvin Harvey MD Unavailable [phone] Chelsy MclaughlinW Unavailable [email or web address] Ema Dumas DO Primary Care Provider Krissy Hernandez Primary Care Pro vider Martin Green MD Primary Care Provider [phone] Martin Bales MD Unavailable Jose Gallagher MD Unavailable [phone] Ramiro Schmidt MD Unavailable Enio Starkey MD Unavailable [phone] Kenneth Carter MD Unavailable Noe Mccann MD Unavailable Unavailable Audra Gutierrez MD Unavailable Edouard Mosley MD Unavailable Martin Green MD Primary Care Provider + Nara Tejada MD Unavailable [phone] Jose Thomas MD Unavailable + [phone] Trish Hammonds MD Unavailable [phone]- [phone] PayamcharCelina DPM Unavailable [phone] Olvin Harvey MD Unavailable [phone] Fabián Seaman MD Unavailable +[phone] Elizabeth Goode MD Unavailable [phone] Martin Green MD Primary Care Provider + Martin Green MD Primary Care Provider + Griselda Bello NP Primary Care Provider [phone] Encounter Details Date Type Department Care Team (Latest Contact Info) Description 05/26/2017 Transcribe Orders [address] [address] Julien Steel MD [address] [place] [address] [email or web address] Inguinal pain, unspecified laterality (Primary Dx) Social [...] 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 3rd Floor, [address] [place] [address] Minda Nelson DNP 22 [facility], [address] [place] [address] 08/31/2025 11:50 AM EDT Office Visit [facility] Pul[facility], Allergy and Critical Care Medicine [address] [place] [address] Audra Gutierrez MD [address] [place] [address] 2nd [place] [address] [email or web address] documented as of this encounter Results * (ABNORMAL) Comprehensive metabolic panel (05/26/2017 12:16 PM EST) SODIUM 138 133 - 146 mmol/L [facility] POTASSIUM 4.4 3.3 - 5.1 mmol/L [facility] CHLORIDE 96 96 - 108 mmol/L [facility] CO2 30 21 - 35 mmol/L [facility] BUN 20(H) 6 - 19 mg/dL [facility] CREATININE 1.00 0.5 - 1.5 mg/dL [facility] GLUCOSE 148(H) 70 - 99 mg/dL [facility] ALBUMIN 4.0 3.9 - 4.8 g/dL [facility] TOTAL PROTEIN 7.0 6.5 - 8.0 g/dL [facility] CALCIUM 9.7 8.4 - 10.3 mg/dL [facility] ALKALINE PHOSPHATASE 110 39 - 117 U/L [facility] TOTAL BILIRUBIN 0.3 0 - 1.2 mg/dL [facility] AST 25 0 - 37 U/L [facility] ALT 14 0 - 40 U/L [facility] GLOBULIN 3.0 1 - 4.8 g/dL [facility] EGFR 57(L) >60 mL/min/1.7 3m2 [facility] Comment:Abnormal if <60. If patient is -Belarusian, multiply the result by 1.21. ANION GAP 16 10 - 20 mmol/L [facility] Blood 05/26/2017 12:1 6 PM EST 05/26/2017 12:21 PM EST us Julien Steel MD LAB BLOOD BKR ORDERABLES Angle pardo Result [facility] [address] [place] [address] * (ABNORMAL) CBC and differential (05/26/2017 12:16 PM EST) WBC 10.68 3.40 - 11.20 K/uL [facility] RBC 4.53 3.80 - 4.80 M/uL [facility] HGB 13.5 12.0 - 15.0 g/dL [facility] HCT 38.9 36.0 - 46.0 % [facility] PLT 320 130 - 400 K/uL [facility] MCV 85.9 79.0 - 98.0 fL [facility] MCH 29.8 27.0 - 34.8 pg [facility] MCHC 34.7 31.5 - 36.0 g/dL [facility] RDW 12.4 10.8 - 14.6 % [facility] MPV 9.4 9.4 - 12.4 fl [facility] NRBC 0.00 /100 WBCs [facility] ABSOLUTE NRBC 0.00 K/uL [facility] DIFF METHOD Auto [facility] NEUTS 71.3 45.30 - 77.70 % [facility] LYMPHS 20.6 12.30 - 39.70 % [facility] MONOS 5.0 4.10 - 12.80 % [facility] EOS 2.0 0 - 7.2 % [facility] BASOS 0.5 0 - 2.80 % [facility] Granulocytes, immature (%) 0.6 0.0 - 0.9 % [facility] ABSOLUTE NEUTS 7.63 1.40 - 7.70 K/uL [facility] ABSOLUTE LYMPHS 2.20 0.60 - 3.20 K/uL [facility] ABSOLUTE MONOS 0.53 0.11 - 0.59 K/uL [facility] ABSOLUTE EOS 0.21 0.01 - 0.50 K/uL [facility] ABSOLUTE BASOS 0.05 0.00 - 0.08 K/uL [facility] Granulocytes, immature 0.06(H) 0.00 - 0.05 K/uL [facility] Blood 05/26/2017 12:1 6 PM EST 05/26/2017 12:21 PM EST Julien Steel MD LAB BLOOD BKR ORDERABLES Angle l Result Performing Organization Address City/[facility]/ZIP Co de Phone Number [facility] [address] [place] [address] * Tissue transglutaminase IgA (05/26/2017 12:16 PM EST) TTG IGA ANTIBODY <1.2 <4.0 (Negative) U/mL [facility] DPT OF LAB MED AND PAT+ Blood 05/26/2017 12:1 6 PM EST 05/26/2017 12:22 PM EST Julien Steel MD LAB BLOOD BKR ORDERABLES Angle l Result [facility] DPT OF LAB MED AND PAT+ [address] [place] [address] * Immunoglobulin A (05/26/2017 12:16 PM EST) IgA 111 70 - 400 mg/dL [facility] Blood 05/26/2017 12:1 6 PM EST 05/26/2017 12:21 PM EST us Julien Steel MD LAB BLOOD BKR ORDERABLES Angle l Result [facility] [address] [place] [address] documented in this encounter Visit Diagnoses Diagnosis [...] documented as of this encounter Care Teams Cover Operator Relationship Specialty Start Date End Date Olvin Harvey MD 22 [facility] 1 [place] [address] [email or web address] PCP - General 12/07/13 06/11/18 Ema Kaufman DO [address] [place] [address] [email or web address] PCP - General 06/12/18 09/22/18 Krissy Hernandez PA [address] [place] [address] [email or web address] PCP - General Internal Medicine 09/23/18 10/04/18 Martin Green MD [address] [place] [address] [email or web address] PCP - General Internal Medicine 10/05/18 02/10/19 Martin Green MD [address] [place] [phone] [email or web address] PCP - General Internal Medicine 02/11/19 04/11/20 Martin Green MD [address] [place] [address] [email or web address] PCP - General Internal Medicine 04/12/20 05/25/23 Martin Green MD [address] [place] [phone] [email or web address] PCP - General Internal Medicine 05/26/23 01/25/25 Griselda Bello NP [address] [place] [address] PCP - General Nurse Practitioner 01/26/25 Olvin Harvey MD 22 [facility] 1 [place] [address] [email or web address] Insurance Assigned Provider 04/12/17 02/10/19 Chelsy Mclaughlin SHAPER MACHINE HAND 22 [facility] 1 [place] [address] [email or web address] Campaign Assistant 08/08/17 07/05/18 Martin Bales MD [address] [place] [address] [email or web address] Gastroenterology 10/07/18 11/13/20 Jose Gallagher MD [address] [place] [address], [address] [address] [email or web address] Urology 10/07/18 11/13/20 Ramiro Schmidt MD [address] [place] [address], [address] [address] [email or web address] Endocrinology 02/11/19 11/13/20 Enio Starkey MD [address] [place] [address], [address] [place] [address] [email or web address] Cardiology 02/11/19 11/13/20 Kenneth Carter MD [address] [place] [address] Neurology 02/11/19 11/13/20 Noe Mccann MD Ophthalmology 02/11/19 Audra Gutierrez MD [address] [place] [address] 2nd [place] [address] [email or web address] Intensive Care 02/11/19 Edouard Mosley MD [address] [place] [address], [address] [place] [address] [email or web address] Plastic and Reconstructive Surgery 02/11/19 Nara Tejada MD [address] [place] [address], [address] [place] [address] [email or web address] Consulting Provider Nephrology 02/11/19 Jose Thomas MD [address] [place] [address] [email or web address] Consulting Provider Infectious Diseases 02/11/19 Trish Hammonds MD [address] [place] [address] [email or web address] Rheumatology 02/11/19 Celina He DPM [address] [place] [address], [facility] [address] [place] [address] [email or web address] Podiatry 02/11/19 Olvin Harvey MD 22 [facility] 1 [place] [address] [email or web address] Insurance Assigned Provider 04/12/17 03/06/19 Fbaián Seaman MD [address] [place] [address], [address] [place] [address] [email or web address] Insurance Assigned Provider 03/06/19 07/09/19 Elizabeth Goode MD [address] [place] [address] [address] [place] [address] Psychologist 03/27/20 documented as of this encounter Additional Source Comments The information contained in this document represents components of the legal health record. It is not the complete legal health record.[facility]
--- OUTSIDE RECORDS SUMMARY | 2025-05-03 19:16 | XMS_ITS | Encounter Summary ---
Author Organization [facility] Address [address] [facility] [address] [place] [address] Phone Care Team Providers Care Carpenter And Joiner Name Role Phone Noe Mccann MD Unavailable Unavailable Audra Gutierrez MD Unavailable Edouard Mosley MD Unavailable Nara Tejada MD Unavailable Jose Thomas MD Unavailable [phone] Trish Hammonds MD Unavailable Celina He DPM Unavailable [phone] Elizabeth Goode MD Unavailable Griselda Bello PHILOSOPHY PROFESSOR Primary Care Provider [phone] Encounter Details Date Type Department Care Team (Late st Contact Info) Description 03/21/2025 Procedure Pass [facility], Josh [address] 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 Not on file Not on file documented as of this encounter Plan of Treatment Upcoming Encounters Date Type Department Care Team ([facility] st Contact Info) Description 04/28/2025 Procedure Pass Non-Invasive Cardiology [address] [place] [address] 05/12/2025 1:00 PM EST Appointment Non-Invasive Cardiology [address] [place] [address] [place] [address] Tano Dueñas MD [address] [place] [address] 07/29/2025 1:00 PM EST Office Visit [facility] [address] [place] [address] 3rd Floor, [address] [place] [address] Minda Nelson, ESTRELLITA [address] [place] [address], [address] [address] 08/31/2025 11:50 AM EDT Office Visit [facility] Pulmonary, Allergy and Critical Care Medicine [address] [place] [address] Audra Gutierrez MD [address] [place] [address] documented as of this encounter Visit Diagnoses [...] documented as of this encounter Care Teams Carpenter And Joiner Relationship Specialty Start Date End Date Griselda Bello NP [address] [place] [address] PCP - General Nurse Practitioner 01/26/25 Noe Mccann MD Ophthalmology 02/11/19 Audra Gutierrez MD [address] [place] [address] 2nd [place] [address] [email or web address] Intensive Care 02/11/19 Edouard Mosley MD [address] [place] [address], [address] [place] [address] [email or web address] Plastic and Reconstructive Surgery 02/11/19 Nara Tejada MD [address] [place] [address], [address] [place] [address] [email or web address] Consulting Provider Nephrology 02/11/19 Jose Thomas MD [address] [place] [address] [email or web address] Consulting Provider Infectious Diseases 02/11/19 Trish Hammonds MD [address] [place] [address], [address] [place] [address] Rheumatology 02/11/19 Celina He DPM [address] [place] [address], [address] [place] [address] Podiatry 02/11/19 Elizabeth Goode MD [address] [place] [address] Psychologist 03/27/20 documented as of this encounter Additional Source Comments The information contained in this document represents components of the legal health record. It is not the complete legal health record.[facility]
--- OUTSIDE RECORDS SUMMARY | 2025-05-03 19:16 | XMS_ITS | Encounter Summary ---
Author Organization [facility] Address [address] [place] [address] Care Team Providers Care Family Service Aide Name Role Phone Martin Green Primary Care Provider [phone] Encounter Details Date Type Department Care Team (Late st Contact Info) Description 05/10/2022 Telephone [facility] Central Scheduling Department [address] [place] [address] Telephone Intake, Staff Social History Tobacco Use [...] Description 08/25/2025 2:00 PM EDT Office Visit [facility] [address] [place] [address] Finished Goods Stock Clerk: Kenneth Walsh MD PhD [address] [place] [address] documented as of this encounter Visit Diagnoses Not on filedocumented in this encounter Care Teams Family Service Aide Relationship Specialty Start Date End Date Martin Green [address] [place] [address] PCP - General Internal Medicine 10/08/18 documented as of this encounter
--- OUTSIDE RECORDS SUMMARY | 2025-05-03 19:16 | XMS_ITS | Encounter Summary ---
Author Organization [facility] Address [address] [facility] [address] [place] [address] Phone Care Team Providers Care Vault Custodian Name Role Phone Olvin Harvey MD Primary Care Provide r Olvin Harvey MD Unavailable [phone] Chelsy MclaughlinW Unavailable [email or web address] Ema Dumas DO Primary Care Provider Krissy Hernandez Primary Care Pro vider Martin Green MD Primary Care Provider [phone] Martin Bales MD Unavailable Jose Gallagher MD Unavailable [phone] Ramiro Schmidt MD Unavailable Enio Starkey MD Unavailable [phone] Kenneth Carter MD Unavailable [phone] Noe Mccann MD Unavailable Unavailable Audra Gutierrez MD Unavailable Edouard Mosley MD Unavailable Martin Green MD Primary Care Provider + Nara Tejada MD Unavailable [phone] Jose Thomas MD Unavailable + [phone] Trish Hammonds MD Unavailable [phone] Joan HericardoBud Lima ZAKIA Unavailable [phone] Olvin Harvey MD Unavailable [phone] Fabián Seaman MD Unavailable +[phone] Elizabeth Goode MD Unavailable [phone] Martin Green MD Primary Care Provider + Martin Green MD Primary Care Provider [phone] Griselda Bello NP Primary Care Provider [phone] Encounter Details Date Type Department Care Team (Late st Contact Info) Description 04/23/2017 Procedure Pass [facility], [address] [address] Social History Tobacco Use Types Packs/Day Years [...] Description 04/28/2025 Procedure Pass Non-Invasive Cardiology [address] [place] [address] 05/12/2025 1:00 PM EST Appointment Non-Invasive Cardiology [address] [place] [address] Tano Dueñas MD 22 [facility], [address] [place] [address] 07/29/2025 1:00 PM EST Office Visit [facility] [address], [address] [place] [address] Minda Nelson DNP 22 [facility], [address] [address] 08/31/2025 11:50 AM EDT Office Visit [facility], Allergy and Critical Care Medicine [address] [place] [address] [place] [address] Audra Gutierrez MD [address] [place] [address] documented as of this encounter Visit Diagnoses [...] documented as of this encounter Care Teams Vault Custodian Relationship Specialty Start Date End Date Olvin Harvey MD [address] [address] [email or web address] PCP - General 12/07/13 06/11/18 Ema Kaufman DO [address] [place] [address] [email or web address] PCP - General 06/12/18 09/22/18 Krissy Hernandez PA [address] [place] [address] [email or web address] PCP - General Internal Medicine 09/23/18 10/04/18 Martin Green MD [address] [place] [address] [email or web address] PCP - General Internal Medicine 10/05/18 02/10/19 Martin Green MD [address] [place] [address] [email or web address] PCP - General Internal Medicine 02/11/19 04/11/20 Martin Green MD [address] [place] [address] [email or web address] PCP - General Internal Medicine 04/12/20 05/25/23 Martin Green MD [address] [place] [phone] [email or web address] PCP - General Internal Medicine 05/26/23 01/25/25 Griselda Bello NP [address] [place] [address] PCP - General Nurse Practitioner 01/26/25 Olvin Harvey MD 22 [facility] 1 [place] [address] [email or web address] Insurance Assigned Provider 04/12/17 02/10/19 Chelsy Mclaughlin [facility] 22 [facility] 1 [place] [address] [email or web address] Process Development Engineer 08/08/17 07/05/18 Martin Bales MD [address] [place] [address] [email or web address] Gastroenterology 10/07/18 11/13/20 Jose Gallagher MD [address] [place] [address], [address] [place] [address] [email or web address] Urology 10/07/18 11/13/20 Ramiro Schmidt MD [address] [place] [address], [address] [place] [address] [email or web address] Endocrinology 02/11/19 11/13/20 Enio Starkey MD [address] [place] [address], [address] [place] [address] [email or web address] Cardiology 02/11/19 11/13/20 Kenneth Carter MD [address] [place] [address] Neurology 02/11/19 11/13/20 Noe Mccann MD Ophthalmology 02/11/19 Audra Gutierrez MD [address] [place] [address] 2nd [place] [address] [email or web address] Intensive Care 02/11/19 Edouard Mosley MD [address] [place] [address], [address] [place] [address] [email or web address] Plastic and Reconstructive Surgery 02/11/19 Nara Tejada MD [address] [place] [address], [address] [place] [address] [email or web address] Consulting Provider Nephrology 02/11/19 Jose Thomas MD [address] [place] [address] [email or web address] Consulting Provider Infectious Diseases 02/11/19 Trish Hammonds MD 22 [facility], [address] [place] [address] Rheumatology 02/11/19 Celina He DPM 22 [facility], [address] [place] [address] [email or web address] Podiatry 02/11/19 Olvin Harvey MD 22 [facility] Floor 1 [place] [address] [email or web address] Insurance Assigned Provider 04/12/17 03/06/19 Fabián Seaman MD 22 [facility], [address] [place] [address] [email or web address] Insurance Assigned Provider 03/06/19 07/09/19 Elizabeth Goode MD [address] [place] [address] [address] [place] [address] Psychologist 03/27/20 documented as of this encounter Additional Source Comments The information contained in this document represents components of the legal health record. It is not the complete legal health record.[facility]
--- OUTSIDE RECORDS SUMMARY | 2025-05-03 19:16 | XMS_ITS | Encounter Summary ---
Author Organization [facility] Address [address] [facility] [address] [place] [address] Phone Care Team Providers Care Factory Maintenance Manager Name Role Phone Olvin Harvey MD Primary Care Provide r Olvin Harvey MD Unavailable [phone] Chelsy MclaughlinW Unavailable [email or web address] Ema Dumas DO Primary Care Provider Krissy Hernandez Primary Care Pro vider Martin Green MD Primary Care Provider [phone] Martin Bales MD Unavailable Jose Gallagher MD Unavailable [phone] Ramiro Schmidt MD Unavailable [phone] Enio Starkey MD Unavailable [phone] Kenneth Carter MD Unavailable Noe Mccann MD Unavailable Unavailable Audra Gutierrez MD Unavailable Edouard Mosley MD Unavailable Martin Green MD Primary Care Provider + Nara Tejada MD Unavailable [phone] Jose Thomas MD Unavailable + [phone] Trish Hammonds MD Unavailable [phone]- [phone] Celina He DPM Unavailable [phone] Olvin Harvey MD Unavailable [phone] Fabián Seaman MD Unavailable +[phone] Elizabeth Goode MD Unavailable [phone] Martin Green MD Primary Care Provider + Martin Green MD Primary Care Provider +[phone] Griselda Bello NP Primary Care Provider [phone] Encounter Details Date Type Department Care Team (Latest Contact Info) Description 05/19/2017 Transcribe Orders [facility] Phleb Main 30 [place] [address] Ramiro Schmidt MD [address] [place] [address] [email or web address] Hypercalcemia (Primary Dx) Social History Tobacco [...] 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 Not on file Not on file documented as of this encounter Plan of Treatment Upcoming Encounters Date Type Department Care Team (Late st Contact Info) Description 04/28/2025 Procedure Pass Non-Invasive Cardiology [address] [place] [address] 05/12/2025 1:00 PM EST Appointment Non-Invasive Cardiology [address] [place] [address] Tano Dueñas MD 22 [facility], [address] [place] [address] 07/29/2025 1:00 PM EST Office Visit [facility] [address], [address] [place] [address] Minda Nelson DNP 22 [facility], [address] [place] [address] 08/31/2025 11:50 AM EDT Office Visit [facility] Pulmonary, Allergy and Critical Care Medicine [address] [place] [address] Audra Gutierrez MD [address] [place] [address] 2[address] [place] [address] documented as of this encounter Procedures Procedure [...] CORTISOL AM 5.5(L) 6.2 - 19.4 ug/dL [facility] Blood 05/19/2017 8:16 AM EST 05/19/2017 8:25 AM EST us Ramiro Schmidt MD LAB BLOOD BKR ORDERABLES Fi nal Result Performing Organization Address City/[facility]/ZIP Co de Phone Number [address] [address] * (ABNORMAL) TSH (05/19/2017 8:16 AM EST) Pathologist [facility] TSH 8.50(H) 0.27 - 4.20 uIU/mL [facility] Blood 05/19/2017 8:16 AM EST 05/19/2017 8:25 AM EST us Ramiro Schmidt MD LAB BLOOD BKR ORDERABLES Fi nal Result Performing Organization Address [facility] Co de Phone Number [address] [address] * Parathyroid hormone (PTH) (05/19/2017 8:16 AM EST) Pathologist [facility] PARATHYROID HORMONE 19 15 - 65 pg/mL [facility] Blood 05/19/2017 8:16 AM EST 05/19/2017 8:20 AM EST us Ramiro Schmidt MD LAB BLOOD BKR ORDERABLES Fi nal Result Performing Organization Address [facility] Co de Phone Number [address] [address] * (ABNORMAL) 25-OH vitamin D (05/19/2017 8:16 AM EST) 25 OH VIT D (TOTAL) 17(L) 30 - 1,000 ng/mL [facility] Blood 05/19/2017 8:16 AM EST 05/19/2017 8:25 AM EST Ramiro Schmidt MD LAB BLOOD BKR ORDERABLES Fi nal Result Performing Organization Address [facility] de Phone Number [address] [address] * Magnesium (05/19/2017 8:16 AM EST) MAGNESIUM 1.6 1.6 - 2.6 mg/dL [facility] Blood 05/19/2017 8:16 AM EST 05/19/2017 8:25 AM EST Ramiro Schmidt MD LAB BLOOD BKR ORDERABLES Fi nal Result Performing Organization Address [facility] de Phone Number [address] [address] * Vitamin A (05/19/2017 8:16 AM EST) VITAMIN A 65.7 32.5 - 78.0 mcg/dL [facility] Comment: (NOTE) ADDITIONAL INFORMATION This test was developed and its performance characteristics determined by [facility] in a manner consistent with CLIA requirements. This test has not been cleared or approved by the U.S. Food and Drug Administration. Blood 05/19/2017 8:16 AM EST 05/19/2017 8:23 AM EST Ramiro Schmidt MD LAB BLOOD ORDERABLES Final Result Performing Organization Address [facility] de Phone Number [facility] [address] [place] [address] * (ABNORMAL) Renal panel (05/19/2017 8:16 AM EST) SODIUM 138 133 - 146 mmol/L [facility] POTASSIUM 4.0 3.3 - 5.1 mmol/L [facility] CHLORIDE 98 96 - 108 mmol/L [facility] CO2 31 21 - 35 mmol/L [facility] GLUCOSE 193(H) 70 - 99 mg/dL [facility] BUN 22(H) 6 - 19 mg/dL [facility] CREATININE 1.00 0.5 - 1.5 mg/dL [facility] CALCIUM 9.0 8.4 - 10.3 mg/dL [facility] PHOSPHORUS 4.2 2.7 - 4.5 mg/dL [facility] ALBUMIN 3.6(L) 3.9 - 4.8 g/dL [facility] EGFR 57(L) 60 - 1,000 mL/min/1.7 3m2 [facility] Comment:Abnormal if <60. If patient is -Grenadian, multiply the result by 1.21. ANION GAP 13 10 - 20 mmol/L [facility] Blood 05/19/2017 8:16 AM EST 05/19/2017 8:25 AM EST us Ramiro Schmidt MD LAB BLOOD BKR ORDERABLES Fi nal Result Performing Organization Address City/State/[facility] Co de Phone Number [facility] 30 [place], [place] [phone] documented in this encounter Visit Diagnoses Diagnosis [...] documented as of this encounter Care Teams Factory Maintenance Manager Relationship Specialty Start Date End Date Olvin Harvey MD 22 [facility] 1 [place] [address] [email or web address] PCP - General 12/07/13 06/11/18 Ema Kaufman DO [address] [place] [address] [email or web address] PCP - General 06/12/18 09/22/18 Krissy Hernandez PA [address] [place] [address] [email or web address] PCP - General Internal Medicine 09/23/18 10/04/18 Martin Green MD [address] [place] [address] [email or web address] PCP - General Internal Medicine 10/05/18 02/10/19 Martin Green MD [address] [place] [address] [email or web address] PCP - General Internal Medicine 02/11/19 04/11/20 Martin Green MD [address] [place] [address] [email or web address] PCP - General Internal Medicine 04/12/20 05/25/23 Martin Green MD [address] [place] [phone] [email or web address] PCP - General Internal Medicine 05/26/23 01/25/25 Griselda Bello NP [address] [place] [address] PCP - General Nurse Practitioner 01/26/25 Olvin Harvey MD [address] [address] [email or web address] Insurance Assigned Provider 04/12/17 02/10/19 Chelsy Mclaughlin, [facility] 22 [facility] 1 [place] [address] [email or web address] Milk Hauler 08/08/17 07/05/18 Martin Bales MD [address] [place] [address] [email or web address] Gastroenterology 10/07/18 11/13/20 Jose Gallagher MD [address] [place] [address], [address] [place] [address] [email or web address] Urology 10/07/18 11/13/20 Ramiro Schmidt MD [address] [place] [address], [address] [place] [address] [email or web address] Endocrinology 02/11/19 11/13/20 Enio Starkey MD [address] [place] [address], [address] [place] [address] [email or web address] Cardiology 02/11/19 11/13/20 Kenneth Carter MD [address] [place] [address] Neurology 02/11/19 11/13/20 Noe Mccann MD Ophthalmology 02/11/19 Audra Gutierrez MD [address] [place] [address] 2nd [place] [address] [email or web address] Intensive Care 02/11/19 Edouard Mos[place] MD [address] [place] [address], [address] [place] [address] [email or web address] Plastic and Reconstructive Surgery 02/11/19 Nara Tejada MD [address] [place] [address], [address] [place] [address] [email or web address] Consulting Provider Nephrology 02/11/19 Jose Thomas MD [address] [place] [address] [email or web address] Consulting Provider Infectious Diseases 02/11/19 Trish Hammonds MD 22 [facility], [address] [place] [address] [email or web address] Rheumatology 02/11/19 Celina He DPM 22 [facility], [address] [place] [address] [email or web address] Podiatry 02/11/19 Olvin Harvey MD 22 [facility] Floor 1 [place] [address] [email or web address] Insurance Assigned Provider 04/12/17 03/06/19 Fabián Seaman MD 22 [facility], [address] [place] [address] [email or web address] Insurance Assigned Provider 03/06/19 07/09/19 Elizabeth Goode MD [address] [place] [address] [address] [place] [address] Psychologist 03/27/20 documented as of this encounter Additional Source Comments The information contained in this document represents components of the legal health record. It is not the complete legal health record.[facility]
--- OUTSIDE RECORDS SUMMARY | 2025-05-03 19:16 | XMS_ITS | Encounter Summary ---
Author Organization [facility] Address [address] [place] [address] [address] [place] [address] Phone Care Team Providers Care Planer Offbearer Name Role Phone Noe Mccann MD Unavailable Unavailable Audra Gutierrez MD Unavailable Edouard [place] MD Unavailable Nara Tejada MD Unavailable Jose Thomas MD Unavailable [phone] Trish Hammonds MD Unavailable [phone] Celina He DPEvelin Unavailable Elizabeth Goode MD Unavailable Griselda Bello WOOL WASHING MACHINE OPERATOR Primary Care Provider [phone] Encounter Details Date Type Department Care Team (Late st Contact Info) Description 03/10/2025 Procedure Pass [facility] Echo Lab [address] [place], [place] [phone] Social History Tobacco Use Types Packs/Day Years [...] 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 Not on file documented as of this encounter Functional Status * Calculated C-SSRS Risk Score (Lifetime/Recent) Answer Date of Assessment Author No Risk Indicated 03/10/2025 1:15 PM EDT Tanisha Paiz RN * [place] Suicide Severity Rating Scale (Screener/Recent Self-Report) Question [...] Info) Description 04/28/2025 Procedure Pass Non-Invasive Cardiology [address] [place] [address] [place] [address] 05/12/2025 1:00 PM EST Appointment Non-Invasive Cardiology [address] [place] [address] [place] [address] Tano Dueñas MD [address] [place] [address] 07/29/2025 1:00 PM EST Office Visit [facility] [address] [place] [address] 3rd Floor, [address] [address] Minda Nelson DNP [address] [place] [address], [address] [address] 08/31/2025 11:50 AM EDT Office Visit [facility] Pulmonary, Allergy and Critical Care Medicine 10 [facility] [place] [address] [place] [address] Audra Gutierrez MD [address] [email or web address] documented as of this encounter Visit Diagnoses [...] documented as of this encounter Care Teams Planer Offbearer Relationship Specialty Start Date End Date Griselda Bello NP [address] [place] [address] PCP - General Nurse Practitioner 01/26/25 Noe Mccann MD Ophthalmology 02/11/19 Audra Gutierrez MD [address] [place] [address] [email or web address] Intensive Care 02/11/19 Edouard [place] MD [address] [place] [address], [facility] [address] [place] [address] [email or web address] Plastic and Reconstructive Surgery 02/11/19 Nara Tejada MD [address] [place] [address], [address] [place] [address] [email or web address] Consulting Provider Nephrology 02/11/19 Jose Thomas MD [address] [place] [address] [email or web address] Consulting Provider Infectious Diseases 02/11/19 Trish Hammonds MD 22 [facility], [address] [address] [email or web address] Rheumatology 02/11/19 Celina He DPM 22 [facility], [address] [address] Podiatry 02/11/19 Elizabeth Goode MD [address] [place] [address] Psychologist 03/27/20 documented as of this encounter Additional Source Comments The information contained in this document represents components of the legal health record. It is not the complete legal health record.[facility]
--- OUTSIDE RECORDS SUMMARY | 2025-05-03 19:16 | XMS_ITS | Encounter Summary ---
Author Organization [facility] Address [address] [facility] [address] [place] [address] Phone Care Team Providers Care Pit Furnace Melter Name Role Phone Olvin Harvey MD Primary Care Provide r Olvin Harvey MD Unavailable [phone] Chelsy MclaughlinW Unavailable [email or web address] Ema Dumas DO Primary Care Provider Krissy Hernandez Primary Care Pro vider Martin Green MD Primary Care Provider [phone] Martin Bales MD Unavailable Jose Gallagher MD Unavailable [phone] Ramiro Schmidt MD Unavailable Enio Starkey MD Unavailable [phone] Kenneth Carter MD Unavailable Noe Mccann MD Unavailable Unavailable Audar Gutierrez MD Unavailable Edouard [place] MD Unavailable Martin Green MD Primary Care Provider + Nara Tejada MD Unavailable [phone] Jose Thomas MD Unavailable + [phone] Trish Hammonds MD Unavailable [phone] Amandodilia JoanricardojimboStephanieValerie Janie DPEvelin Unavailable [phone] Olvin Harvey MD Unavailable [phone] Fabián Seaman MD Unavailable +[phone] Elizabeth Goode MD Unavailable [phone] Martin Green MD Primary Care Provider + Martin Green MD Primary Care Provider +[phone] Griselda Bello NP Primary Care Provider [phone] Encounter Details Date Type Department Care Team (Late st Contact Info) Description 07/11/2017 Procedure Pass [facility], Ct Scan - [address] [address] Social History Tobacco Use Types Packs/Day Years [...] 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 Not on file documented as of this encounter Plan of Treatment Upcoming Encounters Date Type Department Care Team (Late st Contact Info) Description 04/28/2025 Procedure Pass Non-Invasive Cardiology [address] [place] [address] 05/12/2025 1:00 PM EST Appointment Non-Invasive Cardiology [address] [place] [address] [place] [address] Tano Dueñas MD [address] [place] [address], [address] [place] [address] 07/29/2025 1:00 PM EST Office Visit [facility] [address] [place] [address] 3rd Floor, [address] [place] [address] Minda Nelson DNP 22 [facility], [address] [address] 08/31/2025 11:50 AM EDT Office Visit [facility], Allergy and Critical Care Medicine 10 [place] [address] Audra Gutierrez MD [address] [place] [address] [email or web address] documented as of this [...] documented as of this encounter Care Teams Pit Furnace Melter Relationship Specialty Start Date End Date Olvin Harvey MD 22 [facility] 1 [place] [address] [email or web address] PCP - General 12/07/13 06/11/18 Ema Kaufman DO [address] [place] [address] [email or web address] PCP - General 06/12/18 09/22/18 Krissy Hernandez PA [address] [place] [address] [email or web address] PCP - General Internal Medicine 09/23/18 10/04/18 Martin Green MD [address] [place] [address] [email or web address] PCP - General Internal Medicine 10/05/18 02/10/19 Martin Green MD [address] [place] [address] [email or web address] PCP - General Internal Medicine 02/11/19 04/11/20 Martin Green MD [address] [place] [address] [email or web address] PCP - General Internal Medicine 04/12/20 05/25/23 Martin Green MD [address] [place] [phone] [email or web address] PCP - General Internal Medicine 05/26/23 01/25/25 Griselda Bello NP [address] [place] [address] PCP - General Nurse Practitioner 01/26/25 Olvin Harvey MD [address] [address] [email or web address] Insurance Assigned Provider 04/12/17 02/10/19 Chelsy Mclaughlin, [facility] [address] [address] [email or web address] Man 08/08/17 07/05/18 Martin Bales MD [address] [place] [address] [email or web address] Gastroenterology 10/07/18 11/13/20 Jose Gallagher MD [address] [place] [address], [address] [place] [address] [email or web address] Urology 10/07/18 11/13/20 Ramiro Schmidt MD [address] [place] [address], [address] [place] [address] [email or web address] Endocrinology 02/11/19 11/13/20 [place] [address] [place] [address], [address] [place] [address] [email or web address] Cardiology 02/11/19 11/13/20 Kenneth Carter MD [address] [place] [address] Neurology 02/11/19 11/13/20 Noe Mccann MD Ophthalmology 02/11/19 Audra Gutierrez MD 10 [facility] 2nd [place] [address] [email or web address] Intensive Care 02/11/19 Edouard [place] MD [address] [place] [address], [address] [place] [address] [email or web address] Plastic and Reconstructive Surgery 02/11/19 Nara Tejada MD [address] [place] [address], [address] [place] [address] [email or web address] Consulting Provider Nephrology 02/11/19 Jose Thomas MD [address] [place] [address] [email or web address] Consulting Provider Infectious Diseases 02/11/19 Trish Hammonds MD [address] [place] [address], [address] [place] [address] Rheumatology 02/11/19 Celina He DPM 22 [facility], [address] [place] [address] Podiatry 02/11/19 Olvin Harvey MD 22 [facility] Floor 1 [place] [address] [email or web address] Insurance Assigned Provider 04/12/17 03/06/19 Fabián Seaman MD 22 [facility], [address] [place] [address] [email or web address] Insurance Assigned Provider 03/06/19 07/09/19 Elizabeth Goode MD [address] [place] [address] 200 [place] [address] Psychologist 03/27/20 documented as of this encounter Additional Source Comments The information contained in this document represents components of the legal health record. It is not the complete legal health record.[facility]
--- OUTSIDE RECORDS SUMMARY | 2025-05-03 19:17 | XMS_ITS | Encounter Summary ---
Author Organization [facility] Address [address] [place] [address] [place] [address] Phone Care Team Providers Care Superintendent Terminal Name Role Phone Olvin Harvey MD Unavailable [phone] Martin Green MD Primary Care Provider [phone] Martin Bales MD Unavailable Jose Gallagher MD Unavailable [phone] Ramiro Schmidt MD Unavailable Enio Starkey MD Unavailable [phone] Kenneth Carter MD Unavailable Noe Mccann MD Unavailable Unavailable Audra Gutierrez MD Unavailable Edouard Mosley MD Unavailable Martin Green MD Primary Care Provider [phone] Nara Tejada MD Unavailable Jose Thomas MD Unavailable [phone] Trish Hammonds MD Unavailable Celina He DPM Unavailable Olvin Harvey MD Unavailable [phone] Fabián Seaman MD Unavailable [phone] Elizabeth Goode MD Unavailable [phone] Martin Green MD Primary Care Provider + Martin Green MD Primary Care Provider + Griselda Bello NP Primary Care Provider + [phone] Reason for Referral * MRI/CAT Scan - Closed Specialty Diagnoses / Procedures Referred By Contcaleb t Referred To Contact Diagnoses Atherosclerosis of craig coronary artery of craig heart without angina pectoris Procedures MCT (Mobile Cardiac Telemetry) Enio Starkey MD Phone: tel: fax: mailto:[email or web address] Referral ID Status Reason Start Date Expiration Date Visits Re quested Visits Authorized [id number] Closed 12/17/2018 12/17/2019 1 1 Encounter Details Date Type Department Care Team (Latest Contact Info) Description 12/17/2018 Ancillary Orders [facility] [address] [facility] 3rd Floor, [address] [place] [address] Enio Starkey MD [address] [place] [address] [email or web address] Atherosclerosis of craig coronary artery of craig heart without angina pectoris Social History Tobacco [...] 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 documented as of this encounter Plan of Treatment Upcoming Encounters Date Type Department Care Team (Late st Contact Info) Description 04/28/2025 Procedure Pass Non-Invasive Cardiology [address] [place] [address] 05/12/2025 1:00 PM EST Appointment Non-Invasive Cardiology [address] [place] [address] [place] [address] Tano Dueñas MD [facility], [address] [place] [address] 07/29/2025 1:00 PM EST Office Visit [facility] [address] [place] [address] 3rd Floor, [address] [place] [address] Minda Nelson DNP [address] [place] [address], [address] [address] 08/31/2025 11:50 AM EDT Office Visit [facility] [address] [place] [address] Audra Gutierrez MD [address] [place] [address] documented as of this encounter Results * [...] atrial contractions occurring about 1% oftotal beats. us Enio Starkey MD [facility] ORDERABLES Final Result documented in this encounter Visit Diagnoses Diagnosis Atherosclerosis of craig coronary artery of craig heart without angina pectoris Atherosclerosis of craig coronary artery of craig heart without angina pectoris documented in this [...] as of this encounter Care Teams Superintendent Terminal Relationship Specialty Start Date End Date Martin rGeen MD [address] [address] [email or web address] PCP - General Internal Medicine 10/05/18 02/10/19 Martin Green MD [address] [address] [email or web address] PCP - General Internal Medicine 02/11/19 04/11/20 Martin Green MD [address] [address] [email or web address] PCP - General Internal Medicine 04/12/20 05/25/23 Martin Green MD [address] [place] [address] [email or web address] PCP - General Internal Medicine 05/26/23 01/25/25 Griselda Bello NP [address] [place] [address] PCP - General Nurse Practitioner 01/26/25 Olvin Harvey MD [address] [address] [email or web address] Insurance Assigned Provider 04/12/17 02/10/19 Martin Bales MD [address] [place] [address] [email or web address] Gastroenterology 10/07/18 11/13/20 Jose Gallagher MD [address] [place] [address], [address] [place] [address] [email or web address] Urology 10/07/18 11/13/20 Ramiro Schmidt MD [address] [place] [address], [address] [place] [address] [email or web address] Endocrinology 02/11/19 11/13/20 Enio Starkey MD [address] [place] [address], [address] [place] [address] [email or web address] Cardiology 02/11/19 11/13/20 Kenneth Carter MD [address] [place] [address] Neurology 02/11/19 11/13/20 Noe Mccann MD Ophthalmology 02/11/19 Audra Gutierrez MD [address] [place] [address] 2nd [place] [address] [email or web address] Intensive Care 02/11/19 Edouard Mosley MD [address] [place] [address], [address] [place], [place] [id number] [email or web address] Plastic and Reconstructive Surgery 02/11/19 Nara Tejada MD [address] [place] [address], [address] [place] [address] [email or web address] Consulting Provider Nephrology 02/11/19 Jose Thomas MD [address] [place] [address] [email or web address] Consulting Provider Infectious Diseases 02/11/19 Trish Hammonds MD [address] [place] [address], [address] [place] [address] [email or web address] Rheumatology 02/11/19 Celina He DPM [address] [place] [address], [address] [place] [address] [email or web address] Podiatry 02/11/19 Olvin Harvey MD [facility] Floor 1 [place] [address] [email or web address] Insurance Assigned Provider 04/12/17 03/06/19 Fabián Seaman MD [address] [facility], [address] [place] [address] [email or web address] Insurance Assigned Provider 03/06/19 07/09/19 Elizabeth Goode MD [address] [place] [address] Psychologist 03/27/20 documented as of this encounter Additional Source Comments The information contained in this document represents components of the legal health record. It is not the complete legal health record.[facility]
--- OUTSIDE RECORDS SUMMARY | 2025-05-03 19:17 | XMS_ITS | Clinical Summary ---
Author Organization [facility], Address [address] [place] [address] Phone Care Team Providers Care Orthotics Assistant Name Role Phone Martin Green MD Primary Care Provider [phone] Allergies Active Allergy Reactions Criticality Noted Date [...] 2 Active cholecalciferol (VITAMIN D-3) 1.25 MG (17637 UT) tablet Take 50,000 Units by mouth [...] One Care Dual SNP ([id number]) HILARY SMITH [phone] Care Teams Orthotics Assistant Relationship Specialty Start Date End Date Martin Green MD [address] [place] [phone] PCP - General 04/13/19
--- OUTSIDE RECORDS SUMMARY | 2025-05-03 19:17 | XMS_ITS | Encounter Summary ---
Author Organization [facility] Address [address] [facility] [address] [place] [address] Phone Care Team Providers Care Buffing Line Set Up Worker Name Role Phone Noe Mccann MD Unavailable Unavailable Audra Gutierrez MD Unavailable [phone] Edouard Mosley MD Unavailable Nara Tejada MD Unavailable [phone] Jose Thomas MD Unavailable [phone] Trish Hammonds MD Unavailable Celina He DPEvelin Unavailable Elizabeth Goode MD Unavailable Griselda Bello SENIOR COMPLIANCE ANALYST Primary Care Provider [phone] Encounter Details Date Type Department Care Team (Late st Contact Info) Description 03/17/2025 Procedure Pass [facility], Ct Scan - [facility] [address] [place] [address] Social History Tobacco Use Types Packs/Day Years [...] 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 Not on file documented as of this encounter Functional Status * Calculated C-SSRS Risk Score (Lifetime/Recent) Answer Date of Assessment Author No Risk Indicated 03/17/2025 11:00 PM EDT Jillian Stern RN * [place] Suicide Severity Rating Scale (Screener/Recent Self-Report) Question [...] Info) Description 04/28/2025 Procedure Pass Non-Invasive Cardiology [address] [place] [address] [place] [address] 05/12/2025 1:00 PM EST Appointment Non-Invasive Cardiology [address] [place] [address] [place] [address] Tano Dueñas MD [address] [place] [address], [address] [address] 07/29/2025 1:00 PM EST Office Visit [facility] [address] [place] [address] 3rd Floor, [address] [place] [address] Minda Nelson DNP [address] [place] [address], [address] [address] 08/31/2025 11:50 AM EDT Office Visit [facility] [address] [facility] [address] [place], [place] [phone] Audra Gutierrez MD [address] [place] [address] [email or web address] documented as of this encounter [...] documented as of this encounter Care Teams Buffing Line Set Up Worker Relationship Specialty Start Date End Date Griselda Bello NP [address] [place] [address] PCP - General Nurse Practitioner 01/26/25 Noe Mccann MD Ophthalmology 02/11/19 Audra Gutierrez MD [address] [place] [address] [email or web address] Intensive Care 02/11/19 Edouard Mosley MD [address] [place] [address], [address] [place], [place] Plastic and Reconstructive Surgery 02/11/19 Nara Tejada MD [address] [place] [address], 3 [place] [address] [email or web address] Consulting Provider Nephrology 02/11/19 Jose Thomas MD [address] [place] [address] [email or web address] Consulting Provider Infectious Diseases 02/11/19 Trish Hammonds MD [address] [facility], [address] [place] [address] [email or web address] Rheumatology 02/11/19 Celina He DPM 22 [facility], [facility] [address] [place] [address] [email or web address] Podiatry 02/11/19 Elizabeth Goode MD [address] [place] [address] Psychologist 03/27/20 documented as of this encounter Additional Source Comments The information contained in this document represents components of the legal health record. It is not the complete legal health record.[facility]
--- OUTSIDE RECORDS SUMMARY | 2025-05-03 19:17 | XMS_ITS | Clinical Summary ---
Author Organization [facility] Address [address] [place] [address] Care Team Providers Care Tuck Pointer Helper Name Role Phone Martin Green Primary Care Provider [phone] Allergies Active Allergy Reactions Criticality Noted Date [...] Type Department Care Team Description 03/24/2025 Telephone [facility] [address] [place] [address] Coil Winder: Vania Waterman LPN 03/17/2025 Orders Only [facility] Multiple Sclerosis [address] [address] Coil Winder: Kecia Galicia MD 03/09/2025 Telephone [facility] [address] [place] [address] Coil Winder: Vania Waterman LPN 03/08/2025 Telephone [facility] Multiple Sclerosis [address] [address] Coil Winder: Ben Turcios LPN 03/08/2025 Refill [facility] [address] [place] [address] Coil Winder: Kenneth Walsh MD PhD Demyelinating disease 03/03/2025 Telephone [facility] [address] [place] [address] Coil Winder: Lucie Reece CCMA PAC Clinical Questions 03/03/2025 Telephone [facility] [address] [place] [address] Coil Winder: Elizabeth Hummel Telephone Intake, Staff PAC General Info 02/25/2025 Telephone [facility] [address] [place] [address] Coil Winder: Charles Phillips MA 02/23/2025 Refill [facility] [address] [place] [address] Coil Winder: Kenneth Walsh MD PhD Demyelinating disease 02/08/2025 Telephone [facility] [address] [place] [address] Coil Winder: Vania Waterman LPN 02/02/2025 1:00 PM EDT Office Visit [facility] [address] [place] [address] Coil Winder: Kenneth Walsh MD PhD Multiple sclerosis (HCC) (Primary Dx); Cerebrovascular disease; Demyelinating disease 01/31/2025 Telephone [facility] [address] [place] [address] Mercy Patrick RN 01/31/2025 Telephone [facility] [address] [place] [address] Coil Winder: Elizabeth Hummel Telephone Intake, Staff PAC Sick/Symptoms; PAC Nurse Scheduling Request from Last 3 Months Social History Tobacco [...] Description 08/25/2025 2:00 PM EDT Office Visit [facility] [address] [place] [address] Coil Winder: Kenneth Walsh MD PhD [address] [place] [address] Health Maintenance Due Date Last Done Comments [...] 07/23/2025 07/23/2024 Fall Risk Screening 08/19/2025 08/19/2024 DTaP,Tdap,and Td Vaccines (3 - Td or Tdap) 10/20/2028 10/20/2018, 12/11/2012 Osteoporosis Screening Completed 12/16/2018 CT Lung Cancer Screening (12 months, previous LungRADS 1 or 2) Discontinued 09/17/2023, 11/14/2020, 11/14/2020, Additional history exists Hepatitis B Vaccines Aged Out No long er eligible based on patient's age to complete this topic Procedures * Due to [place] [employer] law, this organization might not be sharing negative HIV tests. Procedure Name Priority Date/Time Associated Diagnosis Comments IMAGING - SCANNED Routine 03/17/2025 11: 59 AM EDT IMAGING - SCANNED Routine 03/17/2025 11: 58 AM EDT BRAIN C- ICOMETRIX CPT 93800 Routine 03/05/2025 4:10 PM EDT Multiple sclerosis (HCC) Cerebrovascular disease from Last 3 Months Results * Due to [place] [employer] law, this organization might not be sharing negative HIV tests. * IMAGING - SCANNED (03/17/2025 11:59 AM EDT) Only the most recent of2 resultswithin the time period is included. Anatomical Region Laterality Modality Other us Unknown Provider SCANNED PROCEDURES Final Res ult * MRI Brain WO Contrast ICOMETRIX (03/05/2025 4:10 PM EDT) Anatomical Region Laterality Modality Body, Brain Magnetic Resonan ce 03/05/2025 3:30 PM EDT Narrative 03/08/2025 11:[address] [facility] Accession Number: [id number] Patient Name: Bella Shabazz Date of : 1960 Date of Exam: 03-05-2025 Referring Physician: Kenneth Carter [facility] [address] [place] [address] Exam: MR Brain (C-) Icometrix CPT 53540, 0866T Room Description: [facility] 3.0T MRI Brain W/O Icometrix INDICATION [...] sclerosis. No evidence of progressive disease. WSN: [id number] Ordering Physician: Kenneth Carter Electronically Signed By: Danielle Larsen MD Procedure Note Provider, [place] - 03/08/2025 [facility] Accession Number: [id number] Patient Name: Bella Shabazz Date of : 1960 Date of Exam: 03-05-2025 Referring Physician: Kenneth Carter [facility] [address] [place] [address] Exam: MR Brain (C-) Icometrix CPT 96598, 0866T Room Description: [facility] 3.0T MRI Brain W/O Icometrix INDICATION [...] sclerosis. No evidence of progressive disease. WSN: [id number] Ordering Physician: Kenneth Carter Electronically Signed By: Danielle Larsen MD Kenneth Carter MD PhD IMG MRI PROCEDURES Angle l Result from Last 3 Months Insurance [facility] HILARY SMITH [id number] Care Teams Tuck Pointer Helper Relationship Specialty Start Date End Date Martin Green [address] [place] [address] PCP - General Internal Medicine 10/08/18
--- OUTSIDE RECORDS SUMMARY | 2025-05-03 19:17 | XMS_ITS | Encounter Summary ---
Author Organization [facility] Address [address] [facility] [address] [place] [address] Phone Care Team Providers Care Manager Transition Name Role Phone Noe Mccann MD Unavailable Unavailable Audra Gutierrez MD Unavailable [phone] Edouard Mosley MD Unavailable Nara Tejada MD Unavailable [phone] Jose Thomas MD Unavailable [phone] Trish Hammonds MD Unavailable [phone] Celina He DPEvelin Unavailable [phone] Elizabeth Goode MD Unavailable [phone] Martin Green MD Primary Care Provider Griselda Bello NP Primary Care Provider + [phone] Encounter Details Date Type Department Care Team (Late st Contact Info) Description 08/06/2023 Procedure Pass [facility], Ct Scan - [facility] [address] [place] [address] Social History Tobacco Use Types Packs/Day Years [...] 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[employer]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 Not on file Not on file documented as of this encounter Plan of Treatment Upcoming Encounters Date Type Department Care Team (Late st Contact Info) Description 04/28/2025 Procedure Pass Non-Invasive Cardiology [address] [place] [address] 05/12/2025 1:00 PM EST Appointment Non-Invasive Cardiology [address] [place] [address] Tano Dueñas MD [address] [place] [address], [address] [place] [address] 07/29/2025 1:00 PM EST Office Visit [facility] [address] [facility] 3rd Floor, [address] [place] [address] Minda Nelson, ESTRELLITA [address] [facility], [address] [place] [address] 08/31/2025 11:50 AM EDT Office Visit [facility] All[facility] Critical [facility] [address] [place] [address] [place] [address] Audra Gutierrez MD [address] [place] [address] 2nd [place] [address] [email or web address] documented as of this encounter Visit Diagnoses [...] as of this encounter Care Teams Manager Transition Relationship Specialty Start Date End Date Martin Green MD [address] [place] [phone] [email or web address] PCP - General Internal Medicine 05/26/23 01/25/25 Griselda Bello, GAEL [address] [place] [address] PCP - General Nurse Practitioner 01/26/25 Noe Mccann MD Ophthalmology 02/11/19 Audra Gutierrez MD [address] [place] [address] 2nd [place] [address] [email or web address] Intensive Care 02/11/19 Edouard Mosley MD [address] [place] [address], [facility] [address] [place] [address] [email or web address] Plastic and Reconstructive Surgery 02/11/19 Nara Tejada MD [address] [place] [address], [address] [place] [address] [email or web address] Consulting Provider Nephrology 02/11/19 Jose Thomas MD [address] [place] [address] [email or web address] Consulting Provider Infectious Diseases 02/11/19 Trish Hammonds MD [address] [place] [address], [address] [address] [email or web address] Rheumatology 02/11/19 Celina He DPM [address] [place] [address], [address] [place] [address] Podiatry 02/11/19 Elizabeth Goode MD [address] [facility] [address] [place] [address] Psychologist 03/27/20 documented as of this encounter Additional Source Comments The information contained in this document represents components of the legal health record. It is not the complete legal health record.[facility]
--- OUTSIDE RECORDS SUMMARY | 2025-05-03 19:17 | XMS_ITS | Encounter Summary ---
Author Organization [facility] Address [address] [facility] [address] [place] [address] Phone Care Team Providers Care Embedded Processor Name Role Phone Noe Mccann MD Unavailable Unavailable Audra Gutierrez MD Unavailable [phone] Edouard Mosley MD Unavailable Nara Tejada MD Unavailable [phone] Jose Thomas MD Unavailable [phone] Trish Hammonds MD Unavailable [phone] Celina eH DPEvelin Unavailable [phone] Elizabeth Goode MD Unavailable [phone] Martin Green MD Primary Care Provider Griselda Bello NP Primary Care Provider + [phone] Encounter Details Date Type Department Care Team (Late st Contact Info) Description 07/20/2024 Procedure Pass [facility], Ct Scan - [facility] [address] [place] [address] Social History Tobacco Use Types Packs/Day Years [...] 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 Wish to be (Past 1 Month) No 025 2:32 PM Elizabeth Doran RN 2. Non-Specific Active Suici aby Thoughts (Past 1 Month) No 07/20/2024 2:32 PM Elizabeth Doran, RN 6. Suicidal Behavior (Lifetime) No 2:32 PM Elizabeth Doran, RN documented as of this encounter Plan of Treatment Upcoming Encounters Date Type Department Care Team ([facility] st Contact Info) Description 04/28/2025 Procedure Pass Non-Invasive Cardiology [address] [place] [address] [place] [address] 05/12/2025 1:00 PM EST Appointment Non-Invasive Cardiology [address] [place] [address] [place] [address] Tano Dueñas MD [address] [place] [address] 07/29/2025 1:00 PM EST Office Visit [facility] [address] [place] [address] 3rd Floor, [address] [place] [address] Minda Nelson DNP [address] [place] [address], [address] [address] 08/31/2025 11:50 AM EDT Office Visit [facility], [facility] 10 [facility] [place] [address] Audra Gutierrez MD 10 [facility] 2nd [place] [address] documented as of this encounter Visit Diagnoses [...] documented as of this encounter Care Teams Embedded Processor Relationship Specialty Start Date End Date Martin Green MD [address] [place] [address] [email or web address] PCP - General Internal Medicine 05/26/23 01/25/25 Griselda Bello NP [address] [place] [address] PCP - General Nurse Practitioner 01/26/25 Noe Mccann MD Ophthalmology 02/11/19 Audra Gutierrez MD [address] [place] [address] 2nd [place] [address] Intensive Care 02/11/19 Edouard Mosley MD [address] [place] [address], [address] [place] [address] Plastic and Reconstructive Surgery 02/11/19 Nara Tejada MD [address] [place] [address], 3 [place] [address] Consulting Provider Nephrology 02/11/19 Jose Thomas MD [address] [place] [address] [email or web address] Consulting Provider Infectious Diseases 02/11/19 Trish Hammonds MD 22 [facility], [address] [address] Rheumatology 02/11/19 Celina He DPM [address] [place] [address] Podiatry 02/11/19 Elizabeth Goode MD [address] [place] [address] Psychologist 03/27/20 documented as of this encounter Additional Source Comments The information contained in this document represents components of the legal health record. It is not the complete legal health record.[facility]
--- OUTSIDE RECORDS SUMMARY | 2025-05-03 19:17 | XMS_ITS | Encounter Summary ---
Author Organization [facility] Address [address] [facility] [address] [place] [address] Phone Care Team Providers Care Seo Associate Name Role Phone Noe Mccann MD Unavailable Unavailable Audra Gutierrez MD Unavailable [phone] Edouard Mosley MD Unavailable Nara Tejada MD Unavailable [phone] Jose Thomas MD Unavailable [phone] Trish Hammonds MD Unavailable [phone] Celina He DPEvelin Unavailable Elizabeth Goode MD Unavailable [phone] Martin Green MD Primary Care Provider Griselda Bello NP Primary Care Provider + [phone] Encounter Details Date Type Department Care Team (Late st Contact Info) Description 05/26/2023 Procedure Pass [facility], [address] [address] Social History Tobacco Use Types Packs/Day Years [...] 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 file documented as of this encounter Functional Status * Calculated C-SSRS Risk Score (Lifetime/Recent) Answer Date of Assessment Author No Risk Indicated 05/27/2023 2:51 AM Mili Willis RN * [place] Suicide Severity Rating Scale (Screener/Recent Self-Report) Question [...] Description 04/28/2025 Procedure Pass Non-Invasive Cardiology [address] [place] [address] 05/12/2025 1:00 PM EST Appointment Non-Invasive Cardiology [address] [place] [address] Tano Dueñas MD 22 [facility], [address] [place] [address] 07/29/2025 1:00 PM EST Office Visit [facility] [address] 3rd Floor, [address] [place] [address] Minda Nelson DNP 22 [facility], [address] [place] [address] 08/31/2025 11:50 AM EDT Office Visit [facility] [address] [place] [address] Audra Gutierrez MD [address] [place] [address] documented as of this encounter Visit Diagnoses [...] documented as of this encounter Care Teams Seo Associate Relationship Specialty Start Date End Date Martin Green MD [address] [place] [address] [email or web address] PCP - General Internal Medicine 05/26/23 01/25/25 Griselda Bello, GAEL [address] [place] [address] PCP - General Nurse Practitioner 01/26/25 Noe Mccann MD Ophthalmology 02/11/19 Audra Gutierrez MD [address] [place] [address] 2nd [place] [address] Intensive Care 02/11/19 Edouard Mosley MD [address] [place] [address], [facility] [address] [place] [address] Plastic and Reconstructive Surgery 02/11/19 Nara Tejada MD [address] [place] [address], [address] [place] [address] Consulting Provider Nephrology 02/11/19 Jose Thomas MD [address] [place] [address] [email or web address] Consulting Provider Infectious Diseases 02/11/19 Trish Hammonds MD [address] [place] [address], [address] [place] [address] Rheumatology 02/11/19 Celina He DPM [address] [place] [address], [address] [place] [address] [email or web address] Podiatry 02/11/19 Elizabeth Goode MD [address] [place] [address] Psychologist 03/27/20 documented as of this encounter Additional Source Comments The information contained in this document represents components of the legal health record. It is not the complete legal health record.[facility]
--- OUTSIDE RECORDS SUMMARY | 2025-05-03 19:17 | XMS_ITS | Encounter Summary ---
Author Organization [facility] Address [address] [facility] [address] [place] [address] Phone Care Team Providers Care Safety Director Name Role Phone Olvin Harvey MD Unavailable [phone] Ema Kaufman DO Primary Care Provider Krissy Hernandez Primary Care Pro vider Martin Green MD Primary Care Provider [phone] Martin Bales MD Unavailable [phone] Jose Gallagher MD Unavailable [phone] Ramiro Schmidt MD Unavailable Enio Starkey MD Unavailable [phone] Kenneth Carter MD Unavailable Noe Mccann MD Unavailable Unavailable Audra Gutierrez MD Unavailable Edouard Mosley MD Unavailable Martin Green MD Primary Care Provider [phone] Nara Tejada MD Unavailable [phone] Jose Thomas MD Unavailable [phone] Trish Hammonds MD Unavailable Celina He DPM Unavailable Olvin Harvey MD Unavailable [phone] Fabián Seaman MD Unavailable +[phone] Elizabeth Goode MD Unavailable [phone] Martin Green MD Primary Care Provider [phone] Martin Green MD Primary Care Provider [phone] Griselda Bello NP Primary Care Provider [phone] Encounter Details Date Type Department Care Team (Late Contact Info) Description 09/21/2018 Ancillary Orders [facility] [address] [place] [address] Abi Valdez MD [address] [facility] HEAD [place] [address] [email or web address] Breast [email or web address] Social History Tobacco Use [...] 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 Not on file documented as of this encounter Plan of Treatment Upcoming Encounters Date Type Department Care Team ([facility] Contact Info) Description 04/28/2025 Procedure Pass Non-Invasive Cardiology [address] [place] [address] 05/12/2025 1:00 PM EST Appointment Non-Invasive Cardiology [address] [place] [address] Tano Dueñas MD [address] [facility], [address] [place] [address] 07/29/2025 1:00 PM EST Office Visit [facility] [address] [facility] 3rd Floor, [address] [place] [address] Minda Nelson DNP [address] [facility], [address] [place] [address] 08/31/2025 11:50 AM EDT Office [facility], Allergy and Critical Care Medicine [address] [place] [address] Audra Gutierrez MD [address] [place] [address] documented as of this encounter Results * [...] There are scattered fibroglandular densities. POS - [id number] Narrative 10/09/2018 2:42 PM EDT Full-field digital [...] There are scattered fibroglandular densities. POS - [id number] Abi Valdez MD IMG MG EXAMS Angle [...] documented as of this encounter Care Teams Safety Director Relationship Specialty Start Date End Date Ema Kaufman DO [address] [place] [address] [email or web address] PCP - General 06/12/18 09/22/18 Krissy Hernandez PA [address] [place] [address] [email or web address] PCP - General Internal Medicine 09/23/18 10/04/18 Martin Green MD [address] [place] [address] [email or web address] PCP - General Internal Medicine 10/05/18 02/10/19 Martin Green MD [address] [place] [address] [email or web address] PCP - General Internal Medicine 02/11/19 04/11/20 Martin Green MD [address] [place] [address] [email or web address] PCP - General Internal Medicine 04/12/20 05/25/23 Martin Green MD [address] [place] [address] [email or web address] PCP - General Internal Medicine 05/26/23 01/25/25 Griselda Bello NP 238 [place] [address] PCP - General Nurse Practitioner 01/26/25 Olvin Harvey MD 22 [facility] 1 [place] [address] [email or web address] Insurance Assigned Provider 04/12/17 02/10/19 Martin Bales MD [address] [place] [address] [email or web address] Gastroenterology 10/07/18 11/13/20 Jose Gallagher MD [address] [place] [address], [address] [address] [email or web address] Urology 10/07/18 11/13/20 Ramiro Schmidt MD [address] [place] [address], [address] [place] [address] [email or web address] Endocrinology 02/11/19 11/13/20 Enio Starkey MD [address] [place] [address], [address] [place] [address] [email or web address] Cardiology 02/11/19 11/13/20 Kenneth Carter MD [address] [place] [address] Neurology 02/11/19 11/13/20 Noe Mccann MD Ophthalmology 02/11/19 Audra Gutierrez MD [address] [place] [address] 2nd [place] [address] [email or web address] Intensive Care 02/11/19 Edouard Mosley MD [address] [place] [address], [address] [address] [email or web address] Plastic and Reconstructive Surgery 02/11/19 Nara Tejada MD [address] [place] [address], 3 [place] [address] [email or web address] Consulting Provider Nephrology 02/11/19 Jose Thomas MD [address] [place] [address] [email or web address] Consulting Provider Infectious Diseases 02/11/19 Trish Hammonds MD [address] [place] [address] [email or web address] Rheumatology 02/11/19 Celina He DPM [address] [place] [address], [address] [address] Podiatry 02/11/19 Olvin Harvey MD [address] [facility] Floor 1 [place] [address] [email or web address] Insurance Assigned Provider 04/12/17 03/06/19 Fabián Seaman MD [address] [facility], [address] [place] [address] [email or web address] Insurance Assigned Provider 03/06/19 07/09/19 Elizabeth Goode MD [address] [place] [address] 200 [place] [address] Psychologist 03/27/20 documented as of this encounter Additional Source Comments The information contained in this document represents components of the legal health record. It is not the complete legal health record.[facility]
--- OUTSIDE RECORDS SUMMARY | 2025-05-03 19:17 | XMS_ITS | Encounter Summary ---
Author Organization [facility] Address [address] [place] [address] [address] [place] [address] Phone Care Team Providers Care Regional Branch Manager Name Role Phone Noe Mccann MD Unavailable Unavailable Audra Gutierrez MD Unavailable [phone] Edouard Mosley MD Unavailable Nara Tejada MD Unavailable [phone] Jose Thomas MD Unavailable [phone] Trish Hammonds MD Unavailable [phone] Celina He DPM Unavailable [phone] Elizabeth Goode MD Unavailable [phone] Martin Green MD Primary Care Provider [phone] Griselda Bello NP Primary Care Provider [phone] Reason for Referral * MRI/CAT Scan - Closed Specialty Diagnoses / Procedures Referred By Contac t Referred To Contact Radiology Diagnoses Other chest pain Procedures NC Stress Result for Nuclear Stress Test Audra Gutierrez MD Phone: tel: fax: mailto:[email or web address] Referral ID Status Reason Start Date Expiration Date Visits Re quested Visits Authorized [id number] Closed 08/27/2023 1 1 Encounter Details Date Type Department Care Team (Late st Contact Info) Description 08/27/2023 Ancillary Orders [facility] Pulmonary, Allergy and Critical Care Medicine [address] [place] [address] Audra Gutierrez MD 10 [facility] 2nd [place] [address] [email or web address] Other chest pain (Primary Dx) Social History [...] 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 Not on file documented as of this encounter Plan of Treatment Upcoming Encounters Date Type Department Care Team (Late st Contact Info) Description 04/28/2025 Procedure Pass Non-Invasive Cardiology [address] [place] [address] 05/12/2025 1:00 PM EST Appointment Non-Invasive Cardiology [address] [place] [address] [place] [address] Tano Dueñas MD [address] [place] [address] 07/29/2025 1:00 PM EST Office Visit [facility] [address] [place] [address] 3rd Floor, [address] [place] [address] Minda Nelson DNP [address] [place] [address] 08/31/2025 11:50 AM EDT Office Visit [facility] [address] [place] [address] Audra Gutierrez MD [address] [place] [address] 2nd [place] [address] documented as of this encounter Results * [...] by injection of Tc99m Sestamibi by Penelope nanotechnologist. Done as a pharmacologic stress test due [...] documented as of this encounter Care Teams Regional Branch Manager Relationship Specialty Start Date End Date Martin Green MD [address] [place] [phone] [email or web address] PCP - General Internal Medicine 05/26/23 01/25/25 Griselda Bello NP [address] [place] [address] PCP - General Nurse Practitioner 01/26/25 Noe Mccann MD Ophthalmology 02/11/19 Audra Gutierrez MD [address] [place] [address] 2nd [place] [address] [email or web address] Intensive Care 02/11/19 Edouard Mosley MD [address] [place] [address], [address] [place] [address] [email or web address] Plastic and Reconstructive Surgery 02/11/19 Nara Tejada MD [address] [place] [address], [address] [place] [address] [email or web address] Consulting Provider Nephrology 02/11/19 Jose Thomas MD [address] [place] [address] [email or web address] Consulting Provider Infectious Diseases 02/11/19 Trish Hammonds MD [address] [place] [address], [address] [address] [email or web address] Rheumatology 02/11/19 Celina He DPM [address] [place] [address], [address] [address] [email or web address] Podiatry 02/11/19 Elizabeth Goode MD [address] [place] [address] Psychologist 03/27/20 documented as of this encounter Additional Source Comments The information contained in this document represents components of the legal health record. It is not the complete legal health record.[facility]
--- OUTSIDE RECORDS SUMMARY | 2025-05-03 19:17 | XMS_ITS | Encounter Summary ---
Author Organization [facility] Address [address] [facility] [address] [place] [address] Phone Care Team Providers Care Engineer Systems Name Role Phone Noe Mccann MD Unavailable Unavailable Audra Gutierrez MD Unavailable [phone] Edouard Mosley MD Unavailable Nara Tejada MD Unavailable [phone] Jose Thomas MD Unavailable [phone] Trish Hammonds MD Unavailable [phone] Celina He DPM Unavailable Elizabeth Goode MD Unavailable Griselda Bello COMBER SETTER Primary Care Provider [phone] Encounter Details Date Type Department Care Team (Latest Contact Info) Description 04/28/2025 Ancillary [facility] [address] [place] [address] 3rd Floor, [address] [place] [address] Tano Dueñas MD 22 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 Not on file documented as of this encounter Plan of Treatment Upcoming Encounters Date Type Department Care Team ([facility] st Contact Info) Description 04/28/2025 Procedure Pass Non-Invasive Cardiology [address] [place] [address] [place] [address] 05/12/2025 1:00 PM EST Appointment Non-Invasive Cardiology [address] [place] [address] [place] [address] Tano Dueñas MD [address] [place] [address] 07/29/2025 1:00 PM EST Office Visit [facility] [address] [place] [address] 3rd Floor, [address] [place] [address] Minda Nelson DNP [address] [place] [address] 08/31/2025 11:50 AM EDT Office Visit [facility], Allergy and Critical Care Medicine [address] [place] [address] Audra Gutierrez MD [address] [place] [address] Scheduled Orders Name Type Priority Associated Diagnoses Orde r Schedule EP Device Check / Follow Up Cardiac Monitors Routine Cerebrovascular accident (CVA), unspecified mechanism Other for 12 Occurrences starting 04/28/2025 until 04/28/2027 documented as of this encounter Visit Diagnoses Diagnosis Cerebrovascular accident (CVA), unspecified mechanism- Primary documented in this encounter 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 Plastic and Reconstructive Surgery 02/11/19 Nara Tejada MD [address] [place] [address], 3 [place] [address] [email or web address] Consulting Provider Nephrology 02/11/19 Jose Thomas MD [address] [place] [address] [email or web address] Consulting Provider Infectious Diseases 02/11/19 Trish Hammonds MD [address] [place] [address], [address] [address] Rheumatology 02/11/19 Celina He DPM 22 [facility], [address] [address] Podiatry 02/11/19 Elizabeth Goode MD [address] [place] [address] 200 [place] [address] Psychologist 03/27/20 documented as of this encounter Additional Source Comments The information contained in this document represents components of the legal health record. It is not the complete legal health record.[facility]
--- OUTSIDE RECORDS SUMMARY | 2025-05-03 19:17 | XMS_ITS | Encounter Summary ---
Author Organization [facility] Address [address] [place] [address] [address] [place] [address] Phone Care Team Providers Care Patient Care Director Name Role Phone Noe Mccann MD Unavailable Unavailable Audra Gutierrez MD Unavailable Edouard Mosley MD Unavailable Nara Tejada MD Unavailable [phone] Jose Thomas MD Unavailable +- [phone] Trish Hammonds MD Unavailable [phone] Celina He DPM Unavailable [phone] Elizabeth Goode MD Unavailable [phone] Martin Green MD Primary Care Provider [phone] Martin Green MD Primary Care Provider [phone] Griselda Bello NP Primary Care Provider +[phone] Encounter Details Date Type Department Care Team (Late st Contact Info) Description 04/18/2023 Telephone CD Pulmonary, Allergy and Critical Care Medicine [address] [place] [address] Katina Salazar MA [email or web address] Social History Tobacco Use Types Packs/Day Years [...] 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 Not on file documented as of this encounter Plan of Treatment Upcoming Encounters Date Type Department Care Team (Late st Contact Info) Description 04/28/2025 Procedure Pass Non-Invasive Cardiology [address] [place] [address] [place] [address] 05/12/2025 1:00 PM EST Appointment Non-Invasive Cardiology [place] [address] Tano Dueñas MD 22 [facility], [address] [address] 07/29/2025 1:00 PM EST Office Visit [facility] Peri [address] 3rd Floor, [address] [place] [address] Minda Nelson DNP [address] [place] [address], [address] [place] [address] 08/31/2025 11:50 AM EDT Office Visit [facility] Pulmonary, Allergy and Critical Care Medicine 10 [facility] [place] [address] Audra Gutierrez MD [address] [address] documented as of this encounter Visit Diagnoses [...] documented as of this encounter Care Teams Patient Care Director Relationship Specialty Start Date End Date Martin Green MD [address] [place] [address] PCP - General Internal Medicine 04/12/20 05/25/23 Martin Green MD [address] [place] [phone] [email or web address] PCP - General Internal Medicine 05/26/23 01/25/25 Griselda Bello, GAEL [address] [place] [address] PCP - General Nurse Practitioner 01/26/25 Noe Mccann MD Ophthalmology 02/11/19 Audra Gutierrez MD [address] [place] [address] 2nd [place] [address] [email or web address] Intensive Care 02/11/19 Edouard Mosley MD [address] [place] [address], [facility] [address] [place] [address] [email or web address] Plastic and Reconstructive Surgery 02/11/19 Nara Tejada MD [address] [place] [address], 3 [place] [address] [email or web address] Consulting Provider Nephrology 02/11/19 Jose Thomas MD [address] [place] [address] [email or web address] Consulting Provider Infectious Diseases 02/11/19 Trish Hammonds MD [address] [place] [address], [address] [address] [email or web address] Rheumatology 02/11/19 Celina He DPM [address] [place] [address], [address] [place] [address] Podiatry 02/11/19 Elizabeth Goode MD [address] [place] [address] Psychologist 03/27/20 documented as of this encounter Additional Source Comments The information contained in this document represents components of the legal health record. It is not the complete legal health record.[facility]
--- OUTSIDE RECORDS SUMMARY | 2025-05-03 19:17 | XMS_ITS | Encounter Summary ---
Author Organization [facility] Address [address] [facility] [address] [place] [address] Phone Care Team Providers Care Media Planner / Buyer Name Role Phone Noe Mccann MD Unavailable Unavailable Audra Gutierrez MD Unavailable Edouard Mosley MD Unavailable Nara Tejada MD Unavailable Jose Thomas MD Unavailable [phone] Trish Hammonds MD Unavailable Celina He DPM Unavailable Elizabeth Goode MD Unavailable [phone] Martin Green MD Primary Care Provider [phone] Griselda Bello NP Primary Care Provider + [phone] Encounter Details Date Type Department Care Team (Late st Contact Info) Description 12/26/2023 Procedure Pass [facility] [address] [place] [address] Social History Tobacco Use Types Packs/Day Years [...] Job Start Date Job End Date Retired [employer] Not on file Not on file Not on file documented as of this encounter Plan of Treatment Upcoming Encounters Date Type Department Care Team (Late st Contact Info) Description 04/28/2025 Procedure Pass Non-Invasive Cardiology [address] [place] [address] 05/12/2025 1:00 PM EST Appointment Non-Invasive Cardiology [address] [place] [address] Tano Dueñas MD 22 [facility], [address] [place] [address] 07/29/2025 1:00 PM EST Office Visit [facility] 22 [facility] 3rd Floor, [address] [place] [address] Minda Nelson, ESTRELLITA [address] [facility], [address] [place] [address] 08/31/2025 11:50 AM EDT Office Visit [facility] Pulmonary, Allergy and Critical Care Medicine [address] [place] [address] Audra Gutierrez MD [address] [place] [address] 2nd [place] [address] [email or web address] documented as of this encounter Visit Diagnoses [...] documented as of this encounter Care Teams Media Planner / Buyer Relationship Specialty Start Date End Date Martin Green MD [address] [place] [phone] [email or web address] PCP - General Internal Medicine 05/26/23 01/25/25 Griselda Bello, GAEL [address] [place] [address] PCP - General Nurse Practitioner 01/26/25 Noe Mccann MD Ophthalmology 02/11/19 Audra Gutierrez MD [address] [place] [address] 2nd [place] [address] [email or web address] Intensive Care 02/11/19 Edouard Mosley MD [address] [place] [address] [email or web address] Plastic and Reconstructive Surgery 02/11/19 Nara Tejada MD [address] [place] [address], 3 [place] [address] [email or web address] Consulting Provider Nephrology 02/11/19 Jose Thomas MD [address] [place] [address] [email or web address] Consulting Provider Infectious Diseases 02/11/19 Trish Hammonds MD [address] [place] [address], [address] [address] [email or web address] Rheumatology 02/11/19 Celina He DPM [address] [place] [address], [address] [address] Podiatry 02/11/19 Elizabeth Goode MD 301 [place] [address] Psychologist 03/27/20 documented as of this encounter Additional Source Comments The information contained in this document represents components of the legal health record. It is not the complete legal health record.[facility]
--- OUTSIDE RECORDS SUMMARY | 2025-05-03 19:17 | XMS_ITS | Encounter Summary ---
Author Organization [facility] Address [address] [facility] [address] [place] [address] Phone Care Team Providers Care Steam Tank Operator Name Role Phone Noe Mccann MD Unavailable Unavailable Audra Gutierrez MD Unavailable Edouard Mosley MD Unavailable Nara Tejada MD Unavailable Jose Thomas MD Unavailable [phone] Trish Hammonds MD Unavailable Celina He DPEvelin Unavailable Elizabeth Goode MD Unavailable [phone] Griselda Bello BAKELITE MOLDER Primary Care Provider [phone] Encounter Details Date Type Department Care Team (Late st Contact Info) Description 03/11/2025 Procedure Pass [facility] 30 [place] [address] Social History Tobacco Use Types Packs/Day Years [...] 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 Not on file documented as of this encounter Plan of Treatment Upcoming Encounters Date Type Department Care Team ([facility] st Contact Info) Description 04/28/2025 Procedure Pass Non-Invasive Cardiology [address] [place] [address] [place] [address] 05/12/2025 1:00 PM EST Appointment Non-Invasive Cardiology [address] [place] [address] [place] [address] Tano Dueñas MD [address] [place] [address] 07/29/2025 1:00 PM EST Office Visit [facility] [address] [place] [address] 3rd Floor, [address] [place] [address] Minda Nelson DNP [address] [place] [address], [address] [address] 08/31/2025 11:50 AM EDT Office Visit [facility] Pulmonary, Allergy and Critical Care Medicine [address] [place] [address] Audra Gutierrez MD [address] [place] [address] documented as of this encounter Visit Diagnoses [...] documented as of this encounter Care Teams Steam Tank Operator Relationship Specialty Start Date End Date rGiselda Bello NP [address] [place] [address] PCP - General Nurse Practitioner 01/26/25 Noe Mccann MD Ophthalmology 02/11/19 Audra Gutierrez MD [address] [place] [address] 2[address] [place] [address] [email or web address] Intensive Care 02/11/19 Edouard Mosley MD [address] [place] [address], [address] [place] [address] [email or web address] Plastic and Reconstructive Surgery 02/11/19 Nara Tejada MD [address] [place] [address], [address] [place] [address] [email or web address] Consulting Provider Nephrology 02/11/19 [place] [address] [place] [address] [email or web address] Consulting Provider Infectious Diseases 02/11/19 Trish Hammonds MD [address] [place] [address], [address] [place] [address] Rheumatology 02/11/19 Celina He DPM [address] [place] [address], [address] [place] [phone] [email or web address] Podiatry 02/11/19 Elizabeth Goode MD [address] [place] [address] Psychologist 03/27/20 documented as of this encounter Additional Source Comments The information contained in this document represents components of the legal health record. It is not the complete legal health record.[facility]
--- OUTSIDE RECORDS SUMMARY | 2025-05-03 19:17 | XMS_ITS | Encounter Summary ---
Author Organization [facility] Address [address] [place] [address] [address] [place] [address] Phone Care Team Providers Care Ccnp Name Role Phone Noe Mccann MD Unavailable Unavailable Audra Gutierrez MD Unavailable Edouard Mosley MD Unavailable Nara Tejada MD Unavailable [phone] Jose Thomas MD Unavailable [phone] Trish Hammonds MD Unavailable Celina He DPEvelin Unavailable Elizabeth Goode MD Unavailable [phone] Martin Green MD Primary Care Provider [phone] Griselda Bello NP Primary Care Provider + [phone] Encounter Details Date Type Department Care Team (Late st Contact Info) Description 06/06/2023 Procedure Pass [facility] [address] [place] [address] Social History Tobacco Use Types Packs/Day Years [...] 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 Not on file documented as of this encounter Plan of Treatment Upcoming Encounters Date Type Department Care Team (Late st Contact Info) Description 04/28/2025 Procedure Pass Non-Invasive Cardiology [address] [place] [address] 05/12/2025 1:00 PM EST Appointment Non-Invasive Cardiology [address] [place] [address] Tano Dueñas MD 22 [facility], [address] [place] [address] 07/29/2025 1:00 PM EST Office Visit [facility] 22 [facility] 3rd Floor, [address] [place] [address] Minda Nelson, ESTRELLITA 22 [facility], [address] [place] [address] 08/31/2025 11:50 AM EDT Office Visit [facility] Pulmonary, Allergy and Critical Care Medicine 10 [place] [address] Audra Gutierrez MD [address] [place] [address] [email or web address] documented as of this encounter Visit Diagnoses [...] documented as of this encounter Care Teams Ccnp Relationship Specialty Start Date End Date Martin Green MD [address] [place] [phone] [email or web address] PCP - General Internal Medicine 05/26/23 01/25/25 Griselda Bello NP [address] [place] [address] PCP - General Nurse Practitioner 01/26/25 Noe Mccann MD Ophthalmology 02/11/19 Audra Gutierrez MD [address] [place] [address] 2nd [place] [address] [email or web address] Intensive Care 02/11/19 Edouard Mosley MD [address] [place] [address], [address] [address] Plastic and Reconstructive Surgery 02/11/19 Nara Tejada MD [address] [place] [address], 3 [place] [address] [email or web address] Consulting Provider Nephrology 02/11/19 Jose Thomas MD [address] [place] [address] [email or web address] Consulting Provider Infectious Diseases 02/11/19 Trish Hammonds MD [address] [place] [address], [address] [address] [email or web address] Rheumatology 02/11/19 Celina He DPM [address] [place] [address], [address] [address] Podiatry 02/11/19 Elizabeth Goode MD 301 [facility] 200 [place] [address] Psychologist 03/27/20 documented as of this encounter Additional Source Comments The information contained in this document represents components of the legal health record. It is not the complete legal health record.[facility]
--- OUTSIDE RECORDS SUMMARY | 2025-05-03 19:17 | XMS_ITS | Encounter Summary ---
Author Organization [facility] Address [address] [facility] [address] [place] [address] Phone Care Team Providers Care Restaurant Hostess Name Role Phone Noe Mccann MD Unavailable Unavailable Audra Gutierrez MD Unavailable Edouard Mosley MD Unavailable Nara Tejada MD Unavailable [phone] Jose Thomas MD Unavailable [phone] Trish Hammonds MD Unavailable Celina He DPEvelin Unavailable Elizabeth Goode MD Unavailable [phone] Martin Green MD Primary Care Provider [phone] Griselda Bello NP Primary Care Provider + [phone] Encounter Details Date Type Department Care Team (Late st Contact Info) Description 06/09/2023 Procedure Pass [facility], [address] [address] Social History Tobacco Use Types Packs/Day Years [...] Job Start Date Job End Date Retired [employer] Not on file Not on file Not on file documented as of this encounter Plan of Treatment Upcoming Encounters Date Type Department Care Team (Late st Contact Info) Description 04/28/2025 Procedure Pass Non-Invasive Cardiology [address] [place] [address] 05/12/2025 1:00 PM EST Appointment Non-Invasive Cardiology [address] [place] [address] Tano Dueñas MD 22 [facility], [address] [place] [address] 07/29/2025 1:00 PM EST Office Visit [facility] [address] [facility] 3rd Floor, [address] [place] [address] Minda Nelson, ESTRELLITA [address] [facility], [address] [place] [address] 08/31/2025 11:50 AM EDT Office Visit [facility] Pulmonary, Allergy and Critical Care Medicine [address] [place] [address] [place] [address] Audra Gutierrez MD [address] [place] [address] 2nd [place] [address] [email or web address] documented as of this [...] documented as of this encounter Care Teams Restaurant Hostess Relationship Specialty Start Date End Date Martin Green MD [address] [place] [phone] [email or web address] PCP - General Internal Medicine 05/26/23 01/25/25 Griselda Bello, GAEL [address] [place] [address] PCP - General Nurse Practitioner 01/26/25 Noe Mccann MD Ophthalmology 02/11/19 Audra Gutierrez MD [address] [place] [address] 2nd [place] [address] [email or web address] Intensive Care 02/11/19 Edouard Mosley MD [address] [place] [address] 202 [place] [address] [email or web address] Plastic and Reconstructive Surgery 02/11/19 Nara Tejada MD [address] [place] [address], 3 [place] [address] [email or web address] Consulting Provider Nephrology 02/11/19 Jose Thomas MD [address] [place] [address] [email or web address] Consulting Provider Infectious Diseases 02/11/19 Trish Hammonds MD [address] [place] [address], [address] [address] [email or web address] Rheumatology 02/11/19 Celina He DPM [address] [place] [address], [address] [place] [address] Podiatry 02/11/19 Elizabeth Goode MD 301 [facility] 200 [place] [address] Psychologist 03/27/20 documented as of this encounter Additional Source Comments The information contained in this document represents components of the legal health record. It is not the complete legal health record.[facility]
--- OUTSIDE RECORDS SUMMARY | 2025-05-03 19:17 | XMS_ITS | Encounter Summary ---
Author Organization [facility] Address [address] [place] [address] [address] [place] [address] Phone Care Team Providers Care Surveyor Rod Helper Name Role Phone Noe Mccann MD Unavailable Unavailable Audra Gutierrez MD Unavailable [phone] Edouard Mosley MD Unavailable Nara Tejada MD Unavailable [phone] Jose Thomas MD Unavailable [phone] Trish Hammonds MD Unavailable [phone] Celina He DPEvelin Unavailable [phone] Elizabeth Goode MD Unavailable [phone] Martin Green MD Primary Care Provider [phone] Griselda Bello NP Primary Care Provider + [phone] Reason for Referral * MRI/CAT Scan - Closed Specialty Diagnoses / Procedures Referred By Contcaleb t Referred To Contact Radiology Diagnoses Pain Procedures CT Abdomen/Pelvis CHG CT SCAN,ABDOMENT AND PELVIS,W CONTRAST Ramiro Bal PA-C Phone: tel: fax: mailto:[email or web address] Referral ID Status Reason Start Date Expiration Date Visits Re quested Visits Authorized [id number] Closed 12/26/2023 12/26/2023 1 1 Encounter Details Date Type Department Care Team (Late st Contact Info) Description 12/26/2023 Ancillary Orders [facility] Emergency Department [address] [place] [address] Ramiro Bal PA-C [address] [place] [address] [email or web address] Pain (Primary Dx) Social History Tobacco Use [...] 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 st Contact Info) Description 04/28/2025 Procedure Pass Non-Invasive Cardiology [address] [place] [address] [place] [address] 05/12/2025 1:00 PM EST Appointment Non-Invasive Cardiology [address] [place] [address] [place] [address] Tano Dueñas MD [address] [place] [address] 07/29/2025 1:00 PM EST Office Visit [facility] [address] [place] [address] 3rd Floor, [address] [place] [address] Minda Nelson DNP [address] [place] [address], [address] [address] 08/31/2025 11:50 AM EDT Office Visit [facility] Pulmonary, Allergy and Critical Care Medicine [address] [place] [address] Audra Gutierrez MD 10 [facility] 2nd [place] [address] documented as of this encounter Results * [...] clinician's provided indication for this examination in [facility]: * Abdominal pain, hernia suspected TECHNIQUE: Multidetector-row [...] clinician's provided indication for this examination in [facility]: *Abdominal pain, hernia suspected TECHNIQUE: Multidetector-row CT [...] documented as of this encounter Care Teams Surveyor Rod Helper Relationship Specialty Start Date End Date Martin Green MD [address] [place] [address] [email or web address] PCP - General Internal Medicine 05/26/23 01/25/25 Griselda Bello NP [address] [place] [address] PCP - General Nurse Practitioner 01/26/25 Noe Mccann MD Ophthalmology 02/11/19 Audra Gutierrez MD [address] [place] [address] 2[address] [place] [address] [email or web address] Intensive Care 02/11/19 Edouard Mosley MD [address] [place] [address], [address] [place] [address] Plastic and Reconstructive Surgery 02/11/19 Nara Tejada MD [address] [place] [address], [address] [place] [address] [email or web address] Consulting Provider Nephrology 02/11/19 Jose Thomas MD [address] [place] [address] [email or web address] Consulting Provider Infectious Diseases 02/11/19 Trish Hammonds MD [address] [place] [address], [address] [place] [address] Rheumatology 02/11/19 Celina He DPM [address] [place] [address], [address] [place] [phone] Podiatry 02/11/19 Elizabeth Goode MD [address] [place] [address] Psychologist 03/27/20 documented as of this encounter Additional Source Comments The information contained in this document represents components of the legal health record. It is not the complete legal health record.[facility]
--- OUTSIDE RECORDS SUMMARY | 2025-05-03 19:17 | XMS_ITS | Encounter Summary ---
Author Organization [facility] Address [address] [place] [address] Phone Care Team Providers Care Recycler Forklift Driver Truck Driver Name Role Phone Olvin Hravey MD Unavailable [phone] Ema Kaufman DO Primary Care Provider Krissy Hernandez Primary Care Pro vider Martin Green MD Primary Care Provider [phone] Martin Bales MD Unavailable [phone] Jose Gallagher MD Unavailable [phone] Ramiro Schmidt MD Unavailable Enio Starkey MD Unavailable [phone] Kenneth Carter MD Unavailable [phone] Noe Mccann MD Unavailable Unavailable Audra Gutierrez MD Unavailable Edouard Mosley MD Unavailable Martin Green MD Primary Care Provider +[phone] Nara Tejada MD Unavailable [phone] Jose Thomas MD Unavailable [phone] Trish Hammonds MD Unavailable [phone] Celina He DPM Unavailable Olvin Harvey MD Unavailable [phone] Fabián Seaman MD Unavailable +[phone] Elizabeth Goode MD Unavailable [phone] Martin Green MD Primary Care Provider +[phone] Martin Green MD Primary Care Provider +[phone] Griselda Bello NP Primary Care Provider [phone] Encounter Details Date Type Department Care Team (Latest Contact Info) Description 09/17/2018 Transcribe Orders Virtual Department 30 [place] [address] Jose Gallagher MD [address] [place] [address], [place] [address] [email or web address] Feeling of incomplete bladder emptying (Primary Dx); [...] 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 Not on file documented as of this encounter Plan of Treatment Upcoming Encounters Date Type Department Care Team (Late st Contact Info) Description 04/28/2025 Procedure Pass Non-Invasive Cardiology [address] [place] [address] 05/12/2025 1:00 PM EST Appointment Non-Invasive Cardiology [address] [place] [address] Tano Dueñas MD [address] [facility], [address] [place] [address] 07/29/2025 1:00 PM EST Office Visit [facility] [address] [facility] 3rd Floor, [address] [place] [address] Minda Nelson DNP [address] [facility], [address] [place] [address] 08/31/2025 11:50 AM EDT Office Visit [facility], Allergy and Critical Care Medicine [address] [place] [address] [place] [address] Audra Gutierrez MD [address] [place] [address] 2nd [place] [address] documented as of this encounter Results * [...] residual POS - [id number] Jose Gallagher MD [facility] Final Result documented in this encounter [...] documented as of this encounter Care Teams Recycler Forklift Driver Truck Driver Relationship Specialty Start Date End Date Ema Kaufman DO [address] [place] [address] [email or web address] PCP - General 06/12/18 09/22/18 rKissy Hernandez PA [address] [place] [address] [email or web address] PCP - General Internal Medicine 09/23/18 10/04/18 Martin Green MD [address] [place] [address] [email or web address] PCP - General Internal Medicine 10/05/18 02/10/19 Martin Green MD [address] [place] [address] [email or web address] PCP - General Internal Medicine 02/11/19 04/11/20 Martin Green MD [address] [place] [address] [email or web address] PCP - General Internal Medicine 04/12/20 05/25/23 Martin Green MD [address] [place] [phone] [email or web address] PCP - General Internal Medicine 05/26/23 01/25/25 Griselda Bello NP [address] [place] [address] PCP - General Nurse Practitioner 01/26/25 Olvin Harvey MD 22 [facility] 1 [place] [address] [email or web address] Insurance Assigned Provider 04/12/17 02/10/19 Martin Bales MD [address] [place] [address] [email or web address] Gastroenterology 10/07/18 11/13/20 Jose Gallagher MD [address] [place] [address], [address] [place] [address] [email or web address] Urology 10/07/18 11/13/20 Ramiro Schmidt MD [address] [place] [address], [address] [place] [address] [email or web address] Endocrinology 02/11/19 11/13/20 Enio Starkey MD [address] [place] [address], [address] [place] [address] [email or web address] Cardiology 02/11/19 11/13/20 Kenneth Carter MD [address] [place] [address] Neurology 02/11/19 11/13/20 Noe Mccann MD Ophthalmology 02/11/19 Audra Gutierrez MD [address] [place] [address] 2nd [place] [address] [email or web address] Intensive Care 02/11/19 Edouard Mosley MD [address] [place] [address], [address] [place] [address] [email or web address] Plastic and Reconstructive Surgery 02/11/19 Nara Tejada MD [address] [place] [address], [address] [place] [address] [email or web address] Consulting Provider Nephrology 02/11/19 Jose Thomas MD [facility] [place] [address] [email or web address] Consulting Provider Infectious Diseases 02/11/19 Trish Hammonds MD [address] [facility], [address] [place] [address] [email or web address] Rheumatology 02/11/19 Celina He DPM [address] [facility], [address] [place] [address] [email or web address] Podiatry 02/11/19 Olvin Harvey MD [address] [facility] Floor 1 [place] [address] [email or web address] Insurance Assigned Provider 04/12/17 03/06/19 Fabián Seaman MD [address] [facility], [address] [place] [address] [email or web address] Insurance Assigned Provider 03/06/19 07/09/19 Elizabeth Goode MD [address] [place] [address] [address] [place] [address] Psychologist 03/27/20 documented as of this encounter Additional Source Comments The information contained in this document represents components of the legal health record. It is not the complete legal health record.[facility]
--- OUTSIDE RECORDS SUMMARY | 2025-05-03 19:17 | XMS_ITS | Encounter Summary ---
Author Organization [facility] Address [address] [place] [address] Phone Care Team Providers Care Water Use Inspector Name Role Phone Noe Mccann MD Unavailable Unavailable Audra Gutierrez MD Unavailable Edouard Mosley MD Unavailable Nara Tejada MD Unavailable Jose Thomas MD Unavailable [phone] Trish Hammonds MD Unavailable Celina He DPEvelin Unavailable Elizabeth Goode MD Unavailable [phone] Griselda Bello MARKETING CAMPAIGN ANALYST Primary Care Provider [phone] Encounter Details Date Type Department Care Team (Late st Contact Info) Description 03/17/2025 Procedure Pass [facility] Cardiac US [address] [place] [address] Social History Tobacco Use Types Packs/Day Years [...] 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 Not on file documented as of this encounter Functional Status * Calculated C-SSRS Risk Score (Lifetime/Recent) Answer Date of Assessment Author No Risk Indicated 03/17/2025 11:00 PM EDT Jillian Stern RN * [place] Suicide Severity Rating Scale (Screener/Recent Self-Report) Question [...] Info) Description 04/28/2025 Procedure Pass Non-Invasive Cardiology [address] [place] [address] [place] [address] 05/12/2025 1:00 PM EST Appointment Non-Invasive Cardiology [address] [place] [address] [place] [address] Tano Dueñas MD [address] [place] [address], [address] [address] 07/29/2025 1:00 PM EST Office Visit [facility] [address] [place] [address] 3rd Floor, [address] [address] Minda Nelson DNP [address] [place] [address] 08/31/2025 11:50 AM EDT Office Visit [facility] Pul[facility], Allergy and Critical Care Medicine 10 [facility] [place] [address] Audra Gutierrez MD [address] [email or web address] documented as of [...] documented as of this encounter Care Teams Water Use Inspector Relationship Specialty Start Date End Date Griselda Bello NP [address] [place] [address] PCP - General Nurse Practitioner 01/26/25 Noe Mccann MD Ophthalmology 02/11/19 Audra Gutierrez MD [address] [place] [address] [email or web address] Intensive Care 02/11/19 Edouard Mosley MD [address] [place] [address] 202 [place] [address] [email or web address] Plastic and Reconstructive Surgery 02/11/19 Nara Tejada MD [address] [place] [address], 3 [place] [address] [email or web address] Consulting Provider Nephrology 02/11/19 Jose Thomas MD [address] [place] [address] [email or web address] Consulting Provider Infectious Diseases 02/11/19 Trish Hammonds MD 22 [facility], [address] [address] [email or web address] Rheumatology 02/11/19 Celina He DPM 22 [facility], [address] [address] Podiatry 02/11/19 Elizabeth Goode MD [address] [place] [address] Psychologist 03/27/20 documented as of this encounter Additional Source Comments The information contained in this document represents components of the legal health record. It is not the complete legal health record.[facility]
--- OUTSIDE RECORDS SUMMARY | 2025-05-03 19:17 | XMS_ITS | Encounter Summary ---
Author Organization [facility] Address [address] [place] [address] Care Team Providers Care Grand Jury Deputy Sheriff Name Role Phone Martin Green Primary Care Provider Encounter Details Date Type Department Care Team (Late st Contact Info) Description 08/27/2024 TagMan Message [facility] Financial Clearance Department [address] [place] [address] Mycharecomom, Generic Provider [facility] [place] [id number] No Auth required Social History Tobacco Use [...] Description 08/25/2025 2:00 PM EDT Office Visit [facility] [address] [place] [address] Long Term Care Social Worker: Kenneth Walsh MD PhD [address] [place] [address] documented as of this encounter Visit Diagnoses Not on filedocumented in this encounter Care Teams Grand Jury Deputy Sheriff Relationship Specialty Start Date End Date Martin Green [address] [place] [phone] PCP - General Internal Medicine 10/08/18 documented as of this encounter
--- OUTSIDE RECORDS SUMMARY | 2025-05-03 19:17 | XMS_ITS | Encounter Summary ---
Author Organization [facility] Address [address] [facility] [address] [place] [address] Phone Care Team Providers Care Milk Collector Name Role Phone Noe Mccann MD Unavailable Unavailable Audra Gutierrez MD Unavailable [phone] Edouard Mosley MD Unavailable Nara Tejada MD Unavailable [phone] Jose Thomas MD Unavailable [phone] Trish Hammonds MD Unavailable Celina He DPEvelin Unavailable Elizabeth Goode MD Unavailable [phone] Martin Green MD Primary Care Provider Griselda Bello NP Primary Care Provider + [phone] Encounter Details Date Type Department Care Team (Late st Contact Info) Description 06/05/2023 Procedure Pass [facility], Ct Scan - [facility] [address] [place] [address] Social History Tobacco Use Types Packs/Day Years [...] 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 Wish to be (Past 1 Month) No 023 4:36 PM Mary Peterson RN 2. Non-Specific Active Suici aby Thoughts (Past 1 Month) No 06/05/2023 4:36 PM EST Mary Gerardo RN 6. Suicidal Behavior (Lifetime) No 4:36 PM EST Mary Gerardo RN documented as of this encounter Plan of Treatment Upcoming Encounters Date Type Department Care Team ([facility] st Contact Info) Description 04/28/2025 Procedure Pass Non-Invasive Cardiology [address] [place] [address] [place] [address] 05/12/2025 1:00 PM EST Appointment Non-Invasive Cardiology [address] [place] [address] [place] [address] Tano Dueñas MD [address] [place] [address] 07/29/2025 1:00 PM EST Office Visit [facility] [address] [place] [address] 3rd Floor, [address] [place] [address] Minda Nelson DNP [address] [place] [address], [address] [address] 08/31/2025 11:50 AM EDT Office Visit [facility] Pulmonary, Allergy and Critical Care Medicine 10 [place] [address] Audra Gutierrez MD 10 [facility] 2nd [place] [address] documented as of this encounter Visit Diagnoses Not on filedocumented in this encounter Additional Health Concerns Infection Onset Date Last Indicated Resolved Time CoV-Risk 05/29/2023 06/05/2023 06/06/2023 9:59 AM EST CoV-Risk Comment:Per note documentation 07/20/2024 07/20/2024 5:59 PM EST CoV-Risk 01/30/2025 01/30/2025 02/10/2025 1:2 1 AM EDT CDiff-Risk 03/21/2025 03/21/202503/22/2025 9:01 AM EDT CDiff-Risk 03/26/2025 03/26/2025 03/27/2025 8:59 AM EDT CDiff-Risk 04/10/2025 04/10/2025 04/10/2025 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 Assessment Noted Time PHQ-9 Depression Total Score: 20 021 1:11 PM EDT PHQ-2 Depression Total Score: 6 01/16/20 21 1:11 PM EDT documented as of this encounter Care Teams Milk Collector Relationship Specialty Start Date End Date Martin Green MD [address] [place] [address] [email or web address] PCP - General Internal Medicine 05/26/23 01/25/25 Griselda Bello NP [address] [place] [address] PCP - General Nurse Practitioner 01/26/25 Noe Mccann MD Ophthalmology 02/11/19 Audra Gutierrez MD 10 [facility] 2nd [place] [address] Intensive Care 02/11/19 Edouard Mosley MD [address] [place] [address], [address] [place] [address] Plastic and Reconstructive Surgery 02/11/19 Nara Tejada MD [address] [place] [address], [address] [place] [address] Consulting Provider Nephrology 02/11/19 Jose Thomas MD [address] [place] [address] [email or web address] Consulting Provider Infectious Diseases 02/11/19 rTish Hammonds MD 22 [facility], [address] [address] [email or web address] Rheumatology 02/11/19 Celina He DPM [address] [facility], [address] [place] [address] Podiatry 02/11/19 Elizabeth Goode MD [address] [place] [address] Psychologist 03/27/20 documented as of this encounter Additional Source Comments The information contained in this document represents components of the legal health record. It is not the complete legal health record.[facility]
--- OUTSIDE RECORDS SUMMARY | 2025-05-03 19:17 | XMS_ITS | Encounter Summary ---
Author Organization [facility] Address [address] [facility] [address] [place] [address] Phone Care Team Providers Care Coat Room Attendant Name Role Phone Olvin Harvey MD Unavailable [phone] Ema Kaufman DO Primary Care Provider Krissy Hernandez Primary Care Pro vider Martin Green MD Primary Care Provider [phone] Martin Bales MD Unavailable [phone] Jose Gallagher MD Unavailable [phone] Ramiro Schmidt MD Unavailable [phone] Enio Starkey MD Unavailable [phone] Kenneth Carter MD Unavailable Noe Mccann MD Unavailable Unavailable Audra Gutierrez MD Unavailable Eoduard Mosley MD Unavailable Martin Green MD Primary Care Provider [phone] Nara Tejada MD Unavailable [phone] Jose Thomas MD Unavailable [phone] Trish Hammonds MD Unavailable Celina He DPEvelin Unavailable [phone] Olvin Harvey MD Unavailable [phone] Fabián Seaman MD Unavailable +[phone] Elizabeth Goode MD Unavailable [phone] Martin Green MD Primary Care Provider +[phone] Martin Green MD Primary Care Provider +[phone] Griselda Bello NP Primary Care Provider [phone] Encounter Details Date Type Department Care Team (Latest Contact Info) Description 08/05/2018 Ancillary Orders Virtual Department 30 [place] [address] Elizabeth Matias PA-C 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 Not on file Not on file documented as of this encounter Plan of Treatment Upcoming Encounters Date Type Department Care Team (Late st Contact Info) Description 04/28/2025 Procedure Pass Non-Invasive Cardiology [address] [place] [address] [place] [address] 05/12/2025 1:00 PM EST Appointment Non-Invasive Cardiology [address] [place] [address] Tano Dueñas MD 22 [facility], [address] [place] [address] 07/29/2025 1:00 PM EST Office Visit [facility] [address], [address] [place] [address] Minda Nelson DNP 22 [facility], [address] [address] 08/31/2025 11:50 AM EDT Office Visit [facility] Pulmonary, Allergy and Critical Care Medicine 10 [place] [address] Audra Gutierrez MD [address] [place] [address] [email or web address] documented as of this encounter Visit Diagnoses [...] documented as of this encounter Care Teams Coat Room Attendant Relationship Specialty Start Date End Date Ema Kaufman DO [address] [place] [address] [email or web address] PCP - General 06/12/18 09/22/18 Krissy Hernandez PA [address] [place] [address] [email or web address] PCP - General Internal Medicine 09/23/18 10/04/18 Martin Green MD [address] [place] [address] [email or web address] PCP - General Internal Medicine 10/05/18 02/10/19 Martin Green MD [address] [place] [address] [email or web address] PCP - General Internal Medicine 02/11/19 04/11/20 Martin Green MD [address] [place] [address] [email or web address] PCP - General Internal Medicine 04/12/20 05/25/23 Martin Green MD [address] [place] [phone] [email or web address] PCP - General Internal Medicine 05/26/23 01/25/25 Griselda Bello NP [address] [place] [address] PCP - General Nurse Practitioner 01/26/25 Olvin Harvey MD 22 [facility] 1 [place] [address] [email or web address] Insurance Assigned Provider 04/12/17 02/10/19 Martin Bales MD [address] [place] [address] [email or web address] Gastroenterology 10/07/18 11/13/20 Jose Gallagher MD [address] [place] [address], [address] [address] [email or web address] Urology 10/07/18 11/13/20 Ramiro Schmidt MD [address] [place] [address], [address] [address] [email or web address] Endocrinology 02/11/19 11/13/20 Enio Starkey MD [address] [place] [address], [address] [address] [email or web address] Cardiology 02/11/19 11/13/20 Kenneth Carter MD [address] [place] [address] Neurology 02/11/19 11/13/20 Noe Mccann MD Ophthalmology 02/11/19 Audra Gutierrez MD [address] [place] [address] 2nd [place] [address] [email or web address] Intensive Care 02/11/19 Edouard Mosley MD [address] [place] [address] [email or web address] Plastic and Reconstructive Surgery 02/11/19 Nara Tejada MD [address] [place] [address], [address] [place] [address] [email or web address] Consulting Provider Nephrology 02/11/19 Jose Thomas MD [address] [place] [address] [email or web address] Consulting Provider Infectious Diseases 02/11/19 Trish Hammonds MD [address] [place] [address], [address] [address] [email or web address] Rheumatology 02/11/19 Celina He DPM [address] [place] [address], [address] [address] [email or web address] Podiatry 02/11/19 Olvin Harvey MD 22 [facility] Floor 1 [place] [address] [email or web address] Insurance Assigned Provider 04/12/17 03/06/19 Fabián Seaman MD [address] [facility], [address] [place] [address] [email or web address] Insurance Assigned Provider 03/06/19 07/09/19 Elizabeth Goode MD [address] [place] [address] 200 [place] [address] Psychologist 03/27/20 documented as of this encounter Additional Source Comments The information contained in this document represents components of the legal health record. It is not the complete legal health record.[facility]
--- OUTSIDE RECORDS SUMMARY | 2025-05-03 19:17 | XMS_ITS | Encounter Summary ---
Author Organization [facility] Address [address] [place] [address] [place] [address] Phone Care Team Providers Care New Product Trainer Name Role Phone Olvin Harvey MD Unavailable [phone] Martin Green MD Primary Care Provider [phone] Martin Bales MD Unavailable Jose Gallagher MD Unavailable [phone] Ramiro Schmidt MD Unavailable Enio Starkey MD Unavailable [phone] Kenneth Carter MD Unavailable Noe Mccann MD Unavailable Unavailable Audra Gutierrez MD Unavailable Edouard Mosley MD Unavailable Martin Green MD Primary Care Provider [phone] Nara Tejada MD Unavailable Jose Thomas MD Unavailable [phone] Trish Hammonds MD Unavailable Celina He DPM Unavailable Olvin Harvey MD Unavailable [phone] Fabián Seaman MD Unavailable [phone] Elizabeth Goode MD Unavailable [phone] Martin Green MD Primary Care Provider + Martin Green MD Primary Care Provider + Griselda Bello NP Primary Care Provider [phone] Encounter Details Date Type Department Care Team (Late st Contact Info) Description 10/05/2018 Procedure Pass [facility] Endoscopy Admitting Dept Virtual Department [address] [place] [address] Social History Tobacco Use Types Packs/Day Years [...] 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 Not on file documented as of this encounter Plan of Treatment Upcoming Encounters Date Type Department Care Team (Late st Contact Info) Description 04/28/2025 Procedure Pass Non-Invasive Cardiology [address] [place] [address] 05/12/2025 1:00 PM EST Appointment Non-Invasive Cardiology [address] [place] [address] [place] [address] Tano Dueñas MD [address] [place] [address], [address] [place] [address] 07/29/2025 1:00 PM EST Office Visit [facility] [address] [place] [address] 3rd Floor, [address] [place] [address] Minda Nelson, ESTRELLITA [address] [place] [address], [address] [place] [address] [email or web address] 08/31/2025 11:50 AM EDT Office Visit [facility] Pulmonary, Allergy and Critical Care Medicine 10 [facility] [place] [address] Audra Gutierrez MD 10 [facility] 2nd [place] [address] [email or web address] documented as of this encounter Visit Diagnoses [...] 1:23 AM EST CoV-Risk 05/29/2023 06/05/2023 06/06/2023 9:5 9 AM EST CoV-Risk Comment:Per note documentation 07/20/2024 07/20/2024 5:59 PM EST CoV-Risk 01/30/2025 01/30/2025 02/10/2025 1:21 AM EDT CDiff-Risk 03/21/2025 03/21/2025 03/22/2025 9:01 AM EDT CDiff-Risk 03/26/2025 03/26/2025 03/27/2025 8:59 AM EDT CDiff-Risk 04/10/2025 04/10/2025 04/10/2025 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 documented as of this encounter Care Teams New Product Trainer Relationship Specialty Start Date End Date Martin Green MD [address] [address] [email or web address] PCP - General Internal Medicine 10/05/18 02/10/19 Martin Green MD [address] [address] [email or web address] PCP - General Internal Medicine 02/11/19 04/11/20 Martin Green MD [address] [address] [email or web address] PCP - General Internal Medicine 04/12/20 05/25/23 Martin Green MD 238 [place] [address] [email or web address] PCP - General Internal Medicine 05/26/23 01/25/25 Griselda Bello NP 238 [place] [address] PCP - General Nurse Practitioner 01/26/25 Olvin Harvey MD [address] [address] [email or web address] Insurance Assigned Provider 04/12/17 02/10/19 Martin Bales MD [address] [place] [address] [email or web address] Gastroenterology 10/07/18 11/13/20 Jose Gallagher MD [address] [place] [address], [address] [place] [address] [email or web address] Urology 10/07/18 11/13/20 Ramiro Schmidt MD [address] [place] [address], [address] [place] [address] [email or web address] Endocrinology 02/11/19 11/13/20 Enio Starkey MD [address] [place] [address], [address] [place] [address] [email or web address] Cardiology 02/11/19 11/13/20 Kenneth Carter MD [address] [place] [address] Neurology 02/11/19 11/13/20 Noe Mccann MD Ophthalmology 02/11/19 Audra Gutierrez MD [address] [place] [address] 2nd [place] [address] [email or web address] Intensive Care 02/11/19 Edouard Mosley MD [address] [place] [address], [address] [place] [address] [email or web address] Plastic and Reconstructive Surgery 02/11/19 Nara Tejada MD [address] [place] [address], [address] [place] [address] [email or web address] Consulting Provider Nephrology 02/11/19 Jose Thomas MD [address] [place] [address] [email or web address] Consulting Provider Infectious Diseases 02/11/19 Trish Hammonds MD 22 [facility], [address] [place] [address] [email or web address] Rheumatology 02/11/19 Celina He DPM 22 [facility], [address] [place] [address] [email or web address] Podiatry 02/11/19 Olvin Harvey MD 22 [facility] Floor 1 [place] [address] [email or web address] Insurance Assigned Provider 04/12/17 03/06/19 Fabián Saeman MD 22 [facility], [address] [place] [address] [email or web address] Insurance Assigned Provider 03/06/19 07/09/19 Elizabeth Goode MD [address] [place] [address] [address] [place] [address] Psychologist 03/27/20 documented as of this encounter Additional Source Comments The information contained in this document represents components of the legal health record. It is not the complete legal health record.[facility]
--- OUTSIDE RECORDS SUMMARY | 2025-05-03 19:17 | XMS_ITS | Encounter Summary ---
Author Organization [facility] Address [address] [place] [address] Phone Care Team Providers Care Stitching Machine Setter Name Role Phone Noe Mccann MD Unavailable Unavailable Audra Gutierrez MD Unavailable Edouard Mosley MD Unavailable Nara Tejada MD Unavailable [phone] Jose Thomas MD Unavailable [phone] Trish Hammonds MD Unavailable [phone] Celina He DPM Unavailable [phone] Elizabeth Goode MD Unavailable Griselda Bello WEBBING WEAVER Primary Care Provider [phone] Encounter Details Date Type Department Care Team (Late st Contact Info) Description 03/21/2025 Procedure Pass [facility], Josh [address] 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 Not on file documented as of this encounter Plan of Treatment Upcoming Encounters Date Type Department Care Team ([facility] st Contact Info) Description 04/28/2025 Procedure Pass Non-Invasive Cardiology [address] [place] [address] 05/12/2025 1:00 PM EST Appointment Non-Invasive Cardiology [address] [place] [address] [place] [address] Tano Dueñas MD [address] [place] [address] 07/29/2025 1:00 PM EST Office Visit [facility] [address] [place] [address] 3rd Floor, [address] [place] [address] Minda Nelson, ESTRELLITA [address] [place] [address], [address] [address] 08/31/2025 11:50 AM EDT Office Visit [facility] Pulmonary, Allergy and Critical Care Medicine [address] [place] [address] Audra Gutierrez MD [address] [place] [address] documented as of this encounter Visit Diagnoses [...] documented as of this encounter Care Teams Stitching Machine Setter Relationship Specialty Start Date End Date Griselda Bello NP [address] [place] [address] PCP - General Nurse Practitioner 01/26/25 Noe Mccann MD Ophthalmology 02/11/19 Audra Gutierrez MD [address] [place] [address] 2nd [place] [address] [email or web address] Intensive Care 02/11/19 Edouard Mosley MD [address] [place] [address], [address] [place] [address] [email or web address] Plastic and Reconstructive Surgery 02/11/19 Nara Tejada MD [address] [place] [address], [address] [place] [address] [email or web address] Consulting Provider Nephrology 02/11/19 Jose Thomas MD [address] [place] [address] [email or web address] Consulting Provider Infectious Diseases 02/11/19 Trish Hammonds MD [address] [place] [address], [address] [place] [address] Rheumatology 02/11/19 Celina He DPM [address] [place] [address], [address] [place] [address] Podiatry 02/11/19 Elizabeth Goode MD [address] [place] [address] Psychologist 03/27/20 documented as of this encounter Additional Source Comments The information contained in this document represents components of the legal health record. It is not the complete legal health record.[facility]
--- OUTSIDE RECORDS SUMMARY | 2025-05-03 19:17 | XMS_ITS | Encounter Summary ---
Author Organization [facility] Address [address] [place] [address] [place] [address] Phone Care Team Providers Care Shochet Name Role Phone Olvin Harvey MD Unavailable [phone] Martin Green MD Primary Care Provider [phone] Martin Bales MD Unavailable Jose Gallagher MD Unavailable [phone] Ramiro Schmidt MD Unavailable Enio Starkey MD Unavailable [phone] Kenneth Carter MD Unavailable Noe Mccann MD Unavailable Unavailable Audra Gutierrez MD Unavailable Edouard Mosley MD Unavailable Martin Green MD Primary Care Provider [phone] Nara Tejada MD Unavailable Jose Thomas MD Unavailable [phone] Trish Hammonds MD Unavailable Celina He DPM Unavailable Olvin Harvey MD Unavailable [phone] Fabián Seaman MD Unavailable [phone] Elizabeth Goode MD Unavailable [phone] Martin Green MD Primary Care Provider + Martin Green MD Primary Care Provider + Griselda Bello NP Primary Care Provider [phone] Reason for Referral * MRI/CAT Scan - Closed Specialty Diagnoses / Procedures Referred By Contac t Referred To Contact Procedures CT Chest Outside (No Interpretation) System, Provider Not In, [facility] [address] [place] [address] Referral ID Status Reason Start Date Expiration Date Visits Re quested Visits Authorized [id number] Closed 12/16/2018 12/16/2019 1 1 Encounter Details Date Type Department Care Team (Late Contact Info) Description 12/16/2018 Ancillary Orders [facility],Outside Imaging [address] [place] [address] System, Provider Not In, [facility] [address] [place] [address] Social History Tobacco Use Types Packs/Day Years [...] 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 Not on file documented as of this encounter Plan of Treatment Upcoming Encounters Date Type Department Care Team (Late st Contact Info) Description 04/28/2025 Procedure Pass Non-Invasive Cardiology [address] [place] [address] 05/12/2025 1:00 PM EST Appointment Non-Invasive Cardiology [address] [place] [address] Tano Dueñas MD 22 [facility], [address] [address] 07/29/2025 1:00 PM EST Office Visit [facility] [address] 3rd Floor, [address] [place] [address] Minda Nelson DNP 22 [facility], [address] [address] 08/31/2025 11:50 AM EDT Office Visit [facility] Pulmonary, Allergy and Critical Care Medicine [address] [place] [address] Audra Gutierrez MD [address] [place] [address] documented as of this encounter Results * [...] documented as of this encounter Care Teams Shochet Relationship Specialty Start Date End Date Martin Green MD [address] [address] [email or web address] PCP - General Internal Medicine 10/05/18 02/10/19 Martin Green MD [address] [address] [email or web address] PCP - General Internal Medicine 02/11/19 04/11/20 Martin Green MD [address] [address] [email or web address] PCP - General Internal Medicine 04/12/20 05/25/23 Martin Green MD 238 [place] [address] [email or web address] PCP - General Internal Medicine 05/26/23 01/25/25 Griselda Bello NP 238 [place] [address] PCP - General Nurse Practitioner 01/26/25 Olvin Harvey MD 22 [facility] 1 [place] [address] [email or web address] Insurance Assigned Provider 04/12/17 02/10/19 Martin Bales MD [address] [place] [address] [email or web address] Gastroenterology 10/07/18 11/13/20 Jose Gallagher MD [address] [place] [address], [address] [address] [email or web address] Urology 10/07/18 11/13/20 Ramiro Schmidt MD [address] [place] [address], [address] [address] [email or web address] Endocrinology 02/11/19 11/13/20 Enoi Starkey MD [address] [place] [address], [address] [address] [email or web address] Cardiology 02/11/19 11/13/20 Kenenth Carter MD [address] [place] [address] Neurology 02/11/19 11/13/20 Noe Mccann MD Ophthalmology 02/11/19 Audra Gutierrez MD [address] [place] [address] 2nd [place] [address] [email or web address] Intensive Care 02/11/19 Edouard Mosley MD [address] [place] [address], [address] [place] [address] [email or web address] Plastic and Reconstructive Surgery 02/11/19 Nara Tejada MD [address] [place] [address], [address] [place] [address] [email or web address] Consulting Provider Nephrology 02/11/19 Jose Thomas MD [address] [place] [address] [email or web address] Consulting Provider Infectious Diseases 02/11/19 Trish Hammonds MD 22 [facility], [address] [place] [address] [email or web address] Rheumatology 02/11/19 Celina He DPM 22 [facility], [address] [place] [address] [email or web address] Podiatry 02/11/19 Olvin Harvey MD 22 [facility] Floor 1 [place] [address] [email or web address] Insurance Assigned Provider 04/12/17 03/06/19 Fabián Seaman MD [address] [place] [address], [address] [place] [address] [email or web address] Insurance Assigned Provider 03/06/19 07/09/19 Elizabeth Goode MD [address] [place] [address] 200 [place] [address] Psychologist 03/27/20 documented as of this encounter Additional Source Comments The information contained in this document represents components of the legal health record. It is not the complete legal health record.[facility]
--- OUTSIDE RECORDS SUMMARY | 2025-05-03 19:17 | XMS_ITS | Encounter Summary ---
Author Organization [facility] Address [address] [facility] [address] [place] [address] Phone Care Team Providers Care Carbon Brushes Assembler Name Role Phone Noe Mccann MD Unavailable Unavailable Audra Gutierrez MD Unavailable [phone] Edouard Mosley MD Unavailable Nara Tejada MD Unavailable Jose Thomas MD Unavailable [phone] Trish Hammonds MD Unavailable Celina He DPM Unavailable Elizabeth Goode MD Unavailable Griselda Bello CAR SEAT MAKER Primary Care Provider [phone] Encounter Details Date Type Department Care Team (Late st Contact Info) Description 03/17/2025 Procedure Pass [facility] CT, Josh [address] 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 file documented as of this encounter Functional Status * Calculated C-SSRS Risk Score (Lifetime/Recent) Answer Date of Assessment Author No Risk Indicated 03/17/2025 11:00 PM EDT Jillian Stern RN * [place] Suicide Severity Rating Scale (Screener/Recent Self-Report) Question [...] Info) Description 04/28/2025 Procedure Pass Non-Invasive Cardiology [address] [place] [address] [place] [address] 05/12/2025 1:00 PM EST Appointment Non-Invasive Cardiology [address] [address] Tano Dueñas MD [address] [place] [address], [address] [address] 07/29/2025 1:00 PM EST Office Visit [facility] [address] 3rd Floor, [address] [address] Minda Nelson DNP [address] [place] [address], [address] [address] 08/31/2025 11:50 AM EDT Office Visit [facility] Pulmonary, Allergy and Critical Care Medicine 10 [facility] [place] [address] Audra Gutierrez MD [address] [address] [email or web address] documented as of this encounter [...] documented as of this encounter Care Teams Carbon Brushes Assembler Relationship Specialty Start Date End Date Griselda Bello NP [address] [place] [address] PCP - General Nurse Practitioner 01/26/25 Noe Mccann MD Ophthalmology 02/11/19 Audra Gutierrez MD [address] [place] [address] [email or web address] Intensive Care 02/11/19 Edouard Mosley MD [address] [place] [address], [address] [place] [address] Plastic and Reconstructive Surgery 02/11/19 Nara Tejada MD NPI: [id number] [place] [address], [address] [place] [address] [email or web address] Consulting Provider Nephrology 02/11/19 Jose Thomas MD [address] [place] [address] [email or web address] Consulting Provider Infectious Diseases 02/11/19 Trish Hammonds MD 22 [facility], [address] [place] [address] Rheumatology 02/11/19 Celina He DPM 22 [facility], [address] [place] [address] Podiatry 02/11/19 Elizabeth Goode MD [address] [place] [address] Psychologist 03/27/20 documented as of this encounter Additional Source Comments The information contained in this document represents components of the legal health record. It is not the complete legal health record.[facility]
--- OUTSIDE RECORDS SUMMARY | 2025-05-03 19:17 | XMS_ITS | Encounter Summary ---
Author Organization [facility], Address [address] [place] [address] Phone Care Team Providers Care Credit Portfolio Advisor Name Role Phone Martin Green MD Primary Care Provider [phone] Encounter Details Date Type Department Care Team (Late st Contact Info) Description 10/17/2022 Documentation Only [facility], - [address] [place] [phone] Martin Green MD [address] [place] [address] Social History Tobacco Use Types Packs/Day Years [...] on filedocumented in this encounter Care Teams Credit Portfolio Advisor Relationship Specialty Start Date End Date Martin Geren MD [address] [place] [id number] PCP - General 04/13/19 documented as of this encounter
--- OUTSIDE RECORDS SUMMARY | 2025-05-03 19:18 | XMS_ITS | Encounter Summary ---
Author Organization [facility] Address [address] [facility] [address] [place] [address] Phone Care Team Providers Care Executive Administrative Assistant Name Role Phone Martin Bales MD Unavailable Jose Gallagher MD Unavailable [phone] Ramiro Schmidt MD Unavailable [phone] Enio Starkey MD Unavailable [phone] Kenneth Carter MD Unavailable Noe Mccann MD Unavailable Unavailable Audra Gutierrez MD Unavailable [phone] Edouard Mosley MD Unavailable Martin Green MD Primary Care Provider Nara Tejada MD Unavailable Jose Thomas MD Unavailable [phone] Trish Hammonds MD Unavailable Celina He DPM Unavailable [phone] Elizabeth Goode MD Unavailable Martin Green MD Primary Care Provider [phone] Martin Green MD Primary Care Provider [phone] Griselda Bello NP Primary Care Provider +- [phone] Encounter Details Date Type Department Care Team (Late st Contact Info) Description 03/26/2020 Procedure Pass [facility], Ct Scan - [address] [address] Social History Tobacco Use Types Packs/Day Years [...] 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 file documented as of this encounter Plan of Treatment Upcoming Encounters Date Type Department Care Team (Late st Contact Info) Description 04/28/2025 Procedure Pass Non-Invasive Cardiology [address] [place] [address] 05/12/2025 1:00 PM EST Appointment Non-Invasive Cardiology [address] [place] [address] [place] [address] Tano Dueñas MD [address] [place] [address] 07/29/2025 1:00 PM EST Office Visit [facility] [address] [place] [address] 3rd Floor, [address] [address] Minda Nelson DNP [address] [place] [address], [address] [address] 08/31/2025 11:50 AM EDT Office Visit [facility] [address] [place] [address] Audra Gutierrez MD 10 [facility] 2nd [place] [address] [email or web address] documented as of this encounter Visit Diagnoses [...] documented as of this encounter Care Teams Executive Administrative Assistant Relationship Specialty Start Date End Date Martin Green MD [address] [facility], [address] [place] [address] [email or web address] PCP - General Internal Medicine 02/11/19 04/11/20 Martin Green MD [address] [facility], [address] [place] [address] [email or web address] PCP - General Internal Medicine 04/12/20 05/25/23 Martin Green MD [address] [place] [phone] [email or web address] PCP - General Internal Medicine 05/26/23 01/25/25 Griselda Bello NP [address] [place] [address] PCP - General Nurse Practitioner 01/26/25 Martin Bales MD [address] [place] [address] [email or web address] Gastroenterology 10/07/18 11/13/20 Jose Gallagher MD [address] [place] [address], [address] [place] [address] [email or web address] Urology 10/07/18 11/13/20 Ramiro Schmidt MD [address] [place] [address], [address] [place] [address] [email or web address] Endocrinology 02/11/19 11/13/20 Enio Starkey MD [address] [place] [address], [address] [place] [address] [email or web address] Cardiology 02/11/19 11/13/20 Kenneth Carter MD [address] [place] [address] Neurology 02/11/19 11/13/20 Noe Mccann MD Ophthalmology 02/11/19 Audra Gutierrez MD [address] [place] [address] 2nd [place] [address] [email or web address] Intensive Care 02/11/19 Edouard Mosley MD [address] [place] [address] Plastic and Reconstructive Surgery 02/11/19 Nara Tejada MD [address] [place] [address], 3 [place] [address] Consulting Provider Nephrology 02/11/19 Jose Thomas MD [address] [place] [address] [email or web address] Consulting Provider Infectious Diseases 02/11/19 Trish Hammonds MD [address] [place] [address], [address] [address] Rheumatology 02/11/19 Celina He DPM [address] [place] [address], [address] [address] Podiatry 02/11/19 Elizabeth Goode MD 301 [facility] [address] [place] [address] Psychologist 03/27/20 documented as of this encounter Additional Source Comments The information contained in this document represents components of the legal health record. It is not the complete legal health record.[facility]
--- OUTSIDE RECORDS SUMMARY | 2025-05-03 19:18 | XMS_ITS | Encounter Summary ---
Author Organization [facility] Address [address] [facility] [address] [place] [address] Phone Care Team Providers Care Structurer Name Role Phone Martin Bales MD Unavailable Jose Gallagher MD Unavailable [phone] Ramiro Schmidt MD Unavailable Enio Starkey MD Unavailable [phone] Kenneth Carter MD Unavailable [phone] Noe Mccann MD Unavailable Unavailable Audra Gutierrez MD Unavailable Edouard Mosley MD Unavailable Martin Green MD Primary Care Provider Nara Tejada MD Unavailable [phone] Jose Thomas MD Unavailable [phone] Trish Hammonds MD Unavailable Celina He DPM Unavailable Elizabeth Goode MD Unavailable Martin Green MD Primary Care Provider +-[phone] Martin Green MD Primary Care Provider +- Griselda Bello NP Primary Care Provider +- [phone] Encounter Details Date Type Department Care Team (Late Contact Info) Description 12/17/2019 Transcribe Orders Virtual Department [address] [place] [address] Estella Griggs PA [address] [place] [address] [email or web address] [email or web address] throat (Primary Dx); Shortness of breath [...] 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 Not on file Not on file documented as of this encounter Plan of Treatment Upcoming Encounters Date Type Department Care Team (Late Contact Info) Description 04/28/2025 Procedure Pass Non-Invasive Cardiology [address] [place] [address] [place] [address] 05/12/2025 1:00 PM EST Appointment Non-Invasive [place] [address] Tano Dueñas MD 22 [facility], [address] [address] 07/29/2025 1:00 PM EST Office Visit [facility] [address] [place] [address] 3rd Floor, [address] [place] [address] Minda Nelson DNP 22 [facility], [address] [place] [address] 08/31/2025 11:50 AM EDT Office Visit [facility] 10 [facility] [place] [address] Audra Gutierrez MD 10 [facility] 2nd [place] [address] [email or web address] documented as of this encounter Results * COVID-19 PCR Order (12/20/2019 9:42 AM EDT) Specimen Source NASOPHARYNGEAL SWAB (SALES TRAINING MANAGER) [facility] COVID Testing Status Sent to [facility] Other 12/20/2019 9:42 AM EDT 12/20/2019 11:28 AM EDT Estella RICHARD [facility] GENERAL ORDERABLES Final R esult [facility] [address] [place] [address] documented in this encounter Visit Diagnoses Diagnosis [...] documented as of this encounter Care Teams Structurer Relationship Specialty Start Date End Date Martin Green MD [address] [place] [address] [email or web address] PCP - General Internal Medicine 02/11/19 04/11/20 Martin Green MD [address] [place] [address] [email or web address] PCP - General Internal Medicine 04/12/20 05/25/23 Martin Green MD [address] [place] [phone] [email or web address] PCP - General Internal Medicine 05/26/23 01/25/25 Griselda Bello NP [address] [place] [address] PCP - General Nurse Practitioner 01/26/25 Martin Bales MD [address] [place] [address] [email or web address] Gastroenterology 10/07/18 11/13/20 Jose Gallagher MD [address] [place] [address], [address] [place] [address] [email or web address] Urology 10/07/18 11/13/20 Ramiro Schmidt MD [address] [place] [address], [address] [place] [address] [email or web address] Endocrinology 02/11/19 11/13/20 Enio Starkey MD [address] [place] [address], [address] [place] [address] [email or web address] Cardiology 02/11/19 11/13/20 Kenneth Carter MD [address] [place] [address] Neurology 02/11/19 11/13/20 Noe Mccann MD Ophthalmology 02/11/19 Audra Gutierrez MD [address] [place] [address] 2nd [place] [address] [email or web address] Intensive Care 02/11/19 Edouard Mosley MD [address] [place] [address], [address] [place] [address] [email or web address] Plastic and Reconstructive Surgery 02/11/19 Nara Tejada MD [address] [place] [address], [address] [place] [address] [email or web address] Consulting Provider Nephrology 02/11/19 Jose Thomas MD [address] [place] [address] [email or web address] Consulting Provider Infectious Diseases 02/11/19 Trish Hammonds MD 22 [facility], [address] [address] [email or web address] Rheumatology 02/11/19 Celina He DPM 22 [facility], [address] [address] Podiatry 02/11/19 Elizabeth Goode MD [address] [place] [address] Psychologist 03/27/20 documented as of this encounter Additional Source Comments The information contained in this document represents components of the legal health record. It is not the complete legal health record.[facility]
--- OUTSIDE RECORDS SUMMARY | 2025-05-03 19:18 | XMS_ITS | Encounter Summary ---
Author Organization [facility] Address [address] [place] [address] [address] [place] [address] Phone Care Team Providers Care Steel Turner Name Role Phone Noe Mccann MD Unavailable Unavailable Audra Gutierrez MD Unavailable [phone] Edouard Mosley MD Unavailable Nara Tejada MD Unavailable [phone] Jose Thomas MD Unavailable + [phone] Trish Hammonds MD Unavailable [phone] Celina He DPM Unavailable [phone] Elizabeth Goode MD Unavailable [phone] Martin Green MD Primary Care Provider [phone] Martin Green MD Primary Care Provider +-[phone] Griselda Bello NP Primary Care Provider + [phone] Encounter Details Date Type Department Care Team (Late st Contact Info) Description 07/26/2022 Procedure Pass [facility], [address] [address] Social History Tobacco Use Types Packs/Day Years [...] 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 Wish to be (Past 1 Month) No 023 9:23 AM Priscila Mcadams RN 2. Non-Specific Active Suici aby Thoughts (Past 1 Month) No 07/26/2022 9:23 AM Priscila Mcadams RN 6. Suicidal Behavior (Lifetime) No 9:23 AM Prsicila Mcadams RN documented as of this encounter Plan of Treatment Upcoming Encounters Date Type Department Care Team (Late st Contact Info) Description 04/28/2025 Procedure Pass Non-Invasive Cardiology [place] [address] [place] [address] 05/12/2025 1:00 PM EST Appointment Non-Invasive Cardiology [place] [address] [place] [address] Tano Dueñas MD [address] [place] [address], [address] [address] 07/29/2025 1:00 PM EST Office Visit [facility] [address] 3rd Floor, [address] [place] [address] Minda Nelson DNP [address] [place] [address], [address] [address] 08/31/2025 11:50 AM EDT Office Visit [facility] All[facility] Critical [facility] Medicine 10 [place] [address] Audra Gutierrez MD 10 [facility] 2nd [place] [address] documented as of this encounter Visit Diagnoses [...] documented as of this encounter Care Teams Steel Turner Relationship Specialty Start Date End Date Martin Green MD [address] [place] [address] PCP - General Internal Medicine 04/12/20 05/25/23 Martin Green MD [address] [place] [phone] [email or web address] PCP - General Internal Medicine 05/26/23 01/25/25 Griselda Bello, GAEL [address] [place] [address] PCP - General Nurse Practitioner 01/26/25 Noe Mccann MD Ophthalmology 02/11/19 Audra Gutierrez MD [address] [place] [address] 2nd [place] [address] [email or web address] Intensive Care 02/11/19 Edouard Mosley MD [address] [place] [address], [facility] [address] [place] [address] [email or web address] Plastic and Reconstructive Surgery 02/11/19 Nara Tejada MD [address] [place] [address], 3 [place] [address] [email or web address] Consulting Provider Nephrology 02/11/19 Jose Thomas MD [address] [place] [address] [email or web address] Consulting Provider Infectious Diseases 02/11/19 Trish Hammonds MD [address] [place] [address], [address] [address] [email or web address] Rheumatology 02/11/19 Celina He DPM [address] [place] [address], [address] [place] [address] Podiatry 02/11/19 Elizabeth Goode MD 301 [facility] 200 [place] [address] Psychologist 03/27/20 documented as of this encounter Additional Source Comments The information contained in this document represents components of the legal health record. It is not the complete legal health record.[facility]
--- OUTSIDE RECORDS SUMMARY | 2025-05-03 19:18 | XMS_ITS | Encounter Summary ---
Author Organization [facility] Address [address] [place] [address] [address] [place] [address] Phone Care Team Providers Care Railroad Signal Technician Name Role Phone Noe Mccann MD Unavailable Unavailable Audra Gutierrez MD Unavailable [phone] Edouard Mosley MD Unavailable Nara Tejada MD Unavailable [phone] Jose Thomas MD Unavailable + [phone] Trish Hammonds MD Unavailable [phone] Celina He DPM Unavailable [phone] Elizabeth Goode MD Unavailable [phone] Martin Green MD Primary Care Provider +[phone] Martin Green MD Primary Care Provider +[phone] Griselda Bello NP Primary Care Provider + [phone] Encounter Details Date Type Department Care Team (Late st Contact Info) Description 11/14/2020 Procedure Pass [facility], Ct Scan - [facility] [address] [place] [address] Social History Tobacco Use Types Packs/Day Years [...] 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 Not on file Not on file documented as of this encounter Functional Status * Calculated C-SSRS Risk Score (Lifetime/Recent) Answer Date of Assessment Author No Risk Indicated 11/14/2020 1:07 PM EDT Dara Latham RN * [place] Suicide Severity Rating Scale (Screener/Recent Self-Report) Question [...] Description 04/28/2025 Procedure Pass Non-Invasive Cardiology [place] [address] 05/12/2025 1:00 PM EST Appointment Non-Invasive Cardiology [place] [address] Tano Dueñas MD 22 [facility], [address] [place] [address] 07/29/2025 1:00 PM EST Office Visit [facility] [address] 3rd Floor, [address] [place] [address] Minda Nelson DNP 22 [facility], [address] [place] [address] [email or web address] 08/31/2025 11:50 AM EDT Office Visit [facility], Allergy [facility] Critical Care Medicine 10 [facility] [place] [address] Audra Gutierrez MD 10 [facility] 2nd [place] [address] [email or web address] documented as of this encounter Visit Diagnoses Not on filedocumented in this encounter Additional Health Concerns Infection Onset Date Last Indicated Resolved Time 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 Infection Utility 08/05/2015 08/05/2015 07/24/2022 1:27 A M EST CoV-Exposed Comment:Positive COVID-19 05/24/2021 05/24/2021 05/26/2021 5:5 6 PM EST CoV-Risk 05/26/2021 05/26/2021 05/26/2021 5:56 PM EST COVID-19 05/26/2021 05/26/2021 06/16/2021 1:23 AM EST CoV-Risk 05/29/2023 06/05/2023 06/06/2023 9:59 AM EST CoV-Risk Comment:Per note documentation 07/20/2024 07/20/2024 5:59 PM EST CoV-Risk 01/30/2025 01/30/2025 02/10/2025 1:21 AM EDT CDiff-Risk 03/21/2025 03/21/2025 03/22/2025 9:01 AM EDT CDiff-Risk 03/26/2025 03/26/2025 03/27/2025 8:5 9 AM EDT CDiff-Risk 04/10/2025 04/10/2025 04/10/2025 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 documented as of this encounter Care Teams Railroad Signal Technician Relationship Specialty Start Date End Date Martin Green MD [address] [place] [address] [email or web address] PCP - General Internal Medicine 04/12/20 05/25/23 Martin Green MD [address] [place] [phone] [email or web address] PCP - General Internal Medicine 05/26/23 01/25/25 Griselda Bello NP [address] [place] [address] PCP - General Nurse Practitioner 01/26/25 Noe Mccann MD Ophthalmology 02/11/19 Audra Gutierrez MD [address] [place] [address] 2nd [place] [address] [email or web address] Intensive Care 02/11/19 Edouard Mosley MD [address] [place] [address], [address] [place] [address] [email or web address] Plastic and Reconstructive Surgery 02/11/19 Nara Tejada MD [address] [place] [address], [address] [place] [address] [email or web address] Consulting Provider Nephrology 02/11/19 Jose Thomas MD [address] [place] [address] [email or web address] Consulting Provider Infectious Diseases 02/11/19 Trish Hammonds MD [address] [place] [address], [address] [place] [address] Rheumatology 02/11/19 Celina He DPM [address] [place] [address], [facility] 203 [place] [address] Podiatry 02/11/19 Elizabeth Goode MD [address] [place] [address] Psychologist 03/27/20 documented as of this encounter Additional Source Comments The information contained in this document represents components of the legal health record. It is not the complete legal health record.[facility]
--- OUTSIDE RECORDS SUMMARY | 2025-05-03 19:18 | XMS_ITS | Encounter Summary ---
Author Organization [facility] Address [address] [facility] [place] [address] Phone Care Team Providers Care Media Director Name Role Phone Martin Bales MD Unavailable Jose Gallagher MD Unavailable [phone] Ramiro Schmidt MD Unavailable [phone] Enio Starkey MD Unavailable [phone] Kenneth Carter MD Unavailable [phone] Noe Mccann MD Unavailable Unavailable Audra Gutierrez MD Unavailable Edouard Mosley MD Unavailable Nara Tejada MD Unavailable [phone] Jose Thomas MD Unavailable [phone] Trish Hammonds MD Unavailable Celina He DPM Unavailable [phone] Elizabeth Goode MD Unavailable Martin Green MD Primary Care Provider [phone] Martin Green MD Primary Care Provider Griselda Bello NP Primary Care Provider [phone] Encounter Details Date Type Department Care Team (Late st Contact Info) Description 08/30/2020 Transcribe Orders Virtual Department [address] [place] [address] Martin Green MD [address] [place] [address] Encounter for laboratory testing for COVID-19 virus [...] 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 on file Not on file documented as of this encounter Plan of Treatment Upcoming Encounters Date Type Department Care Team (Late Contact Info) Description 04/28/2025 Procedure Pass Non-Invasive Cardiology [address] [place] [address] 05/12/2025 1:00 PM EST Appointment Non-Invasive Cardiology [address] [place] [address] [place] [address] Tano Dueñas MD [address] [place] [address] 07/29/2025 1:00 PM EST Office Visit [facility] [address] [place] [address] 3rd Floor, [address] [address] Minda Nelson DNP [address] [place] [address] 08/31/2025 11:50 AM EDT Office Visit [facility], Allergy [facility] Critical Care Medicine [address] [facility] [place] [address] [place] [address] Audra Gutierrez MD 10 [facility] 2nd [place] [address] [email or web address] documented as of this encounter Results * COVID-19 PCR Order (09/02/2020 7:47 AM EDT) COVID Testing Status Specimen received in analyzing lab. Results should be available within 24 to 48 hrs. [facility] Symptomatic? NO [facility] 09/02/2020 7:47 AM EDT 09/02/2020 3:24 PM EDT us Martin Green MD LAB GENERAL ORDERABLES Final Re sult Performing Organization Address City/State/[facility] Co de Phone Number [address] [address] [facility] [address] [place] [address] documented in this encounter Visit Diagnoses Diagnosis [...] 07/20/2024 07/20/2024 5:59 PM EST [facility] 01/30/2025 01/30/202502/1002/10/2025 1:21 AM EDT [facility] 03/21/2025 03/21/2025 03/22/2025 9:01 AM EDT [facility] 03/26/2025 03/26/2025 03/27/2025 8:59 AM EDT [facility] 04/10/2025 04/10/2025 04/10/2025 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 documented as of this encounter Care Teams Media Director Relationship Specialty Start Date End Date Martin Green MD [address] [place] [address] [address] [place] [address] [email or web address] PCP - General Internal Medicine 04/12/20 05/25/23 Martin Green MD [address] [place] [phone] [email or web address] PCP - General Internal Medicine 05/26/23 01/25/25 Griselda Bello NP [address] [place] [address] PCP - General Nurse Practitioner 01/26/25 Martin Bales MD [address] [place] [address] [email or web address] Gastroenterology 10/07/18 11/13/20 Jose Gallagher MD [address] [place] [address], [address] [phone] [email or web address] Urology 10/07/18 11/13/20 Ramiro Schmidt MD [address] [place] [address], [address] [address] [email or web address] Endocrinology 02/11/19 11/13/20 Enio Starkey MD [address] [facility] [place] [address] [email or web address] Cardiology 02/11/19 11/13/20 Kenneth Carter MD [address] [place] [address] Neurology 02/11/19 11/13/20 Noe Mccann MD Ophthalmology 02/11/19 Audra Gutierrez MD [address] [facility] 2nd [place] [address] [email or web address] Intensive Care 02/11/19 Edouard Mosley MD [address] [place] [address], [address] [place] [address] [email or web address] Plastic and Reconstructive Surgery 02/11/19 Nara Tejada MD [address] [place] [address], [address] [place] [address] [email or web address] Consulting Provider Nephrology 02/11/19 Jose Thomas MD [address] [place] [address] [email or web address] Consulting Provider Infectious Diseases 02/11/19 Trish Hammonds MD [address] [place] [address], [address] [place] [address] [email or web address] Rheumatology 02/11/19 Celina He DPM [address] [place] [address], [address] [place] [address] Podiatry 02/11/19 Elizabeth Goode MD [address] [place] [address] Psychologist 03/27/20 documented as of this encounter Additional Source Comments The information contained in this document represents components of the legal health record. It is not the complete legal health record.[facility]
--- OUTSIDE RECORDS SUMMARY | 2025-05-03 19:18 | XMS_ITS | Encounter Summary ---
Author Organization [facility] Address [address] [facility] [address] [place] [address] Phone Care Team Providers Care Thermal Cutting Machine Operator Name Role Phone Olvin Harvey MD Primary Care Provide r Olvin Harvey MD Unavailable [phone] Chelsy MclaughlinW Unavailable [email or web address] DO Primary Care Provider Krissy Hernandez Primary Care Pro vider Martin Green MD Primary Care Provider [phone] Martin Bales MD Unavailable Jose Gallagher MD Unavailable [phone] Ramiro Schmidt MD Unavailable [phone] Enio Starkey MD Unavailable [phone] Kenneth Carter MD Unavailable Noe Mccann MD Unavailable Unavailable Audra Gutierrez MD Unavailable Edouard Mosley MD Unavailable Martin Green MD Primary Care Provider + Nara Tejada MD Unavailable [phone] Jose Thomas MD Unavailable [phone] Trish Hammonds MD Unavailable [phone] PayamcharCelina DPM Unavailable [phone] Olvin Harvey MD Unavailable [phone] Fabián Seaman MD Unavailable [phone] Elizabeth Goode MD Unavailable [phone] Martin Green MD Primary Care Provider + Martin Green MD Primary Care Provider + Griselda Bello NP Primary Care Provider [phone] Encounter Details Date Type Department Care Team (Latest Contact Info) Description 12/02/2017 Transcribe Orders [address] [place] [address] Ramiro Schmidt MD [address] [place] [address] [email or web address] Diabetes mellitus type 2 with hyperosmolar coma, uncontrolled, unspecified whether rodent exterminator insulin use (Primary Dx); Hypercalcemia; Postsurgical hypothyroidism [...] Job Start Date Job End Date Retired [employer] Not on file Not on file Not on file documented as of this encounter Plan of Treatment Upcoming Encounters Date Type Department Care Team (Late st Contact Info) Description 04/28/2025 Procedure Pass Non-Invasive Cardiology [address] [place] [address] 05/12/2025 1:00 PM EST Appointment Non-Invasive Cardiology [address] [place] [address] Tano Dueñas MD [address] [facility], [address] [place] [phone] 07/29/2025 1:00 PM EST Office Visit [facility] [address] [facility] 3rd Floor, [address] [place] [address] Minda Nelson DNP [address] [facility], [address] [phone] 08/31/2025 11:50 AM EDT Office Visit [facility], Allergy and Critical Care Medicine 10 [place] [address] Audra Gutierrez MD [address] [facility] 2nd [place] [address] [email or web address] documented as of this encounter Results * (ABNORMAL) Magnesium (12/02/2017 1:11 PM EDT) Pathologist [facility] MAGNESIUM 1.4(L) 1.6 - 2.6 mg/dL [facility] Blood 12/02/2017 1:11 PM EDT 12/02/2017 1:19 PM EDT us Ramiro Schmidt MD LAB BLOOD BKR ORDERABLES Fi nal Result [facility] [address] [place] [address] * Vitamin A (12/02/2017 1:11 PM EDT) Pathologist [facility] VITAMIN A 74.2 32.5 - 78.0 mcg/dL [facility] Comment: (NOTE) ADDITIONAL INFORMATION This test was developed and its performance characteristics determined by [facility] in a manner consistent with CLIA requirements. This test has not been cleared or approved by the U.S. Food and Drug Administration. Blood 12/02/2017 1:11 PM EDT 12/02/2017 1:14 PM EDT Ramiro Schmidt MD LAB BLOOD ORDERABLES Final Result Performing Organization Address City/[facility]/ZIP Co de Phone Number [facility] LAB MED/[facility] [address] [address] [place] [address] * TSH (12/02/2017 1:11 PM EDT) [facility] TSH 2.39 0.27 - 4.20 uIU/mL [facility] Blood 12/02/2017 1:11 PM EDT 12/02/2017 1:19 PM EDT Ramiro Schmidt MD LAB BLOOD BKR ORDERABLES Fi nal Result Performing Organization Address [facility] Co de Phone Number [address] [address] * Parathyroid hormone (PTH) (12/02/2017 1:11 PM EDT) [facility] PARATHYROID HORMONE 21 15 - 65 pg/mL [facility] Blood 12/02/2017 1:11 PM EDT 12/02/2017 1:17 PM EDT Ramiro Schmidt MD LAB BLOOD BKR ORDERABLES Fi nal Result Performing Organization Address [facility] Co de Phone Number [address] [address] * (ABNORMAL) 25-OH vitamin D (12/02/2017 1:11 PM EDT) 25 OH VIT D (TOTAL) 28(L) 30 - 1,000 ng/mL [facility] Blood 12/02/2017 1:11 PM EDT 12/02/2017 1:19 PM EDT us Ramiro Schmidt MD LAB BLOOD BKR ORDERABLES Fi nal Result Performing Organization Address City/[facility]/ZIP Co de Phone Number [address] [address] * (ABNORMAL) Renal panel (12/02/2017 1:11 PM EDT) [facility] SODIUM 143 133 - 146 mmol/L [facility] POTASSIUM 4.6 3.3 - 5.1 mmol/L [facility] CHLORIDE 102 96 - 108 mmol/L [facility] CO2 32 21 - 35 mmol/L [facility] GLUCOSE 193(H) 70 - 99 mg/dL [facility] BUN 26(H) 6 - 19 mg/dL [facility] CREATININE 0.90 0.5 - 1.5 mg/dL [facility] CALCIUM 9.3 8.4 - 10.3 mg/dL [facility] PHOSPHORUS 3.4 2.7 - 4.5 mg/dL [facility] ALBUMIN 3.9 3.9 - 4.8 g/dL [facility] EGFR 70 >59 mL/min/1.7 3m2 [facility] Comment:If patient is black, multiply result by 1.159. Estimated glomerular filtration rate calculated using the CKD-EPI equation. ANION GAP 14 10 - 20 mmol/L [facility] Blood 12/02/2017 1:11 PM EDT 12/02/2017 1:19 PM EDT us Ramiro Schmidt MD LAB BLOOD BKR ORDERABLES Fi nal Result Performing Organization Address City/[facility]/ZIP Co de Phone Number [address] [address] * (ABNORMAL) Hemoglobin A1c (12/02/2017 1:11 PM EDT) Pathologist [facility] HEMOGLOBIN A1C 6.2(H) 4.3 - 5.8 % [facility] Blood 12/02/2017 1:11 PM EDT 12/02/2017 1:19 PM EDT us Ramiro Schmidt MD LAB BLOOD BKR ORDERABLES Fi nal Result [facility] [address] [place] [address] documented in this encounter Visit Diagnoses Diagnosis Diabetes mellitus type 2 with hyperosmolar coma, uncontrolled, unspecified whether assisted insulin use- Primary Hypercalcemia Postsurgical hypothyroidism documented [...] documented as of this encounter Care Teams Thermal Cutting Machine Operator Relationship Specialty Start Date End Date Olvin Harvey MD [address] [facility] Floor 1 [place] [address] [email or web address] PCP - General 12/07/13 06/11/18 Ema Kaufman DO [address] [place] [address] [email or web address] PCP - General 06/12/18 09/22/18 Krissy Hernandez PA [address] [place] [address] [email or web address] PCP - General Internal Medicine 09/23/18 10/04/18 Martin Green MD [address] [place] [address] [email or web address] PCP - General Internal Medicine 10/05/18 02/10/19 Martin Green MD [address] [place] [address] [email or web address] PCP - General Internal Medicine 02/11/19 04/11/20 Martin Green MD [address] [place] [address] [email or web address] PCP - General Internal Medicine 04/12/20 05/25/23 Martin Green MD [address] [place] [phone] [email or web address] PCP - General Internal Medicine 05/26/23 01/25/25 Griselda Bello NP [address] [place] [address] PCP - General Nurse Practitioner 01/26/25 Olvin Harvey MD [address] [facility] 1 [place] [address] [email or web address] Insurance Assigned Provider 04/12/17 02/10/19 Chelsy Mclaughlin [employer] FORMER [address] [address] [email or web address] Batch Operator 08/08/17 07/05/18 Martin Bales MD [address] [place] [address] [email or web address] Gastroenterology 10/07/18 11/13/20 Jose Gallagher MD [address] [place] [address], [address] [place] [address] [email or web address] Urology 10/07/18 11/13/20 Ramiro Schmidt MD [address] [place] [address], [address] [place] [address] [email or web address] Endocrinology 02/11/19 11/13/20 Enio Starkey MD [address] [place] [address], [address] [place] [address] [email or web address] Cardiology 02/11/19 11/13/20 Kenneth Carter MD [address] [place] [address] Neurology 02/11/19 11/13/20 Noe Mccann MD Ophthalmology 02/11/19 Audra Gutierrez MD [address] [place] [address] 2nd [place] [address] [email or web address] Intensive Care 02/11/19 Edouard Mosley MD [address] [place] [address], [address] [place] [address] [email or web address] Plastic and Reconstructive Surgery 02/11/19 Nara Tejada MD [address] [place] [address], [address] [place] [address] [email or web address] Consulting Provider Nephrology 02/11/19 Jose Thomas MD [address] [place] [address] [email or web address] Consulting Provider Infectious Diseases 02/11/19 Trish Hammonds MD [address] [place] [address], [address] [place] [address] [email or web address] Rheumatology 02/11/19 Celina He DPM [address] [place] [address], [address] [place] [address] Podiatry 02/11/19 Olvin Harvey MD [address] [facility] Floor 1 [place] [address] [email or web address] Insurance Assigned Provider 04/12/17 03/06/19 Fabián Seaman MD [address] [facility], [address] [place] [address] [email or web address] Insurance Assigned Provider 03/06/19 07/09/19 Elizabeth Goode MD [address] [place] [address] [address] [place] [address] Psychologist 03/27/20 documented as of this encounter Additional Source Comments The information contained in this document represents components of the legal health record. It is not the complete legal health record.[facility]
--- OUTSIDE RECORDS SUMMARY | 2025-05-03 19:18 | XMS_ITS | Encounter Summary ---
Author Organization [facility] Address [address] [facility] [address] [place] [address] Phone Care Team Providers Care Payment Manager Name Role Phone Olvin Harvey MD Primary Care Provide r Olvin Harvey MD Unavailable [phone] Chelsy MclaughlinW Unavailable [email or web address] Ema Dumas DO Primary Care Provider Krissy Hernandez Primary Care Pro vider Martin Green MD Primary Care Provider [phone] Martin Bales MD Unavailable Jose Gallagher MD Unavailable [phone] Ramiro Schmidt MD Unavailable [phone] Enio Starkey MD Unavailable [phone] Kenneth Carter MD Unavailable [phone] Noe Mccann MD Unavailable Unavailable Audra Gutierrez MD Unavailable Edouard Mosley MD Unavailable Martin Green MD Primary Care Provider + Nara Tejada MD Unavailable [phone] Jose Thomas MD Unavailable + [phone] Trish Hammonds MD Unavailable +[phone] PayamcharCelina DPM Unavailable [phone] Olvin Harvey MD Unavailable [phone] Fabián Seaman MD Unavailable +[phone] Elizabeth Goode MD Unavailable [phone] Martin Green MD Primary Care Provider + Martin Green MD Primary Care Provider +[phone] Griselda Bello LOCATION DIRECTOR Primary Care Provider +[phone] Encounter Details Date Type Department Care Team (Latest Contact Info) Description 11/04/2017 Transcribe Orders [facility] Phleb Main [address] [place] [address] Jose Gallagher MD [facility]0 [facility], [address] [place] [address] [email or web address] Dysuria (Primary Dx) Social History Tobacco [...] 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 Not on file Not on file documented as of this encounter Plan of Treatment Upcoming Encounters Date Type Department Care Team (Late st Contact Info) Description 04/28/2025 Procedure Pass Non-Invasive Cardiology [address] [place] [address] 05/12/2025 1:00 PM EST Appointment Non-Invasive Cardiology [address] [place] [address] Tano Dueñas MD 22 [facility], [address] [place] [address] 07/29/2025 1:00 PM EST Office Visit [facility] [address] 3rd Floor, [address] [place] [address] Minda Nelson, ESTRELLITA [address] [facility], [address] [place] [address] 08/31/2025 11:50 AM EDT Office Visit [facility] Pul[facility], Allergy and Critical Care Medicine [address] [place] [address] [place] [address] Audra Gutierrez MD [address] [place] [address] 2nd [place] [address] [email or web address] documented as of this encounter Procedures Procedure Name Priority Date/Time Associated Diagnosis Comments URINE CULTURE Routine 11/04/2017 7:44 AM EDT Dysuria documented in this encounter Results * (ABNORMAL) Urinalysis with sediment (11/07/2017 2:00 PM EDT) WBC 0-4(A) NONE SEEN /hpf [facility] RBC 0-2(A) NONE SEEN /hpf [facility] URINE EPITHELIAL 0-4(A) NONE SEEN [facility] MUCUS 1+(A) NONE SEEN /hpf [facility] BACTERIA Trace(A) NONE SEEN [facility] CRYSTALS 2+ [facility] Comment:AMORPHOUS COLOR Yellow Yellow [facility] CLARITY Clear [facility] GLUCOSE Trace(A) Negative [facility] BILI Negative Negative [facility] KETONES Negative Negative [facility] SPECIFIC GRAVITY 1.015 1.005 - 1.030 [facility] BLOOD Negative Negative [facility] PH 7.0 5.0 - 8.0 [facility] Protein-UA Negative Negative [facility] NITRITE Negative Negative [facility] Leukocyte esterase, ur Negative Negative [facility] Urine (Urine) 11/07/2017 2:0 0 PM EDT 11/07/2017 4:25 PM EDT Jose Gallagher MD LAB URINE ORDERABLES Final Res ult Performing Organization Address [facility] Co de Phone Number [address] [address] * Urine culture (11/04/2017 7:44 AM EDT) Specimen Source/ Description URINE URINE URINE [facility] Special Requests None [facility] GRAM STAIN Rare GRAM POSITIVE RODS [facility] Culture/Test >100,000 colony forming units per ml MIXED IVAN (3 OR MORE COLONY TYPES) Culture indicates contamination . Please resubmit if necessary. [facility] Report Status 11/05/2017 FINAL [facility] Urine (Urine) 11/04/2017 7:4 4 AM EDT 11/04/2017 7:52 AM EDT Jose Gallagher MD LAB MICROBIOLOGY CULTURE ORDER DARY Final Result Performing Organization Address [facility] de Phone Number [address] [address] documented in this encounter Visit Diagnoses Diagnosis [...] documented as of this encounter Care Teams Payment Manager Relationship Specialty Start Date End Date Olvin Harvey MD [address] [address] [email or web address] PCP - General 12/07/13 06/11/18 Ema Kaufman DO [address] [place] [address] [email or web address] PCP - General 06/12/18 09/22/18 Krissy Hernandez PA [address] [place] [address] [email or web address] PCP - General Internal Medicine 09/23/18 10/04/18 Martin Green MD [address] [place] [address] [email or web address] PCP - General Internal Medicine 10/05/18 02/10/19 Martin Green MD [address] [place] [address] [email or web address] PCP - General Internal Medicine 02/11/19 04/11/20 Martin Green MD [address] [place] [address] [email or web address] PCP - General Internal Medicine 04/12/20 05/25/23 Martin Green MD [address] [place] [phone] [email or web address] PCP - General Internal Medicine 05/26/23 01/25/25 Griselda Bello NP [address] [place] [address] PCP - General Nurse Practitioner 01/26/25 Olvin Harvey MD 22 [facility] 1 [place] [address] [email or web address] Insurance Assigned Provider 04/12/17 02/10/19 Chelsy Mclaughlin LCSW 22 [facility] 1 [place] [address] [email or web address] Database Developer 08/08/17 07/05/18 Martin Bales MD [address] [place] [address] [email or web address] Gastroenterology 10/07/18 11/13/20 Jose Gallagher MD [address] [place] [address], [address] [place] [address] [email or web address] Urology 10/07/18 11/13/20 Ramiro Schmidt MD [address] [place] [address], [address] [place] [address] [email or web address] Endocrinology 02/11/19 11/13/20 Enio Starkey MD [address] [place] [address], [address] [place] [address] [email or web address] Cardiology 02/11/19 11/13/20 Kenneth Carter MD [address] [place] [address] Neurology 02/11/19 11/13/20 Noe Mccann MD Ophthalmology 02/11/19 Audra Gutierrez MD [address] [place] [address] 2nd [place] [address] [email or web address] Intensive Care 02/11/19 Edouard Mosley MD [address] [place] [address], [address] [place] [address] [email or web address] Plastic and Reconstructive Surgery 02/11/19 Nara Tejada MD [address] [place] [address], [address] [place] [address] [email or web address] Consulting Provider Nephrology 02/11/19 Jose Thomas MD [address] [place] [address] [email or web address] Consulting Provider Infectious Diseases 02/11/19 Trish Hammonds MD [address] [facility], [address] [place] [address] [email or web address] Rheumatology 02/11/19 Celina He DPM [address] [facility], [address] [place] [address] [email or web address] Podiatry 02/11/19 Olvin Harvey MD [address] [facility] Floor 1 [place] [address] [email or web address] Insurance Assigned Provider 04/12/17 03/06/19 Fabián Seaman MD [address] [facility], [address] [place] [address] [email or web address] Insurance Assigned Provider 03/06/19 07/09/19 Elizabeth Goode MD [address] [place] [address] [address] [place] [address] Psychologist 03/27/20 documented as of this encounter Additional Source Comments The information contained in this document represents components of the legal health record. It is not the complete legal health record.[facility]
--- OUTSIDE RECORDS SUMMARY | 2025-05-03 19:18 | XMS_ITS | Encounter Summary ---
Author Organization [facility] Address [address] [place] [address] [address] [place] [address] Phone Care Team Providers Care Napper Fixer Name Role Phone Noe Mccann MD Unavailable Unavailable Audra Gutierrez MD Unavailable [phone] Edouard Mosley MD Unavailable Nara Tejada MD Unavailable [phone] Jose Thomas MD Unavailable + [phone] Trish Hammonds MD Unavailable [phone] Celina He DPM Unavailable [phone] Elizabeth Goode MD Unavailable [phone] Martin Green MD Primary Care Provider [phone] Martin Green MD Primary Care Provider [phone] Griselda Bello NP Primary Care Provider + [phone] Encounter Details Date Type Department Care Team (Late st Contact Info) Description 07/26/2022 Procedure Pass [facility], [address] [address] Social History Tobacco Use Types Packs/Day Years [...] 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 Not on file documented as of this encounter Functional Status * Calculated C-SSRS Risk Score (Lifetime/Recent) Answer Date of Assessment Author No Risk Indicated 07/26/2022 9:23 AM Priscila Mcadams RN * [place] Suicide Severity Rating Scale (Screener/Recent Self-Report) Question [...] Procedure Pass Non-Invasive Cardiology [place] [address] [place] [address] 05/12/2025 1:00 PM EST Appointment Non-Invasive Cardiology [place] [address] [place] [address] Tano Dueñas MD [address] [place] [address], [address] [address] 07/29/2025 1:00 PM EST Office Visit [facility] [address] 3rd Floor, [address] [place] [address] Minda Nelson DNP [address] [place] [address], [address] [address] 08/31/2025 11:50 AM EDT Office Visit [facility] Pulmonary, Allergy and Critical Care Medicine 10 [place] [address] Audra Gutierrez MD 10 [facility] 2nd [place] [address] documented as of this encounter Visit Diagnoses [...] documented as of this encounter Care Teams Napper Fixer Relationship Specialty Start Date End Date Martin Green MD [address] [place] [address] PCP - General Internal Medicine 04/12/20 05/25/23 Martin Green MD [address] [place] [phone] [email or web address] PCP - General Internal Medicine 05/26/23 01/25/25 Griselda Bello, GAEL [address] [place] [address] PCP - General Nurse Practitioner 01/26/25 Noe Mccann MD Ophthalmology 02/11/19 Audra Gutierrez MD [address] [place] [address] 2nd [place] [address] [email or web address] Intensive Care 02/11/19 Edouard Mosley MD [address] [place] [address], [facility] [address] [place] [address] [email or web address] Plastic and Reconstructive Surgery 02/11/19 Nara Tejada MD [address] [place] [address], 3 [place] [address] [email or web address] Consulting Provider Nephrology 02/11/19 Jose Thomas MD [address] [place] [address] [email or web address] Consulting Provider Infectious Diseases 02/11/19 Trish Hammonds MD [address] [place] [address], [address] [address] [email or web address] Rheumatology 02/11/19 Celina He DPM [address] [place] [address], [address] [place] [address] Podiatry 02/11/19 Elizabeth Goode MD 301 [facility] 200 [place] [address] Psychologist 03/27/20 documented as of this encounter Additional Source Comments The information contained in this document represents components of the legal health record. It is not the complete legal health record.[facility]
--- OUTSIDE RECORDS SUMMARY | 2025-05-03 19:18 | XMS_ITS | Encounter Summary ---
Author Organization [facility] Address [address] [facility] [address] [place] [address] Phone Care Team Providers Care Alliance Director Name Role Phone Martin Bales MD Unavailable Jose Gallagher MD Unavailable [phone] Ramiro Schmidt MD Unavailable [phone] Enio Starkey MD Unavailable [phone] Kenneth Carter MD Unavailable [phone] Noe Mccann MD Unavailable Unavailable Audra Gutierrez MD Unavailable [phone] Edouard Mosley MD Unavailable Nara Tejada MD Unavailable Jose Thomsa MD Unavailable [phone] Trish Hammonds MD Unavailable Celina He DPM Unavailable Elizabeth Goode MD Unavailable Martin Green MD Primary Care Provider [phone] Martin Green MD Primary Care Provider Griselda Bello NP Primary Care Provider [phone] Encounter Details Date Type Department Care Team (Late Contact Info) Description 05/15/2020 Transcribe Orders [facility] Phleb Main [address] [place] [address] Lucie Lakhani NP [address] [place] [address] [email or web address] Mixed hyperlipidemia (Primary Dx); Type 2 diabetes mellitus with hyperglycemia, unspecified whether rn call center insulin use; Multiple sclerosis; Essential hypertension Social [...] 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, [address] [address] 07/29/2025 1:00 PM EST Office Visit [facility] [address] 3[address] Floor, [address] [place] [address] Minda Nelson DNP 22 [facility], [address] [place] [address] 08/31/2025 11:50 AM EDT Office Visit [facility] Pulmonary, Allergy and Critical Care Medicine 10 [place] [address] Audra Gutierrez MD 10 [facility] 2nd [place] [address] [email or web address] documented as of this encounter Results * Iron (05/15/2020 10:15 AM EST) IRON 62 30 - 160 ug/dL [facility] Blood 05/15/2020 10:1 5 AM EST 05/15/2020 10:20 AM EST Lucie Lakhani CAREER CONSULTANT LAB BLOOD ORDERABLES Final Res ult Performing Organization Address City/[facility]/ZIP Co de Phone Number [address] [address] * Vitamin B12 (05/15/2020 10:15 AM EST) VITAMIN B12 809 232 - 1,245 pg/mL [facility] Blood 05/15/2020 10:1 5 AM EST 05/15/2020 10:20 AM EST us Lucie Lakhani CAREER CONSULTANT LAB BLOOD BKR ORDERABLES Final Result Performing Organization Address [facility]/ZIP Co de Phone Number [address] [address] * (ABNORMAL) TSH (05/15/2020 10:15 AM EST) TSH 6.72(H) 0.27 - 4.20 uIU/mL [facility] Blood 05/15/2020 10:1 5 AM EST 05/15/2020 10:20 AM EST Lucie Lakhani CAREER CONSULTANT LAB BLOOD BKR ORDERABLES Final Result [facility] 30 [place] [address] documented in this encounter Visit Diagnoses Diagnosis Mixed hyperlipidemia- Primary Type 2 diabetes mellitus with hyperglycemia, unspecified whether half-way insulin use Multiple sclerosis Essential hypertension Unspecified [...] documented as of this encounter Care Teams Alliance Director Relationship Specialty Start Date End Date Martin Green MD [address] [place] [address] PCP - General Internal Medicine 04/12/20 05/25/23 Martin Green MD [address] [place] [phone] [email or web address] PCP - General Internal Medicine 05/26/23 01/25/25 Griselda Bello NP [address] [place] [address] PCP - General Nurse Practitioner 01/26/25 Martin Bales MD [address] [place] [address] [email or web address] Gastroenterology 10/07/18 11/13/20 Jose Gallagher MD [address] [place] [address], [address] [address] [email or web address] Urology 10/07/18 11/13/20 Ramiro Schmidt MD [address] [place] [address], [address] [address] [email or web address] Endocrinology 02/11/19 11/13/20 Enio Starkey MD [address] [place] [address], [address] [place] [address] [email or web address] Cardiology 02/11/19 11/13/20 Kenneth Carter MD [address] [address] Neurology 02/11/19 11/13/20 Noe Mccann MD Ophthalmology 02/11/19 Audra Gutierrez MD 10 [facility] 2nd [place] [address] [email or web address] Intensive Care 02/11/19 Edouard Mosley MD [address] [place] [address], [address] [place] [address] [email or web address] Plastic and Reconstructive Surgery 02/11/19 Nara Tejada MD [address] [place] [address], [address] [place] [address] [email or web address] Consulting Provider Nephrology 02/11/19 Jose Thomas MD [address] [place] [address] [email or web address] Consulting Provider Infectious Diseases 02/11/19 Trish Hammonds MD [address] [place] [address], [facility] 203 [place] [address] [email or web address] Rheumatology 02/11/19 Celina He DPM [address] [place] [address], [facility] 203 [place] [address] [email or web address] Podiatry 02/11/19 Elizabeth Goode MD [address] [place] [address] Psychologist 03/27/20 documented as of this encounter Additional Source Comments The information contained in this document represents components of the legal health record. It is not the complete legal health record.[facility]
--- OUTSIDE RECORDS SUMMARY | 2025-05-03 19:18 | XMS_ITS | Encounter Summary ---
Author Organization [facility] Address [address] [place] [address] [address] [place] [address] Phone Care Team Providers Care Solutions Architect Name Role Phone Noe Mccann MD Unavailable Unavailable Audra Gutierrez MD Unavailable [phone] Edouard Mosley MD Unavailable Nara Tejada MD Unavailable [phone] Jose Thomas MD Unavailable + [phone] Trish Hammonds MD Unavailable [phone] Celina He DPM Unavailable [phone] Elizabeth Goode MD Unavailable [phone] Martin Green MD Primary Care Provider + Martin Green MD Primary Care Provider + Griselda Bello NP Primary Care Provider + [phone] Encounter Details Date Type Department Care Team (Late st Contact Info) Description 02/23/2021 Ancillary Orders [facility],Outside Imaging [address] [place], [place] [id number] System, Provider Not In, [place] [address] Social History Tobacco Use Types Packs/Day Years [...] 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 Not on file documented as of this encounter Plan of Treatment Upcoming Encounters Date Type Department Care Team ([facility] st Contact Info) Description 04/28/2025 Procedure Pass Non-Invasive Cardiology [address] [place] [address] [place] [address] 05/12/2025 1:00 PM EST Appointment Non-Invasive Cardiology [address] [place] [address] [place] [address] Tano Dueñas MD [address] [place] [address] 07/29/2025 1:00 PM EST Office Visit [facility] [address] [place] [address] 3rd Floor, [address] [place] [address] Minda Nelson DNP [address] [place] [address] 08/31/2025 11:50 AM EDT Office Visit [facility] Pulmonary, Allergy and Critical Care Medicine [address] [place] [address] [place] [address] Audra Gutierrez MD [address] [place] [address] 2nd [place] [address] documented as of this encounter Results * [...] documented as of this encounter Care Teams Solutions Architect Relationship Specialty Start Date End Date Martin Green MD [address] [place] [address] [email or web address] PCP - General Internal Medicine 04/12/20 05/25/23 Martin Green MD [address] [place] [address] [email or web address] PCP - General Internal Medicine 05/26/23 01/25/25 Griselda Bello, GAEL [address] [place] [address] PCP - General Nurse Practitioner 01/26/25 Noe Mccann MD Ophthalmology 02/11/19 Audra Gutierrez MD [address] [place] [address] 2[address] [place] [address] [email or web address] Intensive Care 02/11/19 Edouard Mosley MD [address] [place] [address], [address] [place] [address] [email or web address] Plastic and Reconstructive Surgery 02/11/19 Nara Tejada MD [address] [place] [address], [address] [place] [address] [email or web address] Consulting Provider Nephrology 02/11/19 Jose Thomas MD [address] [place] [address] [email or web address] Consulting Provider Infectious Diseases 02/11/19 Trish Hammonds MD [address] [place] [address], [address] [place] [address] Rheumatology 02/11/19 Celina He DPM [address] [place] [address], [address] [place] [address] Podiatry 02/11/19 Elizabeth Goode MD [address] [place] [address] Psychologist 03/27/20 documented as of this encounter Additional Source Comments The information contained in this document represents components of the legal health record. It is not the complete legal health record.[facility]
--- OUTSIDE RECORDS SUMMARY | 2025-05-03 19:18 | XMS_ITS | Encounter Summary ---
Author Organization [facility] Address [address] [place] [address] [address] [place] [address] Phone Care Team Providers Care Dry Transfer Worker Name Role Phone Noe Mccann MD Unavailable Unavailable Audra Gutierrez MD Unavailable [phone] Edouard Mosley MD Unavailable Nara Tejada MD Unavailable +[phone] Jose Thomas MD Unavailable + [phone] Trish Hammonds MD Unavailable +[phone] Celina He DPM Unavailable +[phone] Elizabeth Goode MD Unavailable [phone] Martin Green MD Primary Care Provider +[phone] Martin Green MD Primary Care Provider +-[phone] Griselda Bello NP Primary Care Provider + [phone] Encounter Details Date Type Department Care Team (Late st Contact Info) Description 07/26/2022 Procedure Pass [facility], [address] [address] Social History Tobacco Use Types Packs/Day Years [...] 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 Not on file documented as of this encounter Functional Status * Calculated C-SSRS Risk Score (Lifetime/Recent) Answer Date of Assessment Author No Risk Indicated 07/26/2022 9:23 AM Priscila Mcadams RN * [place] Suicide Severity Rating Scale (Screener/Recent Self-Report) Question [...] Procedure Pass [facility]-Invasive Cardiology [place] [address] [address] 05/12/2025 1:00 PM EST Appointment Non-Invasive Cardiology [place] [address] [place] [address] Tano Dueñas MD [address] [place] [address], [address] [address] 07/29/2025 1:00 PM EST Office Visit [facility] [address] 3rd Floor, [address] [place] [address] Minda Nelson DNP [address] [place] [address], [address] [address] 08/31/2025 11:50 AM EDT Office Visit [facility] 10 [place] [address] Audra Gutierrez MD 10 [facility] 2nd [place] [address] documented as of this encounter Visit Diagnoses [...] documented as of this encounter Care Teams Dry Transfer Worker Relationship Specialty Start Date End Date Martin Green MD [address] [place] [address] PCP - General Internal Medicine 04/12/20 05/25/23 Martin Green MD [address] [place] [phone] [email or web address] PCP - General Internal Medicine 05/26/23 01/25/25 Griselda Bello, GAEL [address] [place] [address] PCP - General Nurse Practitioner 01/26/25 Noe Mccann MD Ophthalmology 02/11/19 Audra Gutierrez MD [address] [place] [address] 2nd [place] [address] [email or web address] Intensive Care 02/11/19 Edouard Mosley MD [address] [place] [address], [facility] 202 [place] [address] [email or web address] Plastic and Reconstructive Surgery 02/11/19 Nara Tejada MD [address] [place] [address], 3 [place] [address] [email or web address] Consulting Provider Nephrology 02/11/19 Jose Thomas MD [address] [place] [address] [email or web address] Consulting Provider Infectious Diseases 02/11/19 Trish Hammonds MD [address] [place] [address], [address] [address] [email or web address] Rheumatology 02/11/19 Celina He DPM [address] [place] [address], [address] [place] [address] Podiatry 02/11/19 Elizabeth Goode MD 301 [facility] 200 [place] [address] Psychologist 03/27/20 documented as of this encounter Additional Source Comments The information contained in this document represents components of the legal health record. It is not the complete legal health record.[facility]
--- OUTSIDE RECORDS SUMMARY | 2025-05-03 19:18 | XMS_ITS | Encounter Summary ---
Author Organization [facility] Address [address] [facility] [address] [place] [address] Phone Care Team Providers Care Automatic Riveting Machine Operator Name Role Phone Olvin Harvey MD Primary Care Provide r Olvin Harvey MD Unavailable [phone] Chelsy MclaughlinW Unavailable [email or web address] Ema Dumas DO Primary Care Provider Krissy Hernandez Primary Care Pro vider Martin Green MD Primary Care Provider [phone] Martin Bales MD Unavailable Jose Gallagher MD Unavailable Ramiro Schmidt MD Unavailable Enio Starkey MD Unavailable [phone] Kenneth Carter MD Unavailable [phone] Noe Mccann MD Unavailable Unavailable Audra Gutierrez MD Unavailable [phone] Edouard Mosley MD Unavailable Martin Grene MD Primary Care Provider + Nara Tejada MD Unavailable +[phone] Jose Thomas MD Unavailable + [phone] Trish Hammonds MD Unavailable +- [phone] AmandoJoan [email or web address] Janie DPEvelin Unavailable +- [phone] Olvin Harvey MD Unavailable [phone] Fabián Seaman MD Unavailable +[phone] Elizabeth Goode MD Unavailable +[phone] Martin Green MD Primary Care Provider + Martin Green MD Primary Care Provider +[phone] Griselda Bello NP Primary Care Provider +[phone] Encounter Details Date Type Department Care Team (Late st Contact Info) Description 11/14/2017 Procedure Pass [facility], [address] [address] Social History Tobacco Use Types Packs/Day Years [...] 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 file documented as of this encounter Plan of Treatment Upcoming Encounters Date Type Department Care Team (Late st Contact Info) Description 04/28/2025 Procedure Pass Non-Invasive Cardiology [address] [place] [address] 05/12/2025 1:00 PM EST Appointment Non-Invasive Cardiology [address] [place] [address] [place] [address] Tano Dueñas MD [address] [place] [address] [address] 07/29/2025 1:00 PM EST Office Visit [facility] [address] [place] [address] 3rd Floor, [address] [place] [address] Minda Nelson DNP 22 [facility], [address] [place] [address] 08/31/2025 11:50 AM EDT Office Visit [facility] Allergy [facility] Critical [facility] 10 [place] [address] Audra Gutierrez MD [address] [place] [address] documented as of this encounter Visit Diagnoses [...] documented as of this encounter Care Teams Automatic Riveting Machine Operator Relationship Specialty Start Date End Date Olvin Harvey MD 22 [facility] 1 [place] [address] [email or web address] PCP - General 12/07/13 06/11/18 Ema Kaufman DO [address] [place] [address] [email or web address] PCP - General 06/12/18 09/22/18 Krissy Hernandez PA [address] [place] [address] [email or web address] PCP - General Internal Medicine 09/23/18 10/04/18 Martin Green MD [address] [place] [address] [email or web address] PCP - General Internal Medicine 10/05/18 02/10/19 Martin Green MD [address] [place] [address] [email or web address] PCP - General Internal Medicine 02/11/19 04/11/20 Martin Green MD 238 [place] [address] [email or web address] PCP - General Internal Medicine 04/12/20 05/25/23 Martin Green MD [address] [place] [phone] [email or web address] PCP - General Internal Medicine 05/26/23 01/25/25 Griselda Bello NP 238 [place] [address] PCP - General Nurse Practitioner 01/26/25 Olvin Harvey MD 22 [facility] 1 [place] [address] [email or web address] Insurance Assigned Provider 04/12/17 02/10/19 Chelsy Mclaughlin, [facility] 22 [facility] 1 [place] [address] [email or web address] Route Sales Driver 08/08/17 07/05/18 Martin Bales MD [address] [place] [address] [email or web address] Gastroenterology 10/07/18 11/13/20 Jose Gallagher MD [address] [place] [address], [address] [place] [address] [email or web address] Urology 10/07/18 11/13/20 Ramiro Schmidt MD [address] [place] [address], [address] [place] [address] [email or web address] Endocrinology 02/11/19 11/13/20 [place] [address] [place] [address], [address] [place] [address] [email or web address] Cardiology 02/11/19 11/13/20 Kenneth Carter MD [address] [place] [address] Neurology 02/11/19 11/13/20 Noe Mccann MD Ophthalmology 02/11/19 Audra Gutierrez MD 10 [facility] 2nd [place] [address] [email or web address] Intensive Care 02/11/19 Edouard Mosley MD 40 [facility], [address] [place] [address] [email or web address] Plastic and Reconstructive Surgery 02/11/19 Nara Tejada MD [address] [place] [address], [address] [place] [address] [email or web address] Consulting Provider Nephrology 02/11/19 Jose Thomas MD [address] [place] [address] [email or web address] Consulting Provider Infectious Diseases 02/11/19 Trish Hammonds MD [address] [place] [address], [address] [place] [address] Rheumatology 02/11/19 Celina He DPM 22 [facility], [address] [place] [address] Podiatry 02/11/19 Olvin Harvey MD 22 [facility] Floor 1 [place] [address] [email or web address] Insurance Assigned Provider 04/12/17 03/06/19 Fabián Seaman MD 22 [facility], [address] [place] [address] [email or web address] Insurance Assigned Provider 03/06/19 07/09/19 Elizabeth Goode MD 301 [facility] 200 [place] [address] Psychologist 03/27/20 documented as of this encounter Additional Source Comments The information contained in this document represents components of the legal health record. It is not the complete legal health record.[facility]
--- OUTSIDE RECORDS SUMMARY | 2025-05-03 19:18 | XMS_ITS | Encounter Summary ---
Author Organization [facility] Address [address] [facility] [address] [place] [address] Phone Care Team Providers Care Vp Of Customer Experience Strategy Name Role Phone Martin Bales MD Unavailable Jose Gallagher MD Unavailable [phone] Ramiro Schmidt MD Unavailable [phone] Enio Starkey MD Unavailable [phone] Kenneth Carter MD Unavailable [phone] Noe Mccann MD Unavailable Unavailable Audra Gutierrez MD Unavailable [phone] Edouard Mosley MD Unavailable Martin Green MD Primary Care Provider Nara Tejada MD Unavailable [phone] Jose Thomas MD Unavailable [phone] Trish Hammonds MD Unavailable Celina He DPM Unavailable Elizabeth Goode MD Unavailable Martin Green MD Primary Care Provider [phone] Martin Green MD Primary Care Provider [phone] Griselda Bello NP Primary Care Provider +- [phone] Encounter Details Date Type Department Care Team (Late st Contact Info) Description 04/01/2020 Procedure Pass [facility], Ct Scan - [address] [address] Social History Tobacco Use Types Packs/Day Years [...] 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 file documented as of this encounter Plan of Treatment Upcoming Encounters Date Type Department Care Team (Late st Contact Info) Description 04/28/2025 Procedure Pass Non-Invasive Cardiology 22 [place] [address] 05/12/2025 1:00 PM EST Appointment Non-Invasive Cardiology [address] [place] [address] [place] [address] Tano Dueñas MD [address] [place] [address] 07/29/2025 1:00 PM EST Office Visit [facility] [address] [place] [address] 3rd Floor, [address] [address] Minda Nelson DNP [address] [place] [address], [address] [address] 08/31/2025 11:50 AM EDT Office Visit [facility], Allergy [facility] Critical [facility] Medicine [address] [place] [address] Audra Gutierrez MD 10 [facility] 2nd [place] [address] [email or web address] documented as of this encounter Visit Diagnoses [...] documented as of this encounter Care Teams Vp Of Customer Experience Strategy Relationship Specialty Start Date End Date Martin Green MD 40 [facility], [address] [place] [address] [email or web address] PCP - General Internal Medicine 02/11/19 04/11/20 Martin Green MD 40 [facility], [address] [place] [address] [email or web address] PCP - General Internal Medicine 04/12/20 05/25/23 Martin Green MD [address] [place] [phone] [email or web address] PCP - General Internal Medicine 05/26/23 01/25/25 Griselda Bello NP [address] [place] [address] PCP - General Nurse Practitioner 01/26/25 Martin Bales MD [address] [place] [address] [email or web address] Gastroenterology 10/07/18 11/13/20 Jose Gallagher MD [address] [place] [address], [address] [address] [email or web address] Urology 10/07/18 11/13/20 Ramiro Schmidt MD [address] [place] [address], [address] [address] [email or web address] Endocrinology 02/11/19 11/13/20 Enio Starkey MD [address] [place] [address], [address] [address] [email or web address] Cardiology 02/11/19 11/13/20 Kenneth Carter MD [address] [place] [address] Neurology 02/11/19 11/13/20 Noe Mccann MD Ophthalmology 02/11/19 Audra Gutierrez MD [address] [place] [address] 2nd [place] [address] [email or web address] Intensive Care 02/11/19 Edouard Mosley MD [address] [place] [address], [address] [place] [address] [email or web address] Plastic and Reconstructive Surgery 02/11/19 Nara Tejada MD [address] [place] [address], [address] [place] [address] [email or web address] Consulting Provider Nephrology 02/11/19 Jose Thomas MD [address] [place] [address] [email or web address] Consulting Provider Infectious Diseases 02/11/19 Trish Hammonds MD [address] [place] [address] [email or web address] Rheumatology 02/11/19 Celina He DPM [address] [place] [address] Podiatry 02/11/19 Elizabeth Goode MD [address] [place] [address] Psychologist 03/27/20 documented as of this encounter Additional Source Comments The information contained in this document represents components of the legal health record. It is not the complete legal health record.[facility]
--- OUTSIDE RECORDS SUMMARY | 2025-05-03 19:18 | XMS_ITS | Encounter Summary ---
Author Organization [facility] Address 399 [facility] [address] [place] [address] Phone Care Team Providers Care Pit Shoveler Name Role Phone Olvin Harvey MD Primary Care Provide r Olvin Harvey MD Unavailable [phone] Chelsy MclaughlinW Unavailable [email or web address] Ema Dumas DO Primary Care Provider Krissy Hernandez Primary Care Pro vider Martin Green MD Primary Care Provider [phone] Martin Bales MD Unavailable Jose Gallagher MD Unavailable [phone] Ramiro Schmidt MD Unavailable Enio Starkey MD Unavailable [phone] Kenneth Carter MD Unavailable Noe Mccann MD Unavailable Unavailable Audra Gutierrez MD Unavailable [phone] Edouard Mosley MD Unavailable Martin Green MD Primary Care Provider + Nara Tejada MD Unavailable [phone] Jose Thomas MD Unavailable + [phone] Trish Hammonds MD Unavailable +- [phone] PayamcharCelina DPM Unavailable +[phone] Olvin Harvey MD Unavailable [phone] Fabián Seaman MD Unavailable +[phone] Elizabeth Goode MD Unavailable [phone] Martin Green MD Primary Care Provider + Martin Green MD Primary Care Provider +[phone] Griselda Bello NP Primary Care Provider [phone] Encounter Details Date Type Department Care Team (Latest Contact Info) Description 11/04/2017 Transcribe Orders [facility] Phleb Main 30 [place] [address] Sukh Leigh DO 22 [place] [address] [email or web address] Diagnosis unknown (Primary Dx) Social History Tobacco [...] 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 file Not on file documented as of this encounter Plan of Treatment Upcoming Encounters Date Type Department Care Team (Late st Contact Info) Description 04/28/2025 Procedure Pass Non-Invasive Cardiology 22 [place] [address] 05/12/2025 1:00 PM EST Appointment Non-Invasive Cardiology [address] [place] [address] Tano Dueñas MD 22 [facility], [address] [place] [address] 07/29/2025 1:00 PM EST Office Visit [facility] [address] Floor, [address] [place] [address] Minda Nelson DNP 22 [facility], [address] [place] [address] 08/31/2025 11:50 AM EDT Office Visit [facility] Pulmonary, Allergy and Critical Care Medicine 10 [place] [address] Audra Gutierrez MD [address] [place] [address] 2nd [place] [address] documented as of this encounter Procedures Procedure Name Priority Date/Time Associated Diagnosis Comments MAGNESIUM Routine 11/04/2017 9:43 AM EDT Diagnosis unknown documented in this encounter Results * Creatinine, 24 hr urine (11/07/2017 2:00 PM EDT) URINE CREATININE 95 mg/dL [facility] CREATININE OUTPUT 950 600 - 1,800 mg/total output [facility] Urine (Urine) 11/07/2017 2:0 0 PM EDT 11/07/2017 4:24 PM EDT us Sukh Leigh DO LAB URINE ORDERABLES Final Resul t [facility] [address] [place] [address] * Phosphorus, 24 hr urine (11/07/2017 2:00 PM EDT) URINE PHOSPHORUS 63.1 mg/dL [facility] PHOSPHORUS OUTPUT 631.0 400 - 1,300 mg/total output [facility] Urine (Urine) 11/07/2017 2:0 0 PM EDT 11/07/2017 4:24 PM EDT Sukh Leigh DO URINE ORDERABLES Final Result Performing Organization Address [facility] Co de Phone Number [address] [address] * Calcium, 24 hour urine (11/07/2017 2:00 PM EDT) URINE CALCIUM 12.9 mg/dL [facility] CALCIUM OUTPUT 129 100 - 300 mg/total output [facility] Urine (Urine) 11/07/2017 2:0 0 PM EDT 11/07/2017 4:24 PM EDT Sukh Leigh DO URINE ORDERABLES Final Result Performing Organization Address [facility] Co de Phone Number [address] [address] * Magnesium (11/04/2017 9:43 AM EDT) MAGNESIUM 1.9 1.6 - 2.6 mg/dL [facility] Blood 11/04/2017 9:43 AM EDT 11/04/2017 9:46 AM EDT Sukh Leigh DO LAB BLOOD BKR ORDERABLES Final R esult Performing Organization Address [facility] de Phone Number [address] [address] documented in this encounter Visit Diagnoses Diagnosis [...] as of this encounter Care Teams Pit Shoveler Relationship Specialty Start Date End Date Olvin Harvey MD [address] [place] [address] [email or web address] PCP - General 12/07/13 06/11/18 Ema Kaufman DO [address] [place] [address] [email or web address] PCP - General 06/12/18 09/22/18 Krissy Hernandez PA [address] [place] [address] [email or web address] PCP - General Internal Medicine 09/23/18 10/04/18 Martin Green MD [address] [place] [address] [email or web address] PCP - General Internal Medicine 10/05/18 02/10/19 Martin Green MD [address] [place] [address] [email or web address] PCP - General Internal Medicine 02/11/19 04/11/20 Martin Green MD [address] [place] [address] [email or web address] PCP - General Internal Medicine 04/12/20 05/25/23 Martin Green MD [address] [place] [phone] [email or web address] PCP - General Internal Medicine 05/26/23 01/25/25 Griselda Bello NP [address] [place] [address] PCP - General Nurse Practitioner 01/26/25 Olvin Harvey MD [address] [address] [email or web address] Insurance Assigned Provider 04/12/17 02/10/19 Chelsy Mclaughlin LCSW [address] [address] [email or web address] Farm Products Shipper 08/08/17 07/05/18 Martin Bales MD [address] [place] [address] [email or web address] Gastroenterology 10/07/18 11/13/20 Jose Gallagher MD [address] [place] [address], [address] [place] [address] [email or web address] Urology 10/07/18 11/13/20 Ramiro Schmidt MD [address] [place] [address], [address] [place] [address] [email or web address] Endocrinology 02/11/19 11/13/20 Enio Starkey MD [address] [place] [address], [address] [place] [address] [email or web address] Cardiology 02/11/19 11/13/20 Kenneth Carter MD [address] [place] [address] Neurology 02/11/19 11/13/20 Noe Mccann MD Ophthalmology 02/11/19 Audra Gutierrez MD [address] [place] [address] 2nd [place] [address] [email or web address] Intensive Care 02/11/19 Edouard Mosley MD 40 [facility], [address] [place], [place] [address] [email or web address] Plastic and Reconstructive Surgery 02/11/19 Nara Tejada MD [address] [place] [address], [address] [place] [address] [email or web address] Consulting Provider Nephrology 02/11/19 Jose Thomas MD [address] [place] [address] [email or web address] Consulting Provider Infectious Diseases 02/11/19 Trish Hammonds MD [address] [place] [address], [address] [place] [address] [email or web address] Rheumatology 02/11/19 Celina He DPM 22 [facility], [address] [place] [address] [email or web address] Podiatry 02/11/19 Olvin Harvey MD 22 [facility] Floor 1 [place] [address] [email or web address] Insurance Assigned Provider 04/12/17 03/06/19 Fabián Seaman MD 22 [facility], [address] [place] [address] [email or web address] Insurance Assigned Provider 03/06/19 07/09/19 Elizabeth Goode MD [address] [place] [address] Psychologist 03/27/20 documented as of this encounter Additional Source Comments The information contained in this document represents components of the legal health record. It is not the complete legal health record.[facility]
--- OUTSIDE RECORDS SUMMARY | 2025-05-03 19:18 | XMS_ITS | Encounter Summary ---
Author Organization [facility] Address [address] [place] [address] [address] [place] [address] Phone Care Team Providers Care Film Vault Supervisor Name Role Phone Noe Mccann MD Unavailable Unavailable Audra Gutierrez MD Unavailable Edouard Mosley MD Unavailable Nara Tejada MD Unavailable [phone] Jose Thomas MD Unavailable + [phone] Trish Hammonds MD Unavailable [phone] Celina He DPM Unavailable [phone] Elizabeth Goode MD Unavailable [phone] Martin Green MD Primary Care Provider +[phone] Martin Green MD Primary Care Provider +-[phone] Griselda Bello NP Primary Care Provider + [phone] Encounter Details Date Type Department Care Team (Late st Contact Info) Description 03/23/2021 Procedure Pass [facility], Ct Scan - 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 Wish to be (Past 1 Month) No 03/24/2021 1:00 AM Krystal Power RN 2. Non-Specific Active Suici aby Thoughts (Past 1 Month) No 03/24/2021 1:00 AM Krystal Power RN 6. Suicidal Behavior (Lifetime) No 1:00 AM Krystal Power RN documented as of this encounter Plan of Treatment Upcoming Encounters Date Type Department Care Team (Late st Contact Info) Description 04/28/2025 Procedure Pass Non-Invasive Cardiology [address] [place] [address] [place] [address] 05/12/2025 1:00 PM EST Appointment Non-Invasive Cardiology [place] [address] Tano Dueñas MD 22 [facility], [address] [address] 07/29/2025 1:00 PM EST Office Visit [facility] [address] 3rd Floor, [address] [place] [address] Minda Nelson DNP [address] [place] [address], [address] [place] [address] [email or web address] 08/31/2025 11:50 AM EDT Office Visit [facility] 10 [facility] [place] [address] Audra Gutierrez MD 10 [facility] 2nd [place] [address] documented as of this encounter Visit Diagnoses [...] documented as of this encounter Care Teams Film Vault Supervisor Relationship Specialty Start Date End Date Martin Green MD [address] [place] [address] [address] [place] [address] [email or web address] PCP - General Internal Medicine 04/12/20 05/25/23 Martin Green MD 238 [place] [address] [email or web address] PCP - General Internal Medicine 05/26/23 01/25/25 Griselda Bello NP 238 [place] [address] PCP - General Nurse Practitioner 01/26/25 Noe Mccann MD Ophthalmology 02/11/19 Audra Gutierrez MD 10 [facility] 2nd [place] [address] [email or web address] Intensive Care 02/11/19 Edouard Mosley MD [address] [place] [address], [address] [place] [address] [email or web address] Plastic and Reconstructive Surgery 02/11/19 Nara Tejada MD [address] [place] [address], [address] [place] [address] [email or web address] Consulting Provider Nephrology 02/11/19 Jose Thomas MD [address] [place] [address] [email or web address] Consulting Provider Infectious Diseases 02/11/19 Trish Hammonds MD 22 [facility], [address] [place] [address] Rheumatology 02/11/19 Celina He DPM 22 [facility], [address] [address] Podiatry 02/11/19 Elizabeth Goode MD [address] [place] [address] Psychologist 03/27/20 documented as of this encounter Additional Source Comments The information contained in this document represents components of the legal health record. It is not the complete legal health record.[facility]
--- OUTSIDE RECORDS SUMMARY | 2025-05-03 19:18 | XMS_ITS | Encounter Summary ---
Author Organization [facility] Address [address] [facility] [address] [place] [address] Phone Care Team Providers Care Belt Brander Name Role Phone Martin Bales MD Unavailable Jose Gallagher MD Unavailable [phone] Ramiro Schmidt MD Unavailable [phone] Enio Starkey MD Unavailable [phone] Kenneth Carter MD Unavailable Noe Mccann MD Unavailable Unavailable Audra Gutierrez MD Unavailable Edouard Mosley MD Unavailable Martin Green MD Primary Care Provider Nara Tejada MD Unavailable Jose Thomas MD Unavailable [phone] Trish Hammonds MD Unavailable Celina He DPM Unavailable Elizabeth Goode MD Unavailable Martin Green MD Primary Care Provider [phone] Martni Green MD Primary Care Provider +[phone] Griselda Bello NP Primary Care Provider +- [phone] Encounter Details Date Type Department Care Team (Late st Contact Info) Description 03/23/2020 Procedure Pass [facility] Admitting Dept Virtual Department 30 [place] [address] Social History Tobacco Use Types Packs/Day Years [...] 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 Not on file documented as of this encounter Plan of Treatment Upcoming Encounters Date Type Department Care Team (Late Contact Info) Description 04/28/2025 Procedure Pass Non-Invasive Cardiology [address] [place] [address] 05/12/2025 1:00 PM EST Appointment Non-Invasive Cardiology [address] [place] [address] [place] [address] Tano Dueñas MD [address] [place] [address] 07/29/2025 1:00 PM EST Office Visit [facility] [address] [place] [address] 3rd Floor, [address] [address] Minda Nelson DNP [address] [place] [address], [address] [address] 08/31/2025 11:50 AM EDT Office Visit [facility] All[facility] [address] [place] [address] Audra Gutierrez MD 10 [facility] 2nd [place] [address] [email or web address] documented [...] documented as of this encounter Care Teams Belt Brander Relationship Specialty Start Date End Date Martin Green MD [address] [place] [address], [address] [place] [address] [email or web address] PCP - General Internal Medicine 02/11/19 04/11/20 Martin Green MD 40 [facility], [address] [place] [address] [email or web address] PCP - General Internal Medicine 04/12/20 05/25/23 Martin Green MD [address] [place] [address] [email or web address] PCP - General Internal Medicine 05/26/23 01/25/25 Griselda Bello NP [address] [place] [address] PCP - General Nurse Practitioner 01/26/25 Martin Bales MD [address] [place] [address] [email or web address] Gastroenterology 10/07/18 11/13/20 Jose Gallagher MD [address] [place] [address], [address] [place] [address] [email or web address] Urology 10/07/18 11/13/20 Ramiro Schmidt MD [address] [place] [address], [address] [place] [address] [email or web address] Endocrinology 02/11/19 11/13/20 Enio Starkey MD [address] [place] [address], [address] [place] [address] [email or web address] Cardiology 02/11/19 11/13/20 Kenneth Carter MD [address] [place] [address] Neurology 02/11/19 11/13/20 Noe Mccann MD Ophthalmology 02/11/19 Audra Gutierrez MD [address] [place] [address] 2nd [place] [address] [email or web address] Intensive Care 02/11/19 Edouard Mosley MD [address] [place] [address] Plastic and Reconstructive Surgery 02/11/19 Nara Tejada MD [address] [place] [address], 3 [place] [address] [email or web address] Consulting Provider Nephrology 02/11/19 Jose Thomas MD [address] [place] [address] [email or web address] Consulting Provider Infectious Diseases 02/11/19 Trish Hammonds MD [address] [place] [address], [address] [address] [email or web address] Rheumatology 02/11/19 Celina He DPM [address] [place] [address], [address] [address] Podiatry 02/11/19 Elizabeth Goode MD 301 [facility] 200 [place] [address] Psychologist 03/27/20 documented as of this encounter Additional Source Comments The information contained in this document represents components of the legal health record. It is not the complete legal health record.[facility]
--- OUTSIDE RECORDS SUMMARY | 2025-05-03 19:18 | XMS_ITS | Encounter Summary ---
Author Organization [facility] Address [address] [facility] [address] [place] [address] Phone Care Team Providers Care Cow Washer Name Role Phone Martin Bales MD Unavailable Jose Gallagher MD Unavailable [phone] Ramiro Schmidt MD Unavailable [phone] Enio Starkey MD Unavailable [phone] Kenneth Carter MD Unavailable [phone] Noe Mccann MD Unavailable Unavailable Audra Gutierrez MD Unavailable Edouard Mosley MD Unavailable Martin Green MD Primary Care Provider Nara Tejada MD Unavailable [phone] Jose Thomas MD Unavailable [phone] Trish Hammonds MD Unavailable [phone] Celina He DPM Unavailable Elizabeth Goode MD Unavailable [phone] Martin Green MD Primary Care Provider [phone] Martin Green MD Primary Care Provider [phone] Griselda Bello NP Primary Care Provider [phone]- [phone] Encounter Details Date Type Department Care Team (Late st Contact Info) Description 01/28/2020 Procedure Pass [facility], Ct Scan - [address] [address] Social History Tobacco Use Types Packs/Day Years [...] 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 Not on file documented as of this encounter Plan of Treatment Upcoming Encounters Date Type Department Care Team (Late st Contact Info) Description 04/28/2025 Procedure Pass Non-Invasive Cardiology 22 [place] [address] 05/12/2025 1:00 PM EST Appointment Non-Invasive Cardiology [address] [place] [address] [place] [address] Tano Dueñas MD [address] [place] [address] 07/29/2025 1:00 PM EST Office Visit [facility] [address] [place] [address] 3rd Floor, [address] [address] Minda Nelson DNP [address] [place] [address], [address] [address] 08/31/2025 11:50 AM EDT Office Visit [facility] [address] [place] [address] Audra Gutierrez MD 10 [facility] 2nd [place] [address] [email or web address] documented as [...] documented as of this encounter Care Teams Cow Washer Relationship Specialty Start Date End Date Martin Green MD 40 [facility], [address] [place] [address] [email or web address] PCP - General Internal Medicine 02/11/19 04/11/20 Martin Green MD 40 [facility], [address] [place] [address] [email or web address] PCP - General Internal Medicine 04/12/20 05/25/23 Martin Green MD [address] [place] [phone] [email or web address] PCP - General Internal Medicine 05/26/23 01/25/25 Griselda Bello NP [address] [place] [address] PCP - General Nurse Practitioner 01/26/25 Martin Bales MD [address] [place] [address] [email or web address] Gastroenterology 10/07/18 11/13/20 Jose Gallagher MD [address] [place] [address], [address] [place] [address] [email or web address] Urology 10/07/18 11/13/20 Ramiro Schmidt MD [address] [place] [address], [address] [place] [address] [email or web address] Endocrinology 02/11/19 11/13/20 Enio Starkey MD [address] [place] [address], [address] [place] [address] [email or web address] Cardiology 02/11/19 11/13/20 Kenneth Carter MD [address] [place] [address] Neurology 02/11/19 11/13/20 Noe Mccann MD Ophthalmology 02/11/19 Audra Gutierrez MD [address] [place] [address] 2nd [place] [address] [email or web address] Intensive Care 02/11/19 Edouard Mosley MD [address] [place] [address] Plastic and Reconstructive Surgery 02/11/19 Nara Tejada MD [address] [place] [address], 3 [place] [address] Consulting Provider Nephrology 02/11/19 Jose Thomas MD [address] [place] [address] [email or web address] Consulting Provider Infectious Diseases 02/11/19 Trihs Hammonds MD [address] [place] [address], [address] [address] Rheumatology 02/11/19 Celina He DPM [address] [place] [address], [address] [address] Podiatry 02/11/19 Elizabeth Goode MD 301 [facility] 200 [place] [address] Psychologist 03/27/20 documented as of this encounter Additional Source Comments The information contained in this document represents components of the legal health record. It is not the complete legal health record.[facility]
--- OUTSIDE RECORDS SUMMARY | 2025-05-03 19:18 | XMS_ITS | Encounter Summary ---
Author Organization [facility] Address [address] [place] [address] [address] [place] [address] Phone Care Team Providers Care Manager Alliance Name Role Phone Noe Mccann MD Unavailable Unavailable Audra Gutierrez MD Unavailable Edouard Mosley MD Unavailable Nara Tejada MD Unavailable [phone] Jose Thomas MD Unavailable + [phone] Trish Hammonds MD Unavailable [phone] Celina He DPM Unavailable [phone] Elizabeth Goode MD Unavailable [phone] Martin Green MD Primary Care Provider +[phone] Martin Green MD Primary Care Provider +5 Griselda Bello NP Primary Care Provider + [phone] Encounter Details Date Type Department Care Team (Late st Contact Info) Description 11/14/2020 Procedure Pass [facility], Ct Scan - [facility] [address] [place] [address] Social History Tobacco Use Types Packs/Day Years [...] 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 Wish to be (Past 1 Month) No 021 1:07 PM EDT Dara Latham RN 2. Non-Specific Active Suici aby Thoughts (Past 1 Month) No 11/14/2020 1:07 PM EDT Dara aLtham RN 6. Suicidal Behavior (Lifetime) No 1:07 PM EDT Dara Latham RN documented as of this encounter Plan of Treatment Upcoming Encounters Date Type Department Care Team (Late st Contact Info) Description 04/28/2025 Procedure Pass Non-Invasive [place] [address] 05/12/2025 1:00 PM EST Appointment Non-Invasive Card[place] [address] Tano Dueñas MD 22 [facility], [address] [place] [address] 07/29/2025 1:00 PM EST Office Visit [facility] [address] 3rd Floor, [address] [place] [address] Minda Nelson DNP 22 [facility], [address] [place] [address] [email or web address] 08/31/2025 11:50 AM EDT Office Visit [facility], Allergy [facility] Critical [facility] Medicine 10 [facility] [place] [address] Audra Gutierrez MD 10 [facility] 2nd [place] [address] [email or web address] documented as of this encounter [...] as of this encounter Care Teams Manager Alliance Relationship Specialty Start Date End Date Martin Green MD [address] [place] [address] [email or web address] PCP - General Internal Medicine 04/12/20 05/25/23 Martin Green MD [address] [place] [phone] [email or web address] PCP - General Internal Medicine 05/26/23 01/25/25 Griselda Bello NP 238 [place] [address] PCP - General Nurse Practitioner 01/26/25 Noe Mccann MD Ophthalmology 02/11/19 Audra Gutierrez MD [address] [place] [address] 2nd [place] [address] [email or web address] Intensive Care 02/11/19 Edouard Mosley MD [address] [place] [address], [address] [place] [address] [email or web address] Plastic and Reconstructive Surgery 02/11/19 Nara Tejada MD [address] [place] [address], [address] [place] [address] [email or web address] Consulting Provider Nephrology 02/11/19 Jose Thomas MD [address] [place] [address] [email or web address] Consulting Provider Infectious Diseases 02/11/19 Trish Hammonds MD [address] [place] [address], [address] [place] [address] Rheumatology 02/11/19 Celina He DPM [address] [place] [address], [facility] 203 [place] [address] Podiatry 02/11/19 Elizabeth Goode MD [address] [place] [address] Psychologist 03/27/20 documented as of this encounter Additional Source Comments The information contained in this document represents components of the legal health record. It is not the complete legal health record.[facility]
--- OUTSIDE RECORDS SUMMARY | 2025-05-03 19:18 | XMS_ITS | Encounter Summary ---
Author Organization [facility] Address [address] [place] [address] [address] [place] [address] Phone Care Team Providers Care Chief Airport Guide Name Role Phone Noe Mccann MD Unavailable Unavailable Audra Gutierrez MD Unavailable Edouard Mosley MD Unavailable Nara Tejada MD Unavailable [phone] Jose Thomas MD Unavailable + [phone] Trish Hammonds MD Unavailable [phone] Celina He DPM Unavailable [phone] Elizabeth Goode MD Unavailable [phone] Martin Green MD Primary Care Provider +-[phone] Martin Green MD Primary Care Provider +5 Griselda Bello NP Primary Care Provider + [phone] Encounter Details Date Type Department Care Team (Late st Contact Info) Description 04/14/2021 Procedure Pass [facility], Ct Scan - [facility] [address] [place] [address] Social History Tobacco Use Types Packs/Day Years [...] 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 Not on file Not on file documented as of this encounter Functional Status * Calculated C-SSRS Risk Score (Lifetime/Recent) Answer Date of Assessment Author No Risk Indicated 04/14/2021 12:26 PM EDT Lisa Felipe RN * [place] Suicide Severity Rating Scale (Screener/Recent Self-Report) Question [...] Info) Description 04/28/2025 Procedure Pass Non-Invasive Cardiology [address] [place] [address] [place] [address] 05/12/2025 1:00 PM EST Appointment Non-Invasive Card[place] [address] Tano Dueñas MD 22 [facility], [address] [address] 07/29/2025 1:00 PM EST Office Visit [facility] [address] 3rd Floor, [address] [place] [address] Minda Nelson DNP [address] [place] [address], [address] [place] [address] 08/31/2025 11:50 AM EDT Office Visit [facility] All[facility] 10 [facility] [address] [place] [address] Audra Gutierrez MD 10 [facility] 2nd [place] [address] [email or web address] documented as of this encounter Visit Diagnoses [...] as of this encounter Care Teams Chief Airport Guide Relationship Specialty Start Date End Date Martin Green MD 301 [facility] 200 [place] [address] [email or web address] PCP - General Internal Medicine 04/12/20 05/25/23 Martin Green MD 238 [place] [address] PCP - General Internal Medicine 05/26/23 01/25/25 Griselda Bello NP [address] [place] [address] PCP - General Nurse Practitioner 01/26/25 Noe Mccann MD Ophthalmology 02/11/19 Audra Gutierrez MD [address] [place] [address] 2nd [place] [address] [email or web address] Intensive Care 02/11/19 Edouard Mosley MD [address] [place] [address], [address] [place] [address] [email or web address] Plastic and Reconstructive Surgery 02/11/19 Nara Tejada MD [address] [place] [address], [address] [place] [address] [email or web address] Consulting Provider Nephrology 02/11/19 Jose Thomas MD [address] [place] [address] [email or web address] Consulting Provider Infectious Diseases 02/11/19 Trish Hammonds MD 22 [facility], [address] [place] [address] Rheumatology 02/11/19 Celian He DPM 22 [facility], [address] [address] Podiatry 02/11/19 Elizabeth Goode MD [address] [place] [address] Psychologist 03/27/20 documented as of this encounter Additional Source Comments The information contained in this document represents components of the legal health record. It is not the complete legal health record.[facility]
--- OUTSIDE RECORDS SUMMARY | 2025-05-03 19:18 | XMS_ITS | Encounter Summary ---
Author Organization [facility] Address [address] [place] [address] Phone Care Team Providers Care Educational Specialist Name Role Phone Martin Bales MD Unavailable Jose Gallagher MD Unavailable [phone] Ramiro Schmidt MD Unavailable Enio Starkey MD Unavailable [phone] Kenneth Carter MD Unavailable [phone] Noe Mccann MD Unavailable Unavailable Audra Gutierrez MD Unavailable Edouard Mosley MD Unavailable Nara Tejada MD Unavailable Jose Thomas MD Unavailable [phone] Trish Hammonds MD Unavailable Celina He DPM Unavailable Elizabeth Goode MD Unavailable Martin Green MD Primary Care Provider [phone] Martin Green MD Primary Care Provider Griselda Bello NP Primary Care Provider [phone] Encounter Details Date Type Department Care Team (Late st Contact Info) Description 09/05/2020 Procedure Pass [facility] Cardiac Java Scala Developer [address] [place] [address] Social History Tobacco Use Types Packs/Day Years [...] Job Start Date Job End Date Retired [employer] Not on file Not on file Not on file documented as of this encounter Plan of Treatment Upcoming Encounters Date Type Department Care Team (Late st Contact Info) Description 04/28/2025 Procedure Pass Non-Invasive Cardiology [address] [place] [address] [place] [address] 05/12/2025 1:00 PM EST Appointment Non-Invasive Cardiology [address] [place] [address] [place] [address] Tano Dueñas MD [address] [place] [phone] 07/29/2025 1:00 PM EST Office Visit [facility] [address] [place] [address] [address] Floor, [address] [address] Minda Nelson DNP [address] [place] [phone] 08/31/2025 11:50 AM EDT Office Visit [facility] Pulmonary, Allergy and Critical Care Medicine [address] [place] [address] Audra Gutierrez MD [address] [place] [phone] [email or web address] documented as of this encounter Visit Diagnoses [...] documented as of this encounter Care Teams Educational Specialist Relationship Specialty Start Date End Date Martin Green MD [address] [place] [phone] [email or web address] PCP - General Internal Medicine 04/12/20 05/25/23 Martin Green MD [address] [place] [phone] [email or web address] PCP - General Internal Medicine 05/26/23 01/25/25 Griselda Bello NP [address] [place] [phone] PCP - General Nurse Practitioner 01/26/25 Martin Bales MD [address] [place] [phone] [email or web address] Gastroenterology 10/07/18 11/13/20 Jose Gallagher MD [address] [place] [address], [address] [address] [email or web address] Urology 10/07/18 11/13/20 Ramiro Schmidt MD [address] [place] [address], [address] [place] [phone] [email or web address] Endocrinology 02/11/19 11/13/20 Enio Starkey MD [address] [place] [address], [address] [address] [email or web address] Cardiology 02/11/19 11/13/20 Kenneth Carter MD [address] [place] [phone] Neurology 02/11/19 11/13/20 Noe Mccann MD Ophthalmology 02/11/19 Audra Gutierrez MD [address] [place] [address] Intensive Care 02/11/19 Edouard Mosley MD [address] [place] [address] [address] [place] [address] Plastic and Reconstructive Surgery 02/11/19 Nara Tejada MD [address] [place] [address], [address] [place] [address] [email or web address] Consulting Provider Nephrology 02/11/19 Jose Thomas MD [address] [place] [address] [email or web address] Consulting [email or web address] Infectious Diseases 02/11/19 Trish Hammonds MD [address] [place] [phone] [email or web address] Rheumatology 02/11/19 Celina He DPM [address] [place] [address], [address] [address] [email or web address] Podiatry 02/11/19 Elizabeth Goode MD [address] [place] [phone] Psychologist 03/27/20 documented as of this encounter Additional Source Comments The information contained in this document represents components of the legal health record. It is not the complete legal health record.[facility]
--- OUTSIDE RECORDS SUMMARY | 2025-05-03 19:18 | XMS_ITS ---
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 Name Role Phone Halina Gutierrez Unavailable Unavailable Al Glez Unavailable Unavailable Stuart Keita Unavailable Unavailable Allergies and adverse reactions Code CodeSystem Substance Reaction Severity StartDate Concern Status 723 RXNORM Amoxicillin Unknown 04/22/[address] Cephalosporins Unknown 04/22/2025 ac tive 90450 RXNORM Clarithromycin Unknown 04/22/[address] Clavulanic Acid Unknown 04/22/2025 a ctive 3498 RXNORM diphenhydrAMINE Unknown 04/22/2025 activ e 3640 RXNORM Doxycycline Unknown 04/22/2025 active 66724 RXNORM DULoxetine Unknown 04/22/2025 active 4493 RXNORM FLUoxetine Unknown 04/22/2025 active 99452 RXNORM Gabapentin Unknown 04/22/2025 active 5487 RXNORM hydroCHLOROthiazide Unknown 04/22/2025 a ctive 88174 RXNORM levoFLOXacin Unknown 04/22/2025 active 57372 RXNORM Losartan Unknown 04/22/2025 active 6809 RXNORM metFORMIN Unknown 04/22/[address] NSAIDs Unknown 04/22/2025 active 7984 RXNORM Penicillin Unknown 04/22/2025 active 052682 RXNORM Pregabalin Unknown 04/22/[address] Sulfa Antibiotics Unknown 04/22/2025 active Care Team Name Role Address Phone Organization Dates Stuart Keita PCP [address] [place], [address], [facility] (Office): : [facility] 04/23/2025 - present Halina Gutierrez [address], [place], [address], [facility] (Office): : [facility] 04/23/2025 - present Al Glez [address] [place], [address], [place] [facility] (Office): : [facility] 04/23/2025 - present Encounters Encounter Type Code Code System Description Performer Discharge Disposition Service Delivery Location Date Ambulatory Encounter CPT Code = [id number] Atrial fibrillation [facility] Address: [address] [place] [address]. 04/22 Ambulatory Encounter CPT Code = 72913 Z95.2 ICD 10 PRESENCE OF PROSTHETIC HEART VALVE [facility] Address: [address] [place] [address]. 04/22 Ambulatory Encounter CPT Code = [id number] Implantation procedure [facility] Address: [address] [place] [address]. 04/22 Ambulatory Encounter CPT Code = [id number] Urinary tract infectious disease [facility] Address: [address] [place] [address]. 04/22 Ambulatory Encounter CPT Code = [id number] Atherosclerosis of coronary artery without angina pectoris [facility] Address: [address] [place] [address]. 04/22 Ambulatory Encounter CPT Code = [id number] Pulmonary embolism [facility] Address: [address] [place] [address]. 04/22 Ambulatory Encounter CPT Code = [id number] Cerebrovascular disease [facility] Address: [address] [place] [address]. 04/22 Ambulatory Encounter CPT Code = [id number] Hypothyroidism [facility] Address: [address] [place] [address]. 04/22 Ambulatory Encounter CPT Code = [id number] Type 2 diabetes mellitus without complication [facility] Address: [address] [place] [address]. 04/22 Ambulatory Encounter CPT Code = [id number] Undernutrition [facility] Address: [address] [place] [address]. 04/22 Ambulatory Encounter CPT Code = [id number] Chronic pain syndrome [facility] Address: [address] [place], [place] [id number]. 04/22 Ambulatory Encounter CPT Code = 52816 G35.D ICD 10 MULTIPLE SCLEROSIS, UNSPECIFIED [facility] Address: [address] [place], [place] [id number]. 04/22 Ambulatory Encounter CPT Code = [id number] Chronic obstructive pulmonary disease [facility] Address: [address] [place], [place] [id number]. 04/22 Ambulatory Encounter CPT Code = [id number] Posttraumatic stress disorder [facility] Address: [address] [place] [address]. 04/22 Ambulatory Encounter CPT Code = [id number] Depressive disorder [facility] Address: [address] [place] [address]. 04/22 Ambulatory Encounter CPT Code = [id number] Obstructive sleep apnea syndrome [facility] Address: [address] [place] [address]. 04/22 Ambulatory Encounter CPT Code = [id number] Fibromyalgia [facility] Address: [address] [place] [address]. 04/22 Ambulatory Encounter CPT Code = [id number] Muscle atrophy [facility] Address: [address] [place] [address]. 04/22 Ambulatory Encounter CPT Code = [id number] Glaucoma [facility] Address: [address] [place] [address]. 04/22 Goals Section Goals Description Status Target Date I plan to discharge to: Spec kelly- To community alone, To Community with Family, [facility], LTC Placement, Other- Undecided at current time. Pending outcome of therapy sessions, clinical medical stability progress reviewed weekly. Active 07/17/2025 I will be able to communicat e effectively and with dignity with my care team, and to have my needs met through the review Active 07/17/2025 I will be able to identify t he triggers that cause me to experience anxiety, trauma, and flashbacks and learn coping mechanisms to mitigate their impact on my well-being through the review date. Active 07/17/2025 I will be at reduced risk fo r complications of self care performance deficit and impaired mobility daily through the review date. Active 07/17/2025 I will be at reduced risk fo r skin breakdown daily through the review date. Active 07/17/2025 I will be free from discomfo rt or adverse side effects of anticoagulant therapy through the review date. Active 026 I will be free from discomfo rt or adverse side effects of diuretic therapy through the review date. Active 07/17/2025 I will be free from discomfo rt or adverse side effects related to anti-anxiety therapy through the review date. Active 07/17/19 26 I will be free from s/sx of complications of cardiac problems through the review date. Active 07/17/2025 I will be free from s/sx of dehydration through next review date. Active 07/17/2025 I will be free of fall relat ed injury through the next review date. Active 07/17/2025 I will display my optimal br eathing pattern daily through the review date. Active 07/17/2025 I will have no complications related to diabetes through the review date. Active 07/17/2025 I will have no complications related to hyperthyroidism through the review date. Active 07/17/2025 I will maintain adequate nut ritional status as evidenced by maintaining weight within +/-5% of CBW, no s/sx of malnutrition, and consuming at least 76% of all meals daily through review date. Active 07/17/2025 I will maintain optimal qual ity of life within limitation imposed by visual function through the review date. Active 07/17/2025 I will maintain or improve m y independence and mobility through review date. Active 07/17/2025 I will participate in activi ties of choice 1-3 times per week by review date Active 07/17/2025 I will verbalize adequate re lief of pain or ability to cope with incompletely relieved pain through the review date. Active My skin integrity will be im proved or maintained by next review date. Active 07/17/2025 My urinary tract infection w ill resolve without complications by the review date. Active 07/17/2025 Resident will maintain heart rate within acceptable limits as determined by MD/ pacemaker settings through review date. Active 07/17/2025 The resident's advance direc tives are in effect and their wishes will be carried out through the next review. Active Functional Status Code Name Recorded Time Value Entered By Eating 05/03/2025 Independent spolastri Lying to sitting on side of bed 05/03/2025 Partial/m oderate assistance mseery Oral hygiene 05/03/2025 Partial/moderate assistance kasia Personal hygiene 05/03/2025 Partial/moderate assista nce kasia Shower/bathe self 05/03/2025 Partial/moderate assist ance kasia Sit to lying 05/03/2025 Partial/moderate assistance kasia Toilet transfer 05/03/2025 Partial/moderate assistan mika kasia Toileting hygiene 05/03/2025 Partial/moderate assist nave kasia Immunizations Immunization Status Vaccine Details Vaccine Code CodeSystem Date Notes PPSV23 (Previous Pneumococcal Polysaccharide)V accine completed pneumococcal polysaccharide vaccine, 23 valent lotNumber: [id number] CVX created date: 04/26/2025 administer ed date: 10/07/2017 TD Diphtheria/Tetan us completed tetanus and diphtheria toxoids, adsorbed, preservative free, for adult use (2 Lf of tetanus toxoid and 2 Lf of diphtheria toxoid) lotNumber: [id number] Given 0.5 09 CVX created date: 04/26/2025 administer ed date: 10/20/2018 doseUOMNonc abby:mL (Influenza) FLUAD - Adjuvanted - High Dose - 65+ cancelled Influenza, adjuvanted, inactivated, trivalent, injectable, preservative free 168 CVX created date: 04/27/2025 consent date: 04/22/2025 Educated by on 04/27/2025 (COVID-19) [id number] Updated Pfizer Vaccine cancelled SARS-COV-2 (COVID-19) vaccine, mRNA, spike protein, LNP, preservative free, claudia-sucrose, 30 mcg/0.3 mL dose 309 CVX created date: 04/27/2025 consent date: 04/22/2025 Educated by on 04/27/2025 Medications Section Medication Name Status Code CodeSystem Dose Route Frequency Admin Type Sig Text Start Date End Date Indication traMADol HCl Oral Tablet 50 MG aborted 23137 3 RXNORM 1 table t Oral as needed PRN Give 1 table t by mouth every 6 hours as neede d for analg esic 04/27 analgesic Promethazin e HCl Oral Tablet 25 MG active 75006 7 RXNORM 1 table t Oral as needed PRN Give 1 table t by mouth every 6 hours as neede d for fever heada jeanne 2024 - fever headache Tylenol Oral Tablet 325 MG aborted 7 RXNORM 3 table t Oral as needed PRN Give 3 table t by mouth every 6 hours as neede d for pain and heada jeanne 04/27 pain and headache Montelukast Sodium Oral Tablet 10 MG active 46842 4 RXNORM 1 table t Oral one time a day Routin e Give 1 table t by mouth one time a day for antia sthma tic 2024 - antiasthmat ic Latanoprost Ophthalmic Solution 0.005 % active 82424 2 RXNORM 1 drop Ophtha lmic at bedtime Routin e Insti ll 1 drop in both eyes at bedti me for optha lmic agent 2024 - opthalmic agent Brimonidine Tartrate Ophthalmic Solution 0.2 % active 55021 0 RXNORM 1 drop Ophtha lmic two times a day Routin e Insti ll 1 drop in both eyes two times a day for optha lmic agent 2024 - opthalmic agent Lidocaine Patch 4 % active 51982 78 RXNORM n/a n/a Topica l in the morning Routin e Apply to [facility] for 12 hours then remov e 2024 - pain Amantadine HCl Oral Tablet 100 MG active 66611 5 RXNORM 1 table t Oral two times a day Routin e Give 1 table t by mouth two times a day for anti parki nsons agent 2024 - anti parkinsons agent Modafinil Oral Tablet 100 MG aborted 08052 8 RXNORM 1 table t Oral two times a day Routin e Give 1 table t by mouth two times a day for adhd/ narco lepsy 04/27 adhd/narcol epsy Sildenafil Citrate Oral Tablet 20 MG active 46436 3 RXNORM 1 table t Oral three times a day Routin e Give 1 table t by mouth three times a day for cardi ovasc ular agent s 2024 - cardiovascu lar agents Dorzolamide HCl Ophthalmic Solution 2 % active 17283 5 RXNORM 1 drop Ophtha lmic two times a day Routin e Insti ll 1 drop in both eyes two times a day for optha lmic agent 2024 - opthalmic agent Torsemide Oral Tablet 20 MG active 1 RXNORM 2 table t Oral one time a day Routin e Give 2 table t by mouth one time a day for diure tics 2024 - diuretics Albuterol Sulfate Nebulizatio n Solution (2.5 MG/3ML) 0.083% active 34226 8 RXNORM 3 ml Inhala tion as needed PRN 3 ml inhal e orall y via nebul izer every 6 hours as neede d for Short ness of Breat h 2024 - Shortness of Breath Spironolact one Oral Tablet 25 MG active 49463 6 RXNORM 1 table t Oral one time a day Routin e Give 1 table t by mouth one time a day for diure tics 2024 - diuretics traZODone HCl Oral Tablet 50 MG aborted 14612 7 RXNORM 1 table t Oral as needed PRN Give 1 table t by mouth every 6 hours as neede d for insom felix 04/26 insomnia Cardizem LA Tablet Extended Release 24 Hour 300 MG active 13997 3 RXNORM 1 table t Oral one time a day Routin e Give 1 table t by mouth one time a day for calci um chann el block er 2024 - calcium channel romeo Levothyroxi ne Sodium Oral Tablet 75 MCG active 07731 2 RXNORM 1 table t Oral one time a day Routin e Give 1 table t by mouth one time a day for thyro id agent 2024 - thyroid agent Thiamine HCl Oral Tablet 100 MG active 93606 3 RXNORM 1 table t Oral one time a day Routin e Give 1 table t by mouth one time a day for vitam ins 2024 - vitamins Ketorolac Tromethamin e Ophthalmic Solution 0.5 % active 34959 7 RXNORM 1 drop Ophtha lmic three times a day Routin e Insti ll 1 drop in right eye three times a day for OPHTH ALMIC AGENT S 2024 - OPHTHALMIC AGENTS Camphor-Men thol External Lotion 0.5-0.5 % active 6 RXNORM n/a n/a Topica l as needed PRN Apply to [facility] area topic ally every 12 hours as neede d for itchi ng 2024 - itching Pantoprazol e Sodium Oral Tablet Delayed Release 20 MG active 65020 2 RXNORM 1 table t Oral one time a day Routin e Give 1 table t by mouth one time a day for ULCER DRUGS / 2024 - ULCER DRUGS/ Nystop External Powder 436159 UNIT/GM active 40909 8 RXNORM n/a n/a Topica l two times a day Routin e Apply to [facility] area topic ally two times a day for DERMA TOLOG ICALS 2024 - DERMATOLOGI CALS Dextroamphe tamine Sulfate Oral Tablet 30 MG active 04623 70 RXNORM 1 table t Oral one time a day Routin e Give 1 table t by mouth one time a day for ADHD/ ANTI- NARCO LEPSY 2024 - ADHD/ANTI-N ARCOLEPSY prednisoLON E Acetate Ophthalmic Suspension 1 % aborted 87887 36 RXNORM 1 drop Ophtha lmic three times a day Routin e Insti ll 1 drop in right eye three times a day for OPHTH ALMIC AGENT S 04/29 OPHTHALMIC AGENTS Aspirin Oral Tablet Chewable 81 MG active 10300 2 RXNORM 1 table t Oral one time a day Routin e Give 1 table t by mouth one time a day for Preve ntion 2024 - Prevention Multivitami n-Minerals Oral Tablet active 1 table t Oral one time a day Routin e Give 1 table t by mouth one time a day for suppl ement 2024 - supplement Insulin Lispro Injection Solution aborted n/a n/a Subcut aneous before meals Routin e Injec t as per slidi ng scale : if 111 - 150 = 0 units Less than or equal to 110 give 0 units ; 151 - 200 = 2 units ; 201 - 250 = 4 units ; 251 - 300 = 6cuni ts; 301 - 350 = 8cuni ts Great er than 350 give 10 units call MD if blood gluco se > 350, subcu taneo usly befor e meals for Type 2 diabe jeremias 04/23 Type 2 diabetes Insulin Glargine Subcutaneou s Solution Pen-injecto r 100 UNIT/ML active 89831 0 RXNORM 30 mg Subcut aneous at bedtime Routin e Injec t 30 mg subcu taneo usly at bedti ma for Type 2 diabe jeremias 2024 - Type 2 diabetes diazePAM Oral Tablet 5 MG aborted 1 RXNORM 1 table t Oral as needed PRN Give 1 table t by mouth every 8 hours as neede d for anxie ty 04/26 anxiety Diclofenac Sodium External Gel 1 % aborted 63023 3 RXNORM n/a n/a Topica l four times a day Routin e Apply to affec rin area topic ally four times a day for pain apply to singl e elbow , wrist or hand for hand inclu eric palm/ finge rs/ back of hand 05/02 pain Sodium Chloride Inhalation Nebulizatio n Solution 7 % active 70396 3 RXNORM 1 inhal ation Inhala tion two times a day Routin e 1 inhal ation inhal e orall y via nebul izer two times a day for suppl ement 2024 - supplement Insulin Lispro Injection Solution active n/a n/a Subcut aneous before meals Routin e Injec t as per slidi ng scale : if 111 - 150 = 0 units Less than or equal to 110 give 0 units ; 151 - 200 = 2 units ; 201 - 250 = 4 units ; 251 - 300 = 6 units ; 301 - 350 = 8 units Great er than 350 give 10 units call MD if blood gluco se > 350, subcu taneo usly befor e meals for Type 2 diabe jeremias 2024 - Type 2 diabetes Melatonin Oral Tablet 5 MG active 73921 2 RXNORM 1 table t Oral at bedtime Routin e Give 1 table t by mouth at bedti ma for insom felix 2024 - insomnia Morphine Sulfate Oral Tablet 15 [place] [address] 2 RXNORM 1 table t Oral as needed PRN Give 1 table t by mouth every 8 hours as neede d for pain for 10 Days 05/03 pain Acetaminoph en Oral Tablet 325 MG active 44493 2 RXNORM 2 table t Oral as needed PRN Give 2 table t by mouth every 6 hours as neede d for Pain Total Dose 650mg * *DO NOT EXCEE D 3 grams in 24 hours AND Give 2 table t by mouth every 6 hours as neede d for [place] ratur e great er than 101.F Total Dose 650mg * *DO NOT EXCEE D 3 grams in 24 hours 2024 - Pain 62436 2 RXNORM 2 table t Oral as needed PRN Give 2 table t by mouth every 6 hours as neede d for Pain Total Dose 650mg * *DO NOT EXCEE D 3 grams in 24 hours AND Give 2 table t by mouth every 6 hours as neede d for [place] ratur e great er than 101.F Total Dose 650mg * *DO NOT EXCEE D 3 grams in 24 hours 2024 - Temperature greater than 101.F Milk of Magnesia Oral Suspension 400 MG/5ML active 15071 7 RXNORM 30 ml Oral as needed PRN Give 30 ml by mouth every 24 hours as neede d for Const ipati on Give 30ml by mouth if no bowel movem ent in 3 days (9 Shift s). 2024 - Constipatio n Bisacodyl Rectal Suppository 10 MG active 9 RXNORM 1 suppo sitor y Rectal as needed PRN Inser t 1 suppo sitor y recta lly every 24 hours as neede d for Const ipati on Give 1 Suppo sitor y (10mg ) via rectu m if no resul ts from Milk of Magne nicolle after 24 hours . 2024 - Constipatio n Fleet Enema Rectal Enema 7-19 GM/118ML active 29078 5 RXNORM 1 appli cator Rectal as needed PRN Inser t 1 appli cator recta lly as neede d for Const ipati on Give 1 appli cator full (118 ml)if no resul ts from Bisac odyl suppo sitor y. 2024 - Constipatio n Glucose Gel 40 % active 84508 4 RXNORM 1 appli catio n Oral as needed PRN Give 1 appli catio n by mouth as neede d for Blood Sugar s less than 60 and consc ious, reche ck blood sugar in 15-mi n if blood sugar is less than 60 may repea t x1 and call 2024 - Blood Sugars Glucagon Emergency Kit 1 MG active 83866 7 RXNORM 1 ml Intram uscula r as needed PRN Injec t 1 ml intra muscu larly as neede d for Blood Sugar s less than 60 and uncon sciou s or unres ponsi ve, and call . 2024 - Blood Sugars Ascorbic Acid Tablet 500 MG active 21659 2 RXNORM 1 table t Oral one time a day Routin e Give 1 table t by mouth one time a day for wound heali ng 2024 - wound healing Potassium Chloride ER Tablet Extended Release 20 [place] [address] 6 RXNORM 2 table t Oral one time a day Routin e Give 2 table t by mouth one time a day for HypoK alemi a for 3 Days 04/29 HypoKalemia diazePAM Oral Tablet 5 MG active 51570 1 RXNORM 1 table t Oral as needed PRN Give 1 table t by mouth every 8 hours as neede d for anxie ty until 05/06 23:59 05/07 anxiety traZODone HCl Oral Tablet 50 MG active 40694 7 RXNORM 1 table t Oral as needed PRN Give 1 table t by mouth every 6 hours as neede d for insom felix until 05/06 23:59 05/07 insomnia Modafinil Oral Tablet 100 MG active 59134 8 RXNORM 2 table t Oral one time a day Routin e Give 2 table t by mouth one time a day for adhd/ narco lepsy 2024 - adhd/narcol epsy Nystatin Powder 430576 UNIT/GM active 78418 6 RXNORM n/a n/a Topica l one time a day Routin e Apply to UNDER BREAS TS topic ally one time a day for MASD for 10 Days 05/09 MASD Diclofenac Sodium External Gel 1 % active 37876 3 RXNORM n/a n/a Topica l four times a day Routin e Apply to affec rin area topic ally four times a day for pain apply to singl e elbow , wrist or hand for hand inclu eric palm/ finge rs/ back of hand AND Apply to LEFT KNEE topic ally four times a day for PAIN MANAG EMENT APPLY 2 GRAMS 2024 - pain 69742 3 RXNORM n/a n/a Topica l four times a day Routin e Apply to affec rni area topic ally four times a day for pain apply to singl e elbow , wrist or hand for hand inclu eric palm/ finge rs/ back of hand AND Apply to LEFT KNEE topic ally four times a day for PAIN MANAG EMENT APPLY 2 GRAMS 2024 - PAIN MANAGEMENT Ascorbic Acid Oral Tablet 500 MG active 60081 3 RXNORM 1 table t Oral one time a day Routin e Give 1 table t by mouth one time a day for Vitam in C Suppl [facility] 2024 - Vitamin C Supplement Iron Oral Tablet 325 MG active 1 table t Oral one time a day Routin e Give 1 table t by mouth one time a day for Iron Suppl [facility] 2024 - Iron Supplement Insurance Providers Plan of Treatment Section Interventions Intervention Code Code System Display Name Proposed D ate Problems Problem # Description Date of onset Resolved Date Code CodeSystem Concern Status 1 MULTIPLE SCLEROSIS, UNSPECIFIED 04/23/20 G35.D ICD-10-CM active 2 PERSONAL HISTORY OF PULMONARY EMBOLISM 04/23/[id number] active 3 PERSONAL HISTORY OF TRANSIENT ISCHEMIC ATTACK (TIA), AND CEREBRAL INFARCTION WITHOUT RESIDUAL DEFICITS 04/23/[address] active 4 ATHEROSCLEROTIC HEART DISEASE OF [place] CORONARY ARTERY WITHOUT ANGINA PECTORIS 04/22/[address] active 5 CHRONIC OBSTRUCTIVE PULMONARY DISEASE, UNSPECIFIED 04/22/[address] active 6 CHRONIC PAIN SYNDROME 04/22/[address] active 7 FIBROMYALGIA 04/22/[address] active 8 HYPOTHYROIDISM, UNSPECIFIED 04/22/[address] active 9 MUSCLE WASTING AND ATROPHY, NOT ELSEWHERE CLASSIFIED, MULTIPLE SITES 04/22/[address] active 10 OBSTRUCTIVE SLEEP APNEA (ADULT) (PEDIATRIC) 04/22/[address] active 11 OTHER SPECIFIED DEPRESSIVE EPISODES 04/22/[address] active 12 POST-TRAUMATIC STRESS DISORDER, UNSPECIFIED 04/22/[address] active 13 PRESENCE OF CARDIAC PACEMAKER 04/22/[address] active 14 TYPE 2 DIABETES MELLITUS WITHOUT COMPLICATIONS 04/22/[address] active 15 UNSPECIFIED ATRIAL FIBRILLATION 04/22/[address] active 16 UNSPECIFIED GLAUCOMA 04/22/[address] active 17 UNSPECIFIED PROTEIN-CALORIE MALNUTRITION 04/22/[address] active 18 URINARY TRACT INFECTION, SITE NOT SPECIFIED 04/22/[address] active Reason for Referral No Reasons for Referral Entered Social History Social History Observation Description Start Date End Date Code Code System Current Smoking Status Tobacco smoking consumption unknown 273589048 SNOMED CT Sex Assigned At Female 1960 05305-2 [facility] Gender Identity Sexual Orientation Vital Signs Code Code System Vitals Name Values and Units Timing Information 9279-1 [facility] Respiratory Rate Value=18.0 Units=/m in 05/03/2025 8462-4 [facility] Blood Pressure-Diastolic Value=57 Un its=mmHg 05/03/2025 8480-6 [facility] Blood Pressure-Systolic Nsqsk=289 Un its=mmHg 05/03/2025 8310-5 [facility] Body Temperature Value=97.8 Units= F 05/03/2025 8867-4 [facility] Heart rate Value=66.0 Units=/min 78619-2 [facility] O2 % BldC Oximetry Value=94.0 Units= % 05/03/2025 60074-2 [facility] Pain Level Value=0.0 05/03/2025 2339-0 [facility] Blood Sugar Epswk=114.0 Units=mg/dL 05/03/2025 71201-2 [facility] Weight Lfuhk=114.0 Units=Lbs 8302-2 [facility] Height Value=60.0 Units=Inches 04/23/2025
--- OUTSIDE RECORDS SUMMARY | 2025-05-03 19:18 | XMS_ITS | Encounter Summary ---
Author Organization [facility] Address [address] [facility] [address] [place] [address] Phone Care Team Providers Care Health Information Assistant Name Role Phone Olvin Harvey MD Primary Care Provide r Olvin Harvey MD Unavailable [phone] Chelsy MclaughlinW Unavailable [email or web address] Ema Dumas DO Primary Care Provider Krissy Hernandez Primary Care Pro vider Martin Green MD Primary Care Provider [phone] Martin Bales MD Unavailable Jose Gallagher MD Unavailable [phone] Ramiro Schmidt MD Unavailable [phone] Enio Starkey MD Unavailable [phone] Kenneth Carter MD Unavailable [phone] Noe Mccann MD Unavailable Unavailable Audra Gutierrez MD Unavailable Edouard Mosley MD Unavailable Martin Green MD Primary Care Provider + Nara Tejada MD Unavailable [phone] Jose Thomas MD Unavailable + [phone] Trish Hammonds MD Unavailable +-- [phone] PayamcharCelina DPM Unavailable [phone] Olvin Harvey MD Unavailable [phone] Fabián Seaman MD Unavailable +[phone] Elizabeth Goode MD Unavailable [phone] Martin Green MD Primary Care Provider + Martin Green MD Primary Care Provider +[phone] Griselda Bello NP Primary Care Provider [phone] Encounter Details Date Type Department Care Team (Late st Contact Info) Description 10/28/2017 Transcribe Orders [facility] 30 [place] [address] Audra Gutierrez MD [address] [place] [phone] [email or web address] Social History Tobacco Use Types Packs/Day Years [...] 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 Not on file documented as of this encounter Plan of Treatment Upcoming Encounters Date Type Department Care Team (Late Contact Info) Description 04/28/2025 Procedure Pass Non-Invasive Cardiology 22 [place] [address] 05/12/2025 1:00 PM EST Appointment Non-Invasive Cardiology [address] [place] [address] Tano Dueñas MD [facility], [address] [address] 07/29/2025 1:00 PM EST Office Visit [facility] [address] 3rd Floor, [address] [place] [address] Minda Nelson DNP [facility], [address] [address] 08/31/2025 11:50 AM EDT Office Visit [facility] [address] [place] [address] Audra Gutierrez MD [address] [place] [address] [email or web address] documented as of this encounter Visit Diagnoses [...] documented as of this encounter Care Teams Health Information Assistant Relationship Specialty Start Date End Date Olvin Harvey MD 22 [facility] 1 [place] [address] [email or web address] PCP - General 12/07/13 06/11/18 Ema Kaufman DO [address] [place] [address] [email or web address] PCP - General 06/12/18 09/22/18 Krissy Hernandez PA [address] [place] [address] [email or web address] PCP - General Internal Medicine 09/23/18 10/04/18 Martin Green MD [address] [place] [address] [email or web address] PCP - General Internal Medicine 10/05/18 02/10/19 Martin Green MD [address] [place] [address] [email or web address] PCP - General Internal Medicine 02/11/19 04/11/20 Martin Green MD [address] [place] [address] [email or web address] PCP - General Internal Medicine 04/12/20 05/25/23 Martin Green MD [address] [place] [phone] [email or web address] PCP - General Internal Medicine 05/26/23 01/25/25 Griselda Bello NP [address] [place] [address] PCP - General Nurse Practitioner 01/26/25 Olvin Harvey MD 22 [facility] 1 [place] [address] [email or web address] Insurance Assigned Provider 04/12/17 02/10/19 Chelsy Mclaughlin, [facility] [address] [facility] 1 [place] [address] [email or web address] 08/08/17 07/05/18 Martin Bales MD [address] [place] [address] [email or web address] Gastroenterology 10/07/18 11/13/20 Jose Gallagher MD [address] [place] [address], [address] [place] [address] [email or web address] Urology 10/07/18 11/13/20 Ramiro Schmidt MD [address] [place] [address], [address] [place] [address] [email or web address] Endocrinology 02/11/19 11/13/20 Enio Starkey MD [address] [place] [address], [address] [place] [address] [email or web address] Cardiology 02/11/19 11/13/20 Kenneth Carter MD [address] [place] [address] Neurology 02/11/19 11/13/20 Noe Mccann MD Ophthalmology 02/11/19 Audra Gutierrez MD [address] [place] [address] 2nd [place] [address] [email or web address] Intensive Care 02/11/19 Edouard Mosley MD [address] [place] [address], [address] [place] [address] [email or web address] Plastic and Reconstructive Surgery 02/11/19 Nara Tejada MD [address] [place] [address], [address] [place] [address] [email or web address] Consulting Provider Nephrology 02/11/19 Jose Thomas MD [address] [place] [address] [email or web address] Consulting Provider Infectious Diseases 02/11/19 Trish Hammonds MD [address] [facility], [address] [place] [address] [email or web address] Rheumatology 02/11/19 Celina He DPM [address] [facility], [address] [place] [address] [email or web address] Podiatry 02/11/19 Olvin Harvey MD [address] [facility] Floor 1 [place] [address] [email or web address] Insurance Assigned Provider 04/12/17 03/06/19 Fabián Seaman MD [address] [facility], [address] [place] [address] [email or web address] Insurance Assigned Provider 03/06/19 07/09/19 Elizabeth Goode MD [address] [place] [address] [address] [place] [address] Psychologist 03/27/20 documented as of this encounter Additional Source Comments The information contained in this document represents components of the legal health record. It is not the complete legal health record.[facility]
--- OUTSIDE RECORDS SUMMARY | 2025-05-03 19:18 | XMS_ITS | Encounter Summary ---
Author Organization [facility] Address [address] [place] [address] [address] [place] [address] Phone Care Team Providers Care Reverse Logistics Analyst Name Role Phone Noe Mccann MD Unavailable Unavailable Audra Gutierrez MD Unavailable [phone] Edouard Mosley MD Unavailable Nara Tejada MD Unavailable [phone] Jose Thomas MD Unavailable + [phone] Trish Hammonds MD Unavailable [phone] Celina He DPM Unavailable [phone] Elizabeth Goode MD Unavailable [phone] Martin Green MD Primary Care Provider +[phone] Martin Green MD Primary Care Provider +[phone] Griselda Bello NP Primary Care Provider + [phone] Encounter Details Date Type Department Care Team (Late st Contact Info) Description 01/18/2022 Procedure Pass [facility], Ct Scan - [facility] [address] [place] [address] Social History Tobacco Use Types Packs/Day Years [...] 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 Wish to be (Past 1 Month) No 01/18/2022 4:21 PM EDT Alycia Rockwell RN 2. Non-Specific Active Suici aby Thoughts (Past 1 Month) No 01/18/2022 4:21 PM EDT Jo-Ann Rockwell RN 6. Suicidal Behavior (Lifetime) No 4:21 PM EDT Alycia Rockwell RN documented as of this encounter Plan of Treatment Upcoming Encounters Date Type Department Care Team (Late st Contact Info) Description 04/28/2025 Procedure Pass Non-Invasive Cardiology [address] [place] [address] 05/12/2025 1:00 PM EST Appointment Non-Invasive [place] [address] Tano Dueñas MD 22 [facility], [address] [place] [address] 07/29/2025 1:00 PM EST Office Visit [facility] [address] 3rd Floor, [address] [place] [address] Minda Nelson DNP 22 [facility], [address] [place] [address] 08/31/2025 11:50 AM EDT Office Visit [facility], Allergy [facility] Critical [facility] Medicine [address] [place] [address] Audra Gutierrez MD 10 [facility] 2nd [place] [address] documented as of this encounter Visit Diagnoses [...] documented as of this encounter Care Teams Reverse Logistics Analyst Relationship Specialty Start Date End Date Martin Green MD [address] [place] [address] PCP - General Internal Medicine 04/12/20 05/25/23 Martin Green MD [address] [place] [address] [email or web address] PCP - General Internal Medicine 05/26/23 01/25/25 Griselda Bello, GAEL 238 [place] [address] PCP - General Nurse Practitioner 01/26/25 Noe Mccann MD Ophthalmology 02/11/19 Audra Gutierrez MD [address] [place] [address] [email or web address] Intensive Care 02/11/19 Edouard Mosley MD [address] [place] [address], [facility] [address] [place] [address] Plastic and Reconstructive Surgery 02/11/19 Nara Tejada MD [address] [place] [address], [address] [place] [address] Consulting Provider Nephrology 02/11/19 Jose Thomas MD [address] [place] [address] [email or web address] Consulting Provider Infectious Diseases 02/11/19 Trish Hammonds MD [address] [place] [address], [address] [place] [address] Rheumatology 02/11/19 Celina He DPM [address] [place] [address], [address] [place] [address] [email or web address] Podiatry 02/11/19 Elizabeth Goode MD [address] [place] [address] Psychologist 03/27/20 documented as of this encounter Additional Source Comments The information contained in this document represents components of the legal health record. It is not the complete legal health record.[facility]
--- OUTSIDE RECORDS SUMMARY | 2025-05-03 19:18 | XMS_ITS | Encounter Summary ---
Author Organization [facility] Address [address] [facility] [address] [place] [address] Phone Care Team Providers Care Alternative Energy Engineer Name Role Phone Martin Bales MD Unavailable Jose Gallagher MD Unavailable [phone] Ramiro Schmidt MD Unavailable [phone] Enio Starkey MD Unavailable [phone] Kenneth [place] MD Unavailable Noe Mccann MD Unavailable Unavailable Audra Gutierrez MD Unavailable Edouard Mosley MD Unavailable Nara Tejada MD Unavailable Jose Thomas MD Unavailable [phone] Trish Hammonds MD Unavailable Celina He DPM Unavailable Elizabeth Goode MD Unavailable Martin Green MD Primary Care Provider [phone] Martin Green MD Primary Care Provider Griselda Bello NP Primary Care Provider [phone] Encounter Details Date Type Department Care Team (Late Contact Info) Description 08/13/2020 Procedure Pass [facility], Ct Scan - 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 Not on file documented as of this encounter Plan of Treatment Upcoming Encounters Date Type Department Care Team (Late Contact Info) Description 04/28/2025 Procedure Pass Non-Invasive Cardiology 22 [place] [address] 05/12/2025 1:00 PM EST Appointment Non-Invasive Cardiology [address] [place] [address] Tano Dueñas MD [address] [place] [address] 07/29/2025 1:00 PM EST Office Visit [facility] [address] 3rd Floor, [address] [place] [address] Minda Nelson DNP [address] [place] [address], [address] [address] 08/31/2025 11:50 AM EDT Office Visit [facility], Allergy [facility] Critical Care Medicine 10 [facility] [place] [address] Audra Gutierrez MD [address] [place] [address] [email or web address] documented as of this encounter Care Teams Alternative Energy Engineer Relationship Specialty Start Date End Date Martin Green MD [address] [place] [address] [email or web address] PCP - General Internal Medicine 04/12/20 05/25/23 Martin Green MD [address] [place] [phone] [email or web address] PCP - General Internal Medicine 05/26/23 01/25/25 Griselda Bello NP [address] [place] [address] PCP - General Nurse Practitioner 01/26/25 Martin Bales MD [address] [place] [address] [email or web address] Gastroenterology 10/07/18 11/13/20 Jose Gallagher MD [address] [place] [address], [address] [place] [address] [email or web address] Urology 10/07/18 11/13/20 Ramiro Schmidt MD [address] [place] [address], [address] [place] [address] [email or web address] Endocrinology 02/11/19 11/13/20 Enio Starkey MD [address] [place] [address], [address] [address] [email or web address] Cardiology 02/11/19 11/13/20 Kenneth Carter MD [address] [place] [address] Neurology 02/11/19 11/13/20 Noe Mccann MD Ophthalmology 02/11/19 Audra Gutierrez MD [address] [place] [address] Intensive Care 02/11/19 Edouard Mosley MD [address] [place] [address], [facility] [address] [place] [address] Plastic and Reconstructive Surgery 02/11/19 Nara Tejada MD [address] [place] [address], [address] [place] [address] [email or web address] Consulting Provider Nephrology 02/11/19 Jose Thomas MD [address] [place] [address] [email or web address] Consulting Provider Infectious Diseases 02/11/19 Trish Hammonds MD 22 [facility], [address] [place] [address] [email or web address] Rheumatology 02/11/19 Celina He DPM 22 [facility], [address] [address] [email or web address] Podiatry 02/11/19 Elizabeth Goode MD [address] [place] [address] 200 [place] [address] Psychologist 03/27/20 documented as of this encounter Additional Source Comments The information contained in this document represents components of the legal health record. It is not the complete legal health record.[facility]
--- OUTSIDE RECORDS SUMMARY | 2025-05-03 19:18 | XMS_ITS | Encounter Summary ---
Author Organization [facility] Address [address] [place] [address] [address] [place] [address] Phone Care Team Providers Care Physical Optics Teacher Name Role Phone Noe Mccann MD Unavailable Unavailable Audra Gutierrez MD Unavailable [phone] Edouard Mosley MD Unavailable Nara Tejada MD Unavailable [phone] Jose Thomas MD Unavailable [phone] Trish Hammonds MD Unavailable [phone] Celina He DPM Unavailable [phone] Elizabeth Goode MD Unavailable [phone] Martin Green MD Primary Care Provider [phone] Martin Green MD Primary Care Provider +-[phone] Griselda Bello NP Primary Care Provider + [phone] Encounter Details Date Type Department Care Team (Late st Contact Info) Description 07/26/2022 Procedure Pass [facility], Ct Scan - [facility] [address] [place] [address] Social History Tobacco Use Types Packs/Day Years [...] 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 documented as of this encounter Functional Status * Calculated C-SSRS Risk Score (Lifetime/Recent) Answer Date of Assessment Author No Risk Indicated 07/26/2022 9:23 AM Priscila Mcadams RN * [place] Suicide Severity Rating Scale (Screener/Recent Self-Report) Question [...] Info) Description 04/28/2025 Procedure Pass Non-Invasive Cardiology [place] [address] 05/12/2025 1:00 PM EST Appointment Non-Invasive Cardiology [place] [address] Tano Dueñas MD [address] [place] [address], [address] [address] 07/29/2025 1:00 PM EST Office Visit [facility] [address] 3rd Floor, [address] [place] [address] Minda Nelson DNP [address] [place] [address], [address] [address] 08/31/2025 11:50 AM EDT Office Visit [facility] All[facility] Critical [facility] 10 [place] [address] Audra Gutierrez MD 10 [facility] 2nd [place] [address] documented as of this encounter Visit Diagnoses [...] documented as of this encounter Care Teams Physical Optics Teacher Relationship Specialty Start Date End Date Martin Green MD [address] [place] [address] PCP - General Internal Medicine 04/12/20 05/25/23 Martni Green MD [address] [place] [phone] PCP - General Internal Medicine 05/26/23 01/25/25 Griselda Bello, GAEL [address] [place] [address] PCP - General Nurse Practitioner 01/26/25 Noe Mccann MD Ophthalmology 02/11/19 Audra Gutierrez MD [address] [place] [address] 2nd [place] [address] [email or web address] Intensive Care 02/11/19 Edouard Mosley MD [address] [place] [address] [email or web address] Plastic and Reconstructive Surgery 02/11/19 Nara Tejada MD [address] [place] [address], 3 [place] [address] [email or web address] Consulting Provider Nephrology 02/11/19 Jose Thomas MD [address] [place] [address] [email or web address] Consulting Provider Infectious Diseases 02/11/19 Trish Hammonds MD [address] [place] [address], [address] [address] [email or web address] Rheumatology 02/11/19 Celina He DPM [address] [place] [address], [address] [address] Podiatry 02/11/19 Elizabeth Goode MD [address] [place] [address] Psychologist 03/27/20 documented as of this encounter Additional Source Comments The information contained in this document represents components of the legal health record. It is not the complete legal health record.[facility]
--- OUTSIDE RECORDS SUMMARY | 2025-05-03 19:18 | XMS_ITS | Encounter Summary ---
Author Organization [facility] Address [address] [place] [address] [address] [place] [address] Phone Care Team Providers Care Cook Barbecue Name Role Phone Noe Mccann MD Unavailable Unavailable Audra Gutierrez MD Unavailable Edouard Mosley MD Unavailable Nara Tejada MD Unavailable [phone] Jose Thomas MD Unavailable +- [phone] Trish Hammonds MD Unavailable [phone] Celina He DPM Unavailable [phone] Elizabeth Goode MD Unavailable [phone] Martin Green MD Primary Care Provider +[phone] Martin Green MD Primary Care Provider +-[phone] Griselda Bello NP Primary Care Provider + [phone] Encounter Details Date Type Department Care Team (Late st Contact Info) Description 07/26/2022 Procedure Pass [facility], Ct Scan - [facility] [address] [place] [address] Social History Tobacco Use Types Packs/Day Years [...] 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 documented as of this encounter Functional Status * Calculated C-SSRS Risk Score (Lifetime/Recent) Answer Date of Assessment Author No Risk Indicated 07/26/2022 9:23 AM Priscila Mcadams RN * [place] Suicide Severity Rating Scale (Screener/Recent Self-Report) Question [...] Procedure Pass Non-Invasive Card[place] [place] [address] 05/12/2025 1:00 PM EST Appointment Non-Invasive Card[place] [place] [address] Tano Dueñas MD [address] [place] [address], [address] [address] 07/29/2025 1:00 PM EST Office Visit [facility] [address] 3rd Floor, [address] [place] [address] Minda Nelson DNP [address] [place] [address], [address] [address] 08/31/2025 11:50 AM EDT Office Visit [facility] 10 [place] [address] Audra Gutierrez MD 10 [facility] 2nd [place] [address] documented as of this encounter Visit Diagnoses [...] documented as of this encounter Care Teams Cook Barbecue Relationship Specialty Start Date End Date Martin Green MD [address] [place] [address] PCP - General Internal Medicine 04/12/20 05/25/23 Martin Green MD [address] [place] [phone] [email or web address] PCP - General Internal Medicine 05/26/23 01/25/25 Griselda Bello, GAEL [address] [place] [address] PCP - General Nurse Practitioner 01/26/25 Noe Mccann MD Ophthalmology 02/11/19 Audra Gutierrez MD [address] [place] [address] 2nd [place] [address] [email or web address] Intensive Care 02/11/19 Edouard Mosley MD [address] [place] [address] [email or web address] Plastic and Reconstructive Surgery 02/11/19 Nara Tejada MD [address] [place] [address], 3 [place] [address] [email or web address] Consulting Provider Nephrology 02/11/19 Jose Thomas MD [address] [place] [address] [email or web address] Consulting Provider Infectious Diseases 02/11/19 Trish Hammonds MD [address] [place] [address], [address] [address] [email or web address] Rheumatology 02/11/19 Celina He DPM [address] [place] [address], [address] [address] Podiatry 02/11/19 Elizabeth Goode MD [address] [place] [address] Psychologist 03/27/20 documented as of this encounter Additional Source Comments The information contained in this document represents components of the legal health record. It is not the complete legal health record.[facility]
--- OUTSIDE RECORDS SUMMARY | 2025-05-03 19:19 | XMS_ITS | Encounter Summary ---
Author Organization [facility] Address [address] [facility] [address] [place] [address] Phone Care Team Providers Care Flight Coordinator Name Role Phone Olvin Harvey MD Primary Care Provide r Olvin Harvey MD Unavailable [phone] Chelsy MclaughlinW Unavailable [email or web address] Ema Dumas DO Primary Care Provider Krissy Hernandez Primary Care Pro vider Martin Green MD Primary Care Provider [phone] Martin Bales MD Unavailable Jose Gallagher MD Unavailable [phone] Ramiro Schmidt MD Unavailable [phone] Enio Starkey MD Unavailable [phone] Kenneth Carter MD Unavailable [phone] Noe Mccann MD Unavailable Unavailable Audra Gutierrez MD Unavailable Edouard Mosley MD Unavailable Martin Green MD Primary Care Provider + Nara Tejada MD Unavailable [phone] Jose Thomas MD Unavailable + [phone] Trish Hammonds MD Unavailable +- [phone] Payamchar JoanricardojimboStephanieValerie Janie DPEvelin Unavailable +- [phone] Olvin Harvey MD Unavailable [phone] Fabián Seaman MD Unavailable +[phone] Elizabeth Goode MD Unavailable [phone] Martin Green MD Primary Care Provider + Martin Green MD Primary Care Provider +[phone] Griselda Bello NP Primary Care Provider [phone] Encounter Details Date Type Department Care Team (Late st Contact Info) Description 10/17/2017 Procedure Pass [facility], Ct Scan - [address] [address] Social History Tobacco Use Types Packs/Day Years [...] 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 Not on file Not on file documented as of this encounter Plan of Treatment Upcoming Encounters Date Type Department Care Team (Late st Contact Info) Description 04/28/2025 Procedure Pass Non-Invasive Cardiology [address] [place] [address] 05/12/2025 1:00 PM EST Appointment Non-Invasive Cardiology [address] [place] [address] [place] [address] Tano Dueñas MD [address] [place] [address], [address] [place] [address] 07/29/2025 1:00 PM EST Office Visit [facility] [address] [place] [address] 3rd Floor, [address] [place] [address] Minda [place] DNP 22 [facility], [address] [address] 08/31/2025 11:50 AM EDT Office Visit [facility] All[facility] Critical [facility] 10 [place] [address] Audra Gutierrez MD [address] [place] [address] [email or web address] documented as of this encounter [...] documented as of this encounter Care Teams Flight Coordinator Relationship Specialty Start Date End Date Olvin Harvey MD 22 [facility] 1 [place] [address] [email or web address] PCP - General 12/07/13 06/11/18 Ema Kaufman DO [address] [place] [address] [email or web address] PCP - General 06/12/18 09/22/18 Krissy Hernandez PA 238 [place] [address] [email or web address] PCP - General Internal Medicine 09/23/18 10/04/18 Martin Green MD [address] [place] [address] [email or web address] PCP - General Internal Medicine 10/05/18 02/10/19 Martin Green MD [address] [place] [address] [email or web address] PCP - General Internal Medicine 02/11/19 04/11/20 Martin Green MD 238 [place] [address] [email or web address] PCP - General Internal Medicine 04/12/20 05/25/23 Martin Green MD [address] [place] [phone] [email or web address] PCP - General Internal Medicine 05/26/23 01/25/25 Griselda Bello NP [address] [place] [address] PCP - General Nurse Practitioner 01/26/25 Olvni Harvey MD [address] [address] [email or web address] Insurance Assigned Provider 04/12/17 02/10/19 Chelsy Mclaughlin, [facility] [address] [address] [email or web address] Piano And Organ Refinisher 08/08/17 07/05/18 Martin Bales MD [address] [place] [address] [email or web address] Gastroenterology 10/07/18 11/13/20 Jose Gallagher MD [address] [place] [address], [address] [place] [address] [email or web address] Urology 10/07/18 11/13/20 Ramiro Schmidt MD [address] [place] [address], [address] [place] [address] [email or web address] Endocrinology 02/11/19 11/13/20 [place] [address] [place] [address], [address] [place] [address] [email or web address] Cardiology 02/11/19 11/13/20 Kenneth Carter MD [address] [place] [address] Neurology 02/11/19 11/13/20 Noe Mccann MD Ophthalmology 02/11/19 Audra Gutierrez MD 10 [facility] 2nd [place] [address] [email or web address] Intensive Care 02/11/19 Edouard Mosley MD [address] [place] [address], [address] [place] [address] [email or web address] Plastic and Reconstructive Surgery 02/11/19 Nara Tejada MD [address] [place] [address], [address] [place] [address] [email or web address] Consulting Provider Nephrology 02/11/19 Jose Thomas MD [address] [place] [address] [email or web address] Consulting Provider Infectious Diseases 02/11/19 Trish Hammonds MD [address] [place] [address], [address] [place] [address] Rheumatology 02/11/19 Celina He DPM 22 [facility], [address] [place] [address] Podiatry 02/11/19 Olvin Harvey MD 22 [facility] Floor 1 [place] [address] [email or web address] Insurance Assigned Provider 04/12/17 03/06/19 Fabián Seaman MD 22 [facility], [address] [place] [address] [email or web address] Insurance Assigned Provider 03/06/19 07/09/19 Elizabeth Goode MD [address] [place] [address] [address] [place] [address] Psychologist 03/27/20 documented as of this encounter Additional Source Comments The information contained in this document represents components of the legal health record. It is not the complete legal health record.[facility]
--- OUTSIDE RECORDS SUMMARY | 2025-05-03 19:19 | XMS_ITS | Encounter Summary ---
Author Organization [facility] Address 399 [facility] [address] [place] [address] Phone Care Team Providers Care Dispersion Mixer Name Role Phone Olvin Harvey MD Primary Care Provide r Olvin Harvey MD Unavailable [phone] Chelsy MclaughlinW Unavailable [email or web address] Ema Dumas DO Primary Care Provider Krissy Hernandez Primary Care Pro vider Martin Green MD Primary Care Provider [phone] Martin Bales MD Unavailable Jose Gallagher MD Unavailable [phone] Ramiro Schmidt MD Unavailable Enio Starkey MD Unavailable [phone] Kenneth Carter MD Unavailable [phone] Noe Mccann MD Unavailable Unavailable Audra Gutierrez MD Unavailable Edouard Mosley MD Unavailable Martin Green MD Primary Care Provider + Nara Tejada MD Unavailable [phone] Jose Thomas MD Unavailable + [phone] Trish Hammonds MD Unavailable [phone] PayamcharCelina DPM Unavailable +- [phone] Olvin Harvey MD Unavailable [phone] Fabián Seaman MD Unavailable +[phone] Elizabeth Goode MD Unavailable [phone] Martin Green MD Primary Care Provider + Martin Green MD Primary Care Provider +[phone] Griselda Bello MANAGEMENT PSYCHOLOGIST Primary Care Provider [phone] Encounter Details Date Type Department Care Team (Latest Contact Info) Description 10/01/2017 Transcribe Orders [facility] [address] [address] Jose Gallagher MD [facility], [address] [place] [address] Urinary frequency (Primary Dx) Social History Tobacco [...] 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 Not on file Not on file documented as of this encounter Plan of Treatment Upcoming Encounters Date Type Department Care Team (Late st Contact Info) Description 04/28/2025 Procedure Pass Non-Invasive Cardiology [address] [place] [address] 05/12/2025 1:00 PM EST Appointment Non-Invasive Cardiology [address] [place] [address] Tano Dueñas MD 22 [facility], [address] [place] [address] 07/29/2025 1:00 PM EST Office Visit [facility] 22 [facility] 3rd Floor, [address] [place] [address] Minda [place] DNP 22 [facility], [address] [place] [address] 08/31/2025 11:50 AM EDT Office Visit [facility] All[facility] Critical [facility] [address] [place] [address] [place] [address] Audra Gutierrez MD [address] [place] [address] 2nd [place] [address] documented as of this encounter Results * (ABNORMAL) Urine culture (10/01/2017 11:27 AM EDT) Specimen Source/ Description URINE URINE URINE [facility] Special Requests None [facility] GRAM STAIN Many WBC'S , Rare GRAM NEGATIVE RODS [facility] Culture/Test >100,000 colony forming units per ml ESCHERICHIA COLI(A) [facility] Report Status 10/03/2017 FINAL [facility] ORGANISM ESCHERICHIA COLI [facility] Urine (Urine) 10/01/2017 11: 27 AM EDT [...] form ing units per ml ESCHERICHIA COLI us Jose Gallagher MD LAB MICROBIOLOGY CULTURE ORDER DARY Final Result Performing Organization Address [facility] Co de Phone Number [address] [address] * (ABNORMAL) Urinalysis with sediment (10/01/2017 11:27 AM EDT) WBC TOO NUMEROUS TO COUNT(A) NONE SEEN /hpf [facility] RBC 0-2(A) NONE SEEN /hpf [facility] URINE EPITHELIAL 0-4(A) NONE SEEN [facility] MUCUS NONE SEEN NONE SEEN /hpf [facility] BACTERIA 2+(A) NONE SEEN [facility] COLOR Yellow Yellow [facility] CLARITY Clear [facility] GLUCOSE Negative Negative [facility] BILI Negative Negative [facility] KETONES Negative Negative [facility] SPECIFIC GRAVITY >1.030 1.005 - 1.030 [facility] BLOOD 3+(A) Negative [facility] PH 6.0 5.0 - 8.0 [facility] Protein-UA 3+(A) Negative [facility] NITRITE Negative Negative [facility] Leukocyte esterase, ur 1+(A) Negative [facility] Urine (Urine) 10/01/2017 11: 27 AM EDT 10/01/2017 11:35 AM EDT us Jose Gallagher MD LAB URINE ORDERABLES Final Res ult Performing Organization Address [facility]/ZIP Co de Phone Number [address] [address] documented in this encounter Visit Diagnoses Diagnosis [...] documented as of this encounter Care Teams Dispersion Mixer Relationship Specialty Start Date End Date Olvin Harvey MD 22 [facility] 1 [place] [address] [email or web address] PCP - General 12/07/13 06/11/18 Ema Kaufman DO [address] [place] [address] [email or web address] PCP - General 06/12/18 09/22/18 Krissy Hernandez PA [address] [place] [address] [email or web address] PCP - General Internal Medicine 09/23/18 10/04/18 Martin Green MD [address] [place] [address] [email or web address] PCP - General Internal Medicine 10/05/18 02/10/19 Martin Green MD [address] [place] [address] [email or web address] PCP - General Internal Medicine 02/11/19 04/11/20 Martin Green MD [address] [place] [address] [email or web address] PCP - General Internal Medicine 04/12/20 05/25/23 Martin Green MD [address] [place] [phone] [email or web address] PCP - General Internal Medicine 05/26/23 01/25/25 Griselda Bello NP [address] [place] [address] PCP - General Nurse Practitioner 01/26/25 Olvin Harvey MD [address] [place] [address] [email or web address] Insurance Assigned Provider 04/12/17 02/10/19 Chelsy Mclaughlin, SENIOR SITE MANAGER 22 [facility] 1 [place] [address] [email or web address] [employer] Floor Walker 08/08/17 07/05/18 Martin Bales MD [address] [place] [address] [email or web address] Gastroenterology 10/07/18 11/13/20 Jose Gallagher MD [address] [place] [address], [address] [place] [address] [email or web address] Urology 10/07/18 11/13/20 Ramiro [place] MD [address] [place] [address], [address] [place] [address] [email or web address] Endocrinology 02/11/19 11/13/20 Enio Starkey MD [address] [place] [address], [address] [place] [address] [email or web address] Cardiology 02/11/19 11/13/20 Kenneth Carter MD [address] [place] [address] Neurology 02/11/19 11/13/20 Noe Mccann MD Ophthalmology 02/11/19 Audra Gutierrez MD [address] [place] [address] Intensive Care 02/11/19 Edouard Mosley MD [address] [place] [address], [address] [place] [address] Plastic and Reconstructive Surgery 02/11/19 Nara Tejada MD [address] [place] [address], [address] [place] [address] Consulting Provider Nephrology 02/11/19 Jose Thomas MD [address] [place] [address] [email or web address] Consulting Provider Infectious Diseases 02/11/19 Trish Hammonds MD [address] [place] [address], [address] [place] [address] [email or web address] [email or web address] 02/11/19 Celina He DPM 22 [facility], [address] [place] [address] Podiatry 02/11/19 Olvin Harvey MD 22 [facility] Floor 1 [place] [address] [email or web address] Insurance Assigned Provider 04/12/17 03/06/19 Fabián Seaman MD [address] [place] [address], [address] [place] [address] Insurance Assigned Provider 03/06/19 07/09/19 Elizabeth Goode MD 301 [facility] 200 [place] [address] Psychologist 03/27/20 documented as of this encounter Additional Source Comments The information contained in this document represents components of the legal health record. It is not the complete legal health record.[facility]
--- OUTSIDE RECORDS SUMMARY | 2025-05-03 19:19 | XMS_ITS | Encounter Summary ---
Author Organization [facility] Address [address] [facility] [address] [place] [address] Phone Care Team Providers Care Custom Dressmaker Name Role Phone Martin Bales MD Unavailable Jose Gallagher MD Unavailable [phone] Ramiro Schmidt MD Unavailable Enio Starkey MD Unavailable [phone] Kenneth Carter MD Unavailable Noe Mccann MD Unavailable Unavailable Audra Gutierrez MD Unavailable Edouard Mosley MD Unavailable Nara Tejada MD Unavailable Jose Thomas MD Unavailable [phone] Trish Hammonds MD Unavailable Celina He DPM Unavailable [phone] Elizabeth Goode MD Unavailable [phone] Martin Green MD Primary Care Provider [phone] Martin Green MD Primary Care Provider Griselda Bello NP Primary Care Provider [phone] Encounter Details Date Type Department Care Team (Late st Contact Info) Description 06/20/2020 Transcribe Orders Virtual Department 30 [place] [address] Martin Green MD [address] [place] [address] Encounter for laboratory testing for COVID-19 virus [...] 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 file Not on file documented as of this encounter Plan of Treatment Upcoming Encounters Date Type Department Care Team (Late Contact Info) Description 04/28/2025 Procedure Pass Non-Invasive Cardiology [address] [place] [address] 05/12/2025 1:00 PM EST Appointment Non-Invasive Cardiology [address] [place] [address] [place] [address] Tano Dueñas MD [address] [place] [address] 07/29/2025 1:00 PM EST Office Visit [facility] [address] [place] [address] 3rd Floor, [address] [address] Minda [place] DNP [address] [place] [address] 08/31/2025 11:50 AM EDT Office Visit [facility] 10 [facility] [place] [address] Audra Gutierrez MD 10 [facility] 2nd [place] [address] [email or web address] documented as of this encounter Results * COVID-19 PCR Order (06/30/2020 9:02 AM EST) COVID Testing Status Sent to [facility] Symptomatic? NO [facility] 06/30/2020 9:02 AM EST 06/30/2020 5:53 PM EST us Martin Green MD LAB GENERAL ORDERABLES Final Re sult Performing Organization Address City/State/[facility] Co de Phone Number [address] [address] documented in this encounter Visit Diagnoses Diagnosis [...] documented as of this encounter Care Teams Custom Dressmaker Relationship Specialty Start Date End Date Martin Green MD [address] [place] [address] 200 [place] [address] [email or web address] PCP - General Internal Medicine 04/12/20 05/25/23 Martin Green MD [address] [place] [phone] [email or web address] PCP - General Internal Medicine 05/26/23 01/25/25 Griselda Bello NP [address] [place] [address] PCP - General Nurse Practitioner 01/26/25 Martin Bales MD [address] [place] [address] Gastroenterology 10/07/18 11/13/20 Jose Gallagher MD [address] [place] [address], [address] [place] [address] Urology 10/07/18 11/13/20 Ramiro Schmidt MD [address] [place] [address], [address] [place] [address] Endocrinology 02/11/19 11/13/20 Enio Starkey MD [address] [facility], [address] [place] [address] [email or web address] Cardiology 02/11/19 11/13/20 Kenneth Carter MD [address] [place] [address] Neurology 02/11/19 11/13/20 Noe Mccann MD Ophthalmology 02/11/19 Audra Gutierrez MD 10 [facility] 2nd [place] [address] [email or web address] Intensive Care 02/11/19 Edouard Mos[place] MD [address] [place] [address], [facility] 202 [place] [address] [email or web address] Plastic and Reconstructive Surgery 02/11/19 Nara Tejada MD [address] [place] [address], [address] [place] [address] [email or web address] Consulting Provider Nephrology 02/11/19 Jose Thomas MD [address] [place] [address] [email or web address] Consulting Provider Infectious Diseases 02/11/19 Trish Hammonds MD [address] [place] [address], [address] [place] [address] Rheumatology 02/11/19 Celina He DPM [address] [place] [address], [address] [place] [phone] Podiatry 02/11/19 Elizabeth Goode MD [address] [place] [address] Psychologist 03/27/20 documented as of this encounter Additional Source Comments The information contained in this document represents components of the legal health record. It is not the complete legal health record.[facility]
--- OUTSIDE RECORDS SUMMARY | 2025-05-03 19:19 | XMS_ITS | Encounter Summary ---
Author Organization [facility] Address [address] [facility] [address] [place] [address] Phone Care Team Providers Care Nursing Home Social Worker Name Role Phone Olvin Harvey MD Primary Care Provide r Olvin Harvey MD Unavailable [phone] Chelsy MclaughlinW Unavailable [email or web address] Ema Dumas DO Primary Care Provider Krissy Hernandez Primary Care Pro vider Martin Green MD Primary Care Provider [phone] Martin Bales MD Unavailable Jose Gallagher MD Unavailable [phone] Ramiro Schmidt MD Unavailable Enio Starkey MD Unavailable [phone] Kenneth Carter MD Unavailable [phone] Noe Mccann MD Unavailable Unavailable Audra Gutierrez MD Unavailable Edouard Mosley MD Unavailable Martin Green MD Primary Care Provider + Nara Tejada MD Unavailable [phone] Jose Thomas MD Unavailable + [phone] Trish Hammonds MD Unavailable [phone] Amandodilia JoanricardojimboStephanieValerie Janie DPEvelin Unavailable [phone] Olvin Harvey MD Unavailable [phone] Fabián Seaman MD Unavailable +[phone] Elizabeth Goode MD Unavailable [phone] Martin Green MD Primary Care Provider + Martin Green MD Primary Care Provider +[phone] Griselda Bello NP Primary Care Provider [phone] Encounter Details Date Type Department Care Team (Late st Contact Info) Description 10/18/2017 Procedure Pass [facility], Ct Scan - [address] [address] Social History Tobacco Use Types Packs/Day Years [...] 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 Not on file documented as of this encounter Plan of Treatment Upcoming Encounters Date Type Department Care Team (Late st Contact Info) Description 04/28/2025 Procedure Pass Non-Invasive Cardiology [address] [place] [address] 05/12/2025 1:00 PM EST Appointment Non-Invasive Cardiology [address] [place] [address] [place] [address] Tano Dueñas MD [address] [place] [address], [address] [place] [address] 07/29/2025 1:00 PM EST Office Visit [facility] [address] [place] [address] 3rd Floor, [address] [place] [address] Minda Nelson DNP [address] [facility], [address] [address] 08/31/2025 11:50 AM EDT Office Visit [facility] 10 [place] [address] Audra Gutierrez MD [address] [place] [phone] [email or web address] documented as of [...] documented as of this encounter Care Teams Nursing Home Social Worker Relationship Specialty Start Date End Date Olvin Harvey MD [address] [facility] 1 [place] [address] [email or web address] PCP - General 12/07/13 06/11/18 Ema Kaufman DO [address] [place] [address] [email or web address] PCP - General 06/12/18 09/22/18 Krissy Hernandez PA [address] [place] [address] [email or web address] PCP - General Internal Medicine 09/23/18 10/04/18 Martin Green MD [address] [place] [address] [email or web address] PCP - General Internal Medicine 10/05/18 02/10/19 Martin Green MD [address] [place] [address] [email or web address] PCP - General Internal Medicine 02/11/19 04/11/20 Martin Green MD [address] [place] [address] [email or web address] PCP - General Internal Medicine 04/12/20 05/25/23 Martin Green MD [address] [place] [phone] [email or web address] PCP - General Internal Medicine 05/26/23 01/25/25 Griselda Bello NP [address] [place] [address] PCP - General Nurse Practitioner 01/26/25 Olvin Harvey MD [address] [address] [email or web address] Insurance Assigned Provider 04/12/17 02/10/19 Chelsy Mclaughlin, [facility] [address] [address] [email or web address] Patient Ombudsperson 08/08/17 07/05/18 Martin Bales MD [address] [place] [address] [email or web address] Gastroenterology 10/07/18 11/13/20 Jose Gallagher MD [address] [place] [address], [address] [place] [address] [email or web address] Urology 10/07/18 11/13/20 Ramiro Schmidt MD [address] [place] [address], [address] [place] [address] [email or web address] Endocrinology 02/11/19 11/13/20 [place] [address] [place] [address], [address] [place] [address] [email or web address] Cardiology 02/11/19 11/13/20 Kenneth Carter MD [address] [place] [phone] Neurology 02/11/19 11/13/20 Noe Mccann MD Ophthalmology 02/11/19 Audra Gutierrez MD [address] [facility] 2nd [place] [address] [email or web address] Intensive Care 02/11/19 Edouard Mosley MD [address] [place] [address], [address] [place] [address] [email or web address] Plastic and Reconstructive Surgery 02/11/19 Nara Tejada MD [address] [place] [address], [address] [place] [address] [email or web address] Consulting Provider Nephrology 02/11/19 Jose Thomas MD [address] [place] [address] [email or web address] Consulting Provider Infectious Diseases 02/11/19 Trish Hammonds MD [address] [place] [address], [address] [place] [address] Rheumatology 02/11/19 Celina He DPM [address] [facility], [address] [place] [address] Podiatry 02/11/19 Olvin Harvey MD [address] [facility] Floor 1 [place] [address] [email or web address] Insurance Assigned Provider 04/12/17 03/06/19 Fabián Seaman MD [address] [facility], [address] [place] [address] [email or web address] Insurance Assigned Provider 03/06/19 07/09/19 Elizabeth Goode MD [address] [place] [address] [address] [place] [address] Psychologist 03/27/20 documented as of this encounter Additional Source Comments The information contained in this document represents components of the legal health record. It is not the complete legal health record.[facility]
--- NOTE | 2025-05-03 19:38 | PC.NURSE ---
PACEMAKER SCANNED WITH [facility]/ABBOT SCANNER PER MD REQUEST. AWAITING FAX.
--- NOTE | 2025-05-03 19:41 | PC.NURSE ---
Addendum entered by Mey Resendiz RN 05/03/25 19:52: per MD, pt will receive another 1500ML NS IVF bolus. Original Note: per MD, order for 250mL IVF bolus in response to low BP. unable to scan initial order. will administer 250ML NS bolus over 1 hour per MD Verbal order.
--- NOTE | 2025-05-03 20:20 | PC.NURSE ---
Late entry- Per ED provider, 1500 mL additional IV fluid ordered for hypotension. Pt received approximately 250 mL before stating she felt SOB and felt like she was drowning. IV fluids stopped, provider aware. Provider stated order for Levophed would be entered to manage pt's BP.
--- NOTE | 2025-05-03 20:41 | PHA.MEDREC ---
Addendum entered by Donn Xiong 05/06/25 14:39: Spoke with pt about her eye drops and pt poor historian on names of those; pt can only confirm she takes one with a Purple, Aqua, Green and or [place] tops. Pt called pharmacy and they were not able to confirm colour of tops for the eye drops but confirmed Brimonidine, Dorzolamide and Latanoprost were the 3 eye drops that were most recently filled and pt confirmed she is taking her Modafinil 100mg tabs 2 (200mg) in the morning and states she never took it BID. Original Note: Pharmacy Consult ? Medication Reconciliation Pharmacy has completed the medication reconciliation.
--- NOTE | 2025-05-03 20:44 | PC.NURSE ---
Report called to Franko MIND READER
[2025-05-03 20:47] LABS: Albumin Level 3.7 g/dL (3.5-5.0)
--- NOTE | 2025-05-03 21:08 | PC.NURSE ---
Pt transferred to ICU by this RN and Mey RN. Unremarkable transport. Pt's BP remained stable during transport on Levophed.
--- NOTE | 2025-05-03 21:39 | PM.CCHP ---
History of Present Illness Date of Service: 05/03/25 Attending physician on admission: Allan Youngblood Chief Complaint: Abnormal labs The patient is a 65-year-old female with a past medical history significant for multiple sclerosis with gradually progressive decline in his functional status with spasm disorder, CAD with stenting of the LAD in 2012 , SDH, chronic kidney disorder, pulmonary embolism on eliquis, ?CVA, type 2 diabetes, chronic pain disorder on recent admission 04/18/25 to 04/22/25 with 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 Patient reports facility has been monitoring hemoglobin due to being low for a couple days.? Per chart review hemoglobin the last past 3 days 6.8 to 6.9. Patient is on Eliquis for previous diagnosis of PE and new diagnosis of paroxysmal atrial fibrillation in last admission.? Denies hemoptysis and changes in stool color Laboratory data significant for hemoglobin 7.5, hematocrit 24.3, BUN 33, creatinine 2.97, proBNP [address]000, and lactate 2.1 Imaging: My personal interpretation: Chest CT: ?Trace right pleural effusion, no evidence of acute infection Bilateral Venous duplex:? No evidence of DVT.? Left Duarte's cyst. Lower leg superficial soft tissue edema. ED course: Blood pressure in the ED initially normotensive, but later became hypotensive map <60s. ?Patient received a total of 600 mL bolus and 1 unit of RBC in the emergency department. ?Attempted to get a 1L bolus of LR but patient unable to tolerate due to tachypnea. ?Required initiation of Levophed. ? Review of Systems Review of Systems: Yes all other systems are reviewed and are negative [facility] Past Medical History Medical History (Updated 05/03/25 @ 22:56 by Patricia Castillo NP) CAD (coronary artery disease) Heart valve regurgitation Gitelman syndrome Polycystic ovarian syndrome Myocardial infarction Sleep apnea Fibromyalgia COPD (chronic obstructive pulmonary disease) Mild asthma Orthostatic hypotension Raynaud's disease Atrial fibrillation Pulmonary embolism Coronary atherosclerosis HTN (hypertension) Neuropathy Multiple sclerosis Chronic pain syndrome PTSD (post-traumatic stress disorder) Opioid dependence Depression Hypercalcemia Elevated cholesterol Type 2 diabetes mellitus Thyroid nodule Hypothyroid Surgical History Surgical History Hx of reduction mammoplasty Hx of tubal ligation Hx of hernia repair History of rectal surgery History of colon resection S/P panniculectomy History of lobectomy of thyroid Hx of hysterectomy Hx of appendectomy Hx of dilation and curettage Hx of heart artery stent Social History Social History Household Members: Family Household Members Other:: son Housing: House Are you a primary hospice home care coordinator to a significant other at home: No Do you presently have visiting nurse or other home services: No Patient Tobacco Use Status: Former Tobacco user Tobacco use type: Cigarette Smoked in Last 30 Days: No Patient Interested in Nicotine Replacement: No Second Hand Smoke Exposure: No Use of substances other than those prescribed or required for medical reasons: No Currently Displaying Signs/Symptoms of Drug Intoxication Withdrawal: No Have you been hit, kicked, punched, or otherwise hurt by someone within the past year? If so, by whom?: No Do you feel safe in your current relationship?: Yes Is there a partner from a previous relationship who is making you feel unsafe now?: No Are you made to feel afraid or neglected: No Advance Directives: No Advance Directives Information Provided: No Advance Directives on File: Yes Do you have a plan to hurt others: No Plan Recently lost weight without trying: No Nutrition Risks: No Nutritional Risk Patient : No : No Poor oral hygiene: No service: No Meds Allergies Allergy/AdvReac Type Severity Reaction Status Date / Time diphenhydramine (From Allergy Severe Anaphylaxis Verified 05/03/25 14:31 Benadryl) Penicillins Allergy Severe Anaphylaxis Verified 05/03/25 14:31 Sulfa (Sulfonamide Allergy Severe Anaphylaxis Verified 05/03/25 14:31 Antibiotics) Cephalosporins Allergy Intermediate shortness Verified 05/03/25 14:31 of breath (can take cephalexin) clarithromycin Allergy Intermediate Shortness Verified 05/03/25 14:31 of Breath gabapentin Allergy Intermediate Confusion Verified 05/03/25 14:31 hydrochlorothiazide (From Allergy Intermediate Shortness Verified 05/03/25 14:31 Hyzaar) of Breath levofloxacin (From Levaquin) Allergy Intermediate dizziness/h Verified 05/03/25 14:31 eadache/ulices sea losartan (From Cozaar) Allergy Intermediate Shortness Verified 05/03/25 14:31 of Breath metformin Allergy Intermediate strange Verified 05/03/25 14:31 feeling amoxicillin (From Augmentin) Allergy Unknown Unknown Verified 05/03/25 14:31 clavulanic acid (From Allergy Unknown Unknown Verified 05/03/25 14:31 Augmentin) duloxetine (From Cymbalta) Allergy Unknown Unknown Verified 05/03/25 14:31 fluoxetine Allergy Unknown Unknown Verified 05/03/25 14:31 NSAIDS (Non-Steroidal Allergy Unknown Unknown Verified 05/03/25 14:31 Anti-Inflamma pregabalin AdvReac Intermediate Dizziness Verified 05/03/25 14:31 doxycycline AdvReac Mild Gastrointestinal Verified 05/03/25 14:31 Upset Active Medications: Current Medications Norepinephrine Bitartrate (Levophed) 8 mg in 250 mls @ 0 mls/hr IVCONT .Q0M ROBERT; Protocol Last Titration: 05/03/25 20:28 Dose: 0.07 mcg/kg/min, 9.7 mls/hr Home Medications ?Medication ?Instructions ?Recorded ?Confirmed ?Last Taken ?Type amantadine HCl 100 mg capsule 100 mg PO BID 12/13/22 05/03/25 Unknown History apixaban 5 mg tablet (Eliquis) 5 mg PO BID 12/13/22 05/03/25 Unknown History Held on 04/22/25. Instructions: Resume on 04/23/25. Resume from a.m. tomorrow brimonidine 0.2 % eye drops 1 drp ophthalmic (eye) BID 12/13/22 05/03/25 Unknown History dorzolamide 2 % eye drops 1 drp ophthalmic (eye) BID 12/13/22 05/03/25 Unknown History modafinil 100 mg tablet 100 mg PO BID 12/13/22 05/03/25 Unknown History montelukast 10 mg tablet 10 mg PO DAILY 12/13/22 05/03/25 Unknown History promethazine 25 mg tablet 25 mg PO Q6H PRN Nausea 12/13/22 05/03/25 Unknown History sildenafil (pulm.hypertension) 20 20 mg PO TID 12/13/22 05/03/25 Unknown History mg tablet albuterol sulfate 2.5 mg/3 mL 2.5 mg inhalation Q6H PRN Wheezing 04/17/25 05/03/25 Unknown History (0.083 %) solution for nebulization aspirin 81 mg chewable tablet 81 mg PO DAILY 04/17/25 05/03/25 Unknown History bisacodyl 10 mg rectal suppository 10 mg IA DAILY PRN Constipation 04/17/25 05/03/25 Unknown History camphor-menthol 0.5 %-0.5 % lotion 1 appl topical BID PRN Itching 04/17/25 05/03/25 Unknown History dextroamphetamine-amphetamine 30 30 mg PO DAILY 04/17/25 05/03/25 Unknown History mg tablet (Adderall) dextrose 40 % oral gel (Glucose 15 g PO Q15M PRN fsbs < 50 and 04/17/25 05/03/25 Unknown History Gel) able to swallow diazepam 5 mg tablet 5 mg PO Q8H PRN Anxiety 04/17/25 05/03/25 Unknown History diclofenac sodium 1 % topical gel 2 g topical QID 04/17/25 05/03/25 Unknown History diltiazem HCl 300 mg capsule,24 300 mg PO DAILY 04/17/25 05/03/25 Unknown History hr,extended release dulaglutide 3 mg/0.5 mL 3 mg subcut TU@0900 04/17/25 05/03/25 Unknown History subcutaneous pen injector (Trulicity) dupilumab 300 mg/2 mL subcutaneous 300 mg subcut Q2W 04/17/25 05/03/25 Unknown History syringe (Dupixent) empagliflozin 10 mg tablet 10 mg PO DAILY 04/17/25 05/03/25 Unknown History (Jardiance) Held on 04/22/25. Instructions: Resume on 04/28/25. Resume after PCP follow-up as she is prone to recurrent UTIs glucagon 1 mg solution for 1 mg subcut Q20M PRN fsbs beloq 60 04/17/25 05/03/25 Unknown History injection and unable to swallow insulin glargine 100 unit/mL (3 30 unit subcut BEDTIME 04/17/25 05/03/25 Unknown History mL) subcutaneous pen (Lantus Solostar U-100 Insulin) insulin lispro 100 unit/mL 1 sliding scale dose subcut TIDAC 04/17/25 05/03/25 Unknown History subcutaneous solution (Humalog U-100 Insulin) ketorolac 0.5 % eye drops 1 drp ophthalmic-Right TID 04/17/25 05/03/25 Unknown History latanoprost 0.005 % eye drops 1 drp ophthalmic (eye) BEDTIME 04/17/25 05/03/25 Unknown History levothyroxine 75 mcg tablet 75 mcg PO DAILY@0600 04/17/25 05/03/25 Unknown History lidocaine 4 % topical patch 2 patch topical DAILY 04/17/25 05/03/25 Unknown History magnesium hydroxide 400 mg/5 mL 30 ml PO BEDTIME PRN Constipation 04/17/25 05/03/25 Unknown History oral suspension (Milk of Magnesia) melatonin 5 mg tablet 5 mg PO BEDTIME 04/17/25 05/03/25 Unknown History metoprolol succinate 50 mg 50 mg PO DAILY 04/17/25 05/03/25 Unknown History tablet,extended release 24 hr Held on 04/22/25. Instructions: Resume on 04/25/25. Resume based on clinical status at [facility] multivitamin with minerals 1 tab PO DAILY 04/17/25 05/03/25 Unknown History nystatin 100,000 unit/gram topical 1 appl topical BID 04/17/25 05/03/25 Unknown History powder pantoprazole 20 mg tablet,delayed 20 mg PO DAILY@0630 04/17/25 05/03/25 Unknown History release prednisolone acetate 1 % eye 1 drp ophthalmic-Right TID 04/17/25 05/03/25 Unknown History drops,suspension sodium chloride 7 % for 1 inh inhalation BID 04/17/25 05/03/25 Unknown History nebulization sodium phosphates 19 gram-7 118 ml IA BEDTIME PRN Constipation 04/17/25 05/03/25 Unknown History gram/118 mL enema (Fleet Enema) spironolactone 25 mg tablet 25 mg PO DAILY 04/17/25 05/03/25 Unknown History thiamine HCl (vitamin B1) 100 mg 100 mg PO DAILY 04/17/25 05/03/25 Unknown History tablet torsemide 20 mg tablet 40 mg PO DAILY 04/17/25 05/03/25 Unknown History trazodone 50 mg tablet 50 mg PO Q6H PRN Insomnia 04/17/25 05/03/25 Unknown History Physical Exam Exam: Exam: ?General:? Alert oriented x3 no acute distress.? Speaking full sentences.? Speech is well articulated, thought process is coherent.? Following all commands. ?HEENT:? Head is normocephalic, atraumatic, pupils equal round reactive to light accommodation bilaterally.? Extraocular movements appear intact.? Buccal mucosa is dry, Neck is supple without lymphadenopathy. ?Cardiac:? Clear S1-S2, no murmurs rubs or gallops. ?Pulmonary:? Clear to auscultation, no wheezes, rales or rhonchi. ?Abdomen:? ?Abdomen soft, diffuse tenderness, non-distended. No guarding/ rebound tenderness. Normal bowel sounds. No pulsatile mass. No hepatosplenomegaly. ?Musculoskeletal:? Moving all 4 extremities upon request a major joints, there is no crepitus or tenderness.? The strength is 5/5 bilaterally and throughout all 4 extremities.? Gait not assessed at this point. ?Neurologic:? cranial nerves 2-12 are grossly intact.? No focal deficits noted.Motor strength as above.?? ?Skin:?BLE trace edema. ? No ulcers. Vascular:? 2+ pulses upper and lower extremities distally.? Vital Signs: Vital Signs: Last Vital Signs Temp 97.6 F 05/03/25 19:14 Pulse 59 05/03/25 20:33 Resp 15 05/03/25 19:14 BP 115/53 L 05/03/25 20:33 Pulse Ox 95 05/03/25 18:25 O2 Del Method Room Air 05/03/25 18:25 BMI result Body Mass Index 29.8 Results Labs 05/04/25 05:12 05/04/25 05:12 Labs: Laboratory Results - last 24 hr 05/03/25 05/03/25 05/03/25 14:51 14:54 20:35 MCV 90.3 MCH 27.9 MCHC 30.9 L RDW 18.5 H Plt Count 231 MPV 10.0 Immature Gran % (Auto) 1.1 H Neut % (Auto) 71.2 Lymph % (Auto) 13.3 L [place] % (Auto) 10.5 Eos % (Auto) 2.9 Baso % (Auto) 1.0 Lymph # (Auto) 0.9 L [place] # (Auto) 0.7 Eos # (Auto) 0.2 Baso # (Auto) 0.1 Abs Immat Gran (auto) 0.08 H Absolute Neuts (auto) 5.0 Absolute Nucleated RBC 0.000 Nucleated RBC % (auto) 0.0 PT 15.6 H INR 1.3 H Anion Gap 15 Estim Creat Clear Calc 17.3 Estimated GFR 16 Random Glucose 87 Calcium 8.7 D Magnesium 1.6 Total Bilirubin 0.5 AST 26 ALT 10 Alkaline Phosphatase 259 H Troponin I High Sens 5.8 NT-Pro-B Natriuret Pep 22288.5 H Total Protein 6.6 Albumin 3.7 3.7 Influenza Type A (PCR) NEGATIVE Influenza Type B (PCR) NEGATIVE RSV RNA Qual (PCR) NEGATIVE SARS-CoV-2 RNA (RT-PCR) NEGATIVE Blood Type A Positive Antibody Screen NEGATIVE Crossmatch See Detail Imaging Radiologist's Impressions: Impressions Chest X-Ray 05/03/25 15:10 IMPRESSION: 1. Small right effusion. Otherwise no active lung disease. 2. Single lead left pacer device present. Electronically signed by: Ghanshyam Aguilar MD 05/03/2025 03:19 PM EST RP Venous Duplex 05/03/25 16:01 IMPRESSION: No evidence of deep venous thrombosis involving the bilateral lower extremities. Left Duarte's cyst. Lower leg superficial soft tissue edema. Electronically signed by: Yehuda Woodall MD 05/03/2025 04:36 PM EST RP Assessment and Plan (1) Anemia: Status: Acute (2) Acute hypotension: Status: Acute (3) PREM (acute kidney injury): Status: Resolved (4) Type 2 diabetes mellitus: Status: Acute (5) Abdominal pain: Status: Acute (6) Edema, lower extremity: Status: Acute Plan 65-year-old female with a past medical history significant for multiple sclerosis with gradually progressive decline in his functional status with spasm disorder, CAD with stenting of the LAD in 2012 , SDH, chronic kidney disorder, pulmonary embolism on eliquis, ?CVA, type 2 diabetes, chronic pain disorder, paroxysmal atrial fibrillation and tachy-dalia syndrome s/p pacemaker admitted to ICU for management of hypotension Neuro:?? No acute issues? Cardiac:? Hypotension:? No evidence of sepsis, lactic is elevated to 2.1, but I believe this is due to dehydration.? No evidence of acute infection.? From chart review noted that patient blood pressure is tend to run on the soft side.? With systolics ranging 90s to 100s. ?MAP goal >60.? Wean off vasopressor as tolerated. Bilateral lower extremity edema: ?DVT studies negative for DVTs. ?On assessment patient does not appear to have cellulitis or infectious process. ?Echocardiogram from 04/20/2025 showing Normal LV EF of 55-60%. ?Patient has no JVD, do not believe this is active heart failure exacerbation. ?Underlying history of paroxysmal atrial fibrillation and tachy-dalia syndrome s/p pacemaker 04/21/2025, due to anemia we will hold Eliquis for tonight.? Reassess need for Eliquis tomorrow. Pulmonary:? ?No acute issues Renal:? PREM- ? related to hypoperfusion, nonoliguric.? We will attempt another LR bolus.? Continue to check renal induces and urine output GI:?? Nonspecific abdominal pain: ?Patient reports diffuse abdominal pain, with no significant rebound tenderness.? We will obtain abdominal CT. Endo:??? Underlying history Diabetes mellitus - ?patient reports she is only on Trulicity, states she usually refuses insulin.? Patient is NPO due to abdominal pain. ?Continue q.6 hour poc ID:?? No acute issues Heme/Onc:? Normocytic anemia:? Patient denies acute blood loss, no changes in bowel movement pattern color.? She is on Eliquis.? We will send occult blood, iron profile, b12, folate labs.ABD CT pending. Psych:? polysubstance abuse,? patient is supposed ot be on methadone, ? admits to using cocaine prior to arrival.? Urine tox positive for? fentanyl and cocaine.? Will place addiction med consult Miscellaneous: ? no acute issues? Prophylaxis:? PNEUMATIC BOOTS.? ELIQUIS ON HOLD Diet: ? NPO, okay to have ice chips? Critical care time: 30 MIN CODE: FULL CODE Confirmed with the patient.? Patient has a DNR/DNI MOLST form in chart, states she is no longer wants to be DNR/DNI would like to switch code status to FULL CODE Case discussed with attending Dr Youngblood
[2025-05-03 21:41] LABS: ABG HCO3 17 mmol/L (22-26)
[2025-05-03 22:00] LABS: Hematocrit 27.5 % (37.0-47.0); Hemoglobin 8.5 g/dl (12.0-16.0); Mean Corpuscular HGB Conc 30.9 g/dl (31.0-35.0); Mean Corpuscular Hemoglobin 27.8 pg (27.0-33.0); Mean Corpuscular Volume 89.9 fL (80.0-98.0); NRBC Abs Auto 0.020 X10*3/uL (0.0-0.012); NRBC Pct Auto 0.2 /100WBC (0.0-0.2); Platelet Count 256 X10*3/uL (160-400); Red Blood Count 3.06 X10*6/uL (4.20-5.50); White Blood Count 9.7 X10*3/uL (4.8-10.8)
[2025-05-03 22:14] LABS: Anion Gap 18 (12-20); Blood Urea Nitrogen 31 mg/dL (9-16); Calcium 8.8 mg/dL (8.4-10.2); Carbon Dioxide 18 mmol/L (22-29); Chloride 105 mmol/L (96-108); Creatinine Clr Calc Pharmacy 18.1; Estimated Glomerular Filt Rate 17; Magnesium 1.6 mg/dL (1.6-2.6); Potassium 3.7 mmol/L (3.3-5.1); Sodium 137 mmol/L (135-145)
[2025-05-03] MEDS: Lactated Ringers 1,000 ML 999 ML IV (22:41)
[2025-05-03 23:38] LABS: Appearance Urine Clear; Glucose Urine UA Negative (Negative); PH 5.0 (5.0-9.0); Specific Gravity - Urine 1.010 (1.005-1.025); UMIC TRIGGER UACC YES
[2025-05-03 23:46] LABS: UACC Culture Trigger YES
[2025-05-03 23:56] LABS: Glucose, Whole Blood 101 mg/dL (60-115)
[2025-05-03 23:57] LABS: Reflex Lactate? Lactic Acid Added
[2025-05-04] VITALS (25 sets, daily range): BP systolic 78–131; BP diastolic 44–59; PULSE 50–60; RESP 13–18; TEMP 36.3–37.1; O2SAT 95–100; BMI 29.6
[2025-05-04 00:43] LABS: ~Lactic Acid-LAB USE ONLY 2.2 mmol/L (0.5-2.0)
[2025-05-04 02:17] LABS: Reflex Lactate? 2 Y
--- NOTE | 2025-05-04 02:49 | PC.NURSE ---
ADMIT TO 254-1 APPROX 9PM..ALERT..ORIENTED X3..RESPIRATIONS EASY..LEVOPHED DRIP 0.07 MCG/KG/MIN ON ADMISSION FROM ER..BP STABLE...V-.PACED RHYTHM TO ATRIAL FIB...LR 1000ml bolus infused per provider/aug..levophed drip weaned off but sbp decreased to 80's..levophed drip resumed 0.03 mcg/kg/min per provider with stable bp...PER ER REPORT DIFFICULTY OBTAIN SAO2 WAVEFORM/READING DUE TO CYRIL'S ....(+) PLETH VIA FINGER BUT UNABLE TO OBTAIN SAO2 READING..FOREHEAD PROBE IN PLACE WITH (+) PLETH AND SAO2 66%..O2 3 L/M APPLIED WITH UNCHANGED READING..ASYMPTOMATIC..ABG'S DRAWN BY RT AND REVIEWED BY PROVIDER...PORTABLE SAO2 MONITOR WITH EAR PROBE PROVIDED BY RT..SAO2=99% VIA EAR PROBE....TRANSPORTED FOR CT ABDOMEN W/O INCIDENT..PER PROVIDER DIABETIC DIET ORDERED...PATIENT REFUSED FLU VACCINE AND SEQUENTIALS..COCCYX WOUND W/O DRAINAGE..DENIED DISCOMFORT..REFUSED FOAM DRESSING TO SITE.. I'M COMFTORABLE AND THEY CAN DEAL WITH IT IN THE MORNING PER PATIENT..PURWIK EXTERNAL CATHETER DEEP YELLOW URINE..RESTFUL..DENIED NAUSEA OR PAIN
[2025-05-04 02:56] LABS: ~Lactic Acid-LAB USE ONLY 1.1 mmol/L (0.5-2.0)
[2025-05-04 05:20] LABS: VBG HCO3 18 mmol/L (22-26); VBG O2 % Saturation 78.0 %
[2025-05-04 05:22] LABS: MANUAL DIFF FLAG NO
[2025-05-04 05:23] LABS: Hematocrit 24.8 % (37.0-47.0); Hemoglobin 8.0 g/dl (12.0-16.0); Imm Gran Abs Auto 0.08 X10*3/uL (0.00-0.03); Imm Gran Pct Auto 0.9 % (0.0-0.4); Lymphocytes Absolute Auto 0.8 X10*3/uL (1.2-4.9); Mean Corpuscular HGB Conc 32.3 g/dl (31.0-35.0); Mean Corpuscular Hemoglobin 28.3 pg (27.0-33.0); Mean Corpuscular Volume 87.6 fL (80.0-98.0); NRBC Abs Auto 0.020 X10*3/uL (0.0-0.012); NRBC Pct Auto 0.2 /100WBC (0.0-0.2); Platelet Count 230 X10*3/uL (160-400); Red Blood Count 2.83 X10*6/uL (4.20-5.50); White Blood Count 8.8 X10*3/uL (4.8-10.8)
[2025-05-04 05:37] LABS: Alanine Aminotransferase 9 U/L (0-31); Albumin Level 3.4 g/dL (3.5-5.0); Alkaline Phosphatase 236 U/L (39-117); Anion Gap 14 (12-20); Aspartate Amino Transferase 30 U/L (5-31); Blood Urea Nitrogen 31 mg/dL (9-16); Calcium 8.4 mg/dL (8.4-10.2); Carbon Dioxide 19 mmol/L (22-29); Chloride 107 mmol/L (96-108); Creatinine Clr Calc Pharmacy 19.6; Estimated Glomerular Filt Rate 18; Iron 102 mcg/dL (30-160); Magnesium 1.5 mg/dL (1.6-2.6); Percent Iron Saturation 53 % (15-50); Potassium 3.3 mmol/L (3.3-5.1); Sodium 137 mmol/L (135-145); Total Iron Binding Capacity 191 mcg/dL (228-428); Total Protein 6.0 g/dL (6.5-8.0); Unsaturated Iron Binding 89 ug/dL
[2025-05-04 05:40] LABS: ABG Refer to POC result
[2025-05-04 05:41] LABS: Venous Blood Gas Refer to POC result
[2025-05-04 05:43] LABS: Troponin-I High Sensitivity 9.7 ng/L (<3.5-17.0)
[2025-05-04 06:55] LABS: Folate 13.6 ng/mL (> or = 4.0); Vitamin B12 1485 pg/mL (200-900)
[2025-05-04] MEDS: 0.9 % Sodium Chloride Flush 3 ML SYRINGE IVFLUSH (07:54)
[2025-05-04 08:12] LABS: Glucose, Whole Blood 146 mg/dL (60-115)
[2025-05-04] MEDS: Potassium Chloride ER 20 MEQ TAB.ER.PRT 40 MEQ PO (10:01)
--- NOTE | 2025-05-04 10:18 | PM.CCPN ---
Subjective Subjective Date of Service: 05/04/25 Interval History: 65-year-old lady with underlying multiple sclerosis with slow decline of functional status with underlying spasms, CAD status post LAD stent in 2012, SDH, CKD, previously on Eliquis, CVA, diabetes mellitus AFib status pacemaker on 04/21 admitted on 05/03/2025 with acute renal failure UTI, hypotension with poor response to IV fluid resuscitation requiring pressor support. No events overnight. Titrated off pressor support. Critical Care Time (minutes): 0 Physical Exam Vital Signs: Vital Signs: Last Vital Signs Temp 97.5 F 05/04/25 08:00 Pulse 55 05/04/25 10:08 Resp 18 05/04/25 09:00 BP 84/46 L 05/04/25 10:08 Pulse Ox 100 05/04/25 08:00 O2 Del Method Nasal Cannula 05/04/25 09:00 O2 Flow Rate 3 05/04/25 09:00 BMI result Body Mass Index 29.6 Const: General: no acute distress, alert and awake Eyes: Sclerae: sclerae normal EOM: EOMs intact bilaterally Neck: Neck: Yes no lymphadenopathy, Yes trachea midline and Yes supple Resp: Effort & Inspection: normal respiratory effort and no respiratory distress Auscultation: clear to auscultation bilaterally Cardio: Rate: bradycardic Rhythm: regular rhythm Heart sounds: no gallops, no murmurs and no rubs GI: Palpation (GI): Soft to palpation and Other GI palpation findings present ( Nontender) Auscultation: normal bowel sounds Extrem: General: No clubbing, No cyanosis and Yes edema (1+ bilateral) Objective Data Labs 05/04/25 05:12 05/04/25 05:12 Labs: Laboratory Results - last 24 hr 05/03/25 05/03/25 05/03/25 14:51 14:54 20:35 WBC 7.0 RBC 2.69 L Hgb 7.5 L Hct 24.3 L MCV 90.3 MCH 27.9 MCHC 30.9 L RDW 18.5 H Plt Count 231 MPV 10.0 Immature Gran % (Auto) 1.1 H Neut % (Auto) 71.2 Lymph % (Auto) 13.3 L [place] % (Auto) 10.5 Eos % (Auto) 2.9 Baso % (Auto) 1.0 Lymph # (Auto) 0.9 L [place] # (Auto) 0.7 Eos # (Auto) 0.2 Baso # (Auto) 0.1 Abs Immat Gran (auto) 0.08 H Absolute Neuts (auto) 5.0 Absolute Nucleated RBC 0.000 Nucleated RBC % (auto) 0.0 PT 15.6 H INR 1.3 H O2 Saturation ABG pH at Pt Temp ABG pCO2 at Pt Temp ABG pO2 at Pt Temp ABG HCO3 ABG Base Excess (Actual) VBG pH VBG pCO2 VBG pO2 VBG HCO3 VBG O2 Saturation VBG Base Excess Sodium 139 Potassium 3.6 Chloride 106 Carbon Dioxide 22 Anion Gap 15 BUN 33 H Creatinine 2.97 H Estim Creat Clear Calc 17.3 Estimated GFR 16 POC Glucose Random Glucose 87 Lactic Acid Lactic Acid F/U @ 2Hr Lactic Acid F/U @ 4Hr Calcium 8.7 D Phosphorus Magnesium 1.6 Iron TIBC % Saturation Unsat Iron Binding Total Bilirubin 0.5 AST 26 ALT 10 Alkaline Phosphatase 259 H Troponin I High Sens 5.8 NT-Pro-B Natriuret Pep 45543.5 H Total Protein 6.6 Albumin 3.7 3.7 Vitamin B12 Folate Beta-Hydroxybutyrate Urine Color Urine Appearance Urine pH Ur Specific [place] Urine Protein Urine Glucose (UA) Urine Ketones Urine Blood Urine Nitrite Ur Leukocyte Esterase Urine RBC Urine WBC Ur Squamous Epith Cells Urine Bacteria Hyaline Casts Influenza Type A (PCR) NEGATIVE Influenza Type B (PCR) NEGATIVE RSV RNA Qual (PCR) NEGATIVE SARS-CoV-2 RNA (RT-PCR) NEGATIVE Blood Type A Positive Antibody Screen NEGATIVE Crossmatch See Detail 05/03/25 05/03/25 05/03/25 21:38 21:52 21:53 WBC 9.7 RBC 3.06 L Hgb 8.5 L Hct 27.5 L MCV 89.9 MCH 27.8 MCHC 30.9 L RDW 18.5 H Plt Count 256 MPV 10.1 Immature Gran % (Auto) Neut % (Auto) Lymph % (Auto) [place] % (Auto) Eos % (Auto) Baso % (Auto) Lymph # (Auto) [place] # (Auto) Eos # (Auto) Baso # (Auto) Abs Immat Gran (auto) Absolute Neuts (auto) Absolute Nucleated RBC 0.020 H Nucleated RBC % (auto) 0.2 PT INR O2 Saturation Not Reportable ABG pH at Pt Temp 7.44 ABG pCO2 at Pt Temp 25 L ABG pO2 at Pt Temp 115 H ABG HCO3 17 L ABG Base Excess (Actual) -4.9 VBG pH VBG pCO2 VBG pO2 VBG HCO3 VBG O2 Saturation VBG Base Excess Sodium 137 Potassium 3.7 Chloride 105 Carbon Dioxide 18 L Anion Gap 18 BUN 31 H Creatinine 2.83 H Estim Creat Clear Calc 18.1 Estimated GFR 17 POC Glucose Random Glucose 119 H Lactic Acid 2.1 H* Lactic Acid F/U @ 2Hr Lactic Acid F/U @ 4Hr Calcium 8.8 Phosphorus 4.3 Magnesium 1.6 Iron TIBC % Saturation Unsat Iron Binding Total Bilirubin AST ALT Alkaline Phosphatase Troponin I High Sens NT-Pro-B Natriuret Pep Total Protein Albumin Vitamin B12 Folate Beta-Hydroxybutyrate 0.79 H Urine Color Urine Appearance Urine pH Ur Specific [place] Urine Protein Urine Glucose (UA) Urine Ketones Urine Blood Urine Nitrite Ur Leukocyte Esterase Urine RBC Urine WBC Ur Squamous Epith Cells Urine Bacteria Hyaline Casts Influenza Type A (PCR) Influenza Type B (PCR) RSV RNA Qual (PCR) SARS-CoV-2 RNA (RT-PCR) Blood Type Antibody Screen Crossmatch 05/03/25 05/03/25 05/04/25 23:20 23:53 00:12 WBC RBC Hgb Hct MCV MCH MCHC RDW Plt Count MPV Immature Gran % (Auto) Neut % (Auto) Lymph % (Auto) [place] % (Auto) Eos % (Auto) Baso % (Auto) Lymph # (Auto) [place] # (Auto) Eos # (Auto) Baso # (Auto) Abs Immat Gran (auto) Absolute Neuts (auto) Absolute Nucleated RBC Nucleated RBC % (auto) PT INR O2 Saturation ABG pH at Pt Temp ABG pCO2 at Pt Temp ABG pO2 at Pt Temp ABG HCO3 ABG Base Excess (Actual) VBG pH VBG pCO2 VBG pO2 VBG HCO3 VBG O2 Saturation VBG Base Excess Sodium Potassium Chloride Carbon Dioxide Anion Gap BUN Creatinine Estim Creat Clear Calc Estimated GFR POC Glucose 101 Random Glucose Lactic Acid Lactic Acid F/U @ 2Hr 2.2 H* Lactic Acid F/U @ 4Hr Calcium Phosphorus Magnesium Iron TIBC % Saturation Unsat Iron Binding Total Bilirubin AST ALT Alkaline Phosphatase Troponin I High Sens NT-Pro-B Natriuret Pep Total Protein Albumin Vitamin B12 Folate Beta-Hydroxybutyrate Urine Color Yellow Urine Appearance Clear Urine pH 5.0 Ur Specific [place] 1.010 Urine Protein Trace Urine Glucose (UA) Negative Urine Ketones Negative Urine Blood Negative Urine Nitrite Negative Ur Leukocyte Esterase Moderate (2+) H Urine RBC 0-2 Urine WBC 21-50 H Ur Squamous Epith Cells 3-5 Urine Bacteria None Seen Hyaline Casts 3-5 Influenza Type A (PCR) Influenza Type B (PCR) RSV RNA Qual (PCR) SARS-CoV-2 RNA (RT-PCR) Blood Type Antibody Screen Crossmatch 05/04/25 05/04/25 05/04/25 02:31 05:12 05:16 WBC 8.8 RBC 2.83 L Hgb 8.0 L Hct 24.8 L MCV 87.6 MCH 28.3 MCHC 32.3 RDW 18.4 H Plt Count 230 MPV 9.7 Immature Gran % (Auto) 0.9 H Neut % (Auto) 76.8 H Lymph % (Auto) 9.0 L [place] % (Auto) 9.4 Eos % (Auto) 3.1 Baso % (Auto) 0.8 Lymph # (Auto) 0.8 L [place] # (Auto) 0.8 Eos # (Auto) 0.3 Baso # (Auto) 0.1 Abs Immat Gran (auto) 0.08 H Absolute Neuts (auto) 6.8 Absolute Nucleated RBC 0.020 H Nucleated RBC % (auto) 0.2 PT INR O2 Saturation ABG pH at Pt Temp ABG pCO2 at Pt Temp ABG pO2 at Pt Temp ABG HCO3 ABG Base Excess (Actual) VBG pH 7.42 VBG pCO2 28 VBG pO2 55 VBG HCO3 18 L VBG O2 Saturation 78.0 VBG Base Excess -4.6 Sodium 137 Potassium 3.3 Chloride 107 Carbon Dioxide 19 L Anion Gap 14 BUN 31 H Creatinine 2.62 H Estim Creat Clear Calc 19.6 Estimated GFR 18 POC Glucose Random Glucose 188 H Lactic Acid Lactic Acid F/U @ 2Hr Lactic Acid F/U @ 4Hr 1.1 Calcium 8.4 Phosphorus 4.1 Magnesium 1.5 L Iron 102 TIBC 191 L % Saturation 53 H Unsat Iron Binding 89 Total Bilirubin 1.0 AST 30 ALT 9 Alkaline Phosphatase 236 H Troponin I High Sens 9.7 D NT-Pro-B Natriuret Pep 75221.8 H Total Protein 6.0 L Albumin 3.4 L Vitamin B12 1485 H Folate 13.6 Beta-Hydroxybutyrate Urine Color Urine Appearance Urine pH Ur Specific [place] Urine Protein Urine Glucose (UA) Urine Ketones Urine Blood Urine Nitrite Ur Leukocyte Esterase Urine RBC Urine WBC Ur Squamous Epith Cells Urine Bacteria Hyaline Casts Influenza Type A (PCR) Influenza Type B (PCR) RSV RNA Qual (PCR) SARS-CoV-2 RNA (RT-PCR) Blood Type Antibody Screen Crossmatch 05/04/25 08:08 WBC RBC Hgb Hct MCV MCH MCHC RDW Plt Count MPV Immature Gran % (Auto) Neut % (Auto) Lymph % (Auto) [place] % (Auto) Eos % (Auto) Baso % (Auto) Lymph # (Auto) [place] # (Auto) Eos # (Auto) Baso # (Auto) Abs Immat Gran (auto) Absolute Neuts (auto) Absolute Nucleated RBC Nucleated RBC % (auto) PT INR O2 Saturation ABG pH at Pt Temp ABG pCO2 at Pt Temp ABG pO2 at Pt Temp ABG HCO3 ABG Base Excess (Actual) VBG pH VBG pCO2 VBG pO2 VBG HCO3 VBG O2 Saturation VBG Base Excess Sodium Potassium Chloride Carbon Dioxide Anion Gap BUN Creatinine Estim Creat Clear Calc Estimated GFR POC Glucose 146 H Random Glucose Lactic Acid Lactic Acid F/U @ 2Hr Lactic Acid F/U @ 4Hr Calcium Phosphorus Magnesium Iron TIBC % Saturation Unsat Iron Binding Total Bilirubin AST ALT Alkaline Phosphatase Troponin I High Sens NT-Pro-B Natriuret Pep Total Protein Albumin Vitamin B12 Folate Beta-Hydroxybutyrate Urine Color Urine Appearance Urine pH Ur Specific [place] Urine Protein Urine Glucose (UA) Urine Ketones Urine Blood Urine Nitrite Ur Leukocyte Esterase Urine RBC Urine WBC Ur Squamous Epith Cells Urine Bacteria Hyaline Casts Influenza Type A (PCR) Influenza Type B (PCR) RSV RNA Qual (PCR) SARS-CoV-2 RNA (RT-PCR) Blood Type Antibody Screen Crossmatch Progress Note: A&P Assessment and plan (1) Type 2 diabetes mellitus: Status: Acute (2) CAD (coronary artery disease): Status: Acute (3) UTI (urinary tract infection): Status: Acute (4) Acute hypotension: Status: Acute (5) Diabetes mellitus: Status: Acute (6) Atrial fibrillation: Status: Acute Plan Assessment: 65-year-old lady admitted, hypotension, requiring pressor support. Plan: Neuro: No acute issues. Cardiac: Hypotension, resolved, titrated off pressor support. Underlying CADand AFib. Pulmonary: No acute issues. Renal: Acute renal failure, likely secondary to acute, improving. Non oliguric. Continue to monitor renal indices and urine output. Endo: No acute issues. GI: No acute issues. ID: Empiric coverage for UTI. Cultures are pending. Heme/Onc: No acute issues. Psych: No acute issues. Miscellaneous: No acute issues. Prophylaxis: Heparin Diet: Regular Critical care time spent: 45 minutes Quality Stroke Does the patient have a stroke diagnosis?: No VTE Prior VTE?: No VTE Risk Level:: Medical - moderate - high VTE Device Contraindication: N/A - Device Ordered VTE Drug Contraindication: Treatment Not Indicated
--- NOTE | 2025-05-04 10:58 | MHC.CM.PN ---
IMM DELIVERED PT IS IN ICU ON PRESSOR SUPPORT , IN FROM STR AT [facility]. PT USES [facility] FOR MOBILITY. + HCP ON FILE AND VERIFIED. PCP DR. YESENIA SINGH HAMMER SMITH DP: PT WOULD LIKE TO RETURN TO [facility] AT DC TO COMPLETE REHAB, PT WILL NEED A P.T. EVAL FOR INSURANCE AUTH. RETURN REFERRAL SENT TO [facility]. PT WILL NEED BLS TRANSPORT. CM WILL CONTINUE TO FOLLOW FOR ANY CHANGE TO DC PLAN/NEEDS.
[2025-05-04 11:04] LABS: Glucose, Whole Blood 155 mg/dL (60-115)
--- NOTE | 2025-05-04 11:57 | P.CDIM_ITS ---
PROVIDER RESPONSE TEXT: To clarify, the appropriate diagnosis supported by the clinical indicators: CKD, please provide stage: CKD 3b QUERY TEXT: PHYSICIAN'S DOCUMENTATION REQUEST Date of Query: 05/04/2025 11:32 AM EST Patient Name: Bella Shabazz Admit Date: 05/04/2025 Dear Allan Youngblood MD, A review of the medical record indicates additional documentation may be needed. Please review below and update the documentation accordingly. Clinical Indicators: ICU progress note 05/03/25 - Past medical history: CKD Acute renal failure likely secondary to acute, improving. Non oliguric Continue to monitor renal indices and urine output. Cr. 2.97 Gfr 16 Bun 29 H Please clarify which of the following accurately represents the stage of the documented CKD: CKD, please provide stage 1, 2, 3a, 3b, 4 ESRD - CKD V now requiring permanent dialysis and/or transplant Other (explain) Clinically unable to determine (explain) Thank you, Miguelina Daly, CCS, CDIS Use of terms such as suspected, likely, concern for, or probable (associated with a specific diagnosis that is being evaluated, monitored, or treated as if it exists) are acceptable and can be coded in the inpatient setting, when documented at the time of discharge. Please use your independent medical judgment in providing your response. THIS QUERY IS PART OF THE PERMANENT MEDICAL RECORD
--- NOTE | 2025-05-04 13:30 | PC.NURSE ---
Assumed care at 0700. Upon initial assessment, pt A&O x4, comfortably resting. Levophed drip running at 0.03 mcg/kg/min. Levophed stopped at 0841, restarted at 1008, stopped again at 1100. Pt to be transferred to [facility]. Report given to Nunu GARVEY at approx 1300. See MAR and assessments for further details. Pt repositioned q2hr as tolerated. Fall & safety precautions in place.
[2025-05-04 14:14] LABS: OBS Int Ctl Valid YES; OBS1 NEGATIVE (NEGATIVE)
[2025-05-04] MEDS: Lactated Ringers 1,000 ML 125 ML IVCONT ×2 (15:47→23:43)
--- NOTE | 2025-05-04 16:12 | PM.EVENT ---
Event Note Date of Service: 05/04/25 Event Note: Chart reviewed patient examined. Agree with H&P and plan as outlined per critical Care Time Spent With Patient Time: Total time managing care of this patient today ____ minutes.
[2025-05-04 16:21] LABS: Glucose, Whole Blood 188 mg/dL (60-115)
[2025-05-04] MEDS: Brimonidine Tartrate 0.2% Oph 5 ML BOTTLE 1 DROP EYE-BOTH (21:02)
[2025-05-04] MEDS: prednisoLONE Acetate 1 % Oph Susp 5 ML DRPBTL 1 DROP EYE-RIGHT (21:02)
[2025-05-04 21:05] LABS: Glucose, Whole Blood 137 mg/dL (60-115)
[2025-05-05] VITALS (8 sets, daily range): BP systolic 90–121; BP diastolic 50–64; PULSE 50–52; RESP 16–18; TEMP 36.1–36.7; O2SAT 92–99; BMI 31.4
[2025-05-05] MEDS: 0.9 % Sodium Chloride Flush 3 ML SYRINGE IVFLUSH ×2 (00:05→15:24)
[2025-05-05 07:20] LABS: MANUAL DIFF FLAG NO
[2025-05-05 07:28] LABS: Hematocrit 26.1 % (37.0-47.0); Hemoglobin 8.2 g/dl (12.0-16.0); Imm Gran Abs Auto 0.09 X10*3/uL (0.00-0.03); Imm Gran Pct Auto 1.1 % (0.0-0.4); Lymphocytes Absolute Auto 1.0 X10*3/uL (1.2-4.9); Mean Corpuscular HGB Conc 31.4 g/dl (31.0-35.0); Mean Corpuscular Hemoglobin 27.9 pg (27.0-33.0); Mean Corpuscular Volume 88.8 fL (80.0-98.0); NRBC Abs Auto 0.000 X10*3/uL (0.0-0.012); NRBC Pct Auto 0.0 /100WBC (0.0-0.2); Platelet Count 238 X10*3/uL (160-400); Red Blood Count 2.94 X10*6/uL (4.20-5.50); White Blood Count 8.0 X10*3/uL (4.8-10.8)
[2025-05-05 07:41] LABS: Albumin Level 3.3 g/dL (3.5-5.0); Blood Urea Nitrogen 30 mg/dL (9-16); Calcium 8.6 mg/dL (8.4-10.2); Creatinine Clr Calc Pharmacy 22.4; Estimated Glomerular Filt Rate 21; Magnesium 1.7 mg/dL (1.6-2.6)
[2025-05-05 07:45] LABS: Glucose, Whole Blood 122 mg/dL (60-115)
[2025-05-05] MEDS: Lactated Ringers 1,000 ML 125 ML IVCONT ×3 (07:54→23:59)
[2025-05-05] MEDS: Amphetamine Mixed Salts 10 MG TABLET 30 MG PO (07:55)
[2025-05-05 07:58] LABS: Anion Gap 14 (12-20); Carbon Dioxide 20 mmol/L (22-29); Chloride 108 mmol/L (96-108); Potassium 4.1 mmol/L (3.3-5.1); Sodium 138 mmol/L (135-145)
[2025-05-05 09:36] LABS: Reticulocytes Absolute 0.133 X10*6/uL (0.026-0.095)
[2025-05-05 10:16] LABS: Ferritin 202 ng/mL (10-250)
--- NOTE | 2025-05-05 11:01 | PC.NURSE ---
pt refused Jardiance Dr Jayjay caban MD spoke with the pt about the medication . pt refused eye drops this am
[2025-05-05 11:16] LABS: Glucose, Whole Blood 191 mg/dL (60-115)
--- NOTE | 2025-05-05 13:19 | PC.NURSE ---
no reaction noted after antibiotic infusion ,
[2025-05-05] MEDS: Morphine Sulfate Immed Release 15 MG TABLET PO ×2 (13:22→23:58)
[2025-05-05 15:24] LABS: Glucose, Whole Blood 267 mg/dL (60-115)
--- NOTE | 2025-05-05 15:37 | HO.PM.IMPN ---
Subjective Subjective Date of Service: 05/05/25 Interval History: BP improved chronic pain urinary frequency Review of Systems Review of Systems: Yes all other systems are reviewed and are negative Physical Exam Vital Signs: Vital Signs: Last Vital Signs Temp 97.7 F 05/05/25 11:01 Pulse 50 05/05/25 11:01 Resp 16 05/05/25 11:01 BP 121/59 L 05/05/25 11:01 Pulse Ox 95 05/05/25 11:01 O2 Del Method Nasal Cannula 05/05/25 11:01 O2 Flow Rate 2 05/05/25 11:01 BMI result Body Mass Index 31.4 Gen: in no acute distress HEENT: sclera anicteric, moist mucus membranes Neck: supple Lungs: clear to auscultation bilaterally Heart: regular rate and rhythm, no murmurs Abd: soft, non-tender, non-distended Ext: no edema Skin: warm/well-perfused Neuro: alert and oriented x3, no focal findings Psych: appropriate affect Objective Data Active Medications Amantadine HCl (Amantadine Hcl 100 Mg Capsule) 100 mg PO BID [facility] Last Admin: 05/05/25 07:54 Dose: 100 mg Documented By: CAPRICE Amphetamine/Dextroamphetamine (Amphetamine Mixed Salts 10 Mg Tablet) 30 mg PO DAILY [facility] Last Admin: 05/05/25 07:55 Dose: 30 mg Documented By: CAPRICE Apixaban (Apixaban 5 Mg Tablet) 5 mg PO BID [facility] Bisacodyl (Bisacodyl 10 Mg Supp.Rect) 10 mg RI BEDTIME PRN PRN Reason: Constipation Brimonidine Tartrate (Brimonidine Tartrate 0.2% Oph 5 Ml Bottle) 1 drop EYE-BOTH BID [facility] Last Admin: 05/05/25 10:58 Dose: Not Given Documented By: CAPRICE Non-Admin Reason: Patient Refused Diazepam (Diazepam 5 Mg Tablet) 5 mg PO Q8H PRN PRN Reason: Anxiety Last Admin: 05/04/25 16:00 Dose: 5 mg Documented By: CISCO Diltiazem HCl (Diltiazem Hcl Cd 300 Mg Cap.Er.24h) 300 mg PO DAILY [facility]; Protocol Last Admin: 05/05/25 09:49 Dose: Not Given Documented By: CAPRICE Non-Admin Reason: Decreased Heart Rate Dorzolamide HCl (Dorzolamide Hcl 2 % Ophth Doris 10 Ml Drpbtl) 1 drop EYE-BOTH BID [facility] Last Admin: 05/05/25 10:59 Dose: Not Given Documented By: CAPRICE Non-Admin Reason: Patient Refused Ceftriaxone Sodium 1 gm/ (Sodium Chloride) 50 mls @ 100 mls/hr IV Q24H [facility] Last Infusion: 05/05/25 11:40 Dose: Infused Documented By: CAPRICE Lactated Ringer's (Lr) 1,000 mls @ 125 mls/hr IVCONT .Q8H [facility] Last Admin: 05/05/25 07:54 Dose: 125 mls/hr Documented By: CAPRICE Insulin Human Lispro (Insulin Lispro 100 Unit/Ml 3 Ml Vial) 0 unit SUBCUT QIDACHS [facility]; Protocol Last Admin: 05/05/25 11:49 Dose: Not Given Documented By: CAPRICE Non-Admin Reason: Patient Refused Ketorolac Tromethamine (Ketorolac Tromethamine 0.5% Op 5 Ml Drops) 1 drop EYE-RIGHT TID [facility] Last Admin: 05/05/25 15:23 Dose: Not Given Documented By: CAPRICE Non-Admin Reason: Patient Refused Latanoprost (Latanoprost 0.005 % Ophth Doris 2.5 Ml Drops) 1 drop EYE-BOTH BEDTIME [facility] Last Admin: 05/04/25 21:07 Dose: Not Given Documented By: JAMIE Non-Admin Reason: Med Not Available Levothyroxine Sodium (Levothyroxine Sodium 75 Mcg Tablet) 75 mcg PO DAILY@0600 [facility] Last Admin: 05/05/25 05:14 Dose: 75 mcg Documented By: TORO Midodrine (Midodrine Hcl 10 Mg Tablet) 10 mg PO Q8H [facility] Last Admin: 05/05/25 13:28 Dose: 10 mg Documented By: CAPRICE Modafinil (Modafinil 100 Mg Tablet) 100 mg PO BID [facility] Last Admin: 05/05/25 07:54 Dose: 100 mg Documented By: CAPRICE Montelukast Sodium (Montelukast Sodium 10 Mg Tablet) 10 mg PO DAILY [facility] Last Admin: 05/05/25 07:55 Dose: 10 mg Documented By: CAPRICE Morphine Sulfate (Morphine Sulfate Immed Release 15 Mg Tablet) 15 mg PO Q8H PRN PRN Reason: Pain severe Last Admin: 05/05/25 13:22 Dose: 15 mg Documented By: CAPRICE Prednisolone Acetate (Prednisolone Acetate 1 % Oph Susp 5 Ml Drpbtl) 1 drop EYE-RIGHT TID [facility] Last Admin: 05/05/25 15:23 Dose: Not Given Documented By: CAPRICE Non-Admin Reason: Patient Refused Promethazine HCl (Promethazine Hcl 25 Mg Tablet) 25 mg PO Q6H PRN PRN Reason: Nausea Last Admin: 05/05/25 15:22 Dose: 25 mg Documented By: CAPRICE Sildenafil Citrate (Sildenafil Citrate 20 Mg Tablet) 20 mg PO TID [facility] Last Admin: 05/05/25 15:24 Dose: Not Given Documented By: CAPRICE Non-Admin Reason: Patient Refused Sodium Chloride (0.9 % Sodium Chloride Flush 3 Ml Syringe) 3 ml IVFLUSH QSHIFT [facility] Last Admin: 05/05/25 15:24 Dose: 3 ml Documented By: CAPRICE Thiamine HCl (Thiamine Hcl 100 Mg Tablet) 100 mg PO DAILY [facility] Last Admin: 05/05/25 07:55 Dose: 100 mg Documented By: CAPRICE Labs 05/05/25 06:47 05/05/25 06:47 Labs: Laboratory Results - last 24 hr 05/04/25 05/04/25 05/05/25 16:17 20:54 06:47 MCV 88.8 MCH 27.9 MCHC 31.4 RDW 18.9 H Plt Count 238 MPV 10.0 Immature Gran % (Auto) 1.1 H Neut % (Auto) 70.5 Lymph % (Auto) 12.2 L [place] % (Auto) 10.5 Eos % (Auto) 4.5 H Baso % (Auto) 1.2 Lymph # (Auto) 1.0 L [place] # (Auto) 0.8 Eos # (Auto) 0.4 Baso # (Auto) 0.1 Abs Immat Gran (auto) 0.09 H Absolute Neuts (auto) 5.7 Absolute Nucleated RBC 0.000 Nucleated RBC % (auto) 0.0 Absolute Retic 0.133 H Percent Retic 4.6 H Immature Retic Fraction 31.4 H Retic Hgb Equivalent 26.4 L Anion Gap 14 Estim Creat Clear Calc 22.4 Estimated GFR 21 POC Glucose 188 H 137 H Random Glucose 120 H Calcium 8.6 Phosphorus 3.3 Magnesium 1.7 Ferritin 202 Lactate Dehydrogenase 209 Albumin 3.3 L 05/05/25 05/05/25 05/05/25 07:41 11:10 15:19 MCV MCH MCHC RDW Plt Count MPV Immature Gran % (Auto) Neut % (Auto) Lymph % (Auto) Vermilion % (Auto) Eos % (Auto) Baso % (Auto) Lymph # (Auto) Vermilion # (Auto) Eos # (Auto) Baso # (Auto) Abs Immat Gran (auto) Absolute Neuts (auto) Absolute Nucleated RBC Nucleated RBC % (auto) Absolute Retic Percent Retic Immature Retic Fraction Retic Hgb Equivalent Anion Gap Estim Creat Clear Calc Estimated GFR POC Glucose 122 H 191 H 267 H Random Glucose Calcium Phosphorus Magnesium Ferritin Lactate Dehydrogenase Albumin Microbiology Microbiology Results: Microbiology 05/03/25 Unknown Urine Culture - Preliminary Urine clean catch - Clean Catch Midstream Culture in progress. 05/03/25 21:52 Blood Culture - Preliminary Blood - Venous No growth after 24 hours. 05/03/25 21:52 Blood Culture - Preliminary Blood - Venous No growth after 24 hours. Assessment and Plan (1) Acute hypotension: Status: Acute Plan d3, 65yo F with MS, CAD s/p LAD PCI 2012, SDH, PE on apixaban, CVA, DM2, chronic pain, recent admission here 04/18-04/22/25 with pAF/tachy-dalia syndrome s/p PPM 04/21/25 sent in from [place] [id number] with weakness, leg swelling, anemia, and renal insufficiency; admitted to ICU for hypotension requiring brief vasopressor support, stepped down to telemetry unit 05/04 hypotension - started on midodrine by ICU, will try to wean off; attributed to hypotension and got fluid resuscitation which is ongoing PREM - suspet prerenal but will check FENa, renal US, Nephrology consultation; recheck BMP tomorrow; unclear if underlying chronic kidney disease UTI - ceftriaxone 05/04, follow UCx anemia of chronic disease - monitor while on apixaban, transfused 1u in ICU; guaiac negative hx PE pAF tachy-dalia syndrome s/p PPM - continue apixaban, diltiazem hypothyroidism - continue LT4 chronic pain - continue morphine sulfate DM2 - melchor-dose lispro VTE ppx: apixaban dispo: [facility] In my clinical judgment, the patient requires continued inpatient hospitalization for the following reasons: hypotension, renal insufficiency Total time managing care of this patient today: 45 minutes. Quality Stroke Does the patient have a stroke diagnosis?: No VTE Prior VTE?: No VTE Risk Level:: Medical - moderate - high VTE Device Contraindication: N/A - Device Ordered VTE Drug Contraindication: Treatment Not Indicated
--- NOTE | 2025-05-05 18:07 | PC.NURSE ---
Anticoagulation therapy : verified with DR Mcduffie and pharmacist Eliezer that Apixaban dose in am is being held and will restart tonight
[2025-05-05 19:14] LABS: Glucose, Whole Blood 211 mg/dL (60-115)
[2025-05-05 20:44] LABS: Glucose, Whole Blood 91 mg/dL (60-115)
[2025-05-06] VITALS (7 sets, daily range): BP systolic 101–111; BP diastolic 53–60; PULSE 50–52; RESP 16–20; TEMP 36.4–36.9; O2SAT 93–99; BMI 31.4
[2025-05-06 05:34] LABS: Hematocrit 26.8 % (37.0-47.0); Hemoglobin 8.2 g/dl (12.0-16.0); Mean Corpuscular HGB Conc 30.6 g/dl (31.0-35.0); Mean Corpuscular Hemoglobin 28.2 pg (27.0-33.0); Mean Corpuscular Volume 92.1 fL (80.0-98.0); NRBC Abs Auto 0.020 X10*3/uL (0.0-0.012); NRBC Pct Auto 0.2 /100WBC (0.0-0.2); Platelet Count 253 X10*3/uL (160-400); Red Blood Count 2.91 X10*6/uL (4.20-5.50); White Blood Count 8.8 X10*3/uL (4.8-10.8)
[2025-05-06 05:49] LABS: Anion Gap 11 (12-20); Blood Urea Nitrogen 27 mg/dL (9-16); Calcium 8.3 mg/dL (8.4-10.2); Carbon Dioxide 22 mmol/L (22-29); Chloride 109 mmol/L (96-108); Creatinine Clr Calc Pharmacy 27.6; Estimated Glomerular Filt Rate 26; Potassium 4.0 mmol/L (3.3-5.1); Sodium 138 mmol/L (135-145)
[2025-05-06 07:29] LABS: Glucose, Whole Blood 124 mg/dL (60-115)
[2025-05-06] MEDS: Lactated Ringers 1,000 ML 125 ML IVCONT ×2 (07:57→16:18)
[2025-05-06] MEDS: Amphetamine Mixed Salts 10 MG TABLET 30 MG PO (07:59)
[2025-05-06] MEDS: 0.9 % Sodium Chloride Flush 3 ML SYRINGE IVFLUSH ×2 (08:04→22:41)
[2025-05-06 11:24] LABS: Glucose, Whole Blood 104 mg/dL (60-115)
[2025-05-06] MEDS: Brimonidine Tartrate 0.2% Oph 5 ML BOTTLE 1 DROP EYE-BOTH ×2 (11:39→22:40)
--- NOTE | 2025-05-06 13:18 | HO.PM.IMPN ---
Subjective Subjective Date of Service: 05/06/25 Interval History: urinating frequently no dizziness Review of Systems Review of Systems: Yes all other systems are reviewed and are negative Physical Exam Vital Signs: Vital Signs: Last Vital Signs Temp 98.3 F 05/06/25 11:54 Pulse 50 05/06/25 11:54 Resp 18 05/06/25 11:54 BP 109/59 L 05/06/25 11:54 Pulse Ox 93 05/06/25 11:54 O2 Del Method Nasal Cannula 05/06/25 11:54 O2 Flow Rate 2 05/06/25 11:54 BMI result Body Mass Index 31.4 Gen: in no acute distress HEENT: sclera anicteric, moist mucus membranes Neck: supple Lungs: clear to auscultation bilaterally Heart: regular rate and rhythm, no murmurs Abd: soft, non-tender, non-distended Ext: no edema Skin: warm/well-perfused Neuro: alert and oriented x3, no focal findings Psych: appropriate affect Objective Data Active Medications Amantadine HCl (Amantadine Hcl 100 Mg Capsule) 100 mg PO BID [facility] Last Admin: 05/06/25 08:01 Dose: 100 mg Documented By: TYRONE Amphetamine/Dextroamphetamine (Amphetamine Mixed Salts 10 Mg Tablet) 30 mg PO DAILY [facility] Last Admin: 05/06/25 07:59 Dose: 30 mg Documented By: TYRONE Apixaban (Apixaban 5 Mg Tablet) 5 mg PO BID [facility] Last Admin: 05/06/25 08:00 Dose: 5 mg Documented By: TYRONE Bisacodyl (Bisacodyl 10 Mg Supp.Rect) 10 mg RI BEDTIME PRN PRN Reason: Constipation Brimonidine Tartrate (Brimonidine Tartrate 0.2% Oph 5 Ml Bottle) 1 drop EYE-BOTH BID [facility] Last Admin: 05/06/25 11:39 Dose: 1 drop Documented By: TYRONE Diazepam (Diazepam 5 Mg Tablet) 5 mg PO Q8H PRN PRN Reason: Anxiety Last Admin: 05/04/25 16:00 Dose: 5 mg Documented By: CISCO Diltiazem HCl (Diltiazem Hcl Cd 300 Mg Cap.Er.24h) 300 mg PO DAILY [facility]; Protocol Last Admin: 05/06/25 10:16 Dose: Not Given Documented By: TYRONE Non-Admin Reason: Decreased Blood Pressure Dorzolamide HCl (Dorzolamide Hcl 2 % Ophth Doris 10 Ml Drpbtl) 1 drop EYE-BOTH BID [facility] Last Admin: 05/06/25 11:36 Dose: Not Given Documented By: TYRONE Non-Admin Reason: Patient Refused Ceftriaxone Sodium 1 gm/ (Sodium Chloride) 50 mls @ 100 mls/hr IV Q24H [facility] Last Infusion: 05/06/25 12:27 Dose: Infused Documented By: TYRONE Lactated Ringer's (Lr) 1,000 mls @ 125 mls/hr IVCONT .Q8H [facility] Last Admin: 05/06/25 07:57 Dose: 125 mls/hr Documented By: TYRONE Insulin Human Lispro (Insulin Lispro 100 Unit/Ml 3 Ml Vial) 0 unit SUBCUT QIDACHS [facility]; Protocol Last Admin: 05/06/25 11:40 Dose: Not Given Documented By: TYRONE Non-Admin Reason: No Insulin Coverage Ketorolac Tromethamine (Ketorolac Tromethamine 0.5% Op 5 Ml Drops) 1 drop EYE-RIGHT TID [facility] Last Admin: 05/06/25 11:36 Dose: Not Given Documented By: TYRONE Non-Admin Reason: Patient Refused Latanoprost (Latanoprost 0.005 % Ophth Doris 2.5 Ml Drops) 1 drop EYE-BOTH BEDTIME [facility] Last Admin: 05/05/25 20:52 Dose: Not Given Documented By: NAYANA Non-Admin Reason: Patient Refused Levothyroxine Sodium (Levothyroxine Sodium 75 Mcg Tablet) 75 mcg PO DAILY@0600 [facility] Last Admin: 05/06/25 05:36 Dose: 75 mcg Documented By: NAYANA Midodrine (Midodrine Hcl 2.5 Mg Tablet) 2.5 mg PO Q8H [facility] Stop: 05/07/25 10:00 Modafinil (Modafinil 100 Mg Tablet) 200 mg PO DAILY [facility] Montelukast Sodium (Montelukast Sodium 10 Mg Tablet) 10 mg PO DAILY [facility] Last Admin: 05/06/25 08:01 Dose: 10 mg Documented By: TYRONE Morphine Sulfate (Morphine Sulfate Immed Release 15 Mg Tablet) 15 mg PO Q8H PRN PRN Reason: Pain severe Last Admin: 05/05/25 23:58 Dose: 15 mg Documented By: NAYANA Prednisolone Acetate (Prednisolone Acetate 1 % Oph Susp 5 Ml Drpbtl) 1 drop EYE-RIGHT TID [facility] Last Admin: 05/06/25 11:36 Dose: Not Given Documented By: TYRONE Non-Admin Reason: Patient Refused Promethazine HCl (Promethazine Hcl 25 Mg Tablet) 25 mg PO Q6H PRN PRN Reason: Nausea Last Admin: 05/05/25 15:22 Dose: 25 mg Documented By: CAPRICE Sildenafil Citrate (Sildenafil Citrate 20 Mg Tablet) 20 mg PO TID [facility] Last Admin: 05/06/25 08:02 Dose: 20 mg Documented By: TYRONE Sodium Chloride (0.9 % Sodium Chloride Flush 3 Ml Syringe) 3 ml IVFLUSH QSHIFT [facility] Last Admin: 05/06/25 08:04 Dose: 3 ml Documented By: TYRONE Thiamine HCl (Thiamine Hcl 100 Mg Tablet) 100 mg PO DAILY [facility] Last Admin: 05/06/25 08:01 Dose: 100 mg Documented By: TYRONE Labs 05/06/25 05:10 05/06/25 05:10 Labs: Laboratory Results - last 24 hr 05/05/25 05/05/25 05/05/25 15:19 16:55 17:39 MCV MCH MCHC RDW Plt Count MPV Absolute Nucleated RBC Nucleated RBC % (auto) Anion Gap Estim Creat Clear Calc Estimated GFR POC Glucose 267 H 211 H Random Glucose Calcium Ur Random Sodium 28.0 Urine Creatinine 122.10 05/05/25 05/06/25 05/06/25 20:40 05:10 07:20 MCV 92.1 MCH 28.2 MCHC 30.6 L RDW 19.8 H Plt Count 253 MPV 10.0 Absolute Nucleated RBC 0.020 H Nucleated RBC % (auto) 0.2 Anion Gap 11 L Estim Creat Clear Calc 27.6 Estimated GFR 26 POC Glucose 91 124 H Random Glucose 123 H Calcium 8.3 L Ur Random Sodium Urine Creatinine 05/06/25 11:16 MCV MCH MCHC RDW Plt Count MPV Absolute Nucleated RBC Nucleated RBC % (auto) Anion Gap Estim Creat Clear Calc Estimated GFR POC Glucose 104 Random Glucose Calcium Ur Random Sodium Urine Creatinine Microbiology Microbiology Results: Microbiology 05/03/25 Unknown Urine Culture - Final Urine clean catch - Clean Catch Midstream 05/03/25 21:52 Blood Culture - Preliminary Blood - Venous No growth after 48 hours. 05/03/25 21:52 Blood Culture - Preliminary Blood - Venous No growth after 48 hours. Assessment and Plan (1) Acute hypotension: Status: Acute Plan d3=4, 65yo F with MS, CAD s/p LAD PCI 2012, SDH, PE on apixaban, CVA, DM2, chronic pain, recent admission here 04/18-04/22/25 with pAF/tachy-dalia syndrome s/p PPM 04/21/25 sent in from [facility] with weakness, leg swelling, anemia, and renal insufficiency; admitted to ICU for hypotension requiring brief vasopressor support, stepped down to telemetry unit 05/04 hypotension - started on midodrine by ICU, will wean off over next 24hr; continue IV fluids PREM - FENa 0.4 so likely prerenal; continue IV fluids; recheck BMP tomorrow UTI - ceftriaxone 05/04-, UCx contaminated anemia of chronic disease - monitor while on apixaban, transfused 1u in ICU; guaiac negative hx PE pAF tachy-dalia syndrome s/p PPM - continue apixaban, diltiazem hypothyroidism - continue LT4 chronic pain - continue morphine sulfate DM2 - melchor-dose lispro VTE ppx: apixaban dispo: [facility] In my clinical judgment, the patient requires continued inpatient hospitalization for the following reasons: hypotension, renal insufficiency Total time managing care of this patient today: 35 minutes. Quality Stroke Does the patient have a stroke diagnosis?: No VTE Prior VTE?: No VTE Risk Level:: Medical - moderate - high VTE Device Contraindication: N/A - Device Ordered VTE Drug Contraindication: Treatment Not Indicated
--- NOTE | 2025-05-06 13:54 | MHC.CM.PN ---
PER ROUNDS PT NOT DC READY PLAN [facility]
[2025-05-06 16:05] LABS: OBS Int Ctl Valid YES; OBS1 NEGATIVE (NEGATIVE)
[2025-05-06 16:18] LABS: Glucose, Whole Blood 141 mg/dL (60-115)
--- NOTE | 2025-05-06 17:22 | PC.NURSE ---
Pt reports SOB with activity and afterwards for about 30 minutes. Her sats drop to 78% on room air while up to commode, but she states, I don't believe that. Refusing to wear oxygen on commode because of inconvenience of the nasal cannula. Pt is unsure of here eye drop prescriptions, as she identifies them by the color of the lids at home. Multiple loose BM's today. Son was in room today, wanting to know about what factors might have led to patient being in hospital again, what prognosis is. He left before MD could respond.
[2025-05-06 21:27] LABS: Glucose, Whole Blood 125 mg/dL (60-115)
[2025-05-06] MEDS: Latanoprost 0.005 % Ophth Sol 2.5 ML DROPS 1 DROP EYE-BOTH (22:49)
--- NOTE | 2025-05-06 23:09 | PC.NURSE ---
97% on 2L NC, titrated down to 1L now
[2025-05-07] VITALS (8 sets, daily range): BP systolic 90–152; BP diastolic 44–89; PULSE 50–80; RESP 16–20; TEMP 36.2–36.7; O2SAT 97–100; BMI 33.6
[2025-05-07] MEDS: Lactated Ringers 1,000 ML 125 ML IVCONT ×3 (02:26→17:34)
[2025-05-07 06:57] LABS: Anion Gap 13 (12-20); Blood Urea Nitrogen 24 mg/dL (9-16); Calcium 8.4 mg/dL (8.4-10.2); Carbon Dioxide 19 mmol/L (22-29); Chloride 110 mmol/L (96-108); Creatinine Clr Calc Pharmacy 38.2; Estimated Glomerular Filt Rate 37; Potassium 3.8 mmol/L (3.3-5.1); Sodium 138 mmol/L (135-145)
[2025-05-07 07:40] LABS: Glucose, Whole Blood 64 mg/dL (60-115)
[2025-05-07] MEDS: Amphetamine Mixed Salts 10 MG TABLET 30 MG PO (09:22)
[2025-05-07] MEDS: dilTIAZem HCL CD 300 MG CAP.ER.24H PO (09:22)
[2025-05-07] MEDS: Brimonidine Tartrate 0.2% Oph 5 ML BOTTLE 1 DROP EYE-BOTH ×2 (10:02→21:45)
--- NOTE | 2025-05-07 11:41 | HO.PM.IMPN ---
Subjective Subjective Date of Service: 05/07/25 Interval History: BP improved urinating frequently SCr improving Review of Systems Review of Systems: Yes all other systems are reviewed and are negative Physical Exam Vital Signs: Vital Signs: Last Vital Signs Temp 97.2 F 05/07/25 11:33 Pulse 65 05/07/25 11:33 Resp 18 05/07/25 11:33 BP 144/72 H 05/07/25 11:33 Pulse Ox 100 05/07/25 11:33 O2 Del Method Nasal Cannula 05/07/25 11:33 O2 Flow Rate 2 05/07/25 11:33 BMI result Body Mass Index 33.6 Gen: in no acute distress HEENT: sclera anicteric, moist mucus membranes Neck: supple Lungs: clear to auscultation bilaterally Heart: regular rate and rhythm, no murmurs Abd: soft, non-tender, non-distended Ext: no edema Skin: warm/well-perfused Neuro: alert and oriented x3, no focal findings Psych: appropriate affect Objective Data Active Medications Amantadine HCl (Amantadine Hcl 100 Mg Capsule) 100 mg PO BID [facility] Last Admin: 05/07/25 09:22 Dose: 100 mg Documented By: HARVEY Amphetamine/Dextroamphetamine (Amphetamine Mixed Salts 10 Mg Tablet) 30 mg PO DAILY [facility] Last Admin: 05/07/25 09:22 Dose: 30 mg Documented By: HARVEY Apixaban (Apixaban 5 Mg Tablet) 5 mg PO BID [facility] Last Admin: 05/07/25 09:23 Dose: 5 mg Documented By: HARVEY Bisacodyl (Bisacodyl 10 Mg Supp.Rect) 10 mg NE BEDTIME PRN PRN Reason: Constipation Brimonidine Tartrate (Brimonidine Tartrate 0.2% Oph 5 Ml Bottle) 1 drop EYE-BOTH BID [facility] Last Admin: 05/07/25 10:02 Dose: 1 drop Documented By: HARVEY Diazepam (Diazepam 5 Mg Tablet) 5 mg PO Q8H PRN PRN Reason: Anxiety Last Admin: 05/06/25 17:34 Dose: 5 mg Documented By: TYRONE Diltiazem HCl (Diltiazem Hcl Cd 300 Mg Cap.Er.24h) 300 mg PO DAILY [facility]; Protocol Last Admin: 05/07/25 09:22 Dose: 300 mg Documented By: HARVEY Dorzolamide HCl (Dorzolamide Hcl 2 % Ophth Doris 10 Ml Drpbtl) 1 drop EYE-BOTH BID [facility] Last Admin: 05/07/25 10:02 Dose: Not Given Documented By: HARVEY Non-Admin Reason: Patient Refused Ceftriaxone Sodium 1 gm/ (Sodium Chloride) 50 mls @ 100 mls/hr IV Q24H [facility] Last Infusion: 05/07/25 10:03 Dose: Infused Documented By: HARVEY Lactated Ringer's (Lr) 1,000 mls @ 125 mls/hr IVCONT .Q8H [facility] Last Admin: 05/07/25 09:23 Dose: 125 mls/hr Documented By: HARVEY Insulin Human Lispro (Insulin Lispro 100 Unit/Ml 3 Ml Vial) 0 unit SUBCUT QIDACHS [facility]; Protocol Last Admin: 05/07/25 07:52 Dose: Not Given Documented By: HARVEY Non-Admin Reason: No Insulin Coverage Latanoprost (Latanoprost 0.005 % Ophth Doris 2.5 Ml Drops) 1 drop EYE-BOTH BEDTIME [facility] Last Admin: 05/06/25 22:49 Dose: 1 drop Documented By: MARYANN Levothyroxine Sodium (Levothyroxine Sodium 75 Mcg Tablet) 75 mcg PO DAILY@0600 [facility] Last Admin: 05/07/25 06:29 Dose: 75 mcg Documented By: MARYANN Modafinil (Modafinil 100 Mg Tablet) 200 mg PO DAILY [facility] Last Admin: 05/07/25 09:23 Dose: 200 mg Documented By: HARVEY Montelukast Sodium (Montelukast Sodium 10 Mg Tablet) 10 mg PO DAILY [facility] Last Admin: 05/07/25 09:22 Dose: 10 mg Documented By: HARVEY Morphine Sulfate (Morphine Sulfate Immed Release 15 Mg Tablet) 15 mg PO Q8H PRN PRN Reason: Pain severe Last Admin: 05/05/25 23:58 Dose: 15 mg Documented By: NAYANA Promethazine HCl (Promethazine Hcl 25 Mg Tablet) 25 mg PO Q6H PRN PRN Reason: Nausea Last Admin: 05/06/25 13:57 Dose: 25 mg Documented By: TYRONE Sildenafil Citrate (Sildenafil Citrate 20 Mg Tablet) 20 mg PO TID [facility] Last Admin: 05/07/25 09:22 Dose: 20 mg Documented By: HARVEY Sodium Chloride (0.9 % Sodium Chloride Flush 3 Ml Syringe) 3 ml IVFLUSH QSHIFT [facility] Last Admin: 05/07/25 09:23 Dose: Not Given Documented By: HARVEY Non-Admin Reason: IV Running Thiamine HCl (Thiamine Hcl 100 Mg Tablet) 100 mg PO DAILY [facility] Last Admin: 05/07/25 09:22 Dose: 100 mg Documented By: HARVEY Labs 05/06/25 05:10 05/07/25 06:27 Labs: Laboratory Results - last 24 hr 05/06/25 05/06/25 05/06/25 15:49 16:08 21:20 Hold Purple Top Anion Gap Estim Creat Clear Calc Estimated GFR POC Glucose 141 H 125 H Random Glucose Calcium Stool Occult Blood NEGATIVE 05/07/25 05/07/25 05/07/25 06:27 06:37 07:12 Hold Purple Top SEE NOTE Anion Gap 13 Estim Creat Clear Calc 38.2 Estimated GFR 37 POC Glucose 64 Random Glucose 87 Calcium 8.4 Stool Occult Blood Microbiology Microbiology Results: Microbiology 05/03/25 Unknown Urine Culture - Final Urine clean catch - Clean Catch Midstream Assessment and Plan (1) Acute hypotension: Status: Acute Plan d5, 65yo F with MS, CAD s/p LAD PCI 2012, SDH, PE on apixaban, CVA, DM2, chronic pain, recent admission here 04/18-04/22/25 with pAF/tachy-dalia syndrome s/p PPM 04/21/25 sent in from [facility]with weakness, leg swelling, anemia, and renal insufficiency; admitted to ICU for hypotension requiring brief vasopressor support, stepped down to telemetry unit 05/04 hypotension, resolved - d/c midodrine PREM - FENa 0.4 so likely prerenal; continue IV fluids; recheck BMP tomorrow; SCr continues to improve UTI - ceftriaxone 05/04-, UCx contaminated anemia of chronic disease - monitor while on apixaban, transfused 1u in ICU; guaiac negative hx PE pAF tachy-dalia syndrome s/p PPM - continue apixaban, diltiazem hypothyroidism - continue LT4 chronic pain - continue morphine sulfate DM2 - melchor-dose lispro VTE ppx: apixaban dispo: [facility] In my clinical judgment, the patient requires continued inpatient hospitalization for the following reasons: renal insufficiency requiring IV fluids Total time managing care of this patient today: 35 minutes. Quality Stroke Does the patient have a stroke diagnosis?: No VTE Prior VTE?: No VTE Risk Level:: Medical - moderate - high VTE Device Contraindication: N/A - Device Ordered VTE Drug Contraindication: Treatment Not Indicated
[2025-05-07 11:45] LABS: Glucose, Whole Blood 247 mg/dL (60-115)
[2025-05-07 16:21] LABS: Glucose, Whole Blood 161 mg/dL (60-115)
[2025-05-07] MEDS: Morphine Sulfate Immed Release 15 MG TABLET PO (19:46)
[2025-05-07 19:52] LABS: Glucose, Whole Blood 172 mg/dL (60-115)
[2025-05-07] MEDS: Latanoprost 0.005 % Ophth Sol 2.5 ML DROPS 1 DROP EYE-BOTH (21:45)
[2025-05-07] MEDS: 0.9 % Sodium Chloride Flush 3 ML SYRINGE IVFLUSH (21:45)
--- NOTE | 2025-05-07 22:13 | PC.NURSE ---
pt endorses increased let chest sharp pain associated with pacer site as well as bilareral upper back pain. no prn in place. pt appears calm, vitals stable. MD Rueda contacted. pt back supine/right lateral with fall prx in place, pt states she is tolerating pain, call rush in reach
[2025-05-08] VITALS (7 sets, daily range): BP systolic 90–118; BP diastolic 52–58; PULSE 50–66; RESP 16–20; TEMP 36.4–36.8; O2SAT 91–96; BMI 29.4
[2025-05-08] MEDS: Lactated Ringers 1,000 ML 125 ML IVCONT ×3 (01:41→20:57)
--- NOTE | 2025-05-08 05:19 | PC.NURSE ---
appears to be in a v paced bigeminy. no other changes in patient at this time. in fact, patient states she is the most comfrtable and best she has felt all shift. states needs are met at this time, janay rush in reach, fall prx in pal
--- NOTE | 2025-05-08 05:22 | PC.NURSE ---
appears to be in a v paced bigeminy. no other changes in patient at this time. in fact, patient states she is the most comfortable and best she has felt all shift. states needs are met at this time, call rush in reach, fall prx in place
[2025-05-08] MEDS: Morphine Sulfate Immed Release 15 MG TABLET PO (07:16)
[2025-05-08 07:49] LABS: Anion Gap 13 (12-20); Blood Urea Nitrogen 26 mg/dL (9-16); Calcium 8.2 mg/dL (8.4-10.2); Carbon Dioxide 18 mmol/L (22-29); Chloride 112 mmol/L (96-108); Creatinine Clr Calc Pharmacy 34.2; Estimated Glomerular Filt Rate 35; Potassium 3.8 mmol/L (3.3-5.1); Sodium 139 mmol/L (135-145)
[2025-05-08 08:09] LABS: Glucose, Whole Blood 160 mg/dL (60-115)
[2025-05-08] MEDS: Amphetamine Mixed Salts 10 MG TABLET 30 MG PO (08:54)
[2025-05-08 11:40] LABS: Glucose, Whole Blood 168 mg/dL (60-115)
--- NOTE | 2025-05-08 14:17 | HO.PM.IMPN ---
Subjective Subjective Date of Service: 05/08/25 Interval History: BP soft tolerating diet unsure about going to [facility] Review of Systems Review of Systems: Yes all other systems are reviewed and are negative Physical Exam Vital Signs: Vital Signs: Last Vital Signs Temp 97.5 F 05/08/25 11:43 Pulse 66 05/08/25 11:43 Resp 20 05/08/25 11:43 BP 100/57 L 05/08/25 11:43 Pulse Ox 95 05/08/25 11:43 O2 Del Method Room Air 05/08/25 11:43 O2 Flow Rate 2 05/08/25 07:39 BMI result Body Mass Index 29.4 Gen: in no acute distress HEENT: sclera anicteric, moist mucus membranes Neck: supple Lungs: clear to auscultation bilaterally Heart: regular rate and rhythm, no murmurs Abd: soft, non-tender, non-distended Ext: no edema Skin: warm/well-perfused Neuro: alert and oriented x3, no focal findings Psych: appropriate affect Objective Data Active Medications Amantadine HCl (Amantadine Hcl 100 Mg Capsule) 100 mg PO BID [facility] Last Admin: 05/08/25 08:55 Dose: 100 mg Documented By: HARVEY Amphetamine/Dextroamphetamine (Amphetamine Mixed Salts 10 Mg Tablet) 30 mg PO DAILY [facility] Last Admin: 05/08/25 08:54 Dose: 30 mg Documented By: HARVEY Apixaban (Apixaban 5 Mg Tablet) 5 mg PO BID [facility] Last Admin: 05/08/25 08:55 Dose: 5 mg Documented By: HARVEY Bisacodyl (Bisacodyl 10 Mg Supp.Rect) 10 mg NM BEDTIME PRN PRN Reason: Constipation Brimonidine Tartrate (Brimonidine Tartrate 0.2% Oph 5 Ml Bottle) 1 drop EYE-BOTH BID [facility] Last Admin: 05/08/25 09:21 Dose: Not Given Documented By: HARVEY Non-Admin Reason: Patient Refused Diazepam (Diazepam 5 Mg Tablet) 5 mg PO Q8H PRN PRN Reason: Anxiety Last Admin: 05/06/25 17:34 Dose: 5 mg Documented By: TYRONE Diltiazem HCl (Diltiazem Hcl Cd 300 Mg Cap.Er.24h) 300 mg PO DAILY [facility]; Protocol On Hold: 05/07/25 22:24 Last Admin: 05/07/25 09:22 Dose: 300 mg Documented By: HARVEY Dorzolamide HCl (Dorzolamide Hcl 2 % Ophth Doris 10 Ml Drpbtl) 1 drop EYE-BOTH BID [facility] Last Admin: 05/08/25 09:22 Dose: Not Given Documented By: HARVEY Non-Admin Reason: Patient Refused Ceftriaxone Sodium 1 gm/ (Sodium Chloride) 50 mls @ 100 mls/hr IV Q24H [facility] Last Infusion: 05/08/25 09:50 Dose: Infused Documented By: HARVEY Lactated Ringer's (Lr) 1,000 mls @ 125 mls/hr IVCONT .Q8H [facility] Last Admin: 05/08/25 09:29 Dose: 125 mls/hr Documented By: HARVEY Insulin Human Lispro (Insulin Lispro 100 Unit/Ml 3 Ml Vial) 0 unit SUBCUT QIDACHS [facility]; Protocol Last Admin: 05/08/25 12:10 Dose: Not Given Documented By: HARVEY Non-Admin Reason: Patient Refused Latanoprost (Latanoprost 0.005 % Ophth Doris 2.5 Ml Drops) 1 drop EYE-BOTH BEDTIME [facility] Last Admin: 05/07/25 21:45 Dose: 1 drop Documented By: MARYANN Levothyroxine Sodium (Levothyroxine Sodium 75 Mcg Tablet) 75 mcg PO DAILY@0600 [facility] Last Admin: 05/08/25 07:16 Dose: 75 mcg Documented By: MARYANN Melatonin (Melatonin 3 Mg Tablet) 6 mg PO BEDTIME [facility] Modafinil (Modafinil 100 Mg Tablet) 200 mg PO DAILY [facility] Last Admin: 05/08/25 08:55 Dose: 200 mg Documented By: HARVEY Montelukast Sodium (Montelukast Sodium 10 Mg Tablet) 10 mg PO DAILY [facility] Last Admin: 05/08/25 08:55 Dose: 10 mg Documented By: HARVEY Morphine Sulfate (Morphine Sulfate Immed Release 15 Mg Tablet) 15 mg PO Q8H PRN PRN Reason: Pain severe Last Admin: 05/08/25 07:16 Dose: 15 mg Documented By: MARYANN Promethazine HCl (Promethazine Hcl 25 Mg Tablet) 25 mg PO Q6H PRN PRN Reason: Nausea Last Admin: 05/07/25 19:46 Dose: 25 mg Documented By: MARYANN Sildenafil Citrate (Sildenafil Citrate 20 Mg Tablet) 20 mg PO TID [facility] On Hold: 05/07/25 22:23 Last Admin: 05/07/25 21:45 Dose: 20 mg Documented By: MARYANN Sodium Chloride (0.9 % Sodium Chloride Flush 3 Ml Syringe) 3 ml IVFLUSH QSHIFT [facility] Last Admin: 05/08/25 09:05 Dose: Not Given Documented By: HARVEY Non-Admin Reason: IV Running Thiamine HCl (Thiamine Hcl 100 Mg Tablet) 100 mg PO DAILY [facility] Last Admin: 05/08/25 08:55 Dose: 100 mg Documented By: HARVEY Trazodone HCl (Trazodone Hcl 50 Mg Tablet) 50 mg PO BEDTIME PRN PRN Reason: Insomnia Labs 05/06/25 05:10 05/08/25 06:43 Labs: Laboratory Results - last 24 hr 05/07/25 05/07/25 05/08/25 16:15 19:30 06:43 Anion Gap 13 Estim Creat Clear Calc 34.2 Estimated GFR 35 POC Glucose 161 H 172 H Random Glucose 169 H Calcium 8.2 L 05/08/25 05/08/25 07:37 11:31 Anion Gap Estim Creat Clear Calc Estimated GFR POC Glucose 160 H 168 H Random Glucose Calcium Assessment and Plan (1) Acute hypotension: Status: Acute Plan d6, 65yo F with MS, CAD s/p LAD PCI 2012, SDH, PE on apixaban, CVA, DM2, chronic pain, recent admission here 04/18-04/22/25 with pAF/tachy-dalia syndrome s/p PPM 04/21/25 sent in from [facility] ([facility])with weakness, leg swelling, anemia, and renal insufficiency; admitted to ICU for hypotension requiring brief vasopressor support, stepped down to telemetry unit 05/04 hypotension, resolved - d/c'ed midodrine PREM - FENa 0.4 so likely prerenal; continue IV fluids; recheck BMP tomorrow UTI - ceftriaxone 05/04-, UCx contaminated anemia of chronic disease - monitor while on apixaban, transfused 1u in ICU; guaiac negative hx PE pAF tachy-dalia syndrome s/p PPM - continue apixaban, diltiazem hypothyroidism - continue LT4 chronic pain - continue morphine sulfate DM2 - melchor-dose lispro VTE ppx: apixaban dispo: [facility] vs home with VNA In my clinical judgment, the patient requires continued inpatient hospitalization for the following reasons: renal insufficiency requiring IV fluids, repeat PT evaluation Total time managing care of this patient today: 35 minutes. Quality Stroke Does the patient have a stroke diagnosis?: No VTE Prior VTE?: No VTE Risk Level:: Medical - moderate - high VTE Device Contraindication: N/A - Device Ordered VTE Drug Contraindication: Treatment Not Indicated
[2025-05-08 16:24] LABS: Glucose, Whole Blood 173 mg/dL (60-115)
--- NOTE | 2025-05-08 17:07 | HO.SKINPHOTO ---
Location: Left chest Patient arrived to unit with gauze and tegaderm loose and coming off on left chest over pacemaker site. Dressing removed and replaced with gauze and tegaderm. Patient tolerated well but reports tenderness to area with dressing change. Photo of pacemaker site.
[2025-05-08 20:02] LABS: Glucose, Whole Blood 155 mg/dL (60-115)
[2025-05-09] VITALS (8 sets, daily range): BP systolic 105–160; BP diastolic 51–74; PULSE 44–64; RESP 16–18; TEMP 36.1–36.6; O2SAT 93–97; BMI 34.4
--- NOTE | 2025-05-09 | ECG_ITS ---
Test Reason : bradycardia Blood Pressure : */* mmHG Vent. Rate : 76 BPM Atrial Rate : 98 BPM P-R Int : 192 ms QRS Dur : 112 ms QT Int : 382 ms P-R-T Axes : * 70 266 degrees QTcB Int : 429 ms Atrial fibrillation with intermittent ventricular pacing Nonspecific ST and T wave abnormality Abnormal ECG When compared with ECG of 03-May-2025 14:58, Current undetermined rhythm precludes rhythm comparison, needs review Referred By: Suzanne Mcduffie Electronically Signed By: DANIELLA STORY
[2025-05-09] MEDS: Lactated Ringers 1,000 ML 125 ML IVCONT (05:10)
[2025-05-09 07:25] LABS: Glucose, Whole Blood 124 mg/dL (60-115)
[2025-05-09] MEDS: Amphetamine Mixed Salts 10 MG TABLET 30 MG PO (08:36)
[2025-05-09 08:42] LABS: Anion Gap 11 (12-20); Blood Urea Nitrogen 25 mg/dL (9-16); Calcium 8.8 mg/dL (8.4-10.2); Carbon Dioxide 21 mmol/L (22-29); Chloride 110 mmol/L (96-108); Creatinine Clr Calc Pharmacy 38.3; Estimated Glomerular Filt Rate 36; Potassium 3.4 mmol/L (3.3-5.1); Sodium 139 mmol/L (135-145)
[2025-05-09 11:26] LABS: Glucose, Whole Blood 159 mg/dL (60-115)
--- NOTE | 2025-05-09 14:47 | P.PNIM_ITS ---
Subjective Subjective Date of Service: 05/09/25 Interval History: C/o leg swelling and some shortness of breath Review of Systems Review of Systems: Yes all other systems are reviewed and are negative Physical Exam 2 Vital Signs: Vital Signs: Last Vital Signs Temp 97.0 F 05/09/25 12:00 Pulse 50 05/09/25 12:00 Resp 18 05/09/25 12:00 BP 105/51 L 05/09/25 12:00 Pulse Ox 94 05/09/25 12:00 O2 Del Method Room Air 05/09/25 12:00 O2 Flow Rate 2 05/08/25 07:39 BMI result Body Mass Index 34.4 Gen: in no acute distress HEENT: sclera anicteric, moist mucus membranes Neck: supple Lungs: clear to auscultation bilaterally Heart: regular rate and rhythm, no murmurs Abd: soft, non-tender, non-distended Ext: 2+ pitting bilateral leg edema Skin: warm/well-perfused Neuro: alert and oriented x3, no focal findings Psych: appropriate affect Objective Data Active Medications Amantadine HCl (Amantadine Hcl 100 Mg Capsule) 100 mg PO BID [facility] Last Admin: 05/09/25 08:36 Dose: 100 mg Documented By: DARREN Amphetamine/Dextroamphetamine (Amphetamine Mixed Salts 10 Mg Tablet) 30 mg PO DAILY [facility] Last Admin: 05/09/25 08:36 Dose: 30 mg Documented By: DARREN Apixaban (Apixaban 5 Mg Tablet) 5 mg PO BID [facility] Last Admin: 05/09/25 08:36 Dose: 5 mg Documented By: DARREN Bisacodyl (Bisacodyl 10 Mg Supp.Rect) 10 mg MI BEDTIME PRN PRN Reason: Constipation Brimonidine Tartrate (Brimonidine Tartrate 0.2% Oph 5 Ml Bottle) 1 drop EYE- BOTH BID [facility] Last Admin: 05/09/25 08:36 Dose: Not Given Documented By: DARREN Non-Admin Reason: Patient Refused Diazepam (Diazepam 5 Mg Tablet) 5 mg PO Q8H PRN PRN Reason: Anxiety Last Admin: 05/09/25 09:17 Dose: 5 mg Documented By: JD Diltiazem HCl (Diltiazem Hcl Cd 300 Mg Cap.Er.24h) 300 mg PO DAILY [facility]; Protocol On Hold: 05/07/25 22:24 Last Admin: 05/07/25 09:22 Dose: 300 mg Documented By: HARVEY Dorzolamide HCl (Dorzolamide Hcl 2 % Ophth Doris 10 Ml Drpbtl) 1 drop EYE-BOTH BID [facility] Last Admin: 05/09/25 08:36 Dose: Not Given Documented By: DARREN Non-Admin Reason: Patient Refused Ceftriaxone Sodium 1 gm/ (Sodium Chloride) 50 mls @ 100 mls/hr IV Q24H [facility] Last Infusion: 05/09/25 09:56 Dose: Infused Documented By: JD Insulin Human Lispro (Insulin Lispro 100 Unit/Ml 3 Ml Vial) 0 unit SUBCUT QIDACHS [facility]; Protocol Last Admin: 05/09/25 11:31 Dose: Not Given Documented By: JD Non-Admin Reason: Patient Refused Latanoprost (Latanoprost 0.005 % Ophth Doris 2.5 Ml Drops) 1 drop EYE-BOTH BEDTIME [facility] Last Admin: 05/08/25 21:08 Dose: Not Given Documented By: MANA Non-Admin Reason: Patient Refused Levothyroxine Sodium (Levothyroxine Sodium 75 Mcg Tablet) 75 mcg PO DAILY@0600 [facility] Last Admin: 05/09/25 05:11 Dose: 75 mcg Documented By: MANA Melatonin (Melatonin 3 Mg Tablet) 6 mg PO BEDTIME [facility] Last Admin: 05/08/25 20:49 Dose: 6 mg Documented By: MANA Modafinil (Modafinil 100 Mg Tablet) 200 mg PO DAILY [facility] Last Admin: 05/09/25 08:36 Dose: 200 mg Documented By: DARREN Montelukast Sodium (Montelukast Sodium 10 Mg Tablet) 10 mg PO DAILY [facility] Last Admin: 05/09/25 08:36 Dose: 10 mg Documented By: DARREN Morphine Sulfate (Morphine Sulfate Immed Release 15 Mg Tablet) 15 mg PO Q8H PRN PRN Reason: Pain severe Last Admin: 05/08/25 07:16 Dose: 15 mg Documented By: LAFLAMC Promethazine HCl (Promethazine Hcl 25 Mg Tablet) 25 mg PO Q6H PRN PRN Reason: Nausea Last Admin: 05/09/25 09:17 Dose: 25 mg Documented By: JD Sildenafil Citrate (Sildenafil Citrate 20 Mg Tablet) 20 mg PO TID [facility] On Hold: 05/07/25 22:23 Last Admin: 05/07/25 21:45 Dose: 20 mg Documented By: MARYANN Sodium Chloride (0.9 % Sodium Chloride Flush 3 Ml Syringe) 3 ml IVFLUSH QSHIFT [facility] Last Admin: 05/09/25 07:29 Dose: Not Given Documented By: JD Non-Admin Reason: IV Running Thiamine HCl (Thiamine Hcl 100 Mg Tablet) 100 mg PO DAILY [facility] Last Admin: 05/09/25 08:36 Dose: 100 mg Documented By: DARREN Trazodone HCl (Trazodone Hcl 50 Mg Tablet) 50 mg PO BEDTIME PRN PRN Reason: Insomnia Last Admin: 05/08/25 20:55 Dose: 50 mg Documented By: MANA Labs 05/06/25 05:10 05/09/25 08:01 Labs: Laboratory Results - last 24 hr 05/08/25 05/08/25 05/09/25 16:16 19:55 07:18 Anion Gap Estim Creat Clear Calc Estimated GFR POC Glucose 173 H 155 H 124 H Random Glucose Calcium 05/09/25 05/09/25 08:01 11:22 Anion Gap 11 L Estim Creat Clear Calc 38.3 Estimated GFR 36 POC Glucose 159 H Random Glucose 141 H Calcium 8.8 D Microbiology Microbiology Results: Microbiology 05/03/25 21:52 Blood Culture - Final Blood - Venous No growth after 5 days. 05/03/25 21:52 Blood Culture - Final Blood - Venous No growth after 5 days. Assessment and Plan (1) Acute hypotension: Status: Acute Plan d7, 65yo F with MS, CAD s/p LAD PCI 2012, SDH, PE on apixaban, CVA, DM2, chronic pain, recent admission here 04/18-04/22/25 with pAF/tachy-dalia syndrome s/p PPM 04/21/25 sent in from [facility] ([facility]) with weakness, leg swelling, anemia, and renal insufficiency; admitted to ICU for hypotension requiring brief vasopressor support, stepped down to telemetry unit 05/04 PREM acute HFpEF - FENa 0.4 so likely prerenal. Got continuous IV fluids and now appears overloaded; will give 1 time dose of Lasix and recheck BMP tomorrow. TTE 04/20/25 reviewed. UTI - ceftriaxone 05/04-05/11 [can complete with cefuroxime], UCx contaminated hypotension, resolved: d/c'ed midodrine anemia of chronic disease: transfused 1u in ICU; guaiac negative; recheck H+H tomorrow hx PE: continue apixaban pAF, tachy-dalia syndrome s/p PPM: continue apixaban, diltiazem hypothyroidism: continue LT4 chronic pain: continue morphine sulfate DM2: melchor-dose lispro VTE ppx: apixaban dispo: [facility] vs home with VNA In my clinical judgment, the patient requires continued inpatient hospitalization for the following reasons: fluid overload, PREM Total time managing care of this patient today: 35 minutes. Quality Stroke Does the patient have a stroke diagnosis?: No VTE Prior VTE?: No VTE Risk Level:: Medical - moderate - high VTE Device Contraindication: N/A - Device Ordered VTE Drug Contraindication: Treatment Not Indicated
[2025-05-09] MEDS: Furosemide 20 MG/2 ML VIAL IVPUSH (14:57)
[2025-05-09 16:46] LABS: Glucose, Whole Blood 212 mg/dL (60-115)
[2025-05-09] MEDS: Lidocaine 4 % Patch ADH..PATCH 1 PATCH TRANSDERMA (17:40)
[2025-05-09 17:53] LABS: Troponin-I High Sensitivity 22.6 ng/L (<3.5-17.0)
[2025-05-09 17:54] LABS: Troponin-I High Sensitivity 20.2 ng/L (<3.5-17.0)
[2025-05-09] MEDS: Furosemide 40 MG/4 ML VIAL IVPUSH (19:29)
[2025-05-09] MEDS: Morphine Sulfate Immed Release 15 MG TABLET PO (19:41)
[2025-05-09 20:15] LABS: Troponin-I High Sensitivity 25.1 ng/L (<3.5-17.0)
[2025-05-09 21:26] LABS: Glucose, Whole Blood 87 mg/dL (60-115)
[2025-05-10] VITALS (7 sets, daily range): BP systolic 108–140; BP diastolic 57–86; PULSE 60–72; RESP 16–18; TEMP 36.1–36.8; O2SAT 92–98; BMI 33.4
[2025-05-10 06:22] LABS: Hematocrit 28.5 % (37.0-47.0); Hemoglobin 8.7 g/dl (12.0-16.0); Mean Corpuscular HGB Conc 30.5 g/dl (31.0-35.0); Mean Corpuscular Hemoglobin 27.9 pg (27.0-33.0); Mean Corpuscular Volume 91.3 fL (80.0-98.0); NRBC Abs Auto 0.000 X10*3/uL (0.0-0.012); NRBC Pct Auto 0.0 /100WBC (0.0-0.2); Platelet Count 193 X10*3/uL (160-400); Red Blood Count 3.12 X10*6/uL (4.20-5.50); White Blood Count 5.7 X10*3/uL (4.8-10.8)
[2025-05-10 06:48] LABS: Anion Gap 14 (12-20); Blood Urea Nitrogen 22 mg/dL (9-16); Calcium 8.6 mg/dL (8.4-10.2); Carbon Dioxide 20 mmol/L (22-29); Chloride 110 mmol/L (96-108); Creatinine Clr Calc Pharmacy 37.7; Estimated Glomerular Filt Rate 36; Magnesium 1.4 mg/dL (1.6-2.6); Potassium 3.2 mmol/L (3.3-5.1); Sodium 141 mmol/L (135-145)
[2025-05-10 07:32] LABS: Glucose, Whole Blood 79 mg/dL (60-115)
[2025-05-10] MEDS: Magnesium Sulfate/H2O 2 GM/50 ML PIGGYBACK IV (08:26)
[2025-05-10] MEDS: 0.9 % Sodium Chloride Flush 3 ML SYRINGE IVFLUSH ×3 (08:26→20:09)
[2025-05-10] MEDS: Furosemide 40 MG/4 ML VIAL IVPUSH ×2 (08:27→17:44)
[2025-05-10] MEDS: Amphetamine Mixed Salts 10 MG TABLET 30 MG PO (08:28)
[2025-05-10] MEDS: Potassium Chloride ER 20 MEQ TAB.ER.PRT 40 MEQ PO (08:29)
[2025-05-10] MEDS: Lidocaine 4 % Patch ADH..PATCH 1 PATCH TRANSDERMA (08:29)
--- NOTE | 2025-05-10 09:55 | P.PNIM_ITS ---
Subjective Subjective Date of Service: 05/10/25 Interval History: She's feeling better today, less swoleln Review of Systems Review of Systems: Yes all other systems are reviewed and are negative Physical Exam 2 Vital Signs: Vital Signs: Last Vital Signs Temp 97.0 F 05/10/25 07:44 Pulse 60 05/10/25 07:44 Resp 16 05/10/25 07:44 BP 116/58 L 05/10/25 07:44 Pulse Ox 94 05/10/25 07:44 O2 Del Method Room Air 05/10/25 07:44 O2 Flow Rate 2 05/08/25 07:39 BMI result Body Mass Index 33.4 Const: Other: General: AO X 3, no acute distress Resp: CTA bilateral CVS: S1,S2,RRR, 2+ leg edema GI: +BS, NT, no distention Skin: No rash Neuro: motor grossly intact Psych: appropriate affect Objective Data Active Medications Amantadine HCl (Amantadine Hcl 100 Mg Capsule) 100 mg PO BID [facility] Last Admin: 05/10/25 08:28 Dose: 100 mg Documented By: TORI Amphetamine/Dextroamphetamine (Amphetamine Mixed Salts 10 Mg Tablet) 30 mg PO DAILY [facility] Last Admin: 05/10/25 08:28 Dose: 30 mg Documented By: TORI Apixaban (Apixaban 5 Mg Tablet) 5 mg PO BID [facility] Last Admin: 05/10/25 08:28 Dose: 5 mg Documented By: TORI Bisacodyl (Bisacodyl 10 Mg Supp.Rect) 10 mg MD BEDTIME PRN PRN Reason: Constipation Brimonidine Tartrate (Brimonidine Tartrate 0.2% Oph 5 Ml Bottle) 1 drop EYE- BOTH BID [facility] Last Admin: 05/10/25 08:29 Dose: Not Given Documented By: TORI Non-Admin Reason: Patient Refused Diltiazem HCl (Diltiazem Hcl Cd 300 Mg Cap.Er.24h) 300 mg PO DAILY [facility]; Protocol On Hold: 05/07/25 22:24 Last Admin: 05/07/25 09:22 Dose: 300 mg Documented By: HARVEY Dorzolamide HCl (Dorzolamide Hcl 2 % Ophth Doris 10 Ml Drpbtl) 1 drop EYE-BOTH BID [facility] Last Admin: 05/10/25 08:29 Dose: Not Given Documented By: TORI Non-Admin Reason: Patient Refused Furosemide (Furosemide 40 Mg/4 Ml Vial) 40 mg IVPUSH BID@0900,1800 [facility]; Protocol Last Admin: 05/10/25 08:27 Dose: 40 mg Documented By: TORI Ceftriaxone Sodium 1 gm/ (Sodium Chloride) 50 mls @ 100 mls/hr IV Q24H [facility] Last Infusion: 05/09/25 09:56 Dose: Infused Documented By: JD Magnesium Sulfate (Magnesium Sulfate/H2o) 2 gm in 50 mls @ 25 mls/hr IV ONCE ONE Stop: 05/10/25 10:12 Last Admin: 05/10/25 08:26 Dose: 25 mls/hr Documented By: TORI Insulin Human Lispro (Insulin Lispro 100 Unit/Ml 3 Ml Vial) 0 unit SUBCUT QIDACHS [facility]; Protocol Last Admin: 05/10/25 07:34 Dose: Not Given Documented By: TORI Non-Admin Reason: No Insulin Coverage Latanoprost (Latanoprost 0.005 % Ophth Doris 2.5 Ml Drops) 1 drop EYE-BOTH BEDTIME [facility] Last Admin: 05/09/25 21:46 Dose: Not Given Documented By: MANA Non-Admin Reason: Patient Refused Levothyroxine Sodium (Levothyroxine Sodium 75 Mcg Tablet) 75 mcg PO DAILY@0600 [facility] Last Admin: 05/10/25 05:12 Dose: 75 mcg Documented By: MANA Lidocaine (Lidocaine 4 % Patch Adh..Patch) 1 patch TRANSDERMA DAILY [facility]; Protocol Last Admin: 05/10/25 08:29 Dose: 1 patch Documented By: TORI Melatonin (Melatonin 3 Mg Tablet) 6 mg PO BEDTIME [facility] Last Admin: 05/09/25 19:41 Dose: 6 mg Documented By: MANA Modafinil (Modafinil 100 Mg Tablet) 200 mg PO DAILY [facility] Last Admin: 05/10/25 08:28 Dose: 200 mg Documented By: TORI Montelukast Sodium (Montelukast Sodium 10 Mg Tablet) 10 mg PO DAILY [facility] Last Admin: 05/10/25 08:28 Dose: 10 mg Documented By: TORI Morphine Sulfate (Morphine Sulfate Immed Release 15 Mg Tablet) 15 mg PO Q8H PRN PRN Reason: Pain severe Last Admin: 05/09/25 19:41 Dose: 15 mg Documented By: MANA Morphine Sulfate (Morphine Sulfate 4 Mg/Ml Cartridge) 2 mg IVPUSH Q6H PRN; Protocol PRN Reason: pain, severe Promethazine HCl (Promethazine Hcl 25 Mg Tablet) 25 mg PO Q6H PRN PRN Reason: Nausea Last Admin: 05/09/25 17:39 Dose: 25 mg Documented By: JD Sildenafil Citrate (Sildenafil Citrate 20 Mg Tablet) 20 mg PO TID [facility] On Hold: 05/07/25 22:23 Last Admin: 05/07/25 21:45 Dose: 20 mg Documented By: MARYANN Sodium Chloride (0.9 % Sodium Chloride Flush 3 Ml Syringe) [facility] Last Admin: 05/10/25 08:26 Dose: 3 ml Documented By: TORI Thiamine HCl (Thiamine Hcl 100 Mg Tablet) 100 mg PO DAILY [facility] Last Admin: 05/10/25 08:28 Dose: 100 mg Documented By: TORI Trazodone HCl (Trazodone Hcl 50 Mg Tablet) 50 mg PO BEDTIME PRN PRN Reason: Insomnia Last Admin: 05/09/25 19:41 Dose: 50 mg Documented By: MANA Labs 05/10/25 05:43 05/11/25 05:36 Labs: Laboratory Results - last 24 hr 05/09/25 05/09/25 05/09/25 11:22 16:42 17:24 MCV MCH MCHC RDW Plt Count MPV Absolute Nucleated RBC Nucleated RBC % (auto) Anion Gap Estim Creat Clear Calc Estimated GFR POC Glucose 159 H 212 H Random Glucose Calcium Magnesium Troponin I High Sens 20.2 H D NT-Pro-B Natriuret Pep 05/09/25 05/09/25 05/09/25 17:24 19:49 21:22 MCV MCH MCHC RDW Plt Count MPV Absolute Nucleated RBC Nucleated RBC % (auto) Anion Gap Estim Creat Clear Calc Estimated GFR POC Glucose 87 Random Glucose Calcium Magnesium Troponin I High Sens 22.6 H 25.1 H NT-Pro-B Natriuret Pep 80597.0 H 05/10/25 05/10/25 05:43 07:06 MCV 91.3 MCH 27.9 MCHC 30.5 L RDW 20.2 H Plt Count 193 MPV 9.6 Absolute Nucleated RBC 0.000 Nucleated RBC % (auto) 0.0 Anion Gap 14 Estim Creat Clear Calc 37.7 Estimated GFR 36 POC Glucose 79 Random Glucose 68 Calcium 8.6 Magnesium 1.4 L* Troponin I High Sens NT-Pro-B Natriuret Pep 51371.4 H Microbiology Microbiology Results: Microbiology 05/03/25 21:52 Blood Culture - Final Blood - Venous No growth after 5 days. 05/03/25 21:52 Blood Culture - Final Blood - Venous No growth after 5 days. Assessment and Plan (1) Acute hypotension: Status: Acute Plan 65yo F with MS, CAD s/p LAD PCI 2012, SDH, PE on apixaban, CVA, DM2, chronic pain, recent admission here 04/18-04/22/25 with pAF/tachy-dalia syndrome s/p PPM 04/21/25 sent in from [facility] ([facility]) with weakness, leg swelling, anemia, and renal insufficiency; admitted to ICU for hypotension requiring brief vasopressor support, stepped down to telemetry unit 05/04 PREM, creatine is within baseline ni acute HFpEF - FENa 0.4 so likely prerenal. +11 Liter -continue IV Lasix for 1 more day, track I/O and BMP UTI - ceftriaxone 05/04-05/11 [can complete with cefuroxime], UCx contaminated hypOtension, resolved: d/c'ed midodrine anemia of chronic disease: transfused 1u in ICU; guaiac negative; recheck H+H tomorrow Hypokalemia/hypomagnesemia - IV mag and PO mag hx PE: continue apixaban pAF, tachy-dalia syndrome s/p PPM: continue apixaban, diltiazem hypothyroidism: continue LT4 chronic pain: continue morphine sulfate DM2: melchor-dose lispro VTE ppx: apixaban dispo: [facility] vs home with VNA In my clinical judgment, the patient requires continued inpatient hospitalization for the following reasons: fluid overload, PREM and Psych eval for capacity Total time managing care of this patient today: 35 minutes. Quality Stroke Does the patient have a stroke diagnosis?: No VTE Prior VTE?: No VTE Risk Level:: Medical - moderate - high VTE Device Contraindication: N/A - Device Ordered VTE Drug Contraindication: Treatment Not Indicated
[2025-05-10 12:02] LABS: Glucose, Whole Blood 83 mg/dL (60-115)
[2025-05-10 16:18] LABS: Glucose, Whole Blood 108 mg/dL (60-115)
[2025-05-10] MEDS: Morphine Sulfate Immed Release 15 MG TABLET PO (20:08)
[2025-05-10 20:29] LABS: Glucose, Whole Blood 136 mg/dL (60-115)
[2025-05-11] VITALS (8 sets, daily range): BP systolic 103–156; BP diastolic 55–70; PULSE 60–73; RESP 16–18; TEMP 36–36.9; O2SAT 96–98; BMI 33.9
[2025-05-11 06:40] LABS: Anion Gap 14 (12-20); Blood Urea Nitrogen 20 mg/dL (9-16); Calcium 8.7 mg/dL (8.4-10.2); Carbon Dioxide 23 mmol/L (22-29); Chloride 108 mmol/L (96-108); Creatinine Clr Calc Pharmacy 41.5; Estimated Glomerular Filt Rate 40; Potassium 3.5 mmol/L (3.3-5.1); Sodium 141 mmol/L (135-145)
[2025-05-11 06:42] LABS: Magnesium 1.5 mg/dL (1.6-2.6)
[2025-05-11] MEDS: Furosemide 40 MG/4 ML VIAL IVPUSH ×2 (07:15→17:18)
[2025-05-11] MEDS: 0.9 % Sodium Chloride Flush 3 ML SYRINGE IVFLUSH ×3 (07:16→21:42)
[2025-05-11] MEDS: Amphetamine Mixed Salts 10 MG TABLET 30 MG PO (07:16)
[2025-05-11] MEDS: Lidocaine 4 % Patch ADH..PATCH 1 PATCH TRANSDERMA (07:17)
[2025-05-11 07:58] LABS: Glucose, Whole Blood 88 mg/dL (60-115)
[2025-05-11] MEDS: Magnesium Sulfate/H2O 2 GM/50 ML PIGGYBACK IV (09:15)
[2025-05-11 11:55] LABS: Glucose, Whole Blood 122 mg/dL (60-115)
--- NOTE | 2025-05-11 16:06 | MHC.CM.PN ---
pt expected to dc back to [facility]
[2025-05-11 16:21] LABS: Glucose, Whole Blood 133 mg/dL (60-115)
[2025-05-11 20:22] LABS: Glucose, Whole Blood 135 mg/dL (60-115)
[2025-05-12] VITALS (9 sets, daily range): BP systolic 127–153; BP diastolic 60–77; PULSE 60–82; RESP 14–18; TEMP 36–36.9; O2SAT 97–99; BMI 32.8
[2025-05-12 07:38] LABS: Magnesium 1.6 mg/dL (1.6-2.6)
[2025-05-12 07:49] LABS: Glucose, Whole Blood 96 mg/dL (60-115)
[2025-05-12 08:56] LABS: Anion Gap 14 (12-20); Blood Urea Nitrogen 17 mg/dL (9-16); Calcium 8.7 mg/dL (8.4-10.2); Carbon Dioxide 26 mmol/L (22-29); Chloride 104 mmol/L (96-108); Creatinine Clr Calc Pharmacy 46.9; Estimated Glomerular Filt Rate 47; Potassium 3.6 mmol/L (3.3-5.1); Sodium 140 mmol/L (135-145)
[2025-05-12] MEDS: Amphetamine Mixed Salts 10 MG TABLET 30 MG PO (09:03)
[2025-05-12] MEDS: Furosemide 40 MG/4 ML VIAL IVPUSH (09:04)
[2025-05-12] MEDS: 0.9 % Sodium Chloride Flush 3 ML SYRINGE IVFLUSH ×2 (09:10→17:19)
[2025-05-12] MEDS: Lidocaine 4 % Patch ADH..PATCH 1 PATCH TRANSDERMA (09:24)
--- NOTE | 2025-05-12 10:46 | MHC.CM.PN ---
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 CATALINO CALLED [facility] [phone]
[2025-05-12 11:55] LABS: Glucose, Whole Blood 132 mg/dL (60-115)
[2025-05-12] MEDS: Morphine Sulfate Immed Release 15 MG TABLET PO (14:31)
[2025-05-12 16:27] LABS: Glucose, Whole Blood 123 mg/dL (60-115)
[2025-05-12 20:22] LABS: Glucose, Whole Blood 179 mg/dL (60-115)
--- NOTE | 2025-05-12 22:00 | PC.NURSE ---
Pt's bedtime POC 179. Pt refused to take ROBERT sliding scale insulin. Per pt stated to this RN that she doesn't take insulin at home. HILARY Roque notified. Will continue to monitor pt's POC.
[2025-05-13 04:00] VITALS: BP 115/52; PULSE 60; RESP 15; TEMP 36.2; O2SAT 95
--- NOTE | 2025-05-13 04:32 | PC.NURSE ---
At 03:40, [facility] notified this RN about the pt's teley w/ prolonged QT/QTC interval at 6.47. Pt's HR 64 SR w/ PACs. outbound call center representative hospitalist HILARY Roque was notified of the situation. Per HILARY ordered one time dose of IV Magnesium 1gm, see AUG. IV Mg is currently running, pt asymptomatic, resting in bed, respirations even and unlabored, bed in lowest position, and call rush within reach. Will continue to monitor pt's teley.
[2025-05-13 06:00] VITALS: BMI 31.3
[2025-05-13 06:12] LABS: Magnesium 1.7 mg/dL (1.6-2.6)
[2025-05-13 07:22] VITALS: BP 122/61; PULSE 62; RESP 16; TEMP 37.1; O2SAT 97
[2025-05-13 07:32] LABS: Glucose, Whole Blood 143 mg/dL (60-115)
[2025-05-13] MEDS: Amphetamine Mixed Salts 10 MG TABLET 30 MG PO (07:44)
[2025-05-13] MEDS: 0.9 % Sodium Chloride Flush 3 ML SYRINGE IVFLUSH (07:48)
[2025-05-13 07:51] LABS: Anion Gap 14 (12-20); Blood Urea Nitrogen 18 mg/dL (9-16); Calcium 8.7 mg/dL (8.4-10.2); Carbon Dioxide 30 mmol/L (22-29); Chloride 100 mmol/L (96-108); Creatinine Clr Calc Pharmacy 41.1; Estimated Glomerular Filt Rate 42; Potassium 3.2 mmol/L (3.3-5.1); Sodium 141 mmol/L (135-145)
[2025-05-13] MEDS: Lidocaine 4 % Patch ADH..PATCH 1 PATCH TRANSDERMA (07:53)
--- NOTE | 2025-05-13 08:59 | P.DS_ITS ---
DS: Providers Provider Date of Service: 05/13/25 Date of admission: 05/03/25 20:23 Date of discharge: 05/13/25 Primary care physician: JANAK Cohen Consults: 05/05/25 11:08 Consult to Nephrology Routine Consulting Provider: [facility] [place] Reason for consultation: PREM DS: Diagnosis Discharge Diagnosis (1) Acute hypotension: Status: Acute DS: Summary Hospital Course Hospital Course: Admit HPI Chief Complaint: Abnormal labs The patient is a 65-year-old female with a past medical history significant for multiple sclerosis with gradually progressive decline in his functional status with spasm disorder, CAD with stenting of the LAD in 2012 , SDH, chronic kidney disorder, pulmonary embolism on eliquis, ?CVA, type 2 diabetes, chronic pain disorder on recent admission 04/18/25 to 04/22/25 with 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 Patient reports facility has been monitoring hemoglobin due to being low for a couple days.? Per chart review hemoglobin the last past 3 days 6.8 to 6.9. Patient is on Eliquis for previous diagnosis of PE and new diagnosis of paroxysmal atrial fibrillation in last admission.? Denies hemoptysis and changes in stool color Laboratory data significant for hemoglobin 7.5, hematocrit 24.3, BUN 33, creatinine 2.97, proBNP 06901, and lactate 2.1 Imaging: My personal interpretation: Chest CT: ?Trace right pleural effusion, no evidence of acute infection Bilateral Venous duplex:? No evidence of DVT.? Left Duarte's cyst. Lower leg superficial soft tissue edema. ED course: Blood pressure in the ED initially normotensive, but later became hypotensive map <60s. ?Patient received a total of 600 mL bolus and 1 unit of RBC in the emergency department. ?Attempted to get a 1L bolus of LR but patient unable to tolerate due to tachypnea. ?Required initiation of Levophed. ? Hospital course: 65-year-old lady with underlying multiple sclerosis with slow decline of functional status with underlying spasms, CAD status post LAD stent in 2012, SDH, CKD, previously on Eliquis, CVA, diabetes mellitus AFib status pacemaker on 04/21 admitted on 05/03/2025 with acute renal failur, leg swelling, UTI, hypot ension with poor response to IV fluid resuscitation requiring pressor support. She was transfered to medical floor the next day PREM, likely cardiorenal, and hypotension. This has resolved with correction of low blood pressure, and diuressis from fluid oveerload. Initially creatine was 2.56 and peaked 2.97 and has gradually come down to now 1.28. FENa was 0.4 so likely prerenal. HYpotension, believed to be related to volume depletion and dehydration and was given IVF and eventually, vasopressors briefly in ICU, and midodrine which was later discontinued and she has continued to maintain BP. Acute on chronic HFpEF, likely related to fluid overload for IVF rescuination. Her initial weight was reported 73 kilo, went up to 85 and has come down to now 77. BNP was 11K , went up to 13 K and has come down to 7K now. She was put on IV Lasix 4o bid, resulting in weigh coming down and BNP trending down. Previously documented leg edema has resolved, she has no shortness and reporting feeling good. She will be transitioned to oral Lasix at 40 mg twice daily. UTI - ceftriaxone 05/04-05/11 [can complete with cefuroxime], UCx contaminated anemia of chronic disease: transfused 1u in ICU; guaiac negative; recheck H+H tomorrow Hypokalemia/hypomagnesemia replaced, potassium is 3.2 today, mag 1.7 Will give potassium supplement of 20 meq daily while on Lasix and should continue periodic monitoring on outpatient basis. hx PE: continue apixaban pAF, tachy-dalia syndrome s/p PPM: continue apixaban, diltiazem hypothyroidism: continue levothyroxine chronic pain: continue morphine sulfate DM2: resume home regimen Dispo: Patient was recommended for short term rehab but has been adamantly declined Time Attestation Discharge Coordination Time (in mins): 45 Quality: Safe Use of Opioids Does Pt have an Active Cancer Diagnosis on the Problem List?: No Quality: Stroke Does the patient have a stroke diagnosis?: No Physical Exam Vital Signs: Vital Signs: Last Vital Signs Temp 96.8 F 05/12/25 08:00 Pulse 65 05/12/25 08:00 Resp 16 05/12/25 08:00 BP 153/68 H 05/12/25 09:04 Pulse Ox 97 05/12/25 08:00 O2 Del Method Room Air 05/12/25 08:00 O2 Flow Rate 2 05/08/25 07:39 BMI result Body Mass Index 32.8 DS: Data Data Completed and Pending Completed studies during hospitalization [Text1]: Procedures Insertion of Pacemaker Lead into Right Atrium, Percutaneous Endoscopic Approach (04/18/25) Insertion of Pacemaker, Single Chamber into Chest Subcutaneous Tissue and Fascia, Open Approach (04/18/25) Labs on day of discharge: Laboratory Results - last 24 hr 05/11/25 05/11/25 05/11/25 11:51 16:15 20:17 Hold Purple Top Sodium Potassium Chloride Carbon Dioxide Anion Gap BUN Creatinine Estim Creat Clear Calc Estimated GFR POC Glucose 122 H 133 H 135 H Random Glucose Calcium Magnesium NT-Pro-B Natriuret Pep 05/12/25 05/12/25 06:31 07:25 Hold Purple Top SEE NOTE Sodium 140 Potassium 3.6 Chloride 104 Carbon Dioxide 26 Anion Gap 14 BUN 17 H Creatinine 1.15 Estim Creat Clear Calc 46.9 Estimated GFR 47 POC Glucose 96 Random Glucose 86 Calcium 8.7 Magnesium 1.6 NT-Pro-B Natriuret Pep 7216.9 H Discharge Plan Discharge Anticipated Discharge Date/Time: 05/13/25 09:27 Patient Disposition: Home Health Service Discharge Diagnosis: Acute renal failure, hypotension, anemia Referrals: Shahnaz RASHID [Outside] - 1 Week Griselda Bello FNP [Primary Care Provider, [facility]] - 1 Week Discharge Medications: New furosemide [Lasix] 40 mg tablet 40 mg PO BID Qty: 180 0RF Continued amantadine HCl 100 mg capsule 100 mg PO BID promethazine 25 mg tablet 25 mg PO Q6H PRN (Reason: Nausea) brimonidine 0.2 % drops 1 drp ophthalmic (eye) BID montelukast 10 mg tablet 10 mg PO DAILY dorzolamide 2 % drops 1 drp ophthalmic (eye) BID modafinil 100 mg tablet 100 mg PO BID sildenafil (pulm.hypertension) 20 mg tablet 20 mg PO TID Eliquis 5 mg tablet 5 mg PO BID spironolactone 25 mg Tablet 25 mg PO DAILY latanoprost 0.005 % Drops 1 drp OPHTHALMIC (EYE) BEDTIME Dupixent Syringe 300 mg/2 mL Syringe 300 mg SUBCUT Q2W levothyroxine 75 mcg Tablet 75 mcg PO DAILY@0600 lidocaine 4 % Adhesive Patch,Medicated 2 patch TOPICAL DAILY Rx Instructions: apply to back albuterol sulfate 2.5 mg /3 mL (0.083 %) Solution For Nebulization 2.5 mg INHALATION Q6H PRN (Reason: Wheezing) trazodone 50 mg Tablet 50 mg PO Q6H PRN (Reason: Insomnia) metoprolol succinate 50 mg Tablet Extended Release 24 Hr 50 mg PO DAILY dextrose [Glucose Gel] 40 % Gel 15 g PO Q15M PRN (Reason: fsbs < 50 and able to swallow) Rx Instructions: until symptoms of low blood sugar are controlled thiamine HCl (vitamin B1) 100 mg Tablet 100 mg PO DAILY diltiazem HCl 300 mg Capsule,Extended Release 24 Hr 300 mg PO DAILY pantoprazole 20 mg Tablet,Delayed Release (Dr/Ec) 20 mg PO DAILY@0630 ketorolac 0.5 % drops 1 drp ophthalmic-Right TID dextroamphetamine-amphetamine [Adderall] 30 mg Tablet 30 mg PO DAILY prednisolone acetate 1 % drops,suspension 1 drp ophthalmic-Right TID magnesium hydroxide [Milk of Magnesia] 400 mg/5 mL Suspension 30 ml PO BEDTIME PRN (Reason: Constipation) bisacodyl 10 mg Suppository 10 mg MN DAILY PRN (Reason: Constipation) Fleet Enema 19-7 gram/118 mL Enema 118 ml MN BEDTIME PRN (Reason: Constipation) camphor-menthol 0.5-0.5 % Lotion 1 appl TOPICAL BID PRN (Reason: Itching) aspirin 81 mg Tablet,Chewable 81 mg PO DAILY nystatin 100,000 unit/gram Powder 1 appl TOPICAL BID insulin lispro [Humalog U-100 Insulin] 100 unit/mL Solution 1 sliding scale dose SUBCUT TIDAC Protocol: Insulin Correction Scale Less than or equal to 110 ---- Give (units): 0 111 to 150 Give (units): 0 151 to 200 Give (units): 2 201 to 250 Give (units): 4 251 to 300 Give (units): 6 301 to 350 Give (units): 8 Greater than 350 Give (units): 10 Call MD if Blood Glucose > : 350 glucagon 1 mg Recon Soln 1 mg SUBCUT Q20M PRN (Reason: fsbs beloq 60 and unable to swallow) Rx Instructions: until target blood sugar attained multivitamin with minerals Tablet 1 tab PO DAILY diazepam 5 mg tablet 5 mg PO Q8H PRN (Reason: Anxiety) sodium chloride 7 % Solution For Nebulization 1 inh INHALATION BID insulin glargine [Lantus Solostar U-100 Insulin] 100 unit/mL (3 mL) Insulin Pen 30 unit SUBCUT BEDTIME diclofenac sodium 1 % Gel 2 g TOPICAL QID Rx Instructions: apply to single elbow, wrist or hand; for hand includes palm/fingers/back of hand melatonin 5 mg Tablet 5 mg PO BEDTIME Jardiance 10 mg Tablet 10 mg PO DAILY Trulicity 3 mg/0.5 mL Pen Injector 3 mg SUBCUT TU@0900 acetaminophen 325 mg Tablet 975 mg PO Q6H PRN (Reason: Pain, Mild 1-3,Fever,Headache) 30 Days Qty: 90 0RF naloxone 0.4 mg/mL Solution 0.04 mg IVPUSH Q5M PRN (Reason: Excessive sedation or RR < 8) 30 Days Qty: 10 2RF tramadol 50 mg Tablet 50 mg PO Q6H PRN (Reason: Pain, Moderate(Pain Scale 4-6)) 10 Days Qty: 14 0RF morphine 15 mg tablet 15 mg PO Q8H PRN (Reason: Pain) 10 Days Qty: 10 0RF Discontinued torsemide 20 mg Tablet 40 mg PO DAILY Discharge Orders: Discharge Order (Routine); Ordered 05/13/25 Ordered By: Ashok Duron Diet: Advance to usual diet Activity on Discharge: As tolerated Stand Alone Forms: Patient Portal Discharge page Print Language: Mohawk Care Plan Goals: recovery from icu hospitalization for low blood pressure, kidney, fluid overload/heart failure Health Concerns: UTI, Hypotension, fluid overload/heart failure Plan of Treatment: stop taking Torsemide and instead take Lasix as directed continue taking all other medications as directed Assessment: see above
--- NOTE | 2025-05-13 09:17 | MHC.CM.PN ---
Addendum entered by Daniella Ferris 05/13/25 10:57: CTS RUN # [id number] Original Note: PT SCHEDULED FOR 1200 HOUR TRANSPORT WITH [facility] PT IS REFUSING STR AND PLANS TO DC HOME WITH RESUMPTION OF [facility] AND [facility] WAS NOTIFIED OF DC AND WILL RESUME SERVICES [facility] NOTIFIED OF DC VIA [facility]
[2025-05-13 10:54] VITALS: BP 125/58
[2025-05-13 11:34] LABS: Glucose, Whole Blood 145 mg/dL (60-115)
--- NOTE | 2025-05-13 11:43 | W.MHC.F2F ---
Service Date Service Date: 05/13/25 Encounter Date of encounter: 05/13/25 Reasons for Services Signs and symptoms assessed: weakness, sob realted to heart failure Reason for assisted: medication management, medication treatment and teach disease management Reason for physical therapy: therapeutic exercises and energy conservation Homebound: Leaving the home is medically contraindicated at this time without the asist of a device and/or another person due th the listed conditions above and below. Reason homebound: shortness of breath with minimal effort and weakness related to hospital stay Homebound supporting statement: Homebound due to weakness related to hospitalization, shortness of breath from heart failure underlying MS and therefore needs the assistance of another person Certification: Based on the above findings, I certify that this patient is confined to the home and needs intermittent assisted care, physical therapy and/or speech therapy, or continues to need occupational therapy. The patient is under my care, and I have initiated the establishment of the plan of care. The patient will be followed by a physician who will periodically review the plan of care. Time Spent With Patient Time: Total time managing care of this patient today ____ minutes.
[2025-05-13] MEDS: Potassium Chloride ER 20 MEQ TAB.ER.PRT PO (12:04)
[2025-05-13 13:55] VITALS: BP 129/61; PULSE 64; RESP 16; TEMP 36.9; O2SAT 98
== END 2025-05-13 14:02 | disposition home health service (06) | DRG 314 ==
LOC: HO.ED 20:26 → HO.EDOVER 20:29 → HO.ICU 20:34 → HO.IMC 05-04 12:05 → HO.S3 05-08 15:35
PROVIDERS: Family Medicine; Hospitalist; Internal Medicine Pulmonary Disease; Physician Assistant Medical; Admitting Provider Registered Nurse Community Health; Emergency Provider Student in an Organized Health Care Education/Training Program; Visit Provider Internal Medicine
DX: I95.9 Hypotension, unspecified (principal); I50.33 Acute on chronic diastolic (congestive) heart failure; N17.9 Acute kidney failure, unspecified; N39.0 Urinary tract infection, site not specified; I25.10 Atherosclerotic heart disease of native coronary artery without angina pectoris; N18.32 Chronic kidney disease, stage 3b; I48.0 Paroxysmal atrial fibrillation; I49.5 Sick sinus syndrome; D63.1 Anemia in chronic kidney disease; G35.D Multiple sclerosis, unspecified; E11.22 Type 2 diabetes mellitus with diabetic chronic kidney disease; Z66 Do not resuscitate; E03.9 Hypothyroidism, unspecified; E87.6 Hypokalemia; E83.42 Hypomagnesemia; G89.29 Other chronic pain; M71.22 Synovial cyst of popliteal space [Baker], left knee; E86.0 Dehydration; Z20.822 Contact with and (suspected) exposure to COVID-19; Z95.0 Presence of cardiac pacemaker; Z86.711 Personal history of pulmonary embolism; Z79.01 Long term (current) use of anticoagulants; Z79.82 Long term (current) use of aspirin; Z79.85 Long-term (current) use of injectable non-insulin antidiabetic drugs; Z79.890 Hormone replacement therapy; Z79.899 Other long term (current) drug therapy
CPT/HCPCS: 36415; 36600; 71045; 71250; 74176; 76775; 80048; 80053; 81001; 82010; 82040; 82272; 82570; 82607; 82728; 82746; 82803; 82947; 83540; 83605; 83615; 83735; 83880; 84100; 84145; 84300; 84484; 84550; 85018; 85025; 85027; 85045; 85610; 86850; 86900; 86901; 86923; 87040; 87086; 87637; 93005; 93970; 97162; 97530; 99285; J0696; J1644; J1938; J2270; J3475; J7120; P9016; P9047

== ENCOUNTER → 2025-05-03 14:44 | Outpatient (BNV) | payer OTHER, SELFPAY | PROVIDERS: Visit Provider Radiology Diagnostic Radiology | DX: R60.0 Localized edema (principal); I51.7 Cardiomegaly; J90 Pleural effusion, not elsewhere classified | CPT/HCPCS: 74176 ==

== ENCOUNTER → 2025-05-03 14:45 | Outpatient (BNV) | payer OTHER, SELFPAY | PROVIDERS: Visit Provider Internal Medicine Cardiovascular Disease | DX: R94.31 Abnormal electrocardiogram [ECG] [EKG] (principal); Z95.0 Presence of cardiac pacemaker | CPT/HCPCS: 93010 ==

== ENCOUNTER 2025-05-03 20:23 | Outpatient (BNV) | payer OTHER, SELFPAY | END 2025-05-05 11:28 | PROVIDERS: Admitting Provider Registered Nurse Community Health; Emergency Provider Student in an Organized Health Care Education/Training Program; Visit Provider Radiology Diagnostic Radiology | DX: N28.1 Cyst of kidney, acquired (principal) | CPT/HCPCS: 76775 ==

== ENCOUNTER 2025-05-03 20:23 | Outpatient (BNV) | payer OTHER, SELFPAY | END 2025-05-09 19:50 | PROVIDERS: Admitting Provider Registered Nurse Community Health; Emergency Provider Student in an Organized Health Care Education/Training Program; Visit Provider Radiology Diagnostic Radiology | DX: J90 Pleural effusion, not elsewhere classified (principal); J98.4 Other disorders of lung | CPT/HCPCS: 71045 ==

== ENCOUNTER 2025-05-03 20:23 | Outpatient (BNV) | payer OTHER, SELFPAY | END 2025-05-09 16:06 | PROVIDERS: Admitting Provider Registered Nurse Community Health; Emergency Provider Student in an Organized Health Care Education/Training Program; Visit Provider Internal Medicine | DX: I48.91 Unspecified atrial fibrillation (principal); Z95.0 Presence of cardiac pacemaker | CPT/HCPCS: 93010 ==

== ENCOUNTER → 2025-05-03 20:23 | Outpatient (BNV) | payer OTHER, SELFPAY | PROVIDERS: Admitting Provider Registered Nurse Community Health; Emergency Provider Student in an Organized Health Care Education/Training Program; Visit Provider Hospitalist | DX: I95.9 Hypotension, unspecified (principal) | CPT/HCPCS: 99232; 99499 ==

== ENCOUNTER → 2025-05-03 20:23 | Outpatient (BNV) | payer OTHER, SELFPAY | PROVIDERS: Admitting Provider Registered Nurse Community Health; Emergency Provider Student in an Organized Health Care Education/Training Program; Visit Provider Registered Nurse Community Health | DX: E11.9 Type 2 diabetes mellitus without complications (principal); N17.9 Acute kidney failure, unspecified; R10.9 Unspecified abdominal pain; R60.0 Localized edema; D64.9 Anemia, unspecified; I95.9 Hypotension, unspecified | CPT/HCPCS: 99291 ==

== ENCOUNTER → 2025-05-03 20:23 | Outpatient (BNV) | payer OTHER, SELFPAY | PROVIDERS: Admitting Provider Registered Nurse Community Health; Emergency Provider Student in an Organized Health Care Education/Training Program; Visit Provider Internal Medicine Pulmonary Disease | DX: E11.9 Type 2 diabetes mellitus without complications (principal); I25.10 Atherosclerotic heart disease of native coronary artery without angina pectoris; N39.0 Urinary tract infection, site not specified; I95.9 Hypotension, unspecified; I48.91 Unspecified atrial fibrillation | CPT/HCPCS: 99291 ==

== ENCOUNTER 2025-05-19 13:22 | Outpatient (REF) | payer OTHER, SELFPAY ==
[2025-05-19 13:25] LABS: MANUAL DIFF FLAG NO
[2025-05-19 13:28] LABS: Hematocrit 30.9 % (37.0-47.0); Hemoglobin 9.3 g/dl (12.0-16.0); Imm Gran Abs Auto 0.06 X10*3/uL (0.00-0.03); Imm Gran Pct Auto 0.8 % (0.0-0.4); Lymphocytes Absolute Auto 1.2 X10*3/uL (1.2-4.9); Mean Corpuscular HGB Conc 30.1 g/dl (31.0-35.0); Mean Corpuscular Hemoglobin 28.4 pg (27.0-33.0); Mean Corpuscular Volume 94.2 fL (80.0-98.0); NRBC Abs Auto 0.000 X10*3/uL (0.0-0.012); NRBC Pct Auto 0.0 /100WBC (0.0-0.2); Platelet Count 154 X10*3/uL (160-400); Red Blood Count 3.28 X10*6/uL (4.20-5.50); White Blood Count 7.2 X10*3/uL (4.8-10.8)
[2025-05-19 14:30] LABS: Anion Gap 18 (12-20); Blood Urea Nitrogen 30 mg/dL (9-16); Calcium 9.1 mg/dL (8.4-10.2); Carbon Dioxide 28 mmol/L (22-29); Chloride 98 mmol/L (96-108); Estimated Glomerular Filt Rate 18; Magnesium 2.7 mg/dL (1.6-2.6); Potassium 3.6 mmol/L (3.3-5.1); Sodium 140 mmol/L (135-145)
== END 2025-05-19 13:23 ==
LOC: HO.HVNA 13:22
DX: E87.6 Hypokalemia (principal)
CPT/HCPCS: 36415; 80048; 83735; 85025

== ENCOUNTER 2025-05-25 14:20 | Inpatient (IN) | payer OTHER, SELFPAY ==
[2025-05-25] VITALS (17 sets, daily range): BP systolic 62–144; BP diastolic 25–96; PULSE 49–116; RESP 10–18; TEMP 36.2–36.6; O2SAT 88–100; BMI 29.7; BMI 30.4
--- NOTE | ~2025-05-25 | XR_ITS ---
CLINICAL HISTORY: hypoxia 1 view chest x-ray. Comparison: CT/REG/SR - ABDOMEN ABD_PEL_WITHOUT (ADULT) - 05/29/25 12:54 EST CR - XR CHEST 1V - 05/28/25 18:03 EST Findings: There is a stable small right pleural effusion and right basilar atelectasis. Lungs appear otherwise clear. Cardiomediastinal silhouette is stable. Pacemaker lead is in the right ventricle. IMPRESSION: Stable small right pleural effusion. This document has been electronically signed by: Vijay Salazar MD on 05/30/2025 03:49:12
--- NOTE | ~2025-05-25 | XR_ITS ---
EXAMINATION: XR CHEST CLINICAL INFORMATION: dyspnea COMPARISON: May 09, 2025. TECHNIQUE: Portable AP upright view of the chest was obtained. FINDINGS: Blunting of the right costophrenic angle with a meniscal shaped opacity right lower hemithorax. No pneumothorax. Cardiomediastinal silhouette size is unchanged. Single electrode lead in the right heart chambers likely ventricle. Pacemaker reservoir in the left upper hemithorax. XR/XR chest 1V IMPRESSION: Right-sided pleural effusion, moderate volume. Cardiomegaly versus pericardial effusion. Electronically signed by: Jarad Pérez MD 05/25/2025 03:33 PM EST RP
--- NOTE | ~2025-05-25 | CT_ITS ---
CLINICAL HISTORY: Gi bleed, ? colitis CT abdomen and pelvis without contrast Comparison: CT/REG/SR - CT ABDOMEN PELVIS WO IV CON - 05/25/25 18:22 EST Findings: Limited examination without contrast Heart is enlarged. Small right pleural effusion. Cholecystectomy. Mild nodular appearance of the liver surface. Unremarkable additional solid organs. No urolithiasis. No bowel obstruction, pneumoperitoneum, or pneumatosis. Atherosclerosis calcification of the aorta. Small ascites. Soft tissue anasarca. Hysterectomy. Appendix is not visualized. No acute fracture. IMPRESSION: Mildly increase in size of the small right pleural effusion. Stable small ascites. Soft tissue anasarca. This document has been electronically signed by: Erwin Odell MD on 05/29/2025 14:35:31
--- NOTE | ~2025-05-25 | CT_ITS ---
CLINICAL HISTORY: ARF Exam: Unenhanced CT abdomen and pelvis with multiplanar reformats. Comparison: 05/03/2025. Findings: CT abdomen: Small right pleural effusion is slightly increased since the prior exam. Liver is free of gross focal lesions and ductal dilatation. Gallbladder is absent. Spleen appears unremarkable. Pancreas and adrenal glands appear unremarkable. Kidneys appear unremarkable. No urolithiasis or hydroureteronephrosis. There is small volume ascites, minimally increased since prior exam. No retroperitoneal masses or adenopathy. Abdominal aorta is normal caliber with [id number] calcific athero sclerosis. Bowel loops reveal no abnormal wall thickening or distention. Sequela of prior partial sigmoid colonic resection are re-identified. No evidence of operative complication or obstruction. CT pelvis: A Maza catheter is present within urinary bladder. Uterus is surgically absent. No pelvic masses or adenopathy. There is similar-appearing anasarca. Osseous structures reveal no destructive osseous lesions. Impression: 1. Small volume ascites, mildly increased since the prior exam. 2. Slightly increased right pleural effusion. 3. Anasarca. This document has been electronically signed by: Fabricio Call MD on 05/25/2025 20:29:46
--- NOTE | ~2025-05-25 | XR_ITS ---
CLINICAL HISTORY: R IJ placed 1 view chest x-ray Comparison: CR/SR - XR CHEST 1 VIEW - 05/25/25 15:22 EST CR - XR CHEST 1V - 05/09/25 19:50 EST Findings: Tip of the right IJ is overlying the superior right atrium. Small right pleural effusion is stable. Mild increase of interstitial lung markings. There is enlargement of the cardiopericardial silhouette. Pacemaker. No acute fracture. IMPRESSION: Tip of right IJ overlying the superior right atrium. This document has been electronically signed by: Erwin Odell MD on 05/25/2025 18:06:53
--- NOTE | ~2025-05-25 | US_ITS ---
CLINICAL HISTORY: leg swelling Venous duplex ultrasound bilateral lower extremity Comparison: US/SR - US LOWER EXTREMITY VEINS BILATERAL - 05/03/25 15:59 EST Findings: The visualized deep veins are fully compressible with normal Doppler color flow and spectral tracings. No popliteal cyst. There is soft tissue edema. IMPRESSION: 1. Negative for bilateral lower extremity deep vein thrombosis. This document has been electronically signed by: Erwin Odell MD on 05/25/2025 18:35:58
--- NOTE | ~2025-05-25 | CT_ITS ---
CLINICAL HISTORY: non focal encephalopathy CT Brain without contrast Comparison: None FINDINGS: Cortical sulci: There is diffuse prominence of the cortical sulci compatible with age-related atrophy. Ventricles: Normal for age Brain parenchyma: There is patchy lucency throughout the deep white matter indicating chronic microvascular leukomalacia. Extra axial spaces: Normal Posterior Fossa: Normal Extracranial soft tissues: Normal Additional abnormality: None IMPRESSION: Age-related atrophy with chronic microvascular leukomalacia. No hemorrhage, mass effect, or acute findings identified. This document has been electronically signed by: Erwin Odell MD on 05/25/2025 19:54:11
--- NOTE | ~2025-05-25 | XR_ITS ---
CLINICAL HISTORY: sudden onset dyspnea 1 view chest x-ray Comparison: CR - XR CHEST 1V - 05/30/25 02:40 EST Findings: Small right effusion with basilar subsegmental atelectasis or infiltrate. Mild enlargement of the cardiac silhouette with left anterior chest wall pacemaker. No acute fracture. IMPRESSION: Small right effusion with basilar subsegmental atelectasis or infiltrate. This document has been electronically signed by: Darion Knowles MD, PHD on 06/02/2025 03:35:53
--- NOTE | ~2025-05-25 | XR_ITS ---
CLINICAL HISTORY: hypoxia 1 view chest x-ray Comparison: CR - XR CHEST 1V - 05/25/25 17:37 EST Findings: There is enlargement of the cardiopericardial silhouette. Pacemaker. Unchanged thickening of the right paratracheal stripe. New small left pleural effusion. Increase in size of the small right pleural effusion. There is right basilar opacity. Mild increase of interstitial lung markings. No acute fracture. IMPRESSION: New small left pleural effusion. Increase in size of the small right pleural effusion. Atelectasis/infiltrate of the right lung base. This document has been electronically signed by: Erwin Odell MD on 05/28/2025 18:34:21
--- NOTE | ~2025-05-25 | XR_ITS ---
EXAMINATION: XR FOOT, RIGHT CLINICAL INFORMATION: Right foot bruising COMPARISON: None available. TECHNIQUE: AP and lateral views of the right foot. FINDINGS: There is osteopenia involving the medial fifth metatarsal heads. There are small enthesophytes at the plantar fascia and Achilles tendon calcaneal attachments. No other abnormalities are seen. XR/XR foot RT 2V IMPRESSION: There is osteopenia with loss of the cortical white line involving the fourth and fifth metatarsal heads. This could be related to technique and overexposure, however underlying etiologies such as inflammatory arthropathy and septic arthritis are not ruled out. Correlate for signs symptoms. Electronically signed by: Yehuda Woodall MD 05/25/2025 04:32 PM EST
--- NOTE | 2025-05-25 14:51 | ECG_ITS ---
Test Reason : sob Blood Pressure : */* mmHG Vent. Rate : 50 BPM Atrial Rate : 0 BPM P-R Int : * ms QRS Dur : 190 ms QT Int : 674 ms P-R-T Axes : * 134 -39 degrees QTcB Int : 614 ms Ventricular-paced rhythm Abnormal ECG When compared with ECG of 09-May-2025 16:06, Previous ECG has undetermined rhythm, needs review Referred By: Tali Bowers Electronically Signed By: Franklin Ayers
[2025-05-25 15:24] LABS: MANUAL DIFF FLAG NO
[2025-05-25 15:26] LABS: Hematocrit 30.3 % (37.0-47.0); Hemoglobin 8.9 g/dl (12.0-16.0); Imm Gran Abs Auto 0.06 X10*3/uL (0.00-0.03); Imm Gran Pct Auto 0.6 % (0.0-0.4); Lymphocytes Absolute Auto 1.0 X10*3/uL (1.2-4.9); Mean Corpuscular HGB Conc 29.4 g/dl (31.0-35.0); Mean Corpuscular Hemoglobin 28.2 pg (27.0-33.0); Mean Corpuscular Volume 95.9 fL (80.0-98.0); NRBC Abs Auto 0.020 X10*3/uL (0.0-0.012); NRBC Pct Auto 0.2 /100WBC (0.0-0.2); Platelet Count 192 X10*3/uL (160-400); Red Blood Count 3.16 X10*6/uL (4.20-5.50); White Blood Count 9.4 X10*3/uL (4.8-10.8)
[2025-05-25 16:00] LABS: Troponin-I High Sensitivity 122.5 ng/L (<3.5-17.0)
[2025-05-25 16:01] LABS: Resp Syncy Virus RNA Qual PCR NEGATIVE (Negative); SARS COV2 PCR INHOUSE NEGATIVE (Negative)
--- NOTE | 2025-05-25 16:01 | ED_ITS ---
HPI - General Adult General Chief complaint: General Medical Stated complaint: SOB LAST NIGHT PER EMS Time Seen by Provider: 05/25/25 15:02 Source: family (son) History of Present Illness ED Provider: kavitha HPI narrative: 65 F hx multiple sclerosis with gradually progressive decline in his functional status with spasm disorder, CAD with stenting of the LAD in 2012 , SDH, chronic kidney disorder, pulmonary embolism on eliquis, ?CVA, type 2 diabetes, chronic pain . I feel weak unable to characterize additional reasons for presentation to ED. Related Data Home Medications ?Medication ?Instructions ?Recorded ?Confirmed amantadine HCl 100 mg capsule 100 mg PO BID 12/13/22 1 07/26/24 apixaban 5 mg tablet (Eliquis) 5 mg PO BID 12/13/22 brimonidine 0.2 % eye drops 1 drp ophthalmic (eye) BID 12/13/22 05/25/25 dorzolamide 2 % eye drops 1 drp ophthalmic (eye) BID 0 12/13/22 05/25/25 montelukast 10 mg tablet 10 mg PO DAILY 12/13/2205/09 sildenafil (pulm.hypertension) 20 20 mg PO TID 3 05/25/25 mg tablet albuterol sulfate 2.5 mg/3 mL 2.5 mg inhalation Q6H AR N Wheezing 04/17/25 05/25/25 (0.083 %) solution for nebulization aspirin 81 mg chewable tablet 81 mg PO DAILY 04/17/25 05/25/25 camphor-menthol 0.5 %-0.5 % lotion 1 appl topical BID PRN Itching 04/17/25 05/25/25 dextroamphetamine-amphetamine 30 30 mg PO DAILY 05/25/25 mg tablet (Adderall) diazepam 5 mg tablet 5 mg PO Q8H PRN Anxiety/spas m 04/17/25 05/25/25 diclofenac sodium 1 % topical gel 2 g topical QID 03/0305/25/25 dulaglutide 3 mg/0.5 mL 3 mg subcut TU@0900 04/17/25 05/25/25 subcutaneous pen injector (Trulicity) latanoprost 0.005 % eye drops 1 drp ophthalmic (eye) B EDTIME 04/17/25 05/25/25 levothyroxine 75 mcg tablet 75 mcg PO DAILY@0600 04/1705/25/25 lidocaine 4 % topical patch 2 patch topical DAILY 03/0305/25/25 multivitamin with minerals 1 tab PO DAILY 04/17/25 sodium chloride 7 % for 1 inh inhalation BID 5 05/25/25 nebulization thiamine HCl (vitamin B1) 100 mg 100 mg PO DAILY 04/1705/25/25 tablet furosemide 40 mg tablet (Lasix) 40 mg PO BID@0900,1700 05/25/25 05/25/25 pantoprazole 20 mg tablet,delayed 20 mg PO DAILY@0630 PRN Gastric 05/25/25 05/25/25 release Reflux Previous Rx's ?Medication ?Instructions ?Recorded morphine 15 mg immediate release 15 mg PO Q8H PRN Pain 10 days #10 04/22/25 tablet tabs Allergies Allergy/AdvReac Type Severity Reaction Status Date / Time diphenhydramine (From Allergy Severe Anaphylaxis Verified 05/25/25 14:38 Benadryl) Penicillins Allergy Severe Anaphylaxis Verified 05/25/25 14:38 Sulfa (Sulfonamide Allergy Severe Anaphylaxis Verified 05/25/25 14:38 Antibiotics) clarithromycin Allergy Intermediate Shortness Verified 05/25/25 14:38 of Breath gabapentin Allergy Intermediate Confusion Verified 05/25/25 14:38 hydrochlorothiazide (From Allergy Intermediate Shortness Verified 05/25/25 14:38 Hyzaar) of Breath levofloxacin (From Levaquin) Allergy Intermediate dizziness/h Verified 05/25/25 14:38 eadache/ulices sea losartan (From Cozaar) Allergy Intermediate Shortness Verified 05/25/25 14:38 of Breath metformin Allergy Intermediate strange Verified 05/25/25 14:38 feeling amoxicillin (From Augmentin) Allergy Unknown Unknown Verified 05/03/25 14:31 clavulanic acid (From Allergy Unknown Unknown Verified 05/03/25 14:31 Augmentin) duloxetine (From Cymbalta) Allergy Unknown Unknown Verified 05/03/25 14:31 fluoxetine Allergy Unknown Unknown Verified 05/03/25 14:31 NSAIDS (Non-Steroidal Allergy Unknown Unknown Verified 05/03/25 14:31 Anti-Inflamma pregabalin AdvReac Intermediate Dizziness Verified 05/03/25 14:31 doxycycline AdvReac Mild Gastrointestinal Verified 05/03/25 14:31 Upset PMFSH Past Medical History Medical History (Updated 05/26/25 @ 11:51 by Allan Youngblood MD) Atrial fibrillation Diabetes mellitus Anemia CAD (coronary artery disease) Heart valve regurgitation Gitelman syndrome Polycystic ovarian syndrome Myocardial infarction Sleep apnea Fibromyalgia COPD (chronic obstructive pulmonary disease) Mild asthma Orthostatic hypotension Raynaud's disease Pulmonary embolism Coronary atherosclerosis HTN (hypertension) Neuropathy Multiple sclerosis Chronic pain syndrome PTSD (post-traumatic stress disorder) Opioid dependence Depression Hypercalcemia Elevated cholesterol Type 2 diabetes mellitus Thyroid nodule Hypothyroid Surgical History Hx of reduction mammoplasty Hx of tubal ligation Hx of hernia repair History of rectal surgery History of colon resection S/P panniculectomy History of lobectomy of thyroid Hx of hysterectomy Hx of appendectomy Hx of dilation and curettage Hx of heart artery stent Social History Social History Household Members: Children Household Members Other:: Jony Bah Housing: Apartment Are you a primary healthcare insurance sales agent to a significant other at home: No Do you presently have visiting nurse or other home services: Yes Patient Tobacco Use Status: Former Tobacco user Tobacco use type: Cigarette Years Smoked: 40 Second Hand Smoke Exposure: No Currently Displaying Signs/Symptoms of Drug Intoxication Withdrawal: No Have you been hit, kicked, punched, or otherwise hurt by someone within the past year? If so, by whom?: No Do you feel safe in your current relationship?: No Current Relationship Is there a partner from a previous relationship who is making you feel unsafe now?: No Are you made to feel afraid or neglected: No Restoration Healthcare Practices: Non-denomenational Advance Directives: No Advance Directives Information Provided: Yes Do you have a plan to hurt others: No Plan Recently lost weight without trying: Unsure Eating poorly because of decreased appetite: Yes Nutrition Risks: Poor intake 0-25% >4 days Patient : No : No Poor oral hygiene: No service: No Physical Exam ED Exam Exam: EXAM: Gen: Sleepy occasionally closing her eyes. Responsive with a hoarse voice. Symmetric face. Looks slightly dehydrated slightly pale chronically ill Head: Atraumatic Eyes: Anicteric, Normal conjunctiva. ENT: Moist mucosa, no pallor. ? Neck: Supple. Skin: ?No observable rash or bruising on exposed or examined skin Respiratory: Breathing comfortably, No distress.Clear to auscultation bilaterally, symmetric chest expansion, No wheeze, rales, ronchi. Cardiovascular: Regular rate and rhythm. No murmurs or rub. Well perfused periphery, warm extremities. No edema. ? Abdominal: No focal tenderness. Soft, no objective distension. No palpable masses or obvious organomegaly. ?No guarding, no rebound tenderness or other peritoneal findings. : No flank tenderness. Neuro: Alert. Gross movement of all extremities intact. ?No focal motor weaknesses Psych: Calm. Cooperative. MSK: No grossly visible deformity. Bruising tender in the mid foot she has a Raynaud's but feels there was bruising of the toes discoloration that is not typical for her Vital signs: See flowsheet Vital Signs: Vital Signs - 24 hr 05/25/25 14:33 05/25/25 16:20 05/25/25 16:58 Temperature 97.6 F 97.9 F Pulse Rate 50 49 L 49 L Respiratory Rate 18 18 Blood Pressure 117/78 88/40 L 70/40 L Pulse Oximetry 92 93 Oxygen Delivery Method Room Air Nasal Cannula Oxygen Flow Rate 2 05/25/25 16:59 05/25/25 17:34 05/25/25 17:56 Temperature Pulse Rate 50 55 Respiratory Rate 16 Blood Pressure 89/39 L 109/43 L 141/31 H Pulse Oximetry 100 Oxygen Delivery Method Nasal Cannula Oxygen Flow Rate 2 05/25/25 18:16 05/25/25 19:45 Temperature 97.4 F Pulse Rate 50 52 Respiratory Rate 16 16 Blood Pressure 135/86 129/96 H Pulse Oximetry 99 97 Oxygen Delivery Method Room Air Room Air Oxygen Flow Rate BMI result Body Mass Index 29.7 Course Reevaluation(s) Reevaluation #1: 7415: I have reassessed the patient with a focused sepsis reexamination. She has received 1.5 L of fluid still hypotensive I feel this is unlikely to be septic shock she is not febrile there was no clear bacterial infectious source on examination or history. Multifactorial shock possibly right-sided or cardiogenic, dehydration. Lactic acid pending. Blood cultures antibiotics. Reevaluation #2: 5:57 PM 05/25/2025 (Dr. Eliseo Gutierrez): Patient now normotensive on very low-dose norepinephrine 0.05 mcg per kg per minute. I reviewed her previous echo which did show D sign and right-sided heart failure this is consistent with what I saw today unlikely acute etiology doubt massive PE though this was considered we will get DVT ultrasound just to exclude that. She has been adherent with the apixaban. The patient did have some significant oozing appearance of coagulopathy likely secondary to the apixaban and platelet dysfunction from uremia when I place the central line otherwise uncomplicated. Reviewed previous documentation last month the patient was admitted for UTI with sepsis requiring vasopressors Medications Administered Generic Name Dose Route Start Last Admin Trade Name Freq PRN Reason Stop Dose Admin Apixaban 5 mg 05/25/25 21:00 05/26/25 07:36 Apixaban 5 Mg Tablet PO 5 mg BID ROBERT Administration Dextrose 25 gm 05/25/25 20:51 05/26/25 05:27 Dextrose 50 % 25 Gm/50 Ml Syringe IVPUSH 25 gm Q15M PRN Administration per Hypoglycemia Standing Ord. Protocol Diazepam 5 mg 05/26/25 10:44 05/26/25 11:39 Diazepam 5 Mg Tablet PO 5 mg TID PRN Administration anxiety/restlessness Norepinephrine Bitartrate 8 mg in 250 mls @ 0 mls/hr 05/25/25 17:00 05/26/25 12:02 Levophed IVCONT 0.07 mcg/kg/min .Q0M ROBERT 9.67 mls/hr Protocol Titration Per Protocol Dextrose 1,000 mls @ 50 mls/hr 05/26/25 03:00 05/26/25 03:00 D10 IVCONT 50 mls/hr .Q20H ROBERT Administration Insulin Human Lispro 0 unit 05/25/25 21:00 05/25/25 20:53 Insulin Lispro 100 Unit/Ml 3 Ml Vial SUBCUT Not Given On Hold: 05/26/25 06:00 QIDACHS ROBERT Protocol Sodium Chloride 3 ml 05/26/25 00:00 05/26/25 07:28 0.9 % Sodium Chloride Flush 3 Ml Syringe IVFLUSH 3 ml QSHIFT ROBERT Administration Discontinued Medications Generic Name Dose Route Start Last Admin Trade Name Freq PRN Reason Stop Dose Admin Dextrose 25 gm 05/25/25 21:48 05/25/25 22:15 Dextrose 50 % 25 Gm/50 Ml Syringe IVPUSH 05/25/25 21:49 25 gm ONCE ONE Administration Sodium Chloride 1,000 mls @ 999 mls/hr 05/25/25 16:30 05/25/25 18:16 Ns IV 05/25/25 17:30 Infused .Q1H1M ROBERT Infusion Sodium Chloride 500 mls @ 50 mls/hr 05/25/25 17:00 05/25/25 19:00 Ns IV 05/26/25 02:59 Infused .Q10H ROBERT Infusion Ceftriaxone Sodium 2 gm/ 50 mls @ 100 mls/hr 05/25/25 17:36 05/25/25 18:46 Sodium Chloride IV 05/25/25 18:05 Infused ONCE ONE Infusion Lactated Ringer's 1,000 mls @ 999 mls/hr 05/25/25 19:00 05/25/25 22:17 Lr IV 05/25/25 21:00 Infused .Q1H1M ROBERT Infusion Albumin Human 100 mls @ 100 mls/hr 05/26/25 02:45 05/26/25 03:59 Kedbumin 25 % IV 05/26/25 03:44 Infused Q6H ROBERT Infusion Insulin Human Regular 5 unit 05/25/25 21:48 05/25/25 22:15 Insulin Regular, Human 100 Unit/Ml 10 Ml Vial IVPUSH 05/25/25 21:49 5 unit ONCE ONE Administration Sodium Bicarbonate 50 meq 05/26/25 02:45 05/26/25 02:59 Sodium Bicarbonate 8.4% 50 Meq/50 Ml Syringe IVPUSH 05/26/25 02:46 50 meq ONCE ONE Administration Procedures Procedure Narrative Procedure Narrative: EMERGENCY ULTRASOUND INTERPRETATION-Limited Echocardiography This study was ordered, performed, and interpreted by myself. The study reveals: Impression: Mildly reduced LV function, RV dilated, NO PERICARDIAL EFFUSION Emergent Cardiac for Indication: Views Used: PLAX, PSSA, A4, SX, IVC Pericardial Effusion/Tamponade Findings: NONE RV Dilation (> LV diam in 4ch apical): RV appears dilated Global LV Fx: Mildly Reduced IVC Dilation and Resp Variation: NORMAL Performed by: MD Matt Images were stored CPT:46908 __ EMERGENCY ULTRASOUND INTERPRETATION-Limited Retroperitoneal (Renal) This study was ordered, performed, and interpreted by myself. The study reveals: Impression: NO EVIDENCE OF UROLOGIC OBSTRUCTION Indication: FLANK PAIN Bladder: ANECHOIC URINE Right Kidney: NO HYDRONEPHROSIS Left Kidney: NO HYDRONEPHROSIS Performed by: Eliseo Gutierrez MD Images were stored CPT: 61068 __ Procedure Note Procedure: Central Venous Catheter Insertion- Right Internal Jugular Indication: Hypotension Performed by: Eliseo Gutierrez MD [place] Protocol: a time out was performed and the correct patient and site were verified ? The patient was placed in Trendelenburg. Anesthesia was obtained with local infiltration of 5 ml 1% lidocaine. Hand hygiene was performed prior to procedure. Chlorhexidine used to prep the skin and dried for 2 minutes prior to skin puncture. Traffic was limited during the procedure. Full barrier precaution utilized.? Dynamic ultrasound guidance used and the right internal jugular vein was cannulated. A 7 hungarian triple lumen catheter was placed using the Seldinger technique. All lines flushed and eleuterio nonpulsatile dark venous blood appropriately. The line was secured with sutures at 16 cm. A biopatch and dressing was placed over the site. The patient tolerated the procedure well. A post-line CXR was reviewed demonstrating the tip of the catheter in the SVC. ? Post-Procedure Diagnosis: same as indication Complications: none Estimated Blood Loss:? minimal Specimens Removed: no Prosthetic devices/implants: no Armorer Technician(s): none CPT: 31050; 25904 Medical Decision Making Medical Decision Making [facility] Narrative: Medical Decision Making: [age] female chronic comorbid medical conditions including MS chronic pain on morphine drowsy looks probably secondary to morphine use given her pinpoint pupils Mainly coming because she has unable to get around at home may need we have she has chronic HFpEF no anginal symptoms. Mildly dyspneic. Chronic diffuse pain all over no headache __ Patient BP dropped around 17:00 70/40 taken manually also low. Echo shows dilated RV possibly mildly reduced LV function she is known to have HFpEF. There was no tamponade. IVs distended plethoric she is unlikely to respond to continued intravenous fluids though I will give her 500 more cc. Unclear etiology that she does have known moderate or severe tricuspid regurgitation. Central line will be placed due to the likely need for vasopressors. Looks like she has got acute kidney injury on chronic kidney disease creatinine over 5. K5.9 likely secondary to prerenal PREM/dehydration possibly over- diuresis. No anginal-type chest pain her troponin slightly elevated but this could be secondary to PE, HFpEF. Preliminary Favored Differential Diagnosis: Dehydration, acute kidney injury on chronic kidney disease, hyperkalemia, metabolic derangement, metabolic encephalopathy, toxic encephalopathy, stroke, ICH, less likely urologic obstruction., septic shock unlikely but considered. among additional considered etiologies Testing Interpreted Independently: ?See below for details Radiology or Lab testing Results Reviewed: ?See below for details Consults: ?See below for details Independent Historians/External Chart Reviews: ?See below for details Social Determinants of Health Impacting MDM/Planning: ?See below for details Lab Data 05/26/25 05:10 05/26/25 05:10 Labs: Lab Results 05/25/25 05/25/25 05/25/25 Range/Units 15:17 16:18 17:36 WBC 9.4 (4.8-10.8) X10*3/uL RBC 3.16 L (4.20-5.50) X10*6/uL Hgb 8.9 L (12.0-16.0) g/dl Hct 30.3 L (37.0-47.0) % MCV 95.9 (80.0-98.0) fL MCH 28.2 (27.0-33.0) pg MCHC 29.4 L (31.0-35.0) g/dl RDW 19.5 H (11.0-16.0) % Plt Count 192 (160-400) X10*3/uL MPV 11.3 (9.4-12.3) fL Immature Gran % (Auto) 0.6 H (0.0-0.4) % Neut % (Auto) 79.7 H (45-73) % Lymph % (Auto) 10.2 L (20-40) % [place] % (Auto) 7.8 (2-11) % Eos % (Auto) 0.6 (0-4) % Baso % (Auto) 1.1 (0-2) % Lymph # (Auto) 1.0 L (1.2-4.9) X10*3/uL [place] # (Auto) 0.7 (0.1-1.2) X10*3/uL Eos # (Auto) 0.1 (0.0-0.4) X10*3/uL Baso # (Auto) 0.1 (0.0-0.2) X10*3/uL Abs Immat Gran (auto) 0.06 H (0.00-0.03) X10*3/uL Absolute Neuts (auto) 7.5 (2.0-8.3) x10*3/uL Absolute Nucleated RBC 0.020 H (0.0-0.012) X10*3/uL Nucleated RBC % (auto) 0.2 (0.0-0.2) /100WBC PT (11.2-13.5) SEC INR (0.9-1.1) APTT (26.7-34.1) SEC VBG pH (7.32-7.43) VBG pCO2 mmHg VBG pO2 mmHg VBG HCO3 (22-26) mmol/L VBG O2 Saturation VBG Base Excess mmol/L Sodium 136 (135-145) mmol/L Potassium 5.9 H D (3.3-5.1) mmol/L Chloride 96 (96-108) mmol/L Carbon Dioxide 24 (22-29) mmol/L Anion Gap 22 H (12-20) BUN 56 H (9-16) mg/dL Creatinine 5.48 H* (0.5-1.4) mg/dL Estim Creat Clear Calc 9.4 Estimated GFR 8 Random Glucose 100 (60-115) mg/dL Lactic Acid (0.5-2.0) mmol/L Calcium 9.0 (8.4-10.2) mg/dL Magnesium 4.1 H* (1.6-2.6) mg/dL Total Bilirubin 1.1 H (0.0-1.0) mg/dL AST 45 H (5-31) U/L ALT 12 (0-31) U/L Alkaline Phosphatase 234 H (39-117) U/L Ammonia 38 (13-55) umol/L Troponin I High Sens 122.5 H* D 129.7 H* (<3.5-17.0) ng/L NT-Pro-B Natriuret Pep 69161.3 H (<300) pg/mL Total Protein 6.3 L (6.5-8.0) g/dL Albumin 3.6 (3.5-5.0) g/dL Ethyl Alcohol < 10 mg/dL Influenza Type A (PCR) NEGATIVE (Negative) Influenza Type B (PCR) NEGATIVE (Negative) RSV RNA Qual (PCR) NEGATIVE (Negative) SARS-CoV-2 RNA (RT-PCR) NEGATIVE (Negative) 05/25/25 05/25/25 Range/Units 17:37 17:44 WBC (4.8-10.8) X10*3/uL RBC (4.20-5.50) X10*6/uL Hgb (12.0-16.0) g/dl Hct (37.0-47.0) % MCV (80.0-98.0) fL MCH (27.0-33.0) pg MCHC (31.0-35.0) g/dl RDW (11.0-16.0) % Plt Count (160-400) X10*3/uL MPV (9.4-12.3) fL Immature Gran % (Auto) (0.0-0.4) % Neut % (Auto) (45-73) % Lymph % (Auto) (20-40) % [place] % (Auto) (2-11) % Eos % (Auto) (0-4) % Baso % (Auto) (0-2) % Lymph # (Auto) (1.2-4.9) X10*3/uL [place] # (Auto) (0.1-1.2) X10*3/uL Eos # (Auto) (0.0-0.4) X10*3/uL Baso # (Auto) (0.0-0.2) X10*3/uL Abs Immat Gran (auto) (0.00-0.03) X10*3/uL Absolute Neuts (auto) (2.0-8.3) x10*3/uL Absolute Nucleated RBC (0.0-0.012) X10*3/uL Nucleated RBC % (auto) (0.0-0.2) /100WBC PT 61.1 H D (11.2-13.5) SEC INR 5.2 H* D (0.9-1.1) APTT 57.7 H (26.7-34.1) SEC VBG pH 7.36 (7.32-7.43) VBG pCO2 41 mmHg VBG pO2 53 mmHg VBG HCO3 23 (22-26) mmol/L VBG O2 Saturation TNP VBG Base Excess -1.6 mmol/L Sodium (135-145) mmol/L Potassium (3.3-5.1) mmol/L Chloride (96-108) mmol/L Carbon Dioxide (22-29) mmol/L Anion Gap (12-20) BUN (9-16) mg/dL Creatinine (0.5-1.4) mg/dL Estim Creat Clear Calc Estimated GFR Random Glucose (60-115) mg/dL Lactic Acid 5.9 H* (0.5-2.0) mmol/L Calcium (8.4-10.2) mg/dL Magnesium (1.6-2.6) mg/dL Total Bilirubin (0.0-1.0) mg/dL AST (5-31) U/L ALT (0-31) U/L Alkaline Phosphatase (39-117) U/L Ammonia (13-55) umol/L Troponin I High Sens (<3.5-17.0) ng/L NT-Pro-B Natriuret Pep (<300) pg/mL Total Protein (6.5-8.0) g/dL Albumin (3.5-5.0) g/dL Ethyl Alcohol mg/dL Influenza Type A (PCR) (Negative) Influenza Type B (PCR) (Negative) RSV RNA Qual (PCR) (Negative) SARS-CoV-2 RNA (RT-PCR) (Negative) Critical Care Time Critical Care Time Critical Care Time: Yes Total Critical Care Time: 100 Attestation: ED Critical Care: Authorized and Performed by: Eliseo Gutierrez MD Total critical care time: Approximately 100 min Due to a high probability of clinically significant, life threatening deterioration, the patient required my highest level of preparedness to intervene emergently and I personally spent this critical care time directly and personally managing the patient. This critical care time included obtaining a history; examining the patient; pulse oximetry; ordering and review of studies; arranging urgent treatment with development of a management plan; evaluation of patient's response to treatment; frequent reassessment; and, discussions with other providers. This critical care time was performed to assess and manage the high probability of imminent, life-threatening deterioration that could result in multi-organ failure. It was exclusive of separately billable procedures and treating other patients and teaching time. Discharge Plan Discharge Clinical Impression: Shock Patient Disposition: Admitted As Inpatient Interventions: Admission Worksheet (ED) Last Done: 05/25/25 19:45 Discharge Date/Time: 05/25/25 19:45 Sepsis Bolus Exclusion Sepsis Bolus Exclusion CHF/Renal Failure Date of Occurrence: 05/25/25 Time of Occurrence:: 18:10 This patient met severe sepsis criteria due to the following condition(s):: H ypotension and Lactate>=4mmol/L In my clinical judgement the administration of 30 ml/kg of crystalloid would be detrimental to this patient due to the patient's following conditions:: NYHA class III or IV Heart Failure(symptoms with low exertion or rest), Stage III or IV Chronic Kidney Disease (GFR<30) and Concern for fluid overload Other (must be specific):: R sided severe heart failure Replace the 30 mls/kg with (Zero amount not acceptable and all fluids for severe sepsis must be given at GREATER than 125 mls/hr) *Note: One of the smith must be documented Crystalloids amount given in mls: (rate must be at least 150cc/hr): 1,500 At a rate of (must be > 125 cchr):: 1,000
[2025-05-25 16:48] LABS: Alanine Aminotransferase 12 U/L (0-31); Albumin Level 3.6 g/dL (3.5-5.0); Alkaline Phosphatase 234 U/L (39-117); Anion Gap 22 (12-20); Aspartate Amino Transferase 45 U/L (5-31); Blood Urea Nitrogen 56 mg/dL (9-16); Calcium 9.0 mg/dL (8.4-10.2); Carbon Dioxide 24 mmol/L (22-29); Chloride 96 mmol/L (96-108); Creatinine Clr Calc Pharmacy 9.4; Estimated Glomerular Filt Rate 8; Magnesium 4.1 mg/dL (1.6-2.6); Potassium 5.9 mmol/L (3.3-5.1); Sodium 136 mmol/L (135-145); Total Protein 6.3 g/dL (6.5-8.0)
--- NOTE | 2025-05-25 17:17 | PC.RT ---
Order for abg, pt awake, MD and nurse at bedside preparing for central line placement. Pt with MS has spasmatic movemets, abg difficult. One att only before MD says will obtain with doppler when finished, RT/Nurse aware.
[2025-05-25 17:52] LABS: Venous Blood Gas Refer to POC result
[2025-05-25 17:52] LABS: Ammonia 38 umol/L (13-55)
[2025-05-25 17:54] LABS: VBG HCO3 23 mmol/L (22-26)
[2025-05-25 18:01] LABS: Prothrombin Time 61.1 SEC (11.2-13.5)
[2025-05-25 18:04] LABS: Partial Thromboplastin Time 57.7 SEC (26.7-34.1)
[2025-05-25 18:07] LABS: INTERNATIONAL NORM RATIO 5.2 (0.9-1.1)
[2025-05-25 18:17] LABS: Troponin-I High Sensitivity 129.7 ng/L (<3.5-17.0)
[2025-05-25] MEDS: Lactated Ringers 1,000 ML 999 ML IV ×2 (19:11→21:16)
--- NOTE | 2025-05-25 19:22 | PC.NURSE ---
Patient alert and oriented x 3. Patient has Raynauds so has forehead Oxygen probe on head on room air 100%. Patient has a triple lumen IJ placed by Eliseo. Maza placed at 1810 by this RN 16g no temp sensing. Patient c/o pain. Left forearm 20g iv. Patients bp was dropping fluids given bp was not going up. Patient is on 0.05mcg/kcg/min with good effect. Patient acceptd to ICU.
[2025-05-25 19:43] LABS: Reflex Lactate? Lactic Acid Added
--- NOTE | 2025-05-25 19:45 | PC.NURSE ---
assumed care of pt 1914, pt resting comfortably in stretcher, Norepi infusing thru central line at 0.05mcg/min/kg. BP improved. axox4 speaking full clear sentences. blood noted within central line dressing and dressing seems to be coming off, sterile dressing change completed. o2 removed, pt is 97% on RA. IVF started per aug. Patricia ICU MOVING PICTURE OPERATOR and Eloisa CHIEF FINANCIAL OFFICER at bedside for eval/admissions. requested bedside report and pt was transferred to icu with MOVING PICTURE OPERATOR, Eloisa GARVEY, and transport with pts jenifer at 1944.
--- NOTE | 2025-05-25 20:03 | PM.CCHP ---
History of Present Illness Date of Service: 05/25/25 Attending physician on admission: Allan Youngblood Chief Complaint: SOB The patient is a 65-year-old female with a past medical history significant for multiple sclerosis with spasm disorder, CAD with stenting of the LAD in 2012 , SDH, chronic kidney disorder, pulmonary embolism, paroxysmal atrial fibrillation (eliquis) , tachy-dalia syndrome s/p pacemaker,?CVA, type 2 diabetes, chronic pain disorder, Raynaud's syndrome, and recent admission 05/03/25 to 05/10/25 for UTI, PREM, and hypotension that required short stay in the ICU. ?She presented to emergency department with complaints of shortness of breath that started last night. ?Patient reported overall ?not feeling well?. In the emergency department she was noted to be hypotensive to systolic of 70s, but alert and oriented x3. Laboratory data was significant for serum potassium 5.9, BUN 56, creatinine 5.48, lactic 5.9, magnesium 4.1, troponin 122.5 with repeat 129.7, proBNP 34,599. IMAGING: Chest Xray: ?No acute infectious process. ?No significant pulmonary congestion. Head CT: ?No acute findings Abdominal CT: ?No acute infectious findings Bilateral extremity venous Doppler: No DVTs ED course: Patient received a total of 1.5 L bolus in the emergency department (given slowly due to concern of overload) and ceftriaxone 2 g. ?Central line placed and patient is started on Levophed. Review of Systems Review of Systems: Yes all other systems are reviewed and are negative [facility] Past Medical History Medical History (Updated 05/25/25 @ 22:07 by Patricia Castillo NP) Diabetes mellitus Anemia CAD (coronary artery disease) Heart valve regurgitation Gitelman syndrome Polycystic ovarian syndrome Myocardial infarction Sleep apnea Fibromyalgia COPD (chronic obstructive pulmonary disease) Mild asthma Orthostatic hypotension Raynaud's disease Atrial fibrillation Pulmonary embolism Coronary atherosclerosis HTN (hypertension) Neuropathy Multiple sclerosis Chronic pain syndrome PTSD (post-traumatic stress disorder) Opioid dependence Depression Hypercalcemia Elevated cholesterol Type 2 diabetes mellitus Thyroid nodule Hypothyroid Surgical History Surgical History Hx of reduction mammoplasty Hx of tubal ligation Hx of hernia repair History of rectal surgery History of colon resection S/P panniculectomy History of lobectomy of thyroid Hx of hysterectomy Hx of appendectomy Hx of dilation and curettage Hx of heart artery stent Social History Social History Household Members: Children Household Members Other:: Jony Bah Housing: Apartment Are you a primary client care consultant to a significant other at home: No Do you presently have visiting nurse or other home services: Yes Patient Tobacco Use Status: Former Tobacco user Tobacco use type: Cigarette Years Smoked: 40 Second Hand Smoke Exposure: No Currently Displaying Signs/Symptoms of Drug Intoxication Withdrawal: No Have you been hit, kicked, punched, or otherwise hurt by someone within the past year? If so, by whom?: No Do you feel safe in your current relationship?: No Current Relationship Is there a partner from a previous relationship who is making you feel unsafe now?: No Are you made to feel afraid or neglected: No Evangelical Healthcare Practices: Non-denomenational Advance Directives: No Advance Directives Information Provided: Yes Do you have a plan to hurt others: No Plan Recently lost weight without trying: Unsure Eating poorly because of decreased appetite: Yes Nutrition Risks: Poor intake 0-25% >4 days Patient : No : No Poor oral hygiene: No service: No Meds Allergies Allergy/AdvReac Type Severity Reaction Status Date / Time diphenhydramine (From Allergy Severe Anaphylaxis Verified 05/25/25 14:38 Benadryl) Penicillins Allergy Severe Anaphylaxis Verified 05/25/25 14:38 Sulfa (Sulfonamide Allergy Severe Anaphylaxis Verified 05/25/25 14:38 Antibiotics) clarithromycin Allergy Intermediate Shortness Verified 05/25/25 14:38 of Breath gabapentin Allergy Intermediate Confusion Verified 05/25/25 14:38 hydrochlorothiazide (From Allergy Intermediate Shortness Verified 05/25/25 14:38 Hyzaar) of Breath levofloxacin (From Levaquin) Allergy Intermediate dizziness/h Verified 05/25/25 14:38 eadache/ulices sea losartan (From Cozaar) Allergy Intermediate Shortness Verified 05/25/25 14:38 of Breath metformin Allergy Intermediate strange Verified 05/25/25 14:38 feeling amoxicillin (From Augmentin) Allergy Unknown Unknown Verified 05/03/25 14:31 clavulanic acid (From Allergy Unknown Unknown Verified 05/03/25 14:31 Augmentin) duloxetine (From Cymbalta) Allergy Unknown Unknown Verified 05/03/25 14:31 fluoxetine Allergy Unknown Unknown Verified 05/03/25 14:31 NSAIDS (Non-Steroidal Allergy Unknown Unknown Verified 05/03/25 14:31 Anti-Inflamma pregabalin AdvReac Intermediate Dizziness Verified 05/03/25 14:31 doxycycline AdvReac Mild Gastrointestinal Verified 05/03/25 14:31 Upset Active Medications: Current Medications Norepinephrine Bitartrate (Levophed) 8 mg in 250 mls @ 0 mls/hr IVCONT .Q0M ROBERT; Protocol Last Admin: 05/25/25 17:34 Dose: 0.05 mcg/kg/min, 6.91 mls/hr Lactated Ringer's (Lr) 1,000 mls @ 999 mls/hr IV .Q1H1M ROBERT Stop: 05/25/25 21:00 Last Admin: 05/25/25 19:11 Dose: 999 mls/hr Home Medications ?Medication ?Instructions ?Recorded ?Confirmed ?Last Taken ?Type amantadine HCl 100 mg capsule 100 mg PO BID 12/13/22 05/25/25 Unknown History apixaban 5 mg tablet (Eliquis) 5 mg PO BID 12/13/22 05/25/25 Unknown History brimonidine 0.2 % eye drops 1 drp ophthalmic (eye) BID 12/13/22 05/25/25 Unknown History dorzolamide 2 % eye drops 1 drp ophthalmic (eye) BID 12/13/22 05/25/25 Unknown History montelukast 10 mg tablet 10 mg PO DAILY 12/13/22 05/25/25 Unknown History sildenafil (pulm.hypertension) 20 20 mg PO TID 12/13/22 05/25/25 Unknown History mg tablet albuterol sulfate 2.5 mg/3 mL 2.5 mg inhalation Q6H PRN Wheezing 04/17/25 05/25/25 Unknown History (0.083 %) solution for nebulization aspirin 81 mg chewable tablet 81 mg PO DAILY 04/17/25 05/25/25 Unknown History camphor-menthol 0.5 %-0.5 % lotion 1 appl topical BID PRN Itching 04/17/25 05/25/25 Unknown History dextroamphetamine-amphetamine 30 30 mg PO DAILY 04/17/25 05/25/25 Unknown History mg tablet (Adderall) diazepam 5 mg tablet 5 mg PO Q8H PRN Anxiety/spasm 04/17/25 05/25/25 Unknown History diclofenac sodium 1 % topical gel 2 g topical QID 04/17/25 05/25/25 Unknown History dulaglutide 3 mg/0.5 mL 3 mg subcut TU@0900 04/17/25 05/25/25 Unknown History subcutaneous pen injector (Trulicity) latanoprost 0.005 % eye drops 1 drp ophthalmic (eye) BEDTIME 04/17/25 05/25/25 Unknown History levothyroxine 75 mcg tablet 75 mcg PO DAILY@0600 04/17/25 05/25/25 Unknown History lidocaine 4 % topical patch 2 patch topical DAILY 04/17/25 05/25/25 Unknown History multivitamin with minerals 1 tab PO DAILY 04/17/25 05/25/25 Unknown History sodium chloride 7 % for 1 inh inhalation BID 04/17/25 05/25/25 Unknown History nebulization thiamine HCl (vitamin B1) 100 mg 100 mg PO DAILY 04/17/25 05/25/25 Unknown History tablet furosemide 40 mg tablet (Lasix) 40 mg PO BID@0900,1700 05/25/25 05/25/25 Unknown History pantoprazole 20 mg tablet,delayed 20 mg PO DAILY@0630 PRN Gastric 05/25/25 05/25/25 Unknown History release Reflux Physical Exam Exam: Exam: ?General:? Alert oriented x3 no acute distress.? Speaking full sentences.? Following all commands. ?HEENT:? Head is normocephalic, atraumatic, pupils equal round reactive to light accommodation bilaterally.? Extraocular movements appear intact.? Buccal mucosa is dry, Neck is supple ?Cardiac:? Sinus dalia. Clear S1-S2, no rubs or gallops. NO JVD ?Pulmonary:? Clear to auscultation, no wheezes, rales or rhonchi. ?Abdomen:? ?Abdomen soft, diffuse tenderness in all quadrants, non-distended. No guarding/ rebound tenderness. Normal bowel sounds. No pulsatile mass. No hepatosplenomegaly. ?Musculoskeletal:? Moving all 4 extremities upon request a major joints, there is no crepitus or tenderness.? The strength is 5/5 bilaterally and throughout all 4 extremities.? Gait not assessed at this point. ?Neurologic:? cranial nerves 2-12 are grossly intact.? No focal deficits noted.Motor strength as above.?? ?Skin:?+2 BLE edema. ? No ulcers. skin tears/ Bruising on BUE Vascular:? 2+ pulses upper and lower extremities distally.? Vital Signs: Vital Signs: Last Vital Signs Temp 97.4 F 05/25/25 18:16 Pulse 52 05/25/25 19:45 Resp 16 05/25/25 19:45 BP 129/96 H 05/25/25 19:45 Pulse Ox 97 05/25/25 19:45 O2 Del Method Room Air 05/25/25 19:45 O2 Flow Rate 2 05/25/25 17:56 BMI result Body Mass Index 29.7 Results Labs 05/26/25 05:10 05/26/25 05:10 Labs: Laboratory Results - last 24 hr 05/25/25 05/25/25 05/25/25 15:17 16:18 17:36 MCV 95.9 MCH 28.2 MCHC 29.4 L RDW 19.5 H Plt Count 192 MPV 11.3 Immature Gran % (Auto) 0.6 H Neut % (Auto) 79.7 H Lymph % (Auto) 10.2 L Evans % (Auto) 7.8 Eos % (Auto) 0.6 Baso % (Auto) 1.1 Lymph # (Auto) 1.0 L Evans # (Auto) 0.7 Eos # (Auto) 0.1 Baso # (Auto) 0.1 Abs Immat Gran (auto) 0.06 H Absolute Neuts (auto) 7.5 Absolute Nucleated RBC 0.020 H Nucleated RBC % (auto) 0.2 PT INR APTT VBG pH VBG pCO2 VBG pO2 VBG HCO3 VBG O2 Saturation VBG Base Excess Anion Gap 22 H Estim Creat Clear Calc 9.4 Estimated GFR 8 Random Glucose 100 Lactic Acid Calcium 9.0 Magnesium 4.1 H* Total Bilirubin 1.1 H AST 45 H ALT 12 Alkaline Phosphatase 234 H Ammonia 38 Troponin I High Sens 122.5 H* D 129.7 H* NT-Pro-B Natriuret Pep 67536.3 H Total Protein 6.3 L Albumin 3.6 Ethyl Alcohol < 10 Influenza Type A (PCR) NEGATIVE Influenza Type B (PCR) NEGATIVE RSV RNA Qual (PCR) NEGATIVE SARS-CoV-2 RNA (RT-PCR) NEGATIVE 05/25/25 05/25/25 17:37 17:44 MCV MCH MCHC RDW Plt Count MPV Immature Gran % (Auto) Neut % (Auto) Lymph % (Auto) Evans % (Auto) Eos % (Auto) Baso % (Auto) Lymph # (Auto) Evans # (Auto) Eos # (Auto) Baso # (Auto) Abs Immat Gran (auto) Absolute Neuts (auto) Absolute Nucleated RBC Nucleated RBC % (auto) PT 61.1 H D INR 5.2 H* D APTT 57.7 H VBG pH 7.36 VBG pCO2 41 VBG pO2 53 VBG HCO3 23 VBG O2 Saturation TNP VBG Base Excess -1.6 Anion Gap Estim Creat Clear Calc Estimated GFR Random Glucose Lactic Acid 5.9 H* Calcium Magnesium Total Bilirubin AST ALT Alkaline Phosphatase Ammonia Troponin I High Sens NT-Pro-B Natriuret Pep Total Protein Albumin Ethyl Alcohol Influenza Type A (PCR) Influenza Type B (PCR) RSV RNA Qual (PCR) SARS-CoV-2 RNA (RT-PCR) Imaging Radiologist's Impressions: Impressions Chest X-Ray 05/25/25 15:10 IMPRESSION: Right-sided pleural effusion, moderate volume. Cardiomegaly versus pericardial effusion. Electronically signed by: Jarad Pérez MD 05/25/2025 03:33 PM EST RP Foot X-Ray 05/25/25 16:21 IMPRESSION: There is osteopenia with loss of the cortical white line involving the fourth and fifth metatarsal heads. This could be related to technique and overexposure, however underlying etiologies such as inflammatory arthropathy and septic arthritis are not ruled out. Correlate for signs symptoms. Electronically signed by: Yehuda Woodall MD 05/25/2025 04:32 PM EST RP Assessment and Plan (1) Shock: Status: Acute (2) Acute hypotension: Status: Resolved (3) PREM (acute kidney injury): Status: Resolved (4) Hyperkalemia: Status: Acute (5) Edema, lower extremity: Status: Resolved (6) Lactic acid acidosis: Status: Acute Plan 65-year-old female with a past medical history significant for multiple sclerosis with spasm disorder, CAD (stenting of the LAD in 2012) , SDH, chronic kidney disorder, pulmonary embolism, paroxysmal atrial fibrillation (on eliquis), tachy-dalia syndrome s/p pacemaker,?CVA, type 2 diabetes, Raynaud's syndrome and chronic pain admitted to ICU for acute renal failure and hypotension requiring vasopressor support Neuro:?? No acute issues? Cardiac:? Hypotension:? No evidence of septic shock, lactic is elevated to 5.9, but I believe this is due to PREM/dehydration.? No evidence of acute infection. CT of the abdomen unchanged from previous.? From chart review noted that patient blood pressure is tend to run on the soft side.? With systolics ranging 90s to 100s. ?MAP goal >60.? Wean off vasopressor as tolerated. Bilateral lower extremity edema: ?DVT studies negative for DVTs. ?On assessment patient does not appear to have cellulitis or infectious process. ?Echocardiogram from 04/20/2025 showing Normal LV EF of 55-60%. ?ED physician bedside echo, concerning for overload. ?On physical exam patient does not appear to be overloaded, lungs are clear no JVD, do not believe this is active heart failure exacerbation at this time. ? Elevated troponin: In the ED patient complained of chest pain, EKG with no acute findings. troponin 122.5 with delta 129.7. Patient now denies chest pain. Underlying history of CAD, paroxysmal atrial fibrillation and tachy-dalia syndrome s/p pacemaker 04/21/2025, continue home Eliquis. HOLD sildanifil Pulmonary:? ?No acute issues Renal:? PREM- patient has underlying CKD, but today BUN 56, creatinine 5.48, baseline creatinine tends to range 1.3 to 1.4. ?Potassium is elevated to 5.9. ?Patient is making urine. She is on Lasix twice a day.? Likely over-diuresis is the cause of dehydration and PREM. ?We will give additional 2 L bolus. Will send urine studies.?Continue to trend renal indices and closely monitor intake and output. Hyperkalemia: ?K 5.9, No peaked T-waves, likely due to? PREM. Will give insulin/dextrose due to unable to take po lokelma. Cont to trend ? GI:?? Nonspecific abdominal pain: ?Patient reports diffuse abdominal pain, with no significant rebound tenderness.? CT of the abdomen with no acute findings. Endo:??? Underlying history Diabetes mellitus - ?patient reports she is only on Trulicity, states she usually refuses insulin. ?Check POCs q 6 ID:?? White count within normal limits. Patient has a history of frequent UTIs, we will send UA/UC Heme/Onc:? No acute issues Psych:? No acute issues Miscellaneous: ? no acute issues? Prophylaxis:?Pneumatic boots/ Home eliquis Diet: Pt coughing during nursing bedside swallow. Will place speech Critical care time: 60 MIN CODE: FULL CODE Confirmed with the patient and family Case discussed with attending Dr Youngblood
--- NOTE | 2025-05-25 20:41 | PHA.MEDREC ---
Pharmacy Consult ? Medication Reconciliation Pharmacy has completed the medication reconciliation. Spoke with patient, spoke with son regarding home meds. The patient kept falling asleep. Had to piece together information regarding patients home meds. Patient and son were able to confirm some medications. Ultimately went based on claim history.
[2025-05-25 20:48] LABS: Appearance Urine Turbid; Glucose Urine UA Negative (Negative); PH 5.0 (5.0-9.0); Specific Gravity - Urine 1.025 (1.005-1.025); UMIC TRIGGER UACC YES
[2025-05-25 20:53] LABS: Glucose, Whole Blood 55 mg/dL (60-115)
[2025-05-25 20:53] LABS: Glucose, Whole Blood 67 mg/dL (60-115)
[2025-05-25 20:58] LABS: UACC Culture Trigger YES
--- OUTSIDE RECORDS SUMMARY | 2025-05-25 20:59 | XMS_ITS | Encounter Summary ---
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 Name Role Phone Martin Green MD Primary Care Provider [phone] Encounter Details Date Type Department Care Team (Late Contact Info) Description 05/24/2025 Documentation Only [facility] [address] [place] [address] [address] [place], [place] [address] [place] [address] Social History Tobacco Use Types Packs/Day Years [...] Department Care Team (Late Contact Info) Description 05/26/2025 1:45 PM EST Office Visit [facility] Stephanie [address] Francisco [address] [place] [phone] Antolin Bucio MD [address] [place] [address] [place] [address] documented as of this encounter Visit Diagnoses Not on filedocumented in this encounter Care Teams Gear Grinding Machine Operator Relationship Specialty Start Date End Date Martin Green MD [address] [place] [phone] PCP - General 04/13/19 documented as of this encounter
--- OUTSIDE RECORDS SUMMARY | 2025-05-25 20:59 | XMS_ITS | Data Portability ---
Author Organization [place] [employer] [facility], [facility] Address [address] [place] [phone] Care Team Providers Care Parachute Line Tier Name Role Phone MELCHOR FALK Primary Care Provider [phone] [facility] Referring Provider YESENIA SINGH [...] Assessment and Plan as documented by the Manager Behavior. I provided real-time medical direction via phone for this encounter, and was available for additional phone based assistance as needed. 63-year-old patient is seen for nausea vomiting malaise inability to tolerate PO. Medic initially attempted to reach me however I was on several other [facility] encounters and after approximately 20 minutes I [...] hemoglobin + hematocrit, blood 2022 023 [facility], [address] [place] [address], [phone] 18:39:50 BMP, serum or plasma [address], [address] 18:40:13 rapid SARS CoV 2 Ag, QL IA, respiratory specimen [address], [address] 10:33:12 Referral None recorded. Procedures None recorded. Surgeries None recorded. Imaging None recorded. Medication Orders ipratropium 0.5 mg-albutero l 3 mg (2.5 mg base)/3 mL nebulizatio n soln 2022 023 [email or web address] [facility], [address] [place], [address], 18:35:11 albuterol sulfate 2.5 mg/3 mL (0.083 %) solution for nebulizatio n 2022 023 [email or web address] [facility], [address] [place], [address], 19:14:45 cefpodoxime 200 mg tablet 2022 [facility], [address] [place], [address], 16:06:57 Patient TargetsNo targets recorded. Patient InstructionsNo [...] Not available Not available Not available 02/25/2023 16251 [id number] SNOMED Not Available [facility] - production 4 03:49:04 3318 Substance with sulfonami de structure and antibacte rial mechanism of action (substanc e) medicatio n anaphylax is Not available [facility] 02/25/2023 01611 8003 SNOMED Chelsea Naidu MD [address] [place] [address],[address], [place], [phone], [facility], [place] 3 18:24:47 3319 codeine medicatio n anaphylax is Not available high 02/25/2023 2670 RxHoward Naidu MD [address] [place] [address],[address], [place], [address], [facility], [place] 3 18:25:11 3320 levofloxa gladys medicatio n other Not available [facility] 02/25/2023 62731 Smiley Naidu MD [address] [place] [address],[address], [place], [address], [facility] 3 18:26:08 Medications Name Sig Start Date [...] active Not Available Not Available Not Available [facility] 100,000 unit/gram topical powder active Not Available [...] temperature Respiratory rate Heart rate Oxygen saturation Systolic And Diastolic Provider Name and Address Organization Details Last Updated DateTime 3 98.1 [degF] 16 /min 78 /min 98 % 124/80 mm[Hg] Not Available [facility] - production 3 15:38:55 Date Recorded Body weight Body temperature Body height Heart rate Respiratory rate Systolic And Diastolic Provider Name and Address Organization Details Last Updated DateTime 3 07700.8 g 97.9 [degF] 152.4 cm 68 /min 14 /min 110/70 mm[Hg] Not Available [facility] - production 3 15:34:21 Date Recorded Heart rate Body height Oxygen saturation Body weight Body temperature Respiratory rate Systolic And Diastolic Provider Name and Address Organization Details Last Updated DateTime 3 83 /min 157.48 cm 98 % 91455.7 2 g 97.9 [degF] 16 /min 154/81 mm[Hg] Not Available [employer] [employer] - production 3 18:33:30 Date Recorded Body weight Oxygen saturation Respiratory rate Body height Heart rate Systolic And Diastolic Provider Name and Address Organization Details Last Updated DateTime 3 73604.7 2 g 98 % 18 /min 157.48 cm 88 /min 168/99 mm[Hg] Not Available [facility] - production 3 17:07:37 Date Recorded Body weight Heart rate Body temperature Oxygen saturation Respiratory rate Body height Systolic And Diastolic Provider Name and Address Organization Details Last Updated DateTime 3 53581.6 8 g 93 /min 98.4 [degF] 100 % 18 /min 157.48 cm 138/84 mm[Hg] Not Available [employer] [employer] 3 16:49:01 Social History None recorded. Functional Status None recorded. Mental Status None recorded. Family History Nothing Reported. Medical History No medical history recorded. Gynecological HistoryNo gynecological history recorded. Obstetrics History GPAL:G 0 P 0 0 0 0 Past Encounters Encounter ID Performer Location Encounter Start Date Encounter Closed Date Diagnosis/Indication Diagnosis SNOMED-CT Code Diagnosis ICD10 Code Diagnosis IMO Codes Diagnosis Note [id number] Chelsea Naidu MD Main - [address] [phone] 02/25/2023 15:38:30 02/26/2023 11:50:47 Acute urinary tract infection 821542707 N39.0 [id number] Gil Giang MD Main - [address] [address] 03/13/2023 15:34:17 03/18/2023 00:09:10 Community acquired pneumonia 428423381 J18.9 Patient with extensive past medical history [...] but will wait for PCP to draw. [id number] Shane Jean Baptiste MD Main - [facility] [address] [place] [phone] 03/30/2023 18:33:28 03/30/2023 22:56:56 Dyspnea on exertion 50730955 R06.09 As noted, we were called to see this patient regarding concerns of trouble breathing in setting of chronic lung disease. Evaluation in the field was performed by my coat joiner lockstitch colleague, as noted above, I provided real-time [...] symptoms, particular ly worsening shortness of breath. [id number] Deonna Adams MD Main - [facility] [address] [place] [phone] 03/31/2023 17:07:35 04/01/2023 09:33:32 Chronic obstructive pulmonary disease 76251140 J44.9 63 year old female with COPD, [...] assessment and plan as documented by the coat joiner lockstitch. I provided real-time medical direction for this encounter and was immediatel y available to provide additional phone-base d assistance as needed. [id number] Janusz Pierre MD [address] [address] 05/26/2023 16:26:00 05/29/2023 11:45:49 Health Concerns Section Related Observation LastModified by Organization Detai ls LastModified Time None Recorded Concern Status LastModified by Organization Details LastModified Time None Recorded Advance Directives Directive None Recorded Payers Insurance Date Sequence Insurance Name Policy Number Policy Albert Covered Member ID Albert Member ID Guarantor Name 01/21/2025 1 [facility] - DOS ON OR AFTER 2022 - DUAL ELIGIBLE - SENIOR LIVING OPTIONS AND ONE CARE (MEDICARE REPLACEMENT/AD VANTAGE - HMO) Bella Shabazz [id number] Bella Shabazz Notes Date Note Type Note [...] ....................... ....................... ....................... ....................... ....................... ....................... ... Manager Behavior Note From Salbador Owens: PT complains of [...] ... Disposition: Fulfilled Chelsea Naidu MD [address] [facility],[address], [place], [address], [employer] 02/25/2023 18:30:31 03/13/2023 text/html ROS as noted [...] ....................... ....................... ....................... ....................... ....................... ....................... ... Manager Behavior Note From Sukh Patel: Pt caox3 complains [...] Cough infrequent and productive. Clears airway well. [facility] orders nebulizer, administered as noted. [facility] advises pt to take prescribed prednisone and use nebulizer. I went and picked up her meds so she could take her prednisone MJ. Covid neg via rapid POC. Red flags and pt education discussed. ....................... ....................... ....................... ....................... ....................... ....................... ... Disposition: Fulfilled Gil Giang MD [address] [facility],[address], [place], [address], [employer] 03/13/2023 19:15:49 03/30/2023 text/html CRC Nursing Assessment: [...] ....................... ....................... ....................... ....................... ....................... ....................... ... Manager Behavior Note From Mark Tapia: Pt reports having small lung disease, MS, CVA, VT. Pt sts she began with a dry cough 3 days ago which became productive last night. Her box cutter started her on azithromycin and methylprednisolone yesterday. [...] albuterol neb. Pt instructed to f/u with box cutter and/or PCP tomorrow and to seek emergent medical care for new or worsening sx, which are reviewed with her. ....................... ....................... ....................... ....................... ....................... ....................... ... Disposition: Fulfilled Shane Jean Baptiste MD [address] [facility],[address], [place], [address], [employer] 03/30/2023 21:39:32 03/31/2023 text/html HPI: CP reporting SOB>requesting breathing treatment>working on getting a nebulizer but states its been a process. ....................... ....................... ....................... ....................... ....................... ....................... ... [facility] Nursing Assessment: Comments: Members CP calling in to request a visit, member identified via /name. Member requesting neb treatment. [facility]. Member with chronic lung disease, on steroids and azithro per her box cutter. Member is awaiting a neb machine. Member stable per CP, and red flags were discussed. ....................... ....................... ....................... ....................... ....................... ....................... ... Manager Behavior Note From Tata Browne: Sent to a call for a follow up visit to administer a neb treatment. SC8 arrives on scene, pt is alert and oriented, airway is patent. Pt states she has MS and small lung disease, and has been on a combination of antibiotics and/or steroids since Feb prescribed by her box cutter. Pt also states her box cutter ordered a nebulizer in Feb, but she hasn't received it yet. Pt states she was evaluated/given a duo neb yesterday by [facility] with improvement. Pt's care team requested another [...] kit is left with pt to use. [facility] consulted and no orders given. Red flags discussed. Pt has no further questions. ....................... ....................... ....................... ....................... ....................... ....................... ... Disposition: Fulfilled Deonna Adams MD [address] [facility],[address], [place], [address], [place] [employer] 03/31/2023 21:27:26 05/26/2023 text/html HPI: Yola is a 63 yo female with significant medical hx including MS, Raynaud's disease, HTN, PTSD, Old VT, COPD, chronic pain syndrome, Hypomagnesemia, Hypokalemia, Type [...] with little urine output each void attempt. Mbr denies chest pain and at baseline sob [...] and best number to reach Mbr is [phone]. Sent GC activity to CP alerting CP that an [facility] referral was sent in by this CRU RN. ....................... ....................... ....................... ....................... ....................... ....................... ... CRC Nursing Assessment: Comments: Reviewed - Lorelei GARVEY ....................... ....................... ....................... ....................... ....................... ....................... ... Manager Behavior Note From Tata Browne: Sent to a [...] yellow, clear, concentrated; Urine dip: uploaded to [employer]. Pt requests IV fluids stating she doesn't think she can drink fluid due to nausea. Pt states Zofran doesn't work for her. Unable to obtain C contact initially. Attempts at IV access unsuccessful. Pt requests transport to ED stating her symptoms will only get worse and she needs IV fluids. 911 called, Pt care transferred to [facility] Dept. Pt transported to [facility] ED. [facility] advised of pt's situation and choice to go to ED. ....................... ....................... ....................... ....................... ....................... ....................... ... Disposition: Fulfilled Janusz Pierre MD [address] [place] [address],[address], [place], [address], [employer] 05/29/2023 11:45:46 OBGyn Episode No OBEpisode recorded.
--- OUTSIDE RECORDS SUMMARY | 2025-05-25 20:59 | XMS_ITS | Encounter Summary ---
Author Organization [facility], Address [address] [place] [address] Phone Care Team Providers Care Dispersion Mixer Name Role Phone Martin Green MD Primary Care Provider [phone] Encounter Details Date Type Department Care Team (Late Contact Info) Description 10/17/2022 Documentation Only [facility] [place] [phone] Martin Green MD [address] [place] [phone] Social History Tobacco Use Types Packs/Day Years [...] Care Team (Late st Contact Info) Description 05/26/2025 1:45 PM EST [facility] [place] [address] Antolin Bucio MD [address] [place] [address] [place] [phone] documented as of this encounter Visit Diagnoses Not on filedocumented in this encounter Care Teams Dispersion Mixer Relationship Specialty Start Date End Date Martin Green MD [address] [place] [phone] PCP - General 04/13/19 documented as of this encounter
--- OUTSIDE RECORDS SUMMARY | 2025-05-25 20:59 | XMS_ITS | Encounter Summary ---
Author Organization [facility] Address [address] [place] [address] Care Team Providers Care Personal Carer Name Role Phone Martin Green Primary Care Provider [phone] Encounter Details Date Type Department Care Team ([facility] Contact Info) Description 08/27/2024 OY LX Therapies Message [facility] Financial Clearance Department [address] [place] [address] MycharNetviewer, Generic Provider [facility] [place] [phone] No Auth required Social History Tobacco Use [...] Department Care Team (Late Contact Info) Description 08/25/2025 2:00 PM EDT Office Visit [facility] [address] [place] [address] Costume Technician: Kenneth Walsh MD PhD [address] [place] [address] documented as of this encounter Visit Diagnoses Not on filedocumented in this encounter Care Teams Personal Carer Relationship Specialty Start Date End Date Martin Green [address] [place] [phone] PCP - General Internal Medicine 10/08/18 documented as of this encounter
--- OUTSIDE RECORDS SUMMARY | 2025-05-25 20:59 | XMS_ITS | Clinical Summary ---
Author Organization [facility] Address [address] [place] [address] Care Team Providers Care Clinical Psychology Professor Name Role Phone Martin Green Primary Care Provider [phone] Allergies Active Allergy Reactions Criticality Noted Date [...] Type Department Care Team Description 03/24/2025 Telephone [facility] [address] [place] [address] Sleeping Car Porter: Vania Waterman LPN 03/17/2025 Orders Only [facility] Multiple Sclerosis [address] [address] Sleeping Car Porter: Kecia Galicia MD 03/09/2025 Telephone [facility] [address] [place] [address] Sleeping Car Porter: Vania Waterman LPN 03/08/2025 Telephone [facility]clerosis [address] [address] Sleeping Car Porter: Ben Turcios LPN 03/08/2025 Refill [facility] [address] [place] [address] Sleeping Car Porter: Kenneth Walsh MD PhD Demyelinating disease 03/03/2025 Telephone [facility] [address] [place] [address] Sleeping Car Porter: Lucie Reece CCMA PAC Clinical Questions 03/03/2025 Telephone [facility] [address] [place] [address] Sleeping Car Porter: Elizabeth Hummel Telephone Intake, Staff PAC General Info 02/25/2025 Telephone [facility] [address] [place] [address] Sleeping Car Porter: Charles Phillips MA 02/23/2025 Refill [facility] [address] [place] [address] Sleeping Car Porter: Kenneth Walsh MD PhD Demyelinating disease from Last 3 Months Social [...] Description 08/25/2025 2:00 PM EDT Office Visit [facility] [address] [place] [address] Sleeping Car Porter: Kenneth Walsh MD PhD [address] [place] [address] Health Maintenance Due Date Last Done Comments [...] this topic Procedures * Due to [place] [employer] law, this organization might not be sharing negative HIV tests. Procedure Name Priority Date/Time Associated Diagnosis Comments IMAGING - SCANNED Routine 03/17/2025 11: 59 AM EDT IMAGING - SCANNED Routine 03/17/2025 11: 58 AM EDT BRAIN C- ICOMETRIX CPT 37079 Routine 03/05/2025 4:10 PM EDT Multiple sclerosis (HCC) Cerebrovascular disease from Last 3 Months Results * Due to [place] [employer] law, this organization might not be sharing [...] PM EDT Narrative 03/08/2025 11:26 AM EDT [facility] Accession Number: [id number] Patient Name: Bella Shabazz Date of : 1960 Date of Exam: 03-05-2025 Referring Physician: Kenneth Carter [facility] [address] [place] [address] Exam: MR Brain (C-) Icometrix CPT 34127, 0866T Room Description: [facility] 3.0T MRI Brain W/O Icometrix INDICATION / [...] sclerosis. No evidence of progressive disease. WSN: [id number] Ordering Physician: Kenneth Carter Electronically Signed By: Danielle Larsen MD Procedure Note Provider, [place] [address]/30/2025 [facility] Accession Number: [id number] Patient Name: Bella Shabazz Date of : 1960 Date of Exam: 03-05-2025 Referring Physician: Kenneth Carter [facility] [address] [place], [place] [id number] Exam: MR Brain (C-) Icometrix CPT 14734, 0866T Room Description: [facility] 3.0T MRI Brain W/O Icometrix INDICATION / [...] sclerosis. No evidence of progressive disease. WSN: [id number] Ordering Physician: Kenneth Carter Electronically Signed By: Danielle Larsen MD Kenneth Carter MD PhD IMG MRI PROCEDURES Anlge l Result from Last 3 Months Insurance [facility] Care Teams Clinical Psychology Professor Relationship Specialty Start Date End Date Martin Green [address] [place] [phone] PCP - General Internal Medicine 10/08/18
--- OUTSIDE RECORDS SUMMARY | 2025-05-25 20:59 | XMS_ITS | Encounter Summary ---
Author Organization [facility] Address [address] [place] [address] Care Team Providers Care Aeronautical Design Engineer Name Role Phone Martin Green Primary Care Provider [phone] Encounter Details Date Type Department Care Team (Late st Contact Info) Description 05/10/2022 Telephone [facility] Central Scheduling Department [address] [place] [address] Telephone Intake, Staff Social History Tobacco Use [...] Description 08/25/2025 2:00 PM EDT Office Visit [facility] [address] [place] [address] Cook Cashier Food Prep: Kenneth Walsh MD PhD [address] [place] [address] documented as of this encounter Visit Diagnoses Not on filedocumented in this encounter Care Teams Aeronautical Design Engineer Relationship Specialty Start Date End Date Martin Green [address] [place] [address] PCP - General Internal Medicine 10/08/18 documented as of this encounter
--- OUTSIDE RECORDS SUMMARY | 2025-05-25 20:59 | XMS_ITS | Encounter Summary ---
Author Organization [facility] Address [address] [place] [address] Care Team Providers Care Peoplesoft Functional Analyst Name Role Phone Martin Green Primary Care Provider [phone] Reason for Visit * Reason Onset Date Comments cs appointment reschedule 11/18/2022 Encounter Details Date Type Department Care Team (Late st Contact Info) Description 11/18/2022 Telephone [facility] Central Scheduling Department [address] [place] [address] Telephone Intake, Staff cs appointment reschedule Social [...] only come Fri, Friday or . Bella: [phone] Thank you documented in this encounter Plan of Treatment Upcoming Encounters Date Type Department Care Team (Late Contact Info) Description 08/25/2025 2:00 PM EDT Office Visit [facility] [address] [place] [address] Green Promotions Specialist: Kenneth Walsh MD PhD [address] [place] [phone] documented as of this encounter Visit Diagnoses Not on filedocumented in this encounter Care Teams Peoplesoft Functional Analyst Relationship Specialty Start Date End Date Martin Green [address] [place] [phone] PCP - General Internal Medicine 10/08/18 documented as of this encounter
--- OUTSIDE RECORDS SUMMARY | 2025-05-25 20:59 | XMS_ITS | Clinical Summary ---
Author Organization [facility], Address [address] [place] [address] Phone Care Team Providers Care Process Chemist Name Role Phone Maritn Green MD Primary Care Provider [phone] Allergies Active Allergy Reactions Criticality Noted Date [...] 2 Active cholecalciferol (VITAMIN D-3) 1.25 MG (04893 UT) tablet Take 50,000 Units by mouth [...] Chronic kidney disease stage 2 03/29/2021 04/10/2021 Encounters Date Type Department Care Team Description 05/24/2025 Documentation Only [facility], [address] [place] [address] Xander Roth MA from Last 3 Months Immunizations Immunization Administration Dates Next Due Pfizer [...] 09/03/2022 1:43 PM EDT Plan of Treatment Upcoming Encounters Date Type Department Care Team (Late st Contact Info) Description 05/26/2025 1:45 PM EST Office Visit [facility], SHARON - Raffaele [address]MOLE[address] [place] [phone] Antolin Bucio MD [address] [place] [address] [place] [address] Health Maintenance Due Date Last Done Comments Breast Cancer Screening 1960 Colorectal Cancer Screening: Annual FOBT 2007 Colorectal Cancer Screening: Colonoscopy 2007 Colorectal Cancer Screening: Sigmoidoscopy 2007 Hepatitis B Vaccine (1 of 3 - Risk 3-dose series) 2018 Diabetes: Hemoglobin A1C 08/30/2019 Diabetes: Ophthalmology Exam 08/30/2019 Diabetes: Pedal Pulse Checked 08/30/2019 Diabetes: Sensory Foot Exam 08/30/2019 Diabetes: Visual Foot Exam 08/30/2019 Pneumococcal Vaccine: 50+ Ye ars (4 of 4 - PCV20 or PCV21) 10/07/2022 10/07/2017, 06/30/2014, 12/11/2012 Influenza Vaccine (#1) 2025 Pneumococcal Vaccine: Peds ( 0 to 5 Years) and At-Risk Patients (6 to 49 Years) Discontinued 10/07/2017, 06/30/2014, 12/11/2012 Insurance [facility] Dual SNP ([id number]) HILARY SMITH [phone] Care Teams Process Chemist Relationship Specialty Start Date End Date Martin Green MD [address] [place] [phone] [facility] - General 04/13/19
[2025-05-25 21:06] LABS: ~Lactic Acid-LAB USE ONLY 7.0 mmol/L (0.5-2.0)
[2025-05-25 21:07] LABS: Anion Gap 24 (12-20); Blood Urea Nitrogen 55 mg/dL (9-16); Calcium 8.8 mg/dL (8.4-10.2); Carbon Dioxide 22 mmol/L (22-29); Chloride 97 mmol/L (96-108); Creatinine Clr Calc Pharmacy 9.6; Estimated Glomerular Filt Rate 8; Magnesium 3.9 mg/dL (1.6-2.6); Potassium 5.5 mmol/L (3.3-5.1); Sodium 137 mmol/L (135-145)
[2025-05-25 21:10] LABS: Glucose, Whole Blood 106 mg/dL (60-115)
[2025-05-25 21:28] LABS: Glucose, Whole Blood 116 mg/dL (60-115)
[2025-05-25 21:45] LABS: Glucose, Whole Blood 140 mg/dL (60-115)
[2025-05-25 22:32] LABS: Reflex Lactate? 2 Y
[2025-05-25 23:10] LABS: Glucose, Whole Blood 142 mg/dL (60-115)
[2025-05-26] VITALS (33 sets, daily range): BP systolic 106–138; BP diastolic 19–69; PULSE 54–75; RESP 10–28; TEMP 36.2–37.1; O2SAT 88–97; BMI 31.5
[2025-05-26 00:02] LABS: ~Lactic Acid-LAB USE ONLY 7.4 mmol/L (0.5-2.0)
[2025-05-26 00:25] LABS: Glucose, Whole Blood 108 mg/dL (60-115)
[2025-05-26] MEDS: 0.9 % Sodium Chloride Flush 3 ML SYRINGE IVFLUSH ×3 (00:27→15:29)
--- NOTE | 2025-05-26 00:58 | HO.SKINPHOTO ---
Location: coccyx Location: Buttocks Location: left forearm Location: right anterior foot Location: right medial foot
[2025-05-26 01:08] LABS: Glucose, Whole Blood 95 mg/dL (60-115)
--- NOTE | 2025-05-26 01:13 | PC.NURSE ---
Meter Repairer Helper and ICU covering [employer] Patricia Castillo rounded to patient's bedside in ED for initial patient evaluation. Meter Repairer Helper obtained bedside report from ED RN then transferred with assistance from anxillary transport staff to ICU 253 per [employer]GER verbal request, at approximately 19:45. Patient was oriented to room, bed mechanics, call rush, and plan of care. At time of handoff/admit, levophed infusing at 0.05mcg/kg/min and LR bolus bag one of two infusing via right IJ triple lumen central line. [employer]GER verbal orders for map goal 60 and above and SBP >100. Please see MAR for levophed titrations. SB-NSR resting HR primarily 50-60's with on-demand v-pacing, prolonged qtc. Pt denies chest pain, palpitations, dizziness, or pressure. +radial and dp, pt pulses. +cms. Edema to ankles and feet. Lungs are clear/dim throughout. Patient weaned from 1L nc per co2 retaininer parameters. Of note, patient has Raynaud's with difficulty obtaining spo2 reading accurately on fingers and toes. Spo2 forehead probe produces best continuous reading, readings ranging 86-91% on room air, though reads higher up to 98% when correlated with respiratory therapy's portable ear probe. D/W [employer]. Pt denies sob. Breathing remains even and unlabored without distress. Pt alert, answering orientation questions appropriately though increasingly drowsy on admission assessment. POC obtained x2, showing 55 and 67, respectively. [employer] notified with amp d50 ordered and given. +Effect, POC rechecks per protocol 106->116->140, and patient more wakeful. Lactic acid, bmp, phos, and mag ordered and sent. Critical lab results back 21:00 hour: lactic acid 7.0, magnesium 3.9, and creatinine 5.36. On review of other lab results, potassium noted to be elevated at 5.5. Patient administered five units regular insulin and another amp of d50, with POCs advised q1hr x3 starting at 23:00 per [employer]. POCs trend as follows: 142->108->95. [employer]GER made aware with verbal orders to obtain POC in 2hrs (at ~03:00). Patient mentation intact/maintained, easily arousable to voice and care. Pt remains NPO with oral swabs pending formal speech eval after coughing noted on sipping water with eliquis in the evening with [employer]GER present at bedside. Aspiration precautions enacted, pt educated on min HOB 30 degrees. F/C in place, little urine output. [employer]GER made aware. U/A sent in the evening as ordered. Barrier cream and foam applied to reddened coccyx with open area. Skin tears to left arm; xeroform and new foams applied. Please see skin photos note. Pt on low air loss bed with q2hr turning/repositoning. Bed alarm on and safety measures in place. Call rush within reach and educated on use. Plan of care enacted.
[2025-05-26 02:49] LABS: Glucose, Whole Blood 71 mg/dL (60-115)
[2025-05-26] MEDS: Albumin Human 25 % 100 ML IV (02:59)
[2025-05-26] MEDS: Dextrose 10 % 1,000 ML 50 ML IVCONT (03:00)
[2025-05-26 05:20] LABS: VBG HCO3 25 mmol/L (22-26); VBG O2 % Saturation 81.0 %
[2025-05-26 05:21] LABS: Glucose, Whole Blood 69 mg/dL (60-115)
[2025-05-26 05:24] LABS: Hematocrit 26.6 % (37.0-47.0); Hemoglobin 7.9 g/dl (12.0-16.0); Imm Gran Abs Auto 0.09 X10*3/uL (0.00-0.03); Imm Gran Pct Auto 0.8 % (0.0-0.4); Lymphocytes Absolute Auto 1.4 X10*3/uL (1.2-4.9); MANUAL DIFF FLAG NO; Mean Corpuscular HGB Conc 29.7 g/dl (31.0-35.0); Mean Corpuscular Hemoglobin 27.9 pg (27.0-33.0); Mean Corpuscular Volume 94.0 fL (80.0-98.0); NRBC Abs Auto 0.040 X10*3/uL (0.0-0.012); NRBC Pct Auto 0.3 /100WBC (0.0-0.2); Platelet Count 211 X10*3/uL (160-400); Red Blood Count 2.83 X10*6/uL (4.20-5.50); White Blood Count 11.5 X10*3/uL (4.8-10.8)
[2025-05-26 05:35] LABS: Venous Blood Gas Refer to POC result
[2025-05-26 05:50] LABS: Glucose, Whole Blood 165 mg/dL (60-115)
[2025-05-26 05:50] LABS: Alanine Aminotransferase 11 U/L (0-31); Albumin Level 3.7 g/dL (3.5-5.0); Alkaline Phosphatase 207 U/L (39-117); Anion Gap 22 (12-20); Aspartate Amino Transferase 50 U/L (5-31); Blood Urea Nitrogen 55 mg/dL (9-16); Calcium 8.6 mg/dL (8.4-10.2); Carbon Dioxide 23 mmol/L (22-29); Chloride 97 mmol/L (96-108); Creatinine Clr Calc Pharmacy 9.8; Estimated Glomerular Filt Rate 8; Magnesium 3.7 mg/dL (1.6-2.6); Potassium 5.1 mmol/L (3.3-5.1); Sodium 137 mmol/L (135-145); Total Protein 6.1 g/dL (6.5-8.0)
[2025-05-26 05:57] LABS: Troponin-I High Sensitivity 157.3 ng/L (<3.5-17.0)
--- NOTE | 2025-05-26 06:00 | ECG_ITS ---
Test Reason : Prolong QTC management Blood Pressure : */* mmHG Vent. Rate : 55 BPM Atrial Rate : * BPM P-R Int : * ms QRS Dur : 124 ms QT Int : 518 ms P-R-T Axes : * -75 101 degrees QTcB Int : 495 ms Junctinal rhythm competing with sinus bradycardia. Pacemaker dysfunction. RBBB and LAFB Abnormal ECG When compared with ECG of 25-May-2025 15:01, Suspect pacemaker dysfunction. Consider interrogation of device. Referred By: Patricia Castillo Electronically Signed By: Franklin Ayers
[2025-05-26 06:05] LABS: Glucose, Whole Blood 159 mg/dL (60-115)
[2025-05-26 06:23] LABS: Glucose, Whole Blood 188 mg/dL (60-115)
[2025-05-26 07:12] LABS: Glucose, Whole Blood 172 mg/dL (60-115)
[2025-05-26 07:21] LABS: Reflex Lactate? Lactic Acid Added
[2025-05-26 08:46] LABS: ~Lactic Acid-LAB USE ONLY 4.8 mmol/L (0.5-2.0)
[2025-05-26 10:20] LABS: Reflex Lactate? 2 Y
--- NOTE | 2025-05-26 10:23 | MHC.CM.PN ---
Met briefly with pt to review d/c planning needs: pt falling asleep during assessment; Pt resides w/son who assists as needed - pt feels she may need additional help but would like to discuss at a later date. CM to reassess on 05/27. IMM in chart - HCP on file
--- NOTE | 2025-05-26 10:44 | ECG_ITS ---
Test Reason : Patient reported chest pain Blood Pressure : */* mmHG Vent. Rate : 68 BPM Atrial Rate : 68 BPM P-R Int : 256 ms QRS Dur : 142 ms QT Int : 556 ms P-R-T Axes : 79 -54 78 degrees QTcB Int : 591 ms Junctional rhythm with occasional ventricular-paced complexes RBBB and LAFB Abnormal ECG When compared to the previous EKG of No significant changes seen Referred By: Allan Youngblood Electronically Signed By: Franklin Ayers
--- NOTE | 2025-05-26 10:46 | MHC.CLN ---
CONSULT PT WITH INCREASED NUTRITION RISK R/T PRESSURE INJURY DIET IS NPO PENDING SWALLOW EVAL WHEN DIET TO ADVANCE, RECOMMEND ADDING ENSURE MAX BID TO PROMOTE WOUND HEALING SUPP TO PROVIDE 300KCALS, 60G PROTEIN FOLLOWING FOR DIET ADVANCEMENT SEE FULL ASSESSMENT
[2025-05-26 11:17] LABS: Glucose, Whole Blood 153 mg/dL (60-115)
[2025-05-26 11:21] LABS: ~Lactic Acid-LAB USE ONLY 3.2 mmol/L (0.5-2.0)
--- NOTE | 2025-05-26 11:21 | PC.NURSE ---
P: Alteration in Tissue Perfusion I: See nursing documentation and MD orders E: Pt on levo for MAP and systolic goal. Drip titrated per protool with positive affect. P: Alteration in Comfort I: See nursing documentation and MD orders E: Pt reporting chest pain and anxiety. EKG done per Dr Youngblood. PRN valium given with positive affect.
--- NOTE | 2025-05-26 11:44 | P.PNCC_ITS ---
Subjective Subjective Date of Service: 05/26/25 Interval History: 65-year-old lady with underlying multiple sclerosis with spasms, CAD status post LAD stenting, subdural hematoma, chronic kidney disorder, pulmonary emboli, AFib on Eliquis with tachy-dalia syndrome status post pacemaker, CVA, type 2 diabetes mellitus, Raynaud's admitted on 05/25/2025 with malaise, acute kidney injury, hyperkalemia, hypotension with poor response to initial IV fluids requiring pressor support, likely underlying UTI. No events overnight. Critical Care Time (minutes): 45 Physical Exam 2 Vital Signs: Vital Signs: Last Vital Signs Temp 97.1 F 05/26/25 07:59 Pulse 68 05/26/25 11:00 Resp 17 05/26/25 11:00 BP 106/39 L 05/26/25 11:00 Pulse Ox 94 05/26/25 11:00 O2 Del Method Room Air 05/26/25 11:00 O2 Flow Rate 1 05/26/25 00:00 Oxygen Flow Rate 1 05/25/25 20:24 BMI result Body Mass Index 31.5 Const: General: no acute distress and alert Nutritional Appearance: not obese Orientation/consciousness: Other orientation findings ( oriented) HEENT: Head: Yes atraumatic Eyes: General: appearance normal, both eyes and all related structures S clerae: sclerae normal EOM: EOMs intact bilaterally Neck: Neck: Yes supple Lymphatic: no lymphadenopathy noted Resp: Effort & Inspection: normal respiratory effort and no use of accessory muscles Auscultation: clear to auscultation bilaterally Cardio: Rate: regular rate Rhythm: regular rhythm Heart sounds: no gallops, no murmurs and no rubs Skin: General skin exam: other ( warm) Extrem: General: No clubbing, No cyanosis and No edema Objective Data Labs 05/26/25 05:10 05/26/25 05:10 Labs: Laboratory Results - last 24 hr 05/25/25 05/25/25 05/25/25 15:17 16:18 17:36 WBC 9.4 RBC 3.16 L Hgb 8.9 L Hct 30.3 L MCV 95.9 MCH 28.2 MCHC 29.4 L RDW 19.5 H Plt Count 192 MPV 11.3 Immature Gran % (Auto) 0.6 H Neut % (Auto) 79.7 H Lymph % (Auto) 10.[address] % (Auto) 7.8 Eos % (Auto) 0.6 Baso % (Auto) 1.1 Lymph # (Auto) 1.[address] # (Auto) 0.7 Eos # (Auto) 0.1 Baso # (Auto) 0.1 Abs Immat Gran (auto) 0.06 H Absolute Neuts (auto) 7.5 Absolute Nucleated RBC 0.020 H Nucleated RBC % (auto) 0.2 PT INR APTT VBG pH VBG pCO2 VBG pO2 VBG HCO3 VBG O2 Saturation VBG Base Excess Sodium 136 Potassium 5.9 H D Chloride 96 Carbon Dioxide 24 Anion Gap 22 H BUN 56 H Creatinine 5.48 H* Estim Creat Clear Calc 9.4 Estimated GFR 8 POC Glucose Random Glucose 100 Lactic Acid Lactic Acid F/U @ 2Hr Lactic Acid F/U @ 4Hr Calcium 9.0 Phosphorus Magnesium 4.1 H* Total Bilirubin 1.1 H AST 45 H ALT 12 Alkaline Phosphatase 234 H Ammonia 38 Total Creatine Kinase Troponin I High Sens 122.5 H* D 129.7 H* NT-Pro-B Natriuret Pep 78791.3 H Total Protein 6.3 L Albumin 3.6 Urine Color Urine Appearance Urine pH Ur Specific [place] Urine Protein Urine Glucose (UA) Urine Ketones Urine Blood Urine Nitrite Ur Leukocyte Esterase Urine RBC Urine WBC Ur Squamous Epith Cells Urine Bacteria Hyaline Casts Ur Random Sodium Urine Creatinine Ethyl Alcohol < 10 Influenza Type A (PCR) NEGATIVE Influenza Type B (PCR) NEGATIVE RSV RNA Qual (PCR) NEGATIVE SARS-CoV-2 RNA (RT-PCR) NEGATIVE 05/25/25 05/25/25 05/25/25 17:37 17:44 20:14 WBC RBC Hgb Hct MCV MCH MCHC RDW Plt Count MPV Immature Gran % (Auto) Neut % (Auto) Lymph % (Auto) [place] % (Auto) Eos % (Auto) Baso % (Auto) Lymph # (Auto) [place] # (Auto) Eos # (Auto) Baso # (Auto) Abs Immat Gran (auto) Absolute Neuts (auto) Absolute Nucleated RBC Nucleated RBC % (auto) PT 61.1 H D INR 5.2 H* D APTT 57.7 H VBG pH 7.36 VBG pCO2 41 VBG pO2 53 VBG HCO3 23 VBG O2 Saturation TNP VBG Base Excess -1.6 Sodium 137 Potassium 5.5 H Chloride 97 Carbon Dioxide 22 Anion Gap 24 H BUN 55 H Creatinine 5.36 H* Estim Creat Clear Calc 9.6 Estimated GFR 8 POC Glucose Random Glucose 82 Lactic Acid 5.9 H* Lactic Acid F/U @ 2Hr 7.0 H* Lactic Acid F/U @ 4Hr Calcium 8.8 Phosphorus 6.0 H Magnesium 3.9 H* Total Bilirubin AST ALT Alkaline Phosphatase Ammonia Total Creatine Kinase 87 Troponin I High Sens NT-Pro-B Natriuret Pep Total Protein Albumin Urine Color Urine Appearance Urine pH Ur Specific [place] Urine Protein Urine Glucose (UA) Urine Ketones Urine Blood Urine Nitrite Ur Leukocyte Esterase Urine RBC Urine WBC Ur Squamous Epith Cells Urine Bacteria Hyaline Casts Ur Random Sodium Urine Creatinine Ethyl Alcohol Influenza Type A (PCR) Influenza Type B (PCR) RSV RNA Qual (PCR) SARS-CoV-2 RNA (RT-PCR) 05/25/25 05/25/25 05/25/25 20:15 20:44 20:47 WBC RBC Hgb Hct MCV MCH MCHC RDW Plt Count MPV Immature Gran % (Auto) Neut % (Auto) Lymph % (Auto) [place] % (Auto) Eos % (Auto) Baso % (Auto) Lymph # (Auto) [place] # (Auto) Eos # (Auto) Baso # (Auto) Abs Immat Gran (auto) Absolute Neuts (auto) Absolute Nucleated RBC Nucleated RBC % (auto) PT INR APTT VBG pH VBG pCO2 VBG pO2 VBG HCO3 VBG O2 Saturation VBG Base Excess Sodium Potassium Chloride Carbon Dioxide Anion Gap BUN Creatinine Estim Creat Clear Calc Estimated GFR POC Glucose 55 L* 67 Random Glucose Lactic Acid Lactic Acid F/U @ 2Hr Lactic Acid F/U @ 4Hr Calcium Phosphorus Magnesium Total Bilirubin AST ALT Alkaline Phosphatase Ammonia Total Creatine Kinase Troponin I High Sens NT-Pro-B Natriuret Pep Total Protein Albumin Urine Color Dark Yellow Urine Appearance Turbid Urine pH 5.0 Ur Specific [place] 1.025 Urine Protein 300 (3+) H Urine Glucose (UA) Negative Urine Ketones Trace Urine Blood Large (3+) H Urine Nitrite Negative Ur Leukocyte Esterase Moderate (2+) H Urine RBC >20 H Urine WBC >50 H Ur Squamous Epith Cells 3-5 Urine Bacteria Trace Hyaline Casts >20 Ur Random Sodium 50.0 Urine Creatinine 185.21 Ethyl Alcohol Influenza Type A (PCR) Influenza Type B (PCR) RSV RNA Qual (PCR) SARS-CoV-2 RNA (RT-PCR) 05/25/25 05/25/25 05/25/25 21:06 21:25 21:42 WBC RBC Hgb Hct MCV MCH MCHC RDW Plt Count MPV Immature Gran % (Auto) Neut % (Auto) Lymph % (Auto) [place] % (Auto) Eos % (Auto) Baso % (Auto) Lymph # (Auto) [place] # (Auto) Eos # (Auto) Baso # (Auto) Abs Immat Gran (auto) Absolute Neuts (auto) Absolute Nucleated RBC Nucleated RBC % (auto) PT INR APTT VBG pH VBG pCO2 VBG pO2 VBG HCO3 VBG O2 Saturation VBG Base Excess Sodium Potassium Chloride Carbon Dioxide Anion Gap BUN Creatinine Estim Creat Clear Calc Estimated GFR POC Glucose 106 116 H 140 H Random Glucose Lactic Acid Lactic Acid F/U @ 2Hr Lactic Acid F/U @ 4Hr Calcium Phosphorus Magnesium Total Bilirubin AST ALT Alkaline Phosphatase Ammonia Total Creatine Kinase Troponin I High Sens NT-Pro-B Natriuret Pep Total Protein Albumin Urine Color Urine Appearance Urine pH Ur Specific [place] Urine Protein Urine Glucose (UA) Urine Ketones Urine Blood Urine Nitrite Ur Leukocyte Esterase Urine RBC Urine WBC Ur Squamous Epith Cells Urine Bacteria Hyaline Casts Ur Random Sodium Urine Creatinine Ethyl Alcohol Influenza Type A (PCR) Influenza Type B (PCR) RSV RNA Qual (PCR) SARS-CoV-2 RNA (RT-PCR) 05/25/25 05/25/25 05/26/25 23:07 23:17 00:14 WBC RBC Hgb Hct MCV MCH MCHC RDW Plt Count MPV Immature Gran % (Auto) Neut % (Auto) Lymph % (Auto) [place] % (Auto) Eos % (Auto) Baso % (Auto) Lymph # (Auto) [place] # (Auto) Eos # (Auto) Baso # (Auto) Abs Immat Gran (auto) Absolute Neuts (auto) Absolute Nucleated RBC Nucleated RBC % (auto) PT INR APTT VBG pH VBG pCO2 VBG pO2 VBG HCO3 VBG O2 Saturation VBG Base Excess Sodium Potassium Chloride Carbon Dioxide Anion Gap BUN Creatinine Estim Creat Clear Calc Estimated GFR POC Glucose 142 H 108 Random Glucose Lactic Acid Lactic Acid F/U @ 2Hr Lactic Acid F/U @ 4Hr 7.4 H* Calcium Phosphorus Magnesium Total Bilirubin AST ALT Alkaline Phosphatase Ammonia Total Creatine Kinase Troponin I High Sens NT-Pro-B Natriuret Pep Total Protein Albumin Urine Color Urine Appearance Urine pH Ur Specific [place] Urine Protein Urine Glucose (UA) Urine Ketones Urine Blood Urine Nitrite Ur Leukocyte Esterase Urine RBC Urine WBC Ur Squamous Epith Cells Urine Bacteria Hyaline Casts Ur Random Sodium Urine Creatinine Ethyl Alcohol Influenza Type A (PCR) Influenza Type B (PCR) RSV RNA Qual (PCR) SARS-CoV-2 RNA (RT-PCR) 05/26/25 05/26/25 05/26/25 01:06 02:44 05:10 WBC 11.5 H RBC 2.83 L Hgb 7.9 L Hct 26.6 L MCV 94.0 MCH 27.9 MCHC 29.7 L RDW 19.4 H Plt Count 211 MPV 10.5 Immature Gran % (Auto) 0.8 H Neut % (Auto) 74.5 H Lymph % (Auto) 12.[address] % (Auto) 9.7 Eos % (Auto) 1.6 Baso % (Auto) 0.9 Lymph # (Auto) 1.4 [place] # (Auto) 1.1 Eos # (Auto) 0.2 Baso # (Auto) 0.1 Abs Immat Gran (auto) 0.09 H Absolute Neuts (auto) 8.6 H Absolute Nucleated RBC 0.040 H Nucleated RBC % (auto) 0.3 H PT INR APTT VBG pH VBG pCO2 VBG pO2 VBG HCO3 VBG O2 Saturation VBG Base Excess Sodium 137 Potassium 5.1 Chloride 97 Carbon Dioxide 23 Anion Gap 22 H BUN 55 H Creatinine 5.36 H* Estim Creat Clear Calc 9.8 Estimated GFR 8 POC Glucose 95 71 Random Glucose 104 Lactic Acid 5.5 H* Lactic Acid F/U @ 2Hr Lactic Acid F/U @ 4Hr Calcium 8.6 Phosphorus 5.9 H Magnesium 3.7 H* Total Bilirubin 1.3 H AST 50 H ALT 11 Alkaline Phosphatase 207 H Ammonia Total Creatine Kinase 72 Troponin I High Sens 157.3 H* NT-Pro-B Natriuret Pep 74101.6 H Total Protein 6.1 L Albumin 3.7 Urine Color Urine Appearance Urine pH Ur Specific [place] Urine Protein Urine Glucose (UA) Urine Ketones Urine Blood Urine Nitrite Ur Leukocyte Esterase Urine RBC Urine WBC Ur Squamous Epith Cells Urine Bacteria Hyaline Casts Ur Random Sodium Urine Creatinine Ethyl Alcohol Influenza Type A (PCR) Influenza Type B (PCR) RSV RNA Qual (PCR) SARS-CoV-2 RNA (RT-PCR) 05/26/25 05/26/25 05/26/25 05:16 05:18 05:46 WBC RBC Hgb Hct MCV MCH MCHC RDW Plt Count MPV Immature Gran % (Auto) Neut % (Auto) Lymph % (Auto) [place] % (Auto) Eos % (Auto) Baso % (Auto) Lymph # (Auto) [place] # (Auto) Eos # (Auto) Baso # (Auto) Abs Immat Gran (auto) Absolute Neuts (auto) Absolute Nucleated RBC Nucleated RBC % (auto) PT INR APTT VBG pH 7.40 VBG pCO2 41 VBG pO2 56 VBG HCO3 25 VBG O2 Saturation 81.0 VBG Base Excess 1.1 Sodium Potassium Chloride Carbon Dioxide Anion Gap BUN Creatinine Estim Creat Clear Calc Estimated GFR POC Glucose 69 165 H Random Glucose Lactic Acid Lactic Acid F/U @ 2Hr Lactic Acid F/U @ 4Hr Calcium Phosphorus Magnesium Total Bilirubin AST ALT Alkaline Phosphatase Ammonia Total Creatine Kinase Troponin I High Sens NT-Pro-B Natriuret Pep Total Protein Albumin Urine Color Urine Appearance Urine pH Ur Specific [place] Urine Protein Urine Glucose (UA) Urine Ketones Urine Blood Urine Nitrite Ur Leukocyte Esterase Urine RBC Urine WBC Ur Squamous Epith Cells Urine Bacteria Hyaline Casts Ur Random Sodium Urine Creatinine Ethyl Alcohol Influenza Type A (PCR) Influenza Type B (PCR) RSV RNA Qual (PCR) SARS-CoV-2 RNA (RT-PCR) 05/26/25 05/26/25 05/26/25 06:02 06:19 07:02 WBC RBC Hgb Hct MCV MCH MCHC RDW Plt Count MPV Immature Gran % (Auto) Neut % (Auto) Lymph % (Auto) [place] % (Auto) Eos % (Auto) Baso % (Auto) Lymph # (Auto) [place] # (Auto) Eos # (Auto) Baso # (Auto) Abs Immat Gran (auto) Absolute Neuts (auto) Absolute Nucleated RBC Nucleated RBC % (auto) PT INR APTT VBG pH VBG pCO2 VBG pO2 VBG HCO3 VBG O2 Saturation VBG Base Excess Sodium Potassium Chloride Carbon Dioxide Anion Gap BUN Creatinine Estim Creat Clear Calc Estimated GFR POC Glucose 159 H 188 H 172 H Random Glucose Lactic Acid Lactic Acid F/U @ 2Hr Lactic Acid F/U @ 4Hr Calcium Phosphorus Magnesium Total Bilirubin AST ALT Alkaline Phosphatase Ammonia Total Creatine Kinase Troponin I High Sens NT-Pro-B Natriuret Pep Total Protein Albumin Urine Color Urine Appearance Urine pH Ur Specific [place] Urine Protein Urine Glucose (UA) Urine Ketones Urine Blood Urine Nitrite Ur Leukocyte Esterase Urine RBC Urine WBC Ur Squamous Epith Cells Urine Bacteria Hyaline Casts Ur Random Sodium Urine Creatinine Ethyl Alcohol Influenza Type A (PCR) Influenza Type B (PCR) RSV RNA Qual (PCR) SARS-CoV-2 RNA (RT-PCR) 05/26/25 05/26/25 05/26/25 08:16 11:00 11:13 WBC RBC Hgb Hct MCV MCH MCHC RDW Plt Count MPV Immature Gran % (Auto) Neut % (Auto) Lymph % (Auto) [place] % (Auto) Eos % (Auto) Baso % (Auto) Lymph # (Auto) [place] # (Auto) Eos # (Auto) Baso # (Auto) Abs Immat Gran (auto) Absolute Neuts (auto) Absolute Nucleated RBC Nucleated RBC % (auto) PT INR APTT VBG pH VBG pCO2 VBG pO2 VBG HCO3 VBG O2 Saturation VBG Base Excess Sodium Potassium Chloride Carbon Dioxide Anion Gap BUN Creatinine Estim Creat Clear Calc Estimated GFR POC Glucose 153 H Random Glucose Lactic Acid Lactic Acid F/U @ 2Hr 4.8 H* Lactic Acid F/U @ 4Hr 3.2 H* Calcium Phosphorus Magnesium Total Bilirubin AST ALT Alkaline Phosphatase Ammonia Total Creatine Kinase Troponin I High Sens NT-Pro-B Natriuret Pep Total Protein Albumin Urine Color Urine Appearance Urine pH Ur Specific [place] Urine Protein Urine Glucose (UA) Urine Ketones Urine Blood Urine Nitrite Ur Leukocyte Esterase Urine RBC Urine WBC Ur Squamous Epith Cells Urine Bacteria Hyaline Casts Ur Random Sodium Urine Creatinine Ethyl Alcohol Influenza Type A (PCR) Influenza Type B (PCR) RSV RNA Qual (PCR) SARS-CoV-2 RNA (RT-PCR) Progress Note: A&P Assessment and plan (1) PREM (acute kidney injury): Status: Resolved (2) Acute UTI: Status: Resolved (3) Multiple sclerosis: Status: Acute (4) Atrial fibrillation: Status: Acute (5) Coronary atherosclerosis: Status: Acute Plan Assessment: 65-year-old lady with underlying multiple sclerosis, CAD, CKD, AFib on Eliquis admitted with acute kidney and hypotension on the background of likely UTI. Plan: Neuro: No acute issues. Cardiac: Distributive shock, continue to titrate off pressor support as tolerated. Underlying CAD and AFib. Pulmonary: No acute issues. Renal: Acute renal failure on the background of chronic kidney disease. Non oliguric. Continue to monitor renal indices and urine output. Endo: No acute issues. GI: No acute issues. ID: Positive UA, cultures are pending, empiric coverage for an acute UTI. Heme/Onc: No acute issues. Psych: No acute issues. Miscellaneous: No acute issues. Prophylaxis: Eliquis Diet: Pending swallow evaluation Critical care time spent: 45 minutes Quality Stroke Does the patient have a stroke diagnosis?: No VTE Prior VTE?: No VTE Risk Level:: Medical - moderate - high VTE Device Contraindication: Treatment Not Indicated VTE Drug Contraindication: N/A - Med Ordered
--- NOTE | 2025-05-26 12:28 | PM.CNNEP ---
History of Present Illness Reason for Consult Consult date: 05/26/25 Chief Complaint Chief complaint: PREM/ hypotension History of Present Illness Narrative: 65-year-old lady with underlying multiple sclerosis with slow decline of functional status with underlying spasms, CAD status post LAD stent in 2012, SDH, CKD, previously on Eliquis, CVA, diabetes mellitus AFib status pacemaker on 04/21 admitted on 05/03/2025 with acute renal failure UTI, hypotension with poor response to IV fluid resuscitation requiring pressor support. PREM superimposed on CKD. CT scan on admission did not reveal any hydronephrosis or obstruction. Both kidneys appeared normal. She was hypotensive. She is currently in ICU receiving IV fluids. Review of Systems Review of Systems Yes Unobtainable due to mental condition PMFSH Past Medical History Medical History (Updated 05/26/25 @ 11:51 by Allan Youngblood MD) Atrial fibrillation Diabetes mellitus Anemia CAD (coronary artery disease) Heart valve regurgitation Gitelman syndrome Polycystic ovarian syndrome Myocardial infarction Sleep apnea Fibromyalgia COPD (chronic obstructive pulmonary disease) Mild asthma Orthostatic hypotension Raynaud's disease Pulmonary embolism Coronary atherosclerosis HTN (hypertension) Neuropathy Multiple sclerosis Chronic pain syndrome PTSD (post-traumatic stress disorder) Opioid dependence Depression Hypercalcemia Elevated cholesterol Type 2 diabetes mellitus Thyroid nodule Hypothyroid Surgical History Surgical History Hx of reduction mammoplasty Hx of tubal ligation Hx of hernia repair History of rectal surgery History of colon resection S/P panniculectomy History of lobectomy of thyroid Hx of hysterectomy Hx of appendectomy Hx of dilation and curettage Hx of heart artery stent Social History Social History Household Members: Children Household Members Other:: Jony Bah Housing: Apartment Are you a primary wound care specialist to a significant other at home: No Do you presently have visiting nurse or other home services: Yes Patient Tobacco Use Status: Former Tobacco user Tobacco use type: Cigarette Years Smoked: 40 Second Hand Smoke Exposure: No Currently Displaying Signs/Symptoms of Drug Intoxication Withdrawal: No Have you been hit, kicked, punched, or otherwise hurt by someone within the past year? If so, by whom?: No Do you feel safe in your current relationship?: No Current Relationship Is there a partner from a previous relationship who is making you feel unsafe now?: No Are you made to feel afraid or neglected: No Buddhist Healthcare Practices: Non-denomenational Advance Directives: No Advance Directives Information Provided: Yes Do you have a plan to hurt others: No Plan Recently lost weight without trying: Unsure Eating poorly because of decreased appetite: Yes Nutrition Risks: Poor intake 0-25% >4 days Patient : No : No Poor oral hygiene: No service: No Meds Allergies Allergy/AdvReac Type Severity Reaction Status Date / Time diphenhydramine (From Allergy Severe Anaphylaxis Verified 05/25/25 14:38 Benadryl) Penicillins Allergy Severe Anaphylaxis Verified 05/25/25 14:38 Sulfa (Sulfonamide Allergy Severe Anaphylaxis Verified 05/25/25 14:38 Antibiotics) clarithromycin Allergy Intermediate Shortness Verified 05/25/25 14:38 of Breath gabapentin Allergy Intermediate Confusion Verified 05/25/25 14:38 hydrochlorothiazide (From Allergy Intermediate Shortness Verified 05/25/25 14:38 Hyzaar) of Breath levofloxacin (From Levaquin) Allergy Intermediate dizziness/h Verified 05/25/25 14:38 eadache/ulices sea losartan (From Cozaar) Allergy Intermediate Shortness Verified 05/25/25 14:38 of Breath metformin Allergy Intermediate strange Verified 05/25/25 14:38 feeling amoxicillin (From Augmentin) Allergy Unknown Unknown Verified 05/03/25 14:31 clavulanic acid (From Allergy Unknown Unknown Verified 05/03/25 14:31 Augmentin) duloxetine (From Cymbalta) Allergy Unknown Unknown Verified 05/03/25 14:31 fluoxetine Allergy Unknown Unknown Verified 05/03/25 14:31 NSAIDS (Non-Steroidal Allergy Unknown Unknown Verified 05/03/25 14:31 Anti-Inflamma pregabalin AdvReac Intermediate Dizziness Verified 05/03/25 14:31 doxycycline AdvReac Mild Gastrointestinal Verified 05/03/25 14:31 Upset Active Medications: Current Medications Apixaban (Apixaban 5 Mg Tablet) 5 mg PO BID ROBERT Last Admin: 05/26/25 07:36 Dose: 5 mg Dextrose (Dextrose 50 % 25 Gm/50 Ml Syringe) 25 gm IVPUSH Q15M PRN; Protocol PRN Reason: per Hypoglycemia Standing Ord. Last Admin: 05/26/25 05:27 Dose: 25 gm Diazepam (Diazepam 5 Mg Tablet) 5 mg PO TID PRN PRN Reason: anxiety/restlessness Last Admin: 05/26/25 11:39 Dose: 5 mg Norepinephrine Bitartrate (Levophed) 8 mg in 250 mls @ 0 mls/hr IVCONT .Q0M [facility], 1928–1983; Protocol Last Titration: 05/26/25 12:02 Dose: 0.07 mcg/kg/min, 9.67 mls/hr Ceftriaxone Sodium 1 gm/ (Sodium Chloride) 50 mls @ 100 mls/hr IV Q24H [facility], 1928–1983 Dextrose (D10) 1,000 mls @ 50 mls/hr IVCONT .Q20H [facility], [facility]1983 Last Admin: 05/26/25 03:00 Dose: 50 mls/hr Insulin Human Lispro (Insulin Lispro 100 Unit/Ml 3 Ml Vial) 0 unit SUBCUT QIDACHS [facility], 1928–1983; Protocol On Hold: 05/26/25 06:00 Last Admin: 05/25/25 20:53 Dose: Not Given Levothyroxine Sodium (Levothyroxine Sodium 75 Mcg Tablet) 75 mcg PO DAILY@0600 [facility], [facility]1983 Sodium Chloride (0.9 % Sodium Chloride Flush 3 Ml Syringe) 3 ml IVFLUSH QSHIFT [facility], [facility]1983 Last Admin: 05/26/25 07:28 Dose: 3 ml Home Medications ?Medication ?Instructions ?Recorded ?Confirmed ?Last Taken ?Type amantadine HCl 100 mg capsule 100 mg PO BID 12/13/22 05/25/25 Unknown History apixaban 5 mg tablet (Eliquis) 5 mg PO BID 12/13/22 05/25/25 Unknown History brimonidine 0.2 % eye drops 1 drp ophthalmic (eye) BID 12/13/22 05/25/25 Unknown History dorzolamide 2 % eye drops 1 drp ophthalmic (eye) BID 12/13/22 05/25/25 Unknown History montelukast 10 mg tablet 10 mg PO DAILY 12/13/22 05/25/25 Unknown History sildenafil (pulm.hypertension) 20 20 mg PO TID 12/13/22 05/25/25 Unknown History mg tablet albuterol sulfate 2.5 mg/3 mL 2.5 mg inhalation Q6H PRN Wheezing 04/17/25 05/25/25 Unknown History (0.083 %) solution for nebulization aspirin 81 mg chewable tablet 81 mg PO DAILY 04/17/25 05/25/25 Unknown History camphor-menthol 0.5 %-0.5 % lotion 1 appl topical BID PRN Itching 04/17/25 05/25/25 Unknown History dextroamphetamine-amphetamine 30 30 mg PO DAILY 04/17/25 05/25/25 Unknown History mg tablet (Adderall) diazepam 5 mg tablet 5 mg PO Q8H PRN Anxiety/spasm 04/17/25 05/25/25 Unknown History diclofenac sodium 1 % topical gel 2 g topical QID 04/17/25 05/25/25 Unknown History dulaglutide 3 mg/0.5 mL 3 mg subcut TU@0900 04/17/25 05/25/25 Unknown History subcutaneous pen injector (Trulicity) latanoprost 0.005 % eye drops 1 drp ophthalmic (eye) BEDTIME 04/17/25 05/25/25 Unknown History levothyroxine 75 mcg tablet 75 mcg PO DAILY@0600 04/17/25 05/25/25 Unknown History lidocaine 4 % topical patch 2 patch topical DAILY 04/17/25 05/25/25 Unknown History multivitamin with minerals 1 tab PO DAILY 04/17/25 05/25/25 Unknown History sodium chloride 7 % for 1 inh inhalation BID 04/17/25 05/25/25 Unknown History nebulization thiamine HCl (vitamin B1) 100 mg 100 mg PO DAILY 04/17/25 05/25/25 Unknown History tablet furosemide 40 mg tablet (Lasix) 40 mg PO BID@0900,1700 05/25/25 05/25/25 Unknown History pantoprazole 20 mg tablet,delayed 20 mg PO DAILY@0630 PRN Gastric 05/25/25 05/25/25 Unknown History release Reflux Physical Exam Vital Signs: Last Vital Signs Temp 98.1 F 05/26/25 12:00 Pulse 73 05/26/25 12:02 Resp 28 H 05/26/25 12:00 BP 132/31 L 05/26/25 12:02 Pulse Ox 90 L 05/26/25 12:00 O2 Del Method Room Air 05/26/25 12:00 O2 Flow Rate 1 05/26/25 00:00 Oxygen Flow Rate 1 05/25/25 20:24 BMI result Body Mass Index 31.5 Const General: ill appearing Neck Neck: Yes supple Resp Auscultation: clear to auscultation bilaterally Cardio Palpation: no palpable S3 Heart sounds: no rubs GI Palpation (GI): Soft to palpation Auscultation: normal bowel sounds Neuro Motor exam (neuro): no asterixis Results Lab Results 05/26/25 05:10 05/26/25 05:10 Lab results: Chemistry 05/25/25 05/25/25 05/26/25 16:18 20:14 05:10 Sodium 136 137 137 Potassium 5.9 H D 5.5 H 5.1 Carbon Dioxide 24 22 23 BUN 56 H 55 H 55 H Creatinine 5.48 H* 5.36 H* 5.36 H* Calcium 9.0 8.8 8.6 Phosphorus 6.0 H 5.9 H Hematology 05/25/25 05/26/25 15:17 05:10 WBC 9.4 11.5 H Hgb 8.9 L 7.9 L Plt Count 192 211 Urinalysis 05/25/25 20:15 Urine Color Dark Yellow Urine Appearance Turbid Urine pH 5.0 Ur Specific [place] 1.025 Urine Protein 300 (3+) H Urine Glucose (UA) Negative Urine Ketones Trace Urine Blood Large (3+) H Urine Nitrite Negative Ur Leukocyte Esterase Moderate (2+) H Urine RBC >20 H Urine WBC >50 H Ur Squamous Epith Cells 3-5 Hyaline Casts >20 Urine Studies 05/25/25 20:15 Urine Creatinine 185.21 Assessment and Plan (1) Hyperkalemia: Status: Acute (2) PREM (acute kidney injury): Status: Resolved Plan PREM most likely due to ischemic tubular injury from hypotension. No evidence of obstruction. Glomerular nephritis has to be ruled out. She has had at least 3 episodes of PREM in the last 1 month. Recommendations Optimize blood pressure. Maintain systolic blood pressure more than 100 mm Hg. Monitor urine output closely. Correct hyperkalemia medically. Lokelma p.r.n.. Check urine for protein creatinine ratio Serologies ordered. No absolute indication for dialysis today. Follow renal function closely Procedures Date of Service Date of Service: 05/26/25
--- NOTE | 2025-05-26 13:47 | HO.WOUND ---
Wound Consult: Initial 65 yr old female admitted to [facility]25 - See progress notes and H&P for detailed history. Wound consult placed for coccyx. Patient agreeable to assessment and photo documentation. Patient noted on previous admission to have stage 2 pressure injury to coccyx. Coccyx Etiology: coccyx stage 2 pressure injury Present on Admission Measurements: 0.3cm x 0.3cm x 0.1cm Wound Bed: moist pink superficial - surrounding skin pale pink scar tissue Drainage / Odor: none Alida wound: ? No Induration, Fluctuance or Warmth noted Pain: none Goals of Treatment: ? triad/foam left heel - intact blanching Right heel- intact blanching Right dorsal foot- purple discoloration Right medial foot- purple discoloration- ? bruising Recommendations: 1. Turn and Reposition every 2 hours and as needed for patient comfort. Use pillows or wedges to support off loading positions. 2. Off Load all bony prominences with use of pillows and heel boots if needed. Apply Preventative foams where needed. 3. Use waffle cushion when up to chair, limit sitting times to 1-2 hours 3. Monitor for incontinence and moisture control, use barrier creams when needed for prevention and treatment. 4. Provide adequate and supplemental nutrition. 5. Order or Continue low air loss mattress. 6. When applicable maintain blood glucose levels per Providers order. coccyx: Off Load Pressure with Q2 hr turns and use of pillows - Cleanse with PH balance spray or wipes, pat dry. ?Apply thin layer of Triad to wound bed. Do not remove all of paste between applications as this may cause further skin damage.? Cover with foam dressing to aid in off loading and protection from friction. Change every other day and PRN. Re-consult wound care Nurse for wound deterioration or wound changes.
--- NOTE | 2025-05-26 16:36 | MHC.SL.SWA ---
Speech Pathologist Impression: Mild to moderate oral phase dysphagia Risk of Aspiration Due to: Compromised respiratory status Dysphasia Diet Status: Liquid Consistency and Strategies for Safe Swallow: Liquid Intake Recommendation: Thin Liquid Intake Strategies: Solid Food Consistency: Dietary Recommendations: Grnd/Mech Altered (NDD2) Additional Modifications to Solid Foods: Oral Medication Intake: Crushed with Puree Please contact the pharmacy regarding appropriate crushable or liquid drug formulations that are available whenever modified delivery is recommended. Compensatory Strategies and Precautions to be Taken for Safe Swallow: Supervision While Eating and Drinking for Safe Swallow: Total Assistance (1:1) Foods to Avoid: Difficult to chew solids. Swallowing Recommended Treatments: Recommendation for Speech: Inpatient Speech Therapy Comment: Patient presents with a mild to moderate oral phase dysphagia (due to edentulous state), difficulty with self feeding due to generalized weakness, poor coordination; and risk of aspiration secondary to respiratory status. Recommend upgrade from NPO to Ground Mechanical Altered (NDD2) with Thin liquids, pills crushed in puree. Patient will require 1-1 feeding, does best if fully supported during meat to allow her to self feed. Liquids by straw o.k. if fully supported to self administer. Patient will require close monitor of 02 during meals to assure adequate oxygenation. , OCTAVIO notified by secure text; nicholas ramirez RN in person, PROFESSOR OF BUSINESS ADMINISTRATION will continue to follow. Frequency/Duration: Date Range for Service Req: Timeline to reassess: Grain Sacker Clinican/Clinical Fellow: No Supervisory Statement: I have reviewed and agree with the student/clinical fellow's documentation: N/A Speech Language Pathologist: Mili Song M.A., CCC-PROFESSOR OF BUSINESS ADMINISTRATION
[2025-05-26 17:23] LABS: Glucose, Whole Blood 204 mg/dL (60-115)
[2025-05-26 20:35] LABS: Anion Gap 18 (12-20); Blood Urea Nitrogen 57 mg/dL (9-16); Calcium 8.6 mg/dL (8.4-10.2); Carbon Dioxide 26 mmol/L (22-29); Chloride 97 mmol/L (96-108); Creatinine Clr Calc Pharmacy 9.9; Estimated Glomerular Filt Rate 8; Magnesium 3.6 mg/dL (1.6-2.6); Potassium 5.1 mmol/L (3.3-5.1); Sodium 136 mmol/L (135-145)
[2025-05-26 20:59] LABS: Total Protein Urine Random 137 mg/dL (<12)
[2025-05-26 21:21] LABS: Glucose, Whole Blood 141 mg/dL (60-115)
[2025-05-27] VITALS (28 sets, daily range): BP systolic 88–163; BP diastolic 28–120; PULSE 57–77; RESP 11–24; TEMP 36.1–36.9; O2SAT 88–100; BMI 32.2
[2025-05-27 00:05] LABS: Glucose, Whole Blood 153 mg/dL (60-115)
[2025-05-27] MEDS: 0.9 % Sodium Chloride Flush 3 ML SYRINGE IVFLUSH ×2 (00:11→09:37)
[2025-05-27 05:23] LABS: VBG HCO3 32 mmol/L (22-26); VBG O2 % Saturation 69.0 %
[2025-05-27 05:24] LABS: Venous Blood Gas Refer to POC result
[2025-05-27 05:26] LABS: MANUAL DIFF FLAG NO
[2025-05-27 05:28] LABS: Hematocrit 25.0 % (37.0-47.0); Hemoglobin 7.7 g/dl (12.0-16.0); Imm Gran Abs Auto 0.11 X10*3/uL (0.00-0.03); Imm Gran Pct Auto 0.8 % (0.0-0.4); Lymphocytes Absolute Auto 1.6 X10*3/uL (1.2-4.9); Mean Corpuscular HGB Conc 30.8 g/dl (31.0-35.0); Mean Corpuscular Hemoglobin 28.1 pg (27.0-33.0); Mean Corpuscular Volume 91.2 fL (80.0-98.0); NRBC Abs Auto 0.030 X10*3/uL (0.0-0.012); NRBC Pct Auto 0.2 /100WBC (0.0-0.2); Platelet Count 194 X10*3/uL (160-400); Red Blood Count 2.74 X10*6/uL (4.20-5.50); White Blood Count 13.5 X10*3/uL (4.8-10.8)
[2025-05-27 05:56] LABS: Alanine Aminotransferase 15 U/L (0-31); Albumin Level 3.4 g/dL (3.5-5.0); Alkaline Phosphatase 188 U/L (39-117); Anion Gap 16 (12-20); Aspartate Amino Transferase 49 U/L (5-31); Blood Urea Nitrogen 60 mg/dL (9-16); Calcium 8.6 mg/dL (8.4-10.2); Carbon Dioxide 28 mmol/L (22-29); Chloride 98 mmol/L (96-108); Creatinine Clr Calc Pharmacy 10.1; Estimated Glomerular Filt Rate 8; Magnesium 3.5 mg/dL (1.6-2.6); Potassium 4.7 mmol/L (3.3-5.1); Sodium 137 mmol/L (135-145); Total Protein 5.8 g/dL (6.5-8.0)
--- NOTE | 2025-05-27 06:24 | PC.NURSE ---
Assumed care of the patient at 1900. Patient alert and oriented. Patient remained on levophed gtt throughout the shift. UOP minimal, INSTRUMENT PROCESSING TECH aware.
[2025-05-27 07:19] LABS: Glucose, Whole Blood 67 mg/dL (60-115)
--- NOTE | 2025-05-27 08:02 | PC.NURSE ---
Addendum entered by Patrick Burgos RN 05/27/25 08:18: Recheck of Blood Glucose POC 111mg/dL Original Note: Patient POC Blood Sugar 67 this morning. Patient arousable and asymptomatic. Patient drank 4oz juice. Also given a 4oz gingerale per PT request. Additionally, encouraged to eat breakfast. Recheck POC at 0815.
[2025-05-27 08:20] LABS: Glucose, Whole Blood 111 mg/dL (60-115)
--- NOTE | 2025-05-27 08:22 | ECG_ITS ---
Test Reason : CP Blood Pressure : */* mmHG Vent. Rate : 65 BPM Atrial Rate : * BPM P-R Int : * ms QRS Dur : 110 ms QT Int : 560 ms P-R-T Axes : * -17 30 degrees QTcB Int : 582 ms Junctional rhythm Low voltage QRS Incomplete right bundle branch block Inferior infarct , age undetermined Possible Anterolateral infarct , age undetermined Prolonged QT Abnormal ECG When compared with ECG of 26-May-2025 10:50, Junctional rhythm has replaced Electronic ventricular pacemaker Referred By: Allan Youngblood Electronically Signed By: Franklin Ayers
[2025-05-27] MEDS: Albumin Human 25 % 100 ML IV ×3 (09:37→20:07)
--- NOTE | 2025-05-27 10:18 | MHC.CLN ---
F/U PT WITH INCREASED NUTRITION RISK R/T PRESSURE INJURY DIET RX: ADVANCED TO GROUND DIET RECOMMEND ADDING ENSURE MAX BID TO PROMOTE WOUND HEALING SUPP TO PROVIDE 300KCALS, 60G PROTEIN MONITOR PO AND ENCOURAGE SUPPLEMENTS
--- NOTE | 2025-05-27 10:52 | P.PNCC_ITS ---
Subjective Subjective Date of Service: 05/27/25 Interval History: 65-year-old lady with underlying multiple sclerosis with spasms, CAD status post LAD stenting, subdural hematoma, chronic kidney disorder, pulmonary emboli, AFib on Eliquis with tachy-dalia syndrome status post pacemaker, CVA, type 2 diabetes mellitus, Raynaud's admitted on 05/25/2025 with malaise, acute kidney injury, hyperkalemia, hypotension with poor response to initial IV fluids requiring pressor support, likely underlying UTI. No events overnight. Critical Care Time (minutes): 45 Physical Exam 2 Vital Signs: Vital Signs: Last Vital Signs Temp 97.0 F 05/27/25 08:00 Pulse 64 05/27/25 10:00 Resp 13 05/27/25 10:00 BP 108/48 L 05/27/25 10:00 Pulse Ox 97 05/27/25 10:00 O2 Del Method Nasal Cannula 05/27/25 10:00 O2 Flow Rate 1 05/27/25 10:00 Oxygen Flow Rate 1 05/25/25 20:24 BMI result Body Mass Index 32.2 Const: General: no acute distress, alert and awake Eyes: Sclerae: sclerae normal EOM: EOMs intact bilaterally Neck: Neck: Yes no lymphadenopathy, Yes trachea midline and Yes supple Resp: Effort & Inspection: normal respiratory effort and no respiratory distress Auscultation: clear to auscultation bilaterally Cardio: Rate: regular rate Rhythm: regular rhythm Heart sounds: no gallops, no murmurs and no rubs GI: Palpation (GI): Soft to palpation and Other GI palpation findings present ( Nontender) Auscultation: normal bowel sounds Extrem: General: Yes no pedal edema, No clubbing and No cyanosis Objective Data Labs 05/27/25 05:12 05/27/25 05:12 Labs: Laboratory Results - last 24 hr 05/26/25 05/26/25 05/26/25 11:00 11:13 17:20 WBC RBC Hgb Hct MCV MCH MCHC RDW Plt Count MPV Immature Gran % (Auto) Neut % (Auto) Lymph % (Auto) [place] % (Auto) Eos % (Auto) Baso % (Auto) Lymph # (Auto) [place] # (Auto) Eos # (Auto) Baso # (Auto) Abs Immat Gran (auto) Absolute Neuts (auto) Absolute Nucleated RBC Nucleated RBC % (auto) VBG pH VBG pCO2 VBG pO2 VBG HCO3 VBG O2 Saturation VBG Base Excess Sodium Potassium Chloride Carbon Dioxide Anion Gap BUN Creatinine Estim Creat Clear Calc Estimated GFR POC Glucose 153 H 204 H Random Glucose Lactic Acid F/U @ 4Hr 3.2 H* Calcium Phosphorus Magnesium Total Bilirubin AST ALT Alkaline Phosphatase Total Protein Albumin U Random Total Protein Urine Creatinine 05/26/25 05/26/25 05/26/25 20:03 20:24 21:17 WBC RBC Hgb Hct MCV MCH MCHC RDW Plt Count MPV Immature Gran % (Auto) Neut % (Auto) Lymph % (Auto) [place] % (Auto) Eos % (Auto) Baso % (Auto) Lymph # (Auto) [place] # (Auto) Eos # (Auto) Baso # (Auto) Abs Immat Gran (auto) Absolute Neuts (auto) Absolute Nucleated RBC Nucleated RBC % (auto) VBG pH VBG pCO2 VBG pO2 VBG HCO3 VBG O2 Saturation VBG Base Excess Sodium 136 Potassium 5.1 Chloride 97 Carbon Dioxide 26 Anion Gap 18 BUN 57 H Creatinine 5.33 H* Estim Creat Clear Calc 9.9 Estimated GFR 8 POC Glucose 141 H Random Glucose 188 H Lactic Acid F/U @ 4Hr Calcium 8.6 Phosphorus 5.2 H Magnesium 3.6 H* Total Bilirubin AST ALT Alkaline Phosphatase Total Protein Albumin U Random Total Protein 137 H Urine Creatinine 159.68 05/26/25 05/27/25 05/27/25 23:55 05:12 05:19 WBC 13.5 H RBC 2.74 L Hgb 7.7 L Hct 25.0 L MCV 91.2 MCH 28.1 MCHC 30.8 L RDW 19.4 H Plt Count 194 MPV 10.8 Immature Gran % (Auto) 0.8 H Neut % (Auto) 75.5 H Lymph % (Auto) 11.5 L [place] % (Auto) 9.6 Eos % (Auto) 1.8 Baso % (Auto) 0.8 Lymph # (Auto) 1.6 [place] # (Auto) 1.3 H Eos # (Auto) 0.2 Baso # (Auto) 0.1 Abs Immat Gran (auto) 0.11 H Absolute Neuts (auto) 10.2 H Absolute Nucleated RBC 0.030 H Nucleated RBC % (auto) 0.2 VBG pH 7.52 H VBG pCO2 39 VBG pO2 43 VBG HCO3 32 H VBG O2 Saturation 69.0 VBG Base Excess 9.4 Sodium 137 Potassium 4.7 Chloride 98 Carbon Dioxide 28 Anion Gap 16 BUN 60 H Creatinine 5.26 H* Estim Creat Clear Calc 10.1 Estimated GFR 8 POC Glucose 153 H Random Glucose 125 H Lactic Acid F/U @ 4Hr Calcium 8.6 Phosphorus 5.1 H Magnesium 3.5 H* Total Bilirubin 1.0 AST 49 H ALT 15 Alkaline Phosphatase 188 H Total Protein 5.8 L Albumin 3.4 L U Random Total Protein Urine Creatinine 05/27/25 05/27/25 07:15 08:17 WBC RBC Hgb Hct MCV MCH MCHC RDW Plt Count MPV Immature Gran % (Auto) Neut % (Auto) Lymph % (Auto) [place] % (Auto) Eos % (Auto) Baso % (Auto) Lymph # (Auto) [place] # (Auto) Eos # (Auto) Baso # (Auto) Abs Immat Gran (auto) Absolute Neuts (auto) Absolute Nucleated RBC Nucleated RBC % (auto) VBG pH VBG pCO2 VBG pO2 VBG HCO3 VBG O2 Saturation VBG Base Excess Sodium Potassium Chloride Carbon Dioxide Anion Gap BUN Creatinine Estim Creat Clear Calc Estimated GFR POC Glucose 67 111 Random Glucose Lactic Acid F/U @ 4Hr Calcium Phosphorus Magnesium Total Bilirubin AST ALT Alkaline Phosphatase Total Protein Albumin U Random Total Protein Urine Creatinine Microbiology Microbiology Results: Microbiology 05/25/25 17:46 Blood - Venous Blood Culture - Preliminary No growth after 24 hours. 05/25/25 17:36 Blood - Venous Blood Culture - Preliminary No growth after 24 hours. 05/25/25 20:59 Urine clean catch Urine Culture - Preliminary No growth to date. Progress Note: A&P Assessment and plan (1) Atrial fibrillation: Status: Acute (2) Raynaud's disease: Status: Acute (3) Shock: Status: Acute (4) Acute UTI: Status: Resolved (5) Multiple sclerosis: Status: Acute Plan Assessment: 65-year-old lady with underlying multiple sclerosis, CAD, CKD, AFib on Eliquis admitted with acute kidney and hypotension on the background of likely UTI. Plan: Neuro: No acute issues. Cardiac: Distributive shock, continue to titrate off pressor support as tolerated. Underlying CAD and AFib. Pulmonary: No acute issues. Renal: Acute renal failure on the background of chronic kidney disease. Non oliguric. Continue to monitor renal indices and urine output. Endo: No acute issues. GI: No acute issues. ID: Positive UA, cultures are pending, empiric coverage for an acute UTI. Heme/Onc: No acute issues. Psych: No acute issues. Miscellaneous: Underlying multiple sclerosis with spasms, continue diazepam. Prophylaxis: Eliquis Diet: Modified Critical care time spent: 45 minutes Quality Stroke Does the patient have a stroke diagnosis?: No VTE Prior VTE?: No VTE Risk Level:: Medical - moderate - high VTE Device Contraindication: Treatment Not Indicated VTE Drug Contraindication: N/A - Med Ordered
[2025-05-27 11:40] LABS: Glucose, Whole Blood 103 mg/dL (60-115)
--- NOTE | 2025-05-27 12:34 | PM.PNNEP ---
Subjective Subjective Date of Service: 05/27/25 Interval history: 65-year-old lady with underlying multiple sclerosis with spasms, CAD status post LAD stenting, subdural hematoma, chronic kidney disorder, pulmonary emboli, AFib on Eliquis with tachy-dalia syndrome status post pacemaker, CVA, type 2 diabetes mellitus, Raynaud's admitted on 05/25/2025 with malaise, acute kidney injury, hyperkalemia, hypotension with poor response to initial IV fluids requiring pressor support, likely underlying UTI.No events overnight. Physical Exam Vital Signs: Vital Signs: Last Vital Signs Temp 97.3 F 05/27/25 12:00 Pulse 65 05/27/25 12:00 Resp 17 05/27/25 12:00 BP 96/54 L 05/27/25 12:00 Pulse Ox 100 05/27/25 12:00 O2 Del Method Nasal Cannula 05/27/25 12:00 O2 Flow Rate 1 05/27/25 12:00 Oxygen Flow Rate 1 05/25/25 20:24 BMI result Body Mass Index 32.2 Const: General: no acute distress Orientation/consciousness: patient oriented x3 Eyes: EOM: EOMs intact bilaterally Neck: Neck: Yes supple Resp: Auscultation: diminished lung sounds Cardio: Rate: regular rate GI: Palpation (GI): Soft to palpation Neuro: General: patient oriented x3 Objective Data Labs 05/27/25 05:12 05/27/25 05:12 Labs: Laboratory Results - last 24 hr 05/26/25 05/26/25 05/26/25 17:20 20:03 20:24 WBC RBC Hgb Hct MCV MCH MCHC RDW Plt Count MPV Immature Gran % (Auto) Neut % (Auto) Lymph % (Auto) [place] % (Auto) Eos % (Auto) Baso % (Auto) Lymph # (Auto) [place] # (Auto) Eos # (Auto) Baso # (Auto) Abs Immat Gran (auto) Absolute Neuts (auto) Absolute Nucleated RBC Nucleated RBC % (auto) VBG pH VBG pCO2 VBG pO2 VBG HCO3 VBG O2 Saturation VBG Base Excess Sodium 136 Potassium 5.1 Chloride 97 Carbon Dioxide 26 Anion Gap 18 BUN 57 H Creatinine 5.33 H* Estim Creat Clear Calc 9.9 Estimated GFR 8 POC Glucose 204 H Random Glucose 188 H Calcium 8.6 Phosphorus 5.2 H Magnesium 3.6 H* Total Bilirubin AST ALT Alkaline Phosphatase Total Protein Albumin U Random Total Protein 137 H Urine Creatinine 159.68 05/26/25 05/26/25 05/27/25 21:17 23:55 05:12 WBC 13.5 H RBC 2.74 L Hgb 7.7 L Hct 25.0 L MCV 91.2 MCH 28.1 MCHC 30.8 L RDW 19.4 H Plt Count 194 MPV 10.8 Immature Gran % (Auto) 0.8 H Neut % (Auto) 75.5 H Lymph % (Auto) 11.5 L [place] % (Auto) 9.6 Eos % (Auto) 1.8 Baso % (Auto) 0.8 Lymph # (Auto) 1.6 [place] # (Auto) 1.3 H Eos # (Auto) 0.2 Baso # (Auto) 0.1 Abs Immat Gran (auto) 0.11 H Absolute Neuts (auto) 10.2 H Absolute Nucleated RBC 0.030 H Nucleated RBC % (auto) 0.2 VBG pH VBG pCO2 VBG pO2 VBG HCO3 VBG O2 Saturation VBG Base Excess Sodium 137 Potassium 4.7 Chloride 98 Carbon Dioxide 28 Anion Gap 16 BUN 60 H Creatinine 5.26 H* Estim Creat Clear Calc 10.1 Estimated GFR 8 POC Glucose 141 H 153 H Random Glucose 125 H Calcium 8.6 Phosphorus 5.1 H Magnesium 3.5 H* Total Bilirubin 1.0 AST 49 H ALT 15 Alkaline Phosphatase 188 H Total Protein 5.8 L Albumin 3.4 L U Random Total Protein Urine Creatinine 05/27/25 05/27/25 05/27/25 05:19 07:15 08:17 WBC RBC Hgb Hct MCV MCH MCHC RDW Plt Count MPV Immature Gran % (Auto) Neut % (Auto) Lymph % (Auto) [place] % (Auto) Eos % (Auto) Baso % (Auto) Lymph # (Auto) [place] # (Auto) Eos # (Auto) Baso # (Auto) Abs Immat Gran (auto) Absolute Neuts (auto) Absolute Nucleated RBC Nucleated RBC % (auto) VBG pH 7.52 H VBG pCO2 39 VBG pO2 43 VBG HCO3 32 H VBG O2 Saturation 69.0 VBG Base Excess 9.4 Sodium Potassium Chloride Carbon Dioxide Anion Gap BUN Creatinine Estim Creat Clear Calc Estimated GFR POC Glucose 67 111 Random Glucose Calcium Phosphorus Magnesium Total Bilirubin AST ALT Alkaline Phosphatase Total Protein Albumin U Random Total Protein Urine Creatinine 05/27/25 11:21 WBC RBC Hgb Hct MCV MCH MCHC RDW Plt Count MPV Immature Gran % (Auto) Neut % (Auto) Lymph % (Auto) [place] % (Auto) Eos % (Auto) Baso % (Auto) Lymph # (Auto) [place] # (Auto) Eos # (Auto) Baso # (Auto) Abs Immat Gran (auto) Absolute Neuts (auto) Absolute Nucleated RBC Nucleated RBC % (auto) VBG pH VBG pCO2 VBG pO2 VBG HCO3 VBG O2 Saturation VBG Base Excess Sodium Potassium Chloride Carbon Dioxide Anion Gap BUN Creatinine Estim Creat Clear Calc Estimated GFR POC Glucose 103 Random Glucose Calcium Phosphorus Magnesium Total Bilirubin AST ALT Alkaline Phosphatase Total Protein Albumin U Random Total Protein Urine Creatinine Microbiology Microbiology Results: Microbiology 05/25/25 17:46 Blood - Venous Blood Culture - Preliminary No growth after 24 hours. 05/25/25 17:36 Blood - Venous Blood Culture - Preliminary No growth after 24 hours. 05/25/25 20:59 Urine clean catch Urine Culture - Preliminary No growth to date. Procedures Date of Service Date of Service: 05/27/25 Assessment & Plan Assessment and plan (1) PREM (acute kidney injury): Status: Acute Plan PREM most likely due to ischemic tubular injury Had at least 3 episodes of PREM in the last 1 month. Continue current supportive care for now; Labs stable No absolute indication for dialysis today. Shall follow up closely Progress Note: Quality Stroke Does the patient have a stroke diagnosis?: No
--- NOTE | 2025-05-27 15:11 | MHC.CM.PN ---
PT REMAINS IN ICU ON PRESSOR SUPPORT. CM WILL CONTINUE TO FOLLOW FOR ANY CHANGE TO DC PLAN.
--- NOTE | 2025-05-27 16:20 | MHC.SLORD ---
Speech Language Pathology Order Status: Patient seen by MEDICAL DIRECTOR OCCUPATIONAL HEALTH quickly, no PO intake seen. Patient reporting no swallowing difficulties. RN with no concerns. Poor PO intake noted for lunch. Recommend patient continues current diet. MEDICAL DIRECTOR OCCUPATIONAL HEALTH to follow.
[2025-05-27 18:06] LABS: Glucose, Whole Blood 93 mg/dL (60-115)
--- NOTE | 2025-05-27 18:15 | PC.NURSE ---
Patient with continued need for pressor support today. Titrating to goals of MAP>60 or SBP>100 (per MD verbal today). Patient fine crackles to lung bases and orthophea on 1-3 liters depending on position and increasing oxygen with sleep. Accelerated Junctional Rhythm with BBB and occasionally paced, cap refill>2, finger cold and dusky (history of raynauds syndrome), given heat packs for hands. Poor PO intake today, mostly drinking water. Ate only a few bites of each meal. No BM. Maza patent however oliguric. MD aware. No acute changes to patient health status today. No health events to report this shift
[2025-05-27 21:23] LABS: Glucose, Whole Blood 83 mg/dL (60-115)
[2025-05-28] VITALS (28 sets, daily range): BP systolic 96–139; BP diastolic 32–90; PULSE 50–76; RESP 11–22; TEMP 36.4–36.9; O2SAT 57–100; BMI 31.7
[2025-05-28] MEDS: Albumin Human 25 % 100 ML IV (01:59)
[2025-05-28] MEDS: 0.9 % Sodium Chloride Flush 3 ML SYRINGE IVFLUSH ×4 (02:00→22:00)
[2025-05-28 05:06] LABS: VBG HCO3 33 mmol/L (22-26)
[2025-05-28 05:13] LABS: Venous Blood Gas Refer to POC result
[2025-05-28 05:18] LABS: MANUAL DIFF FLAG NO
[2025-05-28 05:39] LABS: Hematocrit 22.4 % (37.0-47.0); Imm Gran Abs Auto 0.05 X10*3/uL (0.00-0.03); Imm Gran Pct Auto 0.6 % (0.0-0.4); Lymphocytes Absolute Auto 1.2 X10*3/uL (1.2-4.9); Mean Corpuscular HGB Conc 30.4 g/dl (31.0-35.0); Mean Corpuscular Hemoglobin 27.5 pg (27.0-33.0); Mean Corpuscular Volume 90.7 fL (80.0-98.0); NRBC Abs Auto 0.000 X10*3/uL (0.0-0.012); NRBC Pct Auto 0.0 /100WBC (0.0-0.2); Platelet Count 122 X10*3/uL (160-400); Red Blood Count 2.47 X10*6/uL (4.20-5.50); White Blood Count 8.8 X10*3/uL (4.8-10.8)
[2025-05-28 05:44] LABS: Albumin Level 4.2 g/dL (3.5-5.0); Anion Gap 18 (12-20); Blood Urea Nitrogen 60 mg/dL (9-16); Calcium 8.8 mg/dL (8.4-10.2); Carbon Dioxide 26 mmol/L (22-29); Chloride 98 mmol/L (96-108); Creatinine Clr Calc Pharmacy 10.7; Estimated Glomerular Filt Rate 9; Magnesium 3.3 mg/dL (1.6-2.6); Potassium 4.7 mmol/L (3.3-5.1); Sodium 137 mmol/L (135-145)
[2025-05-28 05:45] LABS: Hemoglobin 6.8 g/dl (12.0-16.0)
[2025-05-28 08:42] LABS: OBS Int Ctl Valid YES; OBS1 POSITIVE (NEGATIVE)
--- NOTE | 2025-05-28 09:52 | PM.CCPN ---
Subjective Subjective Date of Service: 05/28/25 Interval History: 65-year-old lady with underlying multiple sclerosis with spasms, CAD status post LAD stenting, subdural hematoma, chronic kidney disorder, pulmonary emboli, AFib on Eliquis with tachy-dalia syndrome status post pacemaker, CVA, type 2 diabetes mellitus, Raynaud's admitted on 05/25/2025 with malaise, acute kidney injury, hyperkalemia, hypotension with poor response to initial IV fluids requiring pressor support, likely secondary to underlying UTI. No events overnight. Titrated off pressor support. Critical Care Time (minutes): 0 Physical Exam Vital Signs: Vital Signs: Last Vital Signs Temp 98.4 F 05/28/25 09:00 Pulse 60 05/28/25 09:00 Resp 18 05/28/25 09:00 BP 118/43 L 05/28/25 09:00 Pulse Ox 96 05/28/25 08:56 O2 Del Method Nasal Cannula 05/28/25 08:56 O2 Flow Rate 1 05/28/25 08:56 Oxygen Flow Rate 1 05/25/25 20:24 BMI result Body Mass Index 31.7 Const: General: no acute distress, alert and awake Eyes: Sclerae: sclerae normal EOM: EOMs intact bilaterally Neck: Neck: Yes no lymphadenopathy, Yes trachea midline and Yes supple Resp: Effort & Inspection: normal respiratory effort and no respiratory distress Auscultation: clear to auscultation bilaterally Cardio: Rate: regular rate Rhythm: regular rhythm Heart sounds: no gallops, no murmurs and no rubs GI: Palpation (GI): Soft to palpation and Other GI palpation findings present ( Nontender) Auscultation: normal bowel sounds Extrem: General: Yes no pedal edema, No clubbing and No cyanosis Objective Data Labs 05/28/25 05:00 05/28/25 05:00 Labs: Laboratory Results - last 24 hr 05/27/25 05/27/25 05/27/25 11:21 18:03 21:19 WBC RBC Hgb Hct MCV MCH MCHC RDW Plt Count MPV Immature Gran % (Auto) Neut % (Auto) Lymph % (Auto) [place] % (Auto) Eos % (Auto) Baso % (Auto) Lymph # (Auto) [place] # (Auto) Eos # (Auto) Baso # (Auto) Abs Immat Gran (auto) Absolute Neuts (auto) Absolute Nucleated RBC Nucleated RBC % (auto) VBG pH VBG pCO2 VBG pO2 VBG HCO3 VBG O2 Saturation VBG Base Excess Sodium Potassium Chloride Carbon Dioxide Anion Gap BUN Creatinine Estim Creat Clear Calc Estimated GFR POC Glucose 103 93 83 Random Glucose Calcium Phosphorus Magnesium Albumin Stool Occult Blood Blood Type Antibody Screen Crossmatch 05/28/25 05/28/25 05/28/25 05:00 05:03 06:39 WBC 8.8 RBC 2.47 L Hgb 6.8 L* Hct 22.4 L MCV 90.7 MCH 27.5 MCHC 30.4 L RDW 19.0 H Plt Count 122 L D MPV 10.3 Immature Gran % (Auto) 0.6 H Neut % (Auto) 69.0 Lymph % (Auto) 13.6 L [place] % (Auto) 9.8 Eos % (Auto) 6.1 H Baso % (Auto) 0.9 Lymph # (Auto) 1.2 [place] # (Auto) 0.9 Eos # (Auto) 0.5 H Baso # (Auto) 0.1 Abs Immat Gran (auto) 0.05 H Absolute Neuts (auto) 6.1 Absolute Nucleated RBC 0.000 Nucleated RBC % (auto) 0.0 VBG pH 7.46 H VBG pCO2 46 VBG pO2 43 VBG HCO3 33 H VBG O2 Saturation Not Reportable VBG Base Excess 8.4 Sodium 137 Potassium 4.7 Chloride 98 Carbon Dioxide 26 Anion Gap 18 BUN 60 H Creatinine 4.95 H* Estim Creat Clear Calc 10.7 Estimated GFR 9 POC Glucose Random Glucose 86 Calcium 8.8 Phosphorus 4.9 H Magnesium 3.3 H Albumin 4.2 Stool Occult Blood Blood Type A Positive Antibody Screen NEGATIVE Crossmatch See Detail 05/28/25 08:21 WBC RBC Hgb Hct MCV MCH MCHC RDW Plt Count MPV Immature Gran % (Auto) Neut % (Auto) Lymph % (Auto) [place] % (Auto) Eos % (Auto) Baso % (Auto) Lymph # (Auto) [place] # (Auto) Eos # (Auto) Baso # (Auto) Abs Immat Gran (auto) Absolute Neuts (auto) Absolute Nucleated RBC Nucleated RBC % (auto) VBG pH VBG pCO2 VBG pO2 VBG HCO3 VBG O2 Saturation VBG Base Excess Sodium Potassium Chloride Carbon Dioxide Anion Gap BUN Creatinine Estim Creat Clear Calc Estimated GFR POC Glucose Random Glucose Calcium Phosphorus Magnesium Albumin Stool Occult Blood POSITIVE Blood Type Antibody Screen Crossmatch Microbiology Microbiology Results: Microbiology 05/25/25 17:46 Blood - Venous Blood Culture - Preliminary No growth after 48 hours. 05/25/25 17:36 Blood - Venous Blood Culture - Preliminary No growth after 48 hours. 05/25/25 20:59 Urine clean catch Urine Culture - Preliminary Culture in progress. Progress Note: A&P Assessment and plan (1) Atrial fibrillation: Status: Acute (2) Raynaud's disease: Status: Acute (3) Acute UTI: Status: Resolved (4) PREM (acute kidney injury): Status: Acute (5) Multiple sclerosis: Status: Acute Plan Assessment: 65-year-old lady with underlying multiple sclerosis, CAD, CKD, AFib on Eliquis admitted with acute kidney and hypotension on the background of likely UTI. Plan: Neuro: No acute issues. Cardiac: Distributive shock, resolved, titrated off pressor support. Underlying CAD and AFib. Pulmonary: No acute issues. Renal: Acute renal failure on the background of chronic kidney disease. Non oliguric. Continue to monitor renal indices and urine output. Endo: No acute issues. GI: No acute issues. ID: Positive UA, cultures growing yeast, empiric coverage for an acute UTI with ceftriaxone and fluconazole. Heme/Onc: Coagulopathy, Eliquis held. Dilutional anemia, patient to receive 1 unit of packed red blood cells. Psych: No acute issues. Miscellaneous: Underlying multiple sclerosis with spasms, continue diazepam. Prophylaxis: Pneumatic compression Diet: Modified Quality Stroke Does the patient have a stroke diagnosis?: No VTE Prior VTE?: No VTE Risk Level:: Medical - moderate - high VTE Device Contraindication: Treatment Not Indicated VTE Drug Contraindication: N/A - Med Ordered
--- NOTE | 2025-05-28 11:06 | PM.EVENT ---
Event Note Date of Service: 05/28/25 Event Note: ICU attending. tx for UTI and anemia. On IV rocephin, received 1 unit PRBC Time Spent With Patient Time: Total time managing care of this patient today ____ minutes.
[2025-05-28 11:46] LABS: Glucose, Whole Blood 72 mg/dL (60-115)
[2025-05-28] MEDS: Fluconazole in NaCl,Iso-Osm 100 MG in Container,Empty 0 ML 50 MG IV (12:11)
[2025-05-28 16:40] LABS: Glucose, Whole Blood 54 mg/dL (60-115)
[2025-05-28 17:12] LABS: Glucose, Whole Blood 59 mg/dL (60-115)
[2025-05-28 17:37] LABS: Glucose, Whole Blood 73 mg/dL (60-115)
[2025-05-28 17:50] LABS: ABG HCO3 19 mmol/L (22-26); ABG O2 % Saturation 100.0 %
--- NOTE | 2025-05-28 18:02 | PM.EVENT ---
Event Note Date of Service: 05/28/25 Event Note: RN called for patients low oxygen saturation in the 70's. Patient has a known hx of Raynaud's phenomena and poor peripheral perfusion. ABG showed PO2 of 117, normal PH and PCO2 27. She was placed on high flow oxygen with good relief of SOB symptoms Plan CXR HH, BNP, INR Monitor clinically for signs of hypoxia as she has very poor peripheral perfusion Time Spent With Patient Time: Total time managing care of this patient today ____ minutes.
[2025-05-28 18:11] LABS: Hematocrit 28.0 % (37.0-47.0); Hemoglobin 8.7 g/dl (12.0-16.0)
[2025-05-28 18:21] LABS: Prothrombin Time 81.8 SEC (11.2-13.5)
[2025-05-28 19:11] LABS: INTERNATIONAL NORM RATIO 7.0 (0.9-1.1)
[2025-05-28 20:59] LABS: Glucose, Whole Blood 140 mg/dL (60-115)
[2025-05-28] MEDS: traZODone HCL 25 MG HALFTAB 12.5 MG PO (23:35)
[2025-05-29] VITALS (13 sets, daily range): BP systolic 110–130; BP diastolic 55–60; PULSE 50–64; RESP 16–20; TEMP 36.1–37.2; O2SAT 85–100; BMI 31.4
--- NOTE | 2025-05-29 00:33 | PM.EVENT ---
Event Note Date of Service: 05/29/25 Event Note: CXR shows a moderate right pleural effusion with a newly developing left effusion. proBNP is markedly elevated at 77,315.2; H/H 8.7/28. Physical examination bilateral lower ext edema, no respiratory distress, decreased breath sounds R>L. Furosemide (Lasix) 10 mg IV has been ordered. Plan to reassess volume status and discuss with Nephrology regarding the ongoing use of diuretics. A VBG has been ordered for the morning; the patient was placed on HFNC during the day. Raynaud?s is affecting oxygen saturation readings on the continuous SpO2 probe, with falsely low readings in the 50?60% range. When using the portable respiratory ear probe, saturations are in the 90s, and correlation with the continuous probe showed good waveform on both. Day team please consider transitioning to SpO monitoring every 2 hours using the portable respiratory ear probe. Time Spent With Patient Time: Total time managing care of this patient today ____ minutes.
[2025-05-29] MEDS: Furosemide 20 MG/2 ML VIAL 10 MG IVPUSH (01:00)
[2025-05-29 05:27] LABS: MANUAL DIFF FLAG NO
[2025-05-29 05:28] LABS: Hematocrit 28.1 % (37.0-47.0); Hemoglobin 8.8 g/dl (12.0-16.0); Imm Gran Abs Auto 0.05 X10*3/uL (0.00-0.03); Imm Gran Pct Auto 0.6 % (0.0-0.4); Lymphocytes Absolute Auto 0.9 X10*3/uL (1.2-4.9); Mean Corpuscular HGB Conc 31.3 g/dl (31.0-35.0); Mean Corpuscular Hemoglobin 27.8 pg (27.0-33.0); Mean Corpuscular Volume 88.9 fL (80.0-98.0); NRBC Abs Auto 0.040 X10*3/uL (0.0-0.012); NRBC Pct Auto 0.5 /100WBC (0.0-0.2); Platelet Count 140 X10*3/uL (160-400); Red Blood Count 3.16 X10*6/uL (4.20-5.50); White Blood Count 8.7 X10*3/uL (4.8-10.8)
[2025-05-29 05:29] LABS: Venous Blood Gas Refer to POC result
[2025-05-29 05:33] LABS: VBG HCO3 19 mmol/L (22-26)
--- NOTE | 2025-05-29 06:09 | PC.NURSE ---
Addendum entered by Olivia Frausto RN 05/29/25 06:12: ordered repeat H/H and PT/INR Original Note: When [employer] and this RN went to reposition pt, this RN witnessed moderate amount of dark red blood coming out of pt's anus. BP115/58 HR50 SpO2 94% on HFNC FiO2 35% 30L. Dr Janessa Kauffman was made aware
[2025-05-29 06:34] LABS: Albumin Level 4.0 g/dL (3.5-5.0); Anion Gap 26 (12-20); Blood Urea Nitrogen 71 mg/dL (9-16); Calcium 8.8 mg/dL (8.4-10.2); Carbon Dioxide 18 mmol/L (22-29); Chloride 98 mmol/L (96-108); Creatinine Clr Calc Pharmacy 9.7; Estimated Glomerular Filt Rate 8; Magnesium 3.5 mg/dL (1.6-2.6); Potassium 5.4 mmol/L (3.3-5.1); Sodium 137 mmol/L (135-145)
[2025-05-29 06:55] LABS: ABG Refer to POC result
[2025-05-29 07:38] LABS: Glucose, Whole Blood 63 mg/dL (60-115)
[2025-05-29] MEDS: Brimonidine Tartrate 0.2% Oph 5 ML BOTTLE 1 DROP EYE-BOTH ×2 (08:37→21:43)
[2025-05-29] MEDS: 0.9 % Sodium Chloride Flush 3 ML SYRINGE IVFLUSH ×2 (08:37→16:04)
[2025-05-29] MEDS: Lidocaine 4 % Patch ADH..PATCH 2 PATCH TRANSDERMA (08:38)
[2025-05-29] MEDS: Dorzolamide HCl 2 % Ophth Sol 10 ML DRPBTL 1 DROP EYE-BOTH ×2 (08:38→21:43)
[2025-05-29 08:46] LABS: Prothrombin Time 90.3 SEC (11.2-13.5)
[2025-05-29 08:58] LABS: Glucose, Whole Blood 206 mg/dL (60-115)
[2025-05-29 09:22] LABS: INTERNATIONAL NORM RATIO 7.8 (0.9-1.1)
--- NOTE | 2025-05-29 10:36 | PM.GICN ---
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 Transferred to [facility] overnight with complicated by witnessed BRBPR this morning. Vitals stable with high supplemental O2 demands. Repeat H&H pending. Pt also with severe PREM with Cr 5. Nephrology following. Patient was seen at bedside with his son present. He reports that patient has no prior history of GI bleeding. Patient reports mild left lower sided pain and cramping. No appetite. Per collateral report from nursing staff, has had 5 bowel movements in the last 2 days, with at least 2 recent ones with small amount of blood. INR 7.8 this morning. Last dose of Eliquis was 05/27/[address] abdomen and pelvis without contrast from admission with generalized volume overload but no acute changes in the colon. Of note, patient also with history of partial sigmoid colon resection, she is unable to state why, but imaging shows diverticulosis and possibly was for complicated diverticulitis. Imaging also shows rectum and left side of colon with significant fecal loading. Review of Systems Review of Systems: Yes all other systems are reviewed and are negative [facility], [facility] Past Medical History Medical History (Updated 05/29/25 @ 11:53 by Delaney Roberson MD) Atrial fibrillation Diabetes mellitus Anemia CAD (coronary artery disease) Heart valve regurgitation Gitelman syndrome Polycystic ovarian syndrome Myocardial infarction Sleep apnea Fibromyalgia COPD (chronic obstructive pulmonary disease) Mild asthma Orthostatic hypotension Raynaud's disease Pulmonary embolism Coronary atherosclerosis HTN (hypertension) Neuropathy Multiple sclerosis Chronic pain syndrome PTSD (post-traumatic stress disorder) Opioid dependence Depression Hypercalcemia Elevated cholesterol Type 2 diabetes mellitus Thyroid nodule Hypothyroid Surgical History Surgical History Hx of reduction mammoplasty Hx of tubal ligation Hx of hernia repair History of rectal surgery History of colon resection S/P panniculectomy History of lobectomy of thyroid Hx of hysterectomy Hx of appendectomy Hx of dilation and curettage Hx of heart artery stent Social History Social History Household Members: Children Household Members Other:: Jony Bah Housing: Apartment Are you a primary acute care assistant to a significant other at home: No Do you presently have visiting nurse or other home services: Yes Patient Tobacco Use Status: Former Tobacco user Tobacco use type: Cigarette Years Smoked: 40 Second Hand Smoke Exposure: No Currently Displaying Signs/Symptoms of Drug Intoxication Withdrawal: No Have you been hit, kicked, punched, or otherwise hurt by someone within the past year? If so, by whom?: No Do you feel safe in your current relationship?: No Current Relationship Is there a partner from a previous relationship who is making you feel unsafe now?: No Are you made to feel afraid or neglected: No Mandaeism Healthcare Practices: Non-denomenational Advance Directives: No Advance Directives Information Provided: Yes Do you have a plan to hurt others: No Plan Recently lost weight without trying: Unsure Eating poorly because of decreased appetite: Yes Nutrition Risks: Poor intake 0-25% >4 days Patient : No : No Poor oral hygiene: No service: No Meds Allergies Allergy/AdvReac Type Severity Reaction Status Date / Time diphenhydramine (From Allergy Severe Anaphylaxis Verified 05/25/25 14:38 Benadryl) Penicillins Allergy Severe Anaphylaxis Verified 05/25/25 14:38 Sulfa (Sulfonamide Allergy Severe Anaphylaxis Verified 05/25/25 14:38 Antibiotics) clarithromycin Allergy Intermediate Shortness Verified 05/25/25 14:38 of Breath gabapentin Allergy Intermediate Confusion Verified 05/25/25 14:38 hydrochlorothiazide (From Allergy Intermediate Shortness Verified 05/25/25 14:38 Hyzaar) of Breath levofloxacin (From Levaquin) Allergy Intermediate dizziness/h Verified 05/25/25 14:38 eadache/ulices sea losartan (From Cozaar) Allergy Intermediate Shortness Verified 05/25/25 14:38 of Breath metformin Allergy Intermediate strange Verified 05/25/25 14:38 feeling amoxicillin (From Augmentin) Allergy Unknown Unknown Verified 05/03/25 14:31 clavulanic acid (From Allergy Unknown Unknown Verified 05/03/25 14:31 Augmentin) duloxetine (From Cymbalta) Allergy Unknown Unknown Verified 05/03/25 14:31 fluoxetine Allergy Unknown Unknown Verified 05/03/25 14:31 NSAIDS (Non-Steroidal Allergy Unknown Unknown Verified 05/03/25 14:31 Anti-Inflamma pregabalin AdvReac Intermediate Dizziness Verified 05/03/25 14:31 doxycycline AdvReac Mild Gastrointestinal Verified 05/03/25 14:31 Upset Active Medications: Current Medications Amantadine HCl (Amantadine Hcl 100 Mg Capsule) 100 mg PO BID [facility] Last Admin: 05/29/25 08:37 Dose: 100 mg Brimonidine Tartrate (Brimonidine Tartrate 0.2% Oph 5 Ml Bottle) 1 drop EYE-BOTH BID [facility] Last Admin: 05/29/25 08:37 Dose: 1 drop Dextrose (Dextrose 50 % 25 Gm/50 Ml Syringe) 25 gm IVPUSH Q15M PRN; Protocol PRN Reason: per Hypoglycemia Standing Ord. Last Admin: 05/29/25 08:34 Dose: 25 gm Diazepam (Diazepam 5 Mg Tablet) 5 mg PO TID PRN PRN Reason: anxiety/restlessness Last Admin: 05/29/25 08:37 Dose: 5 mg Dorzolamide HCl (Dorzolamide Hcl 2 % Ophth Doris 10 Ml Drpbtl) 1 drop EYE-BOTH BID [facility] Last Admin: 05/29/25 08:38 Dose: 1 drop Ceftriaxone Sodium 1 gm/ (Sodium Chloride) 50 mls @ 100 mls/hr IV Q24H [facility] Last Infusion: 05/28/25 17:35 Dose: Infused Fluconazole 100 mg/ IV (Miscellaneous Supplies) 50 mls @ 50 mls/hr IV Q24H [facility] Last Infusion: 05/28/25 14:08 Dose: Infused Insulin Human Lispro (Insulin Lispro 100 Unit/Ml 3 Ml Vial) 0 unit SUBCUT QIDACHS [facility]; Protocol Last Admin: 05/29/25 08:14 Dose: Not Given Latanoprost (Latanoprost 0.005 % Ophth Doris 2.5 Ml Drops) 1 drop EYE-BOTH BEDTIME [facility] Levothyroxine Sodium (Levothyroxine Sodium 75 Mcg Tablet) 75 mcg PO DAILY@0600 [facility] Last Admin: 05/29/25 05:42 Dose: 75 mcg Lidocaine (Lidocaine 4 % Patch Adh..Patch) 2 patch TRANSDERMA DAILY [facility]; Protocol Last Admin: 05/29/25 08:38 Dose: 2 patch Morphine Sulfate (Morphine Sulfate 4 Mg/Ml Cartridge) 2 mg IVPUSH Q4H PRN; Protocol PRN Reason: Pain, Severe (Pain Scale 7-10) Last Admin: 05/29/25 08:50 Dose: 2 mg Multi-Ingred Cream/Lotion/Oil/Oint (Artificial Tears Ophth Oint 3.5 Gm Tube) 1 appl EYE-BOTH TID PRN; Protocol PRN Reason: Dry Eyes Ondansetron HCl (Ondansetron Hcl 4 Mg/2 Ml Vial) 4 mg IVPUSH Q8H PRN PRN Reason: Nausea and Vomiting Sodium Chloride (0.9 % Sodium Chloride Flush 3 Ml Syringe) [facility] Last Admin: 05/29/25 08:37 Dose: 3 ml Home Medications ?Medication ?Instructions ?Recorded ?Confirmed ?Last Taken ?Type amantadine HCl 100 mg capsule 100 mg PO BID 12/13/22 05/25/25 Unknown History apixaban 5 mg tablet (Eliquis) 5 mg PO BID 12/13/22 05/25/25 Unknown History brimonidine 0.2 % eye drops 1 drp ophthalmic (eye) BID 12/13/22 05/25/25 Unknown History dorzolamide 2 % eye drops 1 drp ophthalmic (eye) BID 12/13/22 05/25/25 Unknown History montelukast 10 mg tablet 10 mg PO DAILY 12/13/22 05/25/25 Unknown History sildenafil (pulm.hypertension) 20 20 mg PO TID 12/13/22 05/25/25 Unknown History mg tablet albuterol sulfate 2.5 mg/3 mL 2.5 mg inhalation Q6H PRN Wheezing 04/17/25 05/25/25 Unknown History (0.083 %) solution for nebulization aspirin 81 mg chewable tablet 81 mg PO DAILY 04/17/25 05/25/25 Unknown History camphor-menthol 0.5 %-0.5 % lotion 1 appl topical BID PRN Itching 04/17/25 05/25/25 Unknown History dextroamphetamine-amphetamine 30 30 mg PO DAILY 04/17/25 05/25/25 Unknown History mg tablet (Adderall) diazepam 5 mg tablet 5 mg PO Q8H PRN Anxiety/spasm 04/17/25 05/25/25 Unknown History diclofenac sodium 1 % topical gel 2 g topical QID 04/17/25 05/25/25 Unknown History dulaglutide 3 mg/0.5 mL 3 mg subcut TU@0900 04/17/25 05/25/25 Unknown History subcutaneous pen injector (Trulicity) latanoprost 0.005 % eye drops 1 drp ophthalmic (eye) BEDTIME 04/17/25 05/25/25 Unknown History levothyroxine 75 mcg tablet 75 mcg PO DAILY@0600 04/17/25 05/25/25 Unknown History lidocaine 4 % topical patch 2 patch topical DAILY 04/17/25 05/25/25 Unknown History multivitamin with minerals 1 tab PO DAILY 04/17/25 05/25/25 Unknown History sodium chloride 7 % for 1 inh inhalation BID 04/17/25 05/25/25 Unknown History nebulization thiamine HCl (vitamin B1) 100 mg 100 mg PO DAILY 04/17/25 05/25/25 Unknown History tablet furosemide 40 mg tablet (Lasix) 40 mg PO BID@0900,1700 05/25/25 05/25/25 Unknown History pantoprazole 20 mg tablet,delayed 20 mg PO DAILY@0630 PRN Gastric 05/25/25 05/25/25 Unknown History release Reflux Physical Exam Exam: Exam: elderly female central line in place in R IJ abd soft mildly distended mildly tender in LLQ without guarding pure-wick in place with <100 cc urine in the last 12h per report Vital Signs: Vital Signs: Last Vital Signs Temp 98.9 F 05/29/25 07:41 Pulse 50 05/29/25 07:41 Resp 20 05/29/25 08:05 BP 112/57 L 05/29/25 07:41 Pulse Ox 96 05/29/25 07:41 O2 Del Method High Flow Nasal C annula 05/29/25 07:41 O2 Flow Rate 40 05/29/25 07:41 FiO2 35 05/29/25 04:01 Oxygen Flow Rate 1 05/25/25 20:24 BMI result Body Mass Index 31.4 Results Labs 05/29/25 05:17 05/29/25 05:17 Labs: Short CBC 05/28/25 05/29/25 Range/Units 18:04 05:17 WBC 8.7 (4.8-10.8) X10*3/uL Hgb 8.7 L D 8.8 L (12.0-16.0) g/dl Hct 28.0 L D 28.1 L (37.0-47.0) % Plt Count 140 L (160-400) X10*3/uL BMP 05/29/25 05:17 Sodium 137 Potassium 5.4 H Chloride 98 Carbon Dioxide 18 L BUN 71 H Creatinine 5.42 H* Calcium 8.8 Liver Function 05/29/25 Range/Units 05:17 Albumin 4.0 (3.5-5.0) g/dL Microbiology Microbiology Results: Microbiology 05/25/25 20:59 Urine clean catch Urine Culture - Final Geovanna glabrata 05/25/25 17:46 Blood - Venous Blood Culture - Preliminary No growth after 48 hours. 05/25/25 17:36 Blood - Venous Blood Culture - Preliminary No growth after 48 hours. Assessment and Plan (1) Bright red rectal bleeding: Status: Acute (2) PREM (acute kidney injury): Status: Acute (3) Shock: Status: Acute (4) Atrial fibrillation: Status: Acute (5) Supratherapeutic INR: Status: Acute Plan Ddx for BRBPR include colon ischemia, stercoral colitis. Infectious colitis from C Diff also in the differentials given extended use of Abx. Bleeding likely exacerbated with supratherapeutic INR. ? malnutrition vs liver dysfunction. Last dose of eliquis 05/27. Plan: - Monitor CBC BID - CT abd/pel without contrast if pt able to lay flat - otherwise KUB to assess fecal loading - Check CDiff - Vit K 10 mg IV - Check LFTs - Hold off diagnostic flex sig given volume overload and resp status - Management of ARF as per renal Thank you for allowing me to participate in her care. Please do not hesitate to reach out for any questions or concerns. Procedures Date of Service Date of Service: 05/29/25
--- NOTE | 2025-05-29 11:26 | P.PNIM_ITS ---
Subjective Subjective Date of Service: 05/29/25 Review of Systems Follow up Physical Exam 2 Vital Signs: Vital Signs: Last Vital Signs Temp 98.9 F 05/29/25 07:41 Pulse 50 05/29/25 07:41 Resp 20 05/29/25 08:05 BP 112/57 L 05/29/25 07:41 Pulse Ox 96 05/29/25 09:30 O2 Del Method High Flow Nasal C annula 05/29/25 09:30 O2 Flow Rate 30 05/29/25 09:30 FiO2 35 05/29/25 09:30 Oxygen Flow Rate 1 05/25/25 20:24 BMI result Body Mass Index 31.4 Objective Data Active Medications Amantadine HCl (Amantadine Hcl 100 Mg Capsule) 100 mg PO BID [facility]S [facility]CLUDE 234 BEDS AT THE [facility] Last Admin: 05/29/25 08:37 Dose: 100 mg Documented By: VIKAS Brimonidine Tartrate (Brimonidine Tartrate 0.2% Oph 5 Ml Bottle) 1 drop EYE- BOTH BID COUNTS INCLUDE 234 BEDS AT THE [facility] Last Admin: 05/29/25 08:37 Dose: 1 drop Documented By: VIKAS Dextrose (Dextrose 50 % 25 Gm/50 Ml Syringe) 25 gm IVPUSH Q15M PRN; Protocol PRN Reason: per Hypoglycemia Standing Ord. Last Admin: 05/29/25 08:34 Dose: 25 gm Documented By: VIKAS Comments: patient awake alert, unable to tolerate PO glucose or juice Diazepam (Diazepam 5 Mg Tablet) 5 mg PO TID PRN PRN Reason: anxiety/restlessness Last Admin: 05/29/25 08:37 Dose: 5 mg Documented By: VIKAS Dorzolamide HCl (Dorzolamide Hcl 2 % Ophth Doris 10 Ml Drpbtl) 1 drop EYE-BOTH BID COUNTS INCLUDE 234 BEDS AT THE [facility] Last Admin: 05/29/25 08:38 Dose: 1 drop Documented By: VIKAS Furosemide (Furosemide 20 Mg/2 Ml Vial) 20 mg IVPUSH DAILY COUNTS INCLUDE 234 BEDS AT THE [facility]; Protocol Ceftriaxone Sodium 1 gm/ (Sodium Chloride) 50 mls @ 100 mls/hr IV Q24H COUNTS INCLUDE 234 BEDS AT THE [facility] Last Infusion: 05/28/25 17:35 Dose: Infused Documented By: DONNA Fluconazole 100 mg/ IV (Miscellaneous Supplies) 50 mls @ 50 mls/hr IV Q24H COUNTS INCLUDE 234 BEDS AT THE [facility] Last Infusion: 05/28/25 14:08 Dose: Infused Documented By: DICKSON Insulin Human Lispro (Insulin Lispro 100 Unit/Ml 3 Ml Vial) 0 unit SUBCUT QIDACHS COUNTS INCLUDE 234 BEDS AT THE [facility]; Protocol Last Admin: 05/29/25 08:14 Dose: Not Given Documented By: VIKAS Non-Admin Reason: No Insulin Coverage Latanoprost (Latanoprost 0.005 % Ophth Doris 2.5 Ml Drops) 1 drop EYE-BOTH BEDTIME COUNTS INCLUDE 234 BEDS AT THE [facility] Levothyroxine Sodium (Levothyroxine Sodium 75 Mcg Tablet) 75 mcg PO DAILY@0600 COUNTS INCLUDE 234 BEDS AT THE [facility] Last Admin: 05/29/25 05:42 Dose: 75 mcg Documented By: NEGDARINEL Lidocaine (Lidocaine 4 % Patch Adh..Patch) 2 patch TRANSDERMA DAILY [facility]S INCLUDE 234 BEDS AT THE [facility]; Protocol Last Admin: 05/29/25 08:38 Dose: 2 patch Documented By: VIKAS Morphine Sulfate (Morphine Sulfate 4 Mg/Ml Cartridge) 2 mg IVPUSH Q4H PRN; Protocol PRN Reason: Pain, Severe (Pain Scale 7-10) Last Admin: 05/29/25 08:50 Dose: 2 mg Documented By: VIKAS Multi-Ingred Cream/Lotion/Oil/Oint (Artificial Tears Ophth Oint 3.5 Gm Tube) 1 appl EYE-BOTH TID PRN; Protocol PRN Reason: Dry Eyes Ondansetron HCl (Ondansetron Hcl 4 Mg/2 Ml Vial) 4 mg IVPUSH Q8H PRN PRN Reason: Nausea and Vomiting Sodium Chloride (0.9 % Sodium Chloride Flush 3 Ml Syringe) 3 ml IVFLUSH [facility] Last Admin: 05/29/25 08:37 Dose: 3 ml Documented By: VIKAS Labs 05/29/25 05:17 05/29/25 05:17 Labs: Laboratory Results - last 24 hr 05/28/25 05/28/25 05/28/25 06:39 11:41 16:30 MCV MCH MCHC RDW Plt Count MPV Immature Gran % (Auto) Neut % (Auto) Lymph % (Auto) [place] % (Auto) Eos % (Auto) Baso % (Auto) Lymph # (Auto) [place] # (Auto) Eos # (Auto) Baso # (Auto) Abs Immat Gran (auto) Absolute Neuts (auto) Absolute Nucleated RBC Nucleated RBC % (auto) PT INR O2 Saturation ABG pH at Pt Temp ABG pCO2 at Pt Temp ABG pO2 at Pt Temp ABG HCO3 ABG Base Excess (Actual) VBG pH VBG pCO2 VBG pO2 VBG HCO3 VBG O2 Saturation VBG Base Excess Anion Gap Estim Creat Clear Calc Estimated GFR POC Glucose 72 54 L* Random Glucose Calcium Phosphorus Magnesium NT-Pro-B Natriuret Pep Albumin Crossmatch See Detail 05/28/25 05/28/25 05/28/25 17:05 17:33 17:45 MCV MCH MCHC RDW Plt Count MPV Immature Gran % (Auto) Neut % (Auto) Lymph % (Auto) [place] % (Auto) Eos % (Auto) Baso % (Auto) Lymph # (Auto) [place] # (Auto) Eos # (Auto) Baso # (Auto) Abs Immat Gran (auto) Absolute Neuts (auto) Absolute Nucleated RBC Nucleated RBC % (auto) PT INR O2 Saturation 100.0 ABG pH at Pt Temp 7.44 ABG pCO2 at Pt Temp 27 L ABG pO2 at Pt Temp 117 H ABG HCO3 19 L ABG Base Excess (Actual) -3.7 VBG pH VBG pCO2 VBG pO2 VBG HCO3 VBG O2 Saturation VBG Base Excess Anion Gap Estim Creat Clear Calc Estimated GFR POC Glucose 59 L* 73 Random Glucose Calcium Phosphorus Magnesium NT-Pro-B Natriuret Pep Albumin Crossmatch 05/28/25 05/28/25 05/28/25 18:04 18:40 20:49 MCV MCH MCHC RDW Plt Count MPV Immature Gran % (Auto) Neut % (Auto) Lymph % (Auto) [place] % (Auto) Eos % (Auto) Baso % (Auto) Lymph # (Auto) [place] # (Auto) Eos # (Auto) Baso # (Auto) Abs Immat Gran (auto) Absolute Neuts (auto) Absolute Nucleated RBC Nucleated RBC % (auto) PT 81.8 H D INR 7.0 H* O2 Saturation ABG pH at Pt Temp ABG pCO2 at Pt Temp ABG pO2 at Pt Temp ABG HCO3 ABG Base Excess (Actual) VBG pH VBG pCO2 VBG pO2 VBG HCO3 VBG O2 Saturation VBG Base Excess Anion Gap Estim Creat Clear Calc Estimated GFR POC Glucose 140 H Random Glucose Calcium Phosphorus Magnesium NT-Pro-B Natriuret Pep 00126.2 H Albumin Crossmatch 05/29/25 05/29/25 05/29/25 05:17 05:27 07:33 MCV 88.9 MCH 27.8 MCHC 31.3 RDW 19.4 H Plt Count 140 L MPV 10.6 Immature Gran % (Auto) 0.6 H Neut % (Auto) 79.0 H Lymph % (Auto) 10.3 L [place] % (Auto) 8.4 Eos % (Auto) 1.0 Baso % (Auto) 0.7 Lymph # (Auto) 0.9 L [place] # (Auto) 0.7 Eos # (Auto) 0.1 Baso # (Auto) 0.1 Abs Immat Gran (auto) 0.05 H Absolute Neuts (auto) 6.8 Absolute Nucleated RBC 0.040 H Nucleated RBC % (auto) 0.5 H PT INR O2 Saturation ABG pH at Pt Temp ABG pCO2 at Pt Temp ABG pO2 at Pt Temp ABG HCO3 ABG Base Excess (Actual) VBG pH 7.42 VBG pCO2 29 VBG pO2 43 VBG HCO3 19 L VBG O2 Saturation Not Reportable VBG Base Excess -3.6 Anion Gap 26 H Estim Creat Clear Calc 9.7 Estimated GFR 8 POC Glucose 63 Random Glucose 75 Calcium 8.8 Phosphorus 5.8 H Magnesium 3.5 H* NT-Pro-B Natriuret Pep Albumin 4.0 Crossmatch 05/29/25 05/29/25 08:30 08:54 MCV MCH MCHC RDW Plt Count MPV Immature Gran % (Auto) Neut % (Auto) Lymph % (Auto) [place] % (Auto) Eos % (Auto) Baso % (Auto) Lymph # (Auto) [place] # (Auto) Eos # (Auto) Baso # (Auto) Abs Immat Gran (auto) Absolute Neuts (auto) Absolute Nucleated RBC Nucleated RBC % (auto) PT 90.3 H INR 7.8 H* O2 Saturation ABG pH at Pt Temp ABG pCO2 at Pt Temp ABG pO2 at Pt Temp ABG HCO3 ABG Base Excess (Actual) VBG pH VBG pCO2 VBG pO2 VBG HCO3 VBG O2 Saturation VBG Base Excess Anion Gap Estim Creat Clear Calc Estimated GFR POC Glucose 206 H Random Glucose Calcium Phosphorus Magnesium NT-Pro-B Natriuret Pep Albumin Crossmatch Microbiology Microbiology Results: Microbiology 05/25/25 20:59 Urine Culture - Final Urine clean catch Shlomo glabrata Assessment and Plan (1) Supratherapeutic INR: Status: Acute Plan 65 year old women initially admitted to ICU for Shortness of breath and feeling unwell overall. She was hypotensive in the ED and transferred to the ICU for vasopressor support due to poor intitial response to IV fluids. GI bleed, likely upper GI bleed ? colitis BRBPR stable HH at this time GI consultation>check cbc this evening, check Cdiff to r/o infectious colitis, LFTs abd CT pending Supratherapeutic INR 7.8 today 10mg IV vitamin K x1 monitor for signs of bleeding Acute respiratory failure, unspecified 05/28 cxr neg for consolidation but showing small effusion to right side ? [place] [id number] IV lasix 20 mg daily continue supplemental oxygen to keep oxygen saturation > 90% Yesterday had episode of acute hypoxia in the evening, started on high flow initially then transitioned back to nasal canula Raynaud's has very poor peripheral circulation oxygen saturation not reading peripheral digits correctly follow clinical signs of hypoxia can use forehead reader for better results check ABG if hypoxia or hypercarbia suspected UTI urine cx with shlomo continue Rocephin and Fluconazole PREM on CKD 2b Creat 5.42 today nephrology following>likely from tubular injury, no indication for dialysis at this time Follow BMP and avoid nephrotoxic agents Bilateral LE edema Neg DVT studies DM2 ss, ada diet PAF eliquis on hold due to GI bleed Hx of PE eliquis on hold due to GI bleed Hx if tachy-dalia syndrome Pacemaker DVT prophylaxis with SCD boots due to anemia DNR Quality Stroke Does the patient have a stroke diagnosis?: No VTE Prior VTE?: No VTE Risk Level:: Medical - moderate - high VTE Device Contraindication: Treatment Not Indicated VTE Drug Contraindication: N/A - Med Ordered
[2025-05-29 12:00] LABS: Glucose, Whole Blood 112 mg/dL (60-115)
[2025-05-29] MEDS: Furosemide 20 MG/2 ML VIAL IVPUSH (12:15)
[2025-05-29] MEDS: Fluconazole in NaCl,Iso-Osm 100 MG in Container,Empty 0 ML 50 MG IV (12:33)
[2025-05-29 16:18] LABS: Glucose, Whole Blood 64 mg/dL (60-115)
[2025-05-29] MEDS: Latanoprost 0.005 % Ophth Sol 2.5 ML DROPS 1 DROP EYE-BOTH (17:58)
[2025-05-29 18:11] LABS: Glucose, Whole Blood 134 mg/dL (60-115)
[2025-05-29 19:28] LABS: Hematocrit 34.6 % (37.0-47.0); Hemoglobin 10.3 g/dl (12.0-16.0); Mean Corpuscular HGB Conc 29.8 g/dl (31.0-35.0); Mean Corpuscular Hemoglobin 28.1 pg (27.0-33.0); Mean Corpuscular Volume 94.3 fL (80.0-98.0); NRBC Abs Auto 0.050 X10*3/uL (0.0-0.012); NRBC Pct Auto 0.5 /100WBC (0.0-0.2); Platelet Count 162 X10*3/uL (160-400); Red Blood Count 3.67 X10*6/uL (4.20-5.50); White Blood Count 10.9 X10*3/uL (4.8-10.8)
[2025-05-29 20:00] LABS: CDiff Gene PCR NEGATIVE (Negative)
[2025-05-29 20:53] LABS: Glucose, Whole Blood 104 mg/dL (60-115)
[2025-05-30] VITALS (10 sets, daily range): BP systolic 103–132; BP diastolic 49–78; PULSE 32–57; RESP 12–18; TEMP 36.1–36.5; O2SAT 90–100; BMI 31.6
[2025-05-30] MEDS: 0.9 % Sodium Chloride Flush 3 ML SYRINGE IVFLUSH ×4 (00:30→21:12)
--- NOTE | 2025-05-30 02:45 | PM.EVENT ---
Event Note Date of Service: 05/30/25 Event Note: Situation: RN contacted provider for hypoxia with O2 saturations in the 70s on portable ear probe. Background: Patient initially placed on 15 L via oxymask, then titrated down to 3 L via oxymask. With ear probe and repositioning, O2 saturations improved to 93?98%. Assessment: Seen and evaluated at bedside with nursing, RT, and son (Olvin) present. Patient in no acute distress, no use of accessory muscles. Respiratory rate 16. Lung exam notable for decreased breath sounds with fine rales Recommendation/Plan: -Stat VBG and chest X-ray. Chest X-ray: interstitial edema and small right pleural effusion VBG: pH 7.37, pCO2: 38, pO2: 38, pHCO3: 22 on 3L O2 via oxymask Lasix 10 mg IV x 1 dose. Daily Lasix suspended. Reassess volume status. BMP pending The patient's continuous blood glucose monitoring alerting to low blood glucose POC 36, s/p amp D50 168. Time Spent With Patient Time: Total time managing care of this patient today ____ minutes.
[2025-05-30 03:10] LABS: Venous Blood Gas Refer to POC result
[2025-05-30 03:23] LABS: VBG HCO3 22 mmol/L (22-26)
[2025-05-30 03:54] LABS: Glucose, Whole Blood 168 mg/dL (60-115)
[2025-05-30 03:54] LABS: Glucose, Whole Blood 59 mg/dL (60-115)
[2025-05-30 03:54] LABS: Glucose, Whole Blood 36 mg/dL (60-115)
[2025-05-30] MEDS: Furosemide 20 MG/2 ML VIAL 10 MG IVPUSH (04:04)
--- NOTE | 2025-05-30 07:00 | CA_ITS ---
Transthoracic Echocardiogram Patient (Last, First, Middle): Bella Shabazz, Gender: F Date of : 1960 Age: 65 Procedure Date: 05/30/2025 Procedure Type: Transthoracic Echocardiogram [place] [facility] [place]: 157.48 cm Weight: 78.02 kg BSA: 1.79 m2 Heart Rate: 50 bpm BP: 132 / 62 mmHg Manager Automotive: TORSTEN Kent MD: Eliza Hebert NP Network Intern: Jesse Guerrero MD Symptoms: hypoxia, fluid overload Study Quality: Adequate/limited ECG Rhythm: Bradycardia Conclusions: - 1. Normal LV ejection fraction of 60-65% 2. Dilated right ventricle with reduced systolic function 3. Severe biatrial enlargement 4. Moderate to severe mitral regurgitation 5. Severe tricuspid regurgitation 6. Normal LV systolic pressure with severely elevated right atrial pressures 7. No gross pericardial effusion Findings Left Ventricle Normal left ventricular size, thickness, and systolic function. The visually estimated ejection fraction is between 60-65%. There is a flattened septum in diastole ( D shaped left ventricle) consistent with right ventricular volume overload. Diastolic function is indeterminate on the basis of available data. Right Ventricle Moderately increased right ventricular cavity size. There is moderately decreased right ventricular systolic function. Atria Severe biatrial enlargement. Interatrial shunt cannot be excluded. Aortic Valve There is a doming trileaflet aortic valve. There is mild calcification of the aortic valve. There is no aortic valve stenosis. There is no aortic valve regurgitation. Mitral Valve There is mild anterior and posterior mitral leaflet thickening. There is moderate to severe mitral valve regurgitation. There is no mitral valve stenosis. Pulmonic Valve The pulmonic valve is likely normal. Tricuspid Valve Normal tricuspid valve structure. There is severe tricuspid valve regurgitation. Significantly elevated right atrial pressure. There is no evidence of pulmonary hypertension. Great Vessels The pulmonary artery was not well visualized. There is mild dilatation of the ascending aorta measuring 3.70 cm. Venous The inferior vena cava is moderately dilated and does not collapse with inspiration. Pericardium/Pleural There is no evidence of pericardial effusion. There is a left sided pleural effusion. Prior Study Comparison No significant change compared to prior study dated: 04/20/2025. Measurements 2D Linear Measurements IVSd: 0.72 0.6-0.9/0.6-1.0 cm LVIDd: 4.89 3.9-5.3/4.2-5.9 cm LVIDd Index: 2.73 2.4-3.2/2.2-3.1 cm/m2 LVIDs: 3.30 2.0-3.6 cm LVPWd: 0.82 0.7-1.1 cm LA Diam: 4.70 2.7-3.8/3.0-4.0 cm LAIDs Index: 2.63 1.5-2.3 cm/m2 LV Mass: 155.26 67-162/88-224 g LV Mass Index: 86.74 43-95/49-115 g/m2 LVOT Diam: 1.90 3.0+(-)1.3 cm 2D Systolic Function EF 4C: 54.90 >55% EF 2C: 70.80 >55% EF BiP: 64.80 >55% Mitral Valve MV Pk E: 1.54 MV Decel Time: 185.00 E'Lateral: 12.00 E'Medial: 5.66 E/E' Med: 27.20 E/E' Lat: 12.80 PHT: 54.00 MVA PHT: 4.07 Decel [place]: 8.39 MR Vol - PW Dopp: 26.08 MR VTI: 1.63 MR ERO: 16.00 MR Alias Rocael: 0.37 MR RAD: 0.60 LVOT LVOT Pk Rocael: 0.88 LVOT Mn Rocael: 0.56 LVOT VTI: 0.16 LVOT Pk Grad: 3.00 LVOT Mn Grad: 1.00 LVOT Diam: 1.90 LVOT Area: 2.84 Diastolic Function MV Pk E: 1.54 E'Medial: 5.66 E/E' Med: 27.20 E' Laterial: 12.00 E/E' Lat: 12.80 Tricuspid Valve TR Pk Rocael: 2.10 TR Pk Grad: 18.00 RA Press: 15.00 RVSP: 33.00 Great Vessels Aorta Ao Asc: 3.70 2.1-3.4 cm Updated in Other Vendor System with Status of Final Jesse Guerrero MD electronically signed on 05/30/2025 3:27:29 PM with status of Final
[2025-05-30 07:14] LABS: Hematocrit 28.2 % (37.0-47.0); Hemoglobin 8.8 g/dl (12.0-16.0); Mean Corpuscular HGB Conc 31.2 g/dl (31.0-35.0); Mean Corpuscular Hemoglobin 27.9 pg (27.0-33.0); Mean Corpuscular Volume 89.5 fL (80.0-98.0); NRBC Abs Auto 0.030 X10*3/uL (0.0-0.012); NRBC Pct Auto 0.3 /100WBC (0.0-0.2); Platelet Count 168 X10*3/uL (160-400); Red Blood Count 3.15 X10*6/uL (4.20-5.50); White Blood Count 9.2 X10*3/uL (4.8-10.8)
[2025-05-30 07:18] LABS: Prothrombin Time 75.8 SEC (11.2-13.5)
[2025-05-30 07:19] LABS: Glucose, Whole Blood 68 mg/dL (60-115)
[2025-05-30 07:19] LABS: Glucose, Whole Blood 40 mg/dL (60-115)
[2025-05-30 07:33] LABS: INTERNATIONAL NORM RATIO 6.5 (0.9-1.1)
[2025-05-30 07:40] LABS: Alanine Aminotransferase 18 U/L (0-31); Albumin Level 4.1 g/dL (3.5-5.0); Alkaline Phosphatase 198 U/L (39-117); Anion Gap 21 (12-20); Aspartate Amino Transferase 62 U/L (5-31); Blood Urea Nitrogen 79 mg/dL (9-16); Calcium 9.1 mg/dL (8.4-10.2); Carbon Dioxide 23 mmol/L (22-29); Chloride 96 mmol/L (96-108); Creatinine Clr Calc Pharmacy 9.4; Estimated Glomerular Filt Rate 8; Potassium 4.8 mmol/L (3.3-5.1); Sodium 135 mmol/L (135-145); Total Protein 6.2 g/dL (6.5-8.0)
[2025-05-30 07:41] LABS: Glucose, Whole Blood 115 mg/dL (60-115)
--- NOTE | 2025-05-30 08:13 | PC.NURSE ---
Assumed care of pt at 1900. At approx 0200, this RN noted pt to have O2 sat of 74% on 2L O2 via NC. O2 increased to 4LPM and respiratory therapy called to room. RT and RN had a hard time obtaining accurate O2 sat due to Raynauds and poor perfusion. Pt placed on 15L oxymask to recover. Pt boosted in bed and repositioned. After repositioning, sats improved. O2 turned down to 3L via oxy mask. Pt sat 94% on 3L O2. Janessa Pugh MD in to assess pt, ordered CXR and VBG. Plan of care ongoing.
[2025-05-30 09:34] LABS: E. coli EAEC Not Detected (Not Detect.); E. coli EPEC Not Detected (Not Detect.); E. coli ETEC Not Detected (Not Detect.); E. coli STEC Not Detected (Not Detect.); Shigella sp./EIEC Not Detected (Not Detect.)
--- NOTE | 2025-05-30 09:43 | P.PNIM_ITS ---
Subjective Subjective Date of Service: 05/30/25 Review of Systems Follow up GI bleed, acute respiratory failure Continues to have low oxygen saturation on peripheral digits and forehead monitor but clinically does not look hypoxic Overnight placed on OxyMask 15 L and given 1 dose of IV Lasix Continues to look weak and debilitated Physical Exam 2 Exam: Exam: Appearing in no acute distress lung sounds are clear to auscultation heart regular rate rhythm, clear S1, S2 positive bowel sounds, abdomen is soft, nontender neuro patient is alert x3, no focal deficits Edema to LE Vital Signs: Vital Signs: Last Vital Signs Temp 97.1 F 05/30/25 07:06 Pulse 32 L 05/30/25 07:06 Resp 12 05/30/25 07:06 BP 132/62 05/30/25 07:06 Pulse Ox 91 L 05/30/25 07:06 O2 Del Method Oxymask 05/30/25 07:06 O2 Flow Rate 3 05/30/25 07:06 FiO2 35 05/29/25 09:30 Oxygen Flow Rate 1 05/25/25 20:24 BMI result Body Mass Index 31.6 Objective Data Active Medications Amantadine HCl (Amantadine Hcl 100 Mg Capsule) 100 mg PO BID [facility] Last Admin: 05/29/25 20:03 Dose: 100 mg Documented By: CARIN Brimonidine Tartrate (Brimonidine Tartrate 0.2% Oph 5 Ml Bottle) 1 drop EYE- BOTH BID [facility] Last Admin: 05/29/25 21:43 Dose: 1 drop Documented By: CARIN Dextrose (Dextrose 50 % 25 Gm/50 Ml Syringe) 25 gm IVPUSH Q15M PRN; Protocol PRN Reason: per Hypoglycemia Standing Ord. Last Admin: 05/30/25 07:16 Dose: 25 gm Documented By: CARIN Diazepam (Diazepam 5 Mg Tablet) 5 mg PO TID PRN PRN Reason: anxiety/restlessness Last Admin: 05/29/25 21:39 Dose: 5 mg Documented By: CARIN Dorzolamide HCl (Dorzolamide Hcl 2 % Ophth Doris 10 Ml Drpbtl) 1 drop EYE-BOTH BID [facility] Last Admin: 05/29/25 21:43 Dose: 1 drop Documented By: CARIN Furosemide (Furosemide 20 Mg/2 Ml Vial) 20 mg IVPUSH DAILY [facility]; Protocol On Hold: 05/30/25 06:59 Last Admin: 05/29/25 12:15 Dose: 20 mg Documented By: VIKAS Ceftriaxone Sodium 1 gm/ (Sodium Chloride) 50 mls @ 100 mls/hr IV Q24H [facility] Last Infusion: 05/29/25 17:20 Dose: Infused Documented By: VIKAS Fluconazole 100 mg/ IV (Miscellaneous Supplies) 50 mls @ 50 mls/hr IV Q24H [facility] Last Infusion: 05/29/25 13:54 Dose: Infused Documented By: VIKAS Insulin Human Lispro (Insulin Lispro 100 Unit/Ml 3 Ml Vial) 0 unit SUBCUT QIDACHS [facility]; Protocol Last Admin: 05/30/25 07:43 Dose: Not Given Documented By: KEILA Non-Admin Reason: No Insulin Coverage Latanoprost (Latanoprost 0.005 % Ophth Doris 2.5 Ml Drops) 1 drop EYE-BOTH BEDTIME [facility] Last Admin: 05/29/25 17:58 Dose: 1 drop Documented By: VIKAS Levothyroxine Sodium (Levothyroxine Sodium 75 Mcg Tablet) 75 mcg PO DAILY@0600 [facility] Last Admin: 05/30/25 05:53 Dose: 75 mcg Documented By: CARIN Lidocaine (Lidocaine 4 % Patch Adh..Patch) 2 patch TRANSDERMA DAILY [facility]; Protocol Last Admin: 05/29/25 08:38 Dose: 2 patch Documented By: VIKAS Morphine Sulfate (Morphine Sulfate 4 Mg/Ml Cartridge) 2 mg IVPUSH Q4H PRN; Protocol PRN Reason: Pain, Severe (Pain Scale 7-10) Last Admin: 05/30/25 05:46 Dose: 2 mg Documented By: CARIN Multi-Ingred Cream/Lotion/Oil/Oint (Artificial Tears Ophth Oint 3.5 Gm Tube) 1 appl EYE-BOTH TID PRN; Protocol PRN Reason: Dry Eyes Ondansetron HCl (Ondansetron Hcl 4 Mg/2 Ml Vial) 4 mg IVPUSH Q8H PRN PRN Reason: Nausea and Vomiting Sodium Chloride (0.9 % Sodium Chloride Flush 3 Ml Syringe) 3 ml IVFLUSH QSHIFT [facility] Last Admin: 05/30/25 08:42 Dose: 3 ml Documented By: KEILA Labs 05/30/25 06:21 05/30/25 06:21 Labs: Laboratory Results - last 24 hr 05/29/25 05/29/25 05/29/25 11:41 16:07 18:07 MCV MCH MCHC RDW Plt Count MPV Absolute Nucleated RBC Nucleated RBC % (auto) PT INR VBG pH VBG pCO2 VBG pO2 VBG HCO3 VBG O2 Saturation VBG Base Excess Anion Gap Estim Creat Clear Calc Estimated GFR POC Glucose 112 64 134 H Random Glucose Calcium Total Bilirubin Direct Bilirubin AST ALT Alkaline Phosphatase Total Protein Albumin C. difficile Tox B Gene 05/29/25 05/29/25 05/29/25 18:10 19:16 20:37 MCV 94.3 D MCH 28.1 MCHC 29.8 L RDW 19.4 H Plt Count 162 MPV 11.3 Absolute Nucleated RBC 0.050 H Nucleated RBC % (auto) 0.5 H PT INR VBG pH VBG pCO2 VBG pO2 VBG HCO3 VBG O2 Saturation VBG Base Excess Anion Gap Estim Creat Clear Calc Estimated GFR POC Glucose 104 Random Glucose Calcium Total Bilirubin Direct Bilirubin AST ALT Alkaline Phosphatase Total Protein Albumin C. difficile Tox B Gene NEGATIVE 05/30/25 05/30/25 05/30/25 03:09 03:18 03:46 MCV MCH MCHC RDW Plt Count MPV Absolute Nucleated RBC Nucleated RBC % (auto) PT INR VBG pH 7.37 VBG pCO2 38 VBG pO2 38 VBG HCO3 22 VBG O2 Saturation Not Reportable VBG Base Excess -2.0 Anion Gap Estim Creat Clear Calc Estimated GFR POC Glucose 36 L* 59 L* Random Glucose Calcium Total Bilirubin Direct Bilirubin AST ALT Alkaline Phosphatase Total Protein Albumin C. difficile Tox B Gene 05/30/25 05/30/25 05/30/25 03:49 06:21 07:13 MCV 89.5 MCH 27.9 MCHC 31.2 RDW 19.0 H Plt Count 168 MPV 11.0 Absolute Nucleated RBC 0.030 H Nucleated RBC % (auto) 0.3 H PT 75.8 H INR 6.5 H* VBG pH VBG pCO2 VBG pO2 VBG HCO3 VBG O2 Saturation VBG Base Excess Anion Gap 21 H Estim Creat Clear Calc 9.4 Estimated GFR 8 POC Glucose 168 H 40 L* Random Glucose 92 Calcium 9.1 Total Bilirubin 1.6 H Direct Bilirubin 1.1 H AST 62 H ALT 18 Alkaline Phosphatase 198 H Total Protein 6.2 L Albumin 4.1 C. difficile Tox B Gene 05/30/25 05/30/25 07:15 07:38 MCV MCH MCHC RDW Plt Count MPV Absolute Nucleated RBC Nucleated RBC % (auto) PT INR VBG pH VBG pCO2 VBG pO2 VBG HCO3 VBG O2 Saturation VBG Base Excess Anion Gap Estim Creat Clear Calc Estimated GFR POC Glucose 68 115 Random Glucose Calcium Total Bilirubin Direct Bilirubin AST ALT Alkaline Phosphatase Total Protein Albumin C. difficile Tox B Gene Microbiology Microbiology Results: Microbiology 05/25/25 20:59 Urine Culture - Final Urine clean catch Shlomo glabrata Assessment and Plan (1) Supratherapeutic INR: Status: Acute Plan 65 year old women initially admitted to ICU for Shortness of breath and feeling unwell overall. She was hypotensive in the ED and transferred to the ICU for vasopressor support due to poor initial response to IV fluids. Acute respiratory failure, unspecified 05/28 cxr neg for consolidation but showing small effusion to right side ? [place] [address], cardiology consultation pending IV lasix 20 mg daily on hold for now continue supplemental oxygen to keep oxygen saturation > 90% Has been having episodes of hypoxia overnight, had been on high flow but patient unable to tolerate but no obvious consolidation on imaging GI bleed, likely upper GI bleed BRBPR no colitis on abd ct, negative cdiff stable HH at this time, no need for blood transfusion GI following follow CBC daily Supratherapeutic INR down to 6.5 today 10mg IV vitamin K x1 05/29, 5mg IV today monitor for further signs of bleeding Raynaud's has very poor peripheral circulation oxygen saturation not reading peripheral digits correctly follow clinical signs of hypoxia can use forehead reader for better results check ABG if hypoxia or hypercarbia suspected UTI urine cx with shlomo continue Rocephin and Fluconazole PREM on CKD 2b Creat 5.42 today nephrology following>likely from tubular injury, no indication for dialysis at this time Follow BMP and avoid nephrotoxic agents Bilateral LE edema Neg DVT studies DM2 ss, ada diet PAF eliquis on hold due to GI bleed Hx of PE eliquis on hold due to GI bleed Hx of tachy-dalia syndrome Pacemaker DVT prophylaxis with SCD boots due to anemia DNR Quality Stroke Does the patient have a stroke diagnosis?: No VTE Prior VTE?: No VTE Risk Level:: Medical - moderate - high VTE Device Contraindication: Treatment Not Indicated VTE Drug Contraindication: N/A - Med Ordered
[2025-05-30] MEDS: Brimonidine Tartrate 0.2% Oph 5 ML BOTTLE 1 DROP EYE-BOTH ×2 (09:57→21:19)
[2025-05-30] MEDS: Dorzolamide HCl 2 % Ophth Sol 10 ML DRPBTL 1 DROP EYE-BOTH ×2 (09:57→21:19)
[2025-05-30] MEDS: Lidocaine 4 % Patch ADH..PATCH 2 PATCH TRANSDERMA (09:57)
[2025-05-30] MEDS: Latanoprost 0.005 % Ophth Sol 2.5 ML DROPS 1 DROP EYE-BOTH (09:57)
--- NOTE | 2025-05-30 10:38 | MHC.CM.PN ---
Per [facility]OUNDS, Patient is not yet medically cleared for dc (ECHO & Cardiology Consult pending and ? of home with [facility]).
[2025-05-30 11:04] LABS: Glucose, Whole Blood 69 mg/dL (60-115)
[2025-05-30 11:27] LABS: Glucose, Whole Blood 95 mg/dL (60-115)
--- NOTE | 2025-05-30 11:48 | MHC.CLN ---
F/U PT WITH INCREASED NUTRITION RISK R/T PRESSURE INJURY PO INTAKE POOR DIET RX: GROUND DIET RECEIVING ENSURE MAX BID TO PROMOTE WOUND HEALING SUPP PROVIDES 300KCALS, 60G PROTEIN MONITOR PO AND ENCOURAGE SUPPLEMENTS
--- NOTE | 2025-05-30 13:20 | P.CONCA_ITS ---
History of Present Illness History of Present Illness Date of Service: 05/30/25 Requesting physician: Eliza Hebert Consult reason: congestive heart failure Chief complaint: PREM/ hypotension Narrative: I was consulted to see Trish in cardiology consultation today. I had seen in his last time when she was admitted with decompensated congestive heart failure at which time she had also had tachy-dalia syndrome and underwent a dual-chamber pacemaker placement, although this was unsuccessful and atrial lead could not be placed because of significant tricuspid regurgitation and the ventricular lead was placed. Since then she has not had any significant issues with into the hospital with shortness of breath. She has multiple chronic medical condition with multiple sclerosis spasm disorder remained functionality, CAD with LAD stenting 2013 chronic kidney disease pulmonary embolism, paroxysmal atrial fibrillation with tachy-dalia syndrome status post pacemaker placement, CVA, type 2 diabetes and chronic pain syndrome. Patient came in to the hospital with hypotension and with elevated serum potassium of 5.9 with creatinine of 5.48 with lactic acid for 5.9. [place] [id number]. Her troponins were elevated but flat. In his ED patient received 1.5 L of fluid and IV ceftriaxone. Subsequently admitted to ICU and transferred down to the floor 2 days ago. Cardiology consult was sought for unclear reason question patient has fluid overload and she has been only getting 20 mg of IV Lasix. Her creatinine is still elevated. While I was talking to her her niece was at bedside and she continued to have intermittent episodes of going off to sleep and being drowsy. Patient in his fluid overloaded. A blood pressure has been stable. Heart rate is in his 50s with junctional rhythm. Patient is still requires oxygen. Her creatinine has remained significantly elevated at 5.6. She overall has had a poor urine output over the last several days with less than 500 mL of urine output. Patient denies shortness of breath or chest pain. Review of Systems 2 Constitutional: Constitutional: Reports fatigue, Reports lethargy, Reports malaise and Reports other (Somnolent) Cardiovascular: Cardiovascular: Denies chest pain, Denies syncope, Denies rapid heart rate, Reports leg edema, Denies lightheadedness, Denies palpitations and Denies dyspnea Respiratory: Respiratory: Reports no additional respiratory complaints and Denies dyspnea Gastrointestinal: Gastrointestinal: Reports bloating Genitourinary: Genitourinary: Reports no additional female genitourinary complaints Integumentary/Breasts: Skin/Breast: Reports system reviewed and no additional complaints, except as docu Neurologic: Denies syncope Endocrine: Endocrine: Reports fatigue and Denies palpitations PMFSH Past Medical History Medical History Atrial fibrillation Diabetes mellitus Anemia CAD (coronary artery disease) Heart valve regurgitation Gitelman syndrome Polycystic ovarian syndrome Myocardial infarction Sleep apnea Fibromyalgia COPD (chronic obstructive pulmonary disease) Mild asthma Orthostatic hypotension Raynaud's disease Pulmonary embolism Coronary atherosclerosis HTN (hypertension) Neuropathy Multiple sclerosis Chronic pain syndrome PTSD (post-traumatic stress disorder) Opioid dependence Depression Hypercalcemia Elevated cholesterol Type 2 diabetes mellitus Thyroid nodule Hypothyroid Surgical History Surgical History Hx of reduction mammoplasty Hx of tubal ligation Hx of hernia repair History of rectal surgery History of colon resection S/P panniculectomy History of lobectomy of thyroid Hx of hysterectomy Hx of appendectomy Hx of dilation and curettage Hx of heart artery stent Social History Social History Household Members: Children Household Members Other:: Jony Bah Housing: Apartment Are you a primary cattle care worker to a significant other at home: No Do you presently have visiting nurse or other home services: Yes Patient Tobacco Use Status: Former Tobacco user Tobacco use type: Cigarette Years Smoked: 40 Second Hand Smoke Exposure: No Currently Displaying Signs/Symptoms of Drug Intoxication Withdrawal: No Have you been hit, kicked, punched, or otherwise hurt by someone within the past year? If so, by whom?: No Do you feel safe in your current relationship?: No Current Relationship Is there a partner from a previous relationship who is making you feel unsafe now?: No Are you made to feel afraid or neglected: No Yazdanism Healthcare Practices: Non-denomenational Advance Directives: No Advance Directives Information Provided: Yes Do you have a plan to hurt others: No Plan Recently lost weight without trying: Unsure Eating poorly because of decreased appetite: Yes Nutrition Risks: Poor intake 0-25% >4 days Patient : No : No Poor oral hygiene: No service: No Meds Allergies Allergy/AdvReac Type Severity Reaction Status Date / Time diphenhydramine (From Allergy Severe Anaphylaxis Verified 05/25/25 14:38 Benadryl) Penicillins Allergy Severe Anaphylaxis Verified 05/25/25 14:38 Sulfa (Sulfonamide Allergy Severe Anaphylaxis Verified 05/25/25 14:38 Antibiotics) clarithromycin Allergy Intermediate Shortness Verified 05/25/25 14:38 of Breath gabapentin Allergy Intermediate Confusion Verified 05/25/25 14:38 hydrochlorothiazide (From Allergy Intermediate Shortness Verified 05/25/25 14:38 Hyzaar) of Breath levofloxacin (From Levaquin) Allergy Intermediate dizziness/h Verified 05/25/25 14:38 eadache/ulices sea losartan (From Cozaar) Allergy Intermediate Shortness Verified 05/25/25 14:38 of Breath metformin Allergy Intermediate strange Verified 05/25/25 14:38 feeling amoxicillin (From Augmentin) Allergy Unknown Unknown Verified 05/03/25 14:31 clavulanic acid (From Allergy Unknown Unknown Verified 05/03/25 14:31 Augmentin) duloxetine (From Cymbalta) Allergy Unknown Unknown Verified 05/03/25 14:31 fluoxetine Allergy Unknown Unknown Verified 05/03/25 14:31 NSAIDS (Non-Steroidal Allergy Unknown Unknown Verified 05/03/25 14:31 Anti-Inflamma pregabalin AdvReac Intermediate Dizziness Verified 05/03/25 14:31 doxycycline AdvReac Mild Gastrointestinal Verified 05/03/25 14:31 Upset Active Medications: Current Medications Amantadine HCl (Amantadine Hcl 100 Mg Capsule) 100 mg PO BID [facility] Last Admin: 05/30/25 09:58 Dose: 100 mg Brimonidine Tartrate (Brimonidine Tartrate 0.2% Oph 5 Ml Bottle) 1 drop EYE- BOTH BID [facility] Last Admin: 05/30/25 09:57 Dose: 1 drop Dextrose (Dextrose 50 % 25 Gm/50 Ml Syringe) 25 gm IVPUSH Q15M PRN; Protocol PRN Reason: per Hypoglycemia Standing Ord. Last Admin: 05/30/25 07:16 Dose: 25 gm Diazepam (Diazepam 5 Mg Tablet) 5 mg PO TID PRN PRN Reason: anxiety/restlessness Last Admin: 05/29/25 21:39 Dose: 5 mg Dorzolamide HCl (Dorzolamide Hcl 2 % Ophth Doris 10 Ml Drpbtl) 1 drop EYE-BOTH BID [facility] Last Admin: 05/30/25 09:57 Dose: 1 drop Fluconazole (Fluconazole 100 Mg Tablet) 100 mg PO DAILY [facility] Last Admin: 05/30/25 12:52 Dose: 100 mg Furosemide (Furosemide 20 Mg/2 Ml Vial) 20 mg IVPUSH DAILY [facility]; Protocol On Hold: 05/30/25 06:59 Last Admin: 05/29/25 12:15 Dose: 20 mg Ceftriaxone Sodium 1 gm/ (Sodium Chloride) 50 mls @ 100 mls/hr IV Q24H [facility] Last Infusion: 05/29/25 17:20 Dose: Infused Bumetanide 25 mg/ IV (Miscellaneous Supplies) 100 mls @ 2 mls/hr IVCONT .Q24H [facility] Insulin Human Lispro (Insulin Lispro 100 Unit/Ml 3 Ml Vial) 0 unit SUBCUT QIDACHS [facility]; Protocol Last Admin: 05/30/25 11:32 Dose: Not Given Latanoprost (Latanoprost 0.005 % Ophth Doris 2.5 Ml Drops) 1 drop EYE-BOTH BEDTIME [facility] Last Admin: 05/30/25 09:57 Dose: 1 drop Levothyroxine Sodium (Levothyroxine Sodium 75 Mcg Tablet) 75 mcg PO DAILY@0600 [facility] Last Admin: 05/30/25 05:53 Dose: 75 mcg Lidocaine (Lidocaine 4 % Patch Adh..Patch) 2 patch TRANSDERMA DAILY [facility]; Protocol Last Admin: 05/30/25 09:57 Dose: 2 patch Morphine Sulfate (Morphine Sulfate 4 Mg/Ml Cartridge) 2 mg IVPUSH Q4H PRN; Protocol PRN Reason: Pain, Severe (Pain Scale 7-10) Last Admin: 05/30/25 05:46 Dose: 2 mg Multi-Ingred Cream/Lotion/Oil/Oint (Artificial Tears Ophth Oint 3.5 Gm Tube) 1 appl EYE-BOTH TID PRN; Protocol PRN Reason: Dry Eyes Ondansetron HCl (Ondansetron Hcl 4 Mg/2 Ml Vial) 4 mg IVPUSH Q8H PRN PRN Reason: Nausea and Vomiting Sodium Chloride (0.9 % Sodium Chloride Flush 3 Ml Syringe) 3 ml IVFLUSH QSHIFT [facility] Last Admin: 05/30/25 08:42 Dose: 3 ml Home Medications ?Medication ?Instructions ?Recorded ?Confirmed ?Last Taken ?Type amantadine HCl 100 mg capsule 100 mg PO BID 12/13/22 1 07/26/24 Unknown History apixaban 5 mg tablet (Eliquis) 5 mg PO BID 12/13/22 Unknown History brimonidine 0.2 % eye drops 1 drp ophthalmic (eye) BID 12/13/22 05/25/25 Unknown History dorzolamide 2 % eye drops 1 drp ophthalmic (eye) BID 0 12/13/22 05/25/25 Unknown History montelukast 10 mg tablet 10 mg PO DAILY 12/13/2205/09 Unknown History sildenafil (pulm.hypertension) 20 20 mg PO TID 3 05/25/25 Unknown History mg tablet albuterol sulfate 2.5 mg/3 mL 2.5 mg inhalation Q6H OK N Wheezing 04/17/25 05/25/25 Unknown History (0.083 %) solution for nebulization aspirin 81 mg chewable tablet 81 mg PO DAILY 04/17/25 05/25/25 Unknown History camphor-menthol 0.5 %-0.5 % lotion 1 appl topical BID PRN Itching 04/17/25 05/25/25 Unknown History dextroamphetamine-amphetamine 30 30 mg PO DAILY 05/25/25 Unknown History mg tablet (Adderall) diazepam 5 mg tablet 5 mg PO Q8H PRN Anxiety/spas m 04/17/25 05/25/25 Unknown History diclofenac sodium 1 % topical gel 2 g topical QID 03/0305/25/25 Unknown History dulaglutide 3 mg/0.5 mL 3 mg subcut TU@0904/17/25 05/25/25 Unknown History subcutaneous pen injector (Trulicity) latanoprost 0.005 % eye drops 1 drp ophthalmic (eye) B EDTIME 04/17/25 05/25/25 Unknown History levothyroxine 75 mcg tablet 75 mcg PO DAILY@0600 04/1705/25/25 Unknown History lidocaine 4 % topical patch 2 patch topical DAILY 03/0305/25/25 Unknown History multivitamin with minerals 1 tab PO DAILY 04/17/25 Unknown History sodium chloride 7 % for 1 inh inhalation BID 5 05/25/25 Unknown History nebulization thiamine HCl (vitamin B1) 100 mg 100 mg PO DAILY 04/1705/25/25 Unknown History tablet furosemide 40 mg tablet (Lasix) 40 mg PO BID@0900,1700 05/25/25 05/25/25 Unknown History pantoprazole 20 mg tablet,delayed 20 mg PO DAILY@0630 PRN Gastric 05/25/25 05/25/25 Unknown History release Reflux Physical Exam 2 Vital Signs: Vital Signs: Last Vital Signs Temp 97.1 F 05/30/25 10:42 Pulse 50 05/30/25 10:42 Resp 14 05/30/25 10:42 BP 108/60 05/30/25 10:42 Pulse Ox 96 05/30/25 10:42 O2 Del Method Nasal Cannula 05/30/25 10:42 O2 Flow Rate 3 05/30/25 10:42 FiO2 35 05/29/25 09:30 Oxygen Flow Rate 1 05/25/25 20:24 BMI result Body Mass Index 31.6 Const: General: cooperative, in distress mild and respiratory, ill appearing, lethargic (Arousable and responds appropriately) and other Nutritional Appearance: overweight Orientation/consciousness: lethargic (Arousable and responds appropriately) HEENT: Head: Yes normocephalic and Yes atraumatic Neck: Neck: Yes trachea midline, Yes supple and Yes JVD Resp: Effort & Inspection: decreased respiratory effort Auscultation: c rackles and diminished lung sounds Cardio: Jugular venous distension: JVD Heart sounds: S1 normal heart sound present, S2 normal heart sound present, no click, no gallops and Murmur heart sound present systolic GI: Inspection: Yes distended Auscultation: normal bowel sounds Skin: General skin exam: no rashes or lesions noted Neuro: General: moves all extremities Extrem: General: No clubbing, No cyanosis and Yes edema Objective Labs and Meds 05/30/25 06:21 05/30/25 06:21 Lab results: Laboratory Results - last 24 hr 05/29/25 05/29/25 05/29/25 16:07 18:07 18:10 WBC RBC Hgb Hct MCV MCH MCHC RDW Plt Count MPV Absolute Nucleated RBC Nucleated RBC % (auto) PT INR VBG pH VBG pCO2 VBG pO2 VBG HCO3 VBG O2 Saturation VBG Base Excess Sodium Potassium Chloride Carbon Dioxide Anion Gap BUN Creatinine Estim Creat Clear Calc Estimated GFR POC Glucose 64 134 H Random Glucose Calcium Total Bilirubin Direct Bilirubin AST ALT Alkaline Phosphatase Total Protein Albumin Stl C. cayetanensis PCR Not Detected Stool Rotavirus A PCR Not Detected Stl Adenov F 40 PCR Not Detected Stool Astrovirus (PCR) Not Detected Stool Campylobacter PCR Not Detected Stool Cryptosporidium PCR Not Detected Stl Sh Tox Pr E STEC PCR Not Detected Stool E coli O157 PCR Not applicable Stl Enterotoxigenic E PCR Not Detected Stool EPEC (PCR) Not Detected Stool EAEC (PCR) Not Detected Stl E. histolytica PCR Not Detected Stool Giardia Lamblia PCR Not Detected Stl P. shigelloides PCR Not Detected Stool Salmonella PCR Not Detected Stool Sapovirus (PCR) Not Detected Stl Shigella/EIEC PCR Not Detected St Y.enterocolitica PCR Not Detected Stool Vibrio (PCR) Not Detected Stl Vibrio cholerae PCR Not Detected Stl Norovirus GI/GII PCR Not Detected C. difficile Tox B Gene NEGATIVE 05/29/25 05/29/25 05/30/25 19:16 20:37 03:09 WBC 10.9 H RBC 3.67 L Hgb 10.3 L Hct 34.6 L D MCV 94.3 D MCH 28.1 MCHC 29.8 L RDW 19.4 H Plt Count 162 MPV 11.3 Absolute Nucleated RBC 0.050 H Nucleated RBC % (auto) 0.5 H PT INR VBG pH 7.37 VBG pCO2 38 VBG pO2 38 VBG HCO3 22 VBG O2 Saturation Not Reportable VBG Base Excess -2.0 Sodium Potassium Chloride Carbon Dioxide Anion Gap BUN Creatinine Estim Creat Clear Calc Estimated GFR POC Glucose 104 Random Glucose Calcium Total Bilirubin Direct Bilirubin AST ALT Alkaline Phosphatase Total Protein Albumin Stl C. cayetanensis PCR Stool Rotavirus A PCR Stl Adenov F PCR Stool Astrovirus (PCR) Stool Campylobacter PCR Stool Cryptosporidium PCR Stl Sh Tox Pr E STEC PCR Stool E coli O157 PCR Stl Enterotoxigenic E PCR Stool EPEC (PCR) Stool EAEC (PCR) Stl E. histolytica PCR Stool Giardia Lamblia PCR Stl P. shigelloides PCR Stool Salmonella PCR Stool Sapovirus (PCR) Stl Shigella/EIEC PCR St Y.enterocolitica PCR Stool Vibrio (PCR) Stl Vibrio cholerae PCR Stl Norovirus GI/GII PCR C. difficile Tox B Gene 05/30/25 05/30/25 05/30/25 03:18 03:46 03:49 WBC RBC Hgb Hct MCV MCH MCHC RDW Plt Count MPV Absolute Nucleated RBC Nucleated RBC % (auto) PT INR VBG pH VBG pCO2 VBG pO2 VBG HCO3 VBG O2 Saturation VBG Base Excess Sodium Potassium Chloride Carbon Dioxide Anion Gap BUN Creatinine Estim Creat Clear Calc Estimated GFR POC Glucose 36 L* 59 L* 168 H Random Glucose Calcium Total Bilirubin Direct Bilirubin AST ALT Alkaline Phosphatase Total Protein Albumin Stl C. cayetanensis PCR Stool Rotavirus A PCR Stl Adenov F 40/ PCR Stool Astrovirus (PCR) Stool Campylobacter PCR Stool Cryptosporidium PCR Stl Sh Tox Pr E STEC PCR Stool E coli O157 PCR Stl Enterotoxigenic E PCR Stool EPEC (PCR) Stool EAEC (PCR) Stl E. histolytica PCR Stool Giardia Lamblia PCR Stl P. shigelloides PCR Stool Salmonella PCR Stool Sapovirus (PCR) Stl Shigella/EIEC PCR St Y.enterocolitica PCR Stool Vibrio (PCR) Stl Vibrio cholerae PCR Stl Norovirus GI/GII PCR C. difficile Tox B Gene 05/30/25 05/30/25 05/30/25 06:21 07:13 07:15 WBC 9.2 RBC 3.15 L Hgb 8.8 L Hct 28.2 L MCV 89.5 MCH 27.9 MCHC 31.2 RDW 19.0 H Plt Count 168 MPV 11.0 Absolute Nucleated RBC 0.030 H Nucleated RBC % (auto) 0.3 H PT 75.8 H INR 6.5 H* VBG pH VBG pCO2 VBG pO2 VBG HCO3 VBG O2 Saturation VBG Base Excess Sodium 135 Potassium 4.8 Chloride 96 Carbon Dioxide 23 Anion Gap 21 H BUN 79 H Creatinine 5.60 H* Estim Creat Clear Calc 9.4 Estimated GFR 8 POC Glucose 40 L* 68 Random Glucose 92 Calcium 9.1 Total Bilirubin 1.6 H Direct Bilirubin 1.1 H AST 62 H ALT 18 Alkaline Phosphatase 198 H Total Protein 6.2 L Albumin 4.1 Stl C. cayetanensis PCR Stool Rotavirus A PCR Stl Adenov F 40/41 PCR Stool Astrovirus (PCR) Stool Campylobacter PCR Stool Cryptosporidium PCR Stl Sh Tox Pr E STEC PCR Stool E coli O157 PCR Stl Enterotoxigenic E PCR Stool EPEC (PCR) Stool EAEC (PCR) Stl E. histolytica PCR Stool Giardia Lamblia PCR Stl P. shigelloides PCR Stool Salmonella PCR Stool Sapovirus (PCR) Stl Shigella/EIEC PCR St Y.enterocolitica PCR Stool Vibrio (PCR) Stl Vibrio cholerae PCR Stl Norovirus GI/GII PCR C. difficile Tox B Gene 05/30/25 05/30/25 05/30/25 07:38 11:00 11:24 WBC RBC Hgb Hct MCV MCH MCHC RDW Plt Count MPV Absolute Nucleated RBC Nucleated RBC % (auto) PT INR VBG pH VBG pCO2 VBG pO2 VBG HCO3 VBG O2 Saturation VBG Base Excess Sodium Potassium Chloride Carbon Dioxide Anion Gap BUN Creatinine Estim Creat Clear Calc Estimated GFR POC Glucose 115 69 95 Random Glucose Calcium Total Bilirubin Direct Bilirubin AST ALT Alkaline Phosphatase Total Protein Albumin Stl C. cayetanensis PCR Stool Rotavirus A PCR Stl Adenov F 40/41 PCR Stool Astrovirus (PCR) Stool Campylobacter PCR Stool Cryptosporidium PCR Stl Sh Tox Pr E STEC PCR Stool E coli O157 PCR Stl Enterotoxigenic E PCR Stool EPEC (PCR) Stool EAEC (PCR) Stl E. histolytica PCR Stool Giardia Lamblia PCR Stl P. shigelloides PCR Stool Salmonella PCR Stool Sapovirus (PCR) Stl Shigella/EIEC PCR St Y.enterocolitica PCR Stool Vibrio (PCR) Stl Vibrio cholerae PCR Stl Norovirus GI/GII PCR C. difficile Tox B Gene Assessment and Plan (1) Decompensated heart failure: Status: Acute Decompensated congestive heart failure in this elderly woman with multiple comorbidities significant valvular abnormalities most likely related to atrial pathology related to atrial fibrillation. She has moderately severe mitral regurgitation and severe tricuspid regurgitation secondary to chamber enlargement. She has significant what appears to be fluid overload by clinical exam and findings suggestive of heart failure. She has advanced kidney disease with significantly elevated creatinine. I think attempt for fluid removal should be tried with diuretic therapy. I would suggest to start Bumex drip strict intake and output chart needs to be pursued. Continue monitor renal function as well as electrolytes and NT pro BNP. If she has poor response to diuretics consider renal replacement therapy. Overall prognosis is poor given her significant advanced right-sided heart dysfunction with significant tricuspid regurgitation which appears to be not treatable. (2) Coronary atherosclerosis: Status: Acute CAD with prior stenting, currently stable. Continue medical therapy for the same. (3) Atrial fibrillation: Status: Acute Atrial fibrillation with tachy-dalia syndrome with dual-chamber pacemaker placed last month for tachy-dalia syndrome although atrial lead could not be encouraged due to significant tricuspid regurgitation. She has a ventricular lead. Underlying intermittent junctional rhythm atrial fibrillation which is likely. Overall pursuing rhythm control approach she is going to be less likely. Currently not on anticoagulation because of advanced kidney disease and anemia. At this point time continue monitor. If renal function improved can consider oral anticoagulation therapy. Greater than 30 minutes was spent in managing his complex care. Procedures Date of Service Date of Service: 05/30/25
[2025-05-30] MEDS: Bumetanide 25 MG in Container,Empty 0 ML IVCONT (13:55)
--- NOTE | 2025-05-30 15:09 | PM.PNNEP ---
Subjective Subjective Date of Service: 05/30/25 Interval history: Creatinine stays around 5.6, patient is significantly edematous. Physical Exam Vital Signs: Vital Signs: Last Vital Signs Temp 97.1 F 05/30/25 10:42 Pulse 50 05/30/25 10:42 Resp 14 05/30/25 10:42 BP 130/76 05/30/25 13:55 Pulse Ox 96 05/30/25 10:42 O2 Del Method Nasal Cannula 05/30/25 10:42 O2 Flow Rate 3 05/30/25 10:42 FiO2 35 05/29/25 09:30 Oxygen Flow Rate 1 05/25/25 20:24 BMI result Body Mass Index 31.6 General: not in any acute distress, ill appearing Nutritional Appearance: well nourished and overweight Eyes: appearance normal, both eyes and all related structures; Alignment and Position: alignment normal and position normal Neck: No lymphadenopathy, no thyromegaly Resp: bilateral air entry equal, no added sounds present Cardio: Regular rate, regular rhythm; Heart sounds: S1 normal heart sound present and S2 normal heart sound present GI: soft, nontender, no guarding, no hepatosplenomegaly : bladder normal to inspection, bladder normal to palpation, no renal angle tenderness Skin: no rashes or lesions noted and elasticity normal Neuro: alert, oriented x 3, moves all extremities, asterixis present Objective Data Labs 05/30/25 06:21 05/30/25 06:21 Labs: Laboratory Results - last 24 hr 05/29/25 05/29/25 05/29/25 16:07 18:07 18:10 WBC RBC Hgb Hct MCV MCH MCHC RDW Plt Count MPV Absolute Nucleated RBC Nucleated RBC % (auto) PT INR VBG pH VBG pCO2 VBG pO2 VBG HCO3 VBG O2 Saturation VBG Base Excess Sodium Potassium Chloride Carbon Dioxide Anion Gap BUN Creatinine Estim Creat Clear Calc Estimated GFR POC Glucose 64 134 H Random Glucose Calcium Total Bilirubin Direct Bilirubin AST ALT Alkaline Phosphatase Total Protein Albumin Stl C. cayetanensis PCR Not Detected Stool Rotavirus A PCR Not Detected Stl Adenov F 40/41 PCR Not Detected Stool Astrovirus (PCR) Not Detected Stool Campylobacter PCR Not Detected Stool Cryptosporidium PCR Not Detected Stl Sh Tox Pr E STEC PCR Not Detected Stool E coli O157 PCR Not applicable Stl Enterotoxigenic E PCR Not Detected Stool EPEC (PCR) Not Detected Stool EAEC (PCR) Not Detected Stl E. histolytica PCR Not Detected Stool Giardia Lamblia PCR Not Detected Stl P. shigelloides PCR Not Detected Stool Salmonella PCR Not Detected Stool Sapovirus (PCR) Not Detected Stl Shigella/EIEC PCR Not Detected St Y.enterocolitica PCR Not Detected Stool Vibrio (PCR) Not Detected Stl Vibrio cholerae PCR Not Detected Stl Norovirus GI/GII PCR Not Detected C. difficile Tox B Gene NEGATIVE 05/29/25 05/29/25 05/30/25 19:16 20:37 03:09 WBC 10.9 H RBC 3.67 L Hgb 10.3 L Hct 34.6 L D MCV 94.3 D MCH 28.1 MCHC 29.8 L RDW 19.4 H Plt Count 162 MPV 11.3 Absolute Nucleated RBC 0.050 H Nucleated RBC % (auto) 0.5 H PT INR VBG pH 7.37 VBG pCO2 38 VBG pO2 38 VBG HCO3 22 VBG O2 Saturation Not Reportable VBG Base Excess -2.0 Sodium Potassium Chloride Carbon Dioxide Anion Gap BUN Creatinine Estim Creat Clear Calc Estimated GFR POC Glucose 104 Random Glucose Calcium Total Bilirubin Direct Bilirubin AST ALT Alkaline Phosphatase Total Protein Albumin Stl C. cayetanensis PCR Stool Rotavirus A PCR Stl Adenov F 40/41 PCR Stool Astrovirus (PCR) Stool Campylobacter PCR Stool Cryptosporidium PCR Stl Sh Tox Pr E STEC PCR Stool E coli O157 PCR Stl Enterotoxigenic E PCR Stool EPEC (PCR) Stool EAEC (PCR) Stl E. histolytica PCR Stool Giardia Lamblia PCR Stl P. shigelloides PCR Stool Salmonella PCR Stool Sapovirus (PCR) Stl Shigella/EIEC PCR St Y.enterocolitica PCR Stool Vibrio (PCR) Stl Vibrio cholerae PCR Stl Norovirus GI/GII PCR C. difficile Tox B Gene 05/30/25 05/30/25 05/30/25 03:18 03:46 03:49 WBC RBC Hgb Hct MCV MCH MCHC RDW Plt Count MPV Absolute Nucleated RBC Nucleated RBC % (auto) PT INR VBG pH VBG pCO2 VBG pO2 VBG HCO3 VBG O2 Saturation VBG Base Excess Sodium Potassium Chloride Carbon Dioxide Anion Gap BUN Creatinine Estim Creat Clear Calc Estimated GFR POC Glucose 36 L* 59 L* 168 H Random Glucose Calcium Total Bilirubin Direct Bilirubin AST ALT Alkaline Phosphatase Total Protein Albumin Stl C. cayetanensis PCR Stool Rotavirus A PCR Stl Adenov F PCR Stool Astrovirus (PCR) Stool Campylobacter PCR Stool Cryptosporidium PCR Stl Sh Tox Pr E STEC PCR Stool E coli O157 PCR Stl Enterotoxigenic E PCR Stool EPEC (PCR) Stool EAEC (PCR) Stl E. histolytica PCR Stool Giardia Lamblia PCR Stl P. shigelloides PCR Stool Salmonella PCR Stool Sapovirus (PCR) Stl Shigella/EIEC PCR St Y.enterocolitica PCR Stool Vibrio (PCR) Stl Vibrio cholerae PCR Stl Norovirus GI/GII PCR C. difficile Tox B Gene 05/30/25 05/30/25 05/30/25 06:21 07:13 07:15 WBC 9.2 RBC 3.15 L Hgb 8.8 L Hct 28.2 L MCV 89.5 MCH 27.9 MCHC 31.2 RDW 19.0 H Plt Count 168 MPV 11.0 Absolute Nucleated RBC 0.030 H Nucleated RBC % (auto) 0.3 H PT 75.8 H INR 6.5 H* VBG pH VBG pCO2 VBG pO2 VBG HCO3 VBG O2 Saturation VBG Base Excess Sodium 135 Potassium 4.8 Chloride 96 Carbon Dioxide 23 Anion Gap 21 H BUN 79 H Creatinine 5.60 H* Estim Creat Clear Calc 9.4 Estimated GFR 8 POC Glucose 40 L* 68 Random Glucose 92 Calcium 9.1 Total Bilirubin 1.6 H Direct Bilirubin 1.1 H AST 62 H ALT 18 Alkaline Phosphatase 198 H Total Protein 6.2 L Albumin 4.1 Stl C. cayetanensis PCR Stool Rotavirus A PCR Stl Adenov F PCR Stool Astrovirus (PCR) Stool Campylobacter PCR Stool Cryptosporidium PCR Stl Sh Tox Pr E STEC PCR Stool E coli O157 PCR Stl Enterotoxigenic E PCR Stool EPEC (PCR) Stool EAEC (PCR) Stl E. histolytica PCR Stool Giardia Lamblia PCR Stl P. shigelloides PCR Stool Salmonella PCR Stool Sapovirus (PCR) Stl Shigella/EIEC PCR St Y.enterocolitica PCR Stool Vibrio (PCR) Stl Vibrio cholerae PCR Stl Norovirus GI/GII PCR C. difficile Tox B Gene 05/30/25 05/30/25 05/30/25 07:38 11:00 11:24 WBC RBC Hgb Hct MCV MCH MCHC RDW Plt Count MPV Absolute Nucleated RBC Nucleated RBC % (auto) PT INR VBG pH VBG pCO2 VBG pO2 VBG HCO3 VBG O2 Saturation VBG Base Excess Sodium Potassium Chloride Carbon Dioxide Anion Gap BUN Creatinine Estim Creat Clear Calc Estimated GFR POC Glucose 115 69 95 Random Glucose Calcium Total Bilirubin Direct Bilirubin AST ALT Alkaline Phosphatase Total Protein Albumin Stl C. cayetanensis PCR Stool Rotavirus A PCR Stl Adenov F 40/41 PCR Stool Astrovirus (PCR) Stool Campylobacter PCR Stool Cryptosporidium PCR Stl Sh Tox Pr E STEC PCR Stool E coli O157 PCR Stl Enterotoxigenic E PCR Stool EPEC (PCR) Stool EAEC (PCR) Stl E. histolytica PCR Stool Giardia Lamblia PCR Stl P. shigelloides PCR Stool Salmonella PCR Stool Sapovirus (PCR) Stl Shigella/EIEC PCR St Y.enterocolitica PCR Stool Vibrio (PCR) Stl Vibrio cholerae PCR Stl Norovirus GI/GII PCR C. difficile Tox B Gene Microbiology Microbiology Results: Microbiology 05/25/25 20:59 Urine clean catch Urine Culture - Final Geovanna glabrata 05/25/25 17:46 Blood - Venous Blood Culture - Preliminary No growth after 48 hours. 05/25/25 17:36 Blood - Venous Blood Culture - Preliminary No growth after 48 hours. Procedures Date of Service Date of Service: 05/30/25 Assessment & Plan Assessment and plan (1) PREM (acute kidney injury): Status: Acute (2) Multiple sclerosis: Status: Acute Plan 65-year-old lady with underlying multiple sclerosis with spasms, CAD status post LAD stenting, subdural hematoma, chronic kidney disorder, pulmonary emboli, AFib on Eliquis with tachy-dalia syndrome status post pacemaker, CVA, type 2 diabetes mellitus, Raynaud's admitted on 05/25/2025 with malaise, acute kidney injury in the setting of hypotension needing vasopressor support Apparently patient has been hospitalized since the beginning of March initially at [facility] later transferred to [facility] from there was discharged to a rehab, and later at [facility]. This time admitted due to PREM in the setting of septic shock possibly secondary to acute tubular necrosis. CT abdomen and pelvis showed normal size kidneys, no obstruction. Urinalysis showing 3+ blood, 3+ protein, greater than 20 RBC, greater than 50 WBCs possibly due to UTI,UPCR less than 1 g. Her creatinine has been staying around mid 5s since 05/25/2025, oliguric, has some signs of uremia. Family is confused towards the decision of going ahead with dialysis or to go on comfort care. Patient he is hospitalized for over 3 months now for multiple different reasons, so the concerns of long-term goals are understandable. We will consult hospice for further helping family with making a decision. I spent over 60 minutes today in 2 different settings, explaining her current condition prognosis, treatment option to the family. Time Spent With Patient Time: Total time managing care of this patient today ____ minutes. Progress Note: Quality Stroke Does the patient have a stroke diagnosis?: No
--- NOTE | 2025-05-30 16:18 | MHC.CM.PN ---
PER MD ORDERS, HOSPICE CONSULT PLACED. PATIENT IS CURRENTLY ACTIVE WITH [facility]. THIS CM MET WITH PATIENT AND HER FAMILY PRESENT AT BEDSIDE TO DISCUSS, THEY WOULD LIKE TO MEET WITH HOSPICE TOGETHER. HOSPICE INFORMATIONAL REQUESTED, AWAITING AGENCY RESPONSE.
[2025-05-30 16:32] LABS: Glucose, Whole Blood 95 mg/dL (60-115)
[2025-05-30 19:08] LABS: Glucose, Whole Blood 75 mg/dL (60-115)
[2025-05-30 21:05] LABS: Glucose, Whole Blood 56 mg/dL (60-115)
[2025-05-30 21:27] LABS: Glucose, Whole Blood 190 mg/dL (60-115)
[2025-05-31 03:30] VITALS: BP 160/72; PULSE 50; RESP 16; TEMP 36.2; O2SAT 91
[2025-05-31 06:00] VITALS: BMI 31.6
[2025-05-31 06:33] LABS: Hematocrit 26.8 % (37.0-47.0); Hemoglobin 8.4 g/dl (12.0-16.0); Mean Corpuscular HGB Conc 31.3 g/dl (31.0-35.0); Mean Corpuscular Hemoglobin 27.5 pg (27.0-33.0); Mean Corpuscular Volume 87.9 fL (80.0-98.0); NRBC Abs Auto 0.000 X10*3/uL (0.0-0.012); NRBC Pct Auto 0.0 /100WBC (0.0-0.2); Platelet Count 165 X10*3/uL (160-400); Red Blood Count 3.05 X10*6/uL (4.20-5.50); White Blood Count 8.8 X10*3/uL (4.8-10.8)
[2025-05-31 06:50] LABS: Anion Gap 21 (12-20); Blood Urea Nitrogen 86 mg/dL (9-16); Calcium 9.2 mg/dL (8.4-10.2); Carbon Dioxide 23 mmol/L (22-29); Chloride 100 mmol/L (96-108); Creatinine Clr Calc Pharmacy 9.2; Estimated Glomerular Filt Rate 7; Potassium 5.0 mmol/L (3.3-5.1); Sodium 139 mmol/L (135-145)
[2025-05-31 07:00] LABS: INTERNATIONAL NORM RATIO 4.5 (0.9-1.1); Prothrombin Time 53.0 SEC (11.2-13.5)
[2025-05-31 07:15] VITALS: BP 110/60; PULSE 50; RESP 16; TEMP 36.4; O2SAT 92
[2025-05-31 07:15] LABS: Glucose, Whole Blood 144 mg/dL (60-115)
[2025-05-31 07:56] LABS: Glucose, Whole Blood 54 mg/dL (60-115)
[2025-05-31] MEDS: 0.9 % Sodium Chloride Flush 3 ML SYRINGE IVFLUSH ×2 (08:04→15:33)
[2025-05-31] MEDS: Lidocaine 4 % Patch ADH..PATCH 2 PATCH TRANSDERMA (08:04)
[2025-05-31] MEDS: Brimonidine Tartrate 0.2% Oph 5 ML BOTTLE 1 DROP EYE-BOTH ×2 (08:13→21:14)
[2025-05-31] MEDS: Dorzolamide HCl 2 % Ophth Sol 10 ML DRPBTL 1 DROP EYE-BOTH ×2 (08:13→21:14)
--- NOTE | 2025-05-31 08:53 | P.PNIM_ITS ---
Subjective Subjective Date of Service: 05/31/25 Review of Systems Follow up GI bleed, acute respiratory failure Continues to have low oxygen saturation on peripheral digits and forehead monitor but clinically does not look hypoxic Continues to look weak and debilitated plan for dialysis catheter placement tomorrow Physical Exam 2 Exam: Exam: Appearing in no acute distress lung sounds are clear to auscultation heart regular rate rhythm, clear S1, S2 positive bowel sounds, abdomen is soft, nontender neuro patient is alert x3, no focal deficits Vital Signs: Vital Signs: Last Vital Signs Temp 97.6 F 05/31/25 07:15 Pulse 50 05/31/25 07:15 Resp 16 05/31/25 07:15 BP 110/60 05/31/25 07:15 Pulse Ox 92 05/31/25 07:15 O2 Del Method Nasal Cannula 05/31/25 07:15 O2 Flow Rate 2 05/31/25 07:15 FiO2 35 05/29/25 09:30 Oxygen Flow Rate 1 05/25/25 20:24 BMI result Body Mass Index 31.6 Objective Data Active Medications Amantadine HCl (Amantadine Hcl 100 Mg Capsule) 100 mg PO BID [facility] Last Admin: 05/31/25 08:04 Dose: 100 mg Documented By: SAL Brimonidine Tartrate (Brimonidine Tartrate 0.2% Oph 5 Ml Bottle) 1 drop EYE- BOTH BID [facility] Last Admin: 05/31/25 08:13 Dose: 1 drop Documented By: SAL Dextrose (Dextrose 50 % 25 Gm/50 Ml Syringe) 25 gm IVPUSH Q15M PRN; Protocol PRN Reason: per Hypoglycemia Standing Ord. Last Admin: 05/31/25 08:04 Dose: 25 gm Documented By: SAL Diazepam (Diazepam 5 Mg Tablet) 5 mg PO TID PRN PRN Reason: anxiety/restlessness Last Admin: 05/30/25 21:11 Dose: 5 mg Documented By: SANDRA Dorzolamide HCl (Dorzolamide Hcl 2 % Ophth Doris 10 Ml Drpbtl) 1 drop EYE-BOTH BID [facility] Last Admin: 05/31/25 08:13 Dose: 1 drop Documented By: SAL Fluconazole (Fluconazole 100 Mg Tablet) 100 mg PO DAILY [facility] Last Admin: 05/31/25 08:04 Dose: 100 mg Documented By: SAL Ceftriaxone Sodium 1 gm/ (Sodium Chloride) 50 mls @ 100 mls/hr IV Q24H [facility] Last Infusion: 05/30/25 17:51 Dose: Infused Documented By: KEILA Bumetanide 25 mg/ IV (Miscellaneous Supplies) 100 mls @ 2 mls/hr IVCONT .Q24H [facility] Last Admin: 05/30/25 13:55 Dose: 0.5 mg/hr, 2 mls/hr Documented By: KEILA Phytonadione 5 mg/ Sodium (Chloride) 50.5 mls @ 50.5 mls/hr IV ONCE ONE Stop: 05/31/25 09:41 Insulin Human Lispro (Insulin Lispro 100 Unit/Ml 3 Ml Vial) 0 unit SUBCUT QIDACHS [facility]; Protocol Last Admin: 05/31/25 07:41 Dose: Not Given Documented By: SAL Non-Admin Reason: NPO Latanoprost (Latanoprost 0.005 % Ophth Doris 2.5 Ml Drops) 1 drop EYE-BOTH BEDTIME [facility] Last Admin: 05/30/25 09:57 Dose: 1 drop Documented By: KEILA Levothyroxine Sodium (Levothyroxine Sodium 75 Mcg Tablet) 75 mcg PO DAILY@0600 [facility] Last Admin: 05/31/25 05:47 Dose: 75 mcg Documented By: SANDRA Lidocaine (Lidocaine 4 % Patch Adh..Patch) 2 patch TRANSDERMA DAILY [facility]; Protocol Last Admin: 05/31/25 08:04 Dose: 2 patch Documented By: SAL Morphine Sulfate (Morphine Sulfate 4 Mg/Ml Cartridge) 2 mg IVPUSH Q4H PRN; Protocol PRN Reason: Pain, Severe (Pain Scale 7-10) Last Admin: 05/30/25 21:11 Dose: 2 mg Documented By: SANDRA Multi-Ingred Cream/Lotion/Oil/Oint (Artificial Tears Ophth Oint 3.5 Gm Tube) 1 appl EYE-BOTH TID PRN; Protocol PRN Reason: Dry Eyes Ondansetron HCl (Ondansetron Hcl 4 Mg/2 Ml Vial) 4 mg IVPUSH Q8H PRN PRN Reason: Nausea and Vomiting Sodium Chloride (0.9 % Sodium Chloride Flush 3 Ml Syringe) 3 ml IVFLUSH QSHIFT [facility] Last Admin: 05/31/25 08:04 Dose: 3 ml Documented By: SAL Labs 05/31/25 06:13 05/31/25 06:13 Labs: Laboratory Results - last 24 hr 05/29/25 05/30/25 05/30/25 18:10 11:00 11:24 MCV MCH MCHC RDW Plt Count MPV Absolute Nucleated RBC Nucleated RBC % (auto) PT INR Anion Gap Estim Creat Clear Calc Estimated GFR POC Glucose 69 95 Random Glucose Calcium Stl C. cayetanensis PCR Not Detected Stool Rotavirus A PCR Not Detected Stl Adenov F 40/41 PCR Not Detected Stool Astrovirus (PCR) Not Detected Stool Campylobacter PCR Not Detected Stool Cryptosporidium PCR Not Detected Stl Sh Tox Pr E STEC PCR Not Detected Stool E coli O157 PCR Not applicable Stl Enterotoxigenic E PCR Not Detected Stool EPEC (PCR) Not Detected Stool EAEC (PCR) Not Detected Stl E. histolytica PCR Not Detected Stool Giardia Lamblia PCR Not Detected Stl P. shigelloides PCR Not Detected Stool Salmonella PCR Not Detected Stool Sapovirus (PCR) Not Detected Stl Shigella/EIEC PCR Not Detected St Y.enterocolitica PCR Not Detected Stool Vibrio (PCR) Not Detected Stl Vibrio cholerae PCR Not Detected Stl Norovirus GI/GII PCR Not Detected 05/30/25 05/30/25 05/30/25 16:16 19:02 21:01 MCV MCH MCHC RDW Plt Count MPV Absolute Nucleated RBC Nucleated RBC % (auto) PT INR Anion Gap Estim Creat Clear Calc Estimated GFR POC Glucose 95 75 56 L* Random Glucose Calcium Stl C. cayetanensis PCR Stool Rotavirus A PCR Stl Adenov F 40/41 PCR Stool Astrovirus (PCR) Stool Campylobacter PCR Stool Cryptosporidium PCR Stl Sh Tox Pr E STEC PCR Stool E coli O157 PCR Stl Enterotoxigenic E PCR Stool EPEC (PCR) Stool EAEC (PCR) Stl E. histolytica PCR Stool Giardia Lamblia PCR Stl P. shigelloides PCR Stool Salmonella PCR Stool Sapovirus (PCR) Stl Shigella/EIEC PCR St Y.enterocolitica PCR Stool Vibrio (PCR) Stl Vibrio cholerae PCR Stl Norovirus GI/GII PCR 05/30/25 05/31/25 05/31/25 21:23 06:13 07:04 MCV 87.9 MCH 27.5 MCHC 31.3 RDW 18.6 H Plt Count 165 MPV 11.4 Absolute Nucleated RBC 0.000 Nucleated RBC % (auto) 0.0 PT 53.0 H D INR 4.5 H D Anion Gap 21 H Estim Creat Clear Calc 9.2 Estimated GFR 7 POC Glucose 190 H 144 H Random Glucose 64 Calcium 9.2 Stl C. cayetanensis PCR Stool Rotavirus A PCR Stl Adenov F 40/41 PCR Stool Astrovirus (PCR) Stool Campylobacter PCR Stool Cryptosporidium PCR Stl Sh Tox Pr E STEC PCR Stool E coli O157 PCR Stl Enterotoxigenic E PCR Stool EPEC (PCR) Stool EAEC (PCR) Stl E. histolytica PCR Stool Giardia Lamblia PCR Stl P. shigelloides PCR Stool Salmonella PCR Stool Sapovirus (PCR) Stl Shigella/EIEC PCR St Y.enterocolitica PCR Stool Vibrio (PCR) Stl Vibrio cholerae PCR Stl Norovirus GI/GII PCR 05/31/25 07:52 MCV MCH MCHC RDW Plt Count MPV Absolute Nucleated RBC Nucleated RBC % (auto) PT INR Anion Gap Estim Creat Clear Calc Estimated GFR POC Glucose 54 L* Random Glucose Calcium Stl C. cayetanensis PCR Stool Rotavirus A PCR Stl Adenov F 40 PCR Stool Astrovirus (PCR) Stool Campylobacter PCR Stool Cryptosporidium PCR Stl Sh Tox Pr E STEC PCR Stool E coli O157 PCR Stl Enterotoxigenic E PCR Stool EPEC (PCR) Stool EAEC (PCR) Stl E. histolytica PCR Stool Giardia Lamblia PCR Stl P. shigelloides PCR Stool Salmonella PCR Stool Sapovirus (PCR) Stl Shigella/EIEC PCR St Y.enterocolitica PCR Stool Vibrio (PCR) Stl Vibrio cholerae PCR Stl Norovirus GI/GII PCR Microbiology Microbiology Results: Microbiology 05/25/25 17:46 Blood Culture - Final Blood - Venous No growth after 5 days. 05/25/25 17:36 Blood Culture - Final Blood - Venous No growth after 5 days. Assessment and Plan (1) Supratherapeutic INR: Status: Acute Plan 65 year old women initially admitted to ICU for Shortness of breath and feeling unwell overall. She was hypotensive in the ED and transferred to the ICU for vasopressor support due to poor initial response to IV fluids. PREM on CKD 2b. Worsening renal failure Creat 5.72 nephrology following>likely from tubular injury Plan for dialysis catheter, likely tomorrow when INR is down some more Supratherapeutic INR down to 4.5 today, peaked at 7.8 10mg IV vitamin K x1 05/29, 5mg IV 05/30, 5 mg IV today monitor for further signs of bleeding Acute respiratory failure secondary to volume overload 05/28 cxr neg for consolidation but showing small effusion to right side BNP [id number] discussed with cardiology, started on IV bumex 0.5mg/hr strict intake and output daily weights continue supplemental oxygen to keep oxygen saturation > 90% GI bleed, likely upper GI bleed. No further episodes of bleeding BRBPR no colitis on abd ct, negative cdiff stable HH at this time, no need for blood transfusion GI following follow CBC daily DM2 with hypoglycemia has been having episodes of low BS requiring D50 poor po intake continue monitoring closely Raynaud's has very poor peripheral circulation oxygen saturation not reading peripheral digits correctly follow clinical signs of hypoxia can use forehead reader for better results check ABG if hypoxia or hypercarbia suspected UTI urine cx with shlomo treated with IV Rocephin x5 days continue renally dosed Fluconazole 100mg daily for 14 days Bilateral LE edema Neg DVT studies likely from fluid overload PAF eliquis on hold due to GI bleed Hx of PE eliquis on hold due to GI bleed Hx of tachy-dalia syndrome Pacemaker Due to patients worsening symptoms, son in agreement for hospice consultation DVT prophylaxis with SCD boots due to anemia DNR Quality Stroke Does the patient have a stroke diagnosis?: No VTE Prior VTE?: No VTE Risk Level:: Medical - moderate - high VTE Device Contraindication: Treatment Not Indicated VTE Drug Contraindication: N/A - Med Ordered
[2025-05-31 08:57] LABS: Glucose, Whole Blood 101 mg/dL (60-115)
--- NOTE | 2025-05-31 09:47 | MHC.CM.PN ---
EMR REVIEWED, PT W/MULTIPLE MEDICAL ISSUES, PER MD PT WILL HAVE DIALYSIS TODAY AND WILL LIKEY REMAIN INPT THROUGH NEXT WEEK. HOSPICE CONSULT PLACED YESTERDAY 05/31 AND CM RECEIVED MESSAGE FROM [facility] WHO REPORTS PLAN FOR INFORMATIONAL W/PT'S SON AT 1PM. PER HOSPITALIST PT MAKES HER OWN DECISIONS AND WOULD HAVE TO AGREE, CM MET W/PT WHO REPORTS SHE DOES NOT WANT HOSPICE, PT STATES ADAMANTLY NO AND REPORTS SHE WANTS TO RETURN HOME, DOES NOT WANT TO GIVE UP HER MEDICATIONS AND WANT DIALYSIS IF SHE NEEDS IT. [facility] UPDATED. CM WILL FOLLOW-UP W/PT'S SON WHEN HE COMES IN TO VISIT.
--- NOTE | 2025-05-31 10:46 | MHC.SLORD ---
Speech Language Pathology Order Status: Patient NPO for IR. Per RN, patient tolerated small medications whole with thin liquids this date and no concerns with diet. Patient tolerating current diet, recommend continue. 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
--- NOTE | 2025-05-31 11:16 | PM.PNCARD ---
Subjective Subjective Date of Service: 05/31/25 Principal diagnosis: Decompensated heart failure, renal failure Interval history: Patient has overall poor response to IV Bumex drip with overall significant oliguria. Patient remains somnolent. Been seen by Nephrology and plan for dialysis tomorrow once INR is improved. Overall remains fluid overloaded. Remains with junctional/atrial fibrillation rhythm. Review of Systems Review of Systems Yes Unobtainable due to mental status Physical Exam Vital Signs: Last Vital Signs Temp 97.6 F 05/31/25 07:15 Pulse 50 05/31/25 07:15 Resp 16 05/31/25 07:15 BP 110/60 05/31/25 07:15 Pulse Ox 92 05/31/25 07:15 O2 Del Method Nasal Cannula 05/31/25 07:15 O2 Flow Rate 2 05/31/25 07:15 FiO2 35 05/29/25 09:30 Oxygen Flow Rate 1 05/25/25 20:24 BMI result Body Mass Index 31.6 Const General: cooperative, in distress mild and respiratory, ill appearing, lethargic (Arousable and responds appropriately) and other Nutritional Appearance: overweight Orientation/consciousness: lethargic (Arousable and responds appropriately) HEENT Head: Yes normocephalic and Yes atraumatic Neck Neck: Yes trachea midline, Yes supple and Yes JVD Resp Effort & Inspection: decreased respiratory effort Auscultation: crackles and diminished lung sounds Cardio Jugular venous distension: JVD Heart sounds: S1 normal heart sound present, S2 normal heart sound present, no click, no gallops and Murmur heart sound present systolic GI Inspection: Yes distended Auscultation: normal bowel sounds Skin General skin exam: no rashes or lesions noted Neuro General: moves all extremities Extrem General: No clubbing, No cyanosis and Yes edema Objective Labs and Meds 05/31/25 06:13 05/31/25 06:13 Lab results: Laboratory Results - last 24 hr 05/30/25 05/30/25 05/30/25 11:24 16:16 19:02 WBC RBC Hgb Hct MCV MCH MCHC RDW Plt Count MPV Absolute Nucleated RBC Nucleated RBC % (auto) PT INR Sodium Potassium Chloride Carbon Dioxide Anion Gap BUN Creatinine Estim Creat Clear Calc Estimated GFR POC Glucose 95 95 75 Random Glucose Calcium 05/30/25 05/30/25 05/31/25 21:01 21:23 06:13 WBC 8.8 RBC 3.05 L Hgb 8.4 L Hct 26.8 L MCV 87.9 MCH 27.5 MCHC 31.3 RDW 18.6 H Plt Count 165 MPV 11.4 Absolute Nucleated RBC 0.000 Nucleated RBC % (auto) 0.0 PT 53.0 H D INR 4.5 H D Sodium 139 Potassium 5.0 Chloride 100 Carbon Dioxide 23 Anion Gap 21 H BUN 86 H Creatinine 5.72 H* Estim Creat Clear Calc 9.2 Estimated GFR 7 POC Glucose 56 L* 190 H Random Glucose 64 Calcium 9.2 05/31/25 05/31/25 05/31/25 07:04 07:52 08:54 WBC RBC Hgb Hct MCV MCH MCHC RDW Plt Count MPV Absolute Nucleated RBC Nucleated RBC % (auto) PT INR Sodium Potassium Chloride Carbon Dioxide Anion Gap BUN Creatinine Estim Creat Clear Calc Estimated GFR POC Glucose 144 H 54 L* 101 Random Glucose Calcium Progress Note: A&P Assessment and plan (1) Decompensated heart failure: Status: Acute Assessment and Plan: Decompensated heart failure in this elderly woman with multiple comorbidities and advancing renal dysfunction with poor urine output with diuresis. She also has somewhat altered mental status not sure if this is related to uremia. She has been followed by Nephrology and after discussing with the hospitalist team that has a plan for renal replacement therapy starting tomorrow based on INR. Today while we are waiting we can try enhance diuresis with adding metolazone to her treatment to see if that will be any urine output. Otherwise overall she is significantly advanced heart disease with significant biatrial enlargement with diastolic dysfunction with RV dysfunction along with significant tricuspid regurgitation as well as mitral regurgitation which portends a poor prognosis especially given her overall poor response to medical therapy. This was discussed with her. Not sure if she comprehends completely. Discussed about palliative/hospice care, she is not sure and again did not give me a definitive answer. Overall prognosis remains poor. Given that she is planned for renal replacement therapy to manage his fluid status, will sign of the case. If there are further issues feel free to contact me. Time Spent With Patient Time: Total time managing care of this patient today ____ minutes. Progress Note: Quality Stroke Does the patient have a stroke diagnosis?: No Procedures Date of Service Date of Service: 05/31/25
[2025-05-31 11:28] LABS: Glucose, Whole Blood 87 mg/dL (60-115)
[2025-05-31 11:44] VITALS: BP 124/58; PULSE 52; RESP 16; TEMP 36.3; O2SAT 93
--- NOTE | 2025-05-31 12:33 | HO.WOUND ---
Wound Consult: Follow up 65 yr old [place] [facility] [place] - See progress notes and H&P for detailed history. Wound consult follow up for coccyx. Patient agreeable to assessment and photo documentation. Patient noted on previous admission to have stage 2 pressure injury to coccyx. 05/26/25 Coccyx Coccyx 05/31/25 Etiology: coccyx stage 2 pressure injury Present on Admission Measurements: 0.3cm x 0.3cm x 0.1cm Wound Bed: moist pink superficial - surrounding skin pale pink scar tissue Drainage / Odor: none Alida wound: ? No Induration, Fluctuance or Warmth noted Pain: none Goals of Treatment: ? triad/foam left heel - intact blanching 05/31/25 - right heel Right heel- intact red and blanching Right dorsal foot- purple discoloration ? bruising? 05/26/25 05/31/25 Right medial foot- purple discoloration- ? bruising Recommendations: 1. Turn and Reposition every 2 hours and as needed for patient comfort. Use pillows or wedges to support off loading positions. 2. Off Load all bony prominences with use of pillows and heel boots if needed. Apply Preventative foams where needed. 3. Use waffle cushion when up to chair, limit sitting times to 1-2 hours 3. Monitor for incontinence and moisture control, use barrier creams when needed for prevention and treatment. 4. Provide adequate and supplemental nutrition. 5. Order or Continue low air loss mattress. 6. When applicable maintain blood glucose levels per Providers order. coccyx: Off Load Pressure with Q2 hr turns and use of pillows - Cleanse with PH balance spray or wipes, pat dry. ?Apply thin layer of Triad to wound bed. Do not remove all of paste between applications as this may cause further skin damage.? Cover with foam dressing to aid in off loading and protection from friction. Change every other day and PRN. Re-consult wound care Nurse for wound deterioration or wound changes.
--- NOTE | 2025-05-31 14:08 | MHC.SL.SWA ---
Speech Pathologist Impression: Mild-moderate oropharyngeal dysphagia Risk of Aspiration Due to: Current conditions, reduced cognition, dentition status Dysphasia Diet Status: Recommend CONTINUE NDD2 (ground/mechanical), THIN liquids with 1:1 feed Liquid Consistency and Strategies for Safe Swallow: Liquid Intake Recommendation: Thin Liquid Intake Strategies: Solid Food Consistency: Dietary Recommendations: Grnd/Mech Altered (NDD2) Additional Modifications to Solid Foods: Oral Medication Intake: Crushed with Puree Please contact the pharmacy regarding appropriate crushable or liquid drug formulations that are available whenever modified delivery is recommended. Compensatory Strategies and Precautions to be Taken for Safe Swallow: Sitting Upright (90 deg) Small Bites and Sips Alternate Liquids/Solids Rate of Ingestion Change Supervision While Eating and Drinking for Safe Swallow: Total Assistance (1:1) Foods to Avoid: Difficult to chew solids. Swallowing Recommended Treatments: Compens. Strategy Educat. Recommendation for Speech: Inpatient Speech Therapy Comment: Patient met in room for dysphagia treatment. Patient seen in bed with family members at bedside. RN, CENTRAL OFFICE OPERATOR and family reporting minimal PO intake for lunch. Patient ordered additional chicken broth this date. Patient's IR procedure rescheduled, no longer NPO. Patient tolerating thin liquids via small controlled straw sips. Patient continues with weak voice, at times can be aphonic. Cough x1, not noted on any specific consistency and perceived as dry. Also no desaturation with cough or during PO intake; patient on 2L NC. Patient accepting one bite of applesauce, small piece of latosha cracker and saltine. Patient with prolonged mastication/increased mastication efforts with small cracker pieces. Patient edentulous. More timely mastication with saltine soaked in chicken broth. Patient reporting tolerating diet; requesting additional side of gravy for ground meats. ARTIFICIAL FLOWER [employer]KER contact bottling supervisor and they altered PDA on floor of request. Patient not appropriate for upgrade d/t reduced cognition and dentition status. Recommend CONTINUE NDD2 (ground/mechanical), THIN liquids with 1:1 feeding assistance ([id number] if patient is not allowing full feed). ART[employer] FLOWER [employer]KER to continue to follow. Frequency/Duration: Date Range for Service Req: Timeline to reassess: Associate Engineer Clinican/Clinical Fellow: No Supervisory Statement: I have reviewed and agree with the student/clinical fellow's documentation: N/A Speech Language Pathologist: Sadia Salinas M.A., CCC-[employer]
--- NOTE | 2025-05-31 15:06 | HO.WOUND ---
Wound Consult: Follow up @ 1507 Seen for Forehead probe oxygen monitor. Forehead probe was secured in place with tegaderm removed and intact pink blanchable devices marking noted. Recommend site rotation. New Forehead Oxygen probe provided at bedside with spare left at bedside. Forehead cleaned with alcohol followed by skin prep attempted application to right ride of forehead but was not able to obtain a reading reapplied to left forehead in different location to prevent device related Pressure Injury. Recommend rotating site and requesting Respiratory therapy assistance in obtaining reading from different site in an effort to limit device to left forehead. Details from prior assessment: 65 yr [place] [facility] [place] - See progress notes and H&P for detailed history. Wound consult follow up for coccyx. Patient agreeable to assessment and photo documentation. Patient noted on previous admission to have stage 2 pressure injury to coccyx. 05/26/25 Coccyx Coccyx 05/31/25 Etiology: coccyx stage 2 pressure injury Present on Admission Measurements: 0.3cm x 0.3cm x 0.1cm Wound Bed: moist pink superficial - surrounding skin pale pink scar tissue Drainage / Odor: none Alida wound: ? No Induration, Fluctuance or Warmth noted Pain: none Goals of Treatment: ? triad/foam left heel - intact blanching 05/31/25 - right heel Right heel- intact red and blanching Right dorsal foot- purple discoloration ? bruising? 05/26/25 05/31/25 Right medial foot- purple discoloration- ? bruising Recommendations: 1. Turn and Reposition every 2 hours and as needed for patient comfort. Use pillows or wedges to support off loading positions. 2. Off Load all bony prominences with use of pillows and heel boots if needed. Apply Preventative foams where needed. 3. Use waffle cushion when up to chair, limit sitting times to 1-2 hours 3. Monitor for incontinence and moisture control, use barrier creams when needed for prevention and treatment. 4. Provide adequate and supplemental nutrition. 5. Order or Continue low air loss mattress. 6. When applicable maintain blood glucose levels per Providers order. coccyx: Off Load Pressure with Q2 hr turns and use of pillows - Cleanse with PH balance spray or wipes, pat dry. ?Apply thin layer of Triad to wound bed. Do not remove all of paste between applications as this may cause further skin damage.? Cover with foam dressing to aid in off loading and protection from friction. Change every other day and PRN. Re-consult wound care Nurse for wound deterioration or wound changes.
[2025-05-31] MEDS: Bumetanide 25 MG in Container,Empty 0 ML IVCONT (15:33)
[2025-05-31 15:37] VITALS: BP 125/64; PULSE 54; RESP 20; TEMP 36.4; O2SAT 99
--- NOTE | 2025-05-31 16:25 | PM.CCPN ---
Subjective Subjective Date of Service: 05/31/25 Interval History: Poor urine output, creatinine increased to 5.72 Planned to get a temporary dialysis catheter tomorrow and start on 1st session of hemodialysis Critical Care Time (minutes): 35 Physical Exam Vital Signs: Vital Signs: Last Vital Signs Temp 97.6 F 05/31/25 15:37 Pulse 54 05/31/25 15:37 Resp 20 05/31/25 15:37 BP 125/64 05/31/25 15:37 Pulse Ox 99 05/31/25 15:37 O2 Del Method Nasal Cannula 05/31/25 15:37 O2 Flow Rate 2 05/31/25 15:37 FiO2 35 05/29/25 09:30 Oxygen Flow Rate 1 05/25/25 20:24 BMI result Body Mass Index 31.6 General: Elderly lady acute distress, ill appearing and tired appearing Nutritional Appearance: well nourished and overweight Eyes: appearance normal, both eyes and all related structures; Alignment and Position: alignment normal and position normal Neck: No lymphadenopathy, no thyromegaly Resp: bilateral air entry equal, occasional added sounds present, edematous, no dyspnea Cardio: Regular rate, regular rhythm; Heart sounds: S1 normal heart sound present and S2 normal heart sound present GI: soft, nontender, no guarding, no hepatosplenomegaly : bladder normal to inspection, bladder normal to palpation, no renal angle tenderness Skin: no rashes or lesions noted and elasticity normal Neuro: oriented to person, oriented to place, oriented to time, slight confusion and moves all extremities Objective Data Labs 05/31/25 06:13 05/31/25 06:13 Labs: Laboratory Results - last 24 hr 05/30/25 05/30/25 05/30/25 16:16 19:02 21:01 WBC RBC Hgb Hct MCV MCH MCHC RDW Plt Count MPV Absolute Nucleated RBC Nucleated RBC % (auto) PT INR Sodium Potassium Chloride Carbon Dioxide Anion Gap BUN Creatinine Estim Creat Clear Calc Estimated GFR POC Glucose 95 75 56 L* Random Glucose Calcium 05/30/25 05/31/25 05/31/25 21:23 06:13 07:04 WBC 8.8 RBC 3.05 L Hgb 8.4 L Hct 26.8 L MCV 87.9 MCH 27.5 MCHC 31.3 RDW 18.6 H Plt Count 165 MPV 11.4 Absolute Nucleated RBC 0.000 Nucleated RBC % (auto) 0.0 PT 53.0 H D INR 4.5 H D Sodium 139 Potassium 5.0 Chloride 100 Carbon Dioxide 23 Anion Gap 21 H BUN 86 H Creatinine 5.72 H* Estim Creat Clear Calc 9.2 Estimated GFR 7 POC Glucose 190 H 144 H Random Glucose 64 Calcium 9.2 05/31/25 05/31/25 05/31/25 07:52 08:54 11:15 WBC RBC Hgb Hct MCV MCH MCHC RDW Plt Count MPV Absolute Nucleated RBC Nucleated RBC % (auto) PT INR Sodium Potassium Chloride Carbon Dioxide Anion Gap BUN Creatinine Estim Creat Clear Calc Estimated GFR POC Glucose 54 L* 101 87 Random Glucose Calcium Microbiology Microbiology Results: Microbiology 05/25/25 17:46 Blood - Venous Blood Culture - Final No growth after 5 days. 05/25/25 17:36 Blood - Venous Blood Culture - Final No growth after 5 days. 05/25/25 20:59 Urine clean catch Urine Culture - Final Geovanna glabrata Progress Note: A&P Assessment and plan (1) PREM (acute kidney injury): Status: Acute Plan 65-year-old lady with underlying multiple sclerosis with spasms, CAD status post LAD stenting, subdural hematoma, chronic kidney disorder, pulmonary emboli, AFib on Eliquis with tachy-dalia syndrome status post pacemaker, CVA, type 2 diabetes mellitus, Raynaud's admitted on 05/25/2025 with malaise, acute kidney injury in the setting of hypotension needing vasopressor support Apparently patient has been hospitalized since the beginning of March initially at [facility] later transferred to [facility] [place] from there was discharged to a rehab, and later at [facility]. This time admitted due to PREM in the setting of septic shock possibly secondary to acute tubular necrosis, she had similar presentation when she was at [facility] but unclear if she received any renal replacement therapy. CT abdomen and pelvis showed normal size kidneys, no obstruction. Urinalysis showing 3+ blood, 3+ protein, greater than 20 RBC, greater than 50 WBCs possibly due to UTI,UPCR less than 1 g. Her creatinine has been staying around mid 5s since 05/25/2025, oliguric, has some signs of uremia. We will place in a temporary dialysis catheter tomorrow and initiate her on renal placement therapy Given that she is hospitalized for over 3 months now, no need for renal replacement therapy for survival explains a very poor prognosis and this has been explained in detail to patient and the family. Patient still wants to go ahead and try on diuresis. If she can not tolerate then they would consider reassessing about stopping dialysis. Quality Stroke Does the patient have a stroke diagnosis?: No VTE Prior VTE?: No VTE Risk Level:: Medical - moderate - high VTE Device Contraindication: Treatment Not Indicated VTE Drug Contraindication: N/A - Med Ordered
[2025-05-31 16:38] LABS: Glucose, Whole Blood 107 mg/dL (60-115)
[2025-05-31] MEDS: Phytonadione (Vit K1) Oral 10 MG/ML AMPUL 2.5 MG PO (17:42)
--- NOTE | 2025-05-31 19:11 | PC.NURSE ---
BS was done @ 745am for 378cc, no urine output overnight reported by narcotics and/or vice detective, pt on bumex gtt. provider made aware and SC ordered. SC 150cc.
[2025-05-31 19:33] VITALS: BP 137/63; PULSE 52; RESP 18; TEMP 36.4; O2SAT 100
[2025-05-31 20:20] LABS: Glucose, Whole Blood 86 mg/dL (60-115)
[2025-05-31] MEDS: Latanoprost 0.005 % Ophth Sol 2.5 ML DROPS 1 DROP EYE-BOTH (21:14)
[2025-05-31 22:59] VITALS: BP 140/63; PULSE 54; RESP 17; TEMP 36.6; O2SAT 92
[2025-06-01] VITALS (8 sets, daily range): BP systolic 117–151; BP diastolic 53–73; PULSE 53–55; RESP 18–20; TEMP 35.1–36.6; O2SAT 81–98; BMI 31.6
[2025-06-01 06:45] LABS: Hematocrit 25.4 % (37.0-47.0); Hemoglobin 8.1 g/dl (12.0-16.0); Mean Corpuscular HGB Conc 31.9 g/dl (31.0-35.0); Mean Corpuscular Hemoglobin 28.2 pg (27.0-33.0); Mean Corpuscular Volume 88.5 fL (80.0-98.0); NRBC Abs Auto 0.020 X10*3/uL (0.0-0.012); NRBC Pct Auto 0.2 /100WBC (0.0-0.2); Platelet Count 169 X10*3/uL (160-400); Red Blood Count 2.87 X10*6/uL (4.20-5.50); White Blood Count 9.9 X10*3/uL (4.8-10.8)
[2025-06-01 07:01] LABS: Anion Gap 23 (12-20); Blood Urea Nitrogen 89 mg/dL (9-16); Calcium 9.3 mg/dL (8.4-10.2); Carbon Dioxide 21 mmol/L (22-29); Chloride 100 mmol/L (96-108); Creatinine Clr Calc Pharmacy 9.5; Estimated Glomerular Filt Rate 8; Potassium 4.5 mmol/L (3.3-5.1); Sodium 139 mmol/L (135-145)
[2025-06-01 07:18] LABS: INTERNATIONAL NORM RATIO 3.1 (0.9-1.1); Prothrombin Time 37.4 SEC (11.2-13.5)
--- NOTE | 2025-06-01 08:02 | HO.PM.IMPN ---
Subjective Subjective Date of Service: 06/01/25 Interval History: INR supratherapeutic 3.1, repeat 3.3 , patient being given vitamin K IV and p.o. Procedure-HD line limited because of supratherapeutic INR, logistical issues with holidays and no in-house availability from afternoon urine 700cc in 24 hrs PREM on CKD Review of Systems Review of Systems: Yes all other systems are reviewed and are negative Physical Exam Exam: Exam: General: AOx3, chronically ill and frail appearing in mild respiratory distress Resp: CTA bilaterally CVS: S1, S2, RRR GI: +BS, NT, no distention Skin: dec skin turgur Neuro: Cranial nerves II-XII grossly intact bilaterally. Motor grossly intact bilaterally Extremities: b/l UE tips of finger mottling Psych: Anxious and poor insight Vital Signs: Vital Signs: Last Vital Signs Temp 97.9 F 06/01/25 02:57 Pulse 54 06/01/25 02:57 Resp 19 06/01/25 02:57 BP 151/69 H 06/01/25 02:57 Pulse Ox 93 06/01/25 02:57 O2 Del Method Nasal Cannula 06/01/25 02:57 O2 Flow Rate 2 06/01/25 02:57 FiO2 35 05/29/25 09:30 Oxygen Flow Rate 1 05/25/25 20:24 BMI result Body Mass Index 31.6 Objective Data Active Medications Amantadine HCl (Amantadine Hcl 100 Mg Capsule) 100 mg PO BID [facility] Last Admin: 05/31/25 21:09 Dose: 100 mg Documented By: JAVIER Artificial Tears (Artificial Tears 15 Ml Drops) 2 drop EYE-RIGHT Q4H PRN PRN Reason: Dry Eyes Brimonidine Tartrate (Brimonidine Tartrate 0.2% Oph 5 Ml Bottle) 1 drop EYE-BOTH BID [facility] Last Admin: 05/31/25 21:14 Dose: 1 drop Documented By: JAVIER Dextrose (Dextrose 50 % 25 Gm/50 Ml Syringe) 25 gm IVPUSH Q15M PRN; Protocol PRN Reason: per Hypoglycemia Standing Ord. Last Admin: 06/01/25 07:28 Dose: 25 gm Documented By: JAVIER Dorzolamide HCl (Dorzolamide Hcl 2 % Ophth Doris 10 Ml Drpbtl) 1 drop EYE-BOTH BID [facility] Last Admin: 05/31/25 21:14 Dose: 1 drop Documented By: JAVIER Fluconazole (Fluconazole 100 Mg Tablet) 100 mg PO DAILY [facility] Stop: 06/12/25 11:59 Last Admin: 05/31/25 08:04 Dose: 100 mg Documented By: SAL Bumetanide 25 mg/ IV (Miscellaneous Supplies) 100 mls @ 2 mls/hr IVCONT .Q24H [facility] Last Admin: 05/31/25 15:33 Dose: 0.5 mg/hr, 2 mls/hr Documented By: SAL Phytonadione 5 mg/ Sodium (Chloride) 50.5 mls @ 50.5 mls/hr IV ONCE ONE Stop: 06/01/25 08:40 Insulin Human Lispro (Insulin Lispro 100 Unit/Ml 3 Ml Vial) 0 unit SUBCUT QIDACHS [facility]; Protocol Last Admin: 06/01/25 07:31 Dose: Not Given Documented By: CRESENCIO Non-Admin Reason: No Insulin Coverage Latanoprost (Latanoprost 0.005 % Ophth Doris 2.5 Ml Drops) 1 drop EYE-BOTH BEDTIME [facility] Last Admin: 05/31/25 21:14 Dose: 1 drop Documented By: JAVIER Levothyroxine Sodium (Levothyroxine Sodium 75 Mcg Tablet) 75 mcg PO DAILY@0600 [facility] Last Admin: 06/01/25 05:09 Dose: Not Given Documented By: JAVIER Non-Admin Reason: NPO Lidocaine (Lidocaine 4 % Patch Adh..Patch) 2 patch TRANSDERMA DAILY [facility]; Protocol Last Admin: 05/31/25 08:04 Dose: 2 patch Documented By: SAL Metolazone (Metolazone 5 Mg Tablet) 5 mg PO DAILY [facility] Last Admin: 05/31/25 15:48 Dose: 5 mg Documented By: SAL Morphine Sulfate (Morphine Sulfate 4 Mg/Ml Cartridge) 2 mg IVPUSH Q4H PRN; Protocol PRN Reason: Pain, Severe (Pain Scale 7-10) Last Admin: 05/31/25 21:09 Dose: 2 mg Documented By: JAVIER Multi-Ingred Cream/Lotion/Oil/Oint (Artificial Tears Ophth Oint 3.5 Gm Tube) 1 appl EYE-BOTH TID PRN; Protocol PRN Reason: Dry Eyes Last Admin: 05/31/25 15:45 Dose: 1 appl Documented By: SAL Ondansetron HCl (Ondansetron Hcl 4 Mg/2 Ml Vial) 4 mg IVPUSH Q8H PRN PRN Reason: Nausea and Vomiting Sodium Chloride (0.9 % Sodium Chloride Flush 3 Ml Syringe) 3 ml IVFLUSH QSHIFT ROBERT Last Admin: 05/31/25 22:21 Dose: Not Given Documented By: JAVIER Non-Admin Reason: IV Running Labs 06/01/25 06:17 06/01/25 06:17 Labs: Laboratory Results - last 24 hr 05/27/25 05/28/25 05/31/25 05:12 05:00 08:54 MCV MCH MCHC RDW Plt Count MPV Absolute Nucleated RBC Nucleated RBC % (auto) PT INR Anion Gap Estim Creat Clear Calc Estimated GFR POC Glucose 101 Random Glucose Calcium Complement C3 80 L 69 L Complement C4 10 L 8 L 05/31/25 05/31/25 05/31/25 11:15 16:29 20:15 MCV MCH MCHC RDW Plt Count MPV Absolute Nucleated RBC Nucleated RBC % (auto) PT INR Anion Gap Estim Creat Clear Calc Estimated GFR POC Glucose 87 107 86 Random Glucose Calcium Complement C3 Complement C4 06/01/25 06:17 MCV 88.5 MCH 28.2 MCHC 31.9 RDW 18.9 H Plt Count 169 MPV 11.1 Absolute Nucleated RBC 0.020 H Nucleated RBC % (auto) 0.2 PT 37.4 H D INR 3.1 H Anion Gap 23 H Estim Creat Clear Calc 9.5 Estimated GFR 8 POC Glucose Random Glucose 64 Calcium 9.3 Complement C3 Complement C4 Assessment and Plan (1) Supratherapeutic INR: Status: Acute Plan 65 year old women initially admitted to ICU for Shortness of breath and feeling unwell overall. She was hypotensive in the ED and transferred to the ICU for vasopressor support due to poor initial response to IV fluids. #PREM on CKD 2b. Worsening renal failure Creat 5.72 nephrology following>likely from tubular injury Plan for dialysis catheter when INR<2 #Supratherapeutic INR continues to be supratherapeutic 31-->3.3 per IR, goal is <2 and will continue to rx with iv Vit K , FFP as needed until Friday when in-house IR availability is going to be possible again monitor for further signs of bleeding #Acute respiratory failure secondary to volume overload 05/28 cxr neg for consolidation but showing small effusion to right side BNP 23724 discussed with cardiology, started on IV bumex 0.5mg/hr strict intake and output daily weights continue supplemental oxygen to keep oxygen saturation > 90% #GI bleed, likely upper GI bleed. No further episodes of bleeding BRBPR no colitis on abd ct, negative cdiff stable HH at this time, no need for blood transfusion GI following follow CBC daily #DM2 with hypoglycemia has been having episodes of low BS requiring D50 poor po intake continue monitoring closely #Raynaud's has very poor peripheral circulation oxygen saturation not reading peripheral digits correctly follow clinical signs of hypoxia can use forehead reader for better results check ABG if hypoxia or hypercarbia suspected #UTI urine cx with shlomo treated with IV Rocephin x5 days continue renally dosed Fluconazole 100mg daily for 14 days #Bilateral LE edema Neg DVT studies likely from fluid overload #PAF eliquis on hold due to GI bleed #Hx of PE eliquis on hold due to GI bleed #Hx of tachy-dalia syndrome Pacemaker Due to patients worsening symptoms, son in agreement for hospice consultation, pt would like all measures-full code DVT prophylaxis with SCD boots due to anemia Quality Stroke Does the patient have a stroke diagnosis?: No VTE Prior VTE?: No VTE Risk Level:: Medical - moderate - high VTE Device Contraindication: Treatment Not Indicated VTE Drug Contraindication: N/A - Med Ordered
[2025-06-01 08:20] LABS: Glucose, Whole Blood 58 mg/dL (60-115)
[2025-06-01] MEDS: Phytonadione (Vit K1) Oral 10 MG/ML AMPUL 5 MG PO (08:29)
[2025-06-01] MEDS: Lidocaine 4 % Patch ADH..PATCH 2 PATCH TRANSDERMA (08:29)
[2025-06-01] MEDS: Brimonidine Tartrate 0.2% Oph 5 ML BOTTLE 1 DROP EYE-BOTH (08:30)
[2025-06-01] MEDS: Dorzolamide HCl 2 % Ophth Sol 10 ML DRPBTL 1 DROP EYE-BOTH ×2 (08:30→21:20)
[2025-06-01 08:39] LABS: Glucose, Whole Blood 120 mg/dL (60-115)
[2025-06-01 09:07] LABS: Magnesium 3.1 mg/dL (1.6-2.6)
--- NOTE | 2025-06-01 09:32 | MHC.CM.PN ---
EMR REVIEWED, LATE ENTRY NOTE FOR 05/31/25 CM MET W/PT'S SON AT [facility] WHO REPORTS HE IS AWARE PT DOES NOT WANT HOSPICE AND PLAN IS FOR PICC LINE FOR DIALYSIS ONCE PT IS CLEARED FOR PICC LINE PLACEMENT, PT REPORTS HER PLAN IS TO RETURN HOME W/RESUMP OF CARD SCRAPER HRS AND [facility], CM WILL CONT TO FOLLOW DC NEEDS.
[2025-06-01 10:27] LABS: INTERNATIONAL NORM RATIO 3.3 (0.9-1.1); Prothrombin Time 39.4 SEC (11.2-13.5)
--- NOTE | 2025-06-01 10:47 | MHC.SL.SWA ---
Speech Pathologist Impression: Mild oral phase dysphagia d/t missing dentition and ease of fatigue Risk of Aspiration Due to: Hx of MS Adult FTT Dysphasia Diet Status: Recommend CONTINUE NDD2 (ground/mechanical), THIN liquids with 1:1 feed Liquid Consistency and Strategies for Safe Swallow: Liquid Intake Recommendation: Thin Liquid Intake Strategies: Solid Food Consistency: Dietary Recommendations: Grnd/Mech Altered (NDD2) Additional Modifications to Solid Foods: Oral Medication Intake: Crushed with Puree Please contact the pharmacy regarding appropriate crushable or liquid drug formulations that are available whenever modified delivery is recommended. Compensatory Strategies and Precautions to be Taken for Safe Swallow: Sitting Upright (90 deg) Small Bites and Sips Alternate Liquids/Solids Rate of Ingestion Change Supervision While Eating and Drinking for Safe Swallow: Total Assistance (1:1) Foods to Avoid: Difficult to chew solids. Swallowing Recommended Treatments: Compens. Strategy Educat. Recommendation for Speech: Inpatient Speech Therapy Comment: Pt seen for dysphagia follow up. Pt son at bedside. Pt continues to have no appetite; pt noted she cannot taste the food and, when encouraged by her son to eat, stated 'what's the use?' Pt ate jello, with adequate oropharyngeal coordination. Pt son fed her with steady pacing, conservative sized boluses. No overt s/s of aspiration. Pt voice remains weak and breathy. SUPERVISOR PRODUCTION reviewed POC with pt and son, who verbalize agreement. RN consulted as pt son asked about dialysis and became weepy at end of visit. Son reported he and his took care of patient and want to do as much as they can for her. MD notified, no changes to diet at this time NDD2 with thins. Frequency/Duration: Date Range for Service Req: Timeline to reassess: Baker Head Clinican/Clinical Fellow: No Supervisory Statement: I have reviewed and agree with the student/clinical fellow's documentation: N/A Speech Language Pathologist: Alyson Chandler M.S., [facility]-SUPERVISOR PRODUCTION
[2025-06-01 11:34] LABS: Glucose, Whole Blood 131 mg/dL (60-115)
[2025-06-01] MEDS: diazePAM 10 MG/2 ML CARTRIDGE 2.5 MG IVPUSH ×3 (12:02→23:57)
[2025-06-01] MEDS: Albumin Human 25 % 100 ML IV ×4 (12:41→22:29)
--- NOTE | 2025-06-01 12:50 | PC.NURSE ---
Albumen ordered. Per DR. Ware's verbal order, Bumetanide qtt to be paused for the time Albumin is running and to be restarted once Albumin administered. See MAR for timing and more information. Plan of care ongoing; call rush within reach.
--- NOTE | 2025-06-01 13:36 | MHC.CLN ---
F/U PT WITH INCREASED NUTRITION RISK R/T PRESSURE INJURY PO INTAKE POOR CURRENTLY NPO. PATIENT TO RECEIVE TEMPORARY DIALYSIS CATH AND START HD 06/01. SKIN WITH STAGE II PRESSURE INJURY TO COCCYX. MONITOR PO AND ENCOURAGE SUPPLEMENTS.
[2025-06-01] MEDS: Bumetanide 25 MG in Container,Empty 0 ML IVCONT (14:22)
--- NOTE | 2025-06-01 15:34 | P.PNNP_ITS ---
Subjective Subjective Date of Service: 06/01/25 Principal diagnosis: Decompensated heart failure, renal failure Interval history: Episode of hypotension this morning, because of which Bumex drip was pre-placed briefly paused and treated with albumin Creatinine stabilized or slightly improved, good urine output Physical Exam 2 Vital Signs: Vital Signs: Last Vital Signs Temp 97.7 F 06/01/25 11:39 Pulse 54 06/01/25 11:39 Resp 20 06/01/25 11:39 BP 117/53 L 06/01/25 11:39 Pulse Ox 96 06/01/25 11:39 O2 Del Method Nasal Cannula 06/01/25 11:39 O2 Flow Rate 2 06/01/25 11:39 FiO2 35 05/29/25 09:30 Oxygen Flow Rate 1 05/25/25 20:24 BMI result Body Mass Index 31.6 General: not in any acute distress, ill appearing Nutritional Appearance: well nourished and overweight Eyes: appearance normal, both eyes and all related structures; Alignment and Position: alignment normal and position normal Neck: No lymphadenopathy, no thyromegaly Resp: bilateral air entry equal, no added sounds present Cardio: Regular rate, regular rhythm; Heart sounds: S1 normal heart sound present and S2 normal heart sound present GI: soft, nontender, no guarding, no hepatosplenomegaly : bladder normal to inspection, bladder normal to palpation, no renal angle tenderness Skin: no rashes or lesions noted and elasticity normal Neuro: alert, oriented x 3, moves all extremities Objective Data Labs 06/01/25 06:17 06/01/25 06:17 Labs: Laboratory Results - last 24 hr 05/27/25 05/28/25 05/31/25 05:12 05:00 16:29 WBC RBC Hgb Hct MCV MCH MCHC RDW Plt Count MPV Absolute Nucleated RBC Nucleated RBC % (auto) Hold Purple Top PT INR Sodium Potassium Chloride Carbon Dioxide Anion Gap BUN Creatinine Estim Creat Clear Calc Estimated GFR POC Glucose 107 Random Glucose Calcium Magnesium Complement C3 80 L 69 L Complement C4 10 L 8 L 05/31/25 06/01/25 06/01/25 20:15 06:17 07:23 WBC 9.9 RBC 2.87 L Hgb 8.1 L Hct 25.4 L MCV 88.5 MCH 28.2 MCHC 31.9 RDW 18.9 H Plt Count 169 MPV 11.1 Absolute Nucleated RBC 0.020 H Nucleated RBC % (auto) 0.2 Hold Purple Top PT 37.4 H D INR 3.1 H Sodium 139 Potassium 4.5 Chloride 100 Carbon Dioxide 21 L Anion Gap 23 H BUN 89 H Creatinine 5.52 H* Estim Creat Clear Calc 9.5 Estimated GFR 8 POC Glucose 86 58 L* Random Glucose 64 Calcium 9.3 Magnesium Complement C3 Complement C4 06/01/25 06/01/25 06/01/25 08:16 08:35 10:03 WBC RBC Hgb Hct MCV MCH MCHC RDW Plt Count MPV Absolute Nucleated RBC Nucleated RBC % (auto) Hold Purple Top SEE NOTE PT 39.4 H INR 3.3 H Sodium Potassium Chloride Carbon Dioxide Anion Gap BUN Creatinine Estim Creat Clear Calc Estimated GFR POC Glucose 120 H Random Glucose Calcium Magnesium 3.1 H Complement C3 Complement C4 06/01/25 11:30 WBC RBC Hgb Hct MCV MCH MCHC RDW Plt Count MPV Absolute Nucleated RBC Nucleated RBC % (auto) Hold Purple Top PT INR Sodium Potassium Chloride Carbon Dioxide Anion Gap BUN Creatinine Estim Creat Clear Calc Estimated GFR POC Glucose 131 H Random Glucose Calcium Magnesium Complement C3 Complement C4 Microbiology Microbiology Results: Microbiology 05/25/25 17:46 Blood - Venous Blood Culture - Final No growth after 5 days. 05/25/25 17:36 Blood - Venous Blood Culture - Final No growth after 5 days. 05/25/25 20:59 Urine clean catch Urine Culture - Final Geovanna glabrata Procedures Date of Service Date of Service: 06/01/25 Assessment & Plan Assessment and plan (1) PREM (acute kidney injury): Status: Acute (2) High anion gap metabolic acidosis: Status: Acute (3) Hypotension: Status: Acute Plan 65-year-old lady with underlying multiple sclerosis with spasms, CAD status post LAD stenting, subdural hematoma, chronic kidney disorder, pulmonary emboli, AFib on Eliquis with tachy-dalia syndrome status post pacemaker, CVA, type 2 diabetes mellitus, Raynaud's admitted on 05/25/2025 with malaise, acute kidney injury in the setting of hypotension needing vasopressor support. Apparently patient has been hospitalized since the beginning of March initially at [facility] later transferred to [facility] from there was discharged to a rehab, and later at [facility]. This time admitted due to PREM in the setting of septic shock possibly secondary to acute tubular necrosis, she had similar presentation when she was at [facility] but unclear if she received any renal replacement therapy. CT abdomen and pelvis showed normal size kidneys, no obstruction. Urinalysis showing 3+ blood, 3+ protein, greater than 20 RBC, greater than 50 WBCs possibly due to UTI,UPCR less than 1 g. Her creatinine has been staying around mid 5s since 05/25/2025; creatinine slightly improved when compared to yesterday down to 5.52 today; also has good urine output 500 mL yesterday and 1200 mL since this morning possibly showing signs of renal recovery. We will withhold on renal replacement therapy for now and continue to monitor renal function Given that she is hospitalized for over 3 months now, no need for renal replacement therapy for survival explains a very poor prognosis and this has been explained in detail to patient and the family. High anion gap metabolic acidosis secondary to acute kidney injury Hypotension possibly due to diuresis, diuresis was briefly stopped and treated with albumin. She is grossly edematous with lot of third-spacing, we will add albumin 25 g q.6 hours to assist with diuresis and fluid removal from 3rd space. Patient had purple coloring of her fingers due to Raynaud's disease Time Spent With Patient Time: Total time managing care of this patient today ____ minutes. Progress Note: Quality Stroke Does the patient have a stroke diagnosis?: No
[2025-06-01 15:49] LABS: INTERNATIONAL NORM RATIO 3.4 (0.9-1.1); Prothrombin Time 40.4 SEC (11.2-13.5)
[2025-06-01 16:16] LABS: Glucose, Whole Blood 120 mg/dL (60-115)
[2025-06-01 19:29] LABS: Proteinase 3 PR3 Antibodies <1.0 AI
[2025-06-01] MEDS: Latanoprost 0.005 % Ophth Sol 2.5 ML DROPS 1 DROP EYE-BOTH (21:20)
[2025-06-01 21:35] LABS: Glucose, Whole Blood 106 mg/dL (60-115)
[2025-06-01 22:51] LABS: Glucose, Whole Blood 104 mg/dL (60-115)
[2025-06-01 23:10] LABS: ABG HCO3 26 mmol/L (22-26); ABG O2 % Saturation 81.0 %
[2025-06-01 23:24] LABS: MANUAL DIFF FLAG NO
[2025-06-01 23:26] LABS: Hematocrit 24.2 % (37.0-47.0); Hemoglobin 7.5 g/dl (12.0-16.0); Imm Gran Abs Auto 0.05 X10*3/uL (0.00-0.03); Imm Gran Pct Auto 0.5 % (0.0-0.4); Lymphocytes Absolute Auto 1.1 X10*3/uL (1.2-4.9); Mean Corpuscular HGB Conc 31.0 g/dl (31.0-35.0); Mean Corpuscular Hemoglobin 27.4 pg (27.0-33.0); Mean Corpuscular Volume 88.3 fL (80.0-98.0); NRBC Abs Auto 0.020 X10*3/uL (0.0-0.012); NRBC Pct Auto 0.2 /100WBC (0.0-0.2); Platelet Count 145 X10*3/uL (160-400); Red Blood Count 2.74 X10*6/uL (4.20-5.50); White Blood Count 9.4 X10*3/uL (4.8-10.8)
[2025-06-01 23:30] LABS: ABG Refer to POC result
--- NOTE | 2025-06-01 23:31 | P.EN_ITS ---
Event Note Date of Service: 06/01/25 Event Note: [employer] activated as the pt started to c/o shortness of breath. She also reported some pain, however, assessment was very difficult as the pt is a poor historian. BP and HR are stable. Oxygen sat low 90s on 2L/min via NC. She also had a liquid dark red bowel movement. Not currently on anticoagulation. Cardiopulmonary exam is unremarkable except for decreased breath sound at bases. Immediate interventions: ABGs consistent with hypoxia and hypoxemia --> oxygen increased to 4 L/min via nasal cannula. Labs stat: CBC, CMP, troponin, INR, fibrinogen, D-dimer, PTT and PT Hgb trending down significant < 24 hours from 8.1 ---> 7.5. Her INR noted to be elevated since admission and trending down but continuous significantly elevated. Platelets 169-->145 Other interventions: -NPO -Will order Protonix 80 mg IV now then 40 mg IV q12hr -Transfuse 2 units PRBCs and FFP Time Spent With Patient Time: Total time managing care of this patient today ____ minutes.
[2025-06-01 23:38] LABS: Fibrinogen 253 MG/DL (259-690); INTERNATIONAL NORM RATIO 3.3 (0.9-1.1); Prothrombin Time 39.5 SEC (11.2-13.5)
[2025-06-01 23:40] LABS: D Dimer High Sensitivity 1048 NG/ML
[2025-06-01 23:49] LABS: Partial Thromboplastin Time 60.5 SEC (26.7-34.1)
[2025-06-01 23:50] LABS: Alanine Aminotransferase 21 U/L (0-31); Albumin Level 4.8 g/dL (3.5-5.0); Alkaline Phosphatase 168 U/L (39-117); Anion Gap 23 (12-20); Aspartate Amino Transferase 63 U/L (5-31); Blood Urea Nitrogen 88 mg/dL (9-16); Calcium 9.4 mg/dL (8.4-10.2); Carbon Dioxide 22 mmol/L (22-29); Chloride 99 mmol/L (96-108); Creatinine Clr Calc Pharmacy 9.7; Estimated Glomerular Filt Rate 8; Potassium 4.1 mmol/L (3.3-5.1); Sodium 140 mmol/L (135-145); Total Protein 6.7 g/dL (6.5-8.0)
[2025-06-01 23:51] LABS: Troponin-I High Sensitivity 112.2 ng/L (<3.5-17.0)
[2025-06-02] VITALS (25 sets, daily range): BP systolic 112–169; BP diastolic 58–101; PULSE 50–99; RESP 16–90; TEMP 36.3–36.9; O2SAT 92–100; BMI 34.9
[2025-06-02 01:37] LABS: Thyroid Stimulating Hormone 2.69 uIU/mL (0.32-4.0)
[2025-06-02] MEDS: 0.9 % Sodium Chloride Flush 3 ML SYRINGE IVFLUSH ×3 (03:38→16:07)
[2025-06-02] MEDS: Albumin Human 25 % 100 ML IV ×2 (06:00→11:18)
--- NOTE | 2025-06-02 08:06 | HO.PM.IMPN ---
Subjective Subjective Date of Service: 06/02/25 Interval History: Events of overnight noted. Overall decline. Discussed with night covered; agree with conclusion patient now in DIC. Currently receiving packed red cells FFP and cryoprecipitate for burgundy stool Review of Systems Unable to obtain secondary to mild confusion Physical Exam Vital Signs: Vital Signs: Last Vital Signs Temp 97.8 F 06/02/25 07:19 Pulse 99 06/02/25 07:19 Resp 22 H 06/02/25 07:19 BP 151/63 H 06/02/25 07:19 Pulse Ox 99 06/02/25 07:19 O2 Del Method Nasal Cannula 06/02/25 07:19 O2 Flow Rate 4 06/02/25 07:19 FiO2 35 05/29/25 09:30 Oxygen Flow Rate 4 06/01/25 22:48 BMI result Body Mass Index 34.9 Const: Other: Awake responsive but difficulty speaking. Ill-appearing. Resp: Other: Diminished at bases scattered wheezes throughout Cardio: Other: No S4; positive S1-S2; no S3 murmurs rubs or gallops GI: Other: Soft nontender nondistended normoactive bowel sounds Skin: Other: Multiple ecchymotic area upper limbs and lower limbs; fingertips purple (history of Raynaud's disease) Extrem: Other: No edema bilaterally Objective Data Active Medications Amantadine HCl (Amantadine Hcl 100 Mg Capsule) 100 mg PO BID [facility] Last Admin: 06/01/25 21:50 Dose: 100 mg Documented By: SANDRA Artificial Tears (Artificial Tears 15 Ml Drops) 2 drop EYE-RIGHT Q4H PRN PRN Reason: Dry Eyes Brimonidine Tartrate (Brimonidine Tartrate 0.2% Oph 5 Ml Bottle) 1 drop EYE-BOTH BID [facility] Last Admin: 06/01/25 21:40 Dose: Not Given Documented By: SANDRA Non-Admin Reason: Patient Refused Dextrose (Dextrose 50 % 25 Gm/50 Ml Syringe) 25 gm IVPUSH Q15M PRN; Protocol PRN Reason: per Hypoglycemia Standing Ord. Last Admin: 06/01/25 07:28 Dose: 25 gm Documented By: JAVIER Diazepam (Diazepam 5 Mg Tablet) 5 mg PO Q8H PRN PRN Reason: Anxiety/spasm Diazepam (Diazepam 10 Mg/2 Ml Cartridge) 2.5 mg IVPUSH Q4H [facility] Last Admin: 06/02/25 04:20 Dose: Not Given Documented By: SANDRA Non-Admin Reason: Patient Refused Dorzolamide HCl (Dorzolamide Hcl 2 % Ophth Doris 10 Ml Drpbtl) 1 drop EYE-BOTH BID [facility] Last Admin: 06/01/25 21:20 Dose: 1 drop Documented By: SANDRA Fluconazole (Fluconazole 100 Mg Tablet) 100 mg PO DAILY [facility] Stop: 06/12/25 11:59 Last Admin: 06/01/25 08:29 Dose: 100 mg Documented By: CRESENCIO Hydromorphone HCl (Hydromorphone Hcl 1 Mg/Ml Syringe) 0.5 mg IVPUSH Q3H PRN; Protocol PRN Reason: Pain, Severe (Pain Scale 7-10) Last Admin: 06/01/25 23:24 Dose: 0.5 mg Documented By: SANDRA Bumetanide 25 mg/ IV (Miscellaneous Supplies) 100 mls @ 2 mls/hr IVCONT .Q24H [facility] On Hold: 06/02/25 00:50 Last Infusion: 06/02/25 02:16 Dose: 0 mg/hr, 0 mls/hr Documented By: SANDRA Albumin Human (Kedbumin 25 %) 100 mls @ 100 mls/hr IV Q6H [facility] Stop: 06/02/25 10:59 Last Infusion: 06/02/25 07:13 Dose: Infused Documented By: MELISSA Insulin Human Lispro (Insulin Lispro 100 Unit/Ml 3 Ml Vial) 0 unit SUBCUT QIDACHS [facility]; Protocol Last Admin: 06/01/25 21:38 Dose: Not Given Documented By: SANDRA Non-Admin Reason: No Insulin Coverage Latanoprost (Latanoprost 0.005 % Ophth Doris 2.5 Ml Drops) 1 drop EYE-BOTH BEDTIME [facility] Last Admin: 06/01/25 21:20 Dose: 1 drop Documented By: SANDRA Levothyroxine Sodium (Levothyroxine Sodium 75 Mcg Tablet) 75 mcg PO DAILY@0600 [facility] Last Admin: 06/02/25 06:35 Dose: Not Given Documented By: SANDRA Non-Admin Reason: NPO Lidocaine (Lidocaine 4 % Patch Adh..Patch) 2 patch TRANSDERMA DAILY [facility]; Protocol Last Admin: 06/01/25 08:29 Dose: 2 patch Documented By: CRESENCIO Metolazone (Metolazone 5 Mg Tablet) 5 mg PO DAILY [facility] On Hold: 06/02/25 00:56 Last Admin: 06/01/25 08:29 Dose: 5 mg Documented By: CRESENCIO Multi-Ingred Cream/Lotion/Oil/Oint (Artificial Tears Ophth Oint 3.5 Gm Tube) 1 appl EYE-BOTH TID PRN; Protocol PRN Reason: Dry Eyes Last Admin: 06/01/25 21:20 Dose: 1 appl Documented By: SANDRA Ondansetron HCl (Ondansetron Hcl 4 Mg/2 Ml Vial) 4 mg IVPUSH Q8H PRN PRN Reason: Nausea and Vomiting Pantoprazole Sodium (Pantoprazole Sodium 40 Mg/10 Ml Vial) 40 mg IVPUSH BID@0630,1630 [facility] Last Admin: 06/02/25 06:34 Dose: 40 mg Documented By: SANDRA Sodium Chloride (0.9 % Sodium Chloride Flush 3 Ml Syringe) 3 ml IVFLUSH QSHIFT [facility] Last Admin: 06/02/25 03:38 Dose: 3 ml Documented By: SANDRA Labs 06/01/25 23:12 06/01/25 23:12 Labs: Laboratory Results - last 24 hr 05/27/25 06/01/25 06/01/25 05:12 07:23 08:16 MCV MCH MCHC RDW Plt Count MPV Immature Gran % (Auto) Neut % (Auto) Lymph % (Auto) [place] % (Auto) Eos % (Auto) Baso % (Auto) Lymph # (Auto) [place] # (Auto) Eos # (Auto) Baso # (Auto) Abs Immat Gran (auto) Absolute Neuts (auto) Absolute Nucleated RBC Nucleated RBC % (auto) Hold Purple Top SEE NOTE PT INR APTT Fibrinogen D-Dimer High Sensitivty O2 Saturation ABG pH at Pt Temp ABG pCO2 at Pt Temp ABG pO2 at Pt Temp ABG HCO3 ABG Base Excess (Actual) Anion Gap Estim Creat Clear Calc Estimated GFR POC Glucose 58 L* Random Glucose Calcium Magnesium 3.1 H Total Bilirubin AST ALT Alkaline Phosphatase Troponin I High Sens Total Protein Albumin TSH Proteinase 3 (PR3) Ab <1.0 Myeloperoxidase Ab <1.0 Blood Type Antibody Screen Crossmatch 06/01/25 06/01/25 06/01/25 08:35 10:03 11:30 MCV MCH MCHC RDW Plt Count MPV Immature Gran % (Auto) Neut % (Auto) Lymph % (Auto) [place] % (Auto) Eos % (Auto) Baso % (Auto) Lymph # (Auto) [place] # (Auto) Eos # (Auto) Baso # (Auto) Abs Immat Gran (auto) Absolute Neuts (auto) Absolute Nucleated RBC Nucleated RBC % (auto) Hold Purple Top PT 39.4 H INR 3.3 H APTT Fibrinogen D-Dimer High Sensitivty O2 Saturation ABG pH at Pt Temp ABG pCO2 at Pt Temp ABG pO2 at Pt Temp ABG HCO3 ABG Base Excess (Actual) Anion Gap Estim Creat Clear Calc Estimated GFR POC Glucose 120 H 131 H Random Glucose Calcium Magnesium Total Bilirubin AST ALT Alkaline Phosphatase Troponin I High Sens Total Protein Albumin TSH Proteinase 3 (PR3) Ab Myeloperoxidase Ab Blood Type Antibody Screen Crossmatch 06/01/25 06/01/25 06/01/25 15:17 15:56 21:28 MCV MCH MCHC RDW Plt Count MPV Immature Gran % (Auto) Neut % (Auto) Lymph % (Auto) [place] % (Auto) Eos % (Auto) Baso % (Auto) Lymph # (Auto) [place] # (Auto) Eos # (Auto) Baso # (Auto) Abs Immat Gran (auto) Absolute Neuts (auto) Absolute Nucleated RBC Nucleated RBC % (auto) Hold Purple Top PT 40.4 H INR 3.4 H APTT Fibrinogen D-Dimer High Sensitivty O2 Saturation ABG pH at Pt Temp ABG pCO2 at Pt Temp ABG pO2 at Pt Temp ABG HCO3 ABG Base Excess (Actual) Anion Gap Estim Creat Clear Calc Estimated GFR POC Glucose 120 H 106 Random Glucose Calcium Magnesium Total Bilirubin AST ALT Alkaline Phosphatase Troponin I High Sens Total Protein Albumin TSH Proteinase 3 (PR3) Ab Myeloperoxidase Ab Blood Type Antibody Screen Crossmatch 06/01/25 06/01/25 06/01/25 22:45 23:05 23:12 MCV 88.3 MCH 27.4 MCHC 31.0 RDW 18.8 H Plt Count 145 L MPV 10.2 Immature Gran % (Auto) 0.5 H Neut % (Auto) 68.0 Lymph % (Auto) 11.6 L [place] % (Auto) 14.6 H Eos % (Auto) 4.3 H Baso % (Auto) 1.0 Lymph # (Auto) 1.1 L [place] # (Auto) 1.4 H Eos # (Auto) 0.4 Baso # (Auto) 0.1 Abs Immat Gran (auto) 0.05 H Absolute Neuts (auto) 6.4 Absolute Nucleated RBC 0.020 H Nucleated RBC % (auto) 0.2 Hold Purple Top PT 39.5 H INR 3.3 H APTT 60.5 H* Fibrinogen 253 L D-Dimer High Sensitivty 1048 O2 Saturation 81.0 ABG pH at Pt Temp 7.46 H ABG pCO2 at Pt Temp 37 ABG pO2 at Pt Temp 54 L ABG HCO3 26 ABG Base Excess (Actual) 3.1 Anion Gap 23 H Estim Creat Clear Calc 9.7 Estimated GFR 8 POC Glucose 104 Random Glucose 95 Calcium 9.4 Magnesium Total Bilirubin 1.8 H AST 63 H ALT 21 Alkaline Phosphatase 168 H Troponin I High Sens 112.2 H* Total Protein 6.7 Albumin 4.8 TSH 2.69 Proteinase 3 (PR3) Ab Myeloperoxidase Ab Blood Type Antibody Screen Crossmatch 06/02/25 00:22 MCV MCH MCHC RDW Plt Count MPV Immature Gran % (Auto) Neut % (Auto) Lymph % (Auto) [place] % (Auto) Eos % (Auto) Baso % (Auto) Lymph # (Auto) [place] # (Auto) Eos # (Auto) Baso # (Auto) Abs Immat Gran (auto) Absolute Neuts (auto) Absolute Nucleated RBC Nucleated RBC % (auto) Hold Purple Top PT INR APTT Fibrinogen D-Dimer High Sensitivty O2 Saturation ABG pH at Pt Temp ABG pCO2 at Pt Temp ABG pO2 at Pt Temp ABG HCO3 ABG Base Excess (Actual) Anion Gap Estim Creat Clear Calc Estimated GFR POC Glucose Random Glucose Calcium Magnesium Total Bilirubin AST ALT Alkaline Phosphatase Troponin I High Sens Total Protein Albumin TSH Proteinase 3 (PR3) Ab Myeloperoxidase Ab Blood Type A Positive Antibody Screen NEGATIVE Crossmatch See Detail Assessment and Plan (1) Hyperprothrombinemia: Status: Acute (2) PREM (acute kidney injury): Status: Acute Plan 65 year old women initially admitted to ICU for Shortness of breath and feeling unwell overall. She was hypotensive in the ED and transferred to the ICU for vasopressor support due to poor initial response to IV fluids. Has declined since transfer to floor. Now laboratory evaluation suggestive of DIC along with some rectal bleeding 1. 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 Acute renal failure -renal function stabilized to 5.33 -initial plan was for temporary catheter and hemodialysis -at this time patient not a candidate; we will re-evaluate 1226. (urine output 1400) -follow renals/divalents 3..Acute respiratory failure secondary to volume overload -O2 requirement increased. -hold Bumex drip pending discussion with renal -follow renals/divalents 4.GI bleed (in backdrop no colitis on abd ct, negative cdiff of hyperprothrombinemia/question DIC) -melanomatous overnight -hemoglobin 7.5 overnight. 1 unit packed red cells ordered -follow H&H 5. Diabetes type 2 -acceptable control off therapy -lispro correctional scale -add back therapies when appropriate (intake increases) 6.UTI -fungal in nature -complete course of 7. Paroxysmal atrial fibrillation -currently examined sinus rhythm -hold Eliquis at this time secondary to bleeding -adjust therapies as clinically indicated DNR/DNI. Discussion with patient who is alert and oriented. 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 Expresses wishes for DNR DNI and palliative care. Attempted to explain to son Olvin over the phone however patient became agitated and hung up. States he is coming to the hospital. We will update when here. Son essentially told that despite our best therapies as mother continues to decline and these are her wishes. Quality Stroke Does the patient have a stroke diagnosis?: No VTE Prior VTE?: No VTE Risk Level:: Medical - moderate - high VTE Device Contraindication: Treatment Not Indicated VTE Drug Contraindication: N/A - Med Ordered
[2025-06-02] MEDS: diazePAM 10 MG/2 ML CARTRIDGE 2.5 MG IVPUSH ×5 (08:18→23:49)
[2025-06-02] MEDS: Lidocaine 4 % Patch ADH..PATCH 2 PATCH TRANSDERMA (08:19)
[2025-06-02] MEDS: Brimonidine Tartrate 0.2% Oph 5 ML BOTTLE 1 DROP EYE-BOTH ×2 (08:36→20:32)
[2025-06-02] MEDS: Dorzolamide HCl 2 % Ophth Sol 10 ML DRPBTL 1 DROP EYE-BOTH ×2 (08:36→20:33)
[2025-06-02 09:33] LABS: Glucose, Whole Blood 75 mg/dL (60-115)
--- NOTE | 2025-06-02 10:44 | PM.EVENT ---
Hematolgy consult called for probable DIC. 65 y/o woman with multiple medical problems readmitted for anuric real failure, found to have elevated coagulation studies with worsening anemia secondary to GI bleeding. Mildly reduced platelets and fibrinogen. Agree with probable diagnosis of DIC. Continue with blood transfusion support, vitamin K and FFP /cryoprecipitate as you are doing. No indication for platelet transfusion.Cryopreipitate is less volume with more concentrated factors than FFP in this pt with renal failure and GI bleeding. Treatment of underlying cause. Monitor CBC, LDH, coagulation profile daily. Avoid anticoagulation. Poor prognosis overall. Full note consult to follow. Thank you.
[2025-06-02 11:04] LABS: Glucose, Whole Blood 84 mg/dL (60-115)
[2025-06-02 16:20] LABS: Glucose, Whole Blood 66 mg/dL (60-115)
[2025-06-02 17:37] LABS: Glucose, Whole Blood 140 mg/dL (60-115)
[2025-06-02] MEDS: Latanoprost 0.005 % Ophth Sol 2.5 ML DROPS 1 DROP EYE-BOTH (20:32)
[2025-06-02 22:05] LABS: Glucose, Whole Blood 132 mg/dL (60-115)
[2025-06-03] VITALS (7 sets, daily range): BP systolic 133–161; BP diastolic 64–85; PULSE 51–64; RESP 16–20; TEMP 36.3–36.8; O2SAT 92–99
[2025-06-03] MEDS: diazePAM 10 MG/2 ML CARTRIDGE 2.5 MG IVPUSH ×4 (03:48→18:43)
[2025-06-03 06:47] LABS: Magnesium 3.0 mg/dL (1.6-2.6)
[2025-06-03 06:56] LABS: Partial Thromboplastin Time 49.8 SEC (26.7-34.1)
[2025-06-03] MEDS: Brimonidine Tartrate 0.2% Oph 5 ML BOTTLE 1 DROP EYE-BOTH ×2 (07:11→20:41)
[2025-06-03] MEDS: Dorzolamide HCl 2 % Ophth Sol 10 ML DRPBTL 1 DROP EYE-BOTH ×2 (07:11→20:41)
[2025-06-03] MEDS: 0.9 % Sodium Chloride Flush 3 ML SYRINGE IVFLUSH ×2 (07:12→18:43)
[2025-06-03 07:24] LABS: Glucose, Whole Blood 54 mg/dL (60-115)
[2025-06-03 08:04] LABS: Glucose, Whole Blood 197 mg/dL (60-115)
--- NOTE | 2025-06-03 10:34 | MHC.SL.SWA ---
Speech Pathologist Impression: Mild-Moderate oropharyngeal dysphagia Risk of Aspiration Due to: Current conditions (status not improving), reduced cognition, dentition status, adult FTT Dysphasia Diet Status: Recommend CONTINUE NDD2 (ground/mechanical), THIN liquids with 1:1 feed Liquid Consistency and Strategies for Safe Swallow: Liquid Intake Recommendation: Thin Liquid Intake Strategies: Solid Food Consistency: Dietary Recommendations: Grnd/Mech Altered (NDD2) Additional Modifications to Solid Foods: Oral Medication Intake: Crushed with Puree Please contact the pharmacy regarding appropriate crushable or liquid drug formulations that are available whenever modified delivery is recommended. Compensatory Strategies and Precautions to be Taken for Safe Swallow: Sitting Upright (90 deg) Small Bites and Sips Alternate Liquids/Solids Rate of Ingestion Change Supervision While Eating and Drinking for Safe Swallow: Total Assistance (1:1) Foods to Avoid: Difficult to chew solids. Swallowing Recommended Treatments: Compens. Strategy Educat. Recommendation for Speech: Inpatient Speech Therapy Comment: Patient seen for dysphagia follow-up. Per notes, status not improving. Patient seen with oxymask this date. Patient requesting jello and sprite. Oxymask removed for PO intake- oxygen saturation remaining in high 90s. Patient's diet order seen as NDD1, Thin liquids; REAL ESTATE LISTING CONSULTANT with recommendations of NDD2, Thin liquids. MD, RN, and RD notified of diet change, unknown reason for downgrade and patient's diet placed correctly in Expanse as NDD2, THIN liquids. Patient tolerating spoonfuls of jello and straw sips of sprite this date. Patient with no overt s/sx of penetration/aspiration. Patient continues with weak vocal quality; is aphonic at times, requiring her to repeat. Patient tolerating current diet, recommend CONTINUE NDD2, THIN liquids with 1:1 feeding assistance (can pre-load utensils if patient does not want full feed assist). REAL ESTATE LISTING CONSULTANT will continue to follow; patient likely at baseline given dentition status. Frequency/Duration: Date Range for Service Req: Timeline to reassess: [place] Clinican/Clinical Fellow: No Supervisory Statement: I have reviewed and agree with the student/clinical fellow's documentation: N/A Speech Language Pathologist: Sadia Salinas M.A., CCC-REAL ESTATE LISTING CONSULTANT
--- NOTE | 2025-06-03 10:43 | PM.HEMONCCN ---
Subjective - Subjective Chief complaint: Weakness Patient: new to practice Consult date: 06/03/25 Primary Care Provider: JANAK Cohen Architecture Technician Utilized?: No - Danish Speaking HPI - Consult Narrative Reason for consult: GI bleeding, probable DIC Narrative: Bella Shabazz is a 65 year old female with multiple medical problems including multiple sclerosis, CAD with stent, pulmonary embolism, paroxysmal atrial fibrillation, type 2 diabetes mellitus, acute renal failure, respiratory failure admitted to multiple hospitals including [facility] in [place] where she was for a month, readmitted at [facility] for hypotension. She required ICU care for vasopressor support. Patient was found to have melanotic stool on the floor, hemoglobin gradually dropped to 7.5 gram/dL. Coagulation profile showed elevated PT/PTT and slightly reduced fibrinogen level. Hematology consultation was called. Patient was given FFP and blood. Patient's son is at the bedside. Patient herself is unable to provide much history, she is confused and has altered mental status. Review of Systems - Neurologic Denies syncope [facility] Medical History: Medical History (Last Reviewed 05/30/25 @ 13:24 by Jesse Guerrero MD) Anemia Atrial fibrillation CAD (coronary artery disease) Chronic pain syndrome COPD (chronic obstructive pulmonary disease) Coronary atherosclerosis Depression Diabetes mellitus Elevated cholesterol Fibromyalgia Gitelman syndrome Heart valve regurgitation HTN (hypertension) Hypercalcemia Hypothyroid Mild asthma Multiple sclerosis Myocardial infarction Neuropathy Opioid dependence Orthostatic hypotension Polycystic ovarian syndrome PTSD (post-traumatic stress disorder) Pulmonary embolism Raynaud's disease Sleep apnea Thyroid nodule Type 2 diabetes mellitus Surgical History: Surgical History (Last Reviewed 05/30/25 @ 13:24 by Jesse Guerrero MD) History of colon resection History of lobectomy of thyroid History of rectal surgery Hx of appendectomy Hx of dilation and curettage Hx of heart artery stent Hx of hernia repair Hx of hysterectomy Hx of reduction mammoplasty Hx of tubal ligation S/P panniculectomy Social History: Social History (Last Reviewed 05/30/25 @ 13:24 by Jesse Guerrero MD) Living Situation History: Household Members: Children Household Members Other:: Jony Bah Housing: Apartment Are you a primary care connector to a significant other at home: No Do you presently have visiting nurse or other home services: Yes Tobacco History: Patient Tobacco Use Status: Former Tobacco user Tobacco use type: Cigarette Years Smoked: 40 Second Hand Smoke Exposure: No Occupation Assessmet: service: No Home Medications and Allergies Current Medications: Current Medications Amantadine HCl (Amantadine Hcl 100 Mg Capsule) 100 mg PO BID [facility] Last Admin: 06/03/25 07:11 Dose: 100 mg Artificial Tears (Artificial Tears 15 Ml Drops) 2 drop EYE-RIGHT Q4H PRN PRN Reason: Dry Eyes Brimonidine Tartrate (Brimonidine Tartrate 0.2% Oph 5 Ml Bottle) 1 drop EYE-BOTH BID [facility] Last Admin: 06/03/25 07:11 Dose: 1 drop Dextrose (Dextrose 50 % 25 Gm/50 Ml Syringe) 25 gm IVPUSH Q15M PRN; Protocol PRN Reason: per Hypoglycemia Standing Ord. Last Admin: 06/03/25 07:11 Dose: 25 gm Diazepam (Diazepam 5 Mg Tablet) 5 mg PO Q8H PRN PRN Reason: Anxiety/spasm Diazepam (Diazepam 10 Mg/2 Ml Cartridge) 2.5 mg IVPUSH Q4H [facility] Last Admin: 06/03/25 07:12 Dose: 2.5 mg Dorzolamide HCl (Dorzolamide Hcl 2 % Ophth Doris 10 Ml Drpbtl) 1 drop EYE-BOTH BID [facility] Last Admin: 06/03/25 07:11 Dose: 1 drop Fluconazole (Fluconazole 100 Mg Tablet) 100 mg PO DAILY [facility] Stop: 06/12/25 11:59 Last Admin: 06/03/25 07:11 Dose: 100 mg Bumetanide 25 mg/ IV (Miscellaneous Supplies) 100 mls @ 2 mls/hr IVCONT .Q24H [facility] On Hold: 06/02/25 00:50 Last Infusion: 06/02/25 02:16 Dose: 0 mg/hr, 0 mls/hr Insulin Human Lispro (Insulin Lispro 100 Unit/Ml 3 Ml Vial) 0 unit SUBCUT QIDACHS [facility]; Protocol Last Admin: 06/03/25 07:06 Dose: Not Given Latanoprost (Latanoprost 0.005 % Ophth Doris 2.5 Ml Drops) 1 drop EYE-BOTH BEDTIME [facility] Last Admin: 06/02/25 20:32 Dose: 1 drop Levothyroxine Sodium (Levothyroxine Sodium 75 Mcg Tablet) 75 mcg PO DAILY@0600 [facility] Last Admin: 06/03/25 06:15 Dose: 75 mcg Lidocaine (Lidocaine 4 % Patch Adh..Patch) 2 patch TRANSDERMA DAILY [facility]; Protocol Last Admin: 06/03/25 07:12 Dose: Not Given Metolazone (Metolazone 5 Mg Tablet) 5 mg PO DAILY [facility] On Hold: 06/02/25 00:56 Last Admin: 06/01/25 08:29 Dose: 5 mg Morphine Sulfate (Morphine Sulfate 4 Mg/Ml Cartridge) 2 mg IVPUSH Q2H PRN; Protocol PRN Reason: anxiety/restlessness Last Admin: 06/02/25 22:09 Dose: 2 mg Multi-Ingred Cream/Lotion/Oil/Oint (Artificial Tears Ophth Oint 3.5 Gm Tube) 1 appl EYE-BOTH TID PRN; Protocol PRN Reason: Dry Eyes Last Admin: 06/02/25 20:32 Dose: 1 appl Ondansetron HCl (Ondansetron Hcl 4 Mg/2 Ml Vial) 4 mg IVPUSH Q8H PRN PRN Reason: Nausea and Vomiting Pantoprazole Sodium (Pantoprazole Sodium 40 Mg/10 Ml Vial) 40 mg IVPUSH BID@0630,1630 [facility] Last Admin: 06/03/25 06:15 Dose: 40 mg Sodium Chloride (0.9 % Sodium Chloride Flush 3 Ml Syringe) 3 ml IVFLUSH [facility] Last Admin: 06/03/25 07:12 Dose: 3 ml Home Medications ?Medication ?Instructions ?Recorded ?Confirmed ?Type amantadine HCl 100 mg capsule 100 mg PO BID 12/13/22 05/25/25 History apixaban 5 mg tablet (Eliquis) 5 mg PO BID 12/13/22 05/25/25 History brimonidine 0.2 % eye drops 1 drp ophthalmic (eye) BID 12/13/22 05/25/25 History dorzolamide 2 % eye drops 1 drp ophthalmic (eye) BID 12/13/22 05/25/25 History montelukast 10 mg tablet 10 mg PO DAILY 12/13/22 05/25/25 History sildenafil (pulm.hypertension) 20 20 mg PO TID 12/13/22 05/25/25 History mg tablet albuterol sulfate 2.5 mg/3 mL 2.5 mg inhalation Q6H PRN Wheezing 04/17/25 05/25/25 History (0.083 %) solution for nebulization aspirin 81 mg chewable tablet 81 mg PO DAILY 04/17/25 05/25/25 History camphor-menthol 0.5 %-0.5 % lotion 1 appl topical BID PRN Itching 04/17/25 05/25/25 History dextroamphetamine-amphetamine 30 30 mg PO DAILY 04/17/25 05/25/25 History mg tablet (Adderall) diazepam 5 mg tablet 5 mg PO Q8H PRN Anxiety/spasm 04/17/25 05/25/25 History diclofenac sodium 1 % topical gel 2 g topical QID 04/17/25 05/25/25 History dulaglutide 3 mg/0.5 mL 3 mg subcut TU@0900 04/17/25 05/25/25 History subcutaneous [facility] latanoprost 0.005 % eye drops 1 drp ophthalmic (eye) BEDTIME 04/17/25 05/25/25 History levothyroxine 75 mcg tablet 75 mcg PO DAILY@0600 04/17/25 05/25/25 History lidocaine 4 % topical patch 2 patch topical DAILY 04/17/25 05/25/25 History multivitamin with minerals 1 tab PO DAILY 04/17/25 05/25/25 History sodium chloride 7 % for 1 inh inhalation BID 04/17/25 05/25/25 History nebulization thiamine HCl (vitamin B1) 100 mg 100 mg PO DAILY 04/17/25 05/25/25 History tablet furosemide 40 mg tablet (Lasix) 40 mg PO BID@0900,1700 05/25/25 05/25/25 History pantoprazole 20 mg tablet,delayed 20 mg PO DAILY@0630 PRN Gastric 05/25/25 05/25/25 History release Reflux Allergies Allergy/AdvReac Type Severity Reaction Status Date / Time diphenhydramine (From Allergy Severe Anaphylaxis Verified 05/25/25 14:38 Benadryl) Penicillins Allergy Severe Anaphylaxis Verified 05/25/25 14:38 Sulfa (Sulfonamide Allergy Severe Anaphylaxis Verified 05/25/25 14:38 Antibiotics) clarithromycin Allergy Intermediate Shortness Verified 05/25/25 14:38 of Breath gabapentin Allergy Intermediate Confusion Verified 05/25/25 14:38 hydrochlorothiazide (From Allergy Intermediate Shortness Verified 05/25/25 14:38 Hyzaar) of Breath levofloxacin (From Levaquin) Allergy Intermediate dizziness/h Verified 05/25/25 14:38 eadache/ulices sea losartan (From Cozaar) Allergy Intermediate Shortness Verified 05/25/25 14:38 of Breath metformin Allergy Intermediate strange Verified 05/25/25 14:38 feeling amoxicillin (From Augmentin) Allergy Unknown Unknown Verified 05/03/25 14:31 clavulanic acid (From Allergy Unknown Unknown Verified 05/03/25 14:31 Augmentin) duloxetine (From Cymbalta) Allergy Unknown Unknown Verified 05/03/25 14:31 fluoxetine Allergy Unknown Unknown Verified 05/03/25 14:31 NSAIDS (Non-Steroidal Allergy Unknown Unknown Verified 05/03/25 14:31 Anti-Inflamma pregabalin AdvReac Intermediate Dizziness Verified 05/03/25 14:31 doxycycline AdvReac Mild Gastrointestinal Verified 05/03/25 14:31 Upset Physical Exam Vital signs: Vital Signs Temp 98.0 F 06/03/25 07:26 Pulse 52 06/03/25 07:26 Resp 18 06/03/25 07:26 BP 157/72 H 06/03/25 07:26 Pulse Ox 99 06/03/25 07:26 O2 Del Method Oxymask 06/03/25 07:26 O2 Flow Rate 11 06/03/25 07:26 FiO2 35 05/29/25 09:30 Intake & Output 06/02/25 06/03/25 06/03/25 18:59 06:59 18:59 Intake Total 1067 / 1467 400 / 1467 Output Total 960 / 1440 480 / 1440 Balance 107 / 27 -80 / 27 Urine Output (Average ml/kg/hr) 0.92 0.46 0.46 Intake: Intake, Oral Amount 100 / 150 50 / 150 Intake (Blood Product) Amount 767 / 1117 350 / 1117 Red Blood Cells (E0336) Unit 0 / 350 350 / 350 [id number] Red Blood Cells (E0336) Unit 350 / 350 [id number] Thawed Cryoprecipitate (E3591) 96 / 96 Unit [id number] Thawed Plasma (E2684) Unit 321 / 321 [id number] Intake, IV Amount 200 / 200 Albumin Human 25 % 100 ml @ 100 200 / 200 mls/hr IV Q6H [facility] Rx#: [id number] Output: Output, Urine Amount 540 / 540 Output, Urine Amount (Catheter) 420 / 900 480 / 900 Female External 420 / 900 480 / 900 Other: Meal Refused No NPO No Breakfast % Eaten 0% Lunch % Eaten 0% Eating (Feeding) Ability 1:1 Feed Urine F/C Urine Color Yellow Yellow Last Bowel Movement 06/02/25 06/01/25 Weight 86.5 kg - Constitutional Present: chronically ill appearing - Routine HEENT Exam Head: Present: normal inspection Eye: Present: conjunctivae pale - Routine Respiratory Exam Present: accessory muscle use. Absent: rhonchi, wheezes Hem/Onc Consult Result - Labs CBC & Chem 7: 06/03/25 12:21 06/01/25 23:12 Assessment and Plan Patient Active problem list reviewed?: Yes (1) Coagulopathy Status: Acute Assessment and plan: 1. This is a 65 year old female with multiple medical problems including multiple sclerosis, CAD with stent, pulmonary embolism, paroxysmal atrial fibrillation, type 2 diabetes mellitus, acute renal failure, respiratory failure admitted to multiple hospitals including [facility] in [place] where she was for a month, readmitted at [facility] for hypotension. She required ICU care for vasopressor support. Patient was found to have melanotic stool on the floor, hemoglobin gradually dropped to 7.5 gram/dL. Coagulation profile showed elevated PT/PTT and slightly reduced fibrinogen level. Platelet counts only mildly reduced. Her kidney functions remain poor as she has not been dialyzed. Hematology consultation was called. Patient was given FFP and blood. Blood counts today show appropriate response to blood transfusion. Hemoglobin today is 9.6 g per dL, INR is 2.8 and APTT 51.9 seconds after FFP. She has mild DIC. Hold off further blood products. Patient's son is contemplating taking the patient home with hospice care. Given the extremely poor prognosis, he was encouraged to meet with social services technician/case management. - Time Spent With Patient Time Spent with Patient (in minutes): 20
[2025-06-03 11:35] LABS: Glucose, Whole Blood 154 mg/dL (60-115)
[2025-06-03 12:36] LABS: MANUAL DIFF FLAG NO
[2025-06-03 12:39] LABS: Hematocrit 30.5 % (37.0-47.0); Hemoglobin 9.6 g/dl (12.0-16.0); Imm Gran Abs Auto 0.10 X10*3/uL (0.00-0.03); Imm Gran Pct Auto 0.9 % (0.0-0.4); Lymphocytes Absolute Auto 1.0 X10*3/uL (1.2-4.9); Mean Corpuscular HGB Conc 31.5 g/dl (31.0-35.0); Mean Corpuscular Hemoglobin 27.7 pg (27.0-33.0); Mean Corpuscular Volume 87.9 fL (80.0-98.0); NRBC Abs Auto 0.040 X10*3/uL (0.0-0.012); NRBC Pct Auto 0.4 /100WBC (0.0-0.2); Platelet Count 154 X10*3/uL (160-400); Red Blood Count 3.47 X10*6/uL (4.20-5.50); White Blood Count 11.4 X10*3/uL (4.8-10.8)
[2025-06-03 12:45] LABS: Fibrinogen 299 MG/DL (259-690); INTERNATIONAL NORM RATIO 2.8 (0.9-1.1); Prothrombin Time 33.3 SEC (11.2-13.5)
[2025-06-03 12:48] LABS: Partial Thromboplastin Time 51.9 SEC (26.7-34.1)
[2025-06-03 13:08] LABS: Alanine Aminotransferase 22 U/L (0-31); Albumin Level 4.7 g/dL (3.5-5.0); Alkaline Phosphatase 158 U/L (39-117); Anion Gap 24 (12-20); Aspartate Amino Transferase 59 U/L (5-31); Blood Urea Nitrogen 92 mg/dL (9-16); Calcium 9.7 mg/dL (8.4-10.2); Carbon Dioxide 22 mmol/L (22-29); Chloride 99 mmol/L (96-108); Creatinine Clr Calc Pharmacy 10.5; Estimated Glomerular Filt Rate 8; Potassium 3.6 mmol/L (3.3-5.1); Sodium 141 mmol/L (135-145); Total Protein 6.8 g/dL (6.5-8.0)
--- NOTE | 2025-06-03 14:47 | MHC.CM.PN ---
Pt continues to require acute care. DCP is TBD, may be home with Hospice care, CM to follow for DC needs.
--- NOTE | 2025-06-03 15:07 | P.PNIM_ITS ---
Subjective Subjective Date of Service: 06/03/25 Interval History: Large bloody bowel movement noted by nursing staff. Patient continues to decline Review of Systems Unable to obtain secondary to mild confusion Physical Exam 2 Vital Signs: Vital Signs: Last Vital Signs Temp 98.0 F 06/03/25 11:38 Pulse 52 06/03/25 11:38 Resp 20 06/03/25 11:38 BP 136/64 06/03/25 11:38 Pulse Ox 97 06/03/25 11:38 O2 Del Method Oxymask 06/03/25 11:38 O2 Flow Rate 11 06/03/25 11:38 FiO2 35 05/29/25 09:30 Oxygen Flow Rate 4 06/01/25 22:48 BMI result Body Mass Index 34.9 Const: Other: Awake responsive but difficulty speaking. Ill-appearing. Resp: Other: Diminished at bases scattered wheezes throughout Cardio: Other: No S4; positive S1-S2; no S3 murmurs rubs or gallops GI: Other: Soft nontender nondistended normoactive bowel sounds Skin: Other: Multiple ecchymotic area upper limbs and lower limbs; fingertips purple (history of Raynaud's disease) Extrem: Other: No edema bilaterally Objective Data Active Medications Amantadine HCl (Amantadine Hcl 100 Mg Capsule) 200 mg PO Fr@0900 [facility] Artificial Tears (Artificial Tears 15 Ml Drops) 2 drop EYE-RIGHT Q4H PRN PRN Reason: Dry Eyes Brimonidine Tartrate (Brimonidine Tartrate 0.2% Oph 5 Ml Bottle) 1 drop EYE- BOTH BID [facility] Last Admin: 06/03/25 07:11 Dose: 1 drop Documented By: HERMILO Dextrose (Dextrose 50 % 25 Gm/50 Ml Syringe) 25 gm IVPUSH Q15M PRN; Protocol PRN Reason: per Hypoglycemia Standing Ord. Last Admin: 06/03/25 07:11 Dose: 25 gm Documented By: HERMILO Diazepam (Diazepam 5 Mg Tablet) 5 mg PO Q8H PRN PRN Reason: Anxiety/spasm Diazepam (Diazepam 10 Mg/2 Ml Cartridge) 2.5 mg IVPUSH Q4H [facility] Last Admin: 06/03/25 11:28 Dose: 2.5 mg Documented By: HERMILO Dorzolamide HCl (Dorzolamide Hcl 2 % Ophth Doris 10 Ml Drpbtl) 1 drop EYE-BOTH BID [facility] Last Admin: 06/03/25 07:11 Dose: 1 drop Documented By: HERMILO Fluconazole (Fluconazole 100 Mg Tablet) 100 mg PO DAILY [facility] Stop: 06/12/25 11:59 Last Admin: 06/03/25 07:11 Dose: 100 mg Documented By: HERMILO Bumetanide 25 mg/ IV (Miscellaneous Supplies) 100 mls @ 2 mls/hr IVCONT .Q24H [facility] On Hold: 06/02/25 00:50 Last Infusion: 06/03/25 12:34 Dose: Infused Documented By: HERMILO Insulin Human Lispro (Insulin Lispro 100 Unit/Ml 3 Ml Vial) 0 unit SUBCUT QIDACHS [facility]; Protocol Last Admin: 06/03/25 11:15 Dose: Not Given Documented By: HERMILO Non-Admin Reason: patient not eating Latanoprost (Latanoprost 0.005 % Ophth Doris 2.5 Ml Drops) 1 drop EYE-BOTH BEDTIME [facility] Last Admin: 06/02/25 20:32 Dose: 1 drop Documented By: SANDRA Levothyroxine Sodium (Levothyroxine Sodium 75 Mcg Tablet) 75 mcg PO DAILY@0600 [facility] Last Admin: 06/03/25 06:15 Dose: 75 mcg Documented By: SANDRA Lidocaine (Lidocaine 4 % Patch Adh..Patch) 2 patch TRANSDERMA DAILY [facility]; Protocol Last Admin: 06/03/25 07:12 Dose: Not Given Documented By: HERMILO Non-Admin Reason: Patient Refused Metolazone (Metolazone 5 Mg Tablet) 5 mg PO DAILY [facility] On Hold: 06/02/25 00:56 Last Admin: 06/01/25 08:29 Dose: 5 mg Documented By: CRESENCIO Morphine Sulfate (Morphine Sulfate 4 Mg/Ml Cartridge) 2 mg IVPUSH Q2H PRN; Protocol PRN Reason: anxiety/restlessness Last Admin: 06/03/25 13:59 Dose: 2 mg Documented By: HERMILO Multi-Ingred Cream/Lotion/Oil/Oint (Artificial Tears Ophth Oint 3.5 Gm Tube) 1 appl EYE-BOTH TID PRN; Protocol PRN Reason: Dry Eyes Last Admin: 06/02/25 20:32 Dose: 1 appl Documented By: SANDRA Ondansetron HCl (Ondansetron Hcl 4 Mg/2 Ml Vial) 4 mg IVPUSH Q8H PRN PRN Reason: Nausea and Vomiting Pantoprazole Sodium (Pantoprazole Sodium 40 Mg/10 Ml Vial) 40 mg IVPUSH BID@0630,1630 [facility] Last Admin: 06/03/25 06:15 Dose: 40 mg Documented By: SANDRA Sodium Chloride (0.9 % Sodium Chloride Flush 3 Ml Syringe) 3 ml IVFLUSH QSHIFT [facility] Last Admin: 06/03/25 07:12 Dose: 3 ml Documented By: HERMILO Labs 06/03/25 12:21 06/03/25 12:21 Labs: Laboratory Results - last 24 hr 06/02/25 06/02/25 06/02/25 00:22 16:16 17:33 MCV MCH MCHC RDW Plt Count MPV Immature Gran % (Auto) Neut % (Auto) Lymph % (Auto) Grayson % (Auto) Eos % (Auto) Baso % (Auto) Lymph # (Auto) Grayson # (Auto) Eos # (Auto) Baso # (Auto) Abs Immat Gran (auto) Absolute Neuts (auto) Absolute Nucleated RBC Nucleated RBC % (auto) PT INR APTT Fibrinogen Anion Gap Estim Creat Clear Calc Estimated GFR POC Glucose 66 140 H Random Glucose Calcium Magnesium Total Bilirubin AST ALT Alkaline Phosphatase Total Protein Albumin Blood Type A Positive Antibody Screen NEGATIVE Crossmatch See Detail 06/02/25 06/03/25 06/03/25 20:25 05:37 06:58 MCV MCH MCHC RDW Plt Count MPV Immature Gran % (Auto) Neut % (Auto) Lymph % (Auto) Grayson % (Auto) Eos % (Auto) Baso % (Auto) Lymph # (Auto) Grayson # (Auto) Eos # (Auto) Baso # (Auto) Abs Immat Gran (auto) Absolute Neuts (auto) Absolute Nucleated RBC Nucleated RBC % (auto) PT INR APTT 49.8 H Fibrinogen Anion Gap Estim Creat Clear Calc Estimated GFR POC Glucose 132 H 54 L* Random Glucose Calcium Magnesium 3.0 H Total Bilirubin AST ALT Alkaline Phosphatase Total Protein Albumin Blood Type Antibody Screen Crossmatch 12/06/03/25 06/03/25 08:01 11:14 12:21 MCV 87.9 MCH 27.7 MCHC 31.5 RDW 18.6 H Plt Count 154 L MPV 10.7 Immature Gran % (Auto) 0.9 H Neut % (Auto) 76.6 H Lymph % (Auto) 8.6 L Grayson % (Auto) 11.4 H Eos % (Auto) 1.7 Baso % (Auto) 0.8 Lymph # (Auto) 1.0 L Grayson # (Auto) 1.3 H Eos # (Auto) 0.2 Baso # (Auto) 0.1 Abs Immat Gran (auto) 0.10 H Absolute Neuts (auto) 8.7 H Absolute Nucleated RBC 0.040 H Nucleated RBC % (auto) 0.4 H PT 33.3 H INR 2.8 H APTT 51.9 H Fibrinogen 299 Anion Gap 24 H Estim Creat Clear Calc 10.5 Estimated GFR 8 POC Glucose 197 H 154 H Random Glucose 173 H Calcium 9.7 Magnesium Total Bilirubin 3.7 H AST 59 H ALT 22 Alkaline Phosphatase 158 H Total Protein 6.8 Albumin 4.7 Blood Type Antibody Screen Crossmatch Assessment and Plan (1) Hyperprothrombinemia: Status: Acute (2) Bright red rectal bleeding: Status: Acute Plan 65 year old women initially admitted to ICU for Shortness of breath and feeling unwell overall. She was hypotensive in the ED and transferred to the ICU for vasopressor support due to poor initial response to IV fluids. Has declined since transfer to floor. Now laboratory evaluation suggestive of DIC along with some rectal bleeding 1. 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 No further blood products are indicated 2. Acute renal failure -renal function continues to improve only slightly -not a candidate for dialysis at this time --renal to follow -follow renals/divalents 3..Acute respiratory failure secondary to volume overload -O2 requirement increased. -hold Bumex drip pending discussion with renal -follow renals/divalents 4.GI bleed (in backdrop no colitis on abd ct, negative cdiff of hyperprothrombinemia/question DIC) -melanomatous overnight -hemoglobin 7.5 overnight. 1 unit packed red cells ordered -follow H&H 5. Diabetes type 2 -acceptable control off therapy -lispro correctional scale -add back therapies when appropriate (intake increases) 6.UTI -fungal in nature -complete course of 7. Paroxysmal atrial fibrillation -currently examined sinus rhythm -hold Eliquis at this time secondary to bleeding -adjust therapies as clinically indicated DNR/DNI. Discussion with patient who is alert and oriented. 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 Expresses wishes for DNR DNI and palliative care. Attempted to explain to son Olvin over the phone however patient became agitated and hung up. States he is coming to the hospital. We will update when here. Son essentially told that despite our best therapies as mother continues to decline and these are her wishes. Quality Stroke Does the patient have a stroke diagnosis?: No VTE Prior VTE?: No VTE Risk Level:: Medical - moderate - high VTE Device Contraindication: Treatment Not Indicated VTE Drug Contraindication: N/A - Med Ordered
--- NOTE | 2025-06-03 16:12 | MHC.CM.PN ---
Addendum entered by Daniella Ferris 06/04/25 16:21: CM RECEIVED A MESSAGE THAT PTS SON/HCP, SULAIMAN [phone] WAS REQUESTING A CALL. CM CALLED SULAIMAN WHO REPORTS HE IS HAVING A HARD TIME, HE SAYS HE KNOWS THE PT IS DYING BUT ALSO DOES NOT WANT TO LOSE HER HE STATES HE WAS ALSO TOLD SHE WAS GETTING BETTER, SO DOES NOT UNDERSTAND HOW SHE COULD BE GETTING BETTER AND NEED HOSPICE. HE ASKED ABOUT THE LOGISTICS OF SETTING UP HOSPICE WHICH WERE EXPLAINED HE SAYS HE MISSED THE HOSPITALISTS VISIT FOR TWO DAYS, SO WENT EARLY TODAY, BUT THEN FORGOT ALL OF HIS QUESTIONS ONCE THEY CAME. HE ALSO NOTES HE THOUGHT THE PT COULD STAY LONGER, HE SAYS HE WAS TOLD A WHILE, WHICH HE THOUGHT WOULD BE AT LEAST A WEEK CM REMINDED HIM THAT THE HAS BEEN HERE FOR 10 DAYS, SHE HAS BEEN VOCAL ABOUT WANTING TO BE HOME AND WOULD NOT NEED FURTHER INPT CARE IF SHE CHOOSES HOSPICE HE WAS ALSO ENCOURAGED TO SIT WITH FAMILY/SUPPORTS, AND WRITE DOWN ANY QUESTIONS HE HAS FOR THE PROVIDER HE WILL LET THE PTS RN KNOW WHEN HE ARRIVES TOMORROW AND HOPES TO MEET WITH CM AND HOSPITALIST Original Note: PT SLEEPING, CM MET WITH SON AT BEDSIDE HE REPORTS HE KNOWS THE PT IS DYING, BUT SHE IS NOT READY HE SAYS SHE IS SCARED BUT ALSO WORRIED ABOUT HELPING HIM AND HIS HE SAYS HIS COUSINS AND HIS ARE COMING IN SOON AND THEY WILL TALK ABOUT PTS CONDITION HE UNDERSTANDS THE PT WILL NEED TO MAKE HER DECISIONS ULTIMATELY CM WILL FOLLOW UP WITH PT TOMORROW
--- NOTE | 2025-06-03 16:28 | MHC.CLN ---
F/U PT WITH INCREASED NUTRITION RISK R/T PRESSURE INJURY PO INTAKE POOR DIET ADVANCED TO GROUND PER LAND MEASURER SKIN WITH STAGE II PRESSURE INJURY TO COCCYX WILL RE-START ENSURE MAX BID TO PROVIDE 300KCALS, 60G PROTEIN MONITOR PO AND ENCOURAGE SUPPLEMENTS
[2025-06-03 16:37] LABS: Glucose, Whole Blood 88 mg/dL (60-115)
--- NOTE | 2025-06-03 17:35 | P.PNNP_ITS ---
Subjective Subjective Date of Service: 06/03/25 Principal diagnosis: Decompensated heart failure, renal failure Interval history: Mental status and respiratory status better when compared to yesterday Asking more questions like what so numbers, worse her GFR today Her dyspnea has slightly improved Creatinine has slightly improved, urine output 1440 mL yesterday, net-320 cc Physical Exam 2 Vital Signs: Vital Signs: Last Vital Signs Temp 98.2 F 06/03/25 16:00 Pulse 51 06/03/25 16:00 Resp 16 06/03/25 16:00 BP 149/75 H 06/03/25 16:00 Pulse Ox 96 06/03/25 16:00 O2 Del Method Nasal Cannula 06/03/25 16:00 O2 Flow Rate 2 06/03/25 16:00 FiO2 35 05/29/25 09:30 Oxygen Flow Rate 4 06/01/25 22:48 BMI result Body Mass Index 34.9 General: Elderly lady in moderate distress, she is chronically ill appearing Nutritional Appearance: well nourished and overweight Eyes: appearance normal, both eyes and all related structures; Alignment and Position: alignment normal and position normal Neck: No lymphadenopathy, no thyromegaly Resp: bilateral air entry equal, bilateral crackles heard Cardio: Regular rate, regular rhythm; Heart sounds: S1 normal heart sound present and S2 normal heart sound present GI: soft, nontender, no guarding, no hepatosplenomegaly : bladder normal to inspection, bladder normal to palpation, no renal angle tenderness Skin: no rashes or lesions noted and elasticity normal Neuro: alert, oriented , moves all extremities Objective Data Labs 06/03/25 12:21 06/03/25 12:21 Labs: Laboratory Results - last 24 hr 06/02/25 06/02/25 06/02/25 00:22 17:33 20:25 WBC RBC Hgb Hct MCV MCH MCHC RDW Plt Count MPV Immature Gran % (Auto) Neut % (Auto) Lymph % (Auto) [place] % (Auto) Eos % (Auto) Baso % (Auto) Lymph # (Auto) [place] # (Auto) Eos # (Auto) Baso # (Auto) Abs Immat Gran (auto) Absolute Neuts (auto) Absolute Nucleated RBC Nucleated RBC % (auto) PT INR APTT Fibrinogen Sodium Potassium Chloride Carbon Dioxide Anion Gap BUN Creatinine Estim Creat Clear Calc Estimated GFR POC Glucose 140 H 132 H Random Glucose Calcium Magnesium Total Bilirubin AST ALT Alkaline Phosphatase Total Protein Albumin Blood Type A Positive Antibody Screen NEGATIVE Crossmatch See Detail 06/03/25 06/03/25 06/03/25 05:37 06:58 08:01 WBC RBC Hgb Hct MCV MCH MCHC RDW Plt Count MPV Immature Gran % (Auto) Neut % (Auto) Lymph % (Auto) [place] % (Auto) Eos % (Auto) Baso % (Auto) Lymph # (Auto) [place] # (Auto) Eos # (Auto) Baso # (Auto) Abs Immat Gran (auto) Absolute Neuts (auto) Absolute Nucleated RBC Nucleated RBC % (auto) PT INR APTT 49.8 H Fibrinogen Sodium Potassium Chloride Carbon Dioxide Anion Gap BUN Creatinine Estim Creat Clear Calc Estimated GFR POC Glucose 54 L* 197 H Random Glucose Calcium Magnesium 3.0 H Total Bilirubin AST ALT Alkaline Phosphatase Total Protein Albumin Blood Type Antibody Screen Crossmatch 06/03/25 06/03/25 06/03/25 11:14 12:21 16:34 WBC 11.4 H RBC 3.47 L D Hgb 9.6 L D Hct 30.5 L D MCV 87.9 MCH 27.7 MCHC 31.5 RDW 18.6 H Plt Count 154 L MPV 10.7 Immature Gran % (Auto) 0.9 H Neut % (Auto) 76.6 H Lymph % (Auto) 8.6 L [place] % (Auto) 11.4 H Eos % (Auto) 1.7 Baso % (Auto) 0.8 Lymph # (Auto) 1.0 L [place] # (Auto) 1.3 H Eos # (Auto) 0.2 Baso # (Auto) 0.1 Abs Immat Gran (auto) 0.10 H Absolute Neuts (auto) 8.7 H Absolute Nucleated RBC 0.040 H Nucleated RBC % (auto) 0.4 H PT 33.3 H INR 2.8 H APTT 51.9 H Fibrinogen 299 Sodium 141 Potassium 3.6 Chloride 99 Carbon Dioxide 22 Anion Gap 24 H BUN 92 H Creatinine 5.27 H* Estim Creat Clear Calc 10.5 Estimated GFR 8 POC Glucose 154 H 88 Random Glucose 173 H Calcium 9.7 Magnesium Total Bilirubin 3.7 H AST 59 H ALT 22 Alkaline Phosphatase 158 H Total Protein 6.8 Albumin 4.7 Blood Type Antibody Screen Crossmatch Microbiology Microbiology Results: Microbiology 05/25/25 17:46 Blood - Venous Blood Culture - Final No growth after 5 days. 05/25/25 17:36 Blood - Venous Blood Culture - Final No growth after 5 days. 05/25/25 20:59 Urine clean catch Urine Culture - Final Geovanna glabrata Procedures Date of Service Date of Service: 06/03/25 Assessment & Plan Assessment and plan (1) PREM (acute kidney injury): Status: Acute (2) Hypokalemia: Status: Acute Plan 65-year-old lady with underlying multiple sclerosis with spasms, CAD status post LAD stenting, subdural hematoma, chronic kidney disorder, pulmonary emboli, AFib on Eliquis with tachy-dalia syndrome status post pacemaker, CVA, type 2 diabetes mellitus, Raynaud's admitted on 05/25/2025 with malaise, acute kidney injury in the setting of hypotension needing vasopressor support. Acute kidney injury: Apparently patient has been hospitalized since the beginning of March initially at [facility] later transferred to [facility] from there was discharged to a rehab, and later at [facility]. This time admitted due to PREM in the setting of septic shock possibly secondary to acute tubular necrosis, she had similar presentation when she was at [facility] but unclear if she received any renal replacement therapy. CT abdomen and pelvis showed normal size kidneys, no obstruction. Urinalysis showing 3+ blood, 3+ protein, greater than 20 RBC, greater than 50 WBCs possibly due to UTI,UPCR less than 1 g. Her creatinine has stabilized her slowly improving, down to 5.27 from a peak of 5.72, urine output has increased to about 1450 mL. We will stop continuous Bumex drip and switch to Lasix 80 mg b.i.d. which might help her ease of breathing. No emergent indication for renal replacement therapy. Given that she is hospitalized for over 3 months now, she is malnourished and cachectic, given her overall deconditioning and comorbid conditions it is less likely the patient would tolerate renal replacement therapy and would not change her overall survival; she has a very poor prognosis and this has been explained in detail to patient and the family. Hypokalemia: Secondary to diuresis Time Spent With Patient Time: Total time managing care of this patient today ____ minutes. Progress Note: Quality Stroke Does the patient have a stroke diagnosis?: No
[2025-06-03] MEDS: Furosemide 100 MG/10 ML VIAL 80 MG IVPUSH (18:42)
[2025-06-03 20:09] LABS: Glucose, Whole Blood 161 mg/dL (60-115)
[2025-06-03] MEDS: Phytonadione (Vit K1) Oral 10 MG/ML AMPUL PO (20:36)
[2025-06-03] MEDS: Latanoprost 0.005 % Ophth Sol 2.5 ML DROPS 1 DROP EYE-BOTH (20:41)
[2025-06-04] VITALS (11 sets, daily range): BP systolic 119–156; BP diastolic 62–80; PULSE 51–54; RESP 16–20; TEMP 36.1–36.5; O2SAT 87–100; BMI 34.6
[2025-06-04] MEDS: diazePAM 10 MG/2 ML CARTRIDGE 2.5 MG IVPUSH ×4 (00:31→11:16)
[2025-06-04] MEDS: 0.9 % Sodium Chloride Flush 3 ML SYRINGE IVFLUSH ×3 (00:32→16:21)
[2025-06-04 06:11] LABS: MANUAL DIFF FLAG NO
[2025-06-04 06:21] LABS: Hematocrit 30.2 % (37.0-47.0); Hemoglobin 9.7 g/dl (12.0-16.0); Imm Gran Abs Auto 0.09 X10*3/uL (0.00-0.03); Imm Gran Pct Auto 0.8 % (0.0-0.4); Lymphocytes Absolute Auto 1.3 X10*3/uL (1.2-4.9); Mean Corpuscular HGB Conc 32.1 g/dl (31.0-35.0); Mean Corpuscular Hemoglobin 28.3 pg (27.0-33.0); Mean Corpuscular Volume 88.0 fL (80.0-98.0); NRBC Abs Auto 0.030 X10*3/uL (0.0-0.012); NRBC Pct Auto 0.3 /100WBC (0.0-0.2); Platelet Count 155 X10*3/uL (160-400); Red Blood Count 3.43 X10*6/uL (4.20-5.50); White Blood Count 11.9 X10*3/uL (4.8-10.8)
[2025-06-04 06:29] LABS: INTERNATIONAL NORM RATIO 2.3 (0.9-1.1); Prothrombin Time 27.8 SEC (11.2-13.5)
[2025-06-04 06:45] LABS: Alanine Aminotransferase 18 U/L (0-31); Albumin Level 4.4 g/dL (3.5-5.0); Alkaline Phosphatase 163 U/L (39-117); Anion Gap 22 (12-20); Aspartate Amino Transferase 62 U/L (5-31); Blood Urea Nitrogen 100 mg/dL (9-16); Calcium 9.9 mg/dL (8.4-10.2); Carbon Dioxide 23 mmol/L (22-29); Chloride 100 mmol/L (96-108); Creatinine Clr Calc Pharmacy 11.4; Estimated Glomerular Filt Rate 9; Magnesium 2.8 mg/dL (1.6-2.6); Potassium 3.3 mmol/L (3.3-5.1); Sodium 142 mmol/L (135-145); Total Protein 6.5 g/dL (6.5-8.0)
[2025-06-04 07:52] LABS: Glucose, Whole Blood 97 mg/dL (60-115)
[2025-06-04] MEDS: Dorzolamide HCl 2 % Ophth Sol 10 ML DRPBTL 1 DROP EYE-BOTH ×2 (11:15→20:55)
[2025-06-04] MEDS: Brimonidine Tartrate 0.2% Oph 5 ML BOTTLE 1 DROP EYE-BOTH ×2 (11:16→20:54)
[2025-06-04] MEDS: Furosemide 100 MG/10 ML VIAL 80 MG IVPUSH ×2 (11:16→17:42)
[2025-06-04 11:48] LABS: Glucose, Whole Blood 81 mg/dL (60-115)
--- NOTE | 2025-06-04 12:52 | PM.PNNEP ---
Subjective Subjective Date of Service: 06/04/25 Principal diagnosis: Decompensated heart failure, renal failure Interval history: Creatinine trending down, down to 4.84 this morning Urine output about 1440 cc Blood pressure is stable Physical Exam Vital Signs: Vital Signs: Last Vital Signs Temp 97.5 F 06/04/25 03:25 Pulse 52 06/04/25 11:17 Resp 20 06/04/25 11:17 BP 147/69 H 06/04/25 11:17 Pulse Ox 99 06/04/25 11:17 O2 Del Method Nasal Cannula 06/04/25 11:17 O2 Flow Rate 3 06/04/25 11:17 FiO2 35 05/29/25 09:30 Oxygen Flow Rate 4 06/01/25 22:48 BMI result Body Mass Index 34.6 General: Elderly lady in somewhat acute distress, ill appearing Nutritional Appearance: well nourished and overweight Eyes: appearance normal, both eyes and all related structures; Alignment and Position: alignment normal and position normal Neck: No lymphadenopathy, no thyromegaly Resp: bilateral air entry equal, crackles heard in the lung bases Cardio: Regular rate, regular rhythm; Heart sounds: S1 normal heart sound present and S2 normal heart sound present GI: soft, nontender, no guarding, no hepatosplenomegaly : bladder normal to inspection, bladder normal to palpation, no renal angle tenderness Skin: no rashes or lesions noted and elasticity normal Neuro: Slightly confused, no focal deficits, moves all extremities Objective Data Labs 06/04/25 06:01 06/04/25 06:01 Labs: Laboratory Results - last 24 hr 06/03/25 06/03/25 06/03/25 12:21 16:34 19:59 WBC RBC Hgb Hct MCV MCH MCHC RDW Plt Count MPV Immature Gran % (Auto) Neut % (Auto) Lymph % (Auto) [place] % (Auto) Eos % (Auto) Baso % (Auto) Lymph # (Auto) [place] # (Auto) Eos # (Auto) Baso # (Auto) Abs Immat Gran (auto) Absolute Neuts (auto) Absolute Nucleated RBC Nucleated RBC % (auto) PT INR Sodium 141 Potassium 3.6 Chloride 99 Carbon Dioxide 22 Anion Gap 24 H BUN 92 H Creatinine 5.27 H* Estim Creat Clear Calc 10.5 Estimated GFR 8 POC Glucose 88 161 H Random Glucose 173 H Fasting Glucose Calcium 9.7 Magnesium Total Bilirubin 3.7 H AST 59 H ALT 22 Alkaline Phosphatase 158 H Total Protein 6.8 Albumin 4.7 06/04/25 06/04/25 06/04/25 06:01 07:42 11:41 WBC 11.9 H RBC 3.43 L Hgb 9.7 L Hct 30.2 L MCV 88.0 MCH 28.3 MCHC 32.1 RDW 18.2 H Plt Count 155 L MPV 10.7 Immature Gran % (Auto) 0.8 H Neut % (Auto) 73.3 H Lymph % (Auto) 11.0 L [place] % (Auto) 9.2 Eos % (Auto) 4.7 H Baso % (Auto) 1.0 Lymph # (Auto) 1.3 [place] # (Auto) 1.1 Eos # (Auto) 0.6 H Baso # (Auto) 0.1 Abs Immat Gran (auto) 0.09 H Absolute Neuts (auto) 8.7 H Absolute Nucleated RBC 0.030 H Nucleated RBC % (auto) 0.3 H PT 27.8 H INR 2.3 H Sodium 142 Potassium 3.3 Chloride 100 Carbon Dioxide 23 Anion Gap 22 H BUN 100 H Creatinine 4.84 H* Estim Creat Clear Calc 11.4 Estimated GFR 9 POC Glucose 97 81 Random Glucose Fasting Glucose 102 H Calcium 9.9 Magnesium 2.8 H Total Bilirubin 2.7 H AST 62 H ALT 18 Alkaline Phosphatase 163 H Total Protein 6.5 Albumin 4.4 Microbiology Microbiology Results: Microbiology 05/25/25 17:46 Blood - Venous Blood Culture - Final No growth after 5 days. 05/25/25 17:36 Blood - Venous Blood Culture - Final No growth after 5 days. 05/25/25 20:59 Urine clean catch Urine Culture - Final Geovanna glabrata Procedures Date of Service Date of Service: 06/04/25 Assessment & Plan Assessment and plan (1) PREM (acute kidney injury): Status: Acute (2) Hypokalemia: Status: Acute Plan 65-year-old lady with underlying multiple sclerosis with spasms, CAD status post LAD stenting, subdural hematoma, chronic kidney disorder, pulmonary emboli, AFib on Eliquis with tachy-dalia syndrome status post pacemaker, CVA, type 2 diabetes mellitus, Raynaud's admitted on 05/25/2025 with malaise, acute kidney injury in the setting of hypotension needing vasopressor support. Acute kidney injury: Apparently patient has been hospitalized since the beginning of March initially at [facility] later transferred to [facility] from there was discharged to a rehab, and later at [facility]. This time admitted due to PREM in the setting of septic shock possibly secondary to acute tubular necrosis, she had similar presentation when she was at [facility] but unclear if she received any renal replacement therapy. CT abdomen and pelvis showed normal size kidneys, no obstruction. Urinalysis showing 3+ blood, 3+ protein, greater than 20 RBC, greater than 50 WBCs possibly due to UTI,UPCR less than 1 g. Her creatinine has stabilized her slowly improving, down to 4.8 from a peak of 5.72, urine output has increased to about 1440 mL. Continue Lasix 80 mg b.i.d. along with metolazone to alleviate respiratory symptoms Given that she is hospitalized for over 3 months now, she is malnourished and cachectic, given her overall deconditioning and comorbid conditions it is less likely the patient would tolerate renal replacement therapy and would not change her overall survival; she has a very poor prognosis and this has been explained in detail to patient and the family. Acute Hypokalemia: Secondary to diuresis Replete as per protocol, can also add scheduled KCl 40 mg daily as long as she is getting diuretics Time Spent With Patient Time: Total time managing care of this patient today ____ minutes. Progress Note: Quality Stroke Does the patient have a stroke diagnosis?: No
--- NOTE | 2025-06-04 14:51 | HO.PM.IMPN ---
Subjective Subjective Date of Service: 06/04/25 Interval History: More alert today. Tolerant of diet. Continues to make urine Review of Systems Unable to obtain secondary to mild confusion Physical Exam Vital Signs: Vital Signs: Last Vital Signs Temp 97.5 F 06/04/25 03:25 Pulse 52 06/04/25 11:17 Resp 20 06/04/25 11:17 BP 147/69 H 06/04/25 11:17 Pulse Ox 99 06/04/25 11:17 O2 Del Method Nasal Cannula 06/04/25 11:17 O2 Flow Rate 3 06/04/25 11:17 FiO2 35 05/29/25 09:30 Oxygen Flow Rate 4 06/01/25 22:48 BMI result Body Mass Index 34.6 Const: Other: Awake responsive but difficulty speaking. Ill-appearing. Resp: Other: Diminished at bases scattered wheezes throughout Cardio: Other: No S4; positive S1-S2; no S3 murmurs rubs or gallops GI: Other: Soft nontender nondistended normoactive bowel sounds Skin: Other: Multiple ecchymotic area upper limbs and lower limbs; fingertips purple (history of Raynaud's disease) Extrem: Other: No edema bilaterally Objective Data Active Medications Amantadine HCl (Amantadine Hcl 100 Mg Capsule) 200 mg PO Fr@0900 [facility] Artificial Tears (Artificial Tears 15 Ml Drops) 2 drop EYE-RIGHT Q4H PRN PRN Reason: Dry Eyes Brimonidine Tartrate (Brimonidine Tartrate 0.2% Oph 5 Ml Bottle) 1 drop EYE-BOTH BID [facility] Last Admin: 06/04/25 11:16 Dose: 1 drop Documented By: HERMILO Dextrose (Dextrose 50 % 25 Gm/50 Ml Syringe) 25 gm IVPUSH Q15M PRN; Protocol PRN Reason: per Hypoglycemia Standing Ord. Last Admin: 06/03/25 07:11 Dose: 25 gm Documented By: HERMILO Diazepam (Diazepam 5 Mg Tablet) 5 mg PO Q8H PRN PRN Reason: Anxiety/spasm Diazepam (Diazepam 10 Mg/2 Ml Cartridge) 2.5 mg IVPUSH Q4H PRN PRN Reason: anxiety Dorzolamide HCl (Dorzolamide Hcl 2 % Ophth Doris 10 Ml Drpbtl) 1 drop EYE-BOTH BID [facility] Last Admin: 06/04/25 11:15 Dose: 1 drop Documented By: HERMILO Fluconazole (Fluconazole 100 Mg Tablet) 100 mg PO DAILY [facility] Stop: 06/12/25 11:59 Last Admin: 06/04/25 11:16 Dose: 100 mg Documented By: HERMILO Furosemide (Furosemide 100 Mg/10 Ml Vial) 80 mg IVPUSH BID@0900,1800 [facility]; Protocol Last Admin: 06/04/25 11:16 Dose: 80 mg Documented By: HERMILO Insulin Human Lispro (Insulin Lispro 100 Unit/Ml 3 Ml Vial) 0 unit SUBCUT QIDACHS [facility]; Protocol Last Admin: 06/04/25 11:42 Dose: Not Given Documented By: HERMILO Non-Admin Reason: No Insulin Coverage Latanoprost (Latanoprost 0.005 % Ophth Doris 2.5 Ml Drops) 1 drop EYE-BOTH BEDTIME [facility] Last Admin: 06/03/25 20:41 Dose: 1 drop Documented By: CHEMA Levothyroxine Sodium (Levothyroxine Sodium 75 Mcg Tablet) 75 mcg PO DAILY@0600 [facility] Last Admin: 06/04/25 06:33 Dose: 75 mcg Documented By: CHEMA Lidocaine (Lidocaine 4 % Patch Adh..Patch) 2 patch TRANSDERMA DAILY [facility]; Protocol Last Admin: 06/04/25 11:17 Dose: Not Given Documented By: HERMILO Non-Admin Reason: Patient Refused Metolazone (Metolazone 5 Mg Tablet) 5 mg PO DAILY [facility] On Hold: 06/02/25 00:56 Last Admin: 06/01/25 08:29 Dose: 5 mg Documented By: CRESENCIO Morphine Sulfate (Morphine Sulfate 4 Mg/Ml Cartridge) 2 mg IVPUSH Q2H PRN; Protocol PRN Reason: anxiety/restlessness Last Admin: 06/03/25 13:59 Dose: 2 mg Documented By: HERMILO Multi-Ingred Cream/Lotion/Oil/Oint (Artificial Tears Ophth Oint 3.5 Gm Tube) 1 appl EYE-BOTH TID PRN; Protocol PRN Reason: Dry Eyes Last Admin: 06/02/25 20:32 Dose: 1 appl Documented By: SANDRA Ondansetron HCl (Ondansetron Hcl 4 Mg/2 Ml Vial) 4 mg IVPUSH Q8H PRN PRN Reason: Nausea and Vomiting Pantoprazole Sodium (Pantoprazole Sodium 40 Mg/10 Ml Vial) 40 mg IVPUSH BID@0630,1630 [facility] Last Admin: 06/04/25 06:31 Dose: 40 mg Documented By: BUSSIEL Sodium Chloride (0.9 % Sodium Chloride Flush 3 Ml Syringe) 3 ml IVFLUSH QSHIFT [facility] Last Admin: 06/04/25 11:15 Dose: 3 ml Documented By: HERMILO Labs 06/04/25 06:01 06/04/25 06:01 Labs: Laboratory Results - last 24 hr 06/03/25 06/03/25 06/04/25 16:34 19:59 06:01 MCV 88.0 MCH 28.3 MCHC 32.1 RDW 18.2 H Plt Count 155 L MPV 10.7 Immature Gran % (Auto) 0.8 H Neut % (Auto) 73.3 H Lymph % (Auto) 11.0 L [place] % (Auto) 9.2 Eos % (Auto) 4.7 H Baso % (Auto) 1.0 Lymph # (Auto) 1.3 [place] # (Auto) 1.1 Eos # (Auto) 0.6 H Baso # (Auto) 0.1 Abs Immat Gran (auto) 0.09 H Absolute Neuts (auto) 8.7 H Absolute Nucleated RBC 0.030 H Nucleated RBC % (auto) 0.3 H PT 27.8 H INR 2.3 H Anion Gap 22 H Estim Creat Clear Calc 11.4 Estimated GFR 9 POC Glucose 88 161 H Fasting Glucose 102 H Calcium 9.9 Magnesium 2.8 H Total Bilirubin 2.7 H AST 62 H ALT 18 Alkaline Phosphatase 163 H Total Protein 6.5 Albumin 4.4 06/04/25 06/04/25 07:42 11:41 MCV MCH MCHC RDW Plt Count MPV Immature Gran % (Auto) Neut % (Auto) Lymph % (Auto) [place] % (Auto) Eos % (Auto) Baso % (Auto) Lymph # (Auto) [place] # (Auto) Eos # (Auto) Baso # (Auto) Abs Immat Gran (auto) Absolute Neuts (auto) Absolute Nucleated RBC Nucleated RBC % (auto) PT INR Anion Gap Estim Creat Clear Calc Estimated GFR POC Glucose 97 81 Fasting Glucose Calcium Magnesium Total Bilirubin AST ALT Alkaline Phosphatase Total Protein Albumin Assessment and Plan Plan 65 year old women initially admitted to ICU for Shortness of breath and feeling unwell overall. She was hypotensive in the ED and transferred to the ICU for vasopressor support due to poor initial response to IV fluids. Has declined since transfer to floor. Now laboratory evaluation suggestive of DIC along with some rectal bleeding 1. 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 No further blood products are indicated -INR remains elevated...Vit K PO 2. Acute renal failure -renal function continues to improve only slightly -not a candidate for dialysis at this time --renal to follow -follow renals/divalents 3..Acute respiratory failure secondary to volume overload -O2 requirement increased. -hold Bumex drip pending discussion with renal -follow renals/divalents 4.GI bleed (in backdrop no colitis on abd ct, negative cdiff of hyperprothrombinemia/question DIC) -melanomatous overnight -hemoglobin 7.5 overnight. 1 unit packed red cells ordered -follow H&H 5. Diabetes type 2 -acceptable control off therapy -lispro correctional scale -add back therapies when appropriate (intake increases) 6.UTI -fungal in nature -complete course of 7. Paroxysmal atrial fibrillation -currently examined sinus rhythm -hold Eliquis at this time secondary to bleeding -adjust therapies as clinically indicated DNR/DNI. Discussion with patient who is alert and oriented. 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 Expresses wishes for DNR DNI and palliative care. Attempted to explain to son Olvin over the phone however patient became agitated and hung up. States he is coming to the hospital. We will update when here. Son essentially told that despite our best therapies as mother continues to decline and these are her wishes. Quality Stroke Does the patient have a stroke diagnosis?: No VTE Prior VTE?: No VTE Risk Level:: Medical - moderate - high VTE Device Contraindication: Treatment Not Indicated VTE Drug Contraindication: N/A - Med Ordered
[2025-06-04] MEDS: Phytonadione (Vit K1) Oral 10 MG/ML AMPUL PO (16:21)
[2025-06-04 16:27] LABS: Glucose, Whole Blood 62 mg/dL (60-115)
[2025-06-04 17:32] LABS: Glucose, Whole Blood 141 mg/dL (60-115)
[2025-06-04 19:22] LABS: Glucose, Whole Blood 171 mg/dL (60-115)
[2025-06-04] MEDS: Latanoprost 0.005 % Ophth Sol 2.5 ML DROPS 1 DROP EYE-BOTH (20:55)
[2025-06-05 03:31] VITALS: BP 130/58; PULSE 50; RESP 20; TEMP 37.1; O2SAT 96
[2025-06-05 05:48] LABS: Glucose, Whole Blood 79 mg/dL (60-115)
[2025-06-05 06:00] VITALS: BMI 34.2
--- NOTE | 2025-06-05 06:11 | PC.NURSE ---
pt expressed concern about blood sugar, POC 79, pt drinking sprite at bedside
[2025-06-05 07:33] LABS: MANUAL DIFF FLAG NO
[2025-06-05 07:40] LABS: INTERNATIONAL NORM RATIO 1.9 (0.9-1.1); Prothrombin Time 22.4 SEC (11.2-13.5)
[2025-06-05] MEDS: Furosemide 100 MG/10 ML VIAL 80 MG IVPUSH ×2 (07:45→17:56)
[2025-06-05] MEDS: Dorzolamide HCl 2 % Ophth Sol 10 ML DRPBTL 1 DROP EYE-BOTH ×2 (07:45→21:46)
[2025-06-05] MEDS: Brimonidine Tartrate 0.2% Oph 5 ML BOTTLE 1 DROP EYE-BOTH ×2 (07:45→21:46)
[2025-06-05] MEDS: 0.9 % Sodium Chloride Flush 3 ML SYRINGE IVFLUSH (07:45)
[2025-06-05 07:46] LABS: Glucose, Whole Blood 66 mg/dL (60-115)
[2025-06-05 07:54] LABS: Hematocrit 29.8 % (37.0-47.0); Hemoglobin 9.5 g/dl (12.0-16.0); Imm Gran Abs Auto 0.10 X10*3/uL (0.00-0.03); Imm Gran Pct Auto 0.9 % (0.0-0.4); Lymphocytes Absolute Auto 1.6 X10*3/uL (1.2-4.9); Mean Corpuscular HGB Conc 31.9 g/dl (31.0-35.0); Mean Corpuscular Hemoglobin 27.8 pg (27.0-33.0); Mean Corpuscular Volume 87.1 fL (80.0-98.0); NRBC Abs Auto 0.000 X10*3/uL (0.0-0.012); NRBC Pct Auto 0.0 /100WBC (0.0-0.2); Platelet Count 134 X10*3/uL (160-400); Red Blood Count 3.42 X10*6/uL (4.20-5.50); White Blood Count 10.8 X10*3/uL (4.8-10.8)
[2025-06-05 08:00] VITALS: BP 168/74; PULSE 51; RESP 16; O2SAT 93
[2025-06-05 08:31] LABS: Alanine Aminotransferase 18 U/L (0-31); Albumin Level 4.4 g/dL (3.5-5.0); Alkaline Phosphatase 178 U/L (39-117); Anion Gap 21 (12-20); Aspartate Amino Transferase 61 U/L (5-31); Blood Urea Nitrogen 104 mg/dL (9-16); Calcium 9.9 mg/dL (8.4-10.2); Carbon Dioxide 27 mmol/L (22-29); Chloride 99 mmol/L (96-108); Creatinine Clr Calc Pharmacy 11.1; Estimated Glomerular Filt Rate 9; Magnesium 2.6 mg/dL (1.6-2.6); Potassium 2.8 mmol/L (3.3-5.1); Sodium 144 mmol/L (135-145); Total Protein 6.6 g/dL (6.5-8.0)
[2025-06-05 11:34] LABS: Glucose, Whole Blood 147 mg/dL (60-115)
[2025-06-05 12:00] VITALS: BP 148/63; PULSE 50; RESP 16; TEMP 36.5
--- NOTE | 2025-06-05 14:53 | P.PNIM_ITS ---
Subjective Subjective Date of Service: 06/05/25 Interval History: Continues to decline. Now accepting hospice Review of Systems Unable to obtain Physical Exam 2 Vital Signs: Vital Signs: Last Vital Signs Temp 97.7 F 06/05/25 12:00 Pulse 50 06/05/25 12:00 Resp 16 06/05/25 12:00 BP 148/63 H 06/05/25 12:00 Pulse Ox 93 06/05/25 08:00 O2 Del Method Nasal Cannula 06/05/25 08:00 O2 Flow Rate 3 06/05/25 08:00 FiO2 35 05/29/25 09:30 Oxygen Flow Rate 4 06/01/25 22:48 BMI result Body Mass Index 34.2 Const: Other: Ill-appearing Resp: Other: Diminished throughout Cardio: Other: No S4; positive S1-S2; no S3 murmurs rubs or gallops GI: Other: Soft nontender nondistended normoactive bowel sounds Extrem: Other: No edema bilaterally Objective Data Active Medications Amantadine HCl (Amantadine Hcl 100 Mg Capsule) 200 mg PO Fr@0900 [facility] Artificial Tears (Artificial Tears 15 Ml Drops) 2 drop EYE-RIGHT Q4H PRN PRN Reason: Dry Eyes Brimonidine Tartrate (Brimonidine Tartrate 0.2% Oph 5 Ml Bottle) 1 drop EYE- BOTH BID [facility] Last Admin: 06/05/25 07:45 Dose: 1 drop Documented By: HERMILO Dextrose (Dextrose 50 % 25 Gm/50 Ml Syringe) 25 gm IVPUSH Q15M PRN; Protocol PRN Reason: per Hypoglycemia Standing Ord. Last Admin: 06/05/25 07:45 Dose: 25 gm Documented By: HERMILO Diazepam (Diazepam 5 Mg Tablet) 5 mg PO Q8H PRN PRN Reason: Anxiety/spasm Last Admin: 06/05/25 12:36 Dose: 5 mg Documented By: HERMILO Diazepam (Diazepam 10 Mg/2 Ml Cartridge) 2.5 mg IVPUSH Q4H PRN PRN Reason: anxiety Dorzolamide HCl (Dorzolamide Hcl 2 % Ophth Doris 10 Ml Drpbtl) 1 drop EYE-BOTH BID [facility] Last Admin: 06/05/25 07:45 Dose: 1 drop Documented By: HERMILO Fluconazole (Fluconazole 100 Mg Tablet) 100 mg PO DAILY [facility] Stop: 06/12/25 11:59 Last Admin: 06/05/25 07:45 Dose: 100 mg Documented By: HERMILO Furosemide (Furosemide 100 Mg/10 Ml Vial) 80 mg IVPUSH BID@0900,1800 [facility]; Protocol Last Admin: 06/05/25 07:45 Dose: 80 mg Documented By: HERMILO Insulin Human Lispro (Insulin Lispro 100 Unit/Ml 3 Ml Vial) 0 unit SUBCUT QIDACHS [facility]; Protocol Last Admin: 06/05/25 11:14 Dose: Not Given Documented By: HERMILO Non-Admin Reason: No Insulin Coverage Latanoprost (Latanoprost 0.005 % Ophth Doris 2.5 Ml Drops) 1 drop EYE-BOTH BEDTIME [facility] Last Admin: 06/04/25 20:55 Dose: 1 drop Documented By: MARYANN Levothyroxine Sodium (Levothyroxine Sodium 75 Mcg Tablet) 75 mcg PO DAILY@0600 [facility] Last Admin: 06/05/25 05:21 Dose: 75 mcg Documented By: MARYANN Lidocaine (Lidocaine 4 % Patch Adh..Patch) 2 patch TRANSDERMA DAILY [facility]; Protocol Last Admin: 06/05/25 07:46 Dose: Not Given Documented By: HERMILO Non-Admin Reason: Patient Refused Metolazone (Metolazone 5 Mg Tablet) 5 mg PO DAILY [facility] On Hold: 06/02/25 00:56 Last Admin: 06/01/25 08:29 Dose: 5 mg Documented By: CRESENCIO Morphine Sulfate (Morphine Sulfate 4 Mg/Ml Cartridge) 2 mg IVPUSH Q2H PRN; Protocol PRN Reason: anxiety/restlessness Last Admin: 06/05/25 10:43 Dose: 2 mg Documented By: HERMILO Multi-Ingred Cream/Lotion/Oil/Oint (Artificial Tears Ophth Oint 3.5 Gm Tube) 1 appl EYE-BOTH TID PRN; Protocol PRN Reason: Dry Eyes Last Admin: 06/02/25 20:32 Dose: 1 appl Documented By: SANDRA Ondansetron HCl (Ondansetron Hcl 4 Mg/2 Ml Vial) 4 mg IVPUSH Q8H PRN PRN Reason: Nausea and Vomiting Sodium Chloride (0.9 % Sodium Chloride Flush 3 Ml Syringe) 3 ml IVFLUSH QSHIFT [facility] Last Admin: 06/05/25 07:45 Dose: 3 ml Documented By: HERMILO Labs 06/05/25 06:58 06/05/25 06:58 Labs: Laboratory Results - last 24 hr 06/04/25 06/04/25 06/04/25 16:14 17:28 19:11 MCV MCH MCHC RDW Plt Count MPV Immature Gran % (Auto) Neut % (Auto) Lymph % (Auto) [place] % (Auto) Eos % (Auto) Baso % (Auto) Lymph # (Auto) [place] # (Auto) Eos # (Auto) Baso # (Auto) Abs Immat Gran (auto) Absolute Neuts (auto) Absolute Nucleated RBC Nucleated RBC % (auto) PT INR Anion Gap Estim Creat Clear Calc Estimated GFR POC Glucose 62 141 H 171 H Fasting Glucose Calcium Magnesium Total Bilirubin AST ALT Alkaline Phosphatase Total Protein Albumin 06/05/25 06/05/25 06/05/25 05:40 06:58 07:34 MCV 87.1 MCH 27.8 MCHC 31.9 RDW 18.6 H Plt Count 134 L MPV 11.3 Immature Gran % (Auto) 0.9 H Neut % (Auto) 68.0 Lymph % (Auto) 14.5 L [place] % (Auto) 9.9 Eos % (Auto) 5.7 H Baso % (Auto) 1.0 Lymph # (Auto) 1.6 [place] # (Auto) 1.1 Eos # (Auto) 0.6 H Baso # (Auto) 0.1 Abs Immat Gran (auto) 0.10 H Absolute Neuts (auto) 7.3 Absolute Nucleated RBC 0.000 Nucleated RBC % (auto) 0.0 PT 22.4 H INR 1.9 H Anion Gap 21 H Estim Creat Clear Calc 11.1 Estimated GFR 9 POC Glucose 79 66 Fasting Glucose 83 Calcium 9.9 Magnesium 2.6 Total Bilirubin 2.6 H AST 61 H ALT 18 Alkaline Phosphatase 178 H Total Protein 6.6 Albumin 4.4 06/05/25 10:43 MCV MCH MCHC RDW Plt Count MPV Immature Gran % (Auto) Neut % (Auto) Lymph % (Auto) [place] % (Auto) Eos % (Auto) Baso % (Auto) Lymph # (Auto) [place] # (Auto) Eos # (Auto) Baso # (Auto) Abs Immat Gran (auto) Absolute Neuts (auto) Absolute Nucleated RBC Nucleated RBC % (auto) PT INR Anion Gap Estim Creat Clear Calc Estimated GFR POC Glucose 147 H Fasting Glucose Calcium Magnesium Total Bilirubin AST ALT Alkaline Phosphatase Total Protein Albumin Assessment and Plan (1) Hyperprothrombinemia: Status: Acute (2) Decompensated heart failure: Status: Acute Plan 65 year old women initially admitted to ICU for Shortness of breath and feeling unwell overall. She was hypotensive in the ED and transferred to the ICU for vasopressor support due to poor initial response to IV fluids. Has declined since transfer to floor. Now laboratory evaluation suggestive of DIC along with some rectal bleeding 1. Acute renal failure/DIC/acute respiratory failure -patient and family now in agreement. . . hospice -case management we will orchestrate hospice Quality Stroke Does the patient have a stroke diagnosis?: No VTE Prior VTE?: No VTE Risk Level:: Medical - moderate - high VTE Device Contraindication: Treatment Not Indicated VTE Drug Contraindication: N/A - Med Ordered
[2025-06-05 16:00] VITALS: BP 132/58; PULSE 55; RESP 15; TEMP 36.7; O2SAT 100
[2025-06-05 16:08] LABS: Glucose, Whole Blood 101 mg/dL (60-115)
[2025-06-05 17:56] VITALS: BP 118/68
[2025-06-05 19:40] VITALS: BP 118/63; PULSE 68; RESP 20; TEMP 37; O2SAT 94
[2025-06-05 20:38] LABS: Glucose, Whole Blood 113 mg/dL (60-115)
[2025-06-05] MEDS: Latanoprost 0.005 % Ophth Sol 2.5 ML DROPS 1 DROP EYE-BOTH (21:46)
[2025-06-06] VITALS: BP 147/98; PULSE 95; RESP 20; TEMP 36.6
[2025-06-06 04:00] VITALS: BP 111/59; PULSE 52; RESP 20; TEMP 36.7; O2SAT 97
[2025-06-06 06:00] VITALS: BMI 28.2
[2025-06-06 07:19] LABS: Glucose, Whole Blood 140 mg/dL (60-115)
[2025-06-06 07:26] VITALS: BP 114/59; PULSE 51; RESP 20; TEMP 36.6; O2SAT 92
[2025-06-06 07:59] LABS: Magnesium 2.4 mg/dL (1.6-2.6)
[2025-06-06] MEDS: Brimonidine Tartrate 0.2% Oph 5 ML BOTTLE 1 DROP EYE-BOTH (09:23)
[2025-06-06] MEDS: Furosemide 100 MG/10 ML VIAL 80 MG IVPUSH ×2 (09:23→17:41)
[2025-06-06] MEDS: Dorzolamide HCl 2 % Ophth Sol 10 ML DRPBTL 1 DROP EYE-BOTH (09:24)
[2025-06-06] MEDS: 0.9 % Sodium Chloride Flush 3 ML SYRINGE IVFLUSH (09:24)
--- NOTE | 2025-06-06 09:52 | MHC.CM.PN ---
Addendum entered by Daniella Ferris 06/06/25 13:24: PER DISCUSSION WITH THE [facility], MD, PT, AND SON, PT WILL DC HOME AT 1700 HOURS TODAY VIA THERESE BLS PRESCRIPTIONS WILL BE BROUGHT TO ROOM PRIOR TO DC AND SENT HOME WITH PT SON WILL BE HOME TO RECEIVE O2 DELIVERY C RN WILL BE AT PTS HOME TOMORROW TO PROVIDE SOC AND GET ANY FURTHER DME NEEDED ARRANGED Addendum entered by Daniella Ferris 06/06/25 12:44: CATALINO RECEIVED A CALL FROM PTS SON WHO REPORTS THE PT WANTS TO GO HOME TODAY AND HE ALSO WANTS HER TO HE SAYS THE PLAN IS FOR PT TO STAY IN THE [facility] AND HOSPICE TO ADMIT TOMORROW HE SAYS THE ONLY WORRY IS THAT THE HOSPITALIST WOULD NEED TO ORDER HER MEDS AT DC THE [facility] RN MET WITH CM WELL, THE ABOVE PLAN WAS CONFIRMED AND SHE STATES O2 WILL BE DELIVERED TODAY BUT SHE IS UNSURE OF TIME PTS SON WILL GO HOME AND WAIT FOR O2 NOW MESSAGE SENT TO HOSPITALIST, AWAITING RESPONSE Original Note: CATALINO RECEIVED A CALL FROM PTS SON, SULAIMAN, WHO STATES HE JUST GOT A CALL FROM THE PT WHO SAID SHE WISHED HE HAD STAYED LAST NIGHT HE SAYS HE IS WORRIED AND WONDERS IF ANYTHING IS GOING ON CM CONTACTED PTS RN WHO STATES THE PT WAS JUST ASKING THE PT TO COME IN AND COMPLAINING ABOUT HER NIGHT, BUT THERE ARE NO SIGNIFICANT CHANGES IN CONDITION CM CALLED SULAIMAN BACK [phone] AND PROVIDED THE ABOVE INFORMATION HE SAYS HE IS WORRIED ABOUT WHAT HER NIGHT WAS LIKE BECAUSE SHE HAS BEEN COMPLAINING OF LONG WAIT TIMES AND RUDE STAFF HE SAYS THERE IS A CAMERA IN HER ROOM, BUT IT IS NOT RECORDING 24/7 CM INFORMED HIM THE CAMERA IS MONITORED 24/7 HE ASKED CM TO BRING UP THE OVERNIGHT RECORDING, CATALINO INFORMED HIM THIS IS SOMETHING HE WOULD NEED TO ADDRESS WITH THE [facility] RN DIRECTOR SULAIMAN REPORTS HE IS ON HIS WAY
[2025-06-06 11:40] LABS: Glucose, Whole Blood 132 mg/dL (60-115)
--- NOTE | 2025-06-06 11:45 | PC.NURSE ---
CMT noted pt having Bigeminy. made aware.
[2025-06-06 11:49] VITALS: BP 120/98; PULSE 51; RESP 20; TEMP 36.7; O2SAT 92
--- NOTE | 2025-06-06 12:39 | P.PNNP_ITS ---
Subjective Subjective Date of Service: 06/06/25 Principal diagnosis: Decompensated heart failure, renal failure Interval history: Pending hospice eval Good urine output Physical Exam 2 Vital Signs: Vital Signs: Last Vital Signs Temp 98.0 F 06/06/25 11:49 Pulse 51 06/06/25 11:49 Resp 20 06/06/25 11:49 BP 120/98 H 06/06/25 11:49 Pulse Ox 92 06/06/25 11:49 O2 Del Method Nasal Cannula 06/06/25 11:49 O2 Flow Rate 2 06/06/25 11:49 FiO2 35 05/29/25 09:30 Oxygen Flow Rate 4 06/01/25 22:48 BMI result Body Mass Index 28.2 General: Elderly lady in moderate acute distress, chronic ill appearing Nutritional Appearance: Poor nourished and overweight Eyes: appearance normal, both eyes and all related structures; Alignment and Position: alignment normal and position normal Neck: No lymphadenopathy, no thyromegaly Resp: bilateral air entry equal, bibasilar crackles heard Cardio: Regular rate, regular rhythm; Heart sounds: S1 normal heart sound present and S2 normal heart sound present GI: soft, nontender, no guarding, no hepatosplenomegaly : bladder normal to inspection, bladder normal to palpation, no renal angle tenderness Skin: no rashes or lesions noted and elasticity normal Neuro: alert, oriented x 3, moves all extremities Objective Data Labs 06/05/25 06:58 06/05/25 06:58 Labs: Laboratory Results - last 24 hr 06/05/25 06/05/25 06/06/25 15:44 20:34 06:36 POC Glucose 101 113 Magnesium 2.4 06/06/25 06/06/25 07:16 11:36 POC Glucose 140 H 132 H Magnesium Microbiology Microbiology Results: Microbiology 05/25/25 17:46 Blood - Venous Blood Culture - Final No growth after 5 days. 05/25/25 17:36 Blood - Venous Blood Culture - Final No growth after 5 days. 05/25/25 20:59 Urine clean catch Urine Culture - Final Geovanna glabrata Procedures Date of Service Date of Service: 06/06/25 Assessment & Plan Assessment and plan (1) PREM (acute kidney injury): Status: Acute (2) Hypokalemia: Status: Acute Plan 65-year-old lady with underlying multiple sclerosis with spasms, CAD status post LAD stenting, subdural hematoma, chronic kidney disorder, pulmonary emboli, AFib on Eliquis with tachy-dalia syndrome status post pacemaker, CVA, type 2 diabetes mellitus, Raynaud's admitted on 05/25/2025 with malaise, acute kidney injury in the setting of hypotension needing vasopressor support. Acute kidney injury: Apparently patient has been hospitalized since the beginning of March initially at [facility] later transferred to [facility] from there was discharged to a rehab, and later at [facility]. This time admitted due to PREM in the setting of septic shock possibly secondary to acute tubular necrosis, she had similar presentation when she was at [facility] but unclear if she received any renal replacement therapy. CT abdomen and pelvis showed normal size kidneys, no obstruction. Urinalysis showing 3+ blood, 3+ protein, greater than 20 RBC, greater than 50 WBCs possibly due to UTI,UPCR less than 1 g. Her creatinine has stabilized her slowly improving, down to 4.8 from a peak of 5.72. Good urine output, about 1100 cc in the past 24 hours Continue Lasix 80 mg b.i.d. along with metolazone to alleviate respiratory symptoms Given that she is hospitalized for over 3 months now, she is malnourished and cachectic, given her overall deconditioning and comorbid conditions it is less likely the patient would tolerate renal replacement therapy and would not change her overall survival; she has a very poor prognosis and this has been explained in detail to patient and the family. Family is considering hospice, pending hospice eval which is very appropriate given her multiple comorbid condition which fails to improve despite 3 months of hospitalization Acute Hypokalemia: Secondary to diuresis Replete as per protocol, can also add scheduled KCl 40 mg daily as long as she is getting diuretics Time Spent With Patient Time: Total time managing care of this patient today ____ minutes. Progress Note: Quality Stroke Does the patient have a stroke diagnosis?: No
[2025-06-06] MEDS: diazePAM 10 MG/2 ML CARTRIDGE 2.5 MG IVPUSH ×2 (12:44→16:54)
--- NOTE | 2025-06-06 13:01 | MHC.SLORD ---
Speech Language Pathology Order Status: Pt transitioning to hospice, MD consulted, noted no further LOSS PREVENTION REPRESENTATIVE at this time.
--- NOTE | 2025-06-06 13:18 | MHC.CLN ---
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
--- NOTE | 2025-06-06 13:27 | PM.DS ---
DS: Providers Provider Date of admission: 05/25/25 20:00 Date of discharge: 06/06/25 Primary care physician: JANAK Cohen Consults: 05/25/25 22:41 Consult to Wound Care Routine Consulting Provider: [facility] Reason for consultation: ?stage II coccyx on admit Has provider been notified: Yes 05/26/25 00:50 Consult to Nephrology Routine Consulting Provider: [facility] Reason for consultation: Acute renal failure Has provider been notified: No 05/29/25 09:27 Consult to Gastroenterology Routine Consulting Provider: [facility] Reason for consultation: GI bleed 05/30/25 09:37 Consult to Cardiology Routine Consulting Provider: [facility] Reason for consultation: chf 05/30/25 16:01 Consult to Hospice Stat Comment: 06/02/25 00:50 Consult to Hematology / Oncology Routine Consulting Provider: [facility] Reason for consultation: DIC Has provider been notified: No DS: Diagnosis Discharge Diagnosis (1) End stage renal disease: Status: Acute DS: Summary Hospital Course Hospital Course: 65-year-old female with a past medical history significant for multiple sclerosis with spasm disorder, CAD with stenting of the LAD in 2012 , SDH, chronic kidney disorder, pulmonary embolism, paroxysmal atrial fibrillation (eliquis) , tachy-dalia syndrome s/p pacemaker,?CVA, type 2 diabetes, chronic pain disorder, Raynaud's syndrome, and recent admission 05/03/25 to 05/10/25 for UTI, PREM, and hypotension that required short stay in the ICU. ?She presented to emergency department with complaints of shortness of breath that started last night. ?Patient reported overall ?not feeling well?. In the emergency department she was noted to be hypotensive to systolic of 70s, but alert and oriented x3. Laboratory data was significant for serum potassium 5.9, BUN 56, creatinine 5.48, lactic 5.9, magnesium 4.1, troponin 122.5 with repeat 129.7, proBNP 34,599. Hospital Course She was weaned off pressors and transferred to the floor where she gradually declined. She got to the point of needing dialysis however patient did not want dialysis. Ultimately patient and family wish to go home on hospice. 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 Patient will be discharged home in hospice care Time Attestation Discharge Coordination Time (in mins): 35 Quality: Safe Use of Opioids Does Pt have an Active Cancer Diagnosis on the Problem List?: No Quality: Stroke Does the patient have a stroke diagnosis?: No Physical Exam Vital Signs: Vital Signs: Last Vital Signs Temp 98.0 F 06/06/25 11:49 Pulse 51 06/06/25 11:49 Resp 20 06/06/25 11:49 BP 120/98 H 06/06/25 11:49 Pulse Ox 92 06/06/25 11:49 O2 Del Method Nasal Cannula 06/06/25 11:49 O2 Flow Rate 2 06/06/25 11:49 FiO2 35 05/29/25 09:30 Oxygen Flow Rate 4 06/01/25 22:48 BMI result Body Mass Index 28.2 Const: Other: Ill-appearing Resp: Other: Diminished throughout Cardio: Other: No S4; positive S1-S2; no S3 murmurs rubs or gallops GI: Other: Soft nontender nondistended normoactive bowel sounds Extrem: Other: No edema bilaterally DS: Data Data Completed and Pending Completed studies during hospitalization [Text1]: Procedures Insertion of Pacemaker Lead into Right Atrium, Percutaneous Endoscopic Approach (04/18/25) Insertion of Pacemaker, Single Chamber into Chest Subcutaneous Tissue and Fascia, Open Approach (04/18/25) Introduction of Vasopressor into Peripheral Vein, Percutaneous Approach (05/03/25) Transfusion of Nonautologous Red Blood Cells into Peripheral Vein, Percutaneous Approach (05/03/25) Labs on day of discharge: Laboratory Results - last 24 hr 06/05/25 06/05/25 06/06/25 15:44 20:34 06:36 POC Glucose 101 113 Magnesium 2.4 06/06/25 06/06/25 07:16 11:36 POC Glucose 140 H 132 H Magnesium Discharge Plan Discharge Anticipated Discharge Date/Time: 06/06/25 13:14 Patient Disposition: Home Health Service Discharge Diagnosis: End-stage renal failure Referrals: Shahnaz RASHID [Outside] - 1 Day Referral Note: [facility] will provide start of care tomorrow. 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 diazepam [Valium] 5 mg tablet 5 mg PO Q2H PRN (Reason: anxiety) Qty: 30 0RF scopolamine base 1 mg over 3 days patch 3 day 1 patch transdermal Q3D Qty: 4 0RF Continued furosemide [Lasix] 40 mg tablet 40 mg PO BID@0900,1700 pantoprazole 20 mg tablet,delayed release (DR/EC) 20 mg PO DAILY@0630 PRN (Reason: Gastric Reflux) amantadine HCl 100 mg capsule 100 mg PO BID brimonidine 0.2 % drops 1 drp ophthalmic (eye) BID montelukast 10 mg tablet 10 mg PO DAILY dorzolamide 2 % drops 1 drp ophthalmic (eye) BID sildenafil (pulm.hypertension) 20 mg tablet 20 mg PO TID Eliquis 5 mg tablet 5 mg PO BID latanoprost 0.005 % Drops 1 drp OPHTHALMIC (EYE) BEDTIME levothyroxine 75 mcg Tablet 75 mcg PO DAILY@0600 lidocaine 4 % Adhesive Patch,Medicated 2 patch TOPICAL DAILY Rx Instructions: apply to back albuterol sulfate 2.5 mg /3 mL (0.083 %) Solution For Nebulization 2.5 mg INHALATION Q6H PRN (Reason: Wheezing) thiamine HCl (vitamin B1) 100 mg Tablet 100 mg PO DAILY dextroamphetamine-amphetamine [Adderall] 30 mg Tablet 30 mg PO DAILY camphor-menthol 0.5-0.5 % Lotion 1 appl TOPICAL BID PRN (Reason: Itching) aspirin 81 mg Tablet,Chewable 81 mg PO DAILY multivitamin with minerals Tablet 1 tab PO DAILY diazepam 5 mg tablet 5 mg PO Q8H PRN (Reason: Anxiety/spasm) sodium chloride 7 % Solution For Nebulization 1 inh INHALATION BID diclofenac sodium 1 % Gel 2 g TOPICAL QID Rx Instructions: apply to single elbow, wrist or hand; for hand includes palm/fingers/back of hand Trulicity 3 mg/0.5 mL Pen Injector 3 mg SUBCUT TU@0900 morphine 15 mg tablet 15 mg PO Q8H PRN (Reason: Pain) 10 Days Qty: 10 0RF Discharge Orders: Discharge Order (Routine); Ordered 06/06/25 Ordered By: Job Ware Diet: Advance to usual diet Activity on Discharge: As tolerated Stand Alone Forms: Patient Portal Discharge page Print Language: Divehi Care Plan Goals: Home with hospice care Health Concerns: Further plans and adjustment in care plan as per hospice Plan of Treatment: As per hospice Assessment: See discharge summary
[2025-06-06 14:55] VITALS: BP 129/80; PULSE 51; RESP 20; TEMP 36.4; O2SAT 90
[2025-06-06 15:25] LABS: Glucose, Whole Blood 153 mg/dL (60-115)
== END 2025-06-06 19:13 | disposition home health service (06) | DRG 682 ==
LOC: HO.ED 19:45 → HO.EDOVER 20:04 → HO.ICU 20:05 → HO.IMC 05-28 12:36
PROVIDERS: Family Medicine; Internal Medicine; Internal Medicine Hypertension Specialist; Internal Medicine Nephrology; Internal Medicine Pulmonary Disease; Nurse Practitioner Acute Care; Nurse Practitioner Family; Physician Assistant Medical; Student in an Organized Health Care Education/Training Program; Admitting Provider Registered Nurse Community Health; Emergency Provider Emergency Medicine; Visit Provider Hospitalist
DX: N18.6 End stage renal disease (principal); D65 Disseminated intravascular coagulation [defibrination syndrome]; J96.01 Acute respiratory failure with hypoxia; B37.49 Other urogenital candidiasis; R57.9 Shock, unspecified; K62.5 Hemorrhage of anus and rectum; N17.0 Acute kidney failure with tubular necrosis; I25.10 Atherosclerotic heart disease of native coronary artery without angina pectoris; E86.0 Dehydration; Z20.822 Contact with and (suspected) exposure to COVID-19; E87.5 Hyperkalemia; E11.22 Type 2 diabetes mellitus with diabetic chronic kidney disease; G35.D Multiple sclerosis, unspecified; I48.0 Paroxysmal atrial fibrillation; I49.5 Sick sinus syndrome; I08.1 Rheumatic disorders of both mitral and tricuspid valves; I50.9 Heart failure, unspecified; I73.00 Raynaud's syndrome without gangrene; R79.1 Abnormal coagulation profile; E11.649 Type 2 diabetes mellitus with hypoglycemia without coma; R31.29 Other microscopic hematuria; Z66 Do not resuscitate; Z95.0 Presence of cardiac pacemaker; Z95.5 Presence of coronary angioplasty implant and graft; Z86.711 Personal history of pulmonary embolism; Z87.891 Personal history of nicotine dependence; Z79.01 Long term (current) use of anticoagulants; Z79.82 Long term (current) use of aspirin; Z79.85 Long-term (current) use of injectable non-insulin antidiabetic drugs; Z79.890 Hormone replacement therapy; Z79.899 Other long term (current) drug therapy
CPT/HCPCS: 36415; 36600; 70450; 71045; 73620; 74176; 80048; 80053; 80076; 80307; 81001; 82040; 82140; 82272; 82550; 82570; 82803; 82947; 83605; 83735; 83880; 84100; 84156; 84300; 84443; 84484; 85014; 85018; 85025; 85027; 85379; 85384; 85610; 85730; 86021; 86160; 86850; 86900; 86901; 86923; 87040; 87086; 87088; 87493; 87507; 87637; 92526; 92610; 93005; 93308; 93970; 99285; J0696; J1171; J1450; J1644; J1938; J1939; J2270; J2470; J3360; J3430; J7120; P9012; P9016; P9017; P9047; Q9967

== ENCOUNTER → 2025-05-25 14:51 | Outpatient (BNV) | payer OTHER, SELFPAY | PROVIDERS: Emergency Provider Emergency Medicine; Visit Provider Internal Medicine Cardiovascular Disease | DX: R94.31 Abnormal electrocardiogram [ECG] [EKG] (principal); Z95.0 Presence of cardiac pacemaker | CPT/HCPCS: 93010 ==

== ENCOUNTER → 2025-05-25 15:02 | Outpatient (BNV) | payer OTHER, SELFPAY | PROVIDERS: Emergency Provider Emergency Medicine; Visit Provider Radiology Diagnostic Radiology | DX: R18.8 Other ascites (principal); G31.9 Degenerative disease of nervous system, unspecified; I67.89 Other cerebrovascular disease; R22.43 Localized swelling, mass and lump, lower limb, bilateral; J90 Pleural effusion, not elsewhere classified; Z95.9 Presence of cardiac and vascular implant and graft, unspecified; S90.31XA Contusion of right foot, initial encounter; M85.871 Other specified disorders of bone density and structure, right ankle and foot | CPT/HCPCS: 70450; 71045; 73620; 74176; 93970 ==

== ENCOUNTER 2025-05-25 20:00 | Outpatient (BNV) | payer OTHER, SELFPAY | END 2025-06-02 02:50 | PROVIDERS: Admitting Provider Registered Nurse Community Health; Emergency Provider Emergency Medicine; Visit Provider General Practice | DX: J98.11 Atelectasis (principal) | CPT/HCPCS: 71045 ==

== ENCOUNTER 2025-05-25 20:00 | Outpatient (BNV) | payer OTHER, SELFPAY | END 2025-05-30 07:00 | PROVIDERS: Admitting Provider Registered Nurse Community Health; Emergency Provider Emergency Medicine; Visit Provider Internal Medicine Cardiovascular Disease | DX: I51.7 Cardiomegaly (principal); I08.1 Rheumatic disorders of both mitral and tricuspid valves | CPT/HCPCS: 93308; 93321; 93325 ==

== ENCOUNTER 2025-05-25 20:00 | Outpatient (BNV) | payer OTHER, SELFPAY | END 2025-05-27 08:22 | PROVIDERS: Admitting Provider Registered Nurse Community Health; Emergency Provider Emergency Medicine; Visit Provider Internal Medicine Cardiovascular Disease | DX: I45.10 Unspecified right bundle-branch block (principal) | CPT/HCPCS: 93010 ==

== ENCOUNTER 2025-05-25 20:00 | Outpatient (BNV) | payer OTHER, SELFPAY | END 2025-05-29 12:54 | PROVIDERS: Admitting Provider Registered Nurse Community Health; Emergency Provider Emergency Medicine; Visit Provider Nuclear Medicine | DX: R18.8 Other ascites (principal); J90 Pleural effusion, not elsewhere classified | CPT/HCPCS: 74176 ==

== ENCOUNTER 2025-05-25 20:00 | Outpatient (BNV) | payer OTHER, SELFPAY | END 2025-05-28 17:33 | PROVIDERS: Admitting Provider Registered Nurse Community Health; Emergency Provider Emergency Medicine; Visit Provider Nuclear Medicine | DX: J90 Pleural effusion, not elsewhere classified (principal) | CPT/HCPCS: 71045 ==

== ENCOUNTER 2025-05-25 20:00 | Outpatient (BNV) | payer OTHER, SELFPAY | END 2025-05-30 02:45 | PROVIDERS: Admitting Provider Registered Nurse Community Health; Emergency Provider Emergency Medicine; Visit Provider Radiology Diagnostic Radiology | DX: J90 Pleural effusion, not elsewhere classified (principal) | CPT/HCPCS: 71045 ==

== ENCOUNTER 2025-05-25 20:00 | Outpatient (BNV) | payer OTHER, SELFPAY | END 2025-05-26 06:00 | PROVIDERS: Admitting Provider Registered Nurse Community Health; Emergency Provider Emergency Medicine; Visit Provider Internal Medicine Cardiovascular Disease | DX: R00.1 Bradycardia, unspecified (principal); R94.31 Abnormal electrocardiogram [ECG] [EKG]; Z95.0 Presence of cardiac pacemaker | CPT/HCPCS: 93010 ==

== ENCOUNTER → 2025-05-25 20:00 | Outpatient (BNV) | payer OTHER, SELFPAY | PROVIDERS: Admitting Provider Registered Nurse Community Health; Emergency Provider Emergency Medicine; Visit Provider Internal Medicine Pulmonary Disease | DX: I48.91 Unspecified atrial fibrillation (principal); N17.9 Acute kidney failure, unspecified; N39.0 Urinary tract infection, site not specified; G35.D Multiple sclerosis, unspecified; I25.10 Atherosclerotic heart disease of native coronary artery without angina pectoris | CPT/HCPCS: 99291 ==

== ENCOUNTER → 2025-05-25 20:00 | Outpatient (BNV) | payer OTHER, SELFPAY | PROVIDERS: Admitting Provider Registered Nurse Community Health; Emergency Provider Emergency Medicine; Visit Provider Internal Medicine | DX: K62.5 Hemorrhage of anus and rectum (principal); N17.9 Acute kidney failure, unspecified; R57.9 Shock, unspecified; I48.91 Unspecified atrial fibrillation; R79.1 Abnormal coagulation profile | CPT/HCPCS: 99223 ==

== ENCOUNTER → 2025-05-25 20:00 | Outpatient (BNV) | payer OTHER, SELFPAY | PROVIDERS: Admitting Provider Registered Nurse Community Health; Emergency Provider Emergency Medicine; Visit Provider Registered Nurse Community Health | DX: R57.9 Shock, unspecified (principal); N17.9 Acute kidney failure, unspecified; E87.5 Hyperkalemia; R60.0 Localized edema; E87.20 Acidosis, unspecified | CPT/HCPCS: 99291 ==

== ENCOUNTER → 2025-05-25 20:00 | Outpatient (BNV) | payer OTHER, SELFPAY | PROVIDERS: Admitting Provider Registered Nurse Community Health; Emergency Provider Emergency Medicine; Visit Provider Internal Medicine | DX: D65 Disseminated intravascular coagulation [defibrination syndrome] (principal) | CPT/HCPCS: 99222 ==

== ENCOUNTER → 2025-05-25 20:00 | Outpatient (BNV) | payer OTHER, SELFPAY | PROVIDERS: Admitting Provider Registered Nurse Community Health; Emergency Provider Emergency Medicine; Visit Provider Internal Medicine Hypertension Specialist | DX: N17.9 Acute kidney failure, unspecified (principal) | CPT/HCPCS: 99232 ==

== ENCOUNTER → 2025-05-25 20:00 | Outpatient (BNV) | payer OTHER, SELFPAY | PROVIDERS: Admitting Provider Registered Nurse Community Health; Emergency Provider Emergency Medicine; Visit Provider Internal Medicine Cardiovascular Disease | DX: I50.9 Heart failure, unspecified (principal); I25.10 Atherosclerotic heart disease of native coronary artery without angina pectoris; I48.91 Unspecified atrial fibrillation | CPT/HCPCS: 99223; 99233 ==

== ENCOUNTER → 2025-05-25 20:00 | Outpatient (BNV) | payer OTHER, SELFPAY | PROVIDERS: Admitting Provider Registered Nurse Community Health; Emergency Provider Emergency Medicine; Visit Provider Nurse Practitioner Acute Care | DX: R79.1 Abnormal coagulation profile (principal) | CPT/HCPCS: 99232; 99499 ==